=== PATIENT | female | born 1995 | race Caucasian/White ===

== ENCOUNTER 2022-05-06 16:23 | Outpatient (CLI) | payer OTHER, SELFPAY ==
[2022-05-06 17:39] LABS: Chloride* 105 mmol/L (96-114)
[2022-05-06 17:40] LABS: Sodium* 139 mmol/L (135-149)
[2022-05-06 17:41] LABS: Potassium* 4.7 mmol/L (3.6-5.1)
[2022-05-06 17:43] LABS: Alanine Aminotransferase* 36 U/L (4-35); Alkaline Phosphatase* 85 U/L (40-150); Aspartate Amino Transferase* 35 U/L (12-35); Bilirubin Total* 0.2 mg/dL (0.1-1.5); Blood Urea Nitrogen* 15 mg/dL (5-24); Carbon Dioxide* 26 mmol/L (20-32); Creatine Kinase* 270 U/L (41-117); Creatinine* 0.6 mg/dL (0.5-1.5); Estimated Glomerular Filt Rate 126.09; Glucose* 98 mg/dL (60-115); Total Protein* 6.5 g/dL (6.0-8.3)
[2022-05-06 18:14] LABS: TSH With Reflex to FT4* 0.665 uIU/mL (0.270-4.200)
[2022-05-06 18:33] LABS: Vitamin B12* 376 pg/mL (243-894)
== END 2022-05-06 16:24 | disposition home or self-care (01) ==
PROVIDERS: PCP Advanced Practice Midwife; Visit Provider Internal Medicine
DX: R53.83 Other fatigue (principal); R53.81 Other malaise; R11.0 Nausea; Z86.2 Personal history of diseases of the blood and blood-forming organs and certain disorders involving the immune mechanism
CPT/HCPCS: 80053; 82550; 82607; 83735; 84443

== ENCOUNTER 2024-07-16 09:29 | Outpatient (CLI) | payer OTHER, SELFPAY ==
--- OUTSIDE RECORDS SUMMARY | 2024-07-16 09:34 | XMS_ITS | Encounter Summary ---
Author Organization [place] Address [address] [place] [address]. [place] [address] Care Team Providers Care Tire Worker Name Role Phone No Ref-Primary, Physician Primary Care Provider Encounter Details Date Type Department Care Team (Late st Contact Info) Description 12/05/2021 Documentation Only INTERFACED REPORT Unknown, Provider Social History Tobacco Use Types Packs/Day Years Used Date Smoking Tobacco: Never Smokeless Tobacco: Never Alcohol Use Standard Drinks/Week Comments Never 0 (1 standard drink = 0.6 oz pur e alcohol) Sex and Gender Information Value Date Recorded Sex Assigned at Not on file Gender Identity Not on file Sexual Orientation Not on file COVID-19 Exposure Response Date Recorded In the last month, have you been in contact with someone who was confirmed or suspected to have Coronavirus / COVID-19? No / Unsure 12/08/2021 5:46 PM AUTO BODY REPAIR TECHNICIAN documented as of this encounter Plan of Treatment Not on file documented as of this encounter Visit Diagnoses Not on filedocumented in this encounter Care Teams Tire Worker Relationship Specialty Start Date End Date No Ref-Primary, Physician PCP - General 12/04/21 documented as of this encounter
--- OUTSIDE RECORDS SUMMARY | 2024-07-16 09:34 | XMS_ITS | Referral Summary ---
Author Organization [place] Address [address] [facility] [place] [address] Care Team Providers Care Laborer Cement Gun Placing Name Role Phone No Ref-Primary, Physician Primary Care Provider Allergies No known active allergies Medications Medication Sig Dispensed Refills Start Date End Date Status ibuprofen (ADVIL/MOTRIN) 200 MG tabletIndications:A cute appendicitis with localized peritonitis, unspecified whether abscess present, unspecified whether gangrene present, unspecified whether perforation present Take 3 tablets (600 mg) by mouth every 6 hours as needed for moderate pain 100 tablet 12/04/2021 Active Additional Information Patient not taking.Reported on 12/24/2023 acetaminophen (TYLENOL) 500 MG tabletIndications:A cute appendicitis with localized peritonitis, unspecified whether abscess present, unspecified whether gangrene present, unspecified whether perforation present Take 2 tablets (1,000 mg) by mouth every 6 hours as needed for pain 12/04/2021 Active oxyCODONE (ROXICODONE) 5 MG tabletIndications:A cute appendicitis with localized peritonitis, unspecified whether abscess present, unspecified whether gangrene present, unspecified whether perforation present Take 1-2 tablets (5-10 mg) by mouth every 4 hours as needed for moderate to severe pain 12 tablet 12/04/2021 Active Additional Information Patient not taking.Reported on 12/24/2023 sertraline (ZOLOFT) 25 MG tablet Take 12.5 mg by mouth daily Active amoxicillin (AMOXIL) 875 MG tabletIndications:S trep throat Take 1 tablet (875 mg) by mouth 2 times daily 20 tablet 12/25/2022 Active Additional Information Patient not taking.Reported on 12/24/2023 Active Problems No known active problems Social History Tobacco Use Types Packs/Day Years Used Date Smoking Tobacco: Never Smokeless Tobacco: Never Alcohol Use Standard Drinks/Week Comments Never 0 (1 standard drink = 0.6 oz pur e alcohol) Adolescent Education Answer Date Record ed Getting School Help Needed Not on file 07/23 Sex and Gender Information Value Date Recorded Sex Assigned at Not on file Gender Identity Not on file Sexual Orientation Not on file Last Filed Vital Signs Vital Sign Reading Time Taken Comments Blood Pressure 127/77 12/08/2021 5:48 PM CAP BLOCKER Pulse 88 12/24/2023 3:35 PM CAP BLOCKER Temperature 37.1 ??C (98.7 ??F) 12/24/2023 3:35 PM CS T Respiratory Rate 16 12/24/2023 3:35 PM CAP BLOCKER Oxygen Saturation 98% 12/24/2023 3:35 PM CAP BLOCKER Inhaled Oxygen Concentration - - Weight 69.3 kg (152 lb 11.2 oz) 12/24/2023 3:35 PM CAP BLOCKER Height 165.1 cm (5' 5) 12/04/2021 10:1 0 PM CAP BLOCKER Body Mass Index 25.41 12/04/2021 10:10 PM CAP BLOCKER Plan of Treatment Not on file Care Teams Laborer Cement Gun Placing Relationship Specialty Start Date End Date No Ref-Primary, Physician PCP - General 12/04/21
--- OUTSIDE RECORDS SUMMARY | 2024-07-16 09:34 | XMS_ITS | Clinical Summary ---
[facility] Address [address] [address] Care Team Providers Care Addiction Treatment Counselor Name Role Phone Arslan Mckoy MD Primary Care Provider Ladonna calderon Source Comments You are receiving this document as you are listed as the primary care provider,follow-up provider, or the patient has been referred to you for consultation.This is in compliance with the Medicare and[facility] EHR Incentive Program,which states Providers who transition their patient to another setting of careor provider of care or refers their patient to another provider of care shouldprovide summary care record for each transition of care or referral. [facility] Allergies No known active allergies Medications Medication Sig Dispensed Refills Start Date End Date Status Sejjrspx-CpZpa-MO-DHA w/o A ( + DHA OR) Active ALBUterol sulfate HFA 108 (90 Base) MCG/ACT inhaler Inhale 2 Puffs. Active polyethylene glycol (MIRALAX) packet Take 17 g by mouth. 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 age Cancer, Breast Paternal Grandmother ? age Relation Name Status Comments Father Alive Mother Alive Brother 1 Alive Brother 2 Alive Maternal Aunt Maternal Grandfather Alive Maternal Grandmother Alive Paternal Grandfather Alive Paternal Grandmother Alive Social History Tobacco Use Types Packs/Day Years Used Date Smoking Tobacco: Never Smokeless Tobacco: Never Alcohol Use Standard Drinks/Week Comments Not Currently 0 (1 standard drink = 0.6 oz pur e alcohol) Sex and Gender Information Value Date Recorded Sex Assigned at Not on file Gender Identity Not on file Sexual Orientation Not on file Last Filed Vital Signs Vital Sign Reading Time Taken Comments Blood Pressure 117/62 10/05/2018 10:40 AM FULLING MACHINE OPERATOR Pulse 76 10/05/2018 10:40 AM FULLING MACHINE OPERATOR Temperature - - Respiratory Rate - - Oxygen Saturation - - Inhaled Oxygen Concentration - - Weight 73.5 kg (162 lb) 10/05/2018 10:40 AM FULLING MACHINE OPERATOR Height 166.4 cm (5' 5.5) 10/05/2018 10:40 AM CS T Body Mass Index 26.55 10/05/2018 10:40 AM FULLING MACHINE OPERATOR Plan of Treatment Health Maintenance Due Date Last Done Comments Cervical Cancer Screening Due 1994 Hep C Screening (Preventive Services) 1994 Adult Preventive Visit 2012 DTaP/Tdap/Td (1 - Tdap) 2013 HepB (1) 2013 COVID-19 Vaccine ( - 2023-2 5 season) 2024 Influenza (#1) 2024 Zoster/Shingles (1 of 2) 2044 Chlamydia Discontinued 09/07/2018 HIV Screening (Preventive Services) Completed 09/07/2018 HPV Vaccine Aged Out No longer eligi ble based on patient's age to complete this topic HepA Aged Out No longer eligi ble based on patient's age to complete this topic Hib Aged Out No longer eligi ble based on patient's age to complete this topic IPV (Polio) Aged Out No longer eligi ble based on patient's age to complete this topic MCV4 Aged Out No longer eligi ble based on patient's age to complete this topic Pneumococcal Aged Out No longer eligi ble based on patient's age to complete this topic Procedures Procedure Name Priority Date/Time Associated Diagnosis Comments HIV-1 P24 AND HIV-1/HIV-2 ANTIBODIES Routine 09/07/2018 12:05 PM FULLING MACHINE OPERATOR Screening examination for venereal disease CHLAMYDIA & GC, URINE (14 YEARS AND OLDER) Routine 09/07/2018 11:59 AM FULLING MACHINE OPERATOR Screening examination for venereal disease from Last 3 Months or Most Recently Relevant to Health Maintenance Results * LAB HIV-1 p24 AND HIV-1/HIV-2 ANTIBODIES (09/07/2018 12:05 PM FULLING MACHINE OPERATOR) HIV-1 p24 Ag and HIV-1/HIV-2 Ab Nonreactive Nonreactive PN SOFT 09/07/2018 12:0 5 PM FULLING MACHINE OPERATOR 09/07/2018 12:16 PM FULLING MACHINE OPERATOR Narrative PN SOFT - 09/07/2018 1:26 PM FULLING MACHINE OPERATOR Performed at [address] [address] CLIA number [id number] Angela Lyons APRN, CNM LAB_1 Performing Organization Address City/[facility] Co de Phone Number PN [address] [place] [address] * CHLAMYDIA & GC, URINE (09/07/2018 11:59 AM FULLING MACHINE OPERATOR) Pathologist [facility] Urine Chlamydia STD Negative Negative PN SOFT Comment: Test Performed by Die Inspector Mediated Amplification Results obtained from this source are not FDA approved. CLIA Number [id number] Urine N. gonnorrhoeae STD Negative Negative PN SOFT Comment: Test Performed by Die Inspector Mediated Amplification Results obtained from this source are not FDA approved. Performed at [facility], [address] [place] [id number] CLIA Number [id number] 09/07/2018 11:5 9 AM FULLING MACHINE OPERATOR 09/07/2018 12:17 PM FULLING MACHINE OPERATOR Angela Lyons APRN, CNM LAB_1 Performing Organization Address City/[facility]/ZIP Co de Phone Number [address] [place] [address] from Last 3 Months or Most Recently Relevant to Health Maintenance Care Teams Addiction Treatment Counselor Relationship Specialty Start Date End Date Arslan Mckoy MD PCP - General Family Practice 09/09/17
--- OUTSIDE RECORDS SUMMARY | 2024-07-16 09:34 | XMS_ITS | Clinical Summary ---
Author Organization [place] Address [address] [facility] [place] [address] Care Team Providers Care Engraver Lettering Name Role Phone No Ref-Primary, Physician Primary [...] Comments Blood Pressure 127/77 12/08/2021 5:48 PM FINDING FASTENER Pulse 88 12/24/2023 3:35 PM FINDING FASTENER Temperature 37.1 ??C (98.7 ??F) 12/24/2023 3:35 PM CS T Respiratory Rate 16 12/24/2023 3:35 PM FINDING FASTENER Oxygen Saturation 98% 12/24/2023 3:35 PM FINDING FASTENER Inhaled Oxygen Concentration - - Weight 69.3 kg (152 lb 11.2 oz) 12/24/2023 3:35 PM FINDING FASTENER Height 165.1 cm (5' 5) 12/04/2021 10:1 0 PM FINDING FASTENER Body Mass Index 25.41 12/04/2021 10:10 PM FINDING FASTENER Plan of Treatment Health Maintenance Due Date Last Done Comments ADVANCE CARE PLANNING 1994 ANNUAL REVIEW OF HM ORDERS 1994 YEARLY PREVENTIVE VISIT 1994 HIV SCREENING 2009 HEPATITIS C SCREENING 2012 PAP 2015 DTAP/TDAP/TD IMMUNIZATION (7 - Td or Tdap) 09/25/2018 09/25/2008, 07/13/1999, 01/02/1996, Additional history exists PHQ-2 (once per calendar year) 2023 COVID-19 Vaccine ( season) 2024 INFLUENZA VACCINE (#1) 2024 HEPATITIS B IMMUNIZATION Completed 995, 02/07/1995, 1994, Additional history exists MENINGITIS IMMUNIZATION Completed 10/07/2011 HPV IMMUNIZATION Aged Out No longer e ligible based on patient's age to complete this topic Pneumococcal Vaccine: Pediatrics (0 to 5 Years) and At-Risk Patients (6 to 64 Years) Aged Out No longer eligible based on patient's age to complete this topic RSV MONOCLONAL ANTIBODY Aged Out No l onger eligible based on patient's age to complete this topic Care Teams Engraver Lettering Relationship Specialty Start Date End Date No Ref-Primary, Physician PCP - General 12/04/21
[2024-07-20 07:49] LABS: HPV Source Cervical; HPV, High Risk by TMA Not Detected
== END 2024-07-16 09:30 | disposition home or self-care (01) ==
PROVIDERS: Visit Provider Obstetrics & Gynecology
DX: R79.0 Abnormal level of blood mineral (principal); Z12.4 Encounter for screening for malignant neoplasm of cervix
CPT/HCPCS: 87624; 87625; 88141; 88142

== ENCOUNTER 2024-08-27 08:00 | Outpatient (CLI) | payer OTHER, SELFPAY ==
--- OUTSIDE RECORDS SUMMARY | 2024-08-27 08:03 | XMS_ITS | Referral Summary ---
Author Organization [place] Address [address] [facility] [place] [address] Care Team Providers Care Container Crane Operator Name Role Phone No Ref-Primary, Physician Primary Care Provider Allergies No known active allergies Medications ibuprofen (ADVIL/MOTRIN) 200 MG tabletIndication s:Acute appendicitis with localized peritonitis, unspecified whether abscess present, unspecified whether gangrene present, unspecified whether perforation present Take 3 tablets (600 mg) by mouth every 6 hours as needed for moderate pain 100 tablet 2 Active Additional Information Patient not taking.Reported on 12/24/2023 acetaminophen (TYLENOL) 500 MG tabletIndication s:Acute appendicitis with localized peritonitis, unspecified whether abscess present, unspecified whether gangrene present, unspecified whether perforation present Take 2 tablets (1,000 mg) by mouth every 6 hours as needed for pain 2 Active oxyCODONE (ROXICODONE) 5 MG tabletIndication s:Acute appendicitis with localized peritonitis, unspecified whether abscess present, unspecified whether gangrene present, unspecified whether perforation present Take 1-2 tablets (5-10 mg) by mouth every 4 hours as needed for moderate to severe pain 12 tablet 2 Active Additional Information Patient not taking.Reported on 12/24/2023 sertraline (ZOLOFT) 25 MG tablet Take 12.5 mg by mouth daily Active amoxicillin (AMOXIL) 875 MG tabletIndication s:Strep throat Take 1 tablet (875 mg) by mouth 2 times daily 20 tablet 3 Active Additional Information Patient not taking.Reported on 12/24/2023 Active Problems No known active problems Social History Tobacco Use Types Packs/Day Years Used Date Smoking Tobacco: Never Smokeless Tobacco: Never Alcohol Use Standard Drinks/Week Comments Never 0 (1 standard drink = 0.6 oz pur e alcohol) Adolescent Education Answer Date Record ed Getting School Help Needed Not on file 07/23 Comments Unknown Sex and Gender Information Value Date Recorded Sex Assigned at Not on file Legal Sex Female 11:44 PM FELLMONGERING MACHINE OPERATOR Gender Identity Not on file Sexual Orientation Not on file Last Filed Vital Signs Vital Sign Reading Time Taken Comments Blood Pressure 127/77 12/08/2021 5:48 PM FELLMONGERING MACHINE OPERATOR Pulse 88 12/24/2023 3:35 PM FELLMONGERING MACHINE OPERATOR Temperature 37.1 ??C (98.7 ??F) 12/24/2023 3:35 PM CS T Respiratory Rate 16 12/24/2023 3:35 PM FELLMONGERING MACHINE OPERATOR Oxygen Saturation 98% 12/24/2023 3:35 PM FELLMONGERING MACHINE OPERATOR Inhaled Oxygen Concentration - - Weight 69.3 kg (152 lb 11.2 oz) 12/24/2023 3:35 PM FELLMONGERING MACHINE OPERATOR Height 165.1 cm (5' 5) 12/04/2021 10:1 0 PM FELLMONGERING MACHINE OPERATOR Body Mass Index 25.41 12/04/2021 10:10 PM FELLMONGERING MACHINE OPERATOR Plan of Treatment Not on file Insurance [facility] Care Teams Container Crane Operator Relationship Specialty Start Date End Date No Ref-Primary, Physician PCP - General 12/04/21
--- OUTSIDE RECORDS SUMMARY | 2024-08-27 08:03 | XMS_ITS | Clinical Summary ---
Author Organization [place] Address [address] [facility] [place] [address] Care Team Providers Care Bookkeeping Manager Name Role Phone No Ref-Primary, Physician Primary [...] on file Legal Sex Female 11:44 PM AUTHORS MOTIVATIONAL Gender Identity Not on file Sexual Orientation Not on file Last Filed Vital Signs Vital Sign Reading Time Taken Comments Blood Pressure 127/77 12/08/2021 5:48 PM AUTHORS MOTIVATIONAL Pulse 88 12/24/2023 3:35 PM AUTHORS MOTIVATIONAL Temperature 37.1 ??C (98.7 ??F) 12/24/2023 3:35 PM CS T Respiratory Rate 16 12/24/2023 3:35 PM AUTHORS MOTIVATIONAL Oxygen Saturation 98% 12/24/2023 3:35 PM AUTHORS MOTIVATIONAL Inhaled Oxygen Concentration - - Weight 69.3 kg (152 lb 11.2 oz) 12/24/2023 3:35 PM AUTHORS MOTIVATIONAL Height 165.1 cm (5' 5) 12/04/2021 10:1 0 PM AUTHORS MOTIVATIONAL Body Mass Index 25.41 12/04/2021 10:10 PM AUTHORS MOTIVATIONAL Plan of Treatment Health Maintenance Due Date Last Done Comments ADVANCE CARE PLANNING 1994 ANNUAL REVIEW OF HM ORDERS 1994 YEARLY PREVENTIVE VISIT 1994 HIV SCREENING 2009 HEPATITIS C SCREENING 2012 PAP 2015 DTAP/TDAP/TD IMMUNIZATION (7 - Td or Tdap) 09/25/2018 09/25/2008, 07/13/1999, 01/02/1996, Additional history exists PHQ-2 (once per calendar year) 2023 COVID-19 Vaccine ( season) 2024 INFLUENZA VACCINE (#1) 2024 RSV VACCINE (1 - 1-dose 75+ series) 2069 HEPATITIS B IMMUNIZATION Completed 995, 02/07/1995, 1994, [...] on patient's age to complete this topic Insurance [facility] Care Teams Bookkeeping Manager Relationship Specialty Start Date End Date No Ref-Primary, Physician PCP - General 12/04/21
--- OUTSIDE RECORDS SUMMARY | 2024-08-27 08:03 | XMS_ITS | Clinical Summary ---
[facility] Address [address] [place] [address] Care Team Providers Care Hop Strainer Name Role Phone Arslan Mckoy MD Primary Care Provider Ladonna calderon Source Comments You are receiving this document as you are listed as the primary care provider,follow-up provider, or the patient has been referred to you for consultation.This is in compliance with the Medicare and[facility] EHR Incentive Program,which states Providers who transition their patient to another setting of careor provider of care or refers their patient to another provider of care shouldprovide summary care record for each transition of care or referral. [facility] Allergies No known active allergies Medications Medication Sig Dispensed Refills Start Date End Date Status Gwasdmwx-PxTgn-CT-DHA w/o A ( + DHA OR) Active [...] Comments Blood Pressure 117/62 10/05/2018 10:40 AM NEWS PRODUCER Pulse 76 10/05/2018 10:40 AM NEWS PRODUCER Temperature - - Respiratory Rate - - Oxygen Saturation - - Inhaled Oxygen Concentration - - Weight 73.5 kg (162 lb) 10/05/2018 10:40 AM NEWS PRODUCER Height 166.4 cm (5' 5.5) 10/05/2018 10:40 AM CS T Body Mass Index 26.55 10/05/2018 10:40 AM NEWS PRODUCER Plan of Treatment Health Maintenance Due Date [...] patient's age to complete this topic RSV Aged Out No longer eligi ble based on patient's age to complete this topic MCV4 Aged Out No longer eligi ble based on patient's age to complete this topic Pneumococcal Aged Out No longer eligi ble based on patient's age to complete this topic Procedures Procedure Name Priority Date/Time Associated Diagnosis Comments HIV-1 P24 AND HIV-1/HIV-2 ANTIBODIES Routine 09/07/2018 12:05 PM NEWS PRODUCER Screening examination for venereal disease CHLAMYDIA & GC, URINE (14 YEARS AND OLDER) Routine 09/07/2018 11:59 AM NEWS PRODUCER Screening examination for venereal disease from Last 3 Months or Most Recently Relevant to Health Maintenance Results * LAB HIV-1 p24 AND HIV-1/HIV-2 ANTIBODIES (09/07/2018 12:05 PM NEWS PRODUCER) HIV-1 p24 Ag and HIV-1/HIV-2 Ab Nonreactive Nonreactive PN SOFT 09/07/2018 12:0 5 PM NEWS PRODUCER 09/07/2018 12:16 PM NEWS PRODUCER Narrative PN SOFT - 09/07/2018 1:26 PM NEWS PRODUCER Performed at [address] [address] CLIA number [id number] Angela Lyons APRN, CNM LAB_1 Performing Organization Address [facility] de Phone Number PN [employer] [address] [place] [address] * CHLAMYDIA & GC, URINE (09/07/2018 11:59 AM NEWS PRODUCER) Urine Chlamydia STD Negative Negative PN SOFT Comment: Test Performed by Wire Setter Mediated Amplification Results obtained from this source are not FDA approved. CLIA Number [id number] Urine N. gonnorrhoeae STD Negative Negative PN SOFT Comment: Test Performed by Wire Setter Mediated Amplification Results obtained from this source are not FDA approved. Performed at [facility], [address] [place] [id number] CLIA Number [id number] 09/07/2018 11:5 9 AM NEWS PRODUCER 09/07/2018 12:17 PM NEWS PRODUCER Angela Lyons APRN, CNM LAB_1 Performing Organization Address [facility] Co de Phone Number [employer] [address] [place] [address] from Last 3 Months or Most Recently Relevant to Health Maintenance Care Teams Hop Strainer Relationship Specialty Start Date End Date Arslan Mckoy MD PCP - General Family Practice 09/09/17
--- OUTSIDE RECORDS SUMMARY | 2024-08-27 08:03 | XMS_ITS | Encounter Summary ---
Author Organization [place] Address [address] [place] [address]. [place] [address] Care Team Providers Care Nuclear Medicine Physician Name Role Phone No Ref-Primary, Physician Primary Care Provider Encounter Details Date Type Department Care Team (Late st Contact Info) Description 12/05/2021 Documentation Only INTERFACED REPORT Unknown, Provider Social History Tobacco Use Types Packs/Day Years Used Date Smoking Tobacco: Never Smokeless Tobacco: Never Alcohol Use Standard Drinks/Week Comments Never 0 (1 standard drink = 0.6 oz pur e alcohol) Comments No Sex and Gender Information Value Date Recorded Sex Assigned at Not on file Legal Sex Female 11:44 PM ELASTIC TAPE INSERTER Gender Identity Not on file Sexual Orientation Not on file COVID-19 Exposure Response Date Recorded In the last month, have you been in contact with someone who was confirmed or suspected to have Coronavirus / COVID-19? No / Unsure 12/08/2021 5:46 PM ELASTIC TAPE INSERTER documented as of this encounter Plan of Treatment Not on file documented as of this encounter Visit Diagnoses Not on filedocumented in this encounter Care Teams Nuclear Medicine Physician Relationship Specialty Start Date End Date No Ref-Primary, Physician PCP - General 12/04/21 documented as of this encounter
--- NOTE | 2024-08-27 08:15 | CRLHL7_ITS ---
For Patients: As a result of the Century Cures Act, medical imaging exams and procedure reports are released immediately into your electronic medical record. You may view this report before your referring provider. If you have questions, please contact your health care provider. INDICATION: First trimester scan, establish dates. COMPARISON: None. TECHNIQUE: Real-time mathias-scale imaging of the pelvis was performed. FINDINGS: Sonographic imaging demonstrates a twin living monochorionic/diamniotic living intrauterine gestation. Twin A: The embryo demonstrates a regular cardiac rate measuring 161 beats per minute. The embryo`s crown-rump length measurement of 1.5 cm corresponds to a gestational age of 7 weeks 6 days with a sonographic due date of 04/09/2025. There is a normal-appearing yolk sac. There are no gross abnormalities noted within the embryo at this early state of development. The gestational sac has a normal appearance. Twin B: The embryo demonstrates a regular cardiac rate measuring 154 beats per minute. The embryo`s crown-rump length measurement of 1.6 cm corresponds to a gestational age of 8 weeks 0 days with a sonographic due date of 04/08/2025. There is a normal-appearing yolk sac. There are no gross abnormalities noted within the embryo at this early state of development. The gestational sac has a normal appearance. Subchorionic hemorrhage is present measuring 1.8 x 0.8 x 0.5 cm. The cervix is closed. The myometrium appears normal. Simple right paraovarian cyst measuring 1.3 x 1.0 x 1.3 cm. Corpus luteal cyst right ovary measuring 2.7 x 1.9 x 2.2 cm. There are no suspicious fluid collections noted in the cul-de-sac. IMPRESSION: Monochorionic/diamniotic gestation. Twin A: Gestational age calculated at 7 weeks 6 days with a sonographic due date of 04/09/2025. Twin B: Gestational age calculated at 8 weeks 0 days with a sonographic due date of 04/08/2025. Subchorionic hemorrhage measures 1.8 x 0.8 x 0.5 cm. Dictated by Ned Tate MD @ 08/27/2024 10:18:52 AM (Electronically Signed)
== END 2024-08-27 08:01 | disposition home or self-care (01) ==
LOC: US 08:01
PROVIDERS: Visit Provider Midwife
DX: Z34.91 Encounter for supervision of normal pregnancy, unspecified, first trimester (principal); O30.031 Twin pregnancy, monochorionic/diamniotic, first trimester; Z3A.01 Less than 8 weeks gestation of pregnancy
CPT/HCPCS: 76817; 84439; 84443; 86592; 86703; 86704; 86706; 86762; 86787; 86803; 86850; 86900; 86901; 87086; 87340

== ENCOUNTER 2024-10-30 10:56 | Outpatient (CLI) | payer MEDICAID, SELFPAY | END 2024-10-30 10:57 | disposition home or self-care (01) | LOC: NFLDREF 10:57 | PROVIDERS: PCP Obstetrics & Gynecology; Visit Provider Obstetrics & Gynecology | DX: O99.012 Anemia complicating pregnancy, second trimester (principal) | CPT/HCPCS: 82728 ==

== ENCOUNTER 2024-12-01 10:31 | Emergency (ER) | payer MEDICAID, SELFPAY ==
--- OUTSIDE RECORDS SUMMARY | 2024-12-01 10:33 | XMS_ITS | Encounter Summary ---
Author Organization [facility] Address [address] [facility] [place] [address] Care Team Providers Care Production Control Expert Name Role Phone No Ref-Primary, Physician Primary Care Provider Reason for Referral * Diagnostic Imaging Ultrasound (Routine) - Pending Review Specialty Diagnoses / Procedures Referred By Contac t Referred To Contact Radiology. 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 [place] [address] [facility] [address] [facility] [address] [place] [address] Flower Amato MD [address] [place] [address] 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 (Primary Dx); Discordant growth in twin gestation, fetus 2 of multiple gestation; Intrauterine growth restriction affecting antepartum care of mother in first trimester, fetus 2 Social History Tobacco Use Types Packs/Day Years Used Date Smoking Tobacco: Never Smokeless Tobacco: Never Alcohol Use Standard Drinks/Week Comments Never 0 (1 standard drink = 0.6 oz pur e alcohol) Adolescent Education Answer Date Record ed Getting School Help Needed Not on file 07/23 Estimated Date of Delivery Comme nts Yes 04/07/2025 Based on last me nstrual period of 07/01/2024 Sex and Gender Information Value Date Recorded Sex Assigned at Not on file Legal Sex Female 11:44 PM CLIENT OPERATIONS MANAGER Gender Identity Not on file Sexual Orientation Not on file documented as of this encounter Progress Notes * Flower Amato MD - 11/14/2024 11:30 AM CST The patient was seen for an ultrasound in the [facility] Center at the [facility] today. For a detailed report of the ultrasound examination, please see the ultrasound report which can be found under the imaging tab. If you have questions regarding today's evaluation or if we can be of further service, please contact the Maternal- Medicine Center. Flower Amato MD Radiological Engineer, STRIP MILL OPERATOR Maternal- Medicine [phone] (Pager) NT OPERATIONS MANAGER documented in this encounter Nursing Notes * April Baker RN - 11/14/2024 11:30 AM CST Patient reports positive movement, denies contractions, leaking of fluid, or bleeding. SBAR given to [facility], see their note in Epic. NT OPERATIONS MANAGER documented in this encounter Plan of Treatment Upcoming Encounters Date Type Department Care Team (Late st Contact Info) Description 12/03/2024 2:15 PM CLIENT OPERATIONS MANAGER Appointment [facility] [place] [address] [place] [address] Nicole Núñez MD [address] [place] [address] 12/03/2024 2:45 PM CLIENT OPERATIONS MANAGER Office Visit [facility] [address] [place] [phone] Nicole Núñez MD [address] [place] [address] 12/06/2024 9:30 AM CLIENT OPERATIONS MANAGER Appointment [facility] [place] [address] [place] [phone] Nicole Núñez MD [address] [place] [address] 12/06/2024 10:00 AM CLIENT OPERATIONS MANAGER Office Visit [facility] [place] [address] [place] [phone] Nicole Núñez MD [address] [place] [address] 12/13/2024 9:30 AM CLIENT OPERATIONS MANAGER Appointment [facility] Maternal Medicine [place] [address] [place] [phone] Nicole Núñez MD [address] [place] [address] 12/13/2024 10:00 AM CLIENT OPERATIONS MANAGER Office Visit [facility] [place] [address] [place] [phone] Nicole Núñez MD [address] [place] [phone] 12/19/2024 9:30 AM CLIENT OPERATIONS MANAGER Appointment [facility] M[facility] Medicine [place] [address] [place] [phone] Nicole Núñez MD [address] [place] [address] 12/19/2024 10:00 AM CLIENT OPERATIONS MANAGER Office Visit [facility] [address] [place] [phone] Nicole Núñez MD [address] [place] [address] 12/28/2024 10:15 AM CLIENT OPERATIONS MANAGER Appointment [facility] [place] [address] [place] [phone] Diane Lopez MD [address] [place] [address] 12/28/2024 10:45 AM CLIENT OPERATIONS MANAGER Office Visit [facility] [place] [address] [place] [phone] Diane Lopez MD [address] [place] [address] 01/11/2025 10:[address] [facility] [place] [address] [place] [phone] Diane Lopez MD [address] [place] [address] 01/11/2025 10:45 AM CDT Office Visit [facility] [place] [address] [place] [phone] Diane Lopez MD [address] [place], [place] [phone] documented as of this encounter Results * MFM Twins US Comprehensive F/U (11/22/2024 11:09 AM CLIENT OPERATIONS MANAGER) Anatomical Region Laterality Modality Ultrasound 11/22/2024 9:46 AM CLIENT OPERATIONS MANAGER Impressions 11/23/2024 6:03 PM CLIENT OPERATIONS MANAGER IMPRESSION ----- Monochorionic diamniotic twin gestation at 20w 4d gestational age. Fetus 1 1. A normal bladder was visualized. 2. The amniotic fluid volume appeared normal. 3. The umbilical artery Doppler studies were normal. 4. The middle cerebral artery Doppler studies were within normal limits. 5. The ductus venosus studies were within normal limits. Fetus 2 1. A normal bladder was visualized. 2. The amniotic fluid volume appeared normal. 3. The umbilical artery Doppler studies were abnormal: Intermittent Absent End Diastolic Flow. 4. The middle cerebral artery Doppler studies were within normal limits. 5. The ductus venosus studies were within normal limits. Today's ultrasound does not support a diagnosis of twin twin transfusion syndrome or twin anemia polycythemia syndrome. Narrative 11/23/2024 6:03 PM CLIENT OPERATIONS MANAGER Surveillance US ----- Pat. Name: DEANDRE CHÁVEZ Study Date: 11/22/2024 9:46am Pat. NO: [id number] Referring MD: PAMELA CUELLAR Site: Local Hazmat Driver: José Miguel CastellonSUSAN garcía : 1995 Age: 29 ----- INDICATION ----- Monochorionic-Diamniotic Twin Gestation Selective Growth Restriction (FGR) fetus 2 Circumvallate placenta METHOD ----- Transabdominal ultrasound examination. View: Sufficient. ----- Twin . Number of fetuses: 2. Monochorionic-diamniotic DATING ----- Date Details Gest. age TOMMIE LMP 07/01/2024 20 w + 4 d 04/07/2025 Previous U/S 08/27/2024 GA, GA 7 w + 6 d 20 w + 2 d 04/09/2025 Assigned dating based on the LMP, selected on 11/22/2024 20 w + 4 d 04/07/2025 Fetus 1: GENERAL EVALUATION ----- Cardiac activity present. FHR 145 bpm. movements: visualized. Presentation: cephalic, maternal left, presenting Placenta: Anterior, no previa, > 2 cm from internal os, thin dividing membrane, circumvallate placenta Umbilical cord: previously studied Amniotic fluid: Amount of AF: normal. MVP 5.0 cm Fetus 2: GENERAL EVALUATION ----- Cardiac activity present. FHR 158 bpm. movements: visualized. Presentation: breech, maternal right Placenta: Anterior, no previa, > 2 cm from internal os, thin dividing membrane, circumvallate placenta Umbilical cord: previously studied Amniotic fluid: Amount of AF: normal. MVP 5.5 cm Fetus 1: DOPPLER ----- Umbilical Artery: normal PI 1.19 38% Ramírez HR 145 bpm Mid Cerebral Artery: normal PS 31.30 cm/s PS 1.20 MoM Fetus 2: DOPPLER ----- Umbilical Artery: abnormal, Intermittent Absent End Diastolic Flow PI 1.43 81% Ramírez HR 160 bpm Mid Cerebral Artery: normal PS 32.15 cm/s PS 1.23 MoM Fetus 1: TTTS ASSESSMENT ----- Cardiac activity: present Placental location: ... Placental cord insertion: ... bladder: normal hydrops: No MVP: 5 cm MCA PSV: 31.3 cm/s MCA MoM: 1.2 UA PI: 1.19, 38% Ductus Venosus: normal Fetus 2: TTTS ASSESSMENT ----- Cardiac activity: present Placental location: ... Placental cord insertion: ... bladder: normal hydrops: No MVP: 5.5 cm MCA PSV: 32.15 cm/s MCA MoM: 1.23 UA PI: 1.43, 81% Ductus Venosus: normal RECOMMENDATION ----- Thank-you for referring your patient to assess for surveillance due to monochorionic twin with selective growth restriction of fetus 2. We discussed the findings on today's ultrasound with the patient. Findings are stable today with intermittent AEDF on umbilical artery Doppler studies for fetus 2. Pediatric cardiology echocardiograms are scheduled on 11/30/24. Will plan for continued weekly surveillance at this time given stable findings and growth ultrasound in 2 weeks. We discussed the plan as outlined by Dr. Amato on 11/14/24, and Deandre and her desire to proceed as previously outlined. Return to primary provider for continued care. If you have questions regarding today's evaluation or if we can be of further service, please contact the Maternal- Medicine Center. anomalies may be present but not detected I spent a total of 15 minutes (excluding the ultrasound interpretation) on the date of this encounter including preparing to see the patient (reviewing medical records/tests), in direct [id number] contact with the patient counseling and discussing the plan of care, documenting the visit in the electronic medical record, and communicating with other health care partner and/or care coordination. Procedure Note Nicole Núñez MD - 11/23/2024 Surveillance ----- Pat. Name: DEANDRE CHÁVEZ Study Date: 11/22/2024 9:46am Pat. NO: [id number] Referring MD: PAMELA CUELLAR Site: Local Hazmat Driver: José Miguel Hussein RDMS : 1995 Age: 29 ----- INDICATION ----- Monochorionic-Diamniotic Twin Gestation Selective Growth Restriction (FGR) fetus 2 Circumvallate placenta METHOD ----- Transabdominal ultrasound examination. View: Sufficient. ----- Twin . Number of fetuses: 2. Monochorionic-diamniotic DATING ----- DateDetailsGest. age TOMMIE LMP w + 4 d 04/07/2025 Previous U/S 08/27/2024 GA, GA7 w + 6 d20 w + 2 d 04/09/2025 Assigned dating based on the LMP, selected on w + 4 d 04/07/2025 Fetus 1: GENERAL EVALUATION ----- Cardiac activity present. FHR 145 bpm. movements: visualized.Presentation: cephalic, maternal left, presenting Placenta: Anterior, no previa, > 2 cm from internal os, thin dividingmembrane, circumvallate placenta Umbilical cord: previously studied Amniotic fluid: Amount of AF: normal. MVP 5.0 cm Fetus 2: GENERAL EVALUATION ----- Cardiac activity present. FHR 158 bpm. movements: visualized.Presentation: breech, maternal right Placenta: Anterior, no previa, > 2 cm from internal os, thin dividingmembrane, circumvallate placenta Umbilical cord: previously studied Amniotic fluid: Amount of AF: normal. MVP 5.5 cm Fetus 1: DOPPLER ----- Umbilical Artery: normal PI 1.1938%Ramírez HR 145bpm Mid Cerebral Artery: normal PS 31.30cm/s PS 1.20MoM Fetus 2: DOPPLER ----- Umbilical Artery: abnormal, Intermittent Absent End Diastolic Flow PI 1.4381%Ramírez HR 160bpm Mid Cerebral Artery: normal PS 32.15cm/s PS 1.23MoM Fetus 1: TTTS ASSESSMENT ----- Cardiac activity: present Placental location: ... Placental cord insertion: ... bladder: normal hydrops: No MVP: 5 cm MCA PSV: 31.3 cm/s MCA MoM: 1.2 UA PI: 1.19, 38% Ductus Venosus: normal Fetus 2: TTTS ASSESSMENT ----- Cardiac activity: present Placental location: ... Placental cord insertion: ... bladder: normal hydrops: No MVP: 5.5 cm MCA PSV: 32.15 cm/s MCA MoM: 1.23 UA PI: 1.43, 81% Ductus Venosus: normal RECOMMENDATION ----- Thank-you for referring your patient to assess for surveillance due tomonochorionic twin with selective growth restriction offetus 2. We discussed the findings on today's ultrasound with the patient. Findingsare stable today with intermittent AEDF on umbilical artery Dopplerstudies for fetus 2. Pediatric cardiology echocardiograms are scheduled on 11/30/24. Will planfor continued weekly surveillance at this time given stable findings andgrowth ultrasound in 2 weeks. We discussed the plan as outlined by Dr. Amato on 11/14/24, and Irenend her desire to proceed as previously outlined. Return to primary provider for continued care. If you have questions regarding today's evaluation or if we can be offurther service, please contact the Maternal[facility] Medicine Center. anomalies may be present but not detected I spent a total of 15 minutes (excluding the ultrasound interpretation) onthe date of this encounter including preparing to see the patient(reviewing medical records/tests), in direct [id number] contact with the patient counseling and discussingthe plan of care, documenting the visit in the electronic medical record,and communicating with other health care partner and/or care coordination. IMPRESSION ----- Monochorionic diamniotic twin gestation at 20w 4d gestational age. Fetus 1 1. A normal bladder was visualized. 2. The amniotic fluid volume appeared normal. 3. The umbilical artery Doppler studies were normal. 4. The middle cerebral artery Doppler studies were within normal limits. 5. The ductus venosus studies were within normal limits. Fetus 2 1. A normal bladder was visualized. 2. The amniotic fluid volume appeared normal. 3. The umbilical artery Doppler studies were abnormal: Intermittent AbsentEnd Diastolic Flow. 4. The middle cerebral artery Doppler studies were within normal limits. 5. The ductus venosus studies were within normal limits. Today's ultrasound does not support a diagnosis of twin twin transfusionsyndrome or twin anemia polycythemia syndrome. us Flower Amato MD [facility] ORDERABLES Edited Re sult - Final documented in this encounter Visit Diagnoses Diagnosis 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- Primary Discordant growth in twin gestation, fetus 2 of multiple gestation Intrauterine growth restriction affecting antepartum care of mother in first trimester, fetus 2 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 documented in this encounter Care Teams Production Control Expert Relationship Specialty Start Date End Date No Ref-Primary, Physician PCP - General 12/04/21 documented as of this encounter
--- OUTSIDE RECORDS SUMMARY | 2024-12-01 10:33 | XMS_ITS | Encounter Summary ---
Author Organization [facility] Address [address] [place] [address] Care Team Providers Care Bartender Manager Name Role Phone No Ref-Primary, Physician Primary Care Provider Reason for Referral * Diagnostic Imaging Ultrasound (Routine) - Pending Review Specialty Diagnoses / Procedures Referred By Johnsonac maxx Referred To Contact Radiology. Diagnoses Monochorionic diamniotic twin gestation Procedures MFM Twins Diane Montez MD [address] [place] [address] Phone: tel: fax: Referral ID Status Reason Start Date Expiration Date V isits Requested Visits Authorized [id number] Pending Review 10/19/2024 10/19/2025 1 1 RVISOR INSPECTION AND TESTING Reason for Visit * Diagnostic Imaging Ultrasound (Routine) - Pending Review Specialty Diagnoses / Procedures Referred By Noa lilly Referred To Contact Radiology. Diagnoses Monochorionic diamniotic twin gestation Procedures MFM Twins Diane Montez MD [address] [place] [address] Phone: tel: fax: Referral ID Status Reason Start Date Expiration Date V isits Requested Visits Authorized [id number] Pending Review 10/19/2024 10/19/2025 1 1 Encounter Details Date Type Department Care Team (Latest Contact Info) Description 11/14/2024 10:09 AM SUPERVISOR INSPECTION AND TESTING - 11/14/2024 11:59 PM SUPERVISOR INSPECTION AND TESTING Hospital Encounter [facility] [place] [address] [place] [address] Flower Amato MD [address] [facility] [address] [place] [address] 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 Discharge Disposition: Home or Self Care Social History Tobacco Use Types Packs/Day Years [...] on file Legal Sex Female 11:44 PM SUPERVISOR INSPECTION AND TESTING Gender Identity Not on file Sexual Orientation Not on file documented as of this encounter Medications at Time of Discharge acetaminophen (TYLENOL) 500 MG tabletIndications: Acute appendicitis with localized peritonitis, unspecified whether abscess present, unspecified whether gangrene present, unspecified whether perforation present Take 2 tablets (1,000 mg) by mouth every 6 hours as needed for pain 12/04/2021 amoxicillin (AMOXIL) 875 MG tabletIndications: Strep throat Take 1 tablet (875 mg) by mouth 2 times daily 20 tablet 12/25/2022 ibuprofen (ADVIL/MOTRIN) 200 MG tabletIndications: Acute appendicitis with localized peritonitis, unspecified whether abscess present, unspecified whether gangrene present, unspecified whether perforation present Take 3 tablets (600 mg) by mouth every 6 hours as needed for moderate pain 100 tablet 12/04/2021 oxyCODONE (ROXICODONE) 5 MG tabletIndications: Acute appendicitis with localized peritonitis, unspecified whether abscess present, unspecified whether gangrene present, unspecified whether perforation present Take 1-2 tablets (5-10 mg) by mouth every 4 hours as needed for moderate to severe pain 12 tablet 12/04/2021 sertraline (ZOLOFT) 25 MG tablet Take 12.5 mg by mouth daily documented as of this encounter Plan of Treatment Upcoming Encounters Date Type Department Care Team (Late st Contact Info) Description 12/03/2024 2:15 PM SUPERVISOR INSPECTION AND TESTING Appointment [facility] [place] [address] [place] [phone] Nicole Núñez MD [address] [place] [phone] 12/03/2024 2:45 PM SUPERVISOR INSPECTION AND TESTING Office Visit [facility] [address] [place] [phone] Nicole Núñez MD [address] [place] [phone] 12/06/2024 9:30 AM SUPERVISOR INSPECTION AND TESTING Appointment [facility] [address] [place] [phone] Nicole Núñez MD [address] [place] [address] 12/06/2024 10:00 AM SUPERVISOR INSPECTION AND TESTING Office Visit [facility] [address] [place] [phone] Nicole Núñez MD [address] [place] [address] 12/13/2024 9:30 AM SUPERVISOR INSPECTION AND TESTING Appointment [facility] [address] [place] [phone] Nicole Núñez MD [address] [place] [address] 12/13/2024 10:00 AM SUPERVISOR INSPECTION AND TESTING Office Visit [facility] [place] [address] [place] [phone] Nicole Núñez MD [address] [place] [address] 12/19/2024 9:30 AM SUPERVISOR INSPECTION AND TESTING Appointment [facility] [place] [address] [place] [phone] Nicole Núñez MD [address] [place] [address] 12/19/2024 10:00 AM SUPERVISOR INSPECTION AND TESTING Office Visit [facility] [place] [address] [place] [phone] Nicole Núñez MD [address] [place] [address] 12/28/2024 10:15 AM SUPERVISOR INSPECTION AND TESTING Appointment [facility] [place] [address] [place] [phone] iDane Lopez MD [address] [address] 12/28/2024 10:45 AM SUPERVISOR INSPECTION AND TESTING Office Visit [facility] [place] [address] [place] [phone] Diane Lopez MD [address] [place] [address] 01/11/2025 10:15 AM CDT Appointment [facility] [place] [address] [place] [phone] Diane Lopez MD [address] [place] [address] 01/11/2025 10:45 AM CDT Office Visit [facility] [place] [address] [place] [address] Diane Lopez MD [address] [place], [place] [phone] documented as of this encounter Procedures Procedure Name Priority Date/Time Associated Diagnosis Comments MFM TWINS US COMPREHENSIVE Routine 11/14/2024 11:59 AM SUPERVISOR INSPECTION AND TESTING 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 documented in this encounter Results * MFM Twins US Comprehensive (11/14/2024 11:59 AM SUPERVISOR INSPECTION AND TESTING) Anatomical Region Laterality Modality Ultrasound 11/14/2024 10:2 4 AM SUPERVISOR INSPECTION AND TESTING Impressions 11/14/2024 4:40 PM SUPERVISOR INSPECTION AND TESTING IMPRESSION ----- Monochorionic diamniotic twin gestation at 19w 3d gestational age with 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 Fetus 1 1. No anomalies commonly detected by ultrasound were identified in the detailed anatomic survey within the limits of ultrasound. 2. Growth parameters and estimated weight were consistent with gestational age predicted by assigned TOMMIE. 3. The amniotic fluid volume appeared normal. A normal bladder was visualized. 4. The umbilical artery Doppler studies were within normal limits. 5. The middle cerebral artery Doppler studies were within normal limits. 6. The ductus venosus studies were within normal limits. Fetus 2 1. No anomalies commonly detected by ultrasound were identified in the detailed anatomic survey within the limits of ultrasound, however some views were suboptimal, as described above. 2. Growth parameters and estimated weight were consistent with selective growth restriction with an EFW at the 2nd%. The inter-twin discordance was 30.6 %. 3. The amniotic fluid volume appeared normal. A normal bladder was visualized. 4. The umbilical artery Doppler studies were abnormal: Absent End Diastolic Flow. 5. The middle cerebral artery Doppler studies were within normal limits. 6. The ductus venosus studies were within normal limits. 7. Previously noted marginal cord insertion is now normal. The placenta is posterior and circumvallate. On transabdominal imaging the cervix appears long and closed. Today's ultrasound does not support a diagnosis of twin twin transfusion syndrome or twin anemia polycythemia syndrome. Narrative 11/14/2024 4:40 PM SUPERVISOR INSPECTION AND TESTING Comprehensive ----- Pat. Name: HEATHER CHÁVEZ Study Date: 11/14/2024 10:24am Pat. NO: [id number] Referring MD: PAMELA CUELLAR Site: [employer] Mushroom: Emerita Corona RDMS : 1995 Age: 29 ----- INDICATION ----- Monochorionic, Diamniotic Fetus 2 with selective growth restriction METHOD ----- Transabdominal ultrasound examination. View: Sufficient. ----- Twin . Number of fetuses: 2. Monochorionic-diamniotic DATING ----- Date Details Gest. age TOMMIE LMP 07/01/2024 19 w + 3 d 04/07/2025 Previous U/S 08/27/2024 GA, GA 7 w + 6 d 19 w + 1 d 04/09/2025 U/S Fetus 1 11/14/2024 based upon AC, BPD, Femur, HC 19 w + 6 d 04/04/2025 U/S Fetus 2 based upon AC, BPD, Femur, HC 18 w + 3 d 04/14/2025 Assigned dating based on the LMP, selected on 10/19/2024 19 w + 3 d 04/07/2025 Fetus 1: GENERAL EVALUATION ----- Cardiac activity present. FHR 146 bpm. movements: present. Presentation: transverse with head to maternal right, maternal left, superior Placenta: posterior, thin dividing membrane, no previa > 2 cm from internal os. Circumvallate placenta Umbilical cord: Cord vessels: 3 vessel cord. Insertion site: normal insertion Amniotic fluid: Amount of AF: normal. MVP 5.6 cm Fetus 2: GENERAL EVALUATION ----- Cardiac activity present. FHR 148 bpm. movements: present. Presentation: cephalic, PRESENTING, maternal right Placenta: posterior, thin dividing membrane. Circumvallate placenta Umbilical cord: Cord vessels: 3 vessel cord. Insertion site: normal insertion Amniotic fluid: Amount of AF: normal. MVP 3.2 cm Fetus 1: BIOMETRY ----- BPD 47.3 mm 20w 2d Hadlock OFD 58.8 mm 19w 1d Nicolaides HC 168.5 mm 19w 3d Hadlock Cerebellum tr 20.1 mm 19w 1d Nicolaides Nuchal fold 5.2 mm AC 154.8 mm 20w 5d 83% Hadlock Femur 29.0 mm 18w 6d Hadlock Humerus 28.7 mm 19w 2d Manav Weight Calculation: EFW 316 g 68% Hadlock EFW (lb,oz) 0 lb 11 oz EFW by Hadlock ([id number]) EFW discordance 30.6 % Head / Face / Neck Biometry: Property Maintenance Supervisor 6.9 mm CM 2.6 mm Nasal bone 7.8 mm Fetus 2: BIOMETRY ----- BPD 42.9 mm 19w 0d Hadlock OFD 55.1 mm 18w 2d Nicolaides HC 156.8 mm 18w 4d Hadlock Cerebellum tr 18.1 mm 18w 0d Nicolaides Nuchal fold 3.0 mm AC 128.0 mm 18w 3d 15% Hadlock Femur 24.5 mm 17w 3d Hadlock Humerus 23.5 mm 17w 2d Manav Weight Calculation: EFW 219 g 2% Hadlock EFW (lb,oz) 0 lb 8 oz EFW by Hadlock ([id number]) EFW discordance 30.6 % Head / Face / Neck Biometry: Property Maintenance Supervisor 6.8 mm CM 4.4 mm Extremities / Bony Struc Biometry: Rt Humerus 23.7 mm 17w 2d Manav Rt Radius 21.1 mm 6% Valadez Rt Ulna 23.0 mm 8% Valadez Lt Humerus 23.5 mm 17w 2d Manav Lt Radius 19.9 mm 2% Valadez Lt Ulna 22.4 mm 5% Valadez Rt Femur 24.5 mm 17w 3d Hadlock Rt Tibia 22.8 mm 16% Valadez Rt Fibula 22.4 mm 15% Valadez Rt Foot 26.5 mm Lt Femur 24.6 mm 17w 3d Hadlock Lt Tibia 23.1 mm 18% Valadez Lt Fibula 23.7 mm 23% Valadez Lt Foot 27.0 mm Fetus 1: ANATOMY ----- The following structures appear normal: Head / Neck Cranium. Head size. Head shape. Lateral ventricles. Choroid plexus. Midline falx. Cavum septi pellucidi. Cerebellum. Cisterna magna. Parenchyma. Thalami. Vermis. Neck. Nuchal fold. Face Lips. Profile. Nose. Maxilla. Mandible. Orbits. Lens. Heart / Thorax 4-chamber view. RVOT view. LVOT view. 3-vessel view. 4-ckdbbj-okulryy view. Situs. Aortic arch view. Bicaval view. Ductal arch view. Superior vena cava. Inferior vena cava. Cardiac position. Cardiac size. Cardiac rhythm. Right lung. Left lung. Diaphragm. Abdomen Abdom. wall. Cord insertion. Stomach. Kidneys. Bladder. Liver. Bowel. Genitals. Spine Cervical spine. Thoracic spine. Lumbar spine. Sacral spine. Extremities / Skeleton Arms. Right arm. Right hand. Left arm. Left hand. Legs. Right leg. Right foot. Left leg. Left foot. sex: female. Fetus 2: ANATOMY ----- The following structures appear normal: Head / Neck Cranium. Head size. Head shape. Lateral ventricles. Choroid plexus. Midline falx. Cerebellum. Cisterna magna. Parenchyma. Thalami. Vermis. Neck. Nuchal fold. Face Lips. Heart / Thorax 3-vessel view. Situs. Bicaval view. Ductal arch view. Superior vena cava. Inferior vena cava. Cardiac position. Cardiac size. Right lung. Left lung. Diaphragm. Abdomen Abdom. wall. Cord insertion. Stomach. Kidneys. Bladder. Liver. Bowel. Genitals. Spine Cervical spine. Thoracic spine. Lumbar spine. Sacral spine. Extremities / Skeleton Arms. Right hand. Left hand. Legs. Right foot. Left foot. The following structures could not be adequately visualized: Head / Neck Cavum septi pellucidi. Face Profile. Nose. Maxilla. Mandible. Orbits. Lens. Heart / Thorax 4-chamber view. RVOT view. LVOT view. 3-olrxvx-wubchue view. Aortic arch view. sex: female. Fetus 1: DOPPLER ----- Umbilical Artery: normal PI 1.42 72% Ramírez HR 146 bpm Mid Cerebral Artery: normal PI 0.55 RI 0.45 PS 66.54 cm/s PS 2.68 MoM ED 36.31 cm/s CPR PI 0.39 Right Mid Cerebral Artery: TAmax 54.84 cm/s MD 34.75 cm/s S / D 1.83 HR 168 bpm Ductus Venosus: Forward flow Fetus 2: DOPPLER ----- Umbilical Artery: abnormal, Absent End Diastolic Flow Mid Cerebral Artery: normal PS 33.44 cm/s PS 1.35 MoM Ductus Venosus: Forward flow MATERNAL STRUCTURES ----- Cervix Visualized Appearance: Appears Closed Approach - Transabdominal: Cervical length 41.8 mm Right Ovary Visualized Left Ovary Visualized RECOMMENDATION ----- Thank-you for referring your patient for a comprehensive ultrasound. I discussed the findings on today's ultrasound with the patient. I discussed the findings on today's ultrasound with the patient. First we reviewed that there continues to be selective growth restriction of Fetus 2. Selective growth restriction can complicate up to 10-15% of MCDA twin pregnancies due to the changing volume and direction of flow through the placental vascular anastomoses and is stratified into different subtypes with different prognoses dependent on the subtype. 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 We discussed that in the context of normal fluid volumes and no evidence of reversed flow or an abnormal ductus venosus we would recommend close ongoing surveillance at least weekly with our office. Prior to 24 weeks if there were to be progressive deterioration (reversed flow/abnormal ductus) then there could be consideration of selection reduction versus ongoing expectant management. They are understanding of the risks in this circumstance of single or double intrauterine demise as well as a the potential for associated neurodevelopmental impacts if Fetus 1 were to survive the loss of Fetus 2. We also reviewed that after viability if there were to be deterioration in the umbilical artery flow hospitalization and/or delivery may be recommended. We reviewed that if there is stable absent end diastolic flow then very close ongoing expectant management is the recommendation. She was again offered referral to [facility] for a second opinion/discussion about options in the event of further deterioration which they are not interested in at this time but know it remains available to them. Weekly follow-up is currently scheduled. She is scheduled for echocardiograms with pediatric cardiology on 11/30. Return to primary provider for continued care. If you have questions regarding today's evaluation or if we can be of further service, please contact the [facility]. anomalies may be present but not detected I spent a total of 30 minutes (excluding the ultrasound interpretation) on the date of this encounter including preparing to see the patient (reviewing medical records/tests), in direct [id number] contact with the patient counseling and discussing the plan of care, documenting the visit in the electronic medical record, and communicating with other health childcare center administrator and/or care coordination. Please see note for details. Procedure Note Flower Amato MD - 11/14/2024 Comprehensive ----- Pat. Name: HEATHER CHÁVEZ Study Date: 11/14/2024 10:24am Pat. NO: [id number] Referring MD: PAMELA CUELLAR Site: [employer] Mushroom: Emerita Corona RDMS : 1995 Age: 29 ----- INDICATION ----- Monochorionic, Diamniotic Fetus 2 with selective growth restriction METHOD ----- Transabdominal ultrasound examination. View: Sufficient. ----- Twin . Number of fetuses: 2. Monochorionic-diamniotic DATING ----- DateDetailsGest. age TOMMIE LMP w + 3 d 04/07/2025 Previous U/S 08/27/2024 GA, GA7 w + 6 d19 w + 1 d 04/09/2025 U/S Fetus 1 11/14/2024 basedupon AC, BPD, Femur, HC 19w + 6 d 04/04/2025 U/S Fetus 2based upon AC, BPD, Femur, HC18 w + 3 d 04/14/2025 Assigned dating based on the LMP, selected on w + 3 d 04/07/2025 Fetus 1: GENERAL EVALUATION ----- Cardiac activity present. FHR 146 bpm. movements: present.Presentation: transverse with head to maternal right, maternal left,superior Placenta: posterior, thin dividing membrane, no previa > 2 cm frominternal os. Circumvallate placenta Umbilical cord: Cord vessels: 3 vessel cord. Insertion site: normalinsertion Amniotic fluid: Amount of AF: normal. MVP 5.6 cm Fetus 2: GENERAL EVALUATION ----- Cardiac activity present. FHR 148 bpm. movements: present.Presentation: cephalic, PRESENTING, maternal right Placenta: posterior, thin dividing membrane. Circumvallate placenta Umbilical cord: Cord vessels: 3 vessel cord. Insertion site: normalinsertion Amniotic fluid: Amount of AF: normal. MVP 3.2 cm Fetus 1: BIOMETRY ----- BPD 47.3mm 20w 2dHadlock OFD 58.8mm 19w 1dNicolaides HC 168.5mm 19w 3dHadlock Cerebellum tr 20.1mm 19w 1dNicolaides Nuchal fold 5.2mm AC 154.8mm 20w 5d 83%Hadlock Femur 29.0mm 18w 6dHadlock Humerus 28.7mm 19w 2dJeanty Weight Calculation: EFW 316g 68%Hadlock EFW (lb,oz) 0 lb 11oz EFW by Hadlock([id number]) EFW discordance 30.6% Head / Face / Neck Biometry: Property Maintenance Supervisor 6.9mm CM 2.6mm Nasal bone 7.8mm Fetus 2: BIOMETRY ----- BPD 42.9mm 19w 0dHadlock OFD 55.1mm 18w 2dNicolaides HC 156.8mm 18w 4dHadlock Cerebellum tr 18.1mm 18w 0dNicolaides Nuchal fold 3.0mm AC 128.0mm 18w 3d 15%Hadlock Femur 24.5mm 17w 3dHadlock Humerus 23.5mm 17w 2dJeanty Weight Calculation: EFW 219g 2%Hadlock EFW (lb,oz) 0 lb 8oz EFW by Hadlock([id number]) EFW discordance 30.6% Head / Face / Neck Biometry: Property Maintenance Supervisor 6.8mm CM 4.4mm Extremities / Bony Struc Biometry: Rt Humerus 23.7mm 17w 2dJeanty Rt Radius 21.1mm 6%Valadez Rt Ulna 23.0mm 8%Valadez Lt Humerus 23.5mm 17w 2dJeanty Lt Radius 19.9mm 2%Valadez Lt Ulna 22.4mm 5%Valadez Rt Femur 24.5mm 17w 3dHadlock Rt Tibia 22.8mm 16%Valadez Rt Fibula 22.4mm 15%Valadez Rt Foot 26.5mm Lt Femur 24.6mm 17w 3dHadlock Lt Tibia 23.1mm 18%Valadez Lt Fibula 23.7mm 23%Valadez Lt Foot 27.0mm Fetus 1: ANATOMY ----- The following structures appear normal: Head / Neck Cranium. Head size. Head shape.Lateral ventricles. Choroid plexus. Midline falx. Cavum septi pellucidi.Cerebellum. Cisterna magna. Parenchyma. Thalami. Vermis. Neck. Nuchal fold. Face Lips. Profile. Nose. Maxilla.Mandible. Orbits. Lens. Heart / Thorax 4-chamber view. RVOT view. LVOT view.3-vessel view. 1-dhqvvj-ljzfkgb view. Situs. Aortic arch view. Bicavalview. Ductal arch view. Superior vena cava. Inferior vena cava.Cardiac position. Cardiac size. Cardiac rhythm. Right lung. Left lung.Diaphragm. Abdomen Abdom. wall. Cord insertion. Stomach.Kidneys. Bladder. Liver. Bowel. Genitals. Spine Cervical spine. Thoracic spine.Lumbar spine. Sacral spine. Extremities / Skeleton Arms. Right arm. Right hand. Left arm.Left hand. Legs. Right leg. Right foot. Left leg. Left foot. sex: female. Fetus 2: ANATOMY ----- The following structures appear normal: Head / Neck Cranium. Head size. Head shape.Lateral ventricles. Choroid plexus. Midline falx. Cerebellum. Cisternamagna. Parenchyma. Thalami. Vermis. Neck. Nuchal fold. Face Lips. Heart / Thorax 3-vessel view. Situs. Bicaval view.Ductal arch view. Superior vena cava. Inferior vena cava. Cardiacposition. Cardiac size. Right lung. Left lung.Diaphragm. Abdomen Abdom. wall. Cord insertion. Stomach.Kidneys. Bladder. Liver. Bowel. Genitals. Spine Cervical spine. Thoracic spine.Lumbar spine. Sacral spine. Extremities / Skeleton Arms. Right hand. Left hand. Legs. Rightfoot. Left foot. The following structures could not be adequately visualized: Head / Neck Cavum septi pellucidi. Face Profile. Nose. Maxilla. Mandible.Orbits. Lens. Heart / Thorax 4-chamber view. RVOT view. LVOT view.0-mwaisy-gpulmmy view. Aortic arch view. sex: female. Fetus 1: DOPPLER ----- Umbilical Artery: normal PI 1.4272% Ramírez HR 146bpm Mid Cerebral Artery: normal PI 0.55 RI 0.45 PS 66.54cm/s PS 2.68MoM ED 36.31cm/s CPR PI 0.39 Right Mid Cerebral Artery: TAmax 54.84cm/s MD 34.75cm/s S / D 1.83 HR 168bpm Ductus Venosus: Forward flow Fetus 2: DOPPLER ----- Umbilical Artery: abnormal, Absent End Diastolic Flow Mid Cerebral Artery: normal PS 33.44cm/s PS 1.35MoM Ductus Venosus: Forward flow MATERNAL STRUCTURES ----- Cervix Visualized Appearance: Appears Closed Approach - Transabdominal:Cervical length 41.8 mm Right Ovary Visualized Left Ovary Visualized RECOMMENDATION ----- Thank-you for referring your patient for a comprehensive ultrasound. I discussed the findings on today's ultrasound with the patient. I discussed the findings on today's ultrasound with the patient. First wereviewed that there continues to be selective growth restriction ofFetus 2. Selective growth restriction can complicate up to 10-15% of MCDA twin pregnanciesdue to the changing volume and direction of flow through the placentalvascular anastomoses and is stratified into different subtypes with different prognosesdependent on the subtype. 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 We discussed that in the contextof normal fluid volumes and no evidence of reversed flow or an abnormalductus venosus we would recommend close ongoing surveillance at least weekly with our office.Prior to 24 weeks if there were to be progressive deterioration (reversedflow/abnormal ductus) then there could be consideration of selection reduction versus ongoingexpectant management. They are understanding of the risks in thiscircumstance of single or double intrauterine demise as well as a the potential for associatedneurodevelopmental impacts if Fetus 1 were to survive the loss of Fetus2. We also reviewed that after viability if there were to be deterioration inthe umbilical artery flow hospitalization and/or delivery may berecommended. We reviewed that if there is stable absent end diastolic flow then very close ongoingexpectant management is the recommendation. She was again offered referralto [place] for a second opinion/discussion about options in the event of furtherdeterioration which they are not interested in at this time but know itremains available to them. Weekly follow-up is currently scheduled. She is scheduled for fetalechocardiograms with pediatric cardiology on 11/30. Return to primary provider for continued care. If you have questions regarding today's evaluation or if we can be offurther service, please contact the [facility]. anomalies may be present but not detected I spent a total of 30 minutes (excluding the ultrasound interpretation) onthe date of this encounter including preparing to see the patient(reviewing medical records/tests), in direct [id number] contact with the patient counseling and discussingthe plan of care, documenting the visit in the electronic medical record,and communicating with other health childcare center administrator and/or care coordination. Please see note for details. IMPRESSION ----- Monochorionic diamniotic twin gestation at 19w 3d gestational age with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 Fetus 1 1. No anomalies commonly detected by ultrasound were identified inthe detailed anatomic survey within the limits of prenatalultrasound. 2. Growth parameters and estimated weight were consistent withgestational age predicted by assigned TOMMIE. 3. The amniotic fluid volume appeared normal. A normal bladder wasvisualized. 4. The umbilical artery Doppler studies were within normal limits. 5. The middle cerebral artery Doppler studies were within normal limits. 6. The ductus venosus studies were within normal limits. Fetus 2 1. No anomalies commonly detected by ultrasound were identified inthe detailed anatomic survey within the limits of prenatalultrasound, however some views were suboptimal, as described above. 2. Growth parameters and estimated weight were consistent withselective growth restriction with an EFW at the 2nd%. The inter-twindiscordance was 30.6 %. 3. The amniotic fluid volume appeared normal. A normal bladder wasvisualized. 4. The umbilical artery Doppler studies were abnormal: Absent EndDiastolic Flow. 5. The middle cerebral artery Doppler studies were within normal limits. 6. The ductus venosus studies were within normal limits. 7. Previously noted marginal cord insertion is now normal. The placenta is posterior and circumvallate. On transabdominal imaging thecervix appears long and closed. Today's ultrasound does not support a diagnosis of twin twin transfusionsyndrome or twin anemia polycythemia syndrome. 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
--- OUTSIDE RECORDS SUMMARY | 2024-12-01 10:33 | XMS_ITS | Data Portability ---
Author Organization [place] - [facility], [employer] - [employer]MENT SET UP OPERATOR [employer]RA [employer] AN Address [address] [place] [address] Assessment Encounter Date Assessment Date Assessment LastModified by Organization Details LastModified Time 10/30/2024 10/30/2024 ASSESSMENT: Patient is a good candidate for conservative care and the prognosis is for a favorable outcome that achieves the patients' goals. We discussed etiology, activity modifications, home care, and other treatment options. Initially, it is recommended that the patient receive in-office treatment 1 times per week for 8 weeks at which time a re-evaluation will be performed to determine an appropriate change in plan. Initially, treatment will focus on joint manipulation to restore range of motion and reduce pain. We will slowly progress to therapeutic exercises and activities to improve function, strength, and stability may also be used as warranted. If the patient is not responding as expected, more invasive procedures will be discussed along with a referral. All considerations above were discussed with the patient and questions answered to satisfaction. If the patient should have any additional questions, or should the condition evolve or worsen, the patient should not hesitate to contact our office. ASSESSMENT: Patient is a good candidate for conservative care and the prognosis is for a favorable outcome that achieves the patients' goals. We discussed etiology, activity modifications, home care, and other treatment options. Initially, it is recommended that the patient receive in-office treatment 1 times per week for 8 weeks at which time a re-evaluation will be performed to determine an appropriate change in plan. Initially, treatment will focus on joint manipulation to restore range of motion and reduce pain. We will slowly progress to therapeutic exercises and activities to improve function, strength, and stability may also be used as warranted. If the patient is not responding as expected, more invasive procedures will be discussed along with a referral. All considerations above were discussed with the patient and questions answered to satisfaction. If the patient should have any additional questions, or should the condition evolve or worsen, the patient should not hesitate to contact our office. [email or web address] Not available 10/30/2024 18:46:54 11/07/2024 11/07/2024 ASSESSMENT: Patient is a good candidate for conservative care and the prognosis is for a favorable outcome that achieves the patients' goals. We discussed etiology, activity modifications, home care, and other treatment options. Initially, it is recommended that the patient receive in-office treatment 1 times per week for 8 weeks at which time a re-evaluation will be performed to determine an appropriate change in plan. Initially, treatment will focus on joint manipulation to restore range of motion and reduce pain. We will slowly progress to therapeutic exercises and activities to improve function, strength, and stability may also be used as warranted. If the patient is not responding as expected, more invasive procedures will be discussed along with a referral. All considerations above were discussed with the patient and questions answered to satisfaction. If the patient should have any additional questions, or should the condition evolve or worsen, the patient should not hesitate to contact our office. marques Not available 11/07/2024 12:03:10 Plan of Treatment Reminders Order Date Submit Date Provider Last Modified By Organization Details Last Modified Time Details Appointments None record ed. Lab None record ed. Referral None record ed. Procedures None record ed. Surgeries None record ed. Imaging None record ed. Medication Orders None record ed. Patient TargetsNo targets recorded. Patient InstructionsNo instructions recorded. Reason for Referral None Reported. Problems Name Problem SNOMED Code Status Onset Date Resolution Date Notes Provider Name and Address Organization Details Recorded Time Low back pain 220205511 Active 2023 Moise Mensah DC [address], [place], [address], [facility] - [facility] 4 18:46:52 Thoracic segmental dysfunction 913229383 Active 2023 Moise Mensah DC [address], [place], [address], [facility] 4 18:46:52 Lumbar segmental dysfunction 997917869 Active 2023 Moise Mensah DC [address], [place], [address], [facility] 4 18:46:52 Somatic dysfunction of sacral spine 250167335 Active 2023 Moise Mensah DC [address], [facility] [place], [address], [facility] 4 18:46:52 Neck pain 62457947 Active 2023 Moise Mensah DC [address], [facility], [address], [facility] 4 18:46:54 Cervical segmental dysfunction 908020938 Active 2023 Moise Mensah DC [address], [place], [address], [facility] 4 18:46:54 Problem Notes None recorded. Procedures Surgical History Date Name Laterality Status Provider Name and Address Organization Details Recorded Time 5 50425: Spinal manipulation , 3 to 4 regions completed Gerry Le, [place] [address], [place], [address], [facility] 11/07/2024 12:03:29 4 [address]208: Spinal manipulation , 3 to 4 regions completed Moise Mensah [place] [address], [place], [address], [facility] 10/30/2024 18:49:30 Imaging Results None recorded. Procedure Notes None recorded. Medical Equipment None Reported. Medications Name Sig Start Date Stop Date Status Note LastModified by Organization Details LastModified Time azithromycin 250 mg tablet active Not Available Not Availabl e Not Available omeprazole 20 mg capsule,delaye d release active Not Available Not Available No t Available amoxicillin 875 mg-potassium clavulanate 125 mg tablet active Not Available Not Availabl e Not Available Ventolin HFA 90 mcg/actuation aerosol inhaler active Not Available Not Available Not Available Vitals None Recorded Social History None recorded. Functional Status None recorded. Mental Status None recorded. Family History Nothing Reported. Medical History No medical history recorded. Gynecological HistoryNo gynecological history recorded. Obstetrics History GPAL:G 0 P 0 0 0 0 Past Encounters Encounter ID Performer Location Encounter Start Date Encounter Closed Date Diagnosis/Indication Diagnosis SNOMED-CT Code Diagnosis ICD10 Code Diagnosis Note [id number] Moise Thomas Mensah DC [facility] & [address] [place] [address] 10/30/2024 16:03:14 10/30/2024 19:26:07 Lumbar segmental dysfunction 401445969 M99.03 Low back pain 200395971 M54.50 Somatic dy sfunction of sacral spine 864844029 M99.04 Thoracic s egmental dysfunction 143436640 M99.02 Cervical s egmental dysfunction 363888078 M99.01 Neck pain 31505561 M54.2 [id number] Gerry Le DC [address] [place] [address] 11/07/2024 10:39:00 11/07/2024 12:17:20 Lumbar segmental dysfunction 129245567 M99.03 Low back pain 091695478 M54.50 Somatic dy sfunction of sacral spine 090985938 M99.04 Thoracic s egmental dysfunction 752480216 M99.02 Health Concerns Section Related Observation LastModified by Organization Detai ls LastModified Time None Recorded Concern Status LastModified by Organization Details LastModified Time None Recorded Advance Directives Directive None Recorded Payers Encounter Date Sequence Insurance Name Policy Number Policy Samuel Covered Member ID Samuel Member ID Guarantor Name 10/30/2024 1 *SELF PAY* Idalia Mariev 11/07/2024 [employer] Heather Chávez [id number] Heather Mariev Notes Date Note Type Note Provider Name and Address Organization Details Recorded Time 10/30/2024 text/html HPI - Cervical SpineReported bypatient.Location: bilateral Quality:aching Severity:moderate Duration:2 weeks Timing:gradual Context:atraumatic Alleviating Factors:chiropracti c care; rest; ice Aggravating Factors:bending; twisting/turning Associated Symptoms:no numbness/tinglingHP I - Lumbar SpineReported bypatient.Location: bilateral; With radiation to knee Quality:aching Severity:moderate Duration:intermitte nt episodes lasting:; 4 days Context:bending; lifting; twisting Aggravating Factors:lifting; carrying; twisting; bending/squatting Alleviating Factors:lying down; rest; critical care physician assistant 17 weeks with twins and one is not getting as much blood supply so plan to do 22 to 28 weeks going for later. Neck and upper back pain and tightness with stress and some lower back pelvis pain. Moise Mensah DC [address], [place], [address], [facility] 10/30/2024 18:50:02 11/07/2024 text/html HPI - Lumbar SpineReported bypatient.Location: left; With radiation to knee Quality:aching Severity:not changing Timing:morning Aggravating Factors:standing Alleviating Factors:esau Le DC [address], [place], [address], [facility] 11/07/2024 12:03:52 OBGyn Episode No OBEpisode recorded.
--- OUTSIDE RECORDS SUMMARY | 2024-12-01 10:33 | XMS_ITS | Clinical Summary ---
Author Organization [facility] Address [place], [place] [address] Care Team Providers Care Motor Driver Name Role Phone Merline Duffy MD Unavailable [phone] Amina Gardner MD Primary Care Provider Allergies Active Allergy Reactions Criticality Noted Date Comments Cats (Fur, Dander, Saliva) Cough 9 Dog Dander Cough 11/01/2018 Medications ibuprofen (MOTRIN IB) 200 mg tabletIndication s: (normal spontaneous vaginal delivery) Take 1-3 tablets by mouth every 6 hours if needed for Other (Specify) (for uterine cramping). Take with food. 100 tablet 9 Active Breast Pump - PurchaseIndicati ons: disorder, delivered Electric breast pump for home use. Gestation age at delivery: 40 weeks. Reason for need: separation from . Length of need: 12 months 1 Device 9 Active vitamin-folic acid 1 mg ( RX) tablet/capsuleIn dications:Postpa rtum care and examination Take 1 tablet by mouth once daily. 0 9 Active Active Problems Problem Noted Date Diagnosed Date Threatened labor at term 04/15/2019 (normal spontaneous vaginal delivery) 04/15 Hx of herpes genitalis 11/01/2018 Overview (11/01/2018): Plan antiviral at 36 weeks Encounter for scre ening for malformation using ultrasound Immunizations Name Administration Dates Next Due DTP 07/13/1999 DTP-HIB 01/02/1996,02/07/1995,1994 ,1994 Hepatitis A (Adult) 04/16/2015 Hepatitis A (Peds) 05/31/2014,10/07/2011 Hepatitis B (Peds) 08/30/1995,02/07/1995, 994,1994 Inactivated Polio Vaccine 07/13/1999 MMR 07/13/1999,08/01/1995 Meningococcal Vaccine (Menactra) 10/07/2011 Oral Polio Vaccine 01/02/1996,02/07/1995, 995,1994 Tdap 09/25/2008 Typhoid (injectable) 05/31/2014 Typhoid (oral) 05/29/2015 Yellow Fever 05/29/2015 Family History Medical History Relation Name Comments Diabetes Father Cancer-breast Maternal Aunt Cancer-breast Paternal Grandmother Relation Name Status Comments Father Alive Maternal Aunt Mother Alive Paternal Grandmother Social History Tobacco Use Types Packs/Day Years Used Date Smoking Tobacco: Never Smokeless Tobacco: Never Tobacco Cessation:Counseling Given: Yes Alcohol Use Standard Drinks/Week Comments No 0 (1 standard drink = 0.6 oz pur e alcohol) PHQ-2 Answer Date Recorded PHQ-2 Score 0 12/30/2018 Comments No Sex and Gender Information Value Date Recorded Sex Assigned at Not on file Legal Sex Female 4:29 PM CDT Gender Identity Not on file Sexual Orientation Not on file Obstetrics History Para Term AB IAB SAB Ectopic Multiple Livin g Live Births 1 1 1 0 0 0 0 0 0 0 0 Date Outcome GA Total Labor Labor/2nd/3rd Weight Sex Type Anes PTL Aaliyah A1 A5 Name Clin 9 Term 40w 2d 3.61 kg (7 lb 15.3 oz) M Vag 7 9 KOPYL OV,BB HEATHER Delivery [facility]) Last Filed Vital Signs Vital Sign Reading Time Taken Comments Blood Pressure 100/72 05/25/2019 2:51 PM CDT Pulse 74 05/25/2019 2:51 PM CDT Temperature 37.3 C (99.1 F) 04/20/2019 11:34 AM CDT Respiratory Rate 16 04/20/2019 11:34 AM CDT Oxygen Saturation 97% 04/17/2019 9:14 AM CDT Inhaled Oxygen Concentration - - Weight 75.5 kg (166 lb 7 oz) 05/25/2019 2:51 PM CDT Height 165.1 cm (5' 5) 04/12/2019 10:31 AM CDT Body Mass Index 27.7 04/12/2019 10:31 AM CDT Plan of Treatment Health Maintenance Due Date Last Done Comments Pap test for age 21-65 2015 Tetanus booster 09/25/2018 09/25/2008 Depression screening for age 12+ 12/28/2019 12/28/2018, 12/30/2017 BMI (ht and wt on same day) for age 18+ 04/12/2020 04/12/2019, 03/22/2019, 03/15/2019, Additional history exists COVID-19 vaccine series (2023- season) 2024 Influenza for age 9-49 07/01/2024 Tdap Completed 09/25/2008 HIV for age 15-65 Completed 04/15/2019 Hepatitis C screening for age 18-79 Completed 04/15/2019 Pneumococcal series for age 6-49 Aged Out No longer eligible based on patient's age to complete this topic Procedures Procedure Name Priority Date/Time Associated Diagnosis Comments EXPOSURE (BBF) RAPID HIV Today 04/15/2019 10:29 AM CDT EXPOSURE (BBF) ANTI HCV Today 04/15/2019 10:29 AM CDT from Last 3 Months or Most Recently Relevant to Health Maintenance Results * Patient Source Rapid HIV - Unknown HIV (04/15/2019 10:29 AM CDT) SOURCE RAPID HIV SCREEN Non-Reacti ve Non-Reacti ve 04/15/2019 10:47 PM CDT [facility] Blood BLOOD SPECIMEN / Unknown Add On / Unknown 04/15/2019 10:29 AM CDT 04/15/2019 10:22 PM CDT Amina Gardner MD SEND OUTS Final Result [address] [address] [place] [address] * Patient Source ANTI HCV (04/15/2019 10:29 AM CDT) HEPATITIS C ANTIBODY Non-React pamella Non-React pamella 04/16/2019 5:11 PM CDT [facility] Comment:Antibodies to HCV no t detected; does not exclude the possibility of exposure to HCV. Blood BLOOD SPECIMEN / Unknown Venipuncture / Unknown 04/15/2019 10:29 AM CDT 04/15/2019 10:35 AM CDT us Amina Gardner MD SEND OUTS Final Result [facility] [address] [place] [address], [place] from Last 3 Months or Most Recently Relevant to Health Maintenance Insurance [facility] [employer] Advance Directives * Full Code (Latest Code Status on File) Date Activated Date Inactivated Comments 04/15/2019 9:55 PM 04/17/2019 11:28 PM Question Answer Comments Code Status Discussion: Not Discussed Care Teams Motor Driver Relationship Specialty Start Date End Date Amina Gardner MD [address] [facility] [address] [place] [address] PCP - General Family Practice 12/08/18 Merline Duffy MD [address] [facility] [address] [place] [address] Family Practice 03/22/18
--- OUTSIDE RECORDS SUMMARY | 2024-12-01 10:34 | XMS_ITS | Encounter Summary ---
Author Organization [facility] Address [address] [place] [address] Care Team Providers Care Hand Weaver Name Role Phone No Ref-Primary, Physician Primary Care Provider Flower Amato MD Unavailable [phone] Reason for Referral * Diagnostic Imaging Ultrasound (Routine) - Pending Review Specialty Diagnoses / Procedures Referred By Noa lilly Referred To Contact Radiology. 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 Procedures MFM Twins Comprehensive F/U Nicole Núñez MD [address] [place] [address] Phone: tel: fax: Referral ID Status Reason Start Date Expiration Date V isits Requested Visits Authorized [id number] Pending Review 11/30/2024 11/30/2025 1 1 FABRICATING MACHINE TENDER Reason for Visit * Reason Comments Ultrasound RL2/UAR/MCA-mono/di twins, fetus 2 with FGR Encounter Details Date Type Department Care Team (Latest Contact Info) Description 11/30/2024 2:45 PM LENS FABRICATING MACHINE TENDER Office Visit [facility] [place] [address] [place] [address] Nicole Núñez MD [address] [place] [address] 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 For a detailed report of the ultrasound examination, please see the ultrasound report which can be found under the imaging tab. If you have questions regarding today's evaluation or if we can be of further service, please contact the Maternal- Medicine Center. Nicole Núñez MD Log Manager, WOUND CARE TECHNICIAN Maternal- Medicine FABRICATING MACHINE TENDER documented in this encounter Nursing Notes * Rivka Jones RN - 11/30/2024 2:45 PM CST Patient reports positive movement x 2, denies pain, leaking of fluid, or bleeding. Education provided to patient on today's ultrasound. SBAR given to [facility], see their note in Epic. FABRICATING MACHINE TENDER documented in this encounter Plan of Treatment Upcoming Encounters Date Type Department Care Team (Late st Contact Info) Description 12/03/2024 2:15 PM LENS FABRICATING MACHINE TENDER Appointment [facility] [place] [address] [place] [phone] Nicole Núñez MD [address] [place] [address] 12/03/2024 2:45 PM LENS FABRICATING MACHINE TENDER Office Visit [facility] Maternal Medicine [facility] [address] [place] [address] Nicole Núñez MD [address] [place] [address] 12/06/2024 9:30 AM LENS FABRICATING MACHINE TENDER Appointment [facility] Maternal Medicine [place] [address] [place] [phone] Nicole Núñez MD [address] [place] [address] 12/06/2024 10:00 AM LENS FABRICATING MACHINE TENDER Office Visit [facility] Maternal Medicine [place] [address] [place] [phone] Nicole Núñez MD [address] [place] [address] 12/13/2024 9:30 AM LENS FABRICATING MACHINE TENDER Appointment [facility] Maternal Medicine [place] [address] [place] [phone] Nicole Núñez MD [address] [place] [address] 12/13/2024 10:00 AM LENS FABRICATING MACHINE TENDER Office Visit [facility] Maternal Medicine [facility] [address] [place] [phone] Nicole Núñez MD [address] [place] [address] 12/19/2024 9:30 AM LENS FABRICATING MACHINE TENDER Appointment [facility] [place] [address] [place] [address] Nicole Núñez MD [address] [place] [address] 12/19/2024 10:00 AM LENS FABRICATING MACHINE TENDER Office Visit [facility] Maternal Medicine [place] [address] [facility] [address] [place] [phone] Nicole Núñez MD [address] [place] [address] 12/28/2024 10:15 AM LENS FABRICATING MACHINE TENDER Appointment [facility] Maternal Medicine [place] [address] [place] [phone] Diane Lopez MD [address] [place] [address] 12/28/2024 10:45 AM LENS FABRICATING MACHINE TENDER Office Visit [facility] Maternal Medicine [place] [address] [place] [phone] Diane Lopez MD [address] [place] [address] 01/11/2025 10:15 AM CDT Appointment [facility] Maternal Medicine [place] [address] [place] [phone] Diane Lopez MD [address] [place] [address] 01/11/2025 10:45 AM CDT Office Visit [facility] Maternal Medicine [place] [address] [place] [phone] Diane Lopez MD [address] [place], [place] [address] Scheduled Orders Name Type Priority Associated Diagnoses Orde r Schedule MFM Twins US Comprehensive F/U Imaging Routine 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 Expected: 12/03/2024 (Approximate), Expires: 09/29/2025 documented as of this encounter Visit Diagnoses Diagnosis 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
--- OUTSIDE RECORDS SUMMARY | 2024-12-01 10:34 | XMS_ITS | Referral Summary ---
Author Organization [facility] Address [address] [place] [address]. [place] [address] Care Team Providers Care Oleo Hasher And Renderer Name Role Phone No Ref-Primary, Physician Primary Care Provider Flower Amato MD Unavailable [phone] Encounters Date Type Department Care Team Description 11/30/2024 Office Visit [facility] [address] [place] [address] [address] [place] [phone] Luc Dominguez MD cardiac anomaly complicating , antepartum, fetus 1 (Primary Dx); cardiac anomaly complicating , antepartum, fetus 2 11/30/2024 Travel 11/30/2024 12:25 PM AUTO WHEEL ALIGNMENT SPECIALIST - 11/30/2024 1:30 PM AUTO WHEEL ALIGNMENT SPECIALIST Hospital Encounter [facility] [address] [place] [phone] Yobani Crespo MD 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 Discharge Disposition: Home or Self Care 11/30/2024 2:45 PM AUTO WHEEL ALIGNMENT SPECIALIST Office Visit [facility] [place] [address] [place] [phone] Nicole Núñez MD 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 (Primary Dx); Intrauterine growth restriction affecting antepartum care of mother in first trimester, fetus 2; Ductus venosus abnormality 11/30/2024 1:31 PM AUTO WHEEL ALIGNMENT SPECIALIST - 11/30/2024 11:59 PM AUTO WHEEL ALIGNMENT SPECIALIST Hospital Encounter [facility] [place] [address] [place] [address] Nicole Núñez MD 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 Discharge Disposition: Home or Self Care 11/30/2024 12:00 PM AUTO WHEEL ALIGNMENT SPECIALIST - 11/30/2024 12:24 PM AUTO WHEEL ALIGNMENT SPECIALIST Hospital Encounter [facility] [address] [facility] [place] [address] Yobani Crespo MD 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 Discharge Disposition: Home or Self Care 11/22/2024 Travel 11/22/2024 10:00 AM AUTO WHEEL ALIGNMENT SPECIALIST Office Visit [facility] [place] [address] [place] [address] Nicole Núñez MD 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 (Primary Dx); Intrauterine growth restriction affecting antepartum care of mother in first trimester, fetus 2 11/22/2024 9:28 AM AUTO WHEEL ALIGNMENT SPECIALIST - 11/22/2024 11:59 PM AUTO WHEEL ALIGNMENT SPECIALIST Hospital Encounter [facility] [place] [address] [place] [address] Nicole Núñez MD 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 Discharge Disposition: Home or Self Care 11/14/2024 Travel 11/14/2024 11:30 AM AUTO WHEEL ALIGNMENT SPECIALIST Office Visit [facility] [place] [address] [place] [address] Flower Amato MD 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 (Primary Dx); Discordant growth in twin gestation, fetus 2 of multiple gestation; Intrauterine growth restriction affecting antepartum care of mother in first trimester, fetus 2 11/14/2024 10:09 AM AUTO WHEEL ALIGNMENT SPECIALIST - 11/14/2024 11:59 PM AUTO WHEEL ALIGNMENT SPECIALIST Hospital Encounter [facility] [address] [place] [address] Flower Amato MD 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 Discharge Disposition: Home or Self Care 11/08/2024 Travel 11/08/2024 10:00 AM AUTO WHEEL ALIGNMENT SPECIALIST Office Visit [facility] [address] [place] [address] Flor Dickson MD 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 (Primary Dx); Discordant growth in twin gestation, fetus 2 of multiple gestation 11/08/2024 9:24 AM AUTO WHEEL ALIGNMENT SPECIALIST - 11/08/2024 11:59 PM AUTO WHEEL ALIGNMENT SPECIALIST Hospital Encounter [facility] [place] [address] [place] [address] Flor Dickson MD 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 Discharge Disposition: Home or Self Care 11/02/2024 Travel 11/02/2024 2:00 PM AUTO WHEEL ALIGNMENT SPECIALIST Office Visit [facility] [address] [place] [address] Yobani Crespo MD Nashif, Sereen, MD 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 (Primary Dx); Intrauterine growth restriction affecting antepartum care of mother in first trimester, fetus 2 11/02/2024 1:22 PM AUTO WHEEL ALIGNMENT SPECIALIST - 11/02/2024 11:59 PM AUTO WHEEL ALIGNMENT SPECIALIST Hospital Encounter [facility] [address] [place] [address] Yobani Crespo MD Nashif, Sereen, MD 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 Discharge Disposition: Home or Self Care 10/26/2024 Travel 10/26/2024 11:30 AM AUTO WHEEL ALIGNMENT SPECIALIST Office Visit [facility] [address] [phone] Estrella Esteban MD 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 (Primary Dx); growth restriction antepartum 10/26/2024 11:00 AM AUTO WHEEL ALIGNMENT SPECIALIST Ancillary Procedure [facility] [address] [place] [address] Estrella Esteban MD 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 10/19/2024 Travel 10/19/2024 11:30 AM AUTO WHEEL ALIGNMENT SPECIALIST Office Visit [facility] [address] [place] [address] Yobani Crespo MD 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 (Primary Dx); growth restriction antepartum 10/19/2024 11:00 AM AUTO WHEEL ALIGNMENT SPECIALIST - 10/19/2024 11:59 PM AUTO WHEEL ALIGNMENT SPECIALIST Hospital Encounter [facility] [place] [address] [facility] [address] [place] [phone] Yobani Crespo MD related condition, antepartum Discharge Disposition: Home or Self Care 10/15/2024 PRE VISIT [facility] [place] [address] [facility] [address] [place] [phone] Debra Tran RN Ultrasound (2/3 complete-Twin , mono-di) 10/10/2024 Transcribe Orders [facility] [place] [address] [address] [facility] [address] [place] [address] Zakia Cuellar MD related condition, antepartum (Primary Dx) 10/09/2024 Medical Correspondence [facility] [address] [facility] [address] [place] [address] Scan, Non-Provider from Last 3 Months Allergies No known active allergies Medications ibuprofen [...] Patient not taking.Reported on 12/24/2023 Active Problems Estimated Date of Delivery Comme nts Yes 04/07/2025 Based on last me nstrual period of 07/01/2024 No known active problems Social History Tobacco [...] on file Legal Sex Female 11:44 PM AUTO WHEEL ALIGNMENT SPECIALIST Gender Identity Not on file Sexual Orientation Not on file Last Filed Vital Signs Vital Sign Reading Time Taken Comments Blood Pressure 127/77 12/08/2021 5:48 PM AUTO WHEEL ALIGNMENT SPECIALIST Pulse 88 12/24/2023 3:35 PM AUTO WHEEL ALIGNMENT SPECIALIST Temperature 37.1 C (98.7 F) 12/24/2023 3:35 PM AUTO WHEEL ALIGNMENT SPECIALIST Respiratory Rate 16 12/24/2023 3:35 PM AUTO WHEEL ALIGNMENT SPECIALIST Oxygen Saturation 98% 12/24/2023 3:35 PM AUTO WHEEL ALIGNMENT SPECIALIST Inhaled Oxygen Concentration - - Weight 69.3 kg (152 lb 11.2 oz) 12/24/2023 3:35 PM AUTO WHEEL ALIGNMENT SPECIALIST Height 165.1 cm (5' 5) 12/04/2021 10:1 0 PM AUTO WHEEL ALIGNMENT SPECIALIST Body Mass Index 25.41 12/04/2021 10:10 PM AUTO WHEEL ALIGNMENT SPECIALIST Plan of Treatment Upcoming Encounters Date Type Department Care Team (Late st Contact Info) Description 12/03/2024 2:15 PM AUTO WHEEL ALIGNMENT SPECIALIST Appointment [facility] [place] [address] [place] [phone] Nicole Núñez MD [address] [place] [place] [address] 12/03/2024 2:45 PM AUTO WHEEL ALIGNMENT SPECIALIST Office Visit [facility] [address] [place] [address] Nicole Núñez MD [address] [place] [phone] 12/06/2024 9:30 AM AUTO WHEEL ALIGNMENT SPECIALIST Appointment [facility] [place] [address] [place] [phone] Nicole Núñez MD [address] [place] [address] 12/06/2024 10:00 AM AUTO WHEEL ALIGNMENT SPECIALIST Office Visit [facility] [address] [place] [phone] Nicole Núñez MD [address] [place] [phone] 12/13/2024 9:30 AM AUTO WHEEL ALIGNMENT SPECIALIST Appointment [facility] [address] [place] [phone] Nicole Núñez MD [address] [place] [place] [address] 12/13/2024 10:00 AM AUTO WHEEL ALIGNMENT SPECIALIST Office Visit [facility] [place] [address] [place] [phone] Nicole Núñez MD [address] [place] [address] 12/19/2024 9:30 AM AUTO WHEEL ALIGNMENT SPECIALIST Appointment [facility] [place] [address] [place] [phone] Nicole Núñez MD [address] [facility] [address] 12/19/2024 10:00 AM AUTO WHEEL ALIGNMENT SPECIALIST Office Visit [facility] [place] [address] [place] [phone] Nicole Núñez MD [address] [place] [address] 12/28/2024 10:15 AM AUTO WHEEL ALIGNMENT SPECIALIST Appointment [facility] [place] [address] [place] [phone] Yobani Crespo MD [address] [address] 12/28/2024 10:45 AM AUTO WHEEL ALIGNMENT SPECIALIST Office Visit [facility] [place] [address] [place] [phone] Yobani Crespo MD [address] [address] 01/11/2025 10:15 AM CDT Appointment [facility] [place] [address] [place] [phone] Yobani Crespo MD [address] [place] [address] 01/11/2025 10:45 AM CDT Office Visit [facility] [address] [place] [phone] Yobani Crespo MD [address] [place], [place] [address] Procedures Procedure Name Priority Date/Time Associated Diagnosis Comments MFM TWINS US COMPREHENSIVE F/U Routine 11/30/2024 3:11 PM AUTO WHEEL ALIGNMENT SPECIALIST 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 ECHO COMPLETE Routine 11/30/2024 1 :46 PM AUTO WHEEL ALIGNMENT SPECIALIST 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 ECHO COMPLETE Routine 11/30/2024 1 :46 PM AUTO WHEEL ALIGNMENT SPECIALIST 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 MFM TWINS US COMPREHENSIVE F/U Routine 11/22/2024 11:09 AM AUTO WHEEL ALIGNMENT SPECIALIST 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 MFM TWINS US COMPREHENSIVE Routine 11/14/2024 11:59 AM AUTO WHEEL ALIGNMENT SPECIALIST 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 MFM TWINS US COMPREHENSIVE F/U Routine 11/08/2024 10:15 AM AUTO WHEEL ALIGNMENT SPECIALIST 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 MFM TWINS US COMPREHENSIVE F/U Routine 11/02/2024 2:26 PM AUTO WHEEL ALIGNMENT SPECIALIST 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 MFM TWINS US COMPREHENSIVE F/U Routine 10/26/2024 11:48 AM AUTO WHEEL ALIGNMENT SPECIALIST 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 MFM TWINS US OB COMPLETE 2/3 TRI Routine 10/19/2024 1:39 PM AUTO WHEEL ALIGNMENT SPECIALIST related condition, antepartum from Last 3 Months Results * MFM Twins US Comprehensive F/U (11/30/2024 3:11 PM AUTO WHEEL ALIGNMENT SPECIALIST) Only the most recent of5 resultswithin the time period is included. Anatomical Region Laterality Modality Ultrasound 11/30/2024 2:04 PM AUTO WHEEL ALIGNMENT SPECIALIST Impressions 11/30/2024 8:09 PM AUTO WHEEL ALIGNMENT SPECIALIST IMPRESSION ----- Monochorionic diamniotic twin gestation at 21w 5d gestational age. Fetus 1 1. A normal bladder was visualized. 2. The amniotic fluid volume is elevated consistent with mild polyhydramnios. 3. The umbilical artery Doppler studies were normal. 4. The middle cerebral artery Doppler studies were within normal limits. 5. The ductus venosus studies were within normal limits. Fetus 2 1. A normal bladder was visualized. 2. The amniotic fluid volume appeared normal. 3. The umbilical artery Doppler studies were abnormal: Absent End Diastolic Flow. 4. The middle cerebral artery Doppler studies were within normal limits. 5. The ductus venosus studies were abnormal; intermittent depressed A wave and reversal. Narrative 11/30/2024 8:09 PM AUTO WHEEL ALIGNMENT SPECIALIST Surveillance US ----- Pat. Name: DEANDRE LEYVA Study Date: 11/30/2024 2:04pm Pat. NO: [id number] Referring MD: ZAKIA CUELLAR Site: Architecture Analyst: Kenyetta Lyons RDMS : 1995 Age: 29 ----- INDICATION ----- Monochorionic-Diamniotic Twin Gestation Selective Growth Restriction (FGR) fetus 2 Circumvallate placenta METHOD ----- View: Sufficient. ----- Twin . Number of fetuses: 2. Monochorionic-diamniotic DATING ----- Date Details Gest. age TOMMIE LMP 07/01/2024 21 w + 5 d 04/07/2025 Previous U/S 08/27/2024 GA, GA 7 w + 6 d 21 w + 3 d 04/09/2025 Assigned dating based on the LMP, selected on 11/22/2024 21 w + 5 d 04/07/2025 Fetus 1: GENERAL EVALUATION ----- Cardiac activity present. FHR 155 bpm. movements: visualized. Presentation: breech, maternal left Placenta: Placental site: anterior, thin dividing membrane Umbilical cord: 3 vessel cord Amniotic fluid: Amount of AF: Polyhydramnios, Mild. MVP 8.3 cm Fetus 2: GENERAL EVALUATION ----- Cardiac activity present. FHR 140 bpm. movements: visualized. Presentation: breech, maternal right Placenta: Placental site: anterior, thin dividing membrane Umbilical cord: 3 vessel cord Amniotic fluid: Amount of AF: normal. MVP 4.6 cm Fetus 1: DOPPLER ----- Umbilical Artery: normal PI 1.20 50% Ramírez HR 155 bpm Mid Cerebral Artery: normal PS 32.58 cm/s PS 1.18 MoM Ductus Venosus: A-wave -33.93 cm/s a/S 0.59 45% JSUM Fetus 2: DOPPLER ----- Umbilical Artery: abnormal, Absent End Diastolic Flow Mid Cerebral Artery: normal PS 37.08 cm/s PS 1.35 MoM Ductus Venosus: A-wave -8.07 cm/s depressed A wave a/S 0.20 <1% JSUM Fetus 1: TTTS ASSESSMENT ----- Cardiac activity: present Placental location: anterior, thin dividing membrane Placental cord insertion: ... bladder: normal hydrops: No MVP: 8.3 cm MCA PSV: 32.58 cm/s MCA MoM: 1.18 UA PI: 1.2, 50% Ductus Venosus: normal Fetus 2: TTTS ASSESSMENT ----- Cardiac activity: present Placental location: anterior, thin dividing membrane Placental cord insertion: ... bladder: normal hydrops: No MVP: 4.6 cm MCA PSV: 37.08 cm/s MCA MoM: 1.35 Ductus Venosus: abnormal RECOMMENDATION ----- Thank-you for referring your patient to assess for surveillance due to monochorionic twin with selective growth restriction of fetus 2. We discussed the findings on today's ultrasound with the patient including increasing fluid discrepancy between twins with mild polyhydramnios of twin 1, absent EDF of twin 2, and abnormal ductus venosus of twin 2. She had echocardiograms with pediatric cardiology today that were notable for flow reversal in the ductus venosus during atrial systole and absent end-diastolic flow in the umbilical artery. Otherwise the echocardiograms were with normal cardiac anatomy. The findings in the ductus venosus (DV) for twin 2 were again noted during our US today with some measurements with reversal and others with depression in the a wave. There was significant movement and breathing over multiple periods of evaluation today, and we discussed how this may be resulting in limited evaluation. However, the abnormal finding in the DV has not been previously noted, and we discussed that this is concerning for worsening process of the selective FGR and may be an indication of compromise of fetus 2 with possibility of impending loss of fetus 2. We reviewed that an adverse outcome of fetus 2 could negatively impact the outcome for fetus 1 (loss of fetus 1 vs. neurologic injury), and she states understanding of this as she has previously been counseled extensively on this. Given pre-viable status, we reviewed management options at this time including referral to [facility] for consideration of laser procedure to protect/optimize fetus 1 vs. ongoing expectant management. She is going to discuss this further with her but at this time feels she would not proceed with an in utero procedure at this time. She currently declines referral. Given she will reach periviable status by GA over the weekend, recommend repeat evaluation for TTTS/DV surveillance and growth evaluation on 12/03/24. We will continue the above conversations after reaching periviable GA and with updated EFW for both twins. We briefly discussed once we establish we are at a point to consider resuscitation increasing surveillance vs. hospital admission in shared decision makoing. We also discussed likely plan for delivery at the [place]. Return to primary provider for continued care. If you have questions regarding today's evaluation or if we can be of further service, please contact the [facility]. anomalies may be present but not detected I spent a total of 15 minutes (excluding the ultrasound interpretation) on the date of this encounter including preparing to see the patient (reviewing medical records/tests), in direct [id number] contact with the patient counseling and discussing the plan of care, documenting the visit in the electronic medical record, and communicating with other health rn patient care and/or care coordination. Procedure Note Nicole Núñez MD - 11/30/2024 Surveillance US ----- Pat. Name: DEANDRE LEYVA Study Date: 11/30/2024 2:04pm Pat. NO: [id number] Referring MD: ZAKIA CUELLAR Site: Architecture Analyst: Kenyetta Lyons RDMS : 1995 Age: 29 ----- INDICATION ----- Monochorionic-Diamniotic Twin Gestation Selective Growth Restriction (FGR) fetus 2 Circumvallate placenta METHOD ----- View: Sufficient. ----- Twin . Number of fetuses: 2. Monochorionic-diamniotic DATING ----- DateDetailsGest. age TOMMIE LMP w + 5 d 04/07/2025 Previous U/S 08/27/2024 GA, GA7 w + 6 d21 w + 3 d 04/09/2025 Assigned dating based on the LMP, selected on w + 5 d 04/07/2025 Fetus 1: GENERAL EVALUATION ----- Cardiac activity present. FHR 155 bpm. movements: visualized.Presentation: breech, maternal left Placenta: Placental site: anterior, thin dividing membrane Umbilical cord: 3 vessel cord Amniotic fluid: Amount of AF: Polyhydramnios, Mild. MVP 8.3 cm Fetus 2: GENERAL EVALUATION ----- Cardiac activity present. FHR 140 bpm. movements: visualized.Presentation: breech, maternal right Placenta: Placental site: anterior, thin dividing membrane Umbilical cord: 3 vessel cord Amniotic fluid: Amount of AF: normal. MVP 4.6 cm Fetus 1: DOPPLER ----- Umbilical Artery: normal PI 1.2050%Ramírez HR 155bpm Mid Cerebral Artery: normal PS 32.58cm/s PS 1.18MoM Ductus Venosus: A-wave -33.93cm/s a/S 0.5945%JSUM Fetus 2: DOPPLER ----- Umbilical Artery: abnormal, Absent End Diastolic Flow Mid Cerebral Artery: normal PS 37.08cm/s PS 1.35MoM Ductus Venosus: A-wave -8.07cm/s depressed A wave a/S 0.20<1%JSUM Fetus 1: TTTS ASSESSMENT ----- Cardiac activity: present Placental location: anterior, thin dividing membrane Placental cord insertion: ... bladder: normal hydrops: No MVP: 8.3 cm MCA PSV: 32.58 cm/s MCA MoM: 1.18 UA PI: 1.2, 50% Ductus Venosus: normal Fetus 2: TTTS ASSESSMENT ----- Cardiac activity: present Placental location: anterior, thin dividing membrane Placental cord insertion: ... bladder: normal hydrops: No MVP: 4.6 cm MCA PSV: 37.08 cm/s MCA MoM: 1.35 Ductus Venosus: abnormal RECOMMENDATION ----- Thank-you for referring your patient to assess for surveillance due tomonochorionic twin with selective growth restriction offetus 2. We discussed the findings on today's ultrasound with the patient includingincreasing fluid discrepancy between twins with mild polyhydramnios oftwin 1, absent EDF of twin 2, and abnormal ductus venosus of twin 2. She had fetalechocardiograms with pediatric cardiology today that were notable for flowreversal in the ductus venosus during atrial systole and absent end-diastolic flow in the umbilicalartery. Otherwise the echocardiograms were with normal cardiacanatomy. The findings in the ductus venosus (DV) for twin 2 were again noted during our US today with somemeasurements with reversal and others with depression in the a wave. Therewas significant movement and breathing over multiple periods of evaluation today, and wediscussed how this may be resulting in limited evaluation. However, theabnormal finding in the DV has not been previously noted, and we discussed that this is concerningfor worsening process of the selective FGR and may be an indication ofcompromise of fetus 2 with possibility of impending loss of fetus 2. We reviewed that an adverseoutcome of fetus 2 could negatively impact the outcome for fetus 1 (lossof fetus 1 vs. neurologic injury), and she states understanding of this as she has previously beencounseled extensively on this. Given pre-viable status, we reviewedmanagement options at this time including referral to [facility] for consideration oflaser procedure to protect/optimize fetus 1 vs. ongoing expectantmanagement. She is going to discuss this further with her but at this time feels she would notproceed with an in utero procedure at this time. She currently declinesreferral. Given she will reach periviable status by GA over the weekend,recommend repeat evaluation for TTTS/DV surveillance and growth evaluationon 12/03/24. We will continue the above conversations after reaching periviable GA and withupdated EFW for both twins. We briefly discussed once we establish we areat a point to consider resuscitation increasing surveillance vs. hospital admissionin shared decision makoing. We also discussed likely plan for delivery [facility]. Return to primary provider for continued care. If you have questions regarding today's evaluation or if we can be offurther service, please contact the [facility] Center. anomalies may be present but not detected I spent a total of 15 minutes (excluding the ultrasound interpretation) onthe date of this encounter including preparing to see the patient(reviewing medical records/tests), in direct [id number] contact with the patient counseling and discussingthe plan of care, documenting the visit in the electronic medical record,and communicating with other health rn patient care and/or care coordination. IMPRESSION ----- Monochorionic diamniotic twin gestation at 21w 5d gestational age. Fetus 1 1. A normal bladder was visualized. 2. The amniotic fluid volume is elevated consistent with mildpolyhydramnios. 3. The umbilical artery Doppler studies were normal. 4. The middle cerebral artery Doppler studies were within normal limits. 5. The ductus venosus studies were within normal limits. Fetus 2 1. A normal bladder was visualized. 2. The amniotic fluid volume appeared normal. 3. The umbilical artery Doppler studies were abnormal: Absent EndDiastolic Flow. 4. The middle cerebral artery Doppler studies were within normal limits. 5. The ductus venosus studies were abnormal; intermittent depressed A waveand reversal. us Yobani Crespo MD [facility] US ORDERABLES Edited Result - Final * ECHO COMPLETE (11/30/2024 1:46 PM AUTO WHEEL ALIGNMENT SPECIALIST) Anatomical Region Laterality Modality Echocardiography 11/30/2024 1:42 PM AUTO WHEEL ALIGNMENT SPECIALIST Narrative 11/30/2024 2:07 PM AUTO WHEEL ALIGNMENT SPECIALIST [id number]^ZAK^YOBANI Study ID: [id number] [facility] [address] [address] Echocardiogram Name: DEANDRE LEYVA Study Date: 11/30/2024 01:42 PM Patient Location: [facility] Gender: Female Patient Class: Outpatient : 1995 Age: 29 yrs Ordering Provider: YOBANI CRESPO Referring Provider: YOBANI CRESPO Performed By: Daphney Dao RDCS Reading Physician: Luc Dominguez MD Reason For Study: 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 Data: Number of fetuses: This is a twin gestation. Due date: 04/07/2025. Gestational age: 21w5d. Delivery at: [facility] [place]. Specific Indication: echocardiogram performed for monochorionic diamniotic twins. CONCLUSIONS Fetus 2. Normal cardiac anatomy. Normal intracardiac connections. Normal right and left ventricular size and function. Normal left ventricular Tei index at 0.24. Normal right ventricular Tei index at 0.36. No hydrops. There is an abnormal flow profile in the ductus venosus with cessation of flow in atrial systole. There is absent end-diastolic flow in the umbilical artery. Results discussed with patient. No additional echocardiograms are recommended. No cardiac follow-up is required. Technical Information: The study quality is good. A complete two dimensional, spectral and color Doppler echocardiogram is performed. position and segmental anatomy: The fetus in breech position. The fetus is located on maternal's right-side. The heart is in left chest. The cardiac apex points towards the left. There is normal atrial arrangement, with concordant atrioventricular and ventriculoarterial connections. The abdominal aorta is to the left of the spine. There is a left sided stomach. Systemic and pulmonary veins: The systemic venous return is normal. At least one right and one left pulmonary veins are seen returning to the left atrium. Atria and atrial septum: Normal right atrial size. The left atrium is normal in size. The flap of the foramen ovale opens in to the left atrium. There is laminar clroa-zo-fvxt shunting across the foramen ovale. Atrioventricular valves: The tricuspid valve is normal in appearance and motion. There is no tricuspid insufficiency. The mitral valve is normal in appearance and motion. There is no mitral valve insufficiency. Ventricles and ventricular septum: Normal right ventricular size. Normal right ventricular systolic function. Normal right ventricular Tei index at 0.36. Normal left ventricular size. Normal left ventricular systolic function. Normal left ventricular Tei index at 0.24. No obvious ventricular level shunting. Outflows tracts: Normal great artery relationship. The right ventricular outflow tract is normal in caliber. The pulmonary valve has normal appearance and motion. There is normal flow across the pulmonary valve. There is unobstructed flow through the left ventricular outflow tract. The aortic valve has normal appearance and motion. There is normal flow across the aortic valve. Great arteries: The main pulmonary artery has normal appearance. There is unobstructed flow in the main pulmonary artery. The pulmonary artery bifurcation is normal. There is unobstructed flow in both branch pulmonary arteries. The ductus arteriosus has normal appearance with normal antegrade flow. There is unobstructed antegrade flow in the ascending aorta. The aortic arch appears normal. There is unobstructed antegrade flow in the aortic arch. Effusions and extracardiac findings: No pericardial effusion. No hydrops. cardiac rhythm: heart rate is regular at 148 bpm. Doppler: There is flow reversal in the ductus venosus during atrial systole. There is absent end-diastolic flow in the umbilical artery. echocardiography cannot rule out small atrial or ventricular septal defects, persistent ductus arteriosus, mild coarctation of the aorta, partial anomalous pulmonary venous return, minor anatomic valve anomalies or coronary artery anomalies. Time Measurements LVET: 0.17 sec RVET: 0.17 sec Doppler Measurements & Calculations LV Tei Index: 0.24 RV Tei Index: 0.36 MV Close to Open: 0.22 sec TV Close to Open: 0.23 sec Reading Physician: Luc Dominguez MD 11/30/2024 02:07 PM Procedure Note Luc Dominguez MD - 11/30/2024 [id number] [facility] [id number]^ZAK^YOBANI Study ID:[id number] [facility] [address] [address] Echocardiogram Name: DEANDRE LEYVA Study Date: 11/30/2024 01:42 PM Patient Location: [facility] Gender: Female Patient Class:Outpatient : 1995 Age: 29 yrs Ordering Provider: YOBANI CRESPO Referring Provider: YOBANI CRESPO Performed By: Daphney Dao [facility] Reading Physician: Luc Dominguez MD Reason For Study: Monochorionic diamniotic twin gestation in secondtrimester Data: Number of fetuses: This is a twin gestation. Due date: 04/07/2025. Gestational age: 21w5d. Delivery at: [facility] [place]. Specific Indication: echocardiogram performed formonochorionic diamniotic twins. CONCLUSIONS Fetus 2. Normal cardiac anatomy. Normal intracardiacconnections. Normal right and left ventricular size and function. Normal leftventricular Tei index at 0.24. Normal right ventricular Tei index at 0.36. Nohydrops. There is an abnormal flow profile in the ductus venosus with cessation offlow in atrial systole. There is absent end-diastolic flow in the umbilicalartery. Results discussed with patient. No additional echocardiograms are recommended. No cardiac follow-up is required. Technical Information: The study quality is good. A complete two dimensional, spectral andcolor Doppler echocardiogram is performed. position and segmental anatomy: The fetus in breech position. The fetus is located on [facility]-side. The heart is in left chest. The cardiac apex points towards the left.There is normal atrial arrangement, with concordant atrioventricular and ventriculoarterial connections. The abdominal aorta is to the left ofthe spine. There is a left sided stomach. Systemic and pulmonary veins: The systemic venous return is normal. At least one right and one left pulmonary veins are seen returning to the left atrium. Atria and atrial septum: Normal right atrial size. The left atrium is normal in size. The flap ofthe foramen ovale opens in to the left atrium. There is mdnsxyqbcled-ox-lgzx shunting across the foramen ovale. Atrioventricular valves: The tricuspid valve is normal in appearance and motion. There is notricuspid insufficiency. The mitral valve is normal in appearance and motion. Thereis no mitral valve insufficiency. Ventricles and ventricular septum: Normal right ventricular size. Normal right ventricular systolicfunction. Normal right ventricular Tei index at 0.36. Normal left ventricularsize. Normal left ventricular systolic function. Normal left ventricular Teiindex at 0.24. No obvious ventricular level shunting. Outflows tracts: Normal great artery relationship. The right ventricular outflow tract is normal in caliber. The pulmonary valve has normal appearance and motion.There is normal flow across the pulmonary valve. There is unobstructed flowthrough the left ventricular outflow tract. The aortic valve has normal appearanceand motion. There is normal flow across the aortic valve. Great arteries: The main pulmonary artery has normal appearance. There is unobstructedflow in the main pulmonary artery. The pulmonary artery bifurcation is normal.There is unobstructed flow in both branch pulmonary arteries. The ductusarteriosus has normal appearance with normal antegrade flow. There is unobstructed antegrade flow in the ascending aorta. The aortic arch appears normal.There is unobstructed antegrade flow in the aortic arch. Effusions and extracardiac findings: No pericardial effusion. No hydrops. cardiac rhythm: heart rate is regular at 148 bpm. Doppler: There is flow reversal in the ductus venosus during atrial systole. Thereis absent end-diastolic flow in the umbilical artery. echocardiography cannot rule out small atrial or ventricularseptal defects, persistent ductus arteriosus, mild coarctation of the aorta,partial anomalous pulmonary venous return, minor anatomic valve anomalies orcoronary artery anomalies. Time Measurements LVET: 0.17 sec RVET: 0.17 sec Doppler Measurements & Calculations LV Tei Index: 0.24 RV Tei Index: 0.36 MV Close to Open: 0.22 sec TV Close to Open: 0.23 sec Reading Physician: Luc Dominguez MD 11/30/2024 02:07 PM Yobani Crespo MD [facility] ECHO ORDERABLES Edite d Result - Final * ECHO COMPLETE (11/30/2024 1:46 PM AUTO WHEEL ALIGNMENT SPECIALIST) Anatomical Region Laterality Modality Echocardiography 11/30/2024 1:31 PM AUTO WHEEL ALIGNMENT SPECIALIST Narrative 11/30/2024 2:02 PM [facility] [id number]^ZAK^YOBANI Study ID: [id number] [facility] [address] [address] Echocardiogram Name: DEANDRE LEYVA Study Date: 11/30/2024 01:31 PM Patient Location: [facility] Gender: Female Patient Class: Outpatient : 1995 Age: 29 yrs Ordering Provider: YOBANI CRESPO Referring Provider: YOBANI CRESPO Performed By: Daphney Dao RDCS Reading Physician: Luc Dominguez MD Reason For Study: 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 Data: Number of fetuses: This is a twin gestation. Due date: 04/07/2025. Gestational age: 21w5d. Delivery at: [place]. Specific Indication: echocardiogram performed for monochorionic diamniotic twins. CONCLUSIONS Fetus 1. Normal cardiac anatomy. Normal intracardiac connections. Normal right and left ventricular size and function. Normal left ventricular Tei index at 0.49. Normal right ventricular Tei index at 0.49. No hydrops. The results of the echocardiogram were explained to the patient. She is aware that the study was within normal limits with no major cardiac abnormalities. She is aware of the general limitations of echocardiography. No additional echocardiograms are recommended. No cardiac follow-up is required. Technical Information: The study quality is good. A complete two dimensional, spectral and color Doppler echocardiogram is performed. position and segmental anatomy: The fetus in breech position. The fetus is located on maternal's left-side. The heart is in left chest. The cardiac apex points towards the left. There is normal atrial arrangement, with concordant atrioventricular and ventriculoarterial connections. The abdominal aorta is to the left of the spine. There is a left sided stomach. Systemic and pulmonary veins: The systemic venous return is normal. At least one right and one left pulmonary veins are seen returning to the left atrium. Atria and atrial septum: Normal right atrial size. The left atrium is normal in size. The flap of the foramen ovale opens in to the left atrium. There is laminar ealki-li-kfag shunting across the foramen ovale. Atrioventricular valves: The tricuspid valve is normal in appearance and motion. There is no tricuspid insufficiency. The mitral valve is normal in appearance and motion. There is no mitral valve insufficiency. Ventricles and ventricular septum: Normal right ventricular size. Normal right ventricular systolic function. Normal right ventricular Tei index at 0.49. Normal left ventricular size. Normal left ventricular systolic function. Normal left ventricular Tei index at 0.49. No obvious ventricular level shunting. Outflows tracts: Normal great artery relationship. The right ventricular outflow tract is normal in caliber. The pulmonary valve has normal appearance and motion. There is normal flow across the pulmonary valve. There is unobstructed flow through the left ventricular outflow tract. The aortic valve has normal appearance and motion. There is normal flow across the aortic valve. Great arteries: The main pulmonary artery has normal appearance. There is unobstructed flow in the main pulmonary artery. The pulmonary artery bifurcation is normal. There is unobstructed flow in both branch pulmonary arteries. The ductus arteriosus has normal appearance with normal antegrade flow. There is unobstructed antegrade flow in the ascending aorta. The aortic arch appears normal. There is unobstructed antegrade flow in the aortic arch. Effusions and extracardiac findings: No pericardial effusion. No hydrops. cardiac rhythm: heart rate is regular at 142 bpm. Doppler: There is normal flow in the ductus venosus, umbilical artery and umbilical vein. echocardiography cannot rule out small atrial or ventricular septal defects, persistent ductus arteriosus, mild coarctation of the aorta, partial anomalous pulmonary venous return, minor anatomic valve anomalies or coronary artery anomalies. Time Measurements LVET: 0.18 sec RVET: 0.17 sec Doppler Measurements & Calculations LV Tei Index: 0.49 RV Tei Index: 0.49 MV Close to Open: 0.26 sec TV Close to Open: 0.26 sec Reading Physician: Luc Dominguez MD 11/30/2024 02:02 PM Procedure Note Luc Dominguez MD - 11/30/2024 [id number]^ZAK^YOBANI Study ID:[id number] [facility] [place] [address] Echocardiogram Name: DEANDRE LEYVA Study Date: 11/30/2024 01:31 PM Patient Location: [facility] Gender: Female Patient Class:Outpatient : 1995 Age: 29 yrs Ordering Provider: YOBANI CRESPO Referring Provider: YOBANI CRESPO Performed By: Daphney Dao RDCS Reading Physician: Luc Dominguez MD Reason For Study: Monochorionic diamniotic twin gestation in secondtrimester Data: Number of fetuses: This is a twin gestation. Due date: 04/07/2025. Gestational age: 21w5d. Delivery at: [place]. Specific Indication: echocardiogram performed formonochorionic diamniotic twins. CONCLUSIONS Fetus 1. Normal cardiac anatomy. Normal intracardiacconnections. Normal right and left ventricular size and function. Normal leftventricular Tei index at 0.49. Normal right ventricular Tei index at 0.49. Nohydrops. The results of the echocardiogram were explained to the patient. Sheis aware that the study was within normal limits with no major cardiac abnormalities. She is aware of the general limitations of echocardiography. No additional echocardiograms are recommended.No cardiac follow-up is required. Technical Information: The study quality is good. A complete two dimensional, spectral andcolor Doppler echocardiogram is performed. position and segmental anatomy: The fetus in breech position. The fetus is located on maternal'sleft-side. The heart is in left chest. The cardiac apex points towards the left.There is normal atrial arrangement, with concordant atrioventricular and ventriculoarterial connections. The abdominal aorta is to the left ofthe spine. There is a left sided stomach. Systemic and pulmonary veins: The systemic venous return is normal. At least one right and one left pulmonary veins are seen returning to the left atrium. Atria and atrial septum: Normal right atrial size. The left atrium is normal in size. The flap ofthe foramen ovale opens in to the left atrium. There is msgndcnuhmmw-an-umgw shunting across the foramen ovale. Atrioventricular valves: The tricuspid valve is normal in appearance and motion. There is notricuspid insufficiency. The mitral valve is normal in appearance and motion. Thereis no mitral valve insufficiency. Ventricles and ventricular septum: Normal right ventricular size. Normal right ventricular systolicfunction. Normal right ventricular Tei index at 0.49. Normal left ventricularsize. Normal left ventricular systolic function. Normal left ventricular Teiindex at 0.49. No obvious ventricular level shunting. Outflows tracts: Normal great artery relationship. The right ventricular outflow tract is normal in caliber. The pulmonary valve has normal appearance and motion.There is normal flow across the pulmonary valve. There is unobstructed flowthrough the left ventricular outflow tract. The aortic valve has normal appearanceand motion. There is normal flow across the aortic valve. Great arteries: The main pulmonary artery has normal appearance. There is unobstructedflow in the main pulmonary artery. The pulmonary artery bifurcation is normal.There is unobstructed flow in both branch pulmonary arteries. The ductusarteriosus has normal appearance with normal antegrade flow. There is unobstructed antegrade flow in the ascending aorta. The aortic arch appears normal.There is unobstructed antegrade flow in the aortic arch. Effusions and extracardiac findings: No pericardial effusion. No hydrops. cardiac rhythm: heart rate is regular at 142 bpm. Doppler: There is normal flow in the ductus venosus, umbilical artery andumbilical vein. echocardiography cannot rule out small atrial or ventricularseptal defects, persistent ductus arteriosus, mild coarctation of the aorta,partial anomalous pulmonary venous return, minor anatomic valve anomalies orcoronary artery anomalies. Time Measurements LVET: 0.18 sec RVET: 0.17 sec Doppler Measurements & Calculations LV Tei Index: 0.49 RV Tei Index: 0.49 MV Close to Open: 0.26 sec TV Close to Open: 0.26 sec Reading Physician: Luc Dominguez MD 11/30/2024 02:02 PM Yobani Crespo MD CV PEDS ECHO ORDERABLES Edite d Result - Final * MFM [facility] Comprehensive (11/14/2024 11:59 AM AUTO WHEEL ALIGNMENT SPECIALIST) Anatomical Region Laterality Modality Ultrasound 11/14/2024 10:2 4 AM AUTO WHEEL ALIGNMENT SPECIALIST Impressions 11/14/2024 4:40 PM AUTO WHEEL ALIGNMENT SPECIALIST IMPRESSION ----- Monochorionic diamniotic twin gestation at [...] anemia polycythemia syndrome. Narrative 11/14/2024 4:40 PM AUTO WHEEL ALIGNMENT SPECIALIST Comprehensive ----- Pat. Name: DEANDRE LEYVA Study Date: 11/14/2024 10:24am Pat. NO: [id number] Referring MD: ZAKIA CUELLAR Site: Architecture Analyst: Emerita Corona RDMS : 1995 Age: 29 [...] 0 lb 11 oz EFW by Hadlock ([id number]) EFW discordance 30.6 % Head / Face / Neck Biometry: Airplane Rigger 6.9 mm CM 2.6 mm Nasal bone [...] 0 lb 8 oz EFW by Hadlock ([id number]) EFW discordance 30.6 % Head / Face / Neck Biometry: Airplane Rigger 6.8 mm CM 4.4 mm Extremities / [...] view. RVOT view. LVOT view. 3-vessel view. 4-oubohi-goecxqc view. Situs. Aortic arch view. Bicaval view. [...] Thorax 4-chamber view. RVOT view. LVOT view. 3-segcel-rzyxhfs view. Aortic arch view. sex: female. Fetus [...] recommendation. She was again offered referral to [facility] for a second opinion/discussion about options in [...] the patient (reviewing medical records/tests), in direct adjo-zo-bxvf contact with the patient counseling and discussing the plan of care, documenting the visit in the electronic medical record, and communicating with other health rn patient care and/or care coordination. Please see note for details. Procedure Note Flower Amato MD - 11/14/2024 Comprehensive ----- Pat. Name: DEANDRE LEYVA Study Date: 11/14/2024 10:24am Pat. NO: [id number] Referring MD: ZAKIA CUELLAR Site: Architecture Analyst: Emerita Corona RDMS : 1995 Age: 29 [...] EFW (lb,oz) 0 lb 11oz EFW by Hadlock([id number]) EFW discordance 30.6% Head / Face / Neck Biometry: Airplane Rigger 6.9mm CM 2.6mm Nasal bone 7.8mm Fetus 2: BIOMETRY ----- BPD 42.9mm 19w 0dHadlock OFD 55.1mm 18w 2dNicolaides HC 156.8mm 18w 4dHadlock Cerebellum tr 18.1mm 18w 0dNicolaides Nuchal fold 3.0mm AC 128.0mm 18w 3d 15%Hadlock Femur 24.5mm 17w 3dHadlock Humerus 23.5mm 17w 2dJeanty Weight Calculation: EFW 219g 2%Hadlock EFW (lb,oz) 0 lb 8oz EFW by Hadlock([id number]) EFW discordance 30.6% Head / Face / Neck Biometry: Airplane Rigger 6.8mm CM 4.4mm Extremities / Bony Struc [...] 4-chamber view. RVOT view. LVOT view.3-vessel view. 1-vutcem-ssufshn view. Situs. Aortic arch view. Bicavalview. Ductal [...] / Thorax 4-chamber view. RVOT view. LVOT view.9-tlruxu-mrfegry view. Aortic arch view. sex: female. Fetus [...] the recommendation. [facility]/discussion about options in [...] see the patient(reviewing medical records/tests), in direct lmkv-wc-ufdn contact with the patient counseling and discussingthe plan of care, documenting the visit in the electronic medical record,and communicating with other health rn patient care and/or care coordination. Please see note for [...] transfusionsyndrome or twin anemia polycythemia syndrome. us Yobani Crespo MD [facility] US ORDERABLES Edited Result - Final * [facility] Twins US OB Complete 2/3 Tri (10/19/2024 1:39 PM AUTO WHEEL ALIGNMENT SPECIALIST) Anatomical Region Laterality Modality Ultrasound 10/19/2024 11:0 2 AM AUTO WHEEL ALIGNMENT SPECIALIST Impressions 10/21/2024 3:34 PM AUTO WHEEL ALIGNMENT SPECIALIST IMPRESSION ----- Monochorionic diamniotic twin gestation at 15w 5d gestational age. Fetus 1 1. No anomalies commonly detected by ultrasound were identified in the limited anatomic survey within the limits of ultrasound. 2. Growth parameters and estimated weight were consistent with gestational age predicted by assigned TOMMIE. 3. The amniotic fluid volume appeared normal. A normal bladder was visualized. 4. The umbilical artery Doppler studies were within normal limits. 5. The middle cerebral artery Doppler studies demonstrate increased MCA PSV. Fetus 2 1. No anomalies commonly detected by ultrasound were identified in the limited anatomic survey within the limits of ultrasound. 2. Growth parameters and estimated weight were consistent with growth restriction. The inter-twin discordance was 26.5 %. 3. The amniotic fluid volume appeared normal. A normal bladder was visualized. 4. The umbilical artery Doppler studies demonstrate absent end diastolic flow. 5. The middle cerebral artery Doppler studies demonstrate increased MCA PSV. 6. A marginal cord insertion is noted. On transabdominal imaging the cervix appears long and closed. Narrative 10/21/2024 3:34 PM AUTO WHEEL ALIGNMENT SPECIALIST Trim ----- Pat. Name: DEANDRE LEYVA Study Date: 10/19/2024 11:02am Pat. NO: [id number] Referring MD: ZAKIA CUELLAR Site: Architecture Analyst: Chantell Jarquin RDMS : 1995 Age: 29 ----- INDICATION ----- Monochorionic, Diamniotic Twin gestation METHOD ----- Transabdominal ultrasound examination. View: Suboptimal view: limited by early gestational age ----- Twin . Number of fetuses: 2 DATING ----- Date Details Gest. age TOMMIE LMP 07/01/2024 15 w + 5 d 04/07/2025 Previous U/S 08/27/2024 GA, GA 7 w + 6 d 15 w + 3 d 04/09/2025 U/S Fetus 1 10/19/2024 based upon AC, BPD, Femur, HC 16 w + 3 d 04/02/2025 U/S Fetus 2 based upon AC, BPD, Femur, HC 15 w + 2 d 04/10/2025 Assigned dating based on the LMP, selected on 10/19/2024 15 w + 5 d 04/07/2025 Fetus 1: GENERAL EVALUATION ----- Cardiac activity present. FHR 148 bpm. movements: visualized. Presentation: breech, maternal left, presenting Placenta: Anterior, No Previa, > 2 cm from internal os, thin dividing membrane Umbilical cord: 3 vessel cord Amniotic fluid: Amount of AF: normal. MVP 3.7 cm Fetus 2: GENERAL EVALUATION ----- Cardiac activity present. FHR 164 bpm. movements: visualized. Presentation: cephalic, maternal right, superior Placenta: Anterior, No Previa, > 2 cm from internal os, thin dividing membrane Umbilical cord: 3 vessel cord, marginal insertion Amniotic fluid: Amount of AF: normal. MVP 3.6 cm Fetus 1: BIOMETRY ----- BPD 34.4 mm 16w 4d Hadlock OFD 43.3 mm 15w 2d Nicolaides HC 124.1 mm 16w 2d Hadlock Cerebellum tr 15.6 mm 15w 4d Nicolaides Nuchal fold 3.1 mm AC 106.7 mm 16w 4d 80% Hadlock Femur 20.5 mm 16w 1d Hadlock Humerus 18.9 mm 15w 4d Manav Weight Calculation: EFW 153 g 80% Hadlock EFW (lb,oz) 0 lb 5 oz EFW by Hadlock ([id number]) EFW discordance 26.5 % Head / Face / Neck Biometry: Airplane Rigger 6.3 mm CM 2.2 mm Nasal bone 4.1 mm Fetus 2: BIOMETRY ----- BPD 31.4 mm 15w 6d Hadlock OFD 38.8 mm -/- Nicolaides HC 112.9 mm 15w 3d Hadlock Cerebellum tr 15.8 mm 15w 6d Nicolaides Nuchal fold 2.1 mm AC 89.7 mm 15w 1d 34% Hadlock Femur 16.0 mm 14w 5d Hadlock Humerus 16.1 mm 14w 4d Manav Weight Calculation: EFW 113 g 9% Hadlock EFW (lb,oz) 0 lb 4 oz EFW by Hadlock ([id number]-FL) EFW discordance 26.5 % Head / Face / Neck Biometry: Airplane Rigger 6.7 mm CM 2.5 mm Fetus 1: ANATOMY ----- Head / Neck Right choroid plexus: Mottled Left choroid plexus: Mottled The following structures appear normal: Head / Neck Cranium. Head size. Head shape. Lateral ventricles. Midline falx. Cerebellum. Cisterna magna. Parenchyma. Thalami. Vermis. Neck. Nuchal fold. Face Lips. Profile. Nose. Maxilla. Mandible. Orbits. Lens. Heart / Thorax RVOT view. LVOT view. Situs. Aortic arch view. Bicaval view. [...] leg. Right foot. Left leg. Left foot. The following structures could not be adequately visualized: Head / Neck Cavum septi pellucidi. Heart / Thorax 4-chamber view. 3-vessel view. 9-jqmlkq-jhrowbx view. sex: female. Fetus 2: ANATOMY ----- The following structures appear normal: Head / Neck Cranium. Head size. Head shape. Lateral ventricles. Choroid plexus. Midline falx. Cerebellum. Cisterna magna. Parenchyma. Thalami. Vermis. Neck. Nuchal fold. Heart / Thorax Situs. Cardiac position. Cardiac size. Cardiac rhythm. Right lung. Left lung. Abdomen Abdom. wall. Cord insertion. Stomach. Kidneys. Bladder. Liver. Bowel. Spine Cervical spine. Thoracic spine. Lumbar spine. Extremities / Skeleton Arms. Right arm. Left arm. Legs. Right leg. Right foot. Left leg. Left foot. The following structures could not be adequately visualized: Head / Neck Cavum septi pellucidi. Face Orbits. Lens. Heart / Thorax 4-chamber view. RVOT view. LVOT view. 3-vessel view. Spine Sacral spine. Extremities / Skeleton Right hand. Left hand. The following structures could not be visualized: Face Lips. Profile. Nose. Maxilla. Mandible. Heart / Thorax 3-zjgqrs-jupxmop view. Aortic arch view. Bicaval view. Ductal arch view. Superior vena cava. Inferior vena cava. Diaphragm. Abdomen Genitals. sex: female. Fetus 1: DOPPLER ----- Umbilical Artery: normal PI 1.62 HR 148 bpm Mid Cerebral Artery: abnormal PS 32.40 cm/s PS 1.55 MoM Ductus Venosus: normal Fetus 2: DOPPLER ----- Umbilical Artery: abnormal, Absent End Diastolic Flow Mid Cerebral Artery: abnormal PS 37.56 cm/s PS 1.80 MoM Ductus Venosus: normal MATERNAL STRUCTURES ----- Cervix Visualized Appearance: normal, normal Cervical length 37.6 mm Right Ovary Visualized Left Ovary Visualized RECOMMENDATION ----- I discussed the findings on today's ultrasound with the patient. First we reviewed that selective growth restriction of Twin 2 is noted on today's US. We discussed that selective growth restriction is noted on today's US. 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 We discussed the definition of this diagnosis and the underlying etiology likely related to relative placental share of the single placenta and the inter-twin vascular anastomoses. We reviewed that sFGR in monochorionic twins confers a risk for both twins given their known placental anastomoses, but that in sFGR, the smaller co-twin is likely dependent on the existence of these placental anastomoses. We reviewed that there can be progression of Doppler findings, but that there can also be stabilization and in some cases even some intermittent improvements. We reviewed that the optimal management for type 2 selective FGR is not known as the course varies for each set of twins and management must be individualized; we did review that was likely and would be dependent on growth and Dopplers as the progresses. We discussed options including selective fetoscopic laser photocoagulation, which has a significant risk of loss of the smaller co-twin, but may also reduce the chance of loss of twin 1 or neurodevelopemental consequences in twin 1 if twin 2 were to pass away in utero. We also discussed expectant management, which given gestational age and lack of amnion chorion fusion, would be the best option at this gestational age. We also discussed the option a referral to the [facility] to discuss the option of SLFP further, which the couple decline today and will await the results of the next US. We reviewed the close surveillance is indicated given AEDF in twin 2 and therefore we will plan to see Deandre weekly at that time to continue to monitor status, amniotic fluid and Dopplers closely. We also discussed that there is a risk of loss during this , prior to her scheduled follow-up; Deandre did as how she would know if this is happening and we reviewed that this would likely be an US diagnosis, as she is not yet feeling movement. Certainly today's information was very unexpected for this family and we will continue to review US findings with them at each follow up visit and will monitor the very closely. We focused our follow up plans on what we will be looking for at these follow up visits, and also did review what we hope to see. We will plan serial growth US every 3 weeks, comprehensive US in 3 weeks as well and will also coordinate a echocardiogram with Pediatric Cardiology at 22 weeks gestation. Return to primary provider for continued care. Thank-you for the opportunity to participate in the care of this patient. If you have questions regarding today's evaluation or if we can be of further service, please contact the [facility]. anomalies may be present but not detected I spent a total of 60 minutes (excluding the ultrasound interpretation) on the date of this encounter including preparing to see the patient (reviewing medical records/tests), in direct eqyl-fr-shby contact with the patient during the visit counseling and discussing the plan of care and documenting the visit in the electronic medical record. Procedure Note Yobani Crespo MD - 10/22/2024 / Trim ----- Pat. Name: DEANDRE LEYVA Study Date: 10/19/2024 11:02am Pat. NO: [id number] Referring MD: ZAKIA CUELLAR Site: Architecture Analyst: Chantell Jarquin RDMS : 1995 Age: 29 ----- INDICATION ----- Monochorionic, Diamniotic Twin gestation METHOD ----- Transabdominal ultrasound examination. View: Suboptimal view: limited byearly gestational age ----- Twin . Number of fetuses: 2 DATING ----- DateDetailsGest. age TOMMIE LMP w + 5 d 04/07/2025 Previous U/S 08/27/2024 GA, GA7 w + 6 d15 w + 3 d 04/09/2025 U/S Fetus 1 10/19/2024 basedupon AC, BPD, Femur, HC 16w + 3 d 04/02/2025 U/S Fetus 2based upon AC, BPD, Femur, HC15 w + 2 d 04/10/2025 Assigned dating based on the LMP, selected on w + 5 d 04/07/2025 Fetus 1: GENERAL EVALUATION ----- Cardiac activity present. FHR 148 bpm. movements: visualized.Presentation: breech, maternal left, presenting Placenta: Anterior, No Previa, > 2 cm from internal os, thin dividingmembrane Umbilical cord: 3 vessel cord Amniotic fluid: Amount of AF: normal. MVP 3.7 cm Fetus 2: GENERAL EVALUATION ----- Cardiac activity present. FHR 164 bpm. movements: visualized.Presentation: cephalic, maternal right, superior Placenta: Anterior, No Previa, > 2 cm from internal os, thin dividingmembrane Umbilical cord: 3 vessel cord, marginal insertion Amniotic fluid: Amount of AF: normal. MVP 3.6 cm Fetus 1: BIOMETRY ----- BPD 34.4mm 16w 4dHadlock OFD 43.3mm 15w 2dNicolaides HC 124.1mm 16w 2dHadlock Cerebellum tr 15.6mm 15w 4dNicolaides Nuchal fold 3.1mm AC 106.7mm 16w 4d 80%Hadlock Femur 20.5mm 16w 1dHadlock Humerus 18.9mm 15w 4dJeanty Weight Calculation: EFW 153g 80%Hadlock EFW (lb,oz) 0 lb 5oz EFW by Hadlock(PSF-OP-RO-FL) EFW discordance 26.5% Head / Face / Neck Biometry: Airplane Rigger 6.3mm CM 2.2mm Nasal bone 4.1mm Fetus 2: BIOMETRY ----- BPD 31.4mm 15w 6dHadlock OFD 38.8mm -/-Nicolaides HC 112.9mm 15w 3dHadlock Cerebellum tr 15.8mm 15w 6dNicolaides Nuchal fold 2.1mm AC 89.7mm 15w 1d 34%Hadlock Femur 16.0mm 14w 5dHadlock Humerus 16.1mm 14w 4dJeanty Weight Calculation: EFW 113g 9%Hadlock EFW (lb,oz) 0 lb 4oz EFW by Hadlock(IDE-SH-WU-FL) EFW discordance 26.5% Head / Face / Neck Biometry: Airplane Rigger 6.7mm CM 2.5mm Fetus 1: ANATOMY ----- Head / Neck Right choroid plexus: Mottled Left choroid plexus: Mottled The following structures appear normal: Head / Neck Cranium. Head size. Head shape.Lateral ventricles. Midline falx. Cerebellum. Cisterna magna. Parenchyma.Thalami. Vermis. Neck. Nuchal fold. Face Lips. Profile. Nose. Maxilla.Mandible. Orbits. Lens. Heart / Thorax RVOT view. LVOT view. Situs. Aorticarch view. Bicaval view. Ductal arch view. Superior vena cava. Inferiorvena cava. Cardiac position. Cardiac size. Cardiac rhythm. Right lung. Left lung.Diaphragm. Abdomen Abdom. wall. Cord insertion. Stomach.Kidneys. Bladder. Liver. Bowel. Genitals. Spine Cervical spine. Thoracic spine.Lumbar spine. Sacral spine. Extremities / Skeleton Arms. Right arm. Right hand. Left arm.Left hand. Legs. Right leg. Right foot. Left leg. Left foot. The following structures could not be adequately visualized: Head / Neck Cavum septi pellucidi. Heart / Thorax 4-chamber view. 3-vessel view.7-tpqwoa-hlqooap view. sex: female. Fetus 2: ANATOMY ----- The following structures appear normal: Head / Neck Cranium. Head size. Head shape.Lateral ventricles. Choroid plexus. Midline falx. Cerebellum. Cisternamagna. Parenchyma. Thalami. Vermis. Neck. Nuchal fold. Heart / Thorax Situs. Cardiac position. Cardiac size.Cardiac rhythm. Right lung. Left lung. Abdomen Abdom. wall. Cord insertion. Stomach.Kidneys. Bladder. Liver. Bowel. Spine Cervical spine. Thoracic spine.Lumbar spine. Extremities / Skeleton Arms. Right arm. Left arm. Legs. Rightleg. Right foot. Left leg. Left foot. The following structures could not be adequately visualized: Head / Neck Cavum septi pellucidi. Face Orbits. Lens. Heart / Thorax 4-chamber view. RVOT view. LVOT view.3-vessel view. Spine Sacral spine. Extremities / Skeleton Right hand. Left hand. The following structures could not be visualized: Face Lips. Profile. Nose. Maxilla.Mandible. Heart / Thorax 2-tqhceu-bffcdnc view. Aortic archview. Bicaval view. Ductal arch view. Superior vena cava. Inferior venacava. Diaphragm. Abdomen Genitals. sex: female. Fetus 1: DOPPLER ----- Umbilical Artery: normal PI 1.62 HR 148bpm Mid Cerebral Artery: abnormal PS 32.40cm/s PS 1.55MoM Ductus Venosus: normal Fetus 2: DOPPLER ----- Umbilical Artery: abnormal, Absent End Diastolic Flow Mid Cerebral Artery: abnormal PS 37.56cm/s PS 1.80MoM Ductus Venosus: normal MATERNAL STRUCTURES ----- Cervix Visualized Appearance: normal, normal Cervical length 37.6 mm Right Ovary Visualized Left Ovary Visualized RECOMMENDATION ----- I discussed the findings on today's ultrasound with the patient. First wereviewed that selective growth restriction of Twin 2 is noted ontoday's US. We discussed that selective growth restriction is noted on today'Facundo. 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 We discussed thedefinition of this diagnosis and the underlying etiology likely related torelative placental share of the single placenta and the inter-twin vascular anastomoses. We reviewed thatsFGR in monochorionic twins confers a risk for both twins given theirknown placental anastomoses, but that in sFGR, the smaller co-twin is likely dependent onthe existence of these placental anastomoses. We reviewed that there canbe progression of Doppler findings, but that there can also be stabilization and in somecases even some intermittent improvements. We reviewed that the optimalmanagement for type 2 selective FGR is not known as the course varies for each set of twins andmanagement must be individualized; we did review that waslikely and would be dependent on growth and Dopplers as the progresses. Wediscussed options including selective fetoscopic laser photocoagulation,which has a significant risk of loss of the smaller co-twin, but may also reduce the chance ofloss of twin 1 or neurodevelopemental consequences in twin 1 if twin 2were to pass away in utero. We also discussed expectant management, which given gestational age andlack of amnion chorion fusion, would be the best option at thisgestational age. We also discussed the option a referral to [facility] todiscuss the option of SLFP further, which the couple decline today andwill await the results of the next US. We reviewed the close surveillance is indicated given AEDF in twin 2and therefore we will plan to see Deandre weekly at that time to continue tomonitor status, amniotic fluid and Dopplers closely. We also discussed that there is arisk of loss during this , prior to her scheduledfollow-up; Deandre did as how she would know if this is happening and we reviewed that this would likely be an USdiagnosis, as she is not yet feeling movement. Certainly today'sinformation was very unexpected for this family and we will continue to review US findings withthem at each follow up visit and will monitor the very closely.We focused our follow up plans on what we will be looking for at these follow up visits, and alsodid review what we hope to see. We will plan serial growth US every 3weeks, comprehensive US in 3 weeks as well and will also coordinate a echocardiogram withPediatric Cardiology at 22 weeks gestation. Return to primary provider for continued care. Thank-you for the opportunity to participate in the care of this patient.If you have questions regarding today's evaluation or if we can be offurther service, please contact the [facility]. anomalies may be present but not detected I spent a total of 60 minutes (excluding the ultrasound interpretation) onthe date of this encounter including preparing to see the patient(reviewing medical records/tests), in direct shgo-wc-unjy contact with the patient during the visitcounseling and discussing the plan of care and documenting the visit inthe electronic medical record. IMPRESSION ----- Monochorionic diamniotic twin gestation at 15w 5d gestational age. Fetus 1 1. No anomalies commonly detected by ultrasound were identified inthe limited anatomic survey within the limits of prenatalultrasound. 2. Growth parameters and estimated weight were consistent withgestational age predicted by assigned TOMMIE. 3. The amniotic fluid volume appeared normal. A normal bladder wasvisualized. 4. The umbilical artery Doppler studies were within normal limits. 5. The middle cerebral artery Doppler studies demonstrate increased MCAPSV. Fetus 2 1. No anomalies commonly detected by ultrasound were identified inthe limited anatomic survey within the limits of prenatalultrasound. 2. Growth parameters and estimated weight were consistent with fetalgrowth restriction. The inter-twin discordance was 26.5 %. 3. The amniotic fluid volume appeared normal. A normal bladder wasvisualized. 4. The umbilical artery Doppler studies demonstrate absent end diastolicflow. 5. The middle cerebral artery Doppler studies demonstrate increased MCAPSV. 6. A marginal cord insertion is noted. On transabdominal imaging the cervix appears long and closed. Zakia Cuellar MD [facility] ORDERABLES Edited Re sult - Final from Last 3 Months Insurance [facility] Care Teams Oleo Hasher And Renderer Relationship Specialty Start Date End Date No Ref-Primary, Physician PCP - General 12/04/21 Flower Amato MD [address] [place] [address] Assigned OBGYN Provider 11/22/24
--- OUTSIDE RECORDS SUMMARY | 2024-12-01 10:34 | XMS_ITS | Encounter Summary ---
Author Organization [facility] Address [address] [place] [id number] Care Team Providers Care Community Health Advocate Name Role Phone No Ref-Primary, Physician Primary Care Provider Flower Amato MD Unavailable [phone] Encounter Details Date Type Department Care Team (Latest Contact Info) Description 11/30/2024 Travel Social History Tobacco Use Types Packs/Day Years [...] on file Legal Sex Female 11:44 PM CPC Gender Identity Not on file Sexual Orientation Not on file documented as of this encounter Plan of Treatment Upcoming Encounters Date Type Department Care Team (Late st Contact Info) Description 12/03/2024 2:15 PM CPC Appointment [facility] [place] [address] [place] [phone] Nicole Núñez MD [address] [place] [address] 12/03/2024 2:45 PM CPC Office Visit [facility] [place] [address] [place] [phone] Nicole Núñez MD [address] [place] [address] 12/06/2024 9:30 AM CPC Appointment [facility] [place] [address] [place] [phone] Nicole Núñez MD [address] [place] [address] 12/06/2024 10:00 AM CPC Office Visit [facility] [place] [address] [place] [phone] Nicole Núñez MD [address] [place] [address] 12/13/2024 9:30 AM CPC Appointment [facility] [place] [address] [place] [phone] Nicole Núñez MD [address] [place] [address] 12/13/2024 10:00 AM CPC Office Visit [facility] [place] [address] [place] [phone] Nicole Núñez MD [address] [place] [address] 12/19/2024 9:30 AM CPC Appointment [facility] [place] [address] [place] [phone] Nicole Núñez MD [address] [place] [phone] 12/19/2024 10:00 AM CPC Office Visit [facility] [place] [address] [place] [phone] Nicole Núñez MD [address] [place] [address] 12/28/2024 10:15 AM CPC Appointment [facility] [place] [address] [place] [phone] Diane Lopez MD [address] [place], [place] [address] 12/28/2024 10:45 AM CPC Office Visit [facility] [place] [address] [place] [phone] Diane Lopez MD [address] [place], [place] [address] 01/11/2025 10:15 AM CDT Appointment [facility] [place] [address] [place] [phone] Diane Lopez MD [address] [place], [place] [phone] 01/11/2025 10:45 AM CDT Office Visit [facility] [place] [address] [place] [phone] Diane Lopez MD [address] [place] [address] documented as of this encounter Visit Diagnoses Not on filedocumented in this encounter Care Teams Community Health Advocate Relationship Specialty Start Date End Date No Ref-Primary, Physician PCP - General 12/04/21 Flower Amato MD [address] [place] [address] Assigned OBGYN Provider 11/22/24 documented as of this encounter
--- OUTSIDE RECORDS SUMMARY | 2024-12-01 10:34 | XMS_ITS | Encounter Summary ---
Author Organization [facility] Address [address] [place] [address] Care Team Providers Care Children'S Literature Professor Name Role Phone No Ref-Primary, Physician Primary Care Provider Encounter Details Date Type Department Care Team (Latest Contact Info) Description 11/08/2024 Travel Social History Tobacco Use Types Packs/Day [...] on file Legal Sex Female 11:44 PM OCEANOLOGY TEACHER Gender Identity Not on file Sexual Orientation Not on file documented as of this encounter Plan of Treatment Upcoming Encounters Date Type Department Care Team (Late st Contact Info) Description 12/03/2024 2:15 PM OCEANOLOGY TEACHER Appointment [facility] [place] [address] [place], [place] [address] [place] [phone] Nicole Núñez MD [address] [place] [phone] 12/03/2024 2:45 PM OCEANOLOGY TEACHER Office Visit [facility] [place] [address] [place] [phone] Nicole Núñez MD [address] [place] [address] 12/06/2024 9:30 AM OCEANOLOGY TEACHER Appointment [facility] [place] [address] [place] [phone] Nicole Núñez MD [address] [place] [address] 12/06/2024 10:00 AM OCEANOLOGY TEACHER Office Visit [facility] M[facility] [place] [address] [facility] [address] [place] [phone] Nicole Núñez MD [address] [place] [phone] 12/13/2024 9:30 AM OCEANOLOGY TEACHER Appointment [facility] [place] [address] [place] [phone] Nicole Núñez MD [address] [place] [address] 12/13/2024 10:00 AM OCEANOLOGY TEACHER Office Visit [facility] [place] [address] [place] [phone] Nicole Núñez MD [address] [place] [phone] 12/19/2024 9:30 AM OCEANOLOGY TEACHER Appointment [facility] [place] [address] [place] [phone] Nicole Núñez MD [address] [place] [address] 12/19/2024 10:00 AM OCEANOLOGY TEACHER Office Visit [facility] [place] [address] [place] [phone] Nicole Núñez MD [address] [place] [address] 12/28/2024 10:15 AM OCEANOLOGY TEACHER Appointment [facility] [place] [address] [place] [phone] Diane Lopez MD [address] [place], [place] [address] 12/28/2024 10:45 AM OCEANOLOGY TEACHER Office Visit [facility] [place] [address] [place] [phone] Diane Lopez MD [address] [place], [place] [address] 01/11/2025 10:15 AM CDT Appointment [facility] [place] [address] [facility] [address] [place] [phone] Diane Lopez MD [address] [place], [place] [address] 01/11/2025 10:45 AM CDT Office Visit [facility] [place] [address] [facility] [address] [place] [phone] Diane Lopez MD [address] [place], [place] [address] documented as of this encounter Visit Diagnoses Not on filedocumented in this encounter Care Teams Children'S Literature Professor Relationship Specialty Start Date End Date No Ref-Primary, Physician PCP - General 2/4/22 documented as of this encounter
--- OUTSIDE RECORDS SUMMARY | 2024-12-01 10:34 | XMS_ITS | Continuity of Care Document ---
Author Organization [place] [facility] Address [address] [facility] [address] [place] [address] Assessment Encounter Date Assessment Date Assessment LastModified by Organization Details LastModified Time 11/07/2024 11/07/2024 ASSESSMENT: Patient is a good [...] Organization Details Recorded Time Low back pain 567613040 Active 2023 Moise Mensah DC [address] [facility], [place], [address], [place] [facility] 4 18:46:52 Thoracic segmental dysfunction 390896800 Active 2023 Moise Thomas Tiradoloreto[place]IANA [address] [facility], [place], [address], [place] [facility] 4 18:46:52 Lumbar segmental dysfunction 534206649 Active 2023 Moise Thomas Tiradoloreto[place]IANA [address] [facility], [place], [address], [facility] - [facility] 4 18:46:52 Somatic dysfunction of sacral spine 915722900 Active 2023 Moise Thomas Mensah DC [address] [facility], [facility] [place], [address], [facility] 4 18:46:52 Neck pain 96668228 Active 2023 Moise Mensah DC [address] [facility], [facility] [place], [address], [facility] - [facility] 4 18:46:54 Cervical segmental dysfunction 829054591 Active 2023 Moise Mensah DC [address] [facility], [facility] [place], [address], [facility] - [facility] 4 18:46:54 Problem Notes None recorded. Procedures Surgical History Date Name Laterality Status Provider Name and Address Organization Details Recorded Time 5 86933: Spinal manipulation , 3 to 4 regions completed Gerry Le DC [address] [facility], [place], [address], [facility] - [facility] 11/07/2024 12:03:29 4 20130: Spinal manipulation , 3 to 4 regions completed Moise Mensah DC [address] [facility], [place], [address], [facility] - [facility] 10/30/2024 18:49:30 Imaging Results None recorded. [...] SNOMED-CT Code Diagnosis ICD10 Code Diagnosis Note [id number] Moise Mensah DC [facility] & [address] [place] [address] 10/30/2024 16:03:14 10/30/2024 19:26:07 Lumbar segmental dysfunction 595655909 M99.03 Low back pain 869491761 M54.50 Somatic dy sfunction of sacral spine 485141295 M99.04 Thoracic s egmental dysfunction 912363157 M99.02 Cervical s egmental dysfunction 606567279 M99.01 Neck pain 10266583 M54.2 [id number] Gerry Le DC [facility] & [address] [place] [address] 11/07/2024 10:39:00 11/07/2024 12:17:20 Lumbar segmental dysfunction 151388301 M99.03 Low back pain 218875179 M54.50 Somatic dy sfunction of sacral spine 787491978 M99.04 Thoracic s egmental dysfunction 667882992 M99.02 Health Concerns Section Related Observation LastModified by Organization Detai ls LastModified Time None Recorded Concern Status LastModified by Organization Details LastModified Time None Recorded Payers Encounter Date Sequence Insurance Name Policy Number Policy Samuel Covered Member ID Samuel Member ID Guarantor Name 11/07/2024 [facility] Heather Chávez [id number] Heather Chávez Notes Date Note Type Note Provider Name and Address Organization Details Recorded Time 11/07/2024 text/html HPI - Lumbar SpineReported bypatient.Location: left; With radiation to knee Quality:aching Severity:not changing Timing:morning Aggravating Factors:standing Alleviating Factors:esau Le DC [address] [facility], [place], [address], [facility] 11/07/2024 12:03:52 OBGyn Episode No OBEpisode recorded.
--- OUTSIDE RECORDS SUMMARY | 2024-12-01 10:34 | XMS_ITS | Encounter Summary ---
Author Organization [facility] Address [address] [place] [address] Care Team Providers Care Assistant Boiler Operator Name Role Phone No Ref-Primary, Physician Primary Care Provider Encounter Details Date Type Department Care Team (Latest Contact Info) Description 11/02/2024 Travel Social History Tobacco Use Types Packs/Day [...] on file Legal Sex Female 11:44 PM GRAIN UNLOADER MACHINE Gender Identity Not on file Sexual Orientation Not on file documented as of this encounter Plan of Treatment Upcoming Encounters Date Type Department Care Team (Late st Contact Info) Description 12/03/2024 2:15 PM GRAIN UNLOADER MACHINE Appointment [facility] [place] [address] [place], [place] [address] [phone] Nicole Núñez MD [address] [place] [phone] 12/03/2024 2:45 PM GRAIN UNLOADER MACHINE Office Visit [facility] [place] [address] [place] [phone] Nicole Núñez MD [address] [place] [address] 12/06/2024 9:30 AM GRAIN UNLOADER MACHINE Appointment [facility] [place] [address] [place] [phone] Nicole Núñez MD [address] [place] [address] 12/06/2024 10:00 AM GRAIN UNLOADER MACHINE Office Visit [facility] [place] [address] [facility] [address] [place] [phone] Nicole Núñez MD [address] [place] [address] 12/13/2024 9:30 AM GRAIN UNLOADER MACHINE Appointment [facility] Medicine [place] [address] [place] [phone] Nicole Núñez MD [address] [place] [address] 12/13/2024 10:00 AM GRAIN UNLOADER MACHINE Office Visit [facility] Maternal [facility] [place] [address] [place] [phone] Nicole Núñez MD [address] [place] [address] 12/19/2024 9:30 AM GRAIN UNLOADER MACHINE Appointment [facility] Maternal Medicine [place] [address] [place] [phone] Nicole Núñez MD [address] [place] [address] 12/19/2024 10:00 AM GRAIN UNLOADER MACHINE Office Visit [facility] Maternal Medicine [place] [address] [place] [phone] Nicole Núñez MD [address] [place] [address] 12/28/2024 10:15 AM GRAIN UNLOADER MACHINE Appointment [facility] Medicine [place] [address] [place] [phone] Diane Lopez MD [address] [place], [place] [address] 12/28/2024 10:45 AM GRAIN UNLOADER MACHINE Office Visit [facility] Maternal Medicine [place] [address] [place] [phone] Diane Lopez MD [address] [place], [place] [address] 01/11/2025 10:15 AM CDT Appointment [facility] Medicine [place] [address] [facility] [address] [place] [phone] Diane Lopez MD [address] [place], [place] [address] 01/11/2025 10:45 AM CDT Office Visit [facility] [place] [address] [facility] [address] [place] [phone] Diane Lopez MD [address] [place], [place] [address] documented as of this encounter Visit Diagnoses Not on filedocumented in this encounter Care Teams Assistant Boiler Operator Relationship Specialty Start Date End Date No Ref-Primary, Physician PCP - General 2/4/22 documented as of this encounter
--- OUTSIDE RECORDS SUMMARY | 2024-12-01 10:34 | XMS_ITS | Encounter Summary ---
Author Organization [facility] Address [address] [place] [address] Care Team Providers Care Log Sorter Name Role Phone No Ref-Primary, Physician Primary Care Provider Flower Amato MD Unavailable [phone] Reason for Referral * CV Testing (Routine) - Closed Specialty Diagnoses / Procedures Referred By Contac t Referred To Contact Cardiology Diagnoses Monochorionic diamniotic twin gestation Procedures Echo (TTE) Complete Yobani Lopez MD [address] [place] [address] Phone: tel: fax: [facility] [address] [address] Phone: tel: Referral ID Status Reason Start Date Expiration Date Visits Re quested Visits Authorized [id number] Closed 10/19/2024 10/19/2025 1 1 ITY ANALYST Reason for Visit * CV Testing (Routine) - Closed Specialty Diagnoses / Procedures Referred By Contac t Referred To Contact Cardiology Diagnoses Monochorionic diamniotic twin gestation Procedures Echo (TTE) Yobani Olivares MD [address] [place] [address] Phone: tel: fax: [facility] [address] [place] [address] Phone: tel: Referral ID Status Reason Start Date Expiration Date Visits Re quested Visits Authorized [id number] Closed 10/19/2024 10/19/2025 1 1 Encounter Details Date Type Department Care Team (Latest Contact Info) Description 11/30/2024 12:25 PM QUALITY ANALYST - 11/30/2024 1:30 PM QUALITY ANALYST Hospital Encounter [facility] [address] [place] [phone] Yobani Lopez MD [address] [place] [address] [address] [place] [address] Monochorionic diamniotic twin gestation in [...] on file Legal Sex Female 11:44 PM QUALITY ANALYST Gender Identity Not on file Sexual Orientation [...] st Contact Info) Description 12/03/2024 2:15 PM QUALITY ANALYST Appointment [facility] Maternal Medicine [facility] [address] [place] [phone] Nicole Núñez MD [address] [place] [address] 12/03/2024 2:45 PM QUALITY ANALYST Office Visit [facility] Maternal Medicine [facility] [address] [place] [address] Nicole Núñez MD [address] [place] [address] 12/06/2024 9:30 AM QUALITY ANALYST Appointment [facility] Maternal Medicine [facility] [address] [facility] [address] [place] [phone] Nicole Núñez MD [address] [place] [address] 12/06/2024 10:00 AM QUALITY ANALYST Office Visit [facility] Maternal Medicine [facility] [address] [facility] [address] [place] [phone] Nicole Núñez MD [address] [place] [address] 12/13/2024 9:30 AM QUALITY ANALYST Appointment [facility] [place] [address] [place] [phone] Nicole Núñez MD [address] [facility] [place] [address] 12/13/2024 10:00 AM QUALITY ANALYST Office Visit [facility] Maternal Medicine [place] [address] [place] [phone] Nicole Núñez MD [address] [facility] [facility] [place] [address] 12/19/2024 9:30 AM QUALITY ANALYST Appointment [facility] Maternal Medicine [place] [address] [place] [phone] Nicole Núñez MD [address] [facility] [facility] [place] [address] 12/19/2024 10:00 AM QUALITY ANALYST Office Visit [facility] Maternal Medicine [place] [address] [place] [phone] Nicole Núñez MD [address] [facility] [facility] [place] [address] 12/28/2024 10:15 AM QUALITY ANALYST Appointment [facility] [place] [address] [place] [phone] Yobani Lopez MD [address] [address] 12/28/2024 10:45 AM QUALITY ANALYST Office Visit [facility] [place] [address] [place] [phone] Yobani Lopez MD [address] [place] [address] 01/11/2025 10:15 AM CDT Appointment [facility] Maternal Medicine [facility] [address] [place] [phone] Yobani Lopez MD [address] [place], [place] [address] 01/11/2025 10:45 AM CDT Office Visit [facility] Maternal Medicine [facility] [address] [place] [address] Yobani Lopez MD [address] [place], [place] [address] documented as of this encounter Procedures Procedure Name Priority Date/Time Associated Diagnosis Comments ECHO COMPLETE Routine 11/30/2024 1 :46 PM QUALITY ANALYST 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 Due date: 04/07/2025. Gestational age: 21w5d. Delivery at: [place]. Specific Indication: echocardiogram performed for monochorionic diamniotic [...] to the left atrium. There is laminar psxsg-hr-ozdk shunting across the foramen ovale. Atrioventricular valves: [...] Procedure Note Luc Dominguez MD - 11/30/2024 [id number] [facility] [id number]^[id number]^YOBANI Study ID:[id number] [facility] [address] Echocardiogram Name: HEATHER CHÁVEZ Study Date: 11/30/2024 01:42 PM Patient Location: [facility] Gender: Female Patient Class:Outpatient : [id number] Age: 29 yrs Ordering Provider: YOBANI LOPEZ Referring Provider: YOBANI LOPEZ Performed By: Daphney Dao RDCS Reading Physician: Luc Dominguez MD Reason For Study: [facility]ionic [facility]otic [facility] Data: Number of fetuses: This is a twin gestation. Due date: 04/07/2025. Gestational age: 21w5d. Delivery at: [place]. Specific Indication: echocardiogram performed formonochorionic diamniotic twins. [...] breech position. The fetus [facility]. The heart is in left chest. [...] in to the left atrium. There is abhcoijqkpmu-uy-isek shunting across the foramen ovale. 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
--- OUTSIDE RECORDS SUMMARY | 2024-12-01 10:34 | XMS_ITS | Encounter Summary ---
Author Organization [facility] Address [address] [place] [address] Care Team Providers Care Anthropology Professor Name Role Phone No Ref-Primary, Physician Primary Care Provider Flower Amato MD Unavailable [phone] Encounter Details Date Type Department Care Team (Latest Contact Info) Description 11/22/2024 Travel Social History Tobacco Use Types Packs/Day [...] on file Legal Sex Female 11:44 PM CUSTOMER DATA TECHNICIAN Gender Identity Not on file Sexual Orientation Not on file documented as of this encounter Plan of Treatment Upcoming Encounters Date Type Department Care Team (Late st Contact Info) Description 12/03/2024 2:15 PM CUSTOMER DATA TECHNICIAN Appointment [facility] [place] [address] [place] [phone] Nicole Núñez MD [address] [place] [address] 12/03/2024 2:45 PM CUSTOMER DATA TECHNICIAN Office Visit [facility] [place] [address] [place] [address] Nicole Núñez MD [address] [place] [address] 12/06/2024 9:30 AM CUSTOMER DATA TECHNICIAN Appointment [facility] Medicine [facility] [place] [address] [place] [phone] Nicole Núñez MD [address] [place] [address] 12/06/2024 10:00 AM CUSTOMER DATA TECHNICIAN Office Visit [facility] Maternal Medicine [place] [address] [place] [phone] Nicole Núñez MD [address] [place] [address] 12/13/2024 9:30 AM CUSTOMER DATA TECHNICIAN Appointment [facility] Maternal Medicine [place] [address] [place] [phone] Nicole Núñez MD [address] [place] [address] 12/13/2024 10:00 AM CUSTOMER DATA TECHNICIAN Office Visit [facility] Maternal Medicine [place] [address] [place] [phone] Nicole Núñez MD [address] [place] [address] 12/19/2024 9:30 AM CUSTOMER DATA TECHNICIAN Appointment [facility] Maternal Medicine [place] [address] [place] [phone] Nicole Núñez MD [address] [place] [address] 12/19/2024 10:00 AM CUSTOMER DATA TECHNICIAN Office Visit [facility] Maternal Medicine [place] [address] [place] [phone] Nicole Núñez MD [address] [place] [address] 12/28/2024 10:15 AM CUSTOMER DATA TECHNICIAN Appointment [facility] Maternal Medicine [place] [address] [place] [phone] Diane Lopez MD [address] [place], [place] [address] 12/28/2024 10:45 AM CUSTOMER DATA TECHNICIAN Office Visit [facility] Maternal Medicine [place] [address] [place] [phone] Diane Lopez MD [address] [place], [place] [address] 01/11/2025 10:15 AM CDT Appointment [facility] Maternal Medicine [place] [address] [place] [phone] Diane Lopez MD [address] [place], [place] [address] 01/11/2025 10:45 AM CDT Office Visit [facility] Maternal Medicine [place] [address] [place] [phone] Diane Lopez MD [address] [place] [address] documented as of this encounter Visit Diagnoses Not on filedocumented in this encounter Care Teams Anthropology Professor Relationship Specialty Start Date End Date No Ref-Primary, Physician PCP - General 12/04/21 Flower Amato MD [address] [place] [address] Assigned OBGYN Provider 11/22/24 documented as of this encounter
--- OUTSIDE RECORDS SUMMARY | 2024-12-01 10:34 | XMS_ITS | Encounter Summary ---
Author Organization [facility] Address [address] [place] [address] Care Team Providers Care Welder Helper Name Role Phone No Ref-Primary, Physician Primary Care Provider Flower Amato MD Unavailable [phone] Reason for Referral * Diagnostic Imaging Ultrasound (Routine) - Pending Review Specialty Diagnoses / Procedures Referred By Noa lilly Referred To Contact Radiology. 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 Intrauterine growth restriction affecting antepartum care of mother in first trimester, fetus 2 Procedures MFM Twins US Comprehensive F/U Nicole Núñez MD [address] [place] [address] Phone: tel: fax: Referral ID Status Reason Start Date Expiration Date V isits Requested Visits Authorized [id number] Pending Review 11/22/2024 11/22/2025 1 1 ROLLER OPERATOR Reason for Visit * Reason Comments Ultrasound RL2/UAR/MCA: mono/di twins, TTTS check/ sFGR fetus 2 Encounter Details Date Type Department Care Team (Latest Contact Info) Description 11/22/2024 10:[address] ROLLER OPERATOR Office Visit [facility] M[facility] Medicine [facility] [place] [address] [facility] [address] [place] [address] Nicole Núñez MD [address] [place] [address] Monochorionic diamniotic twin gestation in second [...] on file Legal Sex Female 11:[address] ROLLER OPERATOR Gender Identity Not on file Sexual Orientation Not on file documented as of this encounter Progress Notes * Nicole Núñez MD - 11/22/2024 10:00 AM CST The patient was seen for an ultrasound in the Maternal- Medicine Center today. For a detailed report of the ultrasound examination, please see the ultrasound report which can be found under the imaging tab. If you have questions regarding today's evaluation or if we can be of further service, please contact the Maternal- Medicine Center. Nicole Núñez MD Supervisor Quality Control, FACTORY ASSEMBLER Maternal- Medicine ROLLER OPERATOR documented in this encounter Nursing Notes * Joceline Bejarano RN - 11/22/2024 10:00 AM CST Heather seen in clinic today for RL2/UAR/MCA (TTTS check) at 20w4d gestation for mono/di twins with sFGR (see report/notes). VSS. Pt reports + FM. Pt denies bldg/lof/change in discharge/contractions/headache/vision changes. Dr. Núñez reviewed ultrasound met with pt and discussed POC. Plan to follow up on 11/30 with echoes and MFM ultrasound, weekly TTTS check, growth q 3 weeks. Pt discharged stable and ambulatory. Joceline Bejarano RN ROLLER OPERATOR ROLLER OPERATOR documented in this encounter Plan of Treatment Upcoming Encounters Date Type Department Care Team (Late st Contact Info) Description 12/03/2024 2:[address] ROLLER OPERATOR Appointment [facility] M[facility] Medicine [facility] [place] [address] [facility] [place] [address] Nicole Núñez MD [address] [place] [address] 12/03/2024 2:[address] ROLLER OPERATOR Office Visit [facility] [place] [address] [place] [address] Nicole Núñez MD [address] [place] [address] 12/06/2024 9:[address] ROLLER OPERATOR Appointment [facility] [place] [address] [facility] [address] [place] [phone] Nicole Núñez MD [address] [place] [address] 12/06/2024 10:[address] ROLLER OPERATOR Office Visit [facility] Maternal Medicine [facility] [place] [address] [place] [phone] Nicole Núñez MD [address] [place] [address] 12/13/2024 9:[address] ROLLER OPERATOR Appointment [facility] Maternal Medicine [place] [address] [place] [phone] Nicole Núñez MD [address] [place] [address] 12/13/2024 10:[address] ROLLER OPERATOR Office Visit [facility] Maternal Medicine [place] [address] [place] [phone] Nicole Núñez MD [address] [place] [address] 12/19/2024 9:[address] ROLLER OPERATOR Appointment [facility] Maternal Medicine [place] [address] [place] [phone] Nicole Núñez MD [address] [place] [address] 12/19/2024 10:[address] ROLLER OPERATOR Office Visit [facility] Maternal Medicine Center [place] [address] [place] [phone] Nicole Núñez MD [address] [place] [address] 12/28/2024 10:[address] ROLLER OPERATOR Appointment [facility] Maternal Medicine [place] [address] [facility] [address] [place] [phone] Diane Lopez MD [address] [place] [address] 12/28/2024 10:[address] ROLLER OPERATOR Office Visit [facility] Medicine [facility] [place] [address] [place] [address] Diane Lopez MD [address] [place] [address] 01/11/2025 10:15 AM CDT Appointment [facility] Maternal Medicine [facility] [address] [place] [address] Diane Lopze MD [address] [place] [address] 01/11/2025 10:45 AM CDT Office Visit [facility] Maternal Medicine [facility] [address] [place] [address] Diane Lopez MD [address] [place] [address] Scheduled Orders Name Type Priority Associated Diagnoses Orde r Schedule MFM Twins US Comprehensive F/U Imaging Routine 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 Intrauterine growth restriction affecting antepartum care of mother in first trimester, fetus 2 Expected: 12/05/2024 (Approximate), Expires: 09/22/2025 MFM Twins US Comprehensive F/U Imaging Routine 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 Intrauterine growth restriction affecting antepartum care of mother in first trimester, fetus 2 Expected: 12/19/2024 (Approximate), Expires: 09/22/2025 documented as of this encounter Visit Diagnoses Diagnosis 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
--- OUTSIDE RECORDS SUMMARY | 2024-12-01 10:34 | XMS_ITS | Encounter Summary ---
Author Organization [facility] Address [address] [place] [address] Care Team Providers Care Class A Lineman Name Role Phone No Ref-Primary, Physician Primary Care Provider Reason for Visit * Reason Comments Ultrasound RL2/UAR/MCA: TTTS ch luigi; mono/di twins Encounter Details Date Type Department Care Team (Latest Contact Info) Description 11/08/2024 10:00 AM GROUNDS FOREMAN Office Visit 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 For a detailed report of the ultrasound examination, please see the ultrasound report which can be found under the imaging tab. If you have questions regarding today's evaluation or if we can be of further service, please contact the Maternal- Medicine Center. Flor Dickson M.D. Maternal -Medicine Specialist NDS FOREMAN documented in this encounter Nursing Notes * Joceline Bejarano, RN - 11/08/2024 10:00 AM CST Heather seen in clinic today for TTTS check at 18w4d gestation due to mono/di twin gestation (see report/notes). Pt denies bldg/lof/change in discharge/contractions. Dr. Dickson reviewed US. Plan to return on 11/14 for L2. Pt discharged stable and ambulatory. Joceline Bejarano RN NDS FOREMAN documented in this encounter Plan of Treatment Upcoming Encounters Date Type Department Care Team (Late st Contact Info) Description 12/03/2024 2:15 PM GROUNDS FOREMAN Appointment [facility] Maternal Medicine [address] [phone] Nicole Núñez MD [address] [place] [address] 12/03/2024 2:45 PM GROUNDS FOREMAN Office Visit [facility] Maternal Medicine [address] [address] Nicole Núñez MD [address] [place] [address] 12/06/2024 9:30 AM GROUNDS FOREMAN [facility]ointment [facility] Maternal Medicine [facility] [address] [facility] [address] [place] [address] Nicole Núñez MD [address] [place] [address] 12/06/2024 10:00 AM GROUNDS FOREMAN Office Visit [facility] Maternal Medicine Center [place] [address] [place] [phone] Nicole Núñez MD [address] [place] [address] 12/13/2024 9:30 AM GROUNDS FOREMAN Appointment [facility] Maternal Medicine [place] [address] [place] [phone] Nicole Núñez MD [address] [place] [address] 12/13/2024 10:00 AM GROUNDS FOREMAN Office Visit [facility] Maternal Medicine Center [place] [address] [place] [phone] Nicole Núñez MD [address] [place] [address] 12/19/2024 9:30 AM GROUNDS FOREMAN Appointment [facility] Maternal Medicine [place] [address] [place] [phone] Nicole Núñez MD [address] [place] [address] 12/19/2024 10:00 AM GROUNDS FOREMAN Office Visit [facility] Maternal Medicine Center [place] [address] [place] [phone] Nicole Núñez MD [address] [place] [address] 12/28/2024 10:15 AM GROUNDS FOREMAN Appointment [facility] Maternal Medicine [place] [address] [place] [phone] Diane Lopez MD [address] [place] [address] 12/28/2024 10:45 AM GROUNDS FOREMAN Office Visit [facility] Maternal Medicine [place] [address] [place] [phone] Diane Lopez MD [address] [place] [address] 01/11/2025 10:[address] [facility] Maternal Medicine [place] [address] [place] [phone] Diane Lopez MD [address] [place] [address] 01/11/2025 10:45 AM CDT Office Visit 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
--- OUTSIDE RECORDS SUMMARY | 2024-12-01 10:34 | XMS_ITS | Encounter Summary ---
Author Organization [facility] Address [address] [place] [address] Care Team Providers Care Photoresist Contact Printer Name Role Phone No Ref-Primary, Physician Primary Care Provider Flower Amato MD Unavailable [phone] Reason for Referral * Diagnostic Imaging Ultrasound (Routine) - Pending Review Specialty Diagnoses / Procedures Referred By Contac t Referred To Contact Radiology. Diagnoses Monochorionic diamniotic twin gestation Procedures MFM Twins US Comprehensive F/U Diane Lopez MD [address] [facility] [address] [address] Phone: tel: fax: Referral ID Status Reason Start Date Expiration Date V isits Requested Visits Authorized [id number] Pending Review 10/19/2024 10/19/2025 1 1 OR GRINDER MILL OPERATOR Reason for Visit * Diagnostic Imaging Ultrasound (Routine) - Pending Review Specialty Diagnoses / Procedures Referred By Noa lilly Referred To Contact Radiology. Diagnoses Monochorionic diamniotic twin gestation Procedures MFM Twins US Comprehensive F/U Diane Lopez MD [address] [place] [address] Phone: tel: fax: Referral ID Status Reason Start Date Expiration Date V isits Requested Visits Authorized [id number] Pending Review 10/19/2024 10/19/2025 1 1 Encounter Details Date Type Department Care Team (Latest Contact Info) Description 11/30/2024 1:31 PM LIQUOR GRINDER MILL OPERATOR - 11/30/2024 11:59 PM LIQUOR GRINDER MILL OPERATOR Hospital Encounter [facility] Maternal Medicine Center [place] [address] [place] [phone] Nicole Núñez MD [address] [place], [place] [phone] 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 [...] on file Legal Sex Female 11:44 PM LIQUOR GRINDER MILL OPERATOR Gender Identity Not on file Sexual [...] st Contact Info) Description 12/03/2024 2:15 PM LIQUOR GRINDER MILL OPERATOR Appointment [facility] M[facility] Medicine [facility] [place] [address] [place] [phone] Nicole Núñez MD [address] [place] [address] 12/03/2024 2:45 PM LIQUOR GRINDER MILL OPERATOR Office Visit [facility] Maternal Medicine [facility] [address] [place] [address] Nicole Núñez MD [address] [place] [address] 12/06/2024 9:30 AM LIQUOR GRINDER MILL OPERATOR Appointment [facility] Maternal Medicine [facility] [address] [place] [phone] Nicole Núñez MD [address] [place] [address] 12/06/2024 10:00 AM LIQUOR GRINDER MILL OPERATOR Office Visit [facility] Maternal Medicine [facility] [address] [place] [phone] Nicole Núñez MD [address] [place] [address] 12/13/2024 9:30 AM LIQUOR GRINDER MILL OPERATOR Appointment [facility] Maternal Medicine [facility] [address] [place] [phone] Nicole Núñez MD [address] [place] [address] 12/13/2024 10:00 AM LIQUOR GRINDER MILL OPERATOR Office Visit [facility] Maternal Medicine Center [place] [address] [place] [phone] Nicole Núñez MD [address] [place] [address] 12/19/2024 9:30 AM LIQUOR GRINDER MILL OPERATOR Appointment [facility] Maternal Medicine [place] [address] [place] [phone] Nicoel Núñez MD [address] [facility] [place] [address] 12/19/2024 10:00 AM LIQUOR GRINDER MILL OPERATOR Office Visit [facility] Maternal Medicine [place] [address] [place] [phone] Nicole Núñez MD [address] [facility] [place] [address] 12/28/2024 10:15 AM LIQUOR GRINDER MILL OPERATOR Appointment [facility] Maternal Medicine [place] [address] [place] [phone] Diane Lopez MD [address] [address] 12/28/2024 10:45 AM LIQUOR GRINDER MILL OPERATOR Office Visit [facility] Maternal Medicine Center [place] [address] [place] [phone] Diane Lopez MD [address] [address] 01/11/2025 10:15 AM CDT Appointment [facility] Maternal Medicine [place] [address] [facility] [address] [place] [phone] Diane Lopez MD [address] [place], [place] [phone] 01/11/2025 10:45 AM CDT Office Visit [facility] Maternal Medicine [facility] [address] [facility] [address] [place] [phone] Diane Lopez MD [address] [place], [place] [phone] documented as of this encounter Procedures Procedure Name Priority Date/Time Associated Diagnosis Comments MFM TWINS US COMPREHENSIVE F/U Routine 11/30/2024 3:11 PM LIQUOR GRINDER MILL OPERATOR 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 Narrative 11/30/2024 8:09 PM [facility] Surveillance US ----- Pat. Name: HEATHER CHÁVEZ Study Date: 11/30/2024 2:04pm Pat. NO: [id number] Referring MD: PAMELA CUELLAR Site: [employer] Recruiter: Kenyetta Lyons RDMS : 1995 Age: 29 [...] options at this time including referral to [facility] for consideration of laser procedure to protect/optimize [...] discussed likely plan for delivery at the [facility]. Return to primary provider for continued care. If you have questions regarding today's evaluation or if we can be of further service, please contact the Maternal- Medicine Center. anomalies may be present but not detected I spent a total of 15 minutes (excluding the ultrasound interpretation) on the date of this encounter including preparing to see the patient (reviewing medical records/tests), in direct dwhp-uh-dzzh contact with the patient counseling and discussing the plan of care, documenting the visit in the electronic medical record, and communicating with other health healthcare specialist and/or care coordination. Procedure Note Nicole Núñez MD - 11/30/2024 Surveillance ----- Pat. Name: HEATHER CHÁVEZ Study Date: 11/30/2024 2:04pm Pat. NO: [id number] Referring MD: PAMELA CUELLAR Site: [employer] Recruiter: Kenyetta Lyons RDMS : 1995 Age: 29 [...] options at this time including referral to [facility] for consideration oflaser procedure to [...] We also discussed likely plan for delivery [facility]. Return to primary provider for continued care. If you have questions regarding today's evaluation or if we can be offurther service, please contact the Maternal- Medicine Center. anomalies may be present but not detected I spent a total of 15 minutes (excluding the ultrasound interpretation) onthe date of this encounter including preparing to see the patient(reviewing medical records/tests), in direct rhlu-gm-ozxq contact with the patient counseling and discussingthe plan of care, documenting the visit in the electronic medical record,and communicating with other health healthcare specialist and/or care coordination. IMPRESSION ----- Monochorionic diamniotic [...] were abnormal; intermittent depressed A waveand reversal. 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
--- OUTSIDE RECORDS SUMMARY | 2024-12-01 10:34 | XMS_ITS | Encounter Summary ---
Author Organization [place] Address [address] [place] [address] Care Team Providers Care Machine Brusher Name Role Phone No Ref-Primary, Physician Primary Care Provider Reason for Referral * Diagnostic Imaging Ultrasound (Routine) - Pending Review Specialty Diagnoses / Procedures Referred By Noa lilly Referred To Contact Radiology. Diagnoses Monochorionic diamniotic twin gestation Procedures MFM Twins US Comprehensive F/U Diane Lopez MD [address] [address] Phone: tel: fax: Referral ID Status Reason Start Date Expiration Date V isits Requested Visits Authorized [id number] Pending Review 10/19/2024 10/19/2025 1 1 REMENT ACTUARY Reason for Visit * Diagnostic Imaging Ultrasound (Routine) - Pending Review Specialty Diagnoses / Procedures Referred By Noa lilly Referred To Contact Radiology. Diagnoses Monochorionic diamniotic twin gestation Procedures MFM Twins US Alivia F/U Diane Lopez MD [address] [place] [address] Phone: tel: fax: Referral ID Status Reason Start Date Expiration Date V isits Requested Visits Authorized [id number] Pending Review 10/19/2024 10/19/2025 1 1 Encounter Details Date Type Department Care Team (Latest Contact Info) Description 11/08/2024 9:24 AM RETIREMENT ACTUARY - 11/08/2024 11:59 PM RETIREMENT ACTUARY Hospital Encounter [facility] [place] [address] [facility] [address] [place] [address] Flor Dickson MD [address] [place], [place] [address] 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 [...] on file Legal Sex Female 11:44 PM RETIREMENT ACTUARY Gender Identity Not on file Sexual Orientation [...] st Contact Info) Description 12/03/2024 2:15 PM RETIREMENT ACTUARY Appointment [facility] [place] [address] [place] [phone] Nicole Núñez MD [address] [place] [address] 12/03/2024 2:45 PM RETIREMENT ACTUARY Office Visit [facility] [address] [place] [address] Nicole Núñez MD [address] [place] [address] 12/06/2024 9:30 AM RETIREMENT ACTUARY Appointment [facility] [address] [place] [phone] Nicole Núñez MD [address] [place] [address] 12/06/2024 10:00 AM RETIREMENT ACTUARY Office Visit [facility] [address] [place] [phone] Nicole Núñez MD [address] [place] [address] 12/13/2024 9:30 AM RETIREMENT ACTUARY Appointment [facility] [address] [place] [phone] Nicole Núñez MD [address] [place] [address] 12/13/2024 10:00 AM RETIREMENT ACTUARY Office Visit [facility] [place] [address] [place] [phone] Nicole Núñez MD [address] [facility] [place] [address] 12/19/2024 9:30 AM RETIREMENT ACTUARY Appointment [facility] [place] [address] [place] [phone] Nicole Núñez MD [address] [facility] [place] [address] 12/19/2024 10:00 AM RETIREMENT ACTUARY Office Visit [facility] [place] [address] [place] [phone] Nicole Núñez MD [address] [facility] [place] [address] 12/28/2024 10:15 AM RETIREMENT ACTUARY Appointment [facility] [place] [address] [place] [phone] Diane Lopez MD [address] [address] 12/28/2024 10:45 AM RETIREMENT ACTUARY Office Visit [facility] [place] [address] [place] [phone] Diane Lopez MD [address] [address] 01/11/2025 10:15 AM CDT Appointment [facility] [place] [address] [place] [phone] Diane Lopez MD [address] [place], [place] [address] 01/11/2025 10:45 AM CDT Office Visit [facility] [place] [address] [place] [address] Diane oLpez MD [address] [place], [place] [address] documented as of this encounter Procedures Procedure Name Priority Date/Time Associated Diagnosis Comments MFM TWINS US COMPREHENSIVE F/U Routine 11/08/2024 10:15 AM RETIREMENT ACTUARY 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 Fetus 1 1. A [...] syndrome or twin anemia polycythemia syndrome. Narrative 11/08/2024 11:28 AM [facility] Surveillance US ----- Pat. Name: HEATHER CHÁVEZ Study Date: 11/08/2024 9:37am Pat. NO: [id number] Referring MD: PAMELA CUELALR Site: [employer] Supervisor: Chantell Jarquin RDMS : 1995 Age: 29 ----- INDICATION ----- Monochorionic, Diamniotic Twin gestation with selective growth restriction. TTTS Check. Monochorionic, Diamniotic Twin gestation with selective growth restriction. TTTS Check METHOD ----- Transabdominal ultrasound examination ----- Twin . Number of fetuses: 2. Monochorionic-diamniotic DATING ----- Date Details Gest. age TOMMIE LMP 07/01/2024 18 w + 4 d 04/07/2025 Previous U/S 08/27/2024 GA, GA 7 w + 6 d 18 w + 2 d 04/09/2025 Assigned dating based on the LMP, selected on 10/19/2024 18 w + 4 d 04/07/2025 Fetus 1: GENERAL EVALUATION ----- Cardiac activity present. FHR 154 bpm. movements: visualized. Presentation: cephalic, maternal left, presenting Placenta: Placental site: anterior, thin dividing membrane Umbilical cord: previously studied Amniotic fluid: Amount of AF: normal. MVP 5.9 cm Fetus 2: GENERAL EVALUATION ----- Cardiac activity present. FHR 153 bpm. movements: visualized. Presentation: breech, maternal right, superior Placenta: Placental site: anterior, thin dividing membrane Umbilical cord: previously studied Amniotic fluid: Amount of AF: normal. MVP 3.9 cm Fetus 1: DOPPLER ----- Umbilical Artery: normal PI 1.36 HR 142 bpm Mid Cerebral Artery: normal PS 26.79 cm/s PS 1.12 MoM Ductus Venosus: normal A-wave 30.88 cm/s a/S 0.59 59% JSUM Fetus 2: DOPPLER ----- Umbilical Artery: abnormal, Intermittent Absent End Diastolic Flow PI 1.60 HR 153 bpm Mid Cerebral Artery: normal PS 32.15 cm/s PS 1.35 MoM Ductus Venosus: normal A-wave -11.01 cm/s a/S 0.32 <1% JSUM Fetus 1: TTTS ASSESSMENT ----- Cardiac activity: present Placental location: anterior, thin dividing membrane bladder: normal hydrops: No MVP: 5.9 cm MCA PSV: 26.79 cm/s MCA MoM: 1.12 UA PI: 1.36, ... Ductus Venosus: normal Fetus 2: TTTS ASSESSMENT ----- Cardiac activity: present Placental location: anterior, thin dividing membrane bladder: normal hydrops: No MVP: 3.9 cm MCA PSV: 32.15 cm/s MCA MoM: 1.35 UA PI: 1.6 Ductus Venosus: normal RECOMMENDATION ----- Thank-you for referring your patient to assess for signs of TTTS/TAPS due to monochorionic twin . We discussed the findings on today's ultrasound with the patient. Findings stable compared to the first two ultrasounds. She is looking forward to the next growth assessment. She is scheduled for comprehensive anatomy US next week. Pediatric cardiology echo scheduled on 11/30. Return to primary provider for continued care. If you have questions regarding today's evaluation or if we can be of further service, please contact the Maternal[facility] Medicine Center. anomalies may be present but not detected Procedure Note Flor Dickson MD - 11/08/2024 Surveillance US ----- Pat. Name: HEATHER CHÁVEZ Study Date: 11/08/2024 9:37am Pat. NO: [id number] Referring MD: PAMELA CUELLAR Site: [employer] Supervisor: Chantell Jarquin RDMS : 1995 Age: 29 ----- INDICATION ----- Monochorionic, Diamniotic Twin gestation with selective growthrestriction. TTTS Check. Monochorionic, Diamniotic Twin gestation withselective growth restriction. TTTS Check METHOD ----- Transabdominal ultrasound examination ----- Twin . Number of fetuses: 2. Monochorionic-diamniotic DATING ----- DateDetailsGest. age TOMMIE LMP w + 4 d 04/07/2025 Previous U/S 08/27/2024 GA, GA7 w + 6 d18 w + 2 d 04/09/2025 Assigned dating based on the LMP, selected on w + 4 d 04/07/2025 Fetus 1: GENERAL EVALUATION ----- Cardiac activity present. FHR 154 bpm. movements: visualized.Presentation: cephalic, maternal left, presenting Placenta: Placental site: anterior, thin dividing membrane Umbilical cord: previously studied Amniotic fluid: Amount of AF: normal. MVP 5.9 cm Fetus 2: GENERAL EVALUATION ----- Cardiac activity present. FHR 153 bpm. movements: visualized.Presentation: breech, maternal right, superior Placenta: Placental site: anterior, thin dividing membrane Umbilical cord: previously studied Amniotic fluid: Amount of AF: normal. MVP 3.9 cm Fetus 1: DOPPLER ----- Umbilical Artery: normal PI 1.36 HR 142bpm Mid Cerebral Artery: normal PS 26.79cm/s PS 1.12MoM Ductus Venosus: normal A-wave 30.88cm/s a/S 0.5959%JSUM Fetus 2: DOPPLER ----- Umbilical Artery: abnormal, Intermittent Absent End Diastolic Flow PI 1.60 HR 153bpm Mid Cerebral Artery: normal PS 32.15cm/s PS 1.35MoM Ductus Venosus: normal A-wave -11.01cm/s a/S 0.32<1%JSUM Fetus 1: TTTS ASSESSMENT ----- Cardiac activity: present Placental location: anterior, thin dividing membrane bladder: normal hydrops: No MVP: 5.9 cm MCA PSV: 26.79 cm/s MCA MoM: 1.12 UA PI: 1.36, ... Ductus Venosus: normal Fetus 2: TTTS ASSESSMENT ----- Cardiac activity: present Placental location: anterior, thin dividing membrane bladder: normal hydrops: No MVP: 3.9 cm MCA PSV: 32.15 cm/s MCA MoM: 1.35 UA PI: 1.6 Ductus Venosus: normal RECOMMENDATION ----- Thank-you for referring your patient to assess for signs of TTTS/TAPS dueto monochorionic twin . We discussed the findings on today's ultrasound with the patient. Findingsstable compared to the first two ultrasounds. She is looking forward tothe next growth assessment. She is scheduled for comprehensive anatomy US next week. Pediatriccardiology echo scheduled on 11/30. Return to primary provider for continued care. If you have questions regarding today's evaluation or if we can be offurther service, please contact the Maternal- Medicine Center. anomalies may be present but not detected IMPRESSION ----- Monochorionic diamniotic twin gestation at 18w 4d gestational age. Fetus 1 1. A [...] anemia polycythemia syndrome. 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
--- OUTSIDE RECORDS SUMMARY | 2024-12-01 10:34 | XMS_ITS | Encounter Summary ---
Author Organization [place] Address [address] [place] [address] Care Team Providers Care Retail Store Assistant Name Role Phone No Ref-Primary, Physician Primary Care Provider Flower Amato MD Unavailable [phone] Encounter Details Date Type Department Care [...] on file Legal Sex Female 11:44 PM VOCATIONAL TRAINING DIRECTOR Gender Identity Not on file Sexual Orientation Not on file COVID-19 Exposure Response Date Recorded In the last month, have you been in contact with someone who was confirmed or suspected to have Coronavirus / COVID-19? No / Unsure 12/08/2021 5:46 PM VOCATIONAL TRAINING DIRECTOR documented as of this encounter Plan of Treatment Upcoming Encounters Date Type Department Care Team (Late st Contact Info) Description 12/03/2024 2:15 PM VOCATIONAL TRAINING DIRECTOR Appointment [facility] [place] [address] [facility] [place] [address] Nicole Núñez MD [address] [place], [place] [phone] 12/03/2024 2:45 PM VOCATIONAL TRAINING DIRECTOR Office Visit [facility] [place] [address] [place] [address] Nicole Núñez MD [address] [place] [address] 12/06/2024 9:30 AM VOCATIONAL TRAINING DIRECTOR Appointment [facility] [place] [address] [place] [phone] Nicole Núñez MD [address] [place] [address] 12/06/2024 10:00 AM VOCATIONAL TRAINING DIRECTOR Office Visit [facility] [place] [address] [place] [phone] Nicole Núñez MD [address] [place] [address] 12/13/2024 9:30 AM VOCATIONAL TRAINING DIRECTOR Appointment [facility] [place] [address] [place] [phone] Nicole Núñez MD [address] [place] [address] 12/13/2024 10:00 AM VOCATIONAL TRAINING DIRECTOR Office Visit [facility] [place] [address] [place] [phone] Nicole Núñez MD [address] [place] [address] 12/19/2024 9:30 AM VOCATIONAL TRAINING DIRECTOR Appointment [facility] [place] [address] [place] [phone] Nicole Núñez MD [address] [place] [address] 12/19/2024 10:00 AM VOCATIONAL TRAINING DIRECTOR Office Visit [facility] M[facility] Medicine [place] [address] [place] [phone] Nicole Núñez MD [address] [place] [address] 12/28/2024 10:15 AM VOCATIONAL TRAINING DIRECTOR Appointment [facility] M[facility] Medicine [place] [address] [place] [phone] Diane Lopez MD [address] [place] [address] 12/28/2024 10:45 AM VOCATIONAL TRAINING DIRECTOR Office Visit [facility] Maternal Medicine [place] [address] [place] [phone] Diane Lopez MD [address] [place] [address] 01/11/2025 10:15 AM CDT Appointment [facility] [place] [address] [place] [phone] Diane Lopez MD [address] [place] [address] 01/11/2025 10:45 AM CDT Office Visit [facility] [place] [address] [place] [phone] Diane Lopez MD [address] [place] [address] documented as of this encounter Visit Diagnoses Not on filedocumented in this encounter Care Teams Retail Store Assistant Relationship Specialty Start Date End Date No Ref-Primary, Physician PCP - General 12/04/21 Flower Amato MD [address] [address] Assigned OBGYN Provider 11/22/24 documented as of this encounter
--- OUTSIDE RECORDS SUMMARY | 2024-12-01 10:34 | XMS_ITS | Continuity of Care Document ---
Author Organization [place] [facility] Address [address] [place] [address] Assessment Encounter Date Assessment Date Assessment LastModified [...] should not hesitate to contact our office. ecram Not available 10/30/2024 18:46:54 Plan of Treatment Reminders Order Date Submit [...] Organization Details Recorded Time Low back pain 038820920 Active 2023 Moise Mensah DC [address] [facility], [place], [address], [facility] 4 18:46:52 Thoracic segmental dysfunction 827361539 Active 2023 Moise Mensah DC [address] [facility], [place], [address], [facility] 4 18:46:52 Lumbar segmental dysfunction 707857450 Active 2023 Moise Mensah DC [address] [facility], [place], [address], [facility] 4 18:46:52 Somatic dysfunction of sacral spine 493384652 Active 2023 Moise Mensah DC [address] [facility], [place], [address], [facility] 4 18:46:52 Neck pain 96608916 Active 2023 Moise Mensah DC [address] [facility], [facility] [place], [address], [facility] 4 18:46:54 Cervical segmental dysfunction 572641054 Active 2023 Moise Mensah DC [address] [facility], [facility], [address], [facility] 4 18:46:54 Problem Notes None recorded. Procedures Surgical History Date Name Laterality Status Provider Name and Address Organization Details Recorded Time 5 82993: Spinal manipulation , 3 to 4 regions completed Gerry Le DC [address] [facility], [place], [address], [facility] 11/07/2024 12:03:29 4 [address]: Spinal manipulation , 3 to 4 regions completed Moise Mensah DC [address] [facility], [place], [address], [facility] 10/30/2024 18:49:30 Imaging Results None recorded. [...] SNOMED-CT Code Diagnosis ICD10 Code Diagnosis Note [id number] Moise Mensah DC [facility] [address] [facility] [place] [address] 10/30/2024 16:03:14 10/30/2024 19:26:07 Lumbar segmental dysfunction 931803333 M99.03 Low back pain 005229846 M54.50 Somatic dy sfunction of sacral spine 336454021 M99.04 Thoracic s egmental dysfunction 115201475 M99.02 Cervical s egmental dysfunction 909853777 M99.01 Neck pain 54472201 M54.2 Health Concerns Section Related Observation LastModified by Organization Detai ls LastModified Time None Recorded Concern Status LastModified by Organization Details LastModified Time None Recorded Payers Encounter Date Sequence Insurance Name Policy Number Policy Samuel Covered Member ID Samuel Member ID Guarantor Name 10/30/2024 1 *SELF PAY* Em matthew Chávez Notes Date Note Type Note Provider [...] carrying; twisting; bending/squatting Alleviating Factors:lying down; rest; director of primary care 17 weeks with twins and one is not getting as much blood supply so plan to do 22 to 28 weeks going for later. Neck and upper back pain and tightness with stress and some lower back pelvis pain. Moise Mensah DC [address] [facility], [place], [address], [facility] 10/30/2024 18:50:02 OBGyn Episode No OBEpisode recorded.
--- OUTSIDE RECORDS SUMMARY | 2024-12-01 10:34 | XMS_ITS | Encounter Summary ---
Author Organization [place] Address [address] [place] [address] Care Team Providers Care Research And Development Chemist Name Role Phone No Ref-Primary, Physician Primary Care Provider Flower Amato MD Unavailable [phone] Encounter Details Date Type Department Care Team (Late st Contact Info) Description 11/30/2024 Office Visit [facility] [address] [facility] [address] [place] [phone] Luc Dominguez MD [address] [place] [address] cardiac anomaly complicating , antepartum, fetus 1 (Primary Dx); cardiac anomaly complicating , antepartum, fetus 2 Social History Tobacco Use Types [...] on file Legal Sex Female 11:44 PM RELOCATION COMMISSIONER Gender Identity Not on file Sexual Orientation Not on file documented as of this encounter Progress Notes * Luc Dominguez MD - 11/30/2024 1:03 PM CST [facility] Consult Note Patient: Heather Chávez Date of : 1995 Age: [age] year old Date of Visit: 11/30/2024 PCP: No Ref-Primary, Physician Dear No ref. provider found: I had the pleasure of seeing Heather Chávez at the [facility] on 11/30/2024 in cardiology consultation for echocardiogram results. She presented today accompanied by her sister in law. As you know, she is a 29 year old at 21w5d who presented for echocardiogram today because of [place] twins. I performed and interpreted the echocardiogram today, which demonstrated: Fetus 1 Normal cardiac anatomy. Normal intracardiac connections. Normal right and left ventricular size and function. Normal left ventricular Tei index at 0.49. Normal right ventricular Tei indexat 0.49. No hydrops. Fetus 2 Normal cardiac anatomy. Normal intracardiac connections. Normal right and left ventricular size and function. Normal left ventricular Tei index at 0.24. Normal right ventricular Tei indexat 0.36. No hydrops. There is flow reversal in the ductus venosus during atrial systole. There is absent end- diastolic flow in the umbilical artery. I reviewed today's findings with Heather Chávez. There is normal cardiac anatomy in both twins withnormal Tei indices. There is abnormal peripheral flow signals in Fetus 2, with near cessation of flow in the ductus venosus with atrial systole and absence of diastolic flow in the umbilical artery. She is aware that the study was within normal limits with no major cardiac abnormalities. She is aware of the general limitations of echocardiography. No additional echocardiograms are recommended. No cardiac follow-up is required. Thank you for allowing me to participate in Heather's care. Please do not hesitate to contact me with questions or concerns. This visit was separate from the performance and interpretation of the ultrasound. The majority of the time (>50%) was spent in counseling and coordination of care. I spent approximately 45 minutes in cziv-kq-lfkp time reviewing the above considerations. Kade Dominguez M.D. Pediatric Cardiology [address] Academic Office Building 4th floor, [facility] [address] CATION COMMISSIONER documented in this encounter Plan of Treatment Upcoming Encounters Date Type Department Care Team (Late st Contact Info) Description 12/03/2024 2:15 PM RELOCATION COMMISSIONER Appointment [facility] Maternal Medicine [facility] [address] [place] [phone] Nicole Núñez MD [address] [place] [address] 12/03/2024 2:45 PM RELOCATION COMMISSIONER Office Visit [facility] Maternal [facility] [address] [place] [address] Nicole Núñez MD [address] [place] [address] 12/06/2024 9:30 AM RELOCATION COMMISSIONER Appointment [facility] Maternal Medicine [facility] [address] [facility] [address] [place] [phone] Nicole Núñez MD [address] [place] [address] 12/06/2024 10:00 AM RELOCATION COMMISSIONER Office Visit [facility] Maternal Medicine [facility] [address] [place] [phone] Nicole Núñez MD [address] [place] [address] 12/13/2024 9:30 AM RELOCATION COMMISSIONER Appointment [facility] Maternal Medicine [facility] [address] [place] [phone] Nicole Núñez MD [address] [place] [address] 12/13/2024 10:00 AM RELOCATION COMMISSIONER Office Visit [facility] Maternal Medicine [place] [address] [facility] [address] [place] [phone] Nicole Núñez MD [address] [place] [address] 12/19/2024 9:30 AM RELOCATION COMMISSIONER Appointment [facility] [place] [address] [facility] [address] [place] [phone] Nicole Núñez MD [address] [facility] [place] [address] 12/19/2024 10:00 AM RELOCATION COMMISSIONER Office Visit [facility] Maternal Medicine [place] [address] [facility] [address] [place] [phone] Nicole Núñez MD [address] [place] [address] 12/28/2024 10:15 AM RELOCATION COMMISSIONER Appointment [facility] Maternal Medicine [place] [address] [place] [phone] Diane Lopez MD [address] [address] 12/28/2024 10:45 AM RELOCATION COMMISSIONER Office Visit [facility] Maternal Medicine [place] [address] [place] [phone] Diane Lopez MD [address] [address] 01/11/2025 10:15 AM CDT Appointment [facility] [place] [address] [place] [phone] Diane Lopez MD [address] [place], [place] [phone] 01/11/2025 10:45 AM CDT Office Visit [facility] Maternal Medicine [facility] [address] [place] [phone] Diane Lopez MD [address] [place], [place] [phone] documented as of this encounter Visit Diagnoses Diagnosis cardiac anomaly complicating , antepartum, fetus 1- Primary cardiac anomaly complicating , antepartum, fetus 2 documented in this encounter Care Teams Research And Development Chemist Relationship Specialty Start Date End Date No Ref-Primary, Physician PCP - General 12/04/21 Flower Amato MD [address] [place] [address] Assigned OBGYN Provider 11/22/24 documented as of this encounter
--- OUTSIDE RECORDS SUMMARY | 2024-12-01 10:34 | XMS_ITS | Encounter Summary ---
Author Organization [place] Address [address] [place] [address] Care Team Providers Care Captain/Airline Pilot Name Role Phone No Ref-Primary, Physician Primary Care Provider Flower Amato MD Unavailable [phone] Reason for Referral * Diagnostic Imaging Ultrasound (Routine) - Pending Review Specialty Diagnoses / Procedures Referred By Noa lilly Referred To Contact Radiology. 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 Procedures MFM Twins US Comprehensive F/U Flower Amato MD [address] [place] [address] Phone: tel: fax: Referral ID Status Reason Start Date Expiration Date V isits Requested Visits Authorized [id number] Pending Review 11/14/2024 11/14/2025 1 1 Encounter Details Date Type Department Care Team (Latest Contact Info) Description 11/22/2024 9:28 AM PARADICHLOROBENZENE TENDER - 11/22/2024 11:59 PM PARADICHLOROBENZENE TENDER Hospital Encounter [facility] Maternal Medicine [facility] [place] [address] [facility] [address] [place] [phone] Nicole Núñez MD [address] [place], [place] [phone] 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 [...] on file Legal Sex Female 11:44 PM PARADICHLOROBENZENE TENDER Gender Identity Not on file Sexual [...] st Contact Info) Description 12/03/2024 2:15 PM PARADICHLOROBENZENE TENDER Appointment [facility] Maternal Medicine [facility] [address] [place] [phone] Nicole Núñez MD [address] [place] [address] 12/03/2024 2:45 PM PARADICHLOROBENZENE TENDER Office Visit [facility] Maternal Medicine [facility] [address] [place] [address] Nicole Núñez MD [address] [place] [address] 12/06/2024 9:30 AM PARADICHLOROBENZENE TENDER Appointment [facility] Maternal Medicine [facility] [address] [place] [phone] Nicole Núñez MD [address] [place] [address] 12/06/2024 10:00 AM PARADICHLOROBENZENE TENDER Office Visit [facility] Maternal Medicine [facility] [address] [place] [phone] Nicole Núñez MD [address] [place] [phone] 12/13/2024 9:30 AM PARADICHLOROBENZENE TENDER Appointment [facility] Maternal Medicine [facility] [address] [place] [phone] Nicole Núñez MD [address] [place] [address] 12/13/2024 10:00 AM PARADICHLOROBENZENE TENDER Office Visit [facility] M[facility] Medicine [facility] [place] [address] [place] [phone] Nicole Núñez MD [address] [place] [address] 12/19/2024 9:30 AM PARADICHLOROBENZENE TENDER Appointment [facility] Maternal Medicine [place] [address] [place] [phone] Nicole Núñez MD [address] [facility] [place] [address] 12/19/2024 10:00 AM PARADICHLOROBENZENE TENDER Office Visit [facility] Maternal Medicine [place] [address] [place] [phone] Nicole Núñez MD [address] [facility] [place] [address] 12/28/2024 10:15 AM PARADICHLOROBENZENE TENDER Appointment [facility] Maternal Medicine [place] [address] [place] [phone] Daine Lopez MD [address] [address] 12/28/2024 10:45 AM PARADICHLOROBENZENE TENDER Office Visit [facility] Maternal Medicine [place] [address] [place] [phone] Diane Lopez MD [address] [address] 01/11/2025 10:15 AM CDT Appointment [facility] [place] [address] [place] [phone] Diane Lopez MD [address] [place], [place] [address] 01/11/2025 10:45 AM CDT Office Visit [facility] Maternal Medicine [facility] [address] [place] [phone] Diane Lopez MD [address] [place], [place] [address] documented as of this encounter Procedures Procedure Name Priority Date/Time Associated Diagnosis Comments MFM TWINS US COMPREHENSIVE F/U Routine 11/22/2024 11:09 AM PARADICHLOROBENZENE TENDER 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 Narrative 11/23/2024 6:03 PM [facility] Surveillance US ----- Pat. Name: HEATHER CHÁVEZ Study Date: 11/22/2024 9:46am Pat. NO: [id number] Referring MD: PAMELA CUELLAR Site: Client Support Consultant: José Miguel Hussein RDMS : 1995 Age: [...] outlined by Dr. Amato on 11/14/24, and Heather and her desire to proceed as previously [...] the patient (reviewing medical records/tests), in direct dxul-tp-njhw contact with the patient counseling and discussing the plan of care, documenting the visit in the electronic medical record, and communicating with other health care taker and/or care coordination. Procedure Note Nicole Núñez MD - 11/23/2024 Surveillance US ----- Pat. Name: HEATHER CHÁVEZ Study Date: 11/22/2024 9:46am Pat. NO: [id number] Referring MD: PAMELA CUELLAR Site: Client Support Consultant: José Miguel Hussein RDMS : 1995 Age: [...] today's evaluation or if we can [facility], please contact the [facility] Center. anomalies may be present but not detected I spent a total of 15 minutes (excluding the ultrasound interpretation) onthe date of this encounter including preparing to see the patient(reviewing medical records/tests), in direct acam-qw-htby contact with the patient counseling and discussingthe plan of care, documenting the visit in the electronic medical record,and communicating with other health care taker and/or care coordination. IMPRESSION ----- Monochorionic diamniotic [...] anemia polycythemia syndrome. us Flower Amato MD [facility] ORDERABLES Edited Re sult - Final documented in this encounter Visit Diagnoses Diagnosis 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 documented in this encounter Care Teams Captain/Airline Pilot Relationship Specialty Start Date End Date No Ref-Primary, Physician PCP - General 12/04/21 Flower Amato MD [address] [place] [address] Assigned OBGYN Provider 11/22/24 documented as of this encounter
--- OUTSIDE RECORDS SUMMARY | 2024-12-01 10:34 | XMS_ITS | Encounter Summary ---
Author Organization [place] Address [address] [place] [address] Care Team Providers Care Senior Marketing Specialist Name Role Phone No Ref-Primary, Physician Primary Care Provider Encounter Details Date Type Department Care Team (Latest Contact Info) Description 11/14/2024 Travel Social History Tobacco Use Types Packs/Day [...] on file Legal Sex Female 11:44 PM EARTHMOVING LABOURER Gender Identity Not on file Sexual Orientation Not on file documented as of this encounter Plan of Treatment Upcoming Encounters Date Type Department Care Team (Late st Contact Info) Description 12/03/2024 2:15 PM EARTHMOVING LABOURER Appointment [facility] M[facility] Medicine [facility] [place] [address] [place], [place] [address] [place] [phone] Nicole Núñez MD [address] [place] [phone] 12/03/2024 2:45 PM EARTHMOVING LABOURER Office Visit [facility] [place] [address] [place] [address] [phone] Nicole Núñez MD [address] [place] [address] 12/06/2024 9:30 AM EARTHMOVING LABOURER Appointment [facility] Maternal Medicine [place] [address] [place] [phone] Nicole Núñez MD [address] [place] [address] 12/06/2024 10:00 AM EARTHMOVING LABOURER Office Visit [facility] Maternal Medicine [place] [address] [facility] [address] [place] [phone] Nicole Núñez MD [address] [place] [address] 12/13/2024 9:30 AM EARTHMOVING LABOURER Appointment [facility] Maternal Medicine [place] [address] [place] [phone] Nicole Núñez MD [address] [place] [address] 12/13/2024 10:00 AM EARTHMOVING LABOURER Office Visit [facility] Maternal Medicine [place] [address] [place] [phone] Nicole Núñez MD [address] [place] [address] 12/19/2024 9:30 AM EARTHMOVING LABOURER Appointment [facility] Maternal Medicine [place] [address] [place] [phone] Nicole Núñez MD [address] [place] [address] 12/19/2024 10:00 AM EARTHMOVING LABOURER Office Visit [facility] Maternal Medicine [place] [address] [place] [phone] Nicole Núñez MD [address] [place] [address] 12/28/2024 10:15 AM EARTHMOVING LABOURER Appointment [facility] Medicine [place] [address] [place] [phone] Diane Lopez MD [address] [place], [place] [address] 12/28/2024 10:45 AM EARTHMOVING LABOURER Office Visit [facility] Maternal Medicine [place] [address] [place] [phone] Diane Lopez MD [address] [place], [place] [address] 01/11/2025 10:15 AM CDT Appointment [facility] [place] [address] [facility] [address] [place] [phone] Diane Lopez MD [address] [place], [place] [address] 01/11/2025 10:45 AM CDT Office [facility] Maternal Medicine [place] [address] [facility] [address] [place] [phone] Diane Lopez MD [address] [place], [place] [phone] documented as of this encounter Visit Diagnoses Not on filedocumented in this encounter Care Teams Senior Marketing Specialist Relationship Specialty Start Date End Date No Ref-Primary, Physician PCP - General 2/4/22 documented as of this encounter
--- OUTSIDE RECORDS SUMMARY | 2024-12-01 10:34 | XMS_ITS | Encounter Summary ---
Author Organization [place] Address [address] [place] [id number] Care Team Providers Care Licensed Plumber Name Role Phone No Ref-Primary, Physician Primary Care Provider Flower Amato MD Unavailable [phone] Reason for Referral * CV Testing (Routine) - Closed Specialty Diagnoses / Procedures Referred By Contac t Referred To Contact Cardiology Diagnoses Monochorionic diamniotic twin gestation Procedures Echo (TTE) Complete Yobani Lopez MD [address] [place] [address] Phone: tel: fax: [facility] [address] [address] Phone: tel: Referral ID Status Reason Start Date Expiration Date Visits Re quested Visits Authorized [id number] Closed 10/19/2024 10/19/2025 1 1 LOADER Reason for Visit * CV Testing (Routine) - Closed Specialty Diagnoses / Procedures Referred By Contac t Referred To Contact Cardiology Diagnoses Monochorionic diamniotic twin gestation Procedures Echo (TTE) Yobani Olivares MD [address] [place] [address] Phone: tel: fax: [facility] [address] [place] [address] Phone: tel: Referral ID Status Reason Start Date Expiration Date Visits Re quested Visits Authorized [id number] Closed 10/19/2024 10/19/2025 1 1 Encounter Details Date Type Department Care Team (Latest Contact Info) Description 11/30/2024 12:00 PM VAN LOADER - 11/30/2024 12:24 PM VAN LOADER Hospital Encounter [facility] [address] [place] [phone] Yobani Lopez MD [address] [address] [place] [address] Monochorionic diamniotic twin gestation in [...] on file Legal Sex Female 11:44 PM VAN LOADER Gender Identity Not on file Sexual Orientation [...] st Contact Info) Description 12/03/2024 2:15 PM VAN LOADER Appointment [facility] Maternal Medicine [facility] [address] [place] [phone] Nicole Núñez MD [address] [place] [address] 12/03/2024 2:45 PM VAN LOADER Office Visit [facility] Maternal Medicine [facility] [address] [place] [phone] Nicole Núñez MD [address] [place] [address] 12/06/2024 9:30 AM VAN LOADER Appointment [facility] Maternal Medicine [facility] [address] [facility] [address] [place] [phone] Nicole Núñez MD [address] [place] [address] 12/06/2024 10:00 AM VAN LOADER Office Visit [facility] Maternal Medicine [facility] [address] [facility] [address] [place] [phone] Nicole Núñez MD [address] [place] [address] 12/13/2024 9:30 AM VAN LOADER Appointment [facility] M[facility] Medicine [facility] [place] [address] [place] [phone] Nicole Núñez MD [address] [facility] [place] [address] 12/13/2024 10:00 AM VAN LOADER Office Visit [facility] Maternal Medicine [place] [address] [place] [phone] Nicole Núñez MD [address] [facility] [place] [address] 12/19/2024 9:30 AM VAN LOADER Appointment [facility] Maternal Medicine [place] [address] [place] [phone] Nicole Núñez MD [address] [facility] [place] [address] 12/19/2024 10:00 AM VAN LOADER Office Visit [facility] Maternal Medicine [place] [address] [place] [phone] Nicole Núñez MD [address] [facility] [place] [address] 12/28/2024 10:15 AM VAN LOADER Appointment [facility] M[facility] Medicine [facility] [place] [address] [place] [phone] Yobani Lopez MD [address] [address] 12/28/2024 10:45 AM VAN LOADER Office Visit [facility] M[facility] Medicine [facility] [place] [address] [place] [phone] Yobani Lopez MD [address] [place] [address] 01/11/2025 10:15 AM CDT Appointment [facility] Maternal Medicine [facility] [address] [place] [phone] Yobani Lopez MD [address] [place], [place] [address] 01/11/2025 10:45 AM CDT Office Visit [facility] Maternal Medicine [facility] [address] [place] [phone] Yobani Lopez MD [address] [place], [place] [id number] documented as of this encounter Procedures Procedure Name Priority Date/Time Associated Diagnosis Comments ECHO COMPLETE Routine 11/30/2024 1 :46 PM VAN LOADER 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 documented in this encounter Results * ECHO COMPLETE (11/30/2024 1:46 PM VAN LOADER) Anatomical Region Laterality Modality Echocardiography 11/30/2024 1:31 PM VAN LOADER Narrative 11/30/2024 2:02 PM VAN LOADER [id number] [facility] [id number]^[id number]^[id number] Study ID: [id number] [facility] [address] [place] [address] Echocardiogram Name: HEATHER CHÁVEZ Study Date: 11/30/2024 01:31 PM Patient Location: [facility] Gender: Female Patient Class: Outpatient : [id number] Age: 29 yrs Ordering Provider: YOBANI LOPEZ Referring Provider: YOBANI LOPEZ Performed By: Daphney Dao RDCS Reading Physician: Luc Dominguez MD Reason For Study: 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 Data: Number of fetuses: This is a twin gestation. Due date: 04/07/2025. Gestational age: 21w5d. Delivery at: [place]. Specific Indication: echocardiogram performed for monochorionic diamniotic [...] to the left atrium. There is laminar [id number] shunting across the foramen ovale. Atrioventricular valves: [...] Procedure Note Luc Dominguez MD - 11/30/2024 [id number]^[id number]^YOBANI Study ID:[id number] [facility] [place] [address] Echocardiogram Name: HEATHER CHÁVEZ Study Date: 11/30/2024 01:31 PM Patient Location: [facility] Gender: Female Patient Class:Outpatient : [id number] Age: 29 yrs Ordering Provider: YOBANI LOPEZ Referring Provider: YOBANI LOPEZ Performed By: Daphney Dao RDCS Reading Physician: Luc Dominguez MD Reason For Study: Monochorionic diamniotic twin gestation in secondtrimester Data: Number of fetuses: This is a twin gestation. Due date: 04/07/2025. Gestational age: 21w5d. Delivery at: [place]. Specific Indication: echocardiogram performed formonochorionic diamniotic twins. [...] in to the left atrium. There is nlffawwxmwrs-ns-awaf shunting across the foramen ovale. Atrioventricular valves: [...] Physician: Luc Dominguez MD 11/30/2024 02:02 PM us Yobani Lopez MD CV PEDS ECHO ORDERABLES Edite d Result - Final documented in this encounter Visit Diagnoses Diagnosis 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 documented in this encounter Care Teams Licensed Plumber Relationship Specialty Start Date End Date No Ref-Primary, Physician PCP - General 12/04/21 Flower Amato MD [facility] [address] [address] Assigned OBGYN Provider 11/22/24 documented as of this encounter
--- OUTSIDE RECORDS SUMMARY | 2024-12-01 10:35 | XMS_ITS | Encounter Summary ---
Author Organization [facility] Address [address] [place] [address] Care Team Providers Care Environmental Protection Inspector Name Role Phone No Ref-Primary, Physician Primary Care Provider Reason for Referral * Diagnostic Imaging Ultrasound (Routine) - Pending Review Specialty Diagnoses / Procedures Referred By Contac t Referred To Contact Radiology. Diagnoses Monochorionic diamniotic twin gestation Procedures MFM Twins US Comprehensive F/U Yobani Crespo MD [address] [place] [address] Phone: tel: fax: Referral ID Status Reason Start Date Expiration Date V isits Requested Visits Authorized [id number] Pending Review 10/19/2024 10/19/2025 1 1 SITTER * Diagnostic Imaging Ultrasound (Routine) - Pending Review Specialty Diagnoses / Procedures Referred By Contac t Referred To Contact Radiology. Diagnoses Monochorionic diamniotic twin gestation Procedures MFM Twins US Comprehensive F/U Yobani Crespo MD [address] [place] [address] Phone: tel: fax: Referral ID Status Reason Start Date Expiration Date V isits Requested Visits Authorized [id number] Pending Review 10/19/2024 10/19/2025 1 1 SITTER * Diagnostic Imaging Ultrasound (Routine) - Pending Review Specialty Diagnoses / Procedures Referred By Contac t Referred To Contact Radiology. Diagnoses Monochorionic diamniotic twin gestation Procedures MFM Twins US Comprehensive F/U Yobani Crespo MD [address] [place] [address] Phone: tel: fax: Referral ID Status Reason Start Date Expiration Date V isits Requested Visits Authorized [id number] Pending Review 10/19/2024 10/19/2025 1 1 SITTER * Diagnostic Imaging Ultrasound (Routine) - Pending Review Specialty Diagnoses / Procedures Referred By Contac t Referred To Contact Radiology. Diagnoses Monochorionic diamniotic twin gestation Procedures MFM Twins US Alivia F/U Yobani Crespo MD [address] [place] [address] Phone: tel: fax: Referral ID Status Reason Start Date Expiration Date V isits Requested Visits Authorized [id number] Pending Review 10/19/2024 10/19/2025 1 1 SITTER * Diagnostic Imaging Ultrasound (Routine) - Pending Review Specialty Diagnoses / Procedures Referred By Contac t Referred To Contact Radiology. Diagnoses Monochorionic diamniotic twin gestation Procedures MFM Twins US Comprehensive F/U Yobani Crespo MD [address] [place] [address] Phone: tel: fax: Referral ID Status Reason Start Date Expiration Date V isits Requested Visits Authorized [id number] Pending Review 10/19/2024 10/19/2025 1 1 SITTER * CV Testing (Routine) - Closed Specialty Diagnoses / Procedures Referred By Contac t Referred To Contact Cardiology Diagnoses Monochorionic diamniotic twin gestation Procedures Echo (TTE) Complete Yobani Crespo MD [address] [place] [phone] Phone: tel: fax: [facility] [address] [place] [phone] Phone: tel: Referral ID Status Reason Start Date Expiration Date Visits Re quested Visits Authorized [id number] Closed 10/19/2024 10/19/2025 1 1 SITTER * CV Testing (Routine) - Closed Specialty Diagnoses / Procedures Referred By Noa lilly Referred To Contact Cardiology Diagnoses Monochorionic diamniotic twin gestation Procedures Echo (TTE) Complete Yobani Crespo MD [address] [place] [address] Phone: tel: fax: [facility] [address] [phone] Phone: tel: Referral ID Status Reason Start Date Expiration Date Visits Re quested Visits Authorized [id number] Closed 10/19/2024 10/19/2025 1 1 SITTER * Diagnostic Imaging Ultrasound (Routine) - Pending Review Specialty Diagnoses / Procedures Referred By Noa lilly Referred To Contact Radiology. Diagnoses Monochorionic diamniotic twin gestation Procedures MFM Twins US Comprehensive F/U Yobani Crespo MD [address] [place] [address] Phone: tel: fax: Referral ID Status Reason Start Date Expiration Date V isits Requested Visits Authorized [id number] Pending Review 10/19/2024 10/19/2025 1 1 SITTER * Diagnostic Imaging Ultrasound (Routine) - Pending Review Specialty Diagnoses / Procedures Referred By Noa lilly Referred To Contact Radiology. Diagnoses Monochorionic diamniotic twin gestation Procedures MFM Twins Comprehensive Yobani Crespo MD [address] [place] [address] Phone: tel: fax: Referral ID Status Reason Start Date Expiration Date V isits Requested Visits Authorized [id number] Pending Review 10/19/2024 10/19/2025 1 1 SITTER * Diagnostic Imaging Ultrasound (Routine) - Pending Review Specialty Diagnoses / Procedures Referred By Noa lilly Referred To Contact Radiology. Diagnoses Monochorionic diamniotic twin gestation Procedures MFM Twins Comprehensive F/U Yobani Crespo MD [address] [place] [address] Phone: tel: fax: Referral ID Status Reason Start Date Expiration Date V isits Requested Visits Authorized [id number] Pending Review 10/19/2024 10/19/2025 1 1 SITTER Reason for Visit * Reason Comments Ultrasound 2/3 complete-M/D twi ns Encounter Details Date Type Department Care Team (Latest Contact Info) Description 10/19/2024 11:30 AM BABYSITTER Office Visit [facility] [place] [address] [place] [address] Yobani Crespo MD [address] [place] [address] 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 (Primary Dx); growth restriction antepartum Social History Tobacco Use Types Packs/Day Years [...] on file Legal Sex Female 11:44 PM BABYSITTER Gender Identity Not on file Sexual Orientation Not on file documented as of this encounter Progress Notes * Yobani Crespo MD - 10/19/2024 11:30 AM CST Please see Imaging tab under Chart Review for details of today's visit. Yboani Crespo SITTER documented in this encounter Nursing Notes * Debra Tran, RN - 10/19/2024 11:30 AM CST Patient presents to [facility] for 2/3 complete at 15w5d due to M/D twins. Positive movement. DeniesLOF, vaginal bleeding or cramping/contractions. SBAR given to [facility] MD, see their note in Epic. SITTER documented in this encounter Plan of Treatment Upcoming Encounters Date Type Department Care Team (Late st Contact Info) Description 12/03/2024 2:[address] [facility] [place] [address] [place] [address] Nicole Núñez MD [address] [place], [place] [phone] 12/03/2024 2:45 PM BABYSITTER Office Visit [facility] [place] [address] [place] [address] Nicole Núñez MD [address] [place] [address] 12/06/2024 9:[address] [facility] [address] [place] [address] Nicole Núñez MD [address] [place] [address] 12/06/2024 10:00 AM BABYSITTER Office Visit [facility] [place] [address] [place] [phone] Nicole Núñez MD [address] [place] [address] 12/13/2024 9:30 AM BABYSITTER Appointment [facility] [place] [address] [place] [phone] Nicole Núñez MD [address] [place] [address] 12/13/2024 10:00 AM BABYSITTER Office Visit [facility] [place] [address] [place] [phone] Nicole Núñez MD [address] [place] [address] 12/19/2024 9:30 AM BABYSITTER Appointment [facility] [place] [address] [place] [phone] Nicole Núñez MD [address] [place] [address] 12/19/2024 10:00 AM BABYSITTER Office Visit [facility] [place] [address] [place] [phone] Nicole Núñez MD [address] [place] [address] 12/28/2024 10:[address] [facility] [place] [address] [place] [address] Yobani Crespo MD [address] [place] [address] 12/28/2024 10:45 AM BABYSITTER Office Visit [facility] [place] [address] [place] [address] Yobani Crespo MD [address] [place] [address] 01/11/2025 10:[address] [facility] [place] [address] [place] [phone] Yobani Crespo MD [address] [place] [address] 01/11/2025 10:45 AM CDT Office Visit [facility] [place] [address] [place] [phone] Yobani Crespo MD [address] [place] [address] Scheduled Orders Name Type Priority Associated Diagnoses Orde r Schedule MFM Twins US Comprehensive F/U Imaging Routine 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 Expected: 12/14/2024 (Approximate), Expires: 08/19/2025 MFM Twins US Comprehensive F/U Imaging Routine 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 Expected: 12/28/2024 (Approximate), Expires: 08/19/2025 MFM Twins US Comprehensive F/U Imaging Routine 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 Expected: 01/11/2025, Expires: 08/19/2025 documented as of this encounter Results * MFM Twins US Comprehensive F/U (11/30/2024 3:11 PM BABYSITTER) Anatomical Region Laterality Modality Ultrasound 11/30/2024 2:04 PM BABYSITTER Impressions 11/30/2024 8:09 PM BABYSITTER IMPRESSION ----- Monochorionic diamniotic twin gestation at [...] wave and reversal. Narrative 11/30/2024 8:09 PM BABYSITTER Surveillance US ----- Pat. Name: DEANDRE LEYVA Study Date: 11/30/2024 2:04pm Pat. NO: [id number] Referring MD: PAMELA CUELLAR Site: [employer] Worker: Kenyetta SUSAN Lyons : 1995 Age: 29 ----- INDICATION ----- [...] options at this time including referral to [facility] for consideration of laser procedure to protect/optimize [...] discussed likely plan for delivery at the [facility]. Return to primary provider for continued care. If you have questions regarding today's evaluation or if we can be of further service, please contact the [facility] Center. anomalies may be present but not detected I spent a total of 15 minutes (excluding the ultrasound interpretation) on the date of this encounter including preparing to see the patient (reviewing medical records/tests), in direct wamv-uo-qncg contact with the patient counseling and discussing the plan of care, documenting the visit in the electronic medical record, and communicating with other health child care director and/or care coordination. Procedure Note Nicole Núñez MD - 11/30/2024 Surveillance ----- Pat. Name: DEANDRE LEYVA Study Date: 11/30/2024 2:04pm Pat. NO: [id number] Referring MD: PAMELA CUELLAR Site: [employer] Worker: Kenyetta Lyons RDMS : 1995 Age: 29 [...] options at this time including referral to [facility] for consideration oflaser procedure to [...] We also discussed likely plan for delivery [facility]. Return to primary provider for continued care. If you have questions regarding today's evaluation or if we can be offurther service, please contact the [facility]aternal[facility] Center. anomalies may be present but not detected I spent a total of 15 minutes (excluding the ultrasound interpretation) onthe date of this encounter including preparing to see the patient(reviewing medical records/tests), in direct ixfs-dq-scvu contact with the patient counseling and discussingthe plan of care, documenting the visit in the electronic medical record,and communicating with other health child care director and/or care coordination. IMPRESSION ----- Monochorionic diamniotic [...] intermittent depressed A waveand reversal. us Yobani RAE [facility] US ORDERABLES Edited Result - Final * ECHO COMPLETE (11/30/2024 1:46 PM BABYSITTER) Anatomical Region Laterality Modality Echocardiography 11/30/2024 1:42 PM BABYSITTER Narrative 11/30/2024 2:07 PM BABYSITTER [id number] [facility] [id number]^ZAK^YOBANI Study ID: [id number] [facility] [place] [address] Echocardiogram Name: DEANDRE LEYVA Study Date: 11/30/2024 01:42 PM Patient Location: [facility] Gender: Female Patient Class: Outpatient : 1995 Age: 29 yrs Ordering Provider: YOBANI CRESPO Referring Provider: YOBANI CRESPO Performed By: Daphney Dao RDCS Reading Physician: Luc Dominguez MD Reason For Study: 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 Data: Number of fetuses: This is a twin gestation. Due date: 04/07/2025. Gestational age: 21w5d. Delivery at: [facility]. Specific Indication: echocardiogram performed for monochorionic diamniotic [...] to the left atrium. There is laminar vrrvq-yq-vtif shunting across the foramen ovale. Atrioventricular valves: [...] Procedure Note Luc Dominguez MD - 11/30/2024 [id number] [facility] [id number]^ZAK^YOBANI Study ID:[id number] [facility] [address] [place] [address] Echocardiogram Name: DEANDRE LEYVA Study Date: 11/30/2024 01:42 PM Patient Location: [facility] Gender: Female Patient Class:Outpatient : 1995 Age: 29 yrs Ordering Provider: YOBANI CRESPO Referring Provider: YOBANI CRESPO Performed By: Daphney Dao RDCS Reading Physician: Luc Dominguez MD Reason For Study: Monochorionic diamniotic twin gestation in secondtrimester Data: Number of fetuses: This is a twin gestation. Due date: 04/07/2025. Gestational age: 21w5d. Delivery at: [facility]. Specific Indication: echocardiogram performed formonochorionic diamniotic twins. [...] breech position. The fetus is located on maternal'sright-side. The heart is in left chest. The [...] in to the left atrium. There is nojpmvlggkva-er-eaka shunting across the foramen ovale. Atrioventricular valves: [...] Final * ECHO COMPLETE (11/30/2024 1:46 PM BABYSITTER) Anatomical Region Laterality Modality Echocardiography 11/30/2024 1:31 PM BABYSITTER Narrative 11/30/2024 2:02 PM BABYSITTER [id number]^ZAK^YOBANI Study ID: [id number] [facility] [address] [address] Echocardiogram Name: DEANDRE LEYVA Study Date: 11/30/2024 01:31 PM Patient Location: [facility] Gender: Female Patient Class: Outpatient : 1995 Age: 29 yrs Ordering Provider: YOBANI CRESPO Referring Provider: YOBANI CRESPO Performed By: Daphney Dao RDCS Reading Physician: Luc Dominguez MD Reason For Study: 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 Data: Number of fetuses: This is a twin gestation. Due date: 04/07/2025. Gestational age: 21w5d. Delivery at: [facility]. Specific Indication: echocardiogram performed for monochorionic diamniotic [...] to the left atrium. There is laminar cetil-ht-rwsj shunting across the foramen ovale. Atrioventricular valves: [...] Procedure Note Luc Dominguez MD - 11/30/2024 [id number] [facility] [id number]^YOBANI Study ID:[id number] [facility] [address] Echocardiogram Name: DEANDRE LEYVA Study Date: 11/30/2024 01:31 PM Patient Location: [facility] Gender: Female Patient Class:Outpatient : 1995 Age: 29 yrs Ordering Provider: YOBANI CRESPO Referring Provider: YOBANI CRESPO Performed By: Daphney Dao RDCS Reading Physician: Luc Dmoinguez MD Reason For Study: Monochorionic diamniotic twin gestation in secondtrimester Data: Number of fetuses: This is a twin gestation. Due date: 04/07/2025. Gestational age: 21w5d. Delivery at: [facility]. Specific Indication: echocardiogram performed formonochorionic diamniotic twins. [...] in to the left atrium. There is nyimxocydewl-zn-llel shunting across the foramen ovale. Atrioventricular valves: [...] Dominguez MD 11/30/2024 02:02 PM us Yobani Crespo MD CV PEDS ECHO ORDERABLES Edite d Result - Final * MFM Twins Comprehensive (11/14/2024 11:59 AM BABYSITTER) Anatomical Region Laterality Modality Ultrasound 11/14/2024 10:2 4 AM BABYSITTER Impressions 11/14/2024 4:40 PM BABYSITTER IMPRESSION ----- Monochorionic diamniotic twin gestation at [...] anemia polycythemia syndrome. Narrative 11/14/2024 4:40 PM BABYSITTER Comprehensive ----- Pat. Name: DEANDRE LEYVA Study Date: 11/14/2024 10:24am Pat. NO: [id number] Referring MD: PAMELA CUELLAR Site: [employer] Worker: Emerita Corona RDMS : 1995 Age: 29 [...] 0 lb 11 oz EFW by Hadlock ([id number]) EFW discordance 30.6 % Head / Face / Neck Biometry: Furnace Liner 6.9 mm CM 2.6 mm Nasal bone [...] 0 lb 8 oz EFW by Hadlock ([id number]) EFW discordance 30.6 % Head / Face / Neck Biometry: Furnace Liner 6.8 mm CM 4.4 mm Extremities / [...] view. RVOT view. LVOT view. 3-vessel view. 5-zlltgc-izuvpha view. Situs. Aortic arch view. Bicaval view. [...] Thorax 4-chamber view. RVOT view. LVOT view. 3-klfpma-hxcxbcw view. Aortic arch view. sex: female. Fetus [...] recommendation. She was again offered referral to [facility] for a second opinion/discussion about options in [...] the patient (reviewing medical records/tests), in direct gztn-xb-upxr contact with the patient counseling and discussing the plan of care, documenting the visit in the electronic medical record, and communicating with other health child care director and/or care coordination. Please see note for details. Procedure Note Flower Amato MD - 11/14/2024 Comprehensive ----- Irma. Name: DEANDRE LEYVA Study Date: 11/14/2024 10:24am Pat. NO: [id number] Referring MD: PAMELA CUELLAR Site: [employer] Worker: Emerita Corona RDMS : 1995 Age: 29 [...] EFW (lb,oz) 0 lb 11oz EFW by Hadlock(KOP-SG-[id number]-FL) EFW discordance 30.6% Head / Face / Neck Biometry: Furnace Liner 6.9mm CM 2.6mm Nasal bone 7.8mm Fetus 2: BIOMETRY ----- BPD 42.9mm 19w 0dHadlock OFD 55.1mm 18w 2dNicolaides HC 156.8mm 18w 4dHadlock Cerebellum tr 18.1mm 18w 0dNicolaides Nuchal fold 3.0mm AC 128.0mm 18w 3d 15%Hadlock Femur 24.5mm 17w 3dHadlock Humerus 23.5mm 17w 2dJeanty Weight Calculation: EFW 219g 2%Hadlock EFW (lb,oz) 0 lb 8oz EFW by Hadlock(XTX-[id number]-FL) EFW discordance 30.6% Head / Face / Neck Biometry: Furnace Liner 6.8mm CM 4.4mm Extremities / Bony Struc [...] 4-chamber view. RVOT view. LVOT view.3-vessel view. 8-kerlha-idjyqlt view. Situs. Aortic arch view. Bicavalview. Ductal [...] / Thorax 4-chamber view. RVOT view. LVOT view.0-uqvuji-qtldbrw view. Aortic arch view. sex: female. Fetus [...] the recommendation. She was again offered [facility] for a [facility] opinion/discussion about options in [...] see the patient(reviewing medical records/tests), in direct moml-zy-dfew contact with the patient counseling and discussingthe plan of care, documenting the visit in the electronic medical record,and communicating with other health child care director and/or care coordination. Please see note for [...] anemia polycythemia syndrome. us Yobani Crespo MD [facility] US ORDERABLES Edited Result - Final * [facility] Twins US Comprehensive F/U (11/08/2024 10:15 AM BABYSITTER) Anatomical Region Laterality Modality Ultrasound 11/08/2024 9:37 AM BABYSITTER Impressions 11/08/2024 11:28 AM BABYSITTER IMPRESSION ----- Monochorionic diamniotic twin gestation at [...] anemia polycythemia syndrome. Narrative 11/08/2024 11:28 AM [facility] Surveillance US ----- Pat. Name: DEANDRE LEYVA Study Date: 11/08/2024 9:37am Pat. NO: [id number] Referring MD: PAMELA CUELLAR Site: [employer] Shop Worker: Chantell Jarquin RDMS : 1995 Age: 29 [...] - 11/08/2024 Surveillance US ----- Pat. Name: DEANDRE LEYVA Study Date: 11/08/2024 9:37am Pat. NO: [id number] Referring MD: PAMELA CUELLAR Site: [employer] Shop Worker: Chantell Jarquin RDMS : 1995 Age: 29 [...] anemia polycythemia syndrome. us Yobani Crespo MD [facility] US ORDERABLES Edited Result - Final * [facility] Twins US Comprehensive F/U (11/02/2024 2:26 PM BABYSITTER) Anatomical Region Laterality Modality Ultrasound 11/02/2024 1:30 PM BABYSITTER Impressions 11/03/2024 10:38 AM BABYSITTER IMPRESSION ----- Monochorionic diamniotic twin gestation at 17w 5d gestational age. Fetus 1 1. A normal bladder was visualized. 2. The amniotic fluid volume appeared normal. 3. The umbilical artery Doppler studies were within normal limits. 4. The middle cerebral artery Doppler studies were within normal limits. 5. The ductus venosus studies were within normal limits. Fetus 2 1. A normal bladder was visualized. 2. The amniotic fluid volume appeared normal. 3. The umbilical artery Doppler studies were consistent with elevated PI but forward flow during end diastole. 4. The middle cerebral artery Doppler studies were within normal limits. 5. The ductus venosus studies were within normal limits. Today's ultrasound does not support a diagnosis of twin twin transfusion syndrome or twin anemia polycythemia syndrome. Narrative 11/03/2024 10:38 AM [facility] Surveillance US ----- Pat. Name: DEANDRE LEYVA Study Date: 11/02/2024 1:30pm Pat. NO: [id number] Referring MD: PAMELA CUELLAR Site: [employer] Shop Worker: Pennie Bradley RDMS : 1995 Age: 29 ----- INDICATION ----- Monochorionic, Diamniotic Twin gestation with selective growth restriction. TTTS Check METHOD ----- Transabdominal ultrasound examination. View: Sufficient. ----- Twin . Number of fetuses: 2. Monochorionic-diamniotic DATING ----- Date Details Gest. age TOMMIE LMP 07/01/2024 17 w + 5 d 04/07/2025 Previous U/S 08/27/2024 GA, GA 7 w + 6 d 17 w + 3 d 04/09/2025 Assigned dating based on the LMP, selected on 10/19/2024 17 w + 5 d 04/07/2025 Fetus 1: GENERAL EVALUATION ----- Cardiac activity present. FHR 143 bpm. movements: visualized. Presentation: breech, maternal left Placenta: Anterior, thin dividing membrane Umbilical cord: previously studied Amniotic fluid: Amount of AF: normal. MVP 6.1 cm Fetus 2: GENERAL EVALUATION ----- Cardiac activity present. FHR 160 bpm. movements: visualized. Presentation: cephalic, maternal right Placenta: Anterior, thin dividing membrane Umbilical cord: previously studied Amniotic fluid: Amount of AF: normal. MVP 3.7 cm Fetus 1: DOPPLER ----- Umbilical Artery: normal PI 1.56 HR 143 bpm Mid Cerebral Artery: normal PS 25.72 cm/s PS 1.12 MoM Ductus Venosus: A-wave 14.50 cm/s normal A wave a/S 0.51 Fetus 2: DOPPLER ----- Umbilical Artery: abnormal, Elevated PI but there was no evidence of absent or reversed end diastolic flow PI 1.83 HR 160 bpm Mid Cerebral Artery: normal PS 32.15 cm/s PS 1.40 MoM Ductus Venosus: A-wave 20.27 cm/s normal A wave a/S 0.45 Fetus 1: TTTS ASSESSMENT ----- Cardiac activity: present Placental location: ... Placental cord insertion: ... bladder: normal hydrops: No MVP: 6.1 cm MCA PSV: 25.72 cm/s MCA MoM: 1.12 UA PI: 1.56, ... Fetus 2: TTTS ASSESSMENT ----- Cardiac activity: present Placental location: ... Placental cord insertion: ... bladder: normal hydrops: No MVP: 3.7 cm MCA PSV: 32.15 cm/s MCA MoM: 1.4 UA PI: 1.83, ... RECOMMENDATION ----- Thank-you for referring your patient to assess for signs of TTTS/TAPS due to monochorionic twin . We discussed the findings on today's ultrasound with the patient. sFGR Type II (previously AEDF) We discussed that there was some improvement in the UA Doppler of twin 2 today as there was persistent forward flow during end diastole (had previously been absent end diastolic flow). Additionally, the MCA Doppler of twin 2 also normalized. Although these findings do not negate the associated risks of sFGR, it is certainly reassuring that there was no further progression to reversed end diastolic flow today. Deandre and Los had questions regarding expected outcomes in the setting of Type II sFGR, which had previously been discussed. We had also reviewed the concept of periviability and that at our institution, this begins at 22 weeks. We discussed that if delivery is recommended in the 22nd week due to concerns for well-being, there are francois differences in outcomes for fetuses with FGR and normally grown fetuses. We will continue to have more information at the time of the comprehensive anatomy US and as the progresses to assess growth trajectory and Doppler trends. If there is ongoing sFGR, we discussed the possibility of an outpatient NICU consultation to further discuss nuances of periviability and to help inform gestational age at which they would desire monitoring. Given previable , we recommend continued weekly TTTS/TAPS assessments. growth will continue to be assessed every 3 weeks. echocardiograms with Pediatric Cardiology as well as comprehensive anatomy US are also scheduled at this time. Return to primary provider for continued care. If you have questions regarding today's evaluation or if we can be of further service, please contact the [facility]. anomalies may be present but not detected I spent a total of 15 minutes (excluding the ultrasound interpretation) on the date of this encounter including preparing to see the patient (reviewing medical records/tests), in direct mwci-sj-gzka contact with the patient during the visit counseling and discussing the plan of care and documenting the visit in the electronic medical record. Procedure Note Flor Dickson MD - 11/03/2024 Surveillance US ----- Pat. Name: DEANDRE LEYVA Study Date: 11/02/2024 1:30pm Pat. NO: [id number] Referring MD: PAMELA CUELLAR Site: [employer] Worker: Pennie Bradley RDMS : 1995 Age: 29 ----- INDICATION ----- Monochorionic, Diamniotic Twin gestation with selective growthrestriction. TTTS Check METHOD ----- Transabdominal ultrasound examination. View: Sufficient. ----- Twin . Number of fetuses: 2. Monochorionic-diamniotic DATING ----- DateDetailsGest. age TOMMIE LMP 9/1/584356 w + 5 d 04/07/2025 Previous U/S 08/27/2024 GA, GA7 w + 6 d17 w + 3 d 04/09/2025 Assigned dating based on the LMP, selected on w + 5 d 04/07/2025 Fetus 1: GENERAL EVALUATION ----- Cardiac activity present. FHR 143 bpm. movements: visualized.Presentation: breech, maternal left Placenta: Anterior, thin dividing membrane Umbilical cord: previously studied Amniotic fluid: Amount of AF: normal. MVP 6.1 cm Fetus 2: GENERAL EVALUATION ----- Cardiac activity present. FHR 160 bpm. movements: visualized.Presentation: cephalic, maternal right Placenta: Anterior, thin dividing membrane Umbilical cord: previously studied Amniotic fluid: Amount of AF: normal. MVP 3.7 cm Fetus 1: DOPPLER ----- Umbilical Artery: normal PI 1.56 HR 143bpm Mid Cerebral Artery: normal PS 25.72cm/s PS 1.12MoM Ductus Venosus: A-wave 14.50cm/s normal A wave a/S 0.51 Fetus 2: DOPPLER ----- Umbilical Artery: abnormal, Elevated PI but there was no evidence ofabsent or reversed end diastolic flow PI 1.83 HR 160bpm Mid Cerebral Artery: normal PS 32.15cm/s PS 1.40MoM Ductus Venosus: A-wave 20.27cm/s normal A wave a/S 0.45 Fetus 1: TTTS ASSESSMENT ----- Cardiac activity: present Placental location: ... Placental cord insertion: ... bladder: normal hydrops: No MVP: 6.1 cm MCA PSV: 25.72 cm/s MCA MoM: 1.12 UA PI: 1.56, ... Fetus 2: TTTS ASSESSMENT ----- Cardiac activity: present Placental location: ... Placental cord insertion: ... bladder: normal hydrops: No MVP: 3.7 cm MCA PSV: 32.15 cm/s MCA MoM: 1.4 UA PI: 1.83, ... RECOMMENDATION ----- Thank-you for referring your patient to assess for signs of TTTS/TAPS dueto monochorionic twin . We discussed the findings on today'sultrasound with the patient. sFGR Type II (previously AEDF) We discussed that there was some improvement in the UA Doppler of twin 2today as there was persistent forward flow during end diastole (hadpreviously been absent end diastolic flow). Additionally, the MCA Doppler of twin 2 also normalized.Although these findings do not negate the associated risks of sFGR, it iscertainly reassuring that there was no further progression to reversed end diastolic flow today.Deandre and Los had questions regarding expected outcomes in the setting ofType II sFGR, which had previously been discussed. We had also reviewed the concept ofperiviability and that at our institution, this begins at 22 weeks. Wediscussed that if delivery is recommended in the 22nd week due to concerns for well-being, thereare francois differences in outcomes for fetuses with FGR and normally grownfetuses. We will continue to have more information at the time of the comprehensive anatomyUS and as the progresses to assess growth trajectory and Dopplertrends. If there is ongoing sFGR, we discussed the possibility of an outpatient NICUconsultation to further discuss nuances of periviability and to helpinform gestational age at which they would desire monitoring. Given previable , we recommend continued weekly TTTS/TAPSassessments. growth will continue to be assessed every 3 weeks. echocardiograms with Pediatric Cardiology as well as comprehensive anatomy US are alsoscheduled at this time. Return to primary provider for continued care. If you have questions regarding today's evaluation or if we can be offurther service, please contact the [facility]. anomalies may be present but not detected I spent a total of 15 minutes (excluding the ultrasound interpretation) onthe date of this encounter including preparing to see the patient(reviewing medical records/tests), in direct tpcu-kg-bipc contact with the patient during the visitcounseling and discussing the plan of care and documenting the visit inthe electronic medical record. IMPRESSION ----- Monochorionic diamniotic twin gestation at 17w 5d gestational age. Fetus 1 1. A normal bladder was visualized. 2. The amniotic fluid volume appeared normal. 3. The umbilical artery Doppler studies were within normal limits. 4. The middle cerebral artery Doppler studies were within normal limits. 5. The ductus venosus studies were within normal limits. Fetus 2 1. A normal bladder was visualized. 2. The amniotic fluid volume appeared normal. 3. The umbilical artery Doppler studies were consistent with elevated PIbut forward flow during end diastole. 4. The middle cerebral artery Doppler studies were within normal limits. 5. The ductus venosus studies were within normal limits. Today's ultrasound does not support a diagnosis of twin twin transfusionsyndrome or twin anemia polycythemia syndrome. us Yobani Crespo MD [facility] US ORDERABLES Edited Result - Final * [facility] US Comprehensive F/U (10/26/2024 11:48 AM BABYSITTER) Anatomical Region Laterality Modality Ultrasound 10/26/2024 11:0 5 AM BABYSITTER Impressions 10/26/2024 1:47 PM BABYSITTER IMPRESSION ----- Monochorionic diamniotic twin gestation at 16w 5d gestational age. Fetus 1 1. A normal bladder was visualized. 2. The amniotic fluid volume appeared normal. 3. The umbilical artery Doppler studies were within normal limits. 4. The middle cerebral artery Doppler studies were within normal limits. Fetus 2 1. A normal bladder was visualized. 2. The amniotic fluid volume appeared normal. 3. The umbilical artery Doppler studies demonstrate intermittent absent end diastolic flow. 4. The middle cerebral artery Doppler studies demonstrate increased MCA PSV. Narrative 10/26/2024 1:47 PM BABYSITTER Surveillance US ----- Pat. Name: DEANDRE LEYVA Study Date: 10/26/2024 11:05am Pat. NO: [id number] Referring MD: PAMELA CUELLAR Site: [employer] Worker: Drea Varela RDMS : 1995 Age: 29 ----- INDICATION ----- Monochorionic, Diamniotic Twin gestation. TTTS Check METHOD ----- Transabdominal ultrasound examination. View: Sufficient ----- Twin . Number of fetuses: 2 DATING ----- Date Details Gest. age TOMMIE LMP 07/01/2024 16 w + 5 d 04/07/2025 Previous U/S 08/27/2024 GA, GA 7 w + 6 d 16 w + 3 d 04/09/2025 Assigned dating based on the LMP, selected on 10/19/2024 16 w + 5 d 04/07/2025 Fetus 1: GENERAL EVALUATION ----- Cardiac activity present. FHR 150 bpm. movements: visualized. Presentation: cephalic, maternal left Placenta: Anterior, No Previa, > 2 cm from internal os, thin dividing membrane Umbilical cord: previously studied Amniotic fluid: Amount of AF: normal. MVP 4.7 cm Fetus 2: GENERAL EVALUATION ----- Cardiac activity present. FHR 164 bpm. movements: visualized. Presentation: breech, maternal right Placenta: Anterior, No Previa, > 2 cm from internal os, thin dividing membrane Umbilical cord: previously studied Amniotic fluid: Amount of AF: normal. MVP 3.0 cm Fetus 1: DOPPLER ----- Umbilical Artery: normal PI 1.47 HR 152 bpm Mid Cerebral Artery: normal PS 29.50 cm/s PS 1.35 MoM Fetus 2: DOPPLER ----- Umbilical Artery: abnormal, Intermittent Absent End Diastolic Flow PI 1.59 HR 160 bpm Mid Cerebral Artery: abnormal PS 34.06 cm/s PS 1.56 MoM Fetus 1: TTTS ASSESSMENT ----- Cardiac activity: present Placental location: Anterior bladder: normal hydrops: No MVP: 4.7 cm MCA PSV: 29.5 cm/s MCA MoM: 1.35 UA PI: 1.47, ... Ductus Venosus: normal Fetus 2: TTTS ASSESSMENT ----- Cardiac activity: present Placental location: Anterior bladder: normal hydrops: No MVP: 3 cm MCA PSV: 34.06 cm/s MCA MoM: 1.56 UA PI: 1.59, ... Ductus Venosus: normal RECOMMENDATION ----- I discussed the findings on today's ultrasound with the patient. 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 The UA Doppler assessment for Fetus 2 is again abnormal due to findings of intermittent absent end diastolic flow (AEDF). The MCA Doppler evaluation has normalized for Fetus 1 and improved for Fetus 2. We reviewed that with Type II sFGR there is an increased risk of single or double intrauterine demise (16-40%) as well as a risk of further progression of the UA Doppler abnormality (50%). She is aware of potential miscarriage for one or both twins and potential for associated neurodevelopmental impacts if Fetus 1 were to survive the loss of Fetus 2. We discussed that there is no definitive guidance for management of Type II sFGR and that is impossible to predict the outcome. We again reviewed the option to consult with the [facility] to discuss the option of SLFP further. At this time, they wish to continue expectant management as they would not consider termination. We also reviewed the possibility of prolonged antepartum admission at the time they are accepting of intervention if the continues to advance. They understand that admission would be recommended at [facility]. We reviewed the difficult decisions that may need to be considered, which may include delivery as a life saving major for Fetus 2, but that this comes with incurred prematurity and potential mortality for both Fetus 1 and 2 depending on clinical scenario and gestational age. Given previable , recommend continued weekly assessment to monitor status, amniotic fluid level, the presence of bladder, and UA and MCA Doppler assessment. growth will continue to be assessed every 3 weeks. echocardiograms with Pediatric Cardiology are also scheduled at this time. Return to primary provider for continued care. [...] the patient (reviewing medical records/tests), in direct besd-jg-lhmb contact with the patient during the visit counseling and discussing the plan of care and documenting the visit in the electronic medical record. Procedure Note Estrella Esteban MD - 10/26/2024 [facility] US ----- Pat. Name: DEANDRE LEYVA Study Date: 10/26/2024 11:05am Pat. NO: [id number] Referring MD: PAMELA CUELLAR Site: [employer] Worker: Drea Varela RDMS : 1995 Age: 29 ----- INDICATION ----- Monochorionic, Diamniotic Twin gestation. TTTS Check METHOD ----- Transabdominal ultrasound examination. View: Sufficient ----- Twin . Number of fetuses: 2 DATING ----- DateDetailsGest. age TOMMIE LMP w + 5 d 04/07/2025 Previous U/S 08/27/2024 GA, GA7 w + 6 d16 w + 3 d 04/09/2025 Assigned dating based on the LMP, selected on w + 5 d 04/07/2025 Fetus 1: GENERAL EVALUATION ----- Cardiac activity present. FHR 150 bpm. movements: visualized.Presentation: cephalic, maternal left Placenta: Anterior, No Previa, > 2 cm from internal os, thin dividingmembrane Umbilical cord: previously studied Amniotic fluid: Amount of AF: normal. MVP 4.7 cm Fetus 2: GENERAL EVALUATION ----- Cardiac activity present. FHR 164 bpm. movements: visualized.Presentation: breech, maternal right Placenta: Anterior, No Previa, > 2 cm from internal os, thin dividingmembrane Umbilical cord: previously studied Amniotic fluid: Amount of AF: normal. MVP 3.0 cm Fetus 1: DOPPLER ----- Umbilical Artery: normal PI 1.47 HR 152bpm Mid Cerebral Artery: normal PS 29.50cm/s PS 1.35MoM Fetus 2: DOPPLER ----- Umbilical Artery: abnormal, Intermittent Absent End Diastolic Flow PI 1.59 HR 160bpm Mid Cerebral Artery: abnormal PS 34.06cm/s PS 1.56MoM Fetus 1: TTTS ASSESSMENT ----- Cardiac activity: present Placental location: Anterior bladder: normal hydrops: No MVP: 4.7 cm MCA PSV: 29.5 cm/s MCA MoM: 1.35 UA PI: 1.47, ... Ductus Venosus: normal Fetus 2: TTTS ASSESSMENT ----- Cardiac activity: present Placental location: Anterior bladder: normal hydrops: No MVP: 3 cm MCA PSV: 34.06 cm/s MCA MoM: 1.56 UA PI: 1.59, ... Ductus Venosus: normal RECOMMENDATION ----- I discussed the findings on today's ultrasound with the patient. Today, we again reviewed the prior diagnosis of Type II selective fetalgrowth restriction for Fetus 2. The UA Doppler assessment for Fetus 2 isagain abnormal due to findings of intermittent absent end diastolic flow (AEDF). The MCA Dopplerevaluation has normalized for Fetus 1 and improved for Fetus 2. We reviewed that with Type II sFGR there is an increased risk of single ordouble intrauterine demise (16-40%) as well as a risk of furtherprogression of the UA Doppler abnormality (50%). She is aware of potential miscarriage for oneor both twins and potential for associated neurodevelopmental impacts ifFetus 1 were to survive the loss of Fetus 2. We discussed that there is no definitive guidance formanagement of Type II sFGR and that is impossible to predict the outcome.We again reviewed the option to consult with the [facility] to discuss theoption of SLFP further. At this time, they wish to continue expectantmanagement as they would not consider termination. We also reviewed the possibility of prolongedantepartum admission at the time they are accepting of intervention if thepregnancy continues to advance. They understand that admission would [facility] at [facility]. We reviewed the difficult decisions that may need to beconsidered, which may include delivery as a life saving major for Fetus 2, but that this comeswith incurred prematurity and potential mortality for both Fetus 1and 2 depending on clinical scenario and gestational age. Given previable , recommend continued weekly assessment tomonitor status, amniotic fluid level, the presence of bladder, andUA and MCA Doppler assessment. growth will continue to be assessed every 3 weeks. Fetalechocardiograms with Pediatric Cardiology are also scheduled at thistime. Return to primary provider for continued care. [...] see the patient(reviewing medical records/tests), in direct eahq-to-fvec contact with the patient during the visitcounseling and discussing the plan of care and documenting the visit inthe electronic medical record. IMPRESSION ----- Monochorionic diamniotic twin gestation at 16w 5d gestational age. Fetus 1 1. A normal bladder was visualized. 2. The amniotic fluid volume appeared normal. 3. The umbilical artery Doppler studies were within normal limits. 4. The middle cerebral artery Doppler studies were within normal limits. Fetus 2 1. A normal bladder was visualized. 2. The amniotic fluid volume appeared normal. 3. The umbilical artery Doppler studies demonstrate intermittent absentend diastolic flow. 4. The middle cerebral artery Doppler studies demonstrate increased MCAPSV. us Yobani Crespo MD [facility] US ORDERABLES Edited Result - Final documented in this encounter Visit Diagnoses Diagnosis 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- Primary growth restriction antepartum 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 documented in this encounter Care Teams Environmental Protection Inspector Relationship Specialty Start Date End Date No Ref-Primary, Physician PCP - General 12/04/21 documented as of this encounter
--- OUTSIDE RECORDS SUMMARY | 2024-12-01 10:35 | XMS_ITS | Encounter Summary ---
Author Organization [facility] Address [address] [place] [address] Care Team Providers Care Stitching Department Supervisor Name Role Phone No Ref-Primary, Physician Primary Care Provider Encounter Details Date Type Department Care Team (Latest Contact Info) Description 10/19/2024 Travel Social History Tobacco Use Types Packs/Day [...] on file Legal Sex Female 11:44 PM OIL PROCESSING TECHNICIAN Gender Identity Not on file Sexual Orientation Not on file documented as of this encounter Plan of Treatment Upcoming Encounters Date Type Department Care Team (Late st Contact Info) Description 12/03/2024 2:15 PM OIL PROCESSING TECHNICIAN Appointment [facility] [address] [place], [place] [address] [place] [phone] Nicole Núñez MD [address] [place] [address] [phone] 12/03/2024 2:45 PM OIL PROCESSING TECHNICIAN Office Visit [facility] [address] [place] [address] [phone] Nicole Núñez MD [address] [place] [id number] 12/06/2024 9:30 AM OIL PROCESSING TECHNICIAN Appointment [facility] Maternal Medicine [place] [address] [place] [phone] Nicole Núñez MD [address] [place] [phone] 12/06/2024 10:00 AM OIL PROCESSING TECHNICIAN Office Visit [facility] [place] [address] [facility] [address] [place] [phone] Nicole Núñez MD [address] [place] [phone] 12/13/2024 9:30 AM OIL PROCESSING TECHNICIAN Appointment [facility] Maternal Medicine [place] [address] [place] [phone] Nicole Núñez MD [address] [place] [id number] 12/13/2024 10:00 AM OIL PROCESSING TECHNICIAN Office Visit [facility] [place] [address] [place] [phone] Nicole Núñez MD [address] [place] [id number] 12/19/2024 9:30 AM OIL PROCESSING TECHNICIAN Appointment [facility] Maternal Medicine [place] [address] [place] [phone] Nicole Núñez MD [address] [place] [phone] 12/19/2024 10:00 AM OIL PROCESSING TECHNICIAN Office Visit [facility] [place] [address] [place] [phone] Nicole Núñez MD [address] [place] [address] 12/28/2024 10:15 AM OIL PROCESSING TECHNICIAN Appointment [facility] Medicine [place] [address] [place] [phone] Diane Lopez MD [address] [place], [place] [phone] 12/28/2024 10:45 AM OIL PROCESSING TECHNICIAN Office Visit [facility] Maternal Medicine [place] [address] [place] [phone] Diane Lopez MD [address] [place], [place] [phone] 01/11/2025 10:15 AM CDT Appointment [facility] [place] [address] [address] [facility] [address] [place] [phone] Diane Lopez MD [address] [place], [place] [phone] 01/11/2025 10:45 AM CDT Office Visit [facility] [place] [address] [address] [facility] [address] [place] [phone] Diane Lopez MD [address] [place], [place] [phone] documented as of this encounter Visit Diagnoses Not on filedocumented in this encounter Care Teams Stitching Department Supervisor Relationship Specialty Start Date End Date No Ref-Primary, Physician PCP - General 2/4/22 documented as of this encounter
--- OUTSIDE RECORDS SUMMARY | 2024-12-01 10:35 | XMS_ITS | Encounter Summary ---
Author Organization [facility] Address [address] [place] [address] Care Team Providers Care Urinalysis Technician Name Role Phone No Ref-Primary, Physician Primary Care Provider Reason for Referral * Diagnostic Imaging Ultrasound (Routine) - Pending Review Specialty Diagnoses / Procedures Referred By Noa lilly Referred To Contact Radiology. Diagnoses related condition, antepartum Procedures MFM Twins US OB Complete 2/3 Tri Pamela Cuellar MD [facility] [address] [place] [address] Phone: tel: fax: Referral ID Status Reason Start Date Expiration Date V isits Requested Visits Authorized [id number] Pending Review 10/10/2024 10/10/2025 1 1 OARD ACTION ASSEMBLER Reason for Visit * Diagnostic Imaging Ultrasound (Routine) - Pending Review Specialty Diagnoses / Procedures Referred By Noa lilly Referred To Contact Radiology. Diagnoses related condition, antepartum Procedures MFM Twins US OB Complete 2/3 Tri Pamela Cuellar MD [facility] [address] [place] [address] Phone: tel: fax: Referral ID Status Reason Start Date Expiration Date V isits Requested Visits Authorized [id number] Pending Review 10/10/2024 10/10/2025 1 1 Encounter Details Date Type Department Care Team (Latest Contact Info) Description 10/19/2024 11:00 AM KEYBOARD ACTION ASSEMBLER - 10/19/2024 11:59 PM KEYBOARD ACTION ASSEMBLER Hospital Encounter [facility] [place] [address] [facility] [address] [place] [address] Diane Lopez MD [address] [place], [place] [id number] related condition, antepartum Discharge Disposition: Home or Self Care Social [...] on file Legal Sex Female 11:44 PM KEYBOARD ACTION ASSEMBLER Gender Identity Not on file Sexual Orientation [...] st Contact Info) Description 12/03/2024 2:15 PM KEYBOARD ACTION ASSEMBLER Appointment [facility] [place] [address] [place] [phone] Nicole Núñez MD [address] [place] [phone] 12/03/2024 2:45 PM KEYBOARD ACTION ASSEMBLER Office Visit [facility] [address] [place] [phone] Nicole Núñez MD [address] [place] [address] 12/06/2024 9:30 AM KEYBOARD ACTION ASSEMBLER Appointment [facility] [address] [place] [phone] Nicole Núñez MD [address] [place] [phone] 12/06/2024 10:00 AM KEYBOARD ACTION ASSEMBLER Office Visit [facility] [address] [place] [phone] Nicole Núñez MD [address] [place] [phone] 12/13/2024 9:30 AM KEYBOARD ACTION ASSEMBLER Appointment [facility] [address] [place] [phone] Nicole Núñez MD [address] [place] [phone] 12/13/2024 10:00 AM KEYBOARD ACTION ASSEMBLER Office Visit [facility] [place] [address] [place] [phone] Nicole Núñez MD [address] [place] [address] 12/19/2024 9:30 AM KEYBOARD ACTION ASSEMBLER Appointment [facility] [place] [address] [place] [phone] Nicole Núñez MD [address] [place] [address] 12/19/2024 10:00 AM KEYBOARD ACTION ASSEMBLER Office Visit [facility] [place] [address] [place] [phone] Nicole Núñez MD [address] [place] [address] 12/28/2024 10:15 AM KEYBOARD ACTION ASSEMBLER Appointment [facility] [place] [address] [place] [phone] Diane Lopez MD [address] [address] 12/28/2024 10:45 AM KEYBOARD ACTION ASSEMBLER Office Visit [facility] [place] [address] [place] [phone] Diane Lopez MD [address] [place] [address] 01/11/2025 10:15 AM CDT Appointment [facility] [place] [address] [place] [phone] Diane Lopez MD [address] [place] [address] 01/11/2025 10:45 AM CDT Office Visit [facility] [place] [address] [place] [address] Diane Lopez MD [address] [place], [place] [address] documented as of this encounter Procedures Procedure Name Priority Date/Time Associated Diagnosis Comments MFM TWINS US OB COMPLETE 2/3 TRI Routine 10/19/2024 1:39 PM KEYBOARD ACTION ASSEMBLER related condition, antepartum documented in this encounter Results * MFM Twins US OB Complete 2/3 Tri (10/19/2024 1:39 PM KEYBOARD ACTION ASSEMBLER) Anatomical Region Laterality Modality Ultrasound 10/19/2024 11:0 2 AM KEYBOARD ACTION ASSEMBLER Impressions 10/21/2024 3:34 PM KEYBOARD ACTION ASSEMBLER IMPRESSION ----- Monochorionic diamniotic twin gestation at [...] long and closed. Narrative 10/21/2024 3:34 PM KEYBOARD ACTION ASSEMBLER Trim ----- Pat. Name: HEATHER CHÁVEZ Study Date: 10/19/2024 11:02am Pat. NO: [id number] Referring MD: PAMELA CUELLAR Site: Game Technician: Chantell Jarquin RDMS : 1995 Age: 29 [...] 0 lb 5 oz EFW by Hadlock ([id number]) EFW discordance 26.5 % Head / Face / Neck Biometry: Jigman 6.3 mm CM 2.2 mm Nasal bone 4.1 mm Fetus 2: BIOMETRY ----- BPD 31.4 mm 15w 6d Hadlock OFD 38.8 mm -/- Nicolaides HC 112.9 mm 15w 3d Hadlock Cerebellum tr 15.8 mm 15w 6d Nicolaides Nuchal fold 2.1 mm AC 89.7 mm 15w 1d 34% Hadlock Femur 16.0 mm 14w 5d Hadlock Humerus 16.1 mm 14w 4d [facility] Weight Calculation: EFW 113 g 9% Hadlock EFW (lb,oz) 0 lb 4 oz EFW by Hadlock ([id number]-FL) EFW discordance 26.5 % Head / Face / Neck Biometry: Jigman 6.7 mm CM 2.5 mm Fetus 1: [...] Heart / Thorax 4-chamber view. 3-vessel view. 5-brndni-dpigjna view. sex: female. Fetus 2: ANATOMY ----- [...] Profile. Nose. Maxilla. Mandible. Heart / Thorax 4-ghwscz-vpoxuuz view. Aortic arch view. Bicaval view. Ductal [...] discussed the option a referral to the [place] [facility] to discuss the option of SLFP further, which the couple decline today and will await the results of the next US. We reviewed the close surveillance is indicated given AEDF in twin 2 and therefore we will plan to see Heather weekly at that time to continue to monitor status, amniotic fluid and Dopplers closely. We also discussed that there is a risk of loss during this , prior to her scheduled follow-up; Heather did as how she would know if [...] the patient (reviewing medical records/tests), in direct bcda-al-hbmv contact with the patient during the visit counseling and discussing the plan of care and documenting the visit in the electronic medical record. Procedure Note Diane Lopez MD - 10/22/2024 / Trim ----- Pat. Name: HEATHER CHÁVEZ Study Date: 10/19/2024 11:02am Pat. NO: [id number] Referring MD: PAMELA CUELLAR Site: Game Technician: Chantell Jarquin RDMS : 1995 Age: 29 [...] EFW (lb,oz) 0 lb 5oz EFW by Hadlock(DOU-SW-GI-FL) EFW discordance 26.5% Head / Face / Neck Biometry: Jigman 6.3mm CM 2.2mm Nasal bone 4.1mm Fetus 2: BIOMETRY ----- BPD 31.4mm 15w 6dHadlock OFD 38.8mm -/-Nicolaides HC 112.9mm 15w 3dHadlock Cerebellum tr 15.8mm 15w 6dNicolaides Nuchal fold 2.1mm AC 89.7mm 15w 1d 34%Hadlock Femur 16.0mm 14w 5dHadlock Humerus 16.1mm 14w 4dJeanty Weight Calculation: EFW 113g 9%Hadlock EFW (lb,oz) 0 lb 4oz EFW by Hadlock([id number]-UB-IF-FL) EFW discordance 26.5% Head / Face / Neck Biometry: Jigman 6.7mm CM 2.5mm Fetus 1: ANATOMY ----- [...] pellucidi. Heart / Thorax 4-chamber view. 3-vessel view.5-hlzkaz-zrysubc view. sex: female. Fetus 2: ANATOMY ----- [...] Lips. Profile. Nose. Maxilla.Mandible. Heart / Thorax 0-pwguvy-cvdcbqi view. Aortic archview. Bicaval view. Ductal arch [...] discussed the option a referral to the [place] [facility] center todiscuss the option of SLFP further, which the couple decline today andwill await the results of the next US. We reviewed the close surveillance is indicated given AEDF in twin 2and therefore we will plan to see Heather weekly at that time to continue tomonitor status, amniotic fluid and Dopplers closely. We also discussed that there is arisk of loss during this , prior to her scheduledfollow-up; Heather did as how she would know if [...] see the patient(reviewing medical records/tests), in direct xzms-jf-dbiu contact with the patient during the visitcounseling [...] imaging the cervix appears long and closed. [facility] Tim Cuellar MD [facility] ORDERABLES Edited Re sult - Final documented in this encounter Visit Diagnoses Diagnosis related condition, antepartum documented in this encounter Care Teams Urinalysis Technician Relationship Specialty Start Date End Date No Ref-Primary, Physician PCP - General 12/04/21 documented as of this encounter
--- OUTSIDE RECORDS SUMMARY | 2024-12-01 10:35 | XMS_ITS | Clinical Summary ---
Author Organization [place] Address [address] [facility] 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 (Primary Dx); Intrauterine growth restriction affecting antepartum care of mother in first trimester, fetus 2; Ductus venosus abnormality 11/30/2024 1:31 PM GANG PUNCH OPERATOR - 11/30/2024 11:59 PM GANG PUNCH OPERATOR Hospital Encounter [facility] [place] [address] [place] [address] Nicole Núñez MD 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 Discharge Disposition: Home or Self Care 11/30/2024 12:25 PM GANG PUNCH OPERATOR - 11/30/2024 1:30 PM GANG PUNCH OPERATOR Hospital Encounter [facility] [address] [place] [phone] Yobani Crespo MD 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 Discharge Disposition: Home or Self Care 11/30/2024 12:00 PM GANG PUNCH OPERATOR - 11/30/2024 12:24 PM GANG PUNCH OPERATOR Hospital Encounter [facility] [address] [place] [phone] Yobani Crespo MD 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 Discharge Disposition: Home or Self Care 11/30/2024 Office Visit [facility] [address] [place] [address] [facility] [address] [place] [address] Luc Dominguez MD cardiac anomaly complicating , antepartum, fetus 1 (Primary Dx); cardiac anomaly complicating , antepartum, fetus 2 11/30/2024 Travel 11/22/2024 10:00 AM GANG PUNCH OPERATOR Office Visit [facility] [place] [address] [place] [address] Nicole Núñez MD 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 (Primary Dx); Intrauterine growth restriction affecting antepartum care of mother in first trimester, fetus 2 11/22/2024 9:28 AM GANG PUNCH OPERATOR - 11/22/2024 11:59 PM GANG PUNCH OPERATOR Hospital Encounter [facility] [place] [address] [place] [address] Nicole Núñez MD 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 Discharge Disposition: Home or Self Care 11/22/2024 Travel 11/14/2024 11:30 AM GANG PUNCH OPERATOR Office Visit [facility] Medicine [place] [address] [place] [address] Flower Amato MD 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 (Primary Dx); Discordant growth in twin gestation, fetus 2 of multiple gestation; Intrauterine growth restriction affecting antepartum care of mother in first trimester, fetus 2 11/14/2024 10:09 AM GANG PUNCH OPERATOR - 11/14/2024 11:59 PM GANG PUNCH OPERATOR Hospital Encounter [facility] [place] [address] [place] [address] Flower Amato MD 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 Discharge Disposition: Home or Self Care 11/14/2024 Travel 11/08/2024 10:00 AM GANG PUNCH OPERATOR Office Visit [facility] [place] [address] [place] [address] Flor Dickson MD 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 (Primary Dx); Discordant growth in twin gestation, fetus 2 of multiple gestation 11/08/2024 9:24 AM GANG PUNCH OPERATOR - 11/08/2024 11:59 PM GANG PUNCH OPERATOR Hospital Encounter [facility] Maternal Medicine [facility] [address] [place] [address] Flor Dickson MD 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 Discharge Disposition: Home or Self Care 11/08/2024 Travel 11/02/2024 2:00 PM GANG PUNCH OPERATOR Office Visit [facility] [place] [address] [place] [address] Yobani Crespo MD Nashif, Sereen, MD 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 (Primary Dx); Intrauterine growth restriction affecting antepartum care of mother in first trimester, fetus 2 11/02/2024 1:22 PM GANG PUNCH OPERATOR - 11/02/2024 11:59 PM GANG PUNCH OPERATOR Hospital Encounter [facility] [place] [address] [place] [address] Yobani Crespo MD Nashif, Sereen, MD 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 Discharge Disposition: Home or Self Care 11/02/2024 Travel 10/26/2024 11:30 AM GANG PUNCH OPERATOR Office Visit [facility] [address] [phone] Estrella Esteban MD 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 (Primary Dx); growth restriction antepartum 10/26/2024 11:00 AM GANG PUNCH OPERATOR Ancillary Procedure [facility] [address] [phone] Estrella Esteban MD 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 10/26/2024 Travel 10/19/2024 11:30 AM GANG PUNCH OPERATOR Office Visit [facility] [place] [address] [place] [address] Yobani Crespo MD 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 (Primary Dx); growth restriction antepartum 10/19/2024 11:00 AM GANG PUNCH OPERATOR - 10/19/2024 11:59 PM GANG PUNCH OPERATOR Hospital Encounter [place] [address] [facility] [address] [place] [address] Yobani Crespo MD related condition, antepartum Discharge Disposition: Home or Self Care 10/19/2024 Travel 10/15/2024 PRE VISIT [place] [address] [facility] [address] [place] [phone] Debra Tran RN Ultrasound (2/3 complete-Twin , mono-di) 10/10/2024 Transcribe Orders [place] [address] [facility] [address] [place] [phone] Zakia Cuellar MD related condition, antepartum (Primary Dx) 10/09/2024 Medical Correspondence [facility] Information Management [address] [facility] [address] [place] [address] Scan, Non-Provider from Last 3 Months Social History Tobacco Use Types Packs/Day Years [...] on file Legal Sex Female 11:44 PM GANG PUNCH OPERATOR Gender Identity Not on file Sexual Orientation Not on file Last Filed Vital Signs Vital Sign Reading Time Taken Comments Blood Pressure 127/77 12/08/2021 5:48 PM GANG PUNCH OPERATOR Pulse 88 12/24/2023 3:35 PM GANG PUNCH OPERATOR Temperature 37.1 C (98.7 F) 12/24/2023 3:35 PM GANG PUNCH OPERATOR Respiratory Rate 16 12/24/2023 3:35 PM GANG PUNCH OPERATOR Oxygen Saturation 98% 12/24/2023 3:35 PM GANG PUNCH OPERATOR Inhaled Oxygen Concentration - - Weight 69.3 kg (152 lb 11.2 oz) 12/24/2023 3:35 PM GANG PUNCH OPERATOR Height 165.1 cm (5' 5) 12/04/2021 10:1 0 PM GANG PUNCH OPERATOR Body Mass Index 25.41 12/04/2021 10:10 PM GANG PUNCH OPERATOR Plan of Treatment Upcoming Encounters Date Type Department Care Team (Late st Contact Info) Description 12/03/2024 2:15 PM GANG PUNCH OPERATOR Appointment [facility] [place] [address] [place] [phone] Nicole Núñez MD [address] [place] [phone] 12/03/2024 2:45 PM GANG PUNCH OPERATOR Office Visit [facility] M[facility] [address] [place] [phone] Nicole Núñez MD [address] [place] [phone] 12/06/2024 9:30 AM GANG PUNCH OPERATOR Appointment [facility] [place] [address] [place] [phone] Nicole Núñez MD [address] [place] [address] 12/06/2024 10:00 AM GANG PUNCH OPERATOR Office Visit [facility] Maternal Medicine [facility] [address] [place] [phone] Nicole Núñez MD [address] [place] [phone] 12/13/2024 9:30 AM GANG PUNCH OPERATOR Appointment [facility] Maternal Medicine [facility] [address] [place] [phone] Nicole Núñez MD [address] [place] [address] 12/13/2024 10:00 AM GANG PUNCH OPERATOR Office Visit [facility] [place] [address] [place] [phone] Nicole Núñez MD [address] [place] [address] 12/19/2024 9:30 AM GANG PUNCH OPERATOR Appointment [facility] Maternal Medicine [place] [address] [place] [phone] Nicole Núñez MD [address] [facility] [place] [address] 12/19/2024 10:00 AM GANG PUNCH OPERATOR Office Visit [facility] [place] [address] [place] [phone] Nicole Núñez MD [address] [facility] [place] [address] 12/28/2024 10:15 AM GANG PUNCH OPERATOR Appointment [facility] [place] [address] [place] [phone] Yobani Crespo MD [address] [address] 12/28/2024 10:45 AM GANG PUNCH OPERATOR Office Visit [facility] [place] [address] [place] [phone] Yobani Crespo MD [address] [address] 01/11/2025 10:15 AM CDT Appointment [facility] [place] [address] [place] [phone] Yobani Crespo MD [address] [place], [place] [phone] 01/11/2025 10:45 AM CDT Office Visit [facility] Maternal Medicine [facility] [address] [place] [phone] Yobani Crespo MD [address] [place] [address] Health Maintenance Due Date Last Done Comments ADVANCE CARE PLANNING 1994 ANNUAL REVIEW OF HM ORDERS 1994 YEARLY PREVENTIVE VISIT 1997 Pneumococcal Vaccine: Pediatrics (0 to 5 Years) and At-Risk Patients (6 to 49 Years) (1 of 2 - PCV) 2013 PAP 2015 DTAP/TDAP/TD IMMUNIZATION (7 - Td or Tdap) 09/25/2018 09/25/2008, 07/13/1999, 01/02/1996, Additional history exists COVID-19 Vaccine ( season) 2024 INFLUENZA VACCINE (#1) 2024 MATERNAL SCREENING DISCUSSION 09/09/2024 PHQ-2 (once per calendar year) 2024 OBGCT (OB) 12/16/2024 ZOSTER IMMUNIZATION (1 of 2) 2044 HEPATITIS B IMMUNIZATION Completed 995, 02/07/1995, 1994, Additional history exists MENINGITIS IMMUNIZATION Completed 10/07/2011 HIV SCREENING Completed 09/07/2018 HEPATITIS C SCREENING Completed 04/15/2019 HPV IMMUNIZATION Aged Out No longer e ligible based on patient's age to complete this topic RSV MONOCLONAL ANTIBODY Aged Out No l onger eligible based on patient's age to complete this topic RSV VACCINE (No Doses Required) Completed Procedures Procedure Name Priority Date/Time Associated Diagnosis Comments MFM TWINS US COMPREHENSIVE F/U Routine 11/30/2024 3:11 PM GANG PUNCH OPERATOR 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 ECHO COMPLETE Routine 11/30/2024 1 :46 PM GANG PUNCH OPERATOR 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 ECHO COMPLETE Routine 11/30/2024 1 :46 PM GANG PUNCH OPERATOR 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 MFM TWINS US COMPREHENSIVE F/U Routine 11/22/2024 11:09 AM GANG PUNCH OPERATOR 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 MFM TWINS US COMPREHENSIVE Routine 11/14/2024 11:59 AM GANG PUNCH OPERATOR 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 MFM TWINS US COMPREHENSIVE F/U Routine 11/08/2024 10:15 AM GANG PUNCH OPERATOR 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 MFM TWINS US COMPREHENSIVE F/U Routine 11/02/2024 2:26 PM GANG PUNCH OPERATOR 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 MFM TWINS US COMPREHENSIVE F/U Routine 10/26/2024 11:48 AM GANG PUNCH OPERATOR 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 MFM TWINS US OB COMPLETE 2/3 TRI Routine 10/19/2024 1:39 PM GANG PUNCH OPERATOR related condition, antepartum from Last 3 Months Results * MFM Twins US Comprehensive F/U (11/30/2024 3:11 PM GANG PUNCH OPERATOR) Only the most recent of5 resultswithin the time period is included. Anatomical Region Laterality Modality Ultrasound 11/30/2024 2:04 PM GANG PUNCH OPERATOR Impressions 11/30/2024 8:09 PM GANG PUNCH OPERATOR IMPRESSION ----- Monochorionic diamniotic twin gestation [...] wave and reversal. Narrative 11/30/2024 8:09 PM [facility] Surveillance US ----- Pat. Name: DEANDRE LEYVA Study Date: 11/30/2024 2:04pm Pat. NO: [id number] Referring : ZAKIA CUELLAR Site: Produce Service Team Member: Kenyetta Lyons RDMS : 1995 Age: 29 [...] options at this time including referral to [facility] for consideration of laser procedure [...] discussed likely plan for delivery at the [facility]. Return to primary provider for continued care. If you have questions regarding today's evaluation or if we can be of further service, please contact the Maternal[facility] Medicine Center. anomalies may be present but not detected I spent a total of 15 minutes (excluding the ultrasound interpretation) on the date of this encounter including preparing to see the patient (reviewing medical records/tests), in direct vjtn-bg-fugl contact with the patient counseling and discussing the plan of care, documenting the visit in the electronic medical record, and communicating with other health rn complex care and/or care coordination. Procedure Note Nicole Núñez MD - 11/30/2024 Surveillance US ----- Pat. Name: DEANDRE LEYVA Study Date: 11/30/2024 2:04pm Pat. NO: [id number] Referring MD: ZAKIA CUELLAR Site: Produce Service Team Member: Kenyetta Lyons RDMS : 1995 Age: 29 [...] options at this time including referral to [facility] for consideration oflaser procedure to [...] increasing surveillance vs. hospital admissionin [facility] [place]. We also discussed likely plan for delivery [facility]. Return to primary provider for continued care. If you have questions regarding today's evaluation or if we can be offurther service, please contact the Maternal- Medicine Center. anomalies may be present but not detected I spent a total of 15 minutes (excluding the ultrasound interpretation) onthe date of this encounter including preparing to see the patient(reviewing medical records/tests), in direct vjzk-pn-ujij contact with the patient counseling and discussingthe plan of care, documenting the visit in the electronic medical record,and communicating with other health rn complex care and/or care coordination. IMPRESSION ----- Monochorionic [...] A waveand reversal. us Yobani Crespo MD [facility] US ORDERABLES Edited Result - Final * ECHO COMPLETE (11/30/2024 1:46 PM GANG PUNCH OPERATOR) Anatomical Region Laterality Modality Echocardiography 11/30/2024 1:42 PM GANG PUNCH OPERATOR Narrative 11/30/2024 2:07 PM [facility] [id number] [facility] [id number]^ZAK^YOBANI Study ID: [id number] [facility] [address] [address] Echocardiogram Name: DEANDRE LEYVA Study Date: 11/30/2024 01:42 PM Patient Location: [facility] Gender: Female Patient Class: Outpatient : 1995 Age: 29 yrs Ordering Provider: YOBANI CRESPO Referring Provider: YOBANI CRESPO Performed By: Daphney Dao RDCS Reading Physician: Luc Dominguez MD Reason For Study: 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 Data: Number of fetuses: This is a twin gestation. Due date: 04/07/2025. Gestational age: 21w5d. Delivery at: [facility]. Specific Indication: echocardiogram performed for monochorionic diamniotic [...] to the left atrium. There is laminar mhmqu-wa-lacc shunting across the foramen ovale. Atrioventricular valves: [...] Procedure Note Luc Dominguez MD - 11/30/2024 [id number]^ZAK^YOBANI Study ID:[id number] [facility] [address] [address] Echocardiogram Name: DEANDRE LEYVA Study Date: 11/30/2024 01:42 PM Patient Location: [facility] Gender: Female Patient Class:Outpatient : 1995 Age: 29 yrs Ordering Provider: YOBANI CRESPO Referring Provider: YOBANI CRESPO Performed By: Daphney Dao RDCS Reading Physician: Luc Dominguez MD Reason For Study: Monochorionic diamniotic twin gestation in [facility] Data: Number of fetuses: This is a twin gestation. Due date: 04/07/2025. Gestational age: 21w5d. Delivery at: [facility]. Specific Indication: echocardiogram performed formonochorionic diamniotic twins. [...] breech position. [facility] The heart is in left chest. The [...] in to the left atrium. There is wzdytelwmddu-gv-narb shunting across the foramen ovale. Atrioventricular valves: [...] Dominguez MD 11/30/2024 02:07 PM us Yobani Crespo MD [facility] ECHO ORDERABLES Edite d Result - Final * ECHO COMPLETE (11/30/2024 1:46 PM GANG PUNCH OPERATOR) Anatomical Region Laterality Modality Echocardiography 11/30/2024 1:31 PM GANG PUNCH OPERATOR Narrative 11/30/2024 2:02 PM GANG PUNCH OPERATOR [id number] [facility] [id number]^ZAK^YOBANI Study ID: [id number] [facility] [place] [address] Echocardiogram Name: DEANDRE LEYVA Study Date: 11/30/2024 01:31 PM Patient Location: [facility] Gender: Female Patient Class: Outpatient : 1995 Age: 29 yrs Ordering Provider: YOBANI CRESPO Referring Provider: YOBANI CRESPO Performed By: Daphney Dao RDCS Reading Physician: Luc Dominguez MD Reason For Study: 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 Data: Number of fetuses: This is a twin gestation. Due date: 04/07/2025. Gestational age: 21w5d. Delivery at: [facility]. Specific Indication: echocardiogram performed for monochorionic diamniotic [...] to the left atrium. There is laminar pspxi-zq-oskw shunting across the foramen ovale. Atrioventricular valves: [...] Procedure Note Luc Dominguez MD - 11/30/2024 [id number]^ZAK^YOBANI Study ID:[id number] [facility] [address] [place] [address] Echocardiogram Name: DEANDRE LEYVA Study Date: 11/30/2024 01:31 PM Patient Location: [facility] Gender: Female Patient Class:Outpatient : 1995 Age: 29 yrs Ordering Provider: YOBANI CRESPO Referring Provider: YOBANI CRESPO Performed By: Daphney Dao RDCS Reading Physician: Luc Dominguez MD Reason For Study: [facility] Data: Number of fetuses: This is a twin gestation. Due date: 04/07/2025. Gestational age: 21w5d. Delivery at: [facility]. Specific Indication: echocardiogram performed formonochorionic diamniotic twins. [...] in to the left atrium. There is xypxtvuvhbag-jx-nbbn shunting across the foramen ovale. Atrioventricular valves: [...] d Result - Final * MFM Twins US Comprehensive (11/14/2024 11:59 AM GANG PUNCH OPERATOR) Anatomical Region Laterality Modality Ultrasound 11/14/2024 10:2 4 AM GANG PUNCH OPERATOR Impressions 11/14/2024 4:40 PM GANG PUNCH OPERATOR IMPRESSION ----- Monochorionic diamniotic twin gestation [...] anemia polycythemia syndrome. Narrative 11/14/2024 4:40 PM GANG PUNCH OPERATOR Comprehensive ----- Pat. Name: DEANDRE LEYVA Study Date: 11/14/2024 10:24am Pat. NO: [id number] Referring : ZAKIA CUELLAR Site: Produce Service Team Member: Emerita Corona RDMS : 1995 Age: 29 [...] 0 lb 11 oz EFW by Hadlock ([id number]) EFW discordance 30.6 % Head / Face / Neck Biometry: Item Repair Manager 6.9 mm CM 2.6 mm Nasal bone [...] 0 lb 8 oz EFW by Hadlock ([id number]) EFW discordance 30.6 % Head / Face / Neck Biometry: Item Repair Manager 6.8 mm CM 4.4 mm Extremities / [...] view. RVOT view. LVOT view. 3-vessel view. 7-mopjxd-vhgberg view. Situs. Aortic arch view. Bicaval view. [...] Thorax 4-chamber view. RVOT view. LVOT view. 2-vltlkz-kosdxtw view. Aortic arch view. sex: female. Fetus [...] recommendation. She was again offered referral to [facility] for a second opinion/discussion about options in [...] the patient (reviewing medical records/tests), in direct omuu-wa-nyoh contact with the patient counseling and discussing the plan of care, documenting the visit in the electronic medical record, and communicating with other health rn complex care and/or care coordination. Please see note for details. Procedure Note Flower Amato MD - 11/14/2024 Comprehensive ----- Pat. Name: DEANDRE LEYVA Study Date: 11/14/2024 10:24am Pat. NO: [id number] Referring MD: ZAKIA CUELLAR Site: Produce Service Team Member: Emerita Corona RDMS : 1995 Age: 29 [...] EFW (lb,oz) 0 lb 11oz EFW by Hadlock([id number]-[id number]) EFW discordance 30.6% Head / Face / Neck Biometry: Item Repair Manager 6.9mm CM 2.6mm Nasal bone 7.8mm Fetus 2: BIOMETRY ----- BPD 42.9mm 19w 0dHadlock OFD 55.1mm 18w 2dNicolaides HC 156.8mm 18w 4dHadlock Cerebellum tr 18.1mm 18w 0dNicolaides Nuchal fold 3.0mm AC 128.0mm 18w 3d 15%Hadlock Femur 24.5mm 17w 3dHadlock Humerus 23.5mm 17w 2dJeanty Weight Calculation: EFW 219g 2%Hadlock EFW (lb,oz) 0 lb 8oz EFW by Hadlock([id number]) EFW discordance 30.6% Head / Face / Neck Biometry: Item Repair Manager 6.8mm CM 4.4mm Extremities / Bony Struc [...] 4-chamber view. RVOT view. LVOT view.3-vessel view. 5-vvrsuy-ujxwbif view. Situs. Aortic arch view. Bicavalview. Ductal [...] / Thorax 4-chamber view. RVOT view. LVOT view.5-nzrpth-vrtyzfc view. Aortic arch view. sex: female. Fetus [...] the recommendation. She was again offered referralto [facility] for a second opinion/discussion about options in [...] see the patient(reviewing medical records/tests), in direct fzwz-ci-beig contact with the patient counseling and discussingthe plan of care, documenting the visit in the electronic medical record,and communicating with other health rn complex care and/or care coordination. Please see note [...] anemia polycythemia syndrome. us Yobani Crespo MD [facility] US ORDERABLES Edited Result - Final * MFM Twins US OB Complete 2/3 Tri (10/19/2024 1:39 PM GANG PUNCH OPERATOR) Anatomical Region Laterality Modality Ultrasound 10/19/2024 11:0 2 AM GANG PUNCH OPERATOR Impressions 10/21/2024 3:34 PM GANG PUNCH OPERATOR IMPRESSION ----- Monochorionic diamniotic twin gestation [...] long and closed. Narrative 10/21/2024 3:34 PM GANG PUNCH OPERATOR 2nd / 3rd Trim ----- Pat. Name: DEANDRE LEYVA Study Date: 10/19/2024 11:02am Pat. NO: [id number] Referring MD: ZAKIA CUELLAR Site: Produce Service Team Member: Chantell Jarquin RDMS : 1995 Age: 29 [...] 0 lb 5 oz EFW by Hadlock ([id number]) EFW discordance 26.5 % Head / Face / Neck Biometry: Item Repair Manager 6.3 mm CM 2.2 mm Nasal bone [...] 0 lb 4 oz EFW by Hadlock ([id number]) EFW discordance 26.5 % Head / Face / Neck Biometry: Item Repair Manager 6.7 mm CM 2.5 mm Fetus 1: [...] Heart / Thorax 4-chamber view. 3-vessel view. 9-brugpn-vyauiys view. sex: female. Fetus 2: ANATOMY ----- [...] Profile. Nose. Maxilla. Mandible. Heart / Thorax 3-ksexjk-kltnpzh view. Aortic arch view. Bicaval view. Ductal [...] discussed the option a referral to the [facility] to discuss the option of [...] the patient (reviewing medical records/tests), in direct lkrw-yv-xzjv contact with the patient during the visit counseling and discussing the plan of care and documenting the visit in the electronic medical record. Procedure Note Yobani Crespo MD - 10/22/2024 Trim ----- Pat. Name: DEANDRE LEYVA Study Date: 10/19/2024 11:02am Pat. NO: [id number] Referring MD: ZAKIA CUELLAR Site: [employer] Service Team Member: Chantell Jarquin RDMS : 1995 Age: 29 [...] EFW (lb,oz) 0 lb 5oz EFW by Hadlock([id number]) EFW discordance 26.5% Head / Face / Neck Biometry: Item Repair Manager 6.3mm CM 2.2mm Nasal bone 4.1mm Fetus 2: BIOMETRY ----- BPD 31.4mm 15w 6dHadlock OFD 38.8mm -/-Nicolaides HC 112.9mm 15w 3dHadlock Cerebellum tr 15.8mm 15w 6dNicolaides Nuchal fold 2.1mm AC 89.7mm 15w 1d 34%Hadlock Femur 16.0mm 14w 5dHadlock Humerus 16.1mm 14w 4dJeanty Weight Calculation: EFW 113g 9%Hadlock EFW (lb,oz) 0 lb 4oz EFW by Hadlock([id number]-AX-FL) EFW discordance 26.5% Head / Face / Neck Biometry: Item Repair Manager 6.7mm CM 2.5mm Fetus 1: ANATOMY ----- [...] pellucidi. Heart / Thorax 4-chamber view. 3-vessel view.1-htjbto-fvwrmms view. sex: female. Fetus 2: ANATOMY ----- [...] Lips. Profile. Nose. Maxilla.Mandible. Heart / Thorax 5-vcolin-xdemloq view. Aortic archview. Bicaval view. Ductal arch [...] discussed the option a referral to the [facility] todiscuss the option of SLFP [...] see the patient(reviewing medical records/tests), in direct txjf-gg-ntwy contact with the patient during the visitcounseling [...] imaging the cervix appears long and closed. us Zakia Cuellar MD [facility] ORDERABLES Edited Re sult - Final from Last 3 Months Insurance [facility] Care Teams Commercial Decorator Relationship Specialty Start Date End Date No Ref-Primary, Physician PCP - General 12/04/21 Flower Amato MD [address] [place] [address] Assigned OBGYN Provider 11/22/24
--- OUTSIDE RECORDS SUMMARY | 2024-12-01 10:35 | XMS_ITS | Clinical Summary ---
Author Organization [facility] Address [address] [place] [address] Care Team Providers Care Heel Attacher Wood Name Role Phone Arslan Mckoy MD Primary Care Provider Ladonna calderon Source Comments You are receiving this document as you are listed as the primary care provider,follow-up provider, or the patient has been referred to you for consultation.This is in compliance with the Medicare and[facility] EHR Incentive Program,which states Providers who transition their patient to another setting of careor provider of care or refers their patient to another provider of care shouldprovide summary care record for each transition of care or referral. [facility] All[facility] No known active allergies Medications Medication Sig Dispensed Refills Start Date End Date Status Gqxmnfmg-UrHww-ZA-DHA w/o A ( + DHA OR) Active [...] Comments Blood Pressure 117/62 10/05/2018 10:40 AM [facility] Pulse 76 10/05/2018 10:40 AM [facility] Temperature - - Respiratory Rate - - Oxygen Saturation - - Inhaled Oxygen Concentration - - Weight 73.5 kg (162 lb) 10/05/2018 10:40 AM [facility] Height 166.4 cm (5' 5.5) 10/05/2018 10:40 AM CS T Body Mass Index 26.55 10/05/2018 10:40 AM [facility] Plan of Treatment Health Maintenance Due Date [...] AND HIV-1/HIV-2 ANTIBODIES Routine 09/07/2018 12:05 PM [facility] Screening examination for venereal disease CHLAMYDIA & GC, URINE (14 YEARS AND OLDER) Routine 09/07/2018 11:59 AM [facility] Screening examination for venereal disease from Last 3 Months or Most Recently Relevant to Health Maintenance Results * LAB HIV-1 p24 AND HIV-1/HIV-2 ANTIBODIES (09/07/2018 12:05 PM [facility]) HIV-1 p24 Ag and HIV-1/HIV-2 Ab Nonreactive Nonreactive PN SOFT 09/07/2018 12:0 5 PM [facility] 09/07/2018 12:16 PM [facility] Narrative PN SOFT - 09/07/2018 1:26 PM [facility] Performed at [address] [address] CLIA number [id number] Angela Lyons APRN, CNM LAB_1 Performing Organization Address [facility] Co de Phone Number PN [employer] [address] [place] [phone] * CHLAMYDIA & GC, URINE (09/07/2018 11:59 AM [facility]) Pathologist [facility] Urine Chlamydia STD Negative Negative PN SOFT Comment: Test Performed by Flight Physician Mediated Amplification Results obtained from this source are not FDA approved. CLIA Number [id number] Urine N. gonnorrhoeae STD Negative Negative PN SOFT Comment: Test Performed by Flight Physician Mediated Amplification Results obtained from this source are not FDA approved. Performed at [facility], [address] [place] [address] CLIA Number [id number] 09/07/2018 11:5 9 AM [facility] 09/07/2018 12:17 PM [facility] Angela Lyons APRN, CNM LAB_1 Performing Organization Address City/[facility]/ZIP Co de Phone Number [employer] [address] [place] [address] from Last 3 Months or Most Recently Relevant to Health Maintenance Care Teams Heel Attacher Wood Relationship Specialty Start Date End Date Arslan Mckoy MD PCP - General Family Practice 09/09/17
--- OUTSIDE RECORDS SUMMARY | 2024-12-01 10:35 | XMS_ITS | Encounter Summary ---
Author Organization [facility] Address [address] [place] [address] Care Team Providers Care Kiln Door Builder Name Role Phone No Ref-Primary, Physician Primary Care Provider Encounter Details Date Type Department Care Team (Late st Contact Info) Description 10/09/2024 Medical Correspondence [facility] [address] [facility] [address] [place] [address] Scan, Non-Provider Social History Tobacco Use Types Packs/Day Years [...] on file Legal Sex Female 11:44 PM ART OBJECTS SUPERVISOR Gender Identity Not on file Sexual Orientation Not on file documented as of this encounter Plan of Treatment Upcoming Encounters Date Type Department Care Team (Late st Contact Info) Description 12/03/2024 2:15 PM ART OBJECTS SUPERVISOR Appointment [facility] [address] [phone] Nicole Núñez MD [address] [place] [address] [phone] 12/03/2024 2:45 PM ART OBJECTS SUPERVISOR Office Visit [facility] [address] [phone] Nicole Núñez MD [address] [place] [address] 12/06/2024 9:30 AM ART OBJECTS SUPERVISOR Appointment [facility] M[facility] Medicine Center [place] [address] [place] [phone] Nicole Núñez MD [address] [place] [address] 12/06/2024 10:00 AM ART OBJECTS SUPERVISOR Office Visit [facility] [place] [address] [facility] [address] [place] [phone] Nicole Núñez MD [address] [place] [address] 12/13/2024 9:30 AM ART OBJECTS SUPERVISOR Appointment [facility] Maternal Medicine [place] [address] [place] [phone] Nicole Núñez MD [address] [place] [address] 12/13/2024 10:00 AM ART OBJECTS SUPERVISOR Office Visit [facility] [place] [address] [place] [phone] Nicole Núñez MD [address] [place] [address] 12/19/2024 9:30 AM ART OBJECTS SUPERVISOR Appointment [facility] [place] [address] [place] [phone] Nicole Núñez MD [address] [place] [address] 12/19/2024 10:00 AM ART OBJECTS SUPERVISOR Office Visit [facility] Medicine [facility] [address] [place] [phone] Nicole Núñez MD [address] [place] [address] 12/28/2024 10:15 AM ART OBJECTS SUPERVISOR Appointment [facility] Medicine [place] [address] [facility] [address] [place] [phone] Diane Lopez MD [address] [place] [address] 12/28/2024 10:45 AM ART OBJECTS SUPERVISOR Office Visit [facility] [place] [address] [facility] [address] [place] [phone] Diane Lopez MD [address] [place], [place] [phone] 01/11/2025 10:15 AM CDT Appointment [facility] Medicine [place] [address] [facility] [address] [place] [phone] Diane Lopez MD [address] [place] [address] 01/11/2025 10:45 AM CDT Office Visit [facility] [place] [address] [facility] [address] [place] [phone] Diane Lopez MD [address] [place] [address] documented as of this encounter Visit Diagnoses Not on filedocumented in this encounter Care Teams Kiln Door Builder Relationship Specialty Start Date End Date No Ref-Primary, Physician PCP - General 12/04/21 documented as of this encounter
--- OUTSIDE RECORDS SUMMARY | 2024-12-01 10:36 | XMS_ITS | Encounter Summary ---
Author Organization [facility] Address [address] [place] [address] Care Team Providers Care Rn Research Name Role Phone No Ref-Primary, Physician Primary Care Provider Reason for Referral * Diagnostic Imaging Ultrasound (Routine) - Pending Review Specialty Diagnoses / Procedures Referred By Noa lilly Referred To Contact Radiology. Diagnoses Monochorionic diamniotic twin gestation Procedures MFM Twins US Comprehensive F/U Diane Lopez MD [address] [facility] [address] [place] [address] Phone: tel: fax: Referral ID Status Reason Start Date Expiration Date V isits Requested Visits Authorized [id number] Pending Review 10/19/2024 10/19/2025 1 1 ING MACHINE OPERATOR Reason for Visit * Diagnostic Imaging Ultrasound (Routine) - Pending Review Specialty Diagnoses / Procedures Referred By Noa lilly Referred To Contact Radiology. Diagnoses Monochorionic diamniotic twin gestation Procedures MFM Twins US Alivia F/U Diane Lopez MD [address] [place] [address] Phone: tel: fax: Referral ID Status Reason Start Date Expiration Date V isits Requested Visits Authorized [id number] Pending Review 10/19/2024 10/19/2025 1 1 Encounter Details Date Type Department Care Team (Latest Contact Info) Description 11/02/2024 1:22 PM SCORING MACHINE OPERATOR - 11/02/2024 11:59 PM SCORING MACHINE OPERATOR Hospital Encounter [facility] [place] [address] [place] [address] Diane Lopez MD [address] [place], [place] [phone] Flor Dickson MD [address] [place] [address] Monochorionic diamniotic twin gestation in [...] on file Legal Sex Female 11:44 PM SCORING MACHINE OPERATOR Gender Identity Not on file [...] st Contact Info) Description 12/03/2024 2:15 PM SCORING MACHINE OPERATOR Appointment [facility] Maternal Medicine [facility] [address] [place] [phone] Nicole Núñez MD [address] [place] [address] 12/03/2024 2:45 PM SCORING MACHINE OPERATOR Office Visit [facility] Maternal Medicine [facility] [address] [place] [phone] Nicole Núñez MD [address] [place] [address] 12/06/2024 9:30 AM SCORING MACHINE OPERATOR Appointment [facility] Maternal Medicine [facility] [address] [facility] [address] [place] [phone] Nicole Núñez MD [address] [place] [address] 12/06/2024 10:00 AM SCORING MACHINE OPERATOR Office Visit [facility] Maternal Medicine [facility] [address] [place] [phone] Nicole Núñez MD [address] [place] [address] 12/13/2024 9:30 AM SCORING MACHINE OPERATOR Appointment [facility] Maternal Medicine [facility] [address] [facility] [address] [place] [phone] Nicole Núñez MD [address] [place] [address] [place] [address] 12/13/2024 10:00 AM SCORING MACHINE OPERATOR Office Visit [facility] M[facility] Medicine [facility] [place] [address] [place] [phone] Nicole Núñez MD [address] [place] [address] 12/19/2024 9:30 AM SCORING MACHINE OPERATOR Appointment [facility] Maternal Medicine [place] [address] [facility] [address] [place] [phone] Nicole Núñez MD [address] [facility] [place] [address] 12/19/2024 10:00 AM SCORING MACHINE OPERATOR Office Visit [facility] M[facility] Medicine [place] [address] [place] [phone] Nicole Núñez MD [address] [facility] [place] [address] 12/28/2024 10:15 AM SCORING MACHINE OPERATOR Appointment [facility] Maternal Medicine [place] [address] [place] [phone] Diane Lopez MD [address] [address] 12/28/2024 10:45 AM SCORING MACHINE OPERATOR Office Visit [facility] Maternal Medicine [place] [address] [place] [phone] Diane Lopez MD [address] [address] 01/11/2025 10:15 AM CDT Appointment [facility] Maternal Medicine [facility] [address] [place] [address] Diane Lopez MD [address] [place], [place] [address] 01/11/2025 10:45 AM CDT Office Visit [facility] Maternal Medicine [facility] [address] [place] [phone] Diane Lopez MD [address] [place] [address] documented as of this encounter Procedures Procedure Name Priority Date/Time Associated Diagnosis Comments MFM TWINS US COMPREHENSIVE F/U Routine 11/02/2024 2:26 PM SCORING MACHINE OPERATOR 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 documented in this encounter Results * MFM Twins US Comprehensive F/U (11/02/2024 2:26 PM SCORING MACHINE OPERATOR) Anatomical Region Laterality Modality Ultrasound 11/02/2024 1:30 PM SCORING MACHINE OPERATOR Impressions 11/03/2024 10:38 AM SCORING MACHINE OPERATOR IMPRESSION ----- Monochorionic diamniotic twin gestation [...] anemia polycythemia syndrome. Narrative 11/03/2024 10:38 AM [facility] Surveillance US ----- Pat. Name: HEATHER CHÁVEZ Study Date: 11/02/2024 1:30pm Pat. NO: [id number] Referring MD: PAMELA CUELLAR Site: [employer] Practitioner: Pennie Bradley RDMS : 1995 Age: 29 [...] progression to reversed end diastolic flow today. Heather and Los had questions regarding expected outcomes [...] the patient (reviewing medical records/tests), in direct ywvy-he-kdqn contact with the patient during the visit counseling and discussing the plan of care and documenting the visit in the electronic medical record. Procedure Note Flor Dickson MD - 11/03/2024 Surveillance US ----- Pat. Name: HEATHER CHÁVEZ Study Date: 11/02/2024 1:30pm Pat. NO: [id number] Referring MD: PAMELA CUELLAR Site: [employer] Practitioner: Pennie Bradley RDMS : 1995 Age: 29 [...] further progression to reversed end diastolic flow today.Heather and Los had questions regarding expected outcomes [...] see the patient(reviewing medical records/tests), in direct ydjg-gk-mhvn contact with the patient during the visitcounseling [...] anemia polycythemia syndrome. 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
--- OUTSIDE RECORDS SUMMARY | 2024-12-01 10:36 | XMS_ITS | Encounter Summary ---
Author Organization [facility] Address [address] [facility] [place] [address] Care Team Providers Care Gum Worker Name Role Phone No Ref-Primary, Physician Primary Care Provider Reason for Visit * Reason Comments Ultrasound RL2/MCA/UAR/TTTS elizabeth ck-M/D twins, Elevated MCA and AEDF on F2 Encounter Details Date Type Department Care Team (Latest Contact Info) Description 11/02/2024 2:00 PM THREAD GRINDER Office Visit [facility] M[facility] Medicine [facility] [place] [address] [facility] [address] [place] [address] Diane Lopez MD [address] [place] [address] Flor Dickson MD [address] [place] [address] Monochorionic diamniotic twin gestation in [...] on file Legal Sex Female 11:44 PM THREAD GRINDER Gender Identity Not on file Sexual Orientation Not on file documented as of this encounter Progress Notes * Flor Dickson MD - 11/02/2024 2:00 PM CST The patient was seen for [...] Center. Flor Dickson M.D. Maternal -Medicine Specialist AD GRINDER documented in this encounter Nursing Notes * Debra Tran, RN - 11/02/2024 2:00 PM CST Patient presents to [facility] for RL2/MCA/UAR/TTTS check at 17w5d due to M/D twins, Elevated MCA and AEDFon F2. Denies LOF, vaginal bleeding or cramping/contractions. SBAR given to M MD, see their note in Epic. AD GRINDER documented in this encounter Plan of Treatment Upcoming Encounters Date Type Department Care Team (Late st Contact Info) Description 12/03/2024 2:15 PM THREAD GRINDER Appointment [facility] Maternal Medicine [address] [phone] Nicole Núñez MD [address] [place], [place] [address] [place], [place] [phone] 12/03/2024 2:45 PM THREAD GRINDER Office Visit [facility] Medicine [address] [place], [place] [address] Nicole Núñez MD [address] [place] [address] 12/06/2024 9:30 AM THREAD GRINDER Appointment [facility] Maternal Medicine [place] [address] [place] [phone] Nicole Núñez MD [address] [place] [address] 12/06/2024 10:00 AM THREAD GRINDER Office Visit [facility] [place] [address] [place] [phone] Nicole Núñez MD [address] [place] [address] 12/13/2024 9:30 AM THREAD GRINDER Appointment [facility] [place] [address] [place] [phone] Nicole Núñez MD [address] [place] [address] 12/13/2024 10:00 AM THREAD GRINDER Office Visit [facility] [place] [address] [place] [phone] Nicole Núñez MD [address] [place] [address] 12/19/2024 9:30 AM THREAD GRINDER Appointment [facility] [place] [address] [place] [phone] Nicole Núñez MD [address] [place] [address] 12/19/2024 10:00 AM THREAD GRINDER Office Visit [facility]aternal Medicine [place] [address] [place] [phone] Nicole Núñez MD [address] [place] [address] 12/28/2024 10:15 AM THREAD GRINDER Appointment [facility] Maternal Medicine [place] [address] [place] [address] Diane Lopez MD [address] [place] [address] 12/28/2024 10:45 AM THREAD GRINDER Office Visit [facility] Maternal Medicine [place] [address] [place] [phone] Diane Lopez MD [address] [place] [address] 01/11/2025 10:15 AM CDT Appointment [facility] Maternal Medicine [place] [address] [place] [phone] Diane Lopez MD [address] [place] [address] 01/11/2025 10:45 AM CDT Office Visit [facility] Maternal Medicine [place] [address] [place] [phone] Diane Lopez MD [address] [place] [address] documented as of this encounter Visit Diagnoses Diagnosis 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
--- OUTSIDE RECORDS SUMMARY | 2024-12-01 10:36 | XMS_ITS | Encounter Summary ---
Author Organization [place] Address [address] [place] [address] Care Team Providers Care Tire Builder Heavy Service Name Role Phone No Ref-Primary, Physician Primary Care Provider Reason for Visit * Diagnostic Imaging Ultrasound (Routine) - Pending Review Specialty Diagnoses / Procedures Referred By Contac t Referred To Contact Radiology. Diagnoses Monochorionic diamniotic twin gestation Procedures MFM Twins US Comprehensive F/U Diane Lopez MD [address] [place] [address] [address] [place] [address] Phone: tel: fax: Referral ID Status Reason Start Date Expiration Date V isits Requested Visits Authorized [id number] Pending Review 10/19/2024 10/19/2025 1 1 Encounter Details Date Type Department Care Team (Latest Contact Info) Description 10/26/2024 11:00 AM TECHNICAL INTERN Ancillary Procedure [facility] [address] [place] [phone] Estrella Esteban MD [address] [place] [address] [address] [place], [place] [address] 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 Social History Tobacco Use Types Packs/Day Years [...] on file Legal Sex Female 11:44 PM TECHNICAL INTERN Gender Identity Not on file Sexual Orientation Not on file documented as of this encounter Plan of Treatment Upcoming Encounters Date Type Department Care Team (Late st Contact Info) Description 12/03/2024 2:15 PM TECHNICAL INTERN Appointment [facility] [address] [place] [phone] Nicole Núñez MD [address] [place] [address] 12/03/2024 2:45 PM TECHNICAL INTERN Office Visit [facility] [address] [place] [address] Nicole Núñez MD [address] [place] [address] 12/06/2024 9:30 AM TECHNICAL INTERN Appointment [facility] [address] [place] [phone] Nicole Núñez MD [address] [place] [address] 12/06/2024 10:00 AM TECHNICAL INTERN Office Visit [facility] [address] [place] [phone] Nicole Núñez MD [address] [place] [address] 12/13/2024 9:30 AM TECHNICAL INTERN Appointment [facility] [address] [place] [phone] Nicole Núñez MD [address] [place] [address] 12/13/2024 10:00 AM TECHNICAL INTERN Office Visit [facility] [place] [address] [place] [phone] Nicole Núñez MD [address] [place] [address] 12/19/2024 9:30 AM TECHNICAL INTERN Appointment [facility] [place] [address] [place] [phone] Nicole Núñez MD [address] [place] [address] 12/19/2024 10:00 AM TECHNICAL INTERN Office Visit [facility] [place] [address] [place] [phone] Nicole Núñez MD [address] [place] [address] 12/28/2024 10:15 AM TECHNICAL INTERN Appointment [facility] [place] [address] [place] [phone] Diane Lopez MD [address] [address] 12/28/2024 10:45 AM TECHNICAL INTERN Office Visit [facility] [place] [address] [place] [phone] Diane Lopez MD [address] [address] 01/11/2025 10:15 AM CDT Appointment [facility] [address] [place] [address] Diane Lopez MD [address] [place], [place] [address] 01/11/2025 10:45 AM CDT Office Visit [facility] [address] [place] [phone] Diane Lopez MD [address] [place], [place] [phone] documented as of this encounter Procedures Procedure Name Priority Date/Time Associated Diagnosis Comments MFM TWINS US COMPREHENSIVE F/U Routine 10/26/2024 11:48 AM TECHNICAL INTERN 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 Narrative 10/26/2024 1:47 PM TECHNICAL INTERN [facility] US ----- Pat. Name: HEATHER CHÁVEZ Study Date: 10/26/2024 11:05am Pat. NO: [id number] Referring MD: PAMELA CUELLAR Site: Excellence Leader: Drea Varela RDMS : 1995 Age: 29 [...] reviewed the option to consult with the [facility] to discuss the option of SLFP further. At this time, they wish to continue expectant management as they would not consider termination. We also reviewed the possibility of prolonged antepartum admission at the time they are accepting of intervention if the continues to advance. They understand that admission would be recommended at [facility]. We reviewed the difficult decisions that [...] the patient (reviewing medical records/tests), in direct gwif-hv-lgsf contact with the patient during the visit counseling and discussing the plan of care and documenting the visit in the electronic medical record. Procedure Note Estrella Esteban MD - 10/26/2024 [facility] US ----- Pat. Name: HEATHER CHÁVEZ Study Date: 10/26/2024 11:05am Pat. NO: [id number] Referring MD: PAMELA CUELLAR Site: Excellence Leader: Drea Varela RDMS : 1995 Age: 29 [...] reviewed the option to consult with the [facility] to discuss theoption of SLFP further. At this time, they wish to continue expectantmanagement as they would not consider termination. We also reviewed the possibility of prolongedantepartum admission at the time they are accepting of intervention if thepregnancy continues to advance. They understand that admission would be recommended at [facility]. We reviewed the difficult decisions that may [...] see the patient(reviewing medical records/tests), in direct laac-hb-ahbo contact with the patient during the visitcounseling [...] artery Doppler studies demonstrate increased MCAPSV. 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
--- OUTSIDE RECORDS SUMMARY | 2024-12-01 10:36 | XMS_ITS | Encounter Summary ---
Author Organization [place] Address [address] [place] [address]. [place] [address] Care Team Providers Care Receiver Setter Name Role Phone No Ref-Primary, Physician Primary Care Provider Reason for Visit * Reason Comments Ultrasound TTTS, MCA/UAR for mo no/di twins Encounter Details Date Type Department Care Team (Late st Contact Info) Description 10/26/2024 11:30 AM SQL DATA ARCHITECT Office Visit [facility] [address] [phone] Estrella Esteban MD [address] [facility] [address] [place], [place] [phone] 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 [...] on file Legal Sex Female 11:44 PM SQL DATA ARCHITECT Gender Identity Not on file Sexual Orientation Not on file documented as of this encounter Progress Notes * Estrella Esteban MD - 10/26/2024 11:30 AM CST The patient was seen for an ultrasound in the [facility] today. For a detailed report of the ultrasound examination, please see the ultrasound report which can be found under the imaging tab. If you have questions regarding today's evaluation or if we can be of further service, please contact the Maternal- Medicine Center. Estrella Esteban MD Maternal Medicine DATA ARCHITECT documented in this encounter Nursing Notes * Leonor Allen RN - 10/26/2024 11:30 AM CST Heather Chávez is a at 15w5d who presents to [facility] for a TTTS check for mono/di twins. Pt reports positive movement. Pt denies bldg/lof/change in discharge, contractions, headache, visionchanges, chest pain/SOB or edema. SBAR given to Dr. June Esteban, see note in Epic. Leonor Allen RN DATA ARCHITECT documented in this encounter Plan of Treatment Upcoming Encounters Date Type Department Care Team (Late st Contact Info) Description 12/03/2024 2:15 PM SQL DATA ARCHITECT Appointment [facility] Medicine [address] [phone] Nicole Núñez MD [address] [place] [address] 12/03/2024 2:45 PM SQL DATA ARCHITECT Office Visit [facility] [address] [address] Nicole Núñez MD [address] [place] [address] 12/06/2024 9:30 AM SQL DATA ARCHITECT Appointment [facility] [address] [facility] [address] [place] [address] Nicole Núñez MD [address] [place] [address] 12/06/2024 10:00 AM SQL DATA ARCHITECT Office Visit [facility] [place] [address] [place] [phone] Nicole Núñez MD [address] [place] [address] 12/13/2024 9:30 AM SQL DATA ARCHITECT Appointment [facility] [place] [address] [place] [phone] Nicole Núñez MD [address] [place] [address] 12/13/2024 10:00 AM SQL DATA ARCHITECT Office Visit [facility] [place] [address] [place] [phone] Nicole Núñez MD [address] [place] [address] 12/19/2024 9:30 AM SQL DATA ARCHITECT Appointment [facility] [place] [address] [place] [phone] Nicole Núñez MD [address] [place] [address] 12/19/2024 10:00 AM SQL DATA ARCHITECT Office Visit [facility] [place] [address] [place] [phone] Nicole Núñez MD [address] [place] [address] 12/28/2024 10:15 AM SQL DATA ARCHITECT Appointment [facility] [place] [address] [place] [phone] Diane Lopez MD [address] [place] [address] 12/28/2024 10:45 AM SQL DATA ARCHITECT Office Visit [facility] [place] [address] [place] [phone] Diane Lopez MD [address] [place] [address] 01/11/2025 10:15 AM CDT Appointment [facility] [place] [address] [place] [phone] Diane Lopez MD [address] [place] [address] 01/11/2025 10:45 AM CDT Office Visit [facility] [place] [address] [place] [phone] Diane Lopez MD [address] [place] [address] documented as of this encounter Visit Diagnoses Diagnosis 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- Primary growth restriction antepartum documented in this encounter Care Teams Receiver Setter Relationship Specialty Start Date End Date No Ref-Primary, Physician PCP - General 12/04/21 documented as of this encounter
--- OUTSIDE RECORDS SUMMARY | 2024-12-01 10:36 | XMS_ITS | Encounter Summary ---
Author Organization [place] Address [address] [place] [address] Care Team Providers Care Mechanism Assembler Name Role Phone No Ref-Primary, Physician Primary Care Provider Encounter Details Date Type Department Care Team (Latest Contact Info) Description 10/26/2024 Travel Social History Tobacco Use Types Packs/Day [...] on file Legal Sex Female 11:44 PM EXERCISE PHYSIOLOGIST CERTIFIED Gender Identity Not on file Sexual Orientation Not on file documented as of this encounter Plan of Treatment Upcoming Encounters Date Type Department Care Team (Late st Contact Info) Description 12/03/2024 2:15 PM EXERCISE PHYSIOLOGIST CERTIFIED Appointment [facility] [place] [address] [place], [place] [address] [place] [phone] Nicole Núñez MD [address] [place] [address] 12/03/2024 2:45 PM EXERCISE PHYSIOLOGIST CERTIFIED Office Visit [facility] [place] [address] [place] [address] Nicole Núñez MD [address] [place] [address] 12/06/2024 9:30 AM EXERCISE PHYSIOLOGIST CERTIFIED Appointment [facility] [place] [address] [place] [phone] Nicole Núñez MD [address] [place] [address] 12/06/2024 10:00 AM EXERCISE PHYSIOLOGIST CERTIFIED Office Visit [facility] [place] [address] [facility] [address] [place] [phone] Nicole Núñez MD [address] [place] [address] 12/13/2024 9:30 AM EXERCISE PHYSIOLOGIST CERTIFIED Appointment [facility] [place] [address] [place] [phone] Nicole Núñez MD [address] [place] [address] 12/13/2024 10:00 AM EXERCISE PHYSIOLOGIST CERTIFIED Office Visit [facility] [place] [address] [place] [phone] Nicole Núñez MD [address] [place] [address] 12/19/2024 9:30 AM EXERCISE PHYSIOLOGIST CERTIFIED Appointment [facility] [place] [address] [place] [phone] Nicole Núñez MD [address] [place] [address] 12/19/2024 10:00 AM EXERCISE PHYSIOLOGIST CERTIFIED Office Visit [facility] [place] [address] [place] [phone] Nicole Núñez MD [address] [place] [address] 12/28/2024 10:15 AM EXERCISE PHYSIOLOGIST CERTIFIED Appointment [facility] [place] [address] [place] [phone] Diane Lopez MD [address] [place], [place] [address] 12/28/2024 10:45 AM EXERCISE PHYSIOLOGIST CERTIFIED Office Visit [facility] [place] [address] [place] [phone] Diane Lopez MD [address] [place], [place] [address] 01/11/2025 10:15 AM CDT Appointment [facility] [place] [address] [facility] [address] [place] [phone] Diane Lopez MD [address] [place], [place] [address] 01/11/2025 10:45 AM CDT Office Visit [facility] [place] [address] [facility] [address] [place] [phone] Diane Lopez MD [address] [place], [place] [address] documented as of this encounter Visit Diagnoses Not on filedocumented in this encounter Care Teams Mechanism Assembler Relationship Specialty Start Date End Date No Ref-Primary, Physician PCP - General 2/4/22 documented as of this encounter
[2024-12-01 10:43] VITALS: BP 106/74; PULSE 93; RESP 18; TEMP 36.7; O2SAT 100; BMI 26.3
--- NOTE | 2024-12-01 11:02 | ED.PREGNANCY ---
HPI - General Time Seen by Provider: 11:02 Date Seen: 12/01/24 Chief complaint: Shortness of Breath/Dyspnea Stated complaint: 22 weeks shortness of breath Time Seen by Provider: 12/01/24 10:59 Source: patient, RN notes reviewed and old records reviewed Mode of arrival: ambulatory Limitations: no limitations History of Present Illness HPI Narrative: This 29-year-old female is currently 21 and 6 7th weeks with a mono chorionic diamniotic twin gestation with disconcordant growth that has been referred to [facility]. She had an upper respiratory illness go through the house about 2 weeks ago. Everybody had a bad cough, the kids had high fevers, patient herself did not have a fever. They seem to recover from this. Patient did not get influenza vaccine this year. Last week she started having severe episodes where she thought it was esophageal spasm may be associated with reflux. She had spells where she was having back pain, epigastric pain, burning in her chest, pain up in her upper throat. She had couple spells over 2 days. Since that time, she has noted epigastric pain, burning and possible burping with some liquid regurgitant sensation every time she eats. She does have a twin gestation and is trying to eat but is getting this each and every time she eats. She still has her gallbladder. She was seen in the office on November 28 here, thought to have possible GERD developing and was given a prescription for omeprazole. She did not started yet, ended up at appointments all day yesterday with maternal medicine. She also notes that she is becoming progressively more short of breath, definitely noting dyspnea on exertion. She is feeling short of breath with any activity, starting to feel short of breath with just talking. She is still coughing some but no fever. Related Data Home Medications ?Medication ?Instructions ?Recorded ?Confirmed ferrous gluconate 225 mg (27 mg 225 mg PO QDAY 07/16/24 12/01/24 iron) tablet docosahexaenoic acid 200 mg mg PO 08/27/24 11/28/24 capsule ( DHA) Previous Rx's ?Medication ?Instructions ?Recorded omeprazole 20 mg capsule,delayed 20 mg PO QDAY 12 weeks #84 caps 11/28/24 release Allergies Allergy/AdvReac Type Severity Reaction Status Date / Time cat dander Allergy Mild Verified 12/01/24 10:50 seasonal Allergy Uncoded 11/28/24 10:41 Review of Systems Status of ROS: Reports: 10 or more systems reviewed and unremarkable except as noted in History and below [facility] Medical History Heart murmur ?R01.1 - Cardiac murmur, unspecified (ICD-10) Hypothyroidism complicating ?O99.280 - Endocrine, nutritional and metabolic diseases complicating , unspecified trimester (ICD-10) ?E03.9 - Hypothyroidism, unspecified (ICD-10) Asthma ?J45.909 - Unspecified asthma, uncomplicated (ICD-10) Stress incontinence of urine ?N39.3 - Stress incontinence (female) (male) (ICD-10) Low ferritin level ?R79.0 - Abnormal level of blood mineral (ICD-10) Generalized anxiety disorder ?F41.1 - Generalized anxiety disorder (ICD-10) Palpitations ?R00.2 - Palpitations (ICD-10) Precipitate labor, with delivery ?O62.3 - Precipitate labor (ICD-10) Pre-syncope ?R55 - Syncope and collapse (ICD-10) fever ?O86.4 - Pyrexia of unknown origin following delivery (ICD-10) Encounter for genetic screening ?Z13.79 - Encounter for other screening for genetic and chromosomal anomalies (ICD-10) Pharyngitis ?J02.9 - Acute pharyngitis, unspecified (ICD-10) Surgical History History of appendectomy (~12/2021) ?Z90.49 - Acquired absence of other specified parts of digestive tract (ICD-10) Family History Father Diabetes Heart disease Social History What is your current living situation?: I presently have a place to live In the past 12 months, utilities in danger of being shut off: no In past 12 months, lack of transportation kept you from medical appts, meetings, work, or getting things needed for daily living: no In the past 12 mos, have been you worried that your food would run out before you had money to buy more?: never true In the past 12 mos, the food you bought just didn't last and you didn't have money to buy more?: never true Smoking Status: Never smoker Second hand tobacco smoke exposure: No How often do you have a drink containing alcohol: never AUDIT-C Alcohol total score: 0 Non-prescribed substance use: denies use How often does anyone, including family, friends and others, physically hurt you: never How often does anyone, including family, friends and others, insult or talk down to you: never How often does anyone, including family, friends and others, threaten you with harm: never How often does anyone, including family, friends and others, scream or curse at you: never Exam Const: Vital Signs, click to edit/add: Vital Signs - 24 hr 12/01/24 10:43 12/01/24 11:21 12/01/24 12:40 Temperature 98.0 F Pulse Rate 76 Pulse Rate [Pulse Oximeter] 93 Respiratory Rate 18 14 Blood Pressure 104/83 Blood Pressure [Le ft Upper Arm] 106/74 Pulse Oximetry 100 99 95 Oxygen Delivery Me thod Room Air 12/01/24 12:42 Temperature Pulse Rate 65 Pulse Rate [Pulse Oximeter] Respiratory Rate 16 Blood Pressure 104/83 Blood Pressure [Le ft Upper Arm] Pulse Oximetry 100 Oxygen Delivery Me thod Room Air This 29-year-old female is alert, interactive, no apparent stress. Looks mildly pale but sclera clear, conjunctiva normal. When she does speak, she is breathing between phrases, does strike me as dyspneic but not hypoxic. Neck is supple, no adenopathy, no masses, no thyromegaly masses or nodularity. Lungs are clear, no wheezing or crackles, no accessory muscle use. CV regular rate and rhythm, no significant murmur, normal S1-S2. Abdomen is gravid, nontender, no epigastric, no right upper quadrant pain. No lower extremity edema. Documenting provider has reviewed patient's vital signs: yes Course Course ED Course: If did discuss with patient she did sound to have an influenza like illness, there can be complications such as myocarditis, infectious etiology. She is also high risk for thromboembolic disease, need to consider pulmonary emboli. Will do full complement of labs. Did discuss with her outside and GERD, would consider gallbladder issues as well. Will contact Ob and review case but do think we may need to proceed with CT imaging of her chest. Reevaluation(s) Time of Reevaluation #1: 13:27 Reevaluation #1: Have reviewed with patient her workup is reassuring here, give her copies of her chest CT, ultrasound reports. There is no evidence of biliary/gallbladder disease. Will give her 40 mg IV Protonix. We did review on her chest CT that there is some peribronchial thickening which would go with her recent viral illness. Given that she is not having worsening coughing or fevers, would favor just observation, likely represents recent viral illness. She is in agreement. She did order lunch, will give the IV Protonix, allow her to eat and then discharged home. She can start her omeprazole tomorrow. Consultations Consultation #1: Have spoken with breastfeeding program coordinator Dr. Ordoñez. Patient will proceed with chest CT imaging. Will do heart tones via ultrasound on limited OB ultrasound upon discussion. Will also look at patient's gallbladder with limited abdominal ultrasound. Will get full complement of labs including liver panel. If all of these tests are reassuring, no diagnostic testing showing anything outside of suspected GERD, will proceed with having patient start the omeprazole and treat for GERD/peptic ulcer disease per Dr. Ordoñez. Time: 11:16 Vital Signs Vital signs: Initial Vital Signs Temperature 98.0 F 12/01/24 10:43 Temperature Source Temporal Artery Scan 12/01/24 10:43 Pulse Rate 93 12/01/24 10:43 Pulse Rhythm Regular 12/01/24 10:43 Respiratory Rate 18 12/01/24 10:43 Blood Pressure 106/74 12/01/24 10:43 Blood Pressure Mean 84 12/01/24 10:43 Blood Pressure Position Sitting 12/01/24 10:43 Pulse Oximetry 100 12/01/24 10:43 Oxygen Delivery Method Room Air 12/01/24 10:43 Vital Signs Temperature 98.0 F 12/01/24 10:43 Pulse Rate 93 12/01/24 10:43 Respiratory Rate 18 12/01/24 10:43 Blood Pressure 106/74 12/01/24 10:43 Pulse Oximetry 100 12/01/24 10:43 Oxygen Delivery Method Room Air 12/01/24 10:43 Temperature 98.0 F 12/01/24 10:43 Pulse Rate 65 12/01/24 12:42 Respiratory Rate 16 12/01/24 12:42 Blood Pressure 104/83 12/01/24 12:42 Pulse Oximetry 100 12/01/24 12:42 Oxygen Delivery Method Room Air 12/01/24 12:42 MDM - OB/Uterine Contractions Lab Data Attestation: I reviewed the patient's lab results. Labs: Lab Results 12/01/24 12/01/24 12/01/24 Range/Units 10:54 11:40 11:40 WBC 4.77 (4.50-11.00) K/uL RBC 4.48 (4.00-5.20) m/uL Hgb 10.9 L (12.0-16.0) gm/dL Hct 34.8 (33.0-51.0) % MCV 78 L (80-100) fL MCH 24 L (26-34) pg MCHC 31 L (32-36) gm/dL RDW Coeff of Abilio 14.6 (11.5-15.5) % Plt Count 227 (140-440) K/uL Neut % (Auto) 65.2 (42.0-72.0) % Lymph % (Auto) 27.5 (20-44) % [place] % (Auto) 6.5 (0.0-11.0) % Eos % (Auto) 0.2 (0.0-7.0) % Baso % (Auto) 0.4 (0.0-3.0) % Neut # (Auto) 3.11 (1.7-7.0) K/uL Lymph # (Auto) 1.31 (0.90-2.90) K/uL [place] # (Auto) 0.30 (0.00-0.90) K/UL Eos # (Auto) 0.01 (0.00-0.50) K/uL Baso # (Auto) 0.02 (0.00-0.30) K/uL Abs Immat Gran (auto) 0.01 (0.00-0.30) K/uL Imm/Tot Granulo (auto) 0.2 % D-Dimer Quant (PE/DVT) 2.58 H (0.00-0.50) ug/ml VBG pH Cancelled 7.390 VBG pCO2 Cancelled VBG pO2 VBG HCO3 Sodium (135-149) mmol/L Potassium (3.6-5.1) mmol/L Chloride (96-114) mmol/L Carbon Dioxide (20-32) mmol/L Anion Gap (7-15) mEq/L BUN (5-24) mg/dL Creatinine (0.5-1.5) mg/dL Estimated Creat Clear Estimated GFR ml/min Glucose (60-115) mg/dL Lactate (0.5-1.9) mmol/L Calcium (8.4-10.6) mg/dL Magnesium (1.5-2.6) mg/dL Total Bilirubin (0.1-1.5) mg/dL Direct Bilirubin (0.0-0.5) mg/dL AST (12-35) U/L ALT (4-35) U/L Alkaline Phosphatase (40-150) U/L Troponin I (0.01-0.04) ng/mL C-Reactive Protein (0.5-1.0) mg/dL NT-Pro-B Natriuret Pep pg/mL Total Protein (6.0-8.3) g/dL Albumin (3.3-5.0) g/dL Lipase (23-300) U/L SARS-CoV-2 (PCR) Negative SARS-CoV-2 (Negative) Influenza Type A (PCR) Negative PCR FLU A (Negative) Influenza Type B (PCR) Negative PCR FLU B (Negative) RSV (PCR) Negative PCR RSV (Negative) 12/01/24 12/01/24 12/01/24 Range/Units 11:40 11:40 11:40 WBC (4.50-11.00) K/uL RBC (4.00-5.20) m/uL Hgb (12.0-16.0) gm/dL Hct (33.0-51.0) % MCV (80-100) fL MCH (26-34) pg MCHC (32-36) gm/dL RDW Coeff of Abilio (11.5-15.5) % Plt Count (140-440) K/uL Neut % (Auto) (42.0-72.0) % Lymph % (Auto) (20-44) % [place] % (Auto) (0.0-11.0) % Eos % (Auto) (0.0-7.0) % Baso % (Auto) (0.0-3.0) % Neut # (Auto) (1.7-7.0) K/uL Lymph # (Auto) (0.90-2.90) K/uL [place] # (Auto) (0.00-0.90) K/UL Eos # (Auto) (0.00-0.50) K/uL Baso # (Auto) (0.00-0.30) K/uL Abs Immat Gran (auto) (0.00-0.30) K/uL Imm/Tot Granulo (auto) % D-Dimer Quant (PE/DVT) (0.00-0.50) ug/ml VBG pH VBG pCO2 41 VBG pO2 Cancelled 43.6 VBG HCO3 Cancelled 25 Sodium 135 (135-149) mmol/L Potassium (3.6-5.1) mmol/L Chloride (96-114) mmol/L Carbon Dioxide (20-32) mmol/L Anion Gap (7-15) mEq/L BUN (5-24) mg/dL Creatinine (0.5-1.5) mg/dL Estimated Creat Clear Estimated GFR ml/min Glucose (60-115) mg/dL Lactate (0.5-1.9) mmol/L Calcium (8.4-10.6) mg/dL Magnesium (1.5-2.6) mg/dL Total Bilirubin (0.1-1.5) mg/dL Direct Bilirubin (0.0-0.5) mg/dL AST (12-35) U/L ALT (4-35) U/L Alkaline Phosphatase (40-150) U/L Troponin I (0.01-0.04) ng/mL C-Reactive Protein (0.5-1.0) mg/dL NT-Pro-B Natriuret Pep pg/mL Total Protein (6.0-8.3) g/dL Albumin (3.3-5.0) g/dL Lipase (23-300) U/L SARS-CoV-2 (PCR) (Negative) Influenza Type A (PCR) (Negative) Influenza Type B (PCR) (Negative) RSV (PCR) (Negative) 02/11/2412/01/24 12/01/24 Range/Units 11:40 11:40 11:40 WBC (4.50-11.00) K/uL RBC (4.00-5.20) m/uL Hgb (12.0-16.0) gm/dL Hct (33.0-51.0) % MCV (80-100) fL MCH (26-34) pg MCHC (32-36) gm/dL RDW Coeff of Abilio (11.5-15.5) % Plt Count (140-440) K/uL Neut % (Auto) (42.0-72.0) % Lymph % (Auto) (20-44) % [place] % (Auto) (0.0-11.0) % Eos % (Auto) (0.0-7.0) % Baso % (Auto) (0.0-3.0) % Neut # (Auto) (1.7-7.0) K/uL Lymph # (Auto) (0.90-2.90) K/uL [place] # (Auto) (0.00-0.90) K/UL Eos # (Auto) (0.00-0.50) K/uL Baso # (Auto) (0.00-0.30) K/uL Abs Immat Gran (auto) (0.00-0.30) K/uL Imm/Tot Granulo (auto) % D-Dimer Quant (PE/DVT) (0.00-0.50) ug/ml VBG pH VBG pCO2 VBG pO2 VBG HCO3 Sodium Cancelled (135-149) mmol/L Potassium 3.8 Cancelled (3.6-5.1) mmol/L Chloride 103 Cancelled (96-114) mmol/L Carbon Dioxide 24 (20-32) mmol/L Anion Gap (7-15) mEq/L BUN (5-24) mg/dL Creatinine (0.5-1.5) mg/dL Estimated Creat Clear Estimated GFR ml/min Glucose (60-115) mg/dL Lactate (0.5-1.9) mmol/L Calcium (8.4-10.6) mg/dL Magnesium (1.5-2.6) mg/dL Total Bilirubin (0.1-1.5) mg/dL Direct Bilirubin (0.0-0.5) mg/dL AST (12-35) U/L ALT (4-35) U/L Alkaline Phosphatase (40-150) U/L Troponin I (0.01-0.04) ng/mL C-Reactive Protein (0.5-1.0) mg/dL NT-Pro-B Natriuret Pep pg/mL Total Protein (6.0-8.3) g/dL Albumin (3.3-5.0) g/dL Lipase (23-300) U/L SARS-CoV-2 (PCR) (Negative) Influenza Type A (PCR) (Negative) Influenza Type B (PCR) (Negative) RSV (PCR) (Negative) 12/01/24 12/01/24 12/01/24 Range/Units 11:40 11:40 11:40 WBC (4.50-11.00) K/uL RBC (4.00-5.20) m/uL Hgb (12.0-16.0) gm/dL Hct (33.0-51.0) % MCV (80-100) fL MCH (26-34) pg MCHC (32-36) gm/dL RDW Coeff of Abilio (11.5-15.5) % Plt Count (140-440) K/uL Neut % (Auto) (42.0-72.0) % Lymph % (Auto) (20-44) % [place] % (Auto) (0.0-11.0) % Eos % (Auto) (0.0-7.0) % Baso % (Auto) (0.0-3.0) % Neut # (Auto) (1.7-7.0) K/uL Lymph # (Auto) (0.90-2.90) K/uL [place] # (Auto) (0.00-0.90) K/UL Eos # (Auto) (0.00-0.50) K/uL Baso # (Auto) (0.00-0.30) K/uL Abs Immat Gran (auto) (0.00-0.30) K/uL Imm/Tot Granulo (auto) % D-Dimer Quant (PE/DVT) (0.00-0.50) ug/ml VBG pH VBG pCO2 VBG pO2 VBG HCO3 Sodium (135-149) mmol/L Potassium (3.6-5.1) mmol/L Chloride (96-114) mmol/L Carbon Dioxide Cancelled (20-32) mmol/L Anion Gap 8 Cancelled (7-15) mEq/L BUN 10 Cancelled (5-24) mg/dL Creatinine 0.4 L (0.5-1.5) mg/dL Estimated Creat Clear Estimated GFR ml/min Glucose (60-115) mg/dL Lactate (0.5-1.9) mmol/L Calcium (8.4-10.6) mg/dL Magnesium (1.5-2.6) mg/dL Total Bilirubin (0.1-1.5) mg/dL Direct Bilirubin (0.0-0.5) mg/dL AST (12-35) U/L ALT (4-35) U/L Alkaline Phosphatase (40-150) U/L Troponin I (0.01-0.04) ng/mL C-Reactive Protein (0.5-1.0) mg/dL NT-Pro-B Natriuret Pep pg/mL Total Protein (6.0-8.3) g/dL Albumin (3.3-5.0) g/dL Lipase (23-300) U/L SARS-CoV-2 (PCR) (Negative) Influenza Type A (PCR) (Negative) Influenza Type B (PCR) (Negative) RSV (PCR) (Negative) 12/01/24 12/01/24 12/01/24 Range/Units 11:40 11:40 11:40 WBC (4.50-11.00) K/uL RBC (4.00-5.20) m/uL Hgb (12.0-16.0) gm/dL Hct (33.0-51.0) % MCV (80-100) fL MCH (26-34) pg MCHC (32-36) gm/dL RDW Coeff of Abilio (11.5-15.5) % Plt Count (140-440) K/uL Neut % (Auto) (42.0-72.0) % Lymph % (Auto) (20-44) % [place] % (Auto) (0.0-11.0) % Eos % (Auto) (0.0-7.0) % Baso % (Auto) (0.0-3.0) % Neut # (Auto) (1.7-7.0) K/uL Lymph # (Auto) (0.90-2.90) K/uL [place] # (Auto) (0.00-0.90) K/UL Eos # (Auto) (0.00-0.50) K/uL Baso # (Auto) (0.00-0.30) K/uL Abs Immat Gran (auto) (0.00-0.30) K/uL Imm/Tot Granulo (auto) % D-Dimer Quant (PE/DVT) (0.00-0.50) ug/ml VBG pH VBG pCO2 VBG pO2 VBG HCO3 Sodium (135-149) mmol/L Potassium (3.6-5.1) mmol/L Chloride (96-114) mmol/L Carbon Dioxide (20-32) mmol/L Anion Gap (7-15) mEq/L BUN (5-24) mg/dL Creatinine Cancelled (0.5-1.5) mg/dL Estimated Creat Clear 185.05 Cancelled Estimated GFR 136 Cancelled ml/min Glucose 88 (60-115) mg/dL Lactate (0.5-1.9) mmol/L Calcium (8.4-10.6) mg/dL Magnesium (1.5-2.6) mg/dL Total Bilirubin (0.1-1.5) mg/dL Direct Bilirubin (0.0-0.5) mg/dL AST (12-35) U/L ALT (4-35) U/L Alkaline Phosphatase (40-150) U/L Troponin I (0.01-0.04) ng/mL C-Reactive Protein (0.5-1.0) mg/dL NT-Pro-B Natriuret Pep pg/mL Total Protein (6.0-8.3) g/dL Albumin (3.3-5.0) g/dL Lipase (23-300) U/L SARS-CoV-2 (PCR) (Negative) Influenza Type A (PCR) (Negative) Influenza Type B (PCR) (Negative) RSV (PCR) (Negative) 12/01/24 12/01/24 12/01/24 Range/Units 11:40 11:40 11:40 WBC (4.50-11.00) K/uL RBC (4.00-5.20) m/uL Hgb (12.0-16.0) gm/dL Hct (33.0-51.0) % MCV (80-100) fL MCH (26-34) pg MCHC (32-36) gm/dL RDW Coeff of Abilio (11.5-15.5) % Plt Count (140-440) K/uL Neut % (Auto) (42.0-72.0) % Lymph % (Auto) (20-44) % [place] % (Auto) (0.0-11.0) % Eos % (Auto) (0.0-7.0) % Baso % (Auto) (0.0-3.0) % Neut # (Auto) (1.7-7.0) K/uL Lymph # (Auto) (0.90-2.90) K/uL [place] # (Auto) (0.00-0.90) K/UL Eos # (Auto) (0.00-0.50) K/uL Baso # (Auto) (0.00-0.30) K/uL Abs Immat Gran (auto) (0.00-0.30) K/uL Imm/Tot Granulo (auto) % D-Dimer Quant (PE/DVT) (0.00-0.50) ug/ml VBG pH VBG pCO2 VBG pO2 VBG HCO3 Sodium (135-149) mmol/L Potassium (3.6-5.1) mmol/L Chloride (96-114) mmol/L Carbon Dioxide (20-32) mmol/L Anion Gap (7-15) mEq/L BUN (5-24) mg/dL Creatinine (0.5-1.5) mg/dL Estimated Creat Clear Estimated GFR ml/min Glucose Cancelled (60-115) mg/dL Lactate 0.9 (0.5-1.9) mmol/L Calcium 8.9 Cancelled (8.4-10.6) mg/dL Magnesium 1.9 Cancelled (1.5-2.6) mg/dL Total Bilirubin 0.3 (0.1-1.5) mg/dL Direct Bilirubin (0.0-0.5) mg/dL AST (12-35) U/L ALT (4-35) U/L Alkaline Phosphatase (40-150) U/L Troponin I (0.01-0.04) ng/mL C-Reactive Protein (0.5-1.0) mg/dL NT-Pro-B Natriuret Pep pg/mL Total Protein (6.0-8.3) g/dL Albumin (3.3-5.0) g/dL Lipase (23-300) U/L SARS-CoV-2 (PCR) (Negative) Influenza Type A (PCR) (Negative) Influenza Type B (PCR) (Negative) RSV (PCR) (Negative) 12/01/24 12/01/24 12/01/24 Range/Units 11:40 11:40 11:40 WBC (4.50-11.00) K/uL RBC (4.00-5.20) m/uL Hgb (12.0-16.0) gm/dL Hct (33.0-51.0) % MCV (80-100) fL MCH (26-34) pg MCHC (32-36) gm/dL RDW Coeff of Abilio (11.5-15.5) % Plt Count (140-440) K/uL Neut % (Auto) (42.0-72.0) % Lymph % (Auto) (20-44) % [place] % (Auto) (0.0-11.0) % Eos % (Auto) (0.0-7.0) % Baso % (Auto) (0.0-3.0) % Neut # (Auto) (1.7-7.0) K/uL Lymph # (Auto) (0.90-2.90) K/uL [place] # (Auto) (0.00-0.90) K/UL Eos # (Auto) (0.00-0.50) K/uL Baso # (Auto) (0.00-0.30) K/uL Abs Immat Gran (auto) (0.00-0.30) K/uL Imm/Tot Granulo (auto) % D-Dimer Quant (PE/DVT) (0.00-0.50) ug/ml VBG pH VBG pCO2 VBG pO2 VBG HCO3 Sodium (135-149) mmol/L Potassium (3.6-5.1) mmol/L Chloride (96-114) mmol/L Carbon Dioxide (20-32) mmol/L Anion Gap (7-15) mEq/L BUN (5-24) mg/dL Creatinine (0.5-1.5) mg/dL Estimated Creat Clear Estimated GFR ml/min Glucose (60-115) mg/dL Lactate (0.5-1.9) mmol/L Calcium (8.4-10.6) mg/dL Magnesium (1.5-2.6) mg/dL Total Bilirubin Cancelled (0.1-1.5) mg/dL Direct Bilirubin 0.1 (0.0-0.5) mg/dL AST 27 Cancelled (12-35) U/L ALT 26 Cancelled (4-35) U/L Alkaline Phosphatase 79 (40-150) U/L Troponin I (0.01-0.04) ng/mL C-Reactive Protein (0.5-1.0) mg/dL NT-Pro-B Natriuret Pep pg/mL Total Protein (6.0-8.3) g/dL Albumin (3.3-5.0) g/dL Lipase (23-300) U/L SARS-CoV-2 (PCR) (Negative) Influenza Type A (PCR) (Negative) Influenza Type B (PCR) (Negative) RSV (PCR) (Negative) 12/01/24 12/01/24 12/01/24 Range/Units 11:40 11:40 11:40 WBC (4.50-11.00) K/uL RBC (4.00-5.20) m/uL Hgb (12.0-16.0) gm/dL Hct (33.0-51.0) % MCV (80-100) fL MCH (26-34) pg MCHC (32-36) gm/dL RDW Coeff of Abilio (11.5-15.5) % Plt Count (140-440) K/uL Neut % (Auto) (42.0-72.0) % Lymph % (Auto) (20-44) % [place] % (Auto) (0.0-11.0) % Eos % (Auto) (0.0-7.0) % Baso % (Auto) (0.0-3.0) % Neut # (Auto) (1.7-7.0) K/uL Lymph # (Auto) (0.90-2.90) K/uL [place] # (Auto) (0.00-0.90) K/UL Eos # (Auto) (0.00-0.50) K/uL Baso # (Auto) (0.00-0.30) K/uL Abs Immat Gran (auto) (0.00-0.30) K/uL Imm/Tot Granulo (auto) % D-Dimer Quant (PE/DVT) (0.00-0.50) ug/ml VBG pH VBG pCO2 VBG pO2 VBG HCO3 Sodium (135-149) mmol/L Potassium (3.6-5.1) mmol/L Chloride (96-114) mmol/L Carbon Dioxide (20-32) mmol/L Anion Gap (7-15) mEq/L BUN (5-24) mg/dL Creatinine (0.5-1.5) mg/dL Estimated Creat Clear Estimated GFR ml/min Glucose (60-115) mg/dL Lactate (0.5-1.9) mmol/L Calcium (8.4-10.6) mg/dL Magnesium (1.5-2.6) mg/dL Total Bilirubin (0.1-1.5) mg/dL Direct Bilirubin (0.0-0.5) mg/dL AST (12-35) U/L ALT (4-35) U/L Alkaline Phosphatase Cancelled (40-150) U/L Troponin I < 0.01 L Cancelled (0.01-0.04) ng/mL C-Reactive Protein < 0.5 L (0.5-1.0) mg/dL NT-Pro-B Natriuret Pep < 20 Cancelled pg/mL Total Protein 7.0 (6.0-8.3) g/dL Albumin (3.3-5.0) g/dL Lipase (23-300) U/L SARS-CoV-2 (PCR) (Negative) Influenza Type A (PCR) (Negative) Influenza Type B (PCR) (Negative) RSV (PCR) (Negative) 12/01/24 12/01/24 12/01/24 Range/Units 11:40 11:40 11:40 WBC (4.50-11.00) K/uL RBC (4.00-5.20) m/uL Hgb (12.0-16.0) gm/dL Hct (33.0-51.0) % MCV (80-100) fL MCH (26-34) pg MCHC (32-36) gm/dL RDW Coeff of Abilio (11.5-15.5) % Plt Count (140-440) K/uL Neut % (Auto) (42.0-72.0) % Lymph % (Auto) (20-44) % [place] % (Auto) (0.0-11.0) % Eos % (Auto) (0.0-7.0) % Baso % (Auto) (0.0-3.0) % Neut # (Auto) (1.7-7.0) K/uL Lymph # (Auto) (0.90-2.90) K/uL [place] # (Auto) (0.00-0.90) K/UL Eos # (Auto) (0.00-0.50) K/uL Baso # (Auto) (0.00-0.30) K/uL Abs Immat Gran (auto) (0.00-0.30) K/uL Imm/Tot Granulo (auto) % D-Dimer Quant (PE/DVT) (0.00-0.50) ug/ml VBG pH VBG pCO2 VBG pO2 VBG HCO3 Sodium (135-149) mmol/L Potassium (3.6-5.1) mmol/L Chloride (96-114) mmol/L Carbon Dioxide (20-32) mmol/L Anion Gap (7-15) mEq/L BUN (5-24) mg/dL Creatinine (0.5-1.5) mg/dL Estimated Creat Clear Estimated GFR ml/min Glucose (60-115) mg/dL Lactate (0.5-1.9) mmol/L Calcium (8.4-10.6) mg/dL Magnesium (1.5-2.6) mg/dL Total Bilirubin (0.1-1.5) mg/dL Direct Bilirubin (0.0-0.5) mg/dL AST (12-35) U/L ALT (4-35) U/L Alkaline Phosphatase (40-150) U/L Troponin I (0.01-0.04) ng/mL C-Reactive Protein (0.5-1.0) mg/dL NT-Pro-B Natriuret Pep pg/mL Total Protein Cancelled (6.0-8.3) g/dL Albumin 3.8 Cancelled (3.3-5.0) g/dL Lipase 97 Cancelled (23-300) U/L SARS-CoV-2 (PCR) (Negative) Influenza Type A (PCR) (Negative) Influenza Type B (PCR) (Negative) RSV (PCR) (Negative) Imaging Data CT scan - chest: Attestation: I have reviewed the pertinent imaging results. Radiologist's impression: Patient: DEANDRE LEYVA Facility:?[facility] Patient ID:?[id number] Site Patient ID:?[id number]. Site :?1995 Study:?CT-Chest Angio W/ 95CC ISOVUE-370 PE PROTOCOL-12/01/2024 12:24:18 PM Ordering Physician:?Sindi Tinsley Final Report: INDICATION: Dyspnea. Chest pain. TECHNIQUE: Multiplanar CT pulmonary angiogram was performed after the administration of 95 mL of Isovue 370 intravenous contrast. COMPARISON: CT chest 02/17/2021. FINDINGS: Lower neck: The visualized thyroid is unremarkable. Cardiovascular: Contrast opacification of the pulmonary arterial tree is adequate. Heart size is normal. Thoracic aorta and pulmonary artery are normal in caliber. No significant atherosclerotic calcifications of the aortic arch. No significant coronary arterial calcifications. No pulmonary embolus. Mediastinum and lymph nodes: Unremarkable. No pathologic mediastinal or hilar lymphadenopathy by size criteria. Lungs: No focal consolidation. Dependent atelectasis. Linear bandlike opacification of the lung bases bilaterally, likely subsegmental atelectasis and/or scarring. Airways: Trachea remains patent and midline. Mild diffuse peribronchial wall thickening. Pleura: No pleural effusions or pneumothorax Chest wall: Unremarkable. Bones: No acute osseous abnormalities. Upper abdomen: No acute findings upper abdomen. No reflux of contrast material into the IVC. IMPRESSION: 1. No pulmonary embolus. No CT evidence of right heart strain. 2. No acute intrathoracic pathology. Please note that all CT scans at this facility use dose modulation, iterative reconstruction, and/or weight-based dosing when appropriate to reduce radiation dose to as low as reasonably achievable. Dictated by Omer Kunz MD @ 12/01/2024 12:51:20 PM (Electronic Signature) US - abdomen: Attestation: I have reviewed the pertinent imaging results. Radiologist's impression: Patient: DEANDRE LEYVA Facility:?[facility] Patient ID:?[id number] Site Patient ID:?[id number]. Site :?1995 Study:?US-Abdomen Gallbladder limited-12/01/2024 12:13:55 PM Ordering Physician:?Sindi Tinsley Final Report: CLINICAL HISTORY: Pain Findings: The gallbladder is of normal size and there is no evidence of intraluminal stones or sludge. The gallbladder wall measures 2 mm in thickness. The common bile duct is of normal size and measures 3 mm in diameter at the level of the carito hepatis. IMPRESSION: Unremarkable exam. Dictated by Harmony Fontenot MD @ 12/01/2024 12:34:18 PM (Electronic Signature) OB limited US: Attestation: I have reviewed the pertinent imaging results. Radiologist's impression: Patient: DEANDRE LEYVA Facility:?[facility] Patient ID:?[id number] Site Patient ID:?[id number]. Site :?1995 Study:?US-OB Pelvis TWIN LIMITED-12/01/2024 12:22:18 PM Ordering Physician:?Sindi Tinsley Final Report: INDICATION: Monochorionic diamniotic twins. heart tones. TECHNIQUE: Limited transabdominal OB pelvic ultrasound. COMPARISON: 08/27/2024. FINDINGS: Twin A: Breech. Single deepest pocket of amniotic fluid is 5.4 cm. heart rate of 142 beats per minute. Twin B: Breech. Single deepest pocket of amniotic fluid is 6.4 cm. heart rate is 147 beats per minute. Anterior placenta is otherwise unremarkable in appearance. Closed cervical length is 3.7 cm. IMPRESSION: Living twin . Dictated by Zhang Victoria MD @ 12/01/2024 12:56:28 PM Dictated by: Zhang Victoria MD @ 12/01/2024 12:56:35 (Electronic Signature) ECG Data Attestation: I personally reviewed and interpreted this ECG as follows: (Normal sinus rhythm with sinus arrhythmia, 66 beats per minute. No concerning change for ischemia or infarct.) ECG interpretation date: 12/01/24 ECG interpretation time: 13:07 Discharge Plan Discharge Clinical Impression: Increasing shortness of breath, GERD (gastroesophageal reflux disease) Patient Disposition: Home, Self-Care Condition: Stable Instructions: GERD (Gastroesophageal Reflux Disease) (ED) Additional Instructions: The shortness of breath could be multifactorial with the progression of , can also have symptoms from GERD. You were given Protonix here in the ER today, do recommend starting your omeprazole tomorrow and take daily. Recommend following up with Ob or maternal medicine as planned. If you are having increasing symptoms, the omeprazole is not helping within a couple weeks of taking, do recommend recheck. If your cough is worsening, develops fever with cough or increasing productive cough, would potentially consider antibiotics. CT did show some changes that were consistent with your recent viral upper respiratory infection. Do not think antibiotics are indicated at this time but if you had worsening of symptoms, certainly would reconsider this. Activity Level: Activity as Tolerated Prescriptions: No Action DHA 200 mg capsule PO omeprazole 20 mg capsule,delayed release(DR/EC) 20 mg PO QDAY 84 Days Qty: 84 0RF ferrous gluconate 225 mg (27 mg iron) tablet 225 mg PO QDAY Follow Up/Referrals: Provider,Not a Local [Non-Staff] - Stand Alone Forms: [employer] Info Instructions
[2024-12-01 11:21] VITALS: BP 104/83; PULSE 76; RESP 14; O2SAT 99
--- NOTE | 2024-12-01 11:21 | CRLHL7_ITS ---
For Patients: As a result of the Century Cures Act, medical imaging exams and procedure reports are released immediately into your electronic medical record. You may view this report before your referring provider. If you have questions, please contact your health care provider. CLINICAL HISTORY: Pain Findings: The gallbladder is of normal size and there is no evidence of intraluminal stones or sludge. The gallbladder wall measures 2 mm in thickness. The common bile duct is of normal size and measures 3 mm in diameter at the level of the carito hepatis. IMPRESSION: Unremarkable exam. Dictated by Harmony Fontenot MD @ 12/01/2024 12:34:18 PM (Electronically Signed)
--- NOTE | 2024-12-01 11:21 | CRLHL7_ITS ---
For Patients: As a result of the Century Cures Act, medical imaging exams and procedure reports are released immediately into your electronic medical record. You may view this report before your referring provider. If you have questions, please contact your health care provider. INDICATION: Dyspnea. Chest pain. TECHNIQUE: Multiplanar CT pulmonary angiogram was performed after the administration of 95 mL of Isovue 370 intravenous contrast. COMPARISON: CT chest 02/17/2021. FINDINGS: Lower neck: The visualized thyroid is unremarkable. Cardiovascular: Contrast opacification of the pulmonary arterial tree is adequate. Heart size is normal. Thoracic aorta and pulmonary artery are normal in caliber. No significant atherosclerotic calcifications of the aortic arch. No significant coronary arterial calcifications. No pulmonary embolus. Mediastinum and lymph nodes: Unremarkable. No pathologic mediastinal or hilar lymphadenopathy by size criteria. Lungs: No focal consolidation. Dependent atelectasis. Linear bandlike opacification of the lung bases bilaterally, likely subsegmental atelectasis and/or scarring. Airways: Trachea remains patent and midline. Mild diffuse peribronchial wall thickening. Pleura: No pleural effusions or pneumothorax Chest wall: Unremarkable. Bones: No acute osseous abnormalities. Upper abdomen: No acute findings upper abdomen. No reflux of contrast material into the IVC. IMPRESSION: 1. No pulmonary embolus. No CT evidence of right heart strain. 2. No acute intrathoracic pathology. Please note that all CT scans at this facility use dose modulation, iterative reconstruction, and/or weight-based dosing when appropriate to reduce radiation dose to as low as reasonably achievable. Dictated by Omer Kunz MD @ 12/01/2024 12:51:20 PM (Electronically Signed)
--- NOTE | 2024-12-01 11:21 | CRLHL7_ITS ---
For Patients: As a result of the Century Cures Act, medical imaging exams and procedure reports are released immediately into your electronic medical record. You may view this report before your referring provider. If you have questions, please contact your health care provider. INDICATION: Monochorionic diamniotic twins. heart tones. TECHNIQUE: Limited transabdominal OB pelvic ultrasound. COMPARISON: 08/27/2024. FINDINGS: Twin A: Breech. Single deepest pocket of amniotic fluid is 5.4 cm. heart rate of 142 beats per minute. Twin B: Breech. Single deepest pocket of amniotic fluid is 6.4 cm. heart rate is 147 beats per minute. Anterior placenta is otherwise unremarkable in appearance. Closed cervical length is 3.7 cm. IMPRESSION: Living twin . Dictated by Zhang Victoria MD @ 12/01/2024 12:56:28 PM Dictated by: Zhang Victoria MD @ 12/01/2024 12:56:35 (Electronically Signed)
--- OUTSIDE RECORDS SUMMARY | 2024-12-01 11:23 | XMS_ITS | Encounter Summary ---
Author Organization [facility] Address [address] [place] [address] Care Team Providers Care Major Assembly Inspector Name Role Phone No Ref-Primary, Physician Primary Care Provider Reason for Referral * Diagnostic Imaging Ultrasound (Routine) - Pending Review Specialty Diagnoses / Procedures Referred By Johnsonac maxx Referred To Contact Radiology. Diagnoses Monochorionic diamniotic twin gestation Procedures MFM Twins Diane Montez MD [address] [place] [address] Phone: tel: fax: Referral ID Status Reason Start Date Expiration Date V isits Requested Visits Authorized [id number] Pending Review 10/19/2024 10/19/2025 1 1 ON SAWYER Reason for Visit * Diagnostic Imaging Ultrasound (Routine) - Pending Review Specialty Diagnoses / Procedures Referred By Noa lilly Referred To Contact Radiology. Diagnoses Monochorionic diamniotic twin gestation Procedures MFM Twins Dinae Montez MD [address] [place] [address] Phone: tel: fax: Referral ID Status Reason Start Date Expiration Date V isits Requested Visits Authorized [id number] Pending Review 10/19/2024 10/19/2025 1 1 Encounter Details Date Type Department Care Team (Latest Contact Info) Description 11/14/2024 10:09 AM BUTTON SAWYER - 11/14/2024 11:59 PM BUTTON SAWYER Hospital Encounter [facility] [place] [address] [place] [address] Flower Amato MD [address] [facility] [address] [place] [address] 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 [...] on file Legal Sex Female 11:44 PM BUTTON SAWYER Gender Identity Not on file Sexual Orientation [...] st Contact Info) Description 12/03/2024 2:15 PM BUTTON SAWYER Appointment [facility] [place] [address] [place] [phone] Nicole Núñez MD [address] [place] [address] 12/03/2024 2:45 PM BUTTON SAWYER Office Visit [facility] [address] [place] [address] Nicole Núñez MD [address] [place] [address] 12/06/2024 9:30 AM BUTTON SAWYER Appointment [facility] [address] [place] [phone] Nicole Núñez MD [address] [place] [address] 12/06/2024 10:00 AM BUTTON SAWYER Office Visit [facility] [address] [place] [phone] Nicole Núñez MD [address] [place] [address] 12/13/2024 9:30 AM BUTTON SAWYER Appointment [facility] [address] [place] [phone] Nicole Núñez MD [address] [place] [address] 12/13/2024 10:00 AM BUTTON SAWYER Office Visit [facility] [place] [address] [place] [phone] Nicole Núñez MD [address] [place] [address] 12/19/2024 9:30 AM BUTTON SAWYER Appointment [facility] [place] [address] [place] [phone] Nicole Núñez MD [address] [place] [address] 12/19/2024 10:00 AM BUTTON SAWYER Office Visit [facility] [place] [address] [place] [phone] Nicole Núñez MD [address] [place] [address] 12/28/2024 10:15 AM BUTTON SAWYER Appointment [facility] [place] [address] [place] [phone] Diane Lopez MD [address] [address] 12/28/2024 10:45 AM BUTTON SAWYER Office Visit [facility] [place] [address] [place] [phone] Diane Lopez MD [address] [place] [address] 01/11/2025 10:15 AM CDT Appointment [facility] [place] [address] [place] [phone] Diane Lopez MD [address] [place] [address] 01/11/2025 10:45 AM CDT Office Visit [facility] [place] [address] [facility] [address] [place] [address] Diane Lopez MD [address] [place], [place] [phone] documented as of this encounter Procedures Procedure Name Priority Date/Time Associated Diagnosis Comments MFM TWINS US COMPREHENSIVE Routine 11/14/2024 11:59 AM BUTTON SAWYER 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 documented in this encounter Results * MFM Twins US Comprehensive (11/14/2024 11:59 AM BUTTON SAWYER) Anatomical Region Laterality Modality Ultrasound 11/14/2024 10:2 4 AM BUTTON SAWYER Impressions 11/14/2024 4:40 PM BUTTON SAWYER IMPRESSION ----- Monochorionic diamniotic twin gestation at [...] anemia polycythemia syndrome. Narrative 11/14/2024 4:40 PM BUTTON SAWYER Comprehensive ----- Pat. Name: HEATHER CHÁVEZ Study Date: 11/14/2024 10:24am Pat. NO: [id number] Referring MD: PAMELA CUELLAR Site: [employer]idential [employer] Heat Technician: Emerita Corona RDMS : 1995 Age: 29 [...] 0 lb 11 oz EFW by Hadlock ([id number]) EFW discordance 30.6 % Head / Face / Neck Biometry: Assistant Loan Processor 6.9 mm CM 2.6 mm Nasal bone [...] 0 lb 8 oz EFW by Hadlock ([id number]) EFW discordance 30.6 % Head / Face / Neck Biometry: Assistant Loan Processor 6.8 mm CM 4.4 mm Extremities / [...] view. RVOT view. LVOT view. 3-vessel view. 1-nqtcbb-jhxxvhy view. Situs. Aortic arch view. Bicaval view. [...] Thorax 4-chamber view. RVOT view. LVOT view. 4-ollsgs-vxhmiix view. Aortic arch view. sex: female. Fetus [...] recommendation. She was again offered referral to [facility] for a second opinion/discussion about [...] the patient (reviewing medical records/tests), in direct rwzd-xi-aeww contact with the patient counseling and discussing the plan of care, documenting the visit in the electronic medical record, and communicating with other health field care manager and/or care coordination. Please see note for details. Procedure Note Flower Amato MD - 11/14/2024 Comprehensive ----- Pat. Name: HEATHER CHÁVEZ Study Date: 11/14/2024 10:24am Pat. NO: [id number] Referring MD: PAMELA CUELLAR Site: Residential [employer] Heat Technician: Emerita Corona RDMS : 1995 Age: 29 [...] EFW (lb,oz) 0 lb 11oz EFW by Hadlock([id number]) EFW discordance 30.6% Head / Face / Neck Biometry: Assistant Loan Processor 6.9mm CM 2.6mm Nasal bone 7.8mm Fetus 2: BIOMETRY ----- BPD 42.9mm 19w 0dHadlock OFD 55.1mm 18w 2dNicolaides HC 156.8mm 18w 4dHadlock Cerebellum tr 18.1mm 18w 0dNicolaides Nuchal fold 3.0mm AC 128.0mm 18w 3d 15%Hadlock Femur 24.5mm 17w 3dHadlock Humerus 23.5mm 17w 2dJeanty Weight Calculation: EFW 219g 2%Hadlock EFW (lb,oz) 0 lb 8oz EFW by Hadlock([id number]) EFW discordance 30.6% Head / Face / Neck Biometry: Assistant Loan Processor 6.8mm CM 4.4mm Extremities / Bony Struc [...] 4-chamber view. RVOT view. LVOT view.3-vessel view. 1-lqbuxg-ydzbkgq view. Situs. Aortic arch view. Bicavalview. Ductal [...] / Thorax 4-chamber view. RVOT view. LVOT view.1-opurrc-nbewlfz view. Aortic arch view. sex: female. Fetus [...] the recommendation. She was again offered referralto [facility] for a second opinion/discussion about options in [...] see the patient(reviewing medical records/tests), in direct pxwf-rz-vgjr contact with the patient counseling and discussingthe plan of care, documenting the visit in the electronic medical record,and communicating with other health field care manager and/or care coordination. Please see note for [...] anemia polycythemia syndrome. us Diane Lopez MD [facility] ORDERABLES Edited Result - Final documented in this encounter Visit Diagnoses Diagnosis 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 documented in this encounter Care Teams Major Assembly Inspector Relationship Specialty Start Date End Date No Ref-Primary, Physician PCP - General 12/04/21 documented as of this encounter
--- OUTSIDE RECORDS SUMMARY | 2024-12-01 11:23 | XMS_ITS | Encounter Summary ---
Author Organization [facility] Address [address] [facility] [place] [address] Care Team Providers Care Customer Service Security Officer Name Role Phone No Ref-Primary, Physician Primary Care Provider Reason for Referral * Diagnostic Imaging Ultrasound (Routine) - Pending Review Specialty Diagnoses / Procedures Referred By Contac t Referred To Contact Radiology. 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 Procedures MFM Twins US Comprehensive F/U Flower Amato MD [address] [place] [address] Phone: tel: fax: Referral ID Status Reason Start Date Expiration Date V isits Requested Visits Authorized [id number] Pending Review 11/14/2024 11/14/2025 1 1 RNATIONAL GUEST COORDINATOR Reason for Visit * Reason Comments Ultrasound L2-mono/di twins Encounter Details Date Type Department Care Team (Latest Contact Info) Description 11/14/2024 11:30 AM INTERNATIONAL GUEST COORDINATOR Office Visit [facility] [place] [address] [place] [address] Flower Amato MD [address] [place] [address] Monochorionic diamniotic twin gestation in [...] on file Legal Sex Female 11:44 PM INTERNATIONAL GUEST COORDINATOR Gender Identity Not on file Sexual Orientation Not on file documented as of this encounter Progress Notes * Flower Amato MD - 11/14/2024 11:30 AM CST The patient was seen for an ultrasound in the Maternal- Medicine Center at the [facility] today. For a detailed report of the ultrasound examination, please see the ultrasound report which can be found under the imaging tab. If you have questions regarding today's evaluation or if we can be of further service, please contact the Maternal- Medicine Center. Flower Amato MD [employer], SORT MANAGER Maternal- Medicine [phone] (Pager) RNATIONAL GUEST COORDINATOR documented in this encounter Nursing Notes * April Baker RN - 11/14/2024 11:30 AM CST Patient reports positive movement, denies contractions, leaking of fluid, or bleeding. SBAR given to [facility], see their note in Epic. RNATIONAL GUEST COORDINATOR documented in this encounter Plan of Treatment Upcoming Encounters Date Type Department Care Team (Late st Contact Info) Description 12/03/2024 2:15 PM INTERNATIONAL GUEST COORDINATOR Appointment [facility] [place] [address] [place] [phone] Nicole Núñez MD [address] [place] [address] 12/03/2024 2:45 PM INTERNATIONAL GUEST COORDINATOR Office Visit [facility] [address] [place] [address] Nicole Núñez MD [address] [place] [address] 12/06/2024 9:30 AM INTERNATIONAL GUEST COORDINATOR Appointment [facility] Maternal Medicine [place] [address] [place] [phone] Nicole Núñez MD [address] [place] [address] 12/06/2024 10:00 AM INTERNATIONAL GUEST COORDINATOR Office Visit [facility] Medicine [place] [address] [place] [phone] Nicole Núñez MD [address] [place] [address] 12/13/2024 9:30 AM INTERNATIONAL GUEST COORDINATOR Appointment [facility] Maternal Medicine [place] [address] [place] [phone] Nicole Núñez MD [address] [place] [address] 12/13/2024 10:00 AM INTERNATIONAL GUEST COORDINATOR Office Visit [facility] Maternal Medicine [place] [address] [place] [phone] Nicole Núñez MD [address] [place] [address] 12/19/2024 9:30 AM INTERNATIONAL GUEST COORDINATOR Appointment [facility] Maternal Medicine [place] [address] [place] [phone] Nicole Núñez MD [address] [place] [address] 12/19/2024 10:00 AM INTERNATIONAL GUEST COORDINATOR Office Visit [facility] Maternal Medicine [facility] [address] [place] [address] Nicole Núñez MD [address] [place] [address] 12/28/2024 10:15 AM INTERNATIONAL GUEST COORDINATOR Appointment [facility] Maternal Medicine [place] [address] [place] [phone] Diane Lopez MD [address] [place] [address] 12/28/2024 10:45 AM INTERNATIONAL GUEST COORDINATOR Office Visit [facility] Maternal Medicine [place] [address] [place] [address] Diane Lopez MD [address] [place] [address] 01/11/2025 10:15 AM CDT Appointment [facility] [place] [address] [place] [phone] Diane Lopez MD [address] [place] [address] 01/11/2025 10:45 AM CDT Office Visit [facility] [place] [address] [place] [address] Diane Lopez MD [address] [place], [place] [address] documented as of this encounter Results * MFM Twins US Comprehensive F/U (11/22/2024 11:09 AM INTERNATIONAL GUEST COORDINATOR) Anatomical Region Laterality Modality Ultrasound 11/22/2024 9:46 AM INTERNATIONAL GUEST COORDINATOR Impressions 11/23/2024 6:03 PM INTERNATIONAL GUEST COORDINATOR IMPRESSION ----- Monochorionic diamniotic twin gestation at [...] anemia polycythemia syndrome. Narrative 11/23/2024 6:03 PM INTERNATIONAL GUEST COORDINATOR Surveillance US ----- Pat. Name: DEANDRE CHÁVEZ Study Date: 11/22/2024 9:46am Pat. NO: [id number] Referring MD: PAMELA CUELLAR Site: Curve Saw Operator: José Miguel CastellonSUSAN garcía : 1995 Age: [...] the patient (reviewing medical records/tests), in direct qvpa-yo-ojuj contact with the patient counseling and discussing the plan of care, documenting the visit in the electronic medical record, and communicating with other health care services manager and/or care coordination. Procedure Note Nicole Núñez MD - 11/23/2024 Surveillance ----- Pat. Name: DEANDRE CHÁVEZ Study Date: 11/22/2024 9:46am Pat. NO: [id number] Referring MD: PAMELA CUELLAR Site: Curve Saw Operator: José Miguel Hussein RDMS : 1995 Age: [...] see the patient(reviewing medical records/tests), in direct uyem-bp-xrmc contact with the patient counseling and discussingthe plan of care, documenting the visit in the electronic medical record,and communicating with other health care services manager and/or care coordination. IMPRESSION ----- Monochorionic diamniotic [...] anemia polycythemia syndrome. us Flower Amato MD [facility] ORDERABLES Edited Re sult - Final documented in this encounter Visit Diagnoses Diagnosis 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- Primary Discordant growth in twin gestation, fetus 2 of multiple gestation Intrauterine growth restriction affecting antepartum care of mother in first trimester, fetus 2 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 documented in this encounter Care Teams Customer Service Security Officer Relationship Specialty Start Date End Date No Ref-Primary, Physician PCP - General 12/04/21 documented as of this encounter
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
--- OUTSIDE RECORDS SUMMARY | 2024-12-01 11:24 | XMS_ITS | Encounter Summary ---
Author Organization [facility] Address [address] [place] [address] Care Team Providers Care Door To Door Selling Agent Name Role Phone No Ref-Primary, Physician Primary [...] on file Legal Sex Female 11:44 PM HAND TOOL LAPPER Gender Identity Not on file Sexual Orientation Not on file documented as of this encounter Plan of Treatment Upcoming Encounters Date Type Department Care Team (Late st Contact Info) Description 12/03/2024 2:15 PM HAND TOOL LAPPER Appointment [facility] [place] [address] [place], [place] [address] [place] [phone] Nicole Núñez MD [address] [place] [address] 244784 12/03/2024 2:45 PM HAND TOOL LAPPER Office Visit [facility] [place] [address] [place] [address] [phone] Nicole Núñez MD [address] [place] [address] 12/06/2024 9:30 AM HAND TOOL LAPPER Appointment [facility] Maternal Medicine [place] [address] [place] [phone] Nicole Núñez MD [address] [place] [address] 12/06/2024 10:00 AM HAND TOOL LAPPER Office Visit [facility] Maternal Medicine [place] [address] [facility] [address] [place] [phone] Nicole Núñez MD [address] [place] [address] 12/13/2024 9:30 AM HAND TOOL LAPPER Appointment [facility] Medicine [place] [address] [place] [phone] Nicole Núñez MD [address] [place] [address] 12/13/2024 10:00 AM HAND TOOL LAPPER Office Visit [facility] Maternal Medicine [place] [address] [place] [phone] Nicole Núñez MD [address] [place] [address] 12/19/2024 9:30 AM HAND TOOL LAPPER Appointment [facility] M[facility] Medicine [place] [address] [place] [phone] Nicole Núñez MD [address] [place] [address] 12/19/2024 10:00 AM HAND TOOL LAPPER Office Visit [facility] Maternal Medicine [place] [address] [place] [phone] Nicole Núñez MD [address] [place] [address] 12/28/2024 10:15 AM HAND TOOL LAPPER Appointment [facility] [place] [address] [place] [address] Diane Lopez MD [address] [place], [place] [address] 12/28/2024 10:45 AM HAND TOOL LAPPER Office Visit [facility] Maternal Medicine [place] [address] [place] [phone] Diane Lopez MD [address] [place], [place] 235[address] 01/11/2025 10:15 AM CDT Appointment [facility] [place] [address] [facility] [address] [place] [phone] Diane Lopez MD [address] [place], [place] 74[address]34 01/11/2025 10:45 AM CDT Office Visit [facility] Maternal Medicine [place] [address] [facility] [address] [place] [phone] Diane Lopez MD [address] [place], [place] 59[address]64 documented as of this encounter Visit Diagnoses Not on filedocumented in this encounter Care Teams Door To Door Selling Agent Relationship Specialty Start Date End Date No Ref-Primary, Physician PCP - General 2/4/22 documented as of this encounter
--- OUTSIDE RECORDS SUMMARY | 2024-12-01 11:24 | XMS_ITS | Encounter Summary ---
Author Organization [facility] Address [address] [place] [address] Care Team Providers Care Artist Woodblock Name Role Phone No Ref-Primary, Physician Primary Care Provider Flower Amato MD Unavailable [phone] Encounter Details Date Type Department Care Team [...] on file Legal Sex Female 11:44 PM COMPACTOR DRIVER Gender Identity Not on file Sexual Orientation Not on file documented as of this encounter Plan of Treatment Upcoming Encounters Date Type Department Care Team (Late st Contact Info) Description 12/03/2024 2:15 PM COMPACTOR DRIVER Appointment [facility] M[facility] Medicine [facility] [place] [address] [place] [phone] Nicole Núñez MD [address] [place] [address] 12/03/2024 2:45 PM COMPACTOR DRIVER Office Visit [facility] [place] [address] [place] [address] Nicole Núñez MD [address] [place] [address] 12/06/2024 9:30 AM COMPACTOR DRIVER Appointment [facility] Medicine [facility] [place] [address] [place] [phone] Nicole Núñez MD [address] [place] [address] 12/06/2024 10:00 AM COMPACTOR DRIVER Office Visit [facility] Maternal Medicine [place] [address] [place] [phone] Nicole Núñez MD [address] [place] [address] 12/13/2024 9:30 AM COMPACTOR DRIVER Appointment [facility] M[facility] Medicine [place] [address] [place] [phone] Nicole Núñez MD [address] [place] [address] 12/13/2024 10:00 AM COMPACTOR DRIVER Office Visit [facility] Maternal Medicine [place] [address] [place] [phone] Nicole Núñez MD [address] [place] [address] 12/19/2024 9:30 AM COMPACTOR DRIVER Appointment [facility] Medicine [place] [address] [place] [address] Nicole Núñez MD [address] [place] [address] 12/19/2024 10:00 AM COMPACTOR DRIVER Office Visit [facility] Maternal Medicine [place] [address] [place] [address] Nicole Núñez MD [address] [place] [address] 12/28/2024 10:15 AM COMPACTOR DRIVER Appointment [facility] Maternal Medicine [place] [address] [place] [address] Diane Lopez MD [address] [place], [place] 7[address]64 12/28/2024 10:45 AM COMPACTOR DRIVER Office Visit [facility] Maternal Medicine [place] [address] [place] [phone] Diane Lopez MD [address] [place], [place] 54[address]24 01/11/2025 10:15 AM CDT Appointment [facility] M[facility] Medicine [place] [address] [place] [phone] Diane Lopez MD [address] [place], [place] 289214 01/11/2025 10:45 AM CDT Office Visit [facility] Maternal Medicine [place] [address] [place] [phone] Diane Lopez MD [address] [place] [address] documented as of this encounter Visit Diagnoses Not on filedocumented in this encounter Care Teams Artist Woodblock Relationship Specialty Start Date End Date No Ref-Primary, Physician PCP - General 12/04/21 Flower Amato MD [address] [place] [address] Assigned OBGYN Provider 11/22/24 documented as of this encounter
--- OUTSIDE RECORDS SUMMARY | 2024-12-01 11:24 | XMS_ITS | Encounter Summary ---
Author Organization [facility] Address [address] [place] [address] Care Team Providers Care Photo Print Specialist Name Role Phone No Ref-Primary, Physician Primary Care Provider Flower Amato MD Unavailable [phone] Encounter Details Date Type Department Care [...] on file Legal Sex Female 11:44 PM TELESCOPE REPAIRER Gender Identity Not on file Sexual Orientation Not on file documented as of this encounter Plan of Treatment Upcoming Encounters Date Type Department Care Team (Late st Contact Info) Description 12/03/2024 2:15 PM TELESCOPE REPAIRER Appointment [facility] [place] [address] [place] [phone] Nicole Núñez MD [address] [place] [address] 12/03/2024 2:45 PM TELESCOPE REPAIRER Office Visit [facility] [place] [address] [place] [address] Nicole Núñez MD [address] [place] [address] 12/06/2024 9:30 AM TELESCOPE REPAIRER Appointment [facility] Medicine [facility] [place] [address] [place] [phone] Nicole Núñez MD [address] [place] [address] 12/06/2024 10:00 AM TELESCOPE REPAIRER Office Visit [facility] Maternal Medicine [place] [address] [place] [phone] Nicole Núñez MD [address] [place] [address] 12/13/2024 9:30 AM TELESCOPE REPAIRER Appointment [facility] Maternal Medicine [place] [address] [place] [phone] Nicole Núñez MD [address] [place] [address] 12/13/2024 10:00 AM TELESCOPE REPAIRER Office Visit [facility] Maternal Medicine [place] [address] [place] [phone] Nicole Núñez MD [address] [place] [address] 12/19/2024 9:30 AM TELESCOPE REPAIRER Appointment [facility] Maternal Medicine [place] [address] [place] [phone] Nicole Núñez MD [address] [place] [address] 12/19/2024 10:00 AM TELESCOPE REPAIRER Office Visit [facility] Maternal Medicine [place] [address] [place] [phone] Nicole Núñez MD [address] [place] [address] 12/28/2024 10:15 AM TELESCOPE REPAIRER Appointment [facility] Maternal Medicine [place] [address] [place] [phone] Diane Lopez MD [address] [place], [place] 99[address] 12/28/2024 10:45 AM TELESCOPE REPAIRER Office Visit [facility] Maternal Medicine [place] [address] [place] [phone] Diane Lopez MD [address] [place], [place] [address]414 01/11/2025 10:15 AM CDT Appointment [facility] Maternal Medicine [place] [address] [place] [phone] Diane Lopez MD [address] [place], [place] 437354 01/11/2025 10:45 AM CDT Office Visit [facility] Maternal Medicine [place] [address] [place] [phone] Diane Lopez MD [address] [place] [address] documented as of this encounter Visit Diagnoses Not on filedocumented in this encounter Care Teams Photo Print Specialist Relationship Specialty Start Date End Date No Ref-Primary, Physician PCP - General 12/04/21 Flower Amato MD [address] [place] [address] Assigned OBGYN Provider 11/22/24 documented as of this encounter
--- OUTSIDE RECORDS SUMMARY | 2024-12-01 11:24 | XMS_ITS | Encounter Summary ---
Author Organization [facility] Address [address] [place] [address] Care Team Providers Care Orthodontist Vice President Name Role Phone No Ref-Primary, Physician Primary Care Provider Reason for Referral * Diagnostic Imaging Ultrasound (Routine) - Pending Review Specialty Diagnoses / Procedures Referred By Noa lilly Referred To Contact Radiology. Diagnoses Monochorionic diamniotic twin gestation Procedures MFM Twins US Comprehensive F/U Diane Lopez MD 606 [facility] [address] [address] Phone: tel: fax: Referral ID Status Reason Start Date Expiration Date V isits Requested Visits Authorized [id number] Pending Review 10/19/2024 10/19/2025 1 1 NOLOGY SUPPORT ANALYST Reason for Visit * Diagnostic Imaging Ultrasound (Routine) - Pending Review Specialty Diagnoses / Procedures Referred By Noa lilly Referred To Contact Radiology. Diagnoses Monochorionic diamniotic twin gestation Procedures MFM Twins US Alivia F/U Diane Lopez MD [address] [place] [address] Phone: tel: fax: Referral ID Status Reason Start Date Expiration Date V isits Requested Visits Authorized [id number] Pending Review 10/19/2024 10/19/2025 1 1 Encounter Details Date Type Department Care Team (Latest Contact Info) Description 11/08/2024 9:24 AM TECHNOLOGY SUPPORT ANALYST - 11/08/2024 11:59 PM TECHNOLOGY SUPPORT ANALYST Hospital Encounter [facility] Maternal Medicine [facility] [place] [address] [facility] [address] [place] [address] Flor Dickson MD [address] [place], [place] 642234 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 [...] on file Legal Sex Female 11:44 PM TECHNOLOGY SUPPORT ANALYST Gender Identity Not on file Sexual [...] st Contact Info) Description 12/03/2024 2:15 PM TECHNOLOGY SUPPORT ANALYST Appointment [facility] M[facility] Medicine [facility] [place] [address] [place] [phone] Nicole Núñez MD [address] [place] [address] 12/03/2024 2:45 PM TECHNOLOGY SUPPORT ANALYST Office Visit [facility] Maternal Medicine [facility] [address] [place] [address] Nicole Núñez MD [address] [place] [address] 12/06/2024 9:30 AM TECHNOLOGY SUPPORT ANALYST Appointment [facility] M[facility] [address] [place] [phone] Nicole Núñez MD [address] [place] [address] 12/06/2024 10:00 AM TECHNOLOGY SUPPORT ANALYST Office Visit [facility] M[facility] [address] [place] [phone] Nicole Núñez MD [address] [place] [address] 12/13/2024 9:30 AM TECHNOLOGY SUPPORT ANALYST Appointment [facility] M[facility] [address] [place] [phone] Nicole Núñez MD [address] [place] [address] 12/13/2024 10:00 AM TECHNOLOGY SUPPORT ANALYST Office Visit [facility] Maternal Medicine Center [place] [address] [place] [phone] Nicole Núñez MD 606 [facility] [place] [address] 12/19/2024 9:30 AM TECHNOLOGY SUPPORT ANALYST Appointment [facility] Maternal Medicine [place] [address] [place] [phone] Nicole Núñez MD 606 [facility] [place] [address] 12/19/2024 10:00 AM TECHNOLOGY SUPPORT ANALYST Office Visit [facility] Maternal Medicine [place] [address] [place] [phone] Nicole Núñez MD 606 [facility] [place] [address] 12/28/2024 10:15 AM TECHNOLOGY SUPPORT ANALYST Appointment [facility] Maternal Medicine [place] [address] [place] [phone] Diane Lopez MD [address] [address] 12/28/2024 10:45 AM TECHNOLOGY SUPPORT ANALYST Office Visit [facility] Maternal Medicine [place] [address] [place] [phone] Diane Lopez MD [address] [address] 01/11/2025 10:15 AM CDT Appointment [facility] Maternal Medicine [place] [address] [place] [phone] Diane Lopez MD [address] [place], [place] [address]404 01/11/2025 10:45 AM CDT Office Visit [facility] Maternal Medicine [facility] [place] [address] [place] [address] Diane Lopez MD [address] [place], [place] 8[address] documented as of this encounter Procedures Procedure Name Priority Date/Time Associated Diagnosis Comments MFM TWINS US COMPREHENSIVE F/U Routine 11/08/2024 10:15 AM TECHNOLOGY SUPPORT ANALYST 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 Narrative 11/08/2024 11:28 AM [facility] Surveillance US ----- Pat. Name: HEATHER CHÁVEZ Study Date: 11/08/2024 9:37am Pat. NO: [id number] Referring MD: PAMELA CUELLAR Site: News Copy Editor: Chantell Jarquin RDMS : 1995 Age: 29 [...] CHÁVEZ Study Date: 11/08/2024 9:37am Pat. NO: [id number] Referring MD: PAMELA CUELLAR Site: News Copy Editor: Chantell Jarquin RDMS : 1995 Age: 29 [...] anemia polycythemia syndrome. 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
--- OUTSIDE RECORDS SUMMARY | 2024-12-01 11:24 | XMS_ITS | Encounter Summary ---
Author Organization [facility] Address [address] [place] [address] Care Team Providers Care Chemical Worker Name Role Phone No Ref-Primary, Physician Primary Care Provider Flower Amato MD Unavailable [phone] Reason for Referral * Diagnostic Imaging Ultrasound (Routine) - Pending Review Specialty Diagnoses / Procedures Referred By Noa lilly Referred To Contact Radiology. 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 Intrauterine growth restriction affecting antepartum care of mother in first trimester, fetus 2 Procedures MFM Twins US Comprehensive F/U Nicole Núñez MD [address] [place] [address] Phone: tel: fax: Referral ID Status Reason Start Date Expiration Date V isits Requested Visits Authorized [id number] Pending Review 11/22/2024 11/22/2025 1 1 ESSIVE ART THERAPIST Reason for Visit * Reason Comments Ultrasound RL2/UAR/MCA: mono/di twins, TTTS check/ sFGR fetus 2 Encounter Details Date Type Department Care Team (Latest Contact Info) Description 11/22/2024 10:00 AM EXPRESSIVE ART THERAPIST Office Visit [facility] Maternal Medicine Center [place] [address] [facility] [address] [place] [address] Nicole Núñez MD [address] [place] [address] Monochorionic diamniotic twin gestation in second [...] on file Legal Sex Female 11:44 PM EXPRESSIVE ART THERAPIST Gender Identity Not on file Sexual Orientation [...] the Maternal- Medicine Center. Nicole Núñez MD Intern Architect, EXTENDER Maternal- Medicine ESSIVE ART THERAPIST documented in this encounter Nursing Notes * [...] discharged stable and ambulatory. Joceline Bejarano RN ESSIVE ART THERAPIST ESSIVE ART THERAPIST documented in this encounter Plan of Treatment Upcoming Encounters Date Type Department Care Team (Late st Contact Info) Description 12/03/2024 2:15 PM EXPRESSIVE ART THERAPIST Appointment [facility] Medicine [facility] [place] [address] [place] [address] Nicole Núñez MD [address] [place] [address] 12/03/2024 2:45 PM EXPRESSIVE ART THERAPIST Office Visit [facility] [place] [address] [address] Nicole Núñez MD [address] [place] [address] 12/06/2024 9:30 AM EXPRESSIVE ART THERAPIST Appointment [facility] [place] [address] [facility] [address] [place] [phone] Nicole Núñez MD [address] [address] 12/06/2024 10:00 AM EXPRESSIVE ART THERAPIST Office Visit [facility] Maternal Medicine [facility] [place] [address] [place] [phone] Nicole Núñez MD [address] [place] [address] 12/13/2024 9:30 AM EXPRESSIVE ART THERAPIST Appointment [facility] Maternal Medicine [place] [address] [place] [phone] Nicole Núñez MD [address] [place] [address] 12/13/2024 10:00 AM EXPRESSIVE ART THERAPIST Office Visit [facility] Maternal Medicine [place] [address] [place] [phone] Nicole Núñez MD [address] [place] [address] 12/19/2024 9:30 AM EXPRESSIVE ART THERAPIST Appointment [facility] Maternal Medicine [place] [address] [place] [phone] Nicole Núñez MD [address] [place] [address] 12/19/2024 10:00 AM EXPRESSIVE ART THERAPIST Office Visit [facility] Medicine [facility] [place] [address] [place] [phone] Nicole Núñez MD [address] [place] [address] 12/28/2024 10:15 AM EXPRESSIVE ART THERAPIST Appointment [facility] Maternal Medicine [place] [address] [facility] [address] [place] [phone] Diane Lopez MD [address] [place] [address] 12/28/2024 10:45 AM EXPRESSIVE ART THERAPIST Office Visit [facility] [place] [address] [place] [address] Diane Lopez MD [address] [place] [address] 01/11/2025 10:15 AM CDT Appointment [facility] Maternal Medicine [facility] [address] [place] [address] Diane Lopez MD [address] [place] [address] 01/11/2025 10:45 AM CDT Office Visit [facility] Maternal Medicine [facility] [address] [place] [address] Diane Lopez MD [address] [place] [address] Scheduled Orders Name Type Priority Associated Diagnoses [...] 2 documented in this encounter Care Teams Chemical Worker Relationship Specialty Start Date End Date No Ref-Primary, Physician PCP - General 12/04/21 Flower Amato MD [address] [address] Assigned OBGYN Provider 11/22/24 documented as of this encounter
--- OUTSIDE RECORDS SUMMARY | 2024-12-01 11:24 | XMS_ITS | Encounter Summary ---
Author Organization [facility] Address [address] [place] [address] Care Team Providers Care Pastry Cook Name Role Phone No Ref-Primary, Physician Primary Care Provider Reason for Visit * Reason Comments Ultrasound RL2/UAR/MCA: TTTS ch luigi; mono/di twins Encounter Details Date Type Department Care Team (Latest Contact Info) Description 11/08/2024 10:00 AM LIQUID LOADER Office Visit [facility] [place] [address] [facility] [address] [place] [address] Flor Dickson MD [address] [facility] [address] [place] [address] Monochorionic diamniotic twin gestation in [...] on file Legal Sex Female 11:44 PM LIQUID LOADER Gender Identity Not on file Sexual [...] Center. Flor Dickson M.D. Maternal -Medicine Specialist ID LOADER documented in this encounter Nursing Notes * Joceline Bejarano, RN - 11/08/2024 10:00 AM CST Heather seen in clinic today for TTTS check at 18w4d gestation due to mono/di twin gestation (see report/notes). Pt denies bldg/lof/change in discharge/contractions. Dr. Dickson reviewed US. Plan to return on 11/14 for L2. Pt discharged stable and ambulatory. Joceline Bejarano RN ID LOADER documented in this encounter Plan of Treatment Upcoming Encounters Date Type Department Care Team (Late st Contact Info) Description 12/03/2024 2:15 PM LIQUID LOADER Appointment [facility] [address] [phone] Nicole Núñez MD [address] [place] [address] 12/03/2024 2:45 PM LIQUID LOADER Office Visit [facility] [address] [address] Nicole Núñez MD [address] [place] [address] 12/06/2024 9:30 AM LIQUID LOADER Appointment [facility] [place] [address] [facility] [address] [place] [address] Nicole Núñez MD [address] [place] [address] 12/06/2024 10:00 AM LIQUID LOADER Office Visit [facility] Maternal Medicine Center [place] [address] [place] [phone] Nicole Núñez MD [address] [place] [address] 12/13/2024 9:30 AM LIQUID LOADER Appointment M [facility] Maternal Medicine [place] [address] [place] [phone] Nicole Núñez MD [address] [place] [address] 12/13/2024 10:00 AM LIQUID LOADER Office Visit [facility] [place] [address] [place] [phone] Nicole Núñez MD [address] [place] [address] 12/19/2024 9:30 AM LIQUID LOADER Appointment M [facility] Maternal Medicine [place] [address] [place] [phone] Nicole Núñez MD [address] [place] [address] 12/19/2024 10:00 AM LIQUID LOADER Office Visit M [facility] Maternal Medicine Center [place] [address] [place] [phone] Nicole Núñez MD [address] [place] [address] 12/28/2024 10:15 AM LIQUID LOADER Appointment [facility] Medicine [place] [address] [place] [phone] Diane Lopez MD [address] [place] [address] 12/28/2024 10:45 AM LIQUID LOADER Office Visit [facility] [place] [address] [place] [phone] Diane Lopez MD [address] [place] [address] 01/11/2025 10:15 AM CDT Appointment [facility] [place] [address] [place] [phone] Diane Lopez MD [address] [place] [address] 01/11/2025 10:45 AM CDT Office Visit [facility] Medicine [place] [address] [place] [phone] Diane Lopez MD [address] [place] [address] documented as of this encounter Visit Diagnoses Diagnosis 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
--- OUTSIDE RECORDS SUMMARY | 2024-12-01 11:24 | XMS_ITS | Encounter Summary ---
Author Organization [facility] Address [address] [place] [address] Care Team Providers Care Weather Observer Name Role Phone No Ref-Primary, Physician Primary Care Provider Flower Amato MD Unavailable [phone] Reason for Referral * CV Testing (Routine) - Closed Specialty Diagnoses / Procedures Referred By Contac t Referred To Contact Cardiology Diagnoses Monochorionic diamniotic twin gestation Procedures Echo (TTE) Complete Yobani Lpoez MD [address] [place] [address] Phone: tel: fax: [facility] [address] [address] Phone: tel: Referral ID Status Reason Start Date Expiration Date Visits Re quested Visits Authorized [id number] Closed 10/19/2024 10/19/2025 1 1 SPORT ASSISTANT Reason for Visit * CV Testing (Routine) - Closed Specialty Diagnoses / Procedures Referred By Contac t Referred To Contact Cardiology Diagnoses Monochorionic diamniotic twin gestation Procedures Echo (TTE) Yobani Olivares MD [address] [place] [address] Phone: tel: fax: [facility] [address] [place] [address] Phone: tel: Referral ID Status Reason Start Date Expiration Date Visits Re quested Visits Authorized [id number] Closed 10/19/2024 10/19/2025 1 1 Encounter Details Date Type Department Care Team (Latest Contact Info) Description 11/30/2024 12:25 PM TRANSPORT ASSISTANT - 11/30/2024 1:30 PM TRANSPORT ASSISTANT Hospital Encounter [facility] [address] [place] [phone] Yobani Lopez MD [address] [place] [address] [address] [place] [address] Monochorionic diamniotic twin gestation in [...] on file Legal Sex Female 11:44 PM TRANSPORT ASSISTANT Gender Identity Not on file Sexual Orientation [...] st Contact Info) Description 12/03/2024 2:15 PM TRANSPORT ASSISTANT Appointment [facility] Maternal Medicine [facility] [address] [place] [phone] Nicole Núñez MD [address] [place] [address] 12/03/2024 2:45 PM TRANSPORT ASSISTANT Office Visit [facility] Maternal Medicine [facility] [address] [place] [address] Nicole Núñez MD [address] [place] [address] 12/06/2024 9:30 AM TRANSPORT ASSISTANT Appointment [facility] Maternal Medicine [facility] [address] [facility] [address] [place] [phone] Nicole Núñez MD [address] [place] [address] 12/06/2024 10:00 AM TRANSPORT ASSISTANT Office Visit [facility] Maternal Medicine [facility] [address] [facility] [address] [place] [phone] Nicole Núñez MD [address] [place] [address] 12/13/2024 9:30 AM TRANSPORT ASSISTANT Appointment [facility] Maternal Medicine Center [place] [address] [place] [phone] Nicole Núñez MD [address] [place] [address] 12/13/2024 10:00 AM TRANSPORT ASSISTANT Office Visit [facility] Maternal Medicine [place] [address] [place] [phone] Nicole Núñez MD [address] [place] [address] 12/19/2024 9:30 AM TRANSPORT ASSISTANT Appointment [facility] Maternal Medicine [place] [address] [place] [phone] Nicole Núñez MD [address] [place] [address] 12/19/2024 10:00 AM TRANSPORT ASSISTANT Office Visit [facility] Maternal Medicine [place] [address] [place] [phone] Nicoel Núñez MD [address] [place] [address] 12/28/2024 10:15 AM TRANSPORT ASSISTANT Appointment [facility] Maternal Medicine Center [place] [address] [place] [phone] Yobani Lopez MD [address] [address] 12/28/2024 10:45 AM TRANSPORT ASSISTANT Office Visit [facility] Maternal Medicine Center [place] [address] [place] [phone] Yobani Lopez MD [address] [place] [address] 01/11/2025 10:15 AM CDT Appointment [facility] Maternal Medicine [facility] [address] [place] [phone] Yobani Lopez MD [address] [place], [place] [address] 01/11/2025 10:45 AM CDT Office Visit [facility] Maternal Medicine [facility] [address] [place] [address] Yobani Lopez MD [address] [place], [place] [address] documented as of this encounter Procedures Procedure Name Priority Date/Time Associated Diagnosis Comments ECHO COMPLETE Routine 11/30/2024 1 :46 PM TRANSPORT ASSISTANT 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 Due date: 04/07/2025. Gestational age: 21w5d. Delivery at: [facility]. Specific Indication: echocardiogram performed for monochorionic diamniotic [...] to the left atrium. There is laminar ointd-sd-mkdm shunting across the foramen ovale. Atrioventricular valves: [...] Procedure Note Luc Dominguez MD - 11/30/2024 [id number] [facility] [id number]^ZAK^YOBANI Study ID:[id number] [facility] [address] Echocardiogram Name: HEATHER CHÁVEZ Study Date: 11/30/2024 01:42 PM Patient Location: [facility] Gender: Female Patient Class:Outpatient : [id number] Age: 29 yrs Ordering Provider: YOBANI LOPEZ Referring Provider: YOBANI LOPEZ Performed By: Daphney Dao RDCS Reading Physician: Luc Dominguez MD Reason For Study: [facility] Data: Number of fetuses: This is a twin gestation. Due date: 04/07/2025. Gestational age: 21w5d. Delivery at: [facility]. Specific Indication: echocardiogram performed formonochorionic diamniotic twins. [...] breech position. The fetus [facility]. The heart is in left chest. [...] in to the left atrium. There is kcozewbvxenf-wy-drqz shunting across the foramen ovale. Atrioventricular valves: [...] trimester documented in this encounter Care Teams Weather Observer Relationship Specialty Start Date End Date No Ref-Primary, Physician PCP - General 12/04/21 Flower Amato MD [address] [place] [address] Assigned OBGYN Provider 11/22/24 documented as of this encounter
--- OUTSIDE RECORDS SUMMARY | 2024-12-01 11:24 | XMS_ITS | Encounter Summary ---
Author Organization [place] Address [address] [place] [address] Care Team Providers Care Belt Molder Name Role Phone No Ref-Primary, Physician Primary Care Provider Flower Amato MD Unavailable [phone] Reason for Referral * Diagnostic Imaging Ultrasound (Routine) - Pending Review Specialty Diagnoses / Procedures Referred By Noa lilly Referred To Contact Radiology. 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 Procedures MFM Twins US Comprehensive F/U Flower Amato MD [address] [place] [address] Phone: tel: fax: Referral ID Status Reason Start Date Expiration Date V isits Requested Visits Authorized [id number] Pending Review 11/14/2024 11/14/2025 1 1 Encounter Details Date Type Department Care Team (Latest Contact Info) Description 11/22/2024 9:28 AM DOUBLE CUT SAWYER - 11/22/2024 11:59 PM DOUBLE CUT SAWYER Hospital Encounter [facility] M[facility] [place] [address] [facility] [address] [place] [phone] Nicole Núñez MD [address] [place], [place] [address] 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 [address] [place] [phone] Nicole Núñez MD [address] [place] [address] 12/03/2024 2:45 PM DOUBLE CUT SAWYER Office Visit [facility] Maternal Medicine [facility] [address] [place] [address] Nicole Núñez MD [address] [place] [address] 12/06/2024 9:30 AM DOUBLE CUT SAWYER Appointment [facility] Maternal Medicine [facility] [address] [place] [phone] Nicole Núñez MD [address] [place] [address] 12/06/2024 10:00 AM DOUBLE CUT SAWYER Office Visit [facility] Maternal Medicine [facility] [address] [place] [phone] Nicole Núñez MD [address] [place] [address] 12/13/2024 9:30 AM DOUBLE CUT SAWYER Appointment [facility] Maternal Medicine [facility] [address] [place] [phone] Nicole Núñez MD [address] [place] [address] 12/13/2024 10:00 AM DOUBLE CUT SAWYER Office Visit [facility] Maternal Medicine Center [place] [address] [place] [phone] Nicole Núñez MD [address] [place] [address] 12/19/2024 9:30 AM DOUBLE CUT SAWYER Appointment [facility] Maternal Medicine [place] [address] [place] [phone] Nicole Núñez MD [address] [facility] [place] [address] 12/19/2024 10:00 AM DOUBLE CUT SAWYER Office Visit [facility] Maternal Medicine [place] [address] [place] [phone] Nicole Núñez MD [address] [facility] [place] [place] [address] 12/28/2024 10:15 AM DOUBLE CUT SAWYER Appointment [facility] Maternal Medicine [place] [address] [place] [phone] Diane Lopez MD [address] [address] 12/28/2024 10:45 AM DOUBLE CUT SAWYER Office Visit [facility] Maternal Medicine [place] [address] [place] [phone] Diane Lopez MD [address] [address] 01/11/2025 10:15 AM CDT Appointment [facility] Maternal Medicine Center [place] [address] [place] [phone] Diane Lopez MD [address] [place], [place] [address] 01/11/2025 10:45 AM CDT Office Visit [facility] Maternal Medicine [facility] [address] [place] [phone] Diane Lopez MD [address] [place], [place] [address] documented as of this encounter Procedures Procedure Name Priority Date/Time Associated Diagnosis Comments MFM TWINS US COMPREHENSIVE F/U Routine 11/22/2024 11:09 AM DOUBLE CUT SAWYER 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 Narrative 11/23/2024 6:03 PM [facility] Surveillance US ----- Pat. Name: HEATHER CHÁVEZ Study Date: 11/22/2024 9:46am Pat. NO: [id number] Referring MD: PAMELA CUELLAR Site: Public Policy Analyst: José Miguel Hussein RDMS : 1995 Age: [...] the patient (reviewing medical records/tests), in direct kaqd-vl-chim contact with the patient counseling and discussing the plan of care, documenting the visit in the electronic medical record, and communicating with other health wild animal caretaker and/or care coordination. Procedure Note Nicole Núñez MD - 11/23/2024 Surveillance US ----- Pat. Name: HEATHER CHÁVEZ Study Date: 11/22/2024 9:46am Pat. NO: [id number] Referring MD: PAMELA CUELLAR Site: Public Policy Analyst: José Miguel Hussein RDMS : 1995 Age: [...] today's evaluation or if we can [facility], please contact the Maternal- Medicine Center. anomalies may be present but not detected I spent a total of 15 minutes (excluding the ultrasound interpretation) onthe date of this encounter including preparing to see the patient(reviewing medical records/tests), in direct gfdh-ru-gvdv contact with the patient counseling and discussingthe plan of care, documenting the visit in the electronic medical record,and communicating with other health wild animal caretaker and/or care coordination. IMPRESSION ----- Monochorionic diamniotic [...] anemia polycythemia syndrome. 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
--- OUTSIDE RECORDS SUMMARY | 2024-12-01 11:24 | XMS_ITS | Encounter Summary ---
Author Organization [place] Address [address] [place] [address] Care Team Providers Care Communication Equipment Mechanic Name Role Phone No Ref-Primary, Physician Primary [...] on file Legal Sex Female 11:44 PM SMOKEHOUSE WORKER Gender Identity Not on file Sexual Orientation Not on file documented as of this encounter Plan of Treatment Upcoming Encounters Date Type Department Care Team (Late st Contact Info) Description 12/03/2024 2:15 PM SMOKEHOUSE WORKER Appointment [facility] M[facility] Medicine [facility] [address] [place], [place] [address] [place] [phone] Nicole Núñez MD [address] [place] [phone] 12/03/2024 2:45 PM SMOKEHOUSE WORKER Office Visit [facility] [address] [place] [phone] Nicole Núñez MD [address] [place] [address] 12/06/2024 9:30 AM SMOKEHOUSE WORKER Appointment [facility] Maternal Medicine [place] [address] [place] [phone] Nicole Núñez MD [address] [place] [address] 12/06/2024 10:00 AM SMOKEHOUSE WORKER Office Visit [facility] Maternal Medicine [place] [address] [facility] [address] [place] [phone] Nicole Núñez MD [address] [place] [address] 12/13/2024 9:30 AM SMOKEHOUSE WORKER Appointment [facility] Maternal Medicine [place] [address] [place] [phone] Nicole Núñez MD [address] [place] [address] 12/13/2024 10:00 AM SMOKEHOUSE WORKER Office Visit [facility] Maternal Medicine [place] [address] [place] [phone] Nicole Núñez MD [address] [place] [address] 12/19/2024 9:30 AM SMOKEHOUSE WORKER Appointment [facility] Maternal Medicine [place] [address] [place] [phone] Nicole Núñez MD [address] [place] [address] 12/19/2024 10:00 AM SMOKEHOUSE WORKER Office Visit [facility] Maternal Medicine [place] [address] [place] [phone] Nicole Núñez MD [address] [place] [address] 12/28/2024 10:15 AM SMOKEHOUSE WORKER Appointment [facility] Medicine [place] [address] [place] [phone] Diane Lopez MD [address] [place], [place] [address] 12/28/2024 10:45 AM SMOKEHOUSE WORKER Office Visit [facility] Maternal Medicine [place] [address] [place] [phone] Diane Lopez MD [address] [place], [place] [address] 01/11/2025 10:15 AM CDT Appointment [facility] [place] [address] [facility] [address] [place] [phone] Diane Lopez MD [address] [place], [place] [address] 01/11/2025 10:45 AM CDT Office Visit [facility] Maternal Medicine [place] [address] [facility] [address] [place] [phone] Diane Lopez MD [address] [place], [place] [address] documented as of this encounter Visit Diagnoses Not on filedocumented in this encounter Care Teams Communication Equipment Mechanic Relationship Specialty Start Date End Date No Ref-Primary, Physician PCP - General 2/4/22 documented as of this encounter
--- OUTSIDE RECORDS SUMMARY | 2024-12-01 11:24 | XMS_ITS | Encounter Summary ---
Author Organization [facility] Address [address] [place] [address] Care Team Providers Care Intensivist Name Role Phone No Ref-Primary, Physician Primary Care Provider Flower Amato MD Unavailable [phone] Reason for Referral * Diagnostic Imaging Ultrasound (Routine) - Pending Review Specialty Diagnoses / Procedures Referred By Contac t Referred To Contact Radiology. Diagnoses Monochorionic diamniotic twin gestation Procedures MFM Twins US Comprehensive F/U Diane Lopez MD [address] [address] [address] Phone: tel: fax: Referral ID Status Reason Start Date Expiration Date V isits Requested Visits Authorized [id number] Pending Review 10/19/2024 10/19/2025 1 1 PRACTIC PHYSICIAN Reason for Visit * Diagnostic Imaging Ultrasound (Routine) - Pending Review Specialty Diagnoses / Procedures Referred By Noa lilly Referred To Contact Radiology. Diagnoses Monochorionic diamniotic twin gestation Procedures MFM Twins US Comprehensive F/U Diane Lopez MD [address] [place] [address] Phone: tel: fax: Referral ID Status Reason Start Date Expiration Date V isits Requested Visits Authorized [id number] Pending Review 10/19/2024 10/19/2025 1 1 Encounter Details Date Type Department Care Team (Latest Contact Info) Description 11/30/2024 1:31 PM SANIPRACTIC PHYSICIAN - 11/30/2024 11:59 PM SANIPRACTIC PHYSICIAN Hospital Encounter 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 [place] [address] [place] [phone] Nicole Núñez MD [address] [place] [address] 12/03/2024 2:45 PM SANIPRACTIC PHYSICIAN Office Visit [facility] Maternal Medicine [facility] [address] [place] [phone] Nicole Núñez MD [address] [place] [address] 12/06/2024 9:30 AM SANIPRACTIC PHYSICIAN Appointment [facility] M[facility] [address] [place] [phone] Nicole Núñez MD [address] [place] [address] 12/06/2024 10:00 AM SANIPRACTIC PHYSICIAN Office Visit [facility] [address] [place] [phone] Nicole Núñez MD [address] [place] [address] 12/13/2024 9:30 AM SANIPRACTIC PHYSICIAN Appointment [facility] [address] [place] [phone] Nicole Núñez MD [address] [place] [address] 12/13/2024 10:00 AM SANIPRACTIC PHYSICIAN Office Visit [facility] [place] [address] [place] [phone] Nicole Núñez MD [address] [place] [address] 12/19/2024 9:30 AM SANIPRACTIC PHYSICIAN Appointment [facility] Maternal Medicine [place] [address] [place] [phone] Nicole Núñez MD [address] [facility] [place] [address] 12/19/2024 10:00 AM SANIPRACTIC PHYSICIAN Office Visit [facility] M[facility] Medicine [place] [address] [place] [phone] Nicole Núñez MD [address] [facility] [place] [address] 12/28/2024 10:15 AM SANIPRACTIC PHYSICIAN Appointment [facility] Maternal Medicine [place] [address] [place] [phone] Diane Lopez MD [address] [address] [address] 12/28/2024 10:45 AM SANIPRACTIC PHYSICIAN Office Visit [facility] [place] [address] [place] [phone] Diane Lopez MD [address] [address] 01/11/2025 10:15 AM CDT Appointment [facility] M[facility] Medicine [place] [address] [facility] [address] [place] [phone] Diane Lopez MD [address] [place], [place] [phone] 01/11/2025 10:45 AM CDT Office Visit 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 Narrative 11/30/2024 8:09 PM [facility] Surveillance US ----- Pat. Name: HEATHER CHÁVEZ Study Date: 11/30/2024 2:04pm Pat. NO: [id number] Referring MD: PAMELA CUELLAR Site: Pad Extraction Tender: Kenyetta Lyons RDMS : 1995 Age: 29 [...] options at this time including referral to [facility] for consideration of laser procedure [...] discussed likely plan for delivery at the [place]. Return to primary provider for continued care. If you have questions regarding today's evaluation or if we can be of further service, please contact the [facility] Center. anomalies may be present but not detected I spent a total of 15 minutes (excluding the ultrasound interpretation) on the date of this encounter including preparing to see the patient (reviewing medical records/tests), in direct hash-qr-cvbj contact with the patient counseling and discussing the plan of care, documenting the visit in the electronic medical record, and communicating with other health technical healthcare consultant and/or care coordination. Procedure Note Nicole Núñez MD - 11/30/2024 Surveillance ----- Pat. Name: HEATHER CHÁVEZ Study Date: 11/30/2024 2:04pm Pat. NO: [id number] Referring MD: PAMELA CUELLAR Site: Pad Extraction Tender: Kenyetta Lyons RDMS : 1995 Age: 29 [...] options at this time including referral to [facility] for consideration oflaser procedure to [...] We also discussed likely plan for delivery [facility]. Return to primary provider for continued care. If you have questions regarding today's evaluation or if we can be offurther service, please contact the [facility]. anomalies may be present but not detected I spent a total of 15 minutes (excluding the ultrasound interpretation) onthe date of this encounter including preparing to see the patient(reviewing medical records/tests), in direct rqln-[id number] contact with the patient counseling and discussingthe plan of care, documenting the visit in the electronic medical record,and communicating with other health technical healthcare consultant and/or care coordination. IMPRESSION ----- Monochorionic diamniotic [...] depressed A waveand reversal. 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
--- OUTSIDE RECORDS SUMMARY | 2024-12-01 11:24 | XMS_ITS | Referral Summary ---
Author Organization [facility] Address [address] [place] [address]. [place] [address] Care Team Providers Care Acquisitions Librarian Name Role Phone No Ref-Primary, Physician Primary Care Provider Flower Amato MD Unavailable [phone] Encounters Date Type Department Care Team Description 11/30/2024 Office Visit [facility] [address] [place] [address] [address] [place] [phone] Luc Dominguez MD cardiac anomaly complicating , antepartum, fetus 1 (Primary Dx); cardiac anomaly complicating , antepartum, fetus 2 11/30/2024 Travel 11/30/2024 12:25 PM MECHANICAL PRODUCT ENGINEER - 11/30/2024 1:30 PM MECHANICAL PRODUCT ENGINEER Hospital Encounter [facility] [address] [place] [address] [phone] Yobani Crespo MD 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 Discharge Disposition: Home or Self Care 11/30/2024 2:45 PM MECHANICAL PRODUCT ENGINEER Office Visit [facility] [place] [address] [place] [phone] Nicole Núñez MD 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 (Primary Dx); Intrauterine growth restriction affecting antepartum care of mother in first trimester, fetus 2; Ductus venosus abnormality 11/30/2024 1:31 PM MECHANICAL PRODUCT ENGINEER - 11/30/2024 11:59 PM MECHANICAL PRODUCT ENGINEER Hospital Encounter [facility] [place] [address] [place] [phone] Nicole Núñez MD 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 Discharge Disposition: Home or Self Care 11/30/2024 12:00 PM MECHANICAL PRODUCT ENGINEER - 11/30/2024 12:24 PM MECHANICAL PRODUCT ENGINEER Hospital Encounter [facility] [address] [address] Yobani Crespo MD 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 Discharge Disposition: Home or Self Care 11/22/2024 Travel 11/22/2024 10:00 AM MECHANICAL PRODUCT ENGINEER Office Visit [facility] [place] [address] [place] [address] Nicole Núñez MD 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 (Primary Dx); Intrauterine growth restriction affecting antepartum care of mother in first trimester, fetus 2 11/22/2024 9:28 AM MECHANICAL PRODUCT ENGINEER - 11/22/2024 11:59 PM MECHANICAL PRODUCT ENGINEER Hospital Encounter [facility] [place] [address] [place] [address] Nicole Núñez MD 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 Discharge Disposition: Home or Self Care 11/14/2024 Travel 11/14/2024 11:30 AM MECHANICAL PRODUCT ENGINEER Office Visit [facility] [place] [address] [place] [address] Flower Amato MD 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 (Primary Dx); Discordant growth in twin gestation, fetus 2 of multiple gestation; Intrauterine growth restriction affecting antepartum care of mother in first trimester, fetus 2 11/14/2024 10:09 AM MECHANICAL PRODUCT ENGINEER - 11/14/2024 11:59 PM MECHANICAL PRODUCT ENGINEER Hospital Encounter [facility] [address] [place] [address] Flower Amato MD 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 Discharge Disposition: Home or Self Care 11/08/2024 Travel 11/08/2024 10:00 AM MECHANICAL PRODUCT ENGINEER Office Visit [facility] [address] [place] [address] Flor Dickson MD 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 (Primary Dx); Discordant growth in twin gestation, fetus 2 of multiple gestation 11/08/2024 9:24 AM MECHANICAL PRODUCT ENGINEER - 11/08/2024 11:59 PM MECHANICAL PRODUCT ENGINEER Hospital Encounter [facility] [place] [address] [place] [address] Flor Dickson MD 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 Discharge Disposition: Home or Self Care 11/02/2024 Travel 11/02/2024 2:00 PM MECHANICAL PRODUCT ENGINEER Office Visit [facility] [address] [place] [address] Yobani Crespo MD Nashif, Sereen, MD 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 (Primary Dx); Intrauterine growth restriction affecting antepartum care of mother in first trimester, fetus 2 11/02/2024 1:22 PM MECHANICAL PRODUCT ENGINEER - 11/02/2024 11:59 PM MECHANICAL PRODUCT ENGINEER Hospital Encounter [facility] [address] [place] [address] Yobani Crespo MD Nashif, Sereen, MD 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 Discharge Disposition: Home or Self Care 10/26/2024 Travel 10/26/2024 11:30 AM MECHANICAL PRODUCT ENGINEER Office Visit [facility] [address] [phone] Estrella Esteban MD 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 (Primary Dx); growth restriction antepartum 10/26/2024 11:00 AM MECHANICAL PRODUCT ENGINEER Ancillary Procedure [facility] [address] [place] [address] Estrella Esteban MD 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 10/19/2024 Travel 10/19/2024 11:30 AM MECHANICAL PRODUCT ENGINEER Office Visit [facility] [address] [place] [address] Yobani Crespo MD 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 (Primary Dx); growth restriction antepartum 10/19/2024 11:00 AM MECHANICAL PRODUCT ENGINEER - 10/19/2024 11:59 PM MECHANICAL PRODUCT ENGINEER Hospital Encounter [facility] [place] [address] [facility] [address] [place] [phone] Yobani Crespo MD related condition, antepartum Discharge Disposition: Home or Self Care 10/15/2024 PRE VISIT [facility] [place] [address] [facility] [address] [place] [phone] Debra Tran RN Ultrasound (2/3 complete-Twin , mono-di) 10/10/2024 Transcribe Orders [facility] [place] [address] [facility] [address] [place] [phone] Zakia Cuellar MD related condition, antepartum (Primary Dx) 10/09/[address] [facility] Information Management [address] [facility] [address] [place] [address] Scan, Non-Provider from Last 3 Months Allergies [...] on file Legal Sex Female 11:44 PM MECHANICAL PRODUCT ENGINEER Gender Identity Not on file Sexual Orientation Not on file Last Filed Vital Signs Vital Sign Reading Time Taken Comments Blood Pressure 127/77 12/08/2021 5:48 PM MECHANICAL PRODUCT ENGINEER Pulse 88 12/24/2023 3:35 PM MECHANICAL PRODUCT ENGINEER Temperature 37.1 C (98.7 F) 12/24/2023 3:35 PM MECHANICAL PRODUCT ENGINEER Respiratory Rate 16 12/24/2023 3:35 PM MECHANICAL PRODUCT ENGINEER Oxygen Saturation 98% 12/24/2023 3:35 PM MECHANICAL PRODUCT ENGINEER Inhaled Oxygen Concentration - - Weight 69.3 kg (152 lb 11.2 oz) 12/24/2023 3:35 PM MECHANICAL PRODUCT ENGINEER Height 165.1 cm (5' 5) 12/04/2021 10:1 0 PM MECHANICAL PRODUCT ENGINEER Body Mass Index 25.41 12/04/2021 10:10 PM MECHANICAL PRODUCT ENGINEER Plan of Treatment Upcoming Encounters Date Type Department Care Team (Late st Contact Info) Description 12/03/2024 2:15 PM MECHANICAL PRODUCT ENGINEER Appointment [facility] [place] [address] [place] [phone] Nicole Núñez MD [address] [place] [address] 12/03/2024 2:45 PM MECHANICAL PRODUCT ENGINEER Office Visit [facility] [address] [place] [address] Nicole Núñez MD [address] [place] [address] [phone] 12/06/2024 9:30 AM MECHANICAL PRODUCT ENGINEER Appointment [facility] [place] [address] [place] [phone] Nicole Núñez MD [address] [place] [address] 12/06/2024 10:00 AM MECHANICAL PRODUCT ENGINEER Office Visit [facility] [address] [place] [phone] Nicole Núñez MD [address] [place] [phone] 12/13/2024 9:30 AM MECHANICAL PRODUCT ENGINEER Appointment [facility] [address] [place] [phone] Nicole Núñez MD [address] [place] [address] 12/13/2024 10:00 AM MECHANICAL PRODUCT ENGINEER Office Visit [facility] [place] [address] [place] [phone] Nicole Núñez MD [address] [place] [address] 12/19/2024 9:30 AM MECHANICAL PRODUCT ENGINEER Appointment [facility] [place] [address] [place] [phone] Nicole Núñez MD [address] [facility] [place] [address] 12/19/2024 10:00 AM MECHANICAL PRODUCT ENGINEER Office Visit [facility] [place] [address] [place] [phone] Nicole Núñez MD [address] [facility] [place] [address] 12/28/2024 10:15 AM MECHANICAL PRODUCT ENGINEER Appointment [facility] [place] [address] [place] [phone] Yobani Crespo MD [address] [address] 12/28/2024 10:45 AM MECHANICAL PRODUCT ENGINEER Office Visit [facility] [place] [address] [place] [phone] Yobani Crespo MD [address] [address] 01/11/2025 10:15 AM CDT Appointment [facility] [place] [address] [place] [phone] Yobani Crespo MD [address] [place] [address] 01/11/2025 10:45 AM CDT Office Visit [facility] [address] [place] [phone] Yobani Crespo MD [address] [place], [place] [phone] Procedures Procedure Name Priority Date/Time Associated Diagnosis Comments MFM TWINS US COMPREHENSIVE F/U Routine 11/30/2024 3:11 PM MECHANICAL PRODUCT ENGINEER 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 ECHO COMPLETE Routine 11/30/2024 1 :46 PM MECHANICAL PRODUCT ENGINEER 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 ECHO COMPLETE Routine 11/30/2024 1 :46 PM MECHANICAL PRODUCT ENGINEER 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 MFM TWINS US COMPREHENSIVE F/U Routine 11/22/2024 11:09 AM MECHANICAL PRODUCT ENGINEER 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 MFM TWINS US COMPREHENSIVE Routine 11/14/2024 11:59 AM MECHANICAL PRODUCT ENGINEER 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 MFM TWINS US COMPREHENSIVE F/U Routine 11/08/2024 10:15 AM MECHANICAL PRODUCT ENGINEER 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 MFM TWINS US COMPREHENSIVE F/U Routine 11/02/2024 2:26 PM MECHANICAL PRODUCT ENGINEER 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 MFM TWINS US COMPREHENSIVE F/U Routine 10/26/2024 11:48 AM MECHANICAL PRODUCT ENGINEER 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 MFM TWINS US OB COMPLETE 2/3 TRI Routine 10/19/2024 1:39 PM MECHANICAL PRODUCT ENGINEER related condition, antepartum from Last 3 Months Results * MFM Twins US Comprehensive F/U (11/30/2024 3:11 PM MECHANICAL PRODUCT ENGINEER) Only the most recent of5 resultswithin the time period is included. Anatomical Region Laterality Modality Ultrasound 11/30/2024 2:04 PM MECHANICAL PRODUCT ENGINEER Impressions 11/30/2024 8:09 PM MECHANICAL PRODUCT ENGINEER IMPRESSION ----- Monochorionic diamniotic twin gestation at [...] wave and reversal. Narrative 11/30/2024 8:09 PM MECHANICAL PRODUCT ENGINEER Surveillance US ----- Pat. Name: DEANDRE LEYVA Study Date: 11/30/2024 2:04pm Pat. NO: [id number] Referring MD: ZAKIA CUELLAR Site: Pad Hand: Kenyetta Lyons RDMS : 1995 Age: 29 [...] options at this time including referral to [facility] for consideration of laser procedure to protect/optimize [...] discussed likely plan for delivery at the [facility]. Return to primary provider for continued care. If you have questions regarding today's evaluation or if we can be of further service, please contact the [facility]. anomalies may be present but not detected I spent a total of 15 minutes (excluding the ultrasound interpretation) on the date of this encounter including preparing to see the patient (reviewing medical records/tests), in direct kxyi-hi-jmhz contact with the patient counseling and discussing the plan of care, documenting the visit in the electronic medical record, and communicating with other health health care specialist and/or care coordination. Procedure Note Nicole Núñez MD - 11/30/2024 Surveillance US ----- Pat. Name: DEANDRE LEYVA Study Date: 11/30/2024 2:04pm Pat. NO: [id number] Referring MD: ZAKIA CUELLAR Site: Pad Hand: Kenyetta Lyons RDMS : 1995 Age: 29 [...] options at this time including referral to [facility] for consideration oflaser procedure to [...] We also discussed likely plan for delivery [facility]. Return to primary provider for continued care. If you have questions regarding today's evaluation or if we can be offurther service, please contact the [facility]. anomalies may be present but not detected I spent a total of 15 minutes (excluding the ultrasound interpretation) onthe date of this encounter including preparing to see the patient(reviewing medical records/tests), in direct cqtk-cw-mgek contact with the patient counseling and discussingthe plan of care, documenting the visit in the electronic medical record,and communicating with other health health care specialist and/or care coordination. IMPRESSION ----- Monochorionic [...] A waveand reversal. us Yobani Crespo MD [facility] US ORDERABLES Edited Result - Final * ECHO COMPLETE (11/30/2024 1:46 PM MECHANICAL PRODUCT ENGINEER) Anatomical Region Laterality Modality Echocardiography 11/30/2024 1:42 PM MECHANICAL PRODUCT ENGINEER Narrative 11/30/2024 2:07 PM MECHANICAL PRODUCT ENGINEER [id number]^ZAK^YOBANI Study ID: [id number] [facility] [address] [address] Echocardiogram Name: DEANDRE LEYVA Study Date: 11/30/2024 01:42 PM Patient Location: [facility] Gender: Female Patient Class: Outpatient : 1995 Age: 29 yrs Ordering Provider: YOBANI CRESPO Referring Provider: YOBANI CRESPO Performed By: Daphney Dao RDCS Reading Physician: Luc Dominguez MD Reason For Study: 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 Data: Number of fetuses: This is a twin gestation. Due date: 04/07/2025. Gestational age: 21w5d. Delivery at: [facility]. Specific Indication: echocardiogram performed for monochorionic diamniotic [...] to the left atrium. There is laminar yvaql-xm-fdaw shunting across the foramen ovale. Atrioventricular valves: [...] Procedure Note Luc Dominguez MD - 11/30/2024 [id number] [facility] [id number]^ZAK^YOBANI Study ID:[id number] [facility] [address] [address] Echocardiogram Name: DEANDRE LEYVA Study Date: 11/30/2024 01:42 PM Patient Location: [facility] Gender: Female Patient Class:Outpatient : 1995 Age: 29 yrs Ordering Provider: YOBANI CRESPO Referring Provider: YOBANI CRESPO Performed By: Daphney Dao [facility] Reading Physician: Luc Dominguez MD Reason For Study: Monochorionic diamniotic twin gestation in secondtrimester Data: Number of fetuses: This is a twin gestation. Due date: 04/07/2025. Gestational age: 21w5d. Delivery at: [facility]. Specific Indication: echocardiogram performed formonochorionic diamniotic twins. [...] breech position. The fetus [facility]. The heart is in left chest. [...] in to the left atrium. There is yjomqfeadmin-fp-etzm shunting across the foramen ovale. Atrioventricular valves: [...] Final * ECHO COMPLETE (11/30/2024 1:46 PM MECHANICAL PRODUCT ENGINEER) Anatomical Region Laterality Modality Echocardiography 11/30/2024 1:31 PM MECHANICAL PRODUCT ENGINEER Narrative 11/30/2024 2:02 PM [facility] [id number]^ZAK^YOBANI Study ID: [id number] [facility] [address] [address] Echocardiogram Name: DEANDRE LEYVA Study Date: 11/30/2024 01:31 PM Patient Location: [facility] Gender: Female Patient Class: Outpatient : 1995 Age: 29 yrs Ordering Provider: YOBANI CRESPO Referring Provider: YOBANI CRESPO Performed By: Daphney Dao RDCS Reading Physician: Luc Dominguez MD Reason For Study: 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 Data: Number of fetuses: This is a twin gestation. Due date: 04/07/2025. Gestational age: 21w5d. Delivery at: [facility]. Specific Indication: echocardiogram performed for monochorionic diamniotic [...] to the left atrium. There is laminar kapyc-bv-rbzn shunting across the foramen ovale. Atrioventricular valves: [...] Procedure Note Luc Dominguez MD - 11/30/2024 [id number]^ZAK^YOBANI Study ID:[id number] [facility] [place] [address] Echocardiogram Name: DEANDRE LEYVA Study Date: 11/30/2024 01:31 PM Patient Location: [facility] Gender: Female Patient Class:Outpatient : 1995 Age: 29 yrs Ordering Provider: YOBANI CRESPO Referring Provider: YOBANI CRESPO Performed By: Daphney Dao RDCS Reading Physician: Luc Dominguez MD Reason For Study: Monochorionic diamniotic twin gestation in secondtrimester Data: Number of fetuses: This is a twin gestation. Due date: 04/07/2025. Gestational age: 21w5d. Delivery at: [facility]. Specific Indication: echocardiogram performed formonochorionic diamniotic twins. [...] in to the left atrium. There is aelkdenrgxln-oz-lpvz shunting across the foramen ovale. Atrioventricular valves: [...] Edite d Result - Final * MFM [facility] Comprehensive (11/14/2024 11:59 AM MECHANICAL PRODUCT ENGINEER) Anatomical Region Laterality Modality Ultrasound 11/14/2024 10:2 4 AM MECHANICAL PRODUCT ENGINEER Impressions 11/14/2024 4:40 PM MECHANICAL PRODUCT ENGINEER IMPRESSION ----- Monochorionic diamniotic twin gestation at [...] anemia polycythemia syndrome. Narrative 11/14/2024 4:40 PM MECHANICAL PRODUCT ENGINEER Comprehensive ----- Pat. Name: DEANDRE LEYVA Study Date: 11/14/2024 10:24am Pat. NO: [id number] Referring MD: ZAKIA CUELLAR Site: Pad Hand: Emerita Corona RDMS : 1995 Age: 29 [...] 0 lb 11 oz EFW by Hadlock ([id number]) EFW discordance 30.6 % Head / Face / Neck Biometry: Academic Vice President 6.9 mm CM 2.6 mm Nasal bone [...] 0 lb 8 oz EFW by Hadlock ([id number]) EFW discordance 30.6 % Head / Face / Neck Biometry: Academic Vice President 6.8 mm CM 4.4 mm Extremities / [...] view. RVOT view. LVOT view. 3-vessel view. 7-fbjbqq-xbmunjo view. Situs. Aortic arch view. Bicaval view. [...] Thorax 4-chamber view. RVOT view. LVOT view. 8-xvwybr-aqvqlpx view. Aortic arch view. sex: female. Fetus [...] recommendation. She was again offered referral to [facility] for a second opinion/discussion about options in [...] the patient (reviewing medical records/tests), in direct tkik-xg-sqgo contact with the patient counseling and discussing the plan of care, documenting the visit in the electronic medical record, and communicating with other health health care specialist and/or care coordination. Please see note for details. Procedure Note Flower Amato MD - 11/14/2024 Comprehensive ----- Pat. Name: DEANDRE LEYVA Study Date: 11/14/2024 10:24am Pat. NO: [id number] Referring MD: ZAKIA CUELLAR Site: Pad Hand: Emerita Corona RDMS : 1995 Age: 29 [...] EFW (lb,oz) 0 lb 11oz EFW by Hadlock([id number]) EFW discordance 30.6% Head / Face / Neck Biometry: Academic Vice President 6.9mm CM 2.6mm Nasal bone 7.8mm Fetus 2: BIOMETRY ----- BPD 42.9mm 19w 0dHadlock OFD 55.1mm 18w 2dNicolaides HC 156.8mm 18w 4dHadlock Cerebellum tr 18.1mm 18w 0dNicolaides Nuchal fold 3.0mm AC 128.0mm 18w 3d 15%Hadlock Femur 24.5mm 17w 3dHadlock Humerus 23.5mm 17w 2dJeanty Weight Calculation: EFW 219g 2%Hadlock EFW (lb,oz) 0 lb 8oz EFW by Hadlock([id number]) EFW discordance 30.6% Head / Face / Neck Biometry: Academic Vice President 6.8mm CM 4.4mm Extremities / Bony Struc [...] 4-chamber view. RVOT view. LVOT view.3-vessel view. 2-koldty-tyuutmz view. Situs. Aortic arch view. Bicavalview. Ductal [...] / Thorax 4-chamber view. RVOT view. LVOT view.0-lbbbnz-tiiuhhg view. Aortic arch view. sex: female. Fetus [...] the recommendation. [facility] [...] see the patient(reviewing medical records/tests), in direct mute-ej-xhjq contact with the patient counseling and discussingthe plan of care, documenting the visit in the electronic medical record,and communicating with other health health care specialist and/or care coordination. Please see note for [...] anemia polycythemia syndrome. us Yobani Crespo MD [facility] US ORDERABLES Edited Result - Final * [facility] Twins US OB Complete 2/3 Tri (10/19/2024 1:39 PM MECHANICAL PRODUCT ENGINEER) Anatomical Region Laterality Modality Ultrasound 10/19/2024 11:0 2 AM MECHANICAL PRODUCT ENGINEER Impressions 10/21/2024 3:34 PM MECHANICAL PRODUCT ENGINEER IMPRESSION ----- Monochorionic diamniotic twin gestation at [...] long and closed. Narrative 10/21/2024 3:34 PM MECHANICAL PRODUCT ENGINEER Trim ----- Pat. Name: DEANDRE LEYVA Study Date: 10/19/2024 11:02am Pat. NO: [id number] Referring MD: ZAKIA CUELLAR Site: Pad Hand: Chantell Jarquin RDMS : 1995 Age: 29 [...] 0 lb 5 oz EFW by Hadlock ([id number]) EFW discordance 26.5 % Head / Face / Neck Biometry: Academic Vice President 6.3 mm CM 2.2 mm Nasal bone [...] 0 lb 4 oz EFW by Hadlock ([id number]) EFW discordance 26.5 % Head / Face / Neck Biometry: Academic Vice President 6.7 mm CM 2.5 mm Fetus 1: [...] Heart / Thorax 4-chamber view. 3-vessel view. 8-tpsqyy-kaixyat view. sex: female. Fetus 2: ANATOMY ----- [...] Profile. Nose. Maxilla. Mandible. Heart / Thorax 4-awqldn-tptafbh view. Aortic arch view. Bicaval view. Ductal [...] discussed the option a referral to the [facility] to discuss the option of [...] the patient (reviewing medical records/tests), in direct fjpg-bw-aevl contact with the patient during the visit counseling and discussing the plan of care and documenting the visit in the electronic medical record. Procedure Note Yobani Crespo MD - 10/22/2024 / Trim ----- Pat. Name: DEANDRE LEYVA Study Date: 10/19/2024 11:02am Pat. NO: [id number] Referring MD: ZAKIA CUELLAR Site: Pad Hand: Chantell Jarquin RDMS : 1995 Age: 29 [...] EFW (lb,oz) 0 lb 5oz EFW by Hadlock([id number]) EFW discordance 26.5% Head / Face / Neck Biometry: Academic Vice President 6.3mm CM 2.2mm Nasal bone 4.1mm Fetus 2: BIOMETRY ----- BPD 31.4mm 15w 6dHadlock OFD 38.8mm -/-Nicolaides HC 112.9mm 15w 3dHadlock Cerebellum tr 15.8mm 15w 6dNicolaides Nuchal fold 2.1mm AC 89.7mm 15w 1d 34%Hadlock Femur 16.0mm 14w 5dHadlock Humerus 16.1mm 14w 4dJeanty Weight Calculation: EFW 113g 9%Hadlock EFW (lb,oz) 0 lb 4oz EFW by Hadlock([id number]) EFW discordance 26.5% Head / Face / Neck Biometry: Academic Vice President 6.7mm CM 2.5mm Fetus 1: ANATOMY ----- [...] pellucidi. Heart / Thorax 4-chamber view. 3-vessel view.6-ibdjeq-uemepul view. sex: female. Fetus 2: ANATOMY ----- [...] Lips. Profile. Nose. Maxilla.Mandible. Heart / Thorax 8-kmpkkw-xpltijc view. Aortic archview. Bicaval view. Ductal arch [...] discussed the option a referral to the [facility] todiscuss the option of [facility] [...] see the patient(reviewing medical records/tests), in direct xijb-jn-xpxo contact with the patient during the visitcounseling [...] appears long and closed. Zakia Cuellar MD [facility] ORDERABLES Edited Re sult - Final from Last 3 Months Insurance [facility] Care Teams Acquisitions Librarian Relationship Specialty Start Date End Date No Ref-Primary, Physician PCP - General 12/04/21 Flower Amato MD [address] [place] [address] Assigned OBGYN Provider 11/22/24
--- OUTSIDE RECORDS SUMMARY | 2024-12-01 11:24 | XMS_ITS | Encounter Summary ---
Author Organization [facility] Address [address] [place] [address] Care Team Providers Care Racking Technician Name Role Phone No Ref-Primary, Physician Primary Care Provider Flower Amato MD Unavailable [phone] Encounter Details Date Type Department Care [...] on file Legal Sex Female 11:44 PM SPECIAL SKILLS OFFICER Gender Identity Not on file Sexual Orientation Not on file COVID-19 Exposure Response Date Recorded In the last month, have you been in contact with someone who was confirmed or suspected to have Coronavirus / COVID-19? No / Unsure 12/08/2021 5:46 PM SPECIAL SKILLS OFFICER documented as of this encounter Plan of Treatment Upcoming Encounters Date Type Department Care Team (Late st Contact Info) Description 12/03/2024 2:15 PM SPECIAL SKILLS OFFICER Appointment [facility] [place] [address] [place] [address] Nicole Núñez MD [address] [place], [place] [id number] 12/03/2024 2:45 PM SPECIAL SKILLS OFFICER Office Visit [facility] [place] [address] [place] [address] Nicole Núñez MD [address] [place] [address] 12/06/2024 9:30 AM SPECIAL SKILLS OFFICER Appointment [facility] Medicine [facility] [place] [address] [place] [phone] Nicole Núñez MD [address] [place] [address] 12/06/2024 10:00 AM SPECIAL SKILLS OFFICER Office Visit [facility] [place] [address] [place] [phone] Nicole Núñez MD [address] [place] [address] 12/13/2024 9:30 AM SPECIAL SKILLS OFFICER Appointment [facility] [place] [address] [place] [phone] Nicole Núñez MD [address] [place] [address] 12/13/2024 10:00 AM SPECIAL SKILLS OFFICER Office Visit [facility] [place] [address] [place] [phone] Nicole Núñez MD [address] [place] [address] 12/19/2024 9:30 AM SPECIAL SKILLS OFFICER Appointment [facility] [place] [address] [place] [phone] Nicole Núñez MD [address] [place] [address] 12/19/2024 10:00 AM SPECIAL SKILLS OFFICER Office Visit [facility] Maternal Medicine [place] [address] [place] [phone] Nicole Núñez MD [address] [place] [address] 12/28/2024 10:15 AM SPECIAL SKILLS OFFICER Appointment [facility] Maternal Medicine [place] [address] [place] [phone] Diane Lopez MD [address] [place] [address] 12/28/2024 10:45 AM SPECIAL SKILLS OFFICER Office Visit [facility] Maternal Medicine [place] [address] [place] [phone] Diane Lopez MD [address] [place] [address] 01/11/2025 10:15 AM CDT Appointment [facility] Maternal Medicine [place] [address] [place] [phone] Diane Lopez MD [address] [place] [address] 01/11/2025 10:45 AM CDT Office Visit [facility] Maternal Medicine [place] [address] [place] [phone] Diane Lopez MD [address] [place] [address] documented as of this encounter Visit Diagnoses Not on filedocumented in this encounter Care Teams Racking Technician Relationship Specialty Start Date End Date No Ref-Primary, Physician PCP - General 12/04/21 Flower Amato MD [address] [address] Assigned OBGYN Provider 11/22/24 documented as of this encounter
--- OUTSIDE RECORDS SUMMARY | 2024-12-01 11:24 | XMS_ITS | Encounter Summary ---
Author Organization [facility] Address [address] [place] [address] Care Team Providers Care Onion Tier Name Role Phone No Ref-Primary, Physician Primary [...] on file Legal Sex Female 11:44 PM FELT HOOKER Gender Identity Not on file Sexual Orientation Not on file documented as of this encounter Plan of Treatment Upcoming Encounters Date Type Department Care Team (Late st Contact Info) Description 12/03/2024 2:15 PM FELT HOOKER Appointment [facility] Maternal Medicine [facility] [place] [address] [place], [place] [address] [place] [phone] Nicole Núñez MD [address] [place] [phone] 12/03/2024 2:45 PM FELT HOOKER Office Visit [facility] [place] [address] [place] [address] [phone] Nicole Núñez MD [address] [place] [address] 12/06/2024 9:30 AM FELT HOOKER Appointment [facility] Maternal Medicine [place] [address] [place] [phone] Nicole Núñez MD [address] [place] [address] 12/06/2024 10:00 AM FELT HOOKER Office Visit [facility] Maternal Medicine [place] [address] [facility] [address] [place] [phone] Nicole Núñez MD [address] [place] [address] 12/13/2024 9:30 AM FELT HOOKER Appointment [facility] Maternal Medicine [place] [address] [place] [phone] Nicole úNñez MD [address] [place] [address] 12/13/2024 10:00 AM FELT HOOKER Office Visit [facility] Maternal Medicine [place] [address] [place] [phone] Nicole Núñez MD [address] [place] [address] 12/19/2024 9:30 AM FELT HOOKER Appointment [facility] Maternal Medicine [place] [address] [place] [phone] Nicole Núñez MD [address] [place] [address] 12/19/2024 10:00 AM FELT HOOKER Office Visit [facility] Maternal Medicine [place] [address] [place] [phone] Nicole Núñez MD [address] [place] [address] 12/28/2024 10:15 AM FELT HOOKER Appointment [facility] Medicine [place] [address] [place] [phone] Diane Lopez MD [address] [place], [place] [address] 12/28/2024 10:45 AM FELT HOOKER Office Visit [facility] Maternal Medicine [place] [address] [place] [phone] Diane Lopez MD [address] [place], [place] [address] 01/11/2025 10:15 AM CDT Appointment [facility] Medicine [place] [address] [facility] [address] [place] [phone] Diane Lopez MD [address] [place], [place] [address] 01/11/2025 10:45 AM CDT Office Visit [facility] Maternal Medicine [place] [address] [facility] [address] [place] [phone] Diane Lopez MD [address] [place], [place] [address] documented as of this encounter Visit Diagnoses Not on filedocumented in this encounter Care Teams Onion Tier Relationship Specialty Start Date End Date No Ref-Primary, Physician PCP - General 2/4/22 documented as of this encounter
--- OUTSIDE RECORDS SUMMARY | 2024-12-01 11:24 | XMS_ITS | Encounter Summary ---
Author Organization [facility] Address [address] [place] [address] Care Team Providers Care Mortising Machine Operator Name Role Phone No Ref-Primary, Physician Primary Care Provider Flower Amato MD Unavailable [phone] Reason for Referral * Diagnostic Imaging Ultrasound (Routine) - Pending Review Specialty Diagnoses / Procedures Referred By Noa lilly Referred To Contact Radiology. 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 Procedures MFM Twins Comprehensive F/U Nicole Núñez MD [address] [place] [address] Phone: tel: fax: Referral ID Status Reason Start Date Expiration Date V isits Requested Visits Authorized [id number] Pending Review 11/30/2024 11/30/2025 1 1 LING HOOD OPERATOR Reason for Visit * Reason Comments Ultrasound RL2/UAR/MCA-mono/di twins, fetus 2 with FGR Encounter Details Date Type Department Care Team (Latest Contact Info) Description 11/30/2024 2:45 PM CHILLING HOOD OPERATOR Office Visit [facility] Medicine [facility] [place] [address] [place] [address] Nicole Núñez MD [address] [place] [address] Monochorionic diamniotic twin gestation in [...] on file Legal Sex Female 11:44 PM CHILLING HOOD OPERATOR Gender Identity Not on file Sexual [...] the Maternal- Medicine Center. Nicole Núñez MD Diplomatic Interpreter, EVS MANAGER Maternal- Medicine LING HOOD OPERATOR documented in this encounter Nursing Notes * Rivka Jones RN - 11/30/2024 2:45 PM CST Patient reports positive movement x 2, denies pain, leaking of fluid, or bleeding. Education provided to patient on today's ultrasound. SBAR given to BLANCA MEDINA, see their note in Epic. LING HOOD OPERATOR documented in this encounter Plan of Treatment Upcoming Encounters Date Type Department Care Team (Late st Contact Info) Description 12/03/2024 2:15 PM CHILLING HOOD OPERATOR Appointment [facility] Medicine [facility] [place] [address] [place] [phone] Nicole Núñez MD [address] [place] [address] 12/03/2024 2:45 PM CHILLING HOOD OPERATOR Office Visit [facility] Maternal Medicine [facility] [address] [place] [address] Nicole Núñez MD [address] [place] [address] 12/06/2024 9:30 AM CHILLING HOOD OPERATOR Appointment [facility] Maternal Medicine [place] [address] [place] [phone] Nicole Núñez MD [address] [place] [address] 12/06/2024 10:00 AM CHILLING HOOD OPERATOR Office Visit [facility] Maternal Medicine [place] [address] [place] [phone] Nicole Núñez MD [address] [place] [address] 12/13/2024 9:30 AM CHILLING HOOD OPERATOR Appointment [facility] Maternal Medicine [place] [address] [place] [phone] Nicole Núñez MD [address] [place] [address] 12/13/2024 10:00 AM CHILLING HOOD OPERATOR Office Visit [facility] Maternal Medicine [facility] [address] [place] [phone] Nicole Núñez MD [address] [place] [address] 12/19/2024 9:30 AM CHILLING HOOD OPERATOR Appointment [facility] Maternal Medicine Center [place] [address] [place] [phone] Nicole Núñez MD [address] [place] [address] 12/19/2024 10:00 AM CHILLING HOOD OPERATOR Office Visit [facility] Maternal Medicine [place] [address] [facility] [address] [place] [phone] Nicole Núñez MD [address] [place] [address] 12/28/2024 10:15 AM CHILLING HOOD OPERATOR Appointment [facility] Maternal Medicine [place] [address] [place] [phone] Diane Lopez MD [address] [place] [address] 12/28/2024 10:45 AM CHILLING HOOD OPERATOR Office Visit [facility] Maternal Medicine [place] [address] [place] [phone] Diane Lopez MD [address] [place] [address] 01/11/2025 10:15 AM CDT Appointment [facility] Maternal Medicine [place] [address] [place] [phone] Diane Lopez MD [address] [place] [address] 01/11/2025 10:45 AM CDT Office Visit [facility] Maternal Medicine [place] [address] [place] [phone] Diane Lopez MD [address] [place], [place] [address] Scheduled Orders Name Type Priority Associated Diagnoses [...] abnormality documented in this encounter Care Teams Mortising Machine Operator Relationship Specialty Start Date End Date No Ref-Primary, Physician PCP - General 12/04/21 Flower Amato MD [address] [place], [place] [address] Assigned OBGYN Provider 11/22/24 documented as of this encounter
--- OUTSIDE RECORDS SUMMARY | 2024-12-01 11:24 | XMS_ITS | Encounter Summary ---
Author Organization [facility] Address [address] [place] [address] Care Team Providers Care Airline Operations Agent Name Role Phone No Ref-Primary, Physician Primary Care Provider Flower Amato MD Unavailable [phone] Encounter Details Date Type Department Care Team (Late st Contact Info) Description 11/30/2024 Office Visit [facility] [address] [facility] [address] [place] [phone] Luc Dominguez MD [address] [place] [address] cardiac anomaly complicating , antepartum, fetus [...] on file Legal Sex Female 11:44 PM FLIGHT MANAGER Gender Identity Not on file Sexual Orientation Not on file documented as of this encounter Progress Notes * Luc Dominguez MD - 11/30/2024 1:03 PM CST [facility] Consult Note Patient: Heather Chávez Date of : 1995 Age: [age] year old Date of Visit: 11/30/2024 PCP: No Ref-Primary, Physician Dear No ref. provider found: I had the pleasure of seeing Heather Chávez at the [facility] on 11/30/2024 in cardiology consultation for echocardiogram results. She presented today accompanied by her sister in law. As you know, she is a 29 year old at 21w5d who presented for echocardiogram today because of Ellis-Di twins. I performed and interpreted the echocardiogram [...] care. I spent approximately 45 minutes in yaho-su-drhh time reviewing the above considerations. Kade Dominguez M.D. Pediatric Cardiology [address] Academic Office Building 4th floor, [facility] [address] HT MANAGER documented in this encounter Plan of Treatment Upcoming Encounters Date Type Department Care Team (Late st Contact Info) Description 12/03/2024 2:15 PM FLIGHT MANAGER Appointment [facility] Maternal Medicine [facility] [address] [place] [phone] Nicole Núñez MD [address] [place] [address] 12/03/2024 2:45 PM FLIGHT MANAGER Office Visit [facility] Maternal Medicine [facility] [address] [place] [address] Nicole Núñez MD [address] [place] [address] 12/06/2024 9:30 AM FLIGHT MANAGER Appointment [facility] Maternal Medicine [facility] [address] [facility] [address] [place] [phone] Nicole Núñez MD [address] [place] [address] 12/06/2024 10:00 AM FLIGHT MANAGER Office Visit [facility] Maternal Medicine [facility] [address] [place] [phone] Nicole Núñez MD [address] [place] [address] 12/13/2024 9:30 AM FLIGHT MANAGER Appointment [facility] Maternal Medicine [facility] [address] [place] [phone] Nicole Núñez MD [address] [place] [address] 12/13/2024 10:00 AM FLIGHT MANAGER Office Visit [facility] Maternal Medicine [place] [address] [facility] [address] [place] [phone] Nicole Núñez MD [address] [place] [address] 12/19/2024 9:30 AM FLIGHT MANAGER Appointment [facility] Maternal Medicine [place] [address] [facility] [address] [place] [phone] Nicole Núñez MD [address] [facility] [place] [address] 12/19/2024 10:00 AM FLIGHT MANAGER Office Visit [facility] Maternal Medicine [place] [address] [facility] [address] [place] [phone] Nicole Núñez MD [address] [address] 12/28/2024 10:15 AM FLIGHT MANAGER Appointment [facility] Maternal Medicine [place] [address] [place] [phone] Diane Lopez MD [address] [address] 12/28/2024 10:45 AM FLIGHT MANAGER Office Visit [facility] Maternal Medicine [place] [address] [place] [phone] Diane Lopez MD [address] [address] 01/11/2025 10:15 AM CDT Appointment [facility] Maternal [facility] [place] [address] [place] [phone] Diane Lopez MD [address] [place], [place] [phone] 01/11/2025 10:45 AM CDT Office Visit [facility] Maternal Medicine [facility] [address] [place] [phone] Diane Lopez MD [address] [place], [place] [id number] documented as of this encounter Visit Diagnoses Diagnosis cardiac anomaly complicating , antepartum, fetus 1- Primary cardiac anomaly complicating , antepartum, fetus 2 documented in this encounter Care Teams Airline Operations Agent Relationship Specialty Start Date End Date No Ref-Primary, Physician PCP - General 12/04/21 Flower Amato MD [address] [place] [address] Assigned OBGYN Provider 11/22/24 documented as of this encounter
--- OUTSIDE RECORDS SUMMARY | 2024-12-01 11:25 | XMS_ITS | Encounter Summary ---
Author Organization [facility] Address [address] [place] [address] Care Team Providers Care Forensic Scientist Name Role Phone No Ref-Primary, Physician Primary Care Provider Flower Amato MD Unavailable [phone] Reason for Referral * CV Testing (Routine) - Closed Specialty Diagnoses / Procedures Referred By Contac t Referred To Contact Cardiology Diagnoses Monochorionic diamniotic twin gestation Procedures Echo (TTE) Complete Yobani Lopez MD [address] [place] [address] Phone: tel: fax: [facility] [address] [address] Phone: tel: Referral ID Status Reason Start Date Expiration Date Visits Re quested Visits Authorized [id number] Closed 10/19/2024 10/19/2025 1 1 BACK COORDINATOR Reason for Visit * CV Testing (Routine) - Closed Specialty Diagnoses / Procedures Referred By Contac t Referred To Contact Cardiology Diagnoses Monochorionic diamniotic twin gestation Procedures Echo (TTE) Yobani Olivares MD [address] [place] [address] Phone: tel: fax: [facility] [address] [place] [address] Phone: tel: Referral ID Status Reason Start Date Expiration Date Visits Re quested Visits Authorized [id number] Closed 10/19/2024 10/19/2025 1 1 Encounter Details Date Type Department Care Team (Latest Contact Info) Description 11/30/2024 12:00 PM LOOKBACK COORDINATOR - 11/30/2024 12:24 PM LOOKBACK COORDINATOR Hospital Encounter [facility] [address] [place] [phone] Yobani Lopez MD 606 [address] [address] [place] [address] Monochorionic diamniotic twin gestation in [...] on file Legal Sex Female 11:44 PM LOOKBACK COORDINATOR Gender Identity Not on file Sexual [...] st Contact Info) Description 12/03/2024 2:15 PM LOOKBACK COORDINATOR Appointment [facility] Maternal Medicine [facility] [address] [place] [phone] Nicole Núñez MD [address] [place] [address] 12/03/2024 2:45 PM LOOKBACK COORDINATOR Office Visit [facility] Maternal Medicine [facility] [address] [place] [address] Nicole Núñez MD [address] [place] [address] 12/06/2024 9:30 AM LOOKBACK COORDINATOR Appointment [facility] Maternal Medicine [facility] [address] [facility] [address] [place] [phone] Nicole Núñez MD [address] [place] [address] 12/06/2024 10:00 AM LOOKBACK COORDINATOR Office Visit [facility] Maternal Medicine [facility] [address] [facility] [address] [place] [phone] Nicole Núñez MD [address] [place] [address] 12/13/2024 9:30 AM LOOKBACK COORDINATOR Appointment [facility] Maternal Medicine [place] [address] [place] [phone] Nicole Núñez MD [address] [facility] [place] [address] 12/13/2024 10:00 AM LOOKBACK COORDINATOR Office Visit [facility] Maternal Medicine [place] [address] [place] [phone] Nicole Núñez MD [address] [facility] [place] [address] 12/19/2024 9:30 AM LOOKBACK COORDINATOR Appointment [facility] Maternal Medicine [place] [address] [place] [phone] Nicole Núñez MD [address] [facility] [place] [address] 12/19/2024 10:00 AM LOOKBACK COORDINATOR Office Visit [facility] Maternal Medicine [place] [address] [place] [phone] Nicole Núñez MD [address] [facility] [place] [address] 12/28/2024 10:15 AM LOOKBACK COORDINATOR Appointment [facility] Medicine [facility] [place] [address] [place] [phone] Yobani Lopez MD [address] [address] 12/28/2024 10:45 AM LOOKBACK COORDINATOR Office Visit [facility] Medicine [facility] [place] [address] [place] [phone] Yobani Lopez MD [address] [place] [address] 01/11/2025 10:15 AM CDT Appointment [facility] Maternal Medicine [facility] [address] [place] [phone] Yobani Lopez MD [address] [place], [place] [address] 01/11/2025 10:45 AM CDT Office Visit [facility] Maternal Medicine [facility] [address] [place] [address] Yobani Lopez MD [address] [place], [place] [address] documented as of this encounter Procedures Procedure Name Priority Date/Time Associated Diagnosis Comments ECHO COMPLETE Routine 11/30/2024 1 :46 PM LOOKBACK COORDINATOR 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 Due date: 04/07/2025. Gestational age: 21w5d. Delivery at: [place]. Specific Indication: echocardiogram performed for monochorionic diamniotic [...] to the left atrium. There is laminar fljpx-kc-mfwz shunting across the foramen ovale. Atrioventricular valves: [...] Procedure Note Luc Dominguez MD - 11/30/2024 [id number]^[id number] Study ID:[id number] [facility] [place] [address] Echocardiogram Name: HEATHER CHÁVEZ Study Date: 11/30/2024 01:31 PM Patient Location: [facility] Gender: Female Patient Class:Outpatient : [id number] Age: 29 yrs Ordering Provider: YOBANI LOPEZ Referring Provider: YOBANI LOPEZ Performed By: Daphney Dao RDCS Reading Physician: Luc Dominguez MD Reason For Study: Monochorionic diamniotic twin gestation in secondtrimester Data: Number of fetuses: This is a twin gestation. Due date: 04/07/2025. Gestational age: 21w5d. Delivery at: [place]. Specific Indication: echocardiogram performed formonochorionic diamniotic twins. [...] in to the left atrium. There is ctpiiukbjbgy-fd-oxdr shunting across the foramen ovale. Atrioventricular valves: [...] trimester documented in this encounter Care Teams Forensic Scientist Relationship Specialty Start Date End Date No Ref-Primary, Physician PCP - General 12/04/21 Flower Amato MD [facility] [address] [address] Assigned OBGYN Provider 11/22/24 documented as of this encounter
--- OUTSIDE RECORDS SUMMARY | 2024-12-01 11:25 | XMS_ITS | Encounter Summary ---
Author Organization [facility] Address [address] [place] [address] Care Team Providers Care Radiologic Electronic Specialist Name Role Phone No Ref-Primary, Physician [...] on file Legal Sex Female 11:44 PM BIOMETRIC FINGERPRINTING TECHNICIAN Gender Identity Not on file Sexual Orientation Not on file documented as of this encounter Plan of Treatment Upcoming Encounters Date Type Department Care Team (Late st Contact Info) Description 12/03/2024 2:15 PM BIOMETRIC FINGERPRINTING TECHNICIAN Appointment [facility] Maternal Medicine [facility] [place] [address] [place], [place] [address] [place] [phone] Nicole Núñez MD [address] [place] [phone] 12/03/2024 2:45 PM BIOMETRIC FINGERPRINTING TECHNICIAN Office Visit [facility] [place] [address] [place] [phone] Nicole Núñez MD [address] [place] [address] 12/06/2024 9:30 AM BIOMETRIC FINGERPRINTING TECHNICIAN Appointment [facility] Maternal Medicine [place] [address] [place] [phone] Nicole Núñez MD [address] [place] [address] 12/06/2024 10:00 AM BIOMETRIC FINGERPRINTING TECHNICIAN Office Visit [facility] Maternal Medicine [place] [address] [facility] [address] [place] [phone] Nicole Núñez MD [address] [place] [address] 12/13/2024 9:30 AM BIOMETRIC FINGERPRINTING TECHNICIAN Appointment [facility] Maternal Medicine [place] [address] [place] [phone] Nicole Núñez MD [address] [place] [address] 12/13/2024 10:00 AM BIOMETRIC FINGERPRINTING TECHNICIAN Office Visit [facility] Maternal Medicine [place] [address] [place] [phone] Nicole Núñez MD [address] [place] [address] 12/19/2024 9:30 AM BIOMETRIC FINGERPRINTING TECHNICIAN Appointment [facility] Maternal Medicine [place] [address] [place] [phone] Nicole Núñez MD [address] [place] [address] 12/19/2024 10:00 AM BIOMETRIC FINGERPRINTING TECHNICIAN Office Visit [facility] Maternal Medicine [place] [address] [place] [phone] Nicole Núñez MD [address] [place] [address] 12/28/2024 10:15 AM BIOMETRIC FINGERPRINTING TECHNICIAN Appointment [facility] Medicine [place] [address] [place] [phone] Diane Lopez MD [address] [place], [place] [address] 12/28/2024 10:45 AM BIOMETRIC FINGERPRINTING TECHNICIAN Office Visit [facility] Maternal Medicine [place] [address] [place] [phone] Diane Lopez MD [address] [place], [place] [address] 01/11/2025 10:15 AM CDT Appointment [facility] Medicine [place] [address] [facility] [address] [place] [phone] Diane Lopez MD [address] [place], [place] [address] 01/11/2025 10:45 AM CDT Office Visit [facility] Maternal Medicine [place] [address] [facility] [address] [place] [phone] Diane Lopez MD [address] [place], [place] [address] documented as of this encounter Visit Diagnoses Not on filedocumented in this encounter Care Teams Radiologic Electronic Specialist Relationship Specialty Start Date End Date No Ref-Primary, Physician PCP - General 2/4/22 documented as of this encounter
--- OUTSIDE RECORDS SUMMARY | 2024-12-01 11:25 | XMS_ITS | Encounter Summary ---
Author Organization [facility] Address [address] [place] [address] Care Team Providers Care Data Management Analyst Name Role Phone No Ref-Primary, Physician Primary Care Provider Reason for Referral * Diagnostic Imaging Ultrasound (Routine) - Pending Review Specialty Diagnoses / Procedures Referred By Noa lilly Referred To Contact Radiology. Diagnoses related condition, antepartum Procedures MFM Twins US OB Complete 2/3 Tri Pamela Cuellar MD [facility] [address] [place] [address] Phone: tel: fax: Referral ID Status Reason Start Date Expiration Date V isits Requested Visits Authorized [id number] Pending Review 10/10/2024 10/10/2025 1 1 R ASSEMBLER Reason for Visit * Diagnostic Imaging Ultrasound (Routine) - Pending Review Specialty Diagnoses / Procedures Referred By Noa lilly Referred To Contact Radiology. Diagnoses related condition, antepartum Procedures MFM Twins US OB Complete 2/3 Tri Pamela Cuellar MD [facility] [address] [place] [address] Phone: tel: fax: Referral ID Status Reason Start Date Expiration Date V isits Requested Visits Authorized [id number] Pending Review 10/10/2024 10/10/2025 1 1 Encounter Details Date Type Department Care Team (Latest Contact Info) Description 10/19/2024 11:00 AM DATER ASSEMBLER - 10/19/2024 11:59 PM DATER ASSEMBLER Hospital Encounter [facility] Maternal Medicine Center [place] [address] [facility] [address] [place] [address] Diane Lopez MD [address] [place], [place] [address] related condition, antepartum Discharge Disposition: Home or [...] on file Legal Sex Female 11:44 PM DATER ASSEMBLER Gender Identity Not on file Sexual [...] st Contact Info) Description 12/03/2024 2:15 PM DATER ASSEMBLER Appointment [facility] [place] [address] [place] [phone] Nicole Núñez MD [address] [place] [address] 12/03/2024 2:45 PM DATER ASSEMBLER Office Visit [facility] Maternal Medicine [facility] [address] [place] [address] Nicole Núñez MD [address] [place] [address] 12/06/2024 9:30 AM DATER ASSEMBLER Appointment [facility] Maternal Medicine [facility] [address] [place] [phone] Nicole Núñez MD [address] [place] [address] 12/06/2024 10:00 AM DATER ASSEMBLER Office Visit [facility] Maternal Medicine [facility] [address] [place] [phone] Nicole Núñez MD [address] [place] [address] 12/13/2024 9:30 AM DATER ASSEMBLER Appointment [facility] Maternal Medicine [facility] [address] [place] [phone] Nicole Núñez MD [address] [place] [address] 12/13/2024 10:00 AM DATER ASSEMBLER Office Visit [facility] Maternal Medicine [facility] [place] [address] [place] [phone] Nicole Núñez MD [address] [place] [address] 12/19/2024 9:30 AM DATER ASSEMBLER Appointment [facility] Maternal Medicine [place] [address] [place] [phone] Nicole Núñez MD [address] [place] [address] 12/19/2024 10:00 AM DATER ASSEMBLER Office Visit [facility] Maternal Medicine [place] [address] [place] [phone] Nicole Núñez MD [address] [place] [address] 12/28/2024 10:15 AM DATER ASSEMBLER Appointment [facility] Maternal Medicine [place] [address] [place] [phone] Diane Lopez MD [address] [address] 12/28/2024 10:45 AM DATER ASSEMBLER Office Visit [facility] Maternal Medicine [place] [address] [place] [phone] Diane Lopez MD [address] [place] [address] 01/11/2025 10:15 AM CDT Appointment [facility] Maternal Medicine [place] [address] [place] [phone] Diane Lopez MD [address] [place] [address] 01/11/2025 10:45 AM CDT Office Visit [facility] Medicine [facility] [place] [address] [place] [address] Diane Lopez MD [address] [place], [place] [address] documented as of this encounter Procedures Procedure Name Priority Date/Time Associated Diagnosis Comments MFM TWINS US OB COMPLETE 2/3 TRI Routine 10/19/2024 1:39 PM DATER ASSEMBLER related condition, antepartum documented in this encounter Results * MFM Twins US OB Complete 2/3 Tri (10/19/2024 1:39 PM DATER ASSEMBLER) Anatomical Region Laterality Modality Ultrasound 10/19/2024 11:0 2 AM DATER ASSEMBLER Impressions 10/21/2024 3:34 PM DATER ASSEMBLER IMPRESSION ----- Monochorionic diamniotic twin gestation [...] long and closed. Narrative 10/21/2024 3:34 PM DATER ASSEMBLER Trim ----- Pat. Name: HEATHER CHÁVEZ Study Date: 10/19/2024 11:02am Pat. NO: [id number] Referring MD: PAMELA CUELLAR Site: Cinder Worker: Chantell Jarquin RDMS : 1995 Age: [...] 0 lb 5 oz EFW by Hadlock ([id number]) EFW discordance 26.5 % Head / Face / Neck Biometry: Information Technology Coordinator 6.3 mm CM 2.2 mm Nasal bone 4.1 mm Fetus 2: BIOMETRY ----- BPD 31.4 mm 15w 6d Hadlock OFD 38.8 mm -/- Nicolaides HC 112.9 mm 15w 3d Hadlock Cerebellum tr 15.8 mm 15w 6d Nicolaides Nuchal fold 2.1 mm AC 89.7 mm 15w 1d 34% Hadlock Femur 16.0 mm 14w 5d [facility]lock Humerus 16.1 mm 14w 4d [facility] Weight Calculation: EFW 113 g 9% Hadlock EFW (lb,oz) 0 lb 4 oz EFW by Hadlock ([id number]) EFW discordance 26.5 % Head / Face / Neck Biometry: Information Technology Coordinator 6.7 mm CM 2.5 mm Fetus 1: [...] Heart / Thorax 4-chamber view. 3-vessel view. 1-ytjdbu-fkzbpju view. sex: female. Fetus 2: ANATOMY ----- [...] Profile. Nose. Maxilla. Mandible. Heart / Thorax 2-anzkgk-jlidmda view. Aortic arch view. Bicaval view. Ductal [...] discussed the option a referral to the [place] [facility] to discuss the option of [...] the patient (reviewing medical records/tests), in direct aryj-bf-gppp contact with the patient during the visit counseling and discussing the plan of care and documenting the visit in the electronic medical record. Procedure Note Diane Lopez MD - 10/22/2024 / Trim ----- Pat. Name: HEATHER CHÁVEZ Study Date: 10/19/2024 11:02am Pat. NO: [id number] Referring MD: PAMELA CUELLAR Site: Cinder Worker: Chantell Jarquin RDMS : 1995 Age: [...] EFW (lb,oz) 0 lb 5oz EFW by Hadlock([id number]) EFW discordance 26.5% Head / Face / Neck Biometry: Information Technology Coordinator 6.3mm CM 2.2mm Nasal bone 4.1mm Fetus 2: BIOMETRY ----- BPD 31.4mm 15w 6dHadlock OFD 38.8mm -/-Nicolaides HC 112.9mm 15w 3dHadlock Cerebellum tr 15.8mm 15w 6dNicolaides Nuchal fold 2.1mm AC 89.7mm 15w 1d 34%Hadlock Femur 16.0mm 14w 5dHadlock Humerus 16.1mm 14w 4dJeanty Weight Calculation: EFW 113g 9%Hadlock EFW (lb,oz) 0 lb 4oz EFW by Hadlock([id number]-FL) EFW discordance 26.5% Head / Face / Neck Biometry: Information Technology Coordinator 6.7mm CM 2.5mm Fetus 1: ANATOMY ----- [...] pellucidi. Heart / Thorax 4-chamber view. 3-vessel view.6-nxtfew-lafaaqv view. sex: female. Fetus 2: ANATOMY ----- [...] Lips. Profile. Nose. Maxilla.Mandible. Heart / Thorax 2-jqeijy-axgdtrk view. Aortic archview. Bicaval view. Ductal arch [...] discussed the option a referral to the [place] [facility] center todiscuss the option of SLFP [...] see the patient(reviewing medical records/tests), in direct ohxq-qt-erkl contact with the patient during the visitcounseling [...] imaging the cervix appears long and closed. [facility] Tim Cuellar MD [facility] ORDERABLES Edited Re sult - Final documented in this encounter Visit Diagnoses Diagnosis related condition, antepartum documented in this encounter Care Teams Data Management Analyst Relationship Specialty Start Date End Date No Ref-Primary, Physician PCP - General 12/04/21 documented as of this encounter
--- OUTSIDE RECORDS SUMMARY | 2024-12-01 11:25 | XMS_ITS | Encounter Summary ---
Author Organization [facility] Address [address] [place] [address] Care Team Providers Care Motor Vehicle Field Representative Name Role Phone No Ref-Primary, Physician Primary Care Provider Reason for Referral * Diagnostic Imaging Ultrasound (Routine) - Pending Review Specialty Diagnoses / Procedures Referred By Contac t Referred To Contact Radiology. Diagnoses Monochorionic diamniotic twin gestation Procedures MFM Twins US Comprehensive F/U Yobani Crespo MD [address] [place] [address] Phone: tel: fax: Referral ID Status Reason Start Date Expiration Date V isits Requested Visits Authorized [id number] Pending Review 10/19/2024 10/19/2025 1 1 VINER MECHANIC * Diagnostic Imaging Ultrasound (Routine) - Pending Review Specialty Diagnoses / Procedures Referred By Contac t Referred To Contact Radiology. Diagnoses Monochorionic diamniotic twin gestation Procedures MFM Twins US Comprehensive F/U Yobani Crespo MD [address] [place] [address] Phone: tel: fax: Referral ID Status Reason Start Date Expiration Date V isits Requested Visits Authorized [id number] Pending Review 10/19/2024 10/19/2025 1 1 VINER MECHANIC * Diagnostic Imaging Ultrasound (Routine) - Pending Review Specialty Diagnoses / Procedures Referred By Contac t Referred To Contact Radiology. Diagnoses Monochorionic diamniotic twin gestation Procedures MFM Twins US Comprehensive F/U Yobani Crespo MD [address] [place] [address] Phone: tel: fax: Referral ID Status Reason Start Date Expiration Date V isits Requested Visits Authorized [id number] Pending Review 10/19/2024 10/19/2025 1 1 VINER MECHANIC * Diagnostic Imaging Ultrasound (Routine) - Pending Review Specialty Diagnoses / Procedures Referred By Contac t Referred To Contact Radiology. Diagnoses Monochorionic diamniotic twin gestation Procedures MFM Twins US Alivia F/U Yobani Crespo MD [address] [place] [address] Phone: tel: fax: Referral ID Status Reason Start Date Expiration Date V isits Requested Visits Authorized [id number] Pending Review 10/19/2024 10/19/2025 1 1 VINER MECHANIC * Diagnostic Imaging Ultrasound (Routine) - Pending Review Specialty Diagnoses / Procedures Referred By Contac t Referred To Contact Radiology. Diagnoses Monochorionic diamniotic twin gestation Procedures MFM Twins US Comprehensive F/U Yobani Crespo MD [address] [place] [address] Phone: tel: fax: Referral ID Status Reason Start Date Expiration Date V isits Requested Visits Authorized [id number] Pending Review 10/19/2024 10/19/2025 1 1 VINER MECHANIC * CV Testing (Routine) - Closed Specialty Diagnoses / Procedures Referred By Contac t Referred To Contact Cardiology Diagnoses Monochorionic diamniotic twin gestation Procedures Echo (TTE) Complete Yobani Crespo MD [address] [place] [address] Phone: tel: fax: [facility] [address] [place] [phone] Phone: tel: Referral ID Status Reason Start Date Expiration Date Visits Re quested Visits Authorized [id number] Closed 10/19/2024 10/19/2025 1 1 VINER MECHANIC * CV Testing (Routine) - Closed Specialty Diagnoses / Procedures Referred By Noa lilly Referred To Contact Cardiology Diagnoses Monochorionic diamniotic twin gestation Procedures Echo (TTE) Complete Yobani Crespo MD [address] [place] [address] Phone: tel: fax: [facility] [address] [phone] Phone: tel: Referral ID Status Reason Start Date Expiration Date Visits Re quested Visits Authorized [id number] Closed 10/19/2024 10/19/2025 1 1 VINER MECHANIC * Diagnostic Imaging Ultrasound (Routine) - Pending Review Specialty Diagnoses / Procedures Referred By Noa lilly Referred To Contact Radiology. Diagnoses Monochorionic diamniotic twin gestation Procedures MFM Twins US Comprehensive F/U Yobani Crespo MD [address] [place] [address] Phone: tel: fax: Referral ID Status Reason Start Date Expiration Date V isits Requested Visits Authorized [id number] Pending Review 10/19/2024 10/19/2025 1 1 VINER MECHANIC * Diagnostic Imaging Ultrasound (Routine) - Pending Review Specialty Diagnoses / Procedures Referred By Noa lilly Referred To Contact Radiology. Diagnoses Monochorionic diamniotic twin gestation Procedures MFM Twins Comprehensive Yobani Crespo MD [address] [place] [address] Phone: tel: fax: Referral ID Status Reason Start Date Expiration Date V isits Requested Visits Authorized [id number] Pending Review 10/19/2024 10/19/2025 1 1 VINER MECHANIC * Diagnostic Imaging Ultrasound (Routine) - Pending Review Specialty Diagnoses / Procedures Referred By Noa lilly Referred To Contact Radiology. Diagnoses Monochorionic diamniotic twin gestation Procedures MFM Twins Comprehensive F/U Yobani Crespo MD [address] [place] [address] Phone: tel: fax: Referral ID Status Reason Start Date Expiration Date V isits Requested Visits Authorized [id number] Pending Review 10/19/2024 10/19/2025 1 1 VINER MECHANIC Reason for Visit * Reason Comments Ultrasound 2/3 complete-M/D twi ns Encounter Details Date Type Department Care Team (Latest Contact Info) Description 10/19/2024 11:30 AM PEA VINER MECHANIC Office Visit [facility] [place] [address] [place] [address] Yobani Crespo MD [address] [place] [address] Monochorionic diamniotic twin gestation in [...] on file Legal Sex Female 11:44 PM PEA VINER MECHANIC Gender Identity Not on file Sexual Orientation Not on file documented as of this encounter Progress Notes * Yobani Crespo MD - 10/19/2024 11:30 AM CST Please see Imaging tab under Chart Review for details of today's visit. Yobani Crespo VINER MECHANIC documented in this encounter Nursing Notes * Debra Tran, RN - 10/19/2024 11:30 AM CST Patient presents to [facility] for 2/3 complete at 15w5d due to M/D twins. Positive movement. DeniesLOF, vaginal bleeding or cramping/contractions. SBAR given to [facility] MD, see their note in Epic. VINER MECHANIC documented in this encounter Plan of Treatment Upcoming Encounters Date Type Department Care Team (Late st Contact Info) Description 12/03/2024 2:15 PM PEA VINER MECHANIC Appointment [facility] [place] [address] [place] [address] Nicole Núñez MD [address] [place], [place] [phone] 12/03/2024 2:45 PM PEA VINER MECHANIC Office Visit [facility] [place] [address] [place] [address] Nicole Núñez MD [address] [place] [address] 12/06/2024 9:30 AM PEA VINER MECHANIC Appointment [facility] [address] [place] [address] Nicole Núñez MD [address] [place] [address] 12/06/2024 10:00 AM PEA VINER MECHANIC Office Visit [facility] [place] [address] [place] [phone] Nicole Núñez MD [address] [place] [address] 12/13/2024 9:30 AM PEA VINER MECHANIC Appointment [facility] [place] [address] [place] [phone] Nicole Núñez MD [address] [place] [address] 12/13/2024 10:00 AM PEA VINER MECHANIC Office Visit [facility] [place] [address] [place] [phone] Nicole Núñez MD [address] [place] [address] 12/19/2024 9:30 AM PEA VINER MECHANIC Appointment [facility] [place] [address] [place] [phone] Nicole Núñez MD [address] [place] [address] 12/19/2024 10:00 AM PEA VINER MECHANIC Office Visit [facility] [place] [address] [place] [phone] Nicole Núñez MD [address] [place] [address] 12/28/2024 10:15 AM PEA VINER MECHANIC Appointment [facility] [place] [address] [place] [address] Yobani Crespo MD [address] [place] [address] 12/28/2024 10:45 AM PEA VINER MECHANIC Office Visit [facility] [place] [address] [place] [address] Yobani Crespo MD [address] [place] [address] 01/11/2025 10:15 AM CDT Appointment [facility] [place] [address] [place] [phone] Yobani Crespo MD [address] [place] [address] 01/11/2025 10:45 AM CDT Office Visit [facility] [place] [address] [place] [phone] Yobani Crespo MD [address] [place] [address] Scheduled Orders Name Type Priority Associated Diagnoses [...] Twins US Comprehensive F/U (11/30/2024 3:11 PM PEA VINER MECHANIC) Anatomical Region Laterality Modality Ultrasound 11/30/2024 2:04 PM PEA VINER MECHANIC Impressions 11/30/2024 8:09 PM PEA VINER MECHANIC IMPRESSION ----- Monochorionic diamniotic twin gestation at [...] wave and reversal. Narrative 11/30/2024 8:09 PM PEA VINER MECHANIC Surveillance US ----- Pat. Name: DEANDRE LEYVA Study Date: 11/30/2024 2:04pm Pat. NO: [id number] Referring MD: PAMELA CUELLAR Site: Manager Human Capital: Kenyetta SUSAN Lyons : 1995 Age: 29 [...] options at this time including referral to [facility] for consideration of laser procedure to protect/optimize [...] discussed likely plan for delivery at the [facility]. Return to primary provider for continued care. If you have questions regarding today's evaluation or if we can be of further service, please contact the [facility]. anomalies may be present but not detected I spent a total of 15 minutes (excluding the ultrasound interpretation) on the date of this encounter including preparing to see the patient (reviewing medical records/tests), in direct pxej-qo-nwph contact with the patient counseling and discussing the plan of care, documenting the visit in the electronic medical record, and communicating with other health patient care and/or care coordination. Procedure Note Nicole Núñez MD - 11/30/2024 Surveillance ----- Pat. Name: DEANDRE LEYVA Study Date: 11/30/2024 2:04pm Pat. NO: [id number] Referring MD: PAMELA CUELLAR Site: Manager Human Capital: Kenyetta Lyons RDMS : 1995 Age: 29 [...] options at this time including referral to [facility] for consideration oflaser procedure to [...] We also discussed likely plan for delivery [facility]. Return to primary provider for continued care. If you have questions regarding today's evaluation or if we can be offurther service, please contact the [facility] Center. anomalies may be present but not detected I spent a total of 15 minutes (excluding the ultrasound interpretation) onthe date of this encounter including preparing to see the patient(reviewing medical records/tests), in direct nkxi-ez-ovbi contact with the patient counseling and discussingthe plan of care, documenting the visit in the electronic medical record,and communicating with other health patient care and/or care coordination. IMPRESSION ----- [...] depressed A waveand reversal. us Yobani RAE [facility] US ORDERABLES Edited Result - Final * ECHO COMPLETE (11/30/2024 1:46 PM PEA VINER MECHANIC) Anatomical Region Laterality Modality Echocardiography 11/30/2024 1:42 PM PEA VINER MECHANIC Narrative 11/30/2024 2:07 PM PEA VINER MECHANIC [id number] [facility] [id number]^ZAK^YOBANI Study ID: [id number] [facility] [place] [address] Echocardiogram Name: DEANDRE LEYVA Study Date: 11/30/2024 01:42 PM Patient Location: [facility] Gender: Female Patient Class: Outpatient : [id number] Age: 29 yrs Ordering Provider: YOBANI CRESPO Referring Provider: YOBANI CRESPO Performed By: Daphney Dao RDCS Reading Physician: Luc Dominguez MD Reason For Study: 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 Data: Number of fetuses: This is a twin gestation. Due date: 04/07/2025. Gestational age: 21w5d. Delivery at: [facility]. Specific Indication: echocardiogram performed for monochorionic diamniotic [...] to the left atrium. There is laminar cnuah-bq-doie shunting across the foramen ovale. Atrioventricular valves: [...] Procedure Note Luc Dominguez MD - 11/30/2024 [id number] [facility] [id number]^ZAK^YOBANI Study ID:[id number] [facility] [address] [facility] [place] [address] Echocardiogram Name: DEANDRE LEYVA Study Date: 11/30/2024 01:42 PM Patient Location: [facility] Gender: Female Patient Class:Outpatient : [id number] Age: 29 yrs Ordering Provider: YOBANI CRESPO Referring Provider: YOBANI CRESPO Performed By: Daphney Dao RDCS Reading Physician: Luc Dominguez MD Reason For Study: Monochorionic diamniotic twin gestation in secondtrimester Data: Number of fetuses: This is a twin gestation. Due date: 04/07/2025. Gestational age: 21w5d. Delivery at: [facility]. Specific Indication: echocardiogram performed formonochorionic diamniotic twins. [...] in to the left atrium. There is psqoxxsrygjm-gj-qgee shunting across the foramen ovale. Atrioventricular valves: [...] Final * ECHO COMPLETE (11/30/2024 1:46 PM PEA VINER MECHANIC) Anatomical Region Laterality Modality Echocardiography 11/30/2024 1:31 PM PEA VINER MECHANIC Narrative 11/30/2024 2:02 PM PEA VINER MECHANIC [id number]^ZAK^YOBANI Study ID: [id number] [facility] [address] [address] Echocardiogram Name: DEANDRE LEYVA Study Date: 11/30/2024 [...] date: 04/07/2025. Gestational age: 21w5d. Delivery at: [facility]. Specific Indication: echocardiogram performed for monochorionic diamniotic [...] to the left atrium. There is laminar qyvac-zu-zwpp shunting across the foramen ovale. Atrioventricular valves: [...] Procedure Note Luc Dominguez MD - 11/30/2024 [id number] [facility] [id number]^ZAK^YOBANI Study ID:[id number] [facility] [address] Echocardiogram Name: DEANDRE LEYVA Study Date: 11/30/2024 01:31 PM Patient Location: [facility] Gender: Female Patient Class:Outpatient : [id number] Age: 29 yrs Ordering Provider: YOBANI CRESPO Referring Provider: YOBANI CRESPO Performed By: Daphney Dao RDCS Reading Physician: Luc Dominguez MD Reason For Study: Monochorionic diamniotic twin gestation in secondtrimester Data: Number of fetuses: This is a twin gestation. Due date: 04/07/2025. Gestational age: 21w5d. Delivery at: [facility]. Specific Indication: echocardiogram performed formonochorionic diamniotic twins. [...] in to the left atrium. There is pbdnieoyjbor-oi-nkju shunting across the foramen ovale. Atrioventricular valves: [...] * MFM Twins Comprehensive (11/14/2024 11:59 AM PEA VINER MECHANIC) Anatomical Region Laterality Modality Ultrasound 11/14/2024 10:2 4 AM PEA VINER MECHANIC Impressions 11/14/2024 4:40 PM PEA VINER MECHANIC IMPRESSION ----- Monochorionic diamniotic twin gestation at [...] anemia polycythemia syndrome. Narrative 11/14/2024 4:40 PM PEA VINER MECHANIC Comprehensive ----- Pat. Name: DEANDRE LEYVA Study Date: 11/14/2024 10:24am Pat. NO: [id number] Referring MD: PAMELA CUELLAR Site: Manager Human Capital: Emerita Corona RDMS : 1995 Age: 29 [...] 0 lb 11 oz EFW by Hadlock ([id number]) EFW discordance 30.6 % Head / Face / Neck Biometry: Rubber Liner 6.9 mm CM 2.6 mm Nasal [...] 0 lb 8 oz EFW by Hadlock ([id number]) EFW discordance 30.6 % Head / Face / Neck Biometry: Rubber Liner 6.8 mm CM 4.4 mm Extremities [...] view. RVOT view. LVOT view. 3-vessel view. 9-oorfwe-dmkuwjn view. Situs. Aortic arch view. Bicaval view. [...] Thorax 4-chamber view. RVOT view. LVOT view. 6-dsftbl-xaknrys view. Aortic arch view. sex: female. Fetus [...] recommendation. She was again offered referral to [facility] for a second opinion/discussion about options in [...] the patient (reviewing medical records/tests), in direct vnuy-xa-aaev contact with the patient counseling and discussing the plan of care, documenting the visit in the electronic medical record, and communicating with other health patient care and/or care coordination. Please see note for details. Procedure Note Flower Amato MD - 11/14/2024 Comprehensive ----- Irma. Name: DEANDRE LEYVA Study Date: 11/14/2024 10:24am Pat. NO: [id number] Referring MD: PAMELA CUELLAR Site: Manager Human Capital: Emerita Corona RDMS : 1995 Age: 29 [...] EFW (lb,oz) 0 lb 11oz EFW by Hadlock([id number]-JO-QJ-FL) EFW discordance 30.6% Head / Face / Neck Biometry: Rubber Liner 6.9mm CM 2.6mm Nasal bone 7.8mm Fetus 2: BIOMETRY ----- BPD 42.9mm 19w 0dHadlock OFD 55.1mm 18w 2dNicolaides HC 156.8mm 18w 4dHadlock Cerebellum tr 18.1mm 18w 0dNicolaides Nuchal fold 3.0mm AC 128.0mm 18w 3d 15%Hadlock Femur 24.5mm 17w 3dHadlock Humerus 23.5mm 17w 2dJeanty Weight Calculation: EFW 219g 2%Hadlock EFW (lb,oz) 0 lb 8oz EFW by Hadlock([id number]-UB-TS-FL) EFW discordance 30.6% Head / Face / Neck Biometry: Rubber Liner 6.8mm CM 4.4mm Extremities / Bony [...] 4-chamber view. RVOT view. LVOT view.3-vessel view. 0-slzrbt-jypfvmv view. Situs. Aortic arch view. Bicavalview. Ductal [...] / Thorax 4-chamber view. RVOT view. LVOT view.2-hljhgi-zebyady view. Aortic arch view. sex: female. Fetus [...] the recommendation. She was again offered referralto [facility] for a second opinion/discussion about options in [...] see the patient(reviewing medical records/tests), in direct pcrl-pv-kagz contact with the patient counseling and discussingthe plan of care, documenting the visit in the electronic medical record,and communicating with other health patient care and/or care coordination. Please see [...] anemia polycythemia syndrome. us Yobani Crespo MD [facility] US ORDERABLES Edited Result - Final * [facility] Twins US Comprehensive F/U (11/08/2024 10:15 AM PEA VINER MECHANIC) Anatomical Region Laterality Modality Ultrasound 11/08/2024 9:37 AM PEA VINER MECHANIC Impressions 11/08/2024 11:28 AM PEA VINER MECHANIC IMPRESSION ----- Monochorionic diamniotic twin gestation at [...] anemia polycythemia syndrome. Narrative 11/08/2024 11:28 AM [facility] Surveillance US ----- Pat. Name: DEANDRE LEYVA Study Date: 11/08/2024 9:37am Pat. NO: [id number] Referring MD: PAMELA CUELLAR Site: Manager Human Capital: Chantell Jarquin RDMS : 1995 Age: 29 [...] LEYVA Study Date: 11/08/2024 9:37am Pat. NO: [id number] Referring MD: PAMELA CUELLAR Site: Manager Human Capital: Chantell Jarquin RDMS : 1995 Age: 29 [...] anemia polycythemia syndrome. us Yobani Crespo MD [facility] US ORDERABLES Edited Result - Final * [facility] Twins US Comprehensive F/U (11/02/2024 2:26 PM PEA VINER MECHANIC) Anatomical Region Laterality Modality Ultrasound 11/02/2024 1:30 PM PEA VINER MECHANIC Impressions 11/03/2024 10:38 AM PEA VINER MECHANIC IMPRESSION ----- Monochorionic diamniotic twin gestation at [...] anemia polycythemia syndrome. Narrative 11/03/2024 10:38 AM [facility] Surveillance US ----- Pat. Name: DEANDRE LEYVA Study Date: 11/02/2024 1:30pm Pat. NO: [id number] Referring MD: PAMELA CUELLAR Site: Manager Human Capital: Pennie Bradley RDMS : 1995 Age: 29 [...] the patient (reviewing medical records/tests), in direct xknf-gd-rhuu contact with the patient during the visit counseling and discussing the plan of care and documenting the visit in the electronic medical record. Procedure Note Flor Dickson MD - 11/03/2024 Surveillance US ----- Pat. Name: DEANDRE LEYVA Study Date: 11/02/2024 1:30pm Pat. NO: [id number] Referring MD: PAMELA CUELLAR Site: Manager Human Capital: Pennie Bradley RDMS : 1995 Age: 29 ----- INDICATION ----- Monochorionic, Diamniotic Twin gestation with selective growthrestriction. TTTS Check METHOD ----- Transabdominal ultrasound examination. View: Sufficient. ----- Twin . Number of fetuses: 2. Monochorionic-diamniotic DATING ----- DateDetailsGest. age TOMMIE LMP 9/1/223516 w + 5 d 04/07/2025 Previous U/S [...] see the patient(reviewing medical records/tests), in direct jatn-fr-glwy contact with the patient during the visitcounseling [...] polycythemia syndrome. us Yobani Crespo MD [facility] US ORDERABLES Edited Result - Final * [facility] US Comprehensive F/U (10/26/2024 11:48 AM PEA VINER MECHANIC) Anatomical Region Laterality Modality Ultrasound 10/26/2024 11:0 5 AM PEA VINER MECHANIC Impressions 10/26/2024 1:47 PM PEA VINER MECHANIC IMPRESSION ----- Monochorionic diamniotic twin gestation at [...] increased MCA PSV. Narrative 10/26/2024 1:47 PM PEA VINER MECHANIC Surveillance US ----- Pat. Name: DEANDRE LEYVA Study Date: 10/26/2024 11:05am Pat. NO: [id number] Referring MD: PAMELA CUELLAR Site: Manager Human Capital: Drea Varela RDMS : 1995 Age: 29 [...] reviewed the option to consult with the [facility] to discuss the option of SLFP further. At this time, they wish to continue expectant management as they would not consider termination. We also reviewed the possibility of prolonged antepartum admission at the time they are accepting of intervention if the continues to advance. They understand that admission would be recommended at [facility]. We reviewed the difficult decisions that [...] the patient (reviewing medical records/tests), in direct drwq-vf-uvzl contact with the patient during the visit counseling and discussing the plan of care and documenting the visit in the electronic medical record. Procedure Note Estrella Esteban MD - 10/26/2024 [facility] US ----- Pat. Name: DEANDRE LEYVA Study Date: 10/26/2024 11:05am Pat. NO: [id number] Referring MD: PAMELA CUELLAR Site: Manager Human Capital: Drea Varela RDMS : 1995 Age: 29 [...] reviewed the option to consult with the [facility] to discuss theoption of SLFP further. At this time, they wish to continue expectantmanagement as they would not consider termination. We also reviewed the possibility of prolongedantepartum admission at the time they are accepting of intervention if thepregnancy continues to advance. They understand that admission would be recommended at [facility]. We reviewed the difficult decisions that may [...] see the patient(reviewing medical records/tests), in direct acai-km-rzxb contact with the patient during the visitcounseling [...] demonstrate increased MCAPSV. us Yobani Crespo MD [facility] US ORDERABLES Edited Result - Final documented [...] trimester documented in this encounter Care Teams Motor Vehicle Field Representative Relationship Specialty Start Date End Date No Ref-Primary, Physician PCP - General 12/04/21 documented as of this encounter
--- OUTSIDE RECORDS SUMMARY | 2024-12-01 11:25 | XMS_ITS | Encounter Summary ---
Author Organization [facility] Address [address] [place] [address] Care Team Providers Care Laundry Sorter Name Role Phone No Ref-Primary, Physician Primary Care Provider Reason for Referral * Diagnostic Imaging Ultrasound (Routine) - Pending Review Specialty Diagnoses / Procedures Referred By Noa lilly Referred To Contact Radiology. Diagnoses Monochorionic diamniotic twin gestation Procedures MFM Twins US Comprehensive F/U Diane Lopez MD [address] [place] [address] Phone: tel: fax: Referral ID Status Reason Start Date Expiration Date V isits Requested Visits Authorized [id number] Pending Review 10/19/2024 10/19/2025 1 1 MOFORMING MACHINE OPERATOR Reason for Visit * Diagnostic Imaging Ultrasound (Routine) - Pending Review Specialty Diagnoses / Procedures Referred By Noa lilly Referred To Contact Radiology. Diagnoses Monochorionic diamniotic twin gestation Procedures MFM Twins US Alivia F/U Diane Lopez MD [address] [place] [address] Phone: tel: fax: Referral ID Status Reason Start Date Expiration Date V isits Requested Visits Authorized [id number] Pending Review 10/19/2024 10/19/2025 1 1 Encounter Details Date Type Department Care Team (Latest Contact Info) Description 11/02/2024 1:22 PM THERMOFORMING MACHINE OPERATOR - 11/02/2024 11:59 PM THERMOFORMING MACHINE OPERATOR Hospital Encounter [facility] [place] [address] [place] [address] Diane Lopez MD [address] [place], [place] [phone] Flor Dickson MD [address] [place] [address] Monochorionic diamniotic twin gestation in [...] on file Legal Sex Female 11:44 PM THERMOFORMING MACHINE OPERATOR Gender Identity Not on file [...] st Contact Info) Description 12/03/2024 2:15 PM THERMOFORMING MACHINE OPERATOR Appointment [facility] M[facility] [address] [place] [phone] Nicole Núñez MD [address] [place] [address] 12/03/2024 2:45 PM THERMOFORMING MACHINE OPERATOR Office Visit [facility] [address] [place] [phone] Nicole Núñez MD [address] [place] [address] 12/06/2024 9:30 AM THERMOFORMING MACHINE OPERATOR Appointment [facility] M[facility] [address] [facility] [address] [place] [phone] Nicole Núñez MD [address] [place] [address] 12/06/2024 10:00 AM THERMOFORMING MACHINE OPERATOR Office Visit [facility] [address] [place] [phone] Nicole Núñez MD [address] [place] [address] 12/13/2024 9:30 AM THERMOFORMING MACHINE OPERATOR Appointment [facility] [address] [facility] [address] [place] [phone] Nicole Núñez MD [address] [place] [address] [place] [address] 12/13/2024 10:00 AM THERMOFORMING MACHINE OPERATOR Office Visit [facility] [place] [address] [place] [phone] Nicole Núñez MD [address] [place] [address] 12/19/2024 9:30 AM THERMOFORMING MACHINE OPERATOR Appointment [facility] [place] [address] [facility] [address] [place] [phone] Nicole Núñez MD [address] [facility] [place] [address] 12/19/2024 10:00 AM THERMOFORMING MACHINE OPERATOR Office Visit [facility] [place] [address] [place] [phone] Nicole Núñez MD [address] [facility] [place] [address] 12/28/2024 10:15 AM THERMOFORMING MACHINE OPERATOR Appointment [facility] [place] [address] [place] [phone] Diane Lopez MD [address] [address] 12/28/2024 10:45 AM THERMOFORMING MACHINE OPERATOR Office Visit [facility] [place] [address] [place] [phone] Diane Lopez MD [address] [address] 01/11/2025 10:15 AM CDT Appointment [facility] [address] [place] [address] Diane Lopez MD [address] [place], [place] [phone] 01/11/2025 10:45 AM CDT Office Visit [facility] [address] [place] [phone] Diane Lopez MD [address] [place] [address] documented as of this encounter Procedures Procedure Name Priority Date/Time Associated Diagnosis Comments MFM TWINS US COMPREHENSIVE F/U Routine 11/02/2024 2:26 PM THERMOFORMING MACHINE OPERATOR 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 documented in this encounter Results * MFM Twins US Comprehensive F/U (11/02/2024 2:26 PM THERMOFORMING MACHINE OPERATOR) Anatomical Region Laterality Modality Ultrasound 11/02/2024 1:30 PM THERMOFORMING MACHINE OPERATOR Impressions 11/03/2024 10:38 AM THERMOFORMING MACHINE OPERATOR IMPRESSION ----- Monochorionic diamniotic twin [...] anemia polycythemia syndrome. Narrative 11/03/2024 10:38 AM [facility] Surveillance US ----- Pat. Name: HEATHER CHÁVEZ Study Date: 11/02/2024 1:30pm Pat. NO: [id number] Referring MD: PAMELA CUELLAR Site: Biometric Technician: Pennie Bradley RDMS : 1995 Age: 29 [...] the patient (reviewing medical records/tests), in direct pdmx-il-zdwz contact with the patient during the visit counseling and discussing the plan of care and documenting the visit in the electronic medical record. Procedure Note Flor Dickson MD - 11/03/2024 Surveillance US ----- Pat. Name: HEATHER CHÁVEZ Study Date: 11/02/2024 1:30pm Pat. NO: [id number] Referring MD: PMAELA CUELLAR Site: Biometric Technician: ePnnie Bradley RDMS : 1995 Age: 29 ----- [...] see the patient(reviewing medical records/tests), in direct dams-lg-nqur contact with the patient during the visitcounseling [...] anemia polycythemia syndrome. 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
--- OUTSIDE RECORDS SUMMARY | 2024-12-01 11:25 | XMS_ITS | Clinical Summary ---
Author Organization [facility] Address [address] [place] [address] Care Team Providers Care Jukebox Route Driver Name Role Phone Arslan Mckoy MD Primary Care Provider Ladonna calderon Source Comments You are receiving this document as you are listed as the primary care provider,follow-up provider, or the patient has been referred to you for consultation.This is in compliance with the Medicare and[facility] EHR Incentive Program,which states Providers who transition their patient to another setting of careor provider of care or refers their patient to another provider of care shouldprovide summary care record for each transition of care or referral. [facility] Allergies No known active allergies Medications Medication Sig Dispensed Refills Start Date End Date Status Iyxpkadf-MdRci-XJ-DHA w/o A ( + DHA OR) Active [...] Comments Blood Pressure 117/62 10/05/2018 10:40 AM FEATHERER Pulse 76 10/05/2018 10:40 AM FEATHERER Temperature - - Respiratory Rate - - Oxygen Saturation - - Inhaled Oxygen Concentration - - Weight 73.5 kg (162 lb) 10/05/2018 10:40 AM FEATHERER Height 166.4 cm (5' 5.5) 10/05/2018 10:40 AM CS T Body Mass Index 26.55 10/05/2018 10:40 AM FEATHERER Plan of Treatment Health Maintenance Due Date [...] AND HIV-1/HIV-2 ANTIBODIES Routine 09/07/2018 12:05 PM FEATHERER Screening examination for venereal disease CHLAMYDIA & GC, URINE (14 YEARS AND OLDER) Routine 09/07/2018 11:59 AM FEATHERER Screening examination for venereal disease from Last 3 Months or Most Recently Relevant to Health Maintenance Results * LAB HIV-1 p24 AND HIV-1/HIV-2 ANTIBODIES (09/07/2018 12:05 PM FEATHERER) HIV-1 p24 Ag and HIV-1/HIV-2 Ab Nonreactive Nonreactive PN SOFT 09/07/2018 12:0 5 PM FEATHERER 09/07/2018 12:16 PM FEATHERER Narrative PN SOFT - 09/07/2018 1:26 PM FEATHERER Performed at [address] [address] CLIA number [id number] Angela Lyons APRN, CNM LAB_1 Performing Organization Address [facility] Co de Phone Number PN [employer] [address] [place] [address] * CHLAMYDIA & GC, URINE (09/07/2018 11:59 AM FEATHERER) Pathologist [facility] Urine Chlamydia STD Negative Negative PN SOFT Comment: Test Performed by [employer] Mediated Amplification Results obtained from this source are not FDA approved. CLIA Number [id number] Urine N. gonnorrhoeae STD Negative Negative PN SOFT Comment: Test Performed by [employer] Hand Mediated Amplification Results obtained from this source are not FDA approved. Performed at [facility], [address] [place] [address] CLIA Number [id number] 09/07/2018 11:5 9 AM FEATHERER 09/07/2018 12:17 PM FEATHERER Angela Lyons APRN, CNM LAB_1 Performing Organization Address City/[facility]/ZIP Co de Phone Number [employer] [address] [place] [address] from Last 3 Months or Most Recently Relevant to Health Maintenance Care Teams Jukebox Route Driver Relationship Specialty Start Date End Date Arslan Mckoy MD PCP - General Family Practice 09/09/17
--- OUTSIDE RECORDS SUMMARY | 2024-12-01 11:25 | XMS_ITS | Encounter Summary ---
Author Organization [facility] Address [address] [facility] [place] [address] Care Team Providers Care District Administrative Assistant Name Role Phone No Ref-Primary, Physician Primary Care Provider Reason for Visit * Reason Comments Ultrasound RL2/MCA/UAR/TTTS elizabeth ck-M/D twins, Elevated MCA and AEDF on F2 Encounter Details Date Type Department Care Team (Latest Contact Info) Description 11/02/2024 2:00 PM PHOTO JOURNALIST Office Visit [facility] [place] [address] [facility] [address] [place] [address] Diane Lopez MD [address] [place] [address] Flor Dickson MD [address] [place] [address] Monochorionic diamniotic twin gestation in [...] on file Legal Sex Female 11:44 PM PHOTO JOURNALIST Gender Identity Not on file Sexual Orientation [...] Center. Flor Dickson M.D. Maternal -Medicine Specialist O JOURNALIST documented in this encounter Nursing Notes * Debra Tran, RN - 11/02/2024 2:00 PM CST Patient presents to [facility] for RL2/MCA/UAR/TTTS check at 17w5d due to M/D twins, Elevated MCA and AEDFon F2. Denies LOF, vaginal bleeding or cramping/contractions. SBAR given to M MD, see their note in Epic. O JOURNALIST documented in this encounter Plan of Treatment Upcoming Encounters Date Type Department Care Team (Late st Contact Info) Description 12/03/2024 2:15 PM PHOTO JOURNALIST Appointment [facility] Maternal Medicine [address] [phone] Nicole Núñez MD [address] [place], [place] [address] [place], [place] [address] 12/03/2024 2:45 PM PHOTO JOURNALIST Office Visit [facility] Medicine [address] [place], [place] [phone] Nicole Núñez MD [address] [place] [phone] 12/06/2024 9:30 AM PHOTO JOURNALIST Appointment [facility] Maternal Medicine [place] [address] [place] [phone] Nicole Núñez MD [address] [place] [address] 12/06/2024 10:00 AM PHOTO JOURNALIST Office Visit [facility] [place] [address] [place] [phone] Nicole Núñez MD [address] [place] [address] 12/13/2024 9:30 AM PHOTO JOURNALIST Appointment [facility] Medicine [place] [address] [place] [phone] Nicole Núñez MD [address] [place] [address] 12/13/2024 10:00 AM PHOTO JOURNALIST Office Visit [facility] [place] [address] [place] [phone] Nicole Núñez MD [address] [place] [address] 12/19/2024 9:30 AM PHOTO JOURNALIST Appointment [facility] [place] [address] [place] [phone] Nicole Núñez MD [address] [place] [address] 12/19/2024 10:00 AM PHOTO JOURNALIST Office Visit [facility] Medicine [place] [address] [place] [phone] Nicole Núñez MD [address] [place] [address] 12/28/2024 10:15 AM PHOTO JOURNALIST Appointment [facility] Maternal Medicine [place] [address] [place] [phone] Diane Lopez MD [address] [place] [address] 12/28/2024 10:45 AM PHOTO JOURNALIST Office Visit [facility] Maternal Medicine [place] [address] [place] [phone] Diane Lopez MD [address] [place] [address] 01/11/2025 10:15 AM CDT Appointment [facility] Maternal Medicine [place] [address] [place] [phone] Diane Lopez MD [address] [place] [address] 01/11/2025 10:45 AM CDT Office Visit [facility] Maternal Medicine [place] [address] [place] [phone] Diane Lopez MD [address] [place] [address] documented as of this encounter Visit Diagnoses Diagnosis 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
--- OUTSIDE RECORDS SUMMARY | 2024-12-01 11:25 | XMS_ITS | Clinical Summary ---
Author Organization [place] Address [address] [facility] 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 [address] [place] [phone] Yobani Crespo MD 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 Discharge Disposition: Home or Self Care 11/30/2024 12:00 PM PIANO PROFESSOR - 11/30/2024 12:24 PM PIANO PROFESSOR Hospital Encounter [facility] [address] [place] [phone] Yobani Crespo MD 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 Discharge Disposition: Home or Self Care 11/30/2024 Office Visit [facility] [address] [place] [address] [facility] [address] [place] [address] uLc Dominguez MD cardiac anomaly complicating , antepartum, fetus 1 (Primary Dx); cardiac anomaly complicating , antepartum, fetus 2 11/30/2024 Travel 11/22/2024 10:00 AM PIANO PROFESSOR Office Visit [facility] [place] [address] [place] [address] Nicole Núñez MD 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 (Primary Dx); Intrauterine growth restriction affecting antepartum care of mother in first trimester, fetus 2 11/22/2024 9:28 AM PIANO PROFESSOR - 11/22/2024 11:59 PM PIANO PROFESSOR Hospital Encounter [facility] [place] [address] [place] [address] Nicole Núñez MD 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 Discharge Disposition: Home or Self Care 11/22/2024 Travel 11/14/2024 11:30 AM PIANO PROFESSOR Office Visit [facility] Medicine [place] [address] [place] [address] Flower Amato MD 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 (Primary Dx); Discordant growth in twin gestation, fetus 2 of multiple gestation; Intrauterine growth restriction affecting antepartum care of mother in first trimester, fetus 2 11/14/2024 10:09 AM PIANO PROFESSOR - 11/14/2024 11:59 PM PIANO PROFESSOR Hospital Encounter [facility] Medicine [place] [address] [place] [address] Flower Amato MD 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 Discharge Disposition: Home or Self Care 11/14/2024 Travel 11/08/2024 10:00 AM PIANO PROFESSOR Office Visit [facility] [place] [address] [place] [address] Flor Dickson MD 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 (Primary Dx); Discordant growth in twin gestation, fetus 2 of multiple gestation 11/08/2024 9:24 AM PIANO PROFESSOR - 11/08/2024 11:59 PM PIANO PROFESSOR Hospital Encounter [facility] Maternal Medicine [facility] [address] [place] [address] Flor Dickson MD 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 Discharge Disposition: Home or Self Care 11/08/2024 Travel 11/02/2024 2:00 PM PIANO PROFESSOR Office Visit [facility] [place] [address] [place] [address] Yobani Crespo MD Nashif, Sereen, MD 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 (Primary Dx); Intrauterine growth restriction affecting antepartum care of mother in first trimester, fetus 2 11/02/2024 1:22 PM PIANO PROFESSOR - 11/02/2024 11:59 PM PIANO PROFESSOR Hospital Encounter [facility] [place] [address] [place] [address] Yobani Crespo MD Nashif, Sereen, MD 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 Discharge Disposition: Home or Self Care 11/02/2024 Travel 10/26/2024 11:30 AM PIANO PROFESSOR Office Visit [facility] [address] [phone] Estrella Esteban MD 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 (Primary Dx); growth restriction antepartum 10/26/2024 11:00 AM PIANO PROFESSOR Ancillary Procedure [facility] [address] [phone] Estrella Esteban MD 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 10/26/2024 Travel 10/19/2024 11:30 AM PIANO PROFESSOR Office Visit [facility] M[facility] [place] [address] [place] [address] Yobani Crespo MD 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 (Primary Dx); growth restriction antepartum 10/19/2024 11:00 AM PIANO PROFESSOR - 10/19/2024 11:59 PM PIANO PROFESSOR Hospital Encounter [place] [address] [facility] [address] [place] [address] Yobani Crespo MD related condition, antepartum Discharge Disposition: Home or Self Care 10/19/2024 Travel 10/15/2024 PRE VISIT [place] [address] [facility] [address] [place] [phone] Debra Tran RN Ultrasound (2/3 complete-Twin , mono-di) 10/10/2024 Transcribe Orders [place] [address] [facility] [address] [place] [phone] Zakia Cuellar MD related condition, antepartum (Primary Dx) 10/09/2024 Medical Correspondence [facility] Information Management [address] [facility] [address] [place] [address] Scan, Non-Provider from Last 3 Months Social [...] on file Legal Sex Female 11:44 PM PIANO PROFESSOR Gender Identity Not on file Sexual Orientation Not on file Last Filed Vital Signs Vital Sign Reading Time Taken Comments Blood Pressure 127/77 12/08/2021 5:48 PM PIANO PROFESSOR Pulse 88 12/24/2023 3:35 PM PIANO PROFESSOR Temperature 37.1 C (98.7 F) 12/24/2023 3:35 PM PIANO PROFESSOR Respiratory Rate 16 12/24/2023 3:35 PM PIANO PROFESSOR Oxygen Saturation 98% 12/24/2023 3:35 PM PIANO PROFESSOR Inhaled Oxygen Concentration - - Weight 69.3 kg (152 lb 11.2 oz) 12/24/2023 3:35 PM PIANO PROFESSOR Height 165.1 cm (5' 5) 12/04/2021 10:1 0 PM PIANO PROFESSOR Body Mass Index 25.41 12/04/2021 10:10 PM PIANO PROFESSOR Plan of Treatment Upcoming Encounters Date Type Department Care Team (Late st Contact Info) Description 12/03/2024 2:15 PM PIANO PROFESSOR Appointment [facility] [place] [address] [place] [phone] Nicole Núñez MD [address] [place] [address] 12/03/2024 2:45 PM PIANO PROFESSOR Office Visit [facility] Maternal Medicine [facility] [address] [place] [address] Nicole Núñez MD [address] [place] [phone] 12/06/2024 9:30 AM PIANO PROFESSOR Appointment [facility] [place] [address] [place] [phone] Nicole Núñez MD [address] [place] [address] 12/06/2024 10:00 AM PIANO PROFESSOR Office Visit [facility] Maternal Medicine [facility] [address] [place] [phone] Nicole Núñez MD [address] [place] [address] 12/13/2024 9:30 AM PIANO PROFESSOR Appointment [facility] Maternal Medicine [facility] [address] [place] [phone] Nicole Núñez MD [address] [place] [address] 12/13/2024 10:00 AM PIANO PROFESSOR Office Visit [facility] [place] [address] [place] [phone] Nicole Núñez MD [address] [place] [address] 12/19/2024 9:30 AM PIANO PROFESSOR Appointment [facility] Maternal Medicine [place] [address] [place] [phone] Nicole Núñez MD [address] [facility] [place] [address] 12/19/2024 10:00 AM PIANO PROFESSOR Office Visit [facility] [place] [address] [place] [phone] Nicole Núñez MD [address] [facility] [place] [address] 12/28/2024 10:15 AM PIANO PROFESSOR Appointment [facility] Maternal Medicine [place] [address] [place] [phone] Yobani Crespo MD [address] [address] 12/28/2024 10:45 AM PIANO PROFESSOR Office Visit [facility] [place] [address] [place] [phone] Yobani Crespo MD [address] [address] 01/11/2025 10:15 AM CDT Appointment [facility] [place] [address] [place] [phone] Yobani Crespo MD [address] [place], [place] [phone] 01/11/2025 10:45 AM CDT Office Visit [facility] Maternal Medicine [facility] [address] [place] [phone] Yobani Crespo MD [address] [place] [address] Health Maintenance Due Date Last [...] US COMPREHENSIVE F/U Routine 11/30/2024 3:11 PM PIANO PROFESSOR 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 ECHO COMPLETE Routine 11/30/2024 1 :46 PM PIANO PROFESSOR 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 ECHO COMPLETE Routine 11/30/2024 1 :46 PM PIANO PROFESSOR 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 MFM TWINS US COMPREHENSIVE F/U Routine 11/22/2024 11:09 AM PIANO PROFESSOR 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 MFM TWINS US COMPREHENSIVE Routine 11/14/2024 11:59 AM PIANO PROFESSOR 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 MFM TWINS US COMPREHENSIVE F/U Routine 11/08/2024 10:15 AM PIANO PROFESSOR 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 MFM TWINS US COMPREHENSIVE F/U Routine 11/02/2024 2:26 PM PIANO PROFESSOR 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 MFM TWINS US COMPREHENSIVE F/U Routine 10/26/2024 11:48 AM PIANO PROFESSOR 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 MFM TWINS US OB COMPLETE 2/3 TRI Routine 10/19/2024 1:39 PM PIANO PROFESSOR related condition, antepartum from Last 3 Months Results * MFM Twins US Comprehensive F/U (11/30/2024 3:11 PM PIANO PROFESSOR) Only the most recent of5 resultswithin the time period is included. Anatomical Region Laterality Modality Ultrasound 11/30/2024 2:04 PM PIANO PROFESSOR Impressions 11/30/2024 8:09 PM PIANO PROFESSOR IMPRESSION ----- Monochorionic diamniotic twin gestation at [...] wave and reversal. Narrative 11/30/2024 8:09 PM [facility] Surveillance US ----- Pat. Name: DEANDRE LEYVA Study Date: 11/30/2024 2:04pm Pat. NO: [id number] Referring : ZAKIA CUELLAR Site: Field Placement Director: Kenyetta Lyons RDMS : 1995 Age: 29 [...] options at this time including referral to [facility] for consideration of laser procedure [...] discussed likely plan for delivery at the [place]. Return to primary provider for continued care. If you have questions regarding today's evaluation or if we can be of further service, please contact the Maternal[facility] Medicine Center. anomalies may be present but not detected I spent a total of 15 minutes (excluding the ultrasound interpretation) on the date of this encounter including preparing to see the patient (reviewing medical records/tests), in direct vwly-mw-nvyv contact with the patient counseling and discussing the plan of care, documenting the visit in the electronic medical record, and communicating with other health nurse care manager and/or care coordination. Procedure Note Nicole Núñez MD - 11/30/2024 Surveillance US ----- Pat. Name: DEANDRE LEYVA Study Date: 11/30/2024 2:04pm Pat. NO: [id number] Referring MD: ZAKIA CUELLAR Site: Field Placement Director: Kenyetta Lyons RDMS : 1995 Age: 29 [...] options at this time including referral to [facility] for consideration oflaser procedure to [...] We also discussed likely plan for delivery [facility]. Return to primary provider for continued care. If you have questions regarding today's evaluation or if we can be offurther service, please contact the Maternal- Medicine Center. anomalies may be present but not detected I spent a total of 15 minutes (excluding the ultrasound interpretation) onthe date of this encounter including preparing to see the patient(reviewing medical records/tests), in direct yfmh-ep-vxju contact with the patient counseling and discussingthe plan of care, documenting the visit in the electronic medical record,and communicating with other health nurse care manager and/or care coordination. IMPRESSION ----- Monochorionic [...] A waveand reversal. us Yobani Crespo MD [facility] US ORDERABLES Edited Result - Final * ECHO COMPLETE (11/30/2024 1:46 PM PIANO PROFESSOR) Anatomical Region Laterality Modality Echocardiography 11/30/2024 1:42 PM PIANO PROFESSOR Narrative 11/30/2024 2:07 PM [facility] [id number] REPLACED BY [facility] [id number]^ZAK^YOBANI Study ID: [id number] [facility] [address] [address] Echocardiogram Name: DEANDRE LEYVA Study Date: 11/30/2024 [...] date: 04/07/2025. Gestational age: 21w5d. Delivery at: [place]. Specific Indication: echocardiogram performed for monochorionic diamniotic [...] to the left atrium. There is laminar nkqhl-pn-bjer shunting across the foramen ovale. Atrioventricular valves: [...] Procedure Note Luc Dominguez MD - 11/30/2024 [id number]^ZAK^YOBANI Study ID:[id number] [facility] [address] [address] Echocardiogram Name: DEANDRE LEYVA Study Date: 11/30/2024 01:42 PM Patient Location: [facility] Gender: Female Patient Class:Outpatient : 1995 Age: 29 yrs Ordering Provider: YOBANI CRESPO Referring Provider: YOBANI CRESPO Performed By: Daphney Dao RDCS Reading Physician: Luc Dominguez MD Reason For Study: Monochorionic diamniotic twin gestation in [facility] Data: Number of fetuses: This is a twin gestation. Due date: 04/07/2025. Gestational age: 21w5d. Delivery at: [place]. Specific Indication: echocardiogram performed formonochorionic diamniotic twins. [...] breech position. The fetus [facility]. The heart is in left chest. [...] in to the left atrium. There is botridnlhzrf-wh-mfee shunting across the foramen ovale. Atrioventricular valves: [...] Final * ECHO COMPLETE (11/30/2024 1:46 PM PIANO PROFESSOR) Anatomical Region Laterality Modality Echocardiography 11/30/2024 1:31 PM PIANO PROFESSOR Narrative 11/30/2024 2:02 PM PIANO PROFESSOR [id number] REPLACED BY [facility] [id number]^ZAK^YOBANI Study ID: [id number] [facility] [address] Echocardiogram Name: DEANDRE LEYVA Study Date: 11/30/2024 [...] date: 04/07/2025. Gestational age: 21w5d. Delivery at: [place]. Specific Indication: echocardiogram performed for monochorionic diamniotic [...] to the left atrium. There is laminar ytzuo-jn-kohd shunting across the foramen ovale. Atrioventricular valves: [...] Procedure Note Luc Dominguez MD - 11/30/2024 [id number]^ZAK^YOBANI Study ID:[id number] [facility] [address] [place] [address] Echocardiogram Name: DEANDRE LEYVA Study Date: 11/30/2024 01:31 PM Patient Location: [facility] Gender: Female Patient Class:Outpatient : 1995 Age: 29 yrs Ordering Provider: YOBANI CRESPO Referring Provider: YOBANI CRESPO Performed By: Daphney Dao RDCS Reading Physician: Luc Dominguez MD Reason For Study: [facility] Data: Number of fetuses: This is a twin gestation. Due date: 04/07/2025. Gestational age: 21w5d. Delivery at: [place]. Specific Indication: echocardiogram performed formonochorionic diamniotic twins. [...] in to the left atrium. There is uvniahphyaco-lz-gyht shunting across the foramen ovale. Atrioventricular valves: [...] MFM Twins US Comprehensive (11/14/2024 11:59 AM PIANO PROFESSOR) Anatomical Region Laterality Modality Ultrasound 11/14/2024 10:2 4 AM PIANO PROFESSOR Impressions 11/14/2024 4:40 PM PIANO PROFESSOR IMPRESSION ----- Monochorionic diamniotic twin gestation at [...] anemia polycythemia syndrome. Narrative 11/14/2024 4:40 PM PIANO PROFESSOR Comprehensive ----- Pat. Name: DEANDRE LEYVA Study Date: 11/14/2024 10:24am Pat. NO: [id number] Referring : ZAKIA CUELLAR Site: Field Placement Director: Emerita Corona RDMS : 1995 Age: 29 [...] 0 lb 11 oz EFW by Hadlock (DIO-XY-UJ-FL) EFW discordance 30.6 % Head / Face / Neck Biometry: Microwave Technician 6.9 mm CM 2.6 mm Nasal bone [...] 0 lb 8 oz EFW by Hadlock (AFE-PU-NT-FL) EFW discordance 30.6 % Head / Face / Neck Biometry: Microwave Technician 6.8 mm CM 4.4 mm Extremities / [...] view. RVOT view. LVOT view. 3-vessel view. 3-otdqqf-xicwomr view. Situs. Aortic arch view. Bicaval view. [...] Thorax 4-chamber view. RVOT view. LVOT view. 7-dwartf-gvbhgar view. Aortic arch view. sex: female. Fetus [...] recommendation. She was again offered referral to [facility] for a second opinion/discussion about options in [...] the patient (reviewing medical records/tests), in direct ezef-fr-vbim contact with the patient counseling and discussing the plan of care, documenting the visit in the electronic medical record, and communicating with other health nurse care manager and/or care coordination. Please see note for details. Procedure Note Flower Amato MD - 11/14/2024 Comprehensive ----- Pat. Name: DEANDRE LEYVA Study Date: 11/14/2024 10:24am Pat. NO: [id number] Referring MD: ZAKIA CUELLAR Site: Field Placement Director: Emerita Corona RDMS : 1995 Age: 29 [...] EFW (lb,oz) 0 lb 11oz EFW by Hadlock(NPJ-[id number]-FL) EFW discordance 30.6% Head / Face / Neck Biometry: Microwave Technician 6.9mm CM 2.6mm Nasal bone 7.8mm Fetus 2: BIOMETRY ----- BPD 42.9mm 19w 0dHadlock OFD 55.1mm 18w 2dNicolaides HC 156.8mm 18w 4dHadlock Cerebellum tr 18.1mm 18w 0dNicolaides Nuchal fold 3.0mm AC 128.0mm 18w 3d 15%Hadlock Femur 24.5mm 17w 3dHadlock Humerus 23.5mm 17w 2dJeanty Weight Calculation: EFW 219g 2%Hadlock EFW (lb,oz) 0 lb 8oz EFW by Hadlock(UKZ-QB-XN-FL) EFW discordance 30.6% Head / Face / Neck Biometry: Microwave Technician 6.8mm CM 4.4mm Extremities / Bony Struc [...] 4-chamber view. RVOT view. LVOT view.3-vessel view. 2-djbzqt-rmwdhfx view. Situs. Aortic arch view. Bicavalview. Ductal [...] / Thorax 4-chamber view. RVOT view. LVOT view.3-phkfig-hnkqovu view. Aortic arch view. sex: female. Fetus [...] the recommendation. She was again offered referralto [facility] for a second opinion/discussion about options in [...] see the patient(reviewing medical records/tests), in direct iutj-dm-hufk contact with the patient counseling and discussingthe plan of care, documenting the visit in the electronic medical record,and communicating with other health nurse care manager and/or care coordination. Please see [...] anemia polycythemia syndrome. us Yobani Crespo MD [facility] US ORDERABLES Edited Result - Final * MFM Twins US OB Complete 2/3 Tri (10/19/2024 1:39 PM PIANO PROFESSOR) Anatomical Region Laterality Modality Ultrasound 10/19/2024 11:0 2 AM PIANO PROFESSOR Impressions 10/21/2024 3:34 PM PIANO PROFESSOR IMPRESSION ----- Monochorionic diamniotic twin gestation at [...] long and closed. Narrative 10/21/2024 3:34 PM PIANO PROFESSOR 2nd / 3rd Trim ----- Pat. Name: DEANDRE LEYVA Study Date: 10/19/2024 11:02am Pat. NO: [id number] Referring MD: ZAKIA CUELLAR Site: Field Placement Director: Chantell Jarquin RDMS : 1995 Age: 29 [...] 0 lb 5 oz EFW by Hadlock (IPD-MB-BI-FL) EFW discordance 26.5 % Head / Face / Neck Biometry: Microwave Technician 6.3 mm CM 2.2 mm Nasal bone [...] 0 lb 4 oz EFW by Hadlock (DTZ-KT-EC-FL) EFW discordance 26.5 % Head / Face / Neck Biometry: Microwave Technician 6.7 mm CM 2.5 mm Fetus 1: [...] Heart / Thorax 4-chamber view. 3-vessel view. 5-avcsei-zpsafel view. sex: female. Fetus 2: ANATOMY ----- [...] Profile. Nose. Maxilla. Mandible. Heart / Thorax 4-nsyntn-uadnlky view. Aortic arch view. Bicaval view. Ductal [...] discussed the option a referral to the [facility] to discuss the option of [...] the patient (reviewing medical records/tests), in direct vweu-oy-xvhr contact with the patient during the visit counseling and discussing the plan of care and documenting the visit in the electronic medical record. Procedure Note Yobani Crespo MD - 10/22/2024 Trim ----- Pat. Name: DEANDRE LEYVA Study Date: 10/19/2024 11:02am Pat. NO: [id number] Referring MD: ZAKIA CUELLAR Site: Field Placement Director: Chantell Jarquin RDMS : 1995 Age: 29 [...] EFW (lb,oz) 0 lb 5oz EFW by Hadlock(UKV-GQ-LB-FL) EFW discordance 26.5% Head / Face / Neck Biometry: Microwave Technician 6.3mm CM 2.2mm Nasal bone 4.1mm Fetus 2: BIOMETRY ----- BPD 31.4mm 15w 6dHadlock OFD 38.8mm -/-Nicolaides HC 112.9mm 15w 3dHadlock Cerebellum tr 15.8mm 15w 6dNicolaides Nuchal fold 2.1mm AC 89.7mm 15w 1d 34%Hadlock Femur 16.0mm 14w 5dHadlock Humerus 16.1mm 14w 4dJeanty Weight Calculation: EFW 113g 9%Hadlock EFW (lb,oz) 0 lb 4oz EFW by Hadlock(YXJ-OC-SI-FL) EFW discordance 26.5% Head / Face / Neck Biometry: Microwave Technician 6.7mm CM 2.5mm Fetus 1: ANATOMY ----- [...] pellucidi. Heart / Thorax 4-chamber view. 3-vessel view.3-wecfoq-lalbgmk view. sex: female. Fetus 2: ANATOMY ----- [...] Lips. Profile. Nose. Maxilla.Mandible. Heart / Thorax 6-dppebr-trizcyf view. Aortic archview. Bicaval view. Ductal arch [...] discussed the option a referral to the [facility] todiscuss the option of [facility] [...] see the patient(reviewing medical records/tests), in direct vdmm-be-nssz contact with the patient during the visitcounseling [...] long and closed. us Zakia Cuellar MD [facility] ORDERABLES Edited Re sult - Final from Last 3 Months Insurance [facility] Care Teams Infrastructure Manager Relationship Specialty Start Date End Date No Ref-Primary, Physician PCP - General 12/04/21 Flower Amato MD [address] [place] [id number] Assigned OBGYN Provider 11/22/24
--- OUTSIDE RECORDS SUMMARY | 2024-12-01 11:25 | XMS_ITS | Encounter Summary ---
Author Organization [facility] Address [address] [place] [address] Care Team Providers Care Purchasing Supervisor Name Role Phone No Ref-Primary, Physician [...] on file Legal Sex Female 11:44 PM SET UP MECHANIC STAMPING MACHINES Gender Identity Not on file Sexual Orientation Not on file documented as of this encounter Plan of Treatment Upcoming Encounters Date Type Department Care Team (Late st Contact Info) Description 12/03/2024 2:15 PM SET UP MECHANIC STAMPING MACHINES Appointment [facility] [place] [address] [place], [place] [address] [place] [phone] Nicole Núñez MD [address] [place] [address] [phone] 12/03/2024 2:45 PM SET UP MECHANIC STAMPING MACHINES Office Visit [facility] [place] [address] [place] [address] [phone] Nicole Núñez MD [address] [place] [address] 12/06/2024 9:30 AM SET UP MECHANIC STAMPING MACHINES Appointment [facility] Maternal Medicine [place] [address] [place] [phone] Nicole Núñez MD [address] [place] [address] 12/06/2024 10:00 AM SET UP MECHANIC STAMPING MACHINES Office Visit [facility] Maternal Medicine [place] [address] [facility] [address] [place] [phone] Nicole Núñez MD [address] [place] [address] 12/13/2024 9:30 AM SET UP MECHANIC STAMPING MACHINES Appointment [facility] Maternal Medicine [place] [address] [place] [phone] Nicole Núñez MD [address] [place] [address] 12/13/2024 10:00 AM SET UP MECHANIC STAMPING MACHINES Office Visit [facility] Maternal Medicine [place] [address] [place] [phone] Nicole Núñez MD [address] [place] [address] 12/19/2024 9:30 AM SET UP MECHANIC STAMPING MACHINES Appointment [facility] Maternal Medicine [place] [address] [place] [phone] Nicole Núñez MD [address] [place] [address] 12/19/2024 10:00 AM SET UP MECHANIC STAMPING MACHINES Office Visit [facility] Maternal Medicine [place] [address] [place] [phone] Nicole Núñez MD [address] [place] [address] 12/28/2024 10:15 AM SET UP MECHANIC STAMPING MACHINES Appointment [facility] Medicine [place] [address] [place] [phone] Diane Lopez MD [address] [place], [place] [address] 12/28/2024 10:45 AM SET UP MECHANIC STAMPING MACHINES Office Visit [facility] Maternal Medicine [place] [address] [place] [phone] Diane Lopez MD [address] [place], [place] 353064 01/11/2025 10:15 AM CDT Appointment [facility] Medicine [place] [address] [facility] [address] [place] [phone] Diane Lopez MD [address] [place], [place] 5[address]44 01/11/2025 10:45 AM CDT Office Visit [facility] [place] [address] [facility] [address] [place] [phone] Dinae Lopez MD [address] [place], [place] 620364 documented as of this encounter Visit Diagnoses Not on filedocumented in this encounter Care Teams Purchasing Supervisor Relationship Specialty Start Date End Date No Ref-Primary, Physician PCP - General 2/4/22 documented as of this encounter
--- OUTSIDE RECORDS SUMMARY | 2024-12-01 11:25 | XMS_ITS | Encounter Summary ---
Author Organization [facility] Address [address] [place] [address] Care Team Providers Care Clinical Fellow Name Role Phone No Ref-Primary, Physician Primary Care Provider Encounter Details Date Type Department Care Team (Late st Contact Info) Description 10/09/2024 Medical Correspondence [facility] Health Information Management [address] [facility] [address] [place] [address] Scan, Non-Provider Social History Tobacco Use Types [...] on file Legal Sex Female 11:44 PM AIR CARGO AGENT Gender Identity Not on file Sexual Orientation Not on file documented as of this encounter Plan of Treatment Upcoming Encounters Date Type Department Care Team (Late st Contact Info) Description 12/03/2024 2:15 PM AIR CARGO AGENT Appointment [facility] Maternal Medicine Center [address] [phone] Nicole Núñez MD [address] [place] [address] 307754 12/03/2024 2:45 PM AIR CARGO AGENT Office Visit [facility] M[facility] Center [address] [phone] Nicole Núñez MD [address] [place] [address] 12/06/2024 9:30 AM AIR CARGO AGENT Appointment [facility] M[facility] Medicine Center [place] [address] [place] [phone] Nicole Núñez MD [address] [place] [address] 12/06/2024 10:00 AM AIR CARGO AGENT Office Visit [facility] Maternal Medicine [place] [address] [facility] [address] [place] [phone] Nicole Núñez MD [address] [place] [address] 12/13/2024 9:30 AM AIR CARGO AGENT Appointment [facility] Maternal Medicine [place] [address] [place] [phone] Nicole Núñez MD [address] [place] [address] 12/13/2024 10:00 AM AIR CARGO AGENT Office Visit [facility] Maternal Medicine [place] [address] [place] [phone] Nicole Núñez MD [address] [place] [address] 12/19/2024 9:30 AM AIR CARGO AGENT Appointment [facility] M[facility] Medicine Center [place] [address] [place] [phone] Nicole Núñez MD [address] [place] [address] 12/19/2024 10:00 AM AIR CARGO AGENT Office Visit [facility] Medicine [facility] [address] [place] [address] Nicole Núñez MD [address] [place] [address] 12/28/2024 10:15 AM AIR CARGO AGENT Appointment [facility] Medicine [place] [address] [facility] [address] [place] [phone] Diane Lopez MD [address] [place] [address] 12/28/2024 10:45 AM AIR CARGO AGENT Office Visit [facility]aternal Medicine [place] [address] [facility] [address] [place] [phone] Diane Lopez MD [address] [place], [place] [address] 01/11/2025 10:15 AM CDT Appointment [facility] Medicine [place] [address] [address] [facility] [address] [place] [phone] Diane Lopez MD [address] [place] [address] 01/11/2025 10:45 AM CDT Office Visit [facility] Maternal Medicine [place] [address] [facility] [address] [place] [phone] Diane Lopez MD [address] [place] [address] documented as of this encounter Visit Diagnoses Not on filedocumented in this encounter Care Teams Clinical Fellow Relationship Specialty Start Date End Date No Ref-Primary, Physician PCP - General 12/04/21 documented as of this encounter
--- OUTSIDE RECORDS SUMMARY | 2024-12-01 11:26 | XMS_ITS | Encounter Summary ---
Author Organization [facility] Address [address] [place] [address] Care Team Providers Care Ecommerce Manager Name Role Phone No Ref-Primary, Physician Primary Care Provider Reason for Visit * Diagnostic Imaging Ultrasound (Routine) - Pending Review Specialty Diagnoses / Procedures Referred By Contac t Referred To Contact Radiology. Diagnoses Monochorionic diamniotic twin gestation Procedures MFM Twins US Comprehensive F/U Diane Lopez MD [address] [place] [address] [address] [place] [address] Phone: tel: fax: Referral ID Status Reason Start Date Expiration Date V isits Requested Visits Authorized [id number] Pending Review 10/19/2024 10/19/2025 1 1 Encounter Details Date Type Department Care Team (Latest Contact Info) Description 10/26/2024 11:00 AM HOISTING ENGINEER Ancillary Procedure [facility] Maternal Medicine Center [address] [place] [phone] Estrella Esteban MD [address] [place] [address] [address] [place], [place] [phone] 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 [...] on file Legal Sex Female 11:44 PM HOISTING ENGINEER Gender Identity Not on file Sexual Orientation Not on file documented as of this encounter Plan of Treatment Upcoming Encounters Date Type Department Care Team (Late st Contact Info) Description 12/03/2024 2:15 PM HOISTING ENGINEER Appointment [facility] Maternal Medicine [facility] [address] [place] [phone] Nicole Núñez MD [address] [place] [address] 12/03/2024 2:45 PM HOISTING ENGINEER Office Visit [facility] Maternal Medicine [facility] [address] [place] [address] Nicole Núñez MD [address] [place] [address] 12/06/2024 9:30 AM HOISTING ENGINEER Appointment [facility] Maternal Medicine [facility] [address] [place] [phone] Nicole Núñez MD [address] [place] [address] 12/06/2024 10:00 AM HOISTING ENGINEER Office Visit [facility] Maternal Medicine [facility] [address] [place] [phone] Nicole Núñez MD [address] [place] [address] 12/13/2024 9:30 AM HOISTING ENGINEER Appointment [facility] Maternal Medicine [facility] [address] [place] [phone] Nicole Núñez MD [address] [place] [address] 12/13/2024 10:00 AM HOISTING ENGINEER Office Visit [facility] Medicine [facility] [place] [address] [place] [phone] Nicole Núñez MD [address] [place] [address] 12/19/2024 9:30 AM HOISTING ENGINEER Appointment [facility] Maternal Medicine [place] [address] [place] [phone] Nicole Núñez MD [address] [facility] [place] [address] 12/19/2024 10:00 AM HOISTING ENGINEER Office Visit [facility] M[facility] Medicine Center [place] [address] [place] [phone] Nicole Núñez MD [address] [facility] [place] [address] 12/28/2024 10:15 AM HOISTING ENGINEER Appointment [facility] Maternal Medicine [place] [address] [place] [phone] Diane Lopez MD [address] [address] 12/28/2024 10:45 AM HOISTING ENGINEER Office Visit [facility] M[facility] Medicine Center [place] [address] [place] [phone] Diane Lopez MD [address] [address] 01/11/2025 10:[address] [facility] Maternal Medicine [facility] [address] [place] [address] Diane Lopez MD [address] [place], [place] [address] 01/11/2025 10:45 AM CDT Office Visit [facility] Maternal Medicine [facility] [address] [place] [phone] Diane Lopez MD [address] [place], [place] [phone] documented as of this encounter Procedures Procedure Name Priority Date/Time Associated Diagnosis Comments MFM TWINS US COMPREHENSIVE F/U Routine 10/26/2024 11:48 AM HOISTING ENGINEER 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 documented in this encounter Results * MFM Twins US Comprehensive F/U (10/26/2024 11:48 AM HOISTING ENGINEER) Anatomical Region Laterality Modality Ultrasound 10/26/2024 11:0 5 AM HOISTING ENGINEER Impressions 10/26/2024 1:47 PM HOISTING ENGINEER IMPRESSION ----- Monochorionic diamniotic twin gestation [...] increased MCA PSV. Narrative 10/26/2024 1:47 PM HOISTING ENGINEER [facility] US ----- Pat. Name: HEATHER CHÁVEZ Study Date: 10/26/2024 11:05am Pat. NO: [id number] Referring MD: PAMELA CUELLAR Site: Auto Winder: Drea Varela RDMS : 1995 Age: 29 [...] reviewed the option to consult with the [place] [facility] to discuss the option of SLFP further. At this time, they wish to continue expectant management as they would not consider termination. We also reviewed the possibility of prolonged antepartum admission at the time they are accepting of intervention if the continues to advance. They understand that admission would be recommended at [facility]. We reviewed the difficult decisions that [...] the patient (reviewing medical records/tests), in direct bcaw-ca-ccih contact with the patient during the visit counseling and discussing the plan of care and documenting the visit in the electronic medical record. Procedure Note Estrella Esteban MD - 10/26/2024 Surveillance US ----- Pat. Name: HEATHER CHÁVEZ Study Date: 10/26/2024 11:05am Pat. NO: [id number] Referring MD: PAMELA CUELLAR Site: Auto Winder: Drea Varela RDMS : 1995 Age: 29 [...] reviewed the option to consult with the [place] [facility] to discuss theoption of SLFP further. At this time, they wish to continue expectantmanagement as they would not consider termination. We also reviewed the possibility of prolongedantepartum admission at the time they are accepting of intervention if thepregnancy continues to advance. They understand that admission would be recommended at [facility]. We reviewed the difficult decisions that [...] see the patient(reviewing medical records/tests), in direct kgre-ha-cltx contact with the patient during the visitcounseling [...] demonstrate increased MCAPSV. us Diane Lopez MD [facility] US ORDERABLES Edited Result - Final documented in this encounter Visit Diagnoses Diagnosis 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 documented in this encounter Care Teams Ecommerce Manager Relationship Specialty Start Date End Date No Ref-Primary, Physician PCP - General 12/04/21 documented as of this encounter
--- OUTSIDE RECORDS SUMMARY | 2024-12-01 11:26 | XMS_ITS | Encounter Summary ---
Author Organization [facility] Address [address] [place] [address]. [place] [address] Care Team Providers Care Volunteer Recruiter Name Role Phone No Ref-Primary, Physician Primary Care Provider Reason for Visit * Reason Comments Ultrasound TTTS, MCA/UAR for mo no/di twins Encounter Details Date Type Department Care Team (Late st Contact Info) Description 10/26/2024 11:30 AM DIGITAL CAMPAIGN SPECIALIST Office Visit [facility] M[facility] Medicine Center [address] [phone] Estrella Esteban MD [address] [facility] [address] [place], [place] [address] 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 [...] on file Legal Sex Female 11:44 PM DIGITAL CAMPAIGN SPECIALIST Gender Identity Not on file Sexual Orientation Not on file documented as of this encounter Progress Notes * Estrella Esteban MD - 10/26/2024 11:30 AM CST The patient was seen for an ultrasound in the [facility] Maternal- Medicine Center today. For a detailed report of the ultrasound examination, please see the ultrasound report which can be found under the imaging tab. If you have questions regarding today's evaluation or if we can be of further service, please contact the Maternal- Medicine Center. Estrella Esteban MD Maternal Medicine TAL CAMPAIGN SPECIALIST documented in this encounter Nursing Notes * Leonor Allen RN - 10/26/2024 11:30 AM CST Heather Chávez is a at 15w5d who presents to [facility] for a TTTS check for mono/di twins. Pt reports positive movement. Pt denies bldg/lof/change in discharge, contractions, headache, visionchanges, chest pain/SOB or edema. SBAR given to Dr. June Esteban, see note in Epic. Leonor Allen RN TAL CAMPAIGN SPECIALIST documented in this encounter Plan of Treatment Upcoming Encounters Date Type Department Care Team (Late st Contact Info) Description 12/03/2024 2:15 PM DIGITAL CAMPAIGN SPECIALIST Appointment [facility] Medicine [address] [phone] Nicole Núñez MD [address] [place] [address] 12/03/2024 2:45 PM DIGITAL CAMPAIGN SPECIALIST Office Visit [facility] Maternal Medicine [address] [address] Nicole Núñez MD [address] [place] [address] 12/06/2024 9:30 AM DIGITAL CAMPAIGN SPECIALIST Appointment [facility] Maternal Medicine [facility] [address] [place] [address] Nicole Núñez MD [address] [place] [address] 12/06/2024 10:00 AM DIGITAL CAMPAIGN SPECIALIST Office Visit [facility] M[facility] Medicine Center [place] [address] [place] [phone] Nicole Núñez MD [address] [place] [address] 12/13/2024 9:30 AM DIGITAL CAMPAIGN SPECIALIST Appointment [facility] Maternal Medicine [place] [address] [place] [phone] Nicole Núñez MD [address] [place] [address] 12/13/2024 10:00 AM DIGITAL CAMPAIGN SPECIALIST Office Visit [facility] Maternal Medicine Center [place] [address] [place] [phone] Nicole Núñez MD [address] [place] [address] 12/19/2024 9:30 AM DIGITAL CAMPAIGN SPECIALIST Appointment [facility] Maternal Medicine [place] [address] [place] [phone] Nicole Núñez MD [address] [place] [address] 12/19/2024 10:00 AM DIGITAL CAMPAIGN SPECIALIST Office Visit [facility] Maternal Medicine Center [place] [address] [place] [phone] Nicole Núñez MD [address] [place] [address] 12/28/2024 10:15 AM DIGITAL CAMPAIGN SPECIALIST Appointment [facility] Maternal Medicine [place] [address] [place] [phone] Diane Lopez MD [address] [place] [address] 12/28/2024 10:45 AM DIGITAL CAMPAIGN SPECIALIST Office Visit [facility] Maternal Medicine [place] [address] [place] [phone] Diane Lopez MD [address] [place] [address] 01/11/2025 10:15 AM CDT Appointment [facility] Maternal Medicine [place] [address] [place] [phone] Diane Lopez MD [address] [place] [address] 01/11/2025 10:45 AM CDT Office Visit [facility] Maternal Medicine [place] [address] [place] [phone] Diane Lopez MD [address] [place] [address] documented as of this encounter Visit Diagnoses Diagnosis 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- Primary growth restriction antepartum documented in this encounter Care Teams Volunteer Recruiter Relationship Specialty Start Date End Date No Ref-Primary, Physician PCP - General 12/04/21 documented as of this encounter
[2024-12-01 11:38] LABS: PCR FLU A Negative PCR FLU A (Negative); PCR FLU B Negative PCR FLU B (Negative); PCR RSV Negative PCR RSV (Negative); SARS PCR* Negative SARS-CoV-2 (Negative)
[2024-12-01 11:47] LABS: HCO3 VBG 25 mmol/L (21-28); PCO2 VBG 41 mmHG (40-50); PO2 VBG 43.6 mmHG (25-47)
[2024-12-01 11:48] LABS: Basophils Absolute Auto 0.02 K/uL (0.00-0.30); Basophils Percent Auto 0.4 % (0.0-3.0); Eosinophils Absolute Auto 0.01 K/uL (0.00-0.50); Eosinophils Percent Auto 0.2 % (0.0-7.0); Hematocrit 34.8 % (33.0-51.0); Hemoglobin* 10.9 gm/dL (12.0-16.0); Immature Granulocytes Abs Auto 0.01 K/uL (0.00-0.30); Immature Granulocytes Pct Auto 0.2 %; Lymphocytes Absolute Auto 1.31 K/uL (0.90-2.90); Lymphocytes Percent Auto 27.5 % (20-44); Mean Corpuscular HGB Conc 31 gm/dL (32-36); Mean Corpuscular Hemoglobin 24 pg (26-34); Mean Corpuscular Volume 78 fL (80-100); Monocytes Percent Auto 6.5 % (0.0-11.0); Neutrophils Absolute Auto 3.11 K/uL (1.7-7.0); Neutrophils Percent Auto 65.2 % (42.0-72.0); Platelet Count* 227 K/uL (140-440); RDW Coefficient of Variation % 14.6 % (11.5-15.5); Red Blood Count 4.48 m/uL (4.00-5.20); White Blood Count* 4.77 K/uL (4.50-11.00)
[2024-12-01 11:51] LABS: Lactate* 0.9 mmol/L (0.5-1.9)
[2024-12-01 12:07] LABS: Albumin* 3.8 g/dL (3.3-5.0); Chloride* 103 mmol/L (96-114)
[2024-12-01 12:08] LABS: D Dimer Quantitative* 2.58 ug/ml (0.00-0.50); Potassium* 3.8 mmol/L (3.6-5.1); Sodium* 135 mmol/L (135-149)
[2024-12-01 12:10] LABS: Anion Gap 8 mEq/L (7-15); Aspartate Amino Transferase* 27 U/L (12-35); Bilirubin Direct* 0.1 mg/dL (0.0-0.5); Bilirubin Total* 0.3 mg/dL (0.1-1.5); Carbon Dioxide* 24 mmol/L (20-32); Creatinine* 0.4 mg/dL (0.5-1.5); Est. Creatinine Clearance* 185.05; Estimated Glomerular Filt Rate 136 ml/min
[2024-12-01 12:11] LABS: Alanine Aminotransferase* 26 U/L (4-35); Alkaline Phosphatase* 79 U/L (40-150); Blood Urea Nitrogen* 10 mg/dL (5-24); Calcium* 8.9 mg/dL (8.4-10.6); Glucose* 88 mg/dL (60-115); Lipase* 97 U/L (23-300); Magnesium* 1.9 mg/dL (1.5-2.6)
[2024-12-01 12:12] LABS: Slide Review Reflex No
[2024-12-01 12:18] LABS: C Reactive Protein* < 0.5 mg/dL (0.5-1.0)
[2024-12-01 12:22] LABS: NT Pro B Type NatriureticPept* < 20 pg/mL; Troponin I* < 0.01 ng/mL (0.01-0.04)
[2024-12-01 12:40] VITALS: O2SAT 95
[2024-12-01 12:42] VITALS: BP 104/83; PULSE 65; RESP 16; O2SAT 100
[2024-12-01] MEDS: PANTOPRAZOLE SODIUM 40 MG INJ IVP (13:39)
== END 2024-12-01 13:50 | disposition home or self-care (01) ==
PROVIDERS: Emergency Provider Family Medicine; PCP Obstetrics & Gynecology
DX: K21.9 Gastro-esophageal reflux disease without esophagitis (principal); Z3A.22 22 weeks gestation of pregnancy; R06.00 Dyspnea, unspecified; O99.019 Anemia complicating pregnancy, unspecified trimester
CPT/HCPCS: 36415; 71275; 76705; 76815; 80053; 82248; 82803; 83605; 83690; 83735; 83880; 84484; 85025; 85379; 86140; 87631; 93005; 94761; 96374; 99285; J2470; Q9967

== ENCOUNTER 2024-12-07 20:19 | Emergency (ER) | payer MEDICAID, SELFPAY ==
--- OUTSIDE RECORDS SUMMARY | 2024-12-07 20:21 | XMS_ITS | Clinical Summary ---
Author Organization [facility] Address [place], [place] [address] Care Team Providers Care Store Cashier Name Role Phone Merline Duffy MD Unavailable [phone]- [phone] Amina Gardner MD Primary Care Provider Allergies [...] Vag 7 9 KOPYL OV,BB HEATHER Delivery Location:[facility]) Last Filed Vital Signs Vital [...] ve Non-Reacti ve 04/15/2019 10:[address] [facility] Blood BLOOD SPECIMEN / Unknown Add On / Unknown 04/15/2019 10:29 AM CDT 04/15/2019 10:22 PM CDT Amina Gardner MD SEND OUTS Final Result [place] [id number] [place] [address] * Patient Source ANTI HCV (04/15/2019 10:29 AM CDT) HEPATITIS C ANTIBODY Non-React pamella Non-React pamella 04/16/2019 5:11 PM CDT [facility] Comment:Antibodies to HCV no t detected; does not exclude the possibility of exposure to HCV. Blood BLOOD SPECIMEN / Unknown Venipuncture / Unknown 04/15/2019 10:29 AM CDT 04/15/2019 10:35 AM CDT us Amina Gardner MD SEND OUTS Final Result [facility] [address] [place] [address], [place] from Last 3 Months or Most Recently Relevant to Health Maintenance Insurance [employer] Advance Directives * Full Code (Latest Code Status on File) Date Activated Date Inactivated Comments 04/15/2019 9:55 PM 04/17/2019 11:28 PM Question Answer Comments Code Status Discussion: Not Discussed Care Teams Store Cashier Relationship Specialty Start Date End Date Amina Gardner MD [address] [facility] [address] [place] [address] PCP - General Family Practice 12/08/18 Merline Duffy MD [address] [facility] [address] [place] [address] Family Practice 03/22/18
--- OUTSIDE RECORDS SUMMARY | 2024-12-07 20:21 | XMS_ITS | Data Portability ---
Author Organization [place] - [employer], [employer] - [employer] DES[employer] ENGINEER [employer] AN Address [address] [place] [address] Assessment Encounter Date Assessment Date Assessment LastModified [...] Organization Details Recorded Time Low back pain 556016578 Active 2023 Moise Mensah DC [address] [facility] [address], [place], [address], [facility] 4 18:46:52 Thoracic segmental dysfunction 333105221 Active 2023 Moise Mensah DC [address], [place], [address], [facility] 4 18:46:52 Lumbar segmental dysfunction 334387005 Active 2023 Moise Mensah DC [address] [facility] [address], [place], [address], [facility] 4 18:46:52 Somatic dysfunction of sacral spine 494331304 Active 2023 Moise Mensah DC [address], [place], [address], [facility] 4 18:46:52 Neck pain 73155150 Active 2023 Moise Mensah DC [address] [facility] [address], [facility] [place], [address], [facility] 4 18:46:54 Cervical segmental dysfunction 830413178 Active 2023 Moise Guzman [place] [address], [facility] [place], [address], [facility] 4 18:46:54 Problem Notes None recorded. Procedures Surgical History Date Name Laterality Status Provider Name and Address Organization Details Recorded Time 5 14495: Spinal manipulation , 3 to 4 regions completed Gerry Le, [place] [address], [place], [address], [facility] 12/04/2024 11:22:55 5 [address]: Spinal manipulation , 3 to 4 regions completed Gerry Le DC [address] [facility] [address], [place], [address], [facility] 11/07/2024 12:03:29 4 [address]: Spinal manipulation , 3 to 4 regions completed Moise Mensah DC [address] [facility] [address], [place], [address], [facility] 10/30/2024 18:49:30 Imaging Results None recorded. [...] SNOMED-CT Code Diagnosis ICD10 Code Diagnosis Note [id number] Moise Mensah DC [facility] & [address] [facility] [place] [address] 10/30/2024 16:03:14 10/30/2024 19:26:07 Lumbar segmental dysfunction 075669400 M99.03 Low back pain 599984191 M54.50 Somatic dy sfunction of sacral spine 203711331 M99.04 Thoracic s egmental dysfunction 386860377 M99.02 Cervical s egmental dysfunction 461287639 M99.01 Neck pain 67265584 M54.2 [id number] [place] [facility] & [address] [facility] [place] [address] 11/07/2024 10:39:00 11/07/2024 12:17:20 Lumbar segmental dysfunction 244074006 M99.03 Low back pain 038856496 M54.50 Somatic dy sfunction of sacral spine 923302617 M99.04 Thoracic s egmental dysfunction 402590159 M99.02 [id number] Gerry Le DC [facility] & [address] [facility] [place] [address] 11/29/2024 17:27:32 12/04/2024 11:23:40 Cervical segmental dysfunction 371793218 M99.01 Thoracic s egmental dysfunction 883783924 M99.02 Neck pain 02184376 M54.2 Somatic dy sfunction of sacral spine 905406031 M99.04 Health Concerns Section Related Observation LastModified by Organization Detai ls LastModified Time None Recorded Concern Status LastModified by Organization Details LastModified Time None Recorded Advance Directives Directive None Recorded Payers Encounter Date Sequence Insurance Name Policy Number Policy Samuel Covered Member ID Samuel Member ID Guarantor Name 10/30/2024 1 *SELF PAY* Em matthew Kopylov 11/07/2024 [facility] Heather Mariev [id number] Heather Wongpylov 11/29/2024 1 [employer] - INDIVIDUAL AND FAMILY (HMO) [id number] Heather Wongpylov [id number] Heather Wongpylov Notes Date Note Type Note Provider Name [...] carrying; twisting; bending/squatting 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 Neck and upper back pain and tightness with stress and some lower back pelvis pain. Moise Mensah DC [address], [place], [address], [facility] 10/30/2024 18:50:02 11/07/2024 text/html HPI - Lumbar SpineReported bypatient.Location: left; With radiation to knee Quality:aching Severity:not changing Timing:morning Aggravating Factors:standing Alleviating Factors:ice Gerry Le DC [address], [place], [address], [facility] 11/07/2024 12:03:52 11/29/2024 text/html HPI - Cervical SpineReported bypatient.Location: left Quality:aching Severity:moderate Duration:2 weeks Timing:gradual Alleviating Factors:ice Aggravating Factors:sitting Associated Symptoms:no numbness/tingling Gerry Jeanmarie Rey, DC [address], [place], [address], [place] - [facility] 12/04/2024 11:23:37 OBGyn Episode No OBEpisode recorded.
--- OUTSIDE RECORDS SUMMARY | 2024-12-07 20:22 | XMS_ITS | Encounter Summary ---
Author Organization [place] Address [address] [place] [address] Care Team Providers Care Bull Rider Name Role Phone No Ref-Primary, Physician Primary Care Provider Flower Amato MD Unavailable [phone] Encounter Details Date Type Department Care Team ([facility] Contact Info) Description 12/05/2021 Documentation Only INTERFACED REPORT Unknown, Provider Social History Tobacco Use Types Packs/Day Years Used Date Smoking Tobacco: Never Smokeless Tobacco: Never Alcohol Use Standard Drinks/Week Comments Never 0 (1 standard drink = 0.6 oz pur e alcohol) Comments No Sex and Gender Information Value Date Recorded Sex Assigned at Not on file Legal Sex Female 11:44 PM TAXICAB COORDINATOR Gender Identity Not on file Sexual Orientation Not on file COVID-19 Exposure Response Date Recorded In the last month, have you been in contact with someone who was confirmed or suspected to have Coronavirus / COVID-19? No / Unsure 12/08/2021 5:46 PM TAXICAB COORDINATOR documented as of this encounter Plan of Treatment Upcoming Encounters Date Type Department Care Team ([facility] Contact Info) Description 12/10/2024 1:30 PM TAXICAB COORDINATOR Appointment [facility] [place] [address] [place] [address] Jesus Harmon MD [address] [place] [id number] 12/10/2024 2:00 PM TAXICAB COORDINATOR Office Visit [facility] [place] [address] [place] [address] Jesus Harmon MD [address] [place] [address] 12/10/2024 2:15 PM TAXICAB COORDINATOR Office Visit [facility] [place] [address] [place] [address] Jesus Harmon MD [address] [place] [address] 12/12/2024 8:45 AM TAXICAB COORDINATOR Appointment [facility] Maternal Medicine [facility] [address] [place] [address] Diane Lopez MD [address] [address] 12/12/2024 9:15 AM TAXICAB COORDINATOR Office Visit [facility] Maternal Medicine [facility] [address] [place] [phone] Diane Lopez MD [address] [facility] [address] [address] 12/14/2024 1:30 PM TAXICAB COORDINATOR Ancillary Procedure [facility] Medicine [address] [address] Jesus Harmon MD [address] [place] [address] 12/14/2024 2:00 PM TAXICAB COORDINATOR Office Visit [facility]aternal Medicine [address] [address] Jessu Harmon MD [address] [place] [address] 12/17/2024 12:45 PM TAXICAB COORDINATOR Appointment [facility] [place] [address] [place] [address] Jesus Harmon MD [address] [place] [address] 12/17/2024 1:15 PM TAXICAB COORDINATOR Office Visit [facility] [place] [address] [place] [address] Jesus Harmon MD [address] [place] [address] 12/17/2024 1:30 PM TAXICAB COORDINATOR Office Visit [facility] [place] [address] [facility] [place] [address] Jesus Harmon MD [address] [place] [address] 12/19/2024 9:30 AM TAXICAB COORDINATOR Appointment [facility] Maternal Medicine [facility] [address] [facility] [address] [place] [phone] Nicole Núñez MD [address] [place] [address] Flower Amato MD [address] [facility] [address] [place] [address] 12/19/2024 10:00 AM TAXICAB COORDINATOR Office Visit [facility] Maternal Medicine [facility] [address] [facility] [address] [place] [address] Nicole Núñez MD [address] [place] [address] Flower Amato MD [address] [place] [address] 12/21/2024 11:45 AM TAXICAB COORDINATOR Appointment [facility] Maternal Medicine [facility] [address] [facility] [address] [place] [address] Jesus Harmon MD [address] [place] [address] Karin Esteban MD [address] [facility] [address] [address] 12/21/2024 12:15 PM TAXICAB COORDINATOR Office Visit [facility] M[facility] Medicine [place] [address] [address] [facility] [address] [place] [address] Jesus Harmon MD [address] [place] [address] Karin Esteban MD [address] [facility] [address] [address] 12/24/2024 11:00 AM TAXICAB COORDINATOR Appointment [facility] [place] [address] [facility] [place] [address] Jesus Harmon MD [address] [place] [address] 12/24/2024 11:30 AM TAXICAB COORDINATOR Office Visit [facility] [place] [address] [facility] [place] [address] Jesus Harmon MD [address] [place] [address] 12/24/2024 11:45 AM TAXICAB COORDINATOR Office Visit [facility] [place] [address] [place] [address] Jesus Harmon MD [address] [place] [address] 12/26/2024 10:15 AM TAXICAB COORDINATOR Appointment [facility] [place] [address] [place] [phone] Jesus Harmon MD [address] [place] [address] 12/26/2024 10:45 AM TAXICAB COORDINATOR Office Visit [facility] Maternal Medicine [place] [address] [address] [facility] [address] [place] [phone] Jesus Harmon MD [address] [place] [address] 12/28/2024 10:15 AM TAXICAB COORDINATOR Appointment [facility] Maternal Medicine [place] [address] [place] [phone] Diane Lopez MD [address] [place] [address] 12/28/2024 10:45 AM TAXICAB COORDINATOR Office Visit [facility] Maternal Medicine [place] [address] [place] [phone] Diane Lopez MD [address] [place] [address] 01/11/2025 10:15 AM CDT Appointment [facility] Maternal Medicine [place] [address] [place] [address] Diane Lopez MD [address] [place] [address] 01/11/2025 10:45 AM CDT Office Visit [facility] Maternal Medicine [facility] [address] [facility] [address] [place] [address] Diane Lopez MD [address] [place] [address] documented as of this encounter Visit Diagnoses Not on filedocumented in this encounter Care Teams Bull Rider Relationship Specialty Start Date End Date No Ref-Primary, Physician PCP - General 12/04/21 Flower Amato MD [address] [place] [address] Assigned OBGYN Provider 11/22/24 documented as of this encounter
--- OUTSIDE RECORDS SUMMARY | 2024-12-07 20:22 | XMS_ITS | Encounter Summary ---
Author Organization [employer] Address [address] [place] [address] Care Team Providers Care Clin Tech Name Role Phone No Ref-Primary, Physician Primary Care Provider Reason for Referral * Diagnostic Imaging Ultrasound (Routine) - Pending Review Specialty Diagnoses / Procedures Referred By Johnsonac maxx Referred To Contact Radiology. Diagnoses Monochorionic diamniotic twin gestation Procedures MFM Twins Diane Montez MD [address] [place] [address] Phone: tel: fax: Referral ID Status Reason Start Date Expiration Date V isits Requested Visits Authorized [id number] Pending Review 10/19/2024 10/19/2025 1 1 HANDLER Reason for Visit * Diagnostic Imaging Ultrasound (Routine) - Pending Review Specialty Diagnoses / Procedures Referred By Noa lilly Referred To Contact Radiology. Diagnoses Monochorionic diamniotic twin gestation Procedures MFM Twins Diane Montez MD [address] [place] [address] Phone: tel: fax: Referral ID Status Reason Start Date Expiration Date V isits Requested Visits Authorized [id number] Pending Review 10/19/2024 10/19/2025 1 1 Encounter Details Date Type Department Care Team (Latest Contact Info) Description 11/14/2024 10:09 AM HOG HANDLER - 11/14/2024 11:59 PM HOG HANDLER Hospital Encounter [facility] [place] [address] [facility] [address] [place] [address] Flower Amato MD [address] [place] [address] 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 [...] on file Legal Sex Female 11:44 PM HOG HANDLER Gender Identity Not on file Sexual Orientation [...] mouth 2 times daily 20 tablet 12/25/2022 5 ibuprofen (ADVIL/MOTRIN) 200 MG tabletIndications: Acute appendicitis with localized peritonitis, unspecified whether abscess present, unspecified whether gangrene present, unspecified whether perforation present Take 3 tablets (600 mg) by mouth every 6 hours as needed for moderate pain 100 tablet 12/04/2021 5 oxyCODONE (ROXICODONE) 5 MG tabletIndications: Acute appendicitis with localized peritonitis, unspecified whether abscess present, unspecified whether gangrene present, unspecified whether perforation present Take 1-2 tablets (5-10 mg) by mouth every 4 hours as needed for moderate to severe pain 12 tablet 12/04/2021 5 sertraline (ZOLOFT) 25 MG tablet Take 12.5 mg by mouth daily 5 documented as of this encounter Plan of Treatment Upcoming Encounters Date Type Department Care Team (Late st Contact Info) Description 12/10/2024 1:30 PM HOG HANDLER Appointment [facility] [address] [place] [address] Jesus Harmon MD [address] [place] [address] 12/10/2024 2:00 PM HOG HANDLER Office Visit [facility] [address] [place] [address] Jesus Harmon MD [address] [place] [address] 12/10/2024 2:15 PM HOG HANDLER Office Visit [facility] [address] [place] [address] Jesus Harmon MD [address] [place] [address] 12/12/2024 8:45 AM HOG HANDLER Appointment [facility] [address] [place] [phone] Diane Lopez MD [address] [address] 12/12/2024 9:15 AM HOG HANDLER Office Visit [facility] [address] [place] [phone] Diane Lopez MD [address] [facility] [address] [place] [address] 12/14/2024 1:30 PM HOG HANDLER Ancillary Procedure [facility] [address] [place] [address] Jesus Harmon MD [address] [place] [address] 12/14/2024 2:00 PM HOG HANDLER Office Visit [facility] [address] [place] [address] Jesus Harmon MD [address] [place] [address] 12/17/2024 12:45 PM HOG HANDLER Appointment [facility] [place] [address] [place] [phone] Jesus aHrmon MD [address] [place] [address] 12/17/2024 1:15 PM HOG HANDLER Office Visit [facility] [place] [address] [place] [address] Jesus Harmon MD [address] [place] [address] 12/17/2024 1:30 PM HOG HANDLER Office Visit [facility] [place] [address] [place] [address] Jesus Harmon MD [address] [place] [address] 12/19/2024 9:30 AM HOG HANDLER Appointment [facility] Maternal Medicine [facility] [address] [facility] [address] [place] [address] Nicole Núñez MD [address] [place] [address] Flower Amato MD [address] [address] 12/19/2024 10:00 AM HOG HANDLER Office Visit [facility] [place] [address] [place] [phone] Nicole Núñez MD [address] [place] [address] Flower Amato MD [address] [address] 12/21/2024 11:45 AM HOG HANDLER Appointment [facility] Maternal Medicine [place] [address] [place] [phone] Jesus Harmon MD [address] [place] [address] Karin Esteban MD [address] [address] 12/21/2024 12:15 PM HOG HANDLER Office Visit [facility] [place] [address] [place] [phone] Jesus Harmon MD [address] [place] [address] Karin Esteban MD [address] [address] [address] 12/24/2024 11:00 AM HOG HANDLER Appointment [facility] Maternal Medicine [address] [phone] Jesus Harmon MD [address] [place] [address] 12/24/2024 11:30 AM HOG HANDLER Office Visit [facility] [place] [address] [place] [address] Jesus Harmon MD [address] [place] [address] 12/24/2024 11:45 AM HOG HANDLER Office Visit [facility] [address] [place] [address] Jesus Harmon MD [address] [place] [address] 12/26/2024 10:15 AM HOG HANDLER Appointment [facility] Maternal Medicine [place] [address] [place] [phone] Jesus Harmon MD [address] [place] [address] 12/26/2024 10:45 AM HOG HANDLER Office Visit [facility] [place] [address] [place] [phone] Jesus Harmon MD [address] [place] [address] 12/28/2024 10:15 AM HOG HANDLER Appointment [facility] [place] [address] [place] [phone] Diane Lopez MD [address] [address] 12/28/2024 10:45 AM HOG HANDLER Office Visit [facility] [place] [address] [place] [phone] Diane Lopez MD [address] [place], [place] [address] 01/11/2025 10:15 AM CDT Appointment [facility] [place] [address] [place] [phone] Diane Lopez MD [address] [place], [place] [address] 01/11/2025 10:45 AM CDT Office Visit [facility] [place] [address] [place] [phone] Diane Lopez MD [address] [place], [place] [phone] documented as of this encounter Procedures Procedure Name Priority Date/Time Associated Diagnosis Comments MFM TWINS US COMPREHENSIVE Routine 11/14/2024 11:59 AM HOG HANDLER 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 documented in this encounter Results * MFM Twins US Comprehensive (11/14/2024 11:59 AM HOG HANDLER) Anatomical Region Laterality Modality Ultrasound 11/14/2024 10:2 4 AM HOG HANDLER Impressions 11/14/2024 4:40 PM HOG HANDLER IMPRESSION ----- Monochorionic diamniotic twin gestation at [...] anemia polycythemia syndrome. Narrative 11/14/2024 4:40 PM HOG HANDLER Comprehensive ----- Pat. Name: DEANDRE CHÁVEZ Study Date: 11/14/2024 10:24am Pat. NO: [id number] Referring MD: PAMELA CUELLAR Site: Air Director: Emerita Corona RDMS : 1995 Age: [...] 0 lb 11 oz EFW by Hadlock (BIN-KT-OO-FL) EFW discordance 30.6 % Head / Face / Neck Biometry: Kennel Supervisor 6.9 mm CM 2.6 mm Nasal [...] 0 lb 8 oz EFW by Hadlock (SJC-WO-KC-FL) EFW discordance 30.6 % Head / Face / Neck Biometry: Kennel Supervisor 6.8 mm CM 4.4 mm Extremities [...] view. RVOT view. LVOT view. 3-vessel view. 0-mfibdc-fpnmwkk view. Situs. Aortic arch view. Bicaval view. [...] Thorax 4-chamber view. RVOT view. LVOT view. 6-ufdicp-qwhmqao view. Aortic arch view. sex: female. Fetus [...] recommendation. She was again offered referral to [facility] for a second opinion/discussion about options in [...] the patient (reviewing medical records/tests), in direct yqdb-am-elze contact with the patient counseling and discussing the plan of care, documenting the visit in the electronic medical record, and communicating with other health housekeeper child care and/or care coordination. Please see note for details. Procedure Note Flower Amato MD - 11/14/2024 Comprehensive ----- Pat. Name: DEANDRE CHÁVEZ Study Date: 11/14/2024 10:24am Pat. NO: [id number] Referring MD: PAMELA CUELLAR Site: Air Director: Emerita Corona RDMS : 1995 Age: [...] EFW (lb,oz) 0 lb 11oz EFW by Hadlock(GYG-HY-NU-FL) EFW discordance 30.6% Head / Face / Neck Biometry: Kennel Supervisor 6.9mm CM 2.6mm Nasal bone 7.8mm Fetus 2: BIOMETRY ----- BPD 42.9mm 19w 0dHadlock OFD 55.1mm 18w 2dNicolaides HC 156.8mm 18w 4dHadlock Cerebellum tr 18.1mm 18w 0dNicolaides Nuchal fold 3.0mm AC 128.0mm 18w 3d 15%Hadlock Femur 24.5mm 17w 3dHadlock Humerus 23.5mm 17w 2dJeanty Weight Calculation: EFW 219g 2%Hadlock EFW (lb,oz) 0 lb 8oz EFW by Hadlock(OLO-DN-VW-FL) EFW discordance 30.6% Head / Face / Neck Biometry: Kennel Supervisor 6.8mm CM 4.4mm Extremities / Bony [...] 4-chamber view. RVOT view. LVOT view.3-vessel view. 7-oxaigk-bkezzpv view. Situs. Aortic arch view. Bicavalview. Ductal [...] / Thorax 4-chamber view. RVOT view. LVOT view.3-kpgssg-evgihmy view. Aortic arch view. sex: female. Fetus [...] the recommendation. She was again offered referralto [facility] for a second opinion/discussion about options in [...] see the patient(reviewing medical records/tests), in direct yhts-an-dxlo contact with the patient counseling and discussingthe plan of care, documenting the visit in the electronic medical record,and communicating with other health housekeeper child care and/or care coordination. Please see note [...] anemia polycythemia syndrome. 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 Monochorionic diamniotic twin , antepartum Twin , antepartum Monochorionic diamniotic twin , antepartum Twin , antepartum Monochorionic diamniotic twin , antepartum Twin , antepartum Monochorionic diamniotic twin , antepartum Twin , antepartum Monochorionic diamniotic twin , antepartum Twin , antepartum Monochorionic diamniotic twin , antepartum Twin , antepartum Monochorionic diamniotic twin , antepartum Twin , antepartum Monochorionic diamniotic twin , antepartum Twin , antepartum Monochorionic diamniotic twin , antepartum Twin , antepartum Monochorionic diamniotic twin , antepartum Twin , antepartum documented in this encounter Care Teams Clin Tech Relationship Specialty Start Date End Date No Ref-Primary, Physician PCP - General 12/04/21 documented as of this encounter
--- OUTSIDE RECORDS SUMMARY | 2024-12-07 20:22 | XMS_ITS | Continuity of Care Document ---
Author Organization [place] [facility] Address [address] [address] [place] [address] Assessment Encounter Date Assessment Date Assessment LastModified [...] Organization Details Recorded Time Low back pain 481385228 Active 2023 Moise Mensah DC [address] [facility], [place], [address], [facility] 4 18:46:52 Thoracic segmental dysfunction 854263092 Active 2023 Moise Mensah DC [address] [facility], [place], [address], [facility] 4 18:46:52 Lumbar segmental dysfunction 994461286 Active 2023 Moise Mensah DC [address] [facility], [place], [address], [facility] 4 18:46:52 Somatic dysfunction of sacral spine 593473482 Active 2023 Moise Mensah DC [address] [facility], [place], [address], [facility] 4 18:46:52 Neck pain 50677971 Active 2023 Moise Mensah DC [address] [facility], [facility] [place], [address], [facility] 4 18:46:54 Cervical segmental dysfunction 655171854 Active 2023 Moise Mensah DC [address] [facility], [facility] [place], [address], [facility] 4 18:46:54 Problem Notes None recorded. Procedures Surgical History Date Name Laterality Status Provider Name and Address Organization Details Recorded Time 5 37494: Spinal manipulation , 3 to 4 regions completed Gerry Le DC [address] [facility], [place], [address], [facility] 12/04/2024 11:22:55 5 [address]: Spinal manipulation , 3 to 4 regions completed Gerry Le DC [address] [facility], [place], [address], [facility] 11/07/2024 12:03:29 4 [address]71: Spinal manipulation , 3 to 4 regions completed Moise Mensah DC [address] [place] [address], [place], [address], [facility] 10/30/2024 18:49:30 Imaging Results None recorded. Procedure [...] SNOMED-CT Code Diagnosis ICD10 Code Diagnosis Note [id number] Moise Mensah DC [facility] [address] [place] [address] [facility] [place] [address] 10/30/2024 16:03:14 10/30/2024 19:26:07 Lumbar segmental dysfunction 500113994 M99.03 Low back pain 335551072 M54.50 Somatic dy sfunction of sacral spine 608117743 M99.04 Thoracic s egmental dysfunction 745164976 M99.02 Cervical s egmental dysfunction 060595260 M99.01 Neck pain 12387008 M54.2 Health Concerns Section Related Observation LastModified [...] carrying; twisting; bending/squatting Alleviating Factors:lying down; 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 Neck and upper back pain and tightness with stress and some lower back pelvis pain. Moise Mensah DC [address] [place] [address], [place], [address], [place] [facility] 10/30/2024 18:50:02 OBGyn Episode No OBEpisode recorded.
--- OUTSIDE RECORDS SUMMARY | 2024-12-07 20:22 | XMS_ITS | Encounter Summary ---
Author Organization [employer] Address [address] [place] [address] Care Team Providers Care Hvac Engineering Technician Name Role Phone No Ref-Primary, Physician Primary Care Provider Reason for Visit * Reason Comments Ultrasound RL2/UAR/MCA: TTTS ch luigi; mono/di twins Encounter Details Date Type Department Care Team (Latest Contact Info) Description 11/08/2024 10:00 AM TOBACCO WAREHOUSE MANAGER Office Visit [facility] [place] [address] [facility] [address] [place] [address] Flor Dickson MD [address] [facility] [address] [place] [address] Monochorionic diamniotic twin gestation in [...] on file Legal Sex Female 11:44 PM TOBACCO WAREHOUSE MANAGER Gender Identity Not on file Sexual [...] Center. Flor Dickson M.D. Maternal -Medicine Specialist CCO WAREHOUSE MANAGER documented in this encounter Nursing Notes * Joceline Bejarano RN - 11/08/2024 10:00 AM CST Heather seen in clinic today for TTTS check at 18w4d gestation due to mono/di twin gestation (see report/notes). Pt denies bldg/lof/change in discharge/contractions. Dr. Dickson reviewed US. Plan to return on 11/14 for L2. Pt discharged stable and ambulatory. Joceline Bejarano RN CCO WAREHOUSE MANAGER documented in this encounter Plan of Treatment Upcoming Encounters Date Type Department Care Team (Late st Contact Info) Description 12/10/2024 1:30 PM TOBACCO WAREHOUSE MANAGER Appointment [facility] Maternal Medicine [address] [phone] Jesus Harmon MD [address] [place], [place] [address] 12/10/2024 2:00 PM TOBACCO WAREHOUSE MANAGER Office Visit [facility] [address] [place] [address] Jesus Harmon MD [address] [place], [place] [address] 12/10/2024 2:15 PM TOBACCO WAREHOUSE MANAGER Office Visit [facility] Maternal Medicine [address] [place] [address] Jesus Harmon MD [address] [place] [address] 12/12/2024 8:45 AM TOBACCO WAREHOUSE MANAGER Appointment [facility] Maternal Medicine [facility] [address] [place] [address] Diane Lopez MD [address] [place] [address] 12/12/2024 9:15 AM TOBACCO WAREHOUSE MANAGER Office Visit [facility] Medicine [facility] [address] [facility] [address] [place] [phone] Diane Lopez MD [address] [facility] [address] [address] 12/14/2024 1:30 PM TOBACCO WAREHOUSE MANAGER Ancillary Procedure [facility] M[facility] Medicine [address] [phone] Jesus Harmon MD [address] [place] [address] 12/14/2024 2:00 PM TOBACCO WAREHOUSE MANAGER Office Visit [facility] Maternal Medicine [address] [address] Jesus Harmon MD [address] [place] [address] 12/17/2024 12:45 PM TOBACCO WAREHOUSE MANAGER Appointment [facility] Maternal Medicine [facility] [address] [place] [address] Jesus Harmon MD [address] [place] [address] 12/17/2024 1:15 PM TOBACCO WAREHOUSE MANAGER Office Visit [facility] [place] [address] [place] [address] Jesus Harmon MD [address] [place] [address] 12/17/2024 1:30 PM TOBACCO WAREHOUSE MANAGER Office Visit [facility] [place] [address] [place] [address] Jesus Harmon MD [address] [place] [address] 12/19/2024 9:30 AM TOBACCO WAREHOUSE MANAGER Appointment [facility] [address] [facility] [facility] [address] [place] [phone] Nicole Núñez MD [address] [facility] [facility] [place] [address] Flower Amato MD [address] [address] 12/19/2024 10:00 AM TOBACCO WAREHOUSE MANAGER Office Visit [facility] Maternal Medicine [facility] [address] [place] [phone] Nicole Núñez MD [address] [facility] [place] [address] Flower Amato MD [address] [address] 12/21/2024 11:45 AM TOBACCO WAREHOUSE MANAGER Appointment [facility] Maternal Medicine [facility] [address] [place] [phone] Jesus Harmon MD [address] [place] [address] Karin Esteban MD [address] [facility] [address] [address] 12/21/2024 12:15 PM TOBACCO WAREHOUSE MANAGER Office Visit [facility] Maternal Medicine [facility] [address] [facility] [address] [place] [phone] Jesus Harmon MD [address] [place] [address] Karin Esteban MD [address] [address] 12/24/2024 11:00 AM TOBACCO WAREHOUSE MANAGER Appointment [facility] Maternal Medicine [facility] [address] [place] [phone] Jesus Harmon MD [address] [place] [address] 12/24/2024 11:30 AM TOBACCO WAREHOUSE MANAGER Office Visit [facility] [place] [address] [place] [address] Jesus Harmon MD [address] [place] [address] 12/24/2024 11:45 AM TOBACCO WAREHOUSE MANAGER Office Visit [facility] [place] [address] [facility] [place] [address] Jesus Harmon MD [address] [place] [address] 12/26/2024 10:15 AM TOBACCO WAREHOUSE MANAGER Appointment [facility] M[facility] Medicine [facility] [address] [facility] [address] [place] [phone] Jesus Harmon MD [address] [place] [address] 12/26/2024 10:45 AM TOBACCO WAREHOUSE MANAGER Office Visit [facility] Maternal Medicine [place] [address] [facility] [address] [place] [phone] Jesus Harmon MD [address] [place] [address] 12/28/2024 10:15 AM TOBACCO WAREHOUSE MANAGER Appointment [facility] Maternal Medicine [place] [address] [facility] [address] [place] [phone] Diane Lopez MD [address] [place] [address] 12/28/2024 10:45 AM TOBACCO WAREHOUSE MANAGER Office Visit [facility] Maternal Medicine [place] [address] [facility] [address] [place] [phone] Diane Lopez MD [address] [place] [address] 01/11/2025 10:15 AM CDT Appointment [facility] Maternal Medicine [place] [address] [facility] [address] [place] [phone] Diane Lopez MD [address] [place] [address] 01/11/2025 10:45 AM CDT Office Visit [facility] Maternal Medicine [place] [address] [facility] [address] [place] [phone] Diane Lopez MD [address] [place] [address] documented as of this encounter Visit Diagnoses Diagnosis 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
--- OUTSIDE RECORDS SUMMARY | 2024-12-07 20:22 | XMS_ITS | Encounter Summary ---
Author Organization [facility] Address [address] [place] [address] Care Team Providers Care E Commerce Merchant Name Role Phone No Ref-Primary, Physician Primary Care Provider Flower Amato MD Unavailable [phone] Reason for Referral * Diagnostic Imaging Ultrasound (Routine) - Pending Review Specialty Diagnoses / Procedures Referred By Noa lilly Referred To Contact Radiology. 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 Intrauterine growth restriction affecting antepartum care of mother in first trimester, fetus 2 Procedures MFM Twins US Comprehensive F/U Nicole Núñez MD [address] [place] [id number] Phone: tel: fax: Referral ID Status Reason Start Date Expiration Date V isits Requested Visits Authorized [id number] Pending Review 11/22/2024 11/22/2025 1 1 K BREAKER * Diagnostic Imaging Ultrasound (Routine) - Pending Review Specialty Diagnoses / Procedures Referred By Contac t Referred To Contact Radiology. 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 Intrauterine growth restriction affecting antepartum care of mother in first trimester, fetus 2 Procedures MFM Twins US Comprehensive F/U Nicole Núñez MD [address] [place] [address] Phone: tel: fax: Referral ID Status Reason Start Date Expiration Date V isits Requested Visits Authorized [id number] Pending Review 11/22/2024 11/22/2025 1 1 K BREAKER Reason for Visit * Reason Comments Ultrasound RL2/UAR/MCA: mono/di twins, TTTS check/ sFGR fetus 2 Encounter Details Date Type Department Care Team (Latest Contact Info) Description 11/22/2024 10:00 AM BLOCK BREAKER Office Visit [facility] [place] [address] [place] [address] Nicole Núñez MD [address] [place] [address] Monochorionic diamniotic twin gestation in second [...] on file Legal Sex Female 11:44 PM BLOCK BREAKER Gender Identity Not on file Sexual Orientation [...] the M[facility] Center. Nicole Núñez MD Extension Work Instructor, COMPUTER METHODS ANALYST Maternal- Medicine K BREAKER documented in this encounter Nursing Notes * Joceline Bejarano RN - 11/22/2024 10:00 AM CST Deandre seen in clinic today for RL2/UAR/MCA (TTTS check) at 20w4d gestation for mono/di twins with sFGR (see report/notes). VSS. Pt reports + FM. Pt denies bldg/lof/change in discharge/contractions/headache/vision changes. Dr. Núñez reviewed ultrasound met with pt and discussed POC. Plan to follow up on 11/30 with echoes and MFM ultrasound, weekly TTTS check, growth q 3 weeks. Pt discharged stable and ambulatory. Joceilne Bejarano RN K BREAKER K BREAKER documented in this encounter Plan of Treatment Upcoming Encounters Date Type Department Care Team (Late st Contact Info) Description 12/10/2024 1:30 PM BLOCK BREAKER Appointment [facility] [address] [phone] Jesus Harmon MD [address] [place] [address] 12/10/2024 2:00 PM BLOCK BREAKER Office Visit [facility] [address] [address] Jesus Harmon MD [address] [place] [address] 12/10/2024 2:15 PM BLOCK BREAKER Office Visit [facility] [address] [address] Jesus Harmon MD [address] [place] [address] 12/12/2024 8:45 AM BLOCK BREAKER Appointment [facility] [address] [place] [phone] Diane Lopez MD [address] [place] [address] 12/12/2024 9:15 AM BLOCK BREAKER Office Visit [facility] [address] [place] [phone] Diane Lopez MD [address] [place] [address] 12/14/2024 1:30 PM BLOCK BREAKER Ancillary Procedure [facility] [address] [phone] Jesus Harmon MD [address] [place] [address] 12/14/2024 2:00 PM BLOCK BREAKER Office Visit [facility] [address] [phone] Jesus Harmon MD [address] [place] [address] 12/17/2024 12:45 PM BLOCK BREAKER Appointment [facility] [address] [place] [address] Jesus Harmon MD [address] [place] [address] 12/17/2024 1:15 PM BLOCK BREAKER Office Visit [facility] [place] [address] [place] [address] Jesus Harmon MD [address] [place] [address] 12/17/2024 1:30 PM BLOCK BREAKER Office Visit [facility] [address] [place] [address] Jesus Harmon MD [address] [place] [address] 12/19/2024 9:30 AM BLOCK BREAKER Appointment [facility] [place] [address] [place] [address] Nicole Núñez MD [address] [place] [address] [place], [place] [phone] Flower Amato MD [address] [address] 12/19/2024 10:00 AM BLOCK BREAKER Office Visit [facility] [place] [address] [place] [phone] Nicole Núñez MD [address] [facility] [place] [address] Flower Amato MD [address] [address] 12/21/2024 11:45 AM BLOCK BREAKER Appointment [facility] [address] [place] [address] Jesus Harmon MD [address] [place] [address] Karin Esteban MD [address] [address] 12/21/2024 12:15 PM BLOCK BREAKER Office Visit [facility] [place] [address] [place] [address] Jesus Harmon MD [address] [place] [address] Karin Esteban MD [address] [address] 12/24/2024 11:00 AM BLOCK BREAKER Appointment [facility] [address] [facility] [place] [phone] Jesus Harmon MD [address] [place] [address] 12/24/2024 11:30 AM BLOCK BREAKER Office Visit [facility] [place] [address] [place] [address] Jesus Harmon MD [address] [place] [address] 12/24/2024 11:45 AM BLOCK BREAKER Office Visit [facility] [place] [address] [place] [address] Jesus Harmon MD [address] [place] [address] 12/26/2024 10:15 AM BLOCK BREAKER Appointment [facility] [address] [place] [address] Jesus Harmon MD [address] [place] [address] 12/26/2024 10:45 AM BLOCK BREAKER Office Visit [facility] [address] [place] [address] Jesus Harmon MD [address] [place] [address] 12/28/2024 10:15 AM BLOCK BREAKER Appointment [facility] [place] [address] [place] [phone] Diane Lopez MD [address] [place] [address] 12/28/2024 10:45 AM BLOCK BREAKER Office Visit [facility] [place] [address] [place] [phone] Diane Lopez MD [address] [place], [place] [address] 01/11/2025 10:15 AM CDT Appointment [facility] [place] [address] [place] [phone] Diane Lopez MD [address] [place] [address] 01/11/2025 10:45 AM CDT Office Visit [facility] [place] [address] [place] [phone] Diane Lopez MD [address] [place], [place] [phone] Scheduled Orders Name Type Priority Associated Diagnoses Orde r Schedule MFM Twins US Comprehensive F/U Imaging Routine 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 Intrauterine growth restriction affecting antepartum care of mother in first trimester, fetus 2 Expected: 12/19/2024 (Approximate), Expires: 09/22/2025 documented as of this encounter Results * MFM Twins US Comprehensive F/U (12/05/2024 12:28 PM BLOCK BREAKER) Anatomical Region Laterality Modality Ultrasound 12/05/2024 11:3 2 AM BLOCK BREAKER Impressions 12/05/2024 1:37 PM BLOCK BREAKER IMPRESSION ----- Monochorionic diamniotic twin gestation at 22w 3d gestational age. Fetus 1 1. A normal bladder was visualized. 2. The amniotic fluid volume appeared normal. 3. The umbilical artery Doppler studies were normal: 4. The middle cerebral artery Doppler studies were within normal limits. 5. The ductus venosus studies were within normal limits. Fetus 2 1. A normal bladder was visualized. 2. The amniotic fluid volume appeared normal. 3. The umbilical artery Doppler studies were abnormal: Reversed End Diastolic Flow. 4. The middle cerebral artery Doppler studies were within normal limits. 5. The ductus venosus studies were within normal limits. The previously visualized reversal of the a-wave is not present today. There is forward flow in the a-wave today. Narrative 12/05/2024 1:37 PM BLOCK BREAKER [facility] Surveillance US ----- Pat. Name: DEANDRE CHÁVEZ Study Date: 12/05/2024 11:32am Pat. NO: [id number] Referring MD: PAMELA CUELLAR Site: Inspector And Tester: Piper LarkinmikeSUSAN hung : 1995 Age: 29 ----- INDICATION ----- Monochorionic-Diamniotic Twin Gestation Selective Growth Restriction (FGR) fetus 2 Circumvallate placenta METHOD ----- Transabdominal ultrasound examination. View: Sufficient ----- Twin . Number of fetuses: 2. Monochorionic-diamniotic Membrane Description: thin dividing membrane visualized between fetuses 1 and 2 DATING ----- Date Details Gest. age TOMMIE LMP 07/01/2024 22 w + 3 d 04/07/2025 Previous U/S 08/27/2024 GA, GA 7 w + 6 d 22 w + 1 d 04/09/2025 Assigned dating based on the LMP, selected on 11/22/2024 22 w + 3 d 04/07/2025 Fetus 1: GENERAL EVALUATION ----- Cardiac activity present. FHR 146 bpm. movements: visualized. Presentation: cephalic, maternal left. Presenting. Placenta: Placental site: anterior, no previa, thin dividing membrane Umbilical cord: Cord vessels: 3 vessel cord. Insertion site: normal insertion Amniotic fluid: Amount of AF: Mild Polyhydramnios . MVP 8.9 cm Fetus 2: GENERAL EVALUATION ----- Cardiac activity present. FHR 157 bpm. movements: visualized. Presentation: breech, maternal right. Placenta: Placental site: anterior, no previa, thin dividing membrane Umbilical cord: Cord vessels: 3 vessel cord. Insertion site: normal insertion Amniotic fluid: Amount of AF: normal. MVP 5.0 cm Fetus 1: ANATOMY ----- The following structures appear normal: Abdomen Bladder. sex: female. Fetus 2: ANATOMY ----- The following structures appear normal: Abdomen Bladder. sex: female. Fetus 1: DOPPLER ----- Umbilical Artery: normal. Sampling site: midcord PI 1.19 53% Ramírez HR 146 bpm Mid Cerebral Artery: normal PS 35.01 cm/s PS 1.23 MoM Ductus Venosus: normal A-wave normal A wave Fetus 2: DOPPLER ----- Umbilical Artery: abnormal, Reversed End Diastolic Flow. Sampling site: midcord Mid Cerebral Artery: normal PS 38.70 cm/s PS 1.36 MoM Ductus Venosus: normal A-wave normal A wave Fetus 1: TTTS ASSESSMENT ----- Cardiac activity: present Placental location: anterior, no previa, thin dividing membrane Placental cord insertion: normal insertion bladder: normal hydrops: No MVP: 8.9 cm MCA PSV: 35.01 cm/s MCA MoM: 1.23 UA PI: 1.19, 53% Ductus Venosus: normal Fetus 2: TTTS ASSESSMENT ----- Cardiac activity: present Placental location: anterior, no previa, thin dividing membrane Placental cord insertion: normal insertion bladder: normal hydrops: Yes MVP: 5 cm MCA PSV: 38.7 cm/s MCA MoM: 1.36 UA PI: reversed Ductus Venosus: normal RECOMMENDATION ----- I had a further discussion with the patient and her in conjunction with Dr. Miramontes from the NICU to discuss outcomes at joanne-viable gestational ages. We again discussed the increased risk of demise with reverse end diastolic flow in twin B. We discussed the risk of significant morbidity and mortality for delivery at this time. We discussed options for outpatient management. The patient desires outpatient management with close observation for deterioration in the surveillance of twin B. Management Plan 1. For the next two weeks the patient will have 3 x weekly outpatient assessment of the fetuses with UA, MCA and DV dopplers as well as assessment for TTTS. 2. If the assessments remain stable, no interventions at this time. If there is deterioration of the assessment, the patient may consider inpatient management with possible delivery. 3. Repeat growth US at 24 weeks and reassess plan of care at that time. Today's ultrasound does not support a diagnosis of twin twin transfusion syndrome or twin anemia polycythemia syndrome. I spent a total of 45 minutes (excluding the ultrasound interpretation) on the date of this encounter including preparing to see the patient (reviewing medical records/tests), in direct ofkn-ow-bzqg contact with the patient during the visit counseling and discussing the plan of care and documenting the visit in the electronic medical record. Procedure Note Jesus Harmon MD - 12/05/2024 Surveillance US ----- Pat. Name: DEANDRE CHÁVEZ Study Date: 12/05/2024 11:32am Pat. NO: [id number] Referring MD: PAMELA CUELLAR Site: Inspector And Tester: Piper TraemikeSUSAN hung : 1995 Age: 29 ----- INDICATION ----- Monochorionic-Diamniotic Twin Gestation Selective Growth Restriction (FGR) fetus 2 Circumvallate placenta METHOD ----- Transabdominal ultrasound examination. View: Sufficient ----- Twin . Number of fetuses: 2. Monochorionic-diamniotic Membrane Description: thin dividing membrane visualized between fetuses 1and 2 DATING ----- DateDetailsGest. age TOMMIE LMP w + 3 d 04/07/2025 Previous U/S 08/27/2024 GA, GA7 w + 6 d22 w + 1 d 04/09/2025 Assigned dating based on the LMP, selected on w + 3 d 04/07/2025 Fetus 1: GENERAL EVALUATION ----- Cardiac activity present. FHR 146 bpm. movements: visualized.Presentation: cephalic, maternal left. Presenting. Placenta: Placental site: anterior, no previa, thin dividing membrane Umbilical cord: Cord vessels: 3 vessel cord. Insertion site: normalinsertion Amniotic fluid: Amount of AF: Mild Polyhydramnios . MVP 8.9 cm Fetus 2: GENERAL EVALUATION ----- Cardiac activity present. FHR 157 bpm. movements: visualized.Presentation: breech, maternal right. Placenta: Placental site: anterior, no previa, thin dividing membrane Umbilical cord: Cord vessels: 3 vessel cord. Insertion site: normalinsertion Amniotic fluid: Amount of AF: normal. MVP 5.0 cm Fetus 1: ANATOMY ----- The following structures appear normal: Abdomen Bladder. sex: female. Fetus 2: ANATOMY ----- The following structures appear normal: Abdomen Bladder. sex: female. Fetus 1: DOPPLER ----- Umbilical Artery: normal. Sampling site: midcord PI 1.1953%Ramírez HR 146bpm Mid Cerebral Artery: normal PS 35.01cm/s PS 1.23MoM Ductus Venosus: normal A-wave normalA wave Fetus 2: DOPPLER ----- Umbilical Artery: abnormal, Reversed End Diastolic Flow. Sampling site:midcord Mid Cerebral Artery: normal PS 38.70cm/s PS 1.36MoM Ductus Venosus: normal A-wavenormal A wave Fetus 1: TTTS ASSESSMENT ----- Cardiac activity: present Placental location: anterior, no previa, thin dividing membrane Placental cord insertion: normal insertion bladder: normal hydrops: No MVP: 8.9 cm MCA PSV: 35.01 cm/s MCA MoM: 1.23 UA PI: 1.19, 53% Ductus Venosus: normal Fetus 2: TTTS ASSESSMENT ----- Cardiac activity: present Placental location: anterior, no previa, thin dividing membrane Placental cord insertion: normal insertion bladder: normal hydrops: Yes MVP: 5 cm MCA PSV: 38.7 cm/s MCA MoM: 1.36 UA PI: reversed Ductus Venosus: normal RECOMMENDATION ----- I had a further discussion with the patient and her in conjunctionwith Dr. Miramontes from the NICU to discuss outcomes atperi-viable gestational ages. We again discussed the increased risk of demise with reverse enddiastolic flow in twin B. We discussed the risk of significant morbidityand mortality for delivery at this time. We discussed options for outpatient management. The patientdesires outpatient management with close observation for deterioration inthe surveillance of twin B. Management Plan 1. For the next two weeks the patient will have 3 x weekly outpatientassessment of the fetuses with UA, MCA and DV dopplers as well asassessment for TTTS. 2. If the assessments remain stable, no interventions at this time. Ifthere is deterioration of the assessment, the patient may considerinpatient management with possible delivery. 3. Repeat growth US at 24 weeks and reassess plan of care at that time. Today's ultrasound does not support a diagnosis of twin twin transfusionsyndrome or twin anemia polycythemia syndrome. I spent a total of 45 minutes (excluding the ultrasound interpretation) onthe date of this encounter including preparing to see the patient(reviewing medical records/tests), in direct ghjw-ew-iskq contact with the patient during the visitcounseling and discussing the plan of care and documenting the visit inthe electronic medical record. IMPRESSION ----- Monochorionic diamniotic twin gestation at 22w 3d gestational age. Fetus 1 1. A normal bladder was visualized. 2. The amniotic fluid volume appeared normal. 3. The umbilical artery Doppler studies were normal: 4. The middle cerebral artery Doppler studies were within normal limits. 5. The ductus venosus studies were within normal limits. Fetus 2 1. A normal bladder was visualized. 2. The amniotic fluid volume appeared normal. 3. The umbilical artery Doppler studies were abnormal: Reversed EndDiastolic Flow. 4. The middle cerebral artery Doppler studies were within normal limits. 5. The ductus venosus studies were within normal limits. The previouslyvisualized reversal of the a-wave is not present today. There is forwardflow in the a-wave today. Nicole Núñez MD [facility] ORDERABLES Edited Result - Final documented in this encounter Visit Diagnoses Diagnosis 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- Primary Intrauterine growth restriction affecting antepartum care of mother in first trimester, fetus 2 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 Intrauterine growth restriction affecting antepartum care of mother in first trimester, fetus 2 Monochorionic diamniotic twin , antepartum Twin , [...] antepartum documented in this encounter Care Teams E Commerce Merchant Relationship Specialty Start Date End Date No Ref-Primary, Physician PCP - General 12/04/21 Flower Amato MD [address] [place] [id number] Assigned OBGYN Provider 1/23/25 documented as of this encounter
--- OUTSIDE RECORDS SUMMARY | 2024-12-07 20:22 | XMS_ITS | Encounter Summary ---
Author Organization [place] Address [address] [place] [address] Care Team Providers Care Liner Checker Name Role Phone No Ref-Primary, Physician Primary Care Provider Reason for Referral * Diagnostic Imaging Ultrasound (Routine) - Pending Review Specialty Diagnoses / Procedures Referred By Noa lilly Referred To Contact Radiology. Diagnoses Monochorionic diamniotic twin gestation Procedures MFM Twins US Comprehensive F/U Diane Lopez MD [address] [facility] [address] [address] Phone: tel: fax: Referral ID Status Reason Start Date Expiration Date V isits Requested Visits Authorized [id number] Pending Review 10/19/2024 10/19/2025 1 1 REPAIRER Reason for Visit * Diagnostic Imaging Ultrasound (Routine) - Pending Review Specialty Diagnoses / Procedures Referred By Noa lilly Referred To Contact Radiology. Diagnoses Monochorionic diamniotic twin gestation Procedures MFM Twins US Alivia F/U Diane Lopez MD [address] [place] [address] Phone: tel: fax: Referral ID Status Reason Start Date Expiration Date V isits Requested Visits Authorized [id number] Pending Review 10/19/2024 10/19/2025 1 1 Encounter Details Date Type Department Care Team (Latest Contact Info) Description 11/08/2024 9:24 AM CELL REPAIRER - 11/08/2024 11:59 PM CELL REPAIRER Hospital Encounter [facility] [place] [address] [facility] [address] [place] [address] Flor Dickson MD [address] [place], [place] [id number] 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 [...] on file Legal Sex Female 11:44 PM CELL REPAIRER Gender Identity Not on file Sexual [...] st Contact Info) Description 12/10/2024 1:30 PM CELL REPAIRER Appointment [facility] [address] [place] [address] Jesus Harmon MD [address] [place] [address] 12/10/2024 2:00 PM CELL REPAIRER Office Visit [facility] [address] [place] [address] Jesus Harmon MD [address] [place] [address] 12/10/2024 2:15 PM CELL REPAIRER Office Visit [facility] [address] [place] [address] Jesus Harmon MD [address] [place] [address] 12/12/2024 8:45 AM CELL REPAIRER Appointment [facility] [address] [place] [phone] Diane Lopez MD [address] [address] 12/12/2024 9:15 AM CELL REPAIRER Office Visit [facility] [address] [place] [phone] Diane Lopez MD [address] [address] 12/14/2024 1:30 PM CELL REPAIRER Ancillary Procedure [facility] [address] [place] [phone] Jesus Harmon MD [address] [place] [address] 12/14/2024 2:00 PM CELL REPAIRER Office Visit [facility] [address] [place] [address] Jesus Harmon MD [address] [place] [address] 12/17/2024 12:45 PM CELL REPAIRER Appointment [facility] [address] [place] [phone] Jesus Harmon MD [address] [place] [address] 12/17/2024 1:15 PM CELL REPAIRER Office Visit [facility] [place] [address] [place] [address] Jesus Harmon MD [address] [place] [address] 12/17/2024 1:30 PM CELL REPAIRER Office Visit [facility] [place] [address] [place] [address] Jesus Harmon MD [address] [place] [address] 12/19/2024 9:30 AM CELL REPAIRER Appointment [facility] [address] [facility] [address] [place] [phone] Nicole Núñez MD [address] [place] [address] Flower Amato MD [address] [facility] [address] [address] 12/19/2024 10:00 AM CELL REPAIRER Office Visit [facility] [place] [address] [place] [phone] Nicole Núñez MD [address] [place] [address] Flower Amato MD [address] [address] 12/21/2024 11:45 AM CELL REPAIRER Appointment [facility] [place] [address] [place] [phone] Jesus Harmon MD [address] [place] [address] Karin Esteban MD [address] [address] [address] 12/21/2024 12:15 PM CELL REPAIRER Office Visit [facility] [place] [address] [place] [phone] Jesus Harmon MD [address] [place] [address] Karin Esteban MD [address] [address] [address] 12/24/2024 11:00 AM CELL REPAIRER Appointment [facility] [address] [phone] Jesus Harmon MD [address] [place] [address] 12/24/2024 11:30 AM CELL REPAIRER Office Visit [facility] [place] [address] [place] [address] Jesus Harmon MD [address] [place] [address] 12/24/2024 11:45 AM CELL REPAIRER Office Visit [facility] [address] [place] [address] Jesus Harmon MD [address] [place] [address] 12/26/2024 10:15 AM CELL REPAIRER Appointment [facility] [place] [address] [place] [phone] Jesus Harmon MD [address] [place] [address] 12/26/2024 10:45 AM CELL REPAIRER Office Visit [facility] [place] [address] [place] [phone] Jesus Harmon MD [address] [place] [address] 12/28/2024 10:15 AM CELL REPAIRER Appointment [facility] [place] [address] [place] [phone] Diane Lopez MD [address] [address] 12/28/2024 10:45 AM CELL REPAIRER Office Visit [facility] [place] [address] [place] [phone] Diane Lopez MD [address] [place], [place] [address] 01/11/2025 10:15 AM CDT Appointment [facility] [place] [address] [place] [phone] Diane Lopez MD [address] [place], [place] [address] 01/11/2025 10:45 AM CDT Office Visit [facility] [place] [address] [place] [phone] Diane Lopez MD [address] [place], [place] [address] documented as of this encounter Procedures Procedure Name Priority Date/Time Associated Diagnosis Comments MFM TWINS US COMPREHENSIVE F/U Routine 11/08/2024 10:15 AM CELL REPAIRER 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 documented in this encounter Results * MFM Twins US Comprehensive F/U (11/08/2024 10:15 AM CELL REPAIRER) Anatomical Region Laterality Modality Ultrasound 11/08/2024 9:37 AM CELL REPAIRER Impressions 11/08/2024 11:28 AM CELL REPAIRER IMPRESSION ----- Monochorionic diamniotic twin gestation at [...] anemia polycythemia syndrome. Narrative 11/08/2024 11:28 AM [facility] Surveillance US ----- Pat. Name: HEATHER CHÁVEZ Study Date: 11/08/2024 9:37am Pat. NO: [id number] Referring MD: PAMELA CUELLAR Site: Adapted Physical Education Aide: Chantell Jarquin RDMS : 1995 Age: 29 [...] CHÁVEZ Study Date: 11/08/2024 9:37am Pat. NO: [id number] Referring MD: PAMELA CUELLAR Site: [employer] [employer] Aide: Chantell Jarquin RDMS : 1995 Age: 29 [...] antepartum documented in this encounter Care Teams Liner Checker Relationship Specialty Start Date End Date No Ref-Primary, Physician PCP - General 12/04/21 documented as of this encounter
--- OUTSIDE RECORDS SUMMARY | 2024-12-07 20:22 | XMS_ITS | Encounter Summary ---
Author Organization [place] Address [address] [facility] [place] [address] Care Team Providers Care Senior Java Engineer Name Role Phone No Ref-Primary, Physician Primary Care Provider Reason for Referral * Diagnostic Imaging Ultrasound (Routine) - Pending Review Specialty Diagnoses / Procedures Referred By Contac t Referred To Contact Radiology. 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 Procedures MFM Twins US Comprehensive F/U Flower Amato MD [address] [place] [address] Phone: tel: fax: Referral ID Status Reason Start Date Expiration Date V isits Requested Visits Authorized [id number] Pending Review 11/14/2024 11/14/2025 1 1 LIBRARY DIRECTOR Reason for Visit * Reason Comments Ultrasound L2-mono/di twins Encounter Details Date Type Department Care Team (Latest Contact Info) Description 11/14/2024 11:30 AM CITY LIBRARY DIRECTOR Office Visit [facility] [place] [address] [facility] [address] [place] [address] Flower Amato MD [address] [place] [address] Monochorionic diamniotic twin gestation in [...] on file Legal Sex Female 11:44 PM CITY LIBRARY DIRECTOR Gender Identity Not on file Sexual Orientation Not on file documented as of this encounter Progress Notes * Flower Amato MD - 11/14/2024 11:30 AM CST The patient was seen for an ultrasound in the M[facility] Center at the [facility] today. For a detailed report of the ultrasound examination, please see the ultrasound report which can be found under the imaging tab. If you have questions regarding today's evaluation or if we can be of further service, please contact the Maternal- Medicine Center. Flower Amato MD Transitional Care Liaison, [facility] Maternal- Medicine [phone] (Pager) LIBRARY DIRECTOR documented in this encounter Nursing Notes * April Baker RN - 11/14/2024 11:30 AM CST Patient reports positive movement, denies contractions, leaking of fluid, or bleeding. SBAR given to [facility]AN[facility] MEDINA, see their note in Epic. LIBRARY DIRECTOR documented in this encounter Plan of Treatment Upcoming Encounters Date Type Department Care Team (Late st Contact Info) Description 12/10/2024 1:30 PM CITY LIBRARY DIRECTOR Appointment [facility] [address] [place] [address] Jesus Harmon MD [address] [place] [address] 12/10/2024 2:00 PM CITY LIBRARY DIRECTOR Office Visit [facility] [place] [address] [place] [address] Jesus Harmon MD [address] [place] [address] 12/10/2024 2:15 PM CITY LIBRARY DIRECTOR Office Visit [facility] [place] [address] [place] [address] Jesus Harmon MD [address] [place] [address] 12/12/2024 8:45 AM CITY LIBRARY DIRECTOR Appointment [facility] [address] [place] [phone] Diane Lopez MD [address] [address] 12/12/2024 9:15 AM CITY LIBRARY DIRECTOR Office Visit [facility] [address] [place] [address] Diane Lopez MD [address] [address] 12/14/2024 1:30 PM CITY LIBRARY DIRECTOR Ancillary Procedure [facility] [address] [place] [phone] Jesus Harmon MD [address] [place] [address] 12/14/2024 2:00 PM CITY LIBRARY DIRECTOR Office Visit [facility] [address] [place] [phone] Jesus Harmon MD [address] [place] [address] 12/17/2024 12:45 PM CITY LIBRARY DIRECTOR Appointment [facility] [place] [address] [place] [address] Jesus Harmon MD [address] [place] [address] 12/17/2024 1:15 PM CITY LIBRARY DIRECTOR Office Visit [facility] Medicine [facility] [address] [place] [address] Jesus Harmon MD [address] [place] [address] 12/17/2024 1:30 PM CITY LIBRARY DIRECTOR Office Visit [facility] [address] [place] [address] Jesus Harmon MD [address] [place] [address] 12/19/2024 9:30 AM CITY LIBRARY DIRECTOR Appointment [facility] Medicine [facility] [address] [facility] [address] [place] [phone] Nicole Núñez MD [address] [facility] [address] Flower Amato MD [address] [facility] [address] [place], [place] [address] 12/19/2024 10:00 AM CITY LIBRARY DIRECTOR Office Visit [facility] Medicine [facility] [address] [facility] [address] [place] [address] Nicole Núñez MD [address] [facility] [address] [place], [place] [address] Flower Amato MD [address] [facility] [address] [address] 12/21/2024 11:45 AM CITY LIBRARY DIRECTOR Appointment [facility]aternal Medicine [facility] [address] [facility] [address] [place] [phone] Jesus Harmon MD [address] [place] [address] Karin Esteban MD [address] [facility] [address] [address] 12/21/2024 12:15 PM CITY LIBRARY DIRECTOR Office Visit [facility] Medicine [facility] [address] [facility] [address] [place] [address] Jesus Harmon MD [address] [place] [address] Karin Esteban MD [address] [facility] [address] [address] 12/24/2024 11:00 AM CITY LIBRARY DIRECTOR Appointment [facility] [address] [address] [place] [address] Jesus Harmon MD [address] [place] [address] 12/24/2024 11:30 AM CITY LIBRARY DIRECTOR Office Visit [facility] Medicine [facility] [address] [place] [address] Jesus Harmon MD [address] [place] [address] 12/24/2024 11:45 AM CITY LIBRARY DIRECTOR Office Visit [facility] [place] [address] [place] [address] Jesus Harmon MD [address] [place] [address] 12/26/2024 10:15 AM CITY LIBRARY DIRECTOR Appointment [facility] [place] [address] [place] [phone] Jesus Harmon MD [address] [place] [address] 12/26/2024 10:45 AM CITY LIBRARY DIRECTOR Office Visit [facility] [place] [address] [place] [phone] Jesus Harmon MD [address] [place] [address] 12/28/2024 10:15 AM CITY LIBRARY DIRECTOR Appointment [facility] [place] [address] [place] [phone] Diane Lopez MD [address] [place] [address] 12/28/2024 10:45 AM CITY LIBRARY DIRECTOR Office Visit [facility] [place] [address] [place] [phone] Diane Lopez MD [address] [place] [address] 01/11/2025 10:15 AM CDT Appointment [facility] [place] [address] [place] [phone] Diane Lopez MD [address] [place], [place] [address] 01/11/2025 10:45 AM CDT Office Visit [facility] Medicine [facility] [address] [facility] [address] [place] [address] Diane Lopez MD [address] [place], [place] [phone] documented as of this encounter Results * MFM Twins US Comprehensive F/U (11/22/2024 11:09 AM CITY LIBRARY DIRECTOR) Anatomical Region Laterality Modality Ultrasound 11/22/2024 9:46 AM CITY LIBRARY DIRECTOR Impressions 11/23/2024 6:03 PM CITY LIBRARY DIRECTOR IMPRESSION ----- Monochorionic diamniotic twin gestation at [...] anemia polycythemia syndrome. Narrative 11/23/2024 6:03 PM CITY LIBRARY DIRECTOR Surveillance US ----- Pat. Name: DEANDRE CHÁVEZ Study Date: 11/22/2024 9:46am Pat. NO: [id number] Referring MD: PAMELA CUELLAR Site: Mess Attendant: José Miguel Hussein RDMS : 1995 Age: [...] outlined by Dr. Amato on 11/14/24, and Deadnre and her desire to proceed as previously [...] the patient (reviewing medical records/tests), in direct reim-ld-ptgg contact with the patient counseling and discussing the plan of care, documenting the visit in the electronic medical record, and communicating with other health pet care associate and/or care coordination. Procedure Note Nicole Núñez MD - 11/23/2024 [facility] ----- Pat. Name: DEANDRE CHÁVEZ Study Date: 11/22/2024 9:46am Pat. NO: [id number] Referring MD: PAMELA CUELLAR Site: Mess Attendant: José Miguel Hussein RDMS : 1995 Age: [...] outlined by Dr. Amato on 11/14/24, and Veronikaaand her desire to proceed as previously outlined. [...] see the patient(reviewing medical records/tests), in direct gorh-kb-gmle contact with the patient counseling and discussingthe plan of care, documenting the visit in the electronic medical record,and communicating with other health pet care associate and/or care coordination. IMPRESSION ----- Monochorionic diamniotic [...] syndrome. us Flower Amato MD [facility] ORDERABLES Edited Re sult - Final [...] antepartum documented in this encounter Care Teams Senior Java Engineer Relationship Specialty Start Date End Date No Ref-Primary, Physician PCP - General 12/04/21 documented as of this encounter
--- OUTSIDE RECORDS SUMMARY | 2024-12-07 20:22 | XMS_ITS | Encounter Summary ---
Author Organization [facility] Address [address] [place] [address] Care Team Providers Care Motion Designer Name Role Phone No Ref-Primary, Physician Primary [...] on file Legal Sex Female 11:44 PM LIFE SCIENCES DIRECTOR Gender Identity Not on file Sexual Orientation Not on file documented as of this encounter Plan of Treatment Upcoming Encounters Date Type Department Care Team (Late st Contact Info) Description 12/10/2024 1:30 PM LIFE SCIENCES DIRECTOR Appointment [facility] [place] [address] [place] [phone] Jesus Harmon MD [address] [place] [address] [phone] 12/10/2024 2:00 PM LIFE SCIENCES DIRECTOR Office Visit [facility] [place] [address] [place], [place] [address] Jesus Harmon MD [address] [place] [address] 12/10/2024 2:15 PM LIFE SCIENCES DIRECTOR Office Visit [facility] [address] [place] [address] Jesus Harmon MD [address] [place] [address] 12/12/2024 8:45 AM LIFE SCIENCES DIRECTOR Appointment [facility] [address] [place] [phone] Diane Lopez MD [address] [place] [address] 12/12/2024 9:15 AM LIFE SCIENCES DIRECTOR Office Visit [facility] [address] [place] [address] Diane Lopez MD [address] [place] [address] 12/14/2024 1:30 PM LIFE SCIENCES DIRECTOR Ancillary Procedure [facility] [address] [phone] Jesus Harmon MD [address] [place] [address] 12/14/2024 2:00 PM LIFE SCIENCES DIRECTOR Office Visit [facility] [address] [phone] Jesus aHrmon MD [address] [place] [address] 12/17/2024 12:45 PM LIFE SCIENCES DIRECTOR Appointment [facility] [place] [address] [place] [address] Jesus Harmon MD [address] [place] [address] 12/17/2024 1:15 PM LIFE SCIENCES DIRECTOR Office Visit [facility] [place] [address] [place] [address] Jesus Harmon MD [address] [place] [address] 12/17/2024 1:30 PM LIFE SCIENCES DIRECTOR Office Visit [facility] [address] [place] [address] Jesus Harmon MD [address] [place] [address] 12/19/2024 9:30 AM LIFE SCIENCES DIRECTOR Appointment [facility] [address] [place] [phone] Nicole Núñez MD [address] [place], [place] [address] Flower Amato MD [address] [facility] [address] [place], [place] [address] 12/19/2024 10:00 AM LIFE SCIENCES DIRECTOR Office Visit [facility] [address] [place] [phone] Nicole Núñez MD [address] [place], [place] [phone] Flower Amato MD [address] [place] [address] 12/21/2024 11:45 AM LIFE SCIENCES DIRECTOR Appointment [facility] [address] [facility] [address] [place] [address] Jesus Harmon MD [address] [place] [address] Karin Esteban MD [address] [place] [address] 12/21/2024 12:15 PM LIFE SCIENCES DIRECTOR Office Visit [facility] [address] [facility] [address] [place] [address] Jesus Harmon MD [address] [place] [address] Karin Esteban MD [address] [place] [address] 12/24/2024 11:00 AM LIFE SCIENCES DIRECTOR Appointment [facility] [place] [address] [place] [phone] Jesus Harmon MD [address] [place] [address] 12/24/2024 11:30 AM LIFE SCIENCES DIRECTOR Office Visit [facility] [place] [address] [place] [address] Jesus Harmon MD [address] [place] [address] 12/24/2024 11:45 AM LIFE SCIENCES DIRECTOR Office Visit [facility] [place] [address] [place] [address] Jesus Harmon MD [address] [place] [address] 12/26/2024 10:15 AM LIFE SCIENCES DIRECTOR Appointment [facility] [place] [address] [place] [phone] Jesus Harmon MD [address] [place] [address] 12/26/2024 10:45 AM LIFE SCIENCES DIRECTOR Office Visit [facility] [place] [address] [facility] [address] [place] [phone] Jesus Harmon MD [address] [place] [address] 12/28/2024 10:15 AM LIFE SCIENCES DIRECTOR Appointment [facility] [place] [address] [facility] [address] [place] [phone] Diane Lopez MD [address] [place] [address] 12/28/2024 10:45 AM LIFE SCIENCES DIRECTOR Office Visit [facility] [place] [address] [facility] [address] [place] [phone] Diane Lopez MD [address] [place] [address] 01/11/2025 10:15 AM CDT Appointment [facility] [place] [address] [place] [phone] Diane Lopez MD [address] [place] [address] 01/11/2025 10:45 AM CDT Office Visit [facility] [place] [address] [facility] [address] [place] [phone] Diane Lopez MD [address] [place] [address] documented as of this encounter Visit Diagnoses Not on filedocumented in this encounter Care Teams Motion Designer Relationship Specialty Start Date End Date No Ref-Primary, Physician PCP - General 12/04/21 documented as of this encounter
--- OUTSIDE RECORDS SUMMARY | 2024-12-07 20:22 | XMS_ITS | Continuity of Care Document ---
Author Organization [place] [facility] Address [address] [facility] [address] [place] [address] Assessment Encounter Date Assessment Date Assessment LastModified [...] Organization Details Recorded Time Low back pain 656281888 Active 2023 Moise Mensah DC [address] [facility], [place] [facility] [place], [address], [place] [facility] 4 18:46:52 Thoracic segmental dysfunction 079422914 Active 2023 Moise Mensah DC [address] [facility], [place], [address], [place] [facility] 4 18:46:52 Lumbar segmental dysfunction 112391741 Active 2023 Moise Mensah DC [address] [facility], [place], [address], [place] [facility] 4 18:46:52 Somatic dysfunction of sacral spine 723186211 Active 2023 Moise Mensah DC [address] [facility], [place], [address], [place] [facility] 4 18:46:52 Neck pain 04015400 Active 2023 Moise Mensah DC [address] [facility], [facility] [place], [address], [place] [facility] 4 18:46:54 Cervical segmental dysfunction 091055608 Active 2023 Moise Mensah DC [address] [facility], [place], [address], [facility] 4 18:46:54 Problem Notes None recorded. Procedures Surgical History Date Name Laterality Status Provider Name and Address Organization Details Recorded Time 5 42257: Spinal manipulation , 3 to 4 regions completed Gerry Le DC [address] [facility], [place], [address], [place] [facility] 12/04/2024 11:22:55 5 [address]63: Spinal manipulation , 3 to 4 regions completed Gerry Le DC [address] [facility], [place], [address], [facility] 11/07/2024 12:03:29 4 [address]: Spinal manipulation , 3 to 4 regions completed Moise Mensah DC [address] [place] [address], [place], [address], [facility] 10/30/2024 18:49:30 Imaging Results None recorded. [...] SNOMED-CT Code Diagnosis ICD10 Code Diagnosis Note [id number] [place] [facility] [address] [place] [address] 10/30/2024 16:03:14 10/30/2024 19:26:07 Lumbar segmental dysfunction [id number] M99.03 Low back pain 122474549 M54.50 Somatic dy sfunction of sacral spine 053401111 M99.04 Thoracic s egmental dysfunction 931607716 M99.02 Cervical s egmental dysfunction 000195543 M99.01 Neck pain 65193871 M54.2 [id number] [place] [facility] [address] [place] [address] 11/07/2024 10:39:00 11/07/2024 12:17:20 Lumbar segmental dysfunction 145271019 M99.03 Low back pain 345503311 M54.50 Somatic dy sfunction of sacral spine 885939398 M99.04 Thoracic s egmental dysfunction 570701746 M99.02 Health Concerns Section Related Observation LastModified by Organization Detai ls LastModified Time None Recorded Concern Status LastModified by Organization Details LastModified Time None Recorded Payers Encounter Date Sequence Insurance Name Policy Number Policy Samuel Covered Member ID Samuel Member ID Guarantor Name 11/07/2024 [facility] Heather Chávez [id number] Heather Chávez Notes Date Note Type Note Provider Name and Address Organization Details Recorded Time 11/07/2024 text/html HPI - Lumbar SpineReported bypatient.Location: left; With radiation to knee Quality:aching Severity:not changing Timing:morning Aggravating Factors:standing Alleviating Factors:esau Le DC [address] [facility], [place], [address], [facility] 11/07/2024 12:03:52 OBGyn Episode No OBEpisode recorded.
--- OUTSIDE RECORDS SUMMARY | 2024-12-07 20:22 | XMS_ITS | Encounter Summary ---
Author Organization [facility] Address [address] [place] [address] Care Team Providers Care Learning Disabilities Teacher Name Role Phone No Ref-Primary, Physician Primary Care Provider Flower Amato MD Unavailable [phone] Encounter Details Date Type Department Care Team [...] on file Legal Sex Female 11:44 PM ELECTRICAL FOREMAN Gender Identity Not on file Sexual Orientation Not on file documented as of this encounter Plan of Treatment Upcoming Encounters Date Type Department Care Team (Late st Contact Info) Description 12/10/2024 1:30 PM ELECTRICAL FOREMAN Appointment [facility] [place] [address] [place] [phone] Jesus Harmon MD [address] [place] [address] 12/10/2024 2:00 PM ELECTRICAL FOREMAN Office Visit [facility] [address] [place] [address] Jesus Harmon MD [address] [place] [address] 12/10/2024 2:15 PM ELECTRICAL FOREMAN Office Visit [facility] [address] [place] [address] Jesus Harmon MD [address] [place] [address] 12/12/2024 8:45 AM ELECTRICAL FOREMAN Appointment [facility] [address] [place] [phone] Diane Lopez MD [address] [address] 12/12/2024 9:15 AM ELECTRICAL FOREMAN Office Visit [facility] [address] [place] [address] Diane Lopez MD [address] [address] 12/14/2024 1:30 PM ELECTRICAL FOREMAN Ancillary Procedure [facility] [address] [place] [phone] Jesus Harmon MD [address] [place] [address] 12/14/2024 2:00 PM ELECTRICAL FOREMAN Office Visit [facility] [address] [address] Jesus Harmon MD [address] [place] [address] 12/17/2024 12:45 PM ELECTRICAL FOREMAN Appointment [facility] [place] [address] [place] [phone] Jesus Harmon MD [address] [place] [address] 12/17/2024 1:15 PM ELECTRICAL FOREMAN Office Visit [facility] [place] [address] [place] [address] Jesus Harmon MD [address] [place] [address] 12/17/2024 1:30 PM ELECTRICAL FOREMAN Office Visit [facility] [place] [address] [place] [address] Jesus Harmon MD [address] [place] [address] 12/19/2024 9:30 AM ELECTRICAL FOREMAN Appointment [facility] [address] [facility] [address] [place] [phone] Nicole Núñez MD [address] [place] [address] Flower Amato MD [address] [facility] [address] [address] 12/19/2024 10:00 AM ELECTRICAL FOREMAN Office Visit [facility] [address] [facility] [address] [place] [phone] Nicole Núñez MD [address] [place] [address] Flower Amato MD [address] [address] 12/21/2024 11:45 AM ELECTRICAL FOREMAN Appointment [facility] [place] [address] [address] [facility] [address] [place] [phone] Jesus Harmon MD [address] [place] [address] Karin Esteban MD [address] [place], [place] [address] [address] [address] 12/21/2024 12:15 PM ELECTRICAL FOREMAN Office Visit [facility] [place] [address] [address] [facility] [address] [place] [phone] Jesus Harmon MD [address] [place] [address] Karin Esteban MD [address] [facility] [address] [address] 12/24/2024 11:00 AM ELECTRICAL FOREMAN Appointment [facility] [place] [address] [place] [address] Jesus Harmon MD [address] [place] [address] 12/24/2024 11:30 AM ELECTRICAL FOREMAN Office Visit [facility] [place] [address] [place] [address] Jesus Harmon MD [address] [place], [place] [address] 12/24/2024 11:45 AM ELECTRICAL FOREMAN Office Visit [facility] [place] [address] [place] [address] Jesus Harmon MD [address] [place] [address] 12/26/2024 10:15 AM ELECTRICAL FOREMAN Appointment [facility] [place] [address] [facility] [address] [place] [phone] Jesus Harmon MD [address] [place] [address] 12/26/2024 10:45 AM ELECTRICAL FOREMAN Office Visit [facility] [place] [address] [facility] [address] [place] [phone] Jesus Harmon MD [address] [place] [address] 12/28/2024 10:15 AM ELECTRICAL FOREMAN Appointment [facility] [place] [address] [facility] [address] [place] [phone] Diane Lopez MD [address] [place] [address] 12/28/2024 10:45 AM ELECTRICAL FOREMAN Office Visit [facility] [place] [address] [facility] [address] [place] [phone] Diane Lopez MD [address] [place] [address] 01/11/2025 10:15 AM CDT Appointment [facility] [place] [address] [facility] [address] [place] [phone] Diane Lopez MD [address] [place] [address] 01/11/2025 10:45 AM CDT Office Visit [facility] [place] [address] [place] [phone] Diane Lopez MD [address] [place] [address] documented as of this encounter Visit Diagnoses Not on filedocumented in this encounter Care Teams Learning Disabilities Teacher Relationship Specialty Start Date End Date No Ref-Primary, Physician PCP - General 12/04/21 Flower Amato MD [address] [place] [address] Assigned OBGYN Provider 11/22/24 documented as of this encounter
--- OUTSIDE RECORDS SUMMARY | 2024-12-07 20:22 | XMS_ITS | Encounter Summary ---
Author Organization [place] Address [address] [place] [address] Care Team Providers Care Machine Programmer Name Role Phone No Ref-Primary, Physician Primary Care Provider Flower Amato MD Unavailable [phone] Reason for Referral * Diagnostic Imaging Ultrasound (Routine) - Pending Review Specialty Diagnoses / Procedures Referred By Noa lilly Referred To Contact Radiology. 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 Procedures MFM Twins US Comprehensive F/U Flower Amato MD [address] [place] [address] Phone: tel: fax: Referral ID Status Reason Start Date Expiration Date V isits Requested Visits Authorized [id number] Pending Review 11/14/2024 11/14/2025 1 1 Encounter Details Date Type Department Care Team (Latest Contact Info) Description 11/22/2024 9:28 AM PRODUCTION PLANNER - 11/22/2024 11:59 PM PRODUCTION PLANNER Hospital Encounter [facility] [place] [address] [facility] [address] [place] [address] Nicole Núñez MD [address] [place] [address] 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 [...] on file Legal Sex Female 11:44 PM PRODUCTION PLANNER Gender Identity Not on file Sexual Orientation [...] st Contact Info) Description 12/10/2024 1:30 PM PRODUCTION PLANNER Appointment [facility] [place] [address] [place] [address] Jesus Harmon MD [address] [place], [place] [address] 12/10/2024 2:00 PM PRODUCTION PLANNER Office Visit [facility] [place] [address] [place] [address] Jesus Harmon MD [address] [place], [place] [address] 12/10/2024 2:15 PM PRODUCTION PLANNER Office Visit [facility] [place] [address] [place] [address] Jesus Harmon MD [address] [place] [address] 12/12/2024 8:45 AM PRODUCTION PLANNER Appointment [facility] [address] [place] [phone] Diane Lopez MD [address] [address] 12/12/2024 9:15 AM PRODUCTION PLANNER Office Visit [facility] [address] [place] [phone] Diane Lopez MD [address] [address] [address] 12/14/2024 1:30 PM PRODUCTION PLANNER Ancillary Procedure [facility] [address] [place] [address] Jesus Harmon MD [address] [place] [address] 12/14/2024 2:00 PM PRODUCTION PLANNER Office Visit [facility] [address] [phone] Jesus Harmon MD [address] [place] [address] 12/17/2024 12:45 PM PRODUCTION PLANNER Appointment [facility] Medicine [facility] [address] [place] [address] Jesus Harmon MD [address] [place] [address] 12/17/2024 1:15 PM PRODUCTION PLANNER Office Visit [facility] [address] [place] [address] Jesus Harmon MD [address] [place] [address] 12/17/2024 1:30 PM PRODUCTION PLANNER Office Visit [facility] [place] [address] [place] [address] Jesus Harmon MD [address] [place] [address] 12/19/2024 9:30 AM PRODUCTION PLANNER Appointment [facility] [address] [facility] [address] [place] [address] Nicole Núñez MD [address] [place] [address] Flower Amato MD [address] [address] 12/19/2024 10:00 AM PRODUCTION PLANNER Office Visit [facility] [address] [place] [address] Nicole Núñez MD [address] [facility] [place] [address] Flower Amato MD [address] [facility] [address] [address] 12/21/2024 11:45 AM PRODUCTION PLANNER Appointment [facility] [place] [address] [place] [address] Jesus Harmon MD [address] [place], [place] [address] Karin Esteban MD [address] [address] 12/21/2024 12:15 PM PRODUCTION PLANNER Office Visit [facility] [address] [place] [address] Jesus Harmon MD [address] [place], [place] [address] Karin Esteban MD [address] [address] 12/24/2024 11:00 AM PRODUCTION PLANNER Appointment [facility] [place] [address] [place] [address] Jesus Harmon MD [address] [place] [address] 12/24/2024 11:30 AM PRODUCTION PLANNER Office Visit [facility] [place] [address] [place] [address] Jesus Harmon MD [address] [place] [address] 12/24/2024 11:45 AM PRODUCTION PLANNER Office Visit [facility] [place] [address] [place] [address] Jesus Harmon MD [address] [place] [address] 12/26/2024 10:15 AM PRODUCTION PLANNER Appointment [facility] [address] [place] [phone] Jesus Harmon MD [address] [place] [address] 12/26/2024 10:45 AM PRODUCTION PLANNER Office Visit [facility] [address] [place] [phone] Jesus Harmon MD [address] [place] [address] 12/28/2024 10:15 AM PRODUCTION PLANNER Appointment [facility] [address] [place] [phone] Diane Lopez MD [address] [address] 12/28/2024 10:45 AM PRODUCTION PLANNER Office Visit [facility] [address] [place] [address] Diane Lopez MD [address] [place] [address] 01/11/2025 10:15 AM CDT Appointment [facility] [address] [place] [address] Diane Lopez MD [address] [place] [address] 01/11/2025 10:45 AM CDT Office Visit [facility] M[facility] Medicine [place] [address] [place] [phone] Diane Lopez MD [address] [place] [address] documented as of this encounter Procedures Procedure Name Priority Date/Time Associated Diagnosis Comments MFM TWINS COMPREHENSIVE F/U Routine 11/22/2024 11:09 AM PRODUCTION PLANNER 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 Narrative 11/23/2024 6:03 PM [facility] Surveillance US ----- Pat. Name: HEATHER CHÁVEZ Study Date: 11/22/2024 9:46am Pat. NO: [id number] Referring MD: PAMELA CUELLAR Site: Chairman & Chief Executive Officer: José Miguel Hussein RDMS : 1995 Age: [...] the patient (reviewing medical records/tests), in direct cgty-hv-sfuv contact with the patient counseling and discussing the plan of care, documenting the visit in the electronic medical record, and communicating with other health care navigator and/or care coordination. Procedure Note Nicole Núñez MD - 11/23/2024 Surveillance ----- Pat. Name: HEATHER CHÁVEZ Study Date: 11/22/2024 9:46am Pat. NO: [id number] Referring MD: PAMELA CUELLAR Site: Chairman & Chief Executive Officer: José Miguel Hussein RDMS : 1995 Age: [...] today's evaluation or if [facility] can [facility], please contact the [facility]. anomalies may be present but not detected I spent a total of 15 minutes (excluding the ultrasound interpretation) onthe date of this encounter including preparing to see the patient(reviewing medical records/tests), in direct afmg-vb-smsj contact with the patient counseling and discussingthe plan of care, documenting the visit in the electronic medical record,and communicating with other health care navigator and/or care coordination. IMPRESSION ----- Monochorionic diamniotic [...] twin transfusionsyndrome or twin anemia polycythemia syndrome. Flower Amato MD [facility] ORDERABLES Edited Re sult - Final [...] antepartum documented in this encounter Care Teams Machine Programmer Relationship Specialty Start Date End Date No Ref-Primary, Physician PCP - General 12/04/21 Flower Amato MD [address] [place] [address] Assigned OBGYN Provider 11/22/24 documented as of this encounter
--- OUTSIDE RECORDS SUMMARY | 2024-12-07 20:22 | XMS_ITS | Encounter Summary ---
Author Organization [place] Address [address] [place] [address] Care Team Providers Care Anodize Machine Operator Name Role Phone No Ref-Primary, [...] on file Legal Sex Female 11:44 PM DINKEY SKINNER Gender Identity Not on file Sexual Orientation Not on file documented as of this encounter Plan of Treatment Upcoming Encounters Date Type Department Care Team (Late st Contact Info) Description 12/10/2024 1:30 PM DINKEY SKINNER Appointment [facility] [place] [address] [place] [phone] Jesus Harmon MD [address] [place] [phone] 12/10/2024 2:00 PM DINKEY SKINNER Office Visit [facility] [place] [address] [place], [place] [address] Jesus Harmon MD [address] [place] [address] 12/10/2024 2:15 PM DINKEY SKINNER Office Visit [facility] Maternal Medicine [facility] [address] [place] [address] Jesus Harmon MD [address] [place] [address] 12/12/2024 8:45 AM DINKEY SKINNER Appointment [facility] Maternal Medicine [facility] [address] [place] [phone] Diane Lopez MD [address] [place] [address] 12/12/2024 9:15 AM DINKEY SKINNER Office Visit [facility] Maternal Medicine [facility] [address] [place] [address] Diane Lopez MD [address] [place] [address] 12/14/2024 1:30 PM DINKEY SKINNER Ancillary Procedure [facility] Maternal Medicine [address] [address] Jesus Harmon MD [address] [place] [address] 12/14/2024 2:00 PM DINKEY SKINNER Office Visit [facility] Maternal Medicine [address] [address] Jesus Harmon MD [address] [place] [address] 12/17/2024 12:45 PM DINKEY SKINNER Appointment [facility] [place] [address] [place] [address] Jesus Harmon MD [address] [place] [address] 12/17/2024 1:15 PM DINKEY SKINNER Office Visit [facility] [place] [address] [place] [address] Jesus Harmon MD [address] [place] [address] 12/17/2024 1:30 PM DINKEY SKINNER Office Visit [facility] Maternal Medicine [facility] [address] [facility] [address] Jesus Harmon MD [address] [place] [address] 12/19/2024 9:30 AM DINKEY SKINNER Appointment [facility] Maternal Medicine [facility] [address] [place] [phone] Nicole Núñez MD [address] [place], [place] [address] Flower Amato MD [address] [facility] [address] [place], [place] [address] 12/19/2024 10:00 AM DINKEY SKINNER Office Visit [facility] Maternal Medicine [facility] [address] [place] [phone] Nicole Núñez MD [address] [place], [place] [address] Flower Amato MD [address] [place] [address] 12/21/2024 11:45 AM DINKEY SKINNER Appointment [facility] Maternal Medicine [facility] [address] [facility] [address] [place] [address] Jesus Harmon MD [address] [place] [address] Karin Esteban MD [address] [place] [address] 12/21/2024 12:15 PM DINKEY SKINNER Office Visit [facility] Maternal Medicine [facility] [address] [facility] [address] [place] [address] Jesus Harmon MD [address] [place] [address] Karin Esteban MD [address] [place] [address] 12/24/2024 11:00 AM DINKEY SKINNER [facility]ointment [facility] [place] [address] [place] [address] Jesus Harmon MD [address] [place] [address] 12/24/2024 11:30 AM DINKEY SKINNER Office Visit [facility] [place] [address] [place] [address] Jesus Harmon MD [address] [place] [address] 12/24/2024 11:45 AM DINKEY SKINNER Office Visit [facility] [place] [address] [place] [address] Jesus Harmon MD [address] [place] [address] 12/26/2024 10:15 AM DINKEY SKINNER Appointment [facility] Maternal Medicine [place] [address] [place] [address] Jesus Harmon MD [address] [place] [address] 12/26/2024 10:45 AM DINKEY SKINNER Office Visit [facility] Maternal Medicine [place] [address] [facility] [address] [place] [address] Jesus Harmon MD [address] [place] [address] 12/28/2024 10:15 AM DINKEY SKINNER Appointment [facility] Maternal Medicine [place] [address] [facility] [facility] [address] [place] [address] Diane Lopez MD [address] [place] [address] 12/28/2024 10:45 AM DINKEY SKINNER Office Visit [facility] Maternal Medicine [place] [address] [facility] [facility] [address] [place] [address] Diane Lopez MD [address] [place] [address] 01/11/2025 10:[address] [facility] Maternal Medicine [place] [address] [place] [address] Diane Lopez MD [address] [place] [address] 01/11/2025 10:45 AM CDT Office Visit [facility] Maternal Medicine [place] [address] [facility] [address] [place] [phone] Diane Lopez MD [address] [place] [address] documented as of this encounter Visit Diagnoses Not on filedocumented in this encounter Care Teams Anodize Machine Operator Relationship Specialty Start Date End Date No Ref-Primary, Physician PCP - General 12/04/21 documented as of this encounter
--- OUTSIDE RECORDS SUMMARY | 2024-12-07 20:23 | XMS_ITS | Encounter Summary ---
Author Organization [place] Address [address] [place] [address] Care Team Providers Care Injection Molding Engineer Name Role Phone No Ref-Primary, Physician Primary Care Provider Flower Amato MD Unavailable [phone] Encounter Details Date Type Department Care Team (Latest Contact Info) Description 12/05/2024 Travel Social History Tobacco Use Types Packs/Day [...] on file Legal Sex Female 11:44 PM ASSISTANT ASSOCIATE FULL PROFESSOR Gender Identity Not on file Sexual Orientation Not on file documented as of this encounter Plan of Treatment Upcoming Encounters Date Type Department Care Team (Late st Contact Info) Description 12/10/2024 1:30 PM ASSISTANT ASSOCIATE FULL PROFESSOR Appointment [facility] [place] [address] [place] [phone] Jesus Harmon MD [address] [place] [address] 12/10/2024 2:00 PM ASSISTANT ASSOCIATE FULL PROFESSOR Office Visit [facility] [address] [place] [address] Jesus Harmon MD [address] [place] [address] 12/10/2024 2:15 PM ASSISTANT ASSOCIATE FULL PROFESSOR Office Visit [facility] Maternal Medicine [facility] [address] [place] [address] Jesus Harmon MD [address] [place] [address] 12/12/2024 8:45 AM ASSISTANT ASSOCIATE FULL PROFESSOR Appointment [facility] Medicine [facility] [address] [place] [address] Diane Lopez MD [address] [address] 12/12/2024 9:15 AM ASSISTANT ASSOCIATE FULL PROFESSOR Office Visit [facility] [address] [place] [address] Diane Lopez MD [address] [address] 12/14/2024 1:30 PM ASSISTANT ASSOCIATE FULL PROFESSOR Ancillary Procedure [facility] [address] [place] [phone] Jesus Harmon MD [address] [place] [address] 12/14/2024 2:00 PM ASSISTANT ASSOCIATE FULL PROFESSOR Office Visit [facility] [address] [address] Jesus Harmon MD [address] [place] [address] 12/17/2024 12:45 PM ASSISTANT ASSOCIATE FULL PROFESSOR Appointment [facility] [place] [address] [place] [phone] Jesus Harmon MD [address] [place] [address] 12/17/2024 1:15 PM ASSISTANT ASSOCIATE FULL PROFESSOR Office Visit [facility] [place] [address] [place] [address] Jesus Harmon MD [address] [place] [address] 12/17/2024 1:30 PM ASSISTANT ASSOCIATE FULL PROFESSOR Office Visit [facility] [place] [address] [place] [address] Jesus Harmon MD [address] [place] [address] 12/19/2024 9:30 AM ASSISTANT ASSOCIATE FULL PROFESSOR Appointment [facility] [address] [place] [phone] Nicole Núñez MD [address] [place] [address] Flower Amato MD [address] [facility] [address] [address] 12/19/2024 10:00 AM ASSISTANT ASSOCIATE FULL PROFESSOR Office Visit [facility] Medicine [facility] [address] [facility] [address] [place] [phone] Nicole Núñez MD [address] [place] [address] Flower Amato MD [address] [address] 12/21/2024 11:45 AM ASSISTANT ASSOCIATE FULL PROFESSOR Appointment [facility] [place] [address] [place] [phone] Jesus Harmon MD [address] [place] [address] Karin Esteban MD [address] [place], [place] [address] [address] 12/21/2024 12:15 PM ASSISTANT ASSOCIATE FULL PROFESSOR Office Visit [facility] [place] [address] [place] [phone] Jesus Harmon MD [address] [place] [address] Karin Esteban MD [address] [facility] [address] [address] 12/24/2024 11:00 AM ASSISTANT ASSOCIATE FULL PROFESSOR Appointment [facility] [place] [address] [place] [address] Jesus Harmon MD [address] [place] [address] 12/24/2024 11:30 AM ASSISTANT ASSOCIATE FULL PROFESSOR Office Visit [facility] [place] [address] [place] [address] Jesus Harmon MD [address] [place], [place] [address] 12/24/2024 11:45 AM ASSISTANT ASSOCIATE FULL PROFESSOR Office Visit [facility] [place] [address] [facility] [place] [address] Jesus Harmon MD [address] [place] [address] 12/26/2024 10:15 AM ASSISTANT ASSOCIATE FULL PROFESSOR Appointment [facility] [place] [address] [facility] [address] [place] [phone] Jesus Harmon MD [address] [place] [address] 12/26/2024 10:45 AM ASSISTANT ASSOCIATE FULL PROFESSOR Office Visit [facility] [place] [address] [place] [phone] Jesus Harmon MD [address] [place] [address] 12/28/2024 10:15 AM ASSISTANT ASSOCIATE FULL PROFESSOR Appointment [facility] [place] [address] [facility] [address] [place] [phone] Diane Lopez MD [address] [place] [address] 12/28/2024 10:45 AM ASSISTANT ASSOCIATE FULL PROFESSOR Office Visit [facility] [place] [address] [facility] [address] [place] [phone] Diane Lopez MD [address] [place] [address] 01/11/2025 10:15 AM CDT Appointment [facility] [place] [address] [facility] [address] [place] [phone] Diane Lopez MD [address] [place] [address] 01/11/2025 10:45 AM CDT Office Visit [facility] [place] [address] [place] [phone] Diane Lopez MD [address] [place] [address] documented as of this encounter Visit Diagnoses Not on filedocumented in this encounter Care Teams Injection Molding Engineer Relationship Specialty Start Date End Date No Ref-Primary, Physician PCP - General 12/04/21 Flower Amato MD [address] [place] [address] Assigned OBGYN Provider 11/22/24 documented as of this encounter
--- OUTSIDE RECORDS SUMMARY | 2024-12-07 20:23 | XMS_ITS | Encounter Summary ---
Author Organization [facility] Address [address] [place] [address] Care Team Providers Care Odd Bundle Worker Name Role Phone No Ref-Primary, Physician Primary Care Provider Flower Amato MD Unavailable [phone] Reason for Referral * CV Testing (Routine) - Closed Specialty Diagnoses / Procedures Referred By Contac t Referred To Contact Cardiology Diagnoses Monochorionic diamniotic twin gestation Procedures Echo (TTE) Complete Yobani Lopez MD [address] [place] [address] Phone: tel: fax: [facility] [address] [address] Phone: tel: Referral ID Status Reason Start Date Expiration Date Visits Re quested Visits Authorized [id number] Closed 10/19/2024 10/19/2025 1 1 ETS AND PIECES NECKTIE OPERATOR Reason for Visit * CV Testing (Routine) - Closed Specialty Diagnoses / Procedures Referred By Contac t Referred To Contact Cardiology Diagnoses Monochorionic diamniotic twin gestation Procedures Echo (TTE) Yobani Olivares MD [address] [place] [address] Phone: tel: fax: [facility] [address] [place] [address] Phone: tel: Referral ID Status Reason Start Date Expiration Date Visits Re quested Visits Authorized [id number] Closed 10/19/2024 10/19/2025 1 1 Encounter Details Date Type Department Care Team (Latest Contact Info) Description 11/30/2024 12:00 PM POCKETS AND PIECES NECKTIE OPERATOR - 11/30/2024 12:24 PM POCKETS AND PIECES NECKTIE OPERATOR Hospital Encounter [facility] [address] [place] [phone] Yobani Lopez MD [address] [place] [address] 400 [place] [address] Monochorionic diamniotic twin gestation in [...] on file Legal Sex Female 11:44 PM POCKETS AND PIECES NECKTIE OPERATOR Gender Identity Not on file Sexual [...] st Contact Info) Description 12/10/2024 1:30 PM POCKETS AND PIECES NECKTIE OPERATOR Appointment [facility] Maternal Medicine [facility] [address] [place] [phone] Jesus Harmon MD [address] [place] [address] 12/10/2024 2:00 PM POCKETS AND PIECES NECKTIE OPERATOR Office Visit [facility] Maternal Medicine [facility] [address] [place] [address] Jesus Harmon MD [address] [place] [address] 12/10/2024 2:15 PM POCKETS AND PIECES NECKTIE OPERATOR Office Visit [facility] Maternal Medicine [facility] [address] [facility] [place] [address] Jesus Harmon MD [address] [place] [address] 12/12/2024 8:45 AM POCKETS AND PIECES NECKTIE OPERATOR Appointment [facility] Maternal Medicine [facility] [address] [facility] [address] [place] [phone] Yobani Lopez MD [address] [facility] [address] [place] [address] 12/12/2024 9:15 AM POCKETS AND PIECES NECKTIE OPERATOR Office Visit [facility] Maternal Medicine [facility] [address] [facility] [address] [place] [phone] Yobani Lopez MD [address] [place] [address] 12/14/2024 1:30 PM POCKETS AND PIECES NECKTIE OPERATOR Ancillary Procedure [facility] Maternal Medicine [address] [place] [address] Jesus Harmon MD [address] [place] [address] 12/14/2024 2:00 PM POCKETS AND PIECES NECKTIE OPERATOR Office Visit [facility] Maternal Medicine [address] [phone] Jesus Harmon MD [address] [place] [address] 12/17/2024 12:45 PM POCKETS AND PIECES NECKTIE OPERATOR Appointment [facility] Maternal Medicine [facility] [address] [place] [address] Jesus Harmon MD [address] [place] [address] 12/17/2024 1:15 PM POCKETS AND PIECES NECKTIE OPERATOR Office Visit [facility] Maternal Medicine [facility] [place] [address] [place] [address] Jesus Hramon MD [address] [place] [address] 12/17/2024 1:30 PM POCKETS AND PIECES NECKTIE OPERATOR Office Visit [facility] M[facility] Medicine [facility] [place] [address] [place] [address] Jesus Harmon MD [address] [place] [address] 12/19/2024 9:30 AM POCKETS AND PIECES NECKTIE OPERATOR Appointment [facility] Maternal Medicine [place] [address] [address] [facility] [address] [place] [phone] Nicole Núñez MD [address] [place] [address] Flower Amato MD [address] [address] 12/19/2024 10:00 AM POCKETS AND PIECES NECKTIE OPERATOR Office Visit [facility] Maternal Medicine [place] [address] [address] [facility] [address] [place] [phone] Nicole Núñez MD [address] [facility] [place] [address] Flower Amato MD [address] [address] 12/21/2024 11:45 AM POCKETS AND PIECES NECKTIE OPERATOR Appointment [facility] Maternal Medicine [place] [address] [address] [facility] [address] [place] [phone] Jesus Harmon MD [address] [place] [address] Karin Esteban MD [address] [address] 12/21/2024 12:15 PM POCKETS AND PIECES NECKTIE OPERATOR Office Visit [facility] Maternal Medicine [place] [address] [address] [facility] [address] [place] [phone] Jesus Harmon MD [address] [place] [address] Karin Esteban MD [address] [address] 12/24/2024 11:00 AM POCKETS AND PIECES NECKTIE OPERATOR Appointment [facility] M[facility] Medicine [facility] [place] [address] [place] [address] Jesus Harmon MD [address] [place] [address] 12/24/2024 11:30 AM POCKETS AND PIECES NECKTIE OPERATOR Office Visit [facility] M[facility] [place] [address] [place] [address] Jesus Harmon MD [address] [place] [address] 12/24/2024 11:45 AM POCKETS AND PIECES NECKTIE OPERATOR Office Visit [facility] M[facility] [place] [address] [place] [address] Jesus Harmon MD [address] [place], [place] [address] 12/26/2024 10:15 AM POCKETS AND PIECES NECKTIE OPERATOR Appointment [facility] Maternal Medicine [place] [address] [place] [phone] Jesus Harmon MD [address] [place] [address] 12/26/2024 10:45 AM POCKETS AND PIECES NECKTIE OPERATOR Office Visit [facility] Maternal Medicine [facility] [address] [place] [phone] Jesus Harmon MD [address] [place] [address] 12/28/2024 10:15 AM POCKETS AND PIECES NECKTIE OPERATOR Appointment [facility] Maternal Medicine [facility] [address] [place] [phone] Yobani Lopez MD [address] [place] [address] 12/28/2024 10:45 AM POCKETS AND PIECES NECKTIE OPERATOR Office Visit [facility] Medicine [place] [address] [address] [facility] [address] [place] [phone] Yobani Lopez MD [address] [place] [address] 01/11/2025 10:15 AM CDT Appointment [facility] Medicine [place] [address] [address] [facility] [address] [place] [phone] Yobani Lopez MD [address] [place] [address] 01/11/2025 10:45 AM CDT Office Visit [facility] Medicine [place] [address] [address] [facility] [address] [place] [phone] Yobani Lopez MD [address] [place] [address] documented as of this encounter Procedures Procedure Name Priority Date/Time Associated Diagnosis Comments ECHO COMPLETE Routine 11/30/2024 1 :46 PM POCKETS AND PIECES NECKTIE OPERATOR 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 [address] Echocardiogram Name: HEATHER CHÁVEZ Study Date: 11/30/2024 01:31 PM Patient Location: [facility] Gender: Female Patient Class: Outpatient : [id number] Age: 29 yrs Ordering Provider: YOBANI LOPEZ Referring Provider: YOBANI LOPEZ Performed By: Daphney Dao RDCS Reading Physician: Luc Dominguez MD Reason For Study: Monochorionic diamniotic twin gestation in second trimester Data: Number of fetuses: This is a twin gestation. Due date: 04/07/2025. Gestational age: 21w5d. Delivery at: [facility]. Specific Indication: echocardiogram performed for monochorionic diamniotic [...] to the left atrium. There is laminar esgga-nh-gptr shunting across the foramen ovale. Atrioventricular valves: [...] Procedure Note Luc Dominguez MD - 11/30/2024 [id number] [facility] [id number]^[id number] Study ID:[id number] [facility] [place] [address] Echocardiogram Name: HEATHER CHÁVEZ Study Date: 11/30/2024 01:31 PM Patient Location: [facility] Gender: Female Patient Class:Outpatient : [id number] Age: 29 yrs Ordering Provider: YOBANI LOPEZ Referring Provider: YOBANI LOPEZ Performed By: Daphney Dao RDCS Reading Physician: Luc Dominguez MD Reason For Study: Monochorionic diamniotic twin gestation in secondtrimester Data: Number of fetuses: This is a twin gestation. Due date: 04/07/2025. Gestational age: 21w5d. Delivery at: [facility]. Specific Indication: echocardiogram performed formonochorionic diamniotic twins. [...] in to the left atrium. There is agoeiorbyltr-gq-jjox shunting across the foramen ovale. Atrioventricular valves: [...] antepartum documented in this encounter Care Teams Odd Bundle Worker Relationship Specialty Start Date End Date No Ref-Primary, Physician PCP - General 12/04/21 Flower Amato MD [address] [address] Assigned OBGYN Provider 11/22/24 documented as of this encounter
--- OUTSIDE RECORDS SUMMARY | 2024-12-07 20:23 | XMS_ITS | Encounter Summary ---
Author Organization [facility] Address [address] [place] [place] [address] Care Team Providers Care Unit Director Name Role Phone No Ref-Primary, Physician Primary Care Provider Flower Amato MD Unavailable [phone] Reason for Visit * Reason Comments Consult NICU consult- mono/d i twins sFGR Type II * Consultation (Routine: Next available opening) - Pending Review Specialty Diagnoses / Procedures Referred By Contac t Referred To Contact Diagnoses Monochorionic diamniotic twin , antepartum Flor Dickson MD [address] [facility] [address] [place] [address] Phone: tel: fax: Referral ID Status Reason Start Date Expiration Date V isits Requested Visits Authorized [id number] Pending Review 12/04/2024 12/04/2025 1 1 Encounter Details Date Type Department Care Team (Late st Contact Info) Description 12/05/2024 12:30 PM AGRICULTURE INTERN Office Visit [facility] [place] [address] [place], [place] [phone] Karin Esteban MD [address] [facility] [address] [place] [address] Rand Joe MD [address] [facility] [place] [address] Monochorionic diamniotic twin , antepartum Social History Tobacco Use Types Packs/Day [...] on file Legal Sex Female 11:44 PM AGRICULTURE INTERN Gender Identity Not on file Sexual Orientation Not on file documented as of this encounter Progress Notes * Rand Joe MD - 12/05/2024 12:30 PM CST Dear Colleagues: I had the pleasure of meeting your patient, Heather Chávez, for counseling in the Maternal Medicine Clinic at the [facility]. She was referred tome for consultation by Dr. Harmon of the Maternal Medicine service. Ms. Chávez, accompanied by her partner Los, is presently at 22 weeks and 3 days' gestation and is with monochorionic diamniotic twins, twin girls (A Maureen Dennis, and B Isidra Wallace), with a due date of 04/07/2025. The twin gestation has been complicated by growth restriction in twin B (last growth ultrasound at 22w1d PMA showed EFW 352g) with intermittent reversed end diastolic flow. Of note, there was abnormal ductus venosus flow 2 days before this visit, and it was normal on the day of this visit. There has been mild polyhydramnios in twin A. NIPT was normal. echos were normal. The has been otherwise uncomplicated. The couple has two other children, Nicole (3yo) and Alexis (5yo), who were born at term and are healthy. They also shared strong gopal and connection with their extended family (Heather's mom and both of Los's parents were specifically mentioned), which theyfind supportive and helpful in navigating the challenges the and planning for their stated goal of two healthy babies. I reviewed with Ms. Chávez and her partner the implications of being born prematurely at various gestational ages, starting from 22 weeks up to 28 weeks. We discussed the risk for mortality in the first few days after as well as ongoing risk during the NICU stay. Regarding morbidities, I counseled them about categories including chronic lung disease, neurodevelopmental outcomes (including intraventricular hemorrhage, cognitive delays, and cerebral palsy), retinopathy of prematurity, feeding and intestinal issues. We discussed that all of these morbidities can range from mild to sever, and the incidences of severe morbidities drops with advancing gestational age. I described to them the typical issues surrounding infants born prematurely, and these can include,but are not limited to, respiratory failure with immature lungs immature lungs often requiring treatment with mechanical ventilation and surfactant replacement therapy, intracranial hemorrhage that can be of varying severity, and infections given their immature immune system. I reviewed with them too the typical length of stay of babies born prematurely, that include a length of stay that can be as long as the month after their due date, though discharge can occur sooner than that if babies do well, and occasionally later if an infant suffers any more major complications of being born prematurely. I discussed NICU attendance at delivery and the make-up of the medical team. I described plans for nutrition for babies born early, which includes gavage feedings of maternal breast milk and the needfor IV nutrition until infants born prematurely are completely transitioned over to enteral feedings of breast milk. I reviewed with them briefly the general transition to oral feedings that typically takes several weeks for infants born very prematurely. I discussed the overall makeup of the medical team and healthcare providers in the [facility]. I briefly described the typical structure of rounds. We briefly covered welcoming policies. They will continue to meet frequently with the maternal medicine physician team in this difficult situation balancing survival and well-being of both twins. Currently the plan is for three times weekly doppler monitoring and consideration for in-patient admission based on ongoing results along with the next growth ultrasound scheduled at 24 weeks. We did discuss planning for betamethasone and magnesium for neuroprotection if delivery is felt to be becoming more imminent. I answered their questions to the best of my abilities and provided them with my contact information should questions arise following this clinic visit. I appreciate the opportunity to meet this delightful and thoughtful couple and we look forward to caring for their infant girls in the intensive care unit at the [facility]. Total time spent in consultation was 45 minutes, 100% of the time spent in direct counseling. Sincerely, Rand Joe MD Attending Tour Bus Driver/Guide [facility] NICU CULTURE INTERN documented in this encounter Plan of Treatment Upcoming Encounters Date Type Department Care Team (Late st Contact Info) Description 12/10/2024 1:30 PM AGRICULTURE INTERN Appointment [facility] Maternal Medicine [facility] [address] [place] [address] Jesus Harmon MD 500 [place], [place] [address] 12/10/2024 2:00 PM AGRICULTURE INTERN Office Visit [facility] Maternal Medicine [facility] [address] [place] [address] Jesus Harmon MD [address] [place] [address] 12/10/2024 2:15 PM AGRICULTURE INTERN Office Visit [facility] Maternal Medicine [facility] [address] [place] [address] Jesus Harmon MD [address] [place] [address] 12/12/2024 8:45 AM AGRICULTURE INTERN Appointment [facility] Maternal Medicine [facility] [address] [place] [phone] Diane Lopez MD [address] [address] 12/12/2024 9:15 AM AGRICULTURE INTERN Office Visit [facility] Maternal Medicine [facility] [address] [place] [phone] Diane Lopez MD [address] [place] [address] 12/14/2024 1:30 PM AGRICULTURE INTERN Ancillary Procedure [facility] Maternal Medicine [address] [place] [address] Jesus Harmon MD [address] [place] [address] 12/14/2024 2:00 PM AGRICULTURE INTERN Office Visit [facility] Maternal Medicine [address] [phone] Jesus Harmon MD [address] [place] [address] 12/17/2024 12:45 PM AGRICULTURE INTERN Appointment [facility] Maternal Medicine [facility] [address] [place] [address] Jesus Harmon MD [address] [place] [address] 12/17/2024 1:15 PM AGRICULTURE INTERN Office Visit [facility] [address] [place] [address] Jesus Harmon MD [address] [place] [address] 12/17/2024 1:30 PM AGRICULTURE INTERN Office Visit [facility] [address] [place] [address] Jesus Harmon MD 500 [place] [address] 12/19/2024 9:30 AM AGRICULTURE INTERN Appointment [facility] Maternal Medicine [facility] [address] [facility] [address] [place] [phone]57 Nicole Núñez MD [address] [place] [address] Flower Amato MD [address] [facility] [address] [address] 12/19/2024 10:00 AM AGRICULTURE INTERN Office Visit [facility] Maternal Medicine [facility] [address] [place] [address] Nicole Núñez MD [address] [facility] [place] [address] Flower Amato MD [address] [facility] [address] [address] 12/21/2024 11:45 AM AGRICULTURE INTERN Appointment [facility] Maternal Medicine [facility] [address] [place] [address] Jesus Harmon MD [address] [place], [place] [address] Karin Esteban MD [address] [address] [address] 12/21/2024 12:15 PM AGRICULTURE INTERN Office Visit [facility] Maternal Medicine [facility] [address] [place] [address] Jesus Harmon MD [address] [place], [place] [address] Karin Esteban MD [address] [facility] [address] [address] 12/24/2024 11:00 AM AGRICULTURE INTERN Appointment [facility] [address] [place] [address] Jesus Harmon MD 500 [place] [address] 12/24/2024 11:30 AM AGRICULTURE INTERN Office Visit [facility] [address] [facility] [place] [address] Jesus Harmon MD [address] [place] [address] 12/24/2024 11:45 AM AGRICULTURE INTERN Office Visit [facility] [address] [facility] [place] [address] Jesus Harmon MD [address] [place] [address] 12/26/2024 10:15 AM AGRICULTURE INTERN Appointment [facility] Maternal Medicine [facility] [address] [place] [phone] Jesus Harmon MD [address] [place] [address] 12/26/2024 10:45 AM AGRICULTURE INTERN Office Visit [facility] Maternal Medicine [facility] [address] [place] [phone] Jesus Harmon MD [address] [place] [address] 12/28/2024 10:15 AM AGRICULTURE INTERN Appointment [facility] Maternal Medicine [facility] [address] [place] [phone] Diane Lopez MD [address] [address] 12/28/2024 10:45 AM AGRICULTURE INTERN Office Visit [facility] Maternal Medicine [facility] [address] [place] [address] Diane Lopez MD [address] [place] [address] 01/11/2025 10:15 AM CDT Appointment [facility] Maternal Medicine [facility] [address] [place] [address] Diane Lopez MD [address] [place] [address] 01/11/2025 10:45 AM CDT Office Visit [facility] Maternal Medicine [facility] [address] [place] [phone] Diane Lopez MD [address] [place] [address] documented as of this encounter Visit Diagnoses Diagnosis Monochorionic diamniotic twin , antepartum Twin , [...] antepartum documented in this encounter Care Teams Unit Director Relationship Specialty Start Date End Date No Ref-Primary, Physician PCP - General 12/04/21 Flower Amato MD [address] [place] [address] Assigned OBGYN Provider 11/22/24 documented as of this encounter
--- OUTSIDE RECORDS SUMMARY | 2024-12-07 20:23 | XMS_ITS | Encounter Summary ---
Author Organization [facility] Address [address] [place] [address] Care Team Providers Care Toy Mechanic Name Role Phone No Ref-Primary, Physician [...] on file Legal Sex Female 11:44 PM CAMP ATTENDANT Gender Identity Not on file Sexual Orientation Not on file documented as of this encounter Plan of Treatment Upcoming Encounters Date Type Department Care Team (Late st Contact Info) Description 12/10/2024 1:30 PM CAMP ATTENDANT Appointment [facility] [place] [address] [place] [phone] Jesus Harmon MD [address] [place] [phone] 12/10/2024 2:00 PM CAMP ATTENDANT Office Visit [facility] [place] [address] [place], [place] [phone] Jesus Harmon MD [address] [place] [phone] 12/10/2024 2:15 PM CAMP ATTENDANT Office Visit [facility] Maternal Medicine [facility] [address] [place] [address] Jesus Harmon MD [address] [place] [address] 12/12/2024 8:45 AM CAMP ATTENDANT Appointment [facility] Medicine [facility] [address] [place] [phone] Diane Lopez MD [address] [place] [address] 12/12/2024 9:15 AM CAMP ATTENDANT Office Visit [facility] [address] [place] [address] Diane Lopez MD [address] [place] [address] 12/14/2024 1:30 PM CAMP ATTENDANT Ancillary Procedure [facility] [address] [phone] Jesus Harmon MD [address] [place] [address] 12/14/2024 2:00 PM CAMP ATTENDANT Office Visit [facility] [address] [phone] Jesus Harmon MD [address] [place] [address] 12/17/2024 12:45 PM CAMP ATTENDANT Appointment [facility] [place] [address] [place] [address] Jesus Harmon MD [address] [place] [address] 12/17/2024 1:15 PM CAMP ATTENDANT Office Visit [facility] [place] [address] [place] [address] Jesus Harmon MD [address] [place] [address] 12/17/2024 1:30 PM CAMP ATTENDANT Office Visit [facility] Maternal Medicine [facility] [address] [place] [address] Jesus Harmon MD [address] [place] [address] 12/19/2024 9:30 AM CAMP ATTENDANT Appointment [facility] M[facility] Medicine [facility] [address] [place] [phone] Nicole Núñez MD [address] [place], [place] [address] Flower Amato MD [address] [facility] [address] [place], [place] [address] 12/19/2024 10:00 AM CAMP ATTENDANT Office Visit [facility] Maternal Medicine [facility] [address] [place] [phone] Nicole Núñez MD [address] [place], [place] [address] Flower Amato MD [address] [place] [address] 12/21/2024 11:45 AM CAMP ATTENDANT Appointment [facility] [address] [facility] [address] [place] [address] Jesus Harmon MD [address] [place] [address] Karin Esteban MD [address] [place] [address] 12/21/2024 12:15 PM CAMP ATTENDANT Office Visit [facility] M[facility] [address] [facility] [address] [place] [address] Jesus Harmon MD [address] [place] [address] Karin Esteban MD [address] [place] [address] 12/24/2024 11:00 AM CAMP ATTENDANT Appointment [facility] [place] [address] [place] [phone] Jesus Harmon MD [address] [place] [address] 12/24/2024 11:30 AM CAMP ATTENDANT Office Visit [facility] [place] [address] [place] [address] Jesus Harmon MD [address] [place] [address] 12/24/2024 11:45 AM CAMP ATTENDANT Office Visit [facility] [place] [address] [place] [address] Jesus Harmon MD [address] [place] [address] 12/26/2024 10:15 AM CAMP ATTENDANT Appointment [facility] [place] [address] [place] [phone] Jesus Harmon MD [address] [place] [address] 12/26/2024 10:45 AM CAMP ATTENDANT Office [facility] [place] [address] [address] [facility] [address] [place] [phone] Jesus Harmon MD [address] [place] [address] 12/28/2024 10:15 AM CAMP ATTENDANT Appointment [facility] [place] [address] [facility] [address] [place] [phone] Diane Lopez MD [address] [place] [address] 12/28/2024 10:45 AM CAMP ATTENDANT Office Visit [facility] [place] [address] [facility] [address] [place] [phone] Diane Lopez MD [address] [place] [address] 01/11/2025 10:15 AM CDT Appointment [facility] [place] [address] [place] [phone] Diane Lopez MD [address] [place] [address] 01/11/2025 10:45 AM CDT Office Visit [facility] [place] [address] [address] [facility] [address] [place] [phone] Diane Lopez MD [address] [place] [address] documented as of this encounter Visit Diagnoses Not on filedocumented in this encounter Care Teams Toy Mechanic Relationship Specialty Start Date End Date No Ref-Primary, Physician PCP - General 12/04/21 documented as of this encounter
--- OUTSIDE RECORDS SUMMARY | 2024-12-07 20:23 | XMS_ITS | Encounter Summary ---
Author Organization [facility] Address [address] [place] [address] Care Team Providers Care Furnace Process Supervisor Name Role Phone No Ref-Primary, Physician Primary Care Provider Flower Amato MD Unavailable [phone] Encounter Details Date Type Department Care Team (Late st Contact Info) Description 11/30/2024 Office Visit [facility] [address] [facility] [address] [place] [phone] Luc Dominguez MD [address] [place] [address] cardiac anomaly complicating , antepartum, fetus [...] file Legal Sex Female 11:44 PM CUSTOMER OPERATIONS ASSOCIATE Gender Identity Not on file Sexual Orientation Not on file documented as of this encounter Progress Notes * Luc Dominguez MD - 11/30/2024 1:03 PM CST [facility] Consult Note Patient: Heather Chávez Date of : 1995 Age: [age] year old Date of Visit: 11/30/2024 PCP: No Ref-Primary, Physician Dear No ref. provider found: I had the pleasure of seeing Heather Chávez at the [facility] on 11/30/2024 in cardiology consultation for echocardiogram results. She presented today accompanied by her sister in law. As you know, she is a 29 year old at 21w5d who presented for echocardiogram today because of [place]-Di twins. I performed and interpreted the echocardiogram [...] care. I spent approximately 45 minutes in [id number] time reviewing the above considerations. Kade Dominguez M.D. Pediatric Cardiology [address] Academic Office Building 4th floor, [facility] [address] OMER OPERATIONS ASSOCIATE documented in this encounter Plan of Treatment Upcoming Encounters Date Type Department Care Team (Late st Contact Info) Description 12/10/2024 1:30 PM CUSTOMER OPERATIONS ASSOCIATE Appointment [facility] [address] [place] [phone] Jesus Harmon MD [address] [place] [address] 12/10/2024 2:00 PM CUSTOMER OPERATIONS ASSOCIATE Office Visit [facility] [address] [place] [address] Jesus Harmon MD [address] [place] [address] 12/10/2024 2:15 PM CUSTOMER OPERATIONS ASSOCIATE Office Visit [facility] [address] [place] [address] Jesus Harmon MD [address] [place] [address] 12/12/2024 8:45 AM CUSTOMER OPERATIONS ASSOCIATE Appointment [facility] [address] [facility] [address] [place] [phone] Diane Lopez MD [address] [address] 12/12/2024 9:15 AM CUSTOMER OPERATIONS ASSOCIATE Office Visit [facility] [address] [facility] [address] [place] [phone] Diane Lopez MD [address] [facility] [address] [address] 12/14/2024 1:30 PM CUSTOMER OPERATIONS ASSOCIATE Ancillary Procedure [facility] [address] [phone] Jesus Harmon MD [address] [place] [address] 12/14/2024 2:00 PM CUSTOMER OPERATIONS ASSOCIATE Office Visit [facility] [address] [phone] Jesus Harmon MD [address] [place] [address] 12/17/2024 12:45 PM CUSTOMER OPERATIONS ASSOCIATE Appointment [facility] [address] [place] [address] Jesus Harmon MD [address] [place] [address] 12/17/2024 1:15 PM CUSTOMER OPERATIONS ASSOCIATE Office Visit [facility] [place] [address] [place] [address] Jesus Harmon MD [address] [place] [address] 12/17/2024 1:30 PM CUSTOMER OPERATIONS ASSOCIATE Office Visit [facility] [place] [address] [place] [address] Jesus Harmon MD [address] [place] [address] 12/19/2024 9:30 AM CUSTOMER OPERATIONS ASSOCIATE Appointment [facility] [address] [facility] [address] [place] [phone] Nicole Núñez MD [address] [facility] [place] [address] Flower Amato MD [address] [facility] [address] [address] 12/19/2024 10:00 AM CUSTOMER OPERATIONS ASSOCIATE Office Visit [facility] [place] [address] [address] [facility] [address] [place] [phone] Nicole Núñez MD [address] [facility] [address] [place], [place] [address] Flower Amato MD [address] [address] [address] 12/21/2024 11:45 AM CUSTOMER OPERATIONS ASSOCIATE Appointment [facility] [place] [address] [address] [facility] [address] [place] [phone] Jesus Harmon MD [address] [place], [place] [address] Karin Esteban MD [address] [address] [address] 12/21/2024 12:15 PM CUSTOMER OPERATIONS ASSOCIATE Office Visit [facility] [place] [address] [address] [facility] [address] [place] [phone] Jesus Harmon MD [address] [place], [place] [address] Karin Esteban MD [address] [address] [address] 12/24/2024 11:00 AM CUSTOMER OPERATIONS ASSOCIATE Appointment [facility] Medicine [address] [address] Jesus Harmon MD [address] [place] [address] 12/24/2024 11:30 AM CUSTOMER OPERATIONS ASSOCIATE Office Visit [facility] [place] [address] [place] [address] Jesus Harmon MD [address] [place] [address] 12/24/2024 11:45 AM CUSTOMER OPERATIONS ASSOCIATE Office Visit [facility] [address] [place] [address] Jesus Harmon MD [address] [place] [address] 12/26/2024 10:15 AM CUSTOMER OPERATIONS ASSOCIATE Appointment [facility] [place] [address] [place] [phone] Jesus Harmon MD [address] [place] [address] 12/26/2024 10:45 AM CUSTOMER OPERATIONS ASSOCIATE Office Visit [facility] [address] [place] [phone] Jesus Harmon MD [address] [place] [address] 12/28/2024 10:15 AM CUSTOMER OPERATIONS ASSOCIATE Appointment [facility] [address] [place] [phone] Diane Lopez MD [address] [address] 12/28/2024 10:45 AM CUSTOMER OPERATIONS ASSOCIATE Office Visit [facility] [address] [place] [address] Diane Lopez MD [address] [place] [address] 01/11/2025 10:15 AM CDT Appointment [facility] [address] [place] [address] Diane Lopez MD [address] [place] [address] 01/11/2025 10:45 AM CDT Office Visit [facility] [address] [place] [phone] Diane Lopez MD [address] [place] [address] documented as of this encounter Visit Diagnoses Diagnosis cardiac anomaly complicating , antepartum, fetus 1- Primary cardiac anomaly complicating , antepartum, fetus 2 Monochorionic diamniotic twin , antepartum [...] antepartum documented in this encounter Care Teams Furnace Process Supervisor Relationship Specialty Start Date End Date No Ref-Primary, Physician PCP - General 12/04/21 Flower Amato MD [address] [address] Assigned OBGYN Provider 11/22/24 documented as of this encounter
--- OUTSIDE RECORDS SUMMARY | 2024-12-07 20:23 | XMS_ITS | Encounter Summary ---
Author Organization [facility] Address [address] [place] [address] Care Team Providers Care Casting Chipper Name Role Phone No Ref-Primary, Physician Primary Care Provider Flower Amato MD Unavailable [phone] Reason for Referral * Consultation (Routine: Next available opening) - Pending Review Specialty Diagnoses / Procedures Referred By Noa lilly Referred To Contact Diagnoses Monochorionic diamniotic twin , antepartum Poor growth affecting management of mother in second trimester, fetus 2 Umbilical cord complication, unspecified cord complication, fetus 2 Jesus Harmon MD [address] [place] [address] Phone: tel: fax: Referral ID Status Reason Start Date Expiration Date V isits Requested Visits Authorized [id number] Pending Review 12/05/2024 12/05/2025 3 3 Question Answer Office Visit Type: OB Visit - Follow-Up Comments Weekly OB visits URY RECOVERER * Diagnostic Imaging Ultrasound (Routine) - Pending Review Specialty Diagnoses / Procedures Referred By Noa lilly Referred To Contact Radiology. Diagnoses Monochorionic diamniotic twin , antepartum Procedures MFM Twins US Comprehensive F/U Jesus Harmon MD [address] [place] [address] Phone: tel: fax: Referral ID Status Reason Start Date Expiration Date V isits Requested Visits Authorized [id number] Pending Review 12/05/2024 12/05/2025 1 1 URY RECOVERER * Diagnostic Imaging Ultrasound (Routine) - Pending Review Specialty Diagnoses / Procedures Referred By Contac t Referred To Contact Radiology. Diagnoses Monochorionic diamniotic twin , antepartum Procedures MFM Twins US Comprehensive F/U Jesus Harmon MD [address] [place] [address] Phone: tel: fax: Referral ID Status Reason Start Date Expiration Date V isits Requested Visits Authorized [id number] Pending Review 12/05/2024 12/05/2025 1 1 URY RECOVERER * Diagnostic Imaging Ultrasound (Routine) - Pending Review Specialty Diagnoses / Procedures Referred By Contac t Referred To Contact Radiology. Diagnoses Monochorionic diamniotic twin , antepartum Procedures MFM Twins US Comprehensive F/U Jesus Harmon MD [address] [place] [address] Phone: tel: fax: Referral ID Status Reason Start Date Expiration Date V isits Requested Visits Authorized [id number] Pending Review 12/05/2024 12/05/2025 1 1 URY RECOVERER * Diagnostic Imaging Ultrasound (Routine) - Pending Review Specialty Diagnoses / Procedures Referred By Contac t Referred To Contact Radiology. Diagnoses Monochorionic diamniotic twin , antepartum Procedures MFM Twins US Comprehensive F/U Jesus Harmon MD [address] [place] [address] Phone: tel: fax: Referral ID Status Reason Start Date Expiration Date V isits Requested Visits Authorized [id number] Pending Review 12/05/2024 12/05/2025 1 1 URY RECOVERER * Diagnostic Imaging Ultrasound (Routine) - Pending Review Specialty Diagnoses / Procedures Referred By Contac t Referred To Contact Radiology. Diagnoses Monochorionic diamniotic twin , antepartum Procedures MFM Twins US Comprehensive F/U Jesus Harmon MD [address] [place] [address] Phone: tel: fax: Referral ID Status Reason Start Date Expiration Date V isits Requested Visits Authorized [id number] Pending Review 12/05/2024 12/05/2025 1 1 URY RECOVERER * Diagnostic Imaging Ultrasound (Routine) - Pending Review Specialty Diagnoses / Procedures Referred By Contac t Referred To Contact Radiology. Diagnoses Monochorionic diamniotic twin , antepartum Procedures MFM Twins US Comprehensive F/U Jesus Harmon MD [address] [place] [address] Phone: tel: fax: Referral ID Status Reason Start Date Expiration Date V isits Requested Visits Authorized [id number] Pending Review 12/05/2024 12/05/2025 1 1 URY RECOVERER * Diagnostic Imaging Ultrasound (Routine) - Pending Review Specialty Diagnoses / Procedures Referred By Contac t Referred To Contact Radiology. Diagnoses Monochorionic diamniotic twin , antepartum Procedures MFM Twins US Comprehensive F/U Jesus Harmon MD [address] [place] [address] Phone: tel: fax: Referral ID Status Reason Start Date Expiration Date V isits Requested Visits Authorized [id number] Pending Review 12/05/2024 12/05/2025 1 1 URY RECOVERER Reason for Visit * Reason Comments Ultrasound RL2/UAR/MCA- mono/di twins, FGR fetus 2 Encounter Details Date Type Department Care Team (Latest Contact Info) Description 12/05/2024 12:15 PM MERCURY RECOVERER Office Visit [facility] [place] [address] [place], [place] [address] Karin Esteban MD [address] [place], [place] [phone] Jesus Harmon MD [address] [place], [place] [phone] Monochorionic diamniotic twin , antepartum (Primary Dx); Poor growth affecting management of mother in second trimester, fetus 2; Umbilical cord complication, unspecified cord complication, fetus 2 Social History Tobacco Use Types Packs/Day Years Used Date Smoking Tobacco: Never Smokeless Tobacco: Never Tobacco Cessation:Counseling Given: Not Answered Alcohol Use Standard Drinks/Week Comments Never 0 [...] on file Legal Sex Female 11:44 PM MERCURY RECOVERER Gender Identity Not on file Sexual Orientation Not on file documented as of this encounter Last Filed Vital Signs Vital Sign Reading Time Taken Comments Blood Pressure 111/70 12/05/2024 1:59 PM MERCURY RECOVERER Pulse 73 12/05/2024 1:59 PM MERCURY RECOVERER Temperature - - Respiratory Rate 18 12/05/2024 1:59 PM MERCURY RECOVERER Oxygen Saturation 100% 12/05/2024 1:59 PM MERCURY RECOVERER Inhaled Oxygen Concentration - - Weight - - Height - - Body Mass Index - - documented in this encounter Progress Notes * Jesus Harmon MD - 12/05/2024 12:15 PM CST Please see Imaging tab under Chart Review for details of today's visit. Jesus Harmon URY RECOVERER documented in this encounter Nursing Notes * Jennifer Arias RN - 12/05/2024 12:15 PM CST Deandre seen in clinic today for TTTS check and NICU consult at 22w3d gestation due to c/b mono/di twins, sFGR fetus 2, poly F1 (see report/notes). Dr. Harmon met with pt and discussed POC. Plan to three times/week TTTS checks, growth on 12/17, EDE ob visits with MFM. PCC contact information reviewed and given to patient. Pt met with Dr. Joe (photography instructor) today. Pt discharged stable and ambulatory. Jennifer Arias RN URY RECOVERER URY RECOVERER documented in this encounter Miscellaneous Notes * Addendum Note - Jennifer Arias RN - 12/05/2024 12:15 PM CSTAddended by: JENNIFER ARIAS on: 12/05/2024 02:04 PM Modules accepted: Orders URY RECOVERER documented in this encounter Plan of Treatment Upcoming Encounters Date Type Department Care Team (Late st Contact Info) Description 12/10/2024 1:30 PM MERCURY RECOVERER Appointment [facility] [place] [address] [place] [phone] Jesus Harmon MD [address] [place] [address] 12/10/2024 2:00 PM MERCURY RECOVERER Office Visit [facility] [place] [address] [place] [address] Jesus Harmon MD [address] [place] [address] 12/10/2024 2:15 PM MERCURY RECOVERER Office Visit [facility] [place] [address] [place] [address] Jesus Harmon MD [address] [place] [address] 12/12/2024 8:45 AM MERCURY RECOVERER Appointment [facility] Maternal Medicine [facility] [address] [place] [address] Diane Lopez MD [address] [facility] [address] [place] [address] 12/12/2024 9:15 AM MERCURY RECOVERER Office Visit [facility] Maternal Medicine [facility] [address] [place] [address] Diane Lopez MD [address] [address] 12/14/2024 1:30 PM MERCURY RECOVERER Ancillary Procedure [facility] Maternal Medicine [address] [phone] Jesus Harmon MD [address] [place] [address] 12/14/2024 2:00 PM MERCURY RECOVERER Office Visit [facility] Maternal Medicine [address] [phone] Jesus Harmon MD [address] [place] [address] 12/17/2024 12:45 PM MERCURY RECOVERER Appointment [facility] Maternal Medicine [facility] [address] [place] [address] Jesus Harmon MD [address] [place] [address] 12/17/2024 1:15 PM MERCURY RECOVERER Office Visit [facility] [place] [address] [place] [address] Jesus Harmon MD [address] [place] [address] 12/17/2024 1:30 PM MERCURY RECOVERER Office Visit [facility] [place] [address] [place] [address] Jesus Harmon MD [address] [place] [address] 12/19/2024 9:30 AM MERCURY RECOVERER Appointment [facility] Maternal Medicine [facility] [address] [place] [phone] Nicole Núñez MD [address] [place] [address] Flower Amato MD [address] [address] 12/19/2024 10:00 AM MERCURY RECOVERER Office Visit [facility] Maternal Medicine [facility] [place] [address] [place] [phone] Nicole Núñez MD [address] [place] [address] Flower Amato MD [address] [address] 12/21/2024 11:45 AM MERCURY RECOVERER Appointment [facility] Maternal Medicine [facility] [address] [place] [address] Jesus Harmon MD [address] [place] [address] Karin Esteban MD [address] [place] [address] 12/21/2024 12:15 PM MERCURY RECOVERER Office Visit [facility] Maternal Medicine [facility] [address] [place] [phone] Jesus Harmon MD [address] [place] [address] Karin Esteban MD [address] [place] [address] 12/24/2024 11:00 AM MERCURY RECOVERER Appointment [facility] [place] [address] [place] [phone] Jesus Harmon MD [address] [place] [address] 12/24/2024 11:30 AM MERCURY RECOVERER Office Visit [facility] [place] [address] [place] [address] Jesus Harmon MD [address] [place] [address] 12/24/2024 11:45 AM MERCURY RECOVERER Office Visit [facility] [place] [address] [facility] [place] [address] Jesus Harmon MD [address] [place] [address] 12/26/2024 10:15 AM MERCURY RECOVERER Appointment [facility] Maternal Medicine [facility] [address] [place] [address] Jesus Harmon MD [address] [place] [address] 12/26/2024 10:45 AM MERCURY RECOVERER Office Visit [facility] Maternal Medicine [place] [address] [facility] [address] [place] [phone] Jesus Harmon MD [address] [place] [address] 12/28/2024 10:15 AM MERCURY RECOVERER Appointment [facility] Maternal Medicine [place] [address] [address] [facility] [address] [place] [phone] Diane Lopez MD [address] [place] [address] 12/28/2024 10:45 AM MERCURY RECOVERER Office Visit [facility] Maternal Medicine [place] [address] [address] [facility] [address] [place] [phone] Diane Lopez MD [address] [place], [place] [address] 01/11/2025 10:15 AM CDT Appointment [facility] Medicine [place] [address] [address] [facility] [address] [place] [phone] Diane Lopez MD [address] [place], [place] [address] 01/11/2025 10:45 AM CDT Office Visit [facility] Maternal Medicine [place] [address] [address] [facility] [address] [place] [phone] Diane Lopez MD [address] [place], [place] [address] Scheduled Orders Name Type Priority Associated Diagnoses Orde r Schedule MFM Twins US Comprehensive F/U Imaging Routine Monochorionic diamniotic twin , antepartum Expected: 12/26/2024 (Approximate), Expires: 10/04/2025 MFM Twins US Comprehensive F/U Imaging Routine Monochorionic diamniotic twin , antepartum Expected: 12/24/2024 (Approximate), Expires: 10/04/2025 MFM Twins US Comprehensive F/U Imaging Routine Monochorionic diamniotic twin , antepartum Expected: 12/21/2024 (Approximate), Expires: 10/04/2025 MFM Twins US Comprehensive F/U Imaging Routine Monochorionic diamniotic twin , antepartum Expected: 12/14/2024 (Approximate), Expires: 10/04/2025 MFM Twins US Comprehensive F/U Imaging Routine Monochorionic diamniotic twin , antepartum Expected: 12/10/2024 (Approximate), Expires: 10/04/2025 MFM Twins US Comprehensive F/U Imaging Routine Monochorionic diamniotic twin , antepartum Expected: 12/07/2024 (Approximate), Expires: 10/04/2025 Scheduled Referrals Name Type Priority Associated Diagnoses Orde r Schedule [facility] Office Visit - OB Visit - Follow-Up Referral Routine: Next available opening Monochorionic diamniotic twin , antepartum Poor growth affecting management of mother in second trimester, fetus 2 Umbilical cord complication, unspecified cord complication, fetus 2 Weekly for 3 Occurrences starting 12/05/2024 until 01/02/2025 documented as of this encounter Results * M Twins US Comprehensive F/U (12/07/2024 11:40 AM MERCURY RECOVERER) Anatomical Region Laterality Modality Ultrasound 12/07/2024 10:4 5 AM MERCURY RECOVERER Impressions 12/07/2024 1:23 PM MERCURY RECOVERER IMPRESSION ----- Patient here for growth assessment of active monochorionic and diamniotic twins with behavior appropriate for gestational age 22 5/7 weeks. Fetus 1 1) The amniotic fluid volume appears normal as measured by MVP. 2) The UAR Doppler waveform (performed for TTTS surveillance) is normal. 3) The MCA Doppler waveform (performed for TAPS surveillance) is normal. 4) DV a-waveform (performed for FGR fetus 2) is normal with forward flow. 5) bladder is visualized. Fetus 2 1) The amniotic fluid volume appears normal as measured by MVP. 2) The UAR Doppler waveform (performed for TTTS surveillance) cycle between forward flow, absent EDF and reversed. 3) The MCA Doppler waveform (performed for TAPS surveillance) is normal. 4) DV a-waveform (performed for FGR fetus 2) is normal with forward flow. 5) bladder is visualized. Narrative 12/07/2024 1:23 PM [facility] Surveillance US ----- Pat. Name: DEANDRE LEYVA Study Date: 12/07/2024 10:45am Pat. NO: [id number] Referring MD: PAMELA CUELLAR Site: Shipping Checker: Kenyetta Lyons RDMS : 1995 Age: 29 ----- INDICATION ----- Monochorionic-Diamniotic Twin Gestation Selective Growth Restriction (FGR) fetus 2 Circumvallate placenta METHOD ----- View: Sufficient. ----- Twin . Number of fetuses: 2. Monochorionic-diamniotic DATING ----- Date Details Gest. age TOMMIE LMP 07/01/2024 22 w + 5 d 04/07/2025 Previous U/S 08/27/2024 GA, GA 7 w + 6 d 22 w + 3 d 04/09/2025 Assigned dating based on the LMP, selected on 11/22/2024 w + 5 d 04/07/2025 Fetus 1: GENERAL EVALUATION ----- Cardiac activity present. FHR 140 bpm. movements: visualized. Presentation: breech, maternal right Placenta: Placental site: anterior, thin dividing membrane Umbilical cord: Cord vessels: 3 vessel cord Amniotic fluid: Amount of AF: normal. MVP 7.5 cm Fetus 2: GENERAL EVALUATION ----- Cardiac activity present. FHR 153 bpm. movements: visualized. Presentation: breech, maternal right Placenta: Placental site: anterior, thin dividing membrane Umbilical cord: Cord vessels: 3 vessel cord Amniotic fluid: Amount of AF: normal. MVP 5.8 cm Fetus 1: DOPPLER ----- Umbilical Artery: normal PI 1.13 42% Ramírez HR 148 bpm Mid Cerebral Artery: normal PS 32.80 cm/s PS 1.14 MoM Ductus Venosus: A-wave -39.35 cm/s a/S 0.52 19% JSUM Fetus 2: DOPPLER ----- Umbilical Artery: abnormal, Intermittent Reversed End Diastolic Flow Mid Cerebral Artery: normal PS 38.37 cm/s PS 1.33 MoM Ductus Venosus: A-wave -14.99 cm/s a/S 0.24 <1% JSUM Fetus 1: TTTS ASSESSMENT ----- Cardiac activity: present Placental location: anterior, thin dividing membrane Placental cord insertion: ... bladder: normal hydrops: No MVP: 7.5 cm MCA PSV: 32.8 cm/s MCA MoM: 1.14 UA PI: 1.13, 42% Ductus Venosus: normal Fetus 2: TTTS ASSESSMENT ----- Cardiac activity: present Placental location: anterior, thin dividing membrane Placental cord insertion: ... bladder: normal hydrops: No MVP: 5.8 cm MCA PSV: 38.37 cm/s MCA MoM: 1.33 UA PI: ..., ... Ductus Venosus: normal RECOMMENDATION ----- Waveform on UA of fetus 2 consistent with cyclic changes of FGR Type III. I met with patient and her partner to review current plan of care in setting of current gestational age and patient intent for full intervention as needed to prevent loss despite current gestational age. This is a monochorionic diamniotic twin complicated by growth restriction (FGR) in Twin B with last EFW fetus 1 at the 68th percentile, fetus 2 at the 2nd percentile with a 32.5% discordance. There is cyclic forward, absent, and reversed end-diastolic flow in the umbilical artery (UA), normal middle cerebral artery (MCA) Doppler peak systolic velocity (PSV) in both fetuses, and normal ductus venosus (DV) A-wave in both fetuses. The patient presents for evaluation of a monochorionic twin gestation, which is inherently at increased risk for complications due to shared placental circulation. Monochorionicity itself confers a 10-15% risk of twin-twin transfusion syndrome (TTTS), a 5-10% risk of selective growth restriction (sFGR), and a 4-6% risk of twin anemia-polycythemia sequence (TAPS) (Nando shearer et al., 2018). In this case, the is complicated by selective FGR in Twin B, defined as an estimated weight below the 10th percentile for gestational age and an umbilical artery Doppler pattern suggestive of evolving placental insufficiency. The cyclic nature of forward, absent, and reversed end-diastolic flow (AREDF) in the umbilical artery of Twin B is concerning, as it is indicative of progressive placental dysfunction. The presence of intermittent reversal that becomes sustained has been associated with an increased risk of intrauterine demise (IUFD) (up to 40% in severe cases) and morbidity (including acidosis, hypoxia, and neurodevelopmental impairment) in up to 50% of cases (Stephanie et al., 2000; Vidal et al., 2010). However, the normal MCA Doppler PSV in both fetuses is reassuring, as it suggests no evidence of anemia or compensatory cerebral redistribution at this time. Additionally, the normal ductus venosus A-wave reduces concern for impending cardiac decompensation, which would typically precede demise in cases of severe distress. Management will involve intensive surveillance due to the dynamic nature of sFGR in monochorionic twins. Given the presence of cyclic AREDF (Type III FGR), the pattern will tend towards either correction or deteriorate to persistently absent or reversed EDF. The risk of IUFD in the growth-restricted twin is approximately 30-40% over the next few weeks if REDF develops and no intervention is undertaken (Nando shearer et al., 2018). The risk of sudden co-twin demise or neurological injury to the larger twin in cases of IUFD of the growth-restricted fetus is estimated to be 15-25%, largely due to acute hemodynamic shifts and feto- hemorrhage through placental anastomoses (Luisa et al., 2020). Given the gestational age of 22 weeks and 5 days, intervention strategies are limited. Expectant management with 3 times-weekly umbilical artery, middle cerebral artery and ductus venosus Doppler assessments is warranted, with delivery recommended if deterioration occurs (i.e., persistently reversed end-diastolic flow, reversed A-wave in the ductus venosus, or non-reassuring CTG). The median gestational age at delivery in cases of AREDF in sFGR is approximately 28-30 weeks (Radha et al., 2018), though survival rates at that gestational age exceed 85-90% with appropriate intensive care (Boris et al., 2012). Given the high risk of delivery, administration of corticosteroids is recommended if sustained REDF develops as early as 23-24 weeks, and magnesium sulfate for neuroprotection should be administered if delivery is anticipated before 32 weeks. In summary, this is at significant risk for , IUFD, and morbidity due to placental insufficiency affecting Twin B. However, reassuring MCA Doppler and ductus venosus findings suggest that immediate delivery is not yet indicated. Intensive surveillance with close Doppler assessment will guide further management, and the patient was counseled extensively regarding the risks of loss, , and complications. The option of selective reduction in the setting of progressive deterioration of Twin B was discussed but is not currently recommended given the stability of cardiac function and intent to intervene on behalf of both fetuses regardless of the prematurity that may be incurred from early delivery to both fetuses. The patient expressed understanding of the management plan and will return in three days for repeat Doppler assessment. References: ? Nando Antunez, et al. (2018). Selective intrauterine growth restriction in monochorionic twins. Best Practice & Research Clinical Obstetrics & Gynaecology, 49, 65-76. ? Vidal Calles, et al. (2010). The outcome of monochorionic diamniotic twin pregnancies with selective intrauterine growth restriction. [place] Journal of Obstetrics and Gynecology, 203(4), 333.e1-7. ? Radha HALL, et al. (2018). Consensus definition of growth restriction: A Linden procedure. Ultrasound in Obstetrics & Gynecology, 52(1), 24-29. ? Luisa Dennis, et al. (2020). Twin complications: The risk of single intrauterine demise in monochorionic twins. Diagnosis, 40(9), 8364-9630. ? Boris Dennis, et al. (2012). mortality and morbidity in monochorionic versus dichorionic twin pregnancies. Journal of Obstetrics & Gynecology and Reproductive Biology, 165(1), 81-86. Plan is to continue with three times a week UA, MCA and DV Dopplers, AF assessment and CTG for severe FGR fetus 2 and Type III FGR in UA waveform fetus 2. Repeat growth in 2-3 weeks and admission for persistently reversed REDF or AEDF for steroids, surveillance and possible delivery. Thank you for the opportunity to participate in the care of this patient. If you have questions regarding today's evaluation or if we can be of further service, please contact the [facility]. anomalies may be present but not detected Procedure Note Jaren Rodriguez MD - 12/07/2024 Surveillance ----- Pat. Name: DEANDRE LEYVA Study Date: 12/07/2024 10:45am Pat. NO: [id number] Referring MD: PAMELA CUELLAR Site: Shipping Checker: Kenyetta Lyons RDMS : 1995 Age: 29 ----- INDICATION ----- Monochorionic-Diamniotic Twin Gestation Selective Growth Restriction (FGR) fetus 2 Circumvallate placenta METHOD ----- View: Sufficient. ----- Twin . Number of fetuses: 2. Monochorionic-diamniotic DATING ----- DateDetailsGest. age TOMMIE LMP w + 5 d 04/07/2025 Previous U/S 08/27/2024 GA, GA7 w + 6 d22 w + 3 d 04/09/2025 Assigned dating based on the LMP, selected on w + 5 d 04/07/2025 Fetus 1: GENERAL EVALUATION ----- Cardiac activity present. FHR 140 bpm. movements: visualized.Presentation: breech, maternal right Placenta: Placental site: anterior, thin dividing membrane Umbilical cord: Cord vessels: 3 vessel cord Amniotic fluid: Amount of AF: normal. MVP 7.5 cm Fetus 2: GENERAL EVALUATION ----- Cardiac activity present. FHR 153 bpm. movements: visualized.Presentation: breech, maternal right Placenta: Placental site: anterior, thin dividing membrane Umbilical cord: Cord vessels: 3 vessel cord Amniotic fluid: Amount of AF: normal. MVP 5.8 cm Fetus 1: DOPPLER ----- Umbilical Artery: normal PI 1.1342%Ramírez HR 148bpm Mid Cerebral Artery: normal PS 32.80cm/s PS 1.14MoM Ductus Venosus: A-wave -39.35cm/s a/S 0.5219%JSUM Fetus 2: DOPPLER ----- Umbilical Artery: abnormal, Intermittent Reversed End Diastolic Flow Mid Cerebral Artery: normal PS 38.37cm/s PS 1.33MoM Ductus Venosus: A-wave -14.99cm/s a/S 0.24<1%JSUM Fetus 1: TTTS ASSESSMENT ----- Cardiac activity: present Placental location: anterior, thin dividing membrane Placental cord insertion: ... bladder: normal hydrops: No MVP: 7.5 cm MCA PSV: 32.8 cm/s MCA MoM: 1.14 UA PI: 1.13, 42% Ductus Venosus: normal Fetus 2: TTTS ASSESSMENT ----- Cardiac activity: present Placental location: anterior, thin dividing membrane Placental cord insertion: ... bladder: normal hydrops: No MVP: 5.8 cm MCA PSV: 38.37 cm/s MCA MoM: 1.33 UA PI: ..., ... Ductus Venosus: normal RECOMMENDATION ----- Waveform on UA of fetus 2 consistent with cyclic changes of FGR TypeIII. I met with patient and her partner to review current plan of care insetting of current gestational age and patient intent for fullintervention as needed to prevent loss despite current gestational age. This is a monochorionic diamniotic twinpregnancy complicated by growth restriction (FGR) in Twin B withlast EFW fetus 1 at the 68th percentile, fetus 2 at the 2nd percentile with a 32.5% discordance.There is cyclic forward, absent, and reversed end-diastolic flow in theumbilical artery (UA), normal middle cerebral artery (MCA) Doppler peak systolic velocity (PSV) in bothfetuses, and normal ductus venosus (DV) A-wave in both fetuses. The patient presents for evaluation of a monochorionic twin gestation,which is inherently at increased risk for complications due to sharedplacental circulation. Monochorionicity itself confers a 10-15% risk of twin-twin transfusionsyndrome (TTTS), a 5-10% risk of selective growth restriction(sFGR), and a 4-6% risk of twin anemia-polycythemia sequence (TAPS) (Nando shearer et al., 2018). In thiscase, the is complicated by selective FGR in Twin B, defined asan estimated weight below the 10th percentile for gestational age and an umbilical arteryDoppler pattern suggestive of evolving placental insufficiency. The cyclic nature of forward, absent, and reversed end-diastolic flow(AREDF) in the umbilical artery of Twin B is concerning, as it isindicative of progressive placental dysfunction. The presence of intermittent reversal that becomes sustainedhas been associated with an increased risk of intrauterine demise(IUFD) (up to 40% in severe cases) and morbidity (including acidosis, hypoxia, andneurodevelopmental impairment) in up to 50% of cases (Stephanie et al., 2000;Vidal et al., 2010). However, the normal MCA Doppler PSV in both fetuses is reassuring, as itsuggests no evidence of anemia or compensatory cerebralredistribution at this time. Additionally, the normal ductus venosus A-wave reduces concern forimpending cardiac decompensation, which would typically precedefetal demise in cases of severe distress. Management will involve intensive surveillance due to the dynamic natureof sFGR in monochorionic twins. Given the presence of cyclic AREDF (TypeIII FGR), the pattern will tend towards either correction or deteriorate to persistently absentor reversed EDF. The risk of IUFD in the growth-restricted twin isapproximately 30-40% over the next few weeks if REDF develops and no intervention is undertaken (Nando shearer etal., 2018). The risk of sudden co-twin demise or neurological injury tothe larger twin in cases of IUFD of the growth-restricted fetus is estimated to be 15-25%, largely dueto acute hemodynamic shifts and feto- hemorrhage through placentalanastomoses (Luisa et al., 2020). Given the gestational age of 22 weeks and 5 days, interventionstrategies are limited. Expectant management with 3 times-weekly umbilicalartery, middle cerebral artery and ductus venosus Doppler assessments is warranted, with deliveryrecommended if deterioration occurs (i.e., persistently reversedend-diastolic flow, reversed A-wave in the ductus venosus, or non-reassuring CTG). The mediangestational age at delivery in cases of AREDF in sFGR is dmokgplwohpah73-06 weeks (Radha et al., 2018), though survival rates at that gestational age exceed 85-90% withappropriate intensive care (Boris et al., 2012). Given the highrisk of delivery, administration of corticosteroids is recommended if sustainedREDF develops as early as 23-24 weeks, and magnesium sulfate forneuroprotection should be administered if delivery is anticipated before 32 weeks. In summary, this is at significant risk for , IUFD,and morbidity due to placental insufficiency affecting Twin B.However, reassuring MCA Doppler and ductus venosus findings suggest that immediate delivery is notyet indicated. Intensive surveillance with close Doppler assessment willguide further management, and the patient was counseled extensively regarding the risksof loss, , and complications. The option ofselective reduction in the setting of progressive deterioration of Twin B was discussed but is notcurrently recommended given the stability of cardiac function andintent to intervene on behalf of both fetuses regardless of the prematurity that may be incurred from earlydelivery to both fetuses. The patient expressed understanding of themanagement plan and will return in three days for repeat Doppler assessment. References: ? Nando Antunez, et al. (2018). Selective intrauterine growth restriction inmonochorionic twins. Best Practice & Research Clinical Obstetrics &Gynaecology, 49, 65-76. ? Vidal Calles, et al. (2010). The outcome of monochorionic diamniotic twinpregnancies with selective intrauterine growth restriction. AmericanJournal of Obstetrics and Gynecology, 203(4), 333.e1-7. ? Radha HALL, et al. (2018). Consensus definition of growthrestriction: A Linden procedure. Ultrasound in Obstetrics & Gynecology,52(1), 24-29. ? Luisa Dennis, et al. (2020). Twin complications: The risk ofsingle intrauterine demise in monochorionic twins. PrenatalDiagnosis, 40(9), 2857-6595. ? Boris M, et al. (2012). mortality and morbidity inmonochorionic versus dichorionic twin pregnancies. Journal ofObstetrics & Gynecology and Reproductive Biology, 165(1), 81-86. Plan is to continue with three times a week UA, MCA and DV Dopplers, AFassessment and CTG for severe FGR fetus 2 and Type III FGR in UA waveformfetus 2. Repeat growth in 2-3 weeks and admission for persistently reversedREDF or AEDF for steroids, surveillance and possible delivery. Thank you for the opportunity to participate in the care of this patient.If you have questions regarding today's evaluation or if we can be offurther service, please contact the [facility]. anomalies may be present but not detected IMPRESSION ----- Patient here for growth assessment of active monochorionic and diamniotictwins with behavior appropriate for gestational age 22 5/7 weeks. Fetus 1 1) The amniotic fluid volume appears normal as measured by MVP. 2) The UAR Doppler waveform (performed for TTTS surveillance) is normal. 3) The MCA Doppler waveform (performed for TAPS surveillance) is normal. 4) DV a-waveform (performed for FGR fetus 2) is normal with forwardflow. 5) bladder is visualized. Fetus 2 1) The amniotic fluid volume appears normal as measured by MVP. 2) The UAR Doppler waveform (performed for TTTS surveillance) cyclebetween forward flow, absent EDF and reversed. 3) The MCA Doppler waveform (performed for TAPS surveillance) is normal. 4) DV a-waveform (performed for FGR fetus 2) is normal with forwardflow. 5) bladder is visualized. us Jesus Harmon MD [facility] US ORDERABLES Edited Result - Final documented in this encounter Visit Diagnoses Diagnosis Monochorionic diamniotic twin , antepartum- Primary Twin , antepartum Poor growth affecting management of mother in second trimester, fetus 2 Umbilical cord complication, unspecified cord complication, fetus 2 Monochorionic diamniotic twin , antepartum [...] antepartum documented in this encounter Care Teams Casting Chipper Relationship Specialty Start Date End Date No Ref-Primary, Physician PCP - General 12/04/21 Flower Amato MD [address] [facility] [address] [place] [address] Assigned OBGYN Provider 11/22/24 documented as of this encounter
--- OUTSIDE RECORDS SUMMARY | 2024-12-07 20:23 | XMS_ITS | Encounter Summary ---
Author Organization [place] Address [address] [place] [address] Care Team Providers Care Power System Engineer Name Role Phone No Ref-Primary, Physician Primary Care Provider Flower Amato MD Unavailable [phone] Encounter Details Date Type Department Care Team (Latest Contact Info) Description 12/07/2024 Travel Social History Tobacco Use Types Packs/Day [...] on file Legal Sex Female 11:44 PM FOOD AND BEVERAGE ASSOCIATE Gender Identity Not on file Sexual Orientation Not on file documented as of this encounter Plan of Treatment Upcoming Encounters Date Type Department Care Team (Late st Contact Info) Description 12/10/2024 1:30 PM FOOD AND BEVERAGE ASSOCIATE Appointment [facility] [place] [address] [place] [phone] Jesus Harmon MD [address] [place] [address] 12/10/2024 2:00 PM FOOD AND BEVERAGE ASSOCIATE Office Visit [facility] [address] [place] [address] Jesus Harmon MD [address] [place] [address] 12/10/2024 2:15 PM FOOD AND BEVERAGE ASSOCIATE Office Visit [facility] [address] [place] [address] Jesus Harmon MD [address] [place] [address] 12/12/2024 8:45 AM FOOD AND BEVERAGE ASSOCIATE Appointment [facility] [address] [place] [phone] Diane Lopez MD [address] [address] 12/12/2024 9:15 AM FOOD AND BEVERAGE ASSOCIATE Office Visit [facility] [address] [place] [phone] Diane Lopez MD [address] [address] 12/14/2024 1:30 PM FOOD AND BEVERAGE ASSOCIATE Ancillary Procedure [facility] [address] [place] [phone] Jesus Harmon MD [address] [place] [address] 12/14/2024 2:00 PM FOOD AND BEVERAGE ASSOCIATE Office Visit [facility] [address] [phone] Jesus Harmon MD [address] [place] [address] 12/17/2024 12:45 PM FOOD AND BEVERAGE ASSOCIATE Appointment [facility] [place] [address] [place] [phone] Jesus Harmon MD [address] [place] [address] 12/17/2024 1:15 PM FOOD AND BEVERAGE ASSOCIATE Office Visit [facility] [place] [address] [place] [phone] Jesus Harmon MD [address] [place] [address] 12/17/2024 1:30 PM FOOD AND BEVERAGE ASSOCIATE Office Visit [facility] [place] [address] [place] [address] Jesus Harmon MD [address] [place] [address] 12/19/2024 9:30 AM FOOD AND BEVERAGE ASSOCIATE Appointment [facility] [address] [facility] [address] [place] [phone] Nicole Núñez MD [address] [place] [phone] Flower Amato MD [address] [address] 12/19/2024 10:00 AM FOOD AND BEVERAGE ASSOCIATE Office Visit [facility] [address] [facility] [address] [place] [phone] Nicole Núñez MD [address] [place] [phone] Flower Amato MD [address] [address] 12/21/2024 11:45 AM FOOD AND BEVERAGE ASSOCIATE Appointment [facility] [place] [address] [address] [facility] [address] [place] [phone] Jesus Harmon MD [address] [place] [address] Karin Esteban MD [address] [place], [place] [address] [address] [address] 12/21/2024 12:15 PM FOOD AND BEVERAGE ASSOCIATE Office Visit [facility] [place] [address] [address] [facility] [address] [place] [phone] Jesus Harmon MD [address] [place] [address] Karin Esteban MD [address] [facility] [address] [address] [address] 12/24/2024 11:00 AM FOOD AND BEVERAGE ASSOCIATE Appointment [facility] [place] [address] [place] [address] Jesus Harmon MD [address] [place] [address] 12/24/2024 11:30 AM FOOD AND BEVERAGE ASSOCIATE Office Visit [facility] [place] [address] [place] [address] Jesus Harmon MD [address] [place], [place] [address] 12/24/2024 11:45 AM FOOD AND BEVERAGE ASSOCIATE Office Visit [facility] [place] [address] [facility] [place] [address] Jesus Harmon MD [address] [place] [address] 12/26/2024 10:15 AM FOOD AND BEVERAGE ASSOCIATE Appointment [facility] [place] [address] [address] [facility] [address] [place] [phone] Jesus Harmon MD [address] [place] [address] 12/26/2024 10:45 AM FOOD AND BEVERAGE ASSOCIATE Office Visit [facility] [place] [address] [address] [facility] [address] [place] [phone] Jesus Harmon MD [address] [place] [address] 12/28/2024 10:15 AM FOOD AND BEVERAGE ASSOCIATE Appointment [facility] [place] [address] [address] [facility] [address] [place] [phone] Diane Lopez MD [address] [place] [address] [place] [address] 12/28/2024 10:45 AM FOOD AND BEVERAGE ASSOCIATE Office Visit [facility] [place] [address] [address] [facility] [address] [place] [phone] Diane Lopez MD [address] [place] [address] [place] [address] 01/11/2025 10:15 AM CDT Appointment [facility] [place] [address] [address] [facility] [address] [place] [phone] Diane Lopez MD [address] [place] [address] [place] [address] 01/11/2025 10:45 AM CDT Office Visit [facility] [place] [address] [place] [phone] Diane Lopez MD [address] [place] [address] [place] [address] documented as of this encounter Visit Diagnoses Not on filedocumented in this encounter Care Teams Power System Engineer Relationship Specialty Start Date End Date No Ref-Primary, Physician PCP - General 12/04/21 Flower Amato MD [address] [place] [address] [place] [address] Assigned OBGYN Provider 11/22/24 documented as of this encounter
--- OUTSIDE RECORDS SUMMARY | 2024-12-07 20:23 | XMS_ITS | Encounter Summary ---
Author Organization [facility] Address [address] [place] [address] Care Team Providers Care Shade Maker Name Role Phone No Ref-Primary, Physician Primary Care Provider Flower Amato MD Unavailable [phone] Reason for Referral * Diagnostic Imaging Ultrasound (Routine) - Pending Review Specialty Diagnoses / Procedures Referred By Contac t Referred To Contact Radiology. Diagnoses Monochorionic diamniotic twin gestation Procedures MFM Twins US Comprehensive F/U Diane Lopez MD [address] [address] [address] Phone: tel: fax: Referral ID Status Reason Start Date Expiration Date V isits Requested Visits Authorized [id number] Pending Review 10/19/2024 10/19/2025 1 1 OGIST Reason for Visit * Diagnostic Imaging Ultrasound (Routine) - Pending Review Specialty Diagnoses / Procedures Referred By Noa lilly Referred To Contact Radiology. Diagnoses Monochorionic diamniotic twin gestation Procedures MFM Twins US Comprehensive F/U Diane Lopez MD [address] [place] [address] Phone: tel: fax: Referral ID Status Reason Start Date Expiration Date V isits Requested Visits Authorized [id number] Pending Review 10/19/2024 10/19/2025 1 1 Encounter Details Date Type Department Care Team (Latest Contact Info) Description 11/30/2024 1:31 PM BIOLOGIST - 11/30/2024 11:59 PM BIOLOGIST Hospital Encounter [facility] [place] [address] [place] [phone] Nicole Núñez MD [address] [place], [place] [address] Monochorionic diamniotic twin gestation in second trimester [...] on file Legal Sex Female 11:44 PM BIOLOGIST Gender Identity Not on file Sexual Orientation [...] st Contact Info) Description 12/10/2024 1:30 PM BIOLOGIST Appointment [facility] [address] [place] [address] Jesus Harmon MD [address] [place] [address] 12/10/2024 2:00 PM BIOLOGIST Office Visit [facility] [address] [facility] [place] [address] Jesus Harmon MD [address] [place] [address] 12/10/2024 2:15 PM BIOLOGIST Office Visit [facility] [address] [place] [address] Jesus Harmon MD [address] [place] [address] 12/12/2024 8:45 AM BIOLOGIST Appointment [facility] [address] [place] [phone] Diane Lopez MD [address] [address] 12/12/2024 9:15 AM BIOLOGIST Office Visit [facility] [address] [place] [address] Diane Lopez MD [address] [facility] [address] 12/14/2024 1:30 PM BIOLOGIST Ancillary Procedure [facility] Maternal Medicine [address] [phone] Jesus Harmon MD [address] [place] [address] 12/14/2024 2:00 PM BIOLOGIST Office Visit [facility] Maternal Medicine [address] [phone] Jesus Harmon MD [address] [place] [address] 12/17/2024 12:45 PM BIOLOGIST Appointment [facility] [address] [place] [address] Jesus Harmon MD [address] [place] [address] 12/17/2024 1:15 PM BIOLOGIST Office Visit [facility] [place] [address] [place] [address] Jesus Harmon MD [address] [place] [address] 12/17/2024 1:30 PM BIOLOGIST Office Visit [facility] [place] [address] [place] [address] Jesus Harmon MD [address] [place] [address] 12/19/2024 9:30 AM BIOLOGIST Appointment [facility] [address] [facility] [address] [place] [address] Nicole Núñez MD [address] [place] [address] Flower Amato MD [address] [address] 12/19/2024 10:00 AM BIOLOGIST Office Visit [facility] [address] [place] [address] Nicole Núñez MD [address] [place] [address] Flower Amato MD [address] [address] 12/21/2024 11:45 AM BIOLOGIST Appointment [facility] M[facility] Medicine [place] [address] [facility] [address] [place] [address] Jesus Harmon MD [address] [place], [place] [address] Karin Esteban MD [address] [address] [facility] [address] [address] 12/21/2024 12:15 PM BIOLOGIST Office Visit [facility] [address] [facility] [address] [place] [address] Jesus Harmon MD [address] [place], [place] [address] Karin Esteban MD [address] [facility] [address] 12/24/2024 11:00 AM BIOLOGIST Appointment [facility] [address] [facility] [place] [address] Jesus Harmon MD [address] [place] [address] 12/24/2024 11:30 AM BIOLOGIST Office Visit [facility] [place] [address] [place] [address] Jesus Harmon MD [address] [place] [address] 12/24/2024 11:45 AM BIOLOGIST Office Visit [facility] [address] [place] [address] Jesus Harmon MD [address] [place] [address] 12/26/2024 10:15 AM BIOLOGIST Appointment [facility] [address] [place] [phone] Jesus Harmon MD [address] [place] [address] 12/26/2024 10:45 AM BIOLOGIST Office Visit [facility] [address] [place] [phone] Jesus Harmon MD [address] [place] [address] 12/28/2024 10:15 AM BIOLOGIST Appointment [facility] [address] [place] [phone] Diane Lopez MD [address] [address] 12/28/2024 10:45 AM BIOLOGIST Office Visit [facility] [address] [place] [phone] Diane Lopez MD [address] [place], [place] [address] 01/11/2025 10:15 AM CDT Appointment [facility] [address] [place] [phone] Diane Lopez MD [address] [place], [place] [address] 01/11/2025 10:45 AM CDT Office Visit [facility] [address] [place] [phone] Diane Lopez MD [address] [place], [place] [phone] documented as of this encounter Procedures Procedure Name Priority Date/Time Associated Diagnosis Comments MFM TWINS US COMPREHENSIVE F/U Routine 11/30/2024 3:11 PM BIOLOGIST Monochorionic diamniotic twin gestation in second trimester documented in this encounter Results * MFM Twins US Comprehensive F/U (11/30/2024 3:11 PM BIOLOGIST) Anatomical Region Laterality Modality Ultrasound 11/30/2024 2:04 PM BIOLOGIST Impressions 11/30/2024 8:09 PM BIOLOGIST IMPRESSION ----- Monochorionic diamniotic twin gestation at [...] wave and reversal. Narrative 11/30/2024 8:09 PM [facility] Surveillance US ----- Pat. Name: HEATHER CHÁVEZ Study Date: 11/30/2024 2:04pm Pat. NO: [id number] Referring MD: PAMELA CUELLAR Site: Site Director: Kenyetta Lyons RDMS : 1995 Age: [...] options at this time including referral to [facility] for consideration of laser procedure [...] discussed likely plan for delivery at the [facility]. Return to primary provider for continued care. If you have questions regarding today's evaluation or if we can be of further service, please contact the Maternal- Medicine Center. anomalies may be present but not detected I spent a total of 15 minutes (excluding the ultrasound interpretation) on the date of this encounter including preparing to see the patient (reviewing medical records/tests), in direct mbmv-pd-lmla contact with the patient counseling and discussing the plan of care, documenting the visit in the electronic medical record, and communicating with other health school child care attendant and/or care coordination. Procedure Note Nicole Núñez MD - 11/30/2024 Surveillance US ----- Pat. Name: HEATHER CHÁVEZ Study Date: 11/30/2024 2:04pm Pat. NO: [id number] Referring : PAMELA CUELLAR Site: Site Director: Kenyetta Lyons RDMS : 1995 Age: [...] options at this time including referral to [facility] for consideration oflaser procedure to [...] increasing surveillance vs. hospital admissionin shared decision [email or web address]. We also discussed likely plan for delivery [facility]. Return to primary provider for continued care. If you have questions regarding today's evaluation or if we can be offurther service, please contact the Maternal- Medicine Center. anomalies may be present but not detected I spent a total of 15 minutes (excluding the ultrasound interpretation) onthe date of this encounter including preparing to see the patient(reviewing medical records/tests), in direct yjyl-wi-efpg contact with the patient counseling and discussingthe plan of care, documenting the visit in the electronic medical record,and communicating with other health school child care attendant and/or care coordination. IMPRESSION ----- Monochorionic diamniotic [...] abnormal; intermittent depressed A waveand reversal. us Diane Lopez MD [facility] ORDERABLES Edited Result - Final documented in [...] antepartum documented in this encounter Care Teams Shade Maker Relationship Specialty Start Date End Date No Ref-Primary, Physician PCP - General 12/04/21 Flower Amato MD [address] [address] Assigned OBGYN Provider 11/22/24 documented as of this encounter
--- OUTSIDE RECORDS SUMMARY | 2024-12-07 20:23 | XMS_ITS | Encounter Summary ---
Author Organization [facility] Address [address] [place] [address] Care Team Providers Care Photography Teacher Name Role Phone No Ref-Primary, Physician Primary Care Provider Flower Amato MD Unavailable [phone] Reason for Referral * CV Testing (Routine) - Closed Specialty Diagnoses / Procedures Referred By Contac t Referred To Contact Cardiology Diagnoses Monochorionic diamniotic twin gestation Procedures Echo (TTE) Complete Yobani Lopez MD [address] [place] [address] Phone: tel: fax: [facility] [address] [address] Phone: tel: Referral ID Status Reason Start Date Expiration Date Visits Re quested Visits Authorized [id number] Closed 10/19/2024 10/19/2025 1 1 E OBGYN Reason for Visit * CV Testing (Routine) - Closed Specialty Diagnoses / Procedures Referred By Contac t Referred To Contact Cardiology Diagnoses Monochorionic diamniotic twin gestation Procedures Echo (TTE) Yobani Olivares MD [address] [place] [address] Phone: tel: fax: [facility] [address] [place] [address] Phone: tel: Referral ID Status Reason Start Date Expiration Date Visits Re quested Visits Authorized [id number] Closed 10/19/2024 10/19/2025 1 1 Encounter Details Date Type Department Care Team (Latest Contact Info) Description 11/30/2024 12:25 PM NURSE OBGYN - 11/30/2024 1:30 PM NURSE OBGYN Hospital Encounter [facility] [address] [place] [phone] Yobani Lopez MD [address] [place] [address] [address] [place] [address] Monochorionic diamniotic twin gestation in [...] on file Legal Sex Female 11:44 PM NURSE OBGYN Gender Identity Not on file Sexual Orientation [...] st Contact Info) Description 12/10/2024 1:30 PM NURSE OBGYN Appointment [facility] Maternal Medicine [facility] [address] [place] [phone] Jesus Harmon MD [address] [place] [address] 12/10/2024 2:00 PM NURSE OBGYN Office Visit [facility] Maternal Medicine [facility] [address] [place] [address] Jesus Harmon MD [address] [place] [address] 12/10/2024 2:15 PM NURSE OBGYN Office Visit [facility] Maternal Medicine [facility] [address] [facility] [address] Jesus Harmon MD [address] [place] [address] 12/12/2024 8:45 AM NURSE OBGYN Appointment [facility] Maternal Medicine [facility] [address] [facility] [address] [place] [phone] Yobani Lopez MD [address] [facility] [address] [place] [address] 12/12/2024 9:15 AM NURSE OBGYN Office Visit [facility] Maternal Medicine [facility] [address] [facility] [address] [place] [address] Yobani Lopez MD [address] [place] [address] 12/14/2024 1:30 PM NURSE OBGYN Ancillary Procedure [facility] Maternal Medicine [address] [place] [address] Jesus Harmon MD [address] [place] [address] 12/14/2024 2:00 PM NURSE OBGYN Office Visit [facility] Maternal Medicine [address] [address] Jesus Harmon MD [address] [place] [address] 12/17/2024 12:45 PM NURSE OBGYN Appointment [facility] Maternal Medicine [facility] [address] [place] [address] Jesus Harmon MD [address] [place] [address] 12/17/2024 1:15 PM NURSE OBGYN Office Visit [facility] [place] [address] [place] [address] Jesus Harmon MD [address] [place] [address] 12/17/2024 1:30 PM NURSE OBGYN Office Visit [facility] [place] [address] [place] [address] Jesus Harmon MD [address] [place] [address] 12/19/2024 9:30 AM NURSE OBGYN Appointment [facility] Medicine [place] [address] [facility] [address] [place] [phone] Nicole Núñez MD [address] [place] [address] Flower Amato MD [address] [address] 12/19/2024 10:00 AM NURSE OBGYN Office Visit [facility] Maternal Medicine [place] [address] [facility] [address] [place] [phone] Nicole Núñez MD [address] [facility] [place] [address] Flower Amato MD [address] [address] 12/21/2024 11:45 AM NURSE OBGYN Appointment [facility] Maternal Medicine [place] [address] [facility] [address] [place] [phone] Jesus Harmon MD [address] [place] [address] Karin Esteban MD [address] [address] 12/21/2024 12:15 PM NURSE OBGYN Office Visit [facility] Maternal Medicine [place] [address] [facility] [address] [place] [phone] Jesus Harmon MD [address] [place] [address] Karin Esteban MD [address] [address] 12/24/2024 11:00 AM NURSE OBGYN Appointment [facility] [place] [address] [place] [address] Jesus Harmon MD [address] [place] [address] 12/24/2024 11:30 AM NURSE OBGYN Office Visit [facility] [place] [address] [place] [address] Jesus Harmon MD [address] [place] [address] 12/24/2024 11:45 AM NURSE OBGYN Office Visit [facility] [place] [address] [place] [address] Jesus Harmon MD [address] [place], [place] [address] 12/26/2024 10:15 AM NURSE OBGYN Appointment [facility] Maternal Medicine [place] [address] [place] [phone] Jesus Harmon MD [address] [place] [address] 12/26/2024 10:45 AM NURSE OBGYN Office Visit [facility] Maternal Medicine [facility] [address] [place] [phone] Jesus Harmon MD [address] [place] [address] 12/28/2024 10:15 AM NURSE OBGYN Appointment [facility] Maternal Medicine [facility] [address] [place] [phone] Yobani Lopez MD [address] [place] [address] 12/28/2024 10:45 AM NURSE OBGYN Office Visit [facility] Medicine [place] [address] [facility] [address] [place] [phone] Yobani Lopez MD [address] [place] [address] 01/11/2025 10:15 AM CDT Appointment [facility] Medicine [place] [address] [facility] [address] [place] [phone] Yobani Lopez MD [address] [place] [address] 01/11/2025 10:45 AM CDT Office Visit [facility] Medicine [place] [address] [facility] [address] [place] [phone] Yobani Lopez MD [address] [place] [address] documented as of this encounter Procedures Procedure Name Priority Date/Time Associated Diagnosis Comments ECHO COMPLETE Routine 11/30/2024 1 :46 PM NURSE OBGYN 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 [address] Echocardiogram Name: HEATHER CHÁVEZ Study Date: 11/30/2024 01:42 PM Patient Location: [facility] Gender: Female Patient Class: Outpatient : [id number] Age: 29 yrs Ordering Provider: YOBANI LOPEZ Referring Provider: YOBANI LOPEZ Performed By: Daphney Dao RDCS Reading Physician: Luc Dominguez MD Reason For Study: Monochorionic diamniotic twin gestation in second trimester Data: Number of fetuses: This is a twin gestation. Due date: 04/07/2025. Gestational age: 21w5d. Delivery at: [facility]. Specific Indication: echocardiogram performed for monochorionic diamniotic [...] to the left atrium. There is laminar mbmin-rw-qvsx shunting across the foramen ovale. Atrioventricular valves: [...] Procedure Note Luc Dominguez MD - 11/30/2024 [id number] Study ID:[id number] [facility] [address] [address] Echocardiogram Name: HEATHER CHÁVEZ Study Date: 11/30/2024 01:42 PM Patient Location: [facility] Gender: Female Patient Class:Outpatient : [id number] Age: 29 yrs Ordering Provider: YOBANI LOPEZ Referring Provider: YOBANI LOPEZ Performed By: Daphney Dao RDCS Reading Physician: Luc Dominguez MD Reason For Study: Monochorionic diamniotic twin gestation in secondtrimester Data: Number of fetuses: This is a twin gestation. Due date: 04/07/2025. Gestational age: 21w5d. Delivery at: [facility]. Specific Indication: echocardiogram performed formonochorionic diamniotic twins. [...] breech position. The fetus is located [facility]. The heart is in left chest. [...] in to the left atrium. There is zymwlurlqayh-mb-eryh shunting across the foramen ovale. Atrioventricular valves: [...] antepartum documented in this encounter Care Teams Photography Teacher Relationship Specialty Start Date End Date No Ref-Primary, Physician PCP - General 12/04/21 Flower Amato MD [address] [place] [address] Assigned OBGYN Provider 11/22/24 documented as of this encounter
--- OUTSIDE RECORDS SUMMARY | 2024-12-07 20:23 | XMS_ITS | Encounter Summary ---
Author Organization [facility] Address [address] [facility] [place] [address] Care Team Providers Care Screening Unit Registered Nurse Name Role Phone No Ref-Primary, Physician Primary Care Provider Flower Amato MD Unavailable [phone] Reason for Referral * Consultation (Routine: Next available opening) - Pending Review Specialty Diagnoses / Procedures Referred By Noa lilly Referred To Contact Diagnoses Monochorionic diamniotic twin , antepartum Jesus Harmon MD [address] [place] [address] Phone: tel: fax: Referral ID Status Reason Start Date Expiration Date V isits Requested Visits Authorized [id number] Pending Review 12/05/2024 12/05/2025 1 1 Question Answer Office Visit Type: OB Visit - First ORK CONTRACT MANAGER Encounter Details Date Type Department Care Team (Late st Contact Info) Description 12/05/2024 Orders Only [facility] [place] [address] [place], [place] [address] [place], [place] [address] Joceline Bejarano RN Monochorionic diamniotic twin , antepartum (Primary Dx) Social History Tobacco Use Types Packs/Day Years [...] on file Legal Sex Female 11:44 PM NETWORK CONTRACT MANAGER Gender Identity Not on file Sexual Orientation Not on file documented as of this encounter Plan of Treatment Upcoming Encounters Date Type Department Care Team (Late st Contact Info) Description 12/10/2024 1:30 PM NETWORK CONTRACT MANAGER Appointment [facility] [place] [address] [place] [address] Jesus Harmon MD [address] [place], [place] [address] 12/10/2024 2:00 PM NETWORK CONTRACT MANAGER Office Visit [facility] [address] [place] [address] Jesus Harmon MD [address] [place] [address] 12/10/2024 2:15 PM NETWORK CONTRACT MANAGER Office Visit [facility] [place] [address] [place] [address] Jesus Harmon MD [address] [place] [address] 12/12/2024 8:45 AM NETWORK CONTRACT MANAGER Appointment [facility] [address] [place] [phone] Diane Lopez MD [address] [address] 12/12/2024 9:15 AM NETWORK CONTRACT MANAGER Office Visit [facility] [address] [place] [phone] Diane Lopez MD [address] [facility] [address] [place] [address] 12/14/2024 1:30 PM NETWORK CONTRACT MANAGER Ancillary Procedure [facility] [address] [place] [address] Jesus Harmon MD [address] [place] [address] 12/14/2024 2:00 PM NETWORK CONTRACT MANAGER Office Visit [facility] [address] [phone] Jesus Harmon MD [address] [place] [address] 12/17/2024 12:45 PM NETWORK CONTRACT MANAGER Appointment [facility] [address] [place] [address] Jesus Harmon MD [address] [place] [address] 12/17/2024 1:15 PM NETWORK CONTRACT MANAGER Office Visit [facility] [place] [address] [place] [address] Jesus Harmon MD [address] [place] [address] 12/17/2024 1:30 PM NETWORK CONTRACT MANAGER Office Visit [facility] [place] [address] [place] [address] Jesus Harmon MD [address] [place] [address] 12/19/2024 9:30 AM NETWORK CONTRACT MANAGER Appointment [facility] [address] [facility] [address] [place] [address] Nicole Núñez MD [address] [place] [address] Flower Amato MD [address] [address] 12/19/2024 10:00 AM NETWORK CONTRACT MANAGER Office Visit [facility] [address] [place] [address] Nicole Núñez MD [address] [place] [address] Flower Amato MD [address] [address] 12/21/2024 11:45 AM NETWORK CONTRACT MANAGER Appointment [facility] [address] [place] [address] Jesus Harmon MD [address] [place], [place] [address] Karin Esteban MD [address] [address] [address] 12/21/2024 12:15 PM NETWORK CONTRACT MANAGER Office Visit [facility] [address] [place] [address] Jesus Harmon MD [address] [place], [place] [address] Karin Esteban MD [address] [facility] [address] 12/24/2024 11:00 AM NETWORK CONTRACT MANAGER Appointment [facility] [place] [address] [place] [address] Jesus Harmon MD [address] [place] [address] 12/24/2024 11:30 AM NETWORK CONTRACT MANAGER Office Visit [facility] [place] [address] [place] [address] Jesus Harmon MD [address] [place] [address] 12/24/2024 11:45 AM NETWORK CONTRACT MANAGER Office Visit [facility] [place] [address] [place] [address] Jesus Harmon MD [address] [place] [address] 12/26/2024 10:15 AM NETWORK CONTRACT MANAGER Appointment [facility] [address] [place] [phone] Jesus Harmon MD [address] [place] [address] 12/26/2024 10:45 AM NETWORK CONTRACT MANAGER Office Visit [facility] [address] [place] [phone] Jesus Harmon MD [address] [place] [address] 12/28/2024 10:15 AM NETWORK CONTRACT MANAGER Appointment [facility] [address] [place] [phone] Diane Lopez MD [address] [address] 12/28/2024 10:45 AM NETWORK CONTRACT MANAGER Office Visit [facility] [address] [place] [address] Diane Lopez MD [address] [place] [address] [place] [address] 01/11/2025 10:15 AM CDT Appointment [facility] [address] [place] [address] Diane Lopez MD [address] [place] [address] [place], [place] [address] 01/11/2025 10:45 AM CDT Office Visit [facility] [address] [place] [phone] Diane Lopez MD [address] [address] [place], [place] [phone] Scheduled Referrals Name Type Priority Associated Diagnoses Orde r Schedule M Office Visit - OB Visit - First Referral Routine: Next available opening Monochorionic diamniotic twin , antepartum Expected: 12/10/2024 (Approximate), Expires: 12/05/2025 documented as of this encounter Visit Diagnoses Diagnosis Monochorionic diamniotic twin , antepartum- Primary Twin , antepartum Monochorionic diamniotic twin , [...] antepartum documented in this encounter Care Teams Screening Unit Registered Nurse Relationship Specialty Start Date End Date No Ref-Primary, Physician PCP - General 12/04/21 Flower Amato MD [address] [place] [address] Assigned OBGYN Provider 11/22/24 documented as of this encounter
--- OUTSIDE RECORDS SUMMARY | 2024-12-07 20:23 | XMS_ITS | Encounter Summary ---
Author Organization [facility] Address [address] [place] [address] Care Team Providers Care Circular Shear Operator Name Role Phone No Ref-Primary, Physician Primary Care Provider Flower Amato MD Unavailable Encounter Details Date Type Department Care Team [...] on file Legal Sex Female 11:44 PM PLUMBER ASSISTANT Gender Identity Not on file Sexual Orientation Not on file documented as of this encounter Plan of Treatment Upcoming Encounters Date Type Department Care Team (Late st Contact Info) Description 12/10/2024 1:30 PM PLUMBER ASSISTANT Appointment [facility] [place] [address] [place] [phone] Jesus Harmon MD [address] [place] [address] 12/10/2024 2:00 PM PLUMBER ASSISTANT Office Visit [facility] [address] [place] [address] Jesus Harmon MD [address] [place] [address] 12/10/2024 2:15 PM PLUMBER ASSISTANT Office Visit [facility] [address] [place] [address] Jesus Harmon MD [address] [place] [address] 12/12/2024 8:45 AM PLUMBER ASSISTANT Appointment [facility] [address] [place] [address] Diane Lopez MD [address] [address] 12/12/2024 9:15 AM PLUMBER ASSISTANT Office Visit [facility] [address] [place] [address] Diane Lopez MD [address] [address] 12/14/2024 1:30 PM PLUMBER ASSISTANT Ancillary Procedure [facility] [address] [place] [phone] Jesus Harmon MD [address] [place] [address] 12/14/2024 2:00 PM PLUMBER ASSISTANT Office Visit [facility] [address] [address] Jesus Harmon MD [address] [place] [address] 12/17/2024 12:45 PM PLUMBER ASSISTANT Appointment [facility] [place] [address] [place] [phone] Jesus Harmon MD [address] [place] [address] 12/17/2024 1:15 PM PLUMBER ASSISTANT Office Visit [facility] [place] [address] [place] [address] Jesus Harmon MD [address] [place] [address] 12/17/2024 1:30 PM PLUMBER ASSISTANT Office Visit [facility] [place] [address] [place] [address] Jesus Harmon MD [address] [place] [address] 12/19/2024 9:30 AM PLUMBER ASSISTANT Appointment [facility] [address] [facility] [address] [place] [phone] Nicole Núñez MD [address] [place] [phone] Flower Amato MD [address] [facility] [address] [address] 12/19/2024 10:00 AM PLUMBER ASSISTANT Office Visit [facility] [address] [facility] [address] [place] [phone] Nicole Núñez MD [address] [place] [address] Flower Amato MD [address] [address] 12/21/2024 11:45 AM PLUMBER ASSISTANT Appointment [facility] [place] [address] [facility] [address] [place] [phone] Jesus Harmon MD [address] [place] [address] Karin Esteban MD [address] [place], [place] [address] [address] [address] 12/21/2024 12:15 PM PLUMBER ASSISTANT Office Visit [facility] [place] [address] [facility] [address] [place] [phone] Jesus Harmon MD [address] [place] [address] Karin Esteban MD [address] [facility] [address] [address] 12/24/2024 11:00 AM PLUMBER ASSISTANT Appointment [facility] [place] [address] [place] [address] Jesus Harmon MD [address] [place] [address] 12/24/2024 11:30 AM PLUMBER ASSISTANT Office Visit [facility] [place] [address] [place] [address] Jesus Harmon MD [address] [place], [place] [address] 12/24/2024 11:45 AM PLUMBER ASSISTANT Office Visit [facility] [place] [address] [facility] [place] [address] Jesus Harmon MD [address] [place] [address] 12/26/2024 10:15 AM PLUMBER ASSISTANT Appointment [facility] [place] [address] [facility] [address] [place] [phone] Jesus Harmon MD [address] [place] [address] 12/26/2024 10:45 AM PLUMBER ASSISTANT Office Visit [facility] [place] [address] [facility] [address] [place] [phone] Jesus Harmon MD [address] [place] [address] 12/28/2024 10:15 AM PLUMBER ASSISTANT Appointment [facility] [place] [address] [facility] [address] [place] [phone] Diane Lopez MD [address] [place] [address] 12/28/2024 10:45 AM PLUMBER ASSISTANT Office Visit [facility] [place] [address] [facility] [address] [place] [phone] Diane Lopez MD [address] [place] [address] 01/11/2025 10:15 AM CDT Appointment [facility] [place] [address] [facility] [address] [place] [phone] Diane Lopez MD [address] [place] [address] 01/11/2025 10:45 AM CDT Office Visit [facility] [place] [address] [place] [phone] Diane Lopez MD [address] [place] [address] documented as of this encounter Visit Diagnoses Not on filedocumented in this encounter Care Teams Circular Shear Operator Relationship Specialty Start Date End Date No Ref-Primary, Physician PCP - General 12/04/21 Flower Amato MD [address] [place] [address] Assigned OBGYN Provider 11/22/24 documented as of this encounter
--- OUTSIDE RECORDS SUMMARY | 2024-12-07 20:23 | XMS_ITS | Encounter Summary ---
Author Organization [facility] Address [address] [place] [address] Care Team Providers Care Telephone Switchboard Operator Name Role Phone No Ref-Primary, Physician Primary Care Provider Flower Amato MD Unavailable [phone] Reason for Referral * Diagnostic Imaging Ultrasound (Routine) - Pending Review Specialty Diagnoses / Procedures Referred By Noa lilly Referred To Contact Radiology. 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 Procedures MFM Twins Comprehensive F/U Nicole Byrd MD [address] [place] [address] Phone: tel: fax: Referral ID Status Reason Start Date Expiration Date V isits Requested Visits Authorized [id number] Pending Review 11/30/2024 11/30/2025 1 1 RNED GOODS INSPECTOR Reason for Visit * Reason Comments Ultrasound RL2/UAR/MCA-mono/di twins, fetus 2 with FGR Encounter Details Date Type Department Care Team (Latest Contact Info) Description 11/30/2024 2:45 PM RETURNED GOODS INSPECTOR Office Visit [facility] [place] [address] [place] [address] Nicole Byrd MD [address] [place] [address] Monochorionic diamniotic twin gestation in [...] on file Legal Sex Female 11:44 PM RETURNED GOODS INSPECTOR Gender Identity Not on file Sexual Orientation Not on file documented as of this encounter Progress Notes * Nicole Byrd MD - 11/30/2024 2:45 PM CST The patient was seen for an ultrasound in the [facility] today. For a detailed report of the ultrasound examination, please see the ultrasound report which can be found under the imaging tab. If you have questions regarding today's evaluation or if we can be of further service, please contact the [facility] Center. Nicole Byrd MD Sr Account Executive, PROCESS CONTROL OPERATOR Maternal- Medicine RNED GOODS INSPECTOR documented in this encounter Nursing Notes * Rivka Jones RN - 11/30/2024 2:45 PM CST Patient reports positive movement x 2, denies pain, leaking of fluid, or bleeding. Education provided to patient on today's ultrasound. SBAR given to BLAN[facility] MEDINA, see their note in Epic. RNED GOODS INSPECTOR documented in this encounter Plan of Treatment Upcoming Encounters Date Type Department Care Team (Late st Contact Info) Description 12/10/2024 1:30 PM RETURNED GOODS INSPECTOR Appointment [facility] [address] [phone] Jesus Harmon MD [address] [place] [address] 12/10/2024 2:00 PM RETURNED GOODS INSPECTOR Office Visit [facility] Maternal Medicine [facility] [address] [place] [address] Jesus Harmon MD [address] [place] [address] 12/10/2024 2:15 PM RETURNED GOODS INSPECTOR Office Visit [facility] [place] [address] [place] [address] Jesus Harmon MD [address] [place] [address] 12/12/2024 8:45 AM RETURNED GOODS INSPECTOR Appointment [facility] Maternal Medicine [facility] [address] [place] [phone] Diane Lopez MD [address] [address] 12/12/2024 9:15 AM RETURNED GOODS INSPECTOR Office Visit [facility] Maternal Medicine [facility] [address] [place] [phone] Diane Lopez MD [address] [facility] [address] [address] 12/14/2024 1:30 PM RETURNED GOODS INSPECTOR Ancillary Procedure [facility] M[facility] Medicine [address] [phone] Jesus Harmon MD [address] [place] [address] 12/14/2024 2:00 PM RETURNED GOODS INSPECTOR Office Visit [facility] M[facility] Medicine [address] [place] [phone] Jesus Harmon MD [address] [place] [address] 12/17/2024 12:45 PM RETURNED GOODS INSPECTOR Appointment [facility] [place] [address] [place] [address] Jesus Harmon MD [address] [place] [address] 12/17/2024 1:15 PM RETURNED GOODS INSPECTOR Office Visit [facility] Maternal Medicine [facility] [address] [place] [address] Jesus Harmon MD [address] [place] [address] 12/17/2024 1:30 PM RETURNED GOODS INSPECTOR Office Visit [facility] Maternal Medicine [facility] [address] [place] [address] Jesus Harmon MD [address] [place] [address] 12/19/2024 9:30 AM RETURNED GOODS INSPECTOR Appointment [facility] M[facility] [address] [facility] [address] [place] [phone] Nicole Byrd MD [address] [place] [address] Flower Amato MD [address] [facility] [address] [place] [address] 12/19/2024 10:00 AM RETURNED GOODS INSPECTOR Office Visit [facility] M[facility] Medicine [facility] [address] [facility] [address] [place] [phone] Nicole Byrd MD [address] [place] [address] Flower Amato MD [address] [facility] [address] [facility] [address] [address] 12/21/2024 11:45 AM RETURNED GOODS INSPECTOR Appointment [facility] Maternal Medicine [place] [address] [facility] [address] [place] [phone] Jesus Harmon MD [address] [place] [address] Karin Esteban MD [address] [facility] [address] [facility] [address] [address] 12/21/2024 12:15 PM RETURNED GOODS INSPECTOR Office Visit [facility] M[facility] Medicine [place] [address] [facility] [address] [place] [phone] Jesus Harmon MD [address] [place] [address] Karin Esteban MD [address] [place] [address] 12/24/2024 11:00 AM RETURNED GOODS INSPECTOR Appointment [facility] Maternal Medicine [facility] [address] [place] [phone] Jesus Harmon MD [address] [place] [address] 12/24/2024 11:30 AM RETURNED GOODS INSPECTOR Office Visit [facility] [place] [address] [place] [address] Jesus Harmon MD [address] [place] [address] 12/24/2024 11:45 AM RETURNED GOODS INSPECTOR Office Visit [facility] Maternal Medicine [facility] [address] [place] [address] Jesus Harmon MD [address] [place] [address] 12/26/2024 10:15 AM RETURNED GOODS INSPECTOR Appointment [facility] Maternal Medicine [place] [address] [place] [phone] Jesus Harmon MD [address] [place] [address] 12/26/2024 10:45 AM RETURNED GOODS INSPECTOR Office Visit [facility] Maternal Medicine [place] [address] [place] [phone] Jesus Harmon MD [address] [place] [address] 12/28/2024 10:15 AM RETURNED GOODS INSPECTOR Appointment [facility] Maternal Medicine [place] [address] [place] [phone] Diane Lopez MD [address] [address] 12/28/2024 10:45 AM RETURNED GOODS INSPECTOR Office Visit [facility] Maternal Medicine [place] [address] [place] [phone] Diane Lopez MD [address] [address] 01/11/2025 10:[address] [facility] Maternal Medicine [place] [address] [place] [phone] Diane Lopez MD [address] [place], [place] [address] 01/11/2025 10:45 AM CDT Office Visit [facility] Maternal Medicine [facility] [address] [place] [address] Diane Lopez MD [address] [place], [place] [address] documented as of this encounter Results * MFM Twins US Comprehensive F/U (12/03/2024 3:46 PM RETURNED GOODS INSPECTOR) Anatomical Region Laterality Modality Ultrasound 12/03/2024 2:24 PM RETURNED GOODS INSPECTOR Impressions 12/04/2024 8:53 AM RETURNED GOODS INSPECTOR IMPRESSION ----- Monochorionic diamniotic twin gestation at 22w 1d gestational age with selective growth restriction of twin 2. Fetus 1 1. None of the anomalies commonly detected by ultrasound were evident in the detailed anatomic survey described above. 2. Growth parameters and estimated weight were appropriate for gestational age. 3. The amniotic fluid volume was elevated consistent with mild polyhydramnios. A normal bladder was visualized. 4. The umbilical artery Doppler studies were within normal limits. 5. The middle cerebral artery Doppler studies were within normal limits. 6. The ductus venosus studies were within normal limits. Fetus 2 1. None of the anomalies commonly detected by ultrasound were evident in the detailed anatomic survey described above. 2. Growth parameters and estimated weight were consistent with severe growth restriction. The inter-twin discordance was 32.5 %. 3. The amniotic fluid volume appeared normal with MVP 6.0 cm. A normal bladder was visualized. 4. The umbilical artery Doppler studies were abnormal with persistent reversed end diastolic flow. 5. The middle cerebral artery Doppler studies were within normal limits. 6. The ductus venosus studies were abnormal with intermittent reversed a wave. Narrative 12/04/2024 8:53 AM RETURNED GOODS INSPECTOR Comp Follow Up ----- Pat. Name: DEANDRE CHÁVEZ Study Date: 12/03/2024 2:24pm Pat. NO: [id number] Referring MD: NICOLE BYRD Site: [employer] Operator: Piper Huynh RDMS : 1995 Age: 29 ----- INDICATION ----- Monochorionic-Diamniotic Twin Gestation Selective Growth Restriction (FGR) fetus 2 Circumvallate placenta METHOD ----- Transabdominal ultrasound examination. View: Sufficient ----- Twin . Number of fetuses: 2. Monochorionic-diamniotic Membrane Description: thin dividing membrane visualized between fetuses 1 and 2 DATING ----- Date Details Gest. age TOMMIE LMP 07/01/2024 22 w + 1 d 04/07/2025 Previous U/S 08/27/2024 GA, GA 7 w + 6 d 21 w + 6 d 04/09/2025 U/S Fetus 1 12/03/2024 based upon AC, BPD, Femur, HC 22 w + 3 d 04/05/2025 U/S Fetus 2 based upon AC, BPD, Femur, HC 20 w + 6 d 04/16/2025 Assigned dating based on the LMP, selected on 11/22/2024 22 w + 1 d 04/07/2025 Fetus 1: GENERAL EVALUATION ----- Cardiac activity present. FHR 153 bpm. movements: present. Presentation: breech, maternal left. Presenting. Placenta: Placental site: anterior, no previa, thin dividing membrane Umbilical cord: Cord vessels: 3 vessel cord. Insertion site: normal insertion Amniotic fluid: Amount of AF: Mild Polyhydramnios. MVP 9.1 cm Fetus 2: GENERAL EVALUATION ----- Cardiac activity present. FHR 165 bpm. movements: present. Presentation: breech, maternal right. Placenta: Placental site: anterior, no previa, thin dividing membrane Umbilical cord: Cord vessels: 3 vessel cord. Insertion site: normal insertion Amniotic fluid: Amount of AF: normal. MVP 6.0 cm Fetus 1: BIOMETRY ----- BPD 53.6 mm 22w 2d Hadlock OFD 68.9 mm 21w 3d Nicolaides HC 195.9 mm 21w 6d Hadlock Cerebellum tr 23.6 mm 21w 6d Nicolaides AC 189.6 mm 23w 5d 87% Hadlock Femur 36.3 mm 21w 4d Hadlock Weight Calculation: EFW 521 g 68% Hadlock EFW (lb,oz) 1 lb 2 oz EFW by Hadlock ([id number]) EFW discordance 32.5 % Head / Face / Neck Biometry: Regroover 7.2 mm CM 3.9 mm Thorax / Lungs Biometry: Thoracic circ 165.5 mm Thoracic area 21.7 cm ThC / AC 0.87 Heart / Great Vessels Biometry: Cardiac circ 97.0 mm Cardiac area 7.4 cm CC / ThC 0.59 CA / Shahab 0.34 Fetus 2: BIOMETRY ----- BPD 52.0 mm 21w 5d Hadlock OFD 65.8 mm 20w 5d Nicolaides HC 188.2 mm 21w 1d Hadlock Cerebellum tr 23.8 mm 21w 6d Nicolaides AC 154.7 mm 20w 5d 7% Hadlock Femur 31.6 mm 19w 6d Hadlock Weight Calculation: EFW 352 g 2% Hadlock EFW (lb,oz) 0 lb 12 oz EFW by Hadlock ([id number]) EFW discordance 32.5 % Head / Face / Neck Biometry: Regroover 6.3 mm Extremities / Bony Struc Biometry: Tibia 25.7 mm 1% Valadez Fibula 26.0 mm 3% Valadez Fetus 1: ANATOMY ----- The following structures appear normal: Head / Neck Cranium. Head size. Head shape. Lateral ventricles. Midline falx. Cavum septi pellucidi. Cerebellum. Cisterna magna. Thalami. Face Lips. Profile. Nose. Heart / Thorax 4-chamber view. RVOT view. LVOT view. [id number]-[id number] view. Diaphragm. Abdomen Stomach. Kidneys. Bladder. Spine Cervical spine. Thoracic spine. Lumbar spine. Sacral spine. sex: female. Fetus 2: ANATOMY ----- The following structures appear normal: Head / Neck Cranium. Head size. Head shape. Lateral ventricles. Midline falx. Cavum septi pellucidi. Cerebellum. Cisterna magna. Face Profile. Nose. Heart / Thorax Diaphragm. Abdomen Stomach. Kidneys. Bladder. Spine Cervical spine. Thoracic spine. Lumbar spine. Sacral spine. The following structures were documented previously: Face Lips. Heart / Thorax 4-chamber view. RVOT view. LVOT view. 0-fzxsdb-ujqbtmn view. sex: female. Fetus 1: TTTS ASSESSMENT ----- Cardiac activity: present Placental location: anterior, no previa, thin dividing membrane Placental cord insertion: normal insertion bladder: normal hydrops: No MVP: 9.1 cm MCA PSV: 32.5 cm/s MCA MoM: 1.16 UA PI: 1.44, 89% Ductus Venosus: normal Fetus 2: TTTS ASSESSMENT ----- Cardiac activity: present Placental location: anterior, no previa, thin dividing membrane Placental cord insertion: normal insertion bladder: normal hydrops: No MVP: 6 cm MCA PSV: 40.08 cm/s MCA MoM: 1.43 UA PI: reversed Ductus Venosus: abnormal Fetus 1: DOPPLER ----- Umbilical Artery: normal. Sampling site: midcord PI 1.44 89% Ramírez HR 148 bpm Mid Cerebral Artery: normal PS 32.50 cm/s PS 1.16 MoM Ductus Venosus: normal A-wave normal A wave Fetus 2: DOPPLER ----- Umbilical Artery: abnormal, Reversed End Diastolic Flow. Sampling site: midcord Mid Cerebral Artery: normal PS 40.08 cm/s PS 1.43 MoM Ductus Venosus: abnormal A-wave intermittent reversed end-diastolic flow MATERNAL STRUCTURES ----- Cervix Suboptimal Cervical length 35.9 mm Right Ovary Not examined Left Ovary Not examined RECOMMENDATION ----- Thank-you for referring your patient to assess for signs of TTTS/TAPS due to monochorionic twin . We reviewed that unfortunately there has been progression of the UA Doppler abnormality for twin 2 with respect to the UA Doppler. Previously there has been AEDF and today there is new persistent REDF. While these findings are still consistent with sFGR Type II, these findings, in conjunction with the findings of the ductus venosus, are concerning for stillbirth. We reviewed that an adverse outcome of twin 2 could negatively impact the outcome for twin 1, including neurologic injury or demise. Also reviewed that intervening on behalf of twin 2 could be at the expense of twin 1. Reviewed goals with Deandre and her and they desire to optimize outcomes for both babies. Reviewed that while they are at the periviable period, outcomes are still uncertain at this gestational age, even for twin 1. Given twin 2 is at 352g at 22 weeks, chances of intact survival is low. For twin 1 at 521g at 22 weeks, on average, survival is typically quoted about 50%. Given current findings on today's US, there are three options available: 1) continue expectant management in the hope that twin 2 reaches a gestational age and size in which outcomes are improved; 2) inpatient admission now with betamethasone and initiation of surveillance for both twins; 3) Intervention. In this context, reviewed case with Dr. Spangler at [facility] to discuss possible management options. He discussed that there are situations in which fetoscopic laser photocoagulation of the placenta could be offered to dichorionize the placenta with the intent of improving outcomes for both twins. However, he notes that in this setting, chances of this leading to a co-twin demise of twin 2 are rather high (60-70%). Deandre desires optimal outcomes for both babies and declines [facility] referral. After discussion regarding chances of survival of both twins at 22 weeks, they opted to continue expectant management at this time. They strongly desire NICU consultation and will do our best to arrange an outpatient consultation as soon as possible. Will initiate thrice weekly surveillance (without NST at this time) until they desire intervention. Return to primary provider for continued care. If you have questions regarding today's evaluation or if we can be of further service, please contact the [facility]. anomalies may be present but not detected I spent a total of 25 minutes (excluding the ultrasound interpretation) on the date of this encounter including preparing to see the patient (reviewing medical records/tests), in direct zkfo-qi-fagg contact with the patient during the visit counseling and discussing the plan of care and documenting the visit in the electronic medical record. Procedure Note Flor Dickson MD - 12/04/2024 Comp Follow Up ----- Pat. Name: DEANDRE CHÁVEZ Study Date: 12/03/2024 2:24pm Pat. NO: [id number] Referring MD: NICOLE BYRD Site: [employer] Operator: Piper Huynh RDMS : 1995 Age: 29 ----- INDICATION ----- Monochorionic-Diamniotic Twin Gestation Selective Growth Restriction (FGR) fetus 2 Circumvallate placenta METHOD ----- Transabdominal ultrasound examination. View: Sufficient ----- Twin . Number of fetuses: 2. Monochorionic-diamniotic Membrane Description: thin dividing membrane visualized between fetuses 1and 2 DATING ----- DateDetailsGest. age TOMMIE LMP w + 1 d 04/07/2025 Previous U/S 08/27/2024 GA, GA7 w + 6 d21 w + 6 d 04/09/2025 U/S Fetus 1 12/03/2024 basedupon AC, BPD, Femur, HC 22w + 3 d 04/05/2025 U/S Fetus 2based upon AC, BPD, Femur, HC20 w + 6 d 04/16/2025 Assigned dating based on the LMP, selected on w + 1 d 04/07/2025 Fetus 1: GENERAL EVALUATION ----- Cardiac activity present. FHR 153 bpm. movements: present.Presentation: breech, maternal left. Presenting. Placenta: Placental site: anterior, no previa, thin dividing membrane Umbilical cord: Cord vessels: 3 vessel cord. Insertion site: normalinsertion Amniotic fluid: Amount of AF: Mild Polyhydramnios. MVP 9.1 cm Fetus 2: GENERAL EVALUATION ----- Cardiac activity present. FHR 165 bpm. movements: present.Presentation: breech, maternal right. Placenta: Placental site: anterior, no previa, thin dividing membrane Umbilical cord: Cord vessels: 3 vessel cord. Insertion site: normalinsertion Amniotic fluid: Amount of AF: normal. MVP 6.0 cm Fetus 1: BIOMETRY ----- BPD 53.6mm 22w 2dHadlock OFD 68.9mm 21w 3dNicolaides HC 195.9mm 21w 6dHadlock Cerebellum tr 23.6mm 21w 6dNicolaides AC 189.6mm 23w 5d 87%Hadlock Femur 36.3mm 21w 4dHadlock Weight Calculation: EFW 521g 68%Hadlock EFW (lb,oz) 1 lb 2oz EFW by Hadlock([id number]) EFW discordance 32.5% Head / Face / Neck Biometry: Regroover 7.2mm CM 3.9mm Thorax / Lungs Biometry: Thoracic circ 165.5mm Thoracic area 21.7cm ThC / AC 0.87 Heart / Great Vessels Biometry: Cardiac circ 97.0mm Cardiac area 7.4cm CC / ThC 0.59 CA / Shahab 0.34 Fetus 2: BIOMETRY ----- BPD 52.0mm 21w 5dHadlock OFD 65.8mm 20w 5dNicolaides HC 188.2mm 21w 1dHadlock Cerebellum tr 23.8mm 21w 6dNicolaides AC 154.7mm 20w 5d 7%Hadlock Femur 31.6mm 19w 6dHadlock Weight Calculation: EFW 352g 2%Hadlock EFW (lb,oz) 0 lb 12oz EFW by Hadlock([id number]) EFW discordance 32.5% Head / Face / Neck Biometry: Regroover 6.3mm Extremities / Bony Struc Biometry: Tibia 25.7mm 1%Valadez Fibula 26.0mm 3%Valadez Fetus 1: ANATOMY ----- The following structures appear normal: Head / Neck Cranium. Head size. Head shape.Lateral ventricles. Midline falx. Cavum septi pellucidi. Cerebellum.Cisterna magna. Thalami. Face Lips. Profile. Nose. Heart / Thorax 4-chamber view. RVOT view. LVOT view.0-zmofpp-ripfslw view. Diaphragm. Abdomen Stomach. Kidneys. Bladder. Spine Cervical spine. Thoracic spine.Lumbar spine. Sacral spine. sex: female. Fetus 2: ANATOMY ----- The following structures appear normal: Head / Neck Cranium. Head size. Head shape.Lateral ventricles. Midline falx. Cavum septi pellucidi. Cerebellum.Cisterna magna. Face Profile. Nose. Heart / Thorax Diaphragm. Abdomen Stomach. Kidneys. Bladder. Spine Cervical spine. Thoracic spine.Lumbar spine. Sacral spine. The following structures were documented previously: Face Lips. Heart / Thorax 4-chamber view. RVOT view. LVOT view.6-jkjdyp-gokcist view. sex: female. Fetus 1: TTTS ASSESSMENT ----- Cardiac activity: present Placental location: anterior, no previa, thin dividing membrane Placental cord insertion: normal insertion bladder: normal hydrops: No MVP: 9.1 cm MCA PSV: 32.5 cm/s MCA MoM: 1.16 UA PI: 1.44, 89% Ductus Venosus: normal Fetus 2: TTTS ASSESSMENT ----- Cardiac activity: present Placental location: anterior, no previa, thin dividing membrane Placental cord insertion: normal insertion bladder: normal hydrops: No MVP: 6 cm MCA PSV: 40.08 cm/s MCA MoM: 1.43 UA PI: reversed Ductus Venosus: abnormal Fetus 1: DOPPLER ----- Umbilical Artery: normal. Sampling site: midcord PI 1.4489% Ramírez HR 148bpm Mid Cerebral Artery: normal PS 32.50cm/s PS 1.16MoM Ductus Venosus: normal A-wavenormal A wave Fetus 2: DOPPLER ----- Umbilical Artery: abnormal, Reversed End Diastolic Flow. Sampling site:midcord Mid Cerebral Artery: normal PS 40.08cm/s PS 1.43MoM Ductus Venosus: abnormal A-waveintermittent reversed end-diastolic flow MATERNAL STRUCTURES ----- Cervix Suboptimal Cervical length 35.9 mm Right Ovary Not examined Left Ovary Not examined RECOMMENDATION ----- Thank-you for referring your patient to assess for signs of TTTS/TAPS dueto monochorionic twin . We reviewed that unfortunately there has been progression of the UADoppler abnormality for twin 2 with respect to the UA Doppler. Previouslythere has been AEDF and today there is new persistent REDF. While these findings are stillconsistent with sFGR Type II, these findings, in conjunction with thefindings of the ductus venosus, are concerning for stillbirth. We reviewed that an adverse outcome of twin 2could negatively impact the outcome for twin 1, including neurologicinjury or demise. Also reviewed that intervening on behalf of twin 2 could be at the expense of twin 1. Reviewed goals with Deandre and her and they desire to optimizeoutcomes for both babies. Reviewed that while they are at the periviableperiod, outcomes are still uncertain at this gestational age, even for twin 1. Given twin 2 is se827s at 22 weeks, chances of intact survival is low. For twin 1 at 521g at22 weeks, on average, survival is typically quoted about 50%. Given current findings on today's US, thereare three options available: 1) continue expectant management in the hope that twin 2 reaches agestational age and size in which outcomes are improved; 2) inpatient admission now with betamethasone and initiation ofsurveillance for both twins; 3) Intervention. In this context, reviewed case with Dr. Spangler [facility] to discuss possible management options. He discussed that there aresituations in which fetoscopic laser photocoagulation of the placenta could be offered todichorionize the placenta with the intent of improving outcomes for bothtwins. However, he notes that in this setting, chances of this leading to a co-twin demise of twin 2 arerather high (60-70%). Deandre desires optimal outcomes for both babies and declines [facility] referral.After discussion regarding chances of survival of both twins at 22 weeks,they opted to continue expectant management at this time. They strongly desire NICUconsultation and will do our best to arrange an outpatient consultation assoon as possible. Will initiate thrice weekly surveillance (without NST at this time)until they desire intervention. Return to primary provider for continued care. If you have questions regarding today's evaluation or if we can be offurther service, please contact the [facility]. anomalies may be present but not detected I spent a total of 25 minutes (excluding the ultrasound interpretation) onthe date of this encounter including preparing to see the patient(reviewing medical records/tests), in direct [id number] contact with the patient during the visitcounseling and discussing the plan of care and documenting the visit inthe electronic medical record. IMPRESSION ----- Monochorionic diamniotic twin gestation at 22w 1d gestational age withselective growth restriction of twin 2. Fetus 1 1. None of the anomalies commonly detected by ultrasound were evident inthe detailed anatomic survey described above. 2. Growth parameters and estimated weight were appropriate forgestational age. 3. The amniotic fluid volume was elevated consistent with mildpolyhydramnios. A normal bladder was visualized. 4. The umbilical artery Doppler studies were within normal limits. 5. The middle cerebral artery Doppler studies were within normal limits. 6. The ductus venosus studies were within normal limits. Fetus 2 1. None of the anomalies commonly detected by ultrasound were evident inthe detailed anatomic survey described above. 2. Growth parameters and estimated weight were consistent withsevere growth restriction. The inter-twin discordance was 32.5 %. 3. The amniotic fluid volume appeared normal with MVP 6.0 cm. A normalbladder was visualized. 4. The umbilical artery Doppler studies were abnormal with persistentreversed end diastolic flow. 5. The middle cerebral artery Doppler studies were within normal limits. 6. The ductus venosus studies were abnormal with intermittent reversed awave. 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
--- OUTSIDE RECORDS SUMMARY | 2024-12-07 20:24 | XMS_ITS | Encounter Summary ---
Author Organization [facility] Address [address] [place] [address] Care Team Providers Care Box Estimator Name Role Phone No Ref-Primary, Physician Primary Care Provider Flower Amato MD Unavailable [phone] Reason for Visit * Reason Comments Ultrasound RL2/UAR/MCA-mono/di twins, fetus 2 FGR and AEDF, fetus 1 mild polyhydramnios Encounter Details Date Type Department Care Team (Latest Contact Info) Description 12/03/2024 2:45 PM CASTING WHEEL OPERATOR Office Visit [facility] [place] [address] [place] [address] Nicole Núñez MD [address] [place] [address] Flor Dickson MD [address] [place] [address] [address] [place] [address] 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 Flor Dickson M.D. Maternal -Medicine Specialist ING WHEEL OPERATOR documented in this encounter Nursing Notes * Rivka Jones, RN - 12/03/2024 2:45 PM CST Patient reports positive movement x 2. Education provided to patient on today's ultrasound and plan for future ultrasounds. SBAR given to BLAN[facility] MEDINA, see their note in Epic. ING WHEEL OPERATOR documented in this encounter Plan of Treatment Upcoming Encounters Date Type Department Care Team (Late st Contact Info) Description 12/10/2024 1:30 PM CASTING WHEEL OPERATOR Appointment [facility] M[facility] Medicine [address] [place] [phone] Jesus Harmon MD [address] [place] [address] 12/10/2024 2:00 PM CASTING WHEEL OPERATOR Office Visit [facility] Medicine [address] [place] [address] Jesus Harmon MD [address] [place] [address] 12/10/2024 2:15 PM CASTING WHEEL OPERATOR Office Visit [facility] [place] [address] [place] [address] Jesus Harmon MD [address] [place] [address] 12/12/2024 8:45 AM CASTING WHEEL OPERATOR Appointment [facility] Maternal Medicine [facility] [address] [place] [address] Diane Lopez MD [address] [facility] [address] [place] [address] 12/12/2024 9:15 AM CASTING WHEEL OPERATOR Office Visit [facility] Medicine [facility] [address] [place] [address] Diane Lopez MD [address] [facility] [address] [place] [address] 12/14/2024 1:30 PM CASTING WHEEL OPERATOR Ancillary Procedure [facility] [address] [place] [phone] Jesus Harmon MD 500 [place] [address] 12/14/2024 2:00 PM CASTING WHEEL OPERATOR Office Visit [facility] [address] [place] [address] Jesus Harmon MD 500 [place] [address] 12/17/2024 12:45 PM CASTING WHEEL OPERATOR Appointment [facility] [place] [facility] [address] [place] [address] Jesus Harmon MD [address] [place], [place] [address] 12/17/2024 1:15 PM CASTING WHEEL OPERATOR Office Visit [facility] [place] [address] [place] [address] Jesus Harmon MD [address] [place] [address] 12/17/2024 1:30 PM CASTING WHEEL OPERATOR Office Visit [facility] [place] [address] [place] [address] Jesus Harmon MD [address] [place] [address] 12/19/2024 9:30 AM CASTING WHEEL OPERATOR Appointment [facility] [place] [address] [place] [phone] Nicole Núñez MD [address] [place], [place] [address] Flower Amato MD [address] [address] 12/19/2024 10:00 AM CASTING WHEEL OPERATOR Office Visit [facility] Maternal Medicine [facility] [address] [place] [phone] Nicole Núñez MD [address] [facility] [place] [address] Flower Amato MD [address] [facility] [address] [place], [place] [address] 12/21/2024 11:45 AM CASTING WHEEL OPERATOR Appointment [facility] Medicine [facility] [address] [place] [phone] Jesus Harmon MD 500 [place] [address] Karin Esteban MD [address] [place] [address] 12/21/2024 12:15 PM CASTING WHEEL OPERATOR Office Visit [facility] [place] [address] [facility] [address] [place] [phone] Jesus Harmon MD [address] [place] [address] Karin Esteban MD [address] [place] [address] 12/24/2024 11:00 AM CASTING WHEEL OPERATOR Appointment [facility] [place] [address] [place] [phone] Jesus Harmon MD [address] [place] [address] 12/24/2024 11:30 AM CASTING WHEEL OPERATOR Office Visit [facility] [place] [address] [place] [address] eJsus Harmon MD [address] [place] [address] 12/24/2024 11:45 AM CASTING WHEEL OPERATOR Office Visit [facility] [place] [address] [place] [address] Jesus Harmon MD [address] [place] [address] 12/26/2024 10:15 AM CASTING WHEEL OPERATOR Appointment [facility] Maternal Medicine [place] [address] [facility] [address] [place] [address] Jesus Harmon MD [address] [place] [address] 12/26/2024 10:45 AM CASTING WHEEL OPERATOR Office Visit [facility] [place] [address] [place] [address] Jesus Harmon MD [address] [place] [address] 12/28/2024 10:15 AM CASTING WHEEL OPERATOR Appointment [facility] [place] [address] [place] [address] Diane Lopez MD [address] [place] [address] [place] [address] 12/28/2024 10:45 AM CASTING WHEEL OPERATOR Office Visit [facility] Medicine [facility] [address] [place] [address] Diane Lopez MD [address] [place] [address] [place] [address] 01/11/2025 10:15 AM CDT Appointment [facility] [address] [place] [address] Diane Lopez MD [address] [place] [address] [place] [address] 01/11/2025 10:45 AM CDT Office Visit [facility] [address] [place] [address] Diane Lopez MD [address] [place] [address] [place] [address] documented as of this encounter Visit Diagnoses Diagnosis 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
--- OUTSIDE RECORDS SUMMARY | 2024-12-07 20:24 | XMS_ITS | Encounter Summary ---
Author Organization [facility] Address [address] [facility] [place] [address] Care Team Providers Care Optomechanical Technician Name Role Phone No Ref-Primary, Physician Primary Care Provider Flower Amato MD Unavailable [phone] Reason for Referral * Consultation (Routine: Next available opening) - Pending Review Specialty Diagnoses / Procedures Referred By Noa t Referred To Contact Diagnoses Monochorionic diamniotic twin , antepartum Flor Dickson MD [address] [place] [address] Phone: tel: fax: Referral ID Status Reason Start Date Expiration Date V isits Requested Visits Authorized [id number] Pending Review 12/04/2024 12/04/2025 1 1 Question Answer Office Visit Type: NICU Consult Comments 1230 2/5 T DRIVER Reason for Visit * Reason Onset Date Comments Appointment 12/04/2024 Encounter Details Date Type Department Care Team (Late st Contact Info) Description 12/04/2024 Telephone [facility]aternal [facility] [address] [place] [address] Joceline Bejarano, RN Appointment Social History Tobacco Use Types Packs/Day Years [...] on file Legal Sex Female 11:44 PM FLEET DRIVER Gender Identity Not on file Sexual Orientation Not on file documented as of this encounter Miscellaneous Notes * Telephone Encounter - Joceline Bejarano RN - 12/04/2024 1:57 PM FLEET DRIVER Supervisor Braiding spoke with patient regarding follow up with [facility] on 12/05. Patient agreed to move appt from 0800am to 1145am with a NICU consult at 1230. Joceline Bejarano RN T DRIVER documented in this encounter Plan of Treatment Upcoming Encounters Date Type Department Care Team (Late st Contact Info) Description 12/10/2024 1:30 PM FLEET DRIVER Appointment [facility] [address] [address] Jesus Harmon MD [address] [place] [address] 12/10/2024 2:00 PM FLEET DRIVER Office Visit [facility] [address] [address] Jessu Harmon MD [address] [place] [address] 12/10/2024 2:15 PM FLEET DRIVER Office Visit [facility] [address] [place] [address] Jesus Harmon MD [address] [place] [address] 12/12/2024 8:45 AM FLEET DRIVER Appointment [facility] [address] [facility] [address] [place] [address] Diane Lopez MD [address] [place] [address] 12/12/2024 9:15 AM FLEET DRIVER Office Visit [facility] [address] [place] [address] Diane Lopez MD [address] [facility] [address] [place] [address] 12/14/2024 1:30 PM FLEET DRIVER Ancillary Procedure [facility] [address] [address] Jesus Harmon MD 500 [place] [address] 12/14/2024 2:00 PM FLEET DRIVER Office Visit [facility] [address] [place] [phone] Jesus Harmon MD 500 [place] [address] 12/17/2024 12:45 PM FLEET DRIVER Appointment [facility] [address] [facility] [place] [address] Jesus Harmon MD 500 [place] [address] 12/17/2024 1:15 PM FLEET DRIVER Office Visit [facility] [place] [address] [place] [address] Jesus Harmon MD 500 [place] [address] 12/17/2024 1:30 PM FLEET DRIVER Office Visit [facility] [address] [place] [address] Jesus Harmon MD 500 [place] [address] 12/19/2024 9:30 AM FLEET DRIVER Appointment [facility] [place] [address] [place] [address] Nicole Núñez MD [address] [address] Flower Amato MD [address] [address] 12/19/2024 10:00 AM FLEET DRIVER Office Visit [facility] [place] [address] [facility] [address] [place] [address] Nicole Núñez MD [address] [facility] [place] [address] Flower Amato MD [address] [address] 12/21/2024 11:45 AM FLEET DRIVER Appointment [facility] [place] [address] [place] [address] Jesus Harmon MD 500 [place] [address] Karin Esteban MD [address] [address] 12/21/2024 12:15 PM FLEET DRIVER Office Visit [facility] [address] [place] [address] Jesus Harmon MD 500 [place] [address] Karin Esteban MD [address] [facility] [address] [place] [address] 12/24/2024 11:00 AM FLEET DRIVER Appointment [facility] [place] [address] [place] [phone] Jesus Harmon MD [address] [place] [address] 12/24/2024 11:30 AM FLEET DRIVER Office Visit [facility] [place] [address] [place] [address] Jesus Harmon MD [address] [place] [address] 12/24/2024 11:45 AM FLEET DRIVER Office Visit [facility] [place] [address] [place] [address] Jesus Harmon MD 500 [place] [address] 12/26/2024 10:15 AM FLEET DRIVER Appointment [facility] [address] [place] [phone] Jesus Hamron MD [address] [place] [address] 12/26/2024 10:45 AM FLEET DRIVER Office Visit [facility] [address] [place] [phone] Jesus Harmon MD [address] [place] [address] 12/28/2024 10:15 AM FLEET DRIVER Appointment [facility] [address] [place] [address] Diane Lopez MD [address] [place] [address] [place] [address] 12/28/2024 10:45 AM FLEET DRIVER Office Visit [facility] [place] [address] [facility] [address] [place] [phone] Diane Lopez MD [address] [address] [place] [address] 01/11/2025 10:15 AM CDT Appointment [facility] [address] [place] [phone] Diane Lopez MD [address] [address] [place] [address] 01/11/2025 10:45 AM CDT Office Visit [facility] [place] [address] [facility] [address] [place] [phone] Diane Lopez MD [address] [place] [address] Scheduled Referrals Name Type Priority Associated Diagnoses Orde r Schedule MFM Office Visit - NICU Consult Referral Routine: Next available opening Monochorionic diamniotic twin , antepartum Expected: 12/05/2024 (Approximate), Expires: 12/04/2025 documented as of this encounter Visit Diagnoses [...] antepartum documented in this encounter Care Teams Optomechanical Technician Relationship Specialty Start Date End Date No Ref-Primary, Physician PCP - General 12/04/21 Flower Amato MD [address] [place] [address] Assigned OBGYN Provider 11/22/24 documented as of this encounter
--- OUTSIDE RECORDS SUMMARY | 2024-12-07 20:24 | XMS_ITS | Encounter Summary ---
Author Organization [facility] Address [address] [place] [address] Care Team Providers Care Dot Etcher Name Role Phone No Ref-Primary, Physician Primary Care Provider Flower Amato MD Unavailable [phone] Encounter Details Date Type Department Care Team (Latest Contact Info) Description 12/03/2024 Travel Social History Tobacco Use Types Packs/Day [...] on file Legal Sex Female 11:44 PM PANELBOARD ASSEMBLER Gender Identity Not on file Sexual Orientation Not on file documented as of this encounter Plan of Treatment Upcoming Encounters Date Type Department Care Team (Late st Contact Info) Description 12/10/2024 1:30 PM PANELBOARD ASSEMBLER Appointment [facility] [place] [address] [place] [phone] Jesus Harmon MD [address] [place] [address] 12/10/2024 2:00 PM PANELBOARD ASSEMBLER Office Visit [facility] [address] [place] [address] Jesus Harmon MD [address] [place] [address] 12/10/2024 2:15 PM PANELBOARD ASSEMBLER Office Visit [facility] [address] [place] [address] Jesus Harmon MD [address] [place] [address] 12/12/2024 8:45 AM PANELBOARD ASSEMBLER Appointment [facility] [address] [place] [address] Diane Lopez MD [address] [address] 12/12/2024 9:15 AM PANELBOARD ASSEMBLER Office Visit [facility] [address] [place] [address] Diane Lopez MD [address] [address] 12/14/2024 1:30 PM PANELBOARD ASSEMBLER Ancillary Procedure [facility] [address] [place] [address] [place] [address] Jesus Harmon MD [address] [place] [address] 12/14/2024 2:00 PM PANELBOARD ASSEMBLER Office Visit [facility] [address] [address] Jesus Harmon MD [address] [place] [address] 12/17/2024 12:45 PM PANELBOARD ASSEMBLER Appointment [facility] [place] [address] [place] [phone] Jesus Harmon MD [address] [place] [address] 12/17/2024 1:15 PM PANELBOARD ASSEMBLER Office Visit [facility] [place] [address] [place] [address] Jesus Harmon MD [address] [place] [address] 12/17/2024 1:30 PM PANELBOARD ASSEMBLER Office Visit [facility] [place] [address] [place] [address] Jesus Harmon MD 500 [place] [address] 12/19/2024 9:30 AM PANELBOARD ASSEMBLER Appointment [facility] [address] [facility] [address] [place] [phone] Nicole Núñez MD [address] [place] [phone] Flower Amato MD [address] [facility] [address] [address] 12/19/2024 10:00 AM PANELBOARD ASSEMBLER Office Visit [facility] [address] [facility] [address] [place] [phone] Nicole Núñez MD [address] [place] [address] Flower Amato MD [address] [address] 12/21/2024 11:45 AM PANELBOARD ASSEMBLER Appointment [facility] Medicine [place] [address] [facility] [address] [place] [phone] Jesus Harmon MD [address] [place] [address] Karin Esteban MD [address] [place], [place] [address] [address] 12/21/2024 12:15 PM PANELBOARD ASSEMBLER Office Visit [facility] [place] [address] [facility] [address] [place] [phone] Jesus Harmon MD [address] [place] [address] Karin Esteban MD [address] [facility] [address] [address] 12/24/2024 11:00 AM PANELBOARD ASSEMBLER Appointment [facility] [place] [address] [place] [address] Jesus Harmon MD [address] [place] [address] 12/24/2024 11:30 AM PANELBOARD ASSEMBLER Office Visit [facility] [place] [address] [place] [address] Jesus Harmon MD [address] [place], [place] [address] 12/24/2024 11:45 AM PANELBOARD ASSEMBLER Office Visit [facility] [place] [address] [facility] [place] [address] Jesus Harmon MD [address] [place] [address] 12/26/2024 10:15 AM PANELBOARD ASSEMBLER Appointment [facility] [place] [address] [facility] [address] [place] [phone] Jesus Harmon MD [address] [place] [address] 12/26/2024 10:45 AM PANELBOARD ASSEMBLER Office Visit [facility] [place] [address] [facility] [address] [place] [phone] Jesus Harmon MD [address] [place] [address] 12/28/2024 10:15 AM PANELBOARD ASSEMBLER Appointment [facility] [place] [address] [facility] [address] [place] [phone] Diane Lopez MD [address] [place] [address] 12/28/2024 10:45 AM PANELBOARD ASSEMBLER Office Visit [facility] [place] [address] [facility] [address] [place] [phone] Diane Lopez MD [address] [place] [address] 01/11/2025 10:15 AM CDT Appointment [facility] [place] [address] [facility] [address] [place] [phone] Diane Lopez MD [address] [place] [address] 01/11/2025 10:45 AM CDT Office Visit [facility] [place] [address] [place] [phone] Diane Lopez MD [address] [place] [address] documented as of this encounter Visit Diagnoses Not on filedocumented in this encounter Care Teams Dot Etcher Relationship Specialty Start Date End Date No Ref-Primary, Physician PCP - General 12/04/21 Flower Amato MD [address] [place] [address] Assigned OBGYN Provider 11/22/24 documented as of this encounter
--- OUTSIDE RECORDS SUMMARY | 2024-12-07 20:24 | XMS_ITS | Clinical Summary ---
Author Organization [facility] Address [address] [facility] [place] [address] Care Team Providers Care Director Talent Management Name Role Phone No Ref-Primary, Physician Primary Care Provider Flower Amato MD Unavailable [phone] Allergies No known active allergies Medications acetaminophen (TYLENOL) 500 MG tabletIndication s:Acute appendicitis with localized peritonitis, unspecified whether abscess present, unspecified whether gangrene present, unspecified whether perforation present Take 2 tablets (1,000 mg) by mouth every 6 hours as needed for pain 2 Active omeprazole (PRILOSEC) [address] capsule Take 20 mg by mouth daily. Active Vit-Fe Fumarate-FA ( VITAMINS PO) Take 1 tablet by mouth daily. Active IRON-VITAMINS PO Take by mouth. Active ibuprofen (ADVIL/MOTRIN) 200 MG tabletIndication s:Acute appendicitis with localized peritonitis, unspecified whether abscess present, unspecified whether gangrene present, unspecified whether perforation present Take 3 tablets (600 mg) by mouth every 6 hours as needed for moderate pain 100 tablet 2 12/05/19 25 Discontinu ed(Med Rec(No AVS / No eCancel)) oxyCODONE (ROXICODONE) 5 MG tabletIndication s:Acute appendicitis with localized peritonitis, unspecified whether abscess present, unspecified whether gangrene present, unspecified whether perforation present Take 1-2 tablets (5-10 mg) by mouth every 4 hours as needed for moderate to severe pain 12 tablet 2 12/05/19 Discontinu ed(Med Rec(No AVS / No eCancel)) sertraline (ZOLOFT) 25 MG tablet Take 12.5 mg by mouth daily 12/05/19 Discontinu ed(Med Rec(No AVS / No eCancel)) amoxicillin (AMOXIL) 875 MG tabletIndication s:Strep throat Take 1 tablet (875 mg) by mouth 2 times daily 20 tablet 3 12/05/19 Discontinu ed(Med Rec(No AVS / No eCancel)) Active Problems Patient Care Coordination No te Formatting of this note is d ifferent from the original. [facility] Care Plan: For details of imaging, genetic testing and consultations, please see the maternal medical record: Deandre Leyva MR#:[id number] Partner's name: Los Baby's name: Delivery hospital: [facility] DIAGNOSIS: DIAGNOSIS / DIAGNOSES: 1) mono/di twins 2) sFGR Type II fetus 2- intermittent REDF, abnomal DV 3) circumvallate placenta 4) mild poly F1 GENETIC (and other) TESTIN) NIPT low risk 2) Carrier screening PERTINENT MATERNAL CONDITIONS: 1) Hx term vaginal delivery x2 2) Hypothyroidism CARE PLAN: 1) Ultrasounds - serial growth US in 2 weeks 12/17 2) Other Imaging - echoes 11/30 Dr. Dominguez 3) surveillance - three times per week TTTS check 4) Relocation - 5) care with - [place] [facility] 12/10 6) Labs - Blood type: O Pos Ab screen: neg HepBSAg: NR Rubella: not immune RPR: NR HIV: NR Hep C: Neg HgbA1c: 5.2 PAP: 07/16/24 GCT: GBS: 7) Vaccines: Tdap- Flu Vaccine- declined RSV- 8) PHQ-9: 9) care team and consultations - A) Genetic Counselor - B) Neonatology - 12/[address] Joe C) Social Work - D) DELIVERY PLAN: 1) Hospital - [facility] 2) Gestational age - 3) Route - 4) Notifications in labor - 5) Genetics/specimen collection for baby: BABY PLAN: 1) Baby to go to NICU 2) Imaging to be done - A) immediately after - B) prior to hospital discharge - C) after discharge from the hospital - 3) Consults to be done - A) immediately after - B) prior to hospital discharge - C) after discharge from the hospital - 4) Medications - REFERRING PROVIDER(S): 1) Primary OB Provider: [facility] 2) Other Sub-Specialty Provider: 3) Anticipated Pediatric Provider: DEMOGRAPHICS: Patient contact info: [phone] [place] [address] (home) Problem Noted Date Diagnosed Date Monochorionic diamniotic twin , antepar stew 12/04/2024 Estimated Date of Delivery Comme nts Yes 04/07/2025 Based on last me nstrual period of 07/01/2024 Encounters Date Type Department Care Team Description 12/07/2024 10:45 AM ANALOG IC DESIGN ARCHITECT Office Visit [facility] Maternal Medicine Center [address] [address] Jaren Rodriguez MD Poor growth affecting management of mother in second trimester, fetus 2 (Primary Dx); Monochorionic diamniotic twin , antepartum 12/07/2024 10:08 AM ANALOG IC DESIGN ARCHITECT Hospital Encounter [facility] Maternal Medicine Center [address] [phone] Jaren Rodriguez MD Monochorionic diamniotic twin , antepartum 12/07/2024 Travel 12/05/2024 12:30 PM ANALOG IC DESIGN ARCHITECT Office Visit [facility] Maternal Medicine [address] [address] Karin Esteban MD Scheurer, Rand Oleary MD Monochorionic diamniotic twin , antepartum 12/05/2024 12:15 PM ANALOG IC DESIGN ARCHITECT Office Visit [facility] Maternal Medicine Center [address] [address] Karin Esteban MD Marcotte, Michael, MD Monochorionic diamniotic twin , antepartum (Primary Dx); Poor growth affecting management of mother in second trimester, fetus 2; Umbilical cord complication, unspecified cord complication, fetus 2 12/05/2024 11:20 AM ANALOG IC DESIGN ARCHITECT - 12/05/2024 11:59 PM ANALOG IC DESIGN ARCHITECT Hospital Encounter [facility] Maternal Medicine [facility] [address] [place] [phone] Karin Esteban MD Monochorionic diamniotic twin gestation in second trimester; Intrauterine growth restriction affecting antepartum care of mother in first trimester, fetus 2 Discharge Disposition: Home or Self Care 12/05/2024 Orders Only [facility] Maternal Medicine [facility] [address] [place] [address] Joceline Bejarano RN Monochorionic diamniotic twin , antepartum (Primary Dx) 12/05/2024 Travel 12/04/2024 Telephone [facility] Maternal Medicine [facility] [address] [place] [phone] Joceline Bejarano RN Appointment 12/04/2024 MyC Medical Advice [facility] Maternal Medicine [facility] [address] [place] [address] Joceline Bejarano RN 12/03/2024 2:45 PM ANALOG IC DESIGN ARCHITECT Office Visit [facility] Medicine [facility] [address] [place] [phone] Nicole Núñez MD Nashif, Sereen, MD Monochorionic diamniotic twin gestation in second trimester (Primary Dx); Intrauterine growth restriction affecting antepartum care of mother in second trimester, fetus 2 12/03/2024 2:01 PM ANALOG IC DESIGN ARCHITECT - 12/03/2024 11:59 PM ANALOG IC DESIGN ARCHITECT Hospital Encounter [facility] Maternal Medicine [facility] [address] [place] [phone] Nicole Núñez MD Monochorionic diamniotic twin gestation in second trimester Discharge Disposition: Home or Self Care 12/03/2024 Travel 12/02/2024 Telephone [facility] Nurse [facility]visors [address] [place] [phone] Beverly Gagnon RN Orders 11/30/2024 2:45 PM ANALOG IC DESIGN ARCHITECT Office Visit [facility] Maternal Medicine Center [place] [address] [place] [address] Nicole Núñez MD Monochorionic diamniotic twin gestation in second trimester (Primary Dx); Intrauterine growth restriction affecting antepartum care of mother in first trimester, fetus 2; Ductus venosus abnormality 11/30/2024 1:31 PM ANALOG IC DESIGN ARCHITECT - 11/30/2024 11:59 PM ANALOG IC DESIGN ARCHITECT Hospital Encounter [facility] Maternal Medicine Center [place] [address] [place] [address] Nicole Núñez MD Monochorionic diamniotic twin gestation in second trimester Discharge Disposition: Home or Self Care 11/30/2024 12:25 PM ANALOG IC DESIGN ARCHITECT - 11/30/2024 1:30 PM ANALOG IC DESIGN ARCHITECT Hospital Encounter [facility] [address] [place] [phone] Yobani Crespo MD Monochorionic diamniotic twin gestation in second trimester Discharge Disposition: Home or Self Care 11/30/2024 12:00 PM ANALOG IC DESIGN ARCHITECT - 11/30/2024 12:24 PM ANALOG IC DESIGN ARCHITECT Hospital Encounter [facility] [address] [place] [phone] Yobani Crespo MD Monochorionic diamniotic twin gestation in second trimester Discharge Disposition: Home or Self Care 11/30/2024 Office Visit [facility] [address] [place] [address] [facility] [address] [place] [address] Luc Dominguez MD cardiac anomaly complicating , antepartum, fetus 1 (Primary Dx); cardiac anomaly complicating , antepartum, fetus 2 11/30/2024 Travel 11/22/2024 10:00 AM ANALOG IC DESIGN ARCHITECT Office Visit [facility] Maternal Medicine Center [place] [address] [facility] [address] [place] [phone] Nicole Núñez MD Monochorionic diamniotic twin gestation in second trimester (Primary Dx); Intrauterine growth restriction affecting antepartum care of mother in first trimester, fetus 2 11/22/2024 9:28 AM ANALOG IC DESIGN ARCHITECT - 11/22/2024 11:59 PM ANALOG IC DESIGN ARCHITECT Hospital Encounter [facility] Maternal Medicine [place] [address] [place] [address] Nicole Núñez MD Monochorionic diamniotic twin gestation in second trimester Discharge Disposition: Home or Self Care 11/22/2024 Travel 11/14/2024 11:30 AM ANALOG IC DESIGN ARCHITECT Office Visit [facility] Maternal Medicine [place] [address] [place] [address] Flower Amato MD Monochorionic diamniotic twin gestation in second trimester (Primary Dx); Discordant growth in twin gestation, fetus 2 of multiple gestation; Intrauterine growth restriction affecting antepartum care of mother in first trimester, fetus 2 11/14/2024 10:09 AM ANALOG IC DESIGN ARCHITECT - 11/14/2024 11:59 PM ANALOG IC DESIGN ARCHITECT Hospital Encounter [facility] Maternal Medicine [place] [address] [place] [address] Flower Amato MD Monochorionic diamniotic twin gestation in second trimester Discharge Disposition: Home or Self Care 11/14/2024 Travel 11/08/2024 10:00 AM ANALOG IC DESIGN ARCHITECT Office Visit [facility] Medicine [place] [address] [place] [address] Flor Dickson MD Monochorionic diamniotic twin gestation in second trimester (Primary Dx); Discordant growth in twin gestation, fetus 2 of multiple gestation 11/08/2024 9:24 AM ANALOG IC DESIGN ARCHITECT - 11/08/2024 11:59 PM ANALOG IC DESIGN ARCHITECT Hospital Encounter [facility] Maternal Medicine [place] [address] [place] [address] Flor Dickson MD Monochorionic diamniotic twin gestation in second trimester Discharge Disposition: Home or Self Care 11/08/2024 Travel 11/02/2024 2:00 PM ANALOG IC DESIGN ARCHITECT Office Visit [facility] [place] [address] [place] [address] Yoabni Crespo MD Nashif, Sereen, MD Monochorionic diamniotic twin gestation in second trimester (Primary Dx); Intrauterine growth restriction affecting antepartum care of mother in first trimester, fetus 2 11/02/2024 1:22 PM ANALOG IC DESIGN ARCHITECT - 11/02/2024 11:59 PM ANALOG IC DESIGN ARCHITECT Hospital Encounter [facility] [place] [address] [place] [address] Yobani Crespo MD Nashif, Sereen, MD Monochorionic diamniotic twin gestation in second trimester Discharge Disposition: Home or Self Care 11/02/2024 Travel 10/26/2024 11:30 AM ANALOG IC DESIGN ARCHITECT Office Visit [facility] Maternal Medicine [address] [phone] Estrella Esteban MD Monochorionic diamniotic twin gestation in second trimester (Primary Dx); growth restriction antepartum 10/26/2024 11:00 AM ANALOG IC DESIGN ARCHITECT Ancillary Procedure [facility] Maternal Medicine [address] [phone] Estrella Esteban MD Monochorionic diamniotic twin gestation in second trimester 10/26/2024 Travel 10/19/2024 11:30 AM ANALOG IC DESIGN ARCHITECT Office Visit [facility] M[facility] [place] [address] [place] [address] Yobani Crespo MD Monochorionic diamniotic twin gestation in second trimester (Primary Dx); growth restriction antepartum 10/19/2024 11:00 AM ANALOG IC DESIGN ARCHITECT - 10/19/2024 11:59 PM ANALOG IC DESIGN ARCHITECT Hospital Encounter [facility] Maternal Medicine [place] [address] [place] [address] Yobani Crespo MD related condition, antepartum Discharge Disposition: Home or Self Care 10/19/2024 Travel 10/15/2024 PRE VISIT [facility] Maternal Medicine [facility] [address] [facility] [address] [place] [phone] Debra Tran RN Ultrasound (2/3 complete-Twin , mono-di) 10/10/2024 Transcribe Orders [facility] Medicine [facility] [address] [facility] [address] [place] [phone] Pamela Cuellar MD related condition, antepartum (Primary Dx) 10/09/2024 Medical Correspondence [facility] Information Management [address] [place] [address] Scan, Non-Provider from Last 3 Months Immunizations Name Administration Dates Next Due DTP-Hib 01/02/1996,02/07/1995,1994 ,1994 HEPATITIS A (PEDS 12M-18Y) 05/31/2014,10/07/2011 Hepatitis A (ADULT 19+) 04/16/2015 Hepatitis B, Peds 08/30/1995,02/07/1995,08/30/19 94,1994 Historical DTP/aP 07/13/1999 MMR 07/13/1999,08/01/1995 Meningococcal ACWY (Menactra ) 10/07/2011 OPV, trivalent, live 01/02/1996,02/07/1995,12/17,1994 Poliovirus, inactivated (IPV) 07/13/1999 TDAP (Adacel,Boostrix) 09/25/2008 Typhoid IM 05/31/2014 Typhoid Oral 05/29/2015 Yellow Fever 05/29/2015 Social History Tobacco Use Types Packs/Day Years [...] on file Legal Sex Female 11:44 PM ANALOG IC DESIGN ARCHITECT Gender Identity Not on file Sexual Orientation Not on file Last Filed Vital Signs Vital Sign Reading Time Taken Comments Blood Pressure 111/70 12/05/2024 1:59 PM ANALOG IC DESIGN ARCHITECT Pulse 73 12/05/2024 1:59 PM ANALOG IC DESIGN ARCHITECT Temperature 37.1 C (98.7 F) 12/24/2023 3:35 PM ANALOG IC DESIGN ARCHITECT Respiratory Rate 18 12/05/2024 1:59 PM ANALOG IC DESIGN ARCHITECT Oxygen Saturation 100% 12/05/2024 1:59 PM ANALOG IC DESIGN ARCHITECT Inhaled Oxygen Concentration - - Weight 69.3 kg (152 lb 11.2 oz) 12/24/2023 3:35 PM ANALOG IC DESIGN ARCHITECT Height 165.1 cm (5' 5) 12/04/2021 10:1 0 PM ANALOG IC DESIGN ARCHITECT Body Mass Index 25.41 12/04/2021 10:10 PM ANALOG IC DESIGN ARCHITECT Plan of Treatment Upcoming Encounters Date Type Department Care Team (Late st Contact Info) Description 12/10/2024 1:30 PM ANALOG IC DESIGN ARCHITECT Appointment [facility] Maternal Medicine [address] [phone] Jesus Harmon MD [address] [place] [phone] 12/10/2024 2:00 PM ANALOG IC DESIGN ARCHITECT Office Visit [facility] Maternal Medicine [address] [address] Jesus Harmon MD [address] [place] [address] 12/10/2024 2:15 PM ANALOG IC DESIGN ARCHITECT Office Visit [facility] Maternal Medicine [address] [place] [address] Jesus Harmon MD [address] [place] [address] 12/12/2024 8:45 AM ANALOG IC DESIGN ARCHITECT Appointment [facility] Maternal Medicine [facility] [address] [facility] [address] [place] [address] Yobani Crespo MD [address] [facility] [address] [place] [address] 12/12/2024 9:15 AM ANALOG IC DESIGN ARCHITECT Office Visit [facility] Maternal Medicine [facility] [address] [facility] [address] [place] [address] Yobani Crespo MD [address] [facility] [address] [place] [address] 12/14/2024 1:30 PM ANALOG IC DESIGN ARCHITECT Ancillary Procedure [facility] Maternal Medicine [address] [place] [phone] Jesus Harmon MD [address] [place] [address] 12/14/2024 2:00 PM ANALOG IC DESIGN ARCHITECT Office Visit [facility] Maternal Medicine [address] [place] [phone] Jesus Harmon MD [address] [place] [address] 12/17/2024 12:45 PM ANALOG IC DESIGN ARCHITECT Appointment [facility] Maternal Medicine [facility] [address] [place] [address] Jesus Harmon MD [address] [place] [address] 12/17/2024 1:15 PM ANALOG IC DESIGN ARCHITECT Office Visit [facility] [place] [address] [place] [address] Jesus Harmon MD [address] [place] [address] 12/17/2024 1:30 PM ANALOG IC DESIGN ARCHITECT Office Visit [facility] Maternal Medicine [facility] [address] [place] [address] Jesus Harmon MD [address] [place] [address] 12/19/2024 9:30 AM ANALOG IC DESIGN ARCHITECT Appointment [facility] Maternal Medicine [place] [address] [place] [phone] Nicole Núñez MD [address] [facility] [place] [address] Flower Amato MD [address] [address] 12/19/2024 10:00 AM ANALOG IC DESIGN ARCHITECT Office Visit [facility] Maternal Medicine [place] [address] [facility] [address] [place] [address] Nicole Núñez MD [address] [facility] [place] [address] Flower Amato MD [address] [address] 12/21/2024 11:45 AM ANALOG IC DESIGN ARCHITECT Appointment [facility] Maternal Medicine [place] [address] [facility] [address] [place] [address] Jesus Harmon MD [address] [place] [address] Karin Esteban MD [address] [address] 12/21/2024 12:15 PM ANALOG IC DESIGN ARCHITECT Office Visit [facility] M[facility] Medicine [facility] [place] [address] [place] [address] Jesus Harmon MD [address] [place] [address] Karin Esteban MD [address] [facility] [address] [place] [address] 12/24/2024 11:00 AM ANALOG IC DESIGN ARCHITECT Appointment [facility] [place] [address] [place] [address] Jesus Harmon MD [address] [place] [address] 12/24/2024 11:30 AM ANALOG IC DESIGN ARCHITECT Office Visit [facility] Maternal Medicine [facility] [address] [place] [address] Jesus Harmon MD [address] [place] [address] 12/24/2024 11:45 AM ANALOG IC DESIGN ARCHITECT Office Visit [facility] Maternal Medicine [facility] [address] [place] [address] Jesus Harmon MD [address] [place] [address] 12/26/2024 10:15 AM ANALOG IC DESIGN ARCHITECT Appointment [facility] Maternal Medicine [facility] [address] [place] [phone] Jesus Harmon MD [address] [place], [place] [address] 12/26/2024 10:45 AM ANALOG IC DESIGN ARCHITECT Office Visit [facility] Maternal Medicine [facility] [address] [place] [address] Jesus Harmon MD [address] [place] [address] 12/28/2024 10:15 AM ANALOG IC DESIGN ARCHITECT Appointment [facility] Maternal Medicine [place] [address] [place] [address] Yobani Crespo MD [address] [place] [address] [place] [address] 12/28/2024 10:45 AM ANALOG IC DESIGN ARCHITECT Office Visit [facility] Maternal Medicine [place] [address] [facility] [address] [place] [phone] Yobani Crespo MD [address] [place] [address] [place] [address] 01/11/2025 10:15 AM CDT Appointment [facility] Maternal Medicine [facility] [address] [facility] [address] [place] [phone] Yobani Crespo MD [address] [address] [place] [address] 01/11/2025 10:45 AM CDT Office Visit [facility] Maternal Medicine [place] [address] [facility] [address] [place] [phone] Yobani Crespo MD [address] [address] [place] [address] Health Maintenance Due Date Last Done Comments [...] per calendar year) 2024 OBGCT (OB) 12/16/2024 TDAP () IMMUNIZATION 01/06/2025 09/25/2008 ZOSTER IMMUNIZATION (1 of 2) 2044 HEPATITIS B IMMUNIZATION Completed 995, 02/07/1995, 1994, Additional history exists MENINGITIS IMMUNIZATION Completed 10/07/2011 HEPATITIS C SCREENING Completed 04/15/2019 HIV SCREENING Completed 04/15/2019, 09/07/2018 HPV IMMUNIZATION Aged Out No longer e ligible based on patient's age to complete this topic RSV VACCINE (No Doses Required) Completed Procedures Procedure Name Priority Date/Time Associated Diagnosis Comments MFM TWINS US COMPREHENSIVE F/U Routine 12/07/2024 11:40 AM ANALOG IC DESIGN ARCHITECT Monochorionic diamniotic twin , antepartum MFM TWINS US COMPREHENSIVE F/U Routine 12/05/2024 12:28 PM ANALOG IC DESIGN ARCHITECT Monochorionic diamniotic twin gestation in second trimester Intrauterine growth restriction affecting antepartum care of mother in first trimester, fetus 2 MFM TWINS US COMPREHENSIVE F/U Routine 12/03/2024 3:46 PM ANALOG IC DESIGN ARCHITECT Monochorionic diamniotic twin gestation in second trimester MFM TWINS US COMPREHENSIVE F/U Routine 11/30/2024 3:11 PM ANALOG IC DESIGN ARCHITECT Monochorionic diamniotic twin gestation in second trimester ECHO COMPLETE Routine 11/30/2024 1 :46 PM ANALOG IC DESIGN ARCHITECT Monochorionic diamniotic twin gestation in second trimester ECHO COMPLETE Routine 11/30/2024 1 :46 PM ANALOG IC DESIGN ARCHITECT Monochorionic diamniotic twin gestation in second trimester MFM TWINS US COMPREHENSIVE F/U Routine 11/22/2024 11:09 AM ANALOG IC DESIGN ARCHITECT Monochorionic diamniotic twin gestation in second trimester MFM TWINS US COMPREHENSIVE Routine 11/14/2024 11:59 AM ANALOG IC DESIGN ARCHITECT Monochorionic diamniotic twin gestation in second trimester MFM TWINS US COMPREHENSIVE F/U Routine 11/08/2024 10:15 AM ANALOG IC DESIGN ARCHITECT Monochorionic diamniotic twin gestation in second trimester MFM TWINS US COMPREHENSIVE F/U Routine 11/02/2024 2:26 PM ANALOG IC DESIGN ARCHITECT Monochorionic diamniotic twin gestation in second trimester MFM TWINS US COMPREHENSIVE F/U Routine 10/26/2024 11:48 AM ANALOG IC DESIGN ARCHITECT Monochorionic diamniotic twin gestation in second trimester MFM TWINS US OB COMPLETE 2/3 TRI Routine 10/19/2024 1:39 PM ANALOG IC DESIGN ARCHITECT related condition, antepartum from Last 3 Months Results * MFM Twins US Comprehensive F/U (12/07/2024 11:40 AM ANALOG IC DESIGN ARCHITECT) Only the most recent of8 resultswithin the time period is included. Anatomical Region Laterality Modality Ultrasound 12/07/2024 10:4 5 AM ANALOG IC DESIGN ARCHITECT Impressions 12/07/2024 1:23 PM ANALOG IC DESIGN ARCHITECT IMPRESSION ----- Patient here for growth assessment [...] bladder is visualized. Narrative 12/07/2024 1:23 PM [facility] Surveillance US ----- Pat. Name: DEANDRE LEYVA Study Date: 12/07/2024 10:45am Pat. NO: [id number] Referring MD: PAMELA CUELLAR Site: Product Craftsman: Kenyetta Lyons RDMS : 1995 Age: 29 [...] LMP, selected on 11/22/2024 22 w + 5 d 04/07/2025 Fetus 1: [...] age exceed 85-90% with appropriate intensive care (Ridaron et al., 2012). Given the high risk [...] for repeat Doppler assessment. References: ? Nando Antunez et al. (2018). Selective intrauterine growth restriction in monochorionic twins. Best Practice & Research Clinical Obstetrics & Gynaecology, 49, 65-76. ? Vidal Calles et al. (2010). The outcome of monochorionic diamniotic twin pregnancies with selective intrauterine growth restriction. [place] Journal of Obstetrics and Gynecology, 203(4), 333.e1-7. ? aRdha HALL, et al. (2018). Consensus definition of growth restriction: A [place]aks procedure. Ultrasound in Obstetrics & Gynecology, 52(1), 24-29. ? Luisa Dennis, et al. (2020). Twin complications: The risk of single intrauterine demise in monochorionic twins. Diagnosis, 40(9), 9636-7913. ? Boris Dennis, et al. (2012). mortality [...] Note Jaren Rodriguez MD - 12/07/2024 Surveillance US ----- Pat. Name: DEANDRE LEYVA Study Date: 12/07/2024 10:45am Pat. NO: [id number] Referring MD: PAMELA CUELLAR Site: Product Craftsman: Kenyetta Lyons RDMS : 1995 Age: 29 [...] in cases of AREDF in sFGR is gjhxhboxmeqae17-69 weeks (aRdha et al., 2018), though survival rates at [...] for repeat Doppler assessment. References: ? Nando s Tulio, et al. (2018). Selective intrauterine growth restriction inmonochorionic twins. Best Practice & Research Clinical Obstetrics &Gynaecology, 49, 65-76. ? Vidal Calles et al. (2010). The outcome of monochorionic diamniotic twinpregnancies with selective intrauterine growth restriction. AmericanJournal of Obstetrics and Gynecology, 203(4), 333.e1-7. ? Radha HALL, et al. (2018). Consensus definition of growthrestriction: A [place] Oaks procedure. Ultrasound in Obstetrics & Gynecology,52(1), 24-29. ? Luisa Dennis, et al. (2020). Twin complications: The risk ofsingle intrauterine demise in monochorionic twins. PrenatalDiagnosis, 40(9), 5903-3064. ? Boris Dennis et al. (2012). mortality and morbidity inmonochorionic [...] forwardflow. 5) bladder is visualized. us Jesus RAE M US ORDERABLES Edited Result - Final * ECHO COMPLETE (11/30/2024 1:46 PM ANALOG IC DESIGN ARCHITECT) Anatomical Region Laterality Modality Echocardiography 11/30/2024 1:42 PM ANALOG IC DESIGN ARCHITECT Narrative 11/30/2024 2:07 PM ANALOG IC DESIGN ARCHITECT [id number] [facility] [id number]^ZAK^YOBANI Study ID: [id number] [facility]'[address] [address] Echocardiogram Name: DEANDRE LEYVA Study Date: 11/30/2024 [...] date: 04/07/2025. Gestational age: 21w5d. Delivery at: [facility]. Specific Indication: echocardiogram performed for monochorionic diamniotic [...] to the left atrium. There is laminar vlpwh-yv-tzxt shunting across the foramen ovale. Atrioventricular valves: [...] Procedure Note Luc Dominguez MD - 11/30/2024 [id number]^ZAK^YOBANI Study ID:[id number] [facility]'s [address] [address] Echocardiogram Name: DEANDRE LEYVA Study Date: 11/30/2024 01:42 PM Patient Location: [facility] Gender: Female Patient Class:Outpatient : [id number] Age: 29 yrs Ordering Provider: YOBANI CRESPO Referring Provider: YOBANI CRESPO Performed By: Daphney Dao RDCS Reading Physician: Luc Dominguez MD Reason For Study: Monochorionic diamniotic twin [facility] Data: Number of fetuses: This is a twin gestation. Due date: 04/07/2025. Gestational age: 21w5d. Delivery at: [facility]. Specific Indication: echocardiogram performed formonochorionic diamniotic twins. [...] The fetus is [facility]. The heart is in left chest. [...] in to the left atrium. There is ymoovwblrbaj-os-lcly shunting across the foramen ovale. Atrioventricular valves: [...] Final * ECHO COMPLETE (11/30/2024 1:46 PM ANALOG IC DESIGN ARCHITECT) Anatomical Region Laterality Modality Echocardiography 11/30/2024 1:31 PM ANALOG IC DESIGN ARCHITECT Narrative 11/30/2024 2:02 PM ANALOG IC DESIGN ARCHITECT [id number]^ZAK^YOBANI Study ID: [id number] [facility] [place] [address] Echocardiogram Name: DEANDRE LEYVA Study Date: 11/30/2024 [...] date: 04/07/2025. Gestational age: 21w5d. Delivery at: [facility]. Specific Indication: echocardiogram performed for monochorionic diamniotic [...] to the left atrium. There is laminar eduuw-cg-txdv shunting across the foramen ovale. Atrioventricular valves: [...] Procedure Note Luc Dominguez MD - 11/30/2024 [id number] [facility] [id number]^ZAK^YOBANI Study ID:[id number] [facility] [address] [facility] [place] [address] Echocardiogram Name: DEANDRE LEYVA Study Date: 11/30/2024 01:31 PM Patient Location: [facility] Gender: Female Patient Class:Outpatient : [id number] Age: 29 yrs Ordering Provider: YOBANI CRESPO Referring Provider: YOBANI CRESPO Performed By: Daphney Dao RD Reading Physician: Luc Dominguez MD Reason For Study: Monochorionic diamniotic twin gestation in secondtrimester Data: Number of fetuses: This is a twin gestation. Due date: 04/07/2025. Gestational age: 21w5d. Delivery at: [facility]. Specific Indication: echocardiogram performed formonochorionic diamniotic twins. [...] in to the left atrium. There is mfcryjigsagq-kt-vhvh shunting across the foramen ovale. Atrioventricular valves: [...] * MFM Twins Comprehensive (11/14/2024 11:59 AM ANALOG IC DESIGN ARCHITECT) Anatomical Region Laterality Modality Ultrasound 11/14/2024 10:2 4 AM ANALOG IC DESIGN ARCHITECT Impressions 11/14/2024 4:40 PM ANALOG IC DESIGN ARCHITECT IMPRESSION ----- Monochorionic diamniotic twin gestation at [...] anemia polycythemia syndrome. Narrative 11/14/2024 4:40 PM ANALOG IC DESIGN ARCHITECT Comprehensive ----- Pat. Name: DEANRDE LEYVA Study Date: 11/14/2024 10:24am Pat. NO: [id number] Referring MD: PAMELA CUELLAR Site: Product Craftsman: Emerita Corona RDMS : 1995 Age: 29 [...] 0 lb 11 oz EFW by Hadlock (GIQ-UE-UC-FL) EFW discordance 30.6 % Head / Face / Neck Biometry: Cradle Slide Maker 6.9 mm CM 2.6 mm Nasal bone [...] 0 lb 8 oz EFW by Hadlock (PUL-PC-AC-FL) EFW discordance 30.6 % Head / Face / Neck Biometry: Cradle Slide Maker 6.8 mm CM 4.4 mm Extremities / [...] view. RVOT view. LVOT view. 3-vessel view. 8-gvieyh-kerhxni view. Situs. Aortic arch view. Bicaval view. [...] Thorax 4-chamber view. RVOT view. LVOT view. 8-hpflwn-gceqfih view. Aortic arch view. sex: female. Fetus [...] recommendation. She was again offered referral to [facility] for a second opinion/discussion about options in [...] the patient (reviewing medical records/tests), in direct xqah-hv-hgdj contact with the patient counseling and discussing the plan of care, documenting the visit in the electronic medical record, and communicating with other health pet care technician and/or care coordination. Please see note for details. Procedure Note Flower Amato MD - 11/14/2024 Comprehensive ----- Pat. Name: DEANDRE LEYVA Study Date: 11/14/2024 10:24am Pat. NO: [id number] Referring MD: PAMELA CUELLAR Site: Product Craftsman: Emerita Corona RDMS : 1995 Age: 29 [...] EFW (lb,oz) 0 lb 11oz EFW by Hadlock(LRP-QB-EN-FL) EFW discordance 30.6% Head / Face / Neck Biometry: Cradle Slide Maker 6.9mm CM 2.6mm Nasal bone 7.8mm Fetus 2: BIOMETRY ----- BPD 42.9mm 19w 0dHadlock OFD 55.1mm 18w 2dNicolaides HC 156.8mm 18w 4dHadlock Cerebellum tr 18.1mm 18w 0dNicolaides Nuchal fold 3.0mm AC 128.0mm 18w 3d 15%Hadlock Femur 24.5mm 17w 3dHadlock Humerus 23.5mm 17w 2dJeanty Weight Calculation: EFW 219g 2%Hadlock EFW (lb,oz) 0 lb 8oz EFW by Hadlock(ZEF-GO-QE-FL) EFW discordance 30.6% Head / Face / Neck Biometry: Cradle Slide Maker 6.8mm CM 4.4mm Extremities / Bony Struc [...] 4-chamber view. RVOT view. LVOT view.3-vessel view. 3-kzvguz-benlgfw view. Situs. Aortic arch view. Bicavalview. Ductal [...] / Thorax 4-chamber view. RVOT view. LVOT view.5-nbyaui-movsdqh view. Aortic arch view. sex: female. Fetus [...] the recommendation. She was again offered referralto [facility] for a second opinion/discussion about options in [...] see the patient(reviewing medical records/tests), in direct pcka-gc-jipx contact with the patient counseling and discussingthe plan of care, documenting the visit in the electronic medical record,and communicating with other health pet care technician and/or care coordination. Please see note for [...] anemia polycythemia syndrome. us Yobani Crespo MD [facility] US ORDERABLES Edited Result - Final * [facility] Twins US OB Complete 2/3 Tri (10/19/2024 1:39 PM ANALOG IC DESIGN ARCHITECT) Anatomical Region Laterality Modality Ultrasound 10/19/2024 11:0 2 AM ANALOG IC DESIGN ARCHITECT Impressions 10/21/2024 3:34 PM ANALOG IC DESIGN ARCHITECT IMPRESSION ----- Monochorionic diamniotic twin gestation at [...] long and closed. Narrative 10/21/2024 3:34 PM ANALOG IC DESIGN ARCHITECT 2nd / 3rd Trim ----- Pat. Name: DEANDRE LEYVA Study Date: 10/19/2024 11:02am Pat. NO: [id number] Referring MD: PAMELA CUELLAR Site: Product Craftsman: Chantell Jarquin RDMS : 1995 Age: 29 [...] d 15 w + 3 d 04/09/2025 /S Fetus 1 10/19/2024 based upon AC, BPD, Femur, HC 16 w + 3 d 04/02/2025 /S Fetus 2 based upon AC, BPD, Femur, [...] 0 lb 5 oz EFW by Hadlock (GNR-YR-JR-FL) EFW discordance 26.5 % Head / Face / Neck Biometry: Cradle Slide Maker 6.3 mm CM 2.2 mm Nasal bone [...] 0 lb 4 oz EFW by Hadlock (WLY-KF-GK-FL) EFW discordance 26.5 % Head / Face / Neck Biometry: Cradle Slide Maker 6.7 mm CM 2.5 mm Fetus 1: [...] Heart / Thorax 4-chamber view. 3-vessel view. 6-dloven-obenvlv view. sex: female. Fetus 2: ANATOMY ----- [...] Profile. Nose. Maxilla. Mandible. Heart / Thorax 2-xvqemf-rdjhzvl view. Aortic arch view. Bicaval view. Ductal [...] discussed the option a referral to the [facility] care center to discuss the option of [...] the patient (reviewing medical records/tests), in direct qpra-ny-kicd contact with the patient during the visit counseling and discussing the plan of care and documenting the visit in the electronic medical record. Procedure Note Yobani Crespo MD - 10/22/2024 Trim ----- Pat. Name: DEANDRE LEYVA Study Date: 10/19/2024 11:02am Pat. NO: [id number] Referring MD: PAMELA CUELLAR Site: Product Craftsman: Chantell Jarquin RDMS : 1995 Age: 29 [...] EFW (lb,oz) 0 lb 5oz EFW by Hadlock(RAB-BQ-IM-FL) EFW discordance 26.5% Head / Face / Neck Biometry: Cradle Slide Maker 6.3mm CM 2.2mm Nasal bone 4.1mm Fetus 2: BIOMETRY ----- BPD 31.4mm 15w 6dHadlock OFD 38.8mm -/-Nicolaides HC 112.9mm 15w 3dHadlock Cerebellum tr 15.8mm 15w 6dNicolaides Nuchal fold 2.1mm AC 89.7mm 15w 1d 34%Hadlock Femur 16.0mm 14w 5dHadlock Humerus 16.1mm 14w 4dJeanty Weight Calculation: EFW 113g 9%Hadlock EFW (lb,oz) 0 lb 4oz EFW by Hadlock(ZGI-EW-VV-FL) EFW discordance 26.5% Head / Face / Neck Biometry: Cradle Slide Maker 6.7mm CM 2.5mm Fetus 1: ANATOMY ----- [...] pellucidi. Heart / Thorax 4-chamber view. 3-vessel view.7-htkghs-amhhebs view. sex: female. Fetus 2: ANATOMY ----- [...] Lips. Profile. Nose. Maxilla.Mandible. Heart / Thorax 9-uqjred-usikrxc view. Aortic archview. Bicaval view. Ductal arch [...] discussed the option a referral to the [facility] care center todiscuss the option of SLFP [...] see the patient(reviewing medical records/tests), in direct uvka-bk-ynju contact with the patient during the visitcounseling [...] the cervix appears long and closed. us Pamela Cuellar MD [facility] ORDERABLES Edited Re sult - Final from Last 3 Months Insurance [facility] Sub[facility] Plan / Payer (Ef fective 2021-Present) Name:Deandre Leyva Relation to Subscriber:Self Name:NORBERTDEANDRE SAVAGE Payer ID:[id number] (NAIC) Group ID:Not on file Type:[facility] Address: [place] [phone] Care Teams Director Talent Management Relationship Specialty Start Date End Date No Ref-Primary, Physician PCP - General 12/04/21 Flower mAato MD [address] [place] [address] Assigned OBGYN Provider 11/22/24
--- OUTSIDE RECORDS SUMMARY | 2024-12-07 20:24 | XMS_ITS | Encounter Summary ---
Author Organization [facility] Address [address] [place] [address] Care Team Providers Care Skin Tanner Name Role Phone No Ref-Primary, Physician Primary Care Provider Flower Amato MD Unavailable [phone] Reason for Visit * Reason Onset Date Comments Orders 12/02/2024 Encounter Details Date Type Department Care Team (Late st Contact Info) Description 12/02/2024 Telephone [facility] Nurse Advisors [address] [place] [address] Beverly Gagnon, RN Orders Social History Tobacco Use Types Packs/Day Years [...] file Legal Sex Female 11:44 PM SUPERVISOR ROSE [employer]AD[employer] Gender Identity Not on file Sexual Orientation Not on file documented as of this encounter Miscellaneous Notes * Telephone Encounter - Beverly Gagnon, RN - 12/02/2024 10:02 AM CST Nurse Triage SBAR Is this a 2nd Level Triage? NO Situation: Pt calling to have her Omeprazole order switched to a different pharmacy Background: Pt is and has heartburn Assessment: Order is not in patient's chart for FNA to review or change pharmacies. Medication is OTC and is not on FNA's essential medication list Recommendation: Pt was advised that she would need to contact her PCP tomorrow for any order or pharmacy changes Beverly Gagnon, industrial electrician journeyman Nurse Advisor on 12/02/2024 at 10:09 AM [employer]SE [employer]AD[employer] documented in this encounter Plan of Treatment Upcoming Encounters Date Type Department Care Team (Late st Contact Info) Description 12/10/2024 1:30 PM SUPERVISOR ROSE [employer]AD[employer] Appointment [facility] M[facility] [place] [address] [place] [phone] Jesus Harmon MD [address] [place] [address] 12/10/2024 2:00 PM SUPERVISOR [employer] Office Visit [facility] Maternal Medicine [facility] [address] [place] [address] Jesus Harmon MD [address] [place] [address] 12/10/2024 2:15 PM SUPERVISOR [employer]SE [employer] Office Visit [facility] [place] [address] [place] [address] Jesus Harmon MD [address] [place] [address] 12/12/2024 8:45 AM SUPERVISOR ROSE GRADING Appointment [facility] Maternal Medicine [facility] [address] [place] [phone] Diane Lopez MD [address] [place] [address] 12/12/2024 9:15 AM SUPERVISOR [employer]SE [employer] Office Visit [facility] Maternal Medicine [facility] [address] [place] [phone] Diane Lopez MD [address] [address] 12/14/2024 1:30 PM SUPERVISOR ROSE [employer]ING Ancillary Procedure [facility] Maternal Medicine [address] [phone] Jesus Harmon MD [address] [place] [address] 12/14/2024 2:00 PM SUPERVISOR [employer] Office Visit [facility] Maternal Medicine [address] [phone] Jesus Harmon MD [address] [place] [address] 12/17/2024 12:45 PM SUPERVISOR ROSE [employer]ADING Appointment [facility] Maternal Medicine Center [address] [phone] Jesus Harmon MD [address] [place] [address] 12/17/2024 1:15 PM SUPERVISOR [employer] Office Visit [facility] Maternal Medicine [facility] [address] [place] [address] Jesus Harmon MD [address] [place] [address] 12/17/2024 1:30 PM SUPERVISOR RO[employer]ING Office Visit [facility] [address] [place], [place] [address] [place] [address] Jesus Harmon MD [address] [place] [address] 12/19/2024 9:30 AM SUPERVISOR ROSE GRADING Appointment [facility] Maternal Medicine [facility] [place] [address] [place] [address] Nicole Núñez MD [address] [place], [place] [address] [phone] Flower Amato MD [address] [address] 12/19/2024 10:00 AM SUPERVISOR ROSE [employer]ING Office Visit [facility] Maternal Medicine [facility] [place] [address] [place] [address] Nicole Núñez MD [address] [place] [address] Flower Amato MD [address] [id number] 12/21/2024 11:45 AM SUPERVISOR ROSE GRADING Appointment [facility] Maternal Medicine [place] [address] [place] [phone] Jesus Harmon MD [address] [place], [place] [address] Karin Esteban MD [address] [address] 12/21/2024 12:15 PM SUPERVISOR ROSE [employer]ADING Office Visit [facility] Maternal Medicine [place] [address] [place] [phone] Jesus Harmon MD [address] [place], [place] [phone] Karin Esteban MD [address] [address] 12/24/2024 11:00 AM SUPERVISOR ROSE GRADING Appointment [facility] Maternal Medicine [facility] [address] [facility] [place] [address] Jesus Harmon MD [address] [place] [address] 12/24/2024 11:30 AM SUPERVISOR ROSE GRADING Office Visit [facility] [place] [address] [facility] [place] [address] Jesus Harmon MD [address] [place] [address] 12/24/2024 11:45 AM SUPERVISOR ROSE GRADING Office Visit [facility] Maternal Medicine [facility] [address] [facility] [place] [address] Jesus Harmon MD [address] [place] [address] 12/26/2024 10:15 AM SUPERVISOR ROSE GRADING Appointment [facility] Maternal Medicine [facility] [address] [place] [phone] Jesus Harmon MD [address] [place] [address] 12/26/2024 10:45 AM SUPERVISOR ROSE [employer]ADING Office Visit [facility] Maternal Medicine [facility] [address] [place] [phone] Jesus Harmon MD [address] [place] [address] 12/28/2024 10:15 AM SUPERVISOR ROSE GRADING Appointment [facility] Maternal Medicine [facility] [address] [place] [phone] Diane Lopez MD [address] [place] [address] 12/28/2024 10:45 AM SUPERVISOR ROSE [employer]ADING Office Visit [facility] Maternal Medicine [facility] [address] [place] [phone] Diane Lopez MD [address] [place] [address] 01/11/2025 10:15 AM CDT Appointment [facility] Medicine [facility] [address] [place] [phone] Diane Lopez MD [address] [place] [address] 01/11/2025 10:45 AM CDT Office Visit [facility] Maternal Medicine [facility] [address] [place] [phone] Diane Lopez MD [address] [place] [address] documented as of this encounter Visit Diagnoses Not on filedocumented in this encounter Care Teams Skin Tanner Relationship Specialty Start Date End Date No Ref-Primary, Physician PCP - General 12/04/21 Flower Amato MD [address] [place] [address] Assigned OBGYN Provider 11/22/24 documented as of this encounter
--- OUTSIDE RECORDS SUMMARY | 2024-12-07 20:24 | XMS_ITS | Encounter Summary ---
Author Organization [facility] Address [address] [place] [address] Care Team Providers Care Pole Shaver Helper Name Role Phone No Ref-Primary, Physician Primary Care Provider Flower Amato MD Unavailable [phone] Reason for Referral * Diagnostic Imaging Ultrasound (Routine) - Pending Review Specialty Diagnoses / Procedures Referred By Noa lilly Referred To Contact Radiology. 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 Intrauterine growth restriction affecting antepartum care of mother in first trimester, fetus 2 Procedures MFM Twins Comprehensive F/U Nicole Núñez MD [address] [place] [address] Phone: tel: fax: Referral ID Status Reason Start Date Expiration Date V isits Requested Visits Authorized [id number] Pending Review 11/22/2024 11/22/2025 1 1 Encounter Details Date Type Department Care Team (Latest Contact Info) Description 12/05/2024 11:20 AM RETIREMENT OFFICER - 12/05/2024 11:59 PM RETIREMENT OFFICER Hospital Encounter [facility] [place] [address] [place] [address] Karin Esteban MD [address] [place], [place] [address] 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; Intrauterine growth restriction affecting antepartum care of mother in first trimester, fetus 2 Discharge Disposition: Home or Self Care Social [...] file Legal Sex Female 11:44 PM RETIREMENT OFFICER Gender Identity Not on file Sexual Orientation Not on file documented as of this encounter Medications at Time of Discharge acetaminophen (TYLENOL) 500 MG tabletIndications: Acute appendicitis with localized peritonitis, unspecified whether abscess present, unspecified whether gangrene present, unspecified whether perforation present Take 2 tablets (1,000 mg) by mouth every 6 hours as needed for pain 12/04/2021 IRON-VITAMINS PO Take by mouth. omeprazole (PRILOSEC) [address] capsule Take 20 mg by mouth daily. Vit-Fe Fumarate-FA ( VITAMINS PO) Take 1 tablet by mouth daily. documented as of this encounter Plan of Treatment Upcoming Encounters Date Type Department Care Team (Late st Contact Info) Description 12/10/2024 1:30 PM RETIREMENT OFFICER Appointment [facility] Maternal Medicine [facility] [address] [place] [address] Jesus Harmon MD [address] [place] [address] 12/10/2024 2:00 PM RETIREMENT OFFICER Office Visit [facility] [place] [address] [place] [address] Jesus Harmon MD [address] [place] [address] 12/10/2024 2:15 PM RETIREMENT OFFICER Office Visit [facility] [place] [address] [place] [address] Jesus Harmon MD [address] [place] [address] 12/12/2024 8:45 AM RETIREMENT OFFICER Appointment [facility] Maternal Medicine [facility] [address] [place] [address] Diane Lopez MD [address] [place] [address] 12/12/2024 9:15 AM RETIREMENT OFFICER Office Visit [facility] Maternal Medicine [facility] [address] [place] [address] Diane Lopez MD [address] [place] [address] 12/14/2024 1:30 PM RETIREMENT OFFICER Ancillary Procedure [facility] Maternal Medicine [address] [place] [address] Jesus Harmon MD [address] [place] [address] 12/14/2024 2:00 PM RETIREMENT OFFICER Office Visit [facility] Maternal Medicine [address] [place] [address] Jesus Harmon MD [address] [place] [address] 12/17/2024 12:45 PM RETIREMENT OFFICER Appointment [facility] [place] [address] [place] [phone] Jesus Harmon MD [address] [place] [address] 12/17/2024 1:15 PM RETIREMENT OFFICER Office Visit [facility] [place] [address] [place] [address] Jesus Harmon MD [address] [place] [address] 12/17/2024 1:30 PM RETIREMENT OFFICER Office Visit [facility] Maternal Medicine [facility] [address] [place] [address] Jesus Harmon MD [address] [place] [address] 12/19/2024 9:30 AM RETIREMENT OFFICER Appointment [facility] Maternal Medicine [facility] [address] [facility] [address] [place] [address] Nicole Núñez MD [address] [place] [address] Flower Amato MD [address] [place] [address] [address] 12/19/2024 10:00 AM RETIREMENT OFFICER Office Visit [facility] Maternal Medicine [facility] [address] [facility] [address] [place] [address] Nicole Núñez MD [address] [facility] [place] [address] Flower Amato MD [address] [facility] [address] [address] [address] 12/21/2024 11:45 AM RETIREMENT OFFICER Appointment [facility] Maternal Medicine [place] [address] [facility] [address] [place] [address] Jesus Harmon MD [address] [place] [address] Karin Esteban MD [address] [facility] [address] [address] 12/21/2024 12:15 PM RETIREMENT OFFICER Office Visit [facility] Maternal Medicine [place] [address] [facility] [address] [place] [address] Jesus Harmon MD [address] [place], [place] [phone] Karin Esteban MD [address] [facility] [address] [address] 12/24/2024 11:00 AM RETIREMENT OFFICER Appointment [facility] [place] [address] [facility] [place] [address] Jesus Harmon MD [address] [place], [place] [address] 12/24/2024 11:30 AM RETIREMENT OFFICER Office Visit [facility] [place] [address] [place] [address] Jesus Harmon MD [address] [place] [address] 12/24/2024 11:45 AM RETIREMENT OFFICER Office Visit [facility] Maternal Medicine [facility] [address] [place] [address] Jesus Harmon MD [address] [place] [address] 12/26/2024 10:15 AM RETIREMENT OFFICER Appointment [facility] Maternal Medicine [place] [address] [place] [phone] Jesus Harmon MD [address] [place] [address] 12/26/2024 10:45 AM RETIREMENT OFFICER Office Visit [facility] Maternal Medicine [place] [address] [place] [phone] Jesus Harmon MD [address] [place] [address] 12/28/2024 10:15 AM RETIREMENT OFFICER Appointment [facility] Maternal Medicine [place] [address] [place] [phone] Diane Lopez MD [address] [address] 12/28/2024 10:45 AM RETIREMENT OFFICER Office Visit [facility] Maternal Medicine [place] [address] [place] [phone] Diane Lopez MD [address] [address] 01/11/2025 10:15 AM CDT Appointment [facility] Maternal Medicine [place] [address] [place] [phone] Diane Lopez MD [address] [place], [place] [address] 01/11/2025 10:45 AM CDT Office Visit [facility] Maternal Medicine [facility] [address] [place] [phone] Diane Lopez MD [address] [place], [place] [address] documented as of this encounter Procedures Procedure Name Priority Date/Time Associated Diagnosis Comments MFM TWINS US COMPREHENSIVE F/U Routine 12/05/2024 12:28 PM RETIREMENT OFFICER 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 Narrative 12/05/2024 1:37 PM RETIREMENT OFFICER Surveillance US ----- Pat. Name: HEATHER CHÁVEZ Study Date: 12/05/2024 11:32am Pat. NO: [id number] Referring MD: PAMELA CUELLAR Site: Lab Tech: Piper Huynh RDMS : 1995 Age: 29 [...] the patient (reviewing medical records/tests), in direct ywik-kl-ijoy contact with the patient during the visit counseling and discussing the plan of care and documenting the visit in the electronic medical record. Procedure Note Jesus Harmon MD - 12/05/2024 [facility] US ----- Pat. Name: HEATHER CHÁVEZ Study Date: 12/05/2024 11:32am Pat. NO: [id number] Referring MD: PAMELA CUELLAR Site: Lab Tech: Piper Huynh RDMS : 1995 Age: 29 [...] see the patient(reviewing medical records/tests), in direct qsnq-kr-yjyu contact with the patient during the visitcounseling [...] in the a-wave today. Nicole Núñez MD [facility] Edited Result - Final documented [...] antepartum documented in this encounter Care Teams Pole Shaver Helper Relationship Specialty Start Date End Date No Ref-Primary, Physician PCP - General 12/04/21 Flower Amato MD [address] [place] [address] Assigned OBGYN Provider 11/22/24 documented as of this encounter
--- OUTSIDE RECORDS SUMMARY | 2024-12-07 20:24 | XMS_ITS | Encounter Summary ---
Author Organization [facility] Address [address] [place] [address] Care Team Providers Care Truck Headlight Assembler Name Role Phone No Ref-Primary, Physician Primary Care Provider Flower Amato MD Unavailable [phone] Reason for Visit * Reason Comments Ultrasound F/U comp with MCA/UA R to evaluate Encounter Details Date Type Department Care Team (Late st Contact Info) Description 12/07/2024 10:45 AM CONSOLE MANAGER Office Visit [facility] M[facility] [place] [address] [place] [address] Jaren Rodriguez MD [address] [place] [address] Poor growth affecting management of mother in second trimester, fetus 2 (Primary Dx); Monochorionic diamniotic twin , antepartum Social History [...] on file Legal Sex Female 11:44 PM CONSOLE MANAGER Gender Identity Not on file Sexual Orientation Not on file documented as of this encounter Progress Notes * Jaren Rodriguez MD - 12/07/2024 10:45 AM CST Met with patient and partner to discuss findigns but mostly to discuss management in setting of 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 Waveform on UA of fetus 2 consistent with cyclic changesof FGR Type III. I met with patient and her partner to review current plan of care in setting of current gestationalage and patient intent for full intervention as needed to prevent loss despite current gestational age. This is a monochorionic diamniotic twin complicated by growth restriction(FGR) in Twin B with last EFW fetus 1 at the 68th percentile, fetus 2 at the 2nd percentile with a 32.5% discordance. There is cyclic forward, absent, and reversed end-diastolic flow in the umbilicalartery (UA), normal middle cerebral artery (MCA) Doppler peak systolic velocity (PSV) in both fetuses, and normal ductus venosus (DV) A- wave in both fetuses. The patient presents for evaluation of a monochorionic twin gestation, which is inherently at increased risk for complications due to shared placental circulation. Monochorionicity itself confers a 10-15% risk of twin-twin transfusion syndrome (TTTS), a 5-10% risk of selective growth restriction (sFGR), and a 4-6% risk of twin anemia-polycythemia sequence (TAPS) (Gratac??s et al., 2018). Inthis case, the is complicated by selective FGR [...] is reassuring, as it suggests no evidence offetal anemia or compensatory cerebral redistribution at this [...] REDF develops and no intervention is undertaken (Gratac??s et al., 2018). The risk of sudden co-twin demise or neurological injury to the larger twin in cases of IUFD of the growth- restricted fetus is estimated to be 15-25%, largely [...] in the ductus venosus, or non-reassuring CTG). Themedian gestational age at delivery in cases of AREDF in sFGR is approximately 28-30 weeks (Radha et al., 2018), though survival rates at that gestational age exceed 85-90% with appropriate neonatalintensive care (Ridaron et al., 2012). Given the [...] B was discussed but is not currently recommendedgiven the stability of cardiac function and intent to intervene on behalf of both fetuses regardless of the prematurity that may be incurred from early delivery to both fetuses. The patient expressed understanding of the management plan and will return in three days for repeat Doppler assessment. References: Gratac??s E, et al. (2018). Selective intrauterine growth restriction in monochorionic twins. Best Practice & Research Clinical Obstetrics & Gynaecology, 49, 65-76. Vidal Calles, et al. (2010). The outcome of monochorionic diamniotic twin pregnancies with selective intrauterine growth restriction. [place] Journal of Obstetrics and Gynecology, 203(4), 333.e1-7. Radha HALL, et al. (2018). Consensus definition of growth restriction: A [place] procedure. Ultrasound in Obstetrics & Gynecology, 52(1), 24-29. Luisa M, et al. (2020). Twin complications: The risk of single intrauterine demisein monochorionic twins. Diagnosis, 40(9), 1863-0436. Boris Dennis, et al. (2012). mortality and [...] for persistently reversed REDF or AEDF for steroids,surveillance and possible delivery. Thank you for the opportunity to participate in the care of this patient. If you have questions regarding today's evaluation or if we can be of further service, please contact the Maternal- Medicine Center. Jaren Rodriguez M.D. Maternal Medicine 12/07/24 I personally spent a total of 60 minutes (EXCLUDING ANY ULTRASOUND INTERPRETATION), including both aazs-tt-mvtc and txr-gfzv-bq-face on the date of the encounter, addressing the above diagnosis. Activities performed in this time include chart review, obtaining / reviewing history, performing a medically necessary evaluation, documentation and Charge activities: counseling, care coordination, ordering tests, and reviewing results, equivalent to medical decision making that is of high complexity. OLE MANAGER documented in this encounter Nursing Notes * Joceline Multani, RN - 12/07/2024 10:45 AM CST Heather here with her and 2 children today for a F/U comp U/S with MCA and UAR dopplers due topreg c/b mono/di twins. Pt reports some increased heart burn and is now taking Omeprazole. Pt states she started this yesterday. Pt had U/S today. Dr. Rodriguez in to give results. F2 had intermittent reversal in UAR today. Pt has apt on Sunday 12/10 for 1st OBV and F/U comp with UAR/MCA. Pt to continue 3x weekly surveillance at this time. Pt left amb and stable. OLE MANAGER documented in this encounter Plan of Treatment Upcoming Encounters Date Type Department Care Team (Late st Contact Info) Description 12/10/2024 1:30 PM CONSOLE MANAGER Appointment [facility] Maternal Medicine Center [address] [address] Jesus Harmon MD [address] [place] [address] 12/10/2024 2:00 PM CONSOLE MANAGER Office Visit [facility] Medicine Center [address] [address] Jesus Harmon MD [address] [place] [address] 12/10/2024 2:15 PM CONSOLE MANAGER Office Visit [facility] Medicine Center [address] [address] Jesus Harmon MD [address] [place] [address] 12/12/2024 8:45 AM CONSOLE MANAGER Appointment [facility] Maternal Medicine [facility] [address] [facility] [address] [place] [phone] Diane Lopez MD [address] [place] [address] 12/12/2024 9:15 AM CONSOLE MANAGER Office Visit [facility] Maternal Medicine [facility] [address] [facility] [address] [place] [address] Diane Lopez MD [address] [facility] [address] [place] [address] 12/14/2024 1:30 PM CONSOLE MANAGER Ancillary Procedure [facility] Maternal Medicine [address] [place] [phone] Jesus Harmon MD [address] [place] [address] 12/14/2024 2:00 PM CONSOLE MANAGER Office Visit [facility] Maternal Medicine [address] [place] [phone] Jesus Harmon MD [address] [place] [address] 12/17/2024 12:45 PM CONSOLE MANAGER Appointment [facility] Maternal Medicine [facility] [address] [place] [phone] Jesus Harmon MD [address] [place] [address] 12/17/2024 1:15 PM CONSOLE MANAGER Office Visit [facility] Maternal Medicine [facility] [address] [place] [address] Jesus Harmon MD [address] [place] [address] 12/17/2024 1:30 PM CONSOLE MANAGER Office Visit [facility] Maternal Medicine [facility] [address] [place] [address] Jesus Harmon MD [address] [place] [address] 12/19/2024 9:30 AM CONSOLE MANAGER Appointment [facility] Maternal Medicine [place] [address] [place] [phone] Nicole Núñez MD [address] [facility] [place] [address] Flower Amato MD [address] [facility] [address] [address] 12/19/2024 10:00 AM CONSOLE MANAGER Office Visit [facility] Maternal Medicine [place] [address] [place] [phone] Nicole Núñez MD [address] [facility] [address] [place], [place] [address] Flower Amato MD [address] [facility] [address] [address] 12/21/2024 11:45 AM CONSOLE MANAGER Appointment [facility] Maternal Medicine [place] [address] [place] [phone] Jesus Harmon MD [address] [place] [address] Karin Esteban MD [address] [facility] [address] [address] 12/21/2024 12:15 PM CONSOLE MANAGER Office Visit [facility] Maternal Medicine [place] [address] [place] [phone] Jesus Harmon MD [address] [place] [address] Karin Esteban MD [address] [address] 12/24/2024 11:00 AM CONSOLE MANAGER Appointment [facility] [place] [address] [facility] [place] [address] Jesus Harmon MD [address] [place] [address] 12/24/2024 11:30 AM CONSOLE MANAGER Office Visit [facility] Maternal Medicine [facility] [address] [facility] [place] [address] Jesus Harmon MD [address] [place] [address] 12/24/2024 11:45 AM CONSOLE MANAGER Office Visit [facility] Maternal Medicine [facility] [address] [place] [address] Jesus Harmon MD [address] [place] [address] 12/26/2024 10:15 AM CONSOLE MANAGER Appointment [facility] Maternal Medicine [facility] [address] [place] [address] Jesus Harmon MD [address] [place] [address] 12/26/2024 10:45 AM CONSOLE MANAGER Office Visit [facility] Maternal Medicine [facility] [address] [place] [address] Jesus Harmon MD [address] [place] [address] 12/28/2024 10:15 AM CONSOLE MANAGER Appointment [facility] Maternal Medicine [facility] [address] [place] [address] Diane Lopez MD [address] [place] [address] 12/28/2024 10:45 AM CONSOLE MANAGER Office Visit [facility] Maternal Medicine [place] [address] [place] [phone] Diane Lopez MD [address] [place] [address] 01/11/2025 10:15 AM CDT Appointment [facility] Maternal Medicine [facility] [address] [place] [phone] Diane Lopez MD [address] [place] [address] 01/11/2025 10:45 AM CDT Office Visit [facility] Maternal Medicine [place] [address] [place] [phone] Diane Lopez MD [address] [place] [address] documented as of this encounter Visit Diagnoses Diagnosis Poor growth affecting management of mother in second trimester, fetus 2- Primary Monochorionic diamniotic twin , antepartum Twin , [...] antepartum documented in this encounter Care Teams Truck Headlight Assembler Relationship Specialty Start Date End Date No Ref-Primary, Physician PCP - General 12/04/21 Flower Amato MD [address] [place] [address] Assigned OBGYN Provider 11/22/24 documented as of this encounter
--- OUTSIDE RECORDS SUMMARY | 2024-12-07 20:24 | XMS_ITS | Encounter Summary ---
Author Organization [place] Address [address] [place] [address] Care Team Providers Care Financial Services Education Consultant Name Role Phone No Ref-Primary, Physician Primary Care Provider Flower Amato MD Unavailable [phone] Reason for Referral * Diagnostic Imaging Ultrasound (Routine) - Pending Review Specialty Diagnoses / Procedures Referred By Contac t Referred To Contact Radiology. Diagnoses Monochorionic diamniotic twin , antepartum Procedures MFM Twins Comprehensive F/U Jesus Harmon MD [address] [place] [address] Phone: tel: fax: Referral ID Status Reason Start Date Expiration Date V isits Requested Visits Authorized [id number] Pending Review 12/05/2024 12/05/2025 1 1 OGRAPH MACHINE OPERATOR Reason for Visit * Diagnostic Imaging Ultrasound (Routine) - Pending Review Specialty Diagnoses / Procedures Referred By Contac t Referred To Contact Radiology. Diagnoses Monochorionic diamniotic twin , antepartum Procedures MFM Twins Comprehensive F/U Jesus Harmon MD [address] [place] [address] Phone: tel: fax: Referral ID Status Reason Start Date Expiration Date V isits Requested Visits Authorized [id number] Pending Review 12/05/2024 12/05/2025 1 1 Encounter Details Date Type Department Care Team (Latest Contact Info) Description 12/07/2024 10:08 AM PANTOGRAPH MACHINE OPERATOR Hospital Encounter [facility] [place] [address] [place] [phone] Jaren Rodriguez MD [address] [facility] [address] [place], [place] [phone] Monochorionic diamniotic twin , antepartum Social History [...] on file Legal Sex Female 11:44 PM PANTOGRAPH MACHINE OPERATOR Gender Identity Not on file Sexual Orientation Not on file documented as of this encounter Plan of Treatment Upcoming Encounters Date Type Department Care Team (Late st Contact Info) Description 12/10/2024 1:30 PM PANTOGRAPH MACHINE OPERATOR Appointment [facility] [place] [address] [place] [phone] Jesus Harmon MD [address] [place], [place] [address] 12/10/2024 2:00 PM PANTOGRAPH MACHINE OPERATOR Office Visit [facility] [place] [address] [place], [place] [address] [place] [address] Jesus Harmon MD [address] [place], [place] [address] 12/10/2024 2:15 PM PANTOGRAPH MACHINE OPERATOR Office Visit [facility] [place] [address] [place] [address] Jesus Harmon MD [address] [place], [place] [address] 12/12/2024 8:45 AM PANTOGRAPH MACHINE OPERATOR Appointment [facility] Maternal Medicine [facility] [address] [place] [address] Diane Lopez MD [address] [place] [address] 12/12/2024 9:15 AM PANTOGRAPH MACHINE OPERATOR Office Visit [facility] [address] [place] [address] Diane Lopez MD [address] [place] [address] 12/14/2024 1:30 PM PANTOGRAPH MACHINE OPERATOR Ancillary Procedure [facility] [address] [place] [phone] Jesus Harmon MD [address] [place] [address] 12/14/2024 2:00 PM PANTOGRAPH MACHINE OPERATOR Office Visit [facility] [address] [place] [phone] Jesus Harmon MD [address] [place] [address] 12/17/2024 12:45 PM PANTOGRAPH MACHINE OPERATOR Appointment [facility] M[facility] [address] [place] [address] Jesus Harmon MD [address] [place] [address] 12/17/2024 1:15 PM PANTOGRAPH MACHINE OPERATOR Office Visit [facility] [address] [place] [address] Jesus Harmon MD [address] [place] [address] 12/17/2024 1:30 PM PANTOGRAPH MACHINE OPERATOR Office Visit [facility] [address] [place] [address] Jesus Harmon MD [address] [place] [address] 12/19/2024 9:30 AM PANTOGRAPH MACHINE OPERATOR Appointment [facility] [address] [place] [phone] Nicole Núñez MD [address] [place] [address] Flower Amato MD [address] [facility] [address] [address] 12/19/2024 10:00 AM PANTOGRAPH MACHINE OPERATOR Office Visit [facility] [address] [place] [phone] Nicole Núñez MD [address] [place] [phone] Flower Amato MD [address] [facility] [address] [address] 12/21/2024 11:45 AM PANTOGRAPH MACHINE OPERATOR Appointment [facility] Medicine [facility] [address] [place] [phone] Jesus Harmon MD [address] [place] [address] Karin Esteban MD [address] [place] [address] 12/21/2024 12:15 PM PANTOGRAPH MACHINE OPERATOR Office Visit [facility] [address] [facility] [address] [place] [address] Jesus Harmon MD [address] [place] [address] Karin Esteban MD [address] [facility] [address] [place] [address] 12/24/2024 11:00 AM PANTOGRAPH MACHINE OPERATOR Appointment [facility] [place] [address] [place] [address] Jesus Harmon MD [address] [place] [address] 12/24/2024 11:30 AM PANTOGRAPH MACHINE OPERATOR Office Visit [facility] [place] [address] [place] [address] Jesus Harmon MD [address] [place] [address] 12/24/2024 11:45 AM PANTOGRAPH MACHINE OPERATOR Office Visit [facility] [place] [address] [place] [address] Jesus Harmon MD [address] [place] [address] 12/26/2024 10:15 AM PANTOGRAPH MACHINE OPERATOR Appointment [facility] [address] [facility] [address] [place] [phone] Jesus Harmon MD [address] [place] [address] 12/26/2024 10:45 AM PANTOGRAPH MACHINE OPERATOR Office Visit [facility] [place] [address] [facility] [address] [place] [phone] Jesus Harmon MD [address] [place] [address] 12/28/2024 10:15 AM PANTOGRAPH MACHINE OPERATOR Appointment [facility] [place] [address] [facility] [address] [place] [phone] Diane Lopez MD [address] [place], [place] [address] 12/28/2024 10:45 AM PANTOGRAPH MACHINE OPERATOR Office Visit [facility] [place] [address] [facility] [address] [place] [phone] Diane Lopez MD [address] [place], [place] [address] 01/11/2025 10:15 AM CDT Appointment [facility] [place] [address] [facility] [address] [place] [phone] Diane Lopez MD [address] [place], [place] [address] 01/11/2025 10:45 AM CDT Office Visit [facility] [place] [address] [facility] [address] [place] [address] Diane Lopez MD [address] [place], [place] [address] documented as of this encounter Procedures Procedure Name Priority Date/Time Associated Diagnosis Comments MFM TWINS US COMPREHENSIVE F/U Routine 12/07/2024 11:40 AM PANTOGRAPH MACHINE OPERATOR Monochorionic diamniotic twin , antepartum documented in this encounter Results * MFM Twins US Comprehensive F/U (12/07/2024 11:40 AM PANTOGRAPH MACHINE OPERATOR) Anatomical Region Laterality Modality Ultrasound 12/07/2024 10:4 5 AM PANTOGRAPH MACHINE OPERATOR Impressions 12/07/2024 1:23 PM PANTOGRAPH MACHINE OPERATOR IMPRESSION ----- Patient here for growth assessment [...] bladder is visualized. Narrative 12/07/2024 1:23 PM PANTOGRAPH MACHINE OPERATOR [facility] Surveillance US ----- Pat. Name: DEANDRE CHÁVEZ Study Date: 12/07/2024 10:45am Pat. NO: [id number] Referring MD: PAMELA CUELLAR Site: Hand Ii Tube Bender: Kenyetta Lyons RDMS : 1995 Age: 29 [...] twin pregnancies with selective intrauterine growth restriction. [place] Journal of Obstetrics and Gynecology, 203(4), 333.e1-7. ? Radha HALL, et al. (2018). Consensus definition of growth restriction: A Henderson procedure. Ultrasound in Obstetrics & Gynecology, 52(1), 24-29. ? Luisa Dennis et al. (2020). Twin complications: The risk of single intrauterine demise in monochorionic twins. Diagnosis, 40(9), 5607-1972. ? Boris Dennis et al. (2012). mortality and morbidity in [...] 12/07/2024 Surveillance US ----- Pat. Name: DEANDRE CHÁVEZ Study Date: 12/07/2024 10:45am Pat. NO: [id number] Referring MD: PAMELA CUELLAR Site: Hand Ii Tube Bender: Kenyetta Lyons RDMS : 1995 Age: 29 [...] 4-6% risk of twin anemia-polycythemia sequence (TAPS) (Nanod shearer et al., 2018). In thiscase, the [...] develops and no intervention is undertaken (Nando s etal., 2018). The risk of sudden co-twin [...] in cases of AREDF in sFGR is oduwyirxojnqx53-92 weeks (Radha et al., 2018), though survival [...] al. (2018). Consensus definition of growthrestriction: A Henderson procedure. Ultrasound in Obstetrics & Gynecology,52(1), 24-29. ? Luisa Dennis, et al. (2020). Twin complications: The risk ofsingle intrauterine demise in monochorionic twins. PrenatalDiagnosis, 40(9), 1936-0606. ? Boris Dennis, et al. (2012). mortality and morbidity inmonochorionic [...] normal with forwardflow. 5) bladder is visualized. Jesus Harmon MD [facility] ORDER[facility]LES Edited Result - Final documented [...] antepartum documented in this encounter Care Teams Financial Services Education Consultant Relationship Specialty Start Date End Date No Ref-Primary, Physician PCP - General 12/04/21 Flower Amato MD [address] [address] Assigned OBGYN Provider 11/22/24 documented as of this encounter
--- OUTSIDE RECORDS SUMMARY | 2024-12-07 20:24 | XMS_ITS | Encounter Summary ---
Author Organization [place] Address [address] [place] [address] Care Team Providers Care Well Logging Captain Mud Analysis Name Role Phone No Ref-Primary, Physician Primary Care Provider Flower Amato MD Unavailable [phone] Encounter Details Date Type Department Care Team (Late Contact Info) Description 12/04/2024 MyC Medical Advice [facility] [place] [address] [place], [place] [address] Joceline Bejarano RN Social History Tobacco Use Types Packs/Day Years [...] on file Legal Sex Female 11:44 PM PATIENT ACCOUNTS COORDINATOR Gender Identity Not on file Sexual Orientation Not on file documented as of this encounter Plan of Treatment Upcoming Encounters Date Type Department Care Team (Late Contact Info) Description 12/10/2024 1:30 PM PATIENT ACCOUNTS COORDINATOR Appointment [facility] [place] [address] [phone] Jesus Harmon MD [address] [place] [address] 12/10/2024 2:00 PM PATIENT ACCOUNTS COORDINATOR Office Visit [facility] [place] [address] [address] Jesus Harmon MD [address] [place] [address] 12/10/2024 2:15 PM PATIENT ACCOUNTS COORDINATOR Office Visit [facility] [place] [address] [address] Jesus Harmon MD [address] [place] [address] 12/12/2024 8:45 AM PATIENT ACCOUNTS COORDINATOR Appointment [facility] M[facility] Medicine [facility] [address] [place] [phone] Diane Lopez MD [address] [place] [address] 12/12/2024 9:15 AM PATIENT ACCOUNTS COORDINATOR Office Visit [facility] Maternal Medicine [facility] [address] [place] [phone] Diane Lopez MD [address] [facility] [address] [place] [address] 12/14/2024 1:30 PM PATIENT ACCOUNTS COORDINATOR Ancillary Procedure [facility] Maternal Medicine [address] [place] [phone] Jesus Harmon MD [address] [place] [address] 12/14/2024 2:00 PM PATIENT ACCOUNTS COORDINATOR Office Visit [facility] Maternal Medicine [address] [place] [phone] Jesus Harmon MD [address] [place] [address] 12/17/2024 12:45 PM PATIENT ACCOUNTS COORDINATOR Appointment [facility] [place] 606 [facility] [place] [place] [address] Jesus Harmon MD [address] [place] [address] 12/17/2024 1:15 PM PATIENT ACCOUNTS COORDINATOR Office Visit [facility] Maternal Medicine [facility] [address] [place] [address] Jesus Harmon MD [address] [place] [address] 12/17/2024 1:30 PM PATIENT ACCOUNTS COORDINATOR Office Visit [facility] Maternal Medicine [facility] [address] [place] [place] [address] Jesus Harmon MD [address] [place] [address] 12/19/2024 9:30 AM PATIENT ACCOUNTS COORDINATOR Appointment [facility] Maternal Medicine [facility] [address] [facility] [address] [place] [phone] Nicole Núñez MD 606 [facility] [place], [place] [address] Flower Amato MD [address] [facility] [address] [place], [place] [address] 12/19/2024 10:00 AM PATIENT ACCOUNTS COORDINATOR Office Visit [facility] Maternal Medicine [facility] [address] [facility] [address] [place] [phone] Nicole Núñez MD [address] [facility] [address] [place], [place] [address] Flower Amato MD [address] [address] 12/21/2024 11:45 AM PATIENT ACCOUNTS COORDINATOR Appointment [facility] [address] [facility] [address] [place] [address] Jesus Harmon MD [address] [place] [address] Karin Esteban MD [address] [facility] [address] [address] 12/21/2024 12:15 PM PATIENT ACCOUNTS COORDINATOR Office Visit [facility] Maternal Medicine [facility] [address] [facility] [address] [place] [address] Jesus Harmon MD [address] [place] [address] Karin Esteban MD 606 [facility] [address] [address] 12/24/2024 11:00 AM PATIENT ACCOUNTS COORDINATOR Appointment [facility] [place] [address] [place] [address] Jesus Harmon MD [address] [place] [address] 12/24/2024 11:30 AM PATIENT ACCOUNTS COORDINATOR Office Visit [facility] [place] [address] [facility] [place] [address] Jesus Harmon MD [address] [place] [address] 12/24/2024 11:45 AM PATIENT ACCOUNTS COORDINATOR Office Visit [facility] [place] [address] [address] Jesus Harmon MD [address] [place] [address] 12/26/2024 10:15 AM PATIENT ACCOUNTS COORDINATOR Appointment [facility] [place] [address] [place] [phone] Jesus Harmon MD [address] [place] [address] 12/26/2024 10:45 AM PATIENT ACCOUNTS COORDINATOR Office Visit [facility] M[facility] [place] [address] [place] [phone] Jesus Harmon MD [address] [place] [address] 12/28/2024 10:15 AM PATIENT ACCOUNTS COORDINATOR Appointment [facility] M[facility] Medicine [place] [address] [place] [phone] Diane Lopez MD [address] [place] [address] 12/28/2024 10:45 AM PATIENT ACCOUNTS COORDINATOR Office Visit [facility] [place] [address] [place] [phone] Diane Lopez MD [address] [place] [address] 01/11/2025 10:15 AM CDT Appointment [facility] [place] [address] [place] [phone] Diane Lopez MD [address] [place], [place] [address] 01/11/2025 10:45 AM CDT Office Visit [facility] Maternal Medicine [facility] [address] [facility] [address] [place] [address] Diane Lopez MD [address] [place], [place] [address] documented as of this encounter Visit Diagnoses Not on filedocumented in this encounter Care Teams Well Logging Captain Mud Analysis Relationship Specialty Start Date End Date No Ref-Primary, Physician PCP - General 12/04/21 Flower Amato MD [address] [place], [place] [address] Assigned OBGYN Provider 11/22/24 documented as of this encounter
--- OUTSIDE RECORDS SUMMARY | 2024-12-07 20:25 | XMS_ITS | Encounter Summary ---
Author Organization [place] Address [address] [place] [address] Care Team Providers Care Library Information Technician Name Role Phone No Ref-Primary, Physician Primary Care Provider Encounter Details Date Type Department Care Team (Late st Contact Info) Description 10/09/2024 Medical Correspondence [facility] Health Information Management [address] [facility] [facility] [address] [place] [address] Scan, Non-Provider Social History Tobacco Use Types [...] on file Legal Sex Female 11:44 PM COMPRESSED AIR PILE DRIVER OPERATOR Gender Identity Not on file Sexual Orientation Not on file documented as of this encounter Plan of Treatment Upcoming Encounters Date Type Department Care Team (Late st Contact Info) Description 12/10/2024 1:30 PM COMPRESSED AIR PILE DRIVER OPERATOR Appointment [facility] [place] [address] [phone] Jesus Harmon MD [address] [place] [address] 12/10/2024 2:00 PM COMPRESSED AIR PILE DRIVER OPERATOR Office Visit [facility] [place] [address] [place], [place] [address] Jesus Harmon MD [address] [place] [address] 12/10/2024 2:15 PM COMPRESSED AIR PILE DRIVER OPERATOR Office Visit [facility] Maternal Medicine [facility] [address] [place] [address] Jesus Harmon MD [address] [place] [address] 12/12/2024 8:45 AM COMPRESSED AIR PILE DRIVER OPERATOR Appointment [facility] Maternal Medicine [facility] [address] [place] [address] Diane Lopez MD [address] [facility] [address] [place] [address] 12/12/2024 9:15 AM COMPRESSED AIR PILE DRIVER OPERATOR Office Visit [facility] Maternal Medicine [facility] [address] [place] [address] Diane Lopez MD [address] [facility] [address] [address] 12/14/2024 1:30 PM COMPRESSED AIR PILE DRIVER OPERATOR Ancillary Procedure [facility] Maternal Medicine [address] [phone] Jesus Harmon MD [address] [place] [address] 12/14/2024 2:00 PM COMPRESSED AIR PILE DRIVER OPERATOR Office Visit [facility] M[facility] Medicine [address] [phone] Jesus Harmon MD [address] [place] [address] 12/17/2024 12:45 PM COMPRESSED AIR PILE DRIVER OPERATOR Appointment [facility] [place] [address] [place] [address] Jesus Harmon MD [address] [place] [address] 12/17/2024 1:15 PM COMPRESSED AIR PILE DRIVER OPERATOR Office Visit [facility] [place] [address] [address] Jesus Harmon MD [address] [place] [address] 12/17/2024 1:30 PM COMPRESSED AIR PILE DRIVER OPERATOR Office Visit [facility] Maternal Medicine [facility] [address] [address] Jesus Harmon MD [address] [place] [address] 12/19/2024 9:30 AM COMPRESSED AIR PILE DRIVER OPERATOR Appointment [facility] Maternal Medicine [facility] [address] [place] [phone] Nicole Núñez MD [address] [place], [place] [address] Flower Amato MD [address] [facility] [address] [place] [address] 12/19/2024 10:00 AM COMPRESSED AIR PILE DRIVER OPERATOR Office Visit [facility] Maternal Medicine [facility] [address] [place] [phone] Nicole Núñez MD [address] [address] Flower Amato MD [address] [place] [address] 12/21/2024 11:45 AM COMPRESSED AIR PILE DRIVER OPERATOR Appointment [facility] Maternal Medicine [facility] [address] [facility] [address] [place] [address] Jesus Harmon MD [address] [place] [address] Karin Esteban MD [address] [place] [address] 12/21/2024 12:15 PM COMPRESSED AIR PILE DRIVER OPERATOR Office Visit [facility] Maternal [facility] [address] [facility] [address] [place] [address] Jesus Harmon MD [address] [place] [address] Karin Esteban MD [address] [place] [address] 12/24/2024 11:00 AM COMPRESSED AIR PILE DRIVER OPERATOR Appointment [facility] [place] [address] [place] [phone] Jesus Harmon MD [address] [place] [address] 12/24/2024 11:30 AM COMPRESSED AIR PILE DRIVER OPERATOR Office Visit [facility] [place] [address] [place] [address] Jesus Harmon MD [address] [place] [address] 12/24/2024 11:45 AM COMPRESSED AIR PILE DRIVER OPERATOR Office Visit [facility] [place] [address] [facility] [place] [address] Jesus Harmon MD [address] [place] [address] 12/26/2024 10:15 AM COMPRESSED AIR PILE DRIVER OPERATOR Appointment [facility] Maternal Medicine [place] [address] [place] [phone] Jesus Harmon MD [address] [place] [address] 12/26/2024 10:45 AM COMPRESSED AIR PILE DRIVER OPERATOR Office Visit [facility] Medicine [place] [address] [place] [phone] Jesus Harmon MD [address] [place] [address] 12/28/2024 10:15 AM COMPRESSED AIR PILE DRIVER OPERATOR Appointment [facility]aternal Medicine [place] [address] [place] [phone] Diane Lopez MD [address] [place] [address] 12/28/2024 10:45 AM COMPRESSED AIR PILE DRIVER OPERATOR Office Visit [facility] M[facility] Medicine [place] [address] [place] [phone] Diane Lopez MD [address] [place] [address] 01/11/2025 10:15 AM CDT Appointment [facility] M[facility] Medicine [place] [address] [place] [phone] Diane Lopez MD [address] [place] [address] 01/11/2025 10:45 AM CDT Office Visit [facility] [place] [address] [facility] [address] [place] [phone] Diane Lopez MD [address] [place] [address] documented as of this encounter Visit Diagnoses Not on filedocumented in this encounter Care Teams Library Information Technician Relationship Specialty Start Date End Date No Ref-Primary, Physician PCP - General 12/04/21 documented as of this encounter
--- OUTSIDE RECORDS SUMMARY | 2024-12-07 20:25 | XMS_ITS | Clinical Summary ---
Author Organization [facility] Address [address] [place] [address] Care Team Providers Care Coil Connector Name Role Phone Arslan Mckoy MD Primary Care Provider Ladonna calderon Source Comments You are receiving this document as you are listed as the primary care provider,follow-up provider, or the patient has been referred to you for consultation.This is in compliance with the Medicare and[facility] EHR Incentive Program,which states Providers who transition their patient to another setting of careor provider of care or refers their patient to another provider of care shouldprovide summary care record for each transition of care or referral. [facility] Allergies No known active allergies Medications Medication Sig Dispensed Refills Start Date End Date Status Vlgapzsi-FnMok-BM-DHA w/o A ( + DHA OR) Active [...] Comments Blood Pressure 117/62 10/05/2018 10:40 AM COLLOID MILL OPERATOR Pulse 76 10/05/2018 10:40 AM COLLOID MILL OPERATOR Temperature - - Respiratory Rate - - Oxygen Saturation - - Inhaled Oxygen Concentration - - Weight 73.5 kg (162 lb) 10/05/2018 10:40 AM COLLOID MILL OPERATOR Height 166.4 cm (5' 5.5) 10/05/2018 10:40 AM CS T Body Mass Index 26.55 10/05/2018 10:40 AM COLLOID MILL OPERATOR Plan of Treatment Health Maintenance Due [...] AND HIV-1/HIV-2 ANTIBODIES Routine 09/07/2018 12:05 PM COLLOID MILL OPERATOR Screening examination for venereal disease CHLAMYDIA & GC, URINE (14 YEARS AND OLDER) Routine 09/07/2018 11:59 AM COLLOID MILL OPERATOR Screening examination for venereal disease from Last 3 Months or Most Recently Relevant to Health Maintenance Results * LAB HIV-1 p24 AND HIV-1/HIV-2 ANTIBODIES (09/07/2018 12:05 PM COLLOID MILL OPERATOR) HIV-1 p24 Ag and HIV-1/HIV-2 Ab Nonreactive Nonreactive PN SOFT 09/07/2018 12:0 5 PM COLLOID MILL OPERATOR 09/07/2018 12:16 PM COLLOID MILL OPERATOR Narrative PN SOFT - 09/07/2018 1:26 PM COLLOID MILL OPERATOR Performed at [address] [address] CLIA number [id number] Angela Lyons APRN, CNM LAB_1 Performing Organization Address [facility] Co de Phone Number PN [employer] [place] [address] [place] [phone] * CHLAMYDIA & GC, URINE (09/07/2018 11:59 AM COLLOID MILL OPERATOR) Pathologist [facility] Urine Chlamydia STD Negative Negative PN SOFT Comment: Test Performed by Entrepreneurial Finance Professor Mediated Amplification Results obtained from this source are not FDA approved. CLIA Number [id number] Urine N. gonnorrhoeae STD Negative Negative PN SOFT Comment: Test Performed by Entrepreneurial Finance Professor Mediated Amplification Results obtained from this source are not FDA approved. Performed at [facility] [address] [place] [address] CLIA Number [id number] 09/07/2018 11:5 9 AM COLLOID MILL OPERATOR 09/07/2018 12:17 PM COLLOID MILL OPERATOR Angela Lyons APRN, CNM LAB_1 Performing Organization Address City/[facility]/ZIP Co de Phone Number [facility] [place] [address] [place] [address] from Last 3 Months or Most Recently Relevant to Health Maintenance Care Teams Coil Connector Relationship Specialty Start Date End Date Arslan Mckoy MD PCP - General Family Practice 09/09/17
--- OUTSIDE RECORDS SUMMARY | 2024-12-07 20:25 | XMS_ITS | Encounter Summary ---
Author Organization [place] Address [address] [place] [address] Care Team Providers Care Honing Machine Set Up Operator Tool Name Role Phone No Ref-Primary, Physician Primary Care Provider Reason for Referral * Diagnostic Imaging Ultrasound (Routine) - Pending Review Specialty Diagnoses / Procedures Referred By Noa lilly Referred To Contact Radiology. Diagnoses Monochorionic diamniotic twin gestation Procedures MFM Twins US Comprehensive F/U Diane Lopez MD [address] [place] [address] Phone: tel: fax: Referral ID Status Reason Start Date Expiration Date V isits Requested Visits Authorized [id number] Pending Review 10/19/2024 10/19/2025 1 1 TY SUPERVISOR Reason for Visit * Diagnostic Imaging Ultrasound (Routine) - Pending Review Specialty Diagnoses / Procedures Referred By Noa lilly Referred To Contact Radiology. Diagnoses Monochorionic diamniotic twin gestation Procedures MFM Twins US Alivia F/U Diane Lopez MD [address] [place] [address] Phone: tel: fax: Referral ID Status Reason Start Date Expiration Date V isits Requested Visits Authorized [id number] Pending Review 10/19/2024 10/19/2025 1 1 Encounter Details Date Type Department Care Team (Latest Contact Info) Description 11/02/2024 1:22 PM SAFETY SUPERVISOR - 11/02/2024 11:59 PM SAFETY SUPERVISOR Hospital Encounter [facility] [place] [address] [place] [address] Diane Lopez MD [address] [place], [place] [phone] Flor Dickson MD [address] [place] [address] Monochorionic diamniotic twin gestation in [...] on file Legal Sex Female 11:44 PM SAFETY SUPERVISOR Gender Identity Not on file Sexual [...] st Contact Info) Description 12/10/2024 1:30 PM SAFETY SUPERVISOR Appointment [facility] [place] [address] [place] [phone] Jesus Harmon MD [address] [place] [address] 12/10/2024 2:00 PM SAFETY SUPERVISOR Office Visit [facility] [address] [place] [address] Jesus Harmon MD [address] [place] [address] 12/10/2024 2:15 PM SAFETY SUPERVISOR Office Visit [facility] [place] [address] [place] [address] Jesus Harmon MD [address] [place] [address] 12/12/2024 8:45 AM SAFETY SUPERVISOR Appointment [facility] [address] [place] [phone] Diane Lopez MD [address] [place] [phone] 12/12/2024 9:15 AM SAFETY SUPERVISOR Office Visit [facility] [address] [place] [phone] Diane Lopez MD [address] [address] 12/14/2024 1:30 PM SAFETY SUPERVISOR Ancillary Procedure [facility] [address] [phone] Jesus Harmon MD [address] [place] [address] 12/14/2024 2:00 PM SAFETY SUPERVISOR Office Visit [facility] [address] [phone] Jesus Harmon MD [address] [place] [address] 12/17/2024 12:45 PM SAFETY SUPERVISOR Appointment [facility] [address] [place] [address] Jesus Harmon MD [address] [place] [address] 12/17/2024 1:15 PM SAFETY SUPERVISOR Office Visit [facility] [address] [address] Jesus Harmon MD [address] [place] [address] 12/17/2024 1:30 PM SAFETY SUPERVISOR Office Visit [facility] [address] [address] Jesus Harmon MD [address] [place] [address] 12/19/2024 9:30 AM SAFETY SUPERVISOR Appointment [facility] [address] [place] [address] Nicole Núñez MD [address] [place] [address] Flower Amato MD [address] [address] 12/19/2024 10:00 AM SAFETY SUPERVISOR Office Visit [facility] [place] [address] [place] [address] Nicole Núñez MD [address] [place] [address] Flower Amato MD [address] [address] 12/21/2024 11:45 AM SAFETY SUPERVISOR Appointment [facility] [place] [address] [place] [phone] Jesus Harmon MD [address] [place] [address] Karin Esteban MD [address] [address] 12/21/2024 12:15 PM SAFETY SUPERVISOR Office Visit [facility] [place] [address] [place] [address] Jesus Harmon MD [address] [place] [address] Karin Esteban MD [address] [address] 12/24/2024 11:00 AM SAFETY SUPERVISOR Appointment [facility] [place] [address] [place] [address] Jesus Harmon MD [address] [place] [address] 12/24/2024 11:30 AM SAFETY SUPERVISOR Office Visit [facility] [place] [address] [place] [address] Jesus Harmon MD [address] [place], [place] [address] 12/24/2024 11:45 AM SAFETY SUPERVISOR Office Visit [facility] [place] [address] [place] [address] Jesus Harmon MD [address] [place], [place] [address] 12/26/2024 10:15 AM SAFETY SUPERVISOR Appointment [facility] [place] [address] [place] [phone] Jesus Harmon MD [address] [place] [address] 12/26/2024 10:45 AM SAFETY SUPERVISOR Office Visit [facility] [address] [place] [phone] Jesus Harmon MD [address] [place], [place] [address] 12/28/2024 10:15 AM SAFETY SUPERVISOR Appointment [facility] [address] [place] [phone] Diane Lopez MD [address] [address] 12/28/2024 10:45 AM SAFETY SUPERVISOR Office Visit [facility] [address] [place] [address] Diane Lopez MD [address] [place] [address] 01/11/2025 10:15 AM CDT Appointment [facility] [place] [address] [place] [phone] Diane Lopez MD [address] [place] [address] 01/11/2025 10:45 AM CDT Office Visit [facility] [place] [address] [place] [phone] Diane Lopez MD [address] [place] [address] documented as of this encounter Procedures Procedure Name Priority Date/Time Associated Diagnosis Comments MFM TWINS US COMPREHENSIVE F/U Routine 11/02/2024 2:26 PM SAFETY SUPERVISOR 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 Narrative 11/03/2024 10:38 AM [facility] Surveillance US ----- Pat. Name: HEATHER CHÁVEZ Study Date: 11/02/2024 1:30pm Pat. NO: [id number] Referring MD: PAMELA CUELLAR Site: Separator Operator [employer]: Pennie Bradlye RDMS : 1995 Age: 29 ----- INDICATION [...] the patient (reviewing medical records/tests), in direct hkjo-cg-jtux contact with the patient during the visit counseling and discussing the plan of care and documenting the visit in the electronic medical record. Procedure Note Flor Dickson MD - 11/03/2024 [facility] US ----- Pat. Name: HEATHER CHÁVEZ Study Date: 11/02/2024 1:30pm Pat. NO: [id number] Referring MD: PAMELA CUELLAR Site: Separator Operator [employer]: Pennie Bradley RDMS : 1995 Age: 29 [...] see the patient(reviewing medical records/tests), in direct scmz-lr-rluj contact with the patient during the visitcounseling [...] anemia polycythemia syndrome. us Diane Lopez MD [facility] ORDERABLES Edited Result - Final documented [...] antepartum documented in this encounter Care Teams Honing Machine Set Up Operator Tool Relationship Specialty Start Date End Date No Ref-Primary, Physician PCP - General 12/04/21 documented as of this encounter
--- OUTSIDE RECORDS SUMMARY | 2024-12-07 20:25 | XMS_ITS | Encounter Summary ---
Author Organization [place] Address [address] [place] [address] Care Team Providers Care Slat Basket Maker Helper Machine Name Role Phone No Ref-Primary, Physician Primary Care Provider Reason for Visit * Diagnostic Imaging Ultrasound (Routine) - Pending Review Specialty Diagnoses / Procedures Referred By Contac t Referred To Contact Radiology. Diagnoses Monochorionic diamniotic twin gestation Procedures MFM Twins US Comprehensive F/U Diane Lopez MD [address] [place] [address] [address] [place] [address] Phone: tel: fax: Referral ID Status Reason Start Date Expiration Date V isits Requested Visits Authorized [id number] Pending Review 10/19/2024 10/19/2025 1 1 Encounter Details Date Type Department Care Team (Latest Contact Info) Description 10/26/2024 11:00 AM COMPANY DOCTOR Ancillary Procedure [facility] [address] [place] [phone] Estrella Esteban MD [address] [place] [address] [address] [place], [place] [address] Monochorionic diamniotic twin gestation in second trimester [...] on file Legal Sex Female 11:44 PM COMPANY DOCTOR Gender Identity Not on file Sexual Orientation Not on file documented as of this encounter Plan of Treatment Upcoming Encounters Date Type Department Care Team (Late st Contact Info) Description 12/10/2024 1:30 PM COMPANY DOCTOR Appointment [facility] [place] [address] [place] [address] Jesus Harmon MD [address] [place], [place] [address] 12/10/2024 2:00 PM COMPANY DOCTOR Office Visit [facility] [place] [address] [place] [address] Jesus Harmon MD [address] [place] [address] 12/10/2024 2:15 PM COMPANY DOCTOR Office Visit [facility] [place] [address] [place] [address] Jesus Harmon MD [address] [place] [address] 12/12/2024 8:45 AM COMPANY DOCTOR Appointment [facility] [address] [place] [phone] Diane Lopez MD [address] [address] 12/12/2024 9:15 AM COMPANY DOCTOR Office Visit [facility] [place] [address] [place] [phone] Diane Lopez MD [address] [address] 12/14/2024 1:30 PM COMPANY DOCTOR Ancillary Procedure [facility] [address] [place] [address] Jesus Harmon MD [address] [place] [address] 12/14/2024 2:00 PM COMPANY DOCTOR Office Visit [facility] [address] [phone] Jesus Harmon MD [address] [place] [address] 12/17/2024 12:45 PM COMPANY DOCTOR Appointment [facility] [address] [place] [address] Jesus Harmon MD [address] [place] [address] 12/17/2024 1:15 PM COMPANY DOCTOR Office Visit [facility] [address] [place] [address] Jesus Harmon MD [address] [place] [address] 12/17/2024 1:30 PM COMPANY DOCTOR Office Visit [facility] [place] [address] [place] [address] Jesus Harmon MD [address] [place] [address] 12/19/2024 9:30 AM COMPANY DOCTOR Appointment [facility] [address] [facility] [address] [place] [phone] Nicole Núñez MD [address] [place] [address] Flower Amato MD [address] [facility] [address] [address] 12/19/2024 10:00 AM COMPANY DOCTOR Office Visit [facility] [address] [place] [address] Nicole Núñez MD [address] [facility] [place] [address] Flower Amato MD [address] [facility] [address] 12/21/2024 11:45 AM COMPANY DOCTOR Appointment [facility] [address] [place] [address] Jesus Harmon MD [address] [place], [place] [address] Karin Esteban MD [address] [address] 12/21/2024 12:15 PM COMPANY DOCTOR Office Visit [facility] [address] [place] [address] Jesus Harmon MD [address] [place], [place] [address] Karin Esteban MD [address] [facility] [address] [address] 12/24/2024 11:00 AM COMPANY DOCTOR Appointment [facility] [place] [address] [place] [address] Jesus Harmon MD [address] [place] [address] 12/24/2024 11:30 AM COMPANY DOCTOR Office Visit [facility] [place] [address] [place] [address] Jesus Harmon MD [address] [place] [address] 12/24/2024 11:45 AM COMPANY DOCTOR Office Visit [facility] [place] [address] [place] [address] Jesus Harmon MD [address] [place] [address] 12/26/2024 10:15 AM COMPANY DOCTOR Appointment [facility] [address] [place] [phone] Jesus Harmon MD [address] [place] [address] 12/26/2024 10:45 AM COMPANY DOCTOR Office Visit [facility] [address] [place] [phone] Jesus Harmon MD [address] [place] [address] 12/28/2024 10:15 AM COMPANY DOCTOR Appointment [facility] [address] [place] [phone] Diane Lopez MD [address] [address] 12/28/2024 10:45 AM COMPANY DOCTOR Office Visit [facility]aternal [facility] [address] [place] [phone] Diane Lopez MD [address] [place] [address] 01/11/2025 10:15 AM CDT Appointment [facility] [address] [place] [phone] Diane Lopez MD [address] [place], [place] [phone] 01/11/2025 10:45 AM CDT Office Visit [facility] Medicine [place] [address] [place] [phone] Diane Lopez MD [address] [place], [place] [phone] documented as of this encounter Procedures Procedure Name Priority Date/Time Associated Diagnosis Comments MFM TWINS US COMPREHENSIVE F/U Routine 10/26/2024 11:48 AM COMPANY DOCTOR 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 Narrative 10/26/2024 1:47 PM COMPANY DOCTOR [facility] US ----- Pat. Name: DEANDRE CHÁVEZ Study Date: 10/26/2024 11:05am Pat. NO: [id number] Referring MD: PAMELA CUELLAR Site: Wastewater Treatment Plant Operator: Drea Varela RDMS : 1995 Age: 29 [...] reviewed the option to consult with the [place] [facility] to discuss the option of SLFP further. At this time, they wish to continue expectant management as they would not consider termination. We also reviewed the possibility of prolonged antepartum admission at the time they are accepting of intervention if the continues to advance. They understand that admission would be recommended at [facility]. We reviewed the difficult decisions that may [...] the patient (reviewing medical records/tests), in direct mzft-oq-rzgy contact with the patient during the visit counseling and discussing the plan of care and documenting the visit in the electronic medical record. Procedure Note Estrella Esteban MD - 10/26/2024 [facility] ----- Pat. Name: DEANDRE CHÁVEZ Study Date: 10/26/2024 11:05am Pat. NO: [id number] Referring MD: PAMELA CUELLAR Site: Wastewater Treatment Plant Operator: Drea Varela RDMS : 1995 Age: 29 [...] reviewed the option to consult with the [place] [facility] to discuss theoption of SLFP further. At this time, they wish to continue expectantmanagement as they would not consider termination. We also reviewed the possibility of prolongedantepartum admission at the time they are accepting of intervention if thepregnancy continues to advance. They understand that admission would be [facility] at [facility]. We reviewed the difficult decisions that may [...] see the patient(reviewing medical records/tests), in direct qbge-xt-jfhz contact with the patient during the visitcounseling [...] demonstrate increased MCAPSV. us Diane Lopez MD [facility] ORDERABLES Edited Result - Final documented [...] antepartum documented in this encounter Care Teams Slat Basket Maker Helper Machine Relationship Specialty Start Date End Date No Ref-Primary, Physician PCP - General 12/04/21 documented as of this encounter
--- OUTSIDE RECORDS SUMMARY | 2024-12-07 20:25 | XMS_ITS | Encounter Summary ---
Author Organization [facility] Address [address] [place] [address]. [place] [address] Care Team Providers Care Jet Aircraft Servicer Name Role Phone No Ref-Primary, Physician Primary Care Provider Reason for Visit * Reason Comments Ultrasound TTTS, MCA/UAR for mo no/di twins Encounter Details Date Type Department Care Team (Late st Contact Info) Description 10/26/2024 11:30 AM WELDING PRODUCTION SUPERVISOR Office Visit [facility] M[facility] Medicine Center [address] [phone] Estrella Esteban MD [address] [facility] [address] [place], [place] [phone] Monochorionic diamniotic twin gestation in second trimester [...] on file Legal Sex Female 11:44 PM WELDING PRODUCTION SUPERVISOR Gender Identity Not on file Sexual Orientation Not on file documented as of this encounter Progress Notes * Estrella Esteban MD - 10/26/2024 11:30 AM CST The patient was seen for an ultrasound in the [facility] today. For a detailed report of the ultrasound examination, please see the ultrasound report which can be found under the imaging tab. If you have questions regarding today's evaluation or if we can be of further service, please contact the Maternal- Medicine Center. Estrella Esteban MD Maternal Medicine ING PRODUCTION SUPERVISOR documented in this encounter Nursing Notes * Leonor Allen RN - 10/26/2024 11:30 AM CST Heather Chávez is a at 16w5d who presents to [facility] for a TTTS check for mono/di twins. Pt reports positive movement. Pt denies bldg/lof/change in discharge, contractions, headache, visionchanges, chest pain/SOB or edema. SBAR given to Dr. June Esteban, see note in Epic. Leonor Allen RN ING PRODUCTION SUPERVISOR documented in this encounter Plan of Treatment Upcoming Encounters Date Type Department Care Team (Late st Contact Info) Description 12/10/2024 1:30 PM WELDING PRODUCTION SUPERVISOR Appointment [facility] Medicine [address] [phone] Jesus Harmon MD [address] [place] [address] 12/10/2024 2:00 PM WELDING PRODUCTION SUPERVISOR Office Visit [facility] Maternal Medicine [address] [address] Jesus Harmon MD [address] [place], [place] [address] 12/10/2024 2:15 PM WELDING PRODUCTION SUPERVISOR Office Visit [facility] Maternal Medicine [address] [place] [address] Jesus Harmon MD [address] [place] [address] 12/12/2024 8:45 AM WELDING PRODUCTION SUPERVISOR Appointment [facility] Maternal Medicine [facility] [address] [place] [address] Diane Lopez MD [address] [place] [address] 12/12/2024 9:15 AM WELDING PRODUCTION SUPERVISOR Office Visit [facility] Maternal Medicine [facility] [address] [facility] [address] [place] [phone] Diane Lopez MD [address] [facility] [address] [address] 12/14/2024 1:30 PM WELDING PRODUCTION SUPERVISOR Ancillary Procedure [facility] M[facility] Medicine [address] [phone] Jesus Harmon MD [address] [place] [address] 12/14/2024 2:00 PM WELDING PRODUCTION SUPERVISOR Office Visit [facility] Maternal Medicine [address] [address] Jesus Harmon MD [address] [place] [address] 12/17/2024 12:45 PM WELDING PRODUCTION SUPERVISOR Appointment [facility] Maternal Medicine [facility] [address] [facility] [place] [address] Jesus Harmon MD [address] [place] [address] 12/17/2024 1:15 PM WELDING PRODUCTION SUPERVISOR Office Visit [facility] [place] [address] [place] [address] Jesus Harmon MD [address] [place] [address] 12/17/2024 1:30 PM WELDING PRODUCTION SUPERVISOR Office Visit [facility] [place] [address] [place] [address] Jesus Harmon MD [address] [place] [address] 12/19/2024 9:30 AM WELDING PRODUCTION SUPERVISOR Appointment [facility] Maternal Medicine [facility] [address] [place] [phone] Nicole Núñez MD [address] [facility] [place] [place] [address] Flower Amato MD [address] [address] 12/19/2024 10:00 AM WELDING PRODUCTION SUPERVISOR Office Visit [facility] Maternal Medicine [facility] [address] [facility] [address] [place] [phone] Nicole Núñez MD [address] [facility] [address] [place] [address] Flower Amato MD [address] [address] 12/21/2024 11:45 AM WELDING PRODUCTION SUPERVISOR Appointment [facility] Maternal Medicine [facility] [address] [place] [phone] Jesus Harmon MD [address] [place] [address] Karin Esteban MD [address] [facility] [address] [address] [address] 12/21/2024 12:15 PM WELDING PRODUCTION SUPERVISOR Office Visit [facility] Maternal Medicine [facility] [address] [facility] [address] [place] [phone] Jesus Harmon MD [address] [place] [address] Karin Esteban MD [address] [address] 12/24/2024 11:00 AM WELDING PRODUCTION SUPERVISOR Appointment [facility] [place] [address] [place] [phone] Jesus Harmon MD [address] [place] [address] 12/24/2024 11:30 AM WELDING PRODUCTION SUPERVISOR Office Visit [facility] [place] [address] [place] [address] Jesus Harmon MD [address] [place] [address] 12/24/2024 11:45 AM WELDING PRODUCTION SUPERVISOR Office Visit [facility] [place] [address] [place] [address] Jesus Harmon MD [address] [place] [address] 12/26/2024 10:15 AM WELDING PRODUCTION SUPERVISOR Appointment [facility] M[facility] Medicine [facility] [address] [facility] [address] [place] [phone] Jesus Harmon MD [address] [place] [address] 12/26/2024 10:45 AM WELDING PRODUCTION SUPERVISOR Office Visit [facility] [place] [address] [place] [phone] Jesus Harmon MD [address] [place] [address] 12/28/2024 10:15 AM WELDING PRODUCTION SUPERVISOR Appointment [facility] Maternal Medicine [place] [address] [place] [phone] Diane Lopez MD [address] [place] [address] 12/28/2024 10:45 AM WELDING PRODUCTION SUPERVISOR Office Visit [facility] Maternal Medicine [place] [address] [place] [phone] Diane Lopez MD [address] [place] [address] 01/11/2025 10:15 AM CDT Appointment [facility] Maternal Medicine [place] [address] [place] [phone] Diane Lopez MD [address] [place] [address] 01/11/2025 10:45 AM CDT Office Visit [facility] Maternal Medicine [place] [address] [place] [phone] Diane Lopez MD [address] [place] [address] documented as of this encounter Visit Diagnoses Diagnosis Monochorionic diamniotic twin gestation in second trimester- Primary growth restriction antepartum Monochorionic diamniotic twin , antepartum Twin [...] antepartum documented in this encounter Care Teams Jet Aircraft Servicer Relationship Specialty Start Date End Date No Ref-Primary, Physician PCP - General 12/04/21 documented as of this encounter
--- OUTSIDE RECORDS SUMMARY | 2024-12-07 20:25 | XMS_ITS | Encounter Summary ---
Author Organization [facility] Address [address] [place] [id number] Care Team Providers Care Propeller Tester Name Role Phone No Ref-Primary, Physician Primary Care Provider Flower Amato MD Unavailable [phone] Reason for Referral * Diagnostic Imaging Ultrasound (Routine) - Pending Review Specialty Diagnoses / Procedures Referred By Contac t Referred To Contact Radiology. 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 Procedures MFM Twins Comprehensive F/U Nicole Byrd MD [address] [place] [address] Phone: tel: fax: Referral ID Status Reason Start Date Expiration Date V isits Requested Visits Authorized [id number] Pending Review 11/30/2024 11/30/2025 1 1 APY TEACHER Reason for Visit * Diagnostic Imaging Ultrasound (Routine) - Pending Review Specialty Diagnoses / Procedures Referred By Noa lilly Referred To Contact Radiology. 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 Procedures MFM Twins Comprehensive F/U Nicole Byrd MD [address] [place] [address] Phone: tel: fax: Referral ID Status Reason Start Date Expiration Date V isits Requested Visits Authorized [id number] Pending Review 11/30/2024 11/30/2025 1 1 Encounter Details Date Type Department Care Team (Latest Contact Info) Description 12/03/2024 2:01 PM THERAPY TEACHER - 12/03/2024 11:59 PM THERAPY TEACHER Hospital Encounter [facility] M[facility] Medicine [facility] [place] [address] [place] [phone] Nicole Byrd MD [address] [place], [place] [phone] Monochorionic diamniotic twin gestation in second trimester [...] on file Legal Sex Female 11:44 PM THERAPY TEACHER Gender Identity Not on file Sexual [...] st Contact Info) Description 12/10/2024 1:30 PM THERAPY TEACHER Appointment [facility] Maternal Medicine [facility] [address] [place] [address] Jesus Harmon MD [address] [place] [address] 12/10/2024 2:00 PM THERAPY TEACHER Office Visit [facility] Maternal Medicine [facility] [address] [place] [address] Jesus Harmon MD [address] [place], [place] [address] 12/10/2024 2:15 PM THERAPY TEACHER Office Visit [facility] Maternal Medicine [facility] [address] [place] [address] Jesus Harmon MD [address] [place] [address] 12/12/2024 8:45 AM THERAPY TEACHER Appointment [facility] Maternal Medicine [facility] [address] [place] [phone] Diane Lopez MD [address] [facility] [address] [place], [place] [address] 12/12/2024 9:15 AM THERAPY TEACHER Office Visit [facility] Maternal Medicine [facility] [address] [place] [phone] Diane Lopez MD [address] [facility] [address] [facility] [address] [place], [place] [address] 12/14/2024 1:30 PM THERAPY TEACHER Ancillary Procedure [facility] Maternal Medicine [address] [phone] Jesus Harmon MD [address] [place] [address] 12/14/2024 2:00 PM THERAPY TEACHER Office Visit [facility] Maternal Medicine [address] [phone] Jesus Harmon MD [address] [place] [address] 12/17/2024 12:45 PM THERAPY TEACHER Appointment [facility] Maternal Medicine [facility] [address] [place] [phone] Jesus Harmon MD [address] [place] [address] 12/17/2024 1:15 PM THERAPY TEACHER Office Visit [facility] [place] [address] [place] [address] Jesus Harmon MD [address] [place] [address] 12/17/2024 1:30 PM THERAPY TEACHER Office Visit [facility] [place] [address] [place] [address] Jesus Harmon MD [address] [place] [address] 12/19/2024 9:30 AM THERAPY TEACHER Appointment [facility] Maternal Medicine [facility] [address] [facility] [address] [place] [phone] Nicole Byrd MD [address] [address] Flower Amato MD [address] [facility] [address] [address] 12/19/2024 10:00 AM THERAPY TEACHER Office Visit [facility] Maternal Medicine [facility] [address] [place] [address] Nicole Byrd MD [address] [facility] [place] [address] Flower Amato MD [address] [facility] [address] [address] 12/21/2024 11:45 AM THERAPY TEACHER Appointment [facility] Maternal Medicine [facility] [address] [place] [address] Jesus Harmon MD [address] [place] [address] Karin Esteban MD [address] [address] [address] 12/21/2024 12:15 PM THERAPY TEACHER Office Visit [facility] Maternal Medicine [facility] [address] [place] [address] Jesus Harmon MD [address] [place] [address] Karin Esteban MD [address] [address] [address] 12/24/2024 11:00 AM THERAPY TEACHER Appointment [facility] [place] [address] [place] [address] Jesus Harmon MD [address] [place] [address] 12/24/2024 11:30 AM THERAPY TEACHER Office Visit [facility] Maternal Medicine [facility] [address] [place] [address] Jesus Harmon MD [address] [place] [address] 12/24/2024 11:45 AM THERAPY TEACHER Office Visit [facility] Maternal Medicine [facility] [address] [facility] [place] [address] Jesus Harmon MD [address] [place] [address] 12/26/2024 10:15 AM THERAPY TEACHER Appointment [facility] Maternal Medicine [facility] [address] [place] [phone] Jesus Harmon MD [address] [place] [address] 12/26/2024 10:45 AM THERAPY TEACHER Office Visit [facility] Maternal Medicine [facility] [address] [place] [phone] Jesus Harmon MD [address] [place] [address] 12/28/2024 10:15 AM THERAPY TEACHER Appointment [facility] Maternal Medicine [facility] [address] [place] [phone] Diane Lopez MD [address] [address] 12/28/2024 10:45 AM THERAPY TEACHER Office Visit [facility] Maternal Medicine [facility] [address] [place] [phone] Diane Lopez MD [address] [place] [address] 01/11/2025 10:15 AM CDT Appointment [facility] Maternal Medicine [facility] [address] [place] [phone] Diane Lopez MD [address] [place], [place] [address] 01/11/2025 10:45 AM CDT Office Visit [facility] Maternal Medicine [place] [address] [place] [phone] Diane Lopez MD [address] [place], [place] [address] documented as of this encounter Procedures Procedure Name Priority Date/Time Associated Diagnosis Comments MFM TWINS US COMPREHENSIVE F/U Routine 12/03/2024 3:46 PM THERAPY TEACHER Monochorionic diamniotic twin gestation in second trimester documented in this encounter Results * MFM Twins US Comprehensive F/U (12/03/2024 3:46 PM THERAPY TEACHER) Anatomical Region Laterality Modality Ultrasound 12/03/2024 2:24 PM THERAPY TEACHER Impressions 12/04/2024 8:53 AM THERAPY TEACHER IMPRESSION ----- Monochorionic diamniotic twin gestation at [...] reversed a wave. Narrative 12/04/2024 8:53 AM THERAPY TEACHER Comp Follow Up ----- Pat. Name: HEATHER CHÁVEZ Study Date: 12/03/2024 2:24pm Pat. NO: [id number] Referring MD: NICOLE BYRD Site: It Lead: Piper Huynh RDMS : 1995 Age: 29 [...] 1 lb 2 oz EFW by [facility]lock ([id number]) EFW discordance 32.5 % Head / Face / Neck Biometry: Sales Representative [facility] 7.2 mm CM 3.9 mm Thorax / [...] 0 lb 12 oz EFW by Hadlock ([id number]) EFW discordance 32.5 % Head / Face / Neck Biometry: Sales Representative [facility] 6.3 mm Extremities / Bony Struc Biometry: Tibia 25.7 mm 1% Valadez Fibula 26.0 mm 3% Valadez Fetus 1: ANATOMY ----- The following structures appear normal: Head / Neck Cranium. Head size. Head shape. Lateral ventricles. Midline falx. Cavum septi pellucidi. Cerebellum. Cisterna magna. Thalami. Face Lips. Profile. Nose. Heart / Thorax 4-chamber view. RVOT view. LVOT view. 8-dwpcoa-mgnvxdc view. Diaphragm. Abdomen Stomach. Kidneys. Bladder. Spine [...] Thorax 4-chamber view. RVOT view. LVOT view. 6-degmat-znptgbc view. sex: female. Fetus 1: TTTS ASSESSMENT [...] expense of twin 1. Reviewed goals with Heather and her and they desire to optimize [...] context, reviewed case with Dr. Spangler at [facility] to discuss possible management options. He discussed that there are situations in which fetoscopic laser photocoagulation of the placenta could be offered to dichorionize the placenta with the intent of improving outcomes for both twins. However, he notes that in this setting, chances of this leading to a co-twin demise of twin 2 are rather high (60-70%). Heather desires optimal outcomes for both babies and declines [facility] referral. After discussion regarding chances of [...] the patient (reviewing medical records/tests), in direct lxhh-wb-wwvx contact with the patient during the visit counseling and discussing the plan of care and documenting the visit in the electronic medical record. Procedure Note Flor Dickson MD - 12/04/2024 Comp Follow Up ----- Pat. Name: HEATHER CHÁVEZ Study Date: 12/03/2024 2:24pm Pat. NO: [id number] Referring MD: NICOLE BYRD Site: It Lead: Piper Huynh RDMS : 1995 Age: 29 [...] EFW (lb,oz) 1 lb 2oz EFW by [place]([id number]) EFW discordance 32.5% Head / Face / Neck Biometry: Sales Representative [facility] 7.2mm CM 3.9mm Thorax / Lungs Biometry: [...] EFW (lb,oz) 0 lb 12oz EFW by [facility]lock([id number]) EFW discordance 32.5% Head / Face / Neck Biometry: Sales Representative [facility] 6.3mm Extremities / Bony Struc Biometry: Tibia 25.7mm 1%Valadez Fibula 26.0mm 3%Valadez Fetus 1: ANATOMY ----- The following structures appear normal: Head / Neck Cranium. Head size. Head shape.Lateral ventricles. Midline falx. Cavum septi pellucidi. Cerebellum.Cisterna magna. Thalami. Face Lips. Profile. Nose. Heart / Thorax 4-chamber view. RVOT view. LVOT view.1-tyalwi-ajmrutg view. Diaphragm. Abdomen Stomach. Kidneys. Bladder. Spine [...] / Thorax 4-chamber view. RVOT view. LVOT view.6-qqtwnc-cjmgzyy view. sex: female. Fetus 1: TTTS ASSESSMENT [...] expense of twin 1. Reviewed goals with Heather and her and they desire to optimizeoutcomes for both babies. Reviewed that while they are at the periviableperiod, outcomes are still uncertain at this gestational age, even for twin 1. Given twin 2 is [id number] at 22 weeks, chances of intact survival [...] this context, reviewed case with Dr. Spangler [facility] to discuss possible management options. He discussed that there aresituations in which fetoscopic laser photocoagulation of the placenta could be offered todichorionize the placenta with the intent of improving outcomes for bothtwins. However, he notes that in this setting, chances of this leading to a co-twin demise of twin 2 arerather high (60-70%). Heather desires optimal outcomes for both babies and declines [facility] referral.After discussion regarding chances of survival [...] see the patient(reviewing medical records/tests), in direct gwtj-ya-jkxf contact with the patient during the visitcounseling [...] with intermittent reversed awave. Nicole Byrd MD [facility] ORDERABLES Edited Result - Final documented [...] antepartum documented in this encounter Care Teams Propeller Tester Relationship Specialty Start Date End Date No Ref-Primary, Physician PCP - General 12/04/21 Flower Amato MD [address] [address] Assigned OBGYN Provider 11/22/24 documented as of this encounter
--- OUTSIDE RECORDS SUMMARY | 2024-12-07 20:25 | XMS_ITS | Encounter Summary ---
Author Organization [place] Address [address] [place] [address] Care Team Providers Care Log Handler Name Role Phone No Ref-Primary, Physician Primary [...] on file Legal Sex Female 11:44 PM GYM TEACHER Gender Identity Not on file Sexual Orientation Not on file documented as of this encounter Plan of Treatment Upcoming Encounters Date Type Department Care Team (Late st Contact Info) Description 12/10/2024 1:30 PM GYM TEACHER Appointment [facility] [place] [address] [place] [phone] Jesus Harmon MD [address] [place] [phone] 12/10/2024 2:00 PM GYM TEACHER Office Visit [facility] [place] [address] [place], [place] [address] Jesus Harmon MD [address] [place] [address] 12/10/2024 2:15 PM GYM TEACHER Office Visit [facility] [address] [place] [address] Jesus Harmon MD [address] [place] [address] 12/12/2024 8:45 AM GYM TEACHER Appointment [facility] M[facility] Medicine [facility] [address] [place] [phone] Diane Lopez MD [address] [place] [address] 12/12/2024 9:15 AM GYM TEACHER Office Visit [facility] [address] [place] [address] Diane Lopez MD [address] [place] [address] 12/14/2024 1:30 PM GYM TEACHER Ancillary Procedure [facility] [address] [phone] Jesus Harmon MD [address] [place] [address] 12/14/2024 2:00 PM GYM TEACHER Office Visit [facility] [address] [phone] Jesus Harmon MD [address] [place] [address] 12/17/2024 12:45 PM GYM TEACHER Appointment [facility] [place] [address] [place] [address] Jesus Harmon MD [address] [place] [address] 12/17/2024 1:15 PM GYM TEACHER Office Visit [facility] [place] [address] [place] [address] Jesus Harmon MD [address] [place] [address] 12/17/2024 1:30 PM GYM TEACHER Office Visit [facility] [address] [facility] [place] [address] Jesus Harmon MD [address] [place] [address] 12/19/2024 9:30 AM GYM TEACHER Appointment [facility] Maternal Medicine [facility] [address] [place] [phone] Nicole Núñez MD [address] [place], [place] [address] Flower Amato MD [address] [facility] [address] [place], [place] [address] 12/19/2024 10:00 AM GYM TEACHER Office Visit [facility] Maternal Medicine [facility] [address] [place] [phone] Nicole Núñez MD [address] [place], [place] [address] Flower Amato MD [address] [place] [address] 12/21/2024 11:45 AM GYM TEACHER Appointment [facility] Medicine [facility] [address] [facility] [address] [place] [address] Jesus Harmon MD [address] [place] [address] Karin Esteban MD [address] [place] [address] 12/21/2024 12:15 PM GYM TEACHER Office Visit [facility] [address] [facility] [address] [place] [address] Jesus Harmon MD [address] [place] [address] Karin Esteban MD [address] [place] [address] 12/24/2024 11:00 AM GYM TEACHER Appointment [facility] [place] [address] [place] [phone] Jesus Harmon MD [address] [place] [address] 12/24/2024 11:30 AM GYM TEACHER Office Visit [facility] [place] [address] [place] [address] Jesus Harmon MD [address] [place] [address] 12/24/2024 11:45 AM GYM TEACHER Office Visit [facility] [place] [address] [place] [address] Jesus Harmon MD [address] [place] [address] 12/26/2024 10:15 AM GYM TEACHER Appointment [facility] [place] [address] [place] [phone] Jesus Harmon MD [address] [place] [address] 12/26/2024 10:45 AM GYM TEACHER Office Visit [facility] [place] [address] [facility] [address] [place] [phone] Jesus Harmon MD [address] [place] [address] 12/28/2024 10:15 AM GYM TEACHER Appointment [facility] [place] [address] [facility] [address] [place] [phone] Diane Lopez MD [address] [place] [address] 12/28/2024 10:45 AM GYM TEACHER Office Visit [facility] [place] [address] [facility] [address] [place] [phone] Diane Lopez MD [address] [place] [address] 01/11/2025 10:15 AM CDT Appointment [facility] [place] [address] [place] [phone] Diane Lopez MD [address] [place] [address] 01/11/2025 10:45 AM CDT Office Visit [facility] [place] [address] [address] [facility] [address] [place] [phone] Diane Lopez MD [address] [place] [address] documented as of this encounter Visit Diagnoses Not on filedocumented in this encounter Care Teams Log Handler Relationship Specialty Start Date End Date No Ref-Primary, Physician PCP - General 12/04/21 documented as of this encounter
--- OUTSIDE RECORDS SUMMARY | 2024-12-07 20:25 | XMS_ITS | Continuity of Care Document ---
Author Organization [facility] Address [address] [facility] [address] [place] [address] Assessment No assessment recorded. Plan of Treatment Reminders Order Date Submit [...] Organization Details Recorded Time Low back pain 704976381 Active 2023 Moise Mensah DC [address] [facility], [place], [address], On license of [facility] 4 18:46:52 Thoracic segmental dysfunction 226549916 Active 2023 Moise Mensah DC [address] [facility], [place], [address], On license of [facility] 4 18:46:52 Lumbar segmental dysfunction 713404645 Active 2023 Moise Mensah DC [address] [facility], [place], [address], On license of [facility] 4 18:46:52 Somatic dysfunction of sacral spine 292551917 Active 2023 Moise Mensah DC [address] [facility], [place], [address], On license of [facility] 4 18:46:52 Neck pain 73685196 Active 2023 Moise Guzman [place] [address] [facility], [place], [address], On license of [facility] 4 18:46:54 Cervical segmental dysfunction 226638134 Active 2023 Moise Mensah [place] [address] [facility], [place], [address], On license of [facility] 4 18:46:54 Problem Notes None recorded. Procedures Surgical History Date Name Laterality Status Provider Name and Address Organization Details Recorded Time 5 75398: Spinal manipulation , 3 to 4 regions completed Gerry Le DC [address] [facility], [place], [address], On license of [facility] 12/04/2024 11:22:55 5 76801: Spinal manipulation , 3 to 4 regions completed Gerry Le DC [address] [facility], [place], [address], On license of [facility] 11/07/2024 12:03:29 4 14377: Spinal manipulation , 3 to 4 regions completed Moise Guzman [place] Mensah [address] [facility], [place], [address], On license of [facility] 10/30/2024 18:49:30 Imaging Results None recorded. Procedure [...] SNOMED-CT Code Diagnosis ICD10 Code Diagnosis Note [id number] [facility] [address] [facility] [place] [address] 10/30/2024 16:03:14 10/30/2024 19:26:07 Lumbar segmental dysfunction 346268013 M99.03 Low back pain 582980188 M54.50 Somatic dy sfunction of sacral spine 016026340 M99.04 Thoracic s egmental dysfunction 418987629 M99.02 Cervical s egmental dysfunction 323987894 M99.01 Neck pain 04186227 M54.2 61833 Gerry Le DC [facility] [address] [facility] [place] [address] 11/07/2024 10:39:00 11/07/2024 12:17:20 Lumbar segmental dysfunction 770679490 M99.03 Low back pain 185659031 M54.50 Somatic dy sfunction of sacral spine 929119021 M99.04 Thoracic s egmental dysfunction 352672830 M99.02 [id number] [place] [facility] [address] [place] [address] 11/29/2024 17:27:32 12/04/2024 11:23:40 Cervical segmental dysfunction 365445988 M99.01 Thoracic s egmental dysfunction 049611706 M99.02 Neck pain 01212229 M54.2 Somatic dy sfunction of sacral spine 311738494 M99.04 Health Concerns Section Related Observation LastModified by Organization Detai ls LastModified Time None Recorded Concern Status LastModified by Organization Details LastModified Time None Recorded Payers Encounter Date Sequence Insurance Name Policy Number Policy Samuel Covered Member ID Samuel Member ID Guarantor Name 11/29/2024 1 [employer] - INDIVIDUAL AND FAMILY (HMO) [id number] Heather Chávez [id number] Heather Chávez Notes Date Note Type Note Provider Name and Address Organization Details Recorded Time 11/29/2024 text/html HPI - Cervical SpineReported bypatient.Location: left Quality:aching Severity:moderate Duration:2 weeks Timing:gradual Alleviating Factors:ice Aggravating Factors:sitting Associated Symptoms:no numbness/tingling Gerry Le DC [address] [facility], [place], [address], On license of [facility] 12/04/2024 11:23:37 OBGyn Episode No OBEpisode recorded.
--- OUTSIDE RECORDS SUMMARY | 2024-12-07 20:25 | XMS_ITS | Encounter Summary ---
Author Organization [place] Address [address] [facility] [place] [address] Care Team Providers Care Toy Parts Former Supervisor Name Role Phone No Ref-Primary, Physician Primary Care Provider Reason for Visit * Reason Comments Ultrasound RL2/MCA/UAR/TTTS elizabeth ck-M/D twins, Elevated MCA and AEDF on F2 Encounter Details Date Type Department Care Team (Latest Contact Info) Description 11/02/2024 2:00 PM QUANTITATIVE MANAGER Office Visit [facility] [place] [address] [facility] [address] [place] [address] Diane Lopez MD [address] [place] [address] Flor Dickson MD [address] [place] [address] Monochorionic diamniotic twin gestation in [...] on file Legal Sex Female 11:44 PM QUANTITATIVE MANAGER Gender Identity Not on file Sexual Orientation Not on file documented as of this encounter Progress Notes * Flor Dickson MD - 11/02/2024 2:00 PM CST The patient was seen for an ultrasound in the [facility] clinic today. For a detailed report of the ultrasound examination, please see the ultrasound report which can be found under the imaging tab. If you have questions regarding today's evaluation or if we can be of further service, please contact the Maternal- Medicine Center. Flor Dickson M.D. Maternal -Medicine Specialist TITATIVE MANAGER documented in this encounter Nursing Notes * Debra Tran, RN - 11/02/2024 2:00 PM CST Patient [facility] to [facility] for RL2/MCA/UAR/TTTS check at 17w5d due to M/D twins, Elevated MCA and AEDFon F2. Denies LOF, vaginal bleeding or cramping/contractions. SBAR given to M MD, see their note in Epic. TITATIVE MANAGER documented in this encounter Plan of Treatment Upcoming Encounters Date Type Department Care Team (Late st Contact Info) Description 12/10/2024 1:30 PM QUANTITATIVE MANAGER Appointment [facility] Maternal Medicine [address] [phone] Jesus Harmon MD [address] [place], [place] [address] 12/10/2024 2:00 PM QUANTITATIVE MANAGER Office Visit [facility] Maternal Medicine [address] [place] [address] Jesus Harmon MD [address] [place], [place] [address] 12/10/2024 2:15 PM QUANTITATIVE MANAGER Office Visit [facility] [place] [address] [place] [address] Jesus Harmon MD [address] [place] [address] 12/12/2024 8:45 AM QUANTITATIVE MANAGER Appointment [facility] [address] [place] [address] Diane Lopez MD [address] [facility] [address] [place] [address] 12/12/2024 9:15 AM QUANTITATIVE MANAGER Office Visit [facility] [address] [place] [address] Diane Lopez MD [address] [address] 12/14/2024 1:30 PM QUANTITATIVE MANAGER Ancillary Procedure [facility] [address] [phone] Jesus Harmon MD [address] [place] [address] 12/14/2024 2:00 PM QUANTITATIVE MANAGER Office Visit [facility] M[facility] Medicine [address] [place] [phone] Jesus Harmon MD [address] [place] [address] 12/17/2024 12:45 PM QUANTITATIVE MANAGER Appointment [facility] M[facility] [address] [place] [address] Jesus Harmon MD [address] [place] [address] 12/17/2024 1:15 PM QUANTITATIVE MANAGER Office Visit [facility] [place] [address] [place] [address] Jesus Harmon MD [address] [place] [address] 12/17/2024 1:30 PM QUANTITATIVE MANAGER Office Visit [facility] [place] [address] [facility] [address] Jesus Harmon MD [address] [place] [address] 12/19/2024 9:30 AM QUANTITATIVE MANAGER Appointment [facility] [address] [place] [phone] Nicole Núñez MD [address] [facility] [place] [address] Flower Amato MD [address] [address] 12/19/2024 10:00 AM QUANTITATIVE MANAGER Office Visit [facility] [address] [place] [phone] Nicole Núñez MD [address] [facility] [address] [place], [place] [address] Flower Amato MD [address] [address] 12/21/2024 11:45 AM QUANTITATIVE MANAGER Appointment [facility] [address] [place] [phone] Jesus Harmon MD [address] [place] [address] Karin Esteban MD [address] [facility] [address] [address] 12/21/2024 12:15 PM QUANTITATIVE MANAGER Office Visit [facility] Maternal Medicine [place] [address] [facility] [address] [place] [address] Jesus Harmon MD [address] [place] [address] Karin Esteban MD [address] [place] [address] 12/24/2024 11:00 AM QUANTITATIVE MANAGER Appointment [facility] [place] [address] [place] [phone] Jesus Harmon MD [address] [place] [address] 12/24/2024 11:30 AM QUANTITATIVE MANAGER Office Visit [facility] [place] [address] [facility] [place] [address] Jesus Harmon MD [address] [place] [address] 12/24/2024 11:45 AM QUANTITATIVE MANAGER Office Visit [facility] [place] [address] [facility] [place] [address] Jesus Harmon MD [address] [place] [address] 12/26/2024 10:15 AM QUANTITATIVE MANAGER Appointment [facility] Medicine [facility] [address] [place] [phone] Jesus Harmon MD [address] [place] [address] 12/26/2024 10:45 AM QUANTITATIVE MANAGER Office Visit [facility] M[facility] Medicine [place] [address] [place] [phone] Jesus Harmon MD [address] [place] [address] 12/28/2024 10:15 AM QUANTITATIVE MANAGER Appointment [facility] Medicine [place] [address] [place] [phone] Diane Lopez MD [address] [place] [address] 12/28/2024 10:45 AM QUANTITATIVE MANAGER Office Visit [facility] Maternal Medicine [place] [address] [place] [phone] Diane Lopez MD [address] [place] [address] 01/11/2025 10:15 AM CDT Appointment [facility] Maternal Medicine [place] [address] [place] [phone] Diane Lopez MD [address] [place] [address] 01/11/2025 10:45 AM CDT Office Visit [facility] Maternal Medicine [place] [address] [place] [phone] Diane Lopez MD [address] [place] [address] documented as of this encounter Visit Diagnoses [...] antepartum documented in this encounter Care Teams [employer] Former Supervisor Relationship Specialty Start Date End Date No Ref-Primary, Physician PCP - General 12/04/21 documented as of this encounter
[2024-12-07 20:34] VITALS: BP 112/74; PULSE 88; RESP 20; TEMP 36.1; O2SAT 99
[2024-12-07 20:45] VITALS: O2SAT 100
[2024-12-07 20:48] LABS: Appearance Urine Clear (Clear); Bilirubin Urine Negative (Negative); Blood Urine Negative (Negative); Color Urine Yellow (Yellow); Glucose Urine Negative (Negative); Ketones Urine 2+ (Negative); Leukocyte Esterase Urine Negative (Negative); Nitrite Urine Negative (Negative); Protein Urine Negative (Negative); Urobilinogen Urine 0.2 (0.2-1.0); pH Urine 6.5 (5.0-8.5)
--- NOTE | 2024-12-07 20:51 | ED.SOB ---
HPI - SOB/Dyspnea General Time Seen by Provider: 20:51 Date Seen: 12/07/24 Chief Complaint: Shortness of Breath/Dyspnea Stated Complaint: 22 weeks , shortness of breath, weak Time Seen by Provider: 12/07/24 20:33 Source: patient and RN notes reviewed Mode of arrival: ambulatory Limitations: no limitations History of Present Illness HPI Narrative: This 29-year-old female is returning to the ER today just feeling something is wrong, worsening shortness of breath, extreme fatigue. Earlier she just felt that she could even get out of bed. She is noting increasing shortness of breath today, just feels like she cannot get her breath. She feels weak, no fever. Cough is not worse, had URI before all of these symptoms, was evaluated in the ER with an extensive evaluation on December 01 with similar symptoms. On that visit, had chest CT PE protocol with only finding of some bronchial thickening but no infiltrate, no PE, normal cardiac size. She also had normal gallbladder ultrasound, normal limited ultrasound. She has been treated for reflux symptoms, just started omeprazole 2 days ago for acid reflux. She notes that she really has not been eating as much recently, any time she eats, will get nauseated, will feel bloated, just feels full. She notes that they did see some forward blood flow on the ultrasound with the 2nd twin. There is discrepant growth between the twins. They note that when she becomes viable with this twin , she is probably going in the hospital and getting betamethasone, they believe that these twins will be delivered early. Related Data Home Medications ?Medication ?Instructions ?Recorded ?Confirmed ferrous gluconate 225 mg (27 mg 225 mg PO QDAY 07/16/24 12/01/24 iron) tablet docosahexaenoic acid 200 mg mg PO 08/27/24 11/28/24 capsule ( DHA) Previous Rx's ?Medication ?Instructions ?Recorded omeprazole 20 mg capsule,delayed 20 mg PO QDAY 12 weeks #84 caps 11/28/24 release Allergies Allergy/AdvReac Type Severity Reaction Status Date / Time cat dander Allergy Mild Verified 12/07/24 20:34 seasonal Allergy Uncoded 11/28/24 10:41 Review of Systems Status of ROS: Reports: 6 or more systems reviewed and unremarkable except as noted in History and below [facility] Medical History Heart murmur ?R01.1 - Cardiac murmur, unspecified (ICD-10) Hypothyroidism complicating ?O99.280 - Endocrine, nutritional and metabolic diseases complicating , unspecified trimester (ICD-10) ?E03.9 - Hypothyroidism, unspecified (ICD-10) Asthma ?J45.909 - Unspecified asthma, uncomplicated (ICD-10) Stress incontinence of urine ?N39.3 - Stress incontinence (female) (male) (ICD-10) Low ferritin level ?R79.0 - Abnormal level of blood mineral (ICD-10) Generalized anxiety disorder ?F41.1 - Generalized anxiety disorder (ICD-10) Palpitations ?R00.2 - Palpitations (ICD-10) Precipitate labor, with delivery ?O62.3 - Precipitate labor (ICD-10) Pre-syncope ?R55 - Syncope and collapse (ICD-10) fever ?O86.4 - Pyrexia of unknown origin following delivery (ICD-10) Encounter for genetic screening ?Z13.79 - Encounter for other screening for genetic and chromosomal anomalies (ICD-10) Pharyngitis ?J02.9 - Acute pharyngitis, unspecified (ICD-10) Surgical History History of appendectomy (~12/2021) ?Z90.49 - Acquired absence of other specified parts of digestive tract (ICD-10) Family History Father Diabetes Heart disease Social History What is your current living situation?: I presently have a place to live In the past 12 months, utilities in danger of being shut off: no In past 12 months, lack of transportation kept you from medical appts, meetings, work, or getting things needed for daily living: no In the past 12 mos, have been you worried that your food would run out before you had money to buy more?: never true In the past 12 mos, the food you bought just didn't last and you didn't have money to buy more?: never true Smoking Status: Never smoker Do you use any of these nicotine containing products: None Second hand tobacco smoke exposure: No How often do you have a drink containing alcohol: never AUDIT-C Alcohol total score: 0 Non-prescribed substance use: denies use How often does anyone, including family, friends and others, physically hurt you: never How often does anyone, including family, friends and others, insult or talk down to you: never How often does anyone, including family, friends and others, threaten you with harm: never How often does anyone, including family, friends and others, scream or curse at you: never Exam Const: Vital Signs, click to edit/add: Vital Signs - 24 hr 12/07/24 20:34 12/07/24 20:45 12/07/24 23:03 Temperature 97 F L Pulse Rate [Pulse Oximeter] 88 76 Respiratory Rate 20 Blood Pressure [Ri ght Upper Arm] 112/74 112/69 Pulse Oximetry 99 100 100 Oxygen Delivery Me thod Room Air Room Air This 29-year-old female is alert, interactive, no apparent stress. Looks pale but no rash, able to speak in complete sentences. Pupils equal round reactive, sclera clear. Neck supple, no adenopathy, no thyromegaly masses or nodules. Lungs are clear, good air entry, no wheezing or crackles. CV regular rate and rhythm, no murmur, normal S1-S2, no S3-S4. Abdomen is gravid, nontender. No lower extremity edema. Patient was ambulated in the ER, oxygenation was at 94% and heart rate went to 100. Documenting provider has reviewed patient's vital signs: yes Course Course ED Course: Reviewed with Heather my concerns about having to consider doing CT imaging for PE again. I will talk to OB. We will have her get baseline labs, monitor her here. I will talk to her once I have conferred with OB. Reevaluation(s) Time of Reevaluation #1: 21:38 Reevaluation #1: Patient has 2+ ketones on her urinalysis, will initiate a L of IV fluids with normal saline. Time of Reevaluation #2: 22:50 Reevaluation #2: Patient is at 100% oxygenation resting in bed. She has completed the 1 L of IV fluids. She actually has a bit more color in her cheeks at this time. She still feels short of breath or rather that she can not get a full breath. Reviewed that her hemoglobin is 9.5. This is down. She does bring up that omeprazole inhibits iron absorption, she may have to talk to [facility] this weekend regarding this. I do not know what to direct her as far as taking a proton pump inhibitor and her anemia. We have reviewed that her proBNP is completely normal, this would make anything like cardiomyopathy much less likely. Have discussed with her that I absolutely cannot rule out pulmonary embolus without doing chest CT imaging. She in her and I have discussed this. She does not want to proceed with doing another chest CT, she is aware that this is the only test that I can do to rule out pulmonary embolus. She does agree to do a chest x-ray given the proximity of influenza like illness recently. Patient does talk about cleaning for about 3 hours before coming in. Time of Reevaluation #3: 23:50 Reevaluation #3: Did review with patient troponin is normal, chest x-ray is normal, provided a copy of the report. Her urinalysis showed 2+ ketones but no evidence of infection. We will culture the urine and should it start growing anything, she will be contacted and treated appropriately. Again, no indication for treatment for UTI at this time. We discussed that some of that discomfort from urination could be from concentrated urine, do recommend her trying to drink more. She states since starting the omeprazole, she is able to start drinking water again, could not before starting it because of the burning. She has declined CT imaging at this time, will discharge to home. Baby's technically are viable and will be 23 weeks on Tuesday, they were given my a wishes and greatest hopes for a good outcome and lengthy as possible for these twins. Consultations Consultation #1: Have spoken with Dr. Olsen in OB. She has briefly reviewed patient's chart with me, agrees that we cannot rule out life-threatening pulmonary emboli without doing testing. We will see what labs show, see would patient feels but anxiety is a diagnosis of exclusion. Pulmonary emboli can be life-threatening. We will see what her troponin shows, other labs and have a discussion with her about risks and benefits of this testing. Time: 21:09 Vital Signs Vital signs: Initial Vital Signs Temperature 97 F L 02/07/25 20:34 Temperature Source Temporal Artery Scan 12/07/24 20:34 Pulse Rate 88 12/07/24 20:34 Respiratory Rate 20 12/07/24 20:34 Blood Pressure 112/74 12/07/24 20:34 Blood Pressure Mean 86 12/07/24 20:34 Blood Pressure Position Sitting 12/07/24 20:34 Pulse Oximetry 99 12/07/24 20:34 Oxygen Delivery Method Room Air 12/07/24 20:34 Vital Signs Temperature 97 F L 12/07/24 20:34 Pulse Rate 88 12/07/24 20:34 Respiratory Rate 20 12/07/24 20:34 Blood Pressure 112/74 12/07/24 20:34 Pulse Oximetry 99 12/07/24 20:34 Oxygen Delivery Method Room Air 12/07/24 20:34 Temperature 97 F L 12/07/24 20:34 Pulse Rate 76 12/07/24 23:03 Respiratory Rate 20 12/07/24 20:34 Blood Pressure 112/69 12/07/24 23:03 Pulse Oximetry 100 12/07/24 23:03 Oxygen Delivery Method Room Air 12/07/24 23:03 Medications Administered Medications: Discontinued Medications Generic Name Dose Route Start Last Admin Trade Name Freq PRN Reason Stop Dose Admin Sodium Chloride 1,000 mls @ 500 mls/hr 12/07/24 21:38 12/07/24 22:11 0.9 % Sodium Chloride 1000 Ml IV 12/07/24 23:37 500 mls/hr .Q2H WEN Administration MDM - SOB/Dyspnea Lab Data Attestation: I reviewed the patient's lab results. Labs: Lab Results 12/07/24 12/07/24 Range/Units 20:40 21:39 WBC 6.58 (4.50-11.00) K/uL RBC 3.88 L (4.00-5.20) m/uL Hgb 9.5 L (12.0-16.0) gm/dL Hct 30.0 L (33.0-51.0) % MCV 77 L (80-100) fL MCH 25 L (26-34) pg MCHC 32 (32-36) gm/dL RDW Coeff of Abilio 14.7 (11.5-15.5) % Plt Count 214 (140-440) K/uL Neut % (Auto) 63.8 (42.0-72.0) % Lymph % (Auto) 28.7 (20-44) % Woodson % (Auto) 6.8 (0.0-11.0) % Eos % (Auto) 0.2 (0.0-7.0) % Baso % (Auto) 0.2 (0.0-3.0) % Neut # (Auto) 4.20 (1.7-7.0) K/uL Lymph # (Auto) 1.89 (0.90-2.90) K/uL Woodson # (Auto) 0.40 (0.00-0.90) K/UL Eos # (Auto) 0.01 (0.00-0.50) K/uL Baso # (Auto) 0.01 (0.00-0.30) K/uL Abs Immat Gran (auto) 0.02 (0.00-0.30) K/uL Imm/Tot Granulo (auto) 0.3 % VBG pH 7.477 H (7.32-7.43) VBG pCO2 30 L (40-50) mmHG VBG pO2 63.2 H (25-47) mmHG VBG HCO3 22 (21-28) mmol/L Sodium 134 L (135-149) mmol/L Potassium 3.7 (3.6-5.1) mmol/L Chloride 107 (96-114) mmol/L Carbon Dioxide 20 (20-32) mmol/L Anion Gap 7 (7-15) mEq/L BUN 11 (5-24) mg/dL Creatinine 0.4 L (0.5-1.5) mg/dL Estimated GFR 136 ml/min Glucose 88 (60-115) mg/dL Calcium 8.3 L (8.4-10.6) mg/dL Total Bilirubin 0.2 (0.1-1.5) mg/dL Direct Bilirubin 0.1 (0.0-0.5) mg/dL AST 21 (12-35) U/L ALT 18 (4-35) U/L Alkaline Phosphatase 73 (40-150) U/L Troponin I < 0.01 L (0.01-0.04) ng/mL C-Reactive Protein < 0.5 L (0.5-1.0) mg/dL NT-Pro-B Natriuret Pep < 20 pg/mL Total Protein 6.2 (6.0-8.3) g/dL Albumin 3.5 (3.3-5.0) g/dL Procalcitonin 0.05 (<0.50) ng/mL TSH 0.408 (0.270-4.200) uIU/mL Urine Color Yellow (Yellow) Urine Appearance Clear (Clear) Urine pH 6.5 (5.0-8.5) Ur Specific [place] 1.010 (1.000-1.030) Urine Protein Negative (Negative) Urine Glucose (UA) Negative (Negative) Urine Ketones 2+ A (Negative) Urine Blood Negative (Negative) Urine Nitrite Negative (Negative) Urine Bilirubin Negative (Negative) Urine Urobilinogen 0.2 (0.2-1.0) Ur Leukocyte Esterase Negative (Negative) Urine RBC 0-2 (0-2) Urine WBC 0-2 (0-5) Ur Squamous Epith Cells None (None-Few) Urine Bacteria None (None) Imaging Data Chest x-ray: Attestation: I have reviewed the pertinent imaging results. My impression: I do not appreciate any acute pathology, no infiltrate, await Radiology over-read. Radiologist's impression: Patient: HEATHER LEYVA Facility:?[facility] Patient ID:?[id number] Site Patient ID:?[id number]. Site :?1995 Study:?XRay-Chest pcxr 1v-12/07/2024 11:13:53 PM Ordering Physician:Fabian Tinsley Final Report: INDICATION: Shortness of breath, recent illness, 22 weeks . TECHNIQUE: Chest 1 view. COMPARISON: CT chest 12/01/2024. FINDINGS: Cardiovascular: Heart size and vasculature are normal in caliber and appearance. Lungs and pleural spaces: Lungs are clear without focal consolidation. No sign of pleural effusion. No pneumothorax identified. Bones and soft tissues: No significant findings. IMPRESSION: No acute cardiopulmonary findings. Dictated by Scarlett Araiza MD @ 12/07/2024 11:41:23 PM (Electronic Signature) ECG Data Attestation: I personally reviewed and interpreted this ECG as follows: (Normal sinus rhythm, 84 beats per minute. No ischemia, no infarct.) ECG interpretation date: 12/07/24 ECG interpretation time: 21:30 Discharge Plan Discharge Clinical Impression: Shortness of breath Anemia affecting Qualifiers: Trimester: second trimester Qualified Code(s): O99.012 - Anemia complicating , second trimester Patient Disposition: Home, Self-Care Condition: Stable Additional Instructions: Hemoglobin was 9.5 tonight. Please talk to the maternal medicine specialist regarding your anemia and recommendations, talk to them about the omeprazole and see if there is a better proton pump inhibitor for you to be on in . You are recommended to drink more, goal is to have urine clear looking. If you develop fevers, cough, increasing shortness of breath or difficulty breathing, do recommend re-evaluation and consideration of a repeat chest CT. Activity Level: Activity as Tolerated Prescriptions: No Action DHA 200 mg capsule PO omeprazole 20 mg capsule,delayed release(DR/EC) 20 mg PO QDAY 84 Days Qty: 84 0RF ferrous gluconate 225 mg (27 mg iron) tablet 225 mg PO QDAY Follow Up/Referrals: Zakia Hollis MD [Staff Physician] - Stand Alone Forms: [employer] Info Instructions
[2024-12-07 21:37] LABS: RBC Urine 0-2 (0-2); WBC Urine 0-2 (0-5)
--- OUTSIDE RECORDS SUMMARY | 2024-12-07 21:37 | XMS_ITS | Encounter Summary ---
Author Organization [place] Address [address] [facility] [place] [address] Care Team Providers Care Care Trainer Name Role Phone No Ref-Primary, Physician Primary Care Provider Reason for Referral * Diagnostic Imaging Ultrasound (Routine) - Pending Review Specialty Diagnoses / Procedures Referred By Contac t Referred To Contact Radiology. 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 Procedures MFM Twins US Comprehensive F/U Flower Amato MD [address] [place] [address] Phone: tel: fax: Referral ID Status Reason Start Date Expiration Date V isits Requested Visits Authorized [id number] Pending Review 11/14/2024 11/14/2025 1 1 INDERGARTEN TEACHER Reason for Visit * Reason Comments Ultrasound L2-mono/di twins Encounter Details Date Type Department Care Team (Latest Contact Info) Description 11/14/2024 11:30 AM PREKINDERGARTEN TEACHER Office Visit [facility] Maternal Medicine Center [place] [address] [facility] [address] [place] [address] Flower Amato MD [address] [place] [address] Monochorionic diamniotic twin gestation in [...] on file Legal Sex Female 11:44 PM PREKINDERGARTEN TEACHER Gender Identity Not on file Sexual Orientation Not on file documented as of this encounter Progress Notes * Flower Amato MD - 11/14/2024 11:30 AM CST The patient was seen for an ultrasound in the Maternal- Medicine Center at the [facility] today. For a detailed report of the ultrasound examination, please see the ultrasound report which can be found under the imaging tab. If you have questions regarding today's evaluation or if we can be of further service, please contact the Maternal- Medicine Center. Flower Amato MD Supervisor [employer], CONSUMER EDUCATION SPECIALIST Maternal- Medicine [phone] (Pager) INDERGARTEN TEACHER documented in this encounter Nursing Notes * April Baker RN - 11/14/2024 11:30 AM CST Patient reports positive movement, denies contractions, leaking of fluid, or bleeding. SBAR given to [facility], see their note in Epic. INDERGARTEN TEACHER documented in this encounter Plan of Treatment Upcoming Encounters Date Type Department Care Team (Late st Contact Info) Description 12/10/2024 1:30 PM PREKINDERGARTEN TEACHER Appointment [facility] M[facility] Medicine Center [address] [place] [phone] Jesus Harmon MD [address] [place] [address] 12/10/2024 2:00 PM PREKINDERGARTEN TEACHER Office Visit [facility] [place] [address] [place] [address] Jesus Harmon MD [address] [place] [address] 12/10/2024 2:15 PM PREKINDERGARTEN TEACHER Office Visit [facility] M[facility] Medicine [facility] [place] [address] [place] [address] Jesus Harmon MD [address] [place] [address] 12/12/2024 8:45 AM PREKINDERGARTEN TEACHER Appointment [facility] Maternal Medicine [facility] [address] [place] [phone] Diane Lopez MD [address] [address] 12/12/2024 9:15 AM PREKINDERGARTEN TEACHER Office Visit [facility] Maternal Medicine [facility] [address] [place] [address] Diane Lopez MD [address] [address] 12/14/2024 1:30 PM PREKINDERGARTEN TEACHER Ancillary Procedure [facility] Maternal Medicine [address] [place] [phone] Jesus Harmon MD [address] [place] [address] 12/14/2024 2:00 PM PREKINDERGARTEN TEACHER Office Visit [facility] Maternal Medicine [address] [place] [phone] Jesus Harmon MD [address] [place] [address] 12/17/2024 12:45 PM PREKINDERGARTEN TEACHER Appointment [facility] [place] [address] [place] [address] Jesus Harmon MD [address] [place] [address] 12/17/2024 1:15 PM PREKINDERGARTEN TEACHER Office Visit [facility] Maternal Medicine [facility] [address] [facility] [place] [address] Jesus Harmon MD [address] [place] [address] 12/17/2024 1:30 PM PREKINDERGARTEN TEACHER Office Visit [facility] Maternal Medicine [facility] [address] [facility] [place] [address] Jesus Harmon MD [address] [place] [address] 12/19/2024 9:30 AM PREKINDERGARTEN TEACHER Appointment [facility] Maternal Medicine [facility] [address] [facility] [address] [place] [phone] Nicole Núñez MD [address] [facility] [place] [address] Flower Amato MD [address] [facility] [address] [place], [place] [address] 12/19/2024 10:00 AM PREKINDERGARTEN TEACHER Office Visit [facility] Maternal Medicine [facility] [address] [facility] [address] [place] [phone] Nicole Núñez MD [address] [facility] [address] [place], [place] [address] Flower Amato MD [address] [facility] [address] [facility] [address] [address] 12/21/2024 11:45 AM PREKINDERGARTEN TEACHER Appointment [facility] Maternal Medicine [facility] [address] [facility] [address] [place] [phone] Jesus Hamron MD [address] [place] [address] Karin Esteban MD [address] [facility] [address] 12/21/2024 12:15 PM PREKINDERGARTEN TEACHER Office Visit [facility] Maternal Medicine [facility] [address] [facility] [address] [place] [phone] Jesus Harmon MD [address] [place] [address] Karin Esteban MD [address] [facility] [address] [address] [address] 12/24/2024 11:00 AM PREKINDERGARTEN TEACHER Appointment [facility] Maternal Medicine [facility] [address] [place] [address] Jesus Harmon MD [address] [place] [address] 12/24/2024 11:30 AM PREKINDERGARTEN TEACHER Office Visit [facility] Maternal Medicine [facility] [address] [place] [address] Jesus Harmon MD [address] [place] [address] 12/24/2024 11:45 AM PREKINDERGARTEN TEACHER Office Visit [facility] [place] [address] [place] [address] Jesus Harmon MD [address] [place] [address] 12/26/2024 10:15 AM PREKINDERGARTEN TEACHER Appointment [facility] M[facility] Medicine Center [place] [address] [place] [phone] Jesus Harmon MD [address] [place] [address] 12/26/2024 10:45 AM PREKINDERGARTEN TEACHER Office Visit [facility] M[facility] Medicine Center [place] [address] [place] [phone] Jesus Harmon MD [address] [place] [address] 12/28/2024 10:15 AM PREKINDERGARTEN TEACHER Appointment [facility] [place] [address] [place] [phone] Diane Lopez MD [address] [place] [address] 12/28/2024 10:45 AM PREKINDERGARTEN TEACHER Office Visit [facility] M[facility] Medicine Center [place] [address] [place] [phone] Diane Lopez MD [address] [place] [address] 01/11/2025 10:15 AM CDT Appointment [facility] [place] [address] [place] [phone] Diane Lopez MD [address] [place], [place] [address] 01/11/2025 10:45 AM CDT Office Visit [facility] Maternal Medicine [facility] [address] [facility] [address] [place] [address] Diane Lopez MD [address] [place], [place] [phone] documented as of this encounter Results * MFM Twins US Comprehensive F/U (11/22/2024 11:09 AM PREKINDERGARTEN TEACHER) Anatomical Region Laterality Modality Ultrasound 11/22/2024 9:46 AM PREKINDERGARTEN TEACHER Impressions 11/23/2024 6:03 PM PREKINDERGARTEN TEACHER IMPRESSION ----- Monochorionic diamniotic twin gestation [...] anemia polycythemia syndrome. Narrative 11/23/2024 6:03 PM PREKINDERGARTEN TEACHER Surveillance US ----- Pat. Name: DEANDRE CHÁVEZ Study Date: 11/22/2024 9:46am Pat. NO: [id number] Referring MD: PAMELA CUELLAR Site: Hris Developer: José Miguel Hussein RDMS : 1995 Age: [...] the patient (reviewing medical records/tests), in direct [id number] contact with the patient counseling and discussing the plan of care, documenting the visit in the electronic medical record, and communicating with other health restorative care technician and/or care coordination. Procedure Note Nicole Núñez MD - 11/23/2024 [facility] ----- Pat. Name: DEANDRE CHÁVEZ Study Date: 11/22/2024 9:46am Pat. NO: [id number] Referring MD: PAMELA CUELLAR Site: Hris Developer: José Miguel Hussein RDMS : 1995 Age: [...] see the patient(reviewing medical records/tests), in direct [id number]-klbl contact with the patient counseling and discussingthe plan of care, documenting the visit in the electronic medical record,and communicating with other health restorative care technician and/or care coordination. IMPRESSION ----- Monochorionic diamniotic [...] anemia polycythemia syndrome. us Flower Amato MD [facility] ORDERABLES Edited Re sult - Final [...] antepartum documented in this encounter Care Teams Care Trainer Relationship Specialty Start Date End Date No Ref-Primary, Physician PCP - General 12/04/21 documented as of this encounter
--- OUTSIDE RECORDS SUMMARY | 2024-12-07 21:37 | XMS_ITS | Clinical Summary ---
Author Organization [facility] Address [place], [place] [address] Care Team Providers Care Welding Machine Operator Gas Metal Arc Name Role Phone Merline Duffy MD Unavailable [phone] Amina Gardner MD Primary Care Provider Allergies [...] Vag 7 9 KOPYL OV,BB HEATHER Delivery Location:[facility]) Last Filed Vital Signs [...] Amina Gardner MD SEND OUTS Final Result [id number] [place] [address] * Patient Source ANTI HCV (04/15/2019 10:29 AM CDT) HEPATITIS C ANTIBODY Non-React pamella Non-React pamella 04/16/2019 5:11 PM CDT [facility] Comment:Antibodies to HCV no t detected; does not exclude the possibility of exposure to HCV. Blood BLOOD SPECIMEN / Unknown Venipuncture / Unknown 04/15/2019 10:29 AM CDT 04/15/2019 10:35 AM CDT us Amina Gardner MD SEND OUTS Final Result [facility] [address] [place] [address], [place] from Last 3 Months or Most Recently Relevant to Health Maintenance Insurance [facility] [employer] INS Advance Directives * Full Code (Latest Code Status on File) Date Activated Date Inactivated Comments 04/15/2019 9:55 PM 04/17/2019 11:28 PM Question Answer Comments Code Status Discussion: Not Discussed Care Teams Welding Machine Operator Gas Metal Arc Relationship Specialty Start Date End Date Amina Gardner MD [address] [facility] [address] [place] [address] PCP - General Family Practice 12/08/18 Merline Duffy MD [address] [facility] [address] [place] [address] Family Practice 03/22/18
--- OUTSIDE RECORDS SUMMARY | 2024-12-07 21:37 | XMS_ITS | Encounter Summary ---
Author Organization [facility] Address [address] [place] [address] Care Team Providers Care Gem Cutter Name Role Phone No Ref-Primary, Physician Primary Care Provider Reason for Referral * Diagnostic Imaging Ultrasound (Routine) - Pending Review Specialty Diagnoses / Procedures Referred By Johnsonac maxx Referred To Contact Radiology. Diagnoses Monochorionic diamniotic twin gestation Procedures MFM Twins Diane Montez MD [address] [place] [address] Phone: tel: fax: Referral ID Status Reason Start Date Expiration Date V isits Requested Visits Authorized [id number] Pending Review 10/19/2024 10/19/2025 1 1 APPLIANCE REPAIRER Reason for Visit * Diagnostic Imaging Ultrasound (Routine) - Pending Review Specialty Diagnoses / Procedures Referred By Noa lilly Referred To Contact Radiology. Diagnoses Monochorionic diamniotic twin gestation Procedures MFM Twins Diane Montez MD [address] [place] [address] Phone: tel: fax: Referral ID Status Reason Start Date Expiration Date V isits Requested Visits Authorized [id number] Pending Review 10/19/2024 10/19/2025 1 1 Encounter Details Date Type Department Care Team (Latest Contact Info) Description 11/14/2024 10:09 AM GAS APPLIANCE REPAIRER - 11/14/2024 11:59 PM GAS APPLIANCE REPAIRER Hospital Encounter [facility] [place] [address] [facility] [address] [place] [address] Flower Amato MD [address] [facility] [address] [place] [address] Monochorionic diamniotic twin gestation in second trimester [...] on file Legal Sex Female 11:44 PM GAS APPLIANCE REPAIRER Gender Identity Not on file Sexual [...] st Contact Info) Description 12/10/2024 1:30 PM GAS APPLIANCE REPAIRER Appointment [facility] [address] [place] [address] Jesus Harmon MD [address] [place] [address] 12/10/2024 2:00 PM GAS APPLIANCE REPAIRER Office Visit [facility] [address] [place] [phone] Jesus Harmon MD [address] [place] [address] 12/10/2024 2:15 PM GAS APPLIANCE REPAIRER Office Visit [facility] [address] [place] [address] Jesus Harmon MD [address] [place] [address] 12/12/2024 8:45 AM GAS APPLIANCE REPAIRER Appointment [facility] [address] [place] [phone] Diane Lopez MD [address] [address] [address] 12/12/2024 9:15 AM GAS APPLIANCE REPAIRER Office Visit [facility] [address] [place] [phone] Diane Lopez MD [address] [address] [facility] [address] [place] [address] 12/14/2024 1:30 PM GAS APPLIANCE REPAIRER Ancillary Procedure [facility] [address] [place] [address] Jesus Harmon MD [address] [place] [address] 12/14/2024 2:00 PM GAS APPLIANCE REPAIRER Office Visit [facility] [address] [place] [phone] Jesus Harmon MD [address] [place] [address] 12/17/2024 12:45 PM GAS APPLIANCE REPAIRER Appointment [facility] [place] [address] [place] [phone] Jesus Harmon MD [address] [place] [address] 12/17/2024 1:15 PM GAS APPLIANCE REPAIRER Office Visit [facility] [place] [address] [place] [address] Jesus Harmon MD [address] [place] [address] 12/17/2024 1:30 PM GAS APPLIANCE REPAIRER Office Visit [facility] [place] [address] [place] [address] Jesus Harmon MD [address] [place] [address] 12/19/2024 9:30 AM GAS APPLIANCE REPAIRER Appointment [facility] [address] [facility] [address] [place] [address] Nicole Núñez MD [address] [place] [address] Flower Amato MD [address] [address] 12/19/2024 10:00 AM GAS APPLIANCE REPAIRER Office Visit [facility] [place] [address] [place] [phone] Nicole Núñez MD [address] [facility] [place] [address] Flower Amato MD [address] [address] [address] 12/21/2024 11:45 AM GAS APPLIANCE REPAIRER Appointment [facility] [place] [address] [place] [phone] Jesus Harmon MD [address] [place] [address] Karin Esteban MD [address] [address] [address] 12/21/2024 12:15 PM GAS APPLIANCE REPAIRER Office Visit [facility] [place] [address] [place] [phone] Jesus Harmon MD [address] [place] [address] Karin Esteban MD [address] [address] [address] 12/24/2024 11:00 AM GAS APPLIANCE REPAIRER Appointment [facility] [address] [phone] Jesus Harmon MD [address] [place] [address] 12/24/2024 11:30 AM GAS APPLIANCE REPAIRER Office Visit [facility] [place] [address] [place] [address] Jesus Harmon MD [address] [place] [address] 12/24/2024 11:45 AM GAS APPLIANCE REPAIRER Office Visit [facility] [address] [place] [address] Jesus Harmon MD [address] [place] [address] 12/26/2024 10:15 AM GAS APPLIANCE REPAIRER Appointment [facility] [place] [address] [place] [phone] Jesus Harmon MD [address] [place] [address] 12/26/2024 10:45 AM GAS APPLIANCE REPAIRER Office Visit [facility] [place] [address] [place] [phone] Jesus Harmon MD [address] [place] [address] 12/28/2024 10:15 AM GAS APPLIANCE REPAIRER Appointment [facility] [place] [address] [place] [phone] Diane Lopez MD [address] [address] 12/28/2024 10:45 AM GAS APPLIANCE REPAIRER Office Visit [facility] [place] [address] [place] [phone] Diane Lopez MD [address] [place], [place] [address] 01/11/2025 10:15 AM CDT Appointment [facility] [place] [address] [place] [phone] Diane Lopez MD [address] [place], [place] [address] 01/11/2025 10:45 AM CDT Office Visit [facility] [place] [address] [place] [phone] Diane Lopez MD [address] [place], [place] [phone] documented as of this encounter Procedures Procedure Name Priority Date/Time Associated Diagnosis Comments MFM TWINS US COMPREHENSIVE Routine 11/14/2024 11:59 AM GAS APPLIANCE REPAIRER Monochorionic diamniotic twin gestation in second trimester documented in this encounter Results * MFM Twins US Comprehensive (11/14/2024 11:59 AM GAS APPLIANCE REPAIRER) Anatomical Region Laterality Modality Ultrasound 11/14/2024 10:2 4 AM GAS APPLIANCE REPAIRER Impressions 11/14/2024 4:40 PM GAS APPLIANCE REPAIRER IMPRESSION ----- Monochorionic diamniotic twin gestation [...] anemia polycythemia syndrome. Narrative 11/14/2024 4:40 PM GAS APPLIANCE REPAIRER Comprehensive ----- Pat. Name: DEANDRE CHÁVEZ Study Date: 11/14/2024 10:24am Pat. NO: [id number] Referring MD: PAMELA CUELLAR Site: Tube Operator: Emertia Corona RDMS : 1995 Age: 29 ----- [...] 0 lb 11 oz EFW by Hadlock ([id number]) EFW discordance 30.6 % Head / Face / Neck Biometry: Marketing Strategy Manager 6.9 mm CM 2.6 mm Nasal [...] 0 lb 8 oz EFW by Hadlock ([id number]) EFW discordance 30.6 % Head / Face / Neck Biometry: Marketing Strategy Manager 6.8 mm CM 4.4 mm Extremities [...] view. RVOT view. LVOT view. 3-vessel view. 6-qokdrk-jmcwosj view. Situs. Aortic arch view. Bicaval view. [...] Thorax 4-chamber view. RVOT view. LVOT view. 6-speiey-lnlcvhk view. Aortic arch view. sex: female. Fetus [...] recommendation. She was again offered referral to [facility] for a second opinion/discussion about options in [...] the patient (reviewing medical records/tests), in direct bzwf-vk-nwaj contact with the patient counseling and discussing the plan of care, documenting the visit in the electronic medical record, and communicating with other health manager intensive care and/or care coordination. Please see note for details. Procedure Note Flower Amato MD - 11/14/2024 Comprehensive ----- Pat. Name: DEANDRE CHÁVEZ Study Date: 11/14/2024 10:24am Pat. NO: [id number] Referring MD: PAMELA CUELLAR Site: Tube Operator: Emerita Corona RDMS : 1995 Age: 29 [...] EFW (lb,oz) 0 lb 11oz EFW by Hadlock([id number]) EFW discordance 30.6% Head / Face / Neck Biometry: Marketing Strategy Manager 6.9mm CM 2.6mm Nasal bone 7.8mm Fetus 2: BIOMETRY ----- BPD 42.9mm 19w 0dHadlock OFD 55.1mm 18w 2dNicolaides HC 156.8mm 18w 4dHadlock Cerebellum tr 18.1mm 18w 0dNicolaides Nuchal fold 3.0mm AC 128.0mm 18w 3d 15%Hadlock Femur 24.5mm 17w 3dHadlock Humerus 23.5mm 17w 2dJeanty Weight Calculation: EFW 219g 2%Hadlock EFW (lb,oz) 0 lb 8oz EFW by Hadlock([id number]) EFW discordance 30.6% Head / Face / Neck Biometry: Marketing Strategy Manager 6.8mm CM 4.4mm Extremities / Bony Struc Biometry: Rt Humerus 23.7mm 17w 2dJeanty Rt Radius 21.1mm 6%Valadez Rt Ulna 23.0mm 8%Valadez Lt Humerus 23.5mm 17w 2dJeanty Lt Radius 19.9mm 2%Vaaldez Lt Ulna 22.4mm 5%Valadez Rt Femur 24.5mm [...] 4-chamber view. RVOT view. LVOT view.3-vessel view. 8-zhgbwr-ohmlsri view. Situs. Aortic arch view. Bicavalview. Ductal [...] / Thorax 4-chamber view. RVOT view. LVOT view.3-wszlit-goqlwuh view. Aortic arch view. sex: female. Fetus [...] the recommendation. She was again offered referralto [facility] for a second opinion/discussion about options in [...] see the patient(reviewing medical records/tests), in direct jkjo-ko-iaat contact with the patient counseling and discussingthe plan of care, documenting the visit in the electronic medical record,and communicating with other health manager intensive care and/or care coordination. Please see note [...] anemia polycythemia syndrome. us Diane Lopez MD [facility] ORDERABLES Edited Result - Final documented in [...] antepartum documented in this encounter Care Teams Gem Cutter Relationship Specialty Start Date End Date No Ref-Primary, Physician PCP - General 12/04/21 documented as of this encounter
--- OUTSIDE RECORDS SUMMARY | 2024-12-07 21:38 | XMS_ITS | Encounter Summary ---
Author Organization [facility] Address [address] [place] [address] Care Team Providers Care Vocational Rehabilitation Teacher Name Role Phone No Ref-Primary, Physician Primary Care Provider Flower Amato MD Unavailable [phone] Reason for Referral * Consultation (Routine: Next available opening) - Pending Review Specialty Diagnoses / Procedures Referred By Noa lilly Referred To Contact Diagnoses Monochorionic diamniotic twin , antepartum Poor growth affecting management of mother in second trimester, fetus 2 Umbilical cord complication, unspecified cord complication, fetus 2 Jesus Harmon MD [address] [place] [address] Phone: tel: fax: Referral ID Status Reason Start Date Expiration Date V isits Requested Visits Authorized [id number] Pending Review 12/05/2024 12/05/2025 3 3 Question Answer Office Visit Type: OB Visit - Follow-Up Comments Weekly OB visits S ROLLING MACHINE OPERATOR * Diagnostic Imaging Ultrasound (Routine) - Pending Review Specialty Diagnoses / Procedures Referred By Noa lilly Referred To Contact Radiology. Diagnoses Monochorionic diamniotic twin , antepartum Procedures MFM Twins US Comprehensive F/U Jesus Harmon MD [address] [place] [address] Phone: tel: fax: Referral ID Status Reason Start Date Expiration Date V isits Requested Visits Authorized [id number] Pending Review 12/05/2024 12/05/2025 1 1 S ROLLING MACHINE OPERATOR * Diagnostic Imaging Ultrasound (Routine) - Pending Review Specialty Diagnoses / Procedures Referred By Contac t Referred To Contact Radiology. Diagnoses Monochorionic diamniotic twin , antepartum Procedures MFM Twins US Comprehensive F/U Jesus Harmon MD [address] [place] [address] Phone: tel: fax: Referral ID Status Reason Start Date Expiration Date V isits Requested Visits Authorized [id number] Pending Review 12/05/2024 12/05/2025 1 1 S ROLLING MACHINE OPERATOR * Diagnostic Imaging Ultrasound (Routine) - Pending Review Specialty Diagnoses / Procedures Referred By Contac t Referred To Contact Radiology. Diagnoses Monochorionic diamniotic twin , antepartum Procedures MFM Twins US Comprehensive F/U Jesus Harmon MD [address] [place] [address] Phone: tel: fax: Referral ID Status Reason Start Date Expiration Date V isits Requested Visits Authorized [id number] Pending Review 12/05/2024 12/05/2025 1 1 S ROLLING MACHINE OPERATOR * Diagnostic Imaging Ultrasound (Routine) - Pending Review Specialty Diagnoses / Procedures Referred By Contac t Referred To Contact Radiology. Diagnoses Monochorionic diamniotic twin , antepartum Procedures MFM Twins US Comprehensive F/U Jesus Harmon MD [address] [place] [address] Phone: tel: fax: Referral ID Status Reason Start Date Expiration Date V isits Requested Visits Authorized [id number] Pending Review 12/05/2024 12/05/2025 1 1 S ROLLING MACHINE OPERATOR * Diagnostic Imaging Ultrasound (Routine) - Pending Review Specialty Diagnoses / Procedures Referred By Contac t Referred To Contact Radiology. Diagnoses Monochorionic diamniotic twin , antepartum Procedures MFM Twins US Comprehensive F/U Jesus Harmon MD [address] [place] [address] Phone: tel: fax: Referral ID Status Reason Start Date Expiration Date V isits Requested Visits Authorized [id number] Pending Review 12/05/2024 12/05/2025 1 1 S ROLLING MACHINE OPERATOR * Diagnostic Imaging Ultrasound (Routine) - Pending Review Specialty Diagnoses / Procedures Referred By Contac t Referred To Contact Radiology. Diagnoses Monochorionic diamniotic twin , antepartum Procedures MFM Twins US Comprehensive F/U Jesus Harmon MD [address] [place] [address] Phone: tel: fax: Referral ID Status Reason Start Date Expiration Date V isits Requested Visits Authorized [id number] Pending Review 12/05/2024 12/05/2025 1 1 S ROLLING MACHINE OPERATOR * Diagnostic Imaging Ultrasound (Routine) - Pending Review Specialty Diagnoses / Procedures Referred By Contac t Referred To Contact Radiology. Diagnoses Monochorionic diamniotic twin , antepartum Procedures MFM Twins US Comprehensive F/U Jesus Harmon MD [address] [place] [address] Phone: tel: fax: Referral ID Status Reason Start Date Expiration Date V isits Requested Visits Authorized [id number] Pending Review 12/05/2024 12/05/2025 1 1 S ROLLING MACHINE OPERATOR Reason for Visit * Reason Comments Ultrasound RL2/UAR/MCA- mono/di twins, FGR fetus 2 Encounter Details Date Type Department Care Team (Latest Contact Info) Description 12/05/2024 12:15 PM GLASS ROLLING MACHINE OPERATOR Office Visit [facility] [place] [address] [place], [place] [address] Karin Esteban MD [address] [place], [place] [address] Jesus Harmon MD [address] [place], [place] [address] Monochorionic diamniotic twin , antepartum (Primary Dx); [...] on file Legal Sex Female 11:44 PM GLASS ROLLING MACHINE OPERATOR Gender Identity Not on file Sexual Orientation Not on file documented as of this encounter Last Filed Vital Signs Vital Sign Reading Time Taken Comments Blood Pressure 111/70 12/05/2024 1:59 PM GLASS ROLLING MACHINE OPERATOR Pulse 73 12/05/2024 1:59 PM GLASS ROLLING MACHINE OPERATOR Temperature - - Respiratory Rate 18 12/05/2024 1:59 PM GLASS ROLLING MACHINE OPERATOR Oxygen Saturation 100% 12/05/2024 1:59 PM GLASS ROLLING MACHINE OPERATOR Inhaled Oxygen Concentration - - Weight - - Height - - Body Mass Index - - documented in this encounter Progress Notes * Jesus Harmon MD - 12/05/2024 12:15 PM CST Please see Imaging tab under Chart Review for details of today's visit. Jesus Harmon S ROLLING MACHINE OPERATOR documented in this encounter Nursing Notes [...] to patient. Pt met with Dr. Joe (press box custodian) today. Pt discharged stable and ambulatory. Jennifer Arias RN S ROLLING MACHINE OPERATOR S ROLLING MACHINE OPERATOR documented in this encounter Miscellaneous Notes * Addendum Note - Jennifer Arias RN - 12/05/2024 12:15 PM CSTAddended by: JENNIFER ARIAS on: 12/05/2024 02:04 PM Modules accepted: Orders S ROLLING MACHINE OPERATOR documented in this encounter Plan of Treatment Upcoming Encounters Date Type Department Care Team (Late st Contact Info) Description 12/10/2024 1:30 PM GLASS ROLLING MACHINE OPERATOR Appointment [facility] [place] [address] [facility] [address] Jesus Harmon MD [address] [place] [address] 12/10/2024 2:00 PM GLASS ROLLING MACHINE OPERATOR Office Visit [facility] [place] [address] [facility] [place] [address] Jesus Harmon MD [address] [place] [address] 12/10/2024 2:15 PM GLASS ROLLING MACHINE OPERATOR Office Visit [facility] [place] [address] [facility] [address] Jesus Harmon MD [address] [place] [address] 12/12/2024 8:45 AM GLASS ROLLING MACHINE OPERATOR Appointment [facility] [address] [place] [address] Diane Lopez MD [address] [facility] [address] [place] [address] 12/12/2024 9:15 AM GLASS ROLLING MACHINE OPERATOR Office Visit [facility] [address] [place] [address] Diane Lopez MD [address] [address] 12/14/2024 1:30 PM GLASS ROLLING MACHINE OPERATOR Ancillary Procedure [facility] [address] [phone] Jesus Harmon MD [address] [place] [address] 12/14/2024 2:00 PM GLASS ROLLING MACHINE OPERATOR Office Visit [facility] [address] [phone] Jesus Harmon MD [address] [place] [address] 12/17/2024 12:45 PM GLASS ROLLING MACHINE OPERATOR Appointment [facility] [address] [place] [address] Jesus Harmon MD [address] [place] [address] 12/17/2024 1:15 PM GLASS ROLLING MACHINE OPERATOR Office Visit [facility] [place] [address] [place] [address] Jesus Harmon MD [address] [place] [address] 12/17/2024 1:30 PM GLASS ROLLING MACHINE OPERATOR Office Visit [facility] [place] [address] [facility] [place] [address] Jesus Harmon MD [address] [place] [address] 12/19/2024 9:30 AM GLASS ROLLING MACHINE OPERATOR Appointment [facility] [address] [place] [phone] Nicole Núñez MD [address] [facility] [place] [address] Flower Amato MD [address] [address] 12/19/2024 10:00 AM GLASS ROLLING MACHINE OPERATOR Office Visit [facility] [place] [address] [place] [phone] Nicole Núñez MD [address] [facility] [place] [address] Flower Amato MD [address] [address] 12/21/2024 11:45 AM GLASS ROLLING MACHINE OPERATOR Appointment [facility] [address] [place] [address] Jesus Harmon MD [address] [place] [address] Karin Esteban MD [address] [place] [address] 12/21/2024 12:15 PM GLASS ROLLING MACHINE OPERATOR Office Visit [facility] [address] [facility] [address] [place] [address] Jesus Harmon MD [address] [place] [address] Karin Esteban MD [address] [place] [address] 12/24/2024 11:00 AM GLASS ROLLING MACHINE OPERATOR Appointment [facility] [place] [address] [place] [phone] Jesus Harmon MD [address] [place] [address] 12/24/2024 11:30 AM GLASS ROLLING MACHINE OPERATOR Office Visit [facility] [place] [address] [place] [address] Jesus Harmon MD [address] [place] [address] 12/24/2024 11:45 AM GLASS ROLLING MACHINE OPERATOR Office Visit [facility] [place] [address] [facility] [place] [address] Jesus Harmon MD [address] [place] [address] 12/26/2024 10:15 AM GLASS ROLLING MACHINE OPERATOR Appointment [facility] [address] [place] [address] Jesus Harmon MD [address] [place] [address] 12/26/2024 10:45 AM GLASS ROLLING MACHINE OPERATOR Office Visit [facility] [place] [address] [address] [facility] [address] [place] [phone] Jesus Harmon MD [address] [place] [address] 12/28/2024 10:15 AM GLASS ROLLING MACHINE OPERATOR Appointment [facility] [place] [address] [address] [facility] [address] [place] [phone] Diane Lopez MD [address] [place] [address] 12/28/2024 10:45 AM GLASS ROLLING MACHINE OPERATOR Office Visit [facility] [place] [address] [address] [facility] [address] [place] [phone] Diane Lopez MD [address] [place], [place] [address] 01/11/2025 10:[address] [facility] [place] [address] [address] [facility] [address] [place] [phone] Diane Lopez MD [address] [place], [place] [address] 01/11/2025 10:45 AM CDT Office Visit [facility] [place] [address] [address] [facility] [address] [place] [phone] Diane Lopez MD [address] [place], [place] [address] Scheduled Orders Name Type Priority Associated Diagnoses [...] Type Priority Associated Diagnoses Orde r Schedule [facility] Office Visit - OB Visit - Follow-Up Referral Routine: Next available opening Monochorionic diamniotic twin , antepartum Poor growth affecting management of mother in second trimester, fetus 2 Umbilical cord complication, unspecified cord complication, fetus 2 Weekly for 3 Occurrences starting 12/05/2024 until 01/02/2025 documented as of this encounter Results * M Twins US Comprehensive F/U (12/07/2024 11:40 AM GLASS ROLLING MACHINE OPERATOR) Anatomical Region Laterality Modality Ultrasound 12/07/2024 10:4 5 AM GLASS ROLLING MACHINE OPERATOR Impressions 12/07/2024 1:23 PM GLASS ROLLING MACHINE OPERATOR IMPRESSION ----- Patient here for [...] bladder is visualized. Narrative 12/07/2024 1:23 PM [facility] Surveillance US ----- Pat. Name: DEANDRE LEYVA Study Date: 12/07/2024 10:45am Pat. NO: [id number] Referring MD: PAMELA CUELLAR Site: [place] Cutter: Kenyetta Lyons RDMS : 1995 Age: 29 [...] twin pregnancies with selective intrauterine growth restriction. [place] Journal of Obstetrics and Gynecology, 203(4), 333.e1-7. ? Radha HALL, et al. (2018). Consensus definition of growth restriction: A [place] procedure. Ultrasound in Obstetrics & Gynecology, 52(1), 24-29. ? Luisa Dennis, et al. (2020). Twin complications: The risk of single intrauterine demise in monochorionic twins. Diagnosis, 40(9), 1152-3786. ? Boris Dennis, et al. (2012). mortality [...] LEYVA Study Date: 12/07/2024 10:45am Pat. NO: [id number] Referring MD: PAMELA CUELLAR Site: [place] Cutter: Kenyetta Lyons RDMS : 1995 Age: 29 [...] in cases of AREDF in sFGR is [id number] weeks (Radha et al., 2018), though survival [...] al. (2018). Consensus definition of growthrestriction: A [place] procedure. Ultrasound in Obstetrics & Gynecology,52(1), 24-29. ? Luisa Dennis, et al. (2020). Twin complications: The risk ofsingle intrauterine demise in monochorionic twins. PrenatalDiagnosis, 40(9), 9882-5103. ? Boris M, et al. (2012). mortality [...] bladder is visualized. us Jesus Harmon MD [facility] US ORDERABLES Edited Result - [...] antepartum documented in this encounter Care Teams Vocational Rehabilitation Teacher Relationship Specialty Start Date End Date No Ref-Primary, Physician PCP - General 12/04/21 Flower Amato MD [address] [facility] [address] [place] [address] Assigned OBGYN Provider 11/22/24 documented as of this encounter
--- OUTSIDE RECORDS SUMMARY | 2024-12-07 21:38 | XMS_ITS | Encounter Summary ---
Author Organization [facility] Address [address] [place] [address] Care Team Providers Care Ems Director Name Role Phone No Ref-Primary, Physician [...] file Legal Sex Female 11:44 PM SUPERVISOR FERTILIZER PROCESSING Gender Identity Not on file Sexual Orientation Not on file documented as of this encounter Plan of Treatment Upcoming Encounters Date Type Department Care Team (Late st Contact Info) Description 12/10/2024 1:30 PM SUPERVISOR FERTILIZER PROCESSING Appointment [facility] [place] [address] [place] [phone] Jesus Harmon MD [address] [place] [address] 12/10/2024 2:00 PM SUPERVISOR FERTILIZER PROCESSING Office Visit [facility] [place] [address] [place], [place] [address] Jesus Harmon MD [address] [place] [address] 12/10/2024 2:15 PM SUPERVISOR FERTILIZER PROCESSING Office Visit [facility] Maternal Medicine [facility] [address] [place] [address] Jesus Harmon MD [address] [place] [address] 12/12/2024 8:45 AM SUPERVISOR FERTILIZER PROCESSING Appointment [facility] Maternal Medicine [facility] [address] [place] [phone] Diane Lopez MD [address] [place] [address] 12/12/2024 9:15 AM SUPERVISOR FERTILIZER PROCESSING Office Visit [facility] [address] [place] [address] Diane Lopez MD [address] [place] [address] 12/14/2024 1:30 PM SUPERVISOR FERTILIZER PROCESSING Ancillary Procedure [facility] [address] [phone] Jesus Harmon MD [address] [place] [address] 12/14/2024 2:00 PM SUPERVISOR FERTILIZER PROCESSING Office Visit [facility] [address] [phone] Jesus Harmon MD [address] [place] [address] 12/17/2024 12:45 PM SUPERVISOR FERTILIZER PROCESSING Appointment [facility] [place] [address] [place] [address] Jesus Harmon MD [address] [place] [address] 12/17/2024 1:15 PM SUPERVISOR FERTILIZER PROCESSING Office Visit [facility] [place] [address] [place] [address] Jesus Harmon MD [address] [place] [address] 12/17/2024 1:30 PM SUPERVISOR FERTILIZER PROCESSING Office Visit [facility]aternal Medicine [facility] [address] [facility] [place] [address] Jesus Harmon MD [address] [place] [address] 12/19/2024 9:30 AM SUPERVISOR FERTILIZER PROCESSING Appointment [facility] [address] [place] [phone] Nicole Núñez MD [address] [place], [place] [address] Flower Amato MD [address] [facility] [address] [place], [place] [address] 12/19/2024 10:00 AM SUPERVISOR FERTILIZER PROCESSING Office Visit [facility] [address] [place] [phone] Nicole Núñez MD [address] [place], [place] [address] Flower Amato MD [address] [place] [address] 12/21/2024 11:45 AM SUPERVISOR FERTILIZER PROCESSING Appointment [facility] [address] [facility] [address] [place] [address] Jesus Harmon MD [address] [place] [address] Karin Esteban MD [address] [place] [address] 12/21/2024 12:15 PM SUPERVISOR FERTILIZER PROCESSING Office Visit [facility]aternal [facility] [address] [facility] [address] [place] [address] Jesus Harmon MD [address] [place] [address] Karin Esteban MD [address] [place] [address] 12/24/2024 11:00 AM SUPERVISOR FERTILIZER PROCESSING Appointment [facility] [place] [address] [place] [phone] Jesus Harmon MD [address] [place] [address] 12/24/2024 11:30 AM SUPERVISOR FERTILIZER PROCESSING Office Visit [facility] [place] [address] [place] [address] Jesus Harmon MD [address] [place] [address] 12/24/2024 11:45 AM SUPERVISOR FERTILIZER PROCESSING Office Visit [facility] [place] [address] [place] [address] Jesus Harmon MD [address] [place] [address] 12/26/2024 10:15 AM SUPERVISOR FERTILIZER PROCESSING Appointment [facility] [place] [address] [place] [phone] Jesus Harmon MD [address] [place] [address] 12/26/2024 10:45 AM SUPERVISOR FERTILIZER PROCESSING Office Visit [facility] [place] [address] [address] [facility] [address] [place] [phone] Jesus Harmon MD [address] [place] [address] 12/28/2024 10:15 AM SUPERVISOR FERTILIZER PROCESSING Appointment [facility] [place] [address] [address] [facility] [address] [place] [phone] Diane Lopez MD [address] [place] [address] 12/28/2024 10:45 AM SUPERVISOR FERTILIZER PROCESSING Office Visit [facility] [place] [address] [address] [facility] [address] [place] [phone] Diane Lopez MD [address] [place] [address] 01/11/2025 10:15 AM CDT Appointment [facility] [place] [address] [place] [phone] Diane Lopez MD [address] [place] [address] 01/11/2025 10:45 AM CDT Office Visit [facility] [place] [address] [address] [facility] [address] [place] [phone] Diane Lopez MD [address] [place] [address] documented as of this encounter Visit Diagnoses Not on filedocumented in this encounter Care Teams Ems Director Relationship Specialty Start Date End Date No Ref-Primary, Physician PCP - General 12/04/21 documented as of this encounter
--- OUTSIDE RECORDS SUMMARY | 2024-12-07 21:38 | XMS_ITS | Encounter Summary ---
Author Organization [place] Address [address] [place] [address] Care Team Providers Care Operation Supervisor Name Role Phone No Ref-Primary, Physician Primary Care Provider Flower Amato MD Unavailable [phone] Reason for Referral * Diagnostic Imaging Ultrasound (Routine) - Pending Review Specialty Diagnoses / Procedures Referred By Noa lilyl Referred To Contact Radiology. 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 Intrauterine growth restriction affecting antepartum care of mother in first trimester, fetus 2 Procedures MFM Twins US Comprehensive F/U Nicole Núñez MD [address] [place] [address] Phone: tel: fax: Referral ID Status Reason Start Date Expiration Date V isits Requested Visits Authorized [id number] Pending Review 11/22/2024 11/22/2025 1 1 PROCESSING EQUIPMENT MECHANIC Reason for Visit * Reason Comments Ultrasound RL2/UAR/MCA: mono/di twins, TTTS check/ sFGR fetus 2 Encounter Details Date Type Department Care Team (Latest Contact Info) Description 11/22/2024 10:00 AM MAIL PROCESSING EQUIPMENT MECHANIC Office Visit [facility] [place] [address] [facility] [address] [place] [address] Nicole Núñez MD [address] [place] [address] Monochorionic diamniotic twin gestation in second [...] on file Legal Sex Female 11:44 PM MAIL PROCESSING EQUIPMENT MECHANIC Gender Identity Not on file Sexual [...] the Maternal- Medicine Center. Nicole Núñez MD Wet End Tester, TOOL GRINDER SET UP OPERATOR GEAR Maternal- Medicine PROCESSING EQUIPMENT MECHANIC documented in this encounter Nursing Notes [...] discharged stable and ambulatory. Joceline Bejarano RN PROCESSING EQUIPMENT MECHANIC PROCESSING EQUIPMENT MECHANIC documented in this encounter Plan of Treatment Upcoming Encounters Date Type Department Care Team (Late st Contact Info) Description 12/10/2024 1:30 PM MAIL PROCESSING EQUIPMENT MECHANIC Appointment [facility] [address] [address] Jesus Harmon MD [address] [place] [address] 12/10/2024 2:00 PM MAIL PROCESSING EQUIPMENT MECHANIC Office Visit [facility] [address] [address] Jesus Harmon MD [address] [place] [address] 12/10/2024 2:15 PM MAIL PROCESSING EQUIPMENT MECHANIC Office Visit [facility] [address] [address] Jesus Harmon MD [address] [place] [address] 12/12/2024 8:45 AM MAIL PROCESSING EQUIPMENT MECHANIC Appointment [facility] Maternal Medicine [facility] [address] [place] [phone] Diane Lopez MD [address] [place] [address] 12/12/2024 9:15 AM MAIL PROCESSING EQUIPMENT MECHANIC Office Visit [facility] Maternal Medicine [facility] [address] [place] [address] Diane Lopez MD [address] [place] [address] 12/14/2024 1:30 PM MAIL PROCESSING EQUIPMENT MECHANIC Ancillary Procedure [facility] Maternal Medicine [address] [phone] Jesus Harmon MD [address] [place] [address] 12/14/2024 2:00 PM MAIL PROCESSING EQUIPMENT MECHANIC Office Visit [facility] Maternal Medicine [address] [phone] Jesus Harmon MD [address] [place] [address] 12/17/2024 12:45 PM MAIL PROCESSING EQUIPMENT MECHANIC Appointment [facility] Maternal Medicine [facility] [address] [place] [address] Jesus Harmon MD [address] [place] [address] 12/17/2024 1:15 PM MAIL PROCESSING EQUIPMENT MECHANIC Office Visit [facility] [place] [address] [place] [address] Jesus Harmon MD [address] [place] [address] 12/17/2024 1:30 PM MAIL PROCESSING EQUIPMENT MECHANIC Office Visit [facility] Maternal Medicine [facility] [address] [place] [address] Jesus Harmon MD [address] [place] [address] 12/19/2024 9:30 AM MAIL PROCESSING EQUIPMENT MECHANIC Appointment [facility] Maternal Medicine [place] [address] [place] [address] Nicole Núñez MD [address] [place] [address] [place], [place] [phone] Flower Amato MD [address] [address] 12/19/2024 10:00 AM MAIL PROCESSING EQUIPMENT MECHANIC Office Visit [facility] Maternal Medicine [place] [address] [place] [phone] Nicole Núñez MD [address] [facility] [place] [address] Flower Amato MD [address] [address] 12/21/2024 11:45 AM MAIL PROCESSING EQUIPMENT MECHANIC Appointment [facility] Maternal Medicine [facility] [address] [place] [address] Jesus Harmon MD [address] [place] [address] Karin Esteban MD [address] [address] 12/21/2024 12:15 PM MAIL PROCESSING EQUIPMENT MECHANIC Office Visit [facility] M[facility] Medicine Center [place] [address] [place] [address] Jesus Harmon MD [address] [place] [address] Karin Esteban MD [address] [address] 12/24/2024 11:00 AM MAIL PROCESSING EQUIPMENT MECHANIC Appointment [facility] Maternal Medicine [facility] [address] [facility] [place] [phone] Jesus Harmon MD [address] [place] [address] 12/24/2024 11:30 AM MAIL PROCESSING EQUIPMENT MECHANIC Office Visit [facility] Medicine [facility] [place] [address] [place] [address] Jesus Harmon MD [address] [place] [address] 12/24/2024 11:45 AM MAIL PROCESSING EQUIPMENT MECHANIC Office Visit [facility] [place] [address] [facility] [place] [address] Jesus Harmon MD [address] [place] [address] 12/26/2024 10:15 AM MAIL PROCESSING EQUIPMENT MECHANIC Appointment [facility] Maternal Medicine [facility] [address] [place] [address] Jesus Harmon MD [address] [place] [address] 12/26/2024 10:45 AM MAIL PROCESSING EQUIPMENT MECHANIC Office Visit [facility] Maternal Medicine [facility] [address] [place] [address] Jesus Harmon MD [address] [place] [address] 12/28/2024 10:15 AM MAIL PROCESSING EQUIPMENT MECHANIC Appointment [facility] Maternal Medicine [place] [address] [facility] [address] [place] [phone] Diane Lopez MD [address] [place] [address] 12/28/2024 10:45 AM MAIL PROCESSING EQUIPMENT MECHANIC Office Visit [facility] Maternal Medicine [place] [address] [facility] [address] [place] [phone] Diane Lopez MD [address] [place], [place] [address] 01/11/2025 10:15 AM CDT Appointment [facility] Medicine [place] [address] [facility] [address] [place] [phone] Diane Lopez MD [address] [place] [address] 01/11/2025 10:45 AM CDT Office Visit [facility] Maternal Medicine [place] [address] [facility] [address] [place] [phone] Diane Lopez MD [address] [place], [place] [phone] Scheduled Orders Name Type Priority Associated Diagnoses Orde r Schedule MFM Twins US Comprehensive F/U Imaging Routine Monochorionic diamniotic twin gestation in second trimester Intrauterine growth restriction affecting antepartum care of mother in first trimester, fetus 2 Expected: 12/19/2024 (Approximate), Expires: 09/22/2025 documented as of this encounter Results * MFM Twins US Comprehensive F/U (12/05/2024 12:28 PM MAIL PROCESSING EQUIPMENT MECHANIC) Anatomical Region Laterality Modality Ultrasound 12/05/2024 11:3 2 AM MAIL PROCESSING EQUIPMENT MECHANIC Impressions 12/05/2024 1:37 PM MAIL PROCESSING EQUIPMENT MECHANIC IMPRESSION ----- Monochorionic diamniotic twin gestation [...] the a-wave today. Narrative 12/05/2024 1:37 PM MAIL PROCESSING EQUIPMENT MECHANIC [facility] Surveillance US ----- Pat. Name: DEANDRE CHÁVEZ Study Date: 12/05/2024 11:32am Pat. NO: [id number] Referring MD: PAMELA CUELLAR Site: Electrical Wirer: Piper LarkinmikeSUSAN hung : 1995 Age: 29 [...] the patient (reviewing medical records/tests), in direct rotq-zl-mqwa contact with the patient during the visit counseling and discussing the plan of care and documenting the visit in the electronic medical record. Procedure Note Jesus Harmon MD - 12/05/2024 Surveillance US ----- Pat. Name: DEANDRE CHÁVEZ Study Date: 12/05/2024 11:32am Pat. NO: [id number] Referring MD: PAMELA CUELLAR Site: Electrical Wirer: Piper TraemikeSUSAN hung : 1995 Age: 29 [...] see the patient(reviewing medical records/tests), in direct dcbh-az-sorh contact with the patient during the visitcounseling [...] in the a-wave today. Nicole Núñez MD [facility] ORDERABLES Edited Result - Final documented [...] antepartum documented in this encounter Care Teams Operation Supervisor Relationship Specialty Start Date End Date No Ref-Primary, Physician PCP - General 12/04/21 Flower Amato MD [address] [place] [address] Assigned OBGYN Provider 1/23/25 documented as of this encounter
--- OUTSIDE RECORDS SUMMARY | 2024-12-07 21:38 | XMS_ITS | Encounter Summary ---
Author Organization [place] Address [address] [place] [address] Care Team Providers Care Arrow Point Attacher Name Role Phone No Ref-Primary, Physician Primary Care Provider Reason for Referral * Diagnostic Imaging Ultrasound (Routine) - Pending Review Specialty Diagnoses / Procedures Referred By Noa lilly Referred To Contact Radiology. Diagnoses Monochorionic diamniotic twin gestation Procedures MFM Twins US Comprehensive F/U Diane Lopez MD [address] [facility] [address] [address] Phone: tel: fax: Referral ID Status Reason Start Date Expiration Date V isits Requested Visits Authorized [id number] Pending Review 10/19/2024 10/19/2025 1 1 TY OPERATOR Reason for Visit * Diagnostic Imaging Ultrasound (Routine) - Pending Review Specialty Diagnoses / Procedures Referred By Noa lilly Referred To Contact Radiology. Diagnoses Monochorionic diamniotic twin gestation Procedures MFM Twins US Alivia F/U Diane Lopez MD [address] [place] [address] Phone: tel: fax: Referral ID Status Reason Start Date Expiration Date V isits Requested Visits Authorized [id number] Pending Review 10/19/2024 10/19/2025 1 1 Encounter Details Date Type Department Care Team (Latest Contact Info) Description 11/08/2024 9:24 AM BEAUTY OPERATOR - 11/08/2024 11:59 PM BEAUTY OPERATOR Hospital Encounter [facility] M[facility] Medicine [facility] [place] [address] [facility] [address] [place] [address] Flor Dickson MD [address] [place], [place] [address] Monochorionic diamniotic twin gestation in second trimester [...] on file Legal Sex Female 11:44 PM BEAUTY OPERATOR Gender Identity Not on file Sexual [...] st Contact Info) Description 12/10/2024 1:30 PM BEAUTY OPERATOR Appointment [facility] Maternal Medicine [facility] [address] [place] [address] Jesus Harmon MD [address] [place] [address] 12/10/2024 2:00 PM BEAUTY OPERATOR Office Visit [facility] Maternal Medicine [facility] [address] [place] [address] Jesus Harmon MD [address] [place] [address] 12/10/2024 2:15 PM BEAUTY OPERATOR Office Visit [facility] Maternal Medicine [facility] [address] [place] [address] Jesus Harmon MD [address] [place] [address] 12/12/2024 8:45 AM BEAUTY OPERATOR Appointment [facility] Maternal Medicine [facility] [address] [place] [phone] Diane Lopez MD [address] [address] [address] 12/12/2024 9:15 AM BEAUTY OPERATOR Office Visit [facility] Maternal Medicine [facility] [address] [place] [phone] Diane Lopez MD [address] [address] [address] 12/14/2024 1:30 PM BEAUTY OPERATOR Ancillary Procedure [facility] Maternal Medicine [address] [place] [phone] Jesus Harmon MD [address] [place] [address] 12/14/2024 2:00 PM BEAUTY OPERATOR Office Visit [facility] Maternal Medicine [address] [place] [address] Jesus Harmon MD [address] [place] [address] 12/17/2024 12:45 PM BEAUTY OPERATOR Appointment [facility] Maternal Medicine [facility] [address] [place] [phone] Jesus Harmon MD [address] [place] [address] 12/17/2024 1:15 PM BEAUTY OPERATOR Office Visit [facility] [place] [address] [place] [address] Jesus Harmon MD [address] [place] [address] 12/17/2024 1:30 PM BEAUTY OPERATOR Office Visit [facility] [place] [address] [place] [address] Jesus Harmon MD [address] [place] [address] 12/19/2024 9:30 AM BEAUTY OPERATOR Appointment [facility] Maternal Medicine [facility] [address] [facility] [address] [place] [address] Nicole Núñez MD [address] [place] [address] Flower Amato MD [address] [facility] [address] [address] 12/19/2024 10:00 AM BEAUTY OPERATOR Office Visit [facility] Maternal Medicine [place] [address] [place] [phone] Nicole Núñez MD [address] [address] Flower Amato MD [address] [address] [address] 12/21/2024 11:45 AM BEAUTY OPERATOR Appointment [facility] Maternal Medicine [place] [address] [place] [phone] Jesus Harmon MD [address] [place] [address] Karin Esteban MD [address] [address] [address] 12/21/2024 12:15 PM BEAUTY OPERATOR Office Visit [facility] Maternal Medicine [place] [address] [place] [phone] Jesus Harmon MD [address] [place] [address] Karin Esteban MD [address] [address] [address] 12/24/2024 11:00 AM BEAUTY OPERATOR Appointment [facility] Maternal Medicine [address] [phone] Jesus Harmon MD [address] [place] [address] 12/24/2024 11:30 AM BEAUTY OPERATOR Office Visit [facility] [place] [address] [place] [address] Jesus Harmon MD [address] [place] [address] 12/24/2024 11:45 AM BEAUTY OPERATOR Office Visit [facility] Maternal Medicine [facility] [address] [place] [address] Jesus Harmon MD [address] [place] [address] 12/26/2024 10:15 AM BEAUTY OPERATOR Appointment M [facility] Maternal Medicine [place] [address] [place] [phone] Jesus Harmon MD [address] [place] [address] 12/26/2024 10:45 AM BEAUTY OPERATOR Office Visit [facility] Maternal Medicine [place] [address] [place] [phone] Jesus Harmon MD [address] [place] [address] 12/28/2024 10:15 AM BEAUTY OPERATOR Appointment M [facility] Maternal Medicine [place] [address] [place] [phone] Diane Lopez MD [address] [address] 12/28/2024 10:45 AM BEAUTY OPERATOR Office Visit [facility] [place] [address] [place] [phone] Diane Lopez MD [address] [place], [place] [address] 01/11/2025 10:15 AM CDT Appointment [facility] Medicine [place] [address] [place] [phone] Diane Lopez MD [address] [place], [place] [address] 01/11/2025 10:45 AM CDT Office Visit [facility] Maternal Medicine [place] [address] [place] [phone] Diane Lopez MD [address] [place], [place] [address] documented as of this encounter Procedures Procedure Name Priority Date/Time Associated Diagnosis Comments MFM TWINS US COMPREHENSIVE F/U Routine 11/08/2024 10:15 AM BEAUTY OPERATOR Monochorionic diamniotic twin gestation in second trimester documented in this encounter Results * MFM Twins US Comprehensive F/U (11/08/2024 10:15 AM BEAUTY OPERATOR) Anatomical Region Laterality Modality Ultrasound 11/08/2024 9:37 AM BEAUTY OPERATOR Impressions 11/08/2024 11:28 AM BEAUTY OPERATOR IMPRESSION ----- Monochorionic diamniotic twin gestation [...] anemia polycythemia syndrome. Narrative 11/08/2024 11:28 AM [facility] Surveillance US ----- Pat. Name: HEATHER CHÁVEZ Study Date: 11/08/2024 9:37am Pat. NO: [id number] Referring MD: PAMELA CUELLAR Site: Coarse Wire Drawer: Chantell Jarquin RDMS : 1995 Age: 29 [...] CHÁVEZ Study Date: 11/08/2024 9:37am Pat. NO: [id number] Referring MD: PAMELA CUELLAR Site: Coarse Wire Drawer: Chantell Jarquin RDMS : 1995 Age: 29 [...] anemia polycythemia syndrome. us Diane Lopez MD [facility] ORDERABLES Edited Result - Final documented [...] antepartum documented in this encounter Care Teams Arrow Point Attacher Relationship Specialty Start Date End Date No Ref-Primary, Physician PCP - General 12/04/21 documented as of this encounter
--- OUTSIDE RECORDS SUMMARY | 2024-12-07 21:38 | XMS_ITS | Encounter Summary ---
Author Organization [place] Address [address] [place] [address] Care Team Providers Care Railroad Signal And Switch Operator Name Role Phone No Ref-Primary, Physician Primary Care Provider Flower Amato MD Unavailable [phone] Encounter Details Date Type Department Care [...] on file Legal Sex Female 11:44 PM CUTTER OPERATOR TILE Gender Identity Not on file Sexual Orientation Not on file documented as of this encounter Plan of Treatment Upcoming Encounters Date Type Department Care Team (Late st Contact Info) Description 12/10/2024 1:30 PM CUTTER OPERATOR TILE Appointment [facility] [place] [address] [place] [phone] Jesus Harmon MD [address] [place] [address] 12/10/2024 2:00 PM CUTTER OPERATOR TILE Office Visit [facility] [address] [place] [address] Jesus Harmon MD [address] [place] [address] 12/10/2024 2:15 PM CUTTER OPERATOR TILE Office Visit [facility] [address] [place] [address] Jesus Harmon MD [address] [place] [address] 12/12/2024 8:45 AM CUTTER OPERATOR TILE Appointment [facility] [address] [place] [phone] Diane Lopez MD [address] [address] 12/12/2024 9:15 AM CUTTER OPERATOR TILE Office Visit [facility] [address] [place] [address] Diane Lopez MD [address] [address] 12/14/2024 1:30 PM CUTTER OPERATOR TILE Ancillary Procedure [facility] [address] [place] [phone] Jesus Harmon MD [address] [place] [address] 12/14/2024 2:00 PM CUTTER OPERATOR TILE Office Visit [facility] [address] [address] Jesus Harmon MD [address] [place] [address] 12/17/2024 12:45 PM CUTTER OPERATOR TILE Appointment [facility] [place] [address] [place] [phone] Jesus Harmon MD [address] [place] [address] 12/17/2024 1:15 PM CUTTER OPERATOR TILE Office Visit [facility] [place] [address] [place] [address] Jesus Harmon MD [address] [place] [address] 12/17/2024 1:30 PM CUTTER OPERATOR TILE Office Visit [facility] [place] [address] [place] [address] Jesus Harmon MD [address] [place] [address] 12/19/2024 9:30 AM CUTTER OPERATOR TILE Appointment [facility] [address] [facility] [address] [place] [phone] Nicole Núñez MD [address] [place] [phone] Flower Amato MD [address] [facility] [address] [address] 12/19/2024 10:00 AM CUTTER OPERATOR TILE Office Visit [facility] [address] [facility] [address] [place] [phone] Nicole Núñez MD [address] [place] [phone] Flower Amato MD [address] [address] 12/21/2024 11:45 AM CUTTER OPERATOR TILE Appointment [facility] [place] [address] [facility] [address] [place] [phone] Jesus Harmon MD [address] [place] [address] Karin Esteban MD [address] [place], [place] [address] [address] [address] 12/21/2024 12:15 PM CUTTER OPERATOR TILE Office Visit [facility] [place] [address] [facility] [address] [place] [phone] Jesus Harmon MD [address] [place] [address] Karin Esteban MD [address] [facility] [address] [address] 12/24/2024 11:00 AM CUTTER OPERATOR TILE Appointment [facility] [place] [address] [place] [address] Jesus Harmon MD [address] [place] [address] 12/24/2024 11:30 AM CUTTER OPERATOR TILE Office Visit [facility] [place] [address] [place] [address] Jesus Harmon MD [address] [place], [place] [address] 12/24/2024 11:45 AM CUTTER OPERATOR TILE Office Visit [facility] [place] [address] [facility] [place] [address] Jesus Harmon MD [address] [place] [address] 12/26/2024 10:15 AM CUTTER OPERATOR TILE Appointment [facility] [place] [address] [facility] [address] [place] [phone] Jesus Harmon MD [address] [place] [address] 12/26/2024 10:45 AM CUTTER OPERATOR TILE Office Visit [facility] [place] [address] [facility] [address] [place] [phone] Jesus Harmon MD [address] [place] [address] 12/28/2024 10:15 AM CUTTER OPERATOR TILE Appointment [facility] [place] [address] [facility] [address] [place] [phone] Diane Lopez MD [address] [place] [address] 12/28/2024 10:45 AM CUTTER OPERATOR TILE Office Visit [facility] [place] [address] [facility] [address] [place] [phone] Diane Lopez MD [address] [place] [address] 01/11/2025 10:15 AM CDT Appointment [facility] [place] [address] [facility] [address] [place] [phone] Diane Lopez MD [address] [place] [address] 01/11/2025 10:45 AM CDT Office Visit [facility] [place] [address] [place] [phone] Diane Lopez MD [address] [place] [address] documented as of this encounter Visit Diagnoses Not on filedocumented in this encounter Care Teams Railroad Signal And Switch Operator Relationship Specialty Start Date End Date No Ref-Primary, Physician PCP - General 12/04/21 Flower Amato MD [address] [place] [address] Assigned OBGYN Provider 11/22/24 documented as of this encounter
--- OUTSIDE RECORDS SUMMARY | 2024-12-07 21:38 | XMS_ITS | Encounter Summary ---
Author Organization [place] Address [address] [place] [address] Care Team Providers Care Training Program Manager Name Role Phone No Ref-Primary, Physician [...] on file Legal Sex Female 11:44 PM CLOTHING PATTERN PREPARER Gender Identity Not on file Sexual Orientation Not on file documented as of this encounter Plan of Treatment Upcoming Encounters Date Type Department Care Team (Late st Contact Info) Description 12/10/2024 1:30 PM CLOTHING PATTERN PREPARER Appointment [facility] [place] [address] [place] [phone] Jesus Harmon MD [address] [place] [address] 12/10/2024 2:00 PM CLOTHING PATTERN PREPARER Office Visit [facility] [place] [address] [place], [place] [address] Jesus Harmon MD [address] [place] [address] 12/10/2024 2:15 PM CLOTHING PATTERN PREPARER Office Visit [facility] [address] [place] [address] Jesus Harmon MD [address] [place] [address] 12/12/2024 8:45 AM CLOTHING PATTERN PREPARER Appointment [facility] [address] [place] [phone] Diane Lopez MD [address] [place] [address] 12/12/2024 9:15 AM CLOTHING PATTERN PREPARER Office Visit [facility] [address] [place] [address] Diane Lopez MD [address] [place] [address] 12/14/2024 1:30 PM CLOTHING PATTERN PREPARER Ancillary Procedure [facility] [address] [phone] Jesus Harmon MD [address] [place] [address] 12/14/2024 2:00 PM CLOTHING PATTERN PREPARER Office Visit [facility] [address] [phone] Jesus Harmon MD [address] [place] [address] 12/17/2024 12:45 PM CLOTHING PATTERN PREPARER Appointment [facility] [place] [address] [place] [address] Jesus Harmon MD [address] [place] [address] 12/17/2024 1:15 PM CLOTHING PATTERN PREPARER Office Visit [facility] [place] [address] [place] [address] Jesus Harmon MD [address] [place] [address] 12/17/2024 1:30 PM CLOTHING PATTERN PREPARER Office Visit [facility] [address] [facility] [place] [address] Jesus Harmon MD [address] [place] [address] 12/19/2024 9:30 AM CLOTHING PATTERN PREPARER Appointment [facility] [address] [place] [phone] Nicole Núñez MD [address] [place], [place] 20[address] Flower Amato MD [address] [facility] [address] [place], [place] 8[address] 12/19/2024 10:00 AM CLOTHING PATTERN PREPARER Office Visit [facility] [address] [place] [phone] Nicole Núñez MD [address] [place], [place] 3879[address] Flower Amato MD [address] [place] [address] 12/21/2024 11:45 AM CLOTHING PATTERN PREPARER Appointment [facility] [address] [facility] [address] [place] [address] Jesus Harmon MD [address] [place] [address] Karin Esteban MD [address] [place] [address] 12/21/2024 12:15 PM CLOTHING PATTERN PREPARER Office Visit [facility] [address] [facility] [address] [place] [address] Jesus Harmon MD [address] [place] [address] Karin Esteban MD [address] [place] [address] 12/24/2024 11:00 AM CLOTHING PATTERN PREPARER Appointment [facility] [place] [address] [place] [phone] Jesus Harmon MD [address] [place] [address] 12/24/2024 11:30 AM CLOTHING PATTERN PREPARER Office Visit [facility] [place] [address] [place] [address] Jesus Harmon MD [address] [place] [address] 12/24/2024 11:45 AM CLOTHING PATTERN PREPARER Office Visit [facility] [place] [address] [place] [address] Jesus Harmon MD [address] [place] [address] 12/26/2024 10:15 AM CLOTHING PATTERN PREPARER Appointment [facility] [place] [address] [place] [phone] Jesus Harmon MD [address] [place] [address] 12/26/2024 10:45 AM CLOTHING PATTERN PREPARER Office Visit [facility] [place] [address] [facility] [address] [place] [phone] Jesus Harmon MD [address] [place] [address] 12/28/2024 10:15 AM CLOTHING PATTERN PREPARER Appointment [facility] [place] [address] [facility] [address] [place] [phone] Diane Lopez MD [address] [place] [address] 12/28/2024 10:45 AM CLOTHING PATTERN PREPARER Office Visit [facility] [place] [address] [facility] [address] [place] [phone] Diane Lopez MD [address] [place] [address] 01/11/2025 10:15 AM CDT Appointment [facility] [place] [address] [place] [phone] Diane Lopez MD [address] [place] [address] 01/11/2025 10:45 AM CDT Office Visit [facility] [place] [address] [facility] [address] [place] [phone] Diane Lopez MD [address] [place] [address] documented as of this encounter Visit Diagnoses Not on filedocumented in this encounter Care Teams Training Program Manager Relationship Specialty Start Date End Date No Ref-Primary, Physician PCP - General 12/04/21 documented as of this encounter
--- OUTSIDE RECORDS SUMMARY | 2024-12-07 21:38 | XMS_ITS | Encounter Summary ---
Author Organization [place] Address [address] [facility] [place] [address] Care Team Providers Care Network Project Manager Name Role Phone No Ref-Primary, Physician Primary Care Provider Flower Amato MD Unavailable [phone] Encounter Details Date Type Department Care Team ([facility] Contact Info) Description 12/05/2021 Documentation Only INTERFACED REPORT Unknown, Provider Social History Tobacco Use Types Packs/Day Years Used Date Smoking Tobacco: Never Smokeless Tobacco: Never Alcohol Use Standard Drinks/Week Comments Never 0 (1 standard drink = 0.6 oz pur e alcohol) Comments No Sex and Gender Information Value Date Recorded Sex Assigned at Not on file Legal Sex Female 11:44 PM HEALTH WORKER Gender Identity Not on file Sexual Orientation Not on file COVID-19 Exposure Response Date Recorded In the last month, have you been in contact with someone who was confirmed or suspected to have Coronavirus / COVID-19? No / Unsure 12/08/2021 5:46 PM HEALTH WORKER documented as of this encounter Plan of Treatment Upcoming Encounters Date Type Department Care Team ([facility] Contact Info) Description 12/10/2024 1:30 PM HEALTH WORKER Appointment [facility] [place] [address] [place] [address] Jesus Harmon MD [address] [place] [id number] 12/10/2024 2:00 PM HEALTH WORKER Office Visit [facility] [place] [address] [place] [address] Jesus Harmon MD [address] [place] [address] 12/10/2024 2:15 PM HEALTH WORKER Office Visit [facility] [place] [address] [place] [address] Jesus Harmon MD [address] [place] [address] 12/12/2024 8:45 AM HEALTH WORKER Appointment [facility] [address] [place] [address] Diane Lopez MD [address] [address] 12/12/2024 9:15 AM HEALTH WORKER Office Visit [facility] [address] [place] [phone] Diane Lopez MD [address] [facility] [address] [address] 12/14/2024 1:30 PM HEALTH WORKER Ancillary Procedure [facility] [address] [address] Jesus Harmon MD [address] [place] [address] 12/14/2024 2:00 PM HEALTH WORKER Office Visit [facility] [address] [address] Jesus Harmon MD [address] [place] [address] 12/17/2024 12:45 PM HEALTH WORKER Appointment [facility] [place] [address] [place] [address] Jesus Harmon MD [address] [place] [address] 12/17/2024 1:15 PM HEALTH WORKER Office Visit [facility] [place] [address] [place] [address] Jesus Harmon MD [address] [place] [address] 12/17/2024 1:30 PM HEALTH WORKER Office Visit [facility] [place] [address] [facility] [place] [address] Jesus Harmon MD [address] [place] [address] 12/19/2024 9:30 AM HEALTH WORKER Appointment [facility] Medicine [facility] [address] [facility] [address] [place] [phone] Nicole Núñez MD [address] [place] [address] Flower Amato MD [address] [facility] [address] [place] [address] 12/19/2024 10:00 AM HEALTH WORKER Office Visit [facility] Medicine [facility] [address] [facility] [address] [place] [phone] Nicole Núñez MD [address] [address] Flower Amato MD [address] [place] [address] 12/21/2024 11:45 AM HEALTH WORKER Appointment [facility] Medicine [facility] [address] [facility] [address] [place] [address] Jesus Harmon MD [address] [place] [address] Karin Esteban MD [address] [facility] [address] [address] 12/21/2024 12:15 PM HEALTH WORKER Office Visit [facility] [place] [address] [facility] [address] [place] [address] Jesus Harmon MD [address] [place] [address] Karin Esteban MD [address] [facility] [address] [address] 12/24/2024 11:00 AM HEALTH WORKER Appointment [facility] [place] [address] [facility] [place] [address] Jesus Harmon MD [address] [place] [address] 12/24/2024 11:30 AM HEALTH WORKER Office Visit [facility] [place] [address] [facility] [place] [address] Jesus Harmon MD [address] [place] [address] 12/24/2024 11:45 AM HEALTH WORKER Office Visit [facility] [place] [address] [place] [address] Jesus Harmon MD [address] [place] [address] 12/26/2024 10:15 AM HEALTH WORKER Appointment [facility] [place] [address] [place] [address] Jesus Harmon MD [address] [place] [address] 12/26/2024 10:45 AM HEALTH WORKER Office Visit [facility] [place] [address] [address] [facility] [address] [place] [address] Jesus Harmon MD [address] [place] [address] 12/28/2024 10:15 AM HEALTH WORKER Appointment [facility] Medicine [place] [address] [place] [phone] Diane Lopez MD [address] [place] [address] 12/28/2024 10:45 AM HEALTH WORKER Office Visit [facility] [place] [address] [place] [address] Diane Lopez MD [address] [place] [address] 01/11/2025 10:15 AM CDT Appointment [facility] [place] [address] [place] [address] Diane Lopez MD [address] [place] [address] 01/11/2025 10:45 AM CDT Office Visit [facility] [address] [facility] [address] [place] [phone] Diane Lopez MD [address] [place] [address] documented as of this encounter Visit Diagnoses Not on filedocumented in this encounter Care Teams Network Project Manager Relationship Specialty Start Date End Date No Ref-Primary, Physician PCP - General 12/04/21 Flower Amato MD [address] [place] [address] Assigned OBGYN Provider 11/22/24 documented as of this encounter
--- OUTSIDE RECORDS SUMMARY | 2024-12-07 21:38 | XMS_ITS | Encounter Summary ---
Author Organization [facility] Address [address] [facility] [place] [address] Care Team Providers Care Voip Network Engineer Name Role Phone No Ref-Primary, Physician Primary Care Provider Flower Amato MD Unavailable [phone] Reason for Referral * Consultation (Routine: Next available opening) - Pending Review Specialty Diagnoses / Procedures Referred By Noa lilly Referred To Contact Diagnoses Monochorionic diamniotic twin , antepartum Jesus Harmon MD [address] [place] [address] Phone: tel: fax: Referral ID Status Reason Start Date Expiration Date V isits Requested Visits Authorized [id number] Pending Review 12/05/2024 12/05/2025 1 1 Question Answer Office Visit Type: OB Visit - First Y LEVEL ELECTRICAL ENGINEER Encounter Details Date Type Department Care Team (Late st Contact Info) Description 12/05/2024 Orders Only [facility] [place] [address] [place], [place] [address] [place], [place] [id number] Joceline Bejarano RN Monochorionic diamniotic twin , [...] on file Legal Sex Female 11:44 PM ENTRY LEVEL ELECTRICAL ENGINEER Gender Identity Not on file Sexual Orientation Not on file documented as of this encounter Plan of Treatment Upcoming Encounters Date Type Department Care Team (Late st Contact Info) Description 12/10/2024 1:30 PM ENTRY LEVEL ELECTRICAL ENGINEER Appointment [facility] [place] [address] [place] [address] Jesus Harmon MD [address] [place], [place] [address] 12/10/2024 2:00 PM ENTRY LEVEL ELECTRICAL ENGINEER Office Visit [facility] [address] [place] [address] Jesus Harmon MD [address] [place] [address] 12/10/2024 2:15 PM ENTRY LEVEL ELECTRICAL ENGINEER Office Visit [facility] [place] [address] [place] [address] Jesus Harmon MD [address] [place] [address] 12/12/2024 8:45 AM ENTRY LEVEL ELECTRICAL ENGINEER Appointment [facility] M[facility] Medicine [facility] [address] [place] [phone] Diane Lopez MD [address] [address] 12/12/2024 9:15 AM ENTRY LEVEL ELECTRICAL ENGINEER Office Visit [facility] [address] [place] [phone] Diane Lopez MD [address] [facility] [address] [place] [address] 12/14/2024 1:30 PM ENTRY LEVEL ELECTRICAL ENGINEER Ancillary Procedure [facility] M[facility] Medicine [address] [place] [address] Jesus Harmon MD [address] [place] [address] 12/14/2024 2:00 PM ENTRY LEVEL ELECTRICAL ENGINEER Office Visit [facility] [address] [phone] Jesus Harmon MD [address] [place] [address] 12/17/2024 12:45 PM ENTRY LEVEL ELECTRICAL ENGINEER Appointment [facility] [address] [place] [address] Jesus Harmon MD [address] [place] [address] 12/17/2024 1:15 PM ENTRY LEVEL ELECTRICAL ENGINEER Office Visit [facility] [place] [address] [place] [address] Jesus Harmon MD [address] [place] [address] 12/17/2024 1:30 PM ENTRY LEVEL ELECTRICAL ENGINEER Office Visit [facility] [place] [address] [place] [address] Jesus Harmon MD [address] [place] [address] 12/19/2024 9:30 AM ENTRY LEVEL ELECTRICAL ENGINEER Appointment [facility] [address] [facility] [address] [place] [address] Nicole Núñez MD [address] [place] [address] Flower Amato MD [address] [address] 12/19/2024 10:00 AM ENTRY LEVEL ELECTRICAL ENGINEER Office Visit [facility] [address] [place] [address] Nicole Núñez MD [address] [place] [address] Flower Amato MD [address] [address] 12/21/2024 11:45 AM ENTRY LEVEL ELECTRICAL ENGINEER Appointment [facility] Medicine [facility] [address] [place] [address] Jesus Harmon MD [address] [place], [place] [address] Karin Esteban MD [address] [address] [address] 12/21/2024 12:15 PM ENTRY LEVEL ELECTRICAL ENGINEER Office Visit [facility] Medicine [facility] [address] [place] [address] Jesus Harmon MD [address] [place], [place] [address] Karin Esteban MD [address] [address] 12/24/2024 11:00 AM ENTRY LEVEL ELECTRICAL ENGINEER Appointment [facility] [place] [address] [place] [address] Jesus Harmon MD [address] [place] [address] 12/24/2024 11:30 AM ENTRY LEVEL ELECTRICAL ENGINEER Office Visit [facility] [place] [address] [place] [address] Jesus Harmon MD [address] [place] [address] 12/24/2024 11:45 AM ENTRY LEVEL ELECTRICAL ENGINEER Office Visit [facility] [place] [address] [place] [address] Jesus Harmon MD [address] [place] [address] 12/26/2024 10:15 AM ENTRY LEVEL ELECTRICAL ENGINEER Appointment [facility] [address] [place] [phone] Jesus Harmon MD [address] [place] [address] 12/26/2024 10:45 AM ENTRY LEVEL ELECTRICAL ENGINEER Office Visit [facility] [address] [place] [address] Jesus Harmon MD [address] [place] [address] 12/28/2024 10:15 AM ENTRY LEVEL ELECTRICAL ENGINEER Appointment [facility] [address] [place] [phone] Diane Lopez MD [address] [address] 12/28/2024 10:45 AM ENTRY LEVEL ELECTRICAL ENGINEER Office Visit [facility] [address] [place] [address] Diane Lopez MD [address] [address] [place] [address] 01/11/2025 10:15 AM CDT Appointment [facility] Medicine [facility] [address] [place] [address] Diane Lopez MD [address] [place], [place] [address] 01/11/2025 10:45 AM CDT Office Visit [facility] [address] [place] [phone] Diane Lopez MD [address] [place], [place] [address] Scheduled Referrals Name Type Priority Associated Diagnoses [...] antepartum documented in this encounter Care Teams Voip Network Engineer Relationship Specialty Start Date End Date No Ref-Primary, Physician PCP - General 12/04/21 Flower Amato MD [address] [place] [address] Assigned OBGYN Provider 11/22/24 documented as of this encounter
--- OUTSIDE RECORDS SUMMARY | 2024-12-07 21:38 | XMS_ITS | Encounter Summary ---
Author Organization [facility] Address [address] [place] [address] Care Team Providers Care Vascular Sonographer Name Role Phone No Ref-Primary, Physician Primary Care Provider Flower Amato MD Unavailable [phone] Encounter Details Date Type Department Care Team (Late st Contact Info) Description 11/30/2024 Office Visit [facility] [address] [facility] [address] [place] [phone] Luc Dominguez MD [address] [place] [address] cardiac anomaly complicating , antepartum, fetus [...] on file Legal Sex Female 11:44 PM FACT CHECKER Gender Identity Not on file Sexual Orientation Not on file documented as of this encounter Progress Notes * Luc Dominguez MD - 11/30/2024 1:03 PM CST [facility] Consult Note Patient: Heather Chávez Date of : 1995 Age: [age] year old Date of Visit: 11/30/2024 PCP: No Ref-Primary, Physician Dear No ref. provider found: I had the pleasure of seeing Heather Chávez at the [facility] on 11/30/2024 in cardiology consultation for echocardiogram results. She presented today accompanied by her sister in law. As you know, she is a 29 year old at 21w5d who presented for echocardiogram today because of [place] twins. I performed and interpreted the echocardiogram [...] care. I spent approximately 45 minutes in [id number] time reviewing the above considerations. Kade Dominguez M.D. Pediatric Cardiology [address] Academic Office Building 4th floor, [facility] [address] CHECKER documented in this encounter Plan of Treatment Upcoming Encounters Date Type Department Care Team (Late st Contact Info) Description 12/10/2024 1:30 PM FACT CHECKER Appointment [facility] [address] [place] [phone] Jesus Harmon MD [address] [place] [address] 12/10/2024 2:00 PM FACT CHECKER Office Visit [facility] [address] [place] [address] Jesus Harmon MD [address] [place] [address] 12/10/2024 2:15 PM FACT CHECKER Office Visit [facility] [address] [place] [address] Jesus Harmon MD [address] [place] [address] 12/12/2024 8:45 AM FACT CHECKER Appointment [facility] [address] [facility] [address] [place] [phone] Diane Lopez MD [address] [address] 12/12/2024 9:15 AM FACT CHECKER Office Visit [facility] [address] [facility] [address] [place] [phone] Diane Lopez MD [address] [facility] [address] [address] 12/14/2024 1:30 PM FACT CHECKER Ancillary Procedure [facility] [address] [address] Jesus Harmon MD [address] [place] [address] 12/14/2024 2:00 PM FACT CHECKER Office Visit [facility] [address] [address] Jesus Harmon MD [address] [place] [address] 12/17/2024 12:45 PM FACT CHECKER Appointment [facility] [address] [place] [address] Jesus Harmon MD [address] [place] [address] 12/17/2024 1:15 PM FACT CHECKER Office Visit [facility] [place] [address] [place] [address] Jesus Harmon MD [address] [place] [address] 12/17/2024 1:30 PM FACT CHECKER Office Visit [facility] [place] [address] [place] [address] Jesus Harmon MD [address] [place] [address] 12/19/2024 9:30 AM FACT CHECKER Appointment [facility] [address] [facility] [address] [place] [address] Nicole Núñez MD [address] [facility] [place] [address] Flower Amato MD [address] [facility] [address] [address] 12/19/2024 10:00 AM FACT CHECKER Office Visit [facility] [place] [address] [address] [facility] [address] [place] [phone] Nicole Núñez MD [address] [facility] [address] [place], [place] [address] Flower Amato MD [address] [address] [address] 12/21/2024 11:45 AM FACT CHECKER Appointment [facility] [place] [address] [address] [facility] [address] [place] [phone] Jesus Harmon MD [address] [place], [place] [address] Karin Esteban MD [address] [address] [address] 12/21/2024 12:15 PM FACT CHECKER Office Visit [facility] [place] [address] [address] [facility] [address] [place] [address] Jesus Harmon MD [address] [place], [place] [address] Karin Esteban MD [address] [address] [address] 12/24/2024 11:00 AM FACT CHECKER Appointment [facility] M[facility] Medicine [address] [address] Jesus Harmno MD [address] [place] [address] 12/24/2024 11:30 AM FACT CHECKER Office Visit [facility] [place] [address] [place] [address] Jesus Harmon MD [address] [place] [address] 12/24/2024 11:45 AM FACT CHECKER Office Visit [facility] [address] [place] [address] Jesus Harmon MD [address] [place] [address] 12/26/2024 10:15 AM FACT CHECKER Appointment [facility] [place] [address] [place] [phone] Jesus Harmon MD [address] [place] [address] 12/26/2024 10:45 AM FACT CHECKER Office Visit [facility] [address] [place] [phone] Jesus Harmon MD [address] [place] [address] 12/28/2024 10:15 AM FACT CHECKER Appointment [facility] [address] [place] [phone] Diane Lopez MD [address] [address] 12/28/2024 10:45 AM FACT CHECKER Office Visit [facility] [address] [place] [address] Diane Lopez MD [address] [place] [address] 01/11/2025 10:15 AM CDT Appointment [facility] [address] [place] [address] Diane Lopez MD [address] [place] [address] 01/11/2025 10:45 AM CDT Office Visit [facility] [address] [place] [address] Diane Lopez MD [address] [place] [address] documented as of this encounter Visit Diagnoses [...] antepartum documented in this encounter Care Teams Vascular Sonographer Relationship Specialty Start Date End Date No Ref-Primary, Physician PCP - General 12/04/21 Flower Amato MD [address] [address] Assigned OBGYN Provider 11/22/24 documented as of this encounter
--- OUTSIDE RECORDS SUMMARY | 2024-12-07 21:38 | XMS_ITS | Encounter Summary ---
Author Organization [facility] Address [address] [place] [address] Care Team Providers Care Principal Cyber Engineer Name Role Phone No Ref-Primary, Physician Primary Care Provider Flower Amato MD Unavailable [phone] Reason for Referral * Diagnostic Imaging Ultrasound (Routine) - Pending Review Specialty Diagnoses / Procedures Referred By Noa lilly Referred To Contact Radiology. 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 Procedures MFM Twins US Comprehensive F/U Flower Amato MD [address] [place] [address] Phone: tel: fax: Referral ID Status Reason Start Date Expiration Date V isits Requested Visits Authorized [id number] Pending Review 11/14/2024 11/14/2025 1 1 Encounter Details Date Type Department Care Team (Latest Contact Info) Description 11/22/2024 9:28 AM [employer] - 11/22/2024 11:59 PM [employer] Hospital Encounter [facility] [place] [address] [facility] [address] [place] [phone] Nicole Núñez MD [address] [place] [address] 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 [...] on file Legal Sex Female 11:44 PM [employer] Gender Identity Not on file Sexual Orientation [...] st Contact Info) Description 12/10/2024 1:30 PM [employer] Appointment [facility] [place] [address] [place] [address] Jesus Harmon MD [address] [place], [place] [address] 12/10/2024 2:00 PM [employer] Office Visit [facility] [place] [address] [place] [address] Jesus Harmon MD [address] [place], [place] [address] 12/10/2024 2:15 PM [employer] Office Visit [facility] [place] [address] [place] [address] Jesus Harmon MD [address] [place] [address] 12/12/2024 8:45 AM [employer] Appointment [facility] Maternal Medicine [facility] [address] [place] [phone] Diane Lopez MD [address] [address] 12/12/2024 9:15 AM [employer] Office Visit [facility] Maternal Medicine [facility] [address] [place] [phone] Diane Lopez MD [address] [address] [address] 12/14/2024 1:30 PM [employer] Ancillary Procedure [facility] Maternal Medicine [address] [place] [address] Jesus Harmon MD [address] [place] [address] 12/14/2024 2:00 PM [employer] Office Visit [facility] Maternal Medicine [address] [phone] Jesus Harmon MD [address] [place] [address] 12/17/2024 12:45 PM [employer] Appointment [facility] Maternal Medicine [facility] [address] [place] [address] Jesus Harmon MD [address] [place] [address] 12/17/2024 1:15 PM [employer] Office Visit [facility] Maternal Medicine [facility] [address] [place] [address] Jesus Harmon MD [address] [place] [address] 12/17/2024 1:30 PM [employer] Office Visit [facility] [place] [address] [place] [address] Jesus Harmno MD [address] [place] [address] 12/19/2024 9:30 AM [employer] Appointment [facility] Maternal Medicine [facility] [address] [facility] [address] [place] [address] Nicole Núñez MD [address] [place] [address] Flower Amato MD [address] [address] 12/19/2024 10:00 AM [employer] Office Visit [facility] Maternal Medicine [facility] [address] [place] [address] Nicole Núñez MD [address] [facility] [place] [address] Flower Amato MD [address] [facility] [address] [address] 12/21/2024 11:45 AM [employer] Appointment [facility] Maternal Medicine [place] [address] [place] [address] Jesus Harmon MD [address] [place], [place] [address] Karin Esteban MD [address] [address] [address] 12/21/2024 12:15 PM [employer] Office Visit [facility] Maternal Medicine [facility] [address] [place] [address] Jesus Harmon MD [address] [place], [place] [address] Karin Esteban MD [address] [address] [address] 12/24/2024 11:00 AM [employer] Appointment [facility] [place] [address] [place] [address] Jesus Harmon MD [address] [place] [address] 12/24/2024 11:30 AM [employer] Office Visit [facility] [place] [address] [place] [address] Jesus Harmon MD [address] [place] [address] 12/24/2024 11:45 AM [employer] Office Visit [facility] [place] [address] [place] [address] Jesus Harmon MD [address] [place] [address] 12/26/2024 10:15 AM [employer] Appointment [facility] Maternal Medicine [facility] [address] [place] [phone] Jesus Harmon MD [address] [place] [address] 12/26/2024 10:45 AM [employer] Office Visit [facility] Maternal Medicine [facility] [address] [place] [phone] Jesus Harmon MD [address] [place] [address] 12/28/2024 10:15 AM [employer] Appointment [facility] Maternal Medicine [facility] [address] [place] [phone] Diane Lopez MD [address] [address] 12/28/2024 10:45 AM [employer] Office Visit [facility] Maternal Medicine [facility] [address] [place] [address] Diane Lopez MD [address] [place] [address] 01/11/2025 10:15 AM CDT Appointment [facility] Maternal Medicine [facility] [address] [place] [address] Diane Lopez MD [address] [place] [address] 01/11/2025 10:45 AM CDT Office Visit [facility] Maternal Medicine [place] [address] [place] [phone] Diane Lopez MD [address] [place] [address] documented as of this encounter Procedures Procedure Name Priority Date/Time Associated Diagnosis Comments MFM TWINS COMPREHENSIVE F/U Routine 11/22/2024 11:09 AM [employer] 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 Narrative 11/23/2024 6:[address] [facility] Surveillance US ----- Pat. Name: HEATHER CHÁVEZ Study Date: 11/22/2024 9:46am Pat. NO: [id number] Referring MD: PAMELA CUELLAR Site: Slip Seat Coverer: José Miguel Hussein RDMS : 1995 Age: [...] the patient (reviewing medical records/tests), in direct qknj-fe-qiuj contact with the patient counseling and discussing the plan of care, documenting the visit in the electronic medical record, and communicating with other health specialist wound care and/or care coordination. Procedure Note Nicole Núñez MD - 11/23/2024 Surveillance ----- Pat. Name: HEATHER CHÁVEZ Study Date: 11/22/2024 9:46am Pat. NO: [id number] Referring MD: PAMELA CUELLAR Site: Slip Seat Coverer: José Miguel Hussein RDMS : 1995 Age: [...] today's evaluation or if we can be offunm hospitalher service, please contact the Maternal- Medicine Center. anomalies may be present but not detected I spent a total of 15 minutes (excluding the ultrasound interpretation) onthe date of this encounter including preparing to see the patient(reviewing medical records/tests), in direct cdqf-ak-lobj contact with the patient counseling and discussingthe plan of care, documenting the visit in the electronic medical record,and communicating with other health specialist wound care and/or care coordination. IMPRESSION ----- Monochorionic [...] twin anemia polycythemia syndrome. Flower Amato MD [facility] ORDERABLES Edited Re sult - [...] antepartum documented in this encounter Care Teams Principal Cyber Engineer Relationship Specialty Start Date End Date No Ref-Primary, Physician PCP - General 12/04/21 Flower Amato MD [address] [place] [address] Assigned OBGYN Provider 11/22/24 documented as of this encounter
--- OUTSIDE RECORDS SUMMARY | 2024-12-07 21:38 | XMS_ITS | Encounter Summary ---
Author Organization [facility] Address [address] [place] [address] Care Team Providers Care Pin Feather Machine Operator Name Role Phone No Ref-Primary, Physician Primary Care Provider Flower Amato MD Unavailable [phone] Encounter Details Date Type Department Care [...] on file Legal Sex Female 11:44 PM RISK MANAGEMENT CONSULTANT Gender Identity Not on file Sexual Orientation Not on file documented as of this encounter Plan of Treatment Upcoming Encounters Date Type Department Care Team (Late st Contact Info) Description 12/10/2024 1:30 PM RISK MANAGEMENT CONSULTANT Appointment [facility] Medicine [facility] [place] [address] [place] [phone] Jesus Harmon MD [address] [place] [address] 12/10/2024 2:00 PM RISK MANAGEMENT CONSULTANT Office Visit [facility] Center [address] [place] [address] Jesus Harmon MD [address] [place] [address] 12/10/2024 2:15 PM RISK MANAGEMENT CONSULTANT Office Visit [facility] Maternal Medicine [facility] [address] [place] [address] Jesus Harmon MD [address] [place] [address] 12/12/2024 8:45 AM RISK MANAGEMENT CONSULTANT Appointment [facility] Maternal Medicine [facility] [address] [place] [phone] Diane Lopez MD [address] [address] 12/12/2024 9:15 AM RISK MANAGEMENT CONSULTANT Office Visit [facility] Maternal Medicine [facility] [address] [place] [address] Diane Lopez MD [address] [address] 12/14/2024 1:30 PM RISK MANAGEMENT CONSULTANT Ancillary Procedure [facility] Maternal Medicine [address] [place] [phone] Jesus Harmon MD [address] [place] [address] 12/14/2024 2:00 PM RISK MANAGEMENT CONSULTANT Office Visit [facility] Maternal Medicine [address] [address] Jesus Harmon MD [address] [place] [address] 12/17/2024 12:45 PM RISK MANAGEMENT CONSULTANT Appointment [facility] [place] [address] [place] [phone] Jesus Harmon MD [address] [place] [address] 12/17/2024 1:15 PM RISK MANAGEMENT CONSULTANT Office Visit [facility] [place] [address] [place] [address] Jesus Harmon MD [address] [place] [address] 12/17/2024 1:30 PM RISK MANAGEMENT CONSULTANT Office Visit [facility] [place] [address] [place] [address] Jesus Harmon MD [address] [place] [address] 12/19/2024 9:30 AM RISK MANAGEMENT CONSULTANT Appointment [facility] Maternal Medicine [facility] [address] [facility] [address] [place] [phone] Nicole Núñez MD [address] [place] [address] Flower Amato MD 606 [facility] [address] [address] 12/19/2024 10:00 AM RISK MANAGEMENT CONSULTANT Office Visit [facility] Maternal Medicine [facility] [address] [facility] [address] [place] [phone] Nicole Núñez MD [address] [place] [address] Flower Amato MD [address] [address] 12/21/2024 11:45 AM RISK MANAGEMENT CONSULTANT Appointment [facility] Maternal Medicine [place] [address] [address] [facility] [address] [place] [phone] Jesus Harmon MD [address] [place] [address] Karin Esteban MD [address] [place], [place] [address] [address] 12/21/2024 12:15 PM RISK MANAGEMENT CONSULTANT Office Visit [facility] Maternal Medicine [place] [address] [address] [facility] [address] [place] [phone] Jesus Harmon MD [address] [place] [address] Karin Esteban MD [address] [facility] [address] [address] 12/24/2024 11:00 AM RISK MANAGEMENT CONSULTANT Appointment [facility] [place] [address] [place] [address] Jesus Harmon MD [address] [place] [address] 12/24/2024 11:30 AM RISK MANAGEMENT CONSULTANT Office Visit [facility] [place] [address] [place] [address] Jesus Harmon MD [address] [place], [place] [address] 12/24/2024 11:45 AM RISK MANAGEMENT CONSULTANT Office Visit [facility] [place] [address] [facility] [place] [address] Jesus Harmon MD [address] [place] [address] 12/26/2024 10:15 AM RISK MANAGEMENT CONSULTANT Appointment [facility] Maternal Medicine [place] [address] [facility] [address] [place] [phone] Jesus Harmon MD [address] [place] [address] 12/26/2024 10:45 AM RISK MANAGEMENT CONSULTANT Office Visit [facility] Maternal Medicine [place] [address] [address] [facility] [address] [place] [phone] Jesus Harmon MD [address] [place] [address] 12/28/2024 10:15 AM RISK MANAGEMENT CONSULTANT Appointment [facility] Maternal Medicine [place] [address] [address] [facility] [address] [place] [phone] Diane Lopez MD [address] [place] [address] 12/28/2024 10:45 AM RISK MANAGEMENT CONSULTANT Office Visit [facility] Maternal Medicine [place] [address] [facility] [address] [place] [phone] Diane Lopez MD [address] [place] [address] 01/11/2025 10:15 AM CDT Appointment [facility] Maternal Medicine [place] [address] [facility] [address] [place] [phone] Diane Lopez MD [address] [place] [address] 01/11/2025 10:45 AM CDT Office Visit [facility] Maternal Medicine Center [place] [address] [place] [phone] Diane Lopez MD [address] [place] [address] documented as of this encounter Visit Diagnoses Not on filedocumented in this encounter Care Teams Pin Feather Machine Operator Relationship Specialty Start Date End Date No Ref-Primary, Physician PCP - General 12/04/21 Flower Amato MD [address] [place] [address] Assigned OBGYN Provider 11/22/24 documented as of this encounter
--- OUTSIDE RECORDS SUMMARY | 2024-12-07 21:38 | XMS_ITS | Encounter Summary ---
Author Organization [place] Address [address] [place] [address] Care Team Providers Care Homicide Squad Lieutenant Name Role Phone No Ref-Primary, Physician Primary [...] on file Legal Sex Female 11:44 PM ASE MASTER MECHANIC Gender Identity Not on file Sexual Orientation Not on file documented as of this encounter Plan of Treatment Upcoming Encounters Date Type Department Care Team (Late st Contact Info) Description 12/10/2024 1:30 PM ASE MASTER MECHANIC Appointment [facility] Maternal Medicine Center [place] [address] [place] [phone] Jesus Harmon MD [address] [place] [address] 12/10/2024 2:00 PM ASE MASTER MECHANIC Office Visit [facility] [place] [address] [place], [place] [address] Jesus Harmon MD [address] [place] [address] 12/10/2024 2:15 PM ASE MASTER MECHANIC Office Visit [facility] Maternal Medicine [facility] [address] [place] [address] Jesus Harmon MD [address] [place] [address] 12/12/2024 8:45 AM ASE MASTER MECHANIC Appointment [facility] Maternal Medicine [facility] [address] [place] [phone] Diane Lopez MD [address] [place] [address] 12/12/2024 9:15 AM ASE MASTER MECHANIC Office Visit [facility] Maternal Medicine [facility] [address] [place] [address] Diane Lopez MD [address] [place] [address] 12/14/2024 1:30 PM ASE MASTER MECHANIC Ancillary Procedure [facility] Maternal Medicine [address] [phone] Jesus Harmon MD [address] [place] [address] 12/14/2024 2:00 PM ASE MASTER MECHANIC Office Visit [facility] Maternal Medicine [address] [phone] Jesus Harmon MD [address] [place] [address] 12/17/2024 12:45 PM ASE MASTER MECHANIC Appointment [facility] [place] [address] [place] [address] Jesus Harmon MD [address] [place] [address] 12/17/2024 1:15 PM ASE MASTER MECHANIC Office Visit [facility] [place] [address] [place] [address] Jesus Harmon MD [address] [place] [address] 12/17/2024 1:30 PM ASE MASTER MECHANIC Office Visit [facility] Maternal Medicine [facility] [address] [facility] [place] [address] Jesus Harmon MD [address] [place] [address] 12/19/2024 9:30 AM ASE MASTER MECHANIC Appointment [facility] Maternal Medicine [facility] [address] [place] [phone] Nicole Núñez MD [address] [place], [place] [address] Flower Amato MD [address] [facility] [address] [place], [place] [address] 12/19/2024 10:00 AM ASE MASTER MECHANIC Office Visit [facility] Maternal Medicine [facility] [address] [place] [phone] Nicole Núñez MD [address] [place], [place] [address] Flower Amato MD [address] [place] [address] 12/21/2024 11:45 AM ASE MASTER MECHANIC Appointment [facility] Maternal Medicine [facility] [address] [facility] [address] [place] [address] Jesus Harmon MD [address] [place] [address] Karin Esteban MD [address] [place] [address] 12/21/2024 12:15 PM ASE MASTER MECHANIC Office Visit [facility] Maternal Medicine [facility] [address] [facility] [address] [place] [address] Jesus Harmon MD [address] [place] [address] Karin Esteban MD [address] [place] [address] 12/24/2024 11:00 AM ASE MASTER MECHANIC Appointment [facility] [place] [address] [place] [phone] Jesus Harmon MD [address] [place] [address] 12/24/2024 11:30 AM ASE MASTER MECHANIC Office Visit [facility] Medicine [facility] [place] [address] [place] [address] Jesus Harmon MD [address] [place] [address] 12/24/2024 11:45 AM ASE MASTER MECHANIC Office Visit [facility] [place] [address] [place] [address] Jesus Harmon MD 500 [place] [address] 12/26/2024 10:15 AM ASE MASTER MECHANIC Appointment [facility] Maternal Medicine [place] [address] [place] [phone] Jesus Harmon MD [address] [place] [address] 12/26/2024 10:45 AM ASE MASTER MECHANIC Office Visit [facility] Maternal Medicine [place] [address] [facility] [address] [place] [phone] Jesus Harmon MD [address] [place] [address] 12/28/2024 10:15 AM ASE MASTER MECHANIC Appointment [facility] Maternal Medicine [place] [address] [facility] [address] [place] [phone] Diane Lopez MD [address] [place] [address] 12/28/2024 10:45 AM ASE MASTER MECHANIC Office Visit [facility] Maternal Medicine [place] [address] [facility] [address] [place] [phone] Diane Lopez MD [address] [place] [address] 01/11/2025 10:[address] [facility] Maternal Medicine [place] [address] [place] [phone] Diane Lopez MD [address] [place] [address] 01/11/2025 10:45 AM CDT Office Visit [facility] Maternal Medicine [place] [address] [address] [facility] [address] [place] [phone] Diane Lopez MD [address] [place] [address] documented as of this encounter Visit Diagnoses Not on filedocumented in this encounter Care Teams Homicide Squad Lieutenant Relationship Specialty Start Date End Date No Ref-Primary, Physician PCP - General 12/04/21 documented as of this encounter
--- OUTSIDE RECORDS SUMMARY | 2024-12-07 21:38 | XMS_ITS | Encounter Summary ---
Author Organization [facility] Address [address] [place] [address] Care Team Providers Care Stave Machine Tender Name Role Phone No Ref-Primary, Physician Primary Care Provider Reason for Visit * Reason Comments Ultrasound RL2/UAR/MCA: TTTS ch luigi; mono/di twins Encounter Details Date Type Department Care Team (Latest Contact Info) Description 11/08/2024 10:00 AM DIGITAL ART DIRECTOR Office Visit [facility] M[facility] Medicine Center [place] [address] [facility] [address] [place] [address] Flor Dickson MD [address] [facility] [address] [place] [address] Monochorionic diamniotic twin gestation in [...] file Legal Sex Female 11:44 PM DIGITAL ART DIRECTOR Gender Identity Not on file Sexual [...] Center. Flor Dickson M.D. Maternal -Medicine Specialist TAL ART DIRECTOR documented in this encounter Nursing Notes * Joceline Bejarano RN - 11/08/2024 10:00 AM CST Heather seen in clinic today for TTTS check at 18w4d gestation due to mono/di twin gestation (see report/notes). Pt denies bldg/lof/change in discharge/contractions. Dr. Dickson reviewed US. Plan to return on 11/14 for L2. Pt discharged stable and ambulatory. Joceline Bejarano RN TAL ART DIRECTOR documented in this encounter Plan of Treatment Upcoming Encounters Date Type Department Care Team (Late st Contact Info) Description 12/10/2024 1:30 PM DIGITAL ART DIRECTOR Appointment [facility] Maternal Medicine [address] [phone] Jesus Harmon MD [address] [place], [place] [address] 12/10/2024 2:00 PM DIGITAL ART DIRECTOR Office Visit [facility] Maternal Medicine [address] [place] [address] Jesus Harmon MD [address] [place], [place] [address] 12/10/2024 2:15 PM DIGITAL ART DIRECTOR Office Visit [facility] Maternal Medicine [address] [address] Jesus Harmon MD [address] [place] [address] 12/12/2024 8:45 AM DIGITAL ART DIRECTOR Appointment [facility] Maternal Medicine [facility] [address] [place] [address] Diane Lopez MD [address] [place] [address] 12/12/2024 9:15 AM DIGITAL ART DIRECTOR Office Visit [facility] Maternal Medicine [facility] [address] [facility] [facility] [address] [place] [address] Diane Lopez MD [address] [facility] [address] [address] 12/14/2024 1:30 PM DIGITAL ART DIRECTOR Ancillary Procedure [facility] [address] [phone] Jesus Harmon MD [address] [place] [address] 12/14/2024 2:00 PM DIGITAL ART DIRECTOR Office Visit [facility] M[facility] Medicine [address] [phone] Jesus Harmon MD [address] [place] [address] 12/17/2024 12:45 PM DIGITAL ART DIRECTOR Appointment [facility] Maternal Medicine [facility] [address] [place] [address] Jesus Harmon MD [address] [place] [address] 12/17/2024 1:15 PM DIGITAL ART DIRECTOR Office Visit [facility] [place] [address] [place] [address] Jesus Harmon MD [address] [place] [address] 12/17/2024 1:30 PM DIGITAL ART DIRECTOR Office Visit [facility] [place] [address] [place] [address] Jesus Harmon MD [address] [place] [address] 12/19/2024 9:30 AM DIGITAL ART DIRECTOR Appointment [facility] Maternal Medicine [facility] [address] [facility] [facility] [address] [place] [phone] Nicole Núñez MD [address] [facility] [place] [address] Flower Amato MD [address] [address] 12/19/2024 10:00 AM DIGITAL ART DIRECTOR Office Visit [facility] Maternal Medicine [facility] [address] [place] [phone] Nicole Núñez MD [address] [facility] [place] [address] Flower Amato MD [address] [address] 12/21/2024 11:45 AM DIGITAL ART DIRECTOR Appointment [facility] Maternal Medicine [facility] [address] [place] [phone] Jesus Harmon MD [address] [place] [address] Karin Esteban MD [address] [facility] [address] [address] 12/21/2024 12:15 PM DIGITAL ART DIRECTOR Office Visit [facility] Maternal Medicine [facility] [address] [facility] [address] [place] [phone] Jesus Harmon MD [address] [place] [address] Karin Esteban MD [address] [address] 12/24/2024 11:00 AM DIGITAL ART DIRECTOR Appointment [facility] Maternal Medicine [facility] [address] [place] [phone] Jesus Harmon MD [address] [place] [address] 12/24/2024 11:30 AM DIGITAL ART DIRECTOR Office Visit [facility] [place] [address] [place] [address] Jesus Harmon MD [address] [place] [address] 12/24/2024 11:45 AM DIGITAL ART DIRECTOR Office Visit [facility] [place] [address] [facility] [place] [address] Jesus Harmon MD [address] [place] [address] 12/26/2024 10:15 AM DIGITAL ART DIRECTOR Appointment [facility] Maternal Medicine [facility] [address] [facility] [address] [place] [phone] Jesus Harmon MD [address] [place] [address] 12/26/2024 10:45 AM DIGITAL ART DIRECTOR Office Visit [facility] Maternal Medicine [place] [address] [facility] [address] [place] [address] Jesus Harmon MD [address] [place] [address] 12/28/2024 10:15 AM DIGITAL ART DIRECTOR Appointment [facility] M[facility] Medicine [place] [address] [facility] [address] [place] [phone] Diane Lopez MD [address] [place] [address] 12/28/2024 10:45 AM DIGITAL ART DIRECTOR Office Visit [facility] Maternal Medicine [place] [address] [facility] [address] [place] [phone] Diane Lopez MD [address] [place] [address] 01/11/2025 10:15 AM CDT Appointment [facility] Maternal Medicine [place] [address] [facility] [address] [place] [phone] Diane Lopez MD [address] [place] [address] 01/11/2025 10:45 AM CDT Office Visit [facility] Maternal Medicine [place] [address] [facility] [address] [facility] [address] [place] [phone] Diane Lopez MD [address] [place] [address] documented as of this encounter Visit Diagnoses [...] antepartum documented in this encounter Care Teams Stave Machine Tender Relationship Specialty Start Date End Date No Ref-Primary, Physician PCP - General 12/04/21 documented as of this encounter
--- OUTSIDE RECORDS SUMMARY | 2024-12-07 21:38 | XMS_ITS | Encounter Summary ---
Author Organization [facility] Address [address] [place] [address] Care Team Providers Care Sprue Cutting Press Operator Name Role Phone No Ref-Primary, Physician Primary Care Provider Flower Amato MD Unavailable [phone] Encounter Details Date Type Department Care [...] on file Legal Sex Female 11:44 PM CONICAL MIXER Gender Identity Not on file Sexual Orientation Not on file documented as of this encounter Plan of Treatment Upcoming Encounters Date Type Department Care Team (Late st Contact Info) Description 12/10/2024 1:30 PM CONICAL MIXER Appointment [facility] M[facility] Medicine [facility] [place] [address] [place] [phone] Jesus Harmon MD [address] [place] [address] 12/10/2024 2:00 PM CONICAL MIXER Office Visit [facility] M[facility] Center [address] [place] [address] Jesus Harmon MD [address] [place] [address] 12/10/2024 2:15 PM CONICAL MIXER Office Visit [facility] Maternal Medicine [facility] [address] [place] [address] Jesus Harmon MD [address] [place] [address] 12/12/2024 8:45 AM CONICAL MIXER Appointment [facility] Maternal Medicine [facility] [address] [place] [phone] Diane Lopez MD [address] [address] 12/12/2024 9:15 AM CONICAL MIXER Office Visit [facility] Maternal Medicine [facility] [address] [place] [address] Diane Lopez MD [address] [address] 12/14/2024 1:30 PM CONICAL MIXER Ancillary Procedure [facility] Maternal Medicine [address] [place] [phone] Jesus Harmon MD [address] [place] [address] 12/14/2024 2:00 PM CONICAL MIXER Office Visit [facility] Maternal Medicine [address] [address] Jesus Harmon MD [address] [place] [address] 12/17/2024 12:45 PM CONICAL MIXER Appointment [facility] [place] [address] [place] [phone] Jesus Harmon MD [address] [place] [address] 12/17/2024 1:15 PM CONICAL MIXER Office Visit [facility] [place] [address] [place] [address] Jesus Hramon MD [address] [place] [address] 12/17/2024 1:30 PM CONICAL MIXER Office Visit [facility] [place] [address] [place] [address] Jesus Harmon MD [address] [place] [address] 12/19/2024 9:30 AM CONICAL MIXER Appointment [facility] Maternal Medicine [facility] [address] [facility] [address] [place] [phone] Nicole Núñez MD [address] [place] [phone] Flower Amato MD [address] [facility] [address] [address] 12/19/2024 10:00 AM CONICAL MIXER Office Visit [facility] Maternal Medicine [facility] [address] [facility] [address] [place] [phone] Nicole Núñez MD [address] [place] [phone] Flower mAato MD [address] [address] 12/21/2024 11:45 AM CONICAL MIXER Appointment [facility] Maternal Medicine [place] [address] [facility] [address] [place] [phone] Jesus Harmon MD [address] [place] [address] Karin Esteban MD [address] [place], [place] [address] [address] 12/21/2024 12:15 PM CONICAL MIXER Office Visit [facility] Maternal Medicine [place] [address] [facility] [address] [place] [phone] Jesus Harmon MD [address] [place] [address] Karin Esteban MD [address] [facility] [address] [address] 12/24/2024 11:00 AM CONICAL MIXER Appointment [facility] [place] [address] [place] [address] Jesus Harmon MD [address] [place] [address] 12/24/2024 11:30 AM CONICAL MIXER Office Visit [facility] [place] [address] [place] [address] Jesus Harmon MD [address] [place], [place] [address] 12/24/2024 11:45 AM CONICAL MIXER Office Visit [facility] [place] [address] [facility] [place] [place] [address] Jesus Harmon MD [address] [place] [address] 12/26/2024 10:15 AM CONICAL MIXER Appointment [facility] Maternal Medicine [place] [address] [place] [facility] [address] [place] [phone] Jesus Harmon MD [address] [place] [address] 12/26/2024 10:45 AM CONICAL MIXER Office Visit [facility] Maternal Medicine [place] [address] [facility] [address] [place] [phone] Jesus Harmon MD [address] [place] [address] 12/28/2024 10:15 AM CONICAL MIXER Appointment [facility] Maternal Medicine [place] [address] [facility] [address] [place] [phone] Diane Lopez MD [address] [place] [address] 12/28/2024 10:45 AM CONICAL MIXER Office Visit [facility] Maternal Medicine [place] [address] [facility] [address] [place] [phone] Diane Lopez MD [address] [place] [address] 01/11/2025 10:15 AM CDT Appointment [facility] Maternal Medicine [place] [address] [facility] [address] [place] [phone] Diane Lopez MD [address] [place] [address] 01/11/2025 10:45 AM CDT Office Visit [facility] [place] [address] [place] [phone] Diane Lopez MD [address] [place] [address] documented as of this encounter Visit Diagnoses Not on filedocumented in this encounter Care Teams Sprue Cutting Press Operator Relationship Specialty Start Date End Date No Ref-Primary, Physician PCP - General 12/04/21 Flower Amato MD [address] [place] [address] Assigned OBGYN Provider 11/22/24 documented as of this encounter
--- OUTSIDE RECORDS SUMMARY | 2024-12-07 21:39 | XMS_ITS | Encounter Summary ---
Author Organization [place] Address [address] [place] [address] Care Team Providers Care Community Development Specialist Name Role Phone No Ref-Primary, Physician Primary Care Provider Flower Amato MD Unavailable [phone] Reason for Referral * Diagnostic Imaging Ultrasound (Routine) - Pending Review Specialty Diagnoses / Procedures Referred By Noa lilly Referred To Contact Radiology. 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 Procedures MFM Twins Comprehensive F/U Nicole Byrd MD [address] [place] [address] Phone: tel: fax: Referral ID Status Reason Start Date Expiration Date V isits Requested Visits Authorized [id number] Pending Review 11/30/2024 11/30/2025 1 1 S TENDER STAR SIGNAL Reason for Visit * Reason Comments Ultrasound RL2/UAR/MCA-mono/di twins, fetus 2 with FGR Encounter Details Date Type Department Care Team (Latest Contact Info) Description 11/30/2024 2:45 PM PRESS TENDER STAR SIGNAL Office Visit [facility] [place] [address] [place] [address] Nicole Byrd MD [address] [place] [address] Monochorionic diamniotic twin gestation in [...] on file Legal Sex Female 11:44 PM PRESS TENDER STAR SIGNAL Gender Identity Not on file Sexual Orientation [...] the Maternal- Medicine Center. Nicole Byrd MD President Financial Institution, PROFILE GRINDER TECHNICIAN Maternal- Medicine S TENDER STAR SIGNAL documented in this encounter Nursing Notes * Rivka Jones RN - 11/30/2024 2:45 PM CST Patient reports positive movement x 2, denies pain, leaking of fluid, or bleeding. Education provided to patient on today's ultrasound. SBAR given to BLAN[facility] MEDINA, see their note in Epic. S TENDER STAR SIGNAL documented in this encounter Plan of Treatment Upcoming Encounters Date Type Department Care Team (Late st Contact Info) Description 12/10/2024 1:30 PM PRESS TENDER STAR SIGNAL Appointment [facility] [address] [phone] Jesus Harmon MD [address] [place] [address] 12/10/2024 2:00 PM PRESS TENDER STAR SIGNAL Office Visit [facility] Maternal Medicine [facility] [address] [place] [address] Jesus Harmon MD [address] [place] [address] 12/10/2024 2:15 PM PRESS TENDER STAR SIGNAL Office Visit [facility] [place] [address] [place] [address] Jesus Harmon MD [address] [place] [address] 12/12/2024 8:45 AM PRESS TENDER STAR SIGNAL Appointment [facility] Maternal Medicine [facility] [address] [place] [phone] Diane Lopez MD [address] [address] 12/12/2024 9:15 AM PRESS TENDER STAR SIGNAL Office Visit [facility] Maternal Medicine [facility] [address] [place] [address] Diane Lopez MD [address] [facility] [address] [address] 12/14/2024 1:30 PM PRESS TENDER STAR SIGNAL Ancillary Procedure [facility] Maternal Medicine [address] [address] Jesus Harmon MD [address] [place] [address] 12/14/2024 2:00 PM PRESS TENDER STAR SIGNAL Office Visit [facility] Maternal Medicine [address] [place] [address] Jesus Harmon MD [address] [place] [address] 12/17/2024 12:45 PM PRESS TENDER STAR SIGNAL Appointment [facility] [place] [address] [place] [address] Jesus Harmon MD [address] [place] [address] 12/17/2024 1:15 PM PRESS TENDER STAR SIGNAL Office Visit [facility] Maternal Medicine [facility] [address] [place] [address] Jesus Harmon MD [address] [place] [address] 12/17/2024 1:30 PM PRESS TENDER STAR SIGNAL Office Visit [facility] Maternal Medicine [facility] [address] [place] [address] Jesus Harmon MD [address] [place] [address] 12/19/2024 9:30 AM PRESS TENDER STAR SIGNAL Appointment [facility] Maternal Medicine [facility] [address] [place] [phone] Nicole Byrd MD [address] [place] [address] Flower Amato MD [address] [facility] [address] [place] [address] 12/19/2024 10:00 AM PRESS TENDER STAR SIGNAL Office Visit [facility] Maternal Medicine [facility] [address] [place] [phone] Nicole Byrd MD [address] [place] [address] Flower Amato MD [address] [facility] [address] [address] 12/21/2024 11:45 AM PRESS TENDER STAR SIGNAL Appointment [facility] Maternal Medicine [place] [address] [address] [facility] [address] [place] [address] Jesus Harmon MD [address] [place] [address] Karin Esteban MD [address] [facility] [address] [address] 12/21/2024 12:15 PM PRESS TENDER STAR SIGNAL Office Visit [facility] Maternal Medicine [place] [address] [address] [facility] [address] [place] [phone] Jesus Harmon MD [address] [place] [address] Karin Esteban MD [address] [place] [address] 12/24/2024 11:00 AM PRESS TENDER STAR SIGNAL Appointment [facility] Maternal Medicine [facility] [address] [place] [phone] Jesus Harmon MD [address] [place] [address] 12/24/2024 11:30 AM PRESS TENDER STAR SIGNAL Office Visit [facility] [place] [address] [facility] [address] Jesus Harmon MD [address] [place] [address] 12/24/2024 11:45 AM PRESS TENDER STAR SIGNAL Office Visit [facility] Maternal Medicine [facility] [address] [place] [address] Jesus Harmon MD [address] [place] [address] 12/26/2024 10:15 AM PRESS TENDER STAR SIGNAL Appointment [facility] Maternal Medicine [place] [address] [place] [phone] Jesus Harmon MD [address] [place] [address] 12/26/2024 10:45 AM PRESS TENDER STAR SIGNAL Office Visit [facility] Maternal Medicine [place] [address] [place] [phone] Jesus Harmon MD [address] [place] [address] 12/28/2024 10:15 AM PRESS TENDER STAR SIGNAL Appointment [facility] Maternal Medicine [place] [address] [place] [phone] Diane Lopez MD [address] [address] 12/28/2024 10:45 AM PRESS TENDER STAR SIGNAL Office Visit [facility] Maternal Medicine [place] [address] [place] [phone] Diane Lopez MD [address] [address] 01/11/2025 10:15 AM CDT Appointment [facility] Maternal Medicine [place] [address] [place] [phone] Diane Lopez MD [address] [place] [address] [place], [place] [address] 01/11/2025 10:45 AM CDT Office Visit [facility] Maternal Medicine [facility] [address] [place] [address] Diane Lopez MD [address] [place] [address] [place], [place] [address] documented as of this encounter Results * MFM Twins US Comprehensive F/U (12/03/2024 3:46 PM PRESS TENDER STAR SIGNAL) Anatomical Region Laterality Modality Ultrasound 12/03/2024 2:24 PM PRESS TENDER STAR SIGNAL Impressions 12/04/2024 8:53 AM PRESS TENDER STAR SIGNAL IMPRESSION ----- Monochorionic diamniotic twin gestation at [...] reversed a wave. Narrative 12/04/2024 8:53 AM PRESS TENDER STAR SIGNAL Comp Follow Up ----- Pat. Name: DEANDRE CHÁVEZ Study Date: 12/03/2024 2:24pm Pat. NO: [id number] Referring MD: NICOLE BYRD Site: Supervisor Fiber Locking: Piper Huynh RDMS : 1995 Age: 29 [...] 1 lb 2 oz EFW by Hadlock ([id number]) EFW discordance 32.5 % Head / Face / Neck Biometry: [employer] Paralegal 7.2 mm CM 3.9 mm Thorax / [...] 0 lb 12 oz EFW by Hadlock (QIU-FK-XM-FL) EFW discordance 32.5 % Head / Face / Neck Biometry: [employer] Paralegal 6.3 mm Extremities / Bony Struc Biometry: Tibia 25.7 mm 1% Valadez Fibula 26.0 mm 3% Valadez Fetus 1: ANATOMY ----- The following structures appear normal: Head / Neck Cranium. Head size. Head shape. Lateral ventricles. Midline falx. Cavum septi pellucidi. Cerebellum. Cisterna magna. Thalami. Face Lips. Profile. Nose. Heart / Thorax 4-chamber view. RVOT view. LVOT view. 9-qsptot-fexkfcv view. Diaphragm. Abdomen Stomach. Kidneys. Bladder. Spine [...] Thorax 4-chamber view. RVOT view. LVOT view. 4-mgfsnw-nmjonpb view. sex: female. Fetus 1: TTTS ASSESSMENT [...] context, reviewed case with Dr. Spangler at [facility] to discuss possible management options. He [...] optimal outcomes for both babies and declines [facility] referral. After discussion regarding chances of [...] the patient (reviewing medical records/tests), in direct qtgq-lb-kolm contact with the patient during the visit counseling and discussing the plan of care and documenting the visit in the electronic medical record. Procedure Note Flor Dickson MD - 12/04/2024 Comp Follow Up ----- Pat. Name: DEANDRE CHÁVEZ Study Date: 12/03/2024 2:24pm Pat. NO: [id number] Referring MD: NICOLE BYRD Site: Supervisor Fiber Locking: Piper Huynh RDMS : 1995 Age: 29 [...] EFW (lb,oz) 1 lb 2oz EFW by Hadlock(SRM-ER-ZR-FL) EFW discordance 32.5% Head / Face / Neck Biometry: [employer] Paralegal 7.2mm CM 3.9mm Thorax / Lungs Biometry: [...] EFW (lb,oz) 0 lb 12oz EFW by Hadlock(IEJ-MA-CY-FL) EFW discordance 32.5% Head / Face / Neck Biometry: [employer] Paralegal 6.3mm Extremities / Bony Struc Biometry: Tibia 25.7mm 1%Valadez Fibula 26.0mm 3%Valadez Fetus 1: ANATOMY ----- The following structures appear normal: Head / Neck Cranium. Head size. Head shape.Lateral ventricles. Midline falx. Cavum septi pellucidi. Cerebellum.Cisterna magna. Thalami. Face Lips. Profile. Nose. Heart / Thorax 4-chamber view. RVOT view. LVOT view.8-hkdqzo-kjcyfet view. Diaphragm. Abdomen Stomach. Kidneys. Bladder. Spine [...] / Thorax 4-chamber view. RVOT view. LVOT view.1-tiqthr-nrozcdc view. sex: female. Fetus 1: TTTS ASSESSMENT [...] for twin 1. Given twin 2 is [id number] at 22 weeks, chances of intact survival [...] this context, reviewed case with Dr. Spangler [facility] to discuss possible management options. He discussed that there aresituations in which fetoscopic laser photocoagulation of the placenta could be offered todichorionize the placenta with the intent of improving outcomes for bothtwins. However, he notes that in this setting, chances of this leading to a co-twin demise of twin 2 arerather high (60-70%). Deandre desires optimal outcomes for both babies and declines [facility] referral.After discussion regarding chances of survival [...] see the patient(reviewing medical records/tests), in direct tvfs-wt-kjox contact with the patient during the visitcounseling [...] with intermittent reversed awave. Nicole Byrd MD [facility] ORDERABLES Edited Result - Final [...] antepartum documented in this encounter Care Teams Community Development Specialist Relationship Specialty Start Date End Date No Ref-Primary, Physician PCP - General 12/04/21 Flower Amato MD [address] [place] [address] Assigned OBGYN Provider 11/22/24 documented as of this encounter
--- OUTSIDE RECORDS SUMMARY | 2024-12-07 21:39 | XMS_ITS | Encounter Summary ---
Author Organization [place] Address [address] [facility] [place] [address] Care Team Providers Care Apprentice Instrument Technician Name Role Phone No Ref-Primary, Physician Primary Care Provider Flower Amato MD Unavailable [phone] Reason for Visit * Reason Comments Consult NICU consult- mono/d i twins sFGR Type II * Consultation (Routine: Next available opening) - Pending Review Specialty Diagnoses / Procedures Referred By Contac t Referred To Contact Diagnoses Monochorionic diamniotic twin , antepartum Flor Dickson MD [address] [facility] [address] [place] [address] Phone: tel: fax: Referral ID Status Reason Start Date Expiration Date V isits Requested Visits Authorized [id number] Pending Review 12/04/2024 12/04/2025 1 1 Encounter Details Date Type Department Care Team (Late st Contact Info) Description 12/05/2024 12:30 PM PRACTICE SUPPORT SPECIALIST Office Visit [facility] Maternal Medicine Center [place] [address] [place], [place] [address] Karin Esteban MD [address] [facility] [address] [place] [address] Rand Joe MD [address] [facility] [place] [address] Monochorionic diamniotic twin , antepartum [...] on file Legal Sex Female 11:44 PM PRACTICE SUPPORT SPECIALIST Gender Identity Not on file Sexual Orientation Not on file documented as of this encounter Progress Notes * Rand Joe MD - 12/05/2024 12:30 PM CST Dear Colleagues: I had the pleasure of meeting your patient, Heather Chávez, for counseling in [facility]. She was referred tome for consultation by [...] medical team and healthcare providers in the [facility]. I briefly described the [...] in the intensive care unit at the [facility]'s [facility]. Total time spent in consultation was 45 minutes, 100% of the time spent in direct counseling. Sincerely, Rand Joe MD Attending Tank Bottom Assembler [facility] NICU TICE SUPPORT SPECIALIST documented in this encounter Plan of Treatment Upcoming Encounters Date Type Department Care Team (Late st Contact Info) Description 12/10/2024 1:30 PM PRACTICE SUPPORT SPECIALIST Appointment [facility] Maternal Medicine [facility] [address] [place] [address] Jesus Harmon MD [address] [place], [place] [address] 12/10/2024 2:00 PM PRACTICE SUPPORT SPECIALIST Office Visit [facility] Maternal Medicine [facility] [address] [place] [address] Jesus Harmon MD [address] [place] [address] 12/10/2024 2:15 PM PRACTICE SUPPORT SPECIALIST Office Visit [facility] Maternal Medicine [facility] [address] [place] [address] Jesus Harmon MD [address] [place] [address] 12/12/2024 8:45 AM PRACTICE SUPPORT SPECIALIST Appointment [facility] Maternal Medicine [facility] [address] [place] [phone] Diane Lopez MD [address] [address] [address] 12/12/2024 9:15 AM PRACTICE SUPPORT SPECIALIST Office Visit [facility] Maternal Medicine [facility] [address] [place] [phone] Diane Lopez MD [address] [place] [address] 12/14/2024 1:30 PM PRACTICE SUPPORT SPECIALIST Ancillary Procedure [facility] Maternal Medicine [address] [place] [address] Jesus Harmon MD [address] [place] [address] 12/14/2024 2:00 PM PRACTICE SUPPORT SPECIALIST Office Visit [facility] Maternal Medicine [address] [phone] Jesus Harmon MD [address] [place] [address] 12/17/2024 12:45 PM PRACTICE SUPPORT SPECIALIST Appointment [facility] Maternal Medicine [facility] [address] [place] [address] Jesus Harmon MD [address] [place] [address] 12/17/2024 1:15 PM PRACTICE SUPPORT SPECIALIST Office Visit [facility] Medicine [facility] [place] [address] [place] [address] Jesus Harmon MD [address] [place] [address] 12/17/2024 1:30 PM PRACTICE SUPPORT SPECIALIST Office Visit [facility] [place] [address] [place] [address] Jesus Harmon MD [address] [place] [address] 12/19/2024 9:30 AM PRACTICE SUPPORT SPECIALIST Appointment [facility] Maternal Medicine [facility] [address] [facility] [address] [place] [phone] Nicole Núñez MD [address] [place] [address] Flower Amato MD [address] [facility] [address] [address] 12/19/2024 10:00 AM PRACTICE SUPPORT SPECIALIST Office Visit [facility] Maternal Medicine [facility] [address] [place] [address] Nicole Núñez MD [address] [facility] [address] Flower Amato MD [address] [facility] [address] [address] 12/21/2024 11:45 AM PRACTICE SUPPORT SPECIALIST Appointment [facility] Maternal Medicine [facility] [address] [place] [address] Jesus Harmon MD [address] [place], [place] [address] Karin Esteban MD [address] [address] [address] 12/21/2024 12:15 PM PRACTICE SUPPORT SPECIALIST Office Visit [facility] Maternal Medicine [facility] [address] [place] [address] Jesus Harmon MD [address] [place], [place] [address] Karin Esteban MD [address] [facility] [address] [address] 12/24/2024 11:00 AM PRACTICE SUPPORT SPECIALIST Appointment [facility] M[facility] Medicine Center [place] [address] [place] [address] Jesus Harmon MD [address] [place] [address] 12/24/2024 11:30 AM PRACTICE SUPPORT SPECIALIST Office Visit [facility] M[facility] Medicine [facility] [place] [address] [place] [address] Jesus Harmon MD [address] [place] [address] 12/24/2024 11:45 AM PRACTICE SUPPORT SPECIALIST Office Visit [facility] M[facility] [place] [address] [place] [address] Jesus Harmon MD [address] [place] [address] 12/26/2024 10:15 AM PRACTICE SUPPORT SPECIALIST Appointment [facility] Maternal Medicine [facility] [address] [place] [phone] Jesus Harmon MD [address] [place] [address] 12/26/2024 10:45 AM PRACTICE SUPPORT SPECIALIST Office Visit [facility] Maternal Medicine [facility] [address] [place] [address] Jesus Harmon MD [address] [place] [address] 12/28/2024 10:15 AM PRACTICE SUPPORT SPECIALIST Appointment [facility] Maternal Medicine [facility] [address] [place] [address] Diane Lopez MD [address] [address] 12/28/2024 10:45 AM PRACTICE SUPPORT SPECIALIST Office Visit [facility] Maternal Medicine [facility] [address] [place] [address] Diane Lopez MD [address] [place] [address] [place] [address] 01/11/2025 10:15 AM CDT Appointment [facility] Maternal Medicine [facility] [address] [place] [address] Diane Lopez MD [address] [place] [address] [place] [address] 01/11/2025 10:45 AM CDT Office Visit [facility] Maternal Medicine [facility] [address] [place] [phone] Diane Lopez MD [address] [place] [address] [place] [address] documented as of this encounter Visit Diagnoses [...] antepartum documented in this encounter Care Teams Apprentice Instrument Technician Relationship Specialty Start Date End Date No Ref-Primary, Physician PCP - General 12/04/21 Flower Amato MD [address] [place] [address] Assigned OBGYN Provider 11/22/24 documented as of this encounter
--- OUTSIDE RECORDS SUMMARY | 2024-12-07 21:39 | XMS_ITS | Clinical Summary ---
Author Organization [facility] Address [address] [facility] [place] [address] Care Team Providers Care Vba Programmer Name Role Phone No Ref-Primary, Physician Primary Care Provider Flower Amato MD Unavailable [phone] Allergies No known active allergies Medications [...] see the maternal medical record: Deandre Leyva MR#:[id number] Partner's name: Lso Baby's name: Delivery hospital: [facility] DIAGNOSIS: DIAGNOSIS / DIAGNOSES: 1) mono/di twins [...] 4) Relocation - 5) care with - Fletcher EDE to [facility] 12/10 6) Labs - Blood type: O [...] - D) DELIVERY PLAN: 1) Hospital - [facility] 2) Gestational age - 3) Route - [...] - REFERRING PROVIDER(S): 1) Primary OB Provider: [facility] 2) Other Sub-Specialty Provider: 3) Anticipated Pediatric Provider: DEMOGRAPHICS: Patient contact info: [phone] [place] [address] (home) Problem Noted Date Diagnosed Date Monochorionic diamniotic twin , antepar stew 12/04/2024 Estimated Date of Delivery Comme nts Yes 04/07/2025 Based on last me nstrual period of 07/01/2024 Encounters Date Type Department Care Team Description 12/07/2024 10:45 AM RESIDENTIAL CARE FACILITY MANAGER Office Visit [facility] [address] [address] Jaren Rodriguez MD Poor growth affecting management of mother in second trimester, fetus 2 (Primary Dx); Monochorionic diamniotic twin , antepartum 12/07/2024 10:08 AM RESIDENTIAL CARE FACILITY MANAGER Hospital Encounter [facility] [address] [phone] Jaren Rodriguez MD Monochorionic diamniotic twin , antepartum 12/07/2024 Travel 12/05/2024 12:30 PM RESIDENTIAL CARE FACILITY MANAGER Office Visit [facility] [address] [address] aKrin Esteban MD Scheurer, Rand Oleary MD Monochorionic diamniotic twin , antepartum 12/05/2024 12:15 PM RESIDENTIAL CARE FACILITY MANAGER Office Visit [facility] [address] [address] Karin Esteban MD Marcotte, Michael, MD Monochorionic diamniotic twin , antepartum (Primary Dx); Poor growth affecting management of mother in second trimester, fetus 2; Umbilical cord complication, unspecified cord complication, fetus 2 12/05/2024 11:20 AM RESIDENTIAL CARE FACILITY MANAGER - 12/05/2024 11:59 PM RESIDENTIAL CARE FACILITY MANAGER Hospital Encounter [facility] [address] [place] [phone] Karin Esteban MD Monochorionic diamniotic twin gestation in second trimester; Intrauterine growth restriction affecting antepartum care of mother in first trimester, fetus 2 Discharge Disposition: Home or Self Care 12/05/2024 Orders Only [facility] [address] [place] [address] Joceline Bejarano RN Monochorionic diamniotic twin , antepartum (Primary Dx) 12/05/2024 Travel 12/04/2024 Telephone [facility] [address] [place] [phone] Joceline Bejarano RN Appointment 12/04/2024 MyC Medical Advice [facility] [place] [place] [address] Joceline Bejarano RN 12/03/2024 2:45 PM RESIDENTIAL CARE FACILITY MANAGER Office Visit [facility] Medicine [facility] [address] [place] [address] Nicole Núñez MD Nashif, Sereen, MD Monochorionic diamniotic twin gestation in second trimester (Primary Dx); Intrauterine growth restriction affecting antepartum care of mother in second trimester, fetus 2 12/03/2024 2:01 PM RESIDENTIAL CARE FACILITY MANAGER - 12/03/2024 11:59 PM RESIDENTIAL CARE FACILITY MANAGER Hospital Encounter [facility] [address] [place] [phone] Nicole Núñez MD Monochorionic diamniotic twin gestation in second trimester Discharge Disposition: Home or Self Care 12/03/2024 Travel 12/02/2024 Telephone [facility] [address] [place] [phone] Beverly Gagnon RN Orders 11/30/2024 2:45 PM RESIDENTIAL CARE FACILITY MANAGER Office Visit [facility] [place] [address] [place] [address] Nicole Núñez MD Monochorionic diamniotic twin gestation in second trimester (Primary Dx); Intrauterine growth restriction affecting antepartum care of mother in first trimester, fetus 2; Ductus venosus abnormality 11/30/2024 1:31 PM RESIDENTIAL CARE FACILITY MANAGER - 11/30/2024 11:59 PM RESIDENTIAL CARE FACILITY MANAGER Hospital Encounter [facility] [place] [address] [place] [address] Nicole Núñez MD Monochorionic diamniotic twin gestation in second trimester Discharge Disposition: Home or Self Care 11/30/2024 12:25 PM RESIDENTIAL CARE FACILITY MANAGER - 11/30/2024 1:30 PM RESIDENTIAL CARE FACILITY MANAGER Hospital Encounter [facility] [address] [place] [phone] Yobani Crespo MD Monochorionic diamniotic twin gestation in second trimester Discharge Disposition: Home or Self Care 11/30/2024 12:00 PM RESIDENTIAL CARE FACILITY MANAGER - 11/30/2024 12:24 PM RESIDENTIAL CARE FACILITY MANAGER Hospital Encounter [facility] [address] [place] [phone] Yobani Crespo MD Monochorionic diamniotic twin gestation in second trimester Discharge Disposition: Home or Self Care 11/30/2024 Office Visit [facility] [address] [place] [address] [facility] [address] [place] [address] Luc Dominguez MD cardiac anomaly complicating , antepartum, fetus 1 (Primary Dx); cardiac anomaly complicating , antepartum, fetus 2 11/30/2024 Travel 11/22/2024 10:00 AM RESIDENTIAL CARE FACILITY MANAGER Office Visit [facility] [place] [address] [facility] [address] [place] [phone] Nicole Núñez MD Monochorionic diamniotic twin gestation in second trimester (Primary Dx); Intrauterine growth restriction affecting antepartum care of mother in first trimester, fetus 2 11/22/2024 9:28 AM RESIDENTIAL CARE FACILITY MANAGER - 11/22/2024 11:59 PM RESIDENTIAL CARE FACILITY MANAGER Hospital Encounter [facility] [place] [address] [place] [address] Nicole Núñez MD Monochorionic diamniotic twin gestation in second trimester Discharge Disposition: Home or Self Care 11/22/2024 Travel 11/14/2024 11:30 AM RESIDENTIAL CARE FACILITY MANAGER Office Visit [facility] [place] [address] [place] [address] Flower Amato MD Monochorionic diamniotic twin gestation in second trimester (Primary Dx); Discordant growth in twin gestation, fetus 2 of multiple gestation; Intrauterine growth restriction affecting antepartum care of mother in first trimester, fetus 2 11/14/2024 10:09 AM RESIDENTIAL CARE FACILITY MANAGER - 11/14/2024 11:59 PM RESIDENTIAL CARE FACILITY MANAGER Hospital Encounter [facility] [place] [address] [place] [address] Flower Amato MD Monochorionic diamniotic twin gestation in second trimester Discharge Disposition: Home or Self Care 11/14/2024 Travel 11/08/2024 10:00 AM RESIDENTIAL CARE FACILITY MANAGER Office Visit [facility] Medicine [place] [address] [place] [address] Flor Dickson MD Monochorionic diamniotic twin gestation in second trimester (Primary Dx); Discordant growth in twin gestation, fetus 2 of multiple gestation 11/08/2024 9:24 AM RESIDENTIAL CARE FACILITY MANAGER - 11/08/2024 11:59 PM RESIDENTIAL CARE FACILITY MANAGER Hospital Encounter [facility] [place] [address] [place] [address] Flor Dickson MD Monochorionic diamniotic twin gestation in second trimester Discharge Disposition: Home or Self Care 11/08/2024 Travel 11/02/2024 2:00 PM RESIDENTIAL CARE FACILITY MANAGER Office Visit [facility] [place] [address] [place] [address] Yobani Crespo MD Nashif, Sereen, MD Monochorionic diamniotic twin gestation in second trimester (Primary Dx); Intrauterine growth restriction affecting antepartum care of mother in first trimester, fetus 2 11/02/2024 1:22 PM RESIDENTIAL CARE FACILITY MANAGER - 11/02/2024 11:59 PM RESIDENTIAL CARE FACILITY MANAGER Hospital Encounter [facility] [place] [address] [place] [address] Yobani Crespo MD Nashif, Sereen, MD Monochorionic diamniotic twin gestation in second trimester Discharge Disposition: Home or Self Care 11/02/2024 Travel 10/26/2024 11:30 AM RESIDENTIAL CARE FACILITY MANAGER Office Visit [facility] [address] [phone] Estrella Esteban MD Monochorionic diamniotic twin gestation in second trimester (Primary Dx); growth restriction antepartum 10/26/2024 11:00 AM RESIDENTIAL CARE FACILITY MANAGER Ancillary Procedure [facility] [address] [phone] Estrella Esteabn MD Monochorionic diamniotic twin gestation in second trimester 10/26/2024 Travel 10/19/2024 11:30 AM RESIDENTIAL CARE FACILITY MANAGER Office Visit [facility] [place] [address] [place] [address] Yobani Crespo MD Monochorionic diamniotic twin gestation in second trimester (Primary Dx); growth restriction antepartum 10/19/2024 11:00 AM RESIDENTIAL CARE FACILITY MANAGER - 10/19/2024 11:59 PM RESIDENTIAL CARE FACILITY MANAGER Hospital Encounter [facility] [place] [address] [place] [address] Yobnai Crespo MD related condition, antepartum Discharge Disposition: Home or Self Care 10/19/2024 Travel 10/15/2024 PRE VISIT [facility] [address] [facility] [address] [place] [phone] Debra Tran RN Ultrasound (2/3 complete-Twin , mono-di) 10/10/[address] [facility] [address] [facility] [address] [place] [phone] Pamela Cuellar MD related condition, antepartum (Primary Dx) 10/09/2024 Medical Correspondence [facility] [address] [place] [address] Scan, Non-Provider from Last 3 Months Immunizations [...] on file Legal Sex Female 11:44 PM RESIDENTIAL CARE FACILITY MANAGER Gender Identity Not on file Sexual Orientation Not on file Last Filed Vital Signs Vital Sign Reading Time Taken Comments Blood Pressure 111/70 12/05/2024 1:59 PM RESIDENTIAL CARE FACILITY MANAGER Pulse 73 12/05/2024 1:59 PM RESIDENTIAL CARE FACILITY MANAGER Temperature 37.1 C (98.7 F) 12/24/2023 3:35 PM RESIDENTIAL CARE FACILITY MANAGER Respiratory Rate 18 12/05/2024 1:59 PM RESIDENTIAL CARE FACILITY MANAGER Oxygen Saturation 100% 12/05/2024 1:59 PM RESIDENTIAL CARE FACILITY MANAGER Inhaled Oxygen Concentration - - Weight 69.3 kg (152 lb 11.2 oz) 12/24/2023 3:35 PM RESIDENTIAL CARE FACILITY MANAGER Height 165.1 cm (5' 5) 12/04/2021 10:1 0 PM RESIDENTIAL CARE FACILITY MANAGER Body Mass Index 25.41 12/04/2021 10:10 PM RESIDENTIAL CARE FACILITY MANAGER Plan of Treatment Upcoming Encounters Date Type Department Care Team (Late st Contact Info) Description 12/10/2024 1:30 PM RESIDENTIAL CARE FACILITY MANAGER Appointment [facility] [address] [phone] Jesus Harmon MD [address] [place] [phone] 12/10/2024 2:00 PM RESIDENTIAL CARE FACILITY MANAGER Office Visit [facility] [address] [address] Jesus Harmon MD [address] [place] [address] 12/10/2024 2:15 PM RESIDENTIAL CARE FACILITY MANAGER Office Visit [facility] [address] [place] [address] Jesus Harmon MD [address] [place] [address] 12/12/2024 8:45 AM RESIDENTIAL CARE FACILITY MANAGER Appointment [facility] [address] [facility] [address] [place] [address] Yobani Crespo MD [address] [facility] [address] [place] [address] 12/12/2024 9:15 AM RESIDENTIAL CARE FACILITY MANAGER Office Visit [facility] [address] [facility] [address] [place] [address] Yobani Crespo MD [address] [facility] [address] [place] [address] 12/14/2024 1:30 PM RESIDENTIAL CARE FACILITY MANAGER Ancillary Procedure [facility] [address] [place] [phone] Jesus Harmon MD [address] [place] [address] 12/14/2024 2:00 PM RESIDENTIAL CARE FACILITY MANAGER Office Visit [facility] [address] [place] [phone] Jesus Harmon MD [address] [place] [address] 12/17/2024 12:45 PM RESIDENTIAL CARE FACILITY MANAGER Appointment [facility] [address] [place] [address] Jesus Harmon MD [address] [place] [address] 12/17/2024 1:15 PM RESIDENTIAL CARE FACILITY MANAGER Office Visit [facility] [place] [address] [place] [address] Jesus Harmon MD [address] [place] [address] 12/17/2024 1:30 PM RESIDENTIAL CARE FACILITY MANAGER Office Visit [facility] [address] [place] [address] Jesus Harmon MD [address] [place] [address] 12/19/2024 9:30 AM RESIDENTIAL CARE FACILITY MANAGER Appointment [facility] [place] [address] [place] [phone] Nicole Núñez MD [address] [place] [address] Flower Amato MD [address] [address] 12/19/2024 10:00 AM RESIDENTIAL CARE FACILITY MANAGER Office Visit [facility] [place] [address] [facility] [address] [place] [phone] Nicole Núñez MD [address] [place] [address] Flower Amato MD [address] [address] 12/21/2024 11:45 AM RESIDENTIAL CARE FACILITY MANAGER Appointment [facility] [place] [address] [facility] [address] [place] [address] Jesus Harmon MD [address] [place] [address] Karin Esteban MD [address] [address] 12/21/2024 12:15 PM RESIDENTIAL CARE FACILITY MANAGER Office Visit [facility] [place] [address] [place] [address] Jesus Harmon MD [address] [place] [address] Karin Esteban MD [address] [facility] [address] [place] [address] 12/24/2024 11:00 AM RESIDENTIAL CARE FACILITY MANAGER Appointment [facility] [place] [address] [place] [address] Jesus Harmon MD [address] [place] [address] 12/24/2024 11:30 AM RESIDENTIAL CARE FACILITY MANAGER Office Visit [facility] [address] [place] [address] Jesus Harmon MD [address] [place] [address] 12/24/2024 11:45 AM RESIDENTIAL CARE FACILITY MANAGER Office Visit [facility] [address] [place] [address] Jesus Harmon MD [address] [place] [address] 12/26/2024 10:15 AM RESIDENTIAL CARE FACILITY MANAGER Appointment [facility] [address] [place] [phone] Jesus Harmon MD [address] [place], [place] [address] 12/26/2024 10:45 AM RESIDENTIAL CARE FACILITY MANAGER Office Visit [facility] [address] [place] [phone] Jesus Harmon MD [address] [place] [address] 12/28/2024 10:15 AM RESIDENTIAL CARE FACILITY MANAGER Appointment [facility] [place] [address] [place] [address] Yobani Crespo MD [address] [place] [address] [place] [address] 12/28/2024 10:45 AM RESIDENTIAL CARE FACILITY MANAGER Office Visit [facility] [place] [address] [facility] [address] [place] [phone] Yobani Crespo MD [address] [place] [address] [place] [address] 01/11/2025 10:15 AM CDT Appointment [facility] [address] [facility] [address] [place] [phone] Yobani Crespo MD [address] [place] [address] [place] [address] 01/11/2025 10:45 AM CDT Office Visit [facility] [place] [address] [facility] [address] [place] [phone] Yobani Crespo MD [address] [place] [address] [place] [address] Health Maintenance Due Date Last Done Comments [...] US COMPREHENSIVE F/U Routine 12/07/2024 11:40 AM RESIDENTIAL CARE FACILITY MANAGER Monochorionic diamniotic twin , antepartum MFM TWINS US COMPREHENSIVE F/U Routine 12/05/2024 12:28 PM RESIDENTIAL CARE FACILITY MANAGER Monochorionic diamniotic twin gestation in second trimester Intrauterine growth restriction affecting antepartum care of mother in first trimester, fetus 2 MFM TWINS US COMPREHENSIVE F/U Routine 12/03/2024 3:46 PM RESIDENTIAL CARE FACILITY MANAGER Monochorionic diamniotic twin gestation in second trimester MFM TWINS US COMPREHENSIVE F/U Routine 11/30/2024 3:11 PM RESIDENTIAL CARE FACILITY MANAGER Monochorionic diamniotic twin gestation in second trimester ECHO COMPLETE Routine 11/30/2024 1 :46 PM RESIDENTIAL CARE FACILITY MANAGER Monochorionic diamniotic twin gestation in second trimester ECHO COMPLETE Routine 11/30/2024 1 :46 PM RESIDENTIAL CARE FACILITY MANAGER Monochorionic diamniotic twin gestation in second trimester MFM TWINS US COMPREHENSIVE F/U Routine 11/22/2024 11:09 AM RESIDENTIAL CARE FACILITY MANAGER Monochorionic diamniotic twin gestation in second trimester MFM TWINS US COMPREHENSIVE Routine 11/14/2024 11:59 AM RESIDENTIAL CARE FACILITY MANAGER Monochorionic diamniotic twin gestation in second trimester MFM TWINS US COMPREHENSIVE F/U Routine 11/08/2024 10:15 AM RESIDENTIAL CARE FACILITY MANAGER Monochorionic diamniotic twin gestation in second trimester MFM TWINS US COMPREHENSIVE F/U Routine 11/02/2024 2:26 PM RESIDENTIAL CARE FACILITY MANAGER Monochorionic diamniotic twin gestation in second trimester MFM TWINS US COMPREHENSIVE F/U Routine 10/26/2024 11:48 AM RESIDENTIAL CARE FACILITY MANAGER Monochorionic diamniotic twin gestation in second trimester MFM TWINS US OB COMPLETE 2/3 TRI Routine 10/19/2024 1:39 PM RESIDENTIAL CARE FACILITY MANAGER related condition, antepartum from Last 3 Months Results * MFM Twins US Comprehensive F/U (12/07/2024 11:40 AM RESIDENTIAL CARE FACILITY MANAGER) Only the most recent of8 resultswithin the time period is included. Anatomical Region Laterality Modality Ultrasound 12/07/2024 10:4 5 AM RESIDENTIAL CARE FACILITY MANAGER Impressions 12/07/2024 1:23 PM RESIDENTIAL CARE FACILITY MANAGER IMPRESSION ----- Patient here for growth assessment [...] bladder is visualized. Narrative 12/07/2024 1:23 PM [facility] Surveillance US ----- Pat. Name: DEANDRE LEYVA Study Date: 12/07/2024 10:45am Pat. NO: [id number] Referring MD: PAMELA CUELLAR Site: World Language Teacher: Kenyetta Lyons RDMS : 1995 Age: 29 [...] twin pregnancies with selective intrauterine growth restriction. Chinese Journal of Obstetrics and Gynecology, 203(4), 333.e1-7. ? Radha HALL, et al. (2018). Consensus definition of growth restriction: A [place] procedure. Ultrasound in Obstetrics & Gynecology, 52(1), 24-29. ? Luisa Dennis, et al. (2020). Twin complications: The risk of single intrauterine demise in monochorionic twins. Diagnosis, 40(9), 8268-1214. ? Boris Dennis, et al. (2012). mortality [...] LEYVA Study Date: 12/07/2024 10:45am Pat. NO: [id number] Referring MD: PAMELA CUELLAR Site: World Language Teacher: Kenyetta Lyons RDMS : 1995 Age: 29 [...] develops and no intervention is undertaken (Nando shaerer etal., 2018). The risk of sudden co-twin [...] in cases of AREDF in sFGR is ykkozcoxhlmos37-54 weeks (Radha et al., 2018), though survival [...] al. (2018). Consensus definition of growthrestriction: A [place] procedure. Ultrasound in Obstetrics & Gynecology,52(1), 24-29. ? Luisa Denins, et al. (2020). Twin complications: The risk ofsingle intrauterine demise in monochorionic twins. PrenatalDiagnosis, 40(9), 2314-8053. ? Boris Dennis et al. (2012). mortality [...] Final * ECHO COMPLETE (11/30/2024 1:46 PM RESIDENTIAL CARE FACILITY MANAGER) Anatomical Region Laterality Modality Echocardiography 11/30/2024 1:42 PM RESIDENTIAL CARE FACILITY MANAGER Narrative 11/30/2024 2:07 PM RESIDENTIAL CARE FACILITY MANAGER [id number] [facility] [id number]^ZAK^YOBANI Study ID: [id number] [facility]'[address] [address] Echocardiogram Name: DEANDRE LEYVA Study Date: 11/30/2024 [...] date: 04/07/2025. Gestational age: 21w5d. Delivery at: [place]. Specific Indication: echocardiogram performed for monochorionic diamniotic [...] to the left atrium. There is laminar dvqzv-oq-elzz shunting across the foramen ovale. Atrioventricular valves: [...] Procedure Note Luc Dominguez MD - 11/30/2024 [id number]^ZAK^YOBANI Study ID:[id number] [facility]'s [address] [address] Echocardiogram Name: DEANDRE LEYVA Study Date: 11/30/2024 01:42 PM Patient Location: [facility] Gender: Female Patient Class:Outpatient : [id number] Age: 29 yrs Ordering Provider: YOBANI CRESPO Referring Provider: YOBANI CRESPO Performed By: Daphney Dao RDCS Reading Physician: Luc Dominguez MD Reason For Study: [facility]otic [facility] Data: Number of fetuses: This is a twin gestation. Due date: 04/07/2025. Gestational age: 21w5d. Delivery at: [place]. Specific Indication: echocardiogram performed formonochorionic diamniotic twins. [...] breech position. The fetus is located on [facility]. The heart is in left chest. The [...] in to the left atrium. There is vfujzogupanb-mi-zudd shunting across the foramen ovale. Atrioventricular valves: [...] Final * ECHO COMPLETE (11/30/2024 1:46 PM RESIDENTIAL CARE FACILITY MANAGER) Anatomical Region Laterality Modality Echocardiography 11/30/2024 1:31 PM RESIDENTIAL CARE FACILITY MANAGER Narrative 11/30/2024 2:02 PM RESIDENTIAL CARE FACILITY MANAGER [id number]^ZAK^YOBANI Study ID: [id number] [facility] [address] Echocardiogram Name: DEANDRE LEYAV Study Date: 11/30/2024 01:31 PM Patient Location: [...] date: 04/07/2025. Gestational age: 21w5d. Delivery at: [place]. Specific Indication: echocardiogram performed for monochorionic diamniotic [...] to the left atrium. There is laminar hsesi-qg-okjc shunting across the foramen ovale. Atrioventricular valves: [...] Procedure Note Luc Dominguez MD - 11/30/2024 [id number] [facility] [id number]^ZAK^YOBANI Study ID:[id number] [facility] [address] [facility] [place] [address] Echocardiogram Name: DEANDRE LEYVA Study Date: 11/30/2024 [...] date: 04/07/2025. Gestational age: 21w5d. Delivery at: [place]. Specific Indication: echocardiogram performed formonochorionic diamniotic twins. [...] in to the left atrium. There is mixucvkqqaul-ux-pbtg shunting across the foramen ovale. Atrioventricular valves: [...] * MFM Twins Comprehensive (11/14/2024 11:59 AM RESIDENTIAL CARE FACILITY MANAGER) Anatomical Region Laterality Modality Ultrasound 11/14/2024 10:2 4 AM RESIDENTIAL CARE FACILITY MANAGER Impressions 11/14/2024 4:40 PM RESIDENTIAL CARE FACILITY MANAGER IMPRESSION ----- Monochorionic diamniotic twin gestation [...] anemia polycythemia syndrome. Narrative 11/14/2024 4:40 PM RESIDENTIAL CARE FACILITY MANAGER Comprehensive ----- Pat. Name: DEANDRE LEYVA Study Date: 11/14/2024 10:24am Pat. NO: [id number] Referring MD: PAMELA CUELLAR Site: World Language Teacher: Emerita Corona RDMS : 1995 Age: 29 [...] 0 lb 11 oz EFW by Hadlock ([id number]-[id number]-FL) EFW discordance 30.6 % Head / Face / Neck Biometry: Biomass Plant Technician 6.9 mm CM 2.6 mm Nasal [...] 0 lb 8 oz EFW by Hadlock ([id number]-FL) EFW discordance 30.6 % Head / Face / Neck Biometry: Biomass Plant Technician 6.8 mm CM 4.4 mm Extremities [...] view. RVOT view. LVOT view. 3-vessel view. 1-dtemgz-wfoldem view. Situs. Aortic arch view. Bicaval view. [...] Thorax 4-chamber view. RVOT view. LVOT view. 7-srmrra-cewichc view. Aortic arch view. sex: female. Fetus [...] recommendation. She was again offered referral to [place] for a second opinion/discussion about options in [...] the patient (reviewing medical records/tests), in direct xjwl-xk-zomh contact with the patient counseling and discussing the plan of care, documenting the visit in the electronic medical record, and communicating with other health medical care evaluation specialist and/or care coordination. Please see note for details. Procedure Note Flower Amato MD - 11/14/2024 Comprehensive ----- Pat. Name: DEANDRE LEYVA Study Date: 11/14/2024 10:24am Pat. NO: [id number] Referring MD: PAMELA CUELLAR Site: World Language Teacher: Emerita Corona RDMS : 1995 Age: 29 [...] EFW (lb,oz) 0 lb 11oz EFW by Hadlock(RHH-RS-BH-FL) EFW discordance 30.6% Head / Face / Neck Biometry: Biomass Plant Technician 6.9mm CM 2.6mm Nasal bone 7.8mm Fetus 2: BIOMETRY ----- BPD 42.9mm 19w 0dHadlock OFD 55.1mm 18w 2dNicolaides HC 156.8mm 18w 4dHadlock Cerebellum tr 18.1mm 18w 0dNicolaides Nuchal fold 3.0mm AC 128.0mm 18w 3d 15%Hadlock Femur 24.5mm 17w 3dHadlock Humerus 23.5mm 17w 2dJeanty Weight Calculation: EFW 219g 2%Hadlock EFW (lb,oz) 0 lb 8oz EFW by Hadlock(KVK-QV-[id number]-FL) EFW discordance 30.6% Head / Face / Neck Biometry: Biomass Plant Technician 6.8mm CM 4.4mm Extremities / Bony [...] 4-chamber view. RVOT view. LVOT view.3-vessel view. 1-guquph-cxbrimg view. Situs. Aortic arch view. Bicavalview. Ductal [...] / Thorax 4-chamber view. RVOT view. LVOT view.1-pykmxo-ftpupdt view. Aortic arch view. sex: female. Fetus [...] the recommendation. She was again offered referralto [facility] for a second opinion/discussion about options in [...] see the patient(reviewing medical records/tests), in direct gbmr-vn-wydx contact with the patient counseling and discussingthe plan of care, documenting the visit in the electronic medical record,and communicating with other health medical care evaluation specialist and/or care coordination. Please see note [...] anemia polycythemia syndrome. us Yobani Crespo MD [facility] US ORDERABLES Edited Result - Final * [facility] Twins US OB Complete 2/3 Tri (10/19/2024 1:39 PM RESIDENTIAL CARE FACILITY MANAGER) Anatomical Region Laterality Modality Ultrasound 10/19/2024 11:0 2 AM RESIDENTIAL CARE FACILITY MANAGER Impressions 10/21/2024 3:34 PM RESIDENTIAL CARE FACILITY MANAGER IMPRESSION ----- Monochorionic diamniotic twin gestation [...] long and closed. Narrative 10/21/2024 3:34 PM RESIDENTIAL CARE FACILITY MANAGER 2nd / 3rd Trim ----- Pat. Name: DEANDRE LEYVA Study Date: 10/19/2024 11:02am Pat. NO: [id number] Referring MD: PAMELA CUELLAR Site: World Language Teacher: Chantell Jarquin RDMS : 1995 Age: 29 [...] 0 lb 5 oz EFW by Hadlock ([id number]-NK-BW-FL) EFW discordance 26.5 % Head / Face / Neck Biometry: Biomass Plant Technician 6.3 mm CM 2.2 mm Nasal [...] 0 lb 4 oz EFW by Hadlock (VRB-BC-PP-FL) EFW discordance 26.5 % Head / Face / Neck Biometry: Biomass Plant Technician 6.7 mm CM 2.5 mm Fetus [...] Heart / Thorax 4-chamber view. 3-vessel view. 7-bmpsun-crrtsng view. sex: female. Fetus 2: ANATOMY ----- [...] Profile. Nose. Maxilla. Mandible. Heart / Thorax 2-szbdhk-jcgbtdz view. Aortic arch view. Bicaval view. Ductal [...] discussed the option a referral to the [place] care center to discuss the option of [...] the patient (reviewing medical records/tests), in direct hmat-ud-fpke contact with the patient during the visit counseling and discussing the plan of care and documenting the visit in the electronic medical record. Procedure Note Yobani Crespo MD - 10/22/2024 Trim ----- Pat. Name: DEANDRE LEYVA Study Date: 10/19/2024 11:02am Pat. NO: [id number] Referring MD: PAMELA CUELLAR Site: World Language Teacher: Chantell Jarquin RDMS : 1995 Age: 29 [...] EFW (lb,oz) 0 lb 5oz EFW by Hadlock(GKH-OR-CA-FL) EFW discordance 26.5% Head / Face / Neck Biometry: Biomass Plant Technician 6.3mm CM 2.2mm Nasal bone 4.1mm Fetus 2: BIOMETRY ----- BPD 31.4mm 15w 6dHadlock OFD 38.8mm -/-Nicolaides HC 112.9mm 15w 3dHadlock Cerebellum tr 15.8mm 15w 6dNicolaides Nuchal fold 2.1mm AC 89.7mm 15w 1d 34%Hadlock Femur 16.0mm 14w 5dHadlock Humerus 16.1mm 14w 4dJeanty Weight Calculation: EFW 113g 9%Hadlock EFW (lb,oz) 0 lb 4oz EFW by Hadlock(FHY-NA-QD-FL) EFW discordance 26.5% Head / Face / Neck Biometry: Biomass Plant Technician 6.7mm CM 2.5mm Fetus 1: ANATOMY [...] pellucidi. Heart / Thorax 4-chamber view. 3-vessel view.5-jggdgz-izgxxar view. sex: female. Fetus 2: ANATOMY ----- [...] Lips. Profile. Nose. Maxilla.Mandible. Heart / Thorax 5-ljszkr-smsaatk view. Aortic archview. Bicaval view. Ductal arch [...] discussed the option a referral to the [place] care center todiscuss the option of SLFP [...] see the patient(reviewing medical records/tests), in direct oxnw-ho-namq contact with the patient during the visitcounseling [...] long and closed. us Pamela Cuellar MD [facility] ORDERABLES Edited Re sult - Final from Last 3 Months Insurance [facility] Member Subscriber Plan / Payer (Ef fective 2021-Present) Name:Deandre Leyva Relation to Subscriber:Self Name:NORBERTDEANDRE SAVAGE Payer ID:[id number] (NAIC) Group ID:Not on file Type:[facility] Address: [place] [id number] Care Teams Vba Programmer Relationship Specialty Start Date End Date No Ref-Primary, Physician PCP - General 12/04/21 Flower Amato MD [address] [place] [address] Assigned OBGYN Provider 11/22/24
--- OUTSIDE RECORDS SUMMARY | 2024-12-07 21:39 | XMS_ITS | Encounter Summary ---
Author Organization [facility] Address [address] [place] [address] Care Team Providers Care Pressurizer Name Role Phone No Ref-Primary, Physician Primary Care Provider Flower Amato MD Unavailable [phone] Reason for Referral * Diagnostic Imaging Ultrasound (Routine) - Pending Review Specialty Diagnoses / Procedures Referred By Contac t Referred To Contact Radiology. Diagnoses Monochorionic diamniotic twin gestation Procedures MFM Twins US Comprehensive F/U Diane Lopez MD [address] [address] Phone: tel: fax: Referral ID Status Reason Start Date Expiration Date V isits Requested Visits Authorized [id number] Pending Review 10/19/2024 10/19/2025 1 1 NT SERVICE ADMINISTRATOR Reason for Visit * Diagnostic Imaging Ultrasound (Routine) - Pending Review Specialty Diagnoses / Procedures Referred By Noa lilly Referred To Contact Radiology. Diagnoses Monochorionic diamniotic twin gestation Procedures MFM Twins US Comprehensive F/U Diane Lopez MD [address] [place] [address] Phone: tel: fax: Referral ID Status Reason Start Date Expiration Date V isits Requested Visits Authorized [id number] Pending Review 10/19/2024 10/19/2025 1 1 Encounter Details Date Type Department Care Team (Latest Contact Info) Description 11/30/2024 1:31 PM CLIENT SERVICE ADMINISTRATOR - 11/30/2024 11:59 PM CLIENT SERVICE ADMINISTRATOR Hospital Encounter [facility] [address] [place] [phone] iNcole Núñez MD [address] [place], [place] [phone] 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 [...] file Legal Sex Female 11:44 PM CLIENT SERVICE ADMINISTRATOR Gender Identity Not on file Sexual Orientation [...] st Contact Info) Description 12/10/2024 1:30 PM CLIENT SERVICE ADMINISTRATOR Appointment [facility] [address] [place] [address] Jesus Harmon MD [address] [place] [address] 12/10/2024 2:00 PM CLIENT SERVICE ADMINISTRATOR Office Visit [facility] [address] [place] [address] Jesus Harmon MD [address] [place] [address] 12/10/2024 2:15 PM CLIENT SERVICE ADMINISTRATOR Office Visit [facility] [address] [place] [address] Jesus Harmon MD [address] [place] [address] 12/12/2024 8:45 AM CLIENT SERVICE ADMINISTRATOR Appointment [facility] [address] [place] [phone] Diane Lopez MD [address] [address] 12/12/2024 9:15 AM CLIENT SERVICE ADMINISTRATOR Office Visit [facility] [address] [place] [phone] Diane Lopez MD [address] [address] 12/14/2024 1:30 PM CLIENT SERVICE ADMINISTRATOR Ancillary Procedure [facility] [address] [phone] Jesus Harmon MD [address] [place] [address] 12/14/2024 2:00 PM CLIENT SERVICE ADMINISTRATOR Office Visit [facility] [address] [phone] Jesus Harmon MD [address] [place] [address] 12/17/2024 12:45 PM CLIENT SERVICE ADMINISTRATOR Appointment [facility] [address] [place] [address] Jesus Harmon MD [address] [place] [address] 12/17/2024 1:15 PM CLIENT SERVICE ADMINISTRATOR Office Visit [facility] [address] [place] [address] Jesus Harmon MD [address] [place] [address] 12/17/2024 1:30 PM CLIENT SERVICE ADMINISTRATOR Office Visit [facility] [address] [place] [address] Jesus Harmon MD [address] [place] [address] 12/19/2024 9:30 AM CLIENT SERVICE ADMINISTRATOR Appointment [facility] [address] [facility] [address] [place] [phone] Nicole Núñez MD [address] [place] [address] Flower Amato MD [address] [address] 12/19/2024 10:00 AM CLIENT SERVICE ADMINISTRATOR Office Visit [facility] [address] [place] [address] Nicole Núñez MD [address] [place] [address] Flower Amato MD [address] [address] 12/21/2024 11:45 AM CLIENT SERVICE ADMINISTRATOR Appointment [facility] [place] [address] [facility] [address] [place] [address] Jesus Harmon MD [address] [place], [place] [phone] Karin Esteban MD [address] [facility] [address] 12/21/2024 12:15 PM CLIENT SERVICE ADMINISTRATOR Office Visit [facility] [address] [facility] [address] [place] [address] Jesus Harmon MD [address] [place], [place] [phone] Karin Esteban MD [address] [address] 12/24/2024 11:00 AM CLIENT SERVICE ADMINISTRATOR Appointment [facility] [address] [facility] [place] [address] Jesus Harmon MD [address] [place] [address] 12/24/2024 11:30 AM CLIENT SERVICE ADMINISTRATOR Office Visit [facility] [address] [place] [address] Jesus Harmon MD [address] [place] [address] 12/24/2024 11:45 AM CLIENT SERVICE ADMINISTRATOR Office Visit [facility] [address] [place] [address] Jesus Harmon MD [address] [place] [address] 12/26/2024 10:15 AM CLIENT SERVICE ADMINISTRATOR Appointment [facility] [address] [place] [phone] Jesus Harmon MD [address] [place] [address] 12/26/2024 10:45 AM CLIENT SERVICE ADMINISTRATOR Office Visit [facility] [address] [place] [phone] Jesus Harmon MD [address] [place] [address] 12/28/2024 10:15 AM CLIENT SERVICE ADMINISTRATOR Appointment [facility] [address] [place] [phone] Diane Lopez MD [address] [address] 12/28/2024 10:45 AM CLIENT SERVICE ADMINISTRATOR Office Visit [facility] [address] [place] [phone] Diane Lopez MD [address] [place], [place] [address] 01/11/2025 10:15 AM CDT Appointment [facility] [address] [place] [phone] Diane Lopez MD [address] [place], [place] [phone] 01/11/2025 10:45 AM CDT Office Visit [facility] [address] [place] [phone] Diane Lopez MD [address] [place], [place] [phone] documented as of this encounter Procedures Procedure Name Priority Date/Time Associated Diagnosis Comments MFM TWINS US COMPREHENSIVE F/U Routine 11/30/2024 3:11 PM CLIENT SERVICE ADMINISTRATOR 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 Narrative 11/30/2024 8:09 PM [facility] Surveillance US ----- Pat. Name: EHATHER CHÁVEZ Study Date: 11/30/2024 2:04pm Pat. NO: [id number] Referring MD: PAMELA CUELLAR Site: Steam Cleaner: Kenyetta Lyons RDMS : 1995 Age: 29 [...] options at this time including referral to [facility] for consideration of laser procedure [...] discussed likely plan for delivery at the [facility]. Return to primary provider for continued care. If you have questions regarding today's evaluation or if we can be of further service, please contact the [facility]. anomalies may be present but not detected I spent a total of 15 minutes (excluding the ultrasound interpretation) on the date of this encounter including preparing to see the patient (reviewing medical records/tests), in direct bzix-os-prlg contact with the patient counseling and discussing the plan of care, documenting the visit in the electronic medical record, and communicating with other health hearing healthcare practitioner and/or care coordination. Procedure Note Nicole Núñez MD - 11/30/2024 Surveillance US ----- Pat. Name: HEATHER CHÁVEZ Study Date: 11/30/2024 2:04pm Pat. NO: [id number] Referring : PAMELA CUELLAR Site: Steam Cleaner: Kenyetta Lyons RDMS : 1995 Age: 29 [...] options at this time including referral to [facility] for consideration oflaser procedure to [...] see the patient(reviewing medical records/tests), in direct zkdv-vy-gmim contact with the patient counseling and discussingthe plan of care, documenting the visit in the electronic medical record,and communicating with other health hearing healthcare practitioner and/or care coordination. IMPRESSION ----- Monochorionic diamniotic [...] A waveand reversal. us Diane Lopez MD [facility] ORDERABLES Edited Result - Final documented [...] antepartum documented in this encounter Care Teams Pressurizer Relationship Specialty Start Date End Date No Ref-Primary, Physician PCP - General 12/04/21 Flower Amato MD [address] [address] Assigned OBGYN Provider 11/22/24 documented as of this encounter
--- OUTSIDE RECORDS SUMMARY | 2024-12-07 21:39 | XMS_ITS | Encounter Summary ---
Author Organization [facility] Address [address] [place] [address] Care Team Providers Care Agile Business Analyst Name Role Phone No Ref-Primary, Physician Primary Care Provider Flower Amato MD Unavailable [phone] Reason for Referral * CV Testing (Routine) - Closed Specialty Diagnoses / Procedures Referred By Contac t Referred To Contact Cardiology Diagnoses Monochorionic diamniotic twin gestation Procedures Echo (TTE) Complete Yobani Lopez MD [address] [place] [address] Phone: tel: fax: [facility] Heart [address] [address] Phone: tel: Referral ID Status Reason Start Date Expiration Date Visits Re quested Visits Authorized [id number] Closed 10/19/2024 10/19/2025 1 1 OID PLATFORM DEVELOPER Reason for Visit * CV Testing (Routine) - Closed Specialty Diagnoses / Procedures Referred By Contac t Referred To Contact Cardiology Diagnoses Monochorionic diamniotic twin gestation Procedures Echo (TTE) Yobani Olivares MD [address] [place] [address] Phone: tel: fax: [facility] [address] [place] [address] Phone: tel: Referral ID Status Reason Start Date Expiration Date Visits Re quested Visits Authorized [id number] Closed 10/19/2024 10/19/2025 1 1 Encounter Details Date Type Department Care Team (Latest Contact Info) Description 11/30/2024 12:00 PM ANDROID PLATFORM DEVELOPER - 11/30/2024 12:24 PM ANDROID PLATFORM DEVELOPER Hospital Encounter [facility] [address] [place] [phone] Yobani Lopez MD [address] [place] [address] [address] [place] [address] Monochorionic diamniotic twin gestation in [...] on file Legal Sex Female 11:44 PM ANDROID PLATFORM DEVELOPER Gender Identity Not on file Sexual Orientation [...] st Contact Info) Description 12/10/2024 1:30 PM ANDROID PLATFORM DEVELOPER Appointment [facility] Maternal Medicine [facility] [address] [place] [phone] Jesus Harmon MD [address] [place] [address] 12/10/2024 2:00 PM ANDROID PLATFORM DEVELOPER Office Visit [facility]aternal Medicine [facility] [address] [place] [address] Jesus Harmon MD [address] [place] [address] 12/10/2024 2:15 PM ANDROID PLATFORM DEVELOPER Office Visit [facility] Maternal Medicine [facility] [address] [facility] [place] [address] Jesus Harmon MD [address] [place] [address] 12/12/2024 8:45 AM ANDROID PLATFORM DEVELOPER Appointment [facility] Maternal Medicine [facility] [address] [facility] [address] [place] [phone] Yobani Lopez MD [address] [facility] [address] [place] [address] 12/12/2024 9:15 AM ANDROID PLATFORM DEVELOPER Office Visit [facility] Maternal Medicine [facility] [address] [facility] [address] [place] [phone] Yobani Lopez MD [address] [place] [address] 12/14/2024 1:30 PM ANDROID PLATFORM DEVELOPER Ancillary Procedure [facility] Maternal Medicine [address] [place] [address] Jesus Harmon MD [address] [place] [address] 12/14/2024 2:00 PM ANDROID PLATFORM DEVELOPER Office Visit [facility] Maternal Medicine [address] [phone] Jesus Harmon MD [address] [place] [address] 12/17/2024 12:45 PM ANDROID PLATFORM DEVELOPER Appointment [facility] Maternal Medicine [facility] [address] [place] [address] Jesus Harmon MD [address] [place] [address] 12/17/2024 1:15 PM ANDROID PLATFORM DEVELOPER Office Visit [facility] M[facility] [place] [address] [place] [address] Jesus Harmon MD [address] [place] [address] 12/17/2024 1:30 PM ANDROID PLATFORM DEVELOPER Office Visit [facility] [place] [address] [place] [address] Jesus Harmon MD [address] [place] [address] 12/19/2024 9:30 AM ANDROID PLATFORM DEVELOPER Appointment [facility] Maternal Medicine [place] [address] [facility] [address] [place] [phone] Nicole Núñez MD [address] [place] [address] Flower Amato MD [address] [address] 12/19/2024 10:00 AM ANDROID PLATFORM DEVELOPER Office Visit [facility] Maternal Medicine [place] [address] [facility] [address] [place] [phone] Nicole Núñez MD [address] [facility] [place] [address] Flower Amato MD [address] [address] 12/21/2024 11:45 AM ANDROID PLATFORM DEVELOPER Appointment [facility] Maternal Medicine [place] [address] [facility] [address] [place] [phone] Jesus Harmon MD [address] [place] [address] Karin Esteban MD [address] [address] 12/21/2024 12:15 PM ANDROID PLATFORM DEVELOPER Office Visit [facility] Maternal Medicine [place] [address] [facility] [address] [place] [phone] Jesus Harmon MD [address] [place] [address] Karin Esteban MD [address] [address] 12/24/2024 11:00 AM ANDROID PLATFORM DEVELOPER Appointment [facility] [place] [address] [place] [address] Jesus Harmon MD [address] [place] [address] 12/24/2024 11:30 AM ANDROID PLATFORM DEVELOPER Office Visit [facility] [place] [address] [place] [address] Jesus Harmon MD [address] [place] [address] 12/24/2024 11:45 AM ANDROID PLATFORM DEVELOPER Office Visit [facility] [place] [address] [place] [address] Jesus Harmon MD [address] [place], [place] 6[address] 12/26/2024 10:15 AM ANDROID PLATFORM DEVELOPER Appointment [facility] Maternal Medicine [place] [address] [place] [phone] Jesus Harmon MD [address] [place] [address] 12/26/2024 10:45 AM ANDROID PLATFORM DEVELOPER Office Visit [facility] Maternal Medicine [facility] [address] [place] [phone] Jesus Harmon MD [address] [place] [address] 12/28/2024 10:15 AM ANDROID PLATFORM DEVELOPER Appointment [facility] Maternal Medicine [facility] [address] [place] [phone] Yobani Lopez MD [address] [place] [address] 12/28/2024 10:45 AM ANDROID PLATFORM DEVELOPER Office Visit [facility] [place] [address] [facility] [address] [place] [phone] Yobani Lopez MD [address] [place] [address] 01/11/2025 10:15 AM CDT Appointment [facility] [place] [address] [facility] [address] [place] [phone] Yobani Lopez MD [address] [place] [address] 01/11/2025 10:45 AM CDT Office Visit [facility] [place] [address] [facility] [address] [place] [phone] Yobani Lopez MD [address] [place] [address] documented as of this encounter Procedures Procedure Name Priority Date/Time Associated Diagnosis Comments ECHO COMPLETE Routine 11/30/2024 1 :46 PM ANDROID PLATFORM DEVELOPER 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 Due date: 04/07/2025. Gestational age: 21w5d. Delivery at: [place]. Specific Indication: echocardiogram performed for monochorionic diamniotic [...] to the left atrium. There is laminar qxxfq-su-rpdj shunting across the foramen ovale. Atrioventricular valves: [...] Procedure Note Luc Dominguez MD - 11/30/2024 [id number] [facility] [id number]^YOBANI Study ID:[id number] [facility] [place] [address] Echocardiogram Name: HEATHER CHÁVEZ Study Date: 11/30/2024 01:31 PM Patient Location: [facility] Gender: Female Patient Class:Outpatient : [id number] Age: 29 yrs Ordering Provider: YOBANI LOPEZ Referring Provider: YOBANI LOPEZ Performed By: Daphney Dao RDCS Reading Physician: Luc Dominguez MD Reason For Study: Monochorionic diamniotic twin gestation in secondtrimester Data: Number of fetuses: This is a twin gestation. Due date: 04/07/2025. Gestational age: 21w5d. Delivery at: [place]. Specific Indication: echocardiogram performed formonochorionic diamniotic twins. [...] in to the left atrium. There is wqlnkydinwto-rl-mgca shunting across the foramen ovale. Atrioventricular valves: [...] antepartum documented in this encounter Care Teams Agile Business Analyst Relationship Specialty Start Date End Date No Ref-Primary, Physician PCP - General 12/04/21 Flower Amato MD [address] [address] Assigned OBGYN Provider 11/22/24 documented as of this encounter
--- OUTSIDE RECORDS SUMMARY | 2024-12-07 21:39 | XMS_ITS | Encounter Summary ---
Author Organization [facility] Address [address] [place] [address] Care Team Providers Care Bankruptcy Assistant Name Role Phone No Ref-Primary, Physician Primary Care Provider Flower Amato MD Unavailable Reason for Referral * Diagnostic Imaging Ultrasound (Routine) - Pending Review Specialty Diagnoses / Procedures Referred By Contac t Referred To Contact Radiology. Diagnoses Monochorionic diamniotic twin , antepartum Procedures MFM Twins Comprehensive F/U Jesus Harmon MD [address] [place] [address] Phone: tel: fax: Referral ID Status Reason Start Date Expiration Date V isits Requested Visits Authorized [id number] Pending Review 12/05/2024 12/05/2025 1 1 GER ENVIRONMENTAL HEALTH AND SAFETY Reason for Visit * Diagnostic Imaging Ultrasound (Routine) - Pending Review Specialty Diagnoses / Procedures Referred By Contac t Referred To Contact Radiology. Diagnoses Monochorionic diamniotic twin , antepartum Procedures MFM Twins Comprehensive F/U Jesus Harmon MD [address] [place] [address] Phone: tel: fax: Referral ID Status Reason Start Date Expiration Date V isits Requested Visits Authorized [id number] Pending Review 12/05/2024 12/05/2025 1 1 Encounter Details Date Type Department Care Team (Latest Contact Info) Description 12/07/2024 10:08 AM MANAGER ENVIRONMENTAL HEALTH AND SAFETY Hospital Encounter [facility] M[facility] Medicine [facility] [place] [address] [place] [phone] Jaren Rodriguez MD [address] [facility] [address] [place], [place] [phone] Monochorionic diamniotic twin , antepartum Social History [...] on file Legal Sex Female 11:44 PM MANAGER ENVIRONMENTAL HEALTH AND SAFETY Gender Identity Not on file Sexual Orientation Not on file documented as of this encounter Plan of Treatment Upcoming Encounters Date Type Department Care Team (Late st Contact Info) Description 12/10/2024 1:30 PM MANAGER ENVIRONMENTAL HEALTH AND SAFETY Appointment [facility] [place] [address] [place] [phone] Jesus Harmon MD [address] [place], [place] 7[address] 12/10/2024 2:00 PM MANAGER ENVIRONMENTAL HEALTH AND SAFETY Office Visit [facility] [place] [address] [place], [place] [address] [place] [address] Jesus Harmon MD [address] [place], [place] [address] 12/10/2024 2:15 PM MANAGER ENVIRONMENTAL HEALTH AND SAFETY Office Visit [facility] [place] [address] [place] [address] Jesus Harmon MD [address] [place], [place] 40[address]65 12/12/2024 8:45 AM MANAGER ENVIRONMENTAL HEALTH AND SAFETY Appointment [facility] Maternal Medicine [facility] [address] [place] [address] Diane Lopez MD [address] [place] [address] 12/12/2024 9:15 AM MANAGER ENVIRONMENTAL HEALTH AND SAFETY Office Visit [facility] Maternal Medicine [facility] [address] [place] [address] Diane Lopez MD [address] [place] [address] 12/14/2024 1:30 PM MANAGER ENVIRONMENTAL HEALTH AND SAFETY Ancillary Procedure [facility] Maternal Medicine [address] [place] [phone] Jesus Harmon MD [address] [place] [address] 12/14/2024 2:00 PM MANAGER ENVIRONMENTAL HEALTH AND SAFETY Office Visit [facility] Maternal Medicine [address] [place] [phone] Jesus Harmon MD [address] [place] [address] 12/17/2024 12:45 PM MANAGER ENVIRONMENTAL HEALTH AND SAFETY Appointment [facility] Maternal Medicine [facility] [address] [place] [address] Jesus Harmon MD [address] [place] [address] 12/17/2024 1:15 PM MANAGER ENVIRONMENTAL HEALTH AND SAFETY Office Visit [facility] Maternal Medicine [facility] [address] [place] [address] Jesus Harmon MD [address] [place] [address] 12/17/2024 1:30 PM MANAGER ENVIRONMENTAL HEALTH AND SAFETY Office Visit [facility] Maternal Medicine [facility] [address] [place] [address] Jesus Harmon MD [address] [place] [address] 12/19/2024 9:30 AM MANAGER ENVIRONMENTAL HEALTH AND SAFETY Appointment [facility] Maternal Medicine [facility] [address] [place] [phone] Nicole Núñez MD [address] [place] [address] Flower Amato MD 606 [facility] [address] [address] 12/19/2024 10:00 AM MANAGER ENVIRONMENTAL HEALTH AND SAFETY Office Visit [facility] Maternal Medicine [facility] [address] [place] [phone] Nicole Núñez MD [address] [place] [address] Flower Amato MD [address] [facility] [address] [address] 12/21/2024 11:45 AM MANAGER ENVIRONMENTAL HEALTH AND SAFETY Appointment [facility] Maternal Medicine [facility] [address] [place] [phone] Jesus Harmon MD [address] [place] [address] Karin Esteban MD [address] [place] [address] 12/21/2024 12:15 PM MANAGER ENVIRONMENTAL HEALTH AND SAFETY Office Visit [facility] Maternal Medicine [facility] [address] [facility] [address] [place] [phone] Jesus Harmon MD [address] [place] [address] Karin Esteban MD [address] [facility] [address] [place] [address] 12/24/2024 11:00 AM MANAGER ENVIRONMENTAL HEALTH AND SAFETY Appointment [facility] [place] [address] [facility] [place] [address] Jesus Harmon MD [address] [place] [address] 12/24/2024 11:30 AM MANAGER ENVIRONMENTAL HEALTH AND SAFETY Office Visit [facility] [place] [address] [place] [address] Jesus Harmon MD [address] [place] [address] 12/24/2024 11:45 AM MANAGER ENVIRONMENTAL HEALTH AND SAFETY Office Visit [facility] [place] [address] [facility] [place] [address] Jesus Harmon MD [address] [place] [address] 12/26/2024 10:15 AM MANAGER ENVIRONMENTAL HEALTH AND SAFETY Appointment [facility] Maternal Medicine [facility] [address] [facility] [address] [place] [phone] Jesus Harmon MD [address] [place] [address] 12/26/2024 10:45 AM MANAGER ENVIRONMENTAL HEALTH AND SAFETY Office Visit [facility] Maternal Medicine [place] [address] [facility] [address] [place] [phone] Jesus Harmon MD [address] [place] [address] 12/28/2024 10:15 AM MANAGER ENVIRONMENTAL HEALTH AND SAFETY Appointment [facility] Maternal Medicine [place] [address] [address] [facility] [address] [place] [phone] Diane Lopez MD [address] [place], [place] [address] 12/28/2024 10:45 AM MANAGER ENVIRONMENTAL HEALTH AND SAFETY Office Visit [facility] Maternal Medicine [place] [address] [address] [facility] [address] [place] [phone] Diane Lopez MD [address] [place], [place] [address] 01/11/2025 10:15 AM CDT Appointment [facility] Maternal Medicine [place] [address] [address] [facility] [address] [place] [phone] Diane Lopez MD [address] [place], [place] [address] 01/11/2025 10:45 AM CDT Office Visit [facility] Maternal Medicine [place] [address] [address] [facility] [address] [place] [phone] Diane Lopez MD [address] [place], [place] [address] documented as of this encounter Procedures Procedure Name Priority Date/Time Associated Diagnosis Comments MFM TWINS US COMPREHENSIVE F/U Routine 12/07/2024 11:40 AM MANAGER ENVIRONMENTAL HEALTH AND SAFETY Monochorionic diamniotic twin , antepartum documented in this encounter Results * MFM Twins US Comprehensive F/U (12/07/2024 11:40 AM MANAGER ENVIRONMENTAL HEALTH AND SAFETY) Anatomical Region Laterality Modality Ultrasound 12/07/2024 10:4 5 AM MANAGER ENVIRONMENTAL HEALTH AND SAFETY Impressions 12/07/2024 1:23 PM MANAGER ENVIRONMENTAL HEALTH AND SAFETY IMPRESSION ----- Patient here for growth assessment [...] bladder is visualized. Narrative 12/07/2024 1:23 PM MANAGER ENVIRONMENTAL HEALTH AND SAFETY [facility] Surveillance US ----- Pat. Name: DEANDRE CHÁVEZ Study Date: 12/07/2024 10:45am Pat. NO: [id number] Referring MD: PAMELA CUELLAR Site: Track Liner Operator: Kenyetta Lyons RDMS : 1995 Age: 29 [...] twin pregnancies with selective intrauterine growth restriction. [place] Journal of Obstetrics and Gynecology, 203(4), 333.e1-7. ? Radha HALL, et al. (2018). Consensus definition of growth restriction: A Brunswick procedure. Ultrasound in Obstetrics & Gynecology, 52(1), 24-29. ? Luisa Dennis et al. (2020). Twin complications: The risk of single intrauterine demise in monochorionic twins. Diagnosis, 40(9), 9629-8013. ? Boris Dennis et al. (2012). mortality [...] CHÁVEZ Study Date: 12/07/2024 10:45am Pat. NO: [id number] Referring MD: PAMELA CUELLAR Site: Track Liner Operator: Kenyetta Lyons RDMS : 1995 Age: 29 [...] in cases of AREDF in sFGR is -67 weeks (Radha et al., 2018), though survival [...] al. (2018). Consensus definition of growthrestriction: A Brunswick procedure. Ultrasound in Obstetrics & Gynecology,52(1), 24-29. ? Luisa Dennis, et al. (2020). Twin complications: The risk ofsingle intrauterine demise in monochorionic twins. PrenatalDiagnosis, 40(9), 6355-6549. ? Boris Dennis, et al. (2012). mortality [...] 5) bladder is visualized. Jesus Harmon MD [facility] ORDERABLES Edited Result - Final documented in [...] antepartum documented in this encounter Care Teams Bankruptcy Assistant Relationship Specialty Start Date End Date No Ref-Primary, Physician PCP - General 12/04/21 Flower Amato MD [address] [address] Assigned OBGYN Provider 11/22/24 documented as of this encounter
--- OUTSIDE RECORDS SUMMARY | 2024-12-07 21:39 | XMS_ITS | Encounter Summary ---
Author Organization [facility] Address [address] [place] [address] Care Team Providers Care Tensioning Machine Operator Name Role Phone No Ref-Primary, Physician Primary Care Provider Flower Amato MD Unavailable [phone] Reason for Referral * CV Testing (Routine) - Closed Specialty Diagnoses / Procedures Referred By Contac t Referred To Contact Cardiology Diagnoses Monochorionic diamniotic twin gestation Procedures Echo (TTE) Complete Yobani Lopez MD [address] [place] [address] Phone: tel: fax: [facility] [place] [facility] [address] [address] Phone: tel: Referral ID Status Reason Start Date Expiration Date Visits Re quested Visits Authorized [id number] Closed 10/19/2024 10/19/2025 1 1 RIST PHOTOGRAPHY Reason for Visit * CV Testing (Routine) - Closed Specialty Diagnoses / Procedures Referred By Contac t Referred To Contact Cardiology Diagnoses Monochorionic diamniotic twin gestation Procedures Echo (TTE) Yobani Olivares MD [address] [place] [address] Phone: tel: fax: [facility] [place] [facility] [address] [place] [address] Phone: tel: Referral ID Status Reason Start Date Expiration Date Visits Re quested Visits Authorized [id number] Closed 10/19/2024 10/19/2025 1 1 Encounter Details Date Type Department Care Team (Latest Contact Info) Description 11/30/2024 12:25 PM COLORIST PHOTOGRAPHY - 11/30/2024 1:30 PM COLORIST PHOTOGRAPHY Hospital Encounter [facility] [address] [place] [phone] Yobani Lopez MD [address] [place] [address] 400 [place] [address] Monochorionic diamniotic twin gestation in [...] on file Legal Sex Female 11:44 PM COLORIST PHOTOGRAPHY Gender Identity Not on file Sexual Orientation [...] st Contact Info) Description 12/10/2024 1:30 PM COLORIST PHOTOGRAPHY Appointment [facility] Maternal Medicine [facility] [address] [place] [phone] Jesus Harmon MD 500 [place] [address] 12/10/2024 2:00 PM COLORIST PHOTOGRAPHY Office Visit [facility] Maternal Medicine [facility] [address] [place] [address] Jesus Harmon MD [address] [place] [address] 12/10/2024 2:15 PM COLORIST PHOTOGRAPHY Office Visit [facility] Maternal Medicine [facility] [address] [facility] [place] [address] Jesus Harmon MD [address] [place] [address] 12/12/2024 8:45 AM COLORIST PHOTOGRAPHY Appointment [facility] Maternal Medicine [facility] [address] [place] [phone] Yobani Lopez MD [address] [facility] [address] [place] [address] 12/12/2024 9:15 AM COLORIST PHOTOGRAPHY Office Visit [facility] Maternal Medicine [facility] [address] [facility] [address] [place] [phone] Yobani Lopez MD [address] [place] [address] 12/14/2024 1:30 PM COLORIST PHOTOGRAPHY Ancillary Procedure [facility] Maternal Medicine [address] [place] [address] Jesus Harmon MD [address] [place] [address] 12/14/2024 2:00 PM COLORIST PHOTOGRAPHY Office Visit [facility] Maternal Medicine [address] [phone] Jesus Harmon MD [address] [place] [address] 12/17/2024 12:45 PM COLORIST PHOTOGRAPHY Appointment [facility] Maternal Medicine [facility] [address] [place] [address] Jesus Harmon MD [address] [place] [address] 12/17/2024 1:15 PM COLORIST PHOTOGRAPHY Office Visit [facility] [place] [address] [place] [address] Jesus Harmon MD [address] [place] [address] 12/17/2024 1:30 PM COLORIST PHOTOGRAPHY Office Visit [facility] [place] [address] [place] [address] Jesus Harmon MD [address] [place] [address] 12/19/2024 9:30 AM COLORIST PHOTOGRAPHY Appointment [facility] Maternal Medicine [place] [address] [facility] [address] [place] [phone] Nicole Núñez MD [address] [place] [address] Flower Amato MD [address] [address] 12/19/2024 10:00 AM COLORIST PHOTOGRAPHY Office Visit [facility] Maternal Medicine [place] [address] [place] [phone] Nicole Núñez MD [address] [facility] [place] [address] Flower Amato MD [address] [address] 12/21/2024 11:45 AM COLORIST PHOTOGRAPHY Appointment [facility] Maternal Medicine [place] [address] [place] [phone] Jesus Harmon MD [address] [place] [address] Karin Esteban MD [address] [address] 12/21/2024 12:15 PM COLORIST PHOTOGRAPHY Office Visit [facility] Maternal Medicine [place] [address] [place] [phone] Jesus Harmon MD [address] [place] [address] Karin Esteban MD [address] [address] 12/24/2024 11:00 AM COLORIST PHOTOGRAPHY Appointment [facility] [place] [address] [place] [address] Jesus Harmon MD 500 [place] [address] 12/24/2024 11:30 AM COLORIST PHOTOGRAPHY Office Visit [facility] [place] [address] [place] [address] Jesus Harmon MD 500 [place] [address] 12/24/2024 11:45 AM COLORIST PHOTOGRAPHY Office Visit [facility] [place] [address] [place] [address] Jesus Harmon MD [address] [place], [place] [address] 12/26/2024 10:15 AM COLORIST PHOTOGRAPHY Appointment [facility] Maternal Medicine [place] [address] [place] [phone] Jesus Harmon MD [address] [place] [address] 12/26/2024 10:45 AM COLORIST PHOTOGRAPHY Office Visit [facility] Maternal Medicine [facility] [address] [place] [phone] Jesus Harmon MD [address] [place] [address] 12/28/2024 10:15 AM COLORIST PHOTOGRAPHY Appointment [facility] Maternal Medicine [facility] [address] [place] [phone] Yobani Lopez MD [address] [place] [address] 12/28/2024 10:45 AM COLORIST PHOTOGRAPHY Office Visit [facility] Medicine [place] [address] [place] [phone] Yobani Lopez MD [address] [place] [address] 01/11/2025 10:15 AM CDT Appointment [facility] Medicine [place] [address] [place] [phone] Yobani Lopez MD [address] [place] [address] 01/11/2025 10:45 AM CDT Office Visit [facility] Medicine [place] [address] [place] [phone] Yobani Lopez MD [address] [place] [address] documented as of this encounter Procedures Procedure Name Priority Date/Time Associated Diagnosis Comments ECHO COMPLETE Routine 11/30/2024 1 :46 PM COLORIST PHOTOGRAPHY Monochorionic diamniotic twin gestation in second trimester documented in this encounter Results * ECHO COMPLETE (11/30/2024 1:46 PM COLORIST PHOTOGRAPHY) Anatomical Region Laterality Modality Echocardiography 11/30/2024 1:42 PM COLORIST PHOTOGRAPHY Narrative 11/30/2024 2:07 PM COLORIST PHOTOGRAPHY [id number] Study ID: [id number] [place] [address] [place] [address] Echocardiogram Name: HEATHER CHÁVEZ Study Date: 11/30/2024 01:42 PM Patient Location: [facility] Gender: Female Patient Class: Outpatient : [id number] Age: 29 yrs Ordering Provider: YOBANI LOPEZ Referring Provider: YOBANI LOPEZ Performed By: Daphney Dao RDCS Reading Physician: Luc Dominguez MD Reason For Study: Monochorionic diamniotic twin gestation in second trimester Data: Number of fetuses: This is a twin gestation. Due date: 04/07/2025. Gestational age: 21w5d. Delivery at: [facility]. Specific Indication: echocardiogram performed for monochorionic diamniotic [...] to the left atrium. There is laminar kkuer-uz-hrpp shunting across the foramen ovale. Atrioventricular valves: [...] Procedure Note Luc Dominguez MD - 11/30/2024 [id number] Study ID:[id number] [facility] [address] [address] Echocardiogram Name: HEATHER CHÁVEZ Study Date: 11/30/2024 01:42 PM Patient Location: [facility] Gender: Female Patient Class:Outpatient : [id number] Age: 29 yrs Ordering Provider: YOBANI LOPEZ Referring Provider: YOBANI LOPEZ Performed By: Daphney Dao RDCS Reading Physician: Luc Dominguez MD Reason For Study: Monochorionic diamniotic twin gestation in secondtrimester Data: Number of fetuses: This is a twin gestation. Due date: 04/07/2025. Gestational age: 21w5d. Delivery at: [facility]. Specific Indication: echocardiogram performed formonochorionic diamniotic twins. [...] The fetus is [facility]. The heart is in left chest. [...] in to the left atrium. There is nfdtqmclcbdx-om-pdkc shunting across the foramen ovale. Atrioventricular valves: [...] antepartum documented in this encounter Care Teams Tensioning Machine Operator Relationship Specialty Start Date End Date No Ref-Primary, Physician PCP - General 12/04/21 Flower Amato MD [address] [place] [address] Assigned OBGYN Provider 11/22/24 documented as of this encounter
--- OUTSIDE RECORDS SUMMARY | 2024-12-07 21:39 | XMS_ITS | Encounter Summary ---
Author Organization [facility] Address [address] [place] [address] Care Team Providers Care Deck And Hull Assembler Name Role Phone No Ref-Primary, Physician Primary Care Provider Flower Amato MD Unavailable [phone] Reason for Visit * Reason Comments Ultrasound F/U comp with MCA/UA R to evaluate Encounter Details Date Type Department Care Team (Late st Contact Info) Description 12/07/2024 10:45 AM INSTRUCTIONAL COACH Office Visit [facility] [place] [address] [place] [address] Jaren Rodriguez MD [address] [place] [address] Poor growth affecting management of [...] on file Legal Sex Female 11:44 PM INSTRUCTIONAL COACH Gender Identity Not on file Sexual Orientation [...] twin pregnancies with selective intrauterine growth restriction. [place] Journal of Obstetrics and Gynecology, 203(4), 333.e1-7. Radha HALL, et al. (2018). Consensus definition of growth restriction: A [place] procedure. Ultrasound in Obstetrics & Gynecology, 52(1), 24-29. Luisa M, et al. (2020). Twin complications: The risk of single intrauterine demisein monochorionic twins. Diagnosis, 40(9), 0395-0099. Boris Dennis, et al. (2012). mortality and [...] minutes (EXCLUDING ANY ULTRASOUND INTERPRETATION), including both fhic-li-hrcy and fmv-xmat-ox-face on the date of the encounter, addressing the above diagnosis. Activities performed in this time include chart review, obtaining / reviewing history, performing a medically necessary evaluation, documentation and Charge activities: counseling, care coordination, ordering tests, and reviewing results, equivalent to medical decision making that is of high complexity. RUCTIONAL COACH documented in this encounter Nursing Notes * [...] this time. Pt left amb and stable. RUCTIONAL COACH documented in this encounter Plan of Treatment Upcoming Encounters Date Type Department Care Team (Late st Contact Info) Description 12/10/2024 1:30 PM INSTRUCTIONAL COACH Appointment [facility] [address] [phone] Jesus Harmon MD [address] [place] [address] 12/10/2024 2:00 PM INSTRUCTIONAL COACH Office Visit [facility] [address] [address] Jesus Harmon MD [address] [place] [address] 12/10/2024 2:15 PM INSTRUCTIONAL COACH Office Visit [facility] [address] [address] Jesus Harmon MD [address] [place] [address] 12/12/2024 8:45 AM INSTRUCTIONAL COACH Appointment [facility] Maternal Medicine [facility] [address] [facility] [address] [place] [phone] Diane Lopez MD [address] [place] [address] 12/12/2024 9:15 AM INSTRUCTIONAL COACH Office Visit [facility] M[facility] [address] [facility] [address] [place] [address] Diane Lopez MD [address] [facility] [address] [place] [address] 12/14/2024 1:30 PM INSTRUCTIONAL COACH Ancillary Procedure [facility] [address] [place] [phone] Jesus Harmon MD [address] [place] [address] 12/14/2024 2:00 PM INSTRUCTIONAL COACH Office Visit [facility] [address] [place] [phone] Jesus Harmon MD [address] [place] [address] 12/17/2024 12:45 PM INSTRUCTIONAL COACH Appointment [facility] [address] [place] [phone] Jesus Harmon MD [address] [place] [address] 12/17/2024 1:15 PM INSTRUCTIONAL COACH Office Visit [facility] [address] [place] [address] Jesus Harmon MD [address] [place] [address] 12/17/2024 1:30 PM INSTRUCTIONAL COACH Office Visit [facility] [address] [place] [address] Jesus Harmon MD [address] [place] [address] 12/19/2024 9:30 AM INSTRUCTIONAL COACH Appointment [facility] Maternal Medicine [place] [address] [place] [phone] Nicole Núñez MD [address] [facility] [place] [address] Flower Amato MD [address] [facility] [address] [address] 12/19/2024 10:00 AM INSTRUCTIONAL COACH Office Visit [facility] Maternal Medicine [place] [address] [place] [phone] Nicole Núñez MD [address] [facility] [address] [place], [place] [address] Flower Amato MD [address] [facility] [address] [address] 12/21/2024 11:45 AM INSTRUCTIONAL COACH Appointment [facility] Maternal Medicine [place] [address] [place] [phone] Jesus Harmon MD [address] [place] [address] Karin Esteban MD [address] [facility] [address] [address] 12/21/2024 12:15 PM INSTRUCTIONAL COACH Office Visit [facility] Maternal Medicine [place] [address] [place] [phone] Jesus Harmon MD [address] [place] [address] Karin Esteban MD [address] [address] 12/24/2024 11:00 AM INSTRUCTIONAL COACH Appointment [facility] [place] [address] [facility] [place] [address] Jesus Harmon MD [address] [place] [address] 12/24/2024 11:30 AM INSTRUCTIONAL COACH Office Visit [facility] [address] [facility] [place] [address] Jesus Harmon MD [address] [place] [address] 12/24/2024 11:45 AM INSTRUCTIONAL COACH Office Visit [facility] [address] [place] [address] Jesus Harmon MD [address] [place] [address] 12/26/2024 10:15 AM INSTRUCTIONAL COACH Appointment [facility] M[facility] [address] [place] [address] Jesus Harmon MD [address] [place] [address] 12/26/2024 10:45 AM INSTRUCTIONAL COACH Office Visit [facility] M[facility] [address] [place] [address] Jesus Harmon MD [address] [place] [address] 12/28/2024 10:15 AM INSTRUCTIONAL COACH Appointment [facility] [address] [place] [address] Diane Lopez MD [address] [place] [address] 12/28/2024 10:45 AM INSTRUCTIONAL COACH Office Visit [facility] Maternal Medicine [place] [address] [place] [phone] Diane Lopez MD [address] [place] [address] 01/11/2025 10:15 AM CDT Appointment [facility] M[facility] [address] [place] [phone] Diane Lopez MD [address] [place] [address] 01/11/2025 10:45 AM CDT Office Visit [facility] Maternal Medicine [place] [address] [place] [phone] Diane Lopez MD [address] [place] [address] documented as of this encounter Visit Diagnoses [...] antepartum documented in this encounter Care Teams Deck And Hull Assembler Relationship Specialty Start Date End Date No Ref-Primary, Physician PCP - General 12/04/21 Flower Amato MD [address] [place] [address] Assigned OBGYN Provider 11/22/24 documented as of this encounter
--- OUTSIDE RECORDS SUMMARY | 2024-12-07 21:39 | XMS_ITS | Encounter Summary ---
Author Organization [place] Address [address] [place] [address] Care Team Providers Care Travel Ot Name Role Phone No Ref-Primary, Physician Primary Care Provider Flower Amato MD Unavailable [phone] Encounter Details Date Type Department Care [...] file Legal Sex Female 11:44 PM HAND STRIPPER Gender Identity Not on file Sexual Orientation Not on file documented as of this encounter Plan of Treatment Upcoming Encounters Date Type Department Care Team (Late st Contact Info) Description 12/10/2024 1:30 PM HAND STRIPPER Appointment [facility] [place] [address] [place] [phone] Jesus Harmon MD [address] [place] [address] 12/10/2024 2:00 PM HAND STRIPPER Office Visit [facility] [address] [place] [address] Jesus Harmon MD [address] [place] [address] 12/10/2024 2:15 PM HAND STRIPPER Office Visit [facility] Maternal Medicine [facility] [address] [place] [address] Jesus Harmon MD [address] [place] [address] 12/12/2024 8:45 AM HAND STRIPPER Appointment [facility] Maternal Medicine [facility] [address] [place] [phone] Diane Lopez MD [address] [address] 12/12/2024 9:15 AM HAND STRIPPER Office Visit [facility] M[facility] Medicine [facility] [address] [place] [address] Diane Lopez MD [address] [address] 12/14/2024 1:30 PM HAND STRIPPER Ancillary Procedure [facility] [address] [place] [phone] Jesus Harmon MD [address] [place] [address] 12/14/2024 2:00 PM HAND STRIPPER Office Visit [facility] Medicine [address] [address] Jesus Harmon MD [address] [place] [address] 12/17/2024 12:45 PM HAND STRIPPER Appointment [facility] [place] [address] [place] [phone] Jesus Harmon MD [address] [place] [address] 12/17/2024 1:15 PM HAND STRIPPER Office Visit [facility] [place] [address] [place] [address] Jesus Harmon MD [address] [place] [address] 12/17/2024 1:30 PM HAND STRIPPER Office Visit [facility] [place] [address] [place] [address] eJsus Harmon MD [address] [place] [address] 12/19/2024 9:30 AM HAND STRIPPER Appointment [facility] M[facility] Medicine [facility] [address] [facility] [address] [place] [phone] Nicole Núñez MD [address] [place] [phone] Flower Amato MD [address] [facility] [address] [address] 12/19/2024 10:00 AM HAND STRIPPER Office Visit [facility] M[facility] Medicine [facility] [address] [facility] [address] [place] [phone] Nicole Núñez MD [address] [place] [phone] Flower Amato MD [address] [address] 12/21/2024 11:45 AM HAND STRIPPER Appointment [facility] Maternal Medicine [place] [address] [facility] [address] [place] [phone] Jesus Harmon MD [address] [place] [address] Karin Esteban MD [address] [place], [place] [address] [address] [address] 12/21/2024 12:15 PM HAND STRIPPER Office Visit [facility] Maternal Medicine [place] [address] [facility] [address] [place] [phone] Jesus Harmon MD [address] [place] [address] Karin Esteban MD [address] [facility] [address] [address] 12/24/2024 11:00 AM HAND STRIPPER Appointment [facility] [place] [address] [place] [address] Jesus Harmon MD [address] [place] [address] 12/24/2024 11:30 AM HAND STRIPPER Office Visit [facility] [place] [address] [place] [address] Jesus Harmon MD [address] [place], [place] [address] 12/24/2024 11:45 AM HAND STRIPPER Office Visit [facility] [place] [address] [place] [address] Jesus Harmon MD [address] [place] [address] 12/26/2024 10:15 AM HAND STRIPPER Appointment [facility] Maternal Medicine [place] [address] [facility] [address] [place] [phone] Jesus Harmon MD [address] [place] [address] 12/26/2024 10:45 AM HAND STRIPPER Office Visit [facility] M[facility] Medicine [place] [address] [facility] [address] [place] [phone] Jesus Harmon MD [address] [place] [address] 12/28/2024 10:15 AM HAND STRIPPER Appointment [facility] [place] [address] [facility] [address] [place] [phone] Diane Lopez MD [address] [place] [address] 12/28/2024 10:45 AM HAND STRIPPER Office Visit [facility] [place] [address] [facility] [address] [place] [phone] Diane Lopez MD [address] [place] [address] 01/11/2025 10:15 AM CDT Appointment [facility] [place] [address] [facility] [address] [place] [phone] Diane Lopez MD [address] [place] [address] 01/11/2025 10:45 AM CDT Office Visit [facility] [place] [address] [place] [phone] Diane Lopez MD [address] [place] [address] documented as of this encounter Visit Diagnoses Not on filedocumented in this encounter Care Teams Travel Ot Relationship Specialty Start Date End Date No Ref-Primary, Physician PCP - General 12/04/21 Flower Amato MD [address] [place] [address] Assigned OBGYN Provider 11/22/24 documented as of this encounter
--- OUTSIDE RECORDS SUMMARY | 2024-12-07 21:40 | XMS_ITS | Encounter Summary ---
Author Organization [place] Address [address] [place] [address] Care Team Providers Care Vertical Contour Band Saw Operator Name Role Phone No Ref-Primary, Physician Primary Care Provider Flower Amato MD Unavailable [phone] Encounter Details Date Type Department Care Team [...] on file Legal Sex Female 11:44 PM STONECUTTER APPRENTICE HAND Gender Identity Not on file Sexual Orientation Not on file documented as of this encounter Plan of Treatment Upcoming Encounters Date Type Department Care Team (Late st Contact Info) Description 12/10/2024 1:30 PM STONECUTTER APPRENTICE HAND Appointment [facility] [place] [address] [place] [phone] Jesus Harmon MD [address] [place] [address] 12/10/2024 2:00 PM STONECUTTER APPRENTICE HAND Office Visit [facility] [address] [place] [address] Jesus Harmon MD [address] [place] [address] 12/10/2024 2:15 PM STONECUTTER APPRENTICE HAND Office Visit [facility] [address] [place] [address] Jesus Harmon MD [address] [place] [address] 12/12/2024 8:45 AM STONECUTTER APPRENTICE HAND Appointment [facility] M[facility] Medicine [facility] [address] [place] [phone] Diane Lopez MD [address] [address] 12/12/2024 9:15 AM STONECUTTER APPRENTICE HAND Office Visit [facility] Maternal Medicine [facility] [address] [place] [address] Diane Lopez MD [address] [address] 12/14/2024 1:30 PM STONECUTTER APPRENTICE HAND Ancillary Procedure [facility] [address] [place] [phone] Jesus Harmon MD [address] [place] [address] 12/14/2024 2:00 PM STONECUTTER APPRENTICE HAND Office Visit [facility] [address] [phone] Jesus Harmon MD [address] [place] [address] 12/17/2024 12:45 PM STONECUTTER APPRENTICE HAND Appointment [facility] [place] [address] [place] [phone] Jesus Harmon MD [address] [place] [address] 12/17/2024 1:15 PM STONECUTTER APPRENTICE HAND Office Visit [facility] [place] [address] [place] [address] Jesus Harmon MD [address] [place] [address] 12/17/2024 1:30 PM STONECUTTER APPRENTICE HAND Office Visit [facility] [place] [address] [place] [address] Jesus Harmon MD [address] [place] [address] 12/19/2024 9:30 AM STONECUTTER APPRENTICE HAND Appointment [facility] M[facility] [address] [facility] [address] [place] [phone] Nicole Núñez MD [address] [place] [phone] Flower Amato MD [address] [facility] [address] [address] 12/19/2024 10:00 AM STONECUTTER APPRENTICE HAND Office Visit [facility] Maternal Medicine [facility] [address] [facility] [address] [place] [phone] Nicole Núñez MD [address] [place] [phone] Flower Amato MD [address] [address] 12/21/2024 11:45 AM STONECUTTER APPRENTICE HAND Appointment [facility] [place] [address] [address] [facility] [address] [place] [phone] Jesus Harmon MD [address] [place] [address] Karin Esteban MD [address] [place], [place] [address] [address] [address] 12/21/2024 12:15 PM STONECUTTER APPRENTICE HAND Office Visit [facility] [place] [address] [address] [facility] [address] [place] [phone] Jesus Harmon MD [address] [place] [address] Karin Esteban MD [address] [facility] [address] [address] 12/24/2024 11:00 AM STONECUTTER APPRENTICE HAND Appointment [facility] [place] [address] [place] [address] Jesus Harmon MD [address] [place] [address] 12/24/2024 11:30 AM STONECUTTER APPRENTICE HAND Office Visit [facility] [place] [address] [place] [address] Jesus Harmon MD [address] [place], [place] [address] 12/24/2024 11:45 AM STONECUTTER APPRENTICE HAND Office Visit [facility] [place] [address] [facility] [place] [address] Jesus Harmon MD [address] [place] [address] 12/26/2024 10:15 AM STONECUTTER APPRENTICE HAND Appointment [facility] [place] [address] [facility] [address] [place] [phone] Jesus Harmon MD [address] [place] [address] 12/26/2024 10:45 AM STONECUTTER APPRENTICE HAND Office Visit [facility] [place] [address] [address] [facility] [address] [place] [phone] Jesus Harmon MD [address] [place] [address] 12/28/2024 10:15 AM STONECUTTER APPRENTICE HAND Appointment [facility] [place] [address] [address] [facility] [address] [place] [phone] Diane Lopez MD [address] [place] [address] 12/28/2024 10:45 AM STONECUTTER APPRENTICE HAND Office Visit [facility] [place] [address] [address] [facility] [address] [place] [phone] Diane Lopez MD [address] [place] [address] 01/11/2025 10:[address] [facility] [place] [address] [address] [facility] [address] [place] [phone] Diane Lopez MD [address] [place] [address] 01/11/2025 10:45 AM CDT Office Visit [facility] [place] [address] [place] [phone] Diane Lopez MD [address] [place] [address] documented as of this encounter Visit Diagnoses Not on filedocumented in this encounter Care Teams Vertical Contour Band Saw Operator Relationship Specialty Start Date End Date No Ref-Primary, Physician PCP - General 12/04/21 Flower Amato MD [address] [place] [address] Assigned OBGYN Provider 11/22/24 documented as of this encounter
--- OUTSIDE RECORDS SUMMARY | 2024-12-07 21:40 | XMS_ITS | Encounter Summary ---
Author Organization [place] Address [address] [facility] [place] [place] [address] Care Team Providers Care Test Eng Name Role Phone No Ref-Primary, Physician Primary Care Provider Reason for Visit * Reason Comments Ultrasound RL2/MCA/UAR/TTTS elizabeth ck-M/D twins, Elevated MCA and AEDF on F2 Encounter Details Date Type Department Care Team (Latest Contact Info) Description 11/02/2024 2:00 PM HOME STAGING SPECIALIST Office Visit [facility] [place] [address] [facility] [address] [place] [address] Diane Lopez MD [address] [place] [address] Flor Dickson MD [address] [place] [address] Monochorionic diamniotic twin gestation in [...] on file Legal Sex Female 11:44 PM HOME STAGING SPECIALIST Gender Identity Not on file Sexual Orientation Not on file documented as of this encounter Progress Notes * Flor Dickson MD - 11/02/2024 2:00 PM CST The patient was seen for an ultrasound in the [facility] clinic today. For a detailed report of the ultrasound examination, please see the ultrasound report which can be found under the imaging tab. If you have questions regarding today's evaluation or if we can be of further service, please contact the Maternal- Medicine Center. Flor Dickson M.D. Maternal -Medicine Specialist STAGING SPECIALIST documented in this encounter Nursing Notes * Debra Tran, RN - 11/02/2024 2:00 PM CST Patient presents to [facility] for RL2/MCA/UAR/TTTS check at 17w5d due to M/D twins, Elevated MCA and AEDFon F2. Denies LOF, vaginal bleeding or cramping/contractions. SBAR given to M MD, see their note in Epic. STAGING SPECIALIST documented in this encounter Plan of Treatment Upcoming Encounters Date Type Department Care Team (Late st Contact Info) Description 12/10/2024 1:30 PM HOME STAGING SPECIALIST Appointment [facility] [address] [phone] Jesus Harmon MD [address] [place], [place] [address] 12/10/2024 2:00 PM HOME STAGING SPECIALIST Office Visit [facility] [address] [address] Jesus Harmon MD [address] [place], [place] [address] 12/10/2024 2:15 PM HOME STAGING SPECIALIST Office Visit [facility] [place] [address] [place] [address] Jesus Harmon MD [address] [place] [address] 12/12/2024 8:45 AM HOME STAGING SPECIALIST Appointment [facility] Medicine [facility] [address] [place] [address] Diane Lopez MD [address] [facility] [address] [place] [address] 12/12/2024 9:15 AM HOME STAGING SPECIALIST Office Visit [facility] [address] [place] [address] Diane Lopez MD [address] [address] 12/14/2024 1:30 PM HOME STAGING SPECIALIST Ancillary Procedure [facility] [address] [phone] Jesus Harmon MD [address] [place] [address] 12/14/2024 2:00 PM HOME STAGING SPECIALIST Office Visit [facility] [address] [place] [phone] Jesus Harmon MD [address] [place] [address] 12/17/2024 12:45 PM HOME STAGING SPECIALIST Appointment [facility] [address] [place] [address] Jesus Harmon MD [address] [place] [address] 12/17/2024 1:15 PM HOME STAGING SPECIALIST Office Visit [facility] [place] [address] [place] [address] Jesus Harmno MD [address] [place] [address] 12/17/2024 1:30 PM HOME STAGING SPECIALIST Office Visit [facility] [place] [address] [facility] [place] [address] Jesus Harmon MD [address] [place] [address] 12/19/2024 9:30 AM HOME STAGING SPECIALIST Appointment [facility] [address] [place] [phone] Nicole Núñez MD [address] [facility] [place] [address] Flower Amato MD [address] [address] 12/19/2024 10:00 AM HOME STAGING SPECIALIST Office Visit [facility] [address] [place] [phone] Nicole Núñez MD [address] [facility] [place], [place] [phone] Flower Amato MD [address] [address] 12/21/2024 11:45 AM HOME STAGING SPECIALIST Appointment [facility] [address] [place] [phone] Jesus Harmon MD [address] [place] [address] Karin Esteban MD [address] [facility] [address] 12/21/2024 12:15 PM HOME STAGING SPECIALIST Office Visit [facility] [place] [address] [facility] [address] [address] [place] [address] Jesus Harmon MD [address] [place] [address] Karin Esteban MD [address] [place] [address] 12/24/2024 11:00 AM HOME STAGING SPECIALIST Appointment [facility] [place] [address] [place] [phone] Jesus Harmon MD [address] [place] [address] 12/24/2024 11:30 AM HOME STAGING SPECIALIST Office Visit [facility] [place] [address] [facility] [place] [address] Jesus Harmon MD [address] [place] [address] 12/24/2024 11:45 AM HOME STAGING SPECIALIST Office Visit [facility] [place] [address] [facility] [place] [address] Jesus Harmon MD [address] [place] [address] 12/26/2024 10:15 AM HOME STAGING SPECIALIST Appointment [facility] Maternal Medicine [facility] [address] [place] [phone] Jesus Harmon MD [address] [place] [address] 12/26/2024 10:45 AM HOME STAGING SPECIALIST Office Visit [facility] [place] [address] [place] [phone] Jesus Harmon MD [address] [place] [address] 12/28/2024 10:15 AM HOME STAGING SPECIALIST Appointment [facility] [place] [address] [place] [phone] Diane Lopez MD [address] [place] [address] 12/28/2024 10:45 AM HOME STAGING SPECIALIST Office Visit [facility] [place] [address] [place] [phone] Diane Lopez MD [address] [place] [address] 01/11/2025 10:15 AM CDT Appointment [facility] [place] [address] [place] [phone] Diane Lopez MD [address] [place] [address] 01/11/2025 10:45 AM CDT Office Visit [facility] [place] [address] [place] [phone] Diane Lopez MD [address] [place] [address] documented as of this encounter Visit Diagnoses [...] antepartum documented in this encounter Care Teams Test Eng Relationship Specialty Start Date End Date No Ref-Primary, Physician PCP - General 12/04/21 documented as of this encounter
--- OUTSIDE RECORDS SUMMARY | 2024-12-07 21:40 | XMS_ITS | Encounter Summary ---
Author Organization [facility] Address [address] [place] [address] Care Team Providers Care Mica Plate Layer Name Role Phone No Ref-Primary, Physician Primary Care Provider Reason for Visit * Diagnostic Imaging Ultrasound (Routine) - Pending Review Specialty Diagnoses / Procedures Referred By Contac t Referred To Contact Radiology. Diagnoses Monochorionic diamniotic twin gestation Procedures MFM Twins US Comprehensive F/U Diane Lopez MD [address] [place] [address] [address] [place] [address] Phone: tel: fax: Referral ID Status Reason Start Date Expiration Date V isits Requested Visits Authorized [id number] Pending Review 10/19/2024 10/19/2025 1 1 Encounter Details Date Type Department Care Team (Latest Contact Info) Description 10/26/2024 11:00 AM INSTRUCTOR [employer] Ancillary Procedure [facility] Maternal Medicine Center [address] [place] [phone] Estrella Esteban MD [address] [place] [address] [address] [place], [place] [address] 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 [...] on file Legal Sex Female 11:44 PM INSTRUCTOR [employer] Gender Identity Not on file Sexual Orientation Not on file documented as of this encounter Plan of Treatment Upcoming Encounters Date Type Department Care Team (Late st Contact Info) Description 12/10/2024 1:30 PM INSTRUCTOR [employer] Appointment [facility] Maternal Medicine Center [place] [address] [place] [address] Jesus Harmon MD [address] [place], [place] [address] 12/10/2024 2:00 PM INSTRUCTOR [employer] Office Visit [facility] [place] [address] [place] [address] Jesus Harmon MD [address] [place] [address] 12/10/2024 2:15 PM INSTRUCTOR [employer] Office Visit [facility] M[facility] Medicine [facility] [place] [address] [place] [address] Jesus Harmon MD [address] [place] [address] 12/12/2024 8:45 AM INSTRUCTOR [employer] Appointment [facility] Maternal Medicine [facility] [address] [place] [phone] Diane Lopez MD [address] [address] 12/12/2024 9:15 AM INSTRUCTOR [employer] Office Visit [facility] Maternal Medicine Center [place] [address] [place] [phone] Diane Lopez MD [address] [address] 12/14/2024 1:30 PM INSTRUCTOR [employer] Ancillary Procedure [facility] Maternal Medicine [address] [place] [address] Jesus Harmon MD [address] [place] [address] 12/14/2024 2:00 PM INSTRUCTOR [employer] Office Visit [facility] Maternal Medicine [address] [phone] Jesus Harmon MD [address] [place] [address] 12/17/2024 12:45 PM INSTRUCTOR [employer] Appointment [facility] Maternal Medicine [facility] [address] [place] [address] Jesus Harmon MD [address] [place] [address] 12/17/2024 1:15 PM INSTRUCTOR [employer] Office Visit [facility] Maternal Medicine [facility] [address] [place] [address] Jesus Harmon MD [address] [place] [address] 12/17/2024 1:30 PM INSTRUCTOR [employer] Office Visit [facility] [place] [address] [place] [address] Jesus Harmon MD [address] [place] [address] 12/19/2024 9:30 AM INSTRUCTOR [employer] Appointment [facility] Maternal Medicine [facility] [address] [facility] [address] [place] [phone] Nicole Núñez MD [address] [place] [address] Flower Amato MD [address] [facility] [address] [address] 12/19/2024 10:00 AM INSTRUCTOR [employer] Office Visit [facility] Maternal Medicine [facility] [address] [place] [address] Nicole Núñez MD [address] [facility] [facility] [address] Flower Amato MD [address] [facility] [address] [address] 12/21/2024 11:45 AM INSTRUCTOR [employer] Appointment [facility] Maternal Medicine [facility] [address] [place] [phone] Jesus Harmon MD [address] [place], [place] [address] Karin Esteban MD [address] [address] [address] 12/21/2024 12:15 PM INSTRUCTOR [employer] Office Visit [facility] Maternal Medicine [facility] [address] [place] [address] Jesus Harmon MD [address] [place], [place] [address] Karin Esteban MD [address] [facility] [address] [address] 12/24/2024 11:00 AM INSTRUCTOR [employer] Appointment [facility] [place] [address] [place] [address] Jesus Harmon MD [address] [place] [address] 12/24/2024 11:30 AM INSTRUCTOR [employer] Office Visit [facility] [place] [address] [place] [address] Jesus Harmon MD [address] [place] [address] 12/24/2024 11:45 AM INSTRUCTOR [employer] Office Visit [facility] Maternal Medicine Center [place] [address] [place] [address] Jesus Harmon MD [address] [place] [address] 12/26/2024 10:15 AM INSTRUCTOR [employer] Appointment [facility] Maternal Medicine [facility] [address] [place] [phone] Jesus Harmon MD [address] [place] [address] 12/26/2024 10:45 AM INSTRUCTOR [employer] Office Visit [facility] Maternal Medicine [facility] [address] [place] [phone] Jesus Harmon MD [address] [place] [address] 12/28/2024 10:15 AM INSTRUCTOR [employer] Appointment [facility] Maternal Medicine [facility] [address] [place] [phone] Diane Lopez MD [address] [address] 12/28/2024 10:45 AM INSTRUCTOR [employer] Office Visit [facility] Maternal Medicine [facility] [address] [place] [phone] Diane Lopez MD [address] [place] [address] [place] [address] 01/11/2025 10:15 AM CDT Appointment [facility] Maternal Medicine [facility] [address] [place] [phone] Diane Lopez MD [address] [place] [address] [place], [place] [address] 01/11/2025 10:45 AM CDT Office Visit [facility] Maternal Medicine [place] [address] [place] [phone] Diane Lopez MD [address] [place] [address] [place], [place] [phone] documented as of this encounter Procedures Procedure Name Priority Date/Time Associated Diagnosis Comments MFM TWINS US COMPREHENSIVE F/U Routine 10/26/2024 11:48 AM INSTRUCTOR [employer] 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 Narrative 10/26/2024 1:47 PM INSTRUCTOR [employer] [facility] ----- Pat. Name: DEANDRE CHÁVEZ Study Date: 10/26/2024 11:05am Pat. NO: [id number] Referring MD: PAMELA CUELLAR Site: [employer] Operator: Drea Varela RDMS : 1995 Age: [...] reviewed the option to consult with the [facility] to discuss the option of SLFP further. At this time, they wish to continue expectant management as they would not consider termination. We also reviewed the possibility of prolonged antepartum admission at the time they are accepting of intervention if the continues to advance. They understand that admission would be recommended at [facility]. We reviewed the difficult decisions [...] the patient (reviewing medical records/tests), in direct asqf-gy-xnog contact with the patient during the visit counseling and discussing the plan of care and documenting the visit in the electronic medical record. Procedure Note Estrella Esteban MD - 10/26/2024 [facility] ----- Pat. Name: DEANDRE CHÁVEZ Study Date: 10/26/2024 11:05am Pat. NO: [id number] Referring MD: PAMELA CUELLAR Site: [employer] Operator: Drea Varela RDMS : 1995 Age: [...] reviewed the option to consult with the [facility] to discuss theoption of SLFP further. At this time, they wish to continue expectantmanagement as they would not consider termination. We also reviewed the possibility of prolongedantepartum admission at the time they are accepting of intervention if thepregnancy continues to advance. They understand that admission would be recommended at [facility]. We reviewed the difficult decisions that may [...] see the patient(reviewing medical records/tests), in direct pngh-sx-leuj contact with the patient during the visitcounseling [...] demonstrate increased MCAPSV. us Diane Lopez MD [facility] Edited Result - Final documented [...] antepartum documented in this encounter Care Teams Mica Plate Layer Relationship Specialty Start Date End Date No Ref-Primary, Physician PCP - General 12/04/21 documented as of this encounter
--- OUTSIDE RECORDS SUMMARY | 2024-12-07 21:40 | XMS_ITS | Encounter Summary ---
Author Organization [facility] Address [address] [place] [address] Care Team Providers Care Court Transcriber Name Role Phone No Ref-Primary, Physician Primary Care Provider Flower Amato MD Unavailable [phone] Reason for Visit * Reason Comments Ultrasound RL2/UAR/MCA-mono/di twins, fetus 2 FGR and AEDF, fetus 1 mild polyhydramnios Encounter Details Date Type Department Care Team (Latest Contact Info) Description 12/03/2024 2:45 PM RELIEF DRILLER Office Visit [facility] Maternal Medicine Center [place] [address] [place] [address] Nicole Núñez MD [address] [place] [address] Flor Dickson MD [address] [place] [address] [address] [place] [address] Monochorionic diamniotic twin gestation in [...] on file Legal Sex Female 11:44 PM RELIEF DRILLER Gender Identity Not on file Sexual Orientation [...] Center. Flor Dickson M.D. Maternal -Medicine Specialist EF DRILLER documented in this encounter Nursing Notes * Rivka Jones, RN - 12/03/2024 2:45 PM CST Patient reports positive movement x 2. Education provided to patient on today's ultrasound and plan for future ultrasounds. SBAR given to [facility], see their note in Epic. EF DRILLER documented in this encounter Plan of Treatment Upcoming Encounters Date Type Department Care Team (Late st Contact Info) Description 12/10/2024 1:30 PM RELIEF DRILLER Appointment [facility] Maternal Medicine [address] [place] [phone] Jesus Harmon MD [address] [place] [address] 12/10/2024 2:00 PM RELIEF DRILLER Office Visit [facility] Medicine [address] [place] [address] Jesus Harmon MD [address] [place] [address] 12/10/2024 2:15 PM RELIEF DRILLER [facility] [place] [address] [place] [address] Jesus Harmon MD [address] [place] [address] 12/12/2024 8:45 AM RELIEF DRILLER Appointment [facility] Maternal Medicine [facility] [address] [place] [address] Diane Lopez MD [address] [facility] [address] [place] [address] 12/12/2024 9:15 AM RELIEF DRILLER Office Visit [facility] Maternal Medicine [facility] [address] [place] [address] Diane Lopez MD [address] [facility] [address] [place] [address] 12/14/2024 1:30 PM RELIEF DRILLER Ancillary Procedure [facility] Maternal Medicine [address] [place] [phone] Jesus Harmon MD [address] [place] [address] 12/14/2024 2:00 PM RELIEF DRILLER Office Visit [facility] Maternal Medicine [address] [place] [phone] Jesus Harmon MD [address] [place] [address] 12/17/2024 12:45 PM RELIEF DRILLER Appointment [facility] Maternal Medicine [facility] [address] [place] [address] Jesus Harmon MD [address] [place], [place] [address] 12/17/2024 1:15 PM RELIEF DRILLER Office Visit [facility] M[facility] Medicine [facility] [place] [address] [facility] [place] [address] Jesus Harmon MD [address] [place] [address] 12/17/2024 1:30 PM RELIEF DRILLER Office Visit [facility] [place] [address] [facility] [place] [address] Jesus Harmon MD [address] [place] [address] 12/19/2024 9:30 AM RELIEF DRILLER Appointment [facility] Maternal Medicine [place] [address] [place] [phone] Nicole Núñez MD [address] [facility] [address] [place], [place] [address] Flower Amato MD [address] [facility] [address] [address] 12/19/2024 10:00 AM RELIEF DRILLER Office Visit [facility] Maternal Medicine [facility] [address] [place] [phone] Nicole Núñez MD 606 [facility] [place] [address] Flower Amato MD [address] [facility] [address] [facility] [address] [place], [place] [address] 12/21/2024 11:45 AM RELIEF DRILLER Appointment [facility] Maternal Medicine [facility] [address] [place] [phone] Jesus Harmon MD [address] [place] [address] Karin Esteban MD [address] [place] [address] 12/21/2024 12:15 PM RELIEF DRILLER Office Visit [facility] Maternal Medicine [place] [address] [facility] [address] [place] [phone] Jesus Harmon MD [address] [place] [address] Karin Esteban MD [address] [place] [address] 12/24/2024 11:00 AM RELIEF DRILLER Appointment [facility] [place] [facility] Maternal Medicine Center [place] [address] [place] [phone] Jesus Harmon MD [address] [place] [address] 12/24/2024 11:30 AM RELIEF DRILLER Office Visit [facility] Medicine [facility] [place] [address] [facility] [place] [address] Jesus Harmon MD [address] [place] [address] 12/24/2024 11:45 AM RELIEF DRILLER Office Visit [facility] Medicine [facility] [place] [address] [place] [address] Jesus Harmon MD [address] [place] [address] 12/26/2024 10:15 AM RELIEF DRILLER Appointment [facility] [place] [facility] Maternal Medicine [place] [address] [facility] [address] [place] [address] Jesus Harmon MD [address] [place] [address] 12/26/2024 10:45 AM RELIEF DRILLER Office Visit [facility] Maternal Medicine Center [place] [address] [place] [address] Jesus Harmon MD [address] [place] [address] 12/28/2024 10:15 AM RELIEF DRILLER Appointment [facility] Maternal Medicine [place] [address] [place] [address] Diane Lopez MD [address] [place] [address] [place] [address] 12/28/2024 10:45 AM RELIEF DRILLER Office Visit [facility] Maternal Medicine [facility] [address] [place] [address] Diane Lopez MD [address] [place] [address] [place] [address] 01/11/2025 10:15 AM CDT Appointment [facility] Maternal Medicine [facility] [address] [place] [address] Diane Lopez MD [address] [place] [address] [place] [address] 01/11/2025 10:45 AM CDT Office Visit [facility] Maternal Medicine [facility] [address] [place] [address] Diane Lopez MD [address] [place] [address] [place] [address] documented as of this encounter Visit Diagnoses [...] antepartum documented in this encounter Care Teams Court Transcriber Relationship Specialty Start Date End Date No Ref-Primary, Physician PCP - General 12/04/21 Flower Amato MD [address] [address] Assigned OBGYN Provider 11/22/24 documented as of this encounter
--- OUTSIDE RECORDS SUMMARY | 2024-12-07 21:40 | XMS_ITS | Encounter Summary ---
Author Organization [facility] Address [address] [place] [address] Care Team Providers Care Cardiovascular Invasive Specialist Name Role Phone No Ref-Primary, Physician Primary Care Provider Flower Amato MD Unavailable [phone] Reason for Referral * Diagnostic Imaging Ultrasound (Routine) - Pending Review Specialty Diagnoses / Procedures Referred By Contac t Referred To Contact Radiology. 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 Procedures MFM Twins Comprehensive F/U Nicole Byrd MD [address] [place] [address] Phone: tel: fax: Referral ID Status Reason Start Date Expiration Date V isits Requested Visits Authorized [id number] Pending Review 11/30/2024 11/30/2025 1 1 Encounter Details Date Type Department Care Team (Latest Contact Info) Description 12/03/2024 2:01 PM BOOSTER ASSEMBLER - 12/03/2024 11:59 PM BOOSTER ASSEMBLER Hospital Encounter [facility] [place] [address] [place] [phone] Nicole Byrd MD [address] [place], [place] [phone] 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 [...] on file Legal Sex Female 11:44 PM BOOSTER ASSEMBLER Gender Identity Not on file Sexual [...] st Contact Info) Description 12/10/2024 1:30 PM BOOSTER ASSEMBLER Appointment [facility] [address] [place] [address] Jesus Harmon MD [address] [place] [address] 12/10/2024 2:00 PM BOOSTER ASSEMBLER Office Visit [facility] [address] [place] [address] Jesus Harmon MD [address] [place], [place] [address] 12/10/2024 2:15 PM BOOSTER ASSEMBLER Office Visit [facility] [address] [place] [address] Jesus Harmon MD [address] [place] [address] 12/12/2024 8:45 AM BOOSTER ASSEMBLER Appointment [facility] M[facility] [address] [place] [phone] Diane Lopez MD [address] [facility] [address] [place], [place] [address] 12/12/2024 9:15 AM BOOSTER ASSEMBLER Office Visit [facility] [address] [place] [phone] Diane Lopez MD [address] [facility] [address] [facility] [address] [place], [place] [address] 12/14/2024 1:30 PM BOOSTER ASSEMBLER Ancillary Procedure [facility] [address] [phone] Jesus Harmon MD [address] [place] [address] 12/14/2024 2:00 PM BOOSTER ASSEMBLER Office Visit [facility] [address] [phone] Jesus Harmon MD [address] [place] [address] 12/17/2024 12:45 PM BOOSTER ASSEMBLER Appointment [facility] [address] [place] [phone] Jesus Harmon MD [address] [place] [address] 12/17/2024 1:15 PM BOOSTER ASSEMBLER Office Visit [facility] [place] [address] [place] [address] Jesus Harmon MD [address] [place] [address] 12/17/2024 1:30 PM BOOSTER ASSEMBLER Office Visit [facility] [place] [address] [place] [address] Jesus Harmon MD [address] [place] [address] 12/19/2024 9:30 AM BOOSTER ASSEMBLER Appointment [facility] [address] [facility] [address] [place] [phone] Nicole Byrd MD [address] [place] [address] Flower Amato MD [address] [facility] [address] [address] 12/19/2024 10:00 AM BOOSTER ASSEMBLER Office Visit [facility] [address] [place] [address] Nicole Byrd MD [address] [facility] [place] [address] Flower Amato MD [address] [facility] [address] [address] 12/21/2024 11:45 AM BOOSTER ASSEMBLER Appointment [facility] [address] [place] [address] Jesus Harmon MD [address] [place] [address] Karin Esteban MD [address] [address] [address] 12/21/2024 12:15 PM BOOSTER ASSEMBLER Office Visit [facility] [address] [place] [address] Jesus Harmon MD [address] [place] [address] Karin Esteban MD [address] [address] [address] 12/24/2024 11:00 AM BOOSTER ASSEMBLER Appointment [facility] [place] [address] [place] [address] Jesus Harmon MD [address] [place] [address] 12/24/2024 11:30 AM BOOSTER ASSEMBLER Office Visit [facility] [address] [place] [address] Jesus Harmon MD [address] [place] [address] 12/24/2024 11:45 AM BOOSTER ASSEMBLER Office Visit [facility] [address] [facility] [place] [address] Jesus Harmon MD [address] [place] [address] 12/26/2024 10:15 AM BOOSTER ASSEMBLER Appointment [facility] [address] [place] [phone] Jesus Harmon MD [address] [place] [address] 12/26/2024 10:45 AM BOOSTER ASSEMBLER Office Visit [facility] [address] [place] [phone] Jesus Harmon MD [address] [place] [address] 12/28/2024 10:15 AM BOOSTER ASSEMBLER Appointment [facility] [address] [place] [phone] Diane Lopez MD [address] [address] 12/28/2024 10:45 AM BOOSTER ASSEMBLER Office Visit [facility] [address] [place] [phone] Diane Lopez MD [address] [place] [address] [place] [address] 01/11/2025 10:15 AM CDT Appointment [facility] [address] [place] [phone] Diane Lopez MD [address] [place] [address] [place], [place] [address] 01/11/2025 10:45 AM CDT Office Visit [facility] M[facility] [place] [address] [place] [phone] Diane Lopez MD [address] [place] [address] [place], [place] [address] documented as of this encounter Procedures Procedure Name Priority Date/Time Associated Diagnosis Comments MFM TWINS US COMPREHENSIVE F/U Routine 12/03/2024 3:46 PM BOOSTER ASSEMBLER 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 Narrative 12/04/2024 8:53 AM BOOSTER ASSEMBLER Comp Follow Up ----- Pat. Name: HEATHER CHÁVEZ Study Date: 12/03/2024 2:24pm Pat. NO: [id number] Referring MD: NICOLE BYRD Site: Dovetailer: Piper Huynh RDMS : 1995 Age: 29 [...] 1 lb 2 oz EFW by Hadlock ([id number]) EFW discordance 32.5 % Head / Face / Neck Biometry: Acetylene Torch Operator 7.2 mm CM 3.9 mm Thorax / [...] 0 lb 12 oz EFW by Hadlock ([id number]) EFW discordance 32.5 % Head / Face / Neck Biometry: Acetylene Torch Operator 6.3 mm Extremities / Bony Struc Biometry: Tibia 25.7 mm 1% Valadez Fibula 26.0 mm 3% Valadez Fetus 1: ANATOMY ----- The following structures appear normal: Head / Neck Cranium. Head size. Head shape. Lateral ventricles. Midline falx. Cavum septi pellucidi. Cerebellum. Cisterna magna. Thalami. Face Lips. Profile. Nose. Heart / Thorax 4-chamber view. RVOT view. LVOT view. 5-plpmee-apctyin view. Diaphragm. Abdomen Stomach. Kidneys. Bladder. Spine [...] Thorax 4-chamber view. RVOT view. LVOT view. 6-tjznmt-migmhjc view. sex: female. Fetus 1: TTTS ASSESSMENT [...] context, reviewed case with Dr. Spangler at [facility] to discuss possible management options. He discussed [...] optimal outcomes for both babies and declines [facility] referral. After discussion regarding chances of survival [...] the patient (reviewing medical records/tests), in direct ebey-kh-hldj contact with the patient during the visit counseling and discussing the plan of care and documenting the visit in the electronic medical record. Procedure Note Flor Dickson MD - 12/04/2024 Comp Follow Up ----- Pat. Name: HEATHER CHÁVEZ Study Date: 12/03/2024 2:24pm Pat. NO: [id number] Referring MD: NICOLE BYRD Site: Dovetailer: Piper Huynh RDMS : 1995 Age: 29 [...] EFW (lb,oz) 1 lb 2oz EFW by Hadlock([id number]) EFW discordance 32.5% Head / Face / Neck Biometry: Acetylene Torch Operator 7.2mm CM 3.9mm Thorax / Lungs Biometry: [...] EFW (lb,oz) 0 lb 12oz EFW by Hadlock([id number]) EFW discordance 32.5% Head / Face / Neck Biometry: Acetylene Torch Operator 6.3mm Extremities / Bony Struc Biometry: Tibia 25.7mm 1%Valadez Fibula 26.0mm 3%Valadez Fetus 1: ANATOMY ----- The following structures appear normal: Head / Neck Cranium. Head size. Head shape.Lateral ventricles. Midline falx. Cavum septi pellucidi. Cerebellum.Cisterna magna. Thalami. Face Lips. Profile. Nose. Heart / Thorax 4-chamber view. RVOT view. LVOT view.5-fzjpbj-vcjpzku view. Diaphragm. Abdomen Stomach. Kidneys. Bladder. Spine [...] / Thorax 4-chamber view. RVOT view. LVOT view.2-qsjepd-qtfwzom view. sex: female. Fetus 1: TTTS ASSESSMENT [...] for twin 1. Given twin 2 is [id number] at 22 weeks, chances of intact survival [...] this context, reviewed case with Dr. Spangler [facility] to discuss possible management options. He discussed that there aresituations in which fetoscopic laser photocoagulation of the placenta could be offered todichorionize the placenta with the intent of improving outcomes for bothtwins. However, he notes that in this setting, chances of this leading to a co-twin demise of twin 2 arerather high (60-70%). Heather desires optimal outcomes for both babies and declines [facility] referral.After discussion regarding chances of survival of [...] see the patient(reviewing medical records/tests), in direct ofir-gt-nixz contact with the patient during the visitcounseling [...] with intermittent reversed awave. Nicole Byrd MD [facility] ORDERABLES Edited Result - Final documented in [...] antepartum documented in this encounter Care Teams Cardiovascular Invasive Specialist Relationship Specialty Start Date End Date No Ref-Primary, Physician PCP - General 12/04/21 Flower Amato MD [address] [address] Assigned OBGYN Provider 11/22/24 documented as of this encounter
--- OUTSIDE RECORDS SUMMARY | 2024-12-07 21:40 | XMS_ITS | Encounter Summary ---
Author Organization [facility] Address [address] [place] [address]. 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 For a detailed report of the ultrasound examination, please see the ultrasound report which can be found under the imaging tab. If you have questions regarding today's evaluation or if we can be of further service, please contact the Maternal- Medicine Center. Estrella Esteban MD Maternal Medicine FICATION OPERATOR documented in this encounter Nursing Notes * Leonor Allen RN - 10/26/2024 11:30 AM CST Heather Chávez is a at 16w5d who presents to [facility] for a TTTS check for mono/di twins. Pt reports positive movement. Pt denies bldg/lof/change in discharge, contractions, headache, visionchanges, chest pain/SOB or edema. SBAR given to Dr. June Esteban, see note in Epic. Leonor Allen RN FICATION OPERATOR documented in this encounter Plan of Treatment Upcoming Encounters Date Type Department Care Team (Late st Contact Info) Description 12/10/2024 1:30 PM PURIFICATION OPERATOR Appointment [facility] Medicine [address] [phone] Jesus Harmon MD [address] [place] [address] 12/10/2024 2:00 PM PURIFICATION OPERATOR Office Visit [facility] M[facility] Medicine [address] [address] Jesus Harmon MD [address] [place], [place] [address] 12/10/2024 2:15 PM PURIFICATION OPERATOR Office Visit [facility] M[facility] Medicine [address] [place] [address] Jesus Harmon MD [address] [place] [address] 12/12/2024 8:45 AM PURIFICATION OPERATOR Appointment [facility] Maternal Medicine [facility] [address] [place] [address] Diane Lopez MD [address] [place] [address] [place] [address] 12/12/2024 9:15 AM PURIFICATION OPERATOR Office Visit [facility] [address] [facility] [address] [place] [address] Diane Lopez MD [address] [address] 12/14/2024 1:30 PM PURIFICATION OPERATOR Ancillary Procedure [facility] [address] [phone] Jesus Harmon MD [address] [place] [address] 12/14/2024 2:00 PM PURIFICATION OPERATOR Office Visit [facility] Medicine [address] [phone] Jesus Harmon MD [address] [place] [address] 12/17/2024 12:45 PM PURIFICATION OPERATOR Appointment [facility] [address] [place] [address] Jesus Harmon MD [address] [place] [address] 12/17/2024 1:15 PM PURIFICATION OPERATOR Office Visit [facility] [place] [address] [place] [address] Jesus Harmon MD [address] [place] [address] 12/17/2024 1:30 PM PURIFICATION OPERATOR Office Visit [facility] [place] [address] [place] [address] Jesus Harmon MD [address] [place] [address] 12/19/2024 9:30 AM PURIFICATION OPERATOR Appointment [facility] M[facility] Medicine [facility] [address] [place] [phone] Nicole Núñez MD [address] [place] [address] Flower Amato MD [address] [address] 12/19/2024 10:00 AM PURIFICATION OPERATOR Office Visit [facility] Medicine [facility] [address] [facility] [address] [place] [phone] Nicole Núñez MD [address] [place] [address] Flower Amato MD [address] [address] 12/21/2024 11:45 AM PURIFICATION OPERATOR Appointment [facility] Medicine [facility] [address] [place] [phone] Jesus Harmon MD [address] [place] [address] Karin Esteban MD [address] [address] 12/21/2024 12:15 PM PURIFICATION OPERATOR Office Visit [facility] M[facility] Medicine [facility] [address] [facility] [address] [place] [phone] Jesus Harmon MD [address] [place] [address] Karin Esteban MD [address] [address] 12/24/2024 11:00 AM PURIFICATION OPERATOR Appointment [facility] [place] [address] [place] [phone] Jesus Harmon MD [address] [place] [address] 12/24/2024 11:30 AM PURIFICATION OPERATOR Office Visit [facility] [place] [address] [place] [address] Jesus Harmon MD [address] [place] [address] 12/24/2024 11:45 AM PURIFICATION OPERATOR Office Visit [facility] [place] [address] [place] [address] Jesus Harmon MD [address] [place] [address] 12/26/2024 10:15 AM PURIFICATION OPERATOR Appointment [facility] Medicine [facility] [address] [facility] [address] [place] [phone] Jesus Harmon MD [address] [place] [address] 12/26/2024 10:45 AM PURIFICATION OPERATOR Office Visit [facility] [place] [address] [place] [phone] Jesus Harmon MD [address] [place] [address] 12/28/2024 10:15 AM PURIFICATION OPERATOR Appointment [facility] [place] [address] [place] [phone] Diane Lopez MD [address] [place] [address] [place] [address] 12/28/2024 10:45 AM PURIFICATION OPERATOR Office Visit [facility] [place] [address] [place] [phone] Diane Lopez MD [address] [place] [address] [place] [address] 01/11/2025 10:15 AM CDT Appointment [facility] [place] [address] [place] [phone] Diane Lopez MD [address] [place] [address] [place] [address] 01/11/2025 10:45 AM CDT Office Visit [facility] M[facility] [place] [address] [place] [phone] Diane Lopez MD [address] [address] [place] [address] documented as of this encounter Visit Diagnoses [...] antepartum documented in this encounter Care Teams Patron Attendant Relationship Specialty Start Date End Date No Ref-Primary, Physician PCP - General 12/04/21 documented as of this encounter
--- OUTSIDE RECORDS SUMMARY | 2024-12-07 21:40 | XMS_ITS | Encounter Summary ---
Author Organization [facility] Address [address] [place] [address] Care Team Providers Care Catalyst Concentration Operator Name Role Phone No Ref-Primary, Physician Primary Care Provider Flower Amato MD Unavailable [phone] Encounter Details Date Type Department Care Team (Late Contact Info) Description 12/04/[address] [facility] [place] [address] [place], [place] [phone] Joceline Bejarano RN Social History Tobacco Use [...] on file Legal Sex Female 11:44 PM SPEECH SCIENTIST Gender Identity Not on file Sexual Orientation Not on file documented as of this encounter Plan of Treatment Upcoming Encounters Date Type Department Care Team (Late Contact Info) Description 12/10/2024 1:30 PM SPEECH SCIENTIST Appointment [facility] [place] [address] [place] [phone] Jesus Harmon MD [address] [place] [phone] 12/10/2024 2:00 PM SPEECH SCIENTIST Office Visit [facility] [place] [address] [place] [address] Jesus Harmon MD [address] [place] [address] 12/10/2024 2:15 PM SPEECH SCIENTIST Office Visit [facility] [place] [address] [place] [address] Jesus Harmon MD [address] [place] [address] 12/12/2024 8:45 AM SPEECH SCIENTIST Appointment [facility] Maternal Medicine [facility] [address] [place] [phone] Diane Lopez MD [address] [place] [address] 12/12/2024 9:15 AM SPEECH SCIENTIST Office Visit [facility] Maternal Medicine [facility] [address] [place] [address] Diane Lopez MD [address] [facility] [address] [place] [address] 12/14/2024 1:30 PM SPEECH SCIENTIST Ancillary Procedure [facility] [address] [place] [phone] Jesus Harmon MD [address] [place] [address] 12/14/2024 2:00 PM SPEECH SCIENTIST Office Visit [facility] [address] [place] [phone] Jesus Harmon MD [address] [place] [address] 12/17/2024 12:45 PM SPEECH SCIENTIST Appointment [facility] [place] [address] [facility] [place] [address] Jesus Harmon MD [address] [place] [address] 12/17/2024 1:15 PM SPEECH SCIENTIST Office Visit [facility] Maternal Medicine [facility] [address] [place] [address] Jesus Harmon MD [address] [place] [address] 12/17/2024 1:30 PM SPEECH SCIENTIST Office Visit [facility] Maternal Medicine [facility] [address] [place] [address] Jesus Harmon MD [address] [place] [address] 12/19/2024 9:30 AM SPEECH SCIENTIST Appointment [facility] Maternal Medicine [facility] [address] [facility] [address] [place] [phone] Nicole Núñez MD 606 [facility] [place], [place] [address] Flower Amato MD [address] [facility] [address] [place], [place] [address] 12/19/2024 10:00 AM SPEECH SCIENTIST Office Visit [facility] Maternal Medicine [facility] [address] [facility] [address] [place] [phone] Nicole Núñez MD [address] [facility] [address] [place], [place] [address] Flower Amato MD [address] [address] 12/21/2024 11:45 AM SPEECH SCIENTIST Appointment [facility] Maternal Medicine [facility] [address] [facility] [address] [place] [phone] Jesus Harmon MD [address] [place] [address] Karin Esteban MD [address] [facility] [address] [address] 12/21/2024 12:15 PM SPEECH SCIENTIST Office Visit [facility] Maternal Medicine [facility] [address] [facility] [address] [place] [phone] Jesus Harmon MD [address] [place] [address] Karin Esteban MD [address] [facility] [address] [address] 12/24/2024 11:00 AM SPEECH SCIENTIST Appointment [facility] [place] [address] [place] [address] Jesus Harmon MD [address] [place] [address] 12/24/2024 11:30 AM SPEECH SCIENTIST Office Visit [facility] [place] [address] [facility] [place] [address] Jesus Harmon MD [address] [place] [address] 12/24/2024 11:45 AM SPEECH SCIENTIST Office Visit [facility] [place] [address] [place] [address] Jesus Harmon MD [address] [place] [address] 12/26/2024 10:15 AM SPEECH SCIENTIST Appointment [facility] [place] [address] [place] [phone] Jesus Harmon MD [address] [place] [address] 12/26/2024 10:45 AM SPEECH SCIENTIST Office Visit [facility] Maternal Medicine [place] [address] [place] [phone] Jesus Harmon MD [address] [place] [address] 12/28/2024 10:15 AM SPEECH SCIENTIST Appointment [facility] Maternal Medicine [place] [address] [place] [phone] Diane Lopez MD [address] [place] [address] 12/28/2024 10:45 AM SPEECH SCIENTIST Office Visit [facility] [place] [address] [place] [phone] Diane Lopez MD [address] [place] [address] 01/11/2025 10:15 AM CDT Appointment [facility] [place] [address] [place] [phone] Diane Lopez MD [address] [place], [place] [address] 01/11/2025 10:45 AM CDT Office Visit [facility] Maternal Medicine [facility] [address] [facility] [address] [place] [address] Diane Lopez MD [address] [place], [place] [address] documented as of this encounter Visit Diagnoses Not on filedocumented in this encounter Care Teams Catalyst Concentration Operator Relationship Specialty Start Date End Date No Ref-Primary, Physician PCP - General 12/04/21 Flower Amato MD [address] [place], [place] [address] Assigned OBGYN Provider 11/22/24 documented as of this encounter
--- OUTSIDE RECORDS SUMMARY | 2024-12-07 21:40 | XMS_ITS | Encounter Summary ---
Author Organization [facility] Address [address] [place] [address] Care Team Providers Care Salvage Worker Name Role Phone No Ref-Primary, Physician Primary Care Provider Flower Amato MD Unavailable [phone] Reason for Referral * Diagnostic Imaging Ultrasound (Routine) - Pending Review Specialty Diagnoses / Procedures Referred By Noa lilly Referred To Contact Radiology. 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 Intrauterine growth restriction affecting antepartum care of mother in first trimester, fetus 2 Procedures MFM Twins Comprehensive F/U Nicole Núñez MD [address] [place] [address] Phone: tel: fax: Referral ID Status Reason Start Date Expiration Date V isits Requested Visits Authorized [id number] Pending Review 11/22/2024 11/22/2025 1 1 Encounter Details Date Type Department Care Team (Latest Contact Info) Description 12/05/2024 11:20 AM KEG VARNISHER - 12/05/2024 11:59 PM KEG VARNISHER Hospital Encounter [facility] [place] [address] [place] [address] Karin Esteban MD [address] [place], [place] [address] 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; [...] on file Legal Sex Female 11:44 PM KEG VARNISHER Gender Identity Not on file Sexual Orientation [...] st Contact Info) Description 12/10/2024 1:30 PM KEG VARNISHER Appointment [facility] Maternal Medicine [facility] [address] [place] [address] Jesus Harmon MD [address] [place] [address] 12/10/2024 2:00 PM KEG VARNISHER Office Visit [facility] [place] [address] [place] [address] Jesus Harmon MD [address] [place] [address] 12/10/2024 2:15 PM KEG VARNISHER Office Visit [facility] [place] [address] [place] [address] Jesus Hamron MD [address] [place] [address] 12/12/2024 8:45 AM KEG VARNISHER Appointment [facility] Maternal Medicine [facility] [address] [place] [phone] Diane Lopez MD [address] [place] [address] 12/12/2024 9:15 AM KEG VARNISHER Office Visit [facility] Maternal Medicine [facility] [address] [place] [address] Diane Lopez MD [address] [place] [address] 12/14/2024 1:30 PM KEG VARNISHER Ancillary Procedure [facility] Medicine [address] [place] [address] Jesus Harmon MD [address] [place] [address] 12/14/2024 2:00 PM KEG VARNISHER Office Visit [facility]aternal [facility] [address] [place] [address] Jesus Harmon MD [address] [place] [address] 12/17/2024 12:45 PM KEG VARNISHER Appointment [facility] [place] [address] [place] [phone] Jesus Harmon MD [address] [place] [address] 12/17/2024 1:15 PM KEG VARNISHER Office Visit [facility] [place] [address] [place] [address] Jesus Harmon MD [address] [place] [address] 12/17/2024 1:30 PM KEG VARNISHER Office Visit [facility] Maternal Medicine [facility] [address] [place] [address] Jesus Harmon MD [address] [place] [address] 12/19/2024 9:30 AM KEG VARNISHER Appointment [facility] Maternal Medicine [facility] [address] [facility] [address] [place] [address] Nicole Núñez MD [address] [place] [address] Flower Amato MD [address] [address] 12/19/2024 10:00 AM KEG VARNISHER Office Visit [facility] Maternal Medicine [facility] [address] [facility] [address] [place] [address] Nicole Núñez MD [address] [facility] [place] [address] Flower Amato MD [address] [facility] [address] [address] 12/21/2024 11:45 AM KEG VARNISHER Appointment [facility] Maternal Medicine [place] [address] [facility] [address] [place] [address] Jesus Harmon MD [address] [place] [address] Karin Esteban MD [address] [facility] [address] [address] 12/21/2024 12:15 PM KEG VARNISHER Office Visit [facility] Maternal Medicine [place] [address] [facility] [address] [place] [address] Jesus Harmon MD [address] [place], [place] [address] Karin Esteban MD [address] [facility] [address] [address] 12/24/2024 11:00 AM KEG VARNISHER Appointment [facility] [place] [address] [facility] [place] [address] Jesus Harmon MD [address] [place], [place] [address] 12/24/2024 11:30 AM KEG VARNISHER Office Visit [facility] [place] [address] [place] [address] Jesus Harmon MD [address] [place] [address] 12/24/2024 11:45 AM KEG VARNISHER Office Visit [facility] Maternal Medicine [facility] [address] [place] [address] Jesus Harmon MD [address] [place] [address] 12/26/2024 10:15 AM KEG VARNISHER Appointment [facility] Maternal Medicine [place] [address] [place] [phone] Jesus Harmon MD [address] [place] [address] 12/26/2024 10:45 AM KEG VARNISHER Office Visit [facility] Maternal Medicine [place] [address] [place] [phone] Jesus Harmon MD [address] [place] [address] 12/28/2024 10:15 AM KEG VARNISHER Appointment [facility] Maternal Medicine [place] [address] [place] [phone] Diane Lopez MD [address] [address] 12/28/2024 10:45 AM KEG VARNISHER Office Visit [facility] Maternal Medicine [place] [address] [place] [phone] Diane Lopez MD [address] [address] 01/11/2025 10:15 AM CDT Appointment [facility] Maternal Medicine [place] [address] [place] [phone] Diane Lopez MD [address] [place], [place] [address] 01/11/2025 10:45 AM CDT Office Visit [facility] Maternal Medicine [facility] [address] [place] [phone] Diane Lopez MD [address] [place], [place] [address] documented as of this encounter Procedures Procedure Name Priority Date/Time Associated Diagnosis Comments MFM TWINS US COMPREHENSIVE F/U Routine 12/05/2024 12:28 PM KEG VARNISHER 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 Narrative 12/05/2024 1:37 PM KEG VARNISHER Surveillance US ----- Pat. Name: HEATHER CHÁVEZ Study Date: 12/05/2024 11:32am Pat. NO: [id number] Referring MD: PAMELA CUELLAR Site: Keyboard Instrument Repairer: Piper Huynh RDMS : 1995 Age: 29 ----- INDICATION ----- Monochorionic-Diamniotic Twin Gestation Selective Growth Restriction (FGR) fetus 2 Circumvallate placenta METHOD ----- Transabdominal ultrasound examination. View: Sufficient ----- Twin . Number of fetuses: 2. Monochorionic-diamniotic Membrane Description: thin dividing membrane visualized between fetuses 1 and 2 DATING ----- Date Details Gest. age TMOMIE LMP 07/01/2024 21 w + 3 d [...] the patient (reviewing medical records/tests), in direct ibti-qh-qcww contact with the patient during the visit counseling and discussing the plan of care and documenting the visit in the electronic medical record. Procedure Note Jesus Harmon MD - 12/05/2024 [facility] US ----- Pat. Name: HEATHER CHÁVEZ Study Date: 12/05/2024 11:32am Pat. NO: [id number] Referring MD: PAMELA CUELLAR Site: Keyboard Instrument Repairer: Piper Huynh RDMS : 1995 Age: 29 [...] see the patient(reviewing medical records/tests), in direct bmbl-ff-[id number] contact with the patient during the visitcounseling [...] in the a-wave today. Nicole Núñez MD [facility] ORDERABLES Edited [...] antepartum documented in this encounter Care Teams Salvage Worker Relationship Specialty Start Date End Date No Ref-Primary, Physician PCP - General 12/04/21 Flower Amato MD [address] [place] [address] Assigned OBGYN Provider 11/22/24 documented as of this encounter
--- OUTSIDE RECORDS SUMMARY | 2024-12-07 21:40 | XMS_ITS | Encounter Summary ---
Author Organization [place] Address [address] [place] [address] Care Team Providers Care Locker Operator Name Role Phone No Ref-Primary, Physician Primary Care Provider Reason for Referral * Diagnostic Imaging Ultrasound (Routine) - Pending Review Specialty Diagnoses / Procedures Referred By Noa lilly Referred To Contact Radiology. Diagnoses Monochorionic diamniotic twin gestation Procedures MFM Twins US Comprehensive F/U Diane Lopez MD [address] [facility] [address] [place] [address] Phone: tel: fax: Referral ID Status Reason Start Date Expiration Date V isits Requested Visits Authorized [id number] Pending Review 10/19/2024 10/19/2025 1 1 OLOGY FACULTY MEMBER Reason for Visit * Diagnostic Imaging Ultrasound (Routine) - Pending Review Specialty Diagnoses / Procedures Referred By Noa lilly Referred To Contact Radiology. Diagnoses Monochorionic diamniotic twin gestation Procedures MFM Twins US lAivia F/U Diane Lopez MD [address] [place] [address] Phone: tel: fax: Referral ID Status Reason Start Date Expiration Date V isits Requested Visits Authorized [id number] Pending Review 10/19/2024 10/19/2025 1 1 Encounter Details Date Type Department Care Team (Latest Contact Info) Description 11/02/2024 1:22 PM SOCIOLOGY FACULTY MEMBER - 11/02/2024 11:59 PM SOCIOLOGY FACULTY MEMBER Hospital Encounter [facility] M[facility] Medicine [facility] [place] [address] [place] [address] Diane Lopez MD [address] [place], [place] [phone] Flor Dickson MD [address] [place] [address] Monochorionic diamniotic twin gestation in [...] on file Legal Sex Female 11:44 PM SOCIOLOGY FACULTY MEMBER Gender Identity Not on file Sexual Orientation [...] st Contact Info) Description 12/10/2024 1:30 PM SOCIOLOGY FACULTY MEMBER Appointment [facility] [place] [address] [place] [phone] Jesus Harmon MD [address] [place] [address] 12/10/2024 2:00 PM SOCIOLOGY FACULTY MEMBER Office Visit [facility] Maternal Medicine [facility] [address] [place] [address] Jesus Harmon MD [address] [place] [address] 12/10/2024 2:15 PM SOCIOLOGY FACULTY MEMBER Office Visit [facility] [place] [address] [place] [address] Jesus Harmon MD [address] [place] [address] 12/12/2024 8:45 AM SOCIOLOGY FACULTY MEMBER Appointment [facility] Maternal Medicine [facility] [address] [place] [phone] Diane Lopez MD [address] [place] [address] 12/12/2024 9:15 AM SOCIOLOGY FACULTY MEMBER Office Visit [facility] Maternal Medicine [facility] [address] [place] [phone] Diane Lopez MD [address] [address] 12/14/2024 1:30 PM SOCIOLOGY FACULTY MEMBER Ancillary Procedure [facility] Medicine [address] [phone] Jesus Harmon MD [address] [place] [address] 12/14/2024 2:00 PM SOCIOLOGY FACULTY MEMBER Office Visit [facility] Maternal Medicine [address] [phone] Jesus Harmon MD [address] [place] [address] 12/17/2024 12:45 PM SOCIOLOGY FACULTY MEMBER Appointment [facility] Maternal Medicine [address] [place] [address] Jesus Harmon MD [address] [place] [address] 12/17/2024 1:15 PM SOCIOLOGY FACULTY MEMBER Office Visit [facility] Maternal Medicine [facility] [address] [address] Jesus Harmon MD [address] [place] [address] 12/17/2024 1:30 PM SOCIOLOGY FACULTY MEMBER Office Visit [facility] Maternal Medicine [facility] [address] [address] Jesus Harmon MD [address] [place] [address] 12/19/2024 9:30 AM SOCIOLOGY FACULTY MEMBER Appointment [facility] Maternal Medicine [facility] [address] [place] [address] Nicole Núñez MD [address] [place] [address] Flower Amato MD [address] [address] 12/19/2024 10:00 AM SOCIOLOGY FACULTY MEMBER Office Visit [facility] Maternal Medicine [place] [address] [place] [address] Nicole Núñez MD [address] [place] [address] Flower Amato MD [address] [address] 12/21/2024 11:45 AM SOCIOLOGY FACULTY MEMBER Appointment [facility] Maternal Medicine [place] [address] [place] [phone] Jesus Harmon MD [address] [place] [address] Karin Esteban MD [address] [address] 12/21/2024 12:15 PM SOCIOLOGY FACULTY MEMBER Office Visit [facility] Maternal Medicine [place] [address] [place] [address] Jesus Harmon MD [address] [place] [address] Karin Esteban MD [address] [address] 12/24/2024 11:00 AM SOCIOLOGY FACULTY MEMBER Appointment [facility] M[facility] [place] [address] [place] [address] Jesus Harmon MD [address] [place] [address] 12/24/2024 11:30 AM SOCIOLOGY FACULTY MEMBER Office Visit [facility] [place] [address] [place] [address] Jesus Harmon MD [address] [place], [place] [address] 12/24/2024 11:45 AM SOCIOLOGY FACULTY MEMBER Office Visit [facility] [place] [address] [place] [address] Jesus Harmon MD [address] [place], [place] [address] 12/26/2024 10:15 AM SOCIOLOGY FACULTY MEMBER Appointment [facility] Maternal Medicine [place] [address] [place] [phone] Jesus Harmon MD [address] [place] [address] 12/26/2024 10:45 AM SOCIOLOGY FACULTY MEMBER Office Visit [facility] Maternal Medicine [facility] [address] [place] [phone] Jesus Harmon MD [address] [place], [place] [address] 12/28/2024 10:15 AM SOCIOLOGY FACULTY MEMBER Appointment [facility] Maternal Medicine [facility] [address] [place] [phone] Diane Lopez MD [address] [address] 12/28/2024 10:45 AM SOCIOLOGY FACULTY MEMBER Office Visit [facility] Maternal Medicine [facility] [address] [place] [address] Diane Lopez MD [address] [place] [address] 01/11/2025 10:15 AM CDT Appointment [facility] Maternal Medicine [place] [address] [place] [address] Diane Lopez MD [address] [place] [address] 01/11/2025 10:45 AM CDT Office Visit [facility] Maternal Medicine [place] [address] [place] [phone] Diane Lopez MD [address] [place] [address] documented as of this encounter Procedures Procedure Name Priority Date/Time Associated Diagnosis Comments MFM TWINS US COMPREHENSIVE F/U Routine 11/02/2024 2:26 PM SOCIOLOGY FACULTY MEMBER 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 Narrative 11/03/2024 10:38 AM [facility] Surveillance US ----- Pat. Name: HEATHER CHÁVEZ Study Date: 11/02/2024 1:30pm Pat. NO: [id number] Referring MD: PAMELA CUELLAR Site: Wardrobe Image Consultant: Pennie [place] RDMS : 1995 Age: 29 [...] the patient (reviewing medical records/tests), in direct cpzr-lj-vvuv contact with the patient during the visit counseling and discussing the plan of care and documenting the visit in the electronic medical record. Procedure Note Flor Dickson MD - 11/03/2024 [place] ----- Pat. Name: HEATHER CHÁVEZ Study Date: 11/02/2024 1:30pm Pat. NO: [id number] Referring MD: PAMELA CUELLAR Site: Wardrobe Image Consultant: Pennie [place] RDMS : 1995 Age: 29 [...] see the patient(reviewing medical records/tests), in direct fper-lv-ppud contact with the patient during the visitcounseling [...] anemia polycythemia syndrome. us Diane Lopez MD [facility] ORDERABLES Edited Result [...] antepartum documented in this encounter Care Teams Locker Operator Relationship Specialty Start Date End Date No Ref-Primary, Physician PCP - General 12/04/21 documented as of this encounter
--- OUTSIDE RECORDS SUMMARY | 2024-12-07 21:40 | XMS_ITS | Encounter Summary ---
Author Organization [place] Address [address] [place] [address] Care Team Providers Care Furnace Loader Name Role Phone No Ref-Primary, Physician Primary Care Provider Encounter Details Date Type Department Care Team (Late st Contact Info) Description 10/09/2024 Medical Correspondence [facility] Health Information Management [address] [facility] [address] [place] [address] Scan, Non-Provider Social History Tobacco Use Types [...] on file Legal Sex Female 11:44 PM DATA ANALYSIS MANAGER Gender Identity Not on file Sexual Orientation Not on file documented as of this encounter Plan of Treatment Upcoming Encounters Date Type Department Care Team (Late st Contact Info) Description 12/10/2024 1:30 PM DATA ANALYSIS MANAGER Appointment [facility] M[facility] [place] [address] [place] [phone] Jesus Harmon MD [address] [place] [address] 12/10/2024 2:00 PM DATA ANALYSIS MANAGER Office Visit [facility] [place] [address] [place], [place] [address] Jesus Harmon MD [address] [place] [address] 12/10/2024 2:15 PM DATA ANALYSIS MANAGER Office Visit [facility] Maternal Medicine [facility] [address] [place] [address] Jesus Harmon MD [address] [place] [address] 12/12/2024 8:45 AM DATA ANALYSIS MANAGER Appointment [facility] Maternal Medicine [facility] [address] [place] [phone] Diane Lopez MD [address] [facility] [address] [place] [address] 12/12/2024 9:15 AM DATA ANALYSIS MANAGER Office Visit [facility] Maternal Medicine [facility] [address] [place] [address] Diane Lopez MD [address] [facility] [address] [address] 12/14/2024 1:30 PM DATA ANALYSIS MANAGER Ancillary Procedure [facility] Maternal Medicine [address] [phone] Jesus Harmon MD [address] [place] [address] 12/14/2024 2:00 PM DATA ANALYSIS MANAGER Office Visit [facility] Maternal Medicine [address] [address] Jesus Harmon MD [address] [place] [address] 12/17/2024 12:45 PM DATA ANALYSIS MANAGER Appointment [facility] [place] [address] [place] [address] Jesus Harmon MD [address] [place] [address] 12/17/2024 1:15 PM DATA ANALYSIS MANAGER Office Visit [facility] M[facility] Medicine [facility] [place] [address] [place] [address] Jesus Harmon MD [address] [place] [address] 12/17/2024 1:30 PM DATA ANALYSIS MANAGER Office Visit [facility] Maternal Medicine [facility] [address] [place] [address] Jesus Harmon MD [address] [place] [address] 12/19/2024 9:30 AM DATA ANALYSIS MANAGER Appointment [facility] Maternal Medicine [facility] [address] [place] [phone] Nicole Núñez MD [address] [place], [place] [address] Flower Amato MD [address] [facility] [address] [place] [address] 12/19/2024 10:00 AM DATA ANALYSIS MANAGER Office Visit [facility] Maternal Medicine [facility] [address] [place] [phone] Nicole Núñez MD [address] [address] Flower Amato MD [address] [place] [address] 12/21/2024 11:45 AM DATA ANALYSIS MANAGER Appointment [facility] Maternal Medicine [facility] [address] [facility] [address] [place] [address] Jesus Harmon MD [address] [place] [address] Karin Esteban MD [address] [place] [address] 12/21/2024 12:15 PM DATA ANALYSIS MANAGER Office Visit [facility] Maternal Medicine [facility] [address] [facility] [address] [place] [address] Jesus Harmon MD [address] [place] [address] Karin Esetban MD [address] [place] [address] 12/24/2024 11:00 AM DATA ANALYSIS MANAGER Appointment [facility] [place] [address] [place] [phone] Jesus Harmon MD [address] [place] [address] 12/24/2024 11:30 AM DATA ANALYSIS MANAGER Office Visit [facility] [place] [address] [place] [address] Jesus Harmon MD [address] [place] [address] 12/24/2024 11:45 AM DATA ANALYSIS MANAGER Office Visit [facility] [place] [address] [facility] [place] [address] Jesus Harmon MD [address] [place] [address] 12/26/2024 10:15 AM DATA ANALYSIS MANAGER Appointment [facility] Maternal Medicine [place] [address] [place] [phone] Jesus Harmon MD [address] [place] [address] 12/26/2024 10:45 AM DATA ANALYSIS MANAGER Office Visit [facility] Maternal Medicine [place] [address] [place] [address] Jesus Harmon MD [address] [place] [address] 12/28/2024 10:15 AM DATA ANALYSIS MANAGER Appointment [facility] Maternal Medicine [place] [address] [place] [phone] Diane Lopez MD [address] [place] [address] 12/28/2024 10:45 AM DATA ANALYSIS MANAGER Office Visit [facility] Maternal Medicine [place] [address] [place] [phone] Diane Lopez MD [address] [place] [address] 01/11/2025 10:15 AM CDT Appointment [facility] Maternal Medicine [place] [address] [place] [address] Diane Lopez MD [address] [place] [address] 01/11/2025 10:45 AM CDT Office Visit [facility] Maternal Medicine [place] [address] [facility] [address] [place] [address] Diane Lopez MD [address] [place] [address] documented as of this encounter Visit Diagnoses Not on filedocumented in this encounter Care Teams Furnace Loader Relationship Specialty Start Date End Date No Ref-Primary, Physician PCP - General 12/04/21 documented as of this encounter
--- OUTSIDE RECORDS SUMMARY | 2024-12-07 21:40 | XMS_ITS | Encounter Summary ---
Author Organization [place] Address [address] [place] [address] Care Team Providers Care Electric Repair Supervisor Name Role Phone No Ref-Primary, Physician Primary Care Provider Flower Amato MD Unavailable [phone] Reason for Visit * Reason Onset Date Comments Orders 12/02/2024 Encounter Details Date Type Department Care Team (Late st Contact Info) Description 12/02/2024 Telephone [facility] Nurse Advisors [address] [place] [address] Beverly Gagnon, RN Orders Social [...] on file Legal Sex Female 11:44 PM ADMISSIONS ASSISTANT Gender Identity Not on file Sexual [...] any order or pharmacy changes Beverly Gagnon, germination testing manager Nurse Advisor on 12/02/2024 at 10:09 AM SSIONS ASSISTANT documented in this encounter Plan of Treatment Upcoming Encounters Date Type Department Care Team (Late st Contact Info) Description 12/10/2024 1:30 PM ADMISSIONS ASSISTANT Appointment [facility] M[facility] Medicine [facility] [place] [address] [place] [phone] Jesus Harmon MD [address] [place] [address] 12/10/2024 2:00 PM ADMISSIONS ASSISTANT Office Visit [facility] Maternal Medicine [facility] [address] [place] [address] Jesus Harmon MD [address] [place] [address] 12/10/2024 2:15 PM ADMISSIONS ASSISTANT Office Visit [facility] [place] [address] [place] [address] Jesus Harmon MD [address] [place] [address] 12/12/2024 8:45 AM ADMISSIONS ASSISTANT Appointment [facility] Maternal Medicine [facility] [address] [place] [phone] Diane Lopez MD [address] [place] [address] 12/12/2024 9:15 AM ADMISSIONS ASSISTANT Office Visit [facility] Maternal Medicine [facility] [address] [place] [phone] Diane Lopez MD [address] [address] 12/14/2024 1:30 PM ADMISSIONS ASSISTANT Ancillary Procedure [facility] Maternal Medicine [address] [address] Jesus Harmon MD [address] [place] [address] 12/14/2024 2:00 PM ADMISSIONS ASSISTANT Office Visit [facility] Maternal Medicine [address] [address] Jesus Harmon MD [address] [place] [address] 12/17/2024 12:45 PM ADMISSIONS ASSISTANT Appointment [facility] Maternal Medicine Center [address] [address] Jesus Harmon MD [address] [place] [address] 12/17/2024 1:15 PM ADMISSIONS ASSISTANT Office Visit [facility] Maternal Medicine [facility] [address] [place] [address] Jesus Harmon MD [address] [place] [address] 12/17/2024 1:30 PM ADMISSIONS ASSISTANT Office Visit [facility] [place] [address] [place], [place] [address] [place] [address] Jesus Harmon MD [address] [place] [address] 12/19/2024 9:30 AM ADMISSIONS ASSISTANT Appointment [facility] Maternal Medicine Center [place] [address] [place] [address] Nicole Núñez MD [address] [place], [place] [phone] Flower Amato MD [address] [address] 12/19/2024 10:00 AM ADMISSIONS ASSISTANT Office Visit [facility] Maternal Medicine Center [place] [address] [place] [address] Nicole Núñez MD [address] [place] [address] Flower Amato MD [address] [address] 12/21/2024 11:45 AM ADMISSIONS ASSISTANT Appointment [facility] Maternal Medicine [place] [address] [place] [phone] Jesus Harmon MD [address] [place], [place] [address] Karin Esteban MD [address] [address] 12/21/2024 12:15 PM ADMISSIONS ASSISTANT Office Visit [facility] Maternal Medicine [place] [address] [place] [phone] Jesus Harmon MD [address] [place], [place] [address] Karin Esteban MD [address] [address] 12/24/2024 11:00 AM ADMISSIONS ASSISTANT Appointment [facility] Maternal Medicine [facility] [address] [facility] [place] [place] [address] Jesus Harmon MD [address] [place] [address] 12/24/2024 11:30 AM ADMISSIONS ASSISTANT Office Visit [facility] M[facility] Medicine [facility] [place] [address] [facility] [place] [address] Jesus Harmon MD [address] [place] [address] 12/24/2024 11:45 AM ADMISSIONS ASSISTANT Office Visit [facility] Maternal Medicine [facility] [address] [facility] [place] [place] [address] Jesus Harmon MD [address] [place] [address] 12/26/2024 10:15 AM ADMISSIONS ASSISTANT Appointment [facility] Maternal Medicine [facility] [address] [place] [phone] Jesus Harmon MD [address] [place] [address] 12/26/2024 10:45 AM ADMISSIONS ASSISTANT Office Visit [facility] Maternal Medicine [facility] [address] [place] [address] Jesus Harmon MD [address] [place] [address] 12/28/2024 10:15 AM ADMISSIONS ASSISTANT Appointment [facility] Maternal Medicine [facility] [address] [place] [phone] Diane Lopez MD [address] [place] [address] 12/28/2024 10:45 AM ADMISSIONS ASSISTANT Office Visit [facility] Maternal Medicine [facility] [address] [place] [address] Diane Lopez MD [address] [place] [address] 01/11/2025 10:15 AM CDT Appointment [facility] [address] [place] [phone] Diane Lopez MD [address] [place] [address] 01/11/2025 10:45 AM CDT Office Visit [facility] Maternal Medicine [facility] [address] [place] [address] Diane Lopez MD [address] [place] [address] documented as of this encounter Visit Diagnoses Not on filedocumented in this encounter Care Teams Electric Repair Supervisor Relationship Specialty Start Date End Date No Ref-Primary, Physician PCP - General 12/04/21 Flower Amato MD [address] [place] [address] Assigned OBGYN Provider 11/22/24 documented as of this encounter
--- OUTSIDE RECORDS SUMMARY | 2024-12-07 21:40 | XMS_ITS | Clinical Summary ---
Author Organization [facility] Address [address] [place] [address] Care Team Providers Care Yarrow Gatherer Name Role Phone Arslan Mckoy MD Primary Care Provider Ladonna calderon Source Comments You are receiving this document as you are listed as the primary care provider,follow-up provider, or the patient has been referred to you for consultation.This is in compliance with the Medicare and[facility] EHR Incentive Program,which states Providers who transition their patient to another setting of careor provider of care or refers their patient to another provider of care shouldprovide summary care record for each transition of care or referral. [facility] Allergies No known active allergies Medications Medication Sig Dispensed Refills Start Date End Date Status Iqabjtid-KcTyf-RM-DHA w/o A ( + DHA OR) Active [...] Comments Blood Pressure 117/62 10/05/2018 10:40 AM DIRECTOR OF BROADCAST Pulse 76 10/05/2018 10:40 AM DIRECTOR OF BROADCAST Temperature - - Respiratory Rate - - Oxygen Saturation - - Inhaled Oxygen Concentration - - Weight 73.5 kg (162 lb) 10/05/2018 10:40 AM DIRECTOR OF BROADCAST Height 166.4 cm (5' 5.5) 10/05/2018 10:40 AM CS T Body Mass Index 26.55 10/05/2018 10:40 AM DIRECTOR OF BROADCAST Plan of Treatment Health Maintenance Due Date [...] AND HIV-1/HIV-2 ANTIBODIES Routine 09/07/2018 12:05 PM DIRECTOR OF BROADCAST Screening examination for venereal disease CHLAMYDIA & GC, URINE (14 YEARS AND OLDER) Routine 09/07/2018 11:59 AM DIRECTOR OF BROADCAST Screening examination for venereal disease from Last 3 Months or Most Recently Relevant to Health Maintenance Results * LAB HIV-1 p24 AND HIV-1/HIV-2 ANTIBODIES (09/07/2018 12:05 PM DIRECTOR OF BROADCAST) HIV-1 p24 Ag and HIV-1/HIV-2 Ab Nonreactive Nonreactive PN SOFT 09/07/2018 12:0 5 PM DIRECTOR OF BROADCAST 09/07/2018 12:16 PM DIRECTOR OF BROADCAST Narrative PN SOFT - 09/07/2018 1:26 PM DIRECTOR OF BROADCAST Performed at [address] [address] CLIA number [id number] Angela Lyons APRN, CNM LAB_1 Performing Organization Address [facility] Co de Phone Number PN [employer] [address] [place] [phone] * CHLAMYDIA & GC, URINE (09/07/2018 11:59 AM DIRECTOR OF BROADCAST) Pathologist [facility] Urine Chlamydia STD Negative Negative PN SOFT Comment: Test Performed by Information Clerk Cashier Mediated Amplification Results obtained from this source are not FDA approved. CLIA Number [id number] Urine N. gonnorrhoeae STD Negative Negative PN SOFT Comment: Test Performed by Information Clerk Cashier Mediated Amplification Results obtained from this source are not FDA approved. Performed at [facility], [address] [place] [address] CLIA Number [id number] 09/07/2018 11:5 9 AM DIRECTOR OF BROADCAST 09/07/2018 12:17 PM DIRECTOR OF BROADCAST Angela Lyons APRN, CNM LAB_1 Performing Organization Address City/[facility]/ZIP Co de Phone Number [employer] [address] [place] [address] from Last 3 Months or Most Recently Relevant to Health Maintenance Care Teams Yarrow Gatherer Relationship Specialty Start Date End Date Arslan Mckoy MD PCP - General Family Practice 09/09/17
--- OUTSIDE RECORDS SUMMARY | 2024-12-07 21:40 | XMS_ITS | Encounter Summary ---
Author Organization [place] Address [address] [place] [address] Care Team Providers Care Cake Icer Name Role Phone No Ref-Primary, Physician Primary [...] file Legal Sex Female 11:44 PM QUALITY ASSURANCE TEST PROGRAM MANAGER Gender Identity Not on file Sexual Orientation Not on file documented as of this encounter Plan of Treatment Upcoming Encounters Date Type Department Care Team (Late st Contact Info) Description 12/10/2024 1:30 PM QUALITY ASSURANCE TEST PROGRAM MANAGER Appointment [facility] [place] [address] [place] [phone] Jesus Harmon MD [address] [place] [phone] 12/10/2024 2:00 PM QUALITY ASSURANCE TEST PROGRAM MANAGER Office Visit [facility] [place] [address] [place], [place] [address] Jesus Harmon MD [address] [place] [address] 12/10/2024 2:15 PM QUALITY ASSURANCE TEST PROGRAM MANAGER Office Visit [facility] Maternal Medicine [facility] [address] [place] [address] Jesus Harmon MD [address] [place] [address] 12/12/2024 8:45 AM QUALITY ASSURANCE TEST PROGRAM MANAGER Appointment [facility] Maternal Medicine [facility] [address] [place] [phone] Diane Lopez MD [address] [place] [address] 12/12/2024 9:15 AM QUALITY ASSURANCE TEST PROGRAM MANAGER Office Visit [facility] Maternal Medicine [facility] [address] [place] [address] Diane Lopez MD [address] [place] [address] 12/14/2024 1:30 PM QUALITY ASSURANCE TEST PROGRAM MANAGER Ancillary Procedure [facility] Maternal Medicine [address] [phone] Jesus Harmon MD [address] [place] [address] 12/14/2024 2:00 PM QUALITY ASSURANCE TEST PROGRAM MANAGER Office Visit [facility] Maternal Medicine [address] [phone] Jesus Harmon MD [address] [place] [address] 12/17/2024 12:45 PM QUALITY ASSURANCE TEST PROGRAM MANAGER Appointment [facility] [place] [address] [place] [address] Jesus Harmon MD [address] [place] [address] 12/17/2024 1:15 PM QUALITY ASSURANCE TEST PROGRAM MANAGER Office Visit [facility] [place] [address] [place] [address] Jesus Harmon MD [address] [place] [address] 12/17/2024 1:30 PM QUALITY ASSURANCE TEST PROGRAM MANAGER Office Visit [facility] [address] [place] [address] Jesus Harmon MD [address] [place] [address] 12/19/2024 9:30 AM QUALITY ASSURANCE TEST PROGRAM MANAGER Appointment [facility] [address] [place] [phone] Nicole Núñez MD [address] [place], [place] [address] Flower Amato MD [address] [facility] [address] [place], [place] [address] 12/19/2024 10:00 AM QUALITY ASSURANCE TEST PROGRAM MANAGER Office Visit [facility] M[facility] [address] [place] [phone] Nicole Núñez MD [address] [place], [place] [address] Flower Amato MD [address] [place] [address] 12/21/2024 11:45 AM QUALITY ASSURANCE TEST PROGRAM MANAGER Appointment [facility] [address] [facility] [address] [place] [address] Jesus Harmon MD [address] [place] [address] Karin Esteban MD [address] [place] [address] 12/21/2024 12:15 PM QUALITY ASSURANCE TEST PROGRAM MANAGER Office Visit [facility] Maternal Medicine [facility] [address] [facility] [address] [place] [address] Jesus Harmon MD [address] [place] [address] Karin Esteban MD [address] [place] [address] 12/24/2024 11:00 AM QUALITY ASSURANCE TEST PROGRAM MANAGER Appointment [facility] [place] [address] [place] [phone] Jesus Harmon MD [address] [place] [address] 12/24/2024 11:30 AM QUALITY ASSURANCE TEST PROGRAM MANAGER Office Visit [facility] [place] [address] [place] [address] Jesus Harmon MD [address] [place] [address] 12/24/2024 11:45 AM QUALITY ASSURANCE TEST PROGRAM MANAGER Office Visit [facility] [place] [address] [place] [address] Jesus Harmon MD [address] [place] [address] 12/26/2024 10:15 AM QUALITY ASSURANCE TEST PROGRAM MANAGER Appointment [facility] [place] [address] [place] [phone] Jesus Harmon MD [address] [place] [address] 12/26/2024 10:45 AM QUALITY ASSURANCE TEST PROGRAM MANAGER Office Visit [facility] [place] [address] [facility] [address] [place] [phone] Jesus Harmon MD [address] [place] [address] 12/28/2024 10:15 AM QUALITY ASSURANCE TEST PROGRAM MANAGER Appointment [facility] [place] [address] [facility] [address] [place] [phone] Diane Lopez MD [address] [place] [address] 12/28/2024 10:45 AM QUALITY ASSURANCE TEST PROGRAM MANAGER Office Visit [facility] Maternal Medicine [place] [address] [facility] [address] [place] [phone] Diane Lopez MD [address] [place] [address] 01/11/2025 10:15 AM CDT Appointment [facility] Maternal Medicine [place] [address] [place] [phone] Diane Lopez MD [address] [place] [address] 01/11/2025 10:45 AM CDT Office Visit [facility] Maternal Medicine [place] [address] [address] [facility] [address] [place] [phone] Diane Lopez MD [address] [place] [address] documented as of this encounter Visit Diagnoses Not on filedocumented in this encounter Care Teams Cake Icer Relationship Specialty Start Date End Date No Ref-Primary, Physician PCP - General 12/04/21 documented as of this encounter
--- OUTSIDE RECORDS SUMMARY | 2024-12-07 21:40 | XMS_ITS | Encounter Summary ---
Author Organization [place] Address [address] [facility] [place] [address] Care Team Providers Care Cut Out Operator Name Role Phone No Ref-Primary, Physician Primary Care Provider Flower Amato MD Unavailable [phone] Reason for Referral * Consultation (Routine: Next available opening) - Pending Review Specialty Diagnoses / Procedures Referred By Noa t Referred To Contact Diagnoses Monochorionic diamniotic twin , antepartum Flor Dickson MD [address] [place] [address] Phone: tel: fax: Referral ID Status Reason Start Date Expiration Date V isits Requested Visits Authorized [id number] Pending Review 12/04/2024 12/04/2025 1 1 Question Answer Office Visit Type: NICU Consult Comments 1230 2/5 KNOCKER Reason for Visit * Reason Onset Date Comments Appointment 12/04/2024 Encounter Details Date Type Department Care Team (Late st Contact Info) Description 12/04/2024 Telephone [facility] Maternal Medicine [facility] [address] [place] [address] Joceline Bejarano, RN Appointment Social [...] on file Legal Sex Female 11:44 PM CAKE KNOCKER Gender Identity Not on file Sexual Orientation Not on file documented as of this encounter Miscellaneous Notes * Telephone Encounter - Joceline Bejarano RN - 12/04/2024 1:57 PM CAKE KNOCKER [employer] Office Instructor spoke with patient regarding follow up with [facility] on 12/05. Patient agreed to move appt from 0800am to 1145am with a NICU consult at 1230. Joceline Bejarano RN KNOCKER documented in this encounter Plan of Treatment Upcoming Encounters Date Type Department Care Team (Late st Contact Info) Description 12/10/2024 1:30 PM CAKE KNOCKER Appointment [facility] M[facility] Center [address] [address] Jesus Harmon MD [address] [place] [address] 12/10/2024 2:00 PM CAKE KNOCKER Office Visit [facility] Maternal Medicine [address] [address] Jesus Harmon MD [address] [place] [address] 12/10/2024 2:15 PM CAKE KNOCKER Office Visit [facility] Center [address] [place] [address] Jesus Harmon MD [address] [place] [address] 12/12/2024 8:45 AM CAKE KNOCKER Appointment [facility] Maternal Medicine [facility] [address] [facility] [address] [place] [address] Diane Lopez MD [address] [place] [address] 12/12/2024 9:15 AM CAKE KNOCKER Office Visit [facility] Maternal Medicine [facility] [address] [place] [address] Diane Lopez MD [address] [facility] [address] [place] [address] 12/14/2024 1:30 PM CAKE KNOCKER Ancillary Procedure [facility] Maternal Medicine [address] [address] Jesus Harmon MD [address] [place] [address] 12/14/2024 2:00 PM CAKE KNOCKER Office Visit [facility] Maternal Medicine [address] [place] [phone] Jesus Harmon MD [address] [place] [address] 12/17/2024 12:45 PM CAKE KNOCKER Appointment [facility] Maternal Medicine [facility] [address] [facility] [place] [address] Jesus Harmon MD [address] [place] [address] 12/17/2024 1:15 PM CAKE KNOCKER Office Visit [facility] [place] [address] [place] [address] Jesus Harmon MD [address] [place] [address] 12/17/2024 1:30 PM CAKE KNOCKER Office Visit [facility] Maternal Medicine [facility] [address] [place] [address] Jesus Harmon MD [address] [place] [address] 12/19/2024 9:30 AM CAKE KNOCKER Appointment [facility] Maternal Medicine [place] [address] [place] [phone] Nicole Núñez MD [address] [place] [address] Flower Amato MD [address] [address] 12/19/2024 10:00 AM CAKE KNOCKER Office Visit [facility] Maternal Medicine [place] [address] [facility] [address] [place] [address] Nicole Núñez MD [address] [facility] [place] [address] Flower Amato MD [address] [address] 12/21/2024 11:45 AM CAKE KNOCKER Appointment [facility] Maternal Medicine [place] [address] [place] [address] Jesus Harmon MD [address] [place] [address] Karin Esteban MD [address] [address] 12/21/2024 12:15 PM CAKE KNOCKER Office Visit [facility] Maternal Medicine [facility] [address] [place] [phone] Jesus Harmon MD [address] [place] [address] Karin Esteban MD [address] [facility] [address] [place] [address] 12/24/2024 11:00 AM CAKE KNOCKER Appointment [facility] [place] [address] [place] [phone] Jesus Harmon MD [address] [place] [address] 12/24/2024 11:30 AM CAKE KNOCKER Office Visit [facility] [place] [address] [place] [address] Jesus Harmon MD [address] [place] [address] 12/24/2024 11:45 AM CAKE KNOCKER Office Visit [facility] [place] [address] [place] [address] Jesus Harmon MD [address] [place] [address] 12/26/2024 10:15 AM CAKE KNOCKER Appointment [facility] Maternal Medicine [facility] [address] [place] [phone] Jesus Harmon MD [address] [place] [address] 12/26/2024 10:45 AM CAKE KNOCKER Office Visit [facility] Maternal Medicine [facility] [address] [place] [phone] Jesus Harmon MD [address] [place] [address] 12/28/2024 10:15 AM CAKE KNOCKER Appointment [facility] Maternal Medicine [facility] [address] [place] [address] Diane Lopez MD [address] [place] [address] 12/28/2024 10:45 AM CAKE KNOCKER Office Visit [facility] Maternal Medicine [place] [address] [address] [facility] [address] [place] [phone] Diane Lopez MD [address] [place] [address] 01/11/2025 10:15 AM CDT Appointment [facility] Maternal Medicine [facility] [address] [place] [phone] Diane Lopez MD [address] [place] [address] 01/11/2025 10:45 AM CDT Office Visit [facility] [place] [address] [facility] [address] [place] [phone] Diane Lopez MD [address] [place] [address] Scheduled Referrals Name Type Priority Associated Diagnoses [...] antepartum documented in this encounter Care Teams Cut Out Operator Relationship Specialty Start Date End Date No Ref-Primary, Physician PCP - General 12/04/21 Flower Amato MD [address] [place] [address] Assigned OBGYN Provider 11/22/24 documented as of this encounter
[2024-12-07 21:42] LABS: HCO3 VBG 22 mmol/L (21-28); PCO2 VBG 30 mmHG (40-50); PO2 VBG 63.2 mmHG (25-47); pH VBG 7.477 (7.32-7.43)
[2024-12-07 21:54] LABS: Basophils Absolute Auto 0.01 K/uL (0.00-0.30); Basophils Percent Auto 0.2 % (0.0-3.0); Eosinophils Absolute Auto 0.01 K/uL (0.00-0.50); Eosinophils Percent Auto 0.2 % (0.0-7.0); Hemoglobin* 9.5 gm/dL (12.0-16.0); Immature Granulocytes Abs Auto 0.02 K/uL (0.00-0.30); Immature Granulocytes Pct Auto 0.3 %; Lymphocytes Absolute Auto 1.89 K/uL (0.90-2.90); Lymphocytes Percent Auto 28.7 % (20-44); Mean Corpuscular HGB Conc 32 gm/dL (32-36); Mean Corpuscular Hemoglobin 25 pg (26-34); Mean Corpuscular Volume 77 fL (80-100); Monocytes Percent Auto 6.8 % (0.0-11.0); Neutrophils Percent Auto 63.8 % (42.0-72.0); Platelet Count* 214 K/uL (140-440); RDW Coefficient of Variation % 14.7 % (11.5-15.5); Red Blood Count 3.88 m/uL (4.00-5.20); White Blood Count* 6.58 K/uL (4.50-11.00)
[2024-12-07 21:59] LABS: Albumin* 3.5 g/dL (3.3-5.0); Chloride* 107 mmol/L (96-114)
[2024-12-07 22:00] LABS: Potassium* 3.7 mmol/L (3.6-5.1); Sodium* 134 mmol/L (135-149)
[2024-12-07 22:02] LABS: Creatinine* 0.4 mg/dL (0.5-1.5); Estimated Glomerular Filt Rate 136 ml/min; Slide Review Reflex No
[2024-12-07 22:03] LABS: Alanine Aminotransferase* 18 U/L (4-35); Alkaline Phosphatase* 73 U/L (40-150); Anion Gap 7 mEq/L (7-15); Aspartate Amino Transferase* 21 U/L (12-35); Bilirubin Direct* 0.1 mg/dL (0.0-0.5); Bilirubin Total* 0.2 mg/dL (0.1-1.5); Blood Urea Nitrogen* 11 mg/dL (5-24); Carbon Dioxide* 20 mmol/L (20-32); Glucose* 88 mg/dL (60-115); Total Protein* 6.2 g/dL (6.0-8.3)
[2024-12-07 22:04] LABS: Calcium* 8.3 mg/dL (8.4-10.6)
[2024-12-07] MEDS: 0.9 % SODIUM CHLORIDE 1000 ml 1,000 ML 500 ML IV (22:11)
[2024-12-07 22:12] LABS: C Reactive Protein* < 0.5 mg/dL (0.5-1.0)
[2024-12-07 22:13] LABS: NT Pro B Type NatriureticPept* < 20 pg/mL
[2024-12-07 22:20] LABS: Procalcitonin* 0.05 ng/mL (<0.50)
[2024-12-07 22:44] LABS: TSH With Reflex to FT4* 0.408 uIU/mL (0.270-4.200); Troponin I* < 0.01 ng/mL (0.01-0.04)
--- NOTE | 2024-12-07 22:53 | CRLHL7_ITS ---
For Patients: As a result of the Cures Act, medical imaging exams and procedure reports are released immediately into your electronic medical record. You may view this report before your referring provider. If you have questions, please contact your health care provider. INDICATION: Shortness of breath, recent illness, 22 weeks . TECHNIQUE: Chest 1 view. COMPARISON: CT chest 12/01/2024. FINDINGS: Cardiovascular: Heart size and vasculature are normal in caliber and appearance. Lungs and pleural spaces: Lungs are clear without focal consolidation. No sign of pleural effusion. No pneumothorax identified. Bones and soft tissues: No significant findings. IMPRESSION: No acute cardiopulmonary findings. Dictated by Scarlett Araiza MD @ 12/07/2024 11:41:23 PM (Electronically Signed)
[2024-12-07 23:03] VITALS: BP 112/69; PULSE 76; O2SAT 100
== END 2024-12-07 23:59 | disposition home or self-care (01) ==
PROVIDERS: Emergency Provider Family Medicine
DX: O99.012 Anemia complicating pregnancy, second trimester (principal); R06.02 Shortness of breath; Z3A.22 22 weeks gestation of pregnancy
CPT/HCPCS: 36415; 71045; 80053; 81001; 82248; 82803; 83880; 84145; 84443; 84484; 85025; 86140; 93005; 94761; 99284; J7030

== ENCOUNTER 2024-12-23 23:17 | Emergency (ER) | payer MEDICAID, SELFPAY ==
--- OUTSIDE RECORDS SUMMARY | 2024-12-23 23:19 | XMS_ITS | Encounter Summary ---
Author Organization [place] Address [address] [facility] [place] [address] Care Team Providers Care Specialist Physician Name Role Phone No Ref-Primary, Physician Primary Care Provider Reason for Referral * Diagnostic Imaging Ultrasound (Routine) - Pending Review Specialty Diagnoses / Procedures Referred By Noa t Referred To Contact Radiology. 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 Procedures MFM Twins US Comprehensive F/U Flower Amato MD [address] [place] [address] Phone: tel: fax: Referral ID Status Reason Start Date Expiration Date V isits Requested Visits Authorized [id number] Pending Review 11/14/2024 11/14/2025 1 1 GER COSMETIC Reason for Visit * Reason Comments Ultrasound L2-mono/di twins Encounter Details Date Type Department Care Team (Latest Contact Info) Description 11/14/2024 11:30 AM MANAGER COSMETIC Office Visit [facility] [place] [address] [facility] [address] [place] [address] Flower Amato MD [address] [place] [address] Monochorionic diamniotic twin gestation in [...] Help Needed Not on file 07/23 Comments Yes Sex and Gender Information Value Date Recorded Sex Assigned at Not on file Legal Sex Female 11:44 PM MANAGER COSMETIC Gender Identity Not on file Sexual Orientation Not on file documented as of this encounter Progress Notes * Flower Amato MD - 11/14/2024 11:30 AM CST The patient was seen for an ultrasound in the Maternal- Medicine Center at the [facility] today. For a detailed report of the ultrasound examination, please see the ultrasound report which can be found under the imaging tab. If you have questions regarding today's evaluation or if we can be of further service, please contact the Maternal- Medicine Center. Flower Amato MD Hatch Boss, MOTOR TEACHER Maternal- Medicine [phone] (Pager) GER COSMETIC documented in this encounter Nursing Notes * April Baker, MAGUI - 11/14/2024 11:30 AM CST Patient reports positive movement, denies contractions, leaking of fluid, or bleeding. SBAR given to BLANCA MEDINA, see their note in Epic. GER COSMETIC documented in this encounter Plan of Treatment Not on file documented as of this encounter Results * MFM Twins US Comprehensive F/U (11/22/2024 11:09 AM MANAGER COSMETIC) Anatomical Region Laterality Modality Ultrasound 11/22/2024 9:46 AM MANAGER COSMETIC Impressions 11/23/2024 6:03 PM MANAGER COSMETIC IMPRESSION ----- Monochorionic diamniotic twin gestation at [...] SPECIAL SURGERY Surveillance US ----- Pat. Name: DEANDRE CHÁVEZ Study Date: 11/22/2024 9:46am Pat. NO: [id number] Referring MD: PAMELA CUELLAR Site: Dental Service Chief: José Miguel Hussein RDMS : 1995 Age: 29 ----- INDICATION ----- Monochorionic-Diamniotic Twin Gestation Selective Growth Restriction (FGR) fetus 2 Circumvallate placenta METHOD ----- Transabdominal ultrasound examination. View: Sufficient. ----- Twin . Number of fetuses: 2. Monochorionic-diamniotic DATING ----- Date Details Gest. age OTMMIE LMP 07/01/2024 20 w + 4 d [...] the patient (reviewing medical records/tests), in direct nyte-bz-zfnc contact with the patient counseling and discussing the plan of care, documenting the visit in the electronic medical record, and communicating with other health healthcare network pricing consultant and/or care coordination. Procedure Note Nicole Núñez MD - 11/23/2024 Surveillance US ----- Pat. Name: DEANDRE CHÁVEZ Study Date: 11/22/2024 9:46am Pat. NO: [id number] Referring MD: PAMELA CUELLAR Site: Dental Service Chief: José Miguel Hussein RDMS : 1995 Age: [...] see the patient(reviewing medical records/tests), in direct tlwr-vg-jugn contact with the patient counseling and discussingthe plan of care, documenting the visit in the electronic medical record,and communicating with other health healthcare network pricing consultant and/or care coordination. IMPRESSION ----- Monochorionic [...] anemia polycythemia syndrome. us Flower Amato MD [facility] ORDERABLES Edited Re sult - Final documented in this encounter Visit Diagnoses Diagnosis Monochorionic diamniotic twin gestation in second trimester- Primary Discordant growth in twin gestation, fetus 2 of multiple gestation Intrauterine growth restriction affecting antepartum care of mother in first trimester, fetus 2 Monochorionic diamniotic twin gestation in second trimester documented in this encounter Care Teams Specialist Physician Relationship Specialty Start Date End Date No Ref-Primary, Physician PCP - General 12/04/21 documented as of this encounter
--- OUTSIDE RECORDS SUMMARY | 2024-12-23 23:20 | XMS_ITS | Encounter Summary ---
Author Organization [place] Address [address] [facility] [place] [address] Care Team Providers Care Professional Driver Name Role Phone No Ref-Primary, Physician Primary Care Provider Flower Amato MD Unavailable [phone] Reason for Referral * Consultation (Routine: Next available opening) - Pending Review Specialty Diagnoses / Procedures Referred By Contac t Referred To Contact Diagnoses Monochorionic diamniotic twin , antepartum Jesus Harmon MD [address] [place] [address] Phone: tel: fax: Referral ID Status Reason Start Date Expiration Date V isits Requested Visits Authorized [id number] Pending Review 12/05/2024 12/05/2025 1 1 Question Answer Office Visit Type: OB Visit - First RVISOR MAINTENANCE Encounter Details Date Type Department Care Team (Late st Contact Info) Description 12/05/2024 Orders Only [facility] [address] [address] Joceline Bejarano RN Monochorionic diamniotic twin , [...] file Legal Sex Female 11:44 PM SUPERVISOR MAINTENANCE Gender Identity Not on file Sexual Orientation Not on file documented as of this encounter Plan of Treatment Scheduled Referrals Name Type Priority Associated Diagnoses Orde r Schedule MFM Office Visit - OB Visit - First Referral Routine: Next available opening Monochorionic diamniotic twin , antepartum Expected: 12/10/2024 (Approximate), Expires: 12/05/2025 documented as of this encounter Visit Diagnoses Diagnosis Monochorionic diamniotic twin , antepartum- Primary Twin , antepartum documented in this encounter Care Teams Professional Driver Relationship Specialty Start Date End Date No Ref-Primary, Physician PCP - General 12/04/21 Flower Amato MD [address] [address] Assigned OBGYN Provider 11/22/24 documented as of this encounter
--- OUTSIDE RECORDS SUMMARY | 2024-12-23 23:20 | XMS_ITS | Encounter Summary ---
Author Organization [place] Address [address] [place] [address] Care Team Providers Care Drive In Waiter/Waitress Name Role Phone No Ref-Primary, Physician Primary Care Provider Flower Amato MD Unavailable [phone] Reason for Referral * Diagnostic Imaging Ultrasound (Routine) - Pending Review Specialty Diagnoses / Procedures Referred By Contac t Referred To Contact Radiology. 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 Procedures MFM Twins US Comprehensive F/U Flower Amato MD [address] [facility] [address] [address] Phone: tel: fax: Referral ID Status Reason Start Date Expiration Date V isits Requested Visits Authorized [id number] Pending Review 11/14/2024 11/14/2025 1 1 DESIGN TEACHER Reason for Visit * Diagnostic Imaging Ultrasound (Routine) - Pending Review Specialty Diagnoses / Procedures Referred By Contac t Referred To Contact Radiology. 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 Procedures MFM Twins US Comprehensive F/U Flower Amato MD [address] [place] [address] Phone: tel: fax: Referral ID Status Reason Start Date Expiration Date V isits Requested Visits Authorized [id number] Pending Review 11/14/2024 11/14/2025 1 1 Encounter Details Date Type Department Care Team (Latest Contact Info) Description 11/22/2024 9:28 AM SHIP DESIGN TEACHER - 11/22/2024 11:59 PM SHIP DESIGN TEACHER Hospital Encounter [facility] [place] [address] [place] [phone] Nicole Núñez MD [address] [place] [address] Monochorionic diamniotic twin gestation in second trimester [...] on file Legal Sex Female 11:44 PM SHIP DESIGN TEACHER Gender Identity Not on file Sexual Orientation Not on file documented as of this encounter Medications at Time of Discharge acetaminophen (TYLENOL) 500 MG tabletIndications: Acute appendicitis with localized peritonitis, unspecified whether abscess present, unspecified whether gangrene present, unspecified whether perforation present Take 2 tablets (1,000 mg) by mouth every 6 hours as needed for pain 12/04/2021 5 amoxicillin (AMOXIL) 875 MG tabletIndications: Strep throat [...] on file documented as of this encounter Procedures Procedure Name Priority Date/Time Associated Diagnosis Comments MFM TWINS US COMPREHENSIVE F/U Routine 11/22/2024 11:09 AM SHIP DESIGN TEACHER Monochorionic diamniotic twin gestation in second trimester documented in this encounter Results * MFM Twins US Comprehensive F/U (11/22/2024 11:09 AM SHIP DESIGN TEACHER) Anatomical Region Laterality Modality Ultrasound 11/22/2024 9:46 AM SHIP DESIGN TEACHER Impressions 11/23/2024 6:03 PM SHIP DESIGN TEACHER IMPRESSION ----- Monochorionic diamniotic twin gestation [...] anemia polycythemia syndrome. Narrative 11/23/2024 6:03 PM SHIP DESIGN TEACHER [facility] Surveillance US ----- Pat. Name: HEATHER CHÁVEZ Study Date: 11/22/2024 9:46am Pat. NO: [id number] Referring MD: PAMELA CUELLAR Site: Bell Ringer: José Miguel Hussein RDMS : 1995 Age: [...] the patient (reviewing medical records/tests), in direct urku-jk-egxy contact with the patient counseling and discussing the plan of care, documenting the visit in the electronic medical record, and communicating with other health intensive care unit registered nurse and/or care coordination. Procedure Note Nicole Núñez MD - 11/23/2024 [facility] US ----- Pat. Name: HEATHER CHÁVEZ Study Date: 11/22/2024 9:46am Pat. NO: [id number] Referring MD: PAMELA CUELLAR Site: Bell Ringer: José Miguel Hussein RDMS : 1995 Age: [...] today's evaluation or if [facility], please contact the [facility]. anomalies may be present but not detected I spent a total of 15 minutes (excluding the ultrasound interpretation) onthe date of this encounter including preparing to see the patient(reviewing medical records/tests), in direct ivva-nk-ntrr contact with the patient counseling and discussingthe plan of care, documenting the visit in the electronic medical record,and communicating with other health intensive care unit registered nurse and/or care coordination. IMPRESSION ----- Monochorionic diamniotic [...] anemia polycythemia syndrome. us Flower Amato MD [facility] US ORDERABLES Edited Re sult - Final documented in this encounter Visit Diagnoses Diagnosis Monochorionic diamniotic twin gestation in second trimester documented in this encounter Care Teams Drive In Waiter/Waitress Relationship Specialty Start Date End Date No Ref-Primary, Physician PCP - General 12/04/21 Flower Amato MD [address] [place] [id number] Assigned OBGYN Provider 11/22/24 documented as of this encounter
--- OUTSIDE RECORDS SUMMARY | 2024-12-23 23:20 | XMS_ITS | Encounter Summary ---
Author Organization [place] Address [address] [facility] [place] [address] Care Team Providers Care Promotions Intern Name Role Phone No Ref-Primary, Physician Primary Care Provider Flower Amato MD Unavailable [phone] Reason for Referral * Diagnostic Imaging Ultrasound (Routine) - Pending Review Specialty Diagnoses / Procedures Referred By Contac t Referred To Contact Radiology. 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 Procedures MFM Twins US Comprehensive F/U Nicole Byrd MD [address] [place] [address] Phone: tel: fax: Referral ID Status Reason Start Date Expiration Date V isits Requested Visits Authorized [id number] Pending Review 11/30/2024 11/30/2025 1 1 O AND CONTAINER INSPECTOR Reason for Visit * Reason Comments Ultrasound RL2/UAR/MCA-mono/di twins, fetus 2 with FGR Encounter Details Date Type Department Care Team (Latest Contact Info) Description 11/30/2024 2:45 PM CARGO AND CONTAINER INSPECTOR Office Visit [facility] [address] [place] [address] Nicole Byrd MD [address] [place] [address] Monochorionic diamniotic twin gestation in [...] on file Legal Sex Female 11:44 PM CARGO AND CONTAINER INSPECTOR Gender Identity Not on file Sexual [...] the [facility] Center. Nicole Byrd MD Ice Guard Inspector, PLYWOOD MATCHER Maternal- Medicine O AND CONTAINER INSPECTOR documented in this encounter Nursing Notes * Rivka Jones RN - 11/30/2024 2:45 PM CST Patient reports positive movement x 2, denies pain, leaking of fluid, or bleeding. Education provided to patient on today's ultrasound. SBAR given to BLANCA MEDINA, see their note in Epic. O AND CONTAINER INSPECTOR documented in this encounter Plan of Treatment Not on file documented as of this encounter Results * MFM Twins US Comprehensive F/U (12/03/2024 3:46 PM CARGO AND CONTAINER INSPECTOR) Anatomical Region Laterality Modality Ultrasound 12/03/2024 2:24 PM CARGO AND CONTAINER INSPECTOR Impressions 12/04/2024 8:53 AM CARGO AND CONTAINER INSPECTOR IMPRESSION ----- Monochorionic diamniotic twin gestation [...] reversed a wave. Narrative 12/04/2024 8:53 AM CARGO AND CONTAINER INSPECTOR Comp Follow Up ----- Pat. Name: HEATHER CHÁVEZ Study Date: 12/03/2024 2:24pm Pat. NO: [id number] Referring MD: NICOLE BYRD Site: End User Support Specialist: Piper Huynh RDMS : 1995 Age: 29 [...] 1 lb 2 oz EFW by Hadlock ([id number]) EFW discordance 32.5 % Head / Face / Neck Biometry: Skiving Machine Operator 7.2 mm CM 3.9 mm Thorax [...] 0 lb 12 oz EFW by Hadlock ([id number]) EFW discordance 32.5 % Head / Face / Neck Biometry: Skiving Machine Operator 6.3 mm Extremities / Bony Struc Biometry: Tibia 25.7 mm 1% Valadez Fibula 26.0 mm 3% Valadez Fetus 1: ANATOMY ----- The following structures appear normal: Head / Neck Cranium. Head size. Head shape. Lateral ventricles. Midline falx. Cavum septi pellucidi. Cerebellum. Cisterna magna. Thalami. Face Lips. Profile. Nose. Heart / Thorax 4-chamber view. RVOT view. LVOT view. 9-ufhovb-atzqzno view. Diaphragm. Abdomen Stomach. Kidneys. Bladder. Spine [...] Thorax 4-chamber view. RVOT view. LVOT view. 0-xmveof-rwanbdz view. sex: female. Fetus 1: TTTS ASSESSMENT [...] context, reviewed case with Dr. Spangler at [facility] to discuss possible management options. [...] optimal outcomes for both babies and declines [facility] referral. After discussion regarding chances [...] the patient (reviewing medical records/tests), in direct zjiu-eq-hquz contact with the patient during the visit counseling and discussing the plan of care and documenting the visit in the electronic medical record. Procedure Note Flor Dickson MD - 12/04/2024 Comp Follow Up ----- Pat. Name: HEATHER CHÁVEZ Study Date: 12/03/2024 2:24pm Pat. NO: [id number] Referring MD: INCOLE BYRD Site: End User Support Specialist: Piper Huynh RDMS : 1995 Age: 29 [...] EFW (lb,oz) 1 lb 2oz EFW by Hadlock([id number]) EFW discordance 32.5% Head / Face / Neck Biometry: Skiving Machine Operator 7.2mm CM 3.9mm Thorax / Lungs [...] EFW (lb,oz) 0 lb 12oz EFW by Hadlock([id number]) EFW discordance 32.5% Head / Face / Neck Biometry: Skiving Machine Operator 6.3mm Extremities / Bony Struc Biometry: Tibia 25.7mm 1%Valadez Fibula 26.0mm 3%Valadez Fetus 1: ANATOMY ----- The following structures appear normal: Head / Neck Cranium. Head size. Head shape.Lateral ventricles. Midline falx. Cavum septi pellucidi. Cerebellum.Cisterna magna. Thalami. Face Lips. Profile. Nose. Heart / Thorax 4-chamber view. RVOT view. LVOT view.9-yjqund-jbisqxv view. Diaphragm. Abdomen Stomach. Kidneys. Bladder. Spine [...] / Thorax 4-chamber view. RVOT view. LVOT view.8-magvda-fkkwddo view. sex: female. Fetus 1: TTTS ASSESSMENT [...] for twin 1. Given twin 2 is [id number] at 22 weeks, chances of intact survival [...] this context, reviewed case with Dr. Spangler [facility] to discuss possible management options. [...] optimal outcomes for both babies and declines [facility] referral.After discussion regarding chances of [...] see the patient(reviewing medical records/tests), in direct ceam-xh-uixt contact with the patient during the visitcounseling [...] with intermittent reversed awave. Nicole Byrd MD [facility] ORDERABLES Edited Result - Final documented in this encounter Visit Diagnoses Diagnosis Monochorionic diamniotic twin gestation in second trimester- Primary Intrauterine growth restriction affecting antepartum care of mother in first trimester, fetus 2 Ductus venosus abnormality Monochorionic diamniotic twin gestation in second trimester documented in this encounter Care Teams Promotions Intern Relationship Specialty Start Date End Date No Ref-Primary, Physician PCP - General 12/04/21 Flower Amato MD [address] [place] [address] Assigned OBGYN Provider 11/22/24 documented as of this encounter
--- OUTSIDE RECORDS SUMMARY | 2024-12-23 23:20 | XMS_ITS | Encounter Summary ---
Author Organization [place] Address [address] [place] [address] Care Team Providers Care Agricultural Equipment Sales Engineer Name Role Phone No Ref-Primary, Physician Primary Care Provider Flower Amato MD Unavailable [phone] Encounter Details Date Type Department Care Team (Late st Contact Info) Description 11/30/2024 Office Visit [facility] [address] [facility] [address] [place] [address] Luc Dominguez MD [address] [place] [id number] cardiac anomaly complicating , antepartum, fetus 1 [...] on file Legal Sex Female 11:44 PM LEARNING DISABILITIES SPECIALIST Gender Identity Not on file Sexual Orientation Not on file documented as of this encounter Progress Notes * Luc Dominguez MD - 11/30/2024 1:03 PM CST [facility] Consult Note Patient: Heather Chávez Date of : 1995 Age: [age] year old Date of Visit: 11/30/2024 PCP: No Ref-Primary, Physician Dear Dr. Lopez ref. provider found: I had the pleasure of seeing Heather Chávez at the [facility] on 11/30/2024 in cardiology consultation for echocardiogram results. She presented today accompanied by her sister in law. As you know, she is a 29 year old at 21w5d who presented for echocardiogram today because of [place]-Di twins. I performed and interpreted the echocardiogram [...] care. I spent approximately 45 minutes in kwyr-mm-lwsb time reviewing the above considerations. Kade Dominguez M.D. Pediatric Cardiology [address] Academic Office Building [address] [facility], [place] [address] NING DISABILITIES SPECIALIST documented in this encounter Plan of Treatment Not on file documented as of this encounter Visit Diagnoses Diagnosis cardiac anomaly complicating , antepartum, fetus 1- Primary cardiac anomaly complicating , antepartum, fetus 2 documented in this encounter Care Teams Agricultural Equipment Sales Engineer Relationship Specialty Start Date End Date No Ref-Primary, Physician PCP - General 12/04/21 Flower Amato MD [address] [address] Assigned OBGYN Provider 11/22/24 documented as of this encounter
--- OUTSIDE RECORDS SUMMARY | 2024-12-23 23:20 | XMS_ITS | Encounter Summary ---
Author Organization [facility] Address [address] [place] [address] Care Team Providers Care Computer Science Instructor Name Role Phone No Ref-Primary, Physician Primary Care Provider Flower Amato MD Unavailable [phone] Reason for Referral * Diagnostic Imaging Ultrasound (Routine) - Pending Review Specialty Diagnoses / Procedures Referred By Contac t Referred To Contact Radiology. Diagnoses Monochorionic diamniotic twin , antepartum Procedures MFM Twins US Comprehensive F/U Jesus Harmon MD [address] [place] [id number] Phone: tel: fax: Referral ID Status Reason Start Date Expiration Date V isits Requested Visits Authorized [id number] Pending Review 12/05/2024 12/05/2025 1 1 TBAND SHAPER * Diagnostic Imaging Ultrasound (Routine) - Pending Review Specialty Diagnoses / Procedures Referred By Contac t Referred To Contact Radiology. Diagnoses Monochorionic diamniotic twin , antepartum Procedures MFM Twins US Comprehensive F/U Jesus Harmon MD [address] [place] [address] Phone: tel: fax: Referral ID Status Reason Start Date Expiration Date V isits Requested Visits Authorized [id number] Pending Review 12/05/2024 12/05/2025 1 1 TBAND SHAPER Reason for Visit * Reason Comments Ultrasound RL2/UAR/MCA- mono/di twins, FGR fetus 2 Encounter Details Date Type Department Care Team (Latest Contact Info) Description 12/05/2024 12:15 PM SWEATBAND SHAPER Office Visit [facility] Maternal Medicine [facility] [address] [place] [address] Karin Esteban MD [address] [place] [address] Jesus Harmon MD [address] [place] [address] Monochorionic diamniotic twin , antepartum (Primary Dx); [...] on file Legal Sex Female 11:44 PM SWEATBAND SHAPER Gender Identity Not on file Sexual Orientation Not on file documented as of this encounter Last Filed Vital Signs Vital Sign Reading Time Taken Comments Blood Pressure 111/70 12/05/2024 1:59 PM SWEATBAND SHAPER Pulse 73 12/05/2024 1:59 PM SWEATBAND SHAPER Temperature - - Respiratory Rate 18 12/05/2024 1:59 PM SWEATBAND SHAPER Oxygen Saturation 100% 12/05/2024 1:59 PM SWEATBAND SHAPER Inhaled Oxygen Concentration - - Weight - - Height - - Body Mass Index - - documented in this encounter Progress Notes * Jesus Harmon MD - 12/05/2024 12:15 PM CST Please see Imaging tab under Chart Review for details of today's visit. Jesus Harmon TBAND SHAPER documented in this encounter Nursing Notes * [...] to patient. Pt met with Dr. Joe (upholstery parts sorter) today. Pt discharged stable and ambulatory. Jennifer Arias RN TBAND SHAPER TBAND SHAPER documented in this encounter Miscellaneous Notes * Addendum Note - Jennifer Arias RN - 12/05/2024 12:15 PM CSTAddended by: JENNIFER ARIAS on: 12/05/2024 02:04 PM Modules accepted: Orders TBAND SHAPER documented in this encounter Plan of Treatment Not on file documented as of this encounter Results * MFM Twins US Comprehensive F/U (12/10/2024 2:29 PM SWEATBAND SHAPER) Anatomical Region Laterality Modality Ultrasound 12/10/2024 1:23 PM SWEATBAND SHAPER Impressions 12/10/2024 2:45 PM SWEATBAND SHAPER IMPRESSION ----- Patient is here for antepartum testing secondary to 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 Intrauterine at 23 1/7 weeks gestational age. Fetus 1 1) bladder is visualized. 2) The amniotic fluid volume appears normal as measured by MVP. 3) The UAR Doppler waveform (performed for TTTS surveillance) is normal. 4) The MCA Doppler waveform (performed for TAPS surveillance) is normal. 5) DV waveform is normal. Fetus 2 1) bladder is visualized. 2) The amniotic fluid volume appears normal as measured by MVP. 3) The UAR Doppler waveform (performed for TTTS surveillance) shows forward flow with elevated PI as well as AEDF and REDF patterns consistent with FGR Type III. 4) The MCA Doppler waveform (performed for TAPS surveillance) is normal. 5) DV waveform shows episodes of reverse flow in a-wave. Narrative 12/10/2024 2:45 PM [facility] Surveillance US ----- Pat. Name: DEANDRE LEYVA Study Date: 12/10/2024 1:23pm Pat. NO: [id number] Referring MD: PAMELA CUELLAR Site: Senior Software Qa Engineer: Avani Ren RDMS : 1995 Age: 29 ----- INDICATION ----- Monochorionic-Diamniotic Twin Gestation Selective Growth Restriction (FGR) fetus 2 Circumvallate placenta METHOD ----- View: Sufficient ----- Twin . Number of fetuses: 2. Monochorionic-diamniotic DATING ----- Date Details Gest. age TOMMIE LMP 07/01/2024 23 w + 1 d 04/07/2025 Previous U/S 08/27/2024 GA, GA 7 w + 6 d 22 w + 6 d 04/09/2025 Assigned dating based on the LMP, selected on 11/22/2024 23 w + 1 d 04/07/2025 Fetus 1: GENERAL EVALUATION ----- Cardiac activity present. FHR 124 bpm. movements: present. Presentation: maternal left, cephalic Placenta: Placental site: anterior, no previa Umbilical cord: Cord vessels: 3 vessel cord. Insertion site: normal insertion Amniotic fluid: Amount of AF: normal. MVP 6.5 cm Fetus 2: GENERAL EVALUATION ----- Cardiac activity present. FHR 157 bpm. movements: present. Presentation: maternal right, breech Placenta: Placental site: anterior, no previa Umbilical cord: Cord vessels: 3 vessel cord. Insertion site: normal insertion Amniotic fluid: Amount of AF: normal. MVP 6.1 cm Fetus 1: DOPPLER ----- Umbilical Artery: normal. Sampling site: midcord PI 1.43 91% Ramírez HR 131 bpm Mid Cerebral Artery: normal PS 40.94 cm/s PS 1.39 MoM Ductus Venosus: normal Fetus 2: DOPPLER ----- Umbilical Artery: abnormal, Intermittent Reversed End Diastolic Flow. Sampling site: midcord PI 2.58 HR 157 bpm Mid Cerebral Artery: normal PS 38.37 cm/s PS 1.30 MoM Ductus Venosus: abnormal A-wave intermittent reversed end-diastolic flow Fetus 1: TTTS ASSESSMENT ----- Cardiac activity: present Placental location: anterior, no previa Placental cord insertion: normal insertion bladder: normal hydrops: No MVP: 6.5 cm MCA PSV: 40.94 cm/s MCA MoM: 1.39 UA PI: 1.43, 91% Ductus Venosus: normal Fetus 2: TTTS ASSESSMENT ----- Cardiac activity: present Placental location: anterior, no previa Placental cord insertion: normal insertion bladder: normal hydrops: No MVP: 6.1 cm MCA PSV: 38.37 cm/s MCA MoM: 1.3 UA PI: 2.58 Ductus Venosus: abnormal RECOMMENDATION ----- I discussed findings with patient. The reversal of a-wave flow is concerning for increased risk for loss in the FGR twin, in setting of Type III FGR. I have discussed findings and given patient intent to provide all support possible for survival of both twins, I have recommended admission for a course of corticosteroid and surveillance. Thank you for the opportunity to participate in the care of this patient. If you have questions regarding today's evaluation or if we can be of further service, please contact the [facility]. anomalies may be present but not detected Procedure Note Jaren Rodriguez MD - 12/10/2024 Surveillance ----- Pat. Name: DEANDRE LEYVA Study Date: 12/10/2024 1:23pm Pat. NO: [id number] Referring MD: PAMELA CUELLAR Site: Senior Software Qa Engineer: Avani Ren RDMS : 1995 Age: 29 ----- INDICATION ----- Monochorionic-Diamniotic Twin Gestation Selective Growth Restriction (FGR) fetus 2 Circumvallate placenta METHOD ----- View: Sufficient ----- Twin . Number of fetuses: 2. Monochorionic-diamniotic DATING ----- DateDetailsGest. age TOMMIE LMP w + 1 d 04/07/2025 Previous U/S 08/27/2024 GA, GA7 w + 6 d22 w + 6 d 04/09/2025 Assigned dating based on the LMP, selected on w + 1 d 04/07/2025 Fetus 1: GENERAL EVALUATION ----- Cardiac activity present. FHR 124 bpm. movements: present.Presentation: maternal left, cephalic Placenta: Placental site: anterior, no previa Umbilical cord: Cord vessels: 3 vessel cord. Insertion site: normalinsertion Amniotic fluid: Amount of AF: normal. MVP 6.5 cm Fetus 2: GENERAL EVALUATION ----- Cardiac activity present. FHR 157 bpm. movements: present.Presentation: maternal right, breech Placenta: Placental site: anterior, no previa Umbilical cord: Cord vessels: 3 vessel cord. Insertion site: normalinsertion Amniotic fluid: Amount of AF: normal. MVP 6.1 cm Fetus 1: DOPPLER ----- Umbilical Artery: normal. Sampling site: midcord PI 1.4391%Ramírez HR 131bpm Mid Cerebral Artery: normal PS 40.94cm/s PS 1.39MoM Ductus Venosus: normal Fetus 2: DOPPLER ----- Umbilical Artery: abnormal, Intermittent Reversed End Diastolic Flow.Sampling site: midcord PI 2.58 HR 157bpm Mid Cerebral Artery: normal PS 38.37cm/s PS 1.30MoM Ductus Venosus: abnormal A-waveintermittent reversed end-diastolic flow Fetus 1: TTTS ASSESSMENT ----- Cardiac activity: present Placental location: anterior, no previa Placental cord insertion: normal insertion bladder: normal hydrops: No MVP: 6.5 cm MCA PSV: 40.94 cm/s MCA MoM: 1.39 UA PI: 1.43, 91% Ductus Venosus: normal Fetus 2: TTTS ASSESSMENT ----- Cardiac activity: present Placental location: anterior, no previa Placental cord insertion: normal insertion bladder: normal hydrops: No MVP: 6.1 cm MCA PSV: 38.37 cm/s MCA MoM: 1.3 UA PI: 2.58 Ductus Venosus: abnormal RECOMMENDATION ----- I discussed findings with patient. The reversal of a-wave flow isconcerning for increased risk for loss in the FGR twin, in settingof Type III FGR. I have discussed findings and given patient intent to provide all support possible forsurvival of both twins, I have recommended admission for a course ofantenatal corticosteroid and surveillance. Thank you for the opportunity to participate in the care of this patient.If you have questions regarding today's evaluation or if we can be offurther service, please contact the [facility]. anomalies may be present but not detected IMPRESSION ----- Patient is here for antepartum testing secondary to selective FGR Type IIIin monochorionic twins. Intrauterine at 23 1/7 weeks gestationalage. Fetus 1 1) bladder is visualized. 2) The amniotic fluid volume appears normal as measured by MVP. 3) The UAR Doppler waveform (performed for TTTS surveillance) is normal. 4) The MCA Doppler waveform (performed for TAPS surveillance) is normal. 5) DV waveform is normal. Fetus 2 1) bladder is visualized. 2) The amniotic fluid volume appears normal as measured by MVP. 3) The UAR Doppler waveform (performed for TTTS surveillance) showsforward flow with elevated PI as well as AEDF and REDF patterns consistentwith FGR Type III. 4) The MCA Doppler waveform (performed for TAPS surveillance) is normal. 5) DV waveform shows episodes of reverse flow in a-wave. us Jesus Harmon MD Zak [facility] US ORDERABLES Edited Result - Final * [facility] Twins US Comprehensive F/U (12/07/2024 11:40 AM SWEATBAND SHAPER) Anatomical Region Laterality Modality Ultrasound 12/07/2024 10:4 5 AM SWEATBAND SHAPER Impressions 12/07/2024 1:23 PM SWEATBAND SHAPER IMPRESSION ----- Patient here for growth assessment [...] bladder is visualized. Narrative 12/07/2024 1:23 PM SWEATBAND SHAPER Surveillance US ----- Pat. Name: DEANDRE LEYVA Study Date: 12/07/2024 10:45am Pat. NO: [id number] Referring MD: PAMELA CUELLAR Site: Senior Software Qa Engineer: Kenyetta Lyons RDMS : 1995 Age: 29 [...] risk of twin anemia-polycythemia sequence (TAPS) (Nando s et al., 2018). In this case, the [...] age exceed 85-90% with appropriate intensive care (Rilcen et al., 2012). Given the high risk [...] Obstetrics & Gynaecology, 49, 65-76. ? Vidal L, et al. (2010). The outcome of monochorionic diamniotic twin pregnancies with selective intrauterine growth restriction. [place] Journal of Obstetrics and Gynecology, 203(4), 333.e1-7. ? Rdaha SJ, et al. (2018). Consensus definition of growth restriction: A Killeen procedure. Ultrasound in Obstetrics & Gynecology, 52(1), 24-29. ? Luisa Dennis et al. (2020). Twin complications: The risk of single intrauterine demise in monochorionic twins. Diagnosis, 40(9), 5792-0837. ? Boris Dennis, et al. (2012). mortality [...] LEYVA Study Date: 12/07/2024 10:45am Pat. NO: [id number] Referring MD: PAMELA CUELLAR Site: Senior Software Qa Engineer: Kenyetta Lyons RDMS : 1995 Age: 29 [...] in cases of AREDF in sFGR is [id number] weeks (Radha et al., 2018), though survival [...] al. (2018). Consensus definition of growthrestriction: A Killeen procedure. Ultrasound in Obstetrics & Gynecology,52(1), 24-29. ? Luisa Dennis, et al. (2020). Twin complications: The risk ofsingle intrauterine demise in monochorionic twins. PrenatalDiagnosis, 40(9), 5548-3437. ? Boris Dennis, et al. (2012). mortality [...] bladder is visualized. us Jesus Harmon MD [facility] US ORDERABLES Edited Result - Final [...] antepartum documented in this encounter Care Teams Computer Science Instructor Relationship Specialty Start Date End Date No Ref-Primary, Physician PCP - General 12/04/21 Flower Amato MD [address] [address] Assigned OBGYN Provider 11/22/24 documented as of this encounter
--- OUTSIDE RECORDS SUMMARY | 2024-12-23 23:20 | XMS_ITS | Encounter Summary ---
Author Organization [facility] Address [address] [facility] [place] [address] Care Team Providers Care Software Application Tester Name Role Phone No Ref-Primary, Physician Primary Care Provider Flower Amato MD Unavailable [phone] Encounter Details Date Type Department Care [...] on file Legal Sex Female 11:44 PM COTTON PROGRAM TECHNICIAN Gender Identity Not on file Sexual Orientation Not on file documented as of this encounter Plan of Treatment Not on file documented as of this encounter Visit Diagnoses Not on filedocumented in this encounter Care Teams Software Application Tester Relationship Specialty Start Date End Date No Ref-Primary, Physician PCP - General 12/04/21 Flower Amato MD [address] [place] [address] Assigned OBGYN Provider 11/22/24 documented as of this encounter
--- OUTSIDE RECORDS SUMMARY | 2024-12-23 23:20 | XMS_ITS | Encounter Summary ---
Author Organization [facility] Address [address] [place] [id number] Care Team Providers Care Senior Tax Accountant Name Role Phone No Ref-Primary, Physician Primary Care Provider Flower Amato MD Unavailable [phone] Reason for Referral * CV Testing (Routine) - Closed Specialty Diagnoses / Procedures Referred By Contac t Referred To Contact Cardiology Diagnoses Monochorionic diamniotic twin gestation Procedures Echo (TTE) Complete Yobani Lopez MD [address] [address] Phone: tel: fax: [facility] [address] [place] [phone] Phone: tel: Referral ID Status Reason Start Date Expiration Date Visits Re quested Visits Authorized [id number] Closed 10/19/2024 10/19/2025 1 1 MOTIVE DISMANTLER Reason for Visit * CV Testing (Routine) - Closed Specialty Diagnoses / Procedures Referred By Contac t Referred To Contact Cardiology Diagnoses Monochorionic diamniotic twin gestation Procedures Echo (TTE) Yobani Olivares MD [address] [place] [address] Phone: tel: fax: [facility] [address] [place] [address] Phone: tel: Referral ID Status Reason Start Date Expiration Date Visits Re quested Visits Authorized [id number] Closed 10/19/2024 10/19/2025 1 1 Encounter Details Date Type Department Care Team (Latest Contact Info) Description 11/30/2024 12:25 PM AUTOMOTIVE DISMANTLER - 11/30/2024 1:30 PM AUTOMOTIVE DISMANTLER Hospital Encounter [facility] [address] [place] [phone] Yobani Lopez MD [address] [place] [address] Monochorionic diamniotic twin gestation in second [...] on file Legal Sex Female 11:44 PM AUTOMOTIVE DISMANTLER Gender Identity Not on file Sexual Orientation [...] ECHO COMPLETE Routine 11/30/2024 1 :46 PM AUTOMOTIVE DISMANTLER Monochorionic diamniotic twin gestation in second trimester documented in this encounter Results * ECHO COMPLETE (11/30/2024 1:46 PM AUTOMOTIVE DISMANTLER) Anatomical Region Laterality Modality Echocardiography 11/30/2024 1:42 PM AUTOMOTIVE DISMANTLER Narrative 11/30/2024 2:07 PM AUTOMOTIVE DISMANTLER [id number] Study ID: [id number] [facility] [place] [address] Echocardiogram Name: HEATHER CHÁVEZ Study Date: 11/30/2024 01:42 PM Patient Location: [facility] Gender: Female Patient Class: Outpatient : [id number] Age: 29 yrs Ordering Provider: YOBANI LOPEZ Referring Provider: YOBANI LOPEZ Performed By: Daphney Dao RDCS Reading Physician: Luc Dominguez MD Reason For Study: Monochorionic diamniotic twin gestation in second trimester Data: Number of fetuses: This is a twin gestation. Due date: 04/07/2025. Gestational age: 21w5d. Delivery at: [facility]. Specific Indication: echocardiogram performed for monochorionic diamniotic [...] to the left atrium. There is laminar ipkln-ji-futm shunting across the foramen ovale. Atrioventricular valves: [...] Procedure Note Luc Dominguez MD - 11/30/2024 [id number] [facility] [id number] Study ID:[id number] [facility] [address] [facility] [place] [address] Echocardiogram Name: HEATHER CHÁVEZ Study Date: 11/30/2024 01:42 PM Patient Location: [facility] Gender: Female Patient Class:Outpatient : [id number] Age: 29 yrs Ordering Provider: YOBANI LOPEZ Referring Provider: YOBANI LOPEZ Performed By: Daphney Dao RDCS Reading Physician: Luc Dominguez MD Reason For Study: Monochorionic diamniotic twin gestation in secondtrimester Data: Number of fetuses: This is a twin gestation. Due date: 04/07/2025. Gestational age: 21w5d. Delivery at: [facility]. Specific Indication: echocardiogram performed formonochorionic diamniotic twins. [...] breech position. The fetus is located [facility]. The heart is in left chest. The [...] in to the left atrium. There is iybzcfsiqhiu-ch-lvoe shunting across the foramen ovale. Atrioventricular valves: [...] trimester documented in this encounter Care Teams Senior Tax Accountant Relationship Specialty Start Date End Date No Ref-Primary, Physician PCP - General 12/04/21 Flower Amato MD [address] [address] Assigned OBGYN Provider 11/22/24 documented as of this encounter
--- OUTSIDE RECORDS SUMMARY | 2024-12-23 23:20 | XMS_ITS | Encounter Summary ---
Author Organization [facility] Address [address] [facility] [place] [address] Care Team Providers Care Mail Processing Associate Name Role Phone No Ref-Primary, Physician Primary Care Provider Flower Amato MD Unavailable [phone] Reason for Referral * Consultation (Routine: Next available opening) - Pending Review Specialty Diagnoses / Procedures Referred By Noa lilly Referred To Contact Gastroenterology Diagnoses Esophageal spasm Aure Guevara MD [address] [place] [address] Phone: tel: fax: Referral ID Status Reason Start Date Expiration Date V isits Requested Visits Authorized [id number] Pending Review 12/23/2024 12/23/2025 1 1 Question Answer Reason for Referral: General GI Patient Scheduling Instructions: [facility] will call you to coordinate your care as prescribed by the provider. If you don t hear from a member services representative within 2 business days, please call . Additional Information: esophagael spasm Comments Please be aware that coverage of these services is subject to the terms and limitations of your health insurance plan. Call member services at your health plan with any benefit or coverage questions. [facility] will call you to coordinate your care as prescribed by the provider. If you don t hear from a member services representative within 2 business days, please call . T OPERATOR Encounter Details Date Type Department Care Team (Late st Contact Info) Description 12/23/2024 Orders Only [facility] [address] [facility] [address] [place] [phone] Aure Guevara MD [address] [place] [address] Esophageal spasm (Primary Dx) Social History Tobacco Use Types Packs/Day Years Used Date Smoking Tobacco: Never Smokeless Tobacco: Never Alcohol Use Standard Drinks/Week Comments Never 0 (1 standard drink = 0.6 oz pur e alcohol) PHQ-2 Answer Date Recorded PHQ-2 Score 2 12/10/2024 [place] Depression Scale Answer Date Recorded Last EPDS Total Score Not on file 12/23/2024 The thought of harming myself has occurred to me . Never 12/23/2024 Adolescent Education Answer Date Record ed Getting School Help Needed Not on file 07/23 Food Insecurity Answer Date Recorded Within the past 12 months, d id you worry that your food would run out before you got money to buy more? No 12/10/2024 Within the past 12 months, d id the food you bought just not last and you didn t have money to get more? No 12/10/2024 Housing Stability Answer Date Recorded Do you have housing? (Vijay g is defined as stable permanent housing and does not include staying ouside in a car, in a tent, in an abandoned building, in an overnight senior living, or couch-surfing.) No 12/10/2024 Are you worried about losing your housing? No 12/10/2024 Financial Resource Strain Answer Date R ecorded Within the past 12 months, h ave you or your family members you live with been unable to get utilities (heat, electricity) when it was really needed? No 12/10/2024 Transportation Needs Answer Date Record ed Within the past 12 months, h as lack of transportation kept you from medical appointments, getting your medicines, non-medical meetings or appointments, work, or from getting things that you need? No 12/10/2024 Interpersonal Safety Answer Date Record ed Do you feel physically and e motionally safe where you currently live? Yes 12/11/2024 Within the past 12 months, h ave you been hit, slapped, kicked or otherwise physically hurt by someone? No 12/11/2024 Within the past 12 months, h ave you been humiliated or emotionally abused in other ways by your partner or ex-partner? No 12/11/2024 Comments No Sex and Gender Information Value Date Recorded Sex Assigned at Not on file Legal Sex Female 11:44 PM SKEET OPERATOR Gender Identity Not on file Sexual Orientation Not on file documented as of this encounter Plan of Treatment Scheduled Referrals Name Type Priority Associated Diagnoses Orde r Schedule Adult GI Glass Washer Referral - Consult Only Referral Routine: Next available opening Esophageal spasm Expected: 12/23/2024 (Approximate), Expires: 12/23/2025 documented as of this encounter Visit Diagnoses Diagnosis Esophageal spasm- Primary Dyskinesia of esophagus documented in this encounter Additional Health Concerns Assessment Noted Time PHQ-9 Depression Total Score: 7 12/10/19 25 2:56 PM SKEET OPERATOR documented as of this encounter Care Teams Mail Processing Associate Relationship Specialty Start Date End Date No Ref-Primary, Physician PCP - General 12/04/21 Flower Amato MD [address] [address] Assigned OBGYN Provider 11/22/24 documented as of this encounter
--- OUTSIDE RECORDS SUMMARY | 2024-12-23 23:20 | XMS_ITS | Encounter Summary ---
Author Organization [place] Address [facility] [place] [address] Care Team Providers Care Trade Marker Name Role Phone No Ref-Primary, Physician Primary Care Provider Flower Amato MD Unavailable [phone] Reason for Visit * Reason Comments Consult NICU consult- mono/d i twins sFGR Type II * Consultation (Routine: Next available opening) - Pending Review Specialty Diagnoses / Procedures Referred By Contac t Referred To Contact Diagnoses Monochorionic diamniotic twin , antepartum Flor Dickson MD [address] [place] [address] Phone: tel: fax: Referral ID Status Reason Start Date Expiration Date V isits Requested Visits Authorized [id number] Pending Review 12/04/2024 12/04/2025 1 1 Encounter Details Date Type Department Care Team (Late st Contact Info) Description 12/05/2024 12:30 PM HOSTESS HOST Office Visit [facility] [place] [address] [place], [place] [address] Karin Esteban MD [address] [facility] [address] [place] [address] Rand Joe MD [id number] [place], [place] [address] Monochorionic diamniotic twin , antepartum Social History [...] on file Legal Sex Female 11:44 PM HOSTESS HOST Gender Identity Not on file Sexual Orientation Not on file documented as of this encounter Progress Notes * Rand Joe MD - 12/05/2024 12:30 PM CST Dear Colleagues: I had the pleasure of meeting your patient, Heather Chávez, for counseling in the Maternal Medicine Clinic at the [facility]. She was referred tome for consultation [...] medical team and healthcare providers in the [place] [facility]. I briefly described the [...] we look forward to caring for their girls in the intensive care unit at the [facility]'s [facility]. Total time spent in consultation was 45 minutes, 100% of the time spent in direct counseling. Sincerely, Rand Joe MD Attending Design Cell Engineer [facility] ESS HOST documented in this encounter Plan of Treatment Not on file documented as of this encounter Visit Diagnoses Diagnosis Monochorionic diamniotic twin , antepartum Twin , antepartum documented in this encounter Care Teams Trade Marker Relationship Specialty Start Date End Date No Ref-Primary, Physician PCP - General 12/04/21 Flower Amato MD [address] [place] [address] Assigned OBGYN Provider 11/22/24 documented as of this encounter
--- OUTSIDE RECORDS SUMMARY | 2024-12-23 23:20 | XMS_ITS | Encounter Summary ---
Author Organization [place] Address [address] [facility] [place] [address] Care Team Providers Care Printing Technician Name Role Phone No Ref-Primary, Physician Primary Care Provider Flower Amato MD Unavailable [phone] Encounter Details Date Type Department Care [...] on file Legal Sex Female 11:44 PM WORKERS COMPENSATION CONSULTANT Gender Identity Not on file Sexual Orientation Not on file documented as of this encounter Plan of Treatment Not on file documented as of this encounter Visit Diagnoses Not on filedocumented in this encounter Care Teams Printing Technician Relationship Specialty Start Date End Date No Ref-Primary, Physician PCP - General 12/04/21 Flower Amato MD [address] [place] [address] Assigned OBGYN Provider 11/22/24 documented as of this encounter
--- OUTSIDE RECORDS SUMMARY | 2024-12-23 23:20 | XMS_ITS | Encounter Summary ---
Author Organization [place] Address [address] [place] [address] Care Team Providers Care Zinc Plater Name Role Phone No Ref-Primary, Physician Primary Care Provider Flower Amato MD Unavailable [phone] Reason for Referral * Diagnostic Imaging Ultrasound (Routine) - Pending Review Specialty Diagnoses / Procedures Referred By Contac t Referred To Contact Radiology. Diagnoses Monochorionic diamniotic twin , antepartum Procedures MFM Twins US Comprehensive F/U Jesus Harmon MD [address] [place] [address] Phone: tel: fax: Referral ID Status Reason Start Date Expiration Date V isits Requested Visits Authorized [id number] Pending Review 12/05/2024 12/05/2025 1 1 ID FLOOR AND WALL APPLIER Reason for Visit * Diagnostic Imaging Ultrasound (Routine) - Pending Review Specialty Diagnoses / Procedures Referred By Contac t Referred To Contact Radiology. Diagnoses Monochorionic diamniotic twin , antepartum Procedures MFM Twins US Comprehensive F/U Jesus Harmon MD [address] [place] [address] Phone: tel: fax: Referral ID Status Reason Start Date Expiration Date V isits Requested Visits Authorized [id number] Pending Review 12/05/2024 12/05/2025 1 1 Encounter Details Date Type Department Care Team (Latest Contact Info) Description 12/07/2024 10:08 AM LIQUID FLOOR AND WALL APPLIER - 12/07/2024 11:59 PM LIQUID FLOOR AND WALL APPLIER Hospital Encounter [facility] [place] [address] [place] [address] Jaren Rodriguez MD [address] [place] [address] Monochorionic diamniotic twin , antepartum Discharge Disposition: Home or Self Care [...] file Legal Sex Female 11:44 PM LIQUID FLOOR AND WALL APPLIER Gender Identity Not on file Sexual Orientation Not on file documented as of this encounter Medications at Time of Discharge IRON-VITAMINS PO Take by mouth. omeprazole (PRILOSEC) [address] capsule Take 20 mg by mouth daily. Vit-Fe Fumarate-FA ( VITAMINS PO) Take 1 tablet by mouth daily. acetaminophen (TYLENOL) 500 MG tabletIndications: Acute appendicitis with localized peritonitis, unspecified whether abscess present, unspecified whether gangrene present, unspecified whether perforation present Take 2 tablets (1,000 mg) by mouth every 6 hours as needed for pain 12/04/2021 documented as of this encounter Plan of Treatment Not on file documented as of this encounter Procedures Procedure Name Priority Date/Time Associated Diagnosis Comments MFM TWINS US COMPREHENSIVE F/U Routine 12/07/2024 11:40 AM LIQUID FLOOR AND WALL APPLIER Monochorionic diamniotic twin , antepartum documented in this encounter Results * MFM Twins US Comprehensive F/U (12/07/2024 11:40 AM LIQUID FLOOR AND WALL APPLIER) Anatomical Region Laterality Modality Ultrasound 12/07/2024 10:4 5 AM LIQUID FLOOR AND WALL APPLIER Impressions 12/07/2024 1:23 PM LIQUID FLOOR AND WALL APPLIER IMPRESSION ----- Patient here for growth assessment [...] bladder is visualized. Narrative 12/07/2024 1:23 PM LIQUID FLOOR AND WALL APPLIER MC Surveillance US ----- Pat. Name: DEANDRE CHÁVEZ Study Date: 12/07/2024 10:45am Pat. NO: [id number] Referring MD: PAMELA CUELLAR Site: Emblem Fuser Tender: Kenyetta Lyons RDMS : 1995 Age: [...] shifts and feto- hemorrhage through placental anastomoses (Gifortino et al., 2020). Given the gestational age [...] twin pregnancies with selective intrauterine growth restriction. [place] Journal of Obstetrics and Gynecology, 203(4), 333.e1-7. ? Radha HALL, et al. (2018). Consensus definition of growth restriction: A Orrick procedure. Ultrasound in Obstetrics & Gynecology, 52(1), 24-29. ? Luisa Dennis et al. (2020). Twin complications: The risk of single intrauterine demise in monochorionic twins. Diagnosis, 40(9), 8457-1254. ? Boris Dennis et al. (2012). mortality [...] CHÁVEZ Study Date: 12/07/2024 10:45am Pat. NO: [id number] Referring MD: PAMELA CUELLAR Site: Emblem Fuser Tender: Kenyetta Lyons RDMS : 1995 Age: [...] (TAPS) (Nando s et al., 2018). In thiscase, the is [...] in cases of AREDF in sFGR is xxrknultiuxhe95-95 weeks (Radha et al., 2018), though survival [...] al. (2018). Consensus definition of growthrestriction: A Orrick procedure. Ultrasound in Obstetrics & Gynecology,52(1), 24-29. ? Luisa Dennis, et al. (2020). Twin complications: The risk ofsingle intrauterine demise in monochorionic twins. PrenatalDiagnosis, 40(9), 7071-9757. ? Boris Dennis, et al. (2012). mortality [...] antepartum documented in this encounter Care Teams Zinc Plater Relationship Specialty Start Date End Date No Ref-Primary, Physician PCP - General 12/04/21 Flower Amato MD [address] [address] [address] Assigned OBGYN Provider 11/22/24 documented as of this encounter
--- OUTSIDE RECORDS SUMMARY | 2024-12-23 23:20 | XMS_ITS | Encounter Summary ---
Author Organization [place] Address [address] [place] [address] Care Team Providers Care Supervisor Vegetable Farming Name Role Phone No Ref-Primary, Physician Primary Care Provider Reason for Referral * Diagnostic Imaging Ultrasound (Routine) - Pending Review Specialty Diagnoses / Procedures Referred By Contac t Referred To Contact Radiology. Diagnoses Monochorionic diamniotic twin gestation Procedures MFM Twins Diane Montez MD [address] [place] [address] Phone: tel: fax: Referral ID Status Reason Start Date Expiration Date V isits Requested Visits Authorized [id number] Pending Review 10/19/2024 10/19/2025 1 1 OR SCHEDULER Reason for Visit * Diagnostic Imaging Ultrasound (Routine) - Pending Review Specialty Diagnoses / Procedures Referred By Noa lilly Referred To Contact Radiology. Diagnoses Monochorionic diamniotic twin gestation Procedures MFM Twins Diane Montez MD [address] [place] [address] Phone: tel: fax: Referral ID Status Reason Start Date Expiration Date V isits Requested Visits Authorized [id number] Pending Review 10/19/2024 10/19/2025 1 1 Encounter Details Date Type Department Care Team (Latest Contact Info) Description 11/14/2024 10:09 AM SENIOR SCHEDULER - 11/14/2024 11:59 PM SENIOR SCHEDULER Hospital Encounter [facility] [address] [facility] [address] [place] [address] Flower Amato MD [address] [place] [address] Monochorionic diamniotic twin gestation in [...] on file Legal Sex Female 11:44 PM SENIOR SCHEDULER Gender Identity Not on file Sexual Orientation [...] TWINS US COMPREHENSIVE Routine 11/14/2024 11:59 AM SENIOR SCHEDULER Monochorionic diamniotic twin gestation in second trimester documented in this encounter Results * MFM Twins US Comprehensive (11/14/2024 11:59 AM SENIOR SCHEDULER) Anatomical Region Laterality Modality Ultrasound 11/14/2024 10:2 4 AM SENIOR SCHEDULER Impressions 11/14/2024 4:40 PM SENIOR SCHEDULER IMPRESSION ----- Monochorionic diamniotic twin gestation at [...] anemia polycythemia syndrome. Narrative 11/14/2024 4:40 PM SENIOR SCHEDULER Comprehensive ----- Pat. Name: HEATHER CHÁVEZ Study Date: 11/14/2024 10:24am Pat. NO: [id number] Referring MD: PAMELA CUELLAR Site: Assistant Statistician: Emerita Corona RDMS : 1995 Age: 29 [...] 0 lb 11 oz EFW by Hadlock ([id number]) EFW discordance 30.6 % Head / Face / Neck Biometry: Heating Element Repairer 6.9 mm CM 2.6 mm Nasal bone [...] 0 lb 8 oz EFW by Hadlock ([id number]) EFW discordance 30.6 % Head / Face / Neck Biometry: Heating Element Repairer 6.8 mm CM 4.4 mm Extremities / [...] view. RVOT view. LVOT view. 3-vessel view. 1-enxvrq-nbmksiq view. Situs. Aortic arch view. Bicaval view. [...] Thorax 4-chamber view. RVOT view. LVOT view. 6-xtbdqd-wmbmsps view. Aortic arch view. sex: female. Fetus [...] recommendation. She was again offered referral to [facility] for a second opinion/discussion about options in [...] the patient (reviewing medical records/tests), in direct jzfe-kd-qskt contact with the patient counseling and discussing the plan of care, documenting the visit in the electronic medical record, and communicating with other health career development counselor and/or care coordination. Please see note for details. Procedure Note Flower Amato MD - 11/14/2024 Comprehensive ----- Pat. Name: HEATHER CHÁVEZ Study Date: 11/14/2024 10:24am Pat. NO: [id number] Referring MD: PAMELA CUELLAR Site: Assistant Statistician: Emerita Corona RDMS : 1995 Age: 29 [...] EFW (lb,oz) 0 lb 11oz EFW by Hadlock(COU-KL-[id number]-FL) EFW discordance 30.6% Head / Face / Neck Biometry: Heating Element Repairer 6.9mm CM 2.6mm Nasal bone 7.8mm Fetus 2: BIOMETRY ----- BPD 42.9mm 19w 0dHadlock OFD 55.1mm 18w 2dNicolaides HC 156.8mm 18w 4dHadlock Cerebellum tr 18.1mm 18w 0dNicolaides Nuchal fold 3.0mm AC 128.0mm 18w 3d 15%Hadlock Femur 24.5mm 17w 3dHadlock Humerus 23.5mm 17w 2dJeanty Weight Calculation: EFW 219g 2%Hadlock EFW (lb,oz) 0 lb 8oz EFW by Hadlock(XII-TS-CQ-FL) EFW discordance 30.6% Head / Face / Neck Biometry: Heating Element Repairer 6.8mm CM 4.4mm Extremities / Bony Struc [...] 4-chamber view. RVOT view. LVOT view.3-vessel view. 6-mzozpo-jikwkqi view. Situs. Aortic arch view. Bicavalview. Ductal [...] / Thorax 4-chamber view. RVOT view. LVOT view.2-grubvw-ozcvlwi view. Aortic arch view. sex: female. Fetus [...] the recommendation. She was again offered referralto [facility] for a second opinion/discussion about options in [...] see the patient(reviewing medical records/tests), in direct slss-dk-wfmn contact with the patient counseling and discussingthe plan of care, documenting the visit in the electronic medical record,and communicating with other health career development counselor and/or care coordination. Please see note for [...] twin transfusionsyndrome or twin anemia polycythemia syndrome. Diane Lopez MD [facility] ORDERABLES Edited Result - Final documented in this encounter Visit Diagnoses Diagnosis Monochorionic diamniotic twin gestation in second trimester documented in this encounter Care Teams Supervisor Vegetable Farming Relationship Specialty Start Date End Date No Ref-Primary, Physician PCP - General 12/04/21 documented as of this encounter
--- OUTSIDE RECORDS SUMMARY | 2024-12-23 23:20 | XMS_ITS | Encounter Summary ---
Author Organization [place] Address [address] [place] [address] Care Team Providers Care Equipment Oiler Name Role Phone No Ref-Primary, Physician Primary [...] on file Legal Sex Female 11:44 PM LUGGAGE MAKER Gender Identity Not on file Sexual Orientation Not on file documented as of this encounter Plan of Treatment Not on file documented as of this encounter Visit Diagnoses Not on filedocumented in this encounter Care Teams Equipment Oiler Relationship Specialty Start Date End Date No Ref-Primary, Physician PCP - General 12/04/21 documented as of this encounter
--- OUTSIDE RECORDS SUMMARY | 2024-12-23 23:20 | XMS_ITS | Encounter Summary ---
Author Organization [place] Address [address] [place] [address] Care Team Providers Care Clip On Sunglasses Inspector Name Role Phone No Ref-Primary, Physician Primary Care Provider Flower Amato MD Unavailable [phone] Reason for Referral * CV Testing (Routine) - Closed Specialty Diagnoses / Procedures Referred By Contac t Referred To Contact Cardiology Diagnoses Monochorionic diamniotic twin gestation Procedures Echo (TTE) Complete Yobani Lopez MD [address] [address] Phone: tel: fax: [facility] [address] [place] [address] Phone: tel: Referral ID Status Reason Start Date Expiration Date Visits Re quested Visits Authorized [id number] Closed 10/19/2024 10/19/2025 1 1 T STAFF MEMBER Reason for Visit * CV Testing (Routine) - Closed Specialty Diagnoses / Procedures Referred By Contac t Referred To Contact Cardiology Diagnoses Monochorionic diamniotic twin gestation Procedures Echo (TTE) Yobani Olivares MD [address] [place] [address] Phone: tel: fax: [facility] [address] [place] [address] Phone: tel: Referral ID Status Reason Start Date Expiration Date Visits Re quested Visits Authorized [id number] Closed 10/19/2024 10/19/2025 1 1 Encounter Details Date Type Department Care Team (Latest Contact Info) Description 11/30/2024 12:00 PM EVENT STAFF MEMBER - 11/30/2024 12:24 PM EVENT STAFF MEMBER Hospital Encounter [facility] [place] [address] Yobani Lopez MD [address] [place] [address] Monochorionic diamniotic twin gestation in second [...] on file Legal Sex Female 11:44 PM EVENT STAFF MEMBER Gender Identity Not on file Sexual [...] ECHO COMPLETE Routine 11/30/2024 1 :46 PM EVENT STAFF MEMBER Monochorionic diamniotic twin gestation in second trimester documented in this encounter Results * ECHO COMPLETE (11/30/2024 1:46 PM EVENT STAFF MEMBER) Anatomical Region Laterality Modality Echocardiography 11/30/2024 1:31 PM EVENT STAFF MEMBER Narrative 11/30/2024 2:02 PM EVENT STAFF MEMBER [id number]^ZAK^YOBANI Study ID: [id number] [facility] [place] [address] Echocardiogram Name: HEATHER CHÁVEZ Study Date: 11/30/2024 01:31 PM Patient Location: [facility] Gender: Female Patient Class: Outpatient : [id number] Age: 29 yrs Ordering Provider: YOBANI LOPEZ Referring Provider: YOBANI LOPEZ Performed By: Daphney Dao RDCS Reading Physician: Luc Dominguez MD Reason For Study: Monochorionic diamniotic twin gestation in second trimester Data: Number of fetuses: This is a twin gestation. Due date: 04/07/2025. Gestational age: 21w5d. Delivery at: [facility]. Specific Indication: echocardiogram performed for monochorionic diamniotic [...] to the left atrium. There is laminar dfjlq-hu-ptjv shunting across the foramen ovale. Atrioventricular valves: [...] Procedure Note Luc Dominguez MD - 11/30/2024 [id number] [facility] [id number]^ZAK^YOBANI Study ID:[id number] [facility] [address] [place] [address] Echocardiogram Name: HEATHER CHÁVEZ Study Date: 11/30/2024 01:31 PM Patient Location: [facility] Gender: Female Patient Class:Outpatient : [id number] Age: 29 yrs Ordering Provider: YOBANI LOPEZ Referring Provider: YOBANI LOPEZ Performed By: Daphney Dao [facility] Reading Physician: Luc Dominguez MD Reason For Study: Monochorionic diamniotic twin gestation in secondtrimester Data: Number of fetuses: This is a twin gestation. Due date: 04/07/2025. Gestational age: 21w5d. Delivery at: [facility]. Specific Indication: echocardiogram performed formonochorionic diamniotic twins. [...] in to the left atrium. There is zooyvwyukxxx-ko-fypc shunting across the foramen ovale. Atrioventricular valves: [...] Luc Dominguez MD 11/30/2024 02:02 PM Yobani Lopez MD CV PEDS ECHO ORDERABLES Edite d Result - Final documented in this encounter Visit Diagnoses Diagnosis Monochorionic diamniotic twin gestation in second trimester documented in this encounter Care Teams Clip On Sunglasses Inspector Relationship Specialty Start Date End Date No Ref-Primary, Physician PCP - General 12/04/21 Flower Amato MD [address] [facility] [address] [place] [address] Assigned OBGYN Provider 11/22/24 documented as of this encounter
--- OUTSIDE RECORDS SUMMARY | 2024-12-23 23:20 | XMS_ITS | Encounter Summary ---
Author Organization [place] Address [address] [facility] [place] [address] Care Team Providers Care Handmade Tile Artist Name Role Phone No Ref-Primary, Physician Primary Care Provider Reason for Visit * Reason Comments Ultrasound RL2/UAR/MCA: TTTS ch luigi; mono/di twins Encounter Details Date Type Department Care Team (Latest Contact Info) Description 11/08/2024 10:00 AM INSURANCE DEFENSE ATTORNEY Office Visit [facility] M[facility] Medicine [facility] [place] [address] [facility] [address] [place] [address] Flor Dickson MD [address] [place] [address] Monochorionic diamniotic twin gestation in [...] on file Legal Sex Female 11:44 PM INSURANCE DEFENSE ATTORNEY Gender Identity Not on file Sexual Orientation [...] Center. Flor Dickson M.D. Maternal -Medicine Specialist RANCE DEFENSE ATTORNEY documented in this encounter Nursing Notes * Joceline Bejarano, RN - 11/08/2024 10:00 AM CST Heather seen in clinic today for TTTS check at 18w4d gestation due to mono/di twin gestation (see report/notes). Pt denies bldg/lof/change in discharge/contractions. Dr. Dickson reviewed US. Plan to return on 11/14 for L2. Pt discharged stable and ambulatory. Joceline Bejarano RN RANCE DEFENSE ATTORNEY documented in this encounter Plan of Treatment Not on file documented as of this encounter Visit Diagnoses Diagnosis Monochorionic diamniotic twin gestation in second trimester- Primary Discordant growth in twin gestation, fetus 2 of multiple gestation documented in this encounter Care Teams Handmade Tile Artist Relationship Specialty Start Date End Date No Ref-Primary, Physician PCP - General 12/04/21 documented as of this encounter
--- OUTSIDE RECORDS SUMMARY | 2024-12-23 23:20 | XMS_ITS | Encounter Summary ---
Author Organization [place] Address [address] [facility] [place] [address] Care Team Providers Care Route Returner Name Role Phone No Ref-Primary, Physician Primary [...] file Legal Sex Female 11:44 PM WELDING MACHINE FEEDER Gender Identity Not on file Sexual Orientation Not on file documented as of this encounter Plan of Treatment Not on file documented as of this encounter Visit Diagnoses Not on filedocumented in this encounter Care Teams Route Returner Relationship Specialty Start Date End Date No Ref-Primary, Physician PCP - General 12/04/21 documented as of this encounter
--- OUTSIDE RECORDS SUMMARY | 2024-12-23 23:20 | XMS_ITS | Encounter Summary ---
Author Organization [place] Address [address] [facility] [place] [address] Care Team Providers Care Finish Inspector Name Role Phone No Ref-Primary, Physician Primary Care Provider Flower Amato MD Unavailable [phone] Encounter Details Date Type Department Care [...] on file Legal Sex Female 11:44 PM TELEGRAPH REPEATER MECHANIC Gender Identity Not on file Sexual Orientation Not on file documented as of this encounter Plan of Treatment Not on file documented as of this encounter Visit Diagnoses Not on filedocumented in this encounter Care Teams Finish Inspector Relationship Specialty Start Date End Date No Ref-Primary, Physician PCP - General 12/04/21 Flower Amato MD [address] [place] [address] Assigned OBGYN Provider 11/22/24 documented as of this encounter
--- OUTSIDE RECORDS SUMMARY | 2024-12-23 23:20 | XMS_ITS | Encounter Summary ---
Author Organization [place] Address [address] [place] [address] Care Team Providers Care Bank Runner Name Role Phone No Ref-Primary, Physician Primary Care Provider Flower Amato MD Unavailable [phone] Reason for Referral * Diagnostic Imaging Ultrasound (Routine) - Pending Review Specialty Diagnoses / Procedures Referred By Contac t Referred To Contact Radiology. Diagnoses Monochorionic diamniotic twin gestation Procedures MFM Twins US Comprehensive F/U Diane Lopez MD [address] [place], [place] [address] [facility] [place] [address] [address] Phone: tel: fax: Referral ID Status Reason Start Date Expiration Date V isits Requested Visits Authorized [id number] Pending Review 10/19/2024 10/19/2025 1 1 E SANE Reason for Visit * Diagnostic Imaging Ultrasound (Routine) - Pending Review Specialty Diagnoses / Procedures Referred By Contac t Referred To Contact Radiology. Diagnoses Monochorionic diamniotic twin gestation Procedures MFM Twins US Comprehensive F/U Diane Lopez MD [address] [address] Phone: tel: fax: Referral ID Status Reason Start Date Expiration Date V isits Requested Visits Authorized [id number] Pending Review 10/19/2024 10/19/2025 1 1 Encounter Details Date Type Department Care Team (Latest Contact Info) Description 11/30/2024 1:31 PM NURSE SANE - 11/30/2024 11:59 PM NURSE SANE Hospital Encounter [facility] [place] [address] [place] [phone] Nicole Núñez MD [address] [place], [place] [address] Monochorionic diamniotic twin gestation in second trimester [...] file Legal Sex Female 11:44 PM NURSE SANE Gender Identity Not on file Sexual Orientation [...] US COMPREHENSIVE F/U Routine 11/30/2024 3:11 PM NURSE SANE 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 Narrative 11/30/2024 8:09 PM NURSE SANE [facility] Surveillance US ----- Pat. Name: HEATHER CHÁVEZ Study Date: 11/30/2024 2:04pm Pat. NO: [id number] Referring MD: PAMELA CUELLAR Site: Customer Care Agent: Kenyetta Lyons RDMS : 1995 Age: 29 [...] options at this time including referral to [facility] for consideration of laser procedure [...] discussed likely plan for delivery at the [place]. Return to primary provider for continued care. If you have questions regarding today's evaluation or if we can be of further service, please contact the [facility]. anomalies may be present but not detected I spent a total of 15 minutes (excluding the ultrasound interpretation) on the date of this encounter including preparing to see the patient (reviewing medical records/tests), in direct mnkn-lo-mmkj contact with the patient counseling and discussing the plan of care, documenting the visit in the electronic medical record, and communicating with other health progressive care unit registered nurse and/or care coordination. Procedure Note Nicole Núñez MD - 11/30/2024 Surveillance US ----- Pat. Name: HEATHER CHÁVEZ Study Date: 11/30/2024 2:04pm Pat. NO: [id number] Referring MD: PAMELA CUELLAR Site: Customer Care Agent: Kenyetta Lyons RDMS : 1995 Age: 29 [...] options at this time including referral to [facility] for consideration oflaser procedure to [...] We also discussed likely plan for delivery [facility]. Return to primary provider for continued care. If you have questions regarding today's evaluation or if we can be offurther service, please contact the [facility]. anomalies may be present but not detected I spent a total of 15 minutes (excluding the ultrasound interpretation) onthe date of this encounter including preparing to see the patient(reviewing medical records/tests), in direct deyz-cl-cnvv contact with the patient counseling and discussingthe plan of care, documenting the visit in the electronic medical record,and communicating with other health progressive care unit registered nurse and/or care coordination. [...] A waveand reversal. 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
--- OUTSIDE RECORDS SUMMARY | 2024-12-23 23:20 | XMS_ITS | Encounter Summary ---
Author Organization [place] Address [address] [facility] [place] [address] Care Team Providers Care Child Health Associate Name Role Phone No Ref-Primary, Physician Primary Care Provider Flower Amato MD Unavailable [phone] Reason for Referral * Diagnostic Imaging Ultrasound (Routine) - Pending Review Specialty Diagnoses / Procedures Referred By Contac t Referred To Contact Radiology. 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 Intrauterine growth restriction affecting antepartum care of mother in first trimester, fetus 2 Procedures MFM Twins Comprehensive F/U Nicole Núñez MD [address] [place] [address] Phone: tel: fax: Referral ID Status Reason Start Date Expiration Date V isits Requested Visits Authorized [id number] Pending Review 11/22/2024 11/22/2025 1 1 PHONE SEX WORKER Reason for Visit * Reason Comments Ultrasound RL2/UAR/MCA: mono/di twins, TTTS check/ sFGR fetus 2 Encounter Details Date Type Department Care Team (Latest Contact Info) Description 11/22/2024 10:00 AM TELEPHONE SEX WORKER Office Visit [facility] [place] [address] [facility] [address] [place] [address] Nicole Núñez MD [address] [place] [address] Monochorionic diamniotic twin gestation in second trimester [...] on file Legal Sex Female 11:44 PM TELEPHONE SEX WORKER Gender Identity Not on file Sexual [...] the [facility]. Nicole Núñez MD Clothing Worker, HACKSAW INSPECTOR M[facility] PHONE SEX WORKER documented in this encounter Nursing Notes * [...] discharged stable and ambulatory. Joceline Bejarano RN PHONE SEX WORKER PHONE SEX WORKER documented in this encounter Plan of Treatment Not on file documented as of this encounter Results * MFM Twins US Comprehensive F/U (12/05/2024 12:28 PM TELEPHONE SEX WORKER) Anatomical Region Laterality Modality Ultrasound 12/05/2024 11:3 2 AM TELEPHONE SEX WORKER Impressions 12/05/2024 1:37 PM TELEPHONE SEX WORKER IMPRESSION ----- Monochorionic diamniotic twin gestation at [...] the a-wave today. Narrative 12/05/2024 1:37 PM TELEPHONE SEX WORKER [facility] Surveillance US ----- Pat. Name: HEATHER CHÁVEZ Study Date: 12/05/2024 11:32am Pat. NO: [id number] Referring MD: PAMELA CUELLAR Site: Welder Fabricator: Piper Huynh RDMS : 1995 Age: 29 [...] the patient (reviewing medical records/tests), in direct opkj-eo-mnec contact with the patient during the visit counseling and discussing the plan of care and documenting the visit in the electronic medical record. Procedure Note Jesus Harmon MD - 12/05/2024 Surveillance US ----- Pat. Name: HEATHER CHÁVEZ Study Date: 12/05/2024 11:32am Pat. NO: [id number] Referring MD: PAMELA CUELLAR Site: Welder Fabricator: Piper Huynh RDMS : 1995 Age: 29 [...] see the patient(reviewing medical records/tests), in direct wmde-yz-nxxf contact with the patient during the visitcounseling [...] in the a-wave today. 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
--- OUTSIDE RECORDS SUMMARY | 2024-12-23 23:20 | XMS_ITS | Encounter Summary ---
Author Organization [place] Address [address] [place] [address] [place] [address] Care Team Providers Care Information Assoc Name Role Phone No Ref-Primary, Physician Primary Care Provider Flower Amato MD Unavailable [phone] Encounter Details Date Type Department Care Team (Late st Contact Info) Description 12/20/2024 9:35 AM SUPERVISOR CANVAS PRODUCTS Ancillary Procedure [facility] [address] [place] [address] Social History Tobacco Use Types Packs/Day Years Used Date Smoking Tobacco: Never Smokeless Tobacco: Never Alcohol Use Standard Drinks/Week Comments Never 0 (1 standard drink = 0.6 oz pur e alcohol) PHQ-2 Answer Date Recorded PHQ-2 Score 2 12/10/2024 Adolescent Education Answer Date Record ed Getting [...] Answer Date Recorded Do you have housing? (Housin g is defined as stable permanent housing and does not include staying ouside in a car, in a tent, in an abandoned building, in an overnight intermediate, or couch-surfing.) No 12/10/2024 Are you worried [...] file Legal Sex Female 11:44 PM SUPERVISOR CANVAS PRODUCTS Gender Identity Not on file Sexual Orientation Not on file documented as of this encounter Plan of Treatment Not on file documented as of this encounter Procedures Procedure Name Priority Date/Time Associated Diagnosis Comments POC US GUIDANCE NEEDLE PLACEMENT Routine 12/20/2024 9:33 AM SUPERVISOR CANVAS PRODUCTS documented in this encounter Results * POC US Guidance Needle Placement (12/20/2024 9:33 AM SUPERVISOR CANV[employer] PRODUCTS) Anatomical Region Laterality Modality Other Impressions 12/20/2024 9:33 AM SUPERVISOR CANVAS PRODUCTS Bilateral transverus abdominal plane block. Narrative 12/20/2024 9:33 AM SUPERVISOR CANVAS PRODUCTS Bilateral transverus abdominal plane block. Evangelina Helm MD IMG POCUS Final Result documented in this encounter Visit Diagnoses Not on filedocumented in this encounter Additional Health Concerns Assessment Noted Time PHQ-9 Depression Total Score: 7 12/10/19 25 2:56 PM SUPERVISOR CANVAS PRODUCTS documented as of this encounter Care Teams Information Assoc Relationship Specialty Start Date End Date No Ref-Primary, Physician PCP - General 12/04/21 Flower Amato MD [address] [facility] [address] [place] [address] Assigned OBGYN Provider 11/22/24 documented as of this encounter
--- OUTSIDE RECORDS SUMMARY | 2024-12-23 23:20 | XMS_ITS | Encounter Summary ---
Author Organization [facility] Address [address] [place] [address] Care Team Providers Care Boiler Cleaner Name Role Phone No Ref-Primary, Physician Primary Care Provider Reason for Referral * Diagnostic Imaging Ultrasound (Routine) - Pending Review Specialty Diagnoses / Procedures Referred By Noa lilly Referred To Contact Radiology. Diagnoses Monochorionic diamniotic twin gestation Procedures MFM Twins Comprehensive F/U Diane Lopez MD [address] [facility] [address] [address] Phone: tel: fax: Referral ID Status Reason Start Date Expiration Date V isits Requested Visits Authorized [id number] Pending Review 10/19/2024 10/19/2025 1 1 D PROTECTION SPECIALIST Reason for Visit * Diagnostic Imaging Ultrasound (Routine) - Pending Review Specialty Diagnoses / Procedures Referred By Noa lilly Referred To Contact Radiology. Diagnoses Monochorionic diamniotic twin gestation Procedures MFM Twins Comprehensive F/U Diane Lopez MD [address] [place] [address] [place] [address] Phone: tel: fax: Referral ID Status Reason Start Date Expiration Date V isits Requested Visits Authorized [id number] Pending Review 10/19/2024 10/19/2025 1 1 Encounter Details Date Type Department Care Team (Latest Contact Info) Description 11/08/2024 9:24 AM CHILD PROTECTION SPECIALIST - 11/08/2024 11:59 PM CHILD PROTECTION SPECIALIST Hospital Encounter [facility] [place] [address] [facility] [address] [place] [phone] Flor Dickson MD [address] [facility] [address] [place] [address] Monochorionic diamniotic twin gestation in [...] on file Legal Sex Female 11:44 PM CHILD PROTECTION SPECIALIST Gender Identity Not on file Sexual [...] US COMPREHENSIVE F/U Routine 11/08/2024 10:15 AM CHILD PROTECTION SPECIALIST Monochorionic diamniotic twin gestation in second trimester documented in this encounter Results * MFM Twins US Comprehensive F/U (11/08/2024 10:15 AM CHILD PROTECTION SPECIALIST) Anatomical Region Laterality Modality Ultrasound 11/08/2024 9:37 AM CHILD PROTECTION SPECIALIST Impressions 11/08/2024 11:28 AM CHILD PROTECTION SPECIALIST IMPRESSION ----- Monochorionic diamniotic twin gestation [...] anemia polycythemia syndrome. Narrative 11/08/2024 11:28 AM CHILD PROTECTION SPECIALIST [facility] Surveillance US ----- Pat. Name: HEATHER CHÁVEZ Study Date: 11/08/2024 9:37am Pat. NO: [id number] Referring MD: PAMELA CUELLAR Site: After School Coordinator: Chantell Jarquin RDMS : 1995 Age: 29 [...] CHÁVEZ Study Date: 11/08/2024 9:37am Pat. NO: [id number] Referring MD: PAMELA CUELLAR Site: After School Coordinator: Chantell Jarquin RDMS : 1995 Age: 29 [...] anemia polycythemia syndrome. us Diane Lopez MD [facility] US ORDERABLES Edited Result - Final documented in this encounter Visit Diagnoses Diagnosis Monochorionic diamniotic twin gestation in second trimester documented in this encounter Care Teams Boiler Cleaner Relationship Specialty Start Date End Date No Ref-Primary, Physician PCP - General 12/04/21 documented as of this encounter
--- OUTSIDE RECORDS SUMMARY | 2024-12-23 23:20 | XMS_ITS | Encounter Summary ---
Author Organization [place] Address [address] [facility] [place] [address] Care Team Providers Care Analytics Consultant Name Role Phone No Ref-Primary, Physician Primary Care Provider Flower Amato MD Unavailable [phone] Reason for Visit * Reason Comments Ultrasound F/U comp with MCA/UA R to evaluate Encounter Details Date Type Department Care Team (Late st Contact Info) Description 12/07/2024 10:45 AM HORTICULTURE/FLORICULTURE TEACHER Office Visit [facility] [place] [address] [place] [address] Jaren Rodriguez MD [address] [place] [address] Poor growth affecting management of [...] on file Legal Sex Female 11:44 PM HORTICULTURE/FLORICULTURE TEACHER Gender Identity Not on file Sexual [...] Clinical Obstetrics & Gynaecology, 49, 65-76. Vidal Calles et al. (2010). The outcome of monochorionic diamniotic twin pregnancies with selective intrauterine growth restriction. British Journal of Obstetrics and Gynecology, 203(4), 333.e1-7. Radha HALL, et al. (2018). Consensus definition of growth restriction: A Horns[place] procedure. Ultrasound in Obstetrics & Gynecology, 52(1), 24-29. Luisa M, et al. (2020). Twin complications: The risk of single intrauterine demisein monochorionic twins. Diagnosis, 40(9), 9992-1867. Boris M, et al. (2012). mortality and morbidity in [...] minutes (EXCLUDING ANY ULTRASOUND INTERPRETATION), including both vfda-ri-gujz and czp-yinx-ht-face on the date of the encounter, addressing the above diagnosis. Activities performed in this time include chart review, obtaining / reviewing history, performing a medically necessary evaluation, documentation and Charge activities: counseling, care coordination, ordering tests, and reviewing results, equivalent to medical decision making that is of high complexity. ICULTURE/FLORICULTURE TEACHER documented in this encounter Nursing Notes * Joceline Multani RN - 12/07/2024 10:45 AM CST Heather [...] this time. Pt left amb and stable. ICULTURE/FLORICULTURE TEACHER documented in this encounter Plan of Treatment Not on file documented as of this encounter Visit Diagnoses Diagnosis Poor growth affecting management of mother in second trimester, fetus 2- Primary Monochorionic diamniotic twin , antepartum Twin , antepartum documented in this encounter Care Teams Analytics Consultant Relationship Specialty Start Date End Date No Ref-Primary, Physician PCP - General 12/04/21 Flower Amato MD [address] [address] Assigned OBGYN Provider 11/22/24 documented as of this encounter
--- OUTSIDE RECORDS SUMMARY | 2024-12-23 23:20 | XMS_ITS | Encounter Summary ---
Author Organization [place] Address [address] [facility] [place] [address] Care Team Providers Care Belt Maker Helper Name Role Phone No Ref-Primary, Physician Primary Care Provider Flower Amato MD Unavailable [phone] Encounter Details Date Type Department Care [...] on file Legal Sex Female 11:44 PM POLISHER NUMERAL Gender Identity Not on file Sexual Orientation Not on file documented as of this encounter Plan of Treatment Not on file documented as of this encounter Visit Diagnoses Not on filedocumented in this encounter Care Teams Belt Maker Helper Relationship Specialty Start Date End Date No Ref-Primary, Physician PCP - General 12/04/21 Flower Amato MD [address] [place] [address] Assigned OBGYN Provider 11/22/24 documented as of this encounter
--- NOTE | 2024-12-23 23:21 | ED.GENADULT ---
HPI - General Adult General Date Seen: 12/23/24 Chief complaint: Unspecified Complaint, Adult Stated complaint: difficulty swallowing post csection 2 days ago Time Seen by Provider: 12/23/24 23:20 History of Present Illness HPI narrative: 29-year-old female with a history of asthma, hypothyroidism, GERD, anxiety, and recent twin gestation. She was developing symptoms of growth restriction with her twins so they were delivered by section at the [facility] 2 days ago. Her twins are currently in the NICU. She says that 1 of them is doing well but 1 of them has an intracranial hemorrhage. She presents to the ER here in [facility] with concerned that she is having something obstructing her esophagus and wonders if she has a hiatal hernia. She also endorses significant anxiety given her current life stressors and also anxiety centering specifically around her esophagus. Her is with her and seems supportive. She reports that she has a longstanding history of GERD, for years. She is on omeprazole 20 mg per day. She suspects that she has probably had a hiatal hernia for years but has never had an endoscopy or formal diagnosis. She has a couple of family members with hiatal hernia. Although she has had longstanding some discomfort with swallowing, she has had a significant change in her pain and ability to swallow over the past 4 weeks or so. She had had increasing trouble with esophagitis and GERD type symptoms and odynophagia for the past several weeks, perhaps 4 weeks or so. She says or long-term she had been able to eat and drink more less anything she wants. About 4 weeks ago she noted increasing pain when she tries to swallow crackers and for the past 2 weeks she has been unable to really swallow solids. She has mostly been drinking water, eating yogurt. Sometimes when she swallows she feels like she gets a discomfort in the lower esophagus as if something is clenching or her stomach is rising into her chest and sometimes she also gets a squeezing choking feeling at the top of her esophagus in her neck. She says she is having trouble eating and drinking and has actually been losing weight for the past couple of days. She says she was actually seen by and obstetric doctor when she was in the hospital at the [facility] after she delivered her baby's for this GERD. It sounds like that interaction was not helpful. She was requesting IV fluids so that she be able to stay hydrated hip produced best milk, but the OB declined order them. She then requested a GI consult but OB recommended outpatient follow-up rather than GI consult. She also says that she had a consultation with [facility] at their clinic in the [facility] a few weeks ago for these symptoms. The doctors at [facility] recommended that they hold off on endoscopy at that time. Instead, they recommend that she follow up after she delivers the baby for endoscopy. The doctors at [facility] recommended omeprazole 20 mg per day, which she has been taking. She was seen here in the ER about 2 weeks ago on 12/07. Workup showed WBC of 6.5, hemoglobin low at 9.5, platelet count 214, venous pH 747, venous pCO2 30. Sodium 134, potassium 3.7, chloride 107, bicarb 20, BUN 11, creatinine 0.4, glucose 88. LFTs were normal with a total bili of 0.2. TSH was normal at 0.408. Troponin was undetectable. CRP was less than 0.5. BNP was less than 20. Urinalysis was negative save for 2+ ketones. She came back to the ER tonight because she has discomfort in her upper and lower esophagus every time she tries to swallow anything. It is becoming increasingly painful. She wants us to do a scan or endoscopy in the ER tonight to see if she has a hiatal hernia. She is very anxious about hiatal hernia and worried that she does not want her stomach to bulge up into her chest. She says she has had workup in the past for these symptoms with EKGs, chest CT, and has not been found to have any heart or lung problems. Related Data Home Medications ?Medication ?Instructions ?Recorded ?Confirmed ferrous gluconate 225 mg (27 mg 225 mg PO QDAY 07/16/24 12/01/24 iron) tablet docosahexaenoic acid 200 mg mg PO 08/27/24 11/28/24 capsule ( DHA) Previous Rx's ?Medication ?Instructions ?Recorded omeprazole 20 mg capsule,delayed 20 mg PO QDAY 12 weeks #84 caps 11/28/24 release sucralfate 100 mg/mL oral 10 ml PO QID #400 mL 12/24/24 suspension (Carafate) Allergies Allergy/AdvReac Type Severity Reaction Status Date / Time cat dander Allergy Mild Verified 12/07/24 20:34 seasonal Allergy Uncoded 11/28/24 10:41 [facility] Medical History Heart murmur ?R01.1 - Cardiac murmur, unspecified (ICD-10) Hypothyroidism complicating ?O99.280 - Endocrine, nutritional and metabolic diseases complicating , unspecified trimester (ICD-10) ?E03.9 - Hypothyroidism, unspecified (ICD-10) Asthma ?J45.909 - Unspecified asthma, uncomplicated (ICD-10) Stress incontinence of urine ?N39.3 - Stress incontinence (female) (male) (ICD-10) Low ferritin level ?R79.0 - Abnormal level of blood mineral (ICD-10) Generalized anxiety disorder ?F41.1 - Generalized anxiety disorder (ICD-10) Palpitations ?R00.2 - Palpitations (ICD-10) Precipitate labor, with delivery ?O62.3 - Precipitate labor (ICD-10) Pre-syncope ?R55 - Syncope and collapse (ICD-10) fever ?O86.4 - Pyrexia of unknown origin following delivery (ICD-10) Encounter for genetic screening ?Z13.79 - Encounter for other screening for genetic and chromosomal anomalies (ICD-10) Pharyngitis ?J02.9 - Acute pharyngitis, unspecified (ICD-10) Surgical History History of appendectomy (~12/2021) ?Z90.49 - Acquired absence of other specified parts of digestive tract (ICD-10) Family History Father Diabetes Heart disease Social History What is your current living situation?: I presently have a place to live In the past 12 months, utilities in danger of being shut off: no In past 12 months, lack of transportation kept you from medical appts, meetings, work, or getting things needed for daily living: no In the past 12 mos, have been you worried that your food would run out before you had money to buy more?: never true In the past 12 mos, the food you bought just didn't last and you didn't have money to buy more?: never true Smoking Status: Never smoker Do you use any of these nicotine containing products: None Second hand tobacco smoke exposure: No How often do you have a drink containing alcohol: never AUDIT-C Alcohol total score: 0 Non-prescribed substance use: denies use How often does anyone, including family, friends and others, physically hurt you: never How often does anyone, including family, friends and others, insult or talk down to you: never How often does anyone, including family, friends and others, threaten you with harm: never How often does anyone, including family, friends and others, scream or curse at you: never Exam Narrative: Exam Narrative: Constitutional: Appears well-developed and well-nourished. Active. She is very polite but also very anxious. Initially almost perseverating about the potential for hiatal hernia but after we discussed more, I am able to get a more detailed HPI, as above. Non-toxic appearing. HENT: Head: Atraumatic. No signs of injury. Nose: No nasal discharge. Mouth/Throat: Mucous membranes are moist. Pharynx is normal. Tonsils symmetric. Uvula midline. Airway patent. Eyes: Conjunctivae normal and EOM are normal. Pupils are equal, round, and reactive to light. Right eye exhibits no discharge. Left eye exhibits no discharge. No icterus. Neck: Normal range of motion. Neck supple. No adenopathy. No stridor. Cardiovascular: Normal rate and regular rhythm. No murmur heard. No murmurs, rubs, or gallops. Brisk capillary refill Pulmonary/Chest: Effort normal. No stridor. No respiratory distress. No wheezes.No rhonchi. No rales. Musculoskeletal: Normal range of motion. No edema. No tenderness. No deformity. Neurological: Alert. Normal strength. No cranial nerve deficit or sensory deficit. Coordination normal. GCS eye subscore is 4. GCS verbal subscore is 5. GCS motor subscore is 6. Skin: Skin is warm. No rash noted. Psych: She endorses a lot of anxiety and even in her words, ?crippling anxiety about her esophagus. She is otherwise very polite. Interacting appropriately with myself and her . The 2 of them interacts supportively together. Const: Vital Signs, click to edit/add: Vital Signs - 24 hr 12/23/24 23:30 Temperature 98.0 F Pulse Rate [Left P ulse Oximeter] 63 Respiratory Rate 16 Blood Pressure [Ri ght Upper Arm] 126/73 Pulse Oximetry 98 Oxygen Delivery Me thod Room Air Course Vital Signs Vital signs: Initial Vital Signs Temperature 98.0 F 12/23/24 23:30 Temperature Source Temporal Artery Scan 12/23/24 23:30 Pulse Rate 63 12/23/24 23:30 Pulse Rhythm Regular 12/23/24 23:30 Respiratory Rate 16 12/23/24 23:30 Blood Pressure 126/73 12/23/24 23:30 Blood Pressure Mean 90 12/23/24 23:30 Blood Pressure Position Sitting 12/23/24 23:30 Pulse Oximetry 98 12/23/24 23:30 Oxygen Delivery Method Room Air 12/23/24 23:30 Vital Signs Temperature 98.0 F 12/23/24 23:30 Pulse Rate 63 12/23/24 23:30 Respiratory Rate 16 12/23/24 23:30 Blood Pressure 126/73 12/23/24 23:30 Pulse Oximetry 98 12/23/24 23:30 Oxygen Delivery Method Room Air 12/23/24 23:30 Temperature 98.0 F 12/23/24 23:30 Pulse Rate 63 12/23/24 23:30 Respiratory Rate 16 12/23/24 23:30 Blood Pressure 126/73 12/23/24 23:30 Pulse Oximetry 98 12/23/24 23:30 Oxygen Delivery Method Room Air 12/23/24 23:30 Medical Decision Making MDM Narrative Medical decision making narrative: Pleasant 29-year-old female who had a delivery of twin pre term infants at the [facility] 2 days ago. She is under tremendous stress currently. She also has a longstanding history of GERD and notes that for the past 4 weeks she has had progressive symptoms of worsening pain with swallowing and severe choking squeezing pain that lasts for an hour to whenever she tries to eat or drink anything. She has already had workup in ERs for these symptoms and has not been found to have any life-threatening cardiopulmonary causes. She is now 2 days post . She declines workup tonight for cardiopulmonary causes of her symptoms She has also tried to follow-up outpatient with [facility], but they opted to defer an endoscopy because of her . Her symptoms have been getting worse for the past 4 weeks ago so and have particularly progressed over the past couple of days when she has been in the hospital for her Caesarean delivery for her infants. She had discussed these symptoms with her obstetrics team at the [facility], but was not able to get referral for GI there. Therefore she came here to the ER tonight with symptoms of worsening chest discomfort with swallowing I discussed with the patient and her that the differential for her symptoms is quite broad especially with her state. I would consider ACS, peripartum cardiomyopathy, DVT/PE, aspiration from intubation, among others. However the patient is confident and certain that her symptoms are due to esophagitis. Therefore we did not pursue any EKG or other workup for these other causes. In terms of her esophagus she said she had a lot of pain a couple of hours ago which she tried to eat and drink but she is currently pain-free. She is tolerating her secretions. There is no evidence for any esophageal perforation. No evidence for esophageal rupture or Boerhaave syndrome. She was initially very concerned that she might have a hiatal hernia was requesting a CT scan to look for it. I discussed with her and her that at this point the presence or absence of hiatal hernia would not change the fact that she is probably having GERD and esophagitis. Rather than do CT scan, she really would benefit from endoscopy and we need to focus on managing her symptoms more aggressively. Additionally she had a chest CT scan 3 weeks ago that showed a normal mediastinum without any masses or lymph nodes. No CT evidence for hiatal hernia on that scan. In attempt to manage her esophagus symptoms better, would recommend that she increase her dose of omeprazole from 20 mg to 40 mg daily. Also would recommend soothing medications. She is willing to take Carafate, but refuses to try GI cocktail. She says that her brother received it once and told her that gave her our him a really weird feeling in his throat. She is worried that taking a GI cocktail might trigger her anxiety. I do think with her symptoms of progressive difficulty swallowing, I am concerned about potential evolving esophageal stricture. She is not actively obstructed here in the ER [facility]. However I will place referral for outpatient EGD to be try to be done through the [facility]. Hopefully this can be done within the next day or 2. Certainly urgent EGD would be helpful because the patient needs to have the ability to swallow and eat so she can maintain hydration and energy for breast-feeding her pre term infant twins who are currently in the NICU at the [facility]. Also, even if EGD is normal, might help his switch some of her anxiety. She and her are comfortable this plan of care. Discharge Plan Discharge Clinical Impression: GERD (gastroesophageal reflux disease), Odynophagia Patient Disposition: Home, Self-Care Condition: Stable Instructions: Dysphagia (ED) Additional Instructions: Please continue on your omeprazole, but increase the dose up to 40 mg once daily. You can also use medicines such as Maalox or Tums to help with reflux Use the Carafate as needed to help coat your esophagus and soothe the pain associated with swallowing You should receive a phone call tomorrow from [facility] to schedule an outpatient endoscopy for further evaluation If you have worsening symptoms such as more persistent or severe pain, high fever, bloody vomiting, or any other problems, please come back to the emergency room right away. Activity Level: No Restrictions Discharge Diet: Regular Prescriptions: New sucralfate [Carafate] 100 mg/mL suspension 10 ml PO QID Qty: 400 0RF Rx Instructions: swish in mouth and swallow; use after food/drink No Action DHA 200 mg capsule PO omeprazole 20 mg capsule,delayed release(DR/EC) 20 mg PO QDAY 84 Days Qty: 84 0RF ferrous gluconate 225 mg (27 mg iron) tablet 225 mg PO QDAY Follow Up/Referrals: Provider,Not a Local [Primary Care Provider] - Stand Alone Forms: [employer] Info Instructions
--- OUTSIDE RECORDS SUMMARY | 2024-12-23 23:21 | XMS_ITS | Encounter Summary ---
Author Organization [facility] Address [address] [place] [address]. [place] [address] Care Team Providers Care Wind Energy Engineer Name Role Phone No Ref-Primary, Physician Primary Care Provider Flower Amato MD Unavailable [phone] Encounter Details Date Type Department Care Team (Late st Contact Info) Description 12/20/2024 11:30 AM BOTTLING EQUIPMENT SALES REPRESENTATIVE Ancillary Procedure [facility] [address] [place] [address] Eneida Sanon MD [address] [place] [address] Social History Tobacco Use Types Packs/Day Years [...] in an abandoned building, in an overnight chcf, or couch-surfing.) No 12/10/2024 Are you worried [...] on file Legal Sex Female 11:44 PM BOTTLING EQUIPMENT SALES REPRESENTATIVE Gender Identity Not on file Sexual Orientation Not on file documented as of this encounter Plan of Treatment Not on file documented as of this encounter Procedures Procedure Name Priority Date/Time Associated Diagnosis Comments POC US GUIDANCE NEEDLE PLACEMENT Routine 12/20/2024 11:16 AM BOTTLING EQUIPMENT SALES REPRESENTATIVE documented in this encounter Results * POC US Guidance Needle Placement (12/20/2024 11:16 AM BOTTLING EQUIPMENT SALES REPRESENTATIVE) Anatomical Region Laterality Modality Other Impressions 12/20/2024 11:16 AM BOTTLING EQUIPMENT SALES REPRESENTATIVE Transversus abdominus plane block, bilateral us Eneida Sanon MD IMG POCUS Final Result documented in this encounter Visit Diagnoses Not on filedocumented in this encounter Additional Health Concerns Assessment Noted Time PHQ-9 Depression Total Score: 7 12/10/19 25 2:56 PM BOTTLING EQUIPMENT SALES REPRESENTATIVE documented as of this encounter Care Teams Wind Energy Engineer Relationship Specialty Start Date End Date No Ref-Primary, Physician PCP - General 12/04/21 Flower Amato MD [address] [email or web address] [address] [place] [address] Assigned OBGYN Provider 11/22/24 documented as of this encounter
--- OUTSIDE RECORDS SUMMARY | 2024-12-23 23:21 | XMS_ITS | Encounter Summary ---
Author Organization [facility] Address [address] [place] [address]. [place] [address] Care Team Providers Care Product Management Intern Name Role Phone No Ref-Primary, Physician Primary Care Provider Flower Amato MD Unavailable [phone] Reason for Referral * Home Health Therapies & Aides (Routine: Next available opening) Specialty Diagnoses / Procedures Referred By Contac t Referred To Contact Diagnoses S/P section [address] [address] Phone: tel: fax: Referral ID Status Reason Start Date Expiration Date Visits Re quested Visits Authorized Question Answer Please see patient within 48 hours of discharge Reason for Referral /Low [facility] Supply Clinic Name and Callback Information for Results/Concerns [id number] Comments If your home visit was not scheduled during your hospital stay, you should receive a call from [facility] within 24 hours after discharge to schedule your ordered home visit. If you have not heard by then, please call [phone]. R SITE ASSESSMENT SPECIALIST Reason for Visit * Reason Comments monitoring * Auth/Cert (Routine) Specialty Diagnoses / Procedures Referred By Contac t Referred To Contact distillery miller Diagnoses Monochorionic diamniotic twin , antepartum Maternity*Rudi 04/07/25/mono/di twins [facility] [address] [place] [address] Phone: tel: Referral ID Status Reason Start Date Expiration Date Visits Re quested Visits Authorized [id number] 1 1 Encounter Details Date Type Department Care Team (Latest Contact Info) Description 12/10/2024 3:17 PM SOLAR SITE ASSESSMENT SPECIALIST - 12/23/2024 4:30 PM SOLAR SITE ASSESSMENT SPECIALIST Hospital Encounter [facility] [address] [place] [address] Jesus Harmon MD [address], [place] [id number] Karin Esteban MD [address] [place] [address] Emil Ahmadi MD [address] [place] [address] Monochorionic diamniotic twin , antepartum (Primary Dx); Gastroesophageal reflux disease without esophagitis; S/P section Discharge Disposition: Home or Self Care Social History Tobacco Use Types Packs/Day Years Used Date Smoking Tobacco: Never Smokeless Tobacco: Never Alcohol Use Standard Drinks/Week Comments Never 0 (1 standard drink = 0.6 oz pur e alcohol) PHQ-2 Answer Date Recorded PHQ-2 Score 2 12/10/2024 Dickens Depression Scale Answer Date Recorded Last EPDS [...] on file Legal Sex Female 11:44 PM SOLAR SITE ASSESSMENT SPECIALIST Gender Identity Not on file Sexual Orientation Not on file documented as of this encounter Last Filed Vital Signs Vital Sign Reading Time Taken Comments Blood Pressure 119/87 12/23/2024 9:12 AM SOLAR SITE ASSESSMENT SPECIALIST Pulse 66 12/23/2024 9:12 AM SOLAR SITE ASSESSMENT SPECIALIST Temperature 36.8 C (98.3 F) 12/23/2024 9:12 AM SOLAR SITE ASSESSMENT SPECIALIST Respiratory Rate 16 12/23/2024 9:12 AM SOLAR SITE ASSESSMENT SPECIALIST Oxygen Saturation 99% 12/22/2024 11:39 AM SOLAR SITE ASSESSMENT SPECIALIST Inhaled Oxygen Concentration - - Weight 67.4 kg (148 lb 8 oz) 12/23/2024 11:09 AM SOLAR SITE ASSESSMENT SPECIALIST Height - - Body Mass Index 24.71 12/04/2021 10:10 PM SOLAR SITE ASSESSMENT SPECIALIST documented in this encounter Discharge Instructions * Discharge Instructions* Nena Ren RN - 12/23/2024 7:48 AM SOLAR SITE ASSESSMENT SPECIALIST Images from the original note were not included. Warning Signs after Having a Baby Keep this paper on your fridge or somewhere else where you can see it. Call your provider if you have any of these symptoms up to 12 weeks after having your baby. Thoughts of hurting yourself or your baby Pain in your chest or trouble breathing Severe headache not helped by pain medicine Eyesight concerns (blurry vision, seeing spots or flashes of light, other changes to eyesight) Fainting, shaking or other signs of a seizure Call if you feel that it is an emergency. The symptoms below can happen to anyone after giving . They can be very serious. Call your provider if you have any of these warning signs. My provider???s phone number: Losing too much blood (hemorrhage) Call your provider if you soak through a pad in less than an hour or pass blood clots bigger than agolf ball. These may be signs that you are bleeding too much. Blood clots in the legs or lungs After you give , your body naturally clots its blood to help prevent blood loss. Sometimes this increased clotting can happen in other areas of the body, like the legs or lungs. This can block your blood flow and be very dangerous. Call your provider if you: Have a red, swollen spot on the back of your leg that is warm or painful when you touch it. Are coughing up blood. Infection Call your provider if you have any of these symptoms: Fever of 100.4 F (38 C) or higher. Pain or redness around your stitches if you had an incision. Any yellow, white, or green fluid coming from places where you had stitches or surgery. Mood Problems ( depression) Many people feel sad or have mood changes after having a baby. But for some people, these mood swings are worse. Call your provider right away if you feel so anxious or nervous that you can't care for yourself oryour baby. Preeclampsia (high blood pressure) Even if you didn't have high blood pressure when you were , you are at risk for the high blood pressure disease called preeclampsia. This risk can last up to 12 weeks after giving . Call your provider if you have: Pain on your right side under your rib cage Sudden swelling in the hands and face Remember: You know your body. If something doesn't feel right, get medical help. For informational purposes only. Not to replace the advice of your health care provider. Copyright 2020 [facility]. All rights reserved. Clinically reviewed by Amrita Damico RNC-OB, MSN. [employer] 213902 - Rev 12/23. Section: What to Expect at Home Your Recovery A section, or , is surgery to deliver your baby through a cut that the doctor makes in your lower belly and uterus. The cut is called an incision. You may have some pain in your lower belly and need pain medicine for 1 to 2 weeks. You can expect some vaginal bleeding for several weeks. You will probably need about 6 weeks to fully recover. It's important to take it easy while the incision heals. Avoid heavy lifting, strenuous activities,and exercises that strain the belly muscles while you recover. Ask a family member or friend for help with housework, cooking, and shopping. This care sheet gives you a general idea about how long it will take for you to recover. But each person recovers at a different pace. Follow the steps below to get better as quickly as possible. How can you care for yourself at home? Activity Rest when you feel tired. Getting enough sleep will help you recover. Try to walk each day. Start by walking a little more than you did the day before. Bit by bit, increase the amount you walk. Walking boosts blood flow and helps prevent pneumonia, constipation, and blood clots. Avoid strenuous activities, such as bicycle riding, jogging, weightlifting, and aerobic exercise, for 6 weeks or until your doctor says it is okay. Until your doctor says it is okay, do not lift anything heavier than your baby. Do not do sit-ups or other exercises that strain the belly muscles for 6 weeks or until your doctorsays it is okay. Hold a pillow over your incision when you cough or take deep breaths. This will support your belly and decrease your pain. You may shower as usual. Pat the incision dry when you are done. You will have some vaginal bleeding. Wear sanitary pads. Do not douche or use tampons until your doctor says it is okay. Ask your doctor when you can drive again. You will probably need to take at least 6 weeks off work. It depends on the type of work you do andhow you feel. Ask your doctor when it is okay for you to have sex. Diet You can eat your normal diet. If your stomach is upset, try bland, low-fat foods like plain rice, broiled chicken, toast, and yogurt. Drink plenty of fluids (unless your doctor tells you not to). You may notice that your bowel movements are not regular right after your surgery. This is common. Try to avoid constipation and straining with bowel movements. You may want to take a fiber supplement every day. If you have not had a bowel movement after a couple of days, ask your doctor about taking a mild laxative. If you are , limit alcohol. Alcohol can cause a lack of energy and other health problems for the baby when a woman drinks heavily. It can also get in the way of a mom's ability to feed her baby or to care for the child in other ways. There isn't a lot of research about exactly how much alcohol can harm a baby. Having no alcohol is the safest choice for your baby. If youchoose to have a drink now and then, have only one drink, and limit the number of occasions that you have a drink. Wait to breastfeed at least 2 hours after you have a drink to reduce the amount of alcohol the baby may get in the milk. Medicines Your doctor will tell you if and when you can restart your medicines. You will also get instructions about taking any new medicines. If you stopped taking aspirin or some other blood thinner, your doctor will tell you when to start taking it again. Take pain medicines exactly as directed. If the doctor gave you a prescription medicine for pain, take it as prescribed. If you are not taking a prescription pain medicine, ask your doctor if you can take an [id number]-[id number] medicine. If you think your pain medicine is making you sick to your stomach: Take your medicine after meals (unless your doctor has told you not to). Ask your doctor for a different pain medicine. If your doctor prescribed antibiotics, take them as directed. Do not stop taking them just because you feel better. You need to take the full course of antibiotics. Incision care If you have strips of tape on the incision, leave the tape on for a week or until it falls off. Wash the area daily with warm, soapy water, and pat it dry. Don't use hydrogen peroxide or alcohol,which can slow healing. You may cover the area with a gauze bandage if it weeps or rubs against clothing. Change the bandage every day. Keep the area clean and dry. Other instructions If you breastfeed your baby, you may be more comfortable while you are healing if you don't rest your baby on your belly. Try tucking your baby under your arm, with your baby's body along the side you will be feeding on. Support your baby's upper body with your arm. With that hand you can control your baby's head to bring your baby's mouth to your breast. This is sometimes called the Wisr hold. Follow-up care is a nixon part of your treatment and safety. Be sure to make and go to all appointments, and call your doctor if you are having problems. It's also a good idea to know your test resultsand keep a list of the medicines you take. When should you call for help? Share this information with your partner, family, or a friend. They can help you watch for warning signs. Call 911 anytime you think you may need emergency care. For example, call if: You feel you cannot stop from hurting yourself, your baby, or someone else. You passed out (lost consciousness). You have chest pain, are short of breath, or cough up blood. You have a seizure. Where to get help 24 hours a day, 7 days a week If you or someone you know talks about suicide, self-harm, a mental health crisis, a substance use crisis, or any other kind of emotional distress, get help right away. You can: Call the Suicide and Crisis Lifeline at 254. Call 2-786-092-TALK ( ). Text HOME to 538118 to access the Crisis Text Line. Consider saving these numbers in your phone. Go to [employer] for more information or to chat online. Call your doctor or blending operator now or seek immediate medical care if: You have loose stitches, or your incision comes open. You have signs of hemorrhage (too much bleeding), such as: Heavy vaginal bleeding. This means that you are soaking through one or more pads in an hour. Or youpass blood clots bigger than an egg. Feeling dizzy or lightheaded, or you feel like you may faint. Feeling so tired or weak that you cannot do your usual activities. A fast or irregular heartbeat. New or worse belly pain. You have symptoms of infection, such as: Increased pain, swelling, warmth, or redness. Red streaks leading from the incision. Pus draining from the incision. A fever. Frequent or painful urination or blood in your urine. Vaginal discharge that smells bad. New or worse belly pain. You have symptoms of a blood clot in your leg (called a deep vein thrombosis), such as: Pain in the calf, back of the knee, thigh, or groin. Swelling in the leg or groin. A color change on the leg or groin. The skin may be reddish or purplish, depending on your usual skin color. You have signs of preeclampsia, such as: Sudden swelling of your face, hands, or feet. New vision problems (such as dimness, blurring, or seeing spots). A severe headache. You have signs of heart failure, such as: New or increased shortness of breath. New or worse swelling in your legs, ankles, or feet. Sudden weight gain, such as more than 2 to 3 pounds in a day or 5 pounds in a week. Feeling so tired or weak that you cannot do your usual activities. You had spinal or epidural pain relief and have: New or worse back pain. Increased pain, swelling, warmth, or redness at the injection site. Tingling, weakness, or numbness in your legs or groin. Watch closely for changes in your health, and be sure to contact your doctor or blending operator if: Your vaginal bleeding isn't decreasing. You feel sad, anxious, or hopeless for more than a few days. You are having problems with your breasts or . Where can you learn more? Go to https://www.[employer].net/patiented Enter M806 in the search box to learn more about Section: What to Expect at Home. Current as of: February 28, 2024 Content Version: 14.3 ?? 2023 [employer]. Care instructions adapted under license by your healthcare professional. If you have questions about a medical condition or this instruction, always ask your healthcare professional. [employer] disclaims any warranty or liability for your use of this information. R SITE ASSESSMENT SPECIALIST R SITE ASSESSMENT SPECIALIST documented in this encounter Medications at Time of Discharge acetaminophen (TYLENOL) 325 MG tabletIndications: S/P section Take 3 tablets (975 mg) by mouth every 6 hours. 60 tablet 12/23/2024 alum & mag hydroxide-simethic one (MAALOX MAX) 400-400-40 MG/5ML SUSP suspensionIndicati ons:Gastroesophage al reflux disease without esophagitis Take 30 mLs by mouth every 4 hours as needed for indigestion. 100 mL 12/23/2024 calcium carbonate (TUMS) 500 MG chewable tablet Take 1 chew tab by mouth 2 times daily. Famotidine-Ca Carb-Mag Hydrox (PEPCID COMPLETE PO) Take 1 tablet by mouth daily. ferrous sulfate (FEROSUL) 325 (65 Fe) MG tabletIndications: S/P section Take 1 tablet (325 mg) by mouth daily (with breakfast). 60 tablet 12/23/2024 ibuprofen (ADVIL/MOTRIN) 800 MG tabletIndications: S/P section Take 1 tablet (800 mg) by mouth every 6 hours. 60 tablet 12/23/2024 IRON-VITAMINS PO Take by mouth. omeprazole (PRILOSEC) [address] capsule Take 20 mg by mouth daily. Vit-Fe Fumarate-FA ( VITAMINS PO) Take 1 tablet by mouth daily. senna-docusate (SENOKOT-S/PERICOL VERONICA) 8.6-50 MG tabletIndications: S/P section Take 1 tablet by mouth 2 times daily. 60 tablet 12/23/2024 documented as of this encounter Progress Notes * Aure Guevara MD - 12/23/2024 7:53 AM CST [facility] Note Name: Deandre Chávez S: Patient doing ok. She had a lot of pain in the epigastric region which radiates to her back and up her chest overnight. When she has this pain she feels that it is difficult to swallow and she sometimes feels short of breath. She had this pain for the last 1.5 months of her and was evaluated multiple times in the ED. Symptoms improve with Omeprazole, eating small meals throughout theday, and when she sits up after eating. She feels that everything has just been a lot with needing to have an emergency CS and having her babies in the NICU. She is hesitant to try any additional medications and prefers to use non-pharmacologic methods to manage the pain. She is voiding without difficulty, but reports her urine appears a little darker. She is passing flatus and had a BM. Ambulating without dizziness or lightheadedness. Tolerating small amounts of a regular diet. Lochia is light and appropriate. Infants in NICU. O: Patient Vitals for the past 24 hrs: BP Temp Temp src Pulse Resp SpO2 12/23/24 0912 119/87 98.3 ??F (36.8 ??C) Oral 66 16 -- 12/22/24 2324 115/83 98 ??F (36.7 ??C) Oral 70 20 -- 12/22/245 119/87 98.5 ??F (36.9 ??C) -- -- 22 -- 12/22/24 1139 115/71 98.3 ??F (36.8 ??C) Oral 74 24 99 % Gen: Resting comfortably, NAD CV: Regular rate, well perfused. Pulm: Non-labored breathing on room air. Abd: Soft, tender to palpation in the epigastric region, but otherwise non- tender; non-distended. Fundus below umbilicus, firm and non-tender. Incision c/d/I covered with Steri strips. Hgb: Hemoglobin Date Value Ref Range Status 12/22/2024 9.4 (L) 11.7 - 15.7 g/dL Final Assessment/Plan: Deandre Chávez 29 year old on POD#3 s/p STAT PLTCS under GETA for bradycardia with mono/di twins, s/p 10-day antepartum admission for sFGR of twin B. Likely ready for discharge later today. # cares - Rh positive - Rubella non-immune, will offer vaccine PTD - Pain: controlled with Toradol > ibuprofen, Tylenol. - Hgb 9.8 > EBL 800 (Methergine) > 9.3>10.0>9.4, thus will discharge with PO iron as Hgb <10. - GI: Bowel regimen and antiemetics PRN, simethicone PRN - : Voiding spontaneously s/p Ashley - PPX: Lovenox while inpatient, SCDs while in bed, encourage ambulation - BC: Discussed recommendation, uncertain at this time. # Epigastric pain Patient with epigastric pain during her and in the period which makes it difficult for her to swallow and causes intermittent shortness of breath. Symptoms have normally improvedwith Omeprazole and eating small meals throughout the day. She prefers to try this before any additional interventions. - Continue omeprazole - Cardiac work-up with ECG and troponin was normal overnight - Outpatient GI referral at discharge # Asthma - Continue MANAGER STERILE PROCESSING albuterol Medically Ready for Discharge: Anticipate discharge later today Sujey Lyons MD PGY1 [facility] Obstetrics, Gynecology, & Women's Health Appreciate note by Dr. Lyons. Patient has been seen and examined by me separate from the resident, agree with above note. Had episode last night what sounds like esophageal spasm, has occurred evenprior to . Meds help, trying to do small amounts of fluids. Reviewed GI evaluation oupatient. Offered trial of GI cocktail, nervous about numb feeling in throat. Will do liquid maalox on discharge instead. Reviewed discharge instructions, will follow up for incision check in 1-2 weeks Aure Guevara MD 10:33 AM R SITE ASSESSMENT SPECIALIST R SITE ASSESSMENT SPECIALIST * Jenny Newby MD - 12/21/2024 7:27 PM CST [facility] Note Name: Deandre Chávez S: Patient doing well. She reports difficulty with gas pain and incisional pain. She is voiding without difficulty. Passing flatus. Denies nausea or vomiting. Infants in NICU. O: Patient Vitals for the past 24 hrs: BP Temp Temp src Pulse Resp SpO2 Weight 12/22/24 1139 115/71 98.3 ??F (36.8 ??C) Oral 74 24 99 % -- 12/22/24 0425 113/62 -- -- 75 16 -- -- 12/21/24 2220 -- -- -- -- -- -- 68.9 kg (151 lb 14.4 oz) 12/21/24 2211 111/83 97.8 ??F (36.6 ??C) Oral 86 16 -- -- 12/21/24 1553 107/63 98.5 ??F (36.9 ??C) -- 69 16 -- -- Gen: Resting comfortably. NAD. CV: Regular rate. Well perfused. Pulm: Non-labored breathing on room air. Abd: Soft, appropriately tender, non-distended. Fundus below umbilicus, firm and non-tender. Incision covered with bandage, c/d/i. Ext: Non-tender, trace LE edema bilaterally. No intake/output data recorded. Hgb: Hemoglobin Date Value Ref Range Status 12/22/2024 10.0 (L) 11.7 - 15.7 g/dL Final Assessment/Plan: Deandre Chávez 29 year old on POD#2 s/p STAT PLTCS under GETA for bradycardia with mono/di twins, s/p 10-day antepartum admission for sFGR of twin B. Ready for discharge, patient would like to stay for baby in the NICU. We discussed that we would re discuss at lunch given she is medical stable for discharge. # management - Rh positive - Rubella non-immune, will offer vaccine PTD - Pain: Not controlled with Toradol > ibuprofen, Tylenol, and oxycodone PRN; added PRN Flexeril - Hgb 9.8 > EBL 800 (Methergine) > 9.3 will discharge with PO iron- Hgb 10 - GI: Bowel regimen and antiemetics PRN, simethicone PRN - : Voiding s/p Ashley - PPX: Lovenox, SCDs while in bed, encourage ambulation - BC: Discussed recommendation, uncertain at this time. # Asthma - Continue MANAGER STERILE PROCESSING albuterol Medically Ready for Discharge: Anticipate discharge later today vs tomorrow. Guevara Amin DO, MA [facility]- PGY3 7:29 AM December 22, 2024 [facility] staff: Appreciate note by Dr. Amin. I have seen and examined the patient without the resident. I have reviewed, edited, and agree with the note. having a really hard time sleeping d/t anxiety. Fowler like she just had a panic attack. Worried about babies- learned today that one of the girls had a brain bleed. Wants to go home, but worried about being far away. Does not like how she feels when she takes m eds for mood or sleep. Discussed using reagan like CALM or Headspace for breathing techniques. Offered meds for sleep and or anxiety. Pt currently declines. Will plan to discharge tomorrow. Jenny Newby MD, FACOG 12/22/2024 11:49 AM R SITE ASSESSMENT SPECIALIST R SITE ASSESSMENT SPECIALIST * Chantell Jolley - 12/21/2024 1:19 PM CST [facility] Progress Note, [facility] ([facility]) [facility] Supportive visit with Deandre and Los per the delivery of their twin girls Micaela and Isidra yesterday morning. Family is familiar to this customs entry writer from antepartum stay. I wished them congratulations on their girls' , and offered emotional support. Los was on thephone when I entered but joined conversation soon afterwards. Deandre was lying in bed and reports feeling anxious and weird, describing this experience as out of body. She identifies her minimal sle ep/deep exhaustion as a likely factor, as well as the emotional experience of her STAT yesterday. She reflected, It's like I want to visit the NICU, but I also don't... I wish I didn't feel this way. I validated these complex feelings and we discussed self compassion and gentleness as she navigates very tender moments. Mu-Ism suze continues to be a primary support for Deandre and Los as they make sense of this premature . They ask for prayer that both girls remain stable over the weekend, reporting Micaela to be struggling with her BP currently. They also request prayer for continued healing for Deandre, and for Los, that God continues to be glorified through this, and that I not be tempted to despair. As it was prenatally, Deandre and Los are intentional in choosing hopefulness and gratitude, we prayed to make it to 22 weeks, and here we are. While focusing on optimism, their spiritual framework is also supportive of realistic understanding, and Deandre prays for a blackburn mind for herself in the comingdays. As noted in initial assessment, family does not currently have a suze community. I let them know that chaplains are available all weekend should they so need, but left them with my prayers and wishes for a restful and healing weekend for their entire family. I will plan to follow up again next week. Cahntell Jolley MDiv Associate Spray Rig Operator Pager [phone] Reachable by [employer] * [facility] remains available 23/05 for emergent requests/referrals, either by having the switchboard pagethe on-call varnish maker helper or by entering an ALEX/STAT consult in [place] [facility] (this will also page the on-call varnish maker helper). Routine [facility] consults receive an initial response within 24 hours.* R SITE ASSESSMENT SPECIALIST R SITE ASSESSMENT SPECIALIST * Jenny Newby MD - 12/21/2024 7:12 AM CST [facility] Note Name: Deandre Chávez S: Patient is feeling ok. She reports difficulty with gas pain and incisional pain. She only slept 2 hours because it was hard to get comfortable. She is voiding without difficulty. Passing flatus. Denies nausea or vomiting. Infants in NICU. O: Patient Vitals for the past 24 hrs: BP Temp Temp src Pulse Resp SpO2 12/21/24 0813 121/69 98.5 ??F (36.9 ??C) Oral -- 16 -- 12/21/24 0210 108/61 -- Oral 58 16 -- 12/20/24 2244 109/64 98.5 ??F (36.9 ??C) Oral 80 16 -- 12/20/24 1800 116/63 -- -- -- 18 100 % 12/20/24 1700 106/58 -- -- -- 17 97 % 12/20/24 1600 109/55 -- -- -- 17 100 % 12/20/24 1507 -- -- -- -- -- 100 % 12/20/24 1506 118/59 97.7 ??F (36.5 ??C) Oral 82 16 -- 12/20/24 1500 -- -- -- -- -- 100 % 12/20/24 1359 106/80 98.2 ??F (36.8 ??C) Oral -- 16 99 % 12/20/24 1343 119/65 -- -- -- -- 100 % 12/20/24 1315 110/60 -- -- 85 16 100 % 12/20/24 1300 122/87 -- -- 80 21 100 % 12/20/24 1245 127/62 -- -- 103 17 100 % 12/20/24 1230 114/61 -- -- 80 17 100 % 12/20/24 1215 107/69 -- -- 76 17 100 % 12/20/24 1210 130/88 -- -- 92 16 100 % 12/20/24 1200 (!) 88/67 97.2 ??F (36.2 ??C) Oral 93 19 100 % 12/20/24 1125 116/73 -- -- 69 18 99 % 12/20/24 1035 106/54 -- -- -- -- 99 % 12/20/24 1020 124/70 -- -- -- -- 100 % 12/20/24 1015 125/59 -- -- -- -- 100 % 12/20/24 1000 113/55 -- -- -- -- 99 % 12/20/24 0955 126/58 -- -- -- -- 99 % 12/20/24 0950 131/69 -- -- -- -- 100 % 12/20/24 0945 118/62 -- -- -- -- 99 % 12/20/24 0940 121/71 -- -- -- -- 99 % 12/20/24 0935 112/74 -- -- -- -- 97 % 12/20/24 0930 106/65 -- -- -- -- -- Gen: Resting comfortably. NAD. CV: Regular rate. Well perfused. Pulm: Non-labored breathing on room air. Abd: Soft, appropriately tender, non-distended. Fundus below umbilicus, firm and non-tender. Incision covered with bandage, c/d/i. Ext: Non-tender, trace LE edema bilaterally. I/O last 3 completed shifts: In: 300 [I.V.:300] Out: 3150 [Urine:2350; Blood:800] Hgb: Hemoglobin Date Value Ref Range Status 12/21/2024 9.3 (L) 11.7 - 15.7 g/dL Final Assessment/Plan: Deandre Chávez 29 year old on POD #1 s/p STAT PLTCS under GETA for bradycardia with mono/di twins, s/p 10-day antepartum admission for sFGR of twin B. Stable in early postoperative period. # management - Rh positive - Rubella non-immune, will offer vaccine PTD - Pain: Not controlled with Toradol > ibuprofen, Tylenol, and oxycodone PRN; added PRN Flexeril - Hgb 9.8 > EBL 800 (Methergine) > Hemoglobin Date Value Ref Range Status 12/21/2024 9.3 (L) 11.7 - 15.7 g/dL Final will discharge with PO iron - GI: Bowel regimen and antiemetics PRN, simethicone PRN - : Voiding s/p Ashley - PPX: Lovenox, SCDs while in bed, encourage ambulation - BC: Not discussed # Asthma - Continue MANAGER STERILE PROCESSING albuterol Medically Ready for Discharge: Anticipated in 2-4 Days Maureen Cardenas MD HUMAN RESOURCES TRAINING MANAGER PGY-3 12/21/2024 7:13 AM [facility] staff: Appreciate note by Dr. Cardenas. I have seen and examined the patient without the resident. I have reviewed, edited, and agree with the note. Jenny Newby MD, FACOG 12/21/2024 8:55 AM R SITE ASSESSMENT SPECIALIST R SITE ASSESSMENT SPECIALIST * Katerina Hardy MD - 12/21/2024 6:13 AM CST Post Anesthesia Follow Up Note Patient: Deandre Chávez Patient location: floor. Chief complaint: Acute postoperative pain management s/p general anesthesia for Procedure(s) Performed: Procedure(s): section Anesthesia type: General Subjective: Pain Control: Adequate Additional ROS: She denies weakness, denies paresthesia, denies difficulties breathing or voiding, denies nausea orvomiting, and denies headache. She does complain of pruritis at this time. She is able to ambulate.She does tolerate regular diet. Objective: Respiratory Function (RR / SpO2 / Airway Patency): Satisfactory Cardiac Function (HR / Rhythm / BP): Satisfactory Strength and sensation lower extremities: Normal Site of spinal/epidural insertion: No signs of infection or inflammation. Last Vitals: BP 108/61 (BP Location: Right arm, Patient Position: Right side, Cuff Size: Adult Regular) Pulse 58 Temp 36.9 ??C (98.5 ??F) (Oral) Resp 16 Wt 72 kg (158 lb 12.8 oz) LMP 07/01/2024 SpO2 100% Unknown BMI 26.43 kg/m?? Assessment and plan: Deandre Chávez is a 29 year old female POD #1 s/p with general anesthesia (spinalwas attempted but unsuccessful in urgent setting); and single shot TAP nerve block injections. Pt is ambulating without difficulty, no weakness or paresthesias. The patient is receiving adequate incisional pain control at this time and anticipate up to 72 hours of incisional pain control. However, we further anticipate that the patient will require opioid/nonopioid analgesics for visceral and muscle pain that is not controlled with local anesthetic. In brief summary, her post-operative analgesia is adequate today. Further interventional analgesic strategies would be of little utility at this time. Thus, we recommend proceeding with PO analgesics. Thank you for including us in the care for this patient. Katerina Hardy MD Lumber Kiln Operator, CA-1, PGY-2 Cosigned by Mary Lou Abel MD at 12/21/2024 4:26 PM SOLAR SITE ASSESSMENT SPECIALIST R SITE ASSESSMENT SPECIALIST R SITE ASSESSMENT SPECIALIST Associated attestation - Mary Lou Abel MD - 12/21/2024 4:26 PM SOLAR SITE ASSESSMENT SPECIALIST Physician Attestation I agree with the information in this note. Mary Lou Abel MD * Joceline Grant MD - 12/20/2024 2:59 PM CST To bedside with Dr Ahmadi to de-brief today's events. Reviewed surgical course and intra-op findings. No questions at this time. Discussed that S team will follow patient for remainder of hospitalization. Joceline Grant MD Gun Sealing Machine Operator PGY-3 12/20/24 3:00 PM R SITE ASSESSMENT SPECIALIST * Kaia Spence RN - 12/20/2024 2:00 PM CST Data: Deandre Chávez transferred to 71 via wheelchair at 1340. Baby transferred to NICU after delivery. Action: Receiving unit notified of transfer: Yes. Patient and family notified of room change. Report given to Lizette at 1340. Belongings sent to receiving unit. Accompanied by Registered Nurse. Oriented patient to surroundings. Call light within reach. ID bands double-checked with receiving RN. Response: Patient tolerated transfer and is stable. R SITE ASSESSMENT SPECIALIST * Emil Ahmadi MD - 12/20/2024 9:52 AM CST MFM Progress Note- Acute Event Received urgent Vocera message from bedside RN at 0847 regarding variable decelerations on monitoring. 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 Bedside ultrasound performed to aid in finding heart tones for twin A. From [id number], FHT reassuring for both twins with re-positioning onto side. At 09, another twin B had another large variable lasting ~[address] Ahmadi called with status, reviewed tracing. Recommended initiation of Magnesium Sulfate for neuroprotection in the event delivery becomes indicated today. Discussed recommendation with patient who is agreeable to proceed. Discussed possibilities including ongoing decels or other concerning findings onfetal heart tracing including minimal variability that would necessitate delivery today vs ongoing reassuring heart tracing with no further decelerations in which case we would continue expectant management. If FHT remains reassuring over the course of the next hour, would initiate rescue course of betamethasone though reviewed we would not start that in the current moment given that if delivery became indicated, there would not be adequate time for benefit and it would increase possible surgical morbidity. Discussed at least 4-6h course of Magnesium today pending FHT. Plan for continuous monitoring. All questions answered to patient's satisfaction. Ate a yogurt this morning otherwise NPO- will continue during duration of close monitoring. Discussed with Dr Ahmadi who was present at bedside Joceline Grant MD Gun Sealing Machine Operator PGY-3 12/20/24 10:06 AM Addendum: Note entered late due to acute patient care needs. After above events, FHT returned to moderate variability and lacked decelerations for both twins from 9:15 AM to 1037 AM. Discussed plan with patient for ongoing expectant management, Magnesium administration, and consideration of rescue betamethasone in the evening if heart tracings remained reassuring. At 10:38 AM, twin B's heart rate noted to be in 60s. Discontinuous tracing though appears similar in morphology to deep variable deceleration. At this time, MFM team presented to bedside. Twin B's heart rate noted to be in the 60s though frequently not being traced by the monitor. Bedside ultrasound applied and confirmed bradycardia persistent for 3 minutes despite position changes. At that time, decision was made toproceed with STAT primary section. Dr Ahmadi was present for all above events and care Joceline Grant MD Gun Sealing Machine Operator PGY-3 12/20/24 2:25 PM Physician Attestation I saw this patient with the resident and agree with the resident/fellow's findings and plan of careas documented in the note. Nixon findings: I was notified of the decelerations [place] [facility] [place] transport to assess and Dr. Frank on site at labor unit. Returned after [place] cares toassess patient who had reassuring assessment x 2, but then developed terminal bradycardia that we assessed when identified. Decision made with the family to proceed with Stat when heart rate was not improving. Earlier that day she was seen by our team and was doing well. We had discussed ongoing close surveillance and plan for Doppler and US tomorrow to assess twins status. We had discussed consideration for repeat steroid course if changes in status on US tomorrow (has been just over one week) anddiscussed initiation of magnesium for neuroprotection if changes suggest increased risk of deliveryin the next 12 hours. Please see A&P for additional details of medical decision making. 60 MINUTES SPENT BY ME on the date of service doing chart review, history, exam, documentation & further activities per the note. Emil Ahmadi MD Date of Service (when I saw the patient): 12/20/24 R SITE ASSESSMENT SPECIALIST R SITE ASSESSMENT SPECIALIST R SITE ASSESSMENT SPECIALIST * Shena Eugene RN - 12/20/2024 9:35 AM CST Magnesium infusion loading dose started at 0933. VSS. Lung sounds clear throughout. Apical pulse regular. DTRs WNL. Repeat BP checks initiated. Continuous pulse oximetry monitoring initiated. R SITE ASSESSMENT SPECIALIST * Diana Kaye RD - 12/20/2024 9:18 AM CST CLINICAL NUTRITION SERVICES Reviewed nutrition risk factors due to LOS. No concerns with oral intake per razor sharpener Reviewed wt hx. No unintentional wt loss. No indication of pressure injury. Follow Up / Monitoring: RD to sign off at this time. RD may be consulted if needs arise. Diana Kaye MS, RDN, LD TCU/OB/Ortho Clinical Dietitian Available via phone and Vocera Vocera: 4B OB Clinical Dietitian Weekend/Holiday Vocera: Weekend Holiday Clinical Dietitian [Multi Site Groups] R SITE ASSESSMENT SPECIALIST * Augustina Wei CCLS - 12/19/2024 3:41 PM CST 12/19/24 1539 Child Life Location [facility] End Zone Method in-person Individuals Present Caregiver/Adult Family Member;Siblings/Child Family Members Comments (names or other info) Pt's , pt's mother, pt's children Luther (3 yo) and Laexis (5 yo) Intervention Developmental Play Developmental Play Comment Pt's family members participated in play throughout the End Zone. [place] dad played with LETICIA Jam, bubble hockey, and Minecraft on the PlayStation with volunteer Candy.Luther and grandma colored on the Jamboard, did dauber art, and colored in coloring books at the arttables with volunteer Lusia. Time Spent Direct Patient Care 110 Indirect Patient Care 5 Total Time Spent (Calc) 115 R SITE ASSESSMENT SPECIALIST * Emil Ahmadi MD - 12/19/2024 8:43 AM CST [facility] Antepartum Progress Note Subjective Doing ok this morning. Nervous about new finding of PACs on ultrasound for twin A. Wondering if this is a reason that babies would potentially need to be delivered today. Her has a root canaltoday so they are curious as to the interpretation of today's ultrasound. Otherwise, no new complications or symptoms. Objective Vitals: 12/17/241 12/17/240 12/18/24205712/18/242058 BP: 121/57 118/68 116/71 BP Location: Right arm Patient Position: Semi-Baker's Semi-Baker's Semi-Baker's Cuff Size: Adult Regular Adult Regular Adult Regular Pulse: Resp: 16 Temp: 99 ??F (37.2 ??C) 99.1 ??F (37.3 ??C) TempSrc: Oral SpO2: Weight: 72 kg (158 lb 12.8 oz) Gen: Resting comfortably, NAD CV: Regular rate and rhythm, well perfused Pulm: Non-labored breathing on room air Abd: Gravid Ext: no edema Weight: Vitals: 12/10/24 1545 12/17/24 2230 Weight: 72.6 kg (160 lb) 72 kg (158 lb 12.8 oz) SVE: 0 / 0% / -3 (cervical exam from 12/10) Membranes: intact FHT1: baseline 130 bpm, moderate variability, accelerations absent, variable decelerations (0854) FHT2: baseline 150 bpm, moderate variability, accelerations absent, no decelerations [place]: 0 contractions in 10 minutes Impression: reactive, appropriate for gestational age Labs: Rh positive, antibody negative Rubella non-immune Hepatitis B sAg NR, Hepatitis C NR, HIV NR, RPR negative GCT not yet performed GBS positive Last Pap: 07/16/25 NILM Imaging: MFM OB follow up US (12/19/24) 24w3d Fetus 1 1. A normal bladder was visualized. 2. The amniotic fluid volume appeared normal. 3. The umbilical artery Doppler studies were normal. 4. The middle cerebral artery Doppler studies were within normal limits. 5. The ductus venosus studies were within normal limits. 6. New finding of intermittent premature atrial contractions. Fetus 2 1. A normal bladder was visualized. 2. The amniotic fluid volume appeared normal. 3. The umbilical artery Doppler studies were abnormal: Intermittent Reversed End Diastolic Flow with periods of absent end diastolic flow and forward end diastolic flow. 4. The middle cerebral artery Doppler studies were at the upper limits of normal with MCA PSV rightat 1.5 MoM. 5. The ductus venosus studies showed intermittent periods of reversed a-wave as well as depressed A-wave. Today's ultrasound is again concerning for selective FGR of twin 2. Labs: CBC, Type and Screen in process Assessment/Plan 29 year old at 24w3d admitted with her monochorionic diamniotic twin now HD#10 for extended surveillance and steroid administration in the setting of 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 Deandre and Los have discussed her risks with the [facility] team in detail at previous outpatient visits, and we reiterated the increased risk for stillbirth due to reversed flow in the UA and DV of twin B on admission and again on 12/11. Wepreviously discussed the natural course of selective growth restriction and abnormal blood flow through the umbilical artery, that is measured by Doppler flow studies. We have additionally discussed the progression of elevated flow, leading to absent flow, and ultimately reversed flow in the umbilical artery. We discussed that if reverse flow worsens, we can see reversal in the flow of the ductusvenosus as well, which was seen on 12/10, however this has not been visualized since then. On admission, we discussed that if no intervention is done, eventually stillbirth will occur in twin B, thus this was the rationale for admission, betamethasone administration, and closely monitoring for progression or worsening of the heart tracing that would lead us to recommend delivery. Deandre and her partner are understandably concerned about a IUFD, which they would like to avoid as their main priority for her . We additionally discussed on admission and reiterated that the main point of admission is to prepare the babies for what will most certainly be a delivery, and to perform intensive monitoring and attempts to avoid a stillbirth. We also discussed the utility of monitoring, specifically that continuous monitoring is not realistic in terms of a prolonged hospital stay as Deandre will need to get rest. She has been undergoing TID monitoring for 1 hour increments at this time with the understanding that stillbirth could occur during a time period when she is not being monitored, as previously discussed. - S/p BMZ course (12/10, 12/11) > briefly reviewed criteria for rescue betamethasone today, no indication for administration today though will continue to monitor closely - If there is concern for impending delivery start magnesium 6 g/2 g infusion for neuroprotection prior to delivery - S/p NICU consult on 12/10, appreciate excellent cares - S/p Anesthesia consult 12/11, appreciate excellent cares - Continue regular diet at this time, will hold if concerned about need for delivery - Plan for 3x weekly ultrasounds with MCA, UA, and DV Doppler studies of both twins (next 12/21) - Reviewed findings that would prompt recommendation for delivery including non- reassuring heart tracing, etc - Consented for classical delivery, patient in agreement # Iron Deficiency Anemia Most recent Hgb 10, Ferritin 10 - S/p IV Venofer x1 > continue weekly infusions x2 (next 12/20) # GERD - Continue MANAGER STERILE PROCESSING omeprazole - Famotidine 10 mg daily - Carafate solution prn if symptoms worsen - Patient counseled on Reglan and other options, but declines due to potential side effects at thistime # Constipation - Dulcolax suppository PRN - Fleet enema PRN # Inpatient Management - Up ad favian - Regular diet at this time - SCDs - Discussed prophylactic Lovenox BID after 72 hr admission, though will defer at this time since patient is ambulatory - Q72 hour CBC type/screen # FWB - TID 1hr monitoring, longer if decelerations are present - Ultrasound surveillance plan: 3x weekly limited US w/ UAD, MCA, DV Dopplers of both twins (next 12/21); plan for repeat growth US on 12/31 - S/p betamethasone (12/10, 12/11) - Magnesium to be re-started prior to delivery - PCN prior to delivery if expecting vaginal - S/p NICU consult # Routine care - O+; Antibody negative - Rubella not immune, Hepatitis B NR, Hepatitis C NR, HIV NR, RPR negative (1st trimester and on admission), GBS: + - GCT after 24w once at least 7 days from steroid administration > will follow up dopplers on Tuesday - if no indication for rescue betamethasone, will consider GCT Tuesday - Other labs wnl - Imaging -- Dating: L=7w U/S -- Anatomy: see formal report - Immunizations: Discuss Flu, COVID, TDAP as course progresses - Pap last 07/16/24, NILM - Contraception: Will discuss - Feeding: Will discuss # Delivery Plan: - MOD: Will be primary , likely classical hysterotomy at this gestational age - TOD: pending clinical status, goal of 32 weeks - patient consented for classical C/S Patient seen and plan of care discussed with Dr. Ahmadi. Anticipate admission until after delivery. Medically Ready for Discharge: Anticipated in 5+ Days Joceline Grant MD Gun Sealing Machine Operator PGY-3 12/19/24 8:51 AM Physician Attestation I saw this patient with the resident and agree with the resident/fellow's findings and plan of careas documented in the note. Nixon findings: ongoing abnormalities of Doppler flow. New onset of intermittent PACs for twin 1 in the context of a normal cardiac evaluation previously. Will continue to follow with prolonged monitoring three times daily and consider delivery for nonreassuring status. Will hold on GCT until decision for repeat betamethasone (if worsening Dopplers and or other changes). Please see A&P for additional details of medical decision making. 30 MINUTES SPENT BY ME on the date of service doing chart review, history, exam, documentation & further activities per the note. I have personally reviewed the following data over the past 24 hrs: 5.7 \ 9.8 (L) / 215 N/A N/A N/A / N/A N/A N/A N/A \ Emil Ahmadi MD Date of Service (when I saw the patient): 12/19/24 R SITE ASSESSMENT SPECIALIST R SITE ASSESSMENT SPECIALIST R SITE ASSESSMENT SPECIALIST * Deandre Meza, CCLS - 12/18/2024 5:18 PM CST 12/18/24 1700 Child Life Location [facility] End Zone Method in-person Individuals Present Caregiver/Adult Family Member;Siblings/Child Family Members Comments (names or other info) Patients , son, and daughter. Intervention Developmental Play Developmental Play Comment Patients daughter and staff played in the sport court, while andson played on the sports simulator. Patients and son played LETICIA diane. Outcomes/Follow Up Provided Materials Outcomes Comment Patients son and daughter were provided with to go craft kits. Time Spent Direct Patient Care 25 Indirect Patient Care 5 Total Time Spent (Calc) 30 R SITE ASSESSMENT SPECIALIST * Rosalia Lopez CCLS - 12/18/2024 3:59 PM CST 12/18/24 1138 Child Life Location [facility] Birthplace Interaction Intent Follow Up/Ongoing support Method in-person Individuals Present Patient;Caregiver/Adult Family Member Comments (names or other info) Intervention Supportive Check in;Sibling/Child Family Member Support Supportive Check in CCLS checked in regarding plan for pt's kids to visit this week. CCLS provided information regarding the End Zone and other programming available. CCLS provided movies for the kids per parent request, for downtime when they visit as well. Pt and her expressed appreciation. Discussed ways to promote routine and create new routines while Deandre is hospitalized. Also provided blank Beads of Courage journal and provided some brief education regarding BOC programming for anticipated future NICU stays. Services are ongoing. Time Spent Direct Patient Care 45 Indirect Patient Care 15 Total Time Spent (Calc) 60 R SITE ASSESSMENT SPECIALIST * Chantell Jolley - 12/18/2024 11:00 AM CST SPIRITUAL HEALTH SERVICES Progress Note [facility] Antepartum Encountered Deandre and spouse Los in lounge on antepartum unit, offered check in. Deandre and Los seemed to be in good spirits as they prepared food together. They shared that their children Alexis and Carlos will be coming tonight to visit with Deandre's mom and will be here all week, which is a great source of excitement. They reflected on missing them dearly, and appreciate the assistance from [facility] to help prepare for time together in the hospital. Deandre and Los are coping well and are grounding supports to one another. They express gratitude [facility]'s flexibility and increased ability to work from the hospital. They celebrate reaching 24 weeks GA and continue to take things one day at a time, practicing thankfulness for each new day as a milestone for their babies. Suze is central to meaning making and coping. No new spiritual needs at this time, [facility] to continue following. Chantell Jolley MDiv Associate Spray Rig Operator Pager [phone] Reachable by Squabbler * [facility] remains available 23/05 for emergent requests/referrals, either by having the switchboard pagethe on-call varnish maker helper or by entering an ALEX/STAT consult in [facility] (this will also page the on-call varnish maker helper). Routine [facility] consults receive an initial response within 24 hours.* R SITE ASSESSMENT SPECIALIST * Emil Ahmadi MD - 12/18/2024 9:16 AM CST [facility] Antepartum Progress Note Subjective Feeling well today. Continues to have irregular uterine tightening - not increasing in intensity orfrequency. Denies loss of fluid and vaginal bleeding. Does have questions this morning regarding monitoring and if intermittent decelerations indicate impending clinical decompensation. Reviewed that extending monitoring is expected at this point in time and delivery timing is highly influenced by a balance of maternal/ factors. No evidence of impending decompensation at this time. Objective Vitals: 12/17/24 0919 12/17/24 1516 12/17/24 2041 12/17/24 2230 BP: 108/54 106/50 121/57 BP Location: Patient Position: Semi-Baker's Semi-Baker's Semi-Baker's Cuff Size: Adult Regular Adult Regular Adult Regular Pulse: Resp: 17 Temp: 98.7 ??F (37.1 ??C) 99 ??F (37.2 ??C) TempSrc: Oral SpO2: Weight: Gen: Resting comfortably, NAD CV: Regular rate and rhythm, well perfused Pulm: Non-labored breathing on room air Abd: Gravid, non-tender Ext: no edema Weight: Vitals: 12/10/24 1545 Weight: 72.6 kg (160 lb) SVE: 0 / 0% / -3 (cervical exam from 12/10) Membranes: intact FHT1: baseline 135 bpm, moderate variability, accelerations absent, subtle deceleration at 0915 FHT2: baseline 145 bpm, moderate variability, accelerations absent, no decelerations [place]: 0-1 contractions in 10 minutes Impression: reactive, appropriate for gestational age Labs: Rh positive, antibody negative Rubella non-immune Hepatitis B sAg NR, Hepatitis C NR, HIV NR, RPR negative GCT not yet performed GBS positive Last Pap: 07/16/25 NILM Imaging: MFM OB Comprehensive follow up US (12/17/24) 24w1d Fetus 1 Cephalic. 3VC. Circumvallate anterior placenta. MVP 7.4cm. 692g (53%tile) UA, MCA 1. A normal bladder was visualized. 2. The amniotic fluid volume appeared normal. 3. The umbilical artery Doppler studies were normal. 4. The middle cerebral artery Doppler studies were within normal limits. 5. The ductus venosus studies were within normal limits. Fetus 2 Breech. 3VC. Circumvallate anterior placenta. MVP 5.5cm. 464g (<1%tile) AC 3%tile 1. A normal bladder was visualized. 2. The amniotic fluid volume appeared normal. 3. The umbilical artery Doppler studies were abnormal: Intermittent absent and intermittent Reversed End Diastolic Flow 4. The middle cerebral artery Doppler studies were within normal limits. 5. The ductus venosus studies were stable with attenuated 'a' wave but no 'a' wave reversal. Discordance: 33% Labs: No results found for this or any previous visit (from the past 24 hours). 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 Deandre and Los have discussed her risks with the [facility] team in detail at previous outpatient visits, and we reiterated the increased risk for stillbirth due to reversed flow in the UA and DV of twin B on admission and again on 12/11. Wepreviously discussed the natural course of selective growth restriction and abnormal blood flow through the umbilical artery, that is measured by Doppler flow studies. We have additionally discussed the progression of elevated flow, leading to absent flow, and ultimately reversed flow in the umbilical artery. We discussed that if reverse flow worsens, we can see reversal in the flow of the ductusvenosus as well, which was seen on 12/10, however this has not been visualized since then. On admission, we discussed that if no intervention is done, eventually stillbirth will occur in twin B, thus this was the rationale for admission, betamethasone administration, and closely monitoring for progression or worsening of the heart tracing that would lead us to recommend delivery. Deandre and her partner are understandably concerned about a IUFD, which they would like to avoid as their main priority for her . We additionally discussed on admission and reiterated that the main point of admission is to prepare the babies for what will most certainly be a delivery, and to perform intensive monitoring and attempts to avoid a stillbirth. We also discussed the utility of monitoring, specifically that continuous monitoring is not realistic in terms of a prolonged hospital stay as Deandre will need to get rest. She has been undergoing TID monitoring for 1 hour increments at this time with the understanding that stillbirth could occur during a time period when she is not being monitored, as previously discussed. Today (12/18) discussed to expect monitoring to be extended at least once per day in an abundance of precaution though this does not necessarily indicate impending clinical decompensation. - S/p BMZ course (12/10, 12/11) - If there is concern for impending delivery start magnesium 6 g/2 g infusion for neuroprotection prior to delivery - S/p NICU consult on 12/10, appreciate excellent cares - S/p Anesthesia consult placed 12/11, appreciate excellent cares - Continue regular diet at this time, will hold if concerned about need for delivery - Plan for 3x weekly ultrasounds with MCA, UA, and DV Doppler studies of both twins (next 12/19) - Consented for classical delivery, patient in agreement # Iron Deficiency Anemia Most recent Hgb 10, Ferritin 10 - S/p IV Venofer x1 > continue weekly infusions x2 (next 12/20) # GERD - Continue MANAGER STERILE [employer]ESS[employer] omeprazole - Famotidine 10 mg daily - Carafate solution prn if symptoms worsen - Patient counseled on Reglan and other options, but declines due to potential side effects at thistime # Constipation - Dulcolax suppository PRN - Fleet enema PRN # Inpatient Management - Up ad favian - Regular diet at this time - SCDs - Discussed prophylactic Lovenox BID after 72 hr admission, though will defer at this time since patient is ambulatory - Q72 hour CBC type/screen # FWB - TID 1hr monitoring, longer if decelerations are present - Ultrasound surveillance plan: 3x weekly limited US w/ UAD, MCA, DV Dopplers of both twins (next 12/19); plan for repeat growth US on 12/31 - S/p betamethasone (12/10, 12/11) - Magnesium to be re-started prior to delivery - PCN prior to delivery if expecting vaginal - S/p NICU consult # Routine care - O+; Antibody negative - Rubella not immune, Hepatitis B NR, Hepatitis C NR, HIV NR, RPR negative (1st trimester and on admission), GBS: + - GCT after 24w once at least 7 days from steroid administration - Other labs wnl - Imaging -- Dating: L=7w U/S -- Anatomy: see formal report - Immunizations: Discuss Flu, COVID, TDAP as course progresses - Pap last 07/16/24, NILM - Contraception: Will discuss - Feeding: Will discuss # Delivery Plan: - MOD: Will be primary , likely classical hysterotomy at this gestational age - TOD: pending clinical status, goal of 32 weeks - patient consented for classical C/S Patient seen and plan of care discussed with Dr. Ahmadi. Anticipate admission until after delivery. Medically Ready for Discharge: Anticipated in 5+ Days Joceline Grant MD Gun Sealing Machine Operator PGY-3 12/18/24 9:25 AM Physician Attestation I saw this patient with the resident and agree with the resident/fellow's findings and plan of careas documented in the note. [place] findings: [place] twins with sFGR twin 2 and abnormal Doppler findings, with stable assessment not warranting delivery at this time. Discussed with the patient and her family the need for ongoing evaluation of findings to determine when delivery is warranted, with goal of 30-32 weeks if stable, given recent UA and ductus Doppler findings. 30 MINUTES SPENT BY ME on the date of service doing chart review, history, exam, documentation & further activities per the note. Emil Ahmadi MD Date of Service (when I saw the patient): 12/18/24 R SITE ASSESSMENT SPECIALIST R SITE ASSESSMENT SPECIALIST * Emil Ahmadi MD - 12/17/2024 9:23 AM CST [facility] Antepartum Progress Note Subjective Patient feeling well today. She has been able to get rest overnight, and is walking around when able. She wonders if she could continue taking her home PO iron supplementation as it did not upset herstomach. She is hesitant to proceed with another dose of IV iron since it was so painful, however her IV infiltrated with that dose. No regular contractions, vaginal bleeding, or loss of fluid. Endorses normal movement x2. Objective Vitals: 12/16/24 0855 12/16/24 1205 12/16/24 1900 12/17/24 0637 BP: 104/60 118/60 121/77 102/51 BP Location: Right arm Right arm Right arm Right arm Patient Position: Sitting Semi-Baker's Sitting Semi-Baker's Cuff Size: Adult Regular Adult Regular Adult Regular Adult Regular Pulse: Resp: Temp: 98.4 ??F (36.9 ??C) 98.6 ??F (37 ??C) 98.7 ??F (37.1 ??C) 98.7 ??F (37.1 ??C) TempSrc: Oral Oral Oral Oral SpO2: Weight: Gen: Resting comfortably, NAD CV: Regular rate and rhythm, well perfused Pulm: Non-labored breathing on room air Abd: Gravid, non-tender Ext: no edema Weight: Vitals: 12/10/24 1545 Weight: 72.6 kg (160 lb) SVE: 0 / 0% / -3 (cervical exam from 12/10) Membranes: intact FHT1: baseline 130 bpm, moderate variability, accelerations present, no decelerations FHT2: baseline 140 bpm, moderate variability, accelerations present, rare subtle late appearing deceleration at 0948, 0957 [place]: 0-1 contractions in 10 minutes Impression: reactive, appropriate for gestational age Labs: Rh positive, antibody negative Rubella non-immune Hepatitis B sAg NR, Hepatitis C NR, HIV NR, RPR negative GCT not yet performed GBS positive Last Pap: 07/16/25 NILM Imaging: M Comprehensive US (12/10/24) Fetus 1 Cardiac activity present. FHR 124 bpm. movements: present. Presentation: maternal left, cephalic Placenta: Placental site: anterior, no previa Umbilical cord: Cord vessels: 3 vessel cord. Insertion site: normal insertion Amniotic fluid: Amount of AF: normal. MVP 6.5 cm 1) bladder is visualized. 2) The amniotic fluid volume appears normal as measured by MVP. 3) The UAR Doppler waveform (performed for TTTS surveillance) is normal. 4) The MCA Doppler waveform (performed for TAPS surveillance) is normal (1.39 MoM). 5) DV waveform is normal. Fetus 2 Cardiac activity present. FHR 157 bpm. movements: present. Presentation: maternal right, breech Placenta: Placental site: anterior, no previa Umbilical cord: Cord vessels: 3 vessel cord. Insertion site: normal insertion Amniotic fluid: Amount of AF: normal. MVP 6.1 cm 1) bladder is visualized. 2) The amniotic fluid volume appears normal as measured by MVP. 3) The UAR Doppler waveform (performed for TTTS surveillance) shows forward flow with elevated PI as well as AEDF and REDF patterns consistent with FGR Type III. 4) The MCA Doppler waveform (performed for TAPS surveillance) is normal (1.3 MoM). 5) DV waveform shows episodes of reverse flow in a-wave. [facility] OB Comprehensive follow up US (12/17/24) 24w1d Fetus 1 Cephalic. 3VC. Circumvallate anterior placenta. MVP 7.4cm. 692g (53%tile) UA, MCA 1. A normal bladder was visualized. 2. The amniotic fluid volume appeared normal. 3. The umbilical artery Doppler studies were normal. 4. The middle cerebral artery Doppler studies were within normal limits. 5. The ductus venosus studies were within normal limits. Fetus 2 Breech. 3VC. Circumvallate anterior placenta. MVP 5.5cm. 464g (<1%tile) AC 3%tile 1. A normal bladder was visualized. 2. The amniotic fluid volume appeared normal. 3. The umbilical artery Doppler studies were abnormal: Intermittent absent and intermittent Reversed End Diastolic Flow 4. The middle cerebral artery Doppler studies were within normal limits. 5. The ductus venosus studies were stable with attenuated 'a' wave but no 'a' wave reversal. Discordance: 33% Labs: Recent Results (from the past 24 hours) CBC with platelets Collection Time: 12/16/24 11:00 AM Result Value Ref Range WBC Count 6.3 4.0 - 11.0 10e3/uL RBC Count 3.92 3.80 - 5.20 10e6/uL Hemoglobin 9.4 (L) 11.7 - 15.7 g/dL Hematocrit 30.7 (L) 35.0 - 47.0 % MCV 78 78 - 100 fL MCH 24.0 (L) 26.5 - 33.0 pg MCHC 30.6 (L) 31.5 - 36.5 g/dL RDW 15.1 (H) 10.0 - 15.0 % Platelet Count 207 150 - 450 10e3/uL Adult Type and Screen Collection Time: 12/16/24 11:00 AM Result Value Ref Range ABO/RH(D) O POS Antibody Screen Negative Negative SPECIMEN EXPIRATION DATE [id number] Assessment/Plan 29 year old at 24w1d admitted with her monochorionic diamniotic twin now HD#8 forextended surveillance and steroid administration in the setting of 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 Deandre and Los have discussed her risks with the [facility] team in detail at previous outpatient visits, and we reiterated the increased risk for stillbirth due to reversed flow in the UA and DV of twin B on admission and again on 12/11. Wepreviously discussed the natural course of selective growth restriction and abnormal blood flow through the umbilical artery, that is measured by Doppler flow studies. We have additionally discussed the progression of elevated flow, leading to absent flow, and ultimately reversed flow in the umbilical artery. We discussed that if reverse flow worsens, we can see reversal in the flow of the ductusvenosus as well, which was seen on 12/10, however this has not been visualized since then. On admission, we discussed that if no intervention is done, eventually stillbirth will occur in twin B, thus this was the rationale for admission, betamethasone administration, and closely monitoring for progression or worsening of the heart tracing that would lead us to recommend delivery. Deandre and her partner are understandably concerned about a IUFD, which they would like to avoid as their main priority for her . We additionally discussed on admission and reiterated that the main point of admission is to prepare the babies for what will most certainly be a delivery, and to perform intensive monitoring and attempts to avoid a stillbirth. We also discussed the utility of monitoring, specifically that continuous monitoring is not realistic in terms of a prolonged hospital stay as Deandre will need to get rest. She has been undergoing TID monitoring for 1 hour increments at this time with the understanding that stillbirth could occur during a time period when she is not being monitored, as previously discussed. - S/p BMZ course (12/10, 12/11) - If there is concern for impending delivery start magnesium 6 g/2 g infusion for neuroprotection prior to delivery - S/p NICU consult on 12/10, appreciate excellent cares - S/p Anesthesia consult placed 12/11, appreciate excellent cares - Continue regular diet at this time, will hold if concerned about need for delivery - Plan for 3x weekly ultrasounds with MCA, UA, and DV Doppler studies of both twins (next 12/19) - Consented for classical delivery, patient in agreement # Iron Deficiency Anemia Most recent Hgb 10, Ferritin 10 - S/p IV Venofer x1. Discussed benefits/alternative of continuing IV iron infusions vs restarting her home PO iron. Discussed that her pain with infusion was likely secondary to IV infiltration, and if that does not happen again the infusion will likely be quite tolerable. At this time Deandre is okaywith proceeding with weekly infusions x2 (next 12/20) # GERD Patient endorses GERD, currently managed on MANAGER STERILE PROCESSING omeprazole and small frequent meals with improvement in symptoms - Continue MANAGER STERILE PROCESSING omeprazole - Famotidine 10 mg daily - Carafate solution prn if symptoms worsen - Patient counseled on Reglan and other options, but declines due to potential side effects at thistime # Constipation - Dulcolax suppository PRN - Fleet enema PRN # Inpatient Management - Up ad favian - Regular diet at this time - SCDs - Discussed prophylactic Lovenox BID after 72 hr admission, though will defer at this time since patient is ambulatory - Q72 hour CBC type/screen # FWB - TID 1hr monitoring, longer if decelerations are present - Ultrasound surveillance plan: 3x weekly limited US w/ UAD, MCA, DV Dopplers of both twins (next 12/19); plan for repeat growth US on 12/31 - S/p betamethasone (12/10, 12/11) - Magnesium to be re-started prior to delivery - PCN prior to delivery if expecting vaginal - S/p NICU consult # Routine care - O+; Antibody negative - Rubella not immune, Hepatitis B NR, Hepatitis C NR, HIV NR, RPR negative (1st trimester and on admission), GBS: + - GCT after 24w once at least 7 days from steroid administration - Other labs wnl - Imaging -- Dating: L=7w U/S -- Anatomy: see formal report - Immunizations: Discuss Flu, COVID, TDAP as course progresses - Pap last 07/16/24, NILM - Contraception: Will discuss - Feeding: Will discuss # Delivery Plan: - MOD: Will be primary , likely classical hysterotomy at this gestational age - TOD: pending clinical status, goal of 32 weeks - patient consented for classical C/S Patient seen and plan of care discussed with Dr. Ahmadi. Anticipate admission until after delivery. Medically Ready for Discharge: Anticipated in 5+ Days Jenny De Souza MD Maternal Medicine Fellow 12/17/2024 9:33 AM Physician Attestation I saw this patient with the resident and agree with the resident/fellow's findings and plan of careas documented in the note. [place] findings: Stable but abnormal assess for twin 2. Will continue with very close daily monitoring, US 3x/weekly with goal of delivery at 30-32 weeks. 25 MINUTES SPENT BY ME on the date of service doing chart review, history, exam, documentation & further activities per the note. I have personally reviewed the following data over the past 24 hrs: 6.3 \ 9.4 (L) / 207 N/A N/A N/A / N/A N/A N/A N/A \ Emil Ahmadi MD Date of Service (when I saw the patient): 12/17/24 R SITE ASSESSMENT SPECIALIST R SITE ASSESSMENT SPECIALIST * Marly Anna, RN - 12/17/2024 7:03 AM CST Patient stable this morning. VSS, afebrile. Denies vaginal bleeding, LOF, or contractions. PIV flushed. Patient resting comfortably. R SITE ASSESSMENT SPECIALIST * Cameron Leach MD - 12/16/2024 10:56 AM CST [facility] Antepartum Progress Note Subjective Patient doing well today. She has been able to get some rest overnight and walk around the hospitalwith her partner. She is saddened that she is away from her other two kids, however is excited to see them later on this week. She would like to defer her iron infusion today, but otherwise has no other major concerns. No contractions, vaginal bleeding, or loss of fluid. Endorses normal movement x2. Objective Vitals: 12/15/24 1525 12/15/24 2158 12/15/24 2350 12/16/24 0855 BP: 102/52 104/56 109/59 104/60 BP Location: Right arm Right arm Patient Position: Semi-Baker's Sitting Cuff Size: Adult Regular Adult Regular Pulse: Resp: 16 16 16 Temp: 98.4 ??F (36.9 ??C) 98.7 ??F (37.1 ??C) 98.4 ??F (36.9 ??C) TempSrc: Oral Oral Oral SpO2: Weight: Gen: Resting comfortably, NAD CV: Regular rate and rhythm, well perfused Pulm: Non-labored breathing on room air Abd: Gravid, non-tender Weight: Vitals: 12/10/24 1545 Weight: 72.6 kg (160 lb) SVE: 0 / 0% / -3 (12/10) Membranes: intact FHT1: baseline 140 bpm, moderate variability, accelerations present, rare variable decelerations present FHT2: baseline 150 bpm, moderate variability, accelerations present, isolated decelerations (#1: 0947 to 0952; #2: 1028 to 1032) [place]: 0-1 contractions in 10 minutes Impression: reactive, appropriate for gestational age Labs: Rh positive, antibody negative Rubella non-immune Hepatitis B sAg NR, Hepatitis C NR, HIV NR, RPR negative GCT not yet performed GBS positive Last Pap: 07/16/25 NILM Imaging: [facility] Comprehensive US (12/10/24) Fetus 1 Cardiac activity present. FHR 124 bpm. movements: present. Presentation: maternal left, cephalic Placenta: Placental site: anterior, no previa Umbilical cord: Cord vessels: 3 vessel cord. Insertion site: normal insertion Amniotic fluid: Amount of AF: normal. MVP 6.5 cm 1) bladder is visualized. 2) The amniotic fluid volume appears normal as measured by MVP. 3) The UAR Doppler waveform (performed for TTTS surveillance) is normal. 4) The MCA Doppler waveform (performed for TAPS surveillance) is normal (1.39 MoM). 5) DV waveform is normal. Fetus 2 Cardiac activity present. FHR 157 bpm. movements: present. Presentation: maternal right, breech Placenta: Placental site: anterior, no previa Umbilical cord: Cord vessels: 3 vessel cord. Insertion site: normal insertion Amniotic fluid: Amount of AF: normal. MVP 6.1 cm 1) bladder is visualized. 2) The amniotic fluid volume appears normal as measured by MVP. 3) The UAR Doppler waveform (performed for TTTS surveillance) shows forward flow with elevated PI as well as AEDF and REDF patterns consistent with FGR Type III. 4) The MCA Doppler waveform (performed for TAPS surveillance) is normal (1.3 MoM). 5) DV waveform shows episodes of reverse flow in a-wave. M OB Limited US (12/17/24) Fetus 1 1. A normal bladder was visualized. 2. The amniotic fluid volume appeared normal. 3. The umbilical artery Doppler studies were. 4. The middle cerebral artery Doppler studies were within normal limits. 5. The ductus venosus studies were within normal limits. Fetus 2 1. A normal bladder was visualized. 2. The amniotic fluid volume appeared normal. 3. The umbilical artery Doppler studies were abnormal: Intermittent Reversed End Diastolic Flow 4. The middle cerebral artery Doppler studies were within normal limits. 5. DV waveform shows depressed flow in a-wave. Labs: No results found for this or any previous visit (from the past 24 hours). 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 Deandre and Los have discussed her risks with the [facility] team in detail at previous outpatient visits, and we reiterated the increased risk for stillbirth due to reversed flow in the UA and DV of twin B on admission and again on 12/11. Wepreviously discussed the natural course of selective growth restriction and abnormal blood flow through the umbilical artery, that is measured by Doppler flow studies. We have additionally discussed the progression of elevated flow, leading to absent flow, and ultimately reversed flow in the umbilical artery. We discussed that if reverse flow worsens, we can see reversal in the flow of the ductusvenosus as well, which was seen on 12/10, however this has not been visualized since then. On admission, we discussed that if no intervention is done, eventually stillbirth will occur in twin B, thus this was the rationale for admission, betamethasone administration, and closely monitoring for progression or worsening of the heart tracing that would lead us to recommend delivery. Deandre and her partner are understandably concerned about a IUFD, which they would like to avoid as their main priority for her . We additionally discussed on admission and reiterated that the main point of admission is to prepare the babies for what will most certainly be a delivery, and to perform intensive monitoring and attempts to avoid a stillbirth. We also discussed the utility of monitoring, specifically that continuous monitoring is not realistic in terms of a prolonged hospital stay as Deandre will need to get rest. She has been undergoing TID monitoring for 1 hour increments at this time with the understanding that stillbirth could occur during a time period when she is not being monitored, as previously discussed. - S/p BMZ course (12/10, 12/11) - If there is concern for impending delivery start magnesium 6 g/2 g infusion for neuroprotection prior to delivery - S/p NICU consult on 12/10, appreciate excellent cares - S/p Anesthesia consult placed 12/11, appreciate excellent cares - Continue regular diet at this time, will hold if concerned about need for delivery - Plan for 3x weekly ultrasounds with MCA, UA, and DV Doppler studies of both twins (next 12/17) - Consented for classical delivery, patient in agreement # Iron Deficiency Anemia Most recent Hgb 10, Ferritin 10 - S/p IV Venofer x1. Will plan for weekly infusions x2 (next 12/20) # GERD Patient endorses GERD, currently managed on [employer] omeprazole and small frequent meals. Discussed importance of weight gain to improve outcomes. - Continue MA[employer] omeprazole - Famotidine 10 mg daily - Carafate solution prn if symptoms worsen - Patient counseled on Reglan and other options, but declines due to potential side effects at thistime # Constipation - Dulcolax suppository PRN - Fleet enema PRN # Inpatient Management - Up ad favian - Regular diet at this time - SCDs - Discussed prophylactic Lovenox BID after 72 hr admission, though will defer at this time since patient is ambulatory - Q72 hour CBC type/screen # FWB - TID 1hr monitoring - Ultrasound surveillance plan: 3x weekly limited US w/ UAD, MCA, DV Dopplers of both twins (next 12/17); plan for repeat growth US on 12/17 - S/p betamethasone (12/10, 12/11) - Magnesium to be re-started prior to delivery - PCN prior to delivery if expecting vaginal - S/p NICU consult # Routine care - O+; Antibody negative - Rubella not immune, Hepatitis B NR, Hepatitis C NR, HIV NR, RPR negative (1st trimester and on admission), GBS: + - GCT after 24w once at least 7 days from steroid administration - Other labs wnl - Imaging -- Dating: L=7w U/S -- Anatomy: see formal report - Immunizations: Discuss Flu, COVID, TDAP as course progresses - Pap last 07/16/24, NILM - Contraception: Will discuss - Feeding: Will discuss # Delivery Plan: - MOD: Will be primary , likely classical hysterotomy at this gestational age - TOD: pending clinical status, goal of 32 weeks - patient consented for classical C/S Patient seen and plan of care discussed with Dr. Esteban. Anticipate admission until after delivery. Medically Ready for Discharge: Anticipated in 5+ Days Cameron Leach MD, MPH, MS [facility] Maternal Medicine Resident, PGY-3 12/16/2024 11:07 AM To reach the MATERNAL MEDICINE team for this patient, please page [phone] Cosigned by Karin Esteban MD at 12/16/2024 11:58 AM SOLAR SITE ASSESSMENT SPECIALIST R SITE ASSESSMENT SPECIALIST R SITE ASSESSMENT SPECIALIST Associated attestation - Karin Esteban MD - 12/16/2024 11:58 AM SOLAR SITE ASSESSMENT SPECIALIST MFM Attending Attestation I saw this patient with the resident and agree with the resident's findings and plan of care as documented in the resident's note. I personally reviewed her vital signs, medications, labs, pertinent imaging, and monitoring. In summary, Ms. Chávez is a 29 year old at 24w0d admitted with MCDA twin gestation complicated by type 3 sFGR of twin 2 (previously REDF in UA and reversed a-wave in DV). Deandre has been previously counseled on these findings and risks and has opted against fetoscopic laser as management option. Most recent imaging (12/15) showed iREDF on UA Doppler and depressed a-wave on DV Doppler for twin 2. Plan for ongoing inpatient monitoring for close /m aternal assessment. If monitoring looks more concerning may require prolonged monitoring and/or delivery discussion. BP 104/60 (BP Location: Right arm, Patient Position: Sitting, Cuff Size: Adult Regular) Pulse 70 Temp 98.4 ??F (36.9 ??C) (Oral) Resp 16 Wt 72.6 kg (160 lb) LMP 07/01/2024 SpO2 99% No BMI 26.63 kg/m?? FHT (1): 140/mod/no accel/no decel FHT (2): 150/mod/no accel/2 minute deceleration at 9:50 and 10:30 TOCO: 0/10 averaged over 30 minutes NST interpretation for today: 2 decelerations for twin 2 with reassuring monitoring over last 90 minutes -MCDA (Type 3 sFGR twin 2): 2: twin 1 521g (68%); twin 2 352g (2%); discordance 33%; 12/15: UA Dopplers twin 1 WNL; UA Doppler twin 2 iREDF + DV with depressed a-wave; TID 1 hour CTG - currently being extended due to decelerations for twin 2; q48 hour UAD, q2w growth (due 12/17); continue close inpatient management -AGUSTIN: s/p dose #1 iron sucrose 11/12, will plan weekly x3 doses -MWB: ambulating frequently, doing leg exercises, SCDs, will consider Lovenox for VTE prophylaxis with stability in FHR/Doppler findings, consented for CCD if indicated, SW following -FWB: BMZ 12/10-12/11, GBS positive, s/p NICU consult, 12/15 cephalic/cephalic Time Spent on this Encounter I spent a total of 45 minutes [id number] or coordinating care of Ms. Chávez. Over 50% of my timeon the unit was spent counseling the patient and /or coordinating care regarding diagnosis, diagnostic results, prognosis and risks and benefits of treatment options. Date of service (when I saw the patient): 12/16/2024 Karin Esteban MD Gang Saw Operator, HUMAN RESOURCES TRAINING MANAGER Maternal- Medicine [phone] (Pager) * Narda Vegas RN - 12/16/2024 6:59 AM CST Pt states she is having increase in fluid leaking and feeling her baby move less. Placed on monitor. Monitoring extended due to decreased reactivity and prolonged decel x1. Dr. Zelaya informed. Willcontinue to monitor FHT. R SITE ASSESSMENT SPECIALIST * Hue Zelaya MD - 12/15/2024 9:30 AM CST [facility] Antepartum Progress Note Subjective Patient doing well today. No specific questions or concerns. No contractions, vaginal bleeding, or loss of fluid. Endorses normal movement. Objective Vitals: 12/14/24 1545 12/14/24 2035 12/14/24 2351 12/15/24 0845 BP: 113/56 120/58 104/58 104/56 BP Location: Patient Position: Cuff Size: Pulse: Resp: 16 16 16 16 Temp: 98.1 ??F (36.7 ??C) 98.2 ??F (36.8 ??C) 98.4 ??F (36.9 ??C) 98.7 ??F (37.1 ??C) TempSrc: Oral Oral Oral Oral SpO2: Weight: Gen: Resting comfortably, NAD CV: Regular rate and rhythm, well perfused Pulm: Non-labored breathing on room air Abd: Gravid, non-tender Weight: Vitals: 12/10/24 1545 Weight: 72.6 kg (160 lb) SVE: 0 / 0% / -3 (12/10) Membranes: intact FHT1: baseline 130 bpm, moderate variability, accelerations present, rare variable decelerations present FHT2: baseline 135 bpm, moderate variability, accelerations present, decelerations absent [place]: 0-1 contractions in 10 minutes Impression: reactive, appropriate for gestational age Labs: Rh positive, antibody negative Rubella non-immune Hepatitis B sAg NR, Hepatitis C NR, HIV NR, RPR negative GCT not yet performed GBS positive Last Pap: 07/16/25 NILM Imaging: MFM Comprehensive US (12/10/24) Fetus 1 Cardiac activity present. FHR 124 bpm. movements: present. Presentation: maternal left, cephalic Placenta: Placental site: anterior, no previa Umbilical cord: Cord vessels: 3 vessel cord. Insertion site: normal insertion Amniotic fluid: Amount of AF: normal. MVP 6.5 cm 1) bladder is visualized. 2) The amniotic fluid volume appears normal as measured by MVP. 3) The UAR Doppler waveform (performed for TTTS surveillance) is normal. 4) The MCA Doppler waveform (performed for TAPS surveillance) is normal (1.39 MoM). 5) DV waveform is normal. Fetus 2 Cardiac activity present. FHR 157 bpm. movements: present. Presentation: maternal right, breech Placenta: Placental site: anterior, no previa Umbilical cord: Cord vessels: 3 vessel cord. Insertion site: normal insertion Amniotic fluid: Amount of AF: normal. MVP 6.1 cm 1) bladder is visualized. 2) The amniotic fluid volume appears normal as measured by MVP. 3) The UAR Doppler waveform (performed for TTTS surveillance) shows forward flow with elevated PI as well as AEDF and REDF patterns consistent with FGR Type III. 4) The MCA Doppler waveform (performed for TAPS surveillance) is normal (1.3 MoM). 5) DV waveform shows episodes of reverse flow in a-wave. MFM OB Limited US (12/17/24) Fetus 1 1. A normal bladder was visualized. 2. The amniotic fluid volume appeared normal. 3. The umbilical artery Doppler studies were. 4. The middle cerebral artery Doppler studies were within normal limits. 5. The ductus venosus studies were within normal limits. Fetus 2 1. A normal bladder was visualized. 2. The amniotic fluid volume appeared normal. 3. The umbilical artery Doppler studies were abnormal: Intermittent Reversed End Diastolic Flow 4. The middle cerebral artery Doppler studies were within normal limits. 5. DV waveform shows depressed flow in a-wave. Labs: No results found for this or any previous visit (from the past 24 hours). Assessment/Plan 29 year old at 23w6d admitted with her monochorionic diamniotic twin now HD#6 forextended surveillance and steroid administration in the setting of 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 Deandre and Los have discussed her risks with the MFM team in detail at previous outpatient visits, and we reiterated the increased risk for stillbirth due to reversed flow in the UA and DV of twin B on admission and again on 12/11. Wepreviously discussed the natural course of selective growth restriction and abnormal blood flow through the umbilical artery, that is measured by Doppler flow studies. We have additionally discussed the progression of elevated flow, leading to absent flow, and ultimately reversed flow in the umbilical artery. We discussed that if reverse flow worsens, we can see reversal in the flow of the ductusvenosus as well, which was seen on 12/10, but not visualized again today. On admission, we discussedthat if no intervention is done, eventually stillbirth will occur in twin B, thus this was the rationale for admission, betamethasone administration, and closely monitoring for progression or worsening of the heart tracing that would lead us to recommend delivery. Deandre and her partner are understandably concerned about a IUFD, which they would like to avoid as their main priority for her . We additionally discussed on admission and reiterated that the main point of admission is to prepare the babies for what will most certainly be a delivery, and to perform intensive monitoring and attempts to avoid a stillbirth. We also discussed the utility of monitoring, specifically that continuous monitoring is not realistic in terms of a prolonged hospital stay as Deandre will need to get rest. We discussed that given current reassuring monitoring, it would be reasonable to transition from continuous monitoring to TID monitoring for 1 hour increments at a time. Discussed that if we make this change, there is a possibility that stillbirth could occur during a time period when she is not being monitored. After shared decision making, decided to transition to TID monitoring with the understanding that if non-reassuring status is identifiedthat we would transition to more prolonged monitoring again. - S/p BMZ course (12/10, 12/11) - If there is concern for impending delivery start magnesium 6 g/2 g infusion for neuroprotection prior to delivery - S/p NICU consult on 12/10, appreciate excellent cares - S/p Anesthesia consult placed 12/11, appreciate excellent cares - Continue regular diet at this time, will hold if concerned about need for delivery - Plan for 3x weekly ultrasounds with MCA, UA, and DV Doppler studies of both twins (next 12/17) - Consented for classical delivery, patient in agreement # GERD Patient endorses GERD, currently managed on [employer] omeprazole and small frequent meals. Discussed importance of weight gain to improve outcomes. - Continue MANA[employer] omeprazole - Famotidine 10 mg daily - Carafate solution prn if symptoms worsen - Patient counseled on Reglan and other options, but declines due to potential side effects at thistime # Constipation - Dulcolax suppository PRN - Fleet enema PRN # Inpatient Management - Up ad favian - Regular diet at this time - SCDs - Discussed prophylactic Lovenox BID after 72 hr admission, though will defer at this time since patient is ambulatory - Q72 hour CBC type/screen # FWB - TID 1hr monitoring - Ultrasound surveillance plan: 3x weekly limited US w/ UAD, MCA, DV Dopplers of both twins (next 12/17); plan for repeat growth US on 12/17 - S/p betamethasone (12/10, 12/11) - Magnesium to be re-started prior to delivery - PCN prior to delivery if expecting vaginal - S/p NICU consult # Routine care - O+; Antibody negative - Rubella not immune, Hepatitis B NR, Hepatitis C NR, HIV NR, RPR negative (1st trimester and on admission), GBS: + - GCT after 24w once at least 7 days from steroid administration - Other labs wnl - Imaging -- Dating: L=7w U/S -- Anatomy: see formal report - Immunizations: Discuss Flu, COVID, TDAP as course progresses - Pap last 07/16/24, NILM - Contraception: Will discuss - Feeding: Will discuss # Delivery Plan: - MOD: Will be primary , likely classical hysterotomy at this gestational age - TOD: pending clinical status, goal of 32 weeks - patient consented for classical C/S Patient seen and plan of care discussed with Dr. Esteban. Anticipate admission until after delivery. Medically Ready for Discharge: Anticipated in 5+ Days Hue Zelaya MD Obstetrics & Gynecology, PGY-3 12/15/2024 10:36 AM Cosigned by Karin Esteban MD at 12/15/2024 11:38 AM SOLAR SITE ASSESSMENT SPECIALIST R SITE ASSESSMENT SPECIALIST R SITE ASSESSMENT SPECIALIST Associated attestation - Karin Esteban MD - 12/15/2024 11:38 AM SOLAR SITE ASSESSMENT SPECIALIST MFM Attending Attestation I saw this patient with the resident and agree with the resident's findings and plan of care as documented in the resident's note. I personally reviewed her vital signs, medications, labs, pertinent imaging, and monitoring. In summary, Ms. Chávez is a 29 year old at 23w6d admitted with MCDA twin gestation complicated by type 3 sFGR of twin 2 (previously REDF and reversed a- wave in DV). Deandre has been previously counseled on ultrasound findings and risks and has opted against fetoscopic laser as potential management option. Most recent imaging (12/15) with twin 2 showingiREDF on UA Doppler and depressed a-wave on DV Doppler. Plan for ongoing inpatient monitoring for close /maternal assessment. If monitoring looks more concerning this may lead to prolongedmonitoring and possibly an indicated delivery. BP 104/56 Pulse 70 Temp 98.7 ??F (37.1 ??C) (Oral) Resp 16 Wt 72.6 kg (160 lb) LMP 07/01/2024 SpO2 99% No BMI 26.63 kg/m?? FHT (1): 135/mod/accel/rare shallow variable decelerations FHT (2): 140/mod/no accel/no decel TOCO: 0/10 averaged over 30 minutes NST interpretation for today: reassuring and appropriate for GA -MCDA (Type 3 sFGR twin 2): 12/03: twin 1 521g (68%); twin 2 352g (2%); discordance 33%; 12/15: UA Dopplers twin 1 WNL; iREDF twin 2 + depressed a-wave; TID 1 hour CTG; q48 hour UAD, q2w growth (due 12/17); continue close inpatient management -AGUSTIN: s/p dose #1 iron sucrose 11/12 -MWB: ambulating frequently, doing leg exercises, SCDs, will consider VTE prophylaxis with stability, consented for CCD if indicated, SW following -FWB: BMZ 12/10-12/11, GBS positive, s/p NICU consult, 12/15 cephalic/cephalic Time Spent on this Encounter I spent a total of 45 minutes [id number] or coordinating care of Ms. Chávez. Over 50% of my timeon the unit was spent counseling the patient and /or coordinating care regarding diagnosis, diagnostic results, prognosis and risks and benefits of treatment options. Date of service (when I saw the patient): 12/15/2024 Karin Esteban MD Gang Saw Operator, HUMAN RESOURCES TRAINING MANAGER Maternal- Medicine [phone] (Pager) * Guevara Amin MD - 12/14/2024 8:44 AM CST Images from the original note were not included. Maternal- Medicine Antepartum Progress Note Subjective Deandre states she is doing overall well this morning. GERD symptoms significantly improved. Contractions have improved. She is feeling regular movement x2. Objective Vitals: 12/13/24 2137 12/13/24 2152 12/13/24 2211 12/13/24 2323 BP: 108/65 106/65 128/68 109/72 BP Location: Left arm Patient Position: Semi-Baker's Cuff Size: Adult Regular Resp: 16 Temp: 98.1 ??F (36.7 ??C) TempSrc: Oral SpO2: Weight: No intake/output data recorded. No intake or output data in the 24 hours ending 12/13/24 1355 Weight: Wt Readings from Last 2 Encounters: 12/10/24 72.6 kg (160 lb) 12/10/24 72.6 kg (160 lb) Physical Exam: Gen: Resting comfortably in bed, NAD CV: RRR, well perfused Resp: CTAB, Non-labored breathing on room air Abd: Gravid, non-distended, non-tender Ext: Warm, well perfused FHT Twin A: 140 bpm, moderate variability, accelerations present FHT Twin B: 150 bpm, moderate variability, accelerations present [place]: 0 contractions in 10 minutes Impression: reactive, appropriate for gestational age Labs: No results found for this or any previous visit (from the past 24 hours). Labs: - Rh positive, Antibody negative - Rubella non-immune, Hepatitis B NR, Hepatitis C NR, HIV NR, RPR negative (1st trimester and on admission), GBS Positive - GCT at 24w if at that time - Other labs wnl - Imaging -- Dating: L=7w U/S -- Anatomy: see formal report - Immunizations: Discuss Flu, COVID as course progresses - Pap last 07/16/24, [facility] Imaging: [facility] TWIN US COMPREHENSIVE 12/11/24 Formal report pending: no further evidence of reverse flow in a-wave of DV waveform. [facility] TWIN US COMPREHENSIVE 12/13/24 Monochorionic diamniotic twin gestation at 23w 4d gestational age. Fetus 1 1. A normal bladder was visualized. 2. The amniotic fluid volume appeared normal. 3. The umbilical artery Doppler studies were. 4. The middle cerebral artery Doppler studies [...] ductus venosus studies were within normal limits. Assessment/Plan Deandre Chávez is a 29 year old at 23w4d with mono-di twins by LMP c/w 7w6d US who is HD#4 for extended surveillance and steroid administration in the setting of REDF of the UA and reversed A-wave in fetus B on US on 12/10/24 in the setting of monochorionic diamniotic twin gestation with known selective growth restriction (type III) of fetus B. Repeat ultrasound on 12/13 with evidence of forward flow with intermittent AEDF in the UAR doppler of Twin B consistent with FGR TypeIII, but with out evidence of reversed flow in the a- wave of the DV waveform. Discussed with Deandre and her partner that this improvement is likely secondary to recent betamethasone administration. 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 Deandre and Los have discussed her risks with the MFM team in detail at previous outpatient visits, and we reiterated the increased risk for stillbirth due to reversed flow in the UA and DV of twin B on admission and again on 12/11. Wepreviously discussed the natural course of selective growth restriction and abnormal blood flow through the umbilical artery, that is measured by Doppler flow studies. We have additionally discussed the progression of elevated flow, leading to absent flow, and ultimately reversed flow in the umbilical artery. We discussed that if reverse flow worsens, we can see reversal in the flow of the ductusvenosus as well, which was seen on 12/10, but not visualized again today. On admission, we discussedthat if no intervention is done, eventually stillbirth will occur in twin B, thus this was the rationale for admission, betamethasone administration, and closely monitoring for progression or worsening of the heart tracing that would lead us to recommend delivery. Deandre and her partner are understandably concerned about a IUFD, which they would like to avoid as their main priority for her . We additionally discussed on admission and reiterated that the main point of admission is to prepare the babies for what will most certainly be a delivery, and to perform intensive monitoring and attempts to avoid a stillbirth. We also discussed the utility of monitoring, specifically that continuous monitoring is not realistic in terms of a prolonged hospital stay as Deandre will need to get rest. We discussed that given current reassuring monitoring, it would be reasonable to transition from continuous monitoring to TID monitoring for 1 hour increments at a time. Discussed that if we make this change, there is a possibility that stillbirth could occur during a time period when she is not being monitored. After shared decision making, decided to transition to TID monitoring with the understanding that if non-reassuring status is identifiedthat we would transition to more prolonged monitoring again. - S/p BMZ course (12/10, 12/11) - If there is concern for impending delivery start magnesium 6 g/2 g infusion for neuroprotection prior to delivery - S/p NICU consult on 12/10, appreciate excellent cares - S/p Anesthesia consult placed 12/11, appreciate excellent cares - Continue regular diet at this time, will hold if concerned about need for delivery - Plan for 3x weekly ultrasounds with MCA, UA, and DV Doppler studies of both twins (next 12/15) - Consented for classical delivery, patient in agreement #GERD Patient endorses GERD, currently managed on [employer] omeprazole and small frequent meals. Discussed importance of weight gain to improve outcomes. - Continue MANA[employer] omeprazole - Famotidine 10 mg daily - Carafate solution prn if symptoms worsen - Patient counseled on Reglan and other options, but declines due to potential side effects at thistime #Constipation - Dulcolax suppository PRN - Fleet enema PRN # Inpatient Management - up ad favian - Regular diet at this time - SCD's - Consider prophylactic Lovenox BID after 72 hr admission pending clinical course - Q72 hour CBC type/screen # FWB - TID 1hr monitoring - Ultrasound surveillance plan: 3x weekly limited US w/ UAD, MCA, DV Dopplers of both twins (next 12/13); plan for repeat growth US on 12/17 - S/p betamethasone (12/10, 12/11) - Magnesium 6/2 to be re-started prior to delivery - PCN prior to delivery if expecting vaginal - S/p NICU consult # Routine care - O+; Antibody negative - Rubella not immune, Hepatitis B NR, Hepatitis C NR, HIV NR, RPR negative (1st trimester and on admission), GBS: + - GCT at 24w if at that time - Other labs wnl - Imaging -- Dating: L=7w U/S -- Anatomy: see formal report - Immunizations: Discuss Flu, COVID, TDAP as course progresses - Pap last 07/16/24, NILM - Contraception: Will discuss - Feeding: Will discuss # Delivery Plan: - MOD: Will be primary , likely classical hysterotomy at this gestational age - TOD: pending clinical status - patient consented for classical C/S Patient seen and plan of care discussed with Dr. Esteban. Anticipate admission until after delivery. Guevara Amin DO, MA [facility]- PGY3 8:47 AM December 14, 2024 Cosigned by Karin Esteban MD at 12/14/2024 9:45 AM SOLAR SITE ASSESSMENT SPECIALIST R SITE ASSESSMENT SPECIALIST R SITE ASSESSMENT SPECIALIST Associated attestation - Karin Esteban MD - 12/14/2024 9:45 AM SOLAR SITE ASSESSMENT SPECIALIST MFM Attending Attestation I saw this patient with the resident and agree with the resident's findings and plan of care as documented in the resident's note. I personally reviewed her vital signs, medications, labs, pertinent imaging, and monitoring. In summary, Ms. Chávez is a 29 year old at 23w5d admitted with MCDA twin gestation complicated by type 3 sFGR of twin 2 (previously REDF and reversed a- wave in DV). Patient has been previously counseled on ultrasound findings and risks. She has declined fetoscopic laser. Most recent imaging (12/13) with iAEDF and normal DV. Plan for ongoing inpatient monitoring for close /maternal assessment. If the monitoring looks more concerning thismay lead to prolonged monitoring and possibly moving towards delivery. BP 105/59 (BP Location: Right arm, Patient Position: Semi-Baker's, Cuff Size: Adult Regular) Pulse 70 Temp 98.9 ??F (37.2 ??C) (Oral) Resp 16 Wt 72.6 kg (160 lb) LMP 07/01/2024 SpO2 99% BMI 26.63 kg/m?? FHT (A): 130/mod/no accel/no decel FHT (B): 140/mod/no accel/no decel TOCO: 0/10 averaged over 30 minutes NST interpretation for today: reassuring and appropriate for GA -MCDA (Type 3 sFGR twin 2): 12/03: twin 1 521g (68%); twin 2 352g (2%); discordance 33%; 12/13: UA Dopplers twin 1 WNL; iAEDF twin 2; TID 1 hour CTG; q48 hour UAD, q2w growth; continue inpatient management -AGUSTIN: s/p dose #1 iron sucrose 11/12 -MWB: ambulation encouraged, SCDs, will consider VTE prophylaxis with stability, consented for CCD if indicated, SW following -FWB: BMZ 12/10-12/11, GBS positive, s/p NICU consult, 12/13 cephalic/cephalic Time Spent on this Encounter I spent a total of 45 minutes [id number] or coordinating care of Ms. Chávez . Over 50% of my time on the unit was spent counseling the patient and /or coordinating care regarding diagnosis, diagnostic results, prognosis and risks and benefits of treatment options. Date of service (when I saw the patient): 12/14/2024 Karin Esteban MD Gang Saw Operator, HUMAN RESOURCES TRAINING MANAGER Maternal- Medicine [phone] (Pager) * Rosalia Lopez CCLS - 12/13/2024 3:35 PM CST 12/13/24 1527 Child Life Location [facility] Birthplace Interaction Intent Follow Up/Ongoing support Method in-person Individuals Present Patient;Caregiver/Adult Family Member Comments (names or other info) Pt's present Intervention Supportive Check in Supportive Check in CCLS ran into pt and her in hallway, [facility]. [facility] were impressed with the space and expressed that it would be a fun space to bring the kids if they visit. Deandre inquired about movies available, particularly romantic comedies. CCLS provided three movies from the [facility], brought to pt's room. Deandre expressed appreciation, no other needs at this time. Time Spent Direct Patient Care 10 Indirect Patient Care 30 Total Time Spent (Calc) 40 R SITE ASSESSMENT SPECIALIST * Jenny De Souza MD - 12/13/2024 10:36 AM CST Images from the original note were not included. Maternal- Medicine Antepartum Progress Note Subjective Deandre states she is doing overall well this morning. GERD symptoms have continued to improve with smaller frequent meals throughout the day. Has had a BM since noticing some constipation. Continues tonotice irregular, non-painful uterine contractions without concerns for leakage of fluid or vaginalbleeding. She is feeling regular movement x2. Objective Vitals: 12/12/24 2045 12/12/24 2254 12/13/24 0845 12/13/24 1225 BP: 107/63 114/75 104/62 112/69 BP Location: Left arm Left arm Patient Position: Semi-Baker's Semi-Baker's Cuff Size: Adult Regular Adult Regular Resp: 18 16 Temp: 98.6 ??F (37 ??C) TempSrc: Oral SpO2: Weight: No intake/output data recorded. No intake or output data in the 24 hours ending 12/13/24 1355 Weight: Wt Readings from Last 2 Encounters: 12/10/24 72.6 kg (160 lb) 12/10/24 72.6 kg (160 lb) Physical Exam: Gen: Resting comfortably in bed, NAD CV: RRR, well perfused Resp: CTAB, Non-labored breathing on room air Abd: Gravid, non-distended, non-tender Ext: Warm, well perfused FHT Twin A: 140 bpm, moderate variability, accelerations present FHT Twin B: 145 bpm, moderate variability, accelerations present [place]: 0 contractions in 10 minutes Impression: reactive, appropriate for gestational age Labs: Recent Results (from the past 24 hours) CBC with platelets Collection Time: 12/13/24 6:44 AM Result Value Ref Range WBC Count 5.8 4.0 - 11.0 10e3/uL RBC Count 3.65 (L) 3.80 - 5.20 10e6/uL Hemoglobin 9.1 (L) 11.7 - 15.7 g/dL Hematocrit 28.7 (L) 35.0 - 47.0 % MCV 79 78 - 100 fL MCH 24.9 (L) 26.5 - 33.0 pg MCHC 31.7 31.5 - 36.5 g/dL RDW 15.0 10.0 - 15.0 % Platelet Count 190 150 - 450 10e3/uL Adult Type and Screen Collection Time: 12/13/24 6:44 AM Result Value Ref Range ABO/RH(D) O POS Antibody Screen Negative Negative SPECIMEN EXPIRATION DATE [id number] Labs: - Rh positive, Antibody negative - Rubella non-immune, Hepatitis B NR, Hepatitis C NR, HIV NR, RPR negative (1st trimester and on admission), GBS Positive - GCT at 24w if at that time - Other labs wnl - Imaging -- Dating: L=7w U/S -- Anatomy: see formal report - Immunizations: Discuss Flu, COVID as course progresses - Pap last 07/16/24, [facility] Imaging: [facility] TWIN US COMPREHENSIVE 12/11/24 Formal report pending: no further evidence of reverse flow in a-wave of DV waveform. [facility] TWIN US COMPREHENSIVE 12/13/24 Monochorionic diamniotic twin gestation at 23w 4d gestational age. Fetus 1 1. A normal bladder was visualized. 2. The amniotic fluid volume appeared normal. 3. The umbilical artery Doppler studies were. 4. The middle cerebral artery Doppler studies [...] ductus venosus studies were within normal limits. Assessment/Plan Deandre Chávez is a 29 year old at 23w4d with mono-di twins by LMP c/w 7w6d US who is HD#4 for extended surveillance and steroid administration in the setting of REDF of the UA and reversed A-wave in fetus B on US on 12/10/24 in the setting of monochorionic diamniotic twin gestation with known selective growth restriction (type III) of fetus B. Repeat ultrasound on 12/13 with evidence of forward flow with intermittent AEDF in the UAR doppler of Twin B consistent with FGR TypeIII, but with out evidence of reversed flow in the a- wave of the DV waveform. Discussed with Deandre and her partner that this improvement is likely secondary to recent betamethasone administration. 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 Deandre and Los have discussed her risks with the [facility] team in detail at previous outpatient visits, and we reiterated the increased risk for stillbirth due to reversed flow in the UA and DV of twin B on admission and again on 12/11. Wepreviously discussed the natural course of selective growth restriction and abnormal blood flow through the umbilical artery, that is measured by Doppler flow studies. We have additionally discussed the progression of elevated flow, leading to absent flow, and ultimately reversed flow in the umbilical artery. We discussed that if reverse flow worsens, we can see reversal in the flow of the ductusvenosus as well, which was seen on 12/10, but not visualized again today. On admission, we discussedthat if no intervention is done, eventually stillbirth will occur in twin B, thus this was the rationale for admission, betamethasone administration, and closely monitoring for progression or worsening of the heart tracing that would lead us to recommend delivery. Deandre and her partner are understandably concerned about a IUFD, which they would like to avoid as their main priority for her . We additionally discussed on admission and reiterated that the main point of admission is to prepare the babies for what will most certainly be a delivery, and to perform intensive monitoring and attempts to avoid a stillbirth. We also discussed the utility of monitoring, specifically that continuous monitoring is not realistic in terms of a prolonged hospital stay as Deandre will need to get rest. We discussed that given current reassuring monitoring, it would be reasonable to transition from continuous monitoring to TID monitoring for 1 hour increments at a time. Discussed that if we make this change, there is a possibility that stillbirth could occur during a time period when she is not being monitored. After shared decision making, decided to transition to TID monitoring with the understanding that if non-reassuring status is identifiedthat we would transition to more prolonged monitoring again. - S/p BMZ course (12/10, 12/11) - If there is concern for impending delivery start magnesium 6 g/2 g infusion for neuroprotection prior to delivery - S/p NICU consult on 12/10, appreciate excellent cares - S/p Anesthesia consult placed 12/11, appreciate excellent cares - Continue regular diet at this time, will hold if concerned about need for delivery - Plan for 3x weekly ultrasounds with MCA, UA, and DV Doppler studies of both twins (next 12/15) - Consented for classical delivery, patient in agreement #GERD Patient endorses GERD, currently managed on MANAGER STERILE PROCESSING omeprazole and small frequent meals. Discussed importance of weight gain to improve outcomes. - Continue MANAGER STERILE PROCESSING omeprazole - Famotidine 10 mg daily - Carafate solution prn if symptoms worsen - Patient counseled on Reglan and other options, but declines due to potential side effects at thistime #Constipation Patient endorses mild constipation. Counseled her on options including suppository or enema Currently declining intervention. Having some BMs. - Dulcolax suppository PRN - Fleet enema PRN # Inpatient Management - up ad favian - Regular diet at this time - SCD's - Consider prophylactic Lovenox BID after 72 hr admission pending clinical course - Q72 hour CBC type/screen # FWB - TID 1hr monitoring - Ultrasound surveillance plan: 3x weekly limited US w/ UAD, MCA, DV Dopplers of both twins (next 12/13); plan for repeat growth US on 12/17 - S/p betamethasone (12/10, 12/11) - Magnesium 6/ to be re-started prior to delivery - PCN prior to delivery if expecting vaginal - S/p NICU consult # Routine care - O+; Antibody negative - Rubella not immune, Hepatitis B NR, Hepatitis C NR, HIV NR, RPR negative (1st trimester and on admission), GBS: + - GCT at 24w if at that time - Other labs wnl - Imaging -- Dating: L=7w U/S -- Anatomy: see formal report - Immunizations: Discuss Flu, COVID, TDAP as course progresses - Pap last 07/16/24, NILM - Contraception: Will discuss - Feeding: Will discuss # Delivery Plan: - MOD: Will be primary , likely classical hysterotomy at this gestational age - TOD: pending clinical status - patient consented for classical C/S Patient seen and plan of care discussed with Dr. Harmon. Anticipate admission until after delivery. Jenny De Souza MD Maternal Medicine Fellow Cosigned by Jesus Harmon MD at 12/13/2024 3:35 PM SOLAR SITE ASSESSMENT SPECIALIST R SITE ASSESSMENT SPECIALIST R SITE ASSESSMENT SPECIALIST Associated attestation - Jesus Harmon MD - 12/13/2024 3:35 PM SOLAR SITE ASSESSMENT SPECIALIST Physician Attestation I saw this patient with the resident and agree with the resident/fellow's findings and plan of careas documented in the note. Nixon findings: HD#4. Patient is 29 YO at 23w4d who is admitted for attempt to optimize survival chances for both twins in MC/DA twin with selective severe FGR in Twin B with abnormalUA and DV doppler wave forms suggesting a high risk of in utero demise. The patient has been followed closely by MFM as an outpatient and has been thoroughly counseled on various treatment options and declines selective laser therapy. She was doing OP management with three times weekly US for doppler assessment of both fetus with the plan that if the doppler study showed worsening findings she would desire admission for BTMS administration and continuous EFM with plans to delivery by classical CS for FHR abnormalities. She was counseled by myself and the NICU attending last week about the high risk of morbidity and mortality with very delivery in the 22-25 week gestation and the possibility of not being able to resuscitate twin B because of very small size. Plan will be admission until delivery. Since admission, we have given the full course of BTMS on 12/10-. On 12/11/2024 we repeated doppler studies, we are seeing persistent UA doppler showing intermittent reversed diastolic flow but transient improvement in the DV dopplers with a-wave being forward flowing twin B. Today the UA dopplers are showing intermittent absent end diastolic flow but no reversal and the DV flow is normal. We discussed that this will likely be transient but likely they would become abnormal again and this will prompt further discussion about delivery. Continue EFM to one hr TID and repeat doppler studies every other day (next 12/15/2024). If the EFM looks more concerning this may lead to prolonged monitoring and possible moving towards delivery. GERD is improved today and she slept well overnight. FHT x 2 on intermittent monitoring appropriate for 23 weeks and no prolonged decels or recurrent late decels. Pos FM x 2. 35 MINUTES SPENT BY ME on the date of service doing chart review, history, exam, documentation & further activities per the note. I have personally reviewed the following data over the past 24 hrs: 5.8 \ 9.1 (L) / 190 N/A N/A N/A / N/A N/A N/A N/A \ Jesus Harmon MD Date of Service (when I saw the patient): 12/13/24 * Deandre Meza, CCLS - 12/12/2024 4:38 PM CST 12/12/24 3515 Child Life Location [facility] End Zone Interaction Intent Introduction of Services Method in-person Individuals Present Patient;Caregiver/Adult Family Member Comments (names or other info) Patient was with her . Intervention Goal Patient and were given a tour of the space, they stated their children were coming to the hospital at a different time and they wanted to see the space. Intervention Physical Space Tour Time Spent Direct Patient Care 5 Indirect Patient Care 5 Total Time Spent (Calc) 10 R SITE ASSESSMENT SPECIALIST * Rosalia Lopez CCLS - 12/12/2024 3:57 PM CST 12/12/24 1529 Child Life Location [facility] Birthplace (antepartum) Interaction Intent Introduction of Services;Initial Assessment Method in-person Individuals Present Patient Intervention Child Family Member Support Children/Family Support Comment CCLS asked Deandre to share about her family, her kids, and what they know about her and this hospitalization. Deandre welcomed conversation and provided information, including that the kids know that mom and babies need extra attention because Isidra is sick. CCLS provided guidance on why it may be in their best interest to use different language, as sick usually means a cold, or something contagious, et cetera, and provided some additional phrases to use instead. Deandre asked good questions about phrasing and terminology to use. CCLS emphasized the importance of being concrete and answering the questions the kids are asking, but not providing too complexof information if they are not asking/interested. CCLS encouraged small bits of honest information to promote the best understanding. In conversation, this customs entry writer also noticed Deandre has told the kids she is at the doctor's office so CCLS encouraged Deandre to say she is at the hospital, rather than at the doctor's office as this could create confusion and fear for their own future explosives operator appointments as they may be afraid of a prolonged stay. Deandre expressed appreciation. Discussed typicaldevelopmental stressors, the major stressor for the kids as being separation from Deandre, who is a stay at home mom. Deandre confirmed this has been difficult for her as she feels torn in wanting to be with her kids at home but knowing she is in the best place for their family. CCLS provided validation and we discussed her support system and how well supported the kids will be, even though Deandre will not be their main caregiver. We discussed the End Zone space, and talked about what a NICU stay mightlook like in regards to sibling visitation. CCLS will continue to check in and provide additional information about the NICU and what it looks like. Deandre appears to be coping appropriately at this time. She shared themes of hope and suze, while also recognizing the seriousness of the situation. Deandre expressed she is well aware of all the things that can go wrong with her and , andwould prefer if providers would stop reminding her of all of the possibilities. CCLS inquired if she feels as though she can say that in the moment, she agreed. She shared it has felt somewhat difficult to relax in her space as she doesn't want to settle in as she could have her babies at any time, though again is hopeful for a long antepartum stay. She shared that her has been able to spend time with her as well which has been a major support. CCLS provided adult coloring book, colored pencils, and a weekly Family Newsletter with programming information and the hours for the End Zone. Child life services are ongoing. Please contact this customs entry writer with needs as they arise. Time Spent Direct Patient Care 30 Indirect Patient Care 30 Total Time Spent (Calc) 60 R SITE ASSESSMENT SPECIALIST * Jenny De Souza MD - 12/12/2024 10:57 AM CST Images from the original note were not included. Maternal- Medicine Antepartum Progress Note Subjective Deandre states she is doing overall well this morning. Notes that GERD symptoms improved this morning with smaller frequent meals throughout the day. Endorses constipation with mild bloating. Continues to notice irregular, non-painful uterine contractions without concerns for leakage of fluid or vaginal bleeding. She is feeling regular movement x2. Endorses desire to stay hospitalized at this time for extended monitoring of her twins. Objective Vitals: 12/12/24 0645 12/12/24 0811 12/12/24 1200 12/12/24 1622 BP: 110/57 109/61 107/69 107/75 BP Location: Right arm Left arm Patient Position: Semi-Baker's Semi-Baker's Cuff Size: Adult Regular Adult Regular Resp: 16 18 18 18 Temp: 98.6 ??F (37 ??C) 98.1 ??F (36.7 ??C) 97.9 ??F (36.6 ??C) 98.8 ??F (37.1 ??C) TempSrc: Oral Oral Oral Oral Weight: No intake/output data recorded. Intake/Output Summary (Last 24 hours) at 12/12/2024 1137 Last data filed at 12/11/2024 1406 Gross per 24 hour Intake 650 ml Output -- Net 650 ml Weight: Wt Readings from Last 2 Encounters: 12/10/24 72.6 kg (160 lb) 12/10/24 72.6 kg (160 lb) Physical Exam: Gen: Resting comfortably in bed, NAD CV: Regular rate, well perfused Resp: Non-labored breathing on room air Abd: Gravid, non-distended, non-tender Ext: Warm, well perfused FHT Twin A: 135 bpm, moderate variability, accelerations present FHT Twin B: 140 bpm, moderate variability, accelerations present [place]: 0 contractions in 10 minutes Impression: reactive, appropriate for gestational age Labs: No new labs today GBS resulted +. Labs: - Rh positive, Antibody negative - Rubella non-immune, Hepatitis B NR, Hepatitis C NR, HIV NR, RPR negative (1st trimester and on admission), GBS Positive - GCT at 24w if at that time - Other labs wnl - Imaging -- Dating: L=7w U/S -- Anatomy: see formal report - Immunizations: Discuss Flu, COVID as course progresses - Pap last 07/16/24, NILM - Contraception: Will discuss - Feeding: Will discuss Imaging: [facility] COMPREHENSIVE 12/11/24 Formal report pending: no further evidence of reverse flow in a-wave of DV waveform. [facility] COMPREHENSIVE 12/10/24 Fetus 1 1) bladder is visualized. 2) [...] shows episodes of reverse flow in a-wave. Assessment/Plan Deandre Chávez is a 29 year old at 23w2d with mono-di twins by LMP c/w 7w6d US who is HD#3 for extended surveillance and steroid administration in the setting of REDF of the UA and reversed A-wave in fetus B on US on 12/10/24 in the setting of monochorionic diamniotic twin gestation with known selective growth restriction (type III) of fetus B. Repeat ultrasound on 12/11 with evidence of forward flow with elevated PI as well as AEDF and REDF in the UAR doppler of Twin B consistent with FGR Type III, but with out evidence of reversed flow in the a-wave of the DV waveform. Discussed with Deandre and her partner that this improvement is likely secondary to recent betamethasone a dministration. 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 Deandre and Los have discussed her risks with the M team in detail at previous outpatient visits, and we reiterated the increased risk for stillbirth due to reversed flow in the UA and DV of twin B on admission and again on 12/11. Wepreviously discussed the natural course of selective growth restriction and abnormal blood flow through the umbilical artery, that is measured by Doppler flow studies. We have additionally discussed the progression of elevated flow, leading to absent flow, and ultimately reversed flow in the umbilical artery. We discussed that if reverse flow worsens, we can see reversal in the flow of the ductusvenosus as well, which was seen on 12/10, but not visualized again today. On admission, we discussedthat if no intervention is done, eventually stillbirth will occur in twin B, thus this was the rationale for admission, betamethasone administration, and closely monitoring for progression or worsening of the heart tracing that would lead us to recommend delivery. Deandre and her partner are understandably concerned about a IUFD, which they would like to avoid as their main priority for her . We additionally discussed on admission and reiterated that the main point of admission is to prepare the babies for what will most certainly be a delivery, and to perform intensive monitoring and attempts to avoid a stillbirth. We also discussed the utility of monitoring, specifically that continuous monitoring is not realistic in terms of a prolonged hospital stay as Deandre will need to get rest. We discussed that given current reassuring monitoring, it would be reasonable to transition from continuous monitoring to TID monitoring for 1 hour increments at a time. Discussed that if we make this change, there is a possibility that stillbirth could occur during a time period when she is not being monitored. After shared decision making, decided to transition to TID monitoring with the understanding that if non-reassuring status is identifiedthat we would transition to more prolonged monitoring again. - S/p BMZ course (12/10, 12/11) - If there is concern for impending delivery start magnesium 6 g/2 g infusion for neuroprotection prior to delivery - S/p NICU consult on 12/10, appreciate excellent cares - S/p Anesthesia consult placed 12/11, appreciate excellent cares - Continue regular diet at this time, will hold if concerned about need for delivery - Plan for 3x weekly ultrasounds with MCA, UA, and DV Doppler studies of both twins (next 12/13) - Consented for classical delivery, patient in agreement #GERD Patient endorses GERD, currently managed on [employer] omeprazole and small frequent meals. Discussed importance of weight gain to improve outcomes. - Continue [employer] omeprazole - Famotidine 10 mg daily - Carafate solution prn if symptoms worsen - Patient counseled on Reglan and other options, but declines due to potential side effects at thistime #Constipation Patient endorses mild constipation. Counseled her on options including suppository or enema Currently declining intervention. - Dulcolax suppository PRN - Fleet enema PRN # Inpatient Management - up ad favian - Regular diet at this time - SCD's - Consider prophylactic Lovenox BID after 72 hr admission pending clinical course - Q72 hour CBC type/screen # FWB - TID 1hr monitoring - Ultrasound surveillance plan: 3x weekly limited US w/ UAD, MCA, DV Dopplers of both twins (next 12/13); plan for repeat growth US on 12/17 if still - S/p betamethasone (12/10, 12/11) - Magnesium 04/01 to be re-started prior to delivery - S/p NICU consult # Routine care - O+; Antibody negative - Rubella not immune, Hepatitis B NR, Hepatitis C NR, HIV NR, RPR negative (1st trimester and on admission), GBS: + - GCT at 24w if at that time - Other labs wnl - Imaging -- Dating: L=7w U/S -- Anatomy: see formal report - Immunizations: Discuss Flu, COVID, TDAP as course progresses - Pap last 07/16/24, NILM - Contraception: Will discuss - Feeding: Will discuss # Delivery Plan: - MOD: Will be primary , likely classical hysterotomy at this gestational age - TOD: pending clinical status - patient consented for classical C/S Patient seen and plan of care discussed with Dr. Harmon. Jenny De Souza MD Maternal Medicine Fellow Cosigned by Jesus Harmon MD at 12/12/2024 8:31 PM SOLAR SITE ASSESSMENT SPECIALIST R SITE ASSESSMENT SPECIALIST R SITE ASSESSMENT SPECIALIST Associated attestation - Jesus Harmon MD - 12/12/2024 8:31 PM SOLAR SITE ASSESSMENT SPECIALIST Physician Attestation I saw this patient with the resident and agree with the resident/fellow's findings and plan of careas documented in the note. Nixon findings: HD#3. Patient is 29 YO at 23w2d who is admitted for attempt to optimize survival chances for both twins in MC/DA twin with selective severe FGR in Twin B with abnormalUA and DV doppler wave forms suggesting a high risk of in utero demise. The patient has been followed closely by MFM as an outpatient and has been thoroughly counseled on various treatment options and declines selective laser therapy. She was doing OP management with three times weekly US for doppler assessment of both fetus with the plan that if the doppler study showed worsening findings she would desire admission for BTMS administration and continuous EFM with plans to delivery by classical CS for FHR abnormalities. She was counseled by myself and the NICU attending last week about the high risk of morbidity and mortality with very delivery in the 22-25 week gestation and the possibility of not being able to resuscitate twin B because of very small size. Plan will be admission until delivery. Since admission, we have given the full course of BTMS on 12/10-. On 12/11/2024 we repeated doppler studies, we are seeing persistent UA doppler showing intermittent reversed diastolic flow but transient improvement in the DV dopplers with a-wave being forward flowing twin B. We discussed that this will likely be transient but likely they would become abnormal again and this will prompt further discussion about delivery. Continue EFM to one hr TID and repeat doppler studies every other day (next 12/13/2024). If the EFM looks more concerning this may lead to prolonged monitoring and possible moving towards delivery. GERD is improved today and she slept well overnight. FHT x2 on intermittent monitoring appropriate for 23 weeks and no prolonged decels or recurrent late decels. Pos FM x 2. 35 MINUTES SPENT BY ME on the date of service doing chart review, history, exam, documentation & further activities per the note. Jesus Harmon MD Date of Service (when I saw the patient): 12/12/24 * Pushpa Siegel MD - 12/11/2024 9:51 AM CST Images from the original note were not included. Maternal- Medicine Antepartum Progress Note Subjective Deandre states she is doing overall well this morning. Encouraged to hear that there was evidence of improved dopplers on today's ultrasound without evidence of reversed flow in a-wave of the DV. Endorses that she continues to experience occasional GERD, but reports she has been able to tolerate smaller, bland meals without difficulty. Reports no further nausea or emesis this morning. Continues to notice irregular, non-painful uterine contractions without concerns for leakage of fluid or vaginal bleeding. Endorses desire to stay hospitalized at this time for extended monitoring of her twins. Objective Vitals: 12/10/24200212/10/24 2334 12/11/24 0302 12/11/24 0820 BP: 119/61 121/72 96/55 110/63 BP Location: Left arm Right arm Patient Position: Semi-Baker's Sitting Cuff Size: Adult Regular Adult Regular Resp: 18 18 20 16 Temp: 98.6 ??F (37 ??C) 98.6 ??F (37 ??C) 98.7 ??F (37.1 ??C) 97.8 ??F (36.6 ??C) TempSrc: Oral Oral Oral Oral Weight: No intake/output data recorded. Weight: Wt Readings from Last 2 Encounters: 12/10/24 72.6 kg (160 lb) 12/10/24 72.6 kg (160 lb) Physical Exam: Gen: Resting comfortably in bed, NAD CV: Regular rate, well perfused Resp: Non-labored breathing on room air Abd: Gravid, non-distended Ext: Warm, well perfused FHT Twin A: 120 bpm, moderate variability, accelerations present, intermittent variable decelerations FHT Twin B: 130 bpm, moderate variability, accelerations present, intermittent variable decelerations, rare late deceleration [place]: 2-3 contractions in 10 minutes Impression: reactive, appropriate for gestational age Labs: No new labs Labs: - Rh positive, Antibody negative - Rubella non-immune, Hepatitis B NR, Hepatitis C NR, HIV NR, RPR negative (1st trimester and on admission), GBS: collected on admission, remains in process - GCT at 24w if at that time - Other labs wnl - Imaging -- Dating: L=7w U/S -- Anatomy: see formal report - Immunizations: Discuss Flu, COVID as course progresses - Pap last 07/16/24, NILM - Contraception: Will discuss - Feeding: Will discuss Imaging: [facility] TWIN US COMPREHENSIVE 12/11/24 Formal report pending: no further evidence of reverse flow in a-wave of DV waveform. [facility] TWIN US COMPREHENSIVE 12/10/24 Fetus 1 1) bladder is visualized. 2) [...] shows episodes of reverse flow in a-wave. Assessment/Plan Deandre Chávez is a 29 year old at 23w2d with mono-di twins by LMP c/w 7w6d US who is HD#2 for extended surveillance and steroid administration in the setting of REDF of the UA and reversed A-wave in fetus B on US on 12/10/24 in the setting of monochorionic diamniotic twin gestation with known selective growth restriction (type III) of fetus B. Repeat ultrasound this morning with evidence of forward flow with elevated PI as well as AEDF and REDF in the UAR doppler of Twin B consistent with FGR Type III, but with out evidence of reversed flow in the a-wave of the DV waveform. Discussed with Deandre and her partner that this improvement is likely secondary to recent betamethasone administration. 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 Deandre and Los have discussed her risks with the [facility] team in detail at previous outpatient visits, and we reiterated the increased risk for stillbirth due to reversed flow in the UA and DV of twin B on admission and again today. We previously discussed the natural course of selective growth restriction and abnormal blood flow through the umbilical artery, that is measured by Doppler flow studies. We have additionally discussed theprogression of elevated flow, leading to absent flow, and ultimately reversed flow in the umbilicalartery. We discussed that if reverse flow worsens, we can see reversal in the flow of the ductus venosus as well, which was seen on 12/10, but not visualized again today. On admission, we discussed that if no intervention is done, eventually stillbirth will occur in twin B, thus this was the rationale for admission, betamethasone administration, and closely monitoring for progression or worsening of the heart tracing that would lead us to recommend delivery. Deandre and her partner are understandably concerned about a IUFD, which they would like to avoid as their main priority for her . We additionally discussed on admission and reiterated today that the main point of admission is to prepare the babies for what will most certainly be a delivery, and to perform intensive monitoring and attempts to avoid a stillbirth. We also discussed the utility of monitoring, specifically that continuous monitoring is not realistic in terms of a prolonged hospital stayas Deandre will need to get rest. We discussed that today given reassuring monitoring, it would be reasonable to transition from continuous monitoring to TID monitoring for 1 hour incrementsat a time. Discussed that if we make this change, there is a possibility that stillbirth could occur during a time period when she is not being monitored. After shared decision making, decided to transition to TID monitoring with the understanding that if non-reassuring status is identified that we would transition to more prolonged monitoring again. - S/p first dose of betamethasone; will receive second dose this afternoon - If there is concern for impending delivery start magnesium 6 g/2 g infusion for neuroprotection prior to delivery - Due to extremely poor outcomes if delivery were to occur between now and before steroidsare completed, would only recommend delivery for terminal bradycardia prior to steroid coursebeing completed - S/p NICU consult on 12/10, appreciate excellent cares - Anesthesia consult placed, appreciate excellent cares - Continue regular diet at this time, will hold if concerned about need for delivery - Plan for 3x weekly ultrasounds with MCA, UA, and DV Doppler studies of both twins (next 12/12) - Consented for classical delivery, patient in agreement #GERD Patient endorses GERD, currently managed on [employer] omeprazole. Discussed importance of weight gain to improve outcomes. - Continue [employer] omeprazole - Carafate solution prn if symptoms worsen - Patient counseled on Reglan and other options, but declines due to potential side effects at thistime # Inpatient Management - up ad favian - Regular diet at this time - SCD's - Consider prophylactic Lovenox BID after 72 hr admission pending clinical course - Q72 hour CBC type/screen # FWB - TID 1hr monitoring - Ultrasound surveillance plan: 3x weekly limited US w/ UAD, MCA, DV Dopplers of both twins (next 12/12); plan for repeat growth US on 12/17 if still - S/p first dose betamethasone; second dose to be administered this afternoon - Magnesium pending delivery plans - S/p NICU consult # Routine care - O+; Antibody negative - Rubella not immune, Hepatitis B NR, Hepatitis C NR, HIV NR, RPR negative (1st trimester and on admission), GBS: needs collected - GCT at 24w if at that time - Other labs wnl - Imaging -- Dating: L=7w U/S -- Anatomy: see formal report - Immunizations: Discuss Flu, COVID as course progresses - Pap last 07/16/24, NILM - Contraception: Will discuss - Feeding: Will discuss # Delivery Plan: - MOD: Will be primary , likely classical hysterotomy at this gestational age - TOD: pending clinical status - patient verbally consented for classical C/S Patient seen and plan of care discussed with Dr. Eden Siegel MD Obstetrics and Gynecology, PGY-2 02/11/25 10:29 AM Cosigned by Jesus Harmon MD at 12/11/2024 10:58 AM SOLAR SITE ASSESSMENT SPECIALIST R SITE ASSESSMENT SPECIALIST R SITE ASSESSMENT SPECIALIST Associated attestation - Jesus Harmon MD - 12/11/2024 10:58 AM SOLAR SITE ASSESSMENT SPECIALIST Physician Attestation I saw this patient with the resident and agree with the resident/fellow's findings and plan of careas documented in the note. Nixon findings: HD#2. Patient is 29 YO at 23w1d who is admitted for attempt to optimize survival chances for both twins in MC/DA twin with selective severe FGR in Twin B with abnormalUA and DV doppler wave forms suggesting a high risk of in utero demise. The patient has been followed closely by MFM as an outpatient and has been thoroughly counseled on various treatment options and declines selective laser therapy. She was doing OP management with three times weekly US for doppler assessment of both fetus with the plan that if the doppler study showed worsening findings she would desire admission for BTMS administration and continuous EFM with plans to delivery by classical CS for FHR abnormalities. She was counseled by myself and the NICU attending last week about the high risk of morbidity and mortality with very delivery in the 22-25 week gestation and the possibility of not being able to resuscitate twin B because of very small size. Plan will be admission until delivery. Since admission, we have given the first dose of BTMS course and provided continuous EFM overnight and repeated doppler studies this am 12/11/2024. We are seeing persistent UA doppler showing intermittent reversed diastolic flow but transient improvement in the DV dopplers with a-wavebeing forward flowing. We discussed that this will likely be transient but likely they would becomeabnormal again and this will prompt further discussion about delivery. The also understand that EFMis not as reliable in the very to predict wellbeing or distress and that continuous monitoring is likely to be very difficult for prolonged periods of time. After shared decision making, we decided to reduce EFM to one hr TID and repeat doppler studies every other day. The patientwill get her second dose of BTMS this evening. If the EFM looks more concerning this may lead to prolonged monitoring and possible moving towards delivery. I answered all their questions. 45 MINUTES SPENT BY ME on the date of service doing chart review, history, exam, documentation & further activities per the note. I have personally reviewed the following data over the past 24 hrs: 5.7 \ 10.0 (L) / 220 136 104 8.4 / 79 3.9 21 (L) 0.51 \ ALT: 16 AST: 21 AP: 76 TBILI: 0.3 ALB: 3.5 TOT PROTEIN: 6.5 LIPASE: N/A Ferritin: 15 % Retic: N/A LDH: N/A Jesus Harmon MD Date of Service (when I saw the patient): 12/11/24 * Cameron Leach MD - 12/10/2024 8:50 PM CST Antepartum Progress Note Patient appeared to have frequent contractions on the monitor. In to assess this evening S: Feeling ok at this time. Denies contractions, however does feel some sparse episodes of tightening. However no more so then what she has felt before. She denies leakage of fluid or vaginal bleeding. Amendable to exam as this time. O: BP 119/61 (BP Location: Left arm, Patient Position: Semi-Baker's, Cuff Size: Adult Regular) Temp 98.6 ??F (37 ??C) (Oral) Resp 18 Wt 72.6 kg (160 lb) LMP 07/01/2024 BMI 26.63 kg/m?? GEN: NAD Abd: gravid FHT (12/10 PM 1939 - 2021) - Twin A: 140 bpm, min to mod variability, sparse 10x10 accels, isolated GA appropriate decelerations - Twin B: 150 bpm, min to mod variability, sparse 10x10 accels, isolated GA appropriate decelerations TOCO: (difficulty to fully visualize, however appears to be 2-3 contractions q 10 minutes SSE: normal external genitalia, on speculum examination well rugated vaginal mucosa with mildly redundant vaginal tissue. Cervix difficult to fully visualize. However no vaginal bleeding or pooling of fluid visualized in vaginal vault. SVE: C/L/H A/P: Deandre is a 29 year at 23w1d who is admitted due to sFGR of Twin B in the setting of di-di twin . In to evaluate to due to contractions noted on monitoring. However she remains asymptomatic. Cervix is closed at this time, however will continue to closely monitor. - Will give 500 ml LR bolus. If contractions persist will provide an additional bolus - Continuous monitoring overnight Cameron Leach MD, MPH, MS Obstetrics, Gynecology & Women's Health Resident, PGY-3 12/11/2024 12:13 AM R SITE ASSESSMENT SPECIALIST documented in this encounter H&P Notes * Jenny De Souza MD - 12/10/2024 5:01 PM CST Images from the original note were not included. Antepartum History and Physical December 10, 2024 Deandre Chávez [id number] HPI Deandre Chávez is a 29 year old at 23w1d with mono-di twins by LMP = 7w6d US who presents from clinic for steroid administration and monitoring due to REDF of the UA and reversed A-wavein fetus B on US today in the setting of monochorionic diamniotic twin gestation with known selective growth restriction (type III) of fetus B. Deandre states that she is feeling well today. She denies headache, vision changes, chest pain, shortness of breath, fever, chills, nausea, vomiting or other systemic complaints. She denies vaginal bleeding or loss of fluid and is feeling normal movement x2. Endorses GERD that is overall controled with Omeprazole. She does note fairly severe bloating after some meals that goes away with time. Not experiencing currently. Deandre is here today for admission for steroid administration and monitoring. She is here with her , Los. They have been aware of the abnormal growth of twin B and abnormal Doppler flow studies since 15 weeks gestation. They were counseled on selective reduction of twin B due to the genevieve re growth restriction and abnormal Dopplers, which they have declined. They were seen by NICU last week and counseled on options of inpatient monitoring and possible delivery. They declined this option and proceeded with expectant management. Today twin B again has intermittent reversed end-diastolic flow of the umbilical artery, with reversed A wave of the ductus venosus, which was a new findingtoday. Now that she is 23 weeks gestation, and had these new concerning Doppler findings, she was counseled on the risk of stillbirth and again counseled on the option of antepartum admission for surveillance and steroid administration and case of the need for early delivery. Deandre is with 2 girls. Twin A (maternal left, cephalic) will go by meaghan Payne for [place]. Twin B will go by meaghan Allen for [place]. Deandre and Los wish to avoid stillbirth for one or both babies at all cost. They are wanting to intervene in any way possible to help promote the health of their daughters. Deandre is otherwise medically uncomplicated. She has a history of 2 prior term uncomplicated vaginal deliveries. Her children are 1 and 3 years old. Deandre plans on her children going to stay with her mother, who is a abe teacher in [place], while she is admitted in the hospital until delivery. Los plans on spending as much time in the hospital with him as possible. Her has been complicated by: - monochorionic diamniotic twins - selective FGR fetus B - Reversed EDF of the UA and reversed A-wave (new today) of the ductus venosus of twin B - Circumvallate placenta (anterior) OB History Para Term AB Living 3 2 2 0 0 2 SAB IAB Ectopic Multiple Live Births 0 0 0 0 2 # Outcome Date GA Lbr [place]/2nd Weight Sex Type Anes PTL Lv 3 Current 2 Term 04/15/24 40w0d 3.6 kg (7 lb 15 oz) M Vag-Spont HENRY 1 Term 03/22/21 39w0d 2.665 kg (5 lb 14 oz) F HENRY Past Medical History Past Medical History: Diagnosis Date Uncomplicated asthma exercise induced asthma Past Surgical History Past Surgical History: Procedure Laterality Date LAPAROSCOPIC APPENDECTOMY N/A 12/04/2021 Procedure: APPENDECTOMY, LAPAROSCOPIC; Surgeon: Marah Ramirez MD; Location: OR Medications Current Facility-Administered Medications Medication Dose Route Frequency Provider Last Rate Last Admin acetaminophen (TYLENOL) tablet 650 mg 650 mg Oral Q4H PRN O'Jenny Duenas MD alum & mag hydroxide-simethicone (MAALOX) suspension 30 mL 30 mL Oral BID PRN O'Nan, Jenny, MD betamethasone acet & sod phos (CELESTONE) injection 12 mg 12 mg Intramuscular Q24H Jenny De Souza MD 12 mg at 12/10/241828 bisacodyl (DULCOLAX) suppository 10 mg 10 mg Rectal Daily PRN Jenny De Souza MD calcium carbonate (TUMS) chewable tablet 1,000 mg 1,000 mg Oral Q6H PRN Jenny De Souza MD calcium carbonate (TUMS) chewable tablet 500 mg 500 mg Oral BID OJenny Duenas MD diphenhydrAMINE (BENADRYL) capsule 25 mg 25 mg Oral Q6H PRN Jenny De Souza MD Or diphenhydrAMINE (BENADRYL) injection 25 mg 25 mg Intravenous Q6H PRN TayJenny Duenas MD docusate sodium (COLACE) capsule 100 mg 100 mg Oral BID Jenny De Souza MD famotidine (PEPCID) tablet 10 mg 10 mg Oral Daily TayJenny Duenas MD metoclopramide (REGLAN) tablet 10 mg 10 mg Oral Q6H PRN Jenny De Souza MD Or metoclopramide (REGLAN) injection 10 mg 10 mg Intravenous Q6H PRN Jenyn De Souza MD ondansetron (ZOFRAN ODT) ODT tab 4 mg 4 mg Oral Q6H PRN Jenny De Souza MD Or ondansetron (ZOFRAN) injection 4 mg 4 mg Intravenous Q6H PRN Jenny De Souza MD [START ON 12/11/2024] pantoprazole (PROTONIX) EC tablet 40 mg 40 mg Oral Daily OJenny Duenas MD multivitamin w/iron per tablet 1 tablet 1 tablet Oral Daily OJenny Duenas MD prochlorperazine (COMPAZINE) tablet 10 mg 10 mg Oral Q6H PRN Jenny De Souza MD Or prochlorperazine (COMPAZINE) injection 10 mg 10 mg Intravenous Q6H PRN Jenny De Souza MD simethicone (MYLICON) chewable tablet 160 mg 160 mg Oral Q6H PRN Jenny De Souza MD sodium phosphate (FLEET ENEMA) 1 enema 1 enema Rectal Daily PRN Jenny De Souza MD Allergies No Known Allergies Family History No family history on file. Social History Social History Socioeconomic History Marital status: Tobacco Use Smoking status: Never Smokeless tobacco: Never Substance and Sexual Activity Alcohol use: Never Drug use: Never Social Drivers of Health Interpersonal Safety: Unknown (12/10/2024) Interpersonal Safety Do you feel physically and emotionally safe where you currently live?: Patient unable to answer Within the past 12 months, have you been hit, slapped, kicked or otherwise physically hurt by someone?: Patient unable to answer Within the past 12 months, have you been humiliated or emotionally abused in other ways by your partner or ex-partner?: Patient unable to answer ROS 10-point ROS negative except as indicated in HPI. Physical Exam Vitals: 12/10/24 1545 BP: 120/66 BP Location: Left arm Patient Position: Semi-Baker's Cuff Size: Adult Regular Resp: 18 Temp: 98.6 ??F (37 ??C) TempSrc: Oral Weight: 72.6 kg (160 lb) General: alert, oriented female, resting in bed in NAD CV: well perfused Lungs: Breathing comfortably on room air Abdomen: soft, gravid, non-tender Extremities: bilateral lower extremities non-tender with trace edema : deferred Presentation: A: Cephalic (maternal left) and B: Breech (maternal right) by formal ultrasound today Twin A: FHT: baseline 140, minimal-moderate variability, accelerations present, rare variable decelerations Twin B: FHT: baseline 150, minimal-moderate variability, accelerations present, no decelerations [place]: rare ctxs Impression: overall reassuring for both twins at 23w with FGR and abnormal DFS of twin B. Reactive x2 Labs Lab Results Component Value Date Negative 12/10/2024 HGB 10.0 (L) 12/10/2024 GBS Status: No results found for: GBS No results found for: PAP Results for orders placed or performed during the hospital encounter of 12/10/24 (from the past 24 hours) CBC with platelets differential Narrative The following orders were created for panel order CBC with platelets differential. Procedure Abnormality Status --------- ------ CBC with platelets and d...[[id number]] Abnormal Final result Please view results for these tests on the individual orders. ABO/Rh type and screen Narrative The following orders were created for panel order ABO/Rh type and screen. Procedure Abnormality Status --------- ------ Adult Type and Screen[[id number]] Final result Please view results for these tests on the individual orders. Comprehensive metabolic panel Result Value Ref Range Sodium 136 135 - 145 mmol/L Potassium 3.9 3.4 - 5.3 mmol/L Carbon Dioxide (CO2) 21 (L) 22 - 29 mmol/L Anion Gap 11 7 - 15 mmol/L Urea Nitrogen 8.4 6.0 - 20.0 mg/dL Creatinine 0.51 0.51 - 0.95 mg/dL GFR Estimate >90 >60 mL/min/1.73m2 Calcium 8.9 8.8 - 10.4 mg/dL Chloride 104 98 - 107 mmol/L Glucose 79 70 - 99 mg/dL Alkaline Phosphatase 76 40 - 150 U/L AST 21 0 - 45 U/L ALT 16 0 - 50 U/L Protein Total 6.5 6.4 - 8.3 g/dL Albumin 3.5 3.5 - 5.2 g/dL Bilirubin Total 0.3 <=1.2 mg/dL CBC with platelets and differential Result Value Ref Range WBC Count 5.7 4.0 - 11.0 10e3/uL RBC Count 4.15 3.80 - 5.20 10e6/uL Hemoglobin 10.0 (L) 11.7 - 15.7 g/dL Hematocrit 32.4 (L) 35.0 - 47.0 % MCV 78 78 - 100 fL MCH 24.1 (L) 26.5 - 33.0 pg MCHC 30.9 (L) 31.5 - 36.5 g/dL RDW 15.0 10.0 - 15.0 % Platelet Count 220 150 - 450 10e3/uL % Neutrophils 69 % % Lymphocytes 24 % % Monocytes 6 % % Eosinophils 0 % % Basophils 0 % % Immature Granulocytes 0 % NRBCs per 100 WBC 0 <1 /100 Absolute Neutrophils 3.9 1.6 - 8.3 10e3/uL Absolute Lymphocytes 1.4 0.8 - 5.3 10e3/uL Absolute Monocytes 0.3 0.0 - 1.3 10e3/uL Absolute Eosinophils 0.0 0.0 - 0.7 10e3/uL Absolute Basophils 0.0 0.0 - 0.2 10e3/uL Absolute Immature Granulocytes 0.0 <=0.4 10e3/uL Absolute NRBCs 0.0 10e3/uL Adult Type and Screen Result Value Ref Range ABO/RH(D) O POS Antibody Screen Negative Negative SPECIMEN EXPIRATION DATE [id number] Imaging Comprehensive US (12/10/24) Fetus 1 Cardiac activity present. FHR 124 bpm. movements: present. Presentation: maternal left, cephalic Placenta: Placental site: anterior, no previa Umbilical cord: Cord vessels: 3 vessel cord. Insertion site: normal insertion Amniotic fluid: Amount of AF: normal. MVP 6.5 cm 1) bladder is visualized. 2) The amniotic fluid volume appears normal as measured by MVP. 3) The UAR Doppler waveform (performed for TTTS surveillance) is normal. 4) The MCA Doppler waveform (performed for TAPS surveillance) is normal (1.39 MoM). 5) DV waveform is normal. Fetus 2 Cardiac activity present. FHR 157 bpm. movements: present. Presentation: maternal right, breech Placenta: Placental site: anterior, no previa Umbilical cord: Cord vessels: 3 vessel cord. Insertion site: normal insertion Amniotic fluid: Amount of AF: normal. MVP 6.1 cm 1) bladder is visualized. 2) The amniotic fluid volume appears normal as measured by MVP. 3) The UAR Doppler waveform (performed for TTTS surveillance) shows forward flow with elevated PI as well as AEDF and REDF patterns consistent with FGR Type III. 4) The MCA Doppler waveform (performed for TAPS surveillance) is normal (1.3 MoM). 5) DV waveform shows episodes of reverse flow in a-wave. Assessment/Plan Deandre Chávez is a 29 year old at 23w1d with mono-di twins by LMP = 7w6d US who presents from clinic for admission for steroid administration and monitoring due to REDF of the UA and reversed A-wave in fetus B on US today in the setting of monochorionic diamniotic twin gestation withknown selective growth restriction (type III) of fetus B. 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 Deandre and Los have discussed her risks with the [facility] team in detail at previous outpatient visits, and we reiterated the increased risk for stillbirthdue to reversed flow in the UA and DV of twin B. We discussed the natural course of selective growth restriction and abnormal blood flow through the umbilical artery, that is measured by Doppler flowstudies. We discussed the progression of elevated flow, leading to absent flow, and ultimately reversed flow in the umbilical artery. If this reverse flow worsens, we can see reversal in the flow of the ductus venosus as well, which we saw today and is a new finding. We discussed that if no intervention is done, eventually stillbirth will occur in twin B, which is the rationale for admission, betamethasone administration, and closely monitoring for progression or worsening of the heart tracing that would lead us to recommend delivery. Deandre and her partner are understandably concerned about a IUFD, which they would like to avoid as their main priority for her . We discussed that the main point of admission is to prepare the babies for what will most certainlybe a delivery, and to perform intensive monitoring and attempts to avoid a stillbirth. We also discussed that although monitoring is reassuring right now for both twins, there is the possibility of acute changes that could lead to stillbirth. We discussed the rationale for admission would be to help prevent stillbirth by intensive monitoring and surveillance, but that wecannot 100% guarantee that a stillbirth will not occur. Deandre and Los were counseled that if there are changes in the monitoring for 1 or both twins that is concerning for impending poor outcome or demise, that we would recommend to move forward emergently with delivery. Discussed that this would require a section with a vertical classical hysterotomy, which would require sections for all future deliveries no later than 37w0d gestation. Discussed and recommended IV magnesium administration if we anticipate delivery for neuro-protection. - Admit to inpatient - Initiate Betamethasone course for lung, neuro, and GI protection in the case of a delivery - Will hold off on magnesium sulfate at this point in time, as status on monitoring is reassuring. If there is concern for impending delivery start magnesium 6 g/2 g infusion for neuroprotection prior to delivery - Continuous monitor overnight to prove stability of statuses. Reassess in the AM afterrepeat ultrasound with dopplers - Due to extremely poor outcomes if delivery were to occur between now and before steroidsare completed, would only recommend delivery for terminal bradycardia prior to steroid coursebeing completed - NICU consult placed, their team is aware - Anesthesia consult placed so they are aware - Can order dinner tonight high - Limited ultrasound in the morning with MCA, UA, and DV Doppler studies of both twins - HELLP labs on admission - Type and screen - Consented for classical delivery, patient in agreement - Discussed anticipated antepartum course of inpatient admission until delivery. Also discussed what admission will look like as far as lab testing, monitoring, and ultrasound surveillance #GERD Patient endorses GERD, currently managed on MANAGER STERILE PROCESSING omeprazole. - Continue MANAGER STERILE PROCESSING omeprazole - Consider GI cocktail if sx worsen - Patient counseled on Reglan and other options, but declines due to potential side effects at thistime # Inpatient Management - up ad favian - Regular diet at this time - SCD's - Consider prophylactic Lovenox BID after 72 hr admission pending clinical course - Q72 hour CBC type/screen # FWB - CEFM - Ultrasound surveillance plan: limited US with doppler in AM - BMZ initiate today - Magnesium pending delivery plans - NICU aware of patient, will see tonight # Routine care - O+; Antibody negative - Rubella not immune, Hepatitis B NR, Hepatitis C NR, HIV NR, RPR negative (1st trimester and on admission), GBS: needs collected - GCT at 24w if at that time - Other labs wnl - Imaging -- Dating: L=7w U/S -- Anatomy: see formal report - Immunizations: Discuss Flu, COVID as course progresses - Pap last 07/16/24, NILM - Contraception: Will discuss - Feeding: Will discuss # Delivery Plan: - MOD: Will be primary , likely classical hysterotomy at this gestational age - TOD: pending clinical status - patient verbally consented for classical C/S Patient care plan discussed under supervision of Dr. Jesus Harmon. Jenny De Souza MD Maternal Medicine Fellow Cosigned by Jesus Harmon MD at 12/11/2024 10:36 AM SOLAR SITE ASSESSMENT SPECIALIST R SITE ASSESSMENT SPECIALIST R SITE ASSESSMENT SPECIALIST Associated attestation - Jesus Harmon MD - 12/11/2024 10:36 AM SOLAR SITE ASSESSMENT SPECIALIST Physician Attestation -Late entry I saw this patient with the resident and agree with the resident/fellow's findings and plan of careas documented in the note. Nixon findings: Patient is 29 YO at 23w1d who is admitted for attempt to optimize survival chances for both twins in MC/DA twin with selective severe FGR in Twin B with abnormal UA and DV doppler wave forms suggesting a high risk of in utero demise. The patient has been followed closely by MFM as an outpatient and has been thoroughly counseled on various treatment options and declines selective laser therapy. She was doing OP management with three times weekly US for doppler assessment of both fetus with the plan that if the doppler study showed worsening findings she would desire admission for BTMS administration and continuous EFM with plans to delivery by classical CS forFHR abnormalities. She was counseled by myself and the NICU attending last week about the high riskof morbidity and mortality with very delivery in the 22-25 week gestation and the possibility of not being able to resuscitate twin B because of very small size. Plan will be admission until delivery with administration of BTMS course and continuous EFM overnight and repeat doppler studies in am 12/11/2024. She and her are aware the BTMS sometimes leads to a transient improvement in the dopplers but likely they would become abnormal again and this will prompt further discussion about delivery. The also understand that EFM is not as reliable in the very to predict wellbeing or distress and that continuous monitoring is likely to be very difficult for prolonged periods of time. I answered all their questions. 60 MINUTES SPENT BY ME on the date of service doing chart review, history, exam, documentation & further activities per the note. I have personally reviewed the following data over the past 24 hrs: 5.7 \ 10.0 (L) / 220 136 104 8.4 / 79 3.9 21 (L) 0.51 \ ALT: 16 AST: 21 AP: 76 TBILI: 0.3 ALB: 3.5 TOT PROTEIN: 6.5 LIPASE: N/A Ferritin: 15 % Retic: N/A LDH: N/A Jesus Harmon MD Date of Service (when I saw the patient): 12/10/24 documented in this encounter Consult Notes * Jocelyn Subramanian, BEATER OPERATOR - 12/23/2024 10:00 AM CSTAssociated Order(s): SOCIAL WORK IP CONSULT Social Work Initial Consult General Information Assessment completed with: Patient, Deandre & Los Type of visit: NICU Psychosocial Assessment Reason for Consult: mental health concerns Living Environment: Primary caregiver: Deandre is a compliance aide funeral home assistant. Lives with: Deandre and Los reside in a home in [place], [place] with their 2 children Current living arrangements: house Able to return to prior arrangements: yes Family Factors Family Risk Factors: other children at home needing care and attention, of multiples Family Strength Factors: experienced parents, connected with mental health support, able and willing to ask for help/accept help, able and willing to advocate for self/family, stable housing, spiritual support Assessment of Support Parental Marital Status: Who is your support system?: Description of Support System: Supportive Employment/Financial Patient's caregiver works full/parts identifier: Los works full-time Patient works full/parts identifier: No Coping/Stress Deandre reports having a strong social network with whom she can rely on. She has a close relationshipwith her mother and brother. She is connected with her suze community and she has a counselor thatshe plans on reaching out to. Deandre also physically decompresses by doing knitting. SW observed Veronikaaknitting as she completed her assessment. Provider noted that Deandre's score was high so significant time was spent discussing mental health,. Deandre stated that she did not need any further supports or referrals. Additional Information: Deandre's family comprises of her Los, her 5-year-old son Alexis and her 3 year old daughter Jeane. Both children arrived in the hospital room half way through the assessment and hugged their mother. They were very impressed with the view as they ran over, jumped, pointed and uttered wooooww. Deandre stated that she feels safe at home. Deandre gave to twin girls named Luna (Maureen) and Becky (Isidra) who are now in NICU. Deandre shared that she is praying for Maureen as she has a brain bleed. It is unclear how often Deandre and Los will be visiting but Deandre shared that she has child protection specialist for the next 2 weeks. Los and her areher biggest supports and have helped thought this process. certificate, SSN have been requested. The twins will likely be in NICU until March. SW discussed discounting parking passes and the process. Los shared that he was on it. Los is the primary breadwinner and he owns his own paint company. Deandre shared that the family is not in need of any monetary supports at this time. They are insured through [employer] and the twins will be added shortly. Deandre shared that she does not have a history of substance use and does not need any supports surround that at this time. INTERVENTION Conducted chart review and consulted with medical team regarding plan of care. Introduced SW role and scope of practice. Provided assessment of patient and family's level of coping Conducted psychosocial assessment Provided psychosocial supportive counseling and crisis intervention Validated emotions and provided supportive listening Assessed coping and adjustment to new diagnosis, subsequent hospital admission and treatment Described process for obtaining certificate, social security card and insurance Provided SW contact info PLAN SW will continue to follow for supportive intervention. CARLOS MANUEL Chow R SITE ASSESSMENT SPECIALIST * Sharyn Cervantes RN - 12/13/2024 11:16 PM CSTAssociated Order(s): NURSING TO CONSULT FOR VASCULAR ACCESS CARE IP CONSULT Consult received for Vascular access care. See LDA for details. For additional needs place Nursingto Consult for Vascular Access [id number] order in [place]. R SITE ASSESSMENT SPECIALIST * Chantell Jolley - 12/12/2024 2:07 PM CSTAssociated Order(s): SPIRITUAL HEALTH SERVICES IP CONSULT SPIRITUAL HEALTH SERVICES - Consult Note, WB Antepartum Referral Source/Reason for Visit: Request for support in setting of anticipated premature delivery of twin girls. Met with Deandre alone in antepartum room. Summary and Recommendations - Deandre reflected on the whirlwind of the last few days, being admitted to closely monitor her twin girls Madison Miner and Carole Hinojosa. Deandre shared at length about her Mu-Ism suze, which is foundational to her coping. Her framework includes belief in miracles, Richard, and hope that both twins will survive. Theologically, while believing in miracles and remaining steadfast in hope, Deandre and Los also believe, God gives and takes away, and we know He might take her away. But He is still good. Her belief in a fallen world helps her to accept that outcomes may not be what they hope for. Nonetheless, she and Los hope for both babies to sustain life, We don't lose anything by having hope... We're honored to be their Mom and Dad as long as possible Certain theologies that friends have shared have been painful to receive - specifically that God either macdonald bad things to happen, and/or bad things happen as a result of sinfulness. These are not supportive to Deandre and Los. Deandre also names feeling some pressure from providers to choose selective reduction. She appreciates clarity of information, and wants truthfulness, but is grateful to receive support for their decision to choose otherwise. Deandre and Los are currently between churches and do not have a sales technician of their own. They welcome varnish maker helper support. I oriented them to rituals, like buddhism, namings, etc. and Deandre will consider them. For now, Deandre considers each new day the goal and a gift. She had prayed to get to 22 weeks. We spoke of gentleness with herself while in this liminal space. Plan: Deandre would like to meet with [facility] about her older children Alexis and Carlos visiting in the near future. Referral sent. [facility] to follow closely. Chantell Jolley M.Div. Associate Spray Rig Operator Pager [phone] [address] [employer] [facility] available 23/05 for emergent requests/referrals, either by paging the on-call varnish maker helper or by entering an ALEX/STAT consult in via680, which will also page the on-call varnish maker helper. Assessment Saw pt Deandre Calles Saira per routine consult. Patient/Family Understanding of Illness and Goals of Care - Deandre knows that she carries this tenuously, and considers each new day the goal. She hopes to maintain her as long aspossible and to sustain life for both twin girls. Distress and Loss - Deandre did not exhibit outright distress or loss, but is realistically prepared for multiple outcomes from this , including the loss of twin B. We discussed that her overwhelm and anxiety has been coming in waves, which I validated and normalized. Strengths, Coping, and Resources - Deandre is coping beautifully with the support of her Los.Her two children Alexis and Carlos are in the care of her mom in [place], [place], where they will attend a private [employer] school her mother works at. This is a great comfort. She looks forward to their visiting in the coming week. [facility] consulted. Deandre is coping in this liminal time by taking things one day at a time, and by reminding herself, It was our prayer at 15 weeks to make it to this point... this is our answered prayer. She stated, We're honored to be their Mom and Dad as long as possible. Meaning, Beliefs, and Spirituality - Mu-Ism suze is foundational to coping for this family. They operate under the belief in the Lord, in Richard, in miracles. Deandre believes God had prepared her to carry twins and shared a story of great meaning about encountering twin fawns and predicting her twin . While she and Los choose hopefulness, We don't lose anything by hoping, they are realistic, supported by their suze, God gives and takes away, and might take this away, but he is still good. Other theologies have been difficult to hear from friends. She is considering rituals, such as buddhism, and welcomes continued spiritual care. R SITE ASSESSMENT SPECIALIST * Kathie Florence, SCRUFF WORKER - 12/11/2024 11:38 AM CSTAssociated Order(s): CARE MANAGEMENT / SOCIAL WORK IP CONSULT Social Work Initial Consult DATA/ASSESSMENT General Information Received order for SW to see. Reason for referral: Family Support (parental education, patient/family bonding, emotional support) SW met with patient and her spouse this morning to assess needs and to offer support. Patient is 29 year-old Deandre Chávez. She is to her , Los. They live in [place], [place]. These twins, Carole (Micaela) and Madison (Isidra) are their 3rd/4th babies. Their two children at home are Alexis (5) and Carlos (3). Assessment of Support Deandre and Los are surrounded with a strong support system. Deandre's mom will come to care for the kids while Los spends time here with Deandre. Her mom is a teacher at a private [employer] school in [place]. It is an ideal situation where Alexis and Carlos will enroll at the school while Deandre is hospitalized. Deandre and Los find much comfort in this plan as it gives the children some structure and the physic al presence and support of their grandmother. This is the same pre-school where Deandre attended with the same teacher that cared for her when she was a child. Deandre describes this closely- knit community as very supportive to her family. 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 Los co-owns a painting and remodeling business with his father. He does have employees and works closely with general contractors that can manage things when he is needed here. His busiest season isstarting now but he has some flexibility and he can work remotely. Deandre has [place]ARE-[place] through [facility]. The babies will be added to this policy upon . Coping/Stress Deandre and Los share about how this experience may be the hardest thing they have ever been through as a couple. They identify their suze in Richard as central to their coping and find comfort in a belief that God is in control of everything. Deandre additionally shared they are, Resting in the peace of knowing the babies are in God's loving hands. Deandre endorses mental health history significant for generalized anxiety and a anxiety disorder after Belley's . She has accessed counseling on/off over the years and did find it helpful. She took Sertraline for a short time twice but chose to discontinue. She didn't like feeling different and wanted to utilize self-care strategies to manage her mood. Running and exercise were good outlets for her in addition to her strong suze. Of note, Deandre's anxiety disorder was very situational. She gave to Carlos on the one year anniversary date of her father's . This was of emotional significance for Deandre and she needed time to process her grief and mothering. SW provided psycho-education about mood and anxiety disorders. We talked about the stress of this experience and how this leaves her vulnerable for an escalation of her anxiety symptoms. SW discussed the availability of psychosocial supports as she and Los navigate this experience. Additional Information: Deandre and Los have known about Isidra's growth restriction for some time. They are hopeful she can survive delivery and sustain life outside of the womb. Because of all the uncertainty, Deandre has been cautious about purchasing baby supplies. She has items selected and saved on a website - ready for purchase when the time is right. INTERVENTION Initial psychosocial assessment completed. Provided supportive counseling related to Deandre's complicated and anticipated, extended PSCU admission. Shared information about discounted hospital parking passes. SW requested providers please enter orders for Child Family Life and Spiritual Health consults. PLAN SW will continue to follow for along throughout Deandre's antepartum admission for supportive interventions. CARLOS MANUEL Bashir [facility] Clinical Marketing Manager Health Communications Maternal Child Health Voicemail: [phone] Reachable via [employer] R SITE ASSESSMENT SPECIALIST * Prabha Ahmadi MD - 12/10/2024 9:00 PM CSTAssociated Order(s): PEDS NEONATOLOGY IP CONSULT Images from the original note were not included. [facility] NICU Antepartum Counseling Consult I was asked to provide antepartum counseling for at the request of Dr. Harmon. Deandre is currently 23 weeks 1 day gestation with complicated by mono- di twins with Twin B with known selective growth restriction (type III) and no with REDF of the UA reversed A-wave. Most recent US with EFW from 22w1d noted EFW 521g (68th%) of Twin A and 352g (2nd %) for Twin B. She was admitted today and has received one dose of betamethasone with close monitoring. No plans to deliver at certain gestation at this time but she has consented to if needed urgently. Ms. Chávez was accompanied by her , Los. I discussed with them that some infants born at this gestational age in the delivery room or first several days of life. While some are admitted to the NICU but go on to have serious medical complications related to prematurity. These infants may later in their hospitalization, require surgeries, have severe neurodevelopmental impairment, and/or have multiple ongoing medical needs. We also discussed that some patients have their ups and downs in the NICU, but discharge home around theirdue date with fewer assisted complications. I expressed that I cannot predict every complication of prematurity, but that every part of their baby will be immature and require significant support and monitoring to develop as well as possible. Deandre asked about and providing breast milk. I discussed the importance of breast milk and encouraged pumping. She consented to donor breast milk if needed. I spent the majority of my time discussing the family experience of the NICU including the possibility of a NICU tour, the layout of our unit, and our current visiting policies. I discussed the importance of maternal breast milk, the process of making milk for a premature , the availability of support, supplies to consider obtaining in preparation for pumping for a premature infant (hands free pumping bra, double electric breast pump), and the availability of donor breast milk should mom's milk not be available. I left her with the educational website [email or web address]. I discussed the benefits of [id number] contact and the importance of their presence in the NICU. They had already had a NICU consult outpatient and so a majority of our conversation was related to delivery room management. I discussed that being in the NICU, no matter when their baby is born, is often one of the most stressful and traumatic experiences a family may face in their lifetime. I explored their support network, current employment and leave, and worries about this prolonged hospitalization. I discussed the nixon role our social workers play on antepartum and in the NICU. I expressed the importance of caringfor their mental health in this difficult time. At the end of this discussion, family voiced their want for full resuscitation. We are happy to return for further questions or to re-vist this conversation should she remain for 1-2+ additional weeks. Plan: - Family desires full resuscitation for twins - Verbal consent for donor breast milk - NICU team available for any additional questions Prabha Ahmadi DO - Medicine Fellow Intensive Care Unit [facility] Cosigned by Maria Isabel Pino MD at 12/12/2024 1:29 PM SOLAR SITE ASSESSMENT SPECIALIST R SITE ASSESSMENT SPECIALIST R SITE ASSESSMENT SPECIALIST R SITE ASSESSMENT SPECIALIST Associated attestation - Maria Isabel Pino MD - 12/12/2024 1:29 PM SOLAR SITE ASSESSMENT SPECIALIST Physician Attestation I agree with the information in this note. Maria Isabel Pino MD documented in this encounter Miscellaneous Notes * Plan of Care - Nena Ren RN - 12/23/2024 2:57 PM CST Goal Outcome Evaluation: Plan of Care Reviewed With: patient Problem: Adult Inpatient Plan of Care Goal: Optimal Comfort and Wellbeing Outcome: Met Intervention: Provide Person-Centered Care Recent Flowsheet Documentation Taken 12/23/2024 09 by Nena Ren RN Trust Relationship/Rapport: care explained choices provided empathic listening provided emotional support provided VSS. Afebrile. C/o minimal pain and declining pain meds at times when offered. Steristrips c/d. Up ad favian. Pumping for twins in NICU. Voiding and has had a BM. Tolerating regular diet. Other childrenvisited today and pt was very happy. Pt sleeping now. Went to visit twins in NICU for a while. Discharge instructions and meds reviewed and given to pt. Anticipate discharge home when finished packing. R SITE ASSESSMENT SPECIALIST R SITE ASSESSMENT SPECIALIST * Note - Hedy Culp RNC - 12/23/2024 12:13 PM CST This note was copied from a baby's chart. Follow Up Note Reason for visit/ call/ message (age: 3 days): Dispense rental pump on discharge day Supply: 80 ml per pumping x6-7, increasing daily Mild blistering (R>L) on nipple tips from high suction Hx mastitis with prior child Significant changes (medications, equipment, comfort, etc): Both babies intubated Hand Hugs/ Skin to Skin/ Oral Care/ Nuzzling/ Latching: Parents have done hand hugs and oral care Briefly discussed logistics of skin to skin when babies are ready Education given: Gentle breast care, appropriate suction Engorgement management Mastitis spectrum (ductal narrowing, inflammatory and infectious mastitis) and ABM recommendations for prevention (did not discuss lecithin) How to incorporate hand expression and hands-on pumping to speed up emptying and best program breasts for assisted supply Benefits of logging Reviewed cleaning, sanitizing, labeling, transporting Plan: Check back day 5 ZEFERINO Osei-LUIS CARLOS, IBCLC Gun Sealing Machine Operator Makenna: [employer] [phone] Office: [phone] R SITE ASSESSMENT SPECIALIST * Provider Notification - Nena Ren RN - 12/23/2024 11:12 AM CST Pt scored 14 on depression questionnaire. I ordered SW and she will talk to pt about resources. Question of self harm was zero. Dr. Arlette Lyons G1 text paged and updated. R SITE ASSESSMENT SPECIALIST * Plan of Care - Nicole Pinon RN - 12/22/2024 9:53 PM CST Goal Outcome Evaluation: Plan of Care Reviewed With: patient, spouse Outcome Evaluation: Pt experiencing sternal pain/heaviness this evening. Likens similar to GERD spasms in NICU, but worried that something is very wrong. Offered flexaril or atarax to aid in relaxing and perhaps offering some relief. EKG and Labs ordered. Provider in room. Vital signs stable. assessment WDL. Incision WDL. Pain controlled with tylenol and ibuprofen. Patient ambulating independently. Patient reports passing gas, but experiencing gas discomfortand GERD-like symptoms.. Patient has yet to sleep much since delivery, encouraged her to try and rest/relax but she feels unable due to the discomfort. EKG and CBC WNL, Trop still pending. at bedside and attentive to patient. Visiting infant twins in NICU. Plan Problem: Adult Inpatient Plan of Care Goal: Optimal Comfort and Wellbeing Outcome: Progressing Intervention: Provide Person-Centered Care Recent Flowsheet Documentation Taken 12/22/2024 2000 by Nicole Pinon RN Trust Relationship/Rapport: care explained choices provided emotional support provided empathic listening provided Problem: ( Delivery) Goal: Hemostasis Outcome: Progressing of care ongoing. R SITE ASSESSMENT SPECIALIST * Provider Notification - Nicole Pinon RN - 12/22/2024 9:34 PM SOLAR SITE ASSESSMENT SPECIALIST 12/22/242133 Provider Notification Provider Name/Title Dr. Leach Method of Notification Electronic Page Request Evaluate in Person Notification Reason Status Update Patient experiencing pain (06/09) at the top and base of her sternum. She claims it isn't anxiety, and has declined taking anything for it. VS are WDL, except tachypnic. (24) and SPO2 99%. LS clear. We have given tums, pepcid and simethicone over the course of the evening to no relief. Reports beingunable to eat or drink as it get stuck or makes her nauseous. Are you able to come assess in person? Per provider, imaging will be ordered and they will see pt. Shortly. Will continue to monitor. R SITE ASSESSMENT SPECIALIST * Plan of Care - Nena Ren RN - 12/22/2024 5:57 PM CST Goal Outcome Evaluation: Plan of Care Reviewed With: patient Problem: ( Delivery) Goal: Optimal Pain Control and Function Outcome: Not Progressing Intervention: Prevent or Manage Pain Recent Flowsheet Documentation Taken 12/22/2024 1148 by Nena Ren RN Perineal Care: perineum cleansed diaper changed VSS. Afebrile. Voiding and having BMs. C/o minimal pain and medicated with relief. Pumping for twins in NICU. FOB here and supporitve. Pt very anxious and unable to sleep despite several attempts to give pt time to sleep without interruptions and clustering of cares. Pt will call nursing to ask forseveral things and even to tell nursing she does not need anything and for us not to disturb her despite plan made with her for nursing to wait for her to call for assistance. C/o heart burn and tumsgiven. Pt c/o SOB, see provider notification note. Pt declines to take medications to help with relaxation or sleep. Paces in room at times and at times just lays in bed for a while. Will continue to monitor and provide emotional support as pt needs. R SITE ASSESSMENT SPECIALIST * Provider Notification - Nena Ren RN - 12/22/2024 11:54 AM CST Pt c/o SOB and shoulder blade tightness. Because of this, pt is now feeling extremely anxious and restless. VSS except RR 24- taking shallow breaths. Sats 99-100% RA. LS clear, HR WNL. Historey of anxiety and no meds. Let me know if you want to do anything and if someone can come see patient. Dr. Arlette Lyons G1 text paged and updated. Dr. Newby on unit and updated. Went to see pt. R SITE ASSESSMENT SPECIALIST R SITE ASSESSMENT SPECIALIST * Note - Sherri Morales RNC - 12/22/2024 11:09 AM CST This note was copied from a baby's chart. Reminders (delete this area when done): Maternal sticky note for pump lcnfcc Update Nurse ([facility]) HOT lcplan is the general admit info. Amend as needed. Update IBCLC column Admission Note Baby Information: 's first name: A: Julia Reddy B: Madison Miner Infant medical history: 24+4 mono-di ELBW twins Oyster Shucker needed? No goal (if known): Provide breast milk. history: Exclusively breast fed her first two children for 2.5 years each Mother's Information: Name: Deandre Occupation: - Age: 29 Delivery type: [place]: [employer]- [address] Pump for home use: Needs rental at discharge Partner's name: Los Occupation: - Relevant maternal medical and social hx: Maternal past medical history, problem list and prior to admission medications reviewed and unremarkable. Maternal complications: labor, FGR twin B, and multiple gestation. Relevant maternal medications: N/A Maternal risk factors: Surgical Admission Education given: [x]Admission packet [x]Kangaroo care [x]Benefits of breast milk [x]How breast milk is made [x]Stages of milk production [x]Milk supply/ goal volumes [x]Hand expression [x]Hands-on pumping [x]Collecting, labeling, transporting milk [x]Cleaning, sanitizing pump parts [x]Storage of milk [x]Benefits and use of pasteurized donor human milk Deandre is hand expressing and pumping, getting up to 60ml at last session.She has switched to maintain setting. I gave her pump parts to keep at twins' bedside. Sherri Morales RNC-LUIS CARLOS, IBCLC Gun Sealing Machine Operator Makenna: [employer] [phone] Office: [phone] R SITE ASSESSMENT SPECIALIST * Plan of Care - Radhika Alarcon RN - 12/22/2024 3:52 AM CST Goal Outcome Evaluation: Plan of Care Reviewed With: patient, spouse Overall Patient Progress: improvingOverall Patient Progress: improving Problem: ( Delivery) Goal: Optimal Pain Control and Function Outcome: Progressing Intervention: Prevent or Manage Pain Recent Flowsheet Documentation Taken 12/22/2024 0024 by Radhika Alarcon RN Pain Management Interventions: medication (see MAR) Taken 12/21/2024 220 by Radhika Alarcon RN Pain Management Interventions: medication (see MAR) Problem: Adult Inpatient Plan of Care Goal: Absence of Hospital-Acquired Illness or Injury Intervention: Prevent Infection Recent Flowsheet Documentation Taken 12/21/20242210 by Radhika Alarcon RN Infection Prevention: hand hygiene promoted rest/sleep promoted single patient room provided Tylenol and Ibuprofen given for pain management, Oxycodone available. Simethicone given for gas. Incision with steri-strips, open to air, no signs of infection. Patient ambulating in room, voiding without difficulty, eating and drinking well. Patient pumping and visiting twins in NICU. Continue with plan of care. R SITE ASSESSMENT SPECIALIST * Plan of Care - Nicole Pinon RN - 12/21/2024 6:49 PM CST Goal Outcome Evaluation: Vital signs stable. assessment WDL. Incision WDL. Pain controlled with tylenol and ibuprofen. Simethicone given for gas pain. Patient ambulating independently. Patient reports passing gas and had a bowel movement today. Pumping for infants in NICU. at bedside and supportive of patient. Plan of care ongoing. Plan of Care Reviewed With: patient, spouse Overall Patient Progress: improvingOverall Patient Progress: improving Outcome Evaluation: Encourage self care and emphasize strengths, helps with anxiety for pt to feel normal. Problem: Adult Inpatient Plan of Care Goal: Optimal Comfort and Wellbeing Outcome: Progressing Intervention: Provide Person-Centered Care Recent Flowsheet Documentation Taken 12/21/2024 1604 by Nicole Pinon RN Trust Relationship/Rapport: care explained choices provided emotional support provided empathic listening provided Problem: ( Delivery) Goal: Fluid and Electrolyte Balance Outcome: Progressing Problem: ( Delivery) Goal: Effective Bowel Elimination Outcome: Progressing Problem: Hospitalized Patient Goal: Optimal Patient- Wellbeing Intervention: Support Psychosocial Response Recent Flowsheet Documentation Taken 12/21/2024 1604 by Nicole Pinon RN Family/Support System Care: support provided R SITE ASSESSMENT SPECIALIST * Plan of Care - Nena Ren RN - 12/21/2024 2:57 PM CST Goal Outcome Evaluation: Plan of Care Reviewed With: parent Problem: Adult Inpatient Plan of Care Goal: Optimal Comfort and Wellbeing Outcome: Progressing Intervention: Provide Person-Centered Care Recent Flowsheet Documentation Taken 12/21/2024 0753 by Nena Ren RN Trust Relationship/Rapport: care explained choices provided emotional support provided empathic listening provided VSS. Afebrile. Pt extremely anxious. Has not slept well and states anxiety is rooted in lack of sleep. Slept most of the morning then awake to eat and shower. Now trying to sleep but calling customs entry writer often for little things. Encouraged to take flexeril to help relax but pt anxious about taking new medication as well. C/o pain in morning but pain better controlled this afternoon. Pumping for twins in NICU. Emotional support provided. FOB supportive. Will continue to monitor. R SITE ASSESSMENT SPECIALIST * Provider Notification - Nnea Ren RN - 12/21/2024 8:34 AM CST Pt wanted to talk with provider about lovenox. Dr. Newby came into room and informed. Dr. Newbyspoke to pt about medication. Pt offered lovenox again and is undecided at this time. Informed pt to let customs entry writer know if she wants medication today. Dr. Rene Alba G2 resident text paged and informed. R SITE ASSESSMENT SPECIALIST R SITE ASSESSMENT SPECIALIST * Plan of Care - Denita Farrar RN - 12/21/2024 1:34 AM CST Problem: Adult Inpatient Plan of Care Goal: Plan of Care Review Description: The Plan of Care Review/Shift note should be completed every shift. The Outcome Evaluation is a brief statement about your assessment that the patient is improving, declining, or no change. This information will be displayed automatically on your shift note. Outcome: Progressing Flowsheets (Taken 12/21/2024 0134) Plan of Care Reviewed With: patient spouse Overall Patient Progress: improving Goal Outcome Evaluation: Plan of Care Reviewed With: patient, spouse Overall Patient Progress: improvingOverall Patient Progress: improving Data: checks within normal limits - see flow record. Patient eating and drinking normally. No apparent signs of infection. Gas pain 04/09.. simethicone given. Excellent urine output in ashley catheter drainage bag. Ashley removed at 2300. Has voided twice with adequate urine output, no difficulties with voiding. Declined IV toradol, started taking ibuprofen overnight. Up ad favian and independently. Started pumping. Action: Patient medicated during the shift for pain. See MAR. Patient reassessed within 1 hour after each medication and pain was improved - patient stated she was comfortable. See flow record. Response: Positive attachment behaviors observed with infant. Support person present. Plan: Continue with care plan. Denita Farrra RN on 12/21/2024 at 1:37 AM R SITE ASSESSMENT SPECIALIST * Plan of Care - Nicole Pinon RN - 12/20/2024 7:04 PM CST Goal Outcome Evaluation: Vital signs stable. assessment WDL. Incision CDI. Pain controlled with tylenol and toradol. Pt reported being shaky about 1730 after toradol. Encouraged patient toeat as she hadn't had much today. After food, the patient felt weak still but better. Patient ambulated to wheelchair with stand by assist, denied any dizziness or SOB. Patient denies passing gas.Pumping for infant twins in NICU. at bedside and supportive of patient. Plan of care ongoing. Plan of Care Reviewed With: patient, spouse Overall Patient Progress: improvingOverall Patient Progress: improving Outcome Evaluation: Encourage self care and emphasize strengths, helps with anxiety for pt to feel normal. Problem: Adult Inpatient Plan of Care Goal: Optimal Comfort and Wellbeing Outcome: Progressing Intervention: Provide Person-Centered Care Recent Flowsheet Documentation Taken 12/20/2024 1600 by Nicole Pinon RN Trust Relationship/Rapport: care explained questions answered questions encouraged Problem: ( Delivery) Goal: Hemostasis Outcome: Progressing Problem: ( Delivery) Goal: Optimal Pain Control and Function Outcome: Progressing R SITE ASSESSMENT SPECIALIST * Plan of Care - Lizette Rincon RN - 12/20/2024 3:06 PM CST Goal Outcome Evaluation: Plan of Care Reviewed With: patient, spouse Overall Patient Progress: improvingOverall Patient Progress: improving Outcome Evaluation: keep patient informed. patient is anxious, try to help with comforts. Data: Vital signs, assessments WNL. Pt currently has a ashley in place and hasn't been upto the side of the bed. She has only had ice chips after leaving the OR. Lochia and fundal checks WNL, no s/s infection. She is pumping. Reports no pain, but is uncomfortable in the bed, had toradol after delivery. Action: Education provided on discharge goals, plan of care, pain management Response: They stopped by the NICU to see the twins after leaving labor and delivery. Pt is agreeable with plan of care. Support person, Los, present. Plan of care ongoing, no concerns as ofpresent. R SITE ASSESSMENT SPECIALIST * Plan of Care - Lizette Rincon RN - 12/20/2024 2:53 PM CST Patient arrived to [facility] unit via zoom cart at 1335 ,with belongings, accompanied by spouse/ significant other, with infants in the NICU . Received report from MAGUI Marti and checked bands. Unit and room orientation completd. Call light given; no concerns present at this time. Continue with plan of care. R SITE ASSESSMENT SPECIALIST * Plan of Care - Kaia Spence RN - 12/20/2024 1:00 PM CST Pt stable post CS. VSS, assessment WDL. Surgery EBL 800. Toradol and fentanyl given for pain in PACU. Tap block done in OR. Pumping intiated in PACU. Support person at bedside. OUtput adequate from ashley. Alert and oriented post general anesthesia. Anticipate transfer to [facility]. R SITE ASSESSMENT SPECIALIST * Brief Op Note - Joceline Grant MD - 12/20/2024 12:24 PM CST Brief Operative Note Name: Deandre Chávez : 1995 Date of Surgery: 12/20/2024 Pre-operative Diagnosis: - IUP @ 24w4d - [place]-di twin gestation - Selective FGR type III (twin B) - bradycardia Post-operative Diagnosis: - s/p delivery of viable female infants Procedure(s): - STAT primary low transverse section with single layer uterine closure via Pfannenstiel skin incision Surgeon: - Pennie Frank MD Assistants: - Joceline Grant MD, PGY3 - Vitor Alba MD, PGY2 Anesthesia: GETA QBL: 800 mL UOP: 450 mL clear urine Fluids: 300 mL crystalloid Additional Medications: 2g Ancef preop, Methergine Specimens: Cord blood x2, cord segment x2, placenta Complications: None apparent Findings: - Viable female infants delivered at 1056 on December 20, 2024 Weight 720 grams, 550 grams. - Clear amniotic fluid - Normal uterus, tubes, and ovaries. - No adhesions. - Surgical sites noted to be hemostatic at the end of case. - Twin A cord gases: Latest Reference Range & Units 12/20/24 11:07 Ph Cord Arterial 7.16 - 7.39 7.30 PCO2 Cord Arterial 35 - 71 mm Hg 42 PO2 Cord Arterial 10 - 33 mm Hg 36 (H) Bicarbonate Cord Arterial 16 - 24 mmol/L 21 Base Excess/Deficit >-10.0 - -2.0 mmol/L -5.2 Ph Cord Blood Venous 7.21 - 7.45 7.42 PCO2 Cord Venous 27 - 57 mm Hg 34 PO2 Cord Venous 21 - 37 mm Hg 43 (H) Bicarbonate Cord Venous 16 - 24 mmol/L 22 Base Excess/Deficit Cord Venous >-10.0 - -2.0 mmol/L -2.3 - Twin B cord gases: Latest Reference Range & Units 12/20/24 11:08 Ph Cord Arterial 7.16 - 7.39 7.31 PCO2 Cord Arterial 35 - 71 mm Hg 51 PO2 Cord Arterial 10 - 33 mm Hg 21 Bicarbonate Cord Arterial 16 - 24 mmol/L 26 (H) Base Excess/Deficit >-10.0 - -2.0 mmol/L -1.5 (H) Ph Cord Blood Venous 7.21 - 7.45 7.37 PCO2 Cord Venous 27 - 57 mm Hg 42 PO2 Cord Venous 21 - 37 mm Hg 31 Bicarbonate Cord Venous 16 - 24 mmol/L 24 Base Excess/Deficit Cord Venous >-10.0 - -2.0 mmol/L -1.5 (H) (H): Data is abnormally high Joceline Grant MD Gun Sealing Machine Operator PGY-3 12/20/24 12:27 PM R SITE ASSESSMENT SPECIALIST * Provider Notification - Shena Eugene RN - 12/20/2024 10:40 AM SOLAR SITE ASSESSMENT SPECIALIST 12/20/24 1040 Provider Notification Provider Name/Title Dr. Grant Method of Notification Electronic Page Request Evaluate in Person Notification Reason Decels Provider notified regarding the audible deceleration at bedside. R SITE ASSESSMENT SPECIALIST R SITE ASSESSMENT SPECIALIST * Provider Notification - Shena Eugene RN - 12/20/2024 10:30 AM SOLAR SITE ASSESSMENT SPECIALIST 12/20/24 1014 Provider Notification Provider Name/Title Dr. Grant Method of Notification Electronic Page Request Evaluate-Remote Notification Reason Medication Request Patient is feeling anxious and reports as feeling she is going to . VSS. Assessments WNL. Provider requested for the medication for anxiety. Provider ordered Ativan. But, patient does not want to take it and states that she is feeling better now. R SITE ASSESSMENT SPECIALIST * Provider Notification - Shena Eugene RN - 12/20/2024 8:47 AM SOLAR SITE ASSESSMENT SPECIALIST 12/20/24 0847 Provider Notification Provider Name/Title Dr. Grant Method of Notification Electronic Page Request Evaluate in Person Notification Reason Decels Provider notified regarding the variable deceleration of baby B. R SITE ASSESSMENT SPECIALIST R SITE ASSESSMENT SPECIALIST * Plan of Care - Jacob Juárez RN - 12/20/2024 7:11 AM CST VSS, afebrile. Reports active FM x2, see flowsheet for previous RN EFM x2 and toco. Pt has at the bedside. No changes overnight, pt educated on reasons to call out, has call light within reach, and is able to make needs known. SBAR given to Shena Villanueva RN who assumes care at this time. R SITE ASSESSMENT SPECIALIST * Plan of Care - Ruddy Bruno RN - 12/19/2024 9:48 PM SOLAR SITE ASSESSMENT SPECIALIST Goal Outcome Evaluation: Pt states is comfortable, denies pain, feeling ctx's, leaking or bleeding. States feeling baby A and B moving. Babies A and B with moderate variability accels 10x10 present; baby A decel x1 on monitor; Dr Cardenas ok to take off monitor. Linen changed. IV extended Dwell Saline locked flushed. Eating and drinking well. Ambulating around the unit. Kids and mom visiting today. SCDs on while monitoring. at bedside supportive. Cares explained. R SITE ASSESSMENT SPECIALIST * Plan of Care - Xochilt Wright RN - 12/19/2024 2:55 PM CST Data: Maternal status stable. assessment is appropriate for gestational age. Extended monitoring this monitoring.. Action: Continue with plan of care, which is TID and uterine monitoring. Patient encouraged to move extremities while in bed. Response: Patient coping with the plan of with family support.. R SITE ASSESSMENT SPECIALIST * Plan of Care - Jacob Juárez RN - 12/19/2024 7:15 AM CST VSS, afebrile. Pt denies pain, LOF, bleeding, and cxt. Reports active FM x2, see flowsheet for EFM and toco. Pt able to rest throughout the night. Spouse Los at the bedside and had mom, brother, andkids over last night until 2014. Pt educated about reasons to call out, has call light within reachand is able to make needs known. SBAR given to Xochilt Carpio RN who assumes care at this time. R SITE ASSESSMENT SPECIALIST * Plan of Care - Xochilt Wright RN - 12/18/2024 6:23 PM CST Data: Maternal status stable. assessment is normal. Action: Continue with plan of care, which is TID and uterine monitoring. Patient encouraged to move extremities while in bed. Response: Patient coping with the plan of care. W'ill notify the provider with changes.. R SITE ASSESSMENT SPECIALIST * Plan of Care - Sarah Judd RN - 12/18/2024 7:01 AM CST Assumed care at 2300. Able to make needs known, offers no complaints overnight. Per patient requests to be undisturbed overnight. Goal Outcome Evaluation: Progressing, reviewed with patient. R SITE ASSESSMENT SPECIALIST * Plan of Care - Madelyn Feliciano RN - 12/18/2024 12:22 AM CST Pt reports feeling well. Denies having any LOF, vag bleeding or Pre-E sx. Does c/o of nasal congestion/facial pressure since being admitted. Reports having increase in seeing ebony MEDINA aware. No further concerns at this time related to this. Reports good movement throughout the day. Please see labor record for details. Does have UC's towards the end of monitoring which is relieved with voiding. present and supportive. Would like to tour the NICU and discuss with C ENGINEER baby expectations now that she is 24 weeks. This request is per availability of the NICU. Encouraged to call with needs. R SITE ASSESSMENT SPECIALIST * Plan of Care - Xochilt Wright RN - 12/17/2024 4:08 AM CST Data: Maternal status is stable. assessment is appropriate for gestational age... Action: Continue with plan of care, which is TID and uterine monitoring.. Patient encouraged to move extremities while in bed. Response: Patient coping with the plan of care. W'ill notify the provider with changes.. R SITE ASSESSMENT SPECIALIST * Plan of Care - Aure Ochoa RN - 12/16/2024 6:35 PM CST Pt doing well this afternoon, she has no complaints. VSS. Afebrile. Denies LOF, vaginal bleeding, cramping or contractions. Endorses + FM. Denies vision changes, RUQ pain, epigastric pain, shortness of breath, MCKEON and increased swelling. FHT's AGA x2. [place] quiet. Patient aware to call nursing for any questions or concerns. Pt stable at this time. Continue with current POC. R SITE ASSESSMENT SPECIALIST * Provider Notification - Aure Ochoa RN - 12/16/2024 12:30 PM SOLAR SITE ASSESSMENT SPECIALIST 12/16/24 1214 Provider Notification Provider Name/Title Dr. Leach Method of Notification In Department Notification Reason Status Update Dr. Leach notified of category I FHTs x2 for the last 1.5hrs. Plan per provider for pt to come off EFM with plans to monitor again in the afternoon. Per Dr. Leach pt ok to have regular diet at this time. Pt agreed with plan of care. R SITE ASSESSMENT SPECIALIST * Provider Notification - Alexandrea Rockwell RN - 12/16/2024 10:38 AM SOLAR SITE ASSESSMENT SPECIALIST 12/16/24 1038 Provider Notification Provider Name/Title Dr. Leach Method of Notification Electronic Page Request Evaluate - Remote Notification Reason Decels FYI baby B had prolonged decel lasting 2 min with sherrie to 70. Per provider continue to monitor andgive 500 ml bolus. R SITE ASSESSMENT SPECIALIST * Plan of Care - Narda Vegas RN - 12/16/2024 5:26 AM CST Goal Outcome Evaluation: Pt denies ctx, vag bleeding or LOF. No signs of pre-e. VSS. FHT appropriate for gestational age-- Baby B having intermittent decels. Provider aware and okay to take pt off monitor. Pt requesting not to be disturbed throughout night. Endorses positive movement. Able to make needs known, but offers no complaints at this time. Continue with plan of care. R SITE ASSESSMENT SPECIALIST * Plan of Care - Aure Ochoa RN - 12/15/2024 4:35 PM CST Pt has no complaints. VSS. Afebrile. Denies LOF, vaginal bleeding, cramping or contractions. Endorses + FM. Denies vision changes, RUQ pain, epigastric pain, shortness of breath, MCKEON and increased swelling. FHTs AGA x2. [place] quiet. Patient aware to call nursing for any questions or concerns. Pt stable at this time. Continue with current POC. R SITE ASSESSMENT SPECIALIST * Plan of Care - Jackelin Barr RN - 12/15/2024 12:54 AM CST VSS and Afebrile. Pt denies vaginal bleeding, LOF, RUQ pain, or cxt. Reports active movement x2. EFM charted, see flowsheet for detail charting. Pt requested that VS check before bed and morning to promote sleep and rest. Pt educated about reasons to call out, call light within reach. No complaints from pt overnight. Spouse at bedside. Report given to David Cotto RN. R SITE ASSESSMENT SPECIALIST * Plan of Care - Pennie Draper RN - 12/14/2024 9:51 AM CST Pt offers no complaints, happy with 8 hours of sleep. 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 at bedside but will be away for work for a few hours today. Working on puzzle, reading, plans to watch some movies today. SCDs encouraged by MD antonio a.mMorro and pt requested they be placed during monitoring. Pt will call with needs. R SITE ASSESSMENT SPECIALIST * Plan of Care - Jacob Juárez RN - 12/14/2024 7:18 AM CST VSS, afebrile. Pt denies bleeding, cxt, pain, and LOF. Reports active FM x2. Indwelling PIV placed by vascular acces due to iron infusion infiltrating PIV. Pt offered no complaints overnight. Husbandpresent at the bedside. Educated about reasons to call out, has call light within reach and is ableto make needs known. SBAR given to Pennie Randhawa RN who assumes care at this time. R SITE ASSESSMENT SPECIALIST * Plan of Care - Piper Hahn RN - 12/13/2024 9:02 PM CST Goal Outcome Evaluation: Plan of Care Reviewed With: patient Overall Patient Progress: improvingOverall Patient Progress: improving Patient stable this shift. VSS. Denies LOF, cramping/ez or vaginal bleeding. See flow sheet for FHR and contraction pattern. Iron infusion given as ordered, as infusion was finishing, pt noted tenderness at the site, tubing removed and IV flushed effectively, remaining infusion given, though infiltration was noted when discontinuing infusion. IV removed at this time. Offers no obstetrical complaints. Continue with routine cares and will notify provider if there is a change in status. R SITE ASSESSMENT SPECIALIST R SITE ASSESSMENT SPECIALIST * Plan of Care - Brandee Schulte RN - 12/13/2024 2:58 PM CST Patient stable with her mono/di twins, FGR and IAEDF of B. VSS; EFM as charted. Denies pain, contractions, bleeding, loss of fluid. Continue expectant management. R SITE ASSESSMENT SPECIALIST * Plan of Care - Jacob Juárez RN - 12/13/2024 7:10 AM CST VSS, afebrile. Pt denies pain, bleeding, LOF and contractions. Reports active FM x2, see flowsheet for EFM x2 and toco. Pt reported feeling x1 cxt during monitoring. No changes this shift. Pt had mother and 2 kids visiting last evening. at the bedside throughout the night. Pt educated aboutreasons to call out, has call light within reach and is able to make needs known. SBAR given to Brandee Lui RN who assumes care at this time. R SITE ASSESSMENT SPECIALIST * Provider Notification - Jacob Juárez RN - 12/12/2024 10:46 PM SOLAR SITE ASSESSMENT SPECIALIST 12/12/24 2141 Provider Notification Provider Name/Title Dr. Leach Method of Notification In Department Request Evaluate - Remote In department strip review, provider okay for EFM x2 to be removed. Q4 hour vitals while awake alsoapproved for pt per Dr. Leach. R SITE ASSESSMENT SPECIALIST * Plan of Care - Pennie Cullen RN - 12/12/2024 7:06 PM CST Goal Outcome Evaluation: Patient has no complaints this afternoon. She has been walking in the hallways and had a few visitors. R SITE ASSESSMENT SPECIALIST * Plan of Care - Brandee Schulte RN - 12/12/2024 2:46 PM CST Patient here with FGR and intermittent REDF in twin b. VSS; EFM as charted. Denies pain, contractions, bleeding, loss of fluid. Continue expectant management. R SITE ASSESSMENT SPECIALIST * Provider Notification - Brandee Schulte RN - 12/12/2024 8:20 AM CST 12/12/24 0811 Provider Notification Provider Name/Title Dr Leach Method of Notification Phone Request Evaluate - Remote Notification Reason Other (Comment) Reviewed EFM strip with Dr. Leach prior to removing monitors. R SITE ASSESSMENT SPECIALIST * Plan of Care - Diana Hernandez RN - 12/12/2024 6:50 AM CST Pt rested comfortably overnight. VSS. Afebrile. Denies pre-E symptoms. Denies any LOF, bleeding, ctx, pain. FHRs and toco monitoring charted- see flowsheets. Pt complained of breast tenderness earlier in day- provider aware. Pt scanned in by pharmacy- in pt bin. Continue with current plan of care. Pt aware to call nursing with any questions or concerns. Call light in reach. R SITE ASSESSMENT SPECIALIST * Plan of Care - Shena Eugene RN - 12/11/2024 7:24 PM CST Plan of care reviewed with: Deandre and her spouse Los Overall Care: Progressing Outcome Evaluation: Data: Today is hospital day 2. Maternal status WNL. She continues to have GERD issues. Provider sawpatient at bedside and offered options of Carafate and Zofran for relief. She is not ready to try them yet. US done this morning. monitoring done this shift, see flowsheet. Second dose ofbetamethasone administered. Action: Continue with plan of care, which is optimal patient- well being. Time of delivery depends on clinical status. Mode of delivery will be primary . Patient encouraged to be up as tolerated, eat frequent small meals and increase fluid intake as tolerated. Response: She states that she is coping well emotionally and is optimistic. Report given and care transferred to MAGUI Ortiz at 1923. R SITE ASSESSMENT SPECIALIST * Provider Notification - Shena Eugene RN - 12/11/2024 3:46 PM SOLAR SITE ASSESSMENT SPECIALIST 12/11/24 1539 Provider Notification Provider Name/Title Dr. Siegel Method of Notification Electronic Page Request Evaluate - Remote Notification Reason Other (Comment) (Strip reviewed) Strip reviewed with provider in department. Provider okay with removing the EFM. R SITE ASSESSMENT SPECIALIST * Provider Notification - Shena Eugene RN - 12/11/2024 3:20 PM SOLAR SITE ASSESSMENT SPECIALIST 12/11/24 1518 Provider Notification Provider Name/Title Christal Bob Method of Notification Electronic Page Request Evaluate in Person Notification Reason Patient Request Patient had a question/concern regarding her breasts. She feels that they are warm and red. Denies tenderness. She is not currently . She states that it is better than how it was before.Bilateral breasts appear WNL during assessment. She would like this addressed/answered at the next visit/meeting. R SITE ASSESSMENT SPECIALIST * Provider Notification - Shena Eugene RN - 12/11/2024 12:17 PM SOLAR SITE ASSESSMENT SPECIALIST 12/11/24 1216 Provider Notification Provider Name/Title Dr. Siegel Method of Notification Electronic Page Request Evaluate - Remote Notification Reason Patient Request Patient requested to have a review on the plan regarding her GERD. R SITE ASSESSMENT SPECIALIST * Provider Notification - Shena Eugene RN - 12/11/2024 9:22 AM SOLAR SITE ASSESSMENT SPECIALIST 12/11/24 0853 Provider Notification Provider Name/Title Dr. Christal Sparks Method of Notification At Bedside Request Evaluate in Person Notification Reason Status Update Providers at bedside discussing the plan of care with Deandre and her spouse Los. Plan is to do TID monitoring for an hour, US x3 weekly and second dose of betamethasone tonight. R SITE ASSESSMENT SPECIALIST * Provider Notification - Shena Eugene RN - 12/11/2024 8:52 AM SOLAR SITE ASSESSMENT SPECIALIST 12/11/24 0849 Provider Notification Provider Name/Title Dr. Waterman Method of Notification Electronic Page Request Evaluate-Remote Notification Reason Medication Request Patient would like to continue with her home regimen omeprazole 20 mg for GERD and avoid taking more medications. She refused stool softner, TUMS, and pantoprazole. R SITE ASSESSMENT SPECIALIST * Plan of Care - Gilberto Welch RN - 12/11/2024 7:24 AM CST VSS. Pt denies bleeding, LOF, cramping or s/sx of pre-e. EFM for Twin A & Twin B appropriate for gestational age, see flow sheets for more. Still on continuous monitoring at this time. 2nd betamethasone to be given today. Continue observing for any s/sx of maternal or compromise. R SITE ASSESSMENT SPECIALIST * Provider Notification - Gilberto Welch RN - 12/10/2024 9:57 PM CST 12/10/242034 Provider Notification Provider Name/Title Dr. Leach Method of Notification At Bedside Request Evaluate in Person Notification Reason Status Update;SVE Pt having contractions on the monitor. Provider at bedside doing speculum and digital exam. Per provider, pt is closed. 500 mL of IV fluid bolus given. Plan to continue observing. Pt agreeable with plan. R SITE ASSESSMENT SPECIALIST * Plan of Care - Beverly Lara RN - 12/10/2024 4:00 PM CST Data: Patient admitted to room 462 at 1530. Patient is a . record reviewed. OB History Para Term AB Living 3 2 2 0 0 2 SAB IAB Ectopic Multiple Live Births 0 0 0 0 2 # Outcome Date GA Lbr [place]/2nd Weight Sex Type Anes PTL Lv 3 Current 2 Term 04/15/24 40w0d 3.6 kg (7 lb 15 oz) M Vag-Spont HENRY 1 Term 03/22/21 39w0d 2.665 kg (5 lb 14 oz) F HENRY . Medical History: Past Medical History: Diagnosis Date Uncomplicated asthma exercise induced asthma . Gestational age 23w1d. Vital signs per doc flowsheet. movement present. Patient reports fetalmonitoring as reason for admission. Support persons Los present. Action: Verbal consent for EFM, external monitors applied. Admission assessment completed. Patient and support persons educated on admission, and unit information. Patient oriented to room, call light in reach. Response: Dr. De Souza informed of arrival and has seen patient. Plan per provider is admit for monitoring and betamethasone. Patient verbalized understanding of education and verbalized agreement with plan. R SITE ASSESSMENT SPECIALIST R SITE ASSESSMENT SPECIALIST documented in this encounter Plan of Treatment Pending Results Name Type Priority Associated Diagnoses Date /Time Surgical Pathology Exam Pathology and Cytology Routine 12/20/2024 3:49 PM SOLAR SITE ASSESSMENT SPECIALIST EKG 12-lead, complete EKG STAT 12/22/2024 9:49 PM SOLAR SITE ASSESSMENT SPECIALIST Scheduled Orders Name Type Priority Associated Diagnoses Order Schedule Maternal US OB Limited Single/Multiple Imaging Routine One time imaging for 1 Occurrences starting 12/21/2024 until 12/21/2024 Surgical Pathology Exam Pathology and Cytology Routine Routine for 1 Occurrences starting 12/20/2024 until 12/20/2024, 1 completed Scheduled Referrals Name Type Priority Associated Diagnoses Orde r Schedule Home Care Referral Referral Routine: Next available opening S/P section Ordered: 12/23/2024 documented as of this encounter Procedures Procedure Name Priority Date/Time Associated Diagnosis Comments PLATELET COUNT Routine 12/23/2024 8:01 AM SOLAR SITE ASSESSMENT SPECIALIST EXTRA TUBE Routine 12/22/2024 10:33 PM SOLAR SITE ASSESSMENT SPECIALIST EXTRA BLUE TOP TUBE Routine 12/22/2024 1 0:33 PM SOLAR SITE ASSESSMENT SPECIALIST TROPONIN T, HIGH SENSITIVITY STAT 12/22/2024 10:33 PM SOLAR SITE ASSESSMENT SPECIALIST CBC WITH PLATELETS STAT 12/22/2024 10 :33 PM SOLAR SITE ASSESSMENT SPECIALIST EKG 12-LEAD, TRACING ONLY STAT 12/22/2024 9:49 PM SOLAR SITE ASSESSMENT SPECIALIST TYPE AND SCREEN, ADULT Timed 9:07 AM SOLAR SITE ASSESSMENT SPECIALIST ABO/RH TYPE AND SCREEN Timed 9:07 AM SOLAR SITE ASSESSMENT SPECIALIST CBC WITH PLATELETS Timed 12/22/2024 9: 07 AM SOLAR SITE ASSESSMENT SPECIALIST HEMOGLOBIN Routine 12/21/2024 8:23 AM SOLAR SITE ASSESSMENT SPECIALIST EXTRA TUBE Routine 12/20/2024 3:53 PM SOLAR SITE ASSESSMENT SPECIALIST EXTRA PURPLE TOP TUBE Routine 12/20/2024 3:53 PM SOLAR SITE ASSESSMENT SPECIALIST CREATININE Routine 12/20/2024 3:53 PM SOLAR SITE ASSESSMENT SPECIALIST XR ABDOMEN PORT 1 VIEW Routine 11:40 AM SOLAR SITE ASSESSMENT SPECIALIST POC US GUIDANCE NEEDLE PLACEMENT Routine 12/20/2024 11:16 AM SOLAR SITE ASSESSMENT SPECIALIST SECTION 12/20/2024 10:4 8 AM SOLAR SITE ASSESSMENT SPECIALIST POC US GUIDANCE NEEDLE PLACEMENT Routine 12/20/2024 9:33 AM SOLAR SITE ASSESSMENT SPECIALIST TYPE AND SCREEN, ADULT Timed 8:41 AM SOLAR SITE ASSESSMENT SPECIALIST ABO/RH TYPE AND SCREEN Timed 8:41 AM SOLAR SITE ASSESSMENT SPECIALIST CBC WITH PLATELETS Timed 12/19/2024 8: 41 AM SOLAR SITE ASSESSMENT SPECIALIST M TWINS US COMPREHENSIVE F/U Routine 12/19/2024 8:22 AM SOLAR SITE ASSESSMENT SPECIALIST M TWINS US COMPREHENSIVE F/U Routine 12/17/2024 8:33 AM SOLAR SITE ASSESSMENT SPECIALIST TYPE AND SCREEN, ADULT Timed 11:00 AM SOLAR SITE ASSESSMENT SPECIALIST ABO/RH TYPE AND SCREEN Timed 11:00 AM SOLAR SITE ASSESSMENT SPECIALIST CBC WITH PLATELETS Timed 12/16/2024 11 :00 AM SOLAR SITE ASSESSMENT SPECIALIST M US OB LIMITED SINGLE/MULTIPLE Routine 12/15/2024 8:15 AM SOLAR SITE ASSESSMENT SPECIALIST M TWINS US COMPREHENSIVE F/U Routine 12/13/2024 8:06 AM SOLAR SITE ASSESSMENT SPECIALIST TYPE AND SCREEN, ADULT Timed 6:44 AM SOLAR SITE ASSESSMENT SPECIALIST ABO/RH TYPE AND SCREEN Timed 6:44 AM SOLAR SITE ASSESSMENT SPECIALIST CBC WITH PLATELETS Timed 12/13/2024 6: 44 AM SOLAR SITE ASSESSMENT SPECIALIST MFM TWINS US COMPREHENSIVE F/U Routine 12/11/2024 8:23 AM SOLAR SITE ASSESSMENT SPECIALIST GROUP B STREP PCR Routine 12/10/2024 8:4 9 PM SOLAR SITE ASSESSMENT SPECIALIST CBC WITH PLATELETS AND DIFFERENTIAL STAT 12/10/2024 5:21 PM SOLAR SITE ASSESSMENT SPECIALIST TYPE AND SCREEN, ADULT STAT 5:21 PM SOLAR SITE ASSESSMENT SPECIALIST TREPONEMA ABS W REFLEX TO RPR AND TITER STAT 12/10/2024 5:21 PM SOLAR SITE ASSESSMENT SPECIALIST CBC WITH PLATELETS & DIFFERENTIAL STAT 12/10/2024 5:21 PM SOLAR SITE ASSESSMENT SPECIALIST IRON AND IRON BINDING CAPACITY Add-On 12/10/2024 5:21 PM SOLAR SITE ASSESSMENT SPECIALIST FERRITIN Add-On 12/10/2024 5:21 PM SOLAR SITE ASSESSMENT SPECIALIST COMPREHENSIVE METABOLIC PANEL STAT 12/10/2024 5:21 PM SOLAR SITE ASSESSMENT SPECIALIST ABO/RH TYPE AND SCREEN STAT 5:21 PM SOLAR SITE ASSESSMENT SPECIALIST documented in this encounter Results * Platelet count (12/23/2024 8:01 AM SOLAR SITE ASSESSMENT SPECIALIST) Platelet Count 219 150 - 450 10e3/uL 12/23/2024 8:16 AM SOLAR SITE ASSESSMENT SPECIALIST [facility] Blood STRUCTURE OF LEFT UPPER LIMB / Unknown Venipuncture / Unknown 12/23/2024 8:01 AM SOLAR SITE ASSESSMENT SPECIALIST 12/23/2024 8:13 AM SOLAR SITE ASSESSMENT SPECIALIST us Oneil Lyons MD LAB - BLOOD ORDERABLES Final R esult UR [facility]ATORY [facility] Care Lab [address] [facility], [address] [place] [address] * Extra Blue Top Tube (12/22/2024 10:33 PM SOLAR SITE ASSESSMENT SPECIALIST) Hold Specimen JIC 12/22/2024 11:46 PM SOLAR SITE ASSESSMENT SPECIALIST [facility] Blood STRUCTURE OF RIGHT UPPER LIMB / Unknown Venipuncture / Unknown 12/22/2024 10:33 PM SOLAR SITE ASSESSMENT SPECIALIST 12/22/2024 10:42 PM SOLAR SITE ASSESSMENT SPECIALIST us Emil Ahmadi MD LAB - BLOOD ORDERABLES Fin al Result UR LAB[facility]ATORY [facility] Acute Care Lab [address] [facility], [address] [place] [address] * (ABNORMAL) CBC with platelets (12/22/2024 10:33 PM SOLAR SITE ASSESSMENT SPECIALIST) WBC Count 3.6(L) 4.0 - 11.0 10e3/uL 12/22/2024 10:45 PM SOLAR SITE ASSESSMENT SPECIALIST [facility] RBC Count 3.78(L) 3.80 - 5.20 10e6/uL 12/22/2024 10:45 PM SOLAR SITE ASSESSMENT SPECIALIST [facility] Hemoglobin 9.4(L) 11.7 - 15.7 g/dL 12/22/2024 10:45 PM SOLAR SITE ASSESSMENT SPECIALIST [facility] Hematocrit 30.5(L) 35.0 - 47.0 % 12/22/2024 10:45 PM SOLAR SITE ASSESSMENT SPECIALIST [facility] MCV 81 78 - 100 fL 12/22/2024 10:45 PM SOLAR SITE ASSESSMENT SPECIALIST [facility] MCH 24.9(L) 26.5 - 33.0 pg 12/22/2024 10:45 PM SOLAR SITE ASSESSMENT SPECIALIST [facility] MCHC 30.8(L) 31.5 - 36.5 g/dL 12/22/2024 10:45 PM SOLAR SITE ASSESSMENT SPECIALIST [facility] RDW 18.0(H) 10.0 - 15.0 % 12/22/2024 10:45 PM SOLAR SITE ASSESSMENT SPECIALIST [facility] Platelet Count 219 150 - 450 10e3/uL 12/22/2024 10:45 PM SOLAR SITE ASSESSMENT SPECIALIST [facility] Blood STRUCTURE OF RIGHT UPPER LIMB / Unknown Venipuncture / Unknown 12/22/2024 10:33 PM SOLAR SITE ASSESSMENT SPECIALIST 12/22/2024 10:39 PM SOLAR SITE ASSESSMENT SPECIALIST us Cameron Leach MD LAB - BLOOD ORDERABLES Final Res ult UR LAB[facility]AT[facility] Acute Care Lab [address] [facility], [address] [phone] * Troponin T, High Sensitivity (12/22/2024 10:33 PM SOLAR SITE ASSESSMENT SPECIALIST) Troponin T, High Sensitivity <6 <=14 ng/L 12/22/2024 11:01 PM SOLAR SITE ASSESSMENT SPECIALIST [facility] Comment: Either a High Sensitivity Troponin T baseline (0 hours) value = 100 ng/L, or an increase in High Sensitivity Troponin T = 7 ng/L at 2 hours compared to 0 hours (2-0 hours), suggests myocardial injury, and urgent clinical attention is required. If the 2-0 hours increase is <7 ng/L, a High Sensitivity Troponin T result above gender-specific reference ranges warrants further evaluation. Recommendations for further evaluation include correlation with clinical decision-making tool (e.g., HEART), a 3rd High Sensitivity Troponin T test 2 hours after the 2nd (a 20% change from baseline would represent concern), admission for observation, close PCC/cardiology follow-up, or urgent outpatient provocative testing. Blood STRUCTURE OF RIGHT UPPER LIMB / Unknown Venipuncture / Unknown 12/22/2024 10:33 PM SOLAR SITE ASSESSMENT SPECIALIST 12/22/2024 10:39 PM SOLAR SITE ASSESSMENT SPECIALIST Cameron Leach MD LAB - BLOOD ORDERABLES Final Res ult UR LAB[facility]AT[facility] Acute Care Lab [address] [facility], [address] [phone] * Adult Type and Screen (12/22/2024 9:07 AM SOLAR SITE ASSESSMENT SPECIALIST) ABO/RH(D) O POS 12/22/2024 6:00 AM SOLAR SITE ASSESSMENT SPECIALIST [facility] B[facility] Antibody Screen Negative Negative 12/22/2024 6:00 AM SOLAR SITE ASSESSMENT SPECIALIST UR [facility] SPECIMEN EXPIRATION DATE [id number] 12/22/2024 6:00 AM SOLAR SITE ASSESSMENT SPECIALIST UR B[facility] B[facility] Blood STRUCTURE OF RIGHT UPPER LIMB / Unknown Venipuncture / Unknown 12/22/2024 9:07 AM SOLAR SITE ASSESSMENT SPECIALIST 12/22/2024 9:14 AM SOLAR SITE ASSESSMENT SPECIALIST Cameron Leach MD LAB - BLOOD BANK TEST ORDER Yenny l Result UR BLOOD BANK [facility] [address] [facility], [address] [place] [address] * (ABNORMAL) CBC with platelets (12/22/2024 9:07 AM SOLAR SITE ASSESSMENT SPECIALIST) [facility] WBC Count 4.7 4.0 - 11.0 10e3/uL 12/22/2024 9:19 AM SOLAR SITE ASSESSMENT SPECIALIST UR [facility] RBC Count 3.92 3.80 - 5.20 10e6/uL 12/22/2024 9:19 AM SOLAR SITE ASSESSMENT SPECIALIST [facility] Hemoglobin 10.0(L) 11.7 - 15.7 g/dL 12/22/2024 9:19 AM SOLAR SITE ASSESSMENT SPECIALIST [facility] LABORATORY Hematocrit 31.8(L) 35.0 - 47.0 % 12/22/2024 9:19 AM SOLAR SITE ASSESSMENT SPECIALIST UR LABORATORY MCV 81 78 - 100 fL 12/22/2024 9:19 AM SOLAR SITE ASSESSMENT SPECIALIST UR LABORATORY MCH 25.5(L) 26.5 - 33.0 pg 12/22/2024 9:19 AM SOLAR SITE ASSESSMENT SPECIALIST UR LAB[facility]ATORY MCHC 31.4(L) 31.5 - 36.5 g/dL 12/22/2024 9:19 AM SOLAR SITE ASSESSMENT SPECIALIST UR LABORATORY RDW 18.1(H) 10.0 - 15.0 % 12/22/2024 9:19 AM SOLAR SITE ASSESSMENT SPECIALIST [facility] LABORATORY Platelet Count 218 150 - 450 10e3/uL 12/22/2024 9:19 AM SOLAR SITE ASSESSMENT SPECIALIST UR LABORATORY Blood STRUCTURE OF RIGHT UPPER LIMB / Unknown Venipuncture / Unknown 12/22/2024 9:07 AM SOLAR SITE ASSESSMENT SPECIALIST 12/22/2024 9:14 AM SOLAR SITE ASSESSMENT SPECIALIST Cameron Leach MD LAB - BLOOD ORDERABLES Final Res ult UR LABORATORY [facility] Acute Care Lab [address] [facility], [address] [place] [address] * (ABNORMAL) Hemoglobin (12/21/2024 8:23 AM SOLAR SITE ASSESSMENT SPECIALIST) Hemoglobin 9.3(L) 11.7 - 15.7 g/dL 12/21/2024 8:41 AM SOLAR SITE ASSESSMENT SPECIALIST UR LABORATORY Blood BLOOD SPECIMEN / Unknown Venipuncture / Unknown 12/21/2024 8:23 AM SOLAR SITE ASSESSMENT SPECIALIST 12/21/2024 8:37 AM SOLAR SITE ASSESSMENT SPECIALIST Oneil Lyons MD LAB - BLOOD ORDERABLES Final R esult UR LABORATORY [facility] Acute Care Lab [address] [place] [address], Room [address] [phone] * Extra Purple Top Tube (12/20/2024 3:53 PM SOLAR SITE ASSESSMENT SPECIALIST) Hold Specimen JIC 12/20/2024 5:03 PM SOLAR SITE ASSESSMENT SPECIALIST UR LABORATORY Blood STRUCTURE OF RIGHT UPPER LIMB / Unknown Venipuncture / Unknown 12/20/2024 3:53 PM SOLAR SITE ASSESSMENT SPECIALIST 12/20/2024 3:58 PM SOLAR SITE ASSESSMENT SPECIALIST Emil Ahmadi MD LAB - BLOOD ORDERABLES Fin al Result Performing Organization Address City/[facility]/ZIP Co de Phone Number UR LABORATORY [facility] Acute Care Lab [address] [place] [address], [address] [phone] * Creatinine (12/20/2024 3:53 PM SOLAR SITE ASSESSMENT SPECIALIST) Creatinine 0.53 0.51 - 0.95 mg/dL 12/20/2024 4:25 PM SOLAR SITE ASSESSMENT SPECIALIST UR LABORATORY GFR Estimate >90 >60 mL/min/1.7 3m2 12/20/2024 4:25 PM SOLAR SITE ASSESSMENT SPECIALIST UR LABORATORY Comment:eGFR calculated us2020 CKD-EPI equation. Blood STRUCTURE OF RIGHT UPPER LIMB / Unknown Venipuncture / Unknown 12/20/2024 3:53 PM SOLAR SITE ASSESSMENT SPECIALIST 12/20/2024 3:58 PM SOLAR SITE ASSESSMENT SPECIALIST Oneil Lyons MD LAB - BLOOD ORDERABLES Final R esult UR LABORATORY [facility] Acute Care Lab [address] [facility], [address] [place] [address], [facility] * XR Abdomen Port 1 View (12/20/2024 11:40 AM SOLAR SITE ASSESSMENT SPECIALIST) Anatomical Region Laterality Modality Abdomen/Pelvis Computed Radiogr aphy Impressions 12/20/2024 11:45 AM SOLAR SITE ASSESSMENT SPECIALIST Impression: Curvilinear radiopacities overlying the right upper radiograph overlying the right inferior ribs, indeterminate, question external to the patient. Consider correlation. Otherwise no radiopaque instrument or needle visualized overlying the pelvis in field of view of the radiograph Finding of indeterminate radiopacity communicated to operating room personnel by Zachary at 11:30 AM 12/20/2024 MARY SHARMA MD Narrative 12/20/2024 11:45 AM SOLAR SITE ASSESSMENT SPECIALIST Exam: XR ABDOMEN PORT 1 VIEW, 12/20/2024 11:31 AM Indication: Stat , no instrument count Comparison: None Findings: Nonspecific bowel gas pattern. Moderate colonic stool burden. Rounded radiopacities in the pelvis likely phlebolith. Curvilinear radiopacity overlying the right upper quadrant overlying the inferior ribs, possibly external to the patient. Consider correlation. Procedure Note Mary Sharma MD - 12/20/2024 Exam: XR ABDOMEN PORT 1 VIEW, 12/20/2024 11:31 AM Indication: Stat , no instrument count Comparison: None Findings: Nonspecific bowel gas pattern. Moderate colonic stool burden. Rounded radiopacities in the pelvis likely phlebolith. Curvilinear radiopacity overlying the right upper quadrant overlying the inferior ribs, possibly external to the patient. Consider correlation. Impression: Curvilinear radiopacities overlying the right upper radiograph overlying the right inferior ribs, indeterminate, question external to the patient. Consider correlation. Otherwise no radiopaque instrument or needle visualized overlying the pelvis in field of view of the radiograph Finding of indeterminate radiopacity communicated to operating room personnel by Zachary at 11:30 AM 12/20/2024 MARY SHARMA MD Pennie Frank MD IMG DIAGNOSTIC IMAGING ORDERA BLES Final Result * POC US Guidance Needle Placement (12/20/2024 11:16 AM SOLAR SITE ASSESSMENT SPECIALIST) Anatomical Region Laterality Modality Other Impressions 12/20/2024 11:16 AM SOLAR SITE ASSESSMENT SPECIALIST Transversus abdominus plane block, bilateral Eneida Sanon MD IMG POCUS Final Result * POC US Guidance Needle Placement (12/20/2024 9:33 AM SOLAR SITE ASSESSMENT SPECIALIST) Anatomical Region Laterality Modality Other Impressions 12/20/2024 9:33 AM SOLAR SITE ASSESSMENT SPECIALIST Bilateral transverus abdominal plane block. Narrative 12/20/2024 9:33 AM SOLAR SITE ASSESSMENT SPECIALIST Bilateral transverus abdominal plane block. Evangelina Helm MD IMG POCUS Final Result * Adult Type and Screen (12/19/2024 8:41 AM SOLAR SITE ASSESSMENT SPECIALIST) ABO/RH(D) O POS 12/19/2024 6:00 AM SOLAR SITE ASSESSMENT SPECIALIST UR BLOOD BANK Antibody Screen Negative Negative 12/19/2024 6:00 AM SOLAR SITE ASSESSMENT SPECIALIST UR BLOOD BANK SPECIMEN EXPIRATION DATE [id number] 12/19/2024 6:00 AM SOLAR SITE ASSESSMENT SPECIALIST UR BLOOD BANK Blood BLOOD SPECIMEN / Unknown Venipuncture / Unknown 12/19/2024 8:41 AM SOLAR SITE ASSESSMENT SPECIALIST 12/19/2024 8:46 AM SOLAR SITE ASSESSMENT SPECIALIST Cameron Leach MD LAB - BLOOD BANK TEST ORDER Yenny l Result UR BLOOD BANK [facility] [place] Blood Components Lab [facility] [facility], [address] [place] [address] * (ABNORMAL) CBC with platelets (12/19/2024 8:41 AM SOLAR SITE ASSESSMENT SPECIALIST) WBC Count 5.7 4.0 - 11.0 10e3/uL 12/19/2024 8:49 AM SOLAR SITE ASSESSMENT SPECIALIST UR LABORATORY RBC Count 4.03 3.80 - 5.20 10e6/uL 12/19/2024 8:49 AM SOLAR SITE ASSESSMENT SPECIALIST UR LABORATORY Hemoglobin 9.8(L) 11.7 - 15.7 g/dL 12/19/2024 8:49 AM SOLAR SITE ASSESSMENT SPECIALIST UR LABORATORY Hematocrit 32.3(L) 35.0 - 47.0 % 12/19/2024 8:49 AM SOLAR SITE ASSESSMENT SPECIALIST UR LABORATORY MCV 80 78 - 100 fL 12/19/2024 8:49 AM SOLAR SITE ASSESSMENT SPECIALIST UR LABORATORY MCH 24.3(L) 26.5 - 33.0 pg 12/19/2024 8:49 AM SOLAR SITE ASSESSMENT SPECIALIST UR LABORATORY MCHC 30.3(L) 31.5 - 36.5 g/dL 12/19/2024 8:49 AM SOLAR SITE ASSESSMENT SPECIALIST UR LABORATORY RDW 16.8(H) 10.0 - 15.0 % 12/19/2024 8:49 AM SOLAR SITE ASSESSMENT SPECIALIST UR LABORATORY Platelet Count 215 150 - 450 10e3/uL 12/19/2024 8:49 AM SOLAR SITE ASSESSMENT SPECIALIST UR LABORATORY Blood BLOOD SPECIMEN / Unknown Venipuncture / Unknown 12/19/2024 8:41 AM SOLAR SITE ASSESSMENT SPECIALIST 12/19/2024 8:47 AM SOLAR SITE ASSESSMENT SPECIALIST us Cameron Leach MD LAB - BLOOD ORDERABLES Final Res ult UR LABORATORY [facility] Acute Care Lab [address] [facility], [address] [place] [address], [facility] * MFM Twins US Comprehensive F/U (12/19/2024 8:22 AM SOLAR SITE ASSESSMENT SPECIALIST) Anatomical Region Laterality Modality Ultrasound 12/19/2024 7:12 AM SOLAR SITE ASSESSMENT SPECIALIST Impressions 12/19/2024 8:29 AM SOLAR SITE ASSESSMENT SPECIALIST IMPRESSION ----- Monochorionic diamniotic twin gestation with type 3 selective FGR of fetus 2 at 24w 6d gestational age. Fetus 1 1. A normal bladder was visualized. 2. The amniotic fluid volume appeared normal. 3. The umbilical artery Doppler studies were normal. 4. The middle cerebral artery Doppler studies were within normal limits. 5. The ductus venosus studies were within normal limits. 6. New finding of intermittent premature atrial contractions. Fetus 2 1. A normal bladder was visualized. 2. The amniotic fluid volume appeared normal. 3. The umbilical artery Doppler studies were abnormal: Intermittent Reversed End Diastolic Flow with periods of absent end diastolic flow and forward end diastolic flow. 4. The middle cerebral artery Doppler studies were at the upper limits of normal with MCA PSV right at 1.5 MoM. 5. The ductus venosus studies showed intermittent periods of reversed a-wave as well as depressed A-wave. Today's ultrasound is again concerning for selective FGR of twin 2. Narrative 12/19/2024 8:29 AM [facility] Surveillance US ----- Pat. Name: DEANDRE CHÁVEZ Study Date: 12/19/2024 7:12am Pat. NO: [id number] Referring : PAMELA CUELLAR Site: Artifacts Conservator: Piper Huynh RDMS : 1995 Age: 29 ----- INDICATION ----- INPATIENT Abnormal UA Doppler and Ductus Venosus waveforms Monochorionic-Diamniotic Twin Gestation Selective Growth Restriction (FGR) fetus 2 Circumvallate placenta METHOD ----- [facility] inpatient exam. Transabdominal ultrasound examination. View: Sufficient. ----- Twin . Number of fetuses: 2. Monochorionic-diamniotic Membrane Description: thin dividing membrane visualized between fetuses 1 and 2 DATING ----- Date Details Gest. age RUDI LMP 07/01/2024 24 w + 3 d 04/07/2025 Previous U/S 08/27/2024 GA, GA 7 w + 6 d 24 w + 1 d 04/09/2025 Assigned dating based on the LMP, selected on 11/22/2024 24 w + 3 d 04/07/2025 Fetus 1: GENERAL EVALUATION ----- Cardiac activity Arrhythmia. FHR 149 bpm. movements: visualized. Presentation: cephalic, maternal left. Presenting. Placenta: Placental site: anterior, no previa, thin dividing membrane Umbilical cord: Cord vessels: 3 vessel cord. Insertion site: normal insertion Amniotic fluid: Amount of AF: normal. MVP 6.9 cm Fetus 2: GENERAL EVALUATION ----- Cardiac activity present. FHR 158 bpm. movements: visualized. Presentation: breech, maternal right. Placenta: Placental site: anterior, no previa, thin dividing membrane Umbilical cord: Cord vessels: 3 vessel cord. Insertion site: normal insertion Amniotic fluid: Amount of AF: normal. MVP 5.9 cm Fetus 1: DOPPLER ----- Umbilical Artery: normal. Sampling site: midcord PI 1.17 62% Ramírez HR 138 bpm Mid Cerebral Artery: normal PS 29.15 cm/s PS 0.93 MoM Ductus Venosus: normal A-wave normal A wave Fetus 2: DOPPLER ----- Umbilical Artery: abnormal, Intermittent Reversed End Diastolic Flow. Sampling site: midcord Mid Cerebral Artery: abnormal PS 47.02 cm/s PS 1.50 MoM Ductus Venosus: abnormal A-wave intermittent reversed end-diastolic flow Fetus 1: TTTS ASSESSMENT ----- Cardiac activity: Arrhythmia Placental location: anterior, no previa, thin dividing membrane Placental cord insertion: normal insertion bladder: normal hydrops: No MVP: 6.9 cm MCA PSV: 29.15 cm/s MCA MoM: 0.93 UA PI: 1.17, 62% Ductus Venosus: normal Fetus 2: TTTS ASSESSMENT ----- Cardiac activity: present Placental location: anterior, no previa, thin dividing membrane Placental cord insertion: normal insertion bladder: normal hydrops: No MVP: 5.9 cm MCA PSV: 47.02 cm/s MCA MoM: 1.5 UA PI: reversed Ductus Venosus: abnormal RECOMMENDATION ----- See inpatient collaborative care. Will continue with close surveillance of status as an inpatient, with three times a week US and three times a day extended monitoring. Procedure Note Emil Ahmadi MD - 12/19/2024 Surveillance US ----- Pat. Name: DEANDRE CHÁVEZ Study Date: 12/19/2024 7:12am Pat. NO: [id number] Referring MD: PAMELA CUELLAR Site: Artifacts Conservator: Piper Huynh RDMS : 1995 Age: 29 ----- INDICATION ----- INPATIENT Abnormal UA Doppler and Ductus Venosus waveforms Monochorionic-Diamniotic Twin Gestation Selective Growth Restriction (FGR) fetus 2 Circumvallate placenta METHOD ----- [facility] inpatient exam. Transabdominal ultrasound examination.View: Sufficient. ----- Twin . Number of fetuses: 2. Monochorionic-diamniotic Membrane Description: thin dividing membrane visualized between fetuses 1and 2 DATING ----- DateDetailsGest. age RUDI LMP w + 3 d 04/07/2025 Previous U/S 08/27/2024 GA, GA7 w + 6 d24 w + 1 d 04/09/2025 Assigned dating based on the LMP, selected on w + 3 d 04/07/2025 Fetus 1: GENERAL EVALUATION ----- Cardiac activity Arrhythmia. FHR 149 bpm. movements: visualized.Presentation: cephalic, maternal left. Presenting. Placenta: Placental site: anterior, no previa, thin dividing membrane Umbilical cord: Cord vessels: 3 vessel cord. Insertion site: normalinsertion Amniotic fluid: Amount of AF: normal. MVP 6.9 cm Fetus 2: GENERAL EVALUATION ----- Cardiac activity present. FHR 158 bpm. movements: visualized.Presentation: breech, maternal right. Placenta: Placental site: anterior, no previa, thin dividing membrane Umbilical cord: Cord vessels: 3 vessel cord. Insertion site: normalinsertion Amniotic fluid: Amount of AF: normal. MVP 5.9 cm Fetus 1: DOPPLER ----- Umbilical Artery: normal. Sampling site: midcord PI 1.1762%Ramírez HR 138bpm Mid Cerebral Artery: normal PS 29.15cm/s PS 0.93MoM Ductus Venosus: normal A-wavenormal A wave Fetus 2: DOPPLER ----- Umbilical Artery: abnormal, Intermittent Reversed End Diastolic Flow.Sampling site: midcord Mid Cerebral Artery: abnormal PS 47.02cm/s PS 1.50MoM Ductus Venosus: abnormal A-waveintermittent reversed end-diastolic flow Fetus 1: TTTS ASSESSMENT ----- Cardiac activity: Arrhythmia Placental location: anterior, no previa, thin dividing membrane Placental cord insertion: normal insertion bladder: normal hydrops: No MVP: 6.9 cm MCA PSV: 29.15 cm/s MCA MoM: 0.93 UA PI: 1.17, 62% Ductus Venosus: normal Fetus 2: TTTS ASSESSMENT ----- Cardiac activity: present Placental location: anterior, no previa, thin dividing membrane Placental cord insertion: normal insertion bladder: normal hydrops: No MVP: 5.9 cm MCA PSV: 47.02 cm/s MCA MoM: 1.5 UA PI: reversed Ductus Venosus: abnormal RECOMMENDATION ----- See inpatient collaborative care. Will continue with close surveillance of status as an inpatient,with three times a week US and three times a day extended fetalmonitoring. IMPRESSION ----- Monochorionic diamniotic twin gestation with type 3 selective FGR of fetus2 at 24w 6d gestational age. Fetus 1 1. A normal bladder was visualized. 2. The amniotic fluid volume appeared normal. 3. The umbilical artery Doppler studies were normal. 4. The middle cerebral artery Doppler studies were within normal limits. 5. The ductus venosus studies were within normal limits. 6. New finding of intermittent premature atrial contractions. Fetus 2 1. A normal bladder was visualized. 2. The amniotic fluid volume appeared normal. 3. The umbilical artery Doppler studies were abnormal: IntermittentReversed End Diastolic Flow with periods of absent end diastolic flow andforward end diastolic flow. 4. The middle cerebral artery Doppler studies were at the upper limits ofnormal with MCA PSV right at 1.5 MoM. 5. The ductus venosus studies showed intermittent periods of reverseda-wave as well as depressed A-wave. Today's ultrasound is again concerning for selective FGR of twin 2. us Joceline Grant MD [facility] US ORDERABLES Edited Res ult - Final * [facility] Twins US Comprehensive F/U (12/17/2024 8:33 AM SOLAR SITE ASSESSMENT SPECIALIST) Anatomical Region Laterality Modality Ultrasound 12/17/2024 7:09 AM SOLAR SITE ASSESSMENT SPECIALIST Impressions 12/17/2024 9:32 AM SOLAR SITE ASSESSMENT SPECIALIST IMPRESSION ----- Monochorionic diamniotic twin gestation at 24w 1d gestational age with selective growth restriction of twin 2. Fetus 1 1. None of the anomalies commonly detected by ultrasound were evident in the detailed anatomic survey described above. 2. Growth parameters and estimated weight were appropriate for gestational age. EFW 53%. 3. The amniotic fluid volume was within normal limits. A normal bladder was visualized. 4. The [...] estimated weight were consistent with severe growth restriction with EFW <1%. The inter-twin discordance was 33 %. 3. The amniotic fluid volume appeared normal with MVP 6.0 cm. A normal bladder was visualized. 4. The umbilical artery Doppler studies were abnormal with persistent absent end diastolic flow with intermittent reversed end diastolic flow. 5. The middle cerebral artery Doppler studies were within normal limits. 6. The ductus venosus studies were stable with attenuated 'a' wave but no 'a' wave reversal. Placenta appears to still be slightly circumvallate in some areas. Narrative 12/17/2024 9:32 AM SOLAR SITE ASSESSMENT SPECIALIST Comp Follow Up ----- Pat. Name: DEANDRE CHÁVEZ Study Date: 12/17/2024 7:09am Pat. NO: [id number] Referring MD: PAMELA CUELLAR Site: Artifacts Conservator: Claudia Arauz RDMS : 1995 Age: 29 ----- INDICATION ----- INPATIENT Abnormal UA Doppler and Ductus Venosus waveforms Monochorionic-Diamniotic Twin Gestation Selective Growth Restriction (FGR) fetus 2 Circumvallate placenta METHOD ----- [facility] inpatient exam. Transabdominal ultrasound examination. View: Sufficient ----- Twin . Number of fetuses: 2. Monochorionic-diamniotic Membrane Description: thin dividing membrane visualized between fetuses 1 and 2 DATING ----- Date Details Gest. age RUDI LMP 07/01/2024 24 w + 1 d 04/07/2025 Previous U/S 08/27/2024 GA, GA 7 w + 6 d 23 w + 6 d 04/09/2025 U/S Fetus 1 12/17/2024 based upon AC, BPD, Femur, HC 24 w + 2 d 04/06/2025 U/S Fetus 2 based upon AC, BPD, Femur, HC 22 w + 3 d 04/19/2025 Assigned dating based on the LMP, selected on 11/22/2024 24 w + 1 d 04/07/2025 Fetus 1: GENERAL EVALUATION ----- Cardiac activity present. FHR 133 bpm. movements: present. Presentation: cephalic, maternal left, presenting Placenta: Anterior, No Previa, > 2 cm from internal os. Circumvallate. Umbilical cord: 3 vessel cord Amniotic fluid: Amount of AF: normal. MVP 7.4 cm No evidence of hydrops on today's exam. Fetus 2: GENERAL EVALUATION ----- Cardiac activity present. FHR 151 bpm. movements: present. Presentation: breech, maternal right. Placenta: Anterior, No Previa, > 2 cm from internal os. Circumvallate. Umbilical cord: 3 vessel cord Amniotic fluid: Amount of AF: normal. MVP 5.5 cm No evidence of hydrops on today's exam. Fetus 1: BIOMETRY ----- BPD 60.0 mm 24w 3d Hadlock OFD 78.6 mm 23w 6d Nicolaides HC 220.2 mm 24w 0d Hadlock Cerebellum tr 26.0 mm 24w 0d Nicolaides AC 200.8 mm 24w 5d 60% Hadlock Femur 43.0 mm 24w 0d Hadlock Weight Calculation: EFW 692 g 53% Hadlock EFW (lb,oz) 1 lb 8 oz EFW by Hadlock ([id number]) EFW discordance 33.0 % Head / Face / Neck Biometry: Bench Hand Machine 7.8 mm CM 2.9 mm Fetus 2: BIOMETRY ----- BPD 56.3 mm 23w 1d Hadlock OFD 74.5 mm 22w 6d Nicolaides HC 208.0 mm 22w 6d Hadlock Cerebellum tr 25.2 mm 23w 1d Nicolaides AC 172.0 mm 22w 1d 3% Hadlock Femur 35.8 mm 21w 2d Hadlock Humerus 31.7 mm 20w 4d Manav Weight Calculation: EFW 464 g <1% Hadlock EFW (lb,oz) 1 lb 0 oz EFW by Hadlock ([id number]) EFW discordance 33.0 % Head / Face / Neck Biometry: Bench Hand Machine 7.9 mm CM 2.9 mm Extremities / Bony Struc Biometry: Radius 28.9 mm 12% Valadez Ulna 31.8 mm 2% Valadez Tibia 31.3 mm 3% Valadez Fibula 29.9 mm 5% Valadez Fetus 1: ANATOMY ----- The following structures appear normal: Head / Neck Cranium. Head size. Head shape. Lateral ventricles. Midline falx. Cavum septi pellucidi. Cerebellum. Cisterna magna. Thalami. Face Lips. Profile. Nose. Heart / Thorax LVOT view. Diaphragm. Abdomen Stomach. Kidneys. Bladder. Spine Cervical spine. Thoracic spine. Lumbar spine. Sacral spine. The following structures were documented previously: Heart / Thorax 4-chamber view. RVOT view. 2-crsutw-orzygzr view. sex: female. Fetus 2: ANATOMY ----- The following structures appear normal: Head / Neck Cranium. Head size. Head shape. Lateral ventricles. Midline falx. Cavum septi pellucidi. Cerebellum. Cisterna magna. Face Lips. Profile. Nose. Heart / Thorax 4-chamber view. RVOT view. LVOT view. 1-jgpjkh-ffafpth view. Diaphragm. Abdomen Stomach. Kidneys. Bladder. Spine Cervical spine. Thoracic spine. Lumbar spine. Sacral spine. sex: female. Fetus 1: TTTS ASSESSMENT ----- Cardiac activity: present Placental location: Anterior Placental cord insertion: normal bladder: normal hydrops: No MVP: 7.4 cm MCA PSV: 29.53 cm/s MCA MoM: 0.96 UA PI: 1.17, 60% Ductus Venosus: normal Fetus 2: TTTS ASSESSMENT ----- Cardiac activity: present Placental location: Anterior Placental cord insertion: normal bladder: normal hydrops: No MVP: 5.5 cm MCA PSV: 43.87 cm/s MCA MoM: 1.42 UA PI: Intermittent absent diastolic flow Ductus Venosus: normal Fetus 1: DOPPLER ----- Umbilical Artery: normal. Sampling site: midcord PI 1.17 60% Ramírez HR 139 bpm Mid Cerebral Artery: normal PS 29.53 cm/s PS 0.96 MoM Fetus 2: DOPPLER ----- Umbilical Artery: abnormal, Intermittent Absent End Diastolic Flow. Sampling site: midcord Mid Cerebral Artery: normal PS 43.87 cm/s PS 1.42 MoM MATERNAL STRUCTURES ----- Cervix Suboptimal Right Ovary Not examined Left Ovary Not examined RECOMMENDATION ----- See inpatient collaborative care. Anticipate hospitalization for close surveillance, until delivery which is recommended at 30-32 weeks gestation. Procedure Note Emil Ahmadi MD - 12/17/2024 Comp Follow Up ----- Pat. Name: DEANDRE CHÁVEZ Study Date: 12/17/2024 7:09am Pat. NO: [id number] Referring MD: PAMELA CUELLAR Site: Artifacts Conservator: Claudia Arauz RDMS : 1995 Age: 29 ----- INDICATION ----- INPATIENT Abnormal UA Doppler and Ductus Venosus waveforms Monochorionic-Diamniotic Twin Gestation Selective Growth Restriction (FGR) fetus 2 Circumvallate placenta METHOD ----- [facility] inpatient exam. Transabdominal ultrasound examination.View: Sufficient ----- Twin . Number of fetuses: 2. Monochorionic-diamniotic Membrane Description: thin dividing membrane visualized between fetuses 1and 2 DATING ----- DateDetailsGest. age RUDI LMP w + 1 d 04/07/2025 Previous U/S 08/27/2024 GA, GA7 w + 6 d23 w + 6 d 04/09/2025 U/S Fetus 1 12/17/2024 basedupon AC, BPD, Femur, HC 24w + 2 d 04/06/2025 U/S Fetus 2based upon AC, BPD, Femur, HC22 w + 3 d 04/19/2025 Assigned dating based on the LMP, selected on w + 1 d 04/07/2025 Fetus 1: GENERAL EVALUATION ----- Cardiac activity present. FHR 133 bpm. movements: present.Presentation: cephalic, maternal left, presenting Placenta: Anterior, No Previa, > 2 cm from internal os. Circumvallate. Umbilical cord: 3 vessel cord Amniotic fluid: Amount of AF: normal. MVP 7.4 cm No evidence of hydrops on today's exam. Fetus 2: GENERAL EVALUATION ----- Cardiac activity present. FHR 151 bpm. movements: present.Presentation: breech, maternal right. Placenta: Anterior, No Previa, > 2 cm from internal os. Circumvallate. Umbilical cord: 3 vessel cord Amniotic fluid: Amount of AF: normal. MVP 5.5 cm No evidence of hydrops on today's exam. Fetus 1: BIOMETRY ----- BPD 60.0mm 24w 3dHadlock OFD 78.6mm 23w 6dNicolaides HC 220.2mm 24w 0dHadlock Cerebellum tr 26.0mm 24w 0dNicolaides AC 200.8mm 24w 5d 60%Hadlock Femur 43.0mm 24w 0dHadlock Weight Calculation: EFW 692g 53%Hadlock EFW (lb,oz) 1 lb 8oz EFW by Hadlock([id number]) EFW discordance 33.0% Head / Face / Neck Biometry: Bench Hand Machine 7.8mm CM 2.9mm Fetus 2: BIOMETRY ----- BPD 56.3mm 23w 1dHadlock OFD 74.5mm 22w 6dNicolaides HC 208.0mm 22w 6dHadlock Cerebellum tr 25.2mm 23w 1dNicolaides AC 172.0mm 22w 1d 3%Hadlock Femur 35.8mm 21w 2dHadlock Humerus 31.7mm 20w 4dJeanty Weight Calculation: EFW 464g <1%Hadlock EFW (lb,oz) 1 lb 0oz EFW by Hadlock([id number]) EFW discordance 33.0% Head / Face / Neck Biometry: Bench Hand Machine 7.9mm CM 2.9mm Extremities / Bony Struc Biometry: Radius 28.9mm 12%Valadez Ulna 31.8mm 2%Valadez Tibia 31.3mm 3%Valadez Fibula 29.9mm 5%Valadez Fetus 1: ANATOMY ----- The following structures appear normal: Head / Neck Cranium. Head size. Head shape.Lateral ventricles. Midline falx. Cavum septi pellucidi. Cerebellum.Cisterna magna. Thalami. Face Lips. Profile. Nose. Heart / Thorax LVOT view. Diaphragm. Abdomen Stomach. Kidneys. Bladder. Spine Cervical spine. Thoracic spine.Lumbar spine. Sacral spine. The following structures were documented previously: Heart / Thorax 4-chamber view. RVOT view.2-[id number]-vcovfpr view. sex: female. Fetus 2: ANATOMY ----- The following structures appear normal: Head / Neck Cranium. Head size. Head shape.Lateral ventricles. Midline falx. Cavum septi pellucidi. Cerebellum.Cisterna magna. Face Lips. Profile. Nose. Heart / Thorax 4-chamber view. RVOT view. LVOT view.7-ahwofn-[id number] view. Diaphragm. Abdomen Stomach. Kidneys. Bladder. Spine Cervical spine. Thoracic spine.Lumbar spine. Sacral spine. sex: female. Fetus 1: TTTS ASSESSMENT ----- Cardiac activity: present Placental location: Anterior Placental cord insertion: normal bladder: normal hydrops: No MVP: 7.4 cm MCA PSV: 29.53 cm/s MCA MoM: 0.96 UA PI: 1.17, 60% Ductus Venosus: normal Fetus 2: TTTS ASSESSMENT ----- Cardiac activity: present Placental location: Anterior Placental cord insertion: normal bladder: normal hydrops: No MVP: 5.5 cm MCA PSV: 43.87 cm/s MCA MoM: 1.42 UA PI: Intermittent absent diastolic flow Ductus Venosus: normal Fetus 1: DOPPLER ----- Umbilical Artery: normal. Sampling site: midcord PI 1.1760% Ramírez HR 139bpm Mid Cerebral Artery: normal PS 29.53cm/s PS 0.96MoM Fetus 2: DOPPLER ----- Umbilical Artery: abnormal, Intermittent Absent End Diastolic Flow.Sampling site: midcord Mid Cerebral Artery: normal PS 43.87cm/s PS 1.42MoM MATERNAL STRUCTURES ----- Cervix Suboptimal Right Ovary Not examined Left Ovary Not examined RECOMMENDATION ----- See inpatient collaborative care. Anticipate hospitalization for closesurveillance, until delivery which is recommended at 30-32 weeksgestation. IMPRESSION ----- Monochorionic diamniotic twin gestation at 24w 1d gestational age withselective growth restriction of twin 2. Fetus 1 1. None of the anomalies commonly detected by ultrasound were evident inthe detailed anatomic survey described above. 2. Growth parameters and estimated weight were appropriate forgestational age. EFW 53%. 3. The amniotic fluid volume was within normal limits. A normal bladderwas visualized. 4. The umbilical artery Doppler studies were within normal limits. 5. The middle cerebral artery Doppler studies were within normal limits. 6. The ductus venosus studies were within normal limits. Fetus 2 1. None of the anomalies commonly detected by ultrasound were evident inthe detailed anatomic survey described above. 2. Growth parameters and estimated weight were consistent withsevere growth restriction with EFW <1%. The inter-twin discordancewas 33 %. 3. The amniotic fluid volume appeared normal with MVP 6.0 cm. A normalbladder was visualized. 4. The umbilical artery Doppler studies were abnormal with persistentabsent end diastolic flow with intermittent reversed end diastolic flow. 5. The middle cerebral artery Doppler studies were within normal limits. 6. The ductus venosus studies were stable with attenuated 'a' wave but no'a' wave reversal. Placenta appears to still be slightly circumvallate in some areas. Guevara Amin MD [facility] ORDERABLES Edited Res ult - Final * Adult Type and Screen (12/16/2024 11:00 AM SOLAR SITE ASSESSMENT SPECIALIST) ABO/RH(D) O POS 12/16/2024 6:00 AM SOLAR SITE ASSESSMENT SPECIALIST UR BLOOD BANK Antibody Screen Negative Negative 12/16/2024 6:00 AM SOLAR SITE ASSESSMENT SPECIALIST UR BLOOD BANK SPECIMEN EXPIRATION DATE [id number] 12/16/2024 6:00 AM SOLAR SITE ASSESSMENT SPECIALIST UR BLOOD BANK Blood BLOOD SPECIMEN / Unknown Venipuncture / Unknown 12/16/2024 11:00 AM SOLAR SITE ASSESSMENT SPECIALIST 12/16/2024 11:04 AM SOLAR SITE ASSESSMENT SPECIALIST Cameron Leach MD LAB - BLOOD BANK TEST ORDER Yenny ryan Result UR BLOOD BANK [facility] [place] Blood Components Lab [address] [facility], [address] [place] [address] * (ABNORMAL) CBC with platelets (12/16/2024 11:00 AM SOLAR SITE ASSESSMENT SPECIALIST) WBC Count 6.3 4.0 - 11.0 10e3/uL 12/16/2024 11:09 AM SOLAR SITE ASSESSMENT SPECIALIST UR LABORATORY RBC Count 3.92 3.80 - 5.20 10e6/uL 12/16/2024 11:09 AM SOLAR SITE ASSESSMENT SPECIALIST UR LABORATORY Hemoglobin 9.4(L) 11.7 - 15.7 g/dL 12/16/2024 11:09 AM SOLAR SITE ASSESSMENT SPECIALIST UR LABORATORY Hematocrit 30.7(L) 35.0 - 47.0 % 12/16/2024 11:09 AM SOLAR SITE ASSESSMENT SPECIALIST UR LABORATORY MCV 78 78 - 100 fL 12/16/2024 11:09 AM SOLAR SITE ASSESSMENT SPECIALIST UR LABORATORY MCH 24.0(L) 26.5 - 33.0 pg 12/16/2024 11:09 AM SOLAR SITE ASSESSMENT SPECIALIST UR LABORATORY MCHC 30.6(L) 31.5 - 36.5 g/dL 12/16/2024 11:09 AM SOLAR SITE ASSESSMENT SPECIALIST UR LABORATORY RDW 15.1(H) 10.0 - 15.0 % 12/16/2024 11:09 AM SOLAR SITE ASSESSMENT SPECIALIST UR LABORATORY Platelet Count 207 150 - 450 10e3/uL 12/16/2024 11:09 AM SOLAR SITE ASSESSMENT SPECIALIST UR LABORATORY Blood BLOOD SPECIMEN / Unknown Venipuncture / Unknown 12/16/2024 11:00 AM SOLAR SITE ASSESSMENT SPECIALIST 12/16/2024 11:05 AM SOLAR SITE ASSESSMENT SPECIALIST us Cameron Leach MD LAB - BLOOD ORDERABLES Final Res ult UR LABORATORY [facility] Acute Care Lab [address] [facility], [address] [place] [address], [facility] * Maternal US OB Limited Single/Multiple (12/15/2024 8:15 AM SOLAR SITE ASSESSMENT SPECIALIST) Anatomical Region Laterality Modality Ultrasound 12/15/2024 7:38 AM SOLAR SITE ASSESSMENT SPECIALIST Impressions 12/15/2024 10:58 AM SOLAR SITE ASSESSMENT SPECIALIST IMPRESSION ----- Monochorionic diamniotic twin gestation with type 3 selective FGR of fetus 2 at 23w 6d gestational age. Fetus 1 1. A normal [...] umbilical artery Doppler studies were abnormal: Intermittent Reversed End Diastolic Flow. 4. The middle cerebral artery Doppler studies were within normal limits. 5. The ductus venosus studies showed a depressed A-wave. Today's ultrasound does not support a diagnosis of twin twin transfusion syndrome or twin anemia polycythemia syndrome. Narrative 12/15/2024 10:58 AM [facility] Surveillance US ----- Pat. Name: DEANDRE CHÁVEZ Study Date: 12/15/2024 7:38am Pat. NO: [id number] Referring : PAMELA CUELLAR Site: Artifacts Conservator: Chantell Jarquin RDMS : 1995 Age: 29 ----- INDICATION ----- INPATIENT Abnormal UA Doppler and Ductus Venosus waveforms Monochorionic-Diamniotic Twin Gestation Selective Growth Restriction (FGR) fetus 2 Circumvallate placenta METHOD ----- [facility] inpatient exam, Transabdominal ultrasound examination. View: Sufficient. ----- Twin . Number of fetuses: 2. Monochorionic-diamniotic DATING ----- Date Details Gest. age RUDI LMP 07/01/2024 23 w + 6 d 04/07/2025 Previous U/S 08/27/2024 GA, GA 7 w + 6 d 23 w + 4 d 04/09/2025 Assigned dating based on the LMP, selected on 11/22/2024 23 w + 6 d 04/07/2025 Fetus 1: GENERAL EVALUATION ----- Cardiac activity present. FHR 136 bpm. movements: visualized. Presentation: cephalic, maternal left Placenta: Placental site: anterior, no dividing membrane Umbilical cord: previously studied Amniotic fluid: Amount of AF: normal. MVP 5.5 cm Fetus 2: GENERAL EVALUATION ----- Cardiac activity present. FHR 129 bpm. movements: visualized. Presentation: cephalic, maternal right Placenta: Placental site: anterior, thin dividing membrane Umbilical cord: previously studied Amniotic fluid: Amount of AF: normal. MVP 4.0 cm Fetus 1: DOPPLER ----- Umbilical Artery: normal PI 1.12 49% Ramírez HR 146 bpm Mid Cerebral Artery: normal PS 28.94 cm/s PS 0.95 MoM Ductus Venosus: normal Fetus 2: DOPPLER ----- Umbilical Artery: abnormal, Intermittent Reversed End Diastolic Flow Mid Cerebral Artery: normal PS 38.13 cm/s PS 1.25 MoM Ductus Venosus: Depressed A-wave Fetus 1: TTTS ASSESSMENT ----- Cardiac activity: present Placental location: anterior, no dividing membrane Placental cord insertion: ... bladder: normal hydrops: No MVP: 5.5 cm MCA PSV: 28.94 cm/s MCA MoM: 0.95 UA PI: 1.12, 49% Ductus Venosus: normal Fetus 2: TTTS ASSESSMENT ----- Cardiac activity: present Placental location: anterior, thin dividing membrane Placental cord insertion: ... bladder: normal hydrops: No MVP: 4 cm MCA PSV: 38.13 cm/s MCA MoM: 1.25 UA PI: ..., ... Ductus Venosus: Depressed A-wave RECOMMENDATION ----- Patient is currently admitted to the hospital with type 3 selective growth restriction of twin 2. I discussed the findings on today's ultrasound with the patient. Recommend ongoing every other day ultrasound assessment with plan for repeat growth with next ultrasound on 12/17. For complete details of patient's care plan, please see separate documentation in epic. If you have questions regarding today's evaluation or if we can be of further service, please contact the [facility]. anomalies may be present but not detected Procedure Note Karin Esteban MD - 12/15/2024 Surveillance US ----- Pat. Name: DEANDRE CHÁVEZ Study Date: 12/15/2024 7:38am Pat. NO: [id number] Referring MD: PAMELA CUELLAR Site: Artifacts Conservator: Chantellcarmelo Jarquin RDMS : 1995 Age: 29 ----- INDICATION ----- INPATIENT Abnormal UA Doppler and Ductus Venosus waveforms Monochorionic-Diamniotic Twin Gestation Selective Growth Restriction (FGR) fetus 2 Circumvallate placenta METHOD ----- [facility] inpatient exam, Transabdominal ultrasound examination.View: Sufficient. ----- Twin . Number of fetuses: 2. Monochorionic-diamniotic DATING ----- DateDetailsGest. age RUDI LMP w + 6 d 04/07/2025 Previous U/S 08/27/2024 GA, GA7 w + 6 d23 w + 4 d 04/09/2025 Assigned dating based on the LMP, selected on w + 6 d 04/07/2025 Fetus 1: GENERAL EVALUATION ----- Cardiac activity present. FHR 136 bpm. movements: visualized.Presentation: cephalic, maternal left Placenta: Placental site: anterior, no dividing membrane Umbilical cord: previously studied Amniotic fluid: Amount of AF: normal. MVP 5.5 cm Fetus 2: GENERAL EVALUATION ----- Cardiac activity present. FHR 129 bpm. movements: visualized.Presentation: cephalic, maternal right Placenta: Placental site: anterior, thin dividing membrane Umbilical cord: previously studied Amniotic fluid: Amount of AF: normal. MVP 4.0 cm Fetus 1: DOPPLER ----- Umbilical Artery: normal PI 1.1249%Ramírez HR 146bpm Mid Cerebral Artery: normal PS 28.94cm/s PS 0.95MoM Ductus Venosus: normal Fetus 2: DOPPLER ----- Umbilical Artery: abnormal, Intermittent Reversed End Diastolic Flow Mid Cerebral Artery: normal PS 38.13cm/s PS 1.25MoM Ductus Venosus: Depressed A-wave Fetus 1: TTTS ASSESSMENT ----- Cardiac activity: present Placental location: anterior, no dividing membrane Placental cord insertion: ... bladder: normal hydrops: No MVP: 5.5 cm MCA PSV: 28.94 cm/s MCA MoM: 0.95 UA PI: 1.12, 49% Ductus Venosus: normal Fetus 2: TTTS ASSESSMENT ----- Cardiac activity: present Placental location: anterior, thin dividing membrane Placental cord insertion: ... bladder: normal hydrops: No MVP: 4 cm MCA PSV: 38.13 cm/s MCA MoM: 1.25 UA PI: ..., ... Ductus Venosus: Depressed A-wave RECOMMENDATION ----- Patient is currently admitted to the hospital with type 3 selective fetalgrowth restriction of twin 2. I discussed the findings on today'sultrasound with the patient. Recommend ongoing every other day ultrasound assessment with plan forrepeat growth with next ultrasound on 12/17. For complete details ofpatient's care plan, please see separate documentation in epic. If you have questions regarding today's evaluation or if we can be offurther service, please contact the [facility]. anomalies may be present but not detected IMPRESSION ----- Monochorionic diamniotic twin gestation with type 3 selective FGR of fetus2 at 23w 6d gestational age. Fetus 1 1. A normal [...] The umbilical artery Doppler studies were abnormal: IntermittentReversed End Diastolic Flow. 4. The middle cerebral artery Doppler studies were within normal limits. 5. The ductus venosus studies showed a depressed A-wave. Today's ultrasound does not support a diagnosis of twin twin transfusionsyndrome or twin anemia polycythemia syndrome. us Guevara Amin MD [facility] US ORDERABLES Edited Res ult - Final * [facility] Twins US Comprehensive F/U (12/13/2024 8:06 AM SOLAR SITE ASSESSMENT SPECIALIST) Anatomical Region Laterality Modality Ultrasound 12/13/2024 7:10 AM SOLAR SITE ASSESSMENT SPECIALIST Impressions 12/13/2024 9:19 AM SOLAR SITE ASSESSMENT SPECIALIST IMPRESSION ----- Monochorionic diamniotic twin gestation at 23w 4d gestational age. Fetus 1 1. A normal bladder was visualized. 2. The amniotic fluid volume appeared normal. 3. The umbilical artery Doppler studies were. 4. The middle cerebral artery Doppler studies [...] syndrome or twin anemia polycythemia syndrome. Narrative 12/13/2024 9:19 AM [facility] Surveillance US ----- Pat. Name: DEANDRE CHÁVEZ Study Date: 12/13/2024 7:10am Pat. NO: [id number] Referring MD: PAMELA CUELLAR Site: Artifacts Conservator: Claudia Arauz RDMS : 1995 Age: 29 ----- INDICATION ----- INPATIENT Abnormal UA Doppler and Ductus Venosus waveforms Monochorionic-Diamniotic Twin Gestation Selective Growth Restriction (FGR) fetus 2 Circumvallate placenta METHOD ----- [facility] inpatient exam. Transabdominal ultrasound examination. View: Sufficient. ----- Twin . Number of fetuses: 2. Monochorionic-diamniotic DATING ----- Date Details Gest. age RUDI LMP 07/01/2024 23 w + 4 d 04/07/2025 Previous U/S 08/27/2024 GA, GA 7 w + 6 d 23 w + 2 d 04/09/2025 Assigned dating based on the LMP, selected on 11/22/2024 23 w + 4 d 04/07/2025 Fetus 1: GENERAL EVALUATION ----- Cardiac activity present. FHR 140 bpm. movements: visualized. Presentation: cephalic, maternal left Placenta: Anterior Umbilical cord: previously studied Amniotic fluid: Amount of AF: normal. MVP 5.7 cm Fetus 2: GENERAL EVALUATION ----- Cardiac activity present. FHR 155 bpm. movements: visualized. Presentation: cephalic, maternal right, presenting Placenta: Anterior Umbilical cord: previously studied Amniotic fluid: Amount of AF: normal. MVP 5.8 cm Fetus 1: DOPPLER ----- Umbilical Artery: PI 1.20 62% Ramírez HR 146 bpm Mid Cerebral Artery: PS 42.15 cm/s PS 1.40 MoM Fetus 2: DOPPLER ----- Umbilical Artery: abnormal, Intermittent Absent End Diastolic Flow. Sampling site: midcord Mid Cerebral Artery: normal PS 42.15 cm/s PS 1.40 MoM Fetus 1: TTTS ASSESSMENT ----- Cardiac activity: present Placental location: anterior Placental cord insertion: normal bladder: normal hydrops: No MVP: 5.7 cm MCA PSV: 42.15 cm/s MCA MoM: 1.4 UA PI: 1.2, 62% Ductus Venosus: normal Fetus 2: TTTS ASSESSMENT ----- Cardiac activity: present Placental location: anterior Placental cord insertion: normal bladder: normal hydrops: No MVP: 5.8 cm MCA PSV: 42.15 cm/s MCA MoM: 1.4 UA PI: Absent end diastolic flow Ductus Venosus: Depressed A-wave RECOMMENDATION ----- See in patient record for details of today's discussion with the patient and her as well as details for management plan. Continue three times a week assessment of dopplers and limited US to assess for TTTS. Repeat growth ultrasound on 12/17/2024. Thank-you for the opportunity to participate in the care of this patient. If you have questions regarding today's evaluation or if we can be of further service, please contact the [facility]. anomalies may be present but not detected Procedure Note Jesus Harmon MD - 12/13/2024 Surveillance US ----- Pat. Name: DEANDRE CHÁVEZ Study Date: 12/13/2024 7:10am Pat. NO: [id number] Referring MD: PAMELA CUELLAR Site: Artifacts Conservator: Claudia Arauz RDMS : 1995 Age: 29 ----- INDICATION ----- INPATIENT Abnormal UA Doppler and Ductus Venosus waveforms Monochorionic-Diamniotic Twin Gestation Selective Growth Restriction (FGR) fetus 2 Circumvallate placenta METHOD ----- [facility] inpatient exam. Transabdominal ultrasound examination.View: Sufficient. ----- Twin . Number of fetuses: 2. Monochorionic-diamniotic DATING ----- DateDetailsGest. age RUDI LMP w + 4 d 04/07/2025 Previous U/S 08/27/2024 GA, GA7 w + 6 d23 w + 2 d 04/09/2025 Assigned dating based on the LMP, selected on w + 4 d 04/07/2025 Fetus 1: GENERAL EVALUATION ----- Cardiac activity present. FHR 140 bpm. movements: visualized.Presentation: cephalic, maternal left Placenta: Anterior Umbilical cord: previously studied Amniotic fluid: Amount of AF: normal. MVP 5.7 cm Fetus 2: GENERAL EVALUATION ----- Cardiac activity present. FHR 155 bpm. movements: visualized.Presentation: cephalic, maternal right, presenting Placenta: Anterior Umbilical cord: previously studied Amniotic fluid: Amount of AF: normal. MVP 5.8 cm Fetus 1: DOPPLER ----- Umbilical Artery: PI 1.2062%Ramírez HR 146bpm Mid Cerebral Artery: PS 42.15cm/s PS 1.40MoM Fetus 2: DOPPLER ----- Umbilical Artery: abnormal, Intermittent Absent End Diastolic Flow.Sampling site: midcord Mid Cerebral Artery: normal PS 42.15cm/s PS 1.40MoM Fetus 1: TTTS ASSESSMENT ----- Cardiac activity: present Placental location: anterior Placental cord insertion: normal bladder: normal hydrops: No MVP: 5.7 cm MCA PSV: 42.15 cm/s MCA MoM: 1.4 UA PI: 1.2, 62% Ductus Venosus: normal Fetus 2: TTTS ASSESSMENT ----- Cardiac activity: present Placental location: anterior Placental cord insertion: normal bladder: normal hydrops: No MVP: 5.8 cm MCA PSV: 42.15 cm/s MCA MoM: 1.4 UA PI: Absent end diastolic flow Ductus Venosus: Depressed A-wave RECOMMENDATION ----- See in patient record for details of today's discussion with the patientand her as well as details for management plan. Continue three times a week assessment of dopplers and limited US toassess for TTTS. Repeat growth ultrasound on 12/17/2024. Thank-you for the opportunity to participate in the care of this patient.If you have questions regarding today's evaluation or if we can be offurther service, please contact the [facility]. anomalies may be present but not detected IMPRESSION ----- Monochorionic diamniotic twin gestation at 23w 4d gestational age. Fetus 1 1. A normal bladder was visualized. 2. The amniotic fluid volume appeared normal. 3. The umbilical artery Doppler studies were. 4. The middle cerebral artery Doppler studies [...] twin transfusionsyndrome or twin anemia polycythemia syndrome. Guevara Amin MD [facility] ORDERABLES Edited Res ult - Final * Adult Type and Screen (12/13/2024 6:44 AM SOLAR SITE ASSESSMENT SPECIALIST) ABO/RH(D) O POS 12/13/2024 6:00 AM SOLAR SITE ASSESSMENT SPECIALIST UR BLOOD BANK Antibody Screen Negative Negative 12/13/2024 6:00 AM SOLAR SITE ASSESSMENT SPECIALIST UR BLOOD BANK SPECIMEN EXPIRATION DATE [id number] 12/13/2024 6:00 AM SOLAR SITE ASSESSMENT SPECIALIST UR BLOOD BANK Blood STRUCTURE OF RIGHT UPPER LIMB / Unknown Venipuncture / Unknown 12/13/2024 6:44 AM SOLAR SITE ASSESSMENT SPECIALIST 12/13/2024 6:55 AM SOLAR SITE ASSESSMENT SPECIALIST Cameron Leach MD LAB - BLOOD BANK TEST ORDER Yenny l Result UR BLOOD BANK [facility] Blood Components Lab [address] [facility], [address] [place] [id number] * (ABNORMAL) CBC with platelets (12/13/2024 6:44 AM SOLAR SITE ASSESSMENT SPECIALIST) WBC Count 5.8 4.0 - 11.0 10e3/uL 12/13/2024 7:01 AM SOLAR SITE ASSESSMENT SPECIALIST UR LABORATORY RBC Count 3.65(L) 3.80 - 5.20 10e6/uL 12/13/2024 7:01 AM SOLAR SITE ASSESSMENT SPECIALIST UR LABORATORY Hemoglobin 9.1(L) 11.7 - 15.7 g/dL 12/13/2024 7:01 AM SOLAR SITE ASSESSMENT SPECIALIST UR LABORATORY Hematocrit 28.7(L) 35.0 - 47.0 % 12/13/2024 7:01 AM SOLAR SITE ASSESSMENT SPECIALIST UR LABORATORY MCV 79 78 - 100 fL 12/13/2024 7:01 AM SOLAR SITE ASSESSMENT SPECIALIST UR LABORATORY MCH 24.9(L) 26.5 - 33.0 pg 12/13/2024 7:01 AM SOLAR SITE ASSESSMENT SPECIALIST UR LABORATORY MCHC 31.7 31.5 - 36.5 g/dL 12/13/2024 7:01 AM SOLAR SITE ASSESSMENT SPECIALIST UR LABORATORY RDW 15.0 10.0 - 15.0 % 12/13/2024 7:01 AM SOLAR SITE ASSESSMENT SPECIALIST UR LABORATORY Platelet Count 190 150 - 450 10e3/uL 12/13/2024 7:01 AM SOLAR SITE ASSESSMENT SPECIALIST UR LABORATORY Blood STRUCTURE OF RIGHT UPPER LIMB / Unknown Venipuncture / Unknown 12/13/2024 6:44 AM SOLAR SITE ASSESSMENT SPECIALIST 12/13/2024 6:58 AM SOLAR SITE ASSESSMENT SPECIALIST Cameron Leach MD LAB - BLOOD ORDERABLES Final Res ult UR LABORATORY [facility] Acute Care Lab [address] [facility], [address] [place] [address] * MFM Twins US Comprehensive F/U (12/11/2024 8:23 AM SOLAR SITE ASSESSMENT SPECIALIST) Anatomical Region Laterality Modality Ultrasound 12/11/2024 7:19 AM SOLAR SITE ASSESSMENT SPECIALIST Impressions 12/11/2024 9:51 AM SOLAR SITE ASSESSMENT SPECIALIST IMPRESSION ----- Monochorionic diamniotic twin gestation at 23w 2d gestational age. Fetus 1 1. A normal [...] ductus venosus studies were within normal limits. Forward flow of a-wave today. Today's ultrasound does not support a diagnosis of twin twin transfusion syndrome or twin anemia polycythemia syndrome. Narrative 12/11/2024 9:51 AM [facility] Surveillance US ----- Pat. Name: DEANDRE CHÁVEZ Study Date: 12/11/2024 7:19am Pat. NO: [id number] Referring MD: PAMELA CUELLAR Site: Artifacts Conservator: Catrachita Erazo RDMS : 1995 Age: 29 ----- INDICATION ----- Abnormal UA Doppler and Ductus Venosus waveforms Monochorionic-Diamniotic Twin Gestation Selective Growth Restriction (FGR) fetus 2 Circumvallate placenta METHOD ----- [facility] inpatient exam, Transabdominal and transvaginal ultrasound approaches were used. (Transvaginal ultrasound examination was required to adequately complete the exam.). View: Suboptimal view: limited by activity. . ----- Twin . Number of fetuses: 2. Monochorionic-diamniotic DATING ----- Date Details Gest. age RUDI LMP 07/01/2024 23 w + 2 d 04/07/2025 Previous U/S 08/27/2024 GA, GA 7 w + 6 d 23 w + 0 d 04/09/2025 Assigned dating based on the LMP, selected on 11/22/2024 23 w + 2 d 04/07/2025 Fetus 1: GENERAL EVALUATION ----- Cardiac activity present. FHR 133 bpm. movements: visualized. Presentation: cephalic, maternal left Placenta: Anterior Umbilical cord: previously studied Amniotic fluid: normal MVP, MVP 5.5 cm Fetus 2: GENERAL EVALUATION ----- Cardiac activity present. FHR 144 bpm. movements: visualized. Presentation: footling breech, Maternal right, Presenting Placenta: Anterior Umbilical cord: previously studied Amniotic fluid: normal MVP, MVP 6.5 cm Fetus 1: DOPPLER ----- Umbilical Artery: normal. Sampling site: midcord PI 0.94 10% Ramírez HR 138 bpm Mid Cerebral Artery: normal PS 28.01 cm/s PS 0.94 MoM Ductus Venosus: normal Fetus 2: DOPPLER ----- Umbilical Artery: abnormal, Reversed End Diastolic Flow. Sampling site: midcord PI 1.63 99% Ramírez HR 143 bpm Mid Cerebral Artery: normal PS 36.80 cm/s PS 1.24 MoM Ductus Venosus: normal Fetus 1: TTTS ASSESSMENT ----- Cardiac activity: present Placental location: anterior bladder: normal hydrops: No MVP: 5.5 cm MCA PSV: 28.01 cm/s MCA MoM: 0.94 UA PI: 0.94, 10% Ductus Venosus: normal Fetus 2: TTTS ASSESSMENT ----- Cardiac activity: present Placental location: anterior Placental cord insertion: ... bladder: normal hydrops: No MVP: 6.5 cm MCA PSV: 36.8 cm/s MCA MoM: 1.24 UA PI: 1.63, 99% Ductus Venosus: normal RECOMMENDATION ----- See in patient record for details of today's discussion with the patient and her as well as details for management plan. Continue three times a week assessment of dopplers and limited US to assess for TTTS. Repeat growth ultrasound on 12/17/2024. Thank-you for the opportunity to participate in the care of this patient. If you have questions regarding today's evaluation or if we can be of further service, please contact the [facility]. anomalies may be present but not detected Procedure Note Jesus Harmon MD - 12/11/2024 Surveillance US ----- Pat. Name: DEANDRE CHÁVEZ Study Date: 12/11/2024 7:19am Pat. NO: [id number] Referring MD: PAMELA CUELLAR Site: Artifacts Conservator: Catrachita Erazo RDMS : 1995 Age: 29 ----- INDICATION ----- Abnormal UA Doppler and Ductus Venosus waveforms Monochorionic-Diamniotic Twin Gestation Selective Growth Restriction (FGR) fetus 2 Circumvallate placenta METHOD ----- [facility] ANTEPARTUM inpatient exam, Transabdominal and transvaginal ultrasoundapproaches were used. (Transvaginal ultrasound examination was required toadequately complete the exam.). View: Suboptimal view: limited by activity. . ----- Twin . Number of fetuses: 2. Monochorionic-diamniotic DATING ----- DateDetailsGest. age RUDI LMP w + 2 d 04/07/2025 Previous U/S 08/27/2024 GA, GA7 w + 6 d23 w + 0 d 04/09/2025 Assigned dating based on the LMP, selected on w + 2 d 04/07/2025 Fetus 1: GENERAL EVALUATION ----- Cardiac activity present. FHR 133 bpm. movements: visualized.Presentation: cephalic, maternal left Placenta: Anterior Umbilical cord: previously studied Amniotic fluid: normal MVP, MVP 5.5 cm Fetus 2: GENERAL EVALUATION ----- Cardiac activity present. FHR 144 bpm. movements: visualized.Presentation: footling breech, Maternal right, Presenting Placenta: Anterior Umbilical cord: previously studied Amniotic fluid: normal MVP, MVP 6.5 cm Fetus 1: DOPPLER ----- Umbilical Artery: normal. Sampling site: midcord PI 0.9410%Ramírez HR 138bpm Mid Cerebral Artery: normal PS 28.01cm/s PS 0.94MoM Ductus Venosus: normal Fetus 2: DOPPLER ----- Umbilical Artery: abnormal, Reversed End Diastolic Flow. Sampling site:midcord PI 1.6399%Ramírez HR 143bpm Mid Cerebral Artery: normal PS 36.80cm/s PS 1.24MoM Ductus Venosus: normal Fetus 1: TTTS ASSESSMENT ----- Cardiac activity: present Placental location: anterior bladder: normal hydrops: No MVP: 5.5 cm MCA PSV: 28.01 cm/s MCA MoM: 0.94 UA PI: 0.94, 10% Ductus Venosus: normal Fetus 2: TTTS ASSESSMENT ----- Cardiac activity: present Placental location: anterior Placental cord insertion: ... bladder: normal hydrops: No MVP: 6.5 cm MCA PSV: 36.8 cm/s MCA MoM: 1.24 UA PI: 1.63, 99% Ductus Venosus: normal RECOMMENDATION ----- See in patient record for details of today's discussion with the patientand her as well as details for management plan. Continue three times a week assessment of dopplers and limited US toassess for TTTS. Repeat growth ultrasound on 12/17/2024. Thank-you for the opportunity to participate in the care of this patient.If you have questions regarding today's evaluation or if we can be offurther service, please contact the [facility]. anomalies may be present but not detected IMPRESSION ----- Monochorionic diamniotic twin gestation at 23w 2d gestational age. Fetus 1 1. A normal [...] ductus venosus studies were within normal limits. Forward flow ofa-wave today. Today's ultrasound does not support a diagnosis of twin twin transfusionsyndrome or twin anemia polycythemia syndrome. us Jenny De Souza MD [facility] ORDERABLES Edited Re sult - Final * (ABNORMAL) Group B strep PCR (12/10/2024 8:49 PM SOLAR SITE ASSESSMENT SPECIALIST) [facility] Group B Strep PCR Positive( A) Negative 12/11/2024 7:23 PM SOLAR SITE ASSESSMENT SPECIALIST [facility] Comment:ALERT: Streptococcus agalactiae (Group B Streptococcus) has a high rate of resistance to clindamycin. Therefore, clindamycin is not recommended for treatment unless susceptibility testing has been performed. Swab STRUCTURE OF RECTOVAGINAL SEPTUM / Unknown Non-blood Collection / Unknown 12/10/2024 8:49 PM SOLAR SITE ASSESSMENT SPECIALIST 12/10/2024 8:55 PM SOLAR SITE ASSESSMENT SPECIALIST Narrative [facility] - 12/11/2024 7:23 PM SOLAR SITE ASSESSMENT SPECIALIST [employer] Xpert GBS LB Assay, performed on the [employer], is a qualitative in vitro diagnostic test designed to detect Group B Streptococcus (GBS) DNA from enriched vaginal/rectal swab specimens, using fully automated, real-time polymerase chain reaction (PCR) with fluorogenic detection of the amplified DNA. Xpert GBS LB Assay testing is indicated as an aid in determining GBS colonization status in antepartum women. This assay does not diagnose or monitor treatment for GBS infections. The [employer] Xpert GBS LB Assay is intended for use in hospital, reference or state laboratory settings. The device is not intended for [id number] use. Jenny De Souza MD LAB - MICRO GENERAL ORDERABLES Final Result [facility] Inf. Diseases Diag. Lab [address] [facility], [address] [place] [address], [facility] * Ferritin (12/10/2024 5:21 PM SOLAR SITE ASSESSMENT SPECIALIST) Ferritin 15 6 - 175 ng/mL 12/11/2024 4:00 AM SOLAR SITE ASSESSMENT SPECIALIST [facility] Blood STRUCTURE OF RIGHT HAND / Unknown Venipuncture / Unknown 12/10/2024 5:21 PM SOLAR SITE ASSESSMENT SPECIALIST 12/10/2024 5:25 PM SOLAR SITE ASSESSMENT SPECIALIST us Cameron Leach MD LAB - BLOOD ORDERABLES Final Res ult UR LABORATORY [facility] Acute Care Lab [address] [facility], [address] [place] [address], [facility] * (ABNORMAL) Iron and iron binding capacity (12/10/2024 5:21 PM SOLAR SITE ASSESSMENT SPECIALIST) Iron 20(L) 37 - 145 ug/dL 12/11/2024 4:00 AM SOLAR SITE ASSESSMENT SPECIALIST [facility] Iron Binding Capacity 398 240 - 430 ug/dL 12/11/2024 4:00 AM SOLAR SITE ASSESSMENT SPECIALIST [facility] Iron Sat Index 5(L) 15 - 46 % 12/11/2024 4:00 AM SOLAR SITE ASSESSMENT SPECIALIST [facility] Blood STRUCTURE OF RIGHT HAND / Unknown Venipuncture / Unknown 12/10/2024 5:21 PM SOLAR SITE ASSESSMENT SPECIALIST 12/10/2024 5:25 PM SOLAR SITE ASSESSMENT SPECIALIST Cameron Leach MD LAB - BLOOD ORDERABLES Final Res ult UR LABORATORY [facility] Acute Care Lab [address] [facility], [address] * Adult Type and Screen (12/10/2024 5:21 PM SOLAR SITE ASSESSMENT SPECIALIST) [facility] ABO/RH(D) O POS 12/10/2024 4:51 PM SOLAR SITE ASSESSMENT SPECIALIST UR BLOOD BANK Antibody Screen Negative Negative 12/10/2024 4:51 PM SOLAR SITE ASSESSMENT SPECIALIST UR BLO[facility] BANK SPECIMEN EXPIRATION DATE [id number] 12/10/2024 4:51 PM SOLAR SITE ASSESSMENT SPECIALIST UR BLOOD BANK Blood STRUCTURE OF RIGHT HAND / Unknown Venipuncture / Unknown 12/10/2024 5:21 PM SOLAR SITE ASSESSMENT SPECIALIST 12/10/2024 5:25 PM SOLAR SITE ASSESSMENT SPECIALIST us Jenny De Souza MD LAB - BLOOD BANK TEST ORDER Fin al Result UR BLOOD BANK [facility] Blood Components Lab [facility], [address] * (ABNORMAL) CBC with platelets and differential (12/10/2024 5:21 PM SOLAR SITE ASSESSMENT SPECIALIST) [facility] WBC Count 5.7 4.0 - 11.0 10e3/uL 12/10/2024 5:32 PM SOLAR SITE ASSESSMENT SPECIALIST [facility] RBC Count 4.15 3.80 - 5.20 10e6/uL 12/10/2024 5:32 PM SOLAR SITE ASSESSMENT SPECIALIST [facility] Hemoglobin 10.0(L) 11.7 - 15.7 g/dL 12/10/2024 5:32 PM SOLAR SITE ASSESSMENT SPECIALIST [facility] Hematocrit 32.4(L) 35.0 - 47.0 % 12/10/2024 5:32 PM SOLAR SITE ASSESSMENT SPECIALIST [facility] MCV 78 78 - 100 fL 12/10/2024 5:32 PM SOLAR SITE ASSESSMENT SPECIALIST [facility] MCH 24.1(L) 26.5 - 33.0 pg 12/10/2024 5:32 PM SOLAR SITE ASSESSMENT SPECIALIST UR [facility]ORY MCHC 30.9(L) 31.5 - 36.5 g/dL 12/10/2024 5:32 PM SOLAR SITE ASSESSMENT SPECIALIST [facility] RDW 15.0 10.0 - 15.0 % 12/10/2024 5:32 PM SOLAR SITE ASSESSMENT SPECIALIST [facility] Platelet Count 220 150 - 450 10e3/uL 12/10/2024 5:32 PM SOLAR SITE ASSESSMENT SPECIALIST [facility] % Neutrophils 69 % 12/10/2024 5:32 PM SOLAR SITE ASSESSMENT SPECIALIST [facility] % Lymphocytes 24 % 12/10/2024 5:32 PM SOLAR SITE ASSESSMENT SPECIALIST [facility] % Monocytes 6 % 12/10/2024 5:32 PM SOLAR SITE ASSESSMENT SPECIALIST [facility] % Eosinophils 0 % 12/10/2024 5:32 PM SOLAR SITE ASSESSMENT SPECIALIST [facility] % Basophils 0 % 12/10/2024 5:32 PM SOLAR SITE ASSESSMENT SPECIALIST [facility] % Immature Granulocytes 0 % 12/10/2024 5:32 PM SOLAR SITE ASSESSMENT SPECIALIST [facility] NRBCs per 100 WBC 0 <1 /100 025 5:32 PM SOLAR SITE ASSESSMENT SPECIALIST [facility]ORY Absolute Neutrophils 3.9 1.6 - 8.3 10e3/uL 12/10/2024 5:32 PM SOLAR SITE ASSESSMENT SPECIALIST [facility] Absolute Lymphocytes 1.4 0.8 - 5.3 10e3/uL 12/10/2024 5:32 PM SOLAR SITE ASSESSMENT SPECIALIST [facility] Absolute Monocytes 0.3 0.0 - 1.3 10e3/uL 12/10/2024 5:32 PM SOLAR SITE ASSESSMENT SPECIALIST [facility] Absolute Eosinophils 0.0 0.0 - 0.7 10e3/uL 12/10/2024 5:32 PM SOLAR SITE ASSESSMENT SPECIALIST [facility] Absolute Basophils 0.0 0.0 - 0.2 10e3/uL 12/10/2024 5:32 PM SOLAR SITE ASSESSMENT SPECIALIST [facility] Absolute Immature Granulocytes 0.0 <=0.4 10e3/uL 12/10/2024 5:32 PM SOLAR SITE ASSESSMENT SPECIALIST [facility] Absolute NRBCs 0.0 10e3/uL 12/10/2024 5:32 PM SOLAR SITE ASSESSMENT SPECIALIST [facility] Blood STRUCTURE OF RIGHT HAND / Unknown Venipuncture / Unknown 12/10/2024 5:21 PM SOLAR SITE ASSESSMENT SPECIALIST 12/10/2024 5:25 PM SOLAR SITE ASSESSMENT SPECIALIST us Jenny De Souza MD LAB - BLOOD ORDERABLES Final Re sult UR LABORATORY [facility] Acute Care Lab [address] [facility], [address] [place] [address], [facility] * Treponema Abs w Reflex to RPR and Titer (12/10/2024 5:21 PM SOLAR SITE ASSESSMENT SPECIALIST) Treponema Antibody Total Nonreactive Nonreactive 12/10/2024 10:44 PM SOLAR SITE ASSESSMENT SPECIALIST SPECIALTY CORE/PROT/EN DO Blood STRUCTURE OF RIGHT HAND / Unknown Venipuncture / Unknown 12/10/2024 5:21 PM SOLAR SITE ASSESSMENT SPECIALIST 12/10/2024 5:25 PM SOLAR SITE ASSESSMENT SPECIALIST us Jenny De Souza MD LAB - BLOOD ORDERABLES Final Re sult [facility] SPECIALTY CORE/PROT/ENDO [facility] Specialty Core/Prot/Endo [address] [facility] [address], [address] * (ABNORMAL) Comprehensive metabolic panel (12/10/2024 5:21 PM SOLAR SITE ASSESSMENT SPECIALIST) Sodium 136 135 - 145 mmol/L 12/10/2024 5:53 PM SOLAR SITE ASSESSMENT SPECIALIST [facility] Potassium 3.9 3.4 - 5.3 mmol/L 12/10/2024 5:53 PM SOLAR SITE ASSESSMENT SPECIALIST [facility] Carbon Dioxide (CO2) 21(L) 22 - 29 mmol/L 12/10/2024 5:53 PM SOLAR SITE ASSESSMENT SPECIALIST [facility] Anion Gap 11 7 - 15 mmol/L 12/10/2024 5:53 PM SOLAR SITE ASSESSMENT SPECIALIST [facility] Urea Nitrogen 8.4 6.0 - 20.0 mg/dL 12/10/2024 5:53 PM SOLAR SITE ASSESSMENT SPECIALIST [facility] Creatinine 0.51 0.51 - 0.95 mg/dL 12/10/2024 5:53 PM SOLAR SITE ASSESSMENT SPECIALIST [facility] GFR Estimate >90 >60 mL/min/1.7 3m2 12/10/2024 5:53 PM SOLAR SITE ASSESSMENT SPECIALIST [facility] Comment:eGFR calculated us2020 CKD-EPI equation. Calcium 8.9 8.8 - 10.4 mg/dL 12/10/2024 5:53 PM SOLAR SITE ASSESSMENT SPECIALIST [facility] Chloride 104 98 - 107 mmol/L 12/10/2024 5:53 PM SOLAR SITE ASSESSMENT SPECIALIST [facility] Glucose 79 70 - 99 mg/dL 12/10/2024 5:53 PM SOLAR SITE ASSESSMENT SPECIALIST [facility] Alkaline Phosphatase 76 40 - 150 U/L 12/10/2024 5:53 PM SOLAR SITE ASSESSMENT SPECIALIST [facility] AST 21 0 - 45 U/L 12/10/2024 5:53 PM SOLAR SITE ASSESSMENT SPECIALIST [facility] ALT 16 0 - 50 U/L 12/10/2024 5:53 PM SOLAR SITE ASSESSMENT SPECIALIST [facility] Protein Total 6.5 6.4 - 8.3 g/dL 12/10/2024 5:53 PM SOLAR SITE ASSESSMENT SPECIALIST [facility] Albumin 3.5 3.5 - 5.2 g/dL 12/10/2024 5:53 PM SOLAR SITE ASSESSMENT SPECIALIST [facility] Bilirubin Total 0.3 <=1.2 mg/dL 12/10/2024 5:53 PM SOLAR SITE ASSESSMENT SPECIALIST [facility] Blood STRUCTURE OF RIGHT HAND / Unknown Venipuncture / Unknown 12/10/2024 5:21 PM SOLAR SITE ASSESSMENT SPECIALIST 12/10/2024 5:25 PM SOLAR SITE ASSESSMENT SPECIALIST us Jenny De Souza MD LAB - BLOOD ORDERABLES Final Re sult UR LABORATORY [facility] Acute Care Lab [address] [facility], [address] [place] [address] documented in this encounter Visit Diagnoses Diagnosis Poor growth affecting management of mother in second trimester, fetus 2 of multiple gestation- Primary Monochorionic diamniotic twin , antepartum Twin , antepartum Gastroesophageal reflux disease without esophagitis Esophageal reflux S/P section Other postprocedural status Uncomplicated asthma Unspecified asthma Monochorionic diamniotic twin , antepartum Twin , antepartum Discordant growth in twin gestation, fetus 2 of multiple gestation Abnormal umbilical cord Fetus or affected by other and unspecified conditions of umbilical cord 23 weeks gestation of state, incidental Gastroesophageal reflux disease without esophagitis Esophageal reflux documented in this encounter Admitting Diagnoses Diagnosis Monochorionic diamniotic twin , antepartum Twin , antepartum documented in this encounter Administered Medications Inactive Administered Medications - up to 3 most recent administrations Medication Order MAR Action Action Date Dose Rate Site acetaminophen (TYLENOL) tablet 650 mg 650 mg, Oral, EVERY 4 HOURS PRN, mild pain, fever, headaches, temp greater than or equal to 38 C /100.4 F (oral) or 38.5 C/ 101.4 F (core), Starting on 12/10/24 at 1649, Maximum acetaminophen dose from all sources = 75 mg/kg/day not to exceed 4 grams/day., Antepartum $Given 12/14/2024 8:39 PM SOLAR SITE ASSESSMENT SPECIALIST 325 mg acetaminophen (TYLENOL) tablet 975 mg 975 mg, Oral, EVERY 6 HOURS, First dose on Yarelis 12/20/24 at 1400, Start 6 hours after pre-op dose (if given) Maximum acetaminophen dose from all sources = 75 mg/kg/day not to exceed 4 grams/day. $Given 12/22/2024 8:02 PM SOLAR SITE ASSESSMENT SPECIALIST 975 mg $Given 12/22/2024 1:57 PM SOLAR SITE ASSESSMENT SPECIALIST 975 mg $Given 12/22/2024 4:22 AM SOLAR SITE ASSESSMENT SPECIALIST 975 mg betamethasone acet & sod phos (CELESTONE) injection 12 mg 12 mg, Intramuscular, EVERY 24 HOURS, First dose (after last modification) on 12/10/24 at 1800, For 2 doses, For lung maturity, Antepartum $Given 12/11/2024 6:05 PM SOLAR SITE ASSESSMENT SPECIALIST 12 mg Left Gluteus Thiago $Given 12/10/2024 6:29 PM SOLAR SITE ASSESSMENT SPECIALIST 12 mg BioGaia Probiotic capsule [PATIENT SUPPLY] 1 capsule, Oral, 2 TIMES DAILY, First dose (after last reorder) on Tue12/12/24 at 0800, Patient-supplied home medication. Verified by two Pharmacists (initials ALLI and PLACIDO). Store in medication room on patient unit. Send medication home with patient on discharge. $Given 12/13/2024 12:27 PM SOLAR SITE ASSESSMENT SPECIALIST 1 capsule $Given 12/12/2024 8:16 AM SOLAR SITE ASSESSMENT SPECIALIST 1 capsule BioGaia Probiotic MISC 1 capsule 1 capsule, Oral, DAILY, First dose (after last modification) on Tue12/14/24 at 0800, Patient-supplied home medication. Verified by two Pharmacists (armandos ALLI and PLACIDO). Store in medication room on patient unit. Send medication home with patient on discharge. $Given 12/19/2024 2:32 PM SOLAR SITE ASSESSMENT SPECIALIST 1 capsule $Given 12/16/2024 3:18 PM SOLAR SITE ASSESSMENT SPECIALIST 1 capsule $Given 12/15/2024 2:19 PM SOLAR SITE ASSESSMENT SPECIALIST 1 capsule BUPivacaine liposome (EXPAREL) LA inj was given in the infiltration site to produce post-op analgesia. Duration of action is up to 72 hours. Other janice meds should not be given for 96 hours except for lidocaine 4% patch. This is for INFORMATION ONLY. CONTINUOUS PRN, Starting on Yarelis 12/20/24 at 1144, Until 12/23/24 at 2100, NURSE to notify physician if patient has ringing in the ears, metallic taste in the mouth, or circumoral numbness. DO NOT administer any additional local anesthetics POST-OPERATIVELY without contacting Anesthesia first. calcium carbonate (TUMS) chewable tablet 1,000 mg 1,000 mg, Oral, EVERY 6 HOURS PRN, heartburn, Starting on 12/10/24 at 1649, If heartburn continues after 2 doses, notify provider. Do NOT administer within 12 hours of scheduled surgical procedure., Antepartum $Given 12/17/2024 3:28 PM SOLAR SITE ASSESSMENT SPECIALIST 1,000 mg $Given 12/16/2024 7:01 PM SOLAR SITE ASSESSMENT SPECIALIST 1,000 mg $Given 12/13/2024 10:30 PM SOLAR SITE ASSESSMENT SPECIALIST 1,000 mg calcium carbonate (TUMS) chewable tablet 1,000 mg 1,000 mg, Oral, 4 TIMES DAILY PRN, heartburn, Starting on 12/22/24 at 1519 $Given 12/23/2024 10:57 AM SOLAR SITE ASSESSMENT SPECIALIST 1,000 mg $Given 12/23/2024 3:31 AM SOLAR SITE ASSESSMENT SPECIALIST 1,000 mg calcium carbonate (TUMS) chewable tablet 500 mg 500 mg, Oral, 2 TIMES DAILY, First dose on 12/10/24 at 2000 $Given 12/11/2024 11:30 AM SOLAR SITE ASSESSMENT SPECIALIST 500 mg calcium carbonate (TUMS) chewable tablet 500 mg 500 mg, Oral, 3 TIMES DAILY PRN, heartburn, Starting on 12/22/24 at 1356 $Given 12/22/2024 3:21 PM SOLAR SITE ASSESSMENT SPECIALIST 500 mg $Given 12/22/2024 2:14 PM SOLAR SITE ASSESSMENT SPECIALIST 500 mg carboprost (HEMABATE) injection 250 mcg 250 mcg, Intramuscular, EVERY 15 MIN PRN, other, ONLY for uterine atony with significant bleeding POST-DELIVERY, Starting on Yarelis 12/20/24 at 1338, Notify provider IF uterine atony and clarify with provider medication preference. Administer only if directed by provider. Give with caution in patients with asthma, active pulmonary, hepatic, renal or cardiovascular disease. cyclobenzaprine (FLEXERIL) tablet 10 mg 10 mg, Oral, 3 TIMES DAILY PRN, muscle spasms, other, adjuvant pain, Starting on 12/21/[address] Waqar Cast MVI capsules [PATIENT SUPPLY] 2 capsule, Oral, DAILY, First dose (after last reorder) on Tue12/12/24 at 0800, Patient-supplied home medication. Verified by two Pharmacists (initials ALLI and PLACIDO). Store in medication room on patient unit. Send medication home with patient on discharge., Antepartum $Given 12/19/2024 2:32 PM SOLAR SITE ASSESSMENT SPECIALIST 2 capsules $Given 12/16/2024 3:18 PM SOLAR SITE ASSESSMENT SPECIALIST 2 capsules $Given 12/15/2024 2:19 PM SOLAR SITE ASSESSMENT SPECIALIST 2 capsules famotidine (PEPCID) tablet 10 mg 10 mg, Oral, DAILY PRN, other, heart burn, Starting on 12/16/24 at 1130 fentaNYL (PF) (SUBLIMAZE) injection 50 mcg 50 mcg, Intravenous, EVERY 5 MIN PRN, severe pain, Give fentaNYL (SUBLIMAZE) first if HYDROmorphone (DILAUDID) also ordered., Starting on Yarelis 12/20/24 at 1156, Administer fentaNYL (SUBLIMAZE) for acute pain control. Move to HYDROmorphone (DILAUDID): - IF patient has received up to 200 mcg of fentaNYL (SUBLIMAZE), OR - IF patient has received 2 doses of fentaNYL (SUBLIMAZE) AND continues to have severe pain (pain score greater than or equal to seven (7) or is unable to participate in post op recovery due to pain. Wait 5 minutes AFTER last fentaNYL (SUBLIMAZE) dose before administering HYDROmorphone (DILADUDID). Postop Anesthesia Phase I only. Notify Provider to assess for uncontrolled pain or analgesic side effects. DO NOT revert back to fentanyl (SUBLIMAZE) after administering HYDROmorphone (DILAUDID)., PACU $Given 12/20/2024 12:08 PM SOLAR SITE ASSESSMENT SPECIALIST 50 mcg hydrOXYzine HCl (ATARAX) tablet 25 mg 25 mg, Oral, EVERY 6 HOURS PRN, anxiety, Starting on 12/22/24 at 1214, Start with 25 mg for the initial dose. If the 25 mg dose is ineffective, increase to the 50 mg dose at the next administration time and maintain further doses at 50 mg. If the 50 mg dose is ineffective, contact the provider. ibuprofen (ADVIL/MOTRIN) tablet 800 mg 800 mg, Oral, EVERY 6 HOURS, First dose on Yarelis 12/20/24 at 2300, Give with food. $Given 12/23/2024 11:42 AM SOLAR SITE ASSESSMENT SPECIALIST 800 mg $Given 12/22/2024 11:19 PM SOLAR SITE ASSESSMENT SPECIALIST 800 mg $Given 12/22/2024 3:22 PM SOLAR SITE ASSESSMENT SPECIALIST 800 mg iron sucrose (VENOFER) 300 mg in sodium chloride 0.9 % 290 mL intermittent infusion 300 mg, Intravenous, Administer over 90 Minutes, at 193.3 mL/hr, EVERY 72 HOURS, First dose on Yarelis 12/13/24 at 1800, For 3 doses $Started 12/13/2024 7:51 PM SOLAR SITE ASSESSMENT SPECIALIST 300 mg 193.3 mL/hr $New Bag 12/13/2024 7:50 PM SOLAR SITE ASSESSMENT SPECIALIST 300 mg 193.3 mL/hr ketorolac (TORADOL) injection 15 mg 15 mg, Intravenous, EVERY 6 HOURS, First dose on Yarelis 12/20/24 at 1700, For 3 doses, Give first dose in PACU IF NOT given in OR. Can cause pain on injection. If ordered intravenously (IV) : administer through a running maintenance fluid over 1 minute followed by a flush. If patient complains of pain on injection, may dilute 15-30 mg in 5 mL and push over 1 to 2 minutes. $Given 12/20/2024 5:16 PM SOLAR SITE ASSESSMENT SPECIALIST 15 mg lactated ringers BOLUS 500 mL Intravenous, 500 mL, ONCE, On 12/10/24 at 2130, For 1 dose $New Bag 12/10/2024 9:20 PM SOLAR SITE ASSESSMENT SPECIALIST 500 mLs lactated ringers BOLUS 500 mL Intravenous, 500 mL, ONCE, On Tu12/11/24 at 1400, For 1 dose $New Bag 12/11/2024 2:06 PM SOLAR SITE ASSESSMENT SPECIALIST 500 mLs lactated ringers BOLUS 500 mL Intravenous, 500 mL, ONCE, On Tue12/16/24 at 1100, For 1 dose $New Bag 12/16/2024 10:57 AM SOLAR SITE ASSESSMENT SPECIALIST 500 mLs lactated ringers infusion Alexandrea Rockwell: cabinet override, 1 dose, Starting on Tue12/16/24 at 1043, Until 12/16/24 at 1057 loperamide (IMODIUM) capsule 4 mg 4 mg, Oral, ONCE PRN, other, Give with first dose of carboprost (HEMABATE), Starting on Yarelis 12/20/24 at 1338, For 1 dose, May give only after delivery. magnesium sulfate 2 g in 50 mL sterile water intermittent infusion 2 g, Intravenous, Administer over 10 Minutes, at 300 mL/hr, ONCE, On Yarelis 12/20/24 at 1000, For 1 dose, To give a Total Loading Dose of Magnesium Sulfate 6 gm over 30 minutes: Hang 2nd dose Magnesium Sulfate 2 gm in 50 ml over 10 minutes. Stay with patient during loading dose., Antepartum $New Bag 12/20/2024 9:57 AM SOLAR SITE ASSESSMENT SPECIALIST 2 g 300 mL/hr magnesium sulfate 4 g in 100 mL sterile water intermittent infusion 4 g, Intravenous, Administer over 20 Minutes, at 300 mL/hr, ONCE, On Yarelis 12/20/24 at 0930, For 1 dose, To give a Total Loading Dose of Magnesium Sulfate 6 gm over 30 minutes: Start Magnesium Sulfate 4 gm IVPB to run over 20 minutes. Stay with patient during loading dose., Antepartum $New Bag 12/20/2024 9:33 AM SOLAR SITE ASSESSMENT SPECIALIST 4 g 100 m L/hr magnesium sulfate infusion 2 g/hr (50 mL/hr), Intravenous, CONTINUOUS, Starting on Yarelis 12/20/24 at 1000, Indication: neuroprotection. ~Contact provider 12 hours after start of infusion to discuss continuation of magnesium infusion. ~Discontinue if delivery occurs., Antepartum $New Bag 12/20/2024 10:08 AM SOLAR SITE ASSESSMENT SPECIALIST 2 g/hr 50 mL/hr metoclopramide (REGLAN) injection 10 mg 10 mg, Intravenous, Administer over 2 Minutes, EVERY 6 HOURS PRN, nausea/vomiting - 1st line, Starting on Yarelis 12/20/24 at 1338, This is Step 1 of OB nausea and vomiting management. Use IV if not tolerating oral therapy. If nausea is not resolved in 30 minutes, go to Step 2 (Zofran). Avoid use if patient has full bowel obstruction or perforation. metoclopramide (REGLAN) tablet 10 mg 10 mg, Oral, EVERY 6 HOURS PRN, nausea/vomiting - 1st line, Starting on Yarelis 12/20/24 at 1338, This is Step 1 of OB nausea and vomiting management. Preferred route. If nausea is not resolved in 30 minutes, go to Step 2 (Zofran) Avoid use if patient has full bowel obstruction or perforation. misoprostol (CYTOTEC) tablet 400 mcg 400 mcg, Oral, GIVE ONCE PRN AND REPEAT ACCORDING TO INSTRUCTIONS, post- hemorrhage, Starting on Yarelis 12/20/24 at 1338, Administer only if directed by provider. Max administrations: 4 doses misoprostol (CYTOTEC) tablet 800 mcg 800 mcg, Rectal, GIVE ONCE PRN AND REPEAT ACCORDING TO INSTRUCTIONS, post- hemorrhage, Starting on Yarelis 12/20/24 at 1338, Give rectally if unable to take oral without complications. Administer only if directed by provider. Max administrations: 4 doses. naloxone (NARCAN) injection 0.2 mg 0.2 mg, Intravenous, EVERY 2 MIN PRN, opioid reversal, Starting on Yarelis 12/20/24 at 1348, Administer intravenous route when available and notify provider when administered. For unintended sedation or respiratory depression if all of the below criteria are met: ~ respiratory rate LESS than or EQUAL to 8. ~SaO2 less than 92% and or/end-tidal CO2 is greater than 50. ~ the patient is receiving an opioid, has unintended sedations assessed as RASS (-3), and is currently not on mechanical ventilation. RASS scale moderate (-3) is movement or eye opening to voice but no eye contact. Patient Monitoring Once the patient has demonstrated a response to the naloxone, continue to monitor respiratory rate, depth, oxygen saturation and end-tidal CO2 (if available) every 15 minutes x 2, then every 30 minutes x 2, then every 1 hour x 1 after each naloxone dose. Consider transfer to ICU if patient respiratory parameters have not improved after 4 naloxone doses. naloxone (NARCAN) injection 0.2 mg 0.2 mg, Intramuscular, EVERY 2 MIN PRN, opioid reversal, Starting on Yarelis 12/20/24 at 1348, Administer intramuscular if an intravenous route is not available and notify provider when administered. For unintended sedation or respiratory depression if all of the below criteria are met: ~ respiratory rate LESS than or EQUAL to 8. ~SaO2 less than 92% and or/end-tidal CO2 is greater than 50. ~ the patient is receiving an opioid, has unintended sedations assessed as RASS (-3), and is currently not on mechanical ventilation. RASS scale moderate (-3) is movement or eye opening to voice but no eye contact. Patient Monitoring Once the patient has demonstrated a response to the naloxone, continue to monitor respiratory rate, depth, oxygen saturation and end-tidal CO2 (if available) every 15 minutes x 2, then every 30 minutes x 2, then every 1 hour x 1 after each naloxone dose. Consider transfer to ICU if patient respiratory parameters have not improved after 4 naloxone doses. naloxone (NARCAN) injection 0.4 mg 0.4 mg, Intravenous, EVERY 2 MIN PRN, opioid reversal, Starting on Yarelis 12/20/24 at 1348, Administer intravenous route when available and notify provider when administered. For unintended sedation or respiratory depression if all of the below criteria are met: ~ respiratory rate LESS than or EQUAL to 8. ~ SaO2 less than 92% and or/end-tidal CO2 is greater than 50. ~ the patient is receiving an opioid, has unintended sedation assessed as RASS (-4) or (-5) and patient is currently not on mechanical ventilation. RASS scale (-4) is deep sedation with no response to voice but movement or eye opening to physical stimulation. RASS scale (-5) is unarousable. Patient Monitoring Once the patient has demonstrated a response to the naloxone, continue to monitor respiratory rate, depth, oxygen saturation and end-tidal CO2 (if available) every 15 minutes x 2, then every 30 minutes x 2, then every 1 hour x 1 after each naloxone dose. Consider transfer to ICU if patient respiratory parameters have not improved after 4 naloxone doses. naloxone (NARCAN) injection 0.4 mg 0.4 mg, Intramuscular, EVERY 2 MIN PRN, opioid reversal, Starting on Yarelis 12/20/24 at 1348, Administer intramuscular if an intravenous route is not available and notify provider when administered. For unintended sedation or respiratory depression if all of the below criteria are met: ~ respiratory rate LESS than or EQUAL to 8. ~ SaO2 less than 92% and or/end-tidal CO2 is greater than 50. ~ the patient is receiving an opioid, has unintended sedation assessed as RASS (-4) or (-5) and patient is currently not on mechanical ventilation. RASS scale (-4) is deep sedation with no response to voice but movement or eye opening to physical stimulation. RASS scale (-5) is unarousable. Patient Monitoring Once the patient has demonstrated a response to the naloxone, continue to monitor respiratory rate, depth, oxygen saturation and end-tidal CO2 (if available) every 15 minutes x 2, then every 30 minutes x 2, then every 1 hour x 1 after each naloxone dose. Consider transfer to ICU if patient respiratory parameters have not improved after 4 naloxone doses. omeprazole (PriLOSEC) CR capsule 20 mg 20 mg, Oral, DAILY, First dose on Tue12/11/24 at 0930 $Given 12/23/2024 10:57 AM SOL[employer]ITE ASSESSMENT SPECIALIST 20 mg $Given 12/22/2024 9:04 AM SOL[employer] SITE ASSESSMENT SPECIALIST 20 mg $Given 12/21/2024 8:11 AM SOL[employer] SITE ASSESSMENT SPECIALIST 20 mg ondansetron (ZOFRAN ODT) ODT tab 4 mg 4 mg, Oral, EVERY 6 HOURS PRN, nausea/vomiting - 2nd line, Starting on Yarelis 12/20/24 at 1338, This is Step 2 of OB nausea and vomiting management. Preferred route. Give If nausea not resolved in 30 minutes after giving metoclopramide (REGLAN). If nausea is not resolved in 15 minutes, go to Step 3 (Compazine). With dry hands, peel back foil backing and gently remove tablet. Do not push oral disintegrating tablet through foil backing. Administer immediately on tongue and oral disintegrating tablet dissolves in seconds, then swallow with saliva. Liquid not required. ondansetron (ZOFRAN) injection 4 mg 4 mg, Intravenous, EVERY 6 HOURS PRN, nausea/vomiting - 2nd line, Administer over 2-5 Minutes, Starting on Yarelis 12/20/24 at 1338, This is Step 2 of OB nausea and vomiting management. Use IV if not tolerating oral therapy. Give if nausea not resolved 30 minutes after giving metoclopramide (REGLAN). If nausea is not resolved in 15 minutes, go to Step 3 (Compazine). ondansetron (ZOFRAN) injection 4 mg 4 mg, Intravenous, EVERY 30 MIN PRN, nausea, Administer over 2-5 Minutes, Starting on Yarelis 12/20/24 at 1156, For 2 doses, This is Step 1 of nausea and vomiting management. If nausea/vomiting not resolved in 15 minutes, then go to Step 2 dexamethasone (DECADRON) IV. MAX total dose = 8 mg, including OR dosing., PACU $Given 12/20/2024 12:24 PM SOL[employer] ASSESSMENT SPECIALIST 4 mg prochlorperazine (COMPAZINE) injection 10 mg 10 mg, Intravenous, EVERY 6 HOURS PRN, nausea/vomiting - 3rd line, Administer over 2 Minutes, Starting on Yarelis 12/20/24 at 1338, This is Step 3 of OB nausea and vomiting management. Use IV if not tolerating oral therapy. Give if nausea not resolved 15 minutes after giving ondansetron (ZOFRAN). If nausea is not resolved in 30 minutes, notify provider. prochlorperazine (COMPAZINE) injection 5 mg 5 mg, Intravenous, EVERY 6 HOURS PRN, nausea, vomiting, Administer over 1-2 Minutes, Starting on Yarelis 12/20/24 at 1156, This is Step 3 of the nausea and vomiting protocol. If nausea/vomitting not resolved in 15-30 minutes, notify Provider., PACU $Given 12/20/2024 12:40 PM [employer] ASSESSMENT SPECIALIST 5 mg prochlorperazine (COMPAZINE) tablet 10 mg 10 mg, Oral, EVERY 6 HOURS PRN, nausea/vomiting - 3rd line, Starting on Yarelis 12/20/24 at 1338, This is Step 3 of OB nausea and vomiting management. Preferred route. Give if nausea not resolved 15 minutes after giving ondansetron (ZOFRAN). If nausea is not resolved in 30 minutes, notify provider. senna-docusate (SENOKOT-S/PERICOLACE) 8.6-50 MG per tablet 1 tablet 1 tablet, Oral, 2 TIMES DAILY, First dose on Yarelis 12/20/24 at 2000, If no bowel movement in 24 hours, increase to 2 tablets PO. Hold for loose stools. Preferred agent for constipation related to opioids. Hold for loose stools. $Given 12/21/2024 9:14 PM [employer]ITE ASSESSMENT SPECIALIST 1 tablet $Given 12/21/2024 8:11 AM SOLAR SITE ASSESSMENT SPECIALIST 1 tablet senna-docusate (SENOKOT-S/PERICOLACE) 8.6-50 MG per tablet 2 tablet 2 tablet, Oral, 2 TIMES DAILY, First dose on Yarelis 12/20/24 at 2000, Hold for loose stools. Preferred agent for constipation related to opioids. Hold for loose stools. $Given 12/20/2024 8:11 PM SOL[employer] SITE ASSESSMENT SPECIALIST 2 tablets simethicone (MYLICON) chewable tablet 80 mg 80 mg, Oral, 4 TIMES DAILY PRN, other, gas, Starting on Yarelis 12/20/24 at 1338, Chew. $Given 12/22/2024 8:05 PM SOL[employer]ITE ASSESSMENT SPECIALIST 80 mg $Given 12/22/2024 12:24 AM SOL[employer] SITE ASSESSMENT SPECIALIST 80 mg $Given 12/21/2024 6:18 PM SOL[employer] SITE ASSESSMENT SPECIALIST 80 mg sodium chloride (OCEAN) 0.65 % nasal spray 1 spray 1 spray, Both Nostrils, EVERY 1 HOUR PRN, congestion, Starting on Tue12/18/24 at 2111 sodium chloride (PF) 0.9% PF flush 3 mL 3 mL, Intracatheter, EVERY 8 HOURS, First dose on Tue12/12/24 at 1700 $Given 12/21/2024 5:11 AM SOL[employer] SITE ASSESSMENT SPECIALIST 3 mLs $Given 12/20/2024 10:49 PM SOL[employer] SITE ASSESSMENT SPECIALIST 3 mLs $Given 12/20/2024 8:31 AM SOLAR SITE ASSESSMENT SPECIALIST 3 mLs sodium chloride (PF) 0.9% PF flush 3 mL 3 mL, Intracatheter, EVERY 8 HOURS, First dose on Tue12/20/24 at 1400, to lock peripheral IV dormant line $Given 12/22/2024 12:26 AM SOL[employer] SITE ASSESSMENT SPECIALIST 3 mLs sucralfate (CARAFATE) suspension 1 g 1 g, Oral, 3 TIMES DAILY PRN, other, patient request, Starting on Tue12/11/24 at 0925, Shake well. Recommended to take before meals. documented in this encounter Active and Recently Administered Medications Times are shown in [employer]. Scheduled Medication Order 12/21/2024 12/22/2024 12/23/2024 acetaminophen (TYLENOL) tablet 975 mg 975 mg, Oral, EVERY 6 HOURS, First dose on Tue12/20/24 at 1400, Start 6 hours after pre-op dose (if given) Maximum acetaminophen dose from all sources = 75 mg/kg/day not to exceed 4 grams/day. 0219 ($Given - Provider: Denita Farrar RN)0810 ($Given - Provider: Nena Ren RN)1553 ($Given - Provider: Nicole Pinon RN)2047 (Canceled Entry - Provider: Nicole Pinon RN)2207 ($Given - Provider: Radhika Alarcon RN) 0422 ($Given - Provider: Radhika Alarcon RN)1357 ($Given - Provider: Nena Ren RN)2001 ($Given - Provider: Nicole Pinon RN)2301 (Canceled Entry - Provider: Nicole Pinon RN) 0331 (Not Given - Provider: Madiha Carmona RN - Reason: Patient/family refused)0830 (Not Given - Provider: Nena Ren RN - Reason: Patient/family refused - Comment: offered and declined)1400 (Not Given - Provider: Nena Ren RN - Reason: Patient sleeping)1999 (Canceled Entry - Provider: Orders Generic Provider - Comment: Automatically canceled at discontinue of medication order) BioGaia Probiotic MISC 1 capsule 1 capsule, Oral, DAILY, First dose (after last modification) on Tue12/14/24 at 0800, Patient-supplied home medication. Verified by two Pharmacists (initials ALLI and PLACIDO). Store in medication room on patient unit. Send medication home with patient on discharge. 1338 (Not Given - Provider: Nena Ren RN - Reason: Patient/family refused - Comment: per pt, will not take today. Already had several Bms and will just use current laxative regimen by hospital) 1359 (Not Given - Provider: Nena Ren RN - Reason: Patient/family refused) 1205 (Not Given - Provider: Nena Ren RN - Reason: Other - Comment: Will resume at home but states im pooping ok) enoxaparin ANTICOAGULANT (LOVENOX) injection 40 mg 40 mg, Subcutaneous, EVERY 24 HOURS, First dose on Tue12/21/24 at 0800, Wait GREATER than or EQUAL to 12 hours after the neuraxial procedure AND GREATER than or EQUAL to four hours after the epidural catheter removal before initiating or restarting LMWH thromboprophylaxis (enoxaparin). Surgery start time: 1100 0811 (Not Given - Provider: Nena Ren RN - Reason: Patient/family refused - Comment: Despite talking with Dr. Newby pt still undecided and at the moment despite offering x2. Informed pt to let me know if she wants medication) 0905 (Not Given - Provider: Nena Ren RN - Reason: Patient/family refused) 1039 (Not Given - Provider: Nena Ren RN - Reason: Patient/family refused) ibuprofen (ADVIL/MOTRIN) tablet 800 mg 800 mg, Oral, EVERY 6 HOURS, First dose on Tue12/20/24 at 2300, Give with food. 0456 ($Given - Provider: Denita Farrar RN)1115 ($Given - Provider: Nena Ren RN)1818 ($Given - Provider: Nicole Pinon, MAGUI) 0024 ($Given - Provider: Radhika Alarcon, MAGUI)0904 ($Given - Provider: Nena Ren RN)1522 ($Given - Provider: Nena Ren RN)2319 ($Given - Provider: Madiha Carmona RN) 0004 (Not Given - Provider: Madiha Carmona RN - Reason: Order parameters not met - Comment: too soon to give)0830 (Not Given - Provider: Nena Ren RN - Reason: Patient/family refused - Comment: offered and declined)1142 ($Given - Provider: Nena Ren RN)1800 (Canceled Entry - Provider: Orders Generic Provider - Comment: Automatically canceled at discontinue of medication order) omeprazole (PriLOSEC) CR capsule 20 mg 20 mg, Oral, DAILY, First dose on Tue12/11/24 at 0930 0811 ($Given - Provider: Nena Ren RN) 0904 ($Given - Provider: Nena Ren RN) 1057 ($Given - Provider: Nena Ren RN - Comment: part of barcode missing) senna-docusate (SENOKOT-S/PERICOLACE) 8.6-50 MG per tablet 1 tablet(Linked Group 1) 1 tablet, Oral, 2 TIMES DAILY, First dose on Tue12/20/24 at 2000, If no bowel movement in 24 hours, increase to 2 tablets PO. Hold for loose stools. Preferred agent for constipation related to opioids. Hold for loose stools. 0811 ($Given - Provider: Nena Ren RN)2114 ($Given - Provider: Radhika Alarcon, MAGUI) 1014 (Not Given - Provider: Nena Ren RN - Reason: Patient/family refused - Comment: had very soft BM)2020 (Not Given - Provider: Nicole Pinon RN - Reason: Patient/family refused) 1040 (Not Given - Provider: Nena Ren RN - Reason: Patient/family refused - Comment: offered and declined)2000 (Canceled Entry - Provider: Orders Generic Provider - Comment: Automatically canceled at discontinue of medication order) senna-docusate (SENOKOT-S/PERICOLACE) 8.6-50 MG per tablet 2 tablet(Linked Group 1) 2 tablet, Oral, 2 TIMES DAILY, First dose on Tue12/20/24 at 2000, Hold for loose stools. Preferred agent for constipation related to opioids. Hold for loose stools. 0811 (See Alternative - Provider: Nena Ren RN)2114 (See Alternative - Provider: Radhika Alarcon RN) 1014 (See Alternative - Provider: Nena Ren RN)2020 (See Alternative - Provider: Nicole Pinon RN) 1040 (See Alternative - Provider: Nena Ren RN)2000 (Canceled Entry - Provider: Orders Generic Provider - Comment: Automatically canceled at discontinue of medication order) sodium chloride (PF) 0.9% PF flush 3 mL 3 mL, Intracatheter, EVERY 8 HOURS, First dose on Tue12/12/24 at 1700 0511 ($Given - Provider: Denita Farrar RN)1400 (Not Given - Provider: Nena Ren RN - Reason: Patient sleeping) 0042 (Not Given - Provider: Radhika Alarcon RN - Reason: Other - Comment: only 1 PIV, flushed)0641 (Not Given - Provider: Radhika Alarcon RN - Reason: Other - Comment: duplicate order)1500 (Not Given - Provider: Nena Ren RN - Reason: Patient sleeping)2326 (Not Given - Provider: Madiah Carmona RN - Reason: No IV Access) 0730 (Not Given - Provider: Nena Ren RN - Reason: Patient sleeping)1505 (Not Given - Provider: Nena Ren RN - Reason: Loss of IV access) sodium chloride (PF) 0.9% PF flush 3 mL 3 mL, Intracatheter, EVERY 8 HOURS, First dose on Tue12/20/24 at 1400, to lock peripheral IV dormant line 0509 (Not Given - Provider: Denita Farrar RN - Reason: Other)1400 (Not Given - Provider: Nena Ren RN - Reason: Patient sleeping) 0026 ($Given - Provider: Radhika Alarcon MAGUI)1015 (Not Given - Provider: Nena Ren RN - Reason: No IV Access)1500 (Not Given - Provider: Nena Ren RN - Reason: Patient sleeping)2326 (Not Given - Provider: Madiha Carmona RN - Reason: No IV Access) 0730 (Not Given - Provider: Nena Ren RN - Reason: Patient sleeping)1505 (Not Given - Provider: Nena Ren RN - Reason: Loss of IV access) Continuous Medication Order 12/21/2024 12/22/2024 12/23/2024 dextrose 5% in lactated ringers infusion at 125 mL/hr, Intravenous, CONTINUOUS, Subsequent IV at nurse's discretion. DC IV when tolerating fluids or at nurse's discretion & saline lock., Starting on Yarelis 12/20/24 at 1400, Until 12/23/24 at 2100 PRN Medication Order 12/21/2024 12/22/2024 12/23/2024 bisacodyl (DULCOLAX) suppository 10 mg 10 mg, Rectal, DAILY PRN, constipation, Starting on 12/22/24 at 0000, Use IF milk of magnesium not effective. Start POD 2 Hold for loose stools. BUPivacaine liposome (EXPAREL) LA inj was given in the infiltration site to produce post-op analgesia. Duration of action is up to 72 hours. Other janice meds should not be given for 96 hours except for lidocaine 4% patch. This is for INFORMATION ONLY. CONTINUOUS PRN, Starting on Yarelis 12/20/24 at 1144, Until 12/23/24 at 2100, NURSE to notify physician if patient has ringing in the ears, metallic taste in the mouth, or circumoral numbness. DO NOT administer any additional local anesthetics POST-OPERATIVELY without contacting Anesthesia first. calcium carbonate (TUMS) chewable tablet 1,000 mg 1,000 mg, Oral, 4 TIMES DAILY PRN, heartburn, Starting on 12/22/24 at 1519 0331 ($Given - Provider: Madiha Carmona RN)1057 ($Given - Provider: Nena Ren RN) calcium carbonate (TUMS) chewable tablet 500 mg (CANCELED) 500 mg, Oral, 3 TIMES DAILY PRN, heartburn, Starting on 12/22/24 at 1356 1414 ($Given - Provider: Nena Ren, RN)1521 ($Given - Provider: Nena Ren RN) carboprost (HEMABATE) injection 250 mcg(Linked Group 2) 250 mcg, Intramuscular, EVERY 15 MIN PRN, other, ONLY for uterine atony with significant bleeding POST-DELIVERY, Starting on Yarelis 12/20/24 at 1338, Notify provider IF uterine atony and clarify with provider medication preference. Administer only if directed by provider. Give with caution in patients with asthma, active pulmonary, hepatic, renal or cardiovascular disease. cyclobenzaprine (FLEXERIL) tablet 10 mg 10 mg, Oral, 3 TIMES DAILY PRN, muscle spasms, other, adjuvant pain, Starting on 12/21/24 at 0712 famotidine (PEPCID) tablet 10 mg 10 mg, Oral, DAILY PRN, other, heart burn, Starting on 12/16/24 at 1130 1426 (Not Given - Provider: Lisa Quintero RN - Reason: Other - Comment: pt decided she didn't want it) hydrocortisone (Perianal) (ANUSOL-HC) 2.5 % cream Rectal, 3 TIMES DAILY PRN, hemorrhoids, Starting on Yarelis 12/20/24 at 1338, Apply to hemorrhoids. Send only if nurse requests. hydrOXYzine HCl (ATARAX) tablet 25 mg 25 mg, Oral, EVERY 6 HOURS PRN, anxiety, Starting on 12/22/24 at 1214, Start with 25 mg for the initial dose. If the 25 mg dose is ineffective, increase to the 50 mg dose at the next administration time and maintain further doses at 50 mg. If the 50 mg dose is ineffective, contact the provider. lidocaine (LMX4) cream Topical, EVERY 1 HOUR PRN, pain, with VAD insertion, Starting on Yarelis 12/20/24 at 1338, Apply at least 30 minutes prior to VAD insertion in divided doses as needed for size of site for insertion. MAX Dose: 2.5 g ( of 5 g tube) Do NOT give if patient has a history of allergy to any local anesthetic or any janice product. Do NOT use both lidocaine intradermal/subcutaneous injection and the lidocaine cream on the same site. lidocaine 1 % 0.1-1 mL 0.1-1 mL, Other, EVERY 1 HOUR PRN, mild pain with VAD insertion, Starting on Yarelis 12/20/24 at 1338, MAX dose 1 mL subcutaneous OR intradermal along the side of the vein in divided doses as needed for VAD insertion. Do NOT give if patient has a history of allergy to any local anesthetic or any janice product. Do NOT use both lidocaine intradermal/subcutaneous injection and the lidocaine cream on the same site. loperamide (IMODIUM) capsule 2 mg 2 mg, Oral, EVERY 2 HOURS PRN, other, after each loose stool, Starting on Yarelis 12/20/24 at 1338, May give only after delivery. For diarrhea occurring after carboprost (HEMABATE) administration ONLY. Maximum 16 mg/day. Do NOT give stool softeners or laxatives until diarrhea is resolved. loperamide (IMODIUM) capsule 4 mg(Linked Group 2) 4 mg, Oral, ONCE PRN, other, Give with first dose of carboprost (HEMABATE), Starting on Yarelis 12/20/24 at 1338, For 1 dose, May give only after delivery. magnesium hydroxide (MILK OF MAGNESIA) suspension 30 mL 30 mL, Oral, DAILY PRN, constipation, Starting on Yarelis 12/20/24 at 1338, Shake well. Hold for loose stools. methylergonovine (METHERGINE) injection 200 mcg 200 mcg, Intramuscular, EVERY 2 HOURS PRN, ONLY for uterine atony with significant bleeding POST-DELIVERY, Starting on Yarelis 12/20/24 at 1338, Notify provider IF uterine atony and clarify with provider medication preference. Administer only if directed by provider. Contraindicated if Blood Pressure greater than 140/90, preeclampsia, or hypertension. metoclopramide (REGLAN) injection 10 mg(Linked Group 3) 10 mg, Intravenous, Administer over 2 Minutes, EVERY 6 HOURS PRN, nausea/vomiting - 1st line, Starting on Yarelis 12/20/24 at 1338, This is Step 1 of OB nausea and vomiting management. Use IV if not tolerating oral therapy. If nausea is not resolved in 30 minutes, go to Step 2 (Zofran). Avoid use if patient has full bowel obstruction or perforation. metoclopramide (REGLAN) tablet 10 mg(Linked Group 3) 10 mg, Oral, EVERY 6 HOURS PRN, nausea/vomiting - 1st line, Starting on Yarelis 12/20/24 at 1338, This is Step 1 of OB nausea and vomiting management. Preferred route. If nausea is not resolved in 30 minutes, go to Step 2 (Zofran) Avoid use if patient has full bowel obstruction or perforation. misoprostol (CYTOTEC) tablet 400 mcg(Linked Group 4) 400 mcg, Oral, GIVE ONCE PRN AND REPEAT ACCORDING TO INSTRUCTIONS, post- hemorrhage, Starting on Yarelis 12/20/24 at 1338, Administer only if directed by provider. Max administrations: 4 doses misoprostol (CYTOTEC) tablet 800 mcg(Linked Group 4) 800 mcg, Rectal, GIVE ONCE PRN AND REPEAT ACCORDING TO INSTRUCTIONS, post- hemorrhage, Starting on Yarelis 12/20/24 at 1338, Give rectally if unable to take oral without complications. Administer only if directed by provider. Max administrations: 4 doses. naloxone (NARCAN) injection 0.2 mg(Linked Group 5) 0.2 mg, Intravenous, EVERY 2 MIN PRN, opioid reversal, Starting on Yarelis 12/20/24 at 1348, Administer intravenous route when available and notify provider when administered. For unintended sedation or respiratory depression if all of the below criteria are met: ~ respiratory rate LESS than or EQUAL to 8. ~SaO2 less than 92% and or/end-tidal CO2 is greater than 50. ~ the patient is receiving an opioid, has unintended sedations assessed as RASS (-3), and is currently not on mechanical ventilation. RASS scale moderate (-3) is movement or eye opening to voice but no eye contact. Patient Monitoring Once the patient has demonstrated a response to the naloxone, continue to monitor respiratory rate, depth, oxygen saturation and end-tidal CO2 (if available) every 15 minutes x 2, then every 30 minutes x 2, then every 1 hour x 1 after each naloxone dose. Consider transfer to ICU if patient respiratory parameters have not improved after 4 naloxone doses. naloxone (NARCAN) injection 0.2 mg(Linked Group 5) 0.2 mg, Intramuscular, EVERY 2 MIN PRN, opioid reversal, Starting on Yarelis 12/20/24 at 1348, Administer intramuscular if an intravenous route is not available and notify provider when administered. For unintended sedation or respiratory depression if all of the below criteria are met: ~ respiratory rate LESS than or EQUAL to 8. ~SaO2 less than 92% and or/end-tidal CO2 is greater than 50. ~ the patient is receiving an opioid, has unintended sedations assessed as RASS (-3), and is currently not on mechanical ventilation. RASS scale moderate (-3) is movement or eye opening to voice but no eye contact. Patient Monitoring Once the patient has demonstrated a response to the naloxone, continue to monitor respiratory rate, depth, oxygen saturation and end-tidal CO2 (if available) every 15 minutes x 2, then every 30 minutes x 2, then every 1 hour x 1 after each naloxone dose. Consider transfer to ICU if patient respiratory parameters have not improved after 4 naloxone doses. naloxone (NARCAN) injection 0.4 mg(Linked Group 5) 0.4 mg, Intravenous, EVERY 2 MIN PRN, opioid reversal, Starting on Yarelis 12/20/24 at 1348, Administer intravenous route when available and notify provider when administered. For unintended sedation or respiratory depression if all of the below criteria are met: ~ respiratory rate LESS than or EQUAL to 8. ~ SaO2 less than 92% and or/end-tidal CO2 is greater than 50. ~ the patient is receiving an opioid, has unintended sedation assessed as RASS (-4) or (-5) and patient is currently not on mechanical ventilation. RASS scale (-4) is deep sedation with no response to voice but movement or eye opening to physical stimulation. RASS scale (-5) is unarousable. Patient Monitoring Once the patient has demonstrated a response to the naloxone, continue to monitor respiratory rate, depth, oxygen saturation and end-tidal CO2 (if available) every 15 minutes x 2, then every 30 minutes x 2, then every 1 hour x 1 after each naloxone dose. Consider transfer to ICU if patient respiratory parameters have not improved after 4 naloxone doses. naloxone (NARCAN) injection 0.4 mg(Linked Group 5) 0.4 mg, Intramuscular, EVERY 2 MIN PRN, opioid reversal, Starting on Yarelis 12/20/24 at 1348, Administer intramuscular if an intravenous route is not available and notify provider when administered. For unintended sedation or respiratory depression if all of the below criteria are met: ~ respiratory rate LESS than or EQUAL to 8. ~ SaO2 less than 92% and or/end-tidal CO2 is greater than 50. ~ the patient is receiving an opioid, has unintended sedation assessed as RASS (-4) or (-5) and patient is currently not on mechanical ventilation. RASS scale (-4) is deep sedation with no response to voice but movement or eye opening to physical stimulation. RASS scale (-5) is unarousable. Patient Monitoring Once the patient has demonstrated a response to the naloxone, continue to monitor respiratory rate, depth, oxygen saturation and end-tidal CO2 (if available) every 15 minutes x 2, then every 30 minutes x 2, then every 1 hour x 1 after each naloxone dose. Consider transfer to ICU if patient respiratory parameters have not improved after 4 naloxone doses. ondansetron (ZOFRAN ODT) ODT tab 4 mg(Linked Group 6) 4 mg, Oral, EVERY 6 HOURS PRN, nausea/vomiting - 2nd line, Starting on Yarelis 12/20/24 at 1338, This is Step 2 of OB nausea and vomiting management. Preferred route. Give If nausea not resolved in 30 minutes after giving metoclopramide (REGLAN). If nausea is not resolved in 15 minutes, go to Step 3 (Compazine). With dry hands, peel back foil backing and gently remove tablet. Do not push oral disintegrating tablet through foil backing. Administer immediately on tongue and oral disintegrating tablet dissolves in seconds, then swallow with saliva. Liquid not required. ondansetron (ZOFRAN) injection 4 mg(Linked Group 6) 4 mg, Intravenous, EVERY 6 HOURS PRN, nausea/vomiting - 2nd line, Administer over 2-5 Minutes, Starting on Yarelis 12/20/24 at 1338, This is Step 2 of OB nausea and vomiting management. Use IV if not tolerating oral therapy. Give if nausea not resolved 30 minutes after giving metoclopramide (REGLAN). If nausea is not resolved in 15 minutes, go to Step 3 (Compazine). oxyCODONE (ROXICODONE) tablet 5 mg 5 mg, Oral, EVERY 4 HOURS PRN, other, moderate to severe breakthrough pain. Hold dose for analgesic side effects., Starting on Yarelis 12/20/24 at 1338, Notify provider to assess for uncontrolled pain or analgesic side effects. Hold while on EGG SETTER or with regular IV opioid dosing. Maximum total is 60 mg in 24 hours. oxytocin (PITOCIN) 30 units in 500 mL 0.9% NaCl infusion 340 mL/hr, Intravenous, CONTINUOUS PRN, for hemorrhage (PPH) UNTIL bleeding subsided., Starting on Yarelis 12/20/24 at 1338, When bleeding subsides decrease rate to 100 mL/hr. Notify provider immediately when infusion begun. Oxytocin is first line medication for PPH. oxytocin (PITOCIN) injection 10 Units 10 Units, Intramuscular, ONCE PRN, for hemorrhage (PPH), IF no IV access is available., Starting on Yarelis 12/20/24 at 1338, For 1 dose, Notify provider immediately when injection given. Oxytocin is first line medication for PPH. prochlorperazine (COMPAZINE) injection 10 mg(Linked Group 7) 10 mg, Intravenous, EVERY 6 HOURS PRN, nausea/vomiting - 3rd line, Administer over 2 Minutes, Starting on Yarelis 12/20/24 at 1338, This is Step 3 of OB nausea and vomiting management. Use IV if not tolerating oral therapy. Give if nausea not resolved 15 minutes after giving ondansetron (ZOFRAN). If nausea is not resolved in 30 minutes, notify provider. prochlorperazine (COMPAZINE) tablet 10 mg(Linked Group 7) 10 mg, Oral, EVERY 6 HOURS PRN, nausea/vomiting - 3rd line, Starting on Yarelis 12/20/24 at 1338, This is Step 3 of OB nausea and vomiting management. Preferred route. Give if nausea not resolved 15 minutes after giving ondansetron (ZOFRAN). If nausea is not resolved in 30 minutes, notify provider. simethicone (MYLICON) chewable tablet 80 mg 80 mg, Oral, 4 TIMES DAILY PRN, other, gas, Starting on Yarelis 12/20/24 at 1338, Chew. 0810 ($Given - Provider: Nena Ren RN)1818 ($Given - Provider: Nicole Pinon RN) 0024 ($Given - Provider: Radhika Alarcon RN)1015 (Not Given - Provider: Nena Ren RN - Reason: Patient/family refused)2004 ($Given - Provider: Nicole Pinon RN) sodium chloride (OCEAN) 0.65 % nasal spray 1 spray 1 spray, Both Nostrils, EVERY 1 HOUR PRN, congestion, Starting on Tue12/18/24 at 2111 sodium chloride (PF) 0.9% PF flush 3 mL 3 mL, Intracatheter, EVERY 1 MIN PRN, line flush, other, to ensure patency or to lock dormant line, Starting on Yarelis 12/20/24 at 1338 sodium phosphate (FLEET ENEMA) 1 enema 1 enema, Rectal, DAILY PRN, constipation, , Starting on 12/22/24 at 0000, Use IF bisacodyl not effective. Start POD 2. Hold for loose stools unless being administered as part of a bowel prep regimen prior to a procedure. sucralfate (CARAFATE) suspension 1 g 1 g, Oral, 3 TIMES DAILY PRN, other, patient request, Starting on 12/11/24 at 0925, Shake well. Recommended to take before meals. tranexamic acid 1 g in 100 mL NS IV bag (premix) 1 g, Intravenous, Administer over 10 Minutes, EVERY 30 MIN PRN, Post- hemorrhage (PPH), Starting on Yarelis 12/20/24 at 1338, For 2 doses, Provider consultation REQUIRED and MUST be administered as soon as the ONSET of bleeding AND within 3 hours of regardless of cause of the PPH (atony OR laceration). IF bleeding continues, a 2nd dose may be administered after 30 minutes. IF concern for DIC (Disseminated Intravascular Coagulation), obtain coagulation studies PRIOR to administration. Contraindications include: history of PE (Pulmonary Emboli), DVT (Deep Vein Thrombosis) and current Subarachnoid hemorrhage and active DIC. Administer only if directed by provider. Each 1 gram to be infused over 10 minutes. Linked Groups Order Group 1: senna-docusate (SENOKOT-S/PERICOLACE) 8.6-50 MG per tablet 1 tabletJump to med 1 tablet, Oral, 2 TIMES DAILY, First dose on Yarelis 12/20/24 at 2000, If no bowel movement in 24 hours, increase to 2 tablets PO. Hold for loose stools. Preferred agent for constipation related to opioids. Hold for loose stools. Or senna-docusate (SENOKOT-S/PERICOLACE) 8.6-50 MG per tablet 2 tabletJump to med 2 tablet, Oral, 2 TIMES DAILY, First dose on Yarelis 12/20/24 at 2000, Hold for loose stools. Preferred agent for constipation related to opioids. Hold for loose stools. Group 2: carboprost (HEMABATE) injection 250 mcgJump to med 250 mcg, Intramuscular, EVERY 15 MIN PRN, other, ONLY for uterine atony with significant bleeding POST-DELIVERY, Starting on Yarelis 12/20/24 at 1338, Notify provider IF uterine atony and clarify with provider medication preference. Administer only if directed by provider. Give with caution in patients with asthma, active pulmonary, hepatic, renal or cardiovascular disease. And loperamide (IMODIUM) capsule 4 mgJump to med 4 mg, Oral, ONCE PRN, other, Give with first dose of carboprost (HEMABATE), Starting on Yarelis 12/20/24 at 1338, For 1 dose, May give only after delivery. Group 3: metoclopramide (REGLAN) tablet 10 mgJump to med 10 mg, Oral, EVERY 6 HOURS PRN, nausea/vomiting - 1st line, Starting on Yarelis 12/20/24 at 1338, This is Step 1 of OB nausea and vomiting management. Preferred route. If nausea is not resolved in 30 minutes, go to Step 2 (Zofran) Avoid use if patient has full bowel obstruction or perforation. Or metoclopramide (REGLAN) injection 10 mgJump to med 10 mg, Intravenous, Administer over 2 Minutes, EVERY 6 HOURS PRN, nausea/vomiting - 1st line, Starting on Yarelis 12/20/24 at 1338, This is Step 1 of OB nausea and vomiting management. Use IV if not tolerating oral therapy. If nausea is not resolved in 30 minutes, go to Step 2 (Zofran). Avoid use if patient has full bowel obstruction or perforation. Group 4: misoprostol (CYTOTEC) tablet 400 mcgJump to med 400 mcg, Oral, GIVE ONCE PRN AND REPEAT ACCORDING TO INSTRUCTIONS, post- hemorrhage, Starting on Yarelis 12/20/24 at 1338, Administer only if directed by provider. Max administrations: 4 doses Or misoprostol (CYTOTEC) tablet 800 mcgJump to med 800 mcg, Rectal, GIVE ONCE PRN AND REPEAT ACCORDING TO INSTRUCTIONS, post- hemorrhage, Starting on Yarelis 12/20/24 at 1338, Give rectally if unable to take oral without complications. Administer only if directed by provider. Max administrations: 4 doses. Group 5: naloxone (NARCAN) injection 0.2 mgJump to med 0.2 mg, Intravenous, EVERY 2 MIN PRN, opioid reversal, Starting on Yarelis 12/20/24 at 1348, Administer intravenous route when available and notify provider when administered. For unintended sedation or respiratory depression if all of the below criteria are met: ~ respiratory rate LESS than or EQUAL to 8. ~SaO2 less than 92% and or/end-tidal CO2 is greater than 50. ~ the patient is receiving an opioid, has unintended sedations assessed as RASS (-3), and is currently not on mechanical ventilation. RASS scale moderate (-3) is movement or eye opening to voice but no eye contact. Patient Monitoring Once the patient has demonstrated a response to the naloxone, continue to monitor respiratory rate, depth, oxygen saturation and end-tidal CO2 (if available) every 15 minutes x 2, then every 30 minutes x 2, then every 1 hour x 1 after each naloxone dose. Consider transfer to ICU if patient respiratory parameters have not improved after 4 naloxone doses. Or naloxone (NARCAN) injection 0.4 mgJump to med 0.4 mg, Intravenous, EVERY 2 MIN PRN, opioid reversal, Starting on Yarelis 12/20/24 at 1348, Administer intravenous route when available and notify provider when administered. For unintended sedation or respiratory depression if all of the below criteria are met: ~ respiratory rate LESS than or EQUAL to 8. ~ SaO2 less than 92% and or/end-tidal CO2 is greater than 50. ~ the patient is receiving an opioid, has unintended sedation assessed as RASS (-4) or (-5) and patient is currently not on mechanical ventilation. RASS scale (-4) is deep sedation with no response to voice but movement or eye opening to physical stimulation. RASS scale (-5) is unarousable. Patient Monitoring Once the patient has demonstrated a response to the naloxone, continue to monitor respiratory rate, depth, oxygen saturation and end-tidal CO2 (if available) every 15 minutes x 2, then every 30 minutes x 2, then every 1 hour x 1 after each naloxone dose. Consider transfer to ICU if patient respiratory parameters have not improved after 4 naloxone doses. Or naloxone (NARCAN) injection 0.2 mgJump to med 0.2 mg, Intramuscular, EVERY 2 MIN PRN, opioid reversal, Starting on Yarelis 12/20/24 at 1348, Administer intramuscular if an intravenous route is not available and notify provider when administered. For unintended sedation or respiratory depression if all of the below criteria are met: ~ respiratory rate LESS than or EQUAL to 8. ~SaO2 less than 92% and or/end-tidal CO2 is greater than 50. ~ the patient is receiving an opioid, has unintended sedations assessed as RASS (-3), and is currently not on mechanical ventilation. RASS scale moderate (-3) is movement or eye opening to voice but no eye contact. Patient Monitoring Once the patient has demonstrated a response to the naloxone, continue to monitor respiratory rate, depth, oxygen saturation and end-tidal CO2 (if available) every 15 minutes x 2, then every 30 minutes x 2, then every 1 hour x 1 after each naloxone dose. Consider transfer to ICU if patient respiratory parameters have not improved after 4 naloxone doses. Or naloxone (NARCAN) injection 0.4 mgJump to med 0.4 mg, Intramuscular, EVERY 2 MIN PRN, opioid reversal, Starting on Yarelis 12/20/24 at 1348, Administer intramuscular if an intravenous route is not available and notify provider when administered. For unintended sedation or respiratory depression if all of the below criteria are met: ~ respiratory rate LESS than or EQUAL to 8. ~ SaO2 less than 92% and or/end-tidal CO2 is greater than 50. ~ the patient is receiving an opioid, has unintended sedation assessed as RASS (-4) or (-5) and patient is currently not on mechanical ventilation. RASS scale (-4) is deep sedation with no response to voice but movement or eye opening to physical stimulation. RASS scale (-5) is unarousable. Patient Monitoring Once the patient has demonstrated a response to the naloxone, continue to monitor respiratory rate, depth, oxygen saturation and end-tidal CO2 (if available) every 15 minutes x 2, then every 30 minutes x 2, then every 1 hour x 1 after each naloxone dose. Consider transfer to ICU if patient respiratory parameters have not improved after 4 naloxone doses. Group 6: ondansetron (ZOFRAN ODT) ODT tab 4 mgJump to med 4 mg, Oral, EVERY 6 HOURS PRN, nausea/vomiting - 2nd line, Starting on Yarelis 12/20/24 at 1338, This is Step 2 of OB nausea and vomiting management. Preferred route. Give If nausea not resolved in 30 minutes after giving metoclopramide (REGLAN). If nausea is not resolved in 15 minutes, go to Step 3 (Compazine). With dry hands, peel back foil backing and gently remove tablet. Do not push oral disintegrating tablet through foil backing. Administer immediately on tongue and oral disintegrating tablet dissolves in seconds, then swallow with saliva. Liquid not required. Or ondansetron (ZOFRAN) injection 4 mgJump to med 4 mg, Intravenous, EVERY 6 HOURS PRN, nausea/vomiting - 2nd line, Administer over 2-5 Minutes, Starting on Yarelis 12/20/24 at 1338, This is Step 2 of OB nausea and vomiting management. Use IV if not tolerating oral therapy. Give if nausea not resolved 30 minutes after giving metoclopramide (REGLAN). If nausea is not resolved in 15 minutes, go to Step 3 (Compazine). Group 7: prochlorperazine (COMPAZINE) tablet 10 mgJump to med 10 mg, Oral, EVERY 6 HOURS PRN, nausea/vomiting - 3rd line, Starting on Yarelis 12/20/24 at 1338, This is Step 3 of OB nausea and vomiting management. Preferred route. Give if nausea not resolved 15 minutes after giving ondansetron (ZOFRAN). If nausea is not resolved in 30 minutes, notify provider. Or prochlorperazine (COMPAZINE) injection 10 mgJump to med 10 mg, Intravenous, EVERY 6 HOURS PRN, nausea/vomiting - 3rd line, Administer over 2 Minutes, Starting on Yarelis 12/20/24 at 1338, This is Step 3 of OB nausea and vomiting management. Use IV if not tolerating oral therapy. Give if nausea not resolved 15 minutes after giving ondansetron (ZOFRAN). If nausea is not resolved in 30 minutes, notify provider. documented in this encounter Additional Health Concerns Assessment Noted Time PHQ-9 Depression Total Score: 7 12/10/19 2:56 PM [employer] documented as of this encounter Care Teams Product Management Intern Relationship Specialty Start Date End Date No Ref-Primary, Physician PCP - General 12/04/21 Flower Amato MD [id number] [id number] Assigned OBGYN Provider 11/22/24 documented as of this encounter
--- OUTSIDE RECORDS SUMMARY | 2024-12-23 23:22 | XMS_ITS | Clinical Summary ---
Author Organization [facility] Address [address] [place] [address] Care Team Providers Care Costume Director Name Role Phone No Ref-Primary, Physician Primary Care Provider Flower Amato MD Unavailable [phone] Allergies No known active allergies Medications omeprazole (PRILOSEC) [address] capsule Take 20 mg by mouth daily. Active Vit-Fe Fumarate-FA ( VITAMINS PO) Take 1 tablet by mouth daily. Active IRON-VITAMINS PO Take by mouth. Active calcium carbonate (TUMS) 500 MG chewable tablet Take 1 chew tab by mouth 2 times daily. Active Famotidine-Ca Carb-Mag Hydrox (PEPCID COMPLETE PO) Take 1 tablet by mouth daily. Active acetaminophen (TYLENOL) 325 MG tabletIndication s:S/P section Take 3 tablets (975 mg) by mouth every 6 hours. 60 tablet 5 Active ibuprofen (ADVIL/MOTRIN) 800 MG tabletIndication s:S/P section Take 1 tablet (800 mg) by mouth every 6 hours. 60 tablet 5 Active senna-docusate (SENOKOT-S/PERIC OLACE) 8.6-50 MG tabletIndication s:S/P section Take 1 tablet by mouth 2 times daily. 60 tablet 5 Active alum & mag hydroxide-simeth icone (MAALOX MAX) 400-400-40 MG/5ML SUSP suspensionIndica tions:Gastroesop hageal reflux disease without esophagitis Take 30 mLs by mouth every 4 hours as needed for indigestion. 100 mL 5 Active ferrous sulfate (FEROSUL) 325 (65 Fe) MG tabletIndication s:S/P section Take 1 tablet (325 mg) by mouth daily (with breakfast). 60 tablet 5 Active ibuprofen (ADVIL/MOTRIN) 200 MG tabletIndication s:Acute appendicitis with localized peritonitis, unspecified whether abscess present, unspecified whether gangrene present, unspecified whether perforation present Take 3 tablets (600 mg) by mouth every 6 hours as needed for moderate pain 100 tablet 2 12/05/19 25 Discontinu ed(Med Rec(No AVS / No eCancel)) acetaminophen (TYLENOL) 500 MG tabletIndication s:Acute appendicitis with localized peritonitis, unspecified whether abscess present, unspecified whether gangrene present, unspecified whether perforation present Take 2 tablets (1,000 mg) by mouth every 6 hours as needed for pain 2 12/23/19 25 Discontinu ed(Stop at Discharge) oxyCODONE (ROXICODONE) 5 MG tabletIndication s:Acute appendicitis with localized peritonitis, unspecified whether abscess present, unspecified whether gangrene present, unspecified whether perforation present Take 1-2 tablets (5-10 mg) by mouth every 4 hours as needed for moderate to severe pain 12 tablet 2 12/05/19 25 Discontinu ed(Med Rec(No AVS / No eCancel)) sertraline (ZOLOFT) 25 MG tablet Take 12.5 mg by mouth daily 12/05/19 25 Discontinu ed(Med Rec(No AVS / No eCancel)) amoxicillin (AMOXIL) 875 MG tabletIndication s:Strep throat Take 1 tablet (875 mg) by mouth 2 times daily 20 tablet 3 12/05/19 25 Discontinu ed(Med Rec(No AVS / No eCancel)) Active Problems Patient Care Coordination No te Formatting of this note is d ifferent from the original. [facility] Care Plan: For details of imaging, genetic testing and consultations, please see the maternal medical record: Deandre Leyva MR#:[id number] Partner's name: Los Baby's name: Delivery hospital: [facility] DIAGNOSIS: DIAGNOSIS / DIAGNOSES: 1) mono/di [...] 4) Relocation - 5) care with - [facility] to [facility] 12/10 6) Labs - Blood type: [...] - D) DELIVERY PLAN: 1) Hospital - [facility] 2) Gestational age - 3) Route [...] - REFERRING PROVIDER(S): 1) Primary OB Provider: [facility] 2) Other Sub-Specialty Provider: 3) Anticipated Pediatric Provider: DEMOGRAPHICS: Patient contact info: [phone] [address] [facility] [phone] (home) Problem Noted Date Diagnosed Date Discordant growth in t win gestation, fetus 2 of multiple gestation 12/11/2024 Poor growth affecting management of mother in second trimester, fetus 2 of multiple gestation 12/11/2024 Abnormal umbilical cord 12/11/2024 23 weeks gestation of 12/11/2024 Gastroesophageal reflux disease without esophagi tis 12/11/2024 Monochorionic diamniotic twin , antepar stew 12/04/2024 Uncomplicated asthma Encounters Date Type Department Care Team Description 12/23/2024 Orders Only [facility] [place] [address] [facility] [address] [place] [address] Aure Guevara MD Esophageal spasm (Primary Dx) 12/20/2024 11:30 AM CAR MECHANIC Ancillary Procedure [facility] [address] [place] [address] nEeida Sanon MD 12/20/2024 10:50 AM CAR MECHANIC - 12/20/2024 12:50 PM CAR MECHANIC Surgery [facility] [address] [place] [address] Pennie Frank MD section 12/20/2024 10:45 AM CAR MECHANIC Anesthesia Event [facility] [address] [place] [address] Eneida Sanon MD Trost, Sierra, MD 12/20/2024 9:35 AM CAR MECHANIC Ancillary Procedure [facility] [address] [place] [address] 12/10/2024 3:17 PM CAR MECHANIC - 12/23/2024 4:30 PM CAR MECHANIC Hospital Encounter [facility] [address] [place] [address] Jesus Harmon MD Burn, Martina, MD Jones, Cresta Wedel, MD Monochorionic diamniotic twin , antepartum (Primary Dx); Gastroesophageal reflux disease without esophagitis; S/P section Discharge Disposition: Home or Self Care 12/10/2024 2:15 PM CAR MECHANIC Office Visit [facility] [place] [address] [place] [address] Eloy, Kenia Holmes, CNM Monochorionic diamniotic twin , antepartum 12/10/2024 2:00 PM CAR MECHANIC Office Visit [facility] [address] [place] [address] Jaren Rodriguez MD Poor growth affecting management of mother in second trimester, fetus 2 (Primary Dx); Monochorionic diamniotic twin , antepartum 12/10/2024 1:10 PM CAR MECHANIC - 12/10/2024 3:16 PM CAR MECHANIC Hospital Encounter [facility] [address] [place] [address] Jaren Rodriguez MD Monochorionic diamniotic twin , antepartum Discharge Disposition: Home or Self Care 12/10/2024 Travel 12/07/2024 10:45 AM CAR MECHANIC Office Visit [facility] [address] [place] [address] Jaren Rodriguez MD Poor growth affecting management of mother in second trimester, fetus 2 (Primary Dx); Monochorionic diamniotic twin , antepartum 12/07/2024 10:08 AM CAR MECHANIC - 12/07/2024 11:59 PM CAR MECHANIC Hospital Encounter [facility] [address] [place] [address] Jaren Rodriguez MD Monochorionic diamniotic twin , antepartum Discharge Disposition: Home or Self Care 12/07/2024 Travel 12/05/2024 12:30 PM CAR MECHANIC Office Visit [facility] [address] [place] [address] Karin Esteban MD Scheurer, Johannah McMullen, MD Monochorionic diamniotic twin , antepartum 12/05/2024 12:15 PM CAR MECHANIC Office Visit [facility] [address] [place] [address] Karin Esteban MD Marcotte, Michael, MD Monochorionic diamniotic twin , antepartum (Primary Dx); Poor growth affecting management of mother in second trimester, fetus 2; Umbilical cord complication, unspecified cord complication, fetus 2 12/05/2024 11:20 AM CAR MECHANIC - 12/05/2024 11:59 PM CAR MECHANIC Hospital Encounter [facility] [place] [address] [place] [address] Karin Esteban MD Monochorionic diamniotic twin gestation in second trimester; Intrauterine growth restriction affecting antepartum care of mother in first trimester, fetus 2 Discharge Disposition: Home or Self Care 12/05/2024 Orders Only [facility] [address] [place] [address] Joceline Bejarano RN Monochorionic diamniotic twin , antepartum (Primary Dx) 12/05/2024 Travel 12/04/2024 Telephone [facility] [address] [place] [address] Joceline Bejarano, RN Appointment 12/04/2024 MyC Medical Advice [facility] [address] [place] [address] Joceline Bejarano RN 12/03/2024 2:45 PM CAR MECHANIC Office Visit [facility] [address] [place] [address] Nicole Núñez MD Nashif, Sereen, MD Monochorionic diamniotic twin gestation in second trimester (Primary Dx); Intrauterine growth restriction affecting antepartum care of mother in second trimester, fetus 2 12/03/2024 2:01 PM CAR MECHANIC - 12/03/2024 11:59 PM CAR MECHANIC Hospital Encounter [facility] [address] [place] [address] Nicole Núñez MD Monochorionic diamniotic twin gestation in second trimester Discharge Disposition: Home or Self Care 12/03/2024 Travel 12/02/2024 Telephone [facility] [address] [place] [phone] Beverly Gagnon RN Orders 11/30/2024 2:45 PM CAR MECHANIC Office Visit [facility] [place] [address] [place] [address] Nicole Núñez MD Monochorionic diamniotic twin gestation in second trimester (Primary Dx); Intrauterine growth restriction affecting antepartum care of mother in first trimester, fetus 2; Ductus venosus abnormality 11/30/2024 1:31 PM CAR MECHANIC - 11/30/2024 11:59 PM CAR MECHANIC Hospital Encounter [facility] [place] [address] [place] [address] Nicole Núñez MD Monochorionic diamniotic twin gestation in second trimester Discharge Disposition: Home or Self Care 11/30/2024 12:25 PM CAR MECHANIC - 11/30/2024 1:30 PM CAR MECHANIC Hospital Encounter [facility] [address] [place] [phone] Yobani Crespo MD Monochorionic diamniotic twin gestation in second trimester Discharge Disposition: Home or Self Care 11/30/2024 12:00 PM CAR MECHANIC - 11/30/2024 12:24 PM CAR MECHANIC Hospital Encounter [facility] [address] [place] [phone] Yobani Crespo MD Monochorionic diamniotic twin gestation in second trimester Discharge Disposition: Home or Self Care 11/30/2024 Office Visit [facility] [address] [place] [address] [facility] [address] [place] [address] Luc Dominguez MD cardiac anomaly complicating , antepartum, fetus 1 (Primary Dx); cardiac anomaly complicating , antepartum, fetus 2 11/30/2024 Travel 11/22/2024 10:00 AM CAR MECHANIC Office Visit [facility] [place] [address] [facility] [address] [place] [address] Nicole Núñez MD Monochorionic diamniotic twin gestation in second trimester (Primary Dx); Intrauterine growth restriction affecting antepartum care of mother in first trimester, fetus 2 11/22/2024 9:28 AM CAR MECHANIC - 11/22/2024 11:59 PM CAR MECHANIC Hospital Encounter [facility] [place] [address] [place] [address] Nicole Núñez MD Monochorionic diamniotic twin gestation in second trimester Discharge Disposition: Home or Self Care 11/22/2024 Travel 11/14/2024 11:30 AM CAR MECHANIC Office Visit [facility] [place] [address] [place] [address] Flower Amato MD Monochorionic diamniotic twin gestation in second trimester (Primary Dx); Discordant growth in twin gestation, fetus 2 of multiple gestation; Intrauterine growth restriction affecting antepartum care of mother in first trimester, fetus 2 11/14/2024 10:09 AM CAR MECHANIC - 11/14/2024 11:59 PM CAR MECHANIC Hospital Encounter [facility] [place] [address] [place] [address] Flower Amato MD Monochorionic diamniotic twin gestation in second trimester Discharge Disposition: Home or Self Care 11/14/2024 Travel 11/08/2024 10:00 AM CAR MECHANIC Office Visit [facility] [place] [address] [place] [address] Flor Dickson MD Monochorionic diamniotic twin gestation in second trimester (Primary Dx); Discordant growth in twin gestation, fetus 2 of multiple gestation 11/08/2024 9:24 AM CAR MECHANIC - 11/08/2024 11:59 PM CAR MECHANIC Hospital Encounter [facility] [address] [place] [address] Flor Dickson MD Monochorionic diamniotic twin gestation in second trimester Discharge Disposition: Home or Self Care 11/08/2024 Travel 11/02/2024 2:00 PM CAR MECHANIC Office Visit [facility] [place] [address] [place] [address] Yobani Crespo MD Nashif, Sereen, MD Monochorionic diamniotic twin gestation in second trimester (Primary Dx); Intrauterine growth restriction affecting antepartum care of mother in first trimester, fetus 2 11/02/2024 1:22 PM CAR MECHANIC - 11/02/2024 11:59 PM CAR MECHANIC Hospital Encounter [facility] [place] [address] [place] [address] Yobani Crespo MD Nashif, Sereen, MD Monochorionic diamniotic twin gestation in second trimester Discharge Disposition: Home or Self Care 11/02/2024 Travel 10/26/2024 11:30 AM CAR MECHANIC Office Visit [facility] [address] [address] Estrella Esteban MD Monochorionic diamniotic twin gestation in second trimester (Primary Dx); growth restriction antepartum 10/26/2024 11:00 AM CAR MECHANIC Ancillary Procedure [facility] [address] [address] Estrella Esteban MD Monochorionic diamniotic twin gestation in second trimester 10/26/2024 Travel 10/19/2024 11:30 AM CAR MECHANIC Office Visit [facility] [place] [address] [place] [address] Yobani Crespo MD Monochorionic diamniotic twin gestation in second trimester (Primary Dx); growth restriction antepartum 10/19/2024 11:00 AM CAR MECHANIC - 10/19/2024 11:59 PM CAR MECHANIC Hospital Encounter [facility] [address] [place] [address] Yobani Crespo MD related condition, antepartum Discharge Disposition: Home or Self Care 10/19/2024 Travel 10/15/2024 PRE VISIT [facility] [address] [facility] [address] [place] [address] Debra Tran RN Ultrasound (2/3 complete-Twin , mono-di) 10/10/2024 Transcribe Orders [facility] [address] [facility] [address] [place] [address] Pamela Cuellar MD related condition, antepartum (Primary Dx) 10/09/2024 Medical Correspondence [facility] [address] [facility] [address] [place] [address] Scan, Non-Provider from Last 3 Months Immunizations [...] Answer Date Recorded PHQ-2 Score 2 12/10/2024 [place] Depression Scale Answer Date Recorded Last EPDS [...] Date Recorded Do you have housing? ([place] is defined as stable permanent housing and does not include staying ouside in a car, in a tent, in an abandoned building, in an overnight usp, or couch-surfing.) No 12/10/2024 Are you worried [...] on file Legal Sex Female 11:44 PM CAR MECHANIC Gender Identity Not on file Sexual Orientation Not on file Last Filed Vital Signs Vital Sign Reading Time Taken Comments Blood Pressure 119/87 12/23/2024 9:12 AM CAR MECHANIC Pulse 66 12/23/2024 9:12 AM CAR MECHANIC Temperature 36.8 C (98.3 F) 12/23/2024 9:12 AM CAR MECHANIC Respiratory Rate 16 12/23/2024 9:12 AM CAR MECHANIC Oxygen Saturation 99% 12/22/2024 11:39 AM CAR MECHANIC Inhaled Oxygen Concentration - - Weight 67.4 kg (148 lb 8 oz) 12/23/2024 11:09 AM CAR MECHANIC Height 165.1 cm (5' 5) 12/04/2021 10:10 PM CAR MECHANIC Body Mass Index 24.71 12/04/2021 10:10 PM CAR MECHANIC Plan of Treatment Health Maintenance Due Date Last Done Comments ADVANCE CARE PLANNING 1994 ANNUAL REVIEW OF HM ORDERS 1994 ASTHMA ACTION PLAN 1994 ASTHMA CONTROL TEST 1994 YEARLY PREVENTIVE VISIT 1997 Pneumococcal Vaccine: Pediatrics (0 to 5 Years) and At-Risk Patients (6 to 49 Years) (1 of 2 - PCV) 2013 PAP 2015 DTAP/TDAP/TD IMMUNIZATION (7 - Td or Tdap) 09/25/2018 09/25/2008, 07/13/1999, 01/02/1996, Additional history exists COVID-19 Vaccine ( season) 2024 INFLUENZA VACCINE (#1) 2024 ZOSTER IMMUNIZATION (1 of 2) 2044 HEPATITIS B IMMUNIZATION Completed 995, 02/07/1995, 1994, Additional history exists MENINGITIS IMMUNIZATION Completed 10/07/2011 HEPATITIS C SCREENING Completed 04/15/2019 HIV SCREENING Completed 04/15/2019, 09/07/2018 PHQ-2 (once per calendar year) Completed 12/10/2024, 12/10/2024 HPV IMMUNIZATION Aged Out No longer e ligible based on patient's age to complete this topic Procedures Procedure Name Priority Date/Time Associated Diagnosis Comments PLATELET COUNT Routine 12/23/2024 8:01 AM CAR MECHANIC EXTRA BLUE TOP TUBE Routine 12/22/2024 1 0:33 PM CAR MECHANIC EXTRA TUBE Routine 12/22/2024 10:33 PM CAR MECHANIC CBC WITH PLATELETS STAT 12/22/2024 10 :33 PM CAR MECHANIC TROPONIN T, HIGH SENSITIVITY STAT 12/22/2024 10:33 PM CAR MECHANIC EKG 12-LEAD, TRACING ONLY STAT 12/22/2024 9:49 PM CAR MECHANIC ABO/RH TYPE AND SCREEN Timed 9:07 AM CAR MECHANIC TYPE AND SCREEN, ADULT Timed 9:07 AM CAR MECHANIC CBC WITH PLATELETS Timed 12/22/2024 9: 07 AM CAR MECHANIC HEMOGLOBIN Routine 12/21/2024 8:23 AM CAR MECHANIC EXTRA PURPLE TOP TUBE Routine 12/20/2024 3:53 PM CAR MECHANIC EXTRA TUBE Routine 12/20/2024 3:53 PM CAR MECHANIC CREATININE Routine 12/20/2024 3:53 PM CAR MECHANIC ANE PERIPHERAL/PARAVETEBRA L BLOCK Routine 12/20/2024 11:44 AM CAR MECHANIC XR ABDOMEN PORT 1 VIEW Routine 11:40 AM CAR MECHANIC POC US GUIDANCE NEEDLE PLACEMENT Routine 12/20/2024 11:16 AM CAR MECHANIC ANE AIRWAY ETT PERFORMABLE Routine 12/20/2024 10:56 AM CAR MECHANIC SECTION 12/20/2024 10:4 8 AM CAR MECHANIC POC US GUIDANCE NEEDLE PLACEMENT Routine 12/20/2024 9:33 AM CAR MECHANIC ABO/RH TYPE AND SCREEN Timed 8:41 AM CAR MECHANIC TYPE AND SCREEN, ADULT Timed 8:41 AM CAR MECHANIC CBC WITH PLATELETS Timed 12/19/2024 8: 41 AM CAR MECHANIC MFM TWINS US COMPREHENSIVE F/U Routine 12/19/2024 8:22 AM CAR MECHANIC M TWINS US COMPREHENSIVE F/U Routine 12/17/2024 8:33 AM CAR MECHANIC ABO/RH TYPE AND SCREEN Timed 11:00 AM CAR MECHANIC TYPE AND SCREEN, ADULT Timed 11:00 AM CAR MECHANIC CBC WITH PLATELETS Timed 12/16/2024 11 :00 AM CAR MECHANIC [facility] US OB LIMITED SINGLE/MULTIPLE Routine 12/15/2024 8:15 AM CAR MECHANIC [facility] TWINS US COMPREHENSIVE F/U Routine 12/13/2024 8:06 AM CAR MECHANIC ABO/RH TYPE AND SCREEN Timed 6:44 AM CAR MECHANIC TYPE AND SCREEN, ADULT Timed 6:44 AM CAR MECHANIC CBC WITH PLATELETS Timed 12/13/2024 6: 44 AM CAR MECHANIC [facility] TWINS US COMPREHENSIVE F/U Routine 12/11/2024 8:23 AM CAR MECHANIC GROUP B STREP PCR Routine 12/10/2024 8:4 9 PM CAR MECHANIC ABO/RH TYPE AND SCREEN STAT 5:21 PM CAR MECHANIC CBC WITH PLATELETS & DIFFERENTIAL STAT 12/10/2024 5:21 PM CAR MECHANIC TYPE AND SCREEN, ADULT STAT 5 5:21 PM CAR MECHANIC FERRITIN Add-On 12/10/2024 5:21 PM CAR MECHANIC IRON AND IRON BINDING CAPACITY Add-On 12/10/2024 5:21 PM CAR MECHANIC CBC WITH PLATELETS AND DIFFERENTIAL STAT 12/10/2024 5:21 PM CAR MECHANIC TREPONEMA ABS W REFLEX TO RPR AND TITER STAT 12/10/2024 5:21 PM CAR MECHANIC COMPREHENSIVE METABOLIC PANEL STAT 12/10/2024 5:21 PM CAR MECHANIC MFM TWINS US COMPREHENSIVE F/U Routine 12/10/2024 2:29 PM CAR MECHANIC Monochorionic diamniotic twin , antepartum NON-STRESS TEST - HIM SCAN 12/10/2024 12:00 AM CAR MECHANIC MFM TWINS US COMPREHENSIVE F/U Routine 12/07/2024 11:40 AM CAR MECHANIC Monochorionic diamniotic twin , antepartum MFM TWINS US COMPREHENSIVE F/U Routine 12/05/2024 12:28 PM CAR MECHANIC Monochorionic diamniotic twin gestation in second trimester Intrauterine growth restriction affecting antepartum care of mother in first trimester, fetus 2 MFM TWINS US COMPREHENSIVE F/U Routine 12/03/2024 3:46 PM CAR MECHANIC Monochorionic diamniotic twin gestation in second trimester MFM TWINS US COMPREHENSIVE F/U Routine 11/30/2024 3:11 PM CAR MECHANIC Monochorionic diamniotic twin gestation in second trimester ECHO COMPLETE Routine 11/30/2024 1 :46 PM CAR MECHANIC Monochorionic diamniotic twin gestation in second trimester ECHO COMPLETE Routine 11/30/2024 1 :46 PM CAR MECHANIC Monochorionic diamniotic twin gestation in second trimester MFM TWINS US COMPREHENSIVE F/U Routine 11/22/2024 11:09 AM CAR MECHANIC Monochorionic diamniotic twin gestation in second trimester MFM TWINS US COMPREHENSIVE Routine 11/14/2024 11:59 AM CAR MECHANIC Monochorionic diamniotic twin gestation in second trimester MFM TWINS US COMPREHENSIVE F/U Routine 11/08/2024 10:15 AM CAR MECHANIC Monochorionic diamniotic twin gestation in second trimester MFM TWINS US COMPREHENSIVE F/U Routine 11/02/2024 2:26 PM CAR MECHANIC Monochorionic diamniotic twin gestation in second trimester MFM TWINS US COMPREHENSIVE F/U Routine 10/26/2024 11:48 AM CAR MECHANIC Monochorionic diamniotic twin gestation in second trimester MFM TWINS US OB COMPLETE 2/3 TRI Routine 10/19/2024 1:39 PM CAR MECHANIC related condition, antepartum from Last 3 Months Results * Platelet count (12/23/2024 8:01 AM CAR MECHANIC) Platelet Count 219 150 - 450 10e3/uL 12/23/2024 8:16 AM CAR MECHANIC [facility] Blood STRUCTURE OF LEFT UPPER LIMB / Unknown Venipuncture / Unknown 12/23/2024 8:01 AM CAR MECHANIC 12/23/2024 8:13 AM CAR MECHANIC us Oneil Lyons MD LAB - BLOOD ORDERABLES Final R esult UR LABORATORY [facility] [address] [place] [address], [address] * Extra Blue Top Tube (12/22/2024 10:33 PM CAR MECHANIC) Hold Specimen JIC 12/22/2024 11:46 PM CAR MECHANIC UR LAB[facility] Blood STRUCTURE OF RIGHT UPPER LIMB / Unknown Venipuncture / Unknown 12/22/2024 10:33 PM CAR MECHANIC 12/22/2024 10:42 PM CAR MECHANIC us Emil Ahmadi MD LAB - BLOOD ORDERABLES Fin al Result UR LABORATORY [facility] [address] [place] [address], [address] * Troponin T, High Sensitivity (12/22/2024 10:33 PM CAR MECHANIC) [facility] Troponin T, High Sensitivity <6 <=14 ng/L 12/22/2024 11:01 PM CAR MECHANIC UR LABORATORY Comment: Either a High Sensitivity [...] Unknown Venipuncture / Unknown 12/22/2024 10:33 PM CAR MECHANIC 12/22/2024 10:39 PM CAR MECHANIC us Cameron Leach MD LAB - BLOOD ORDERABLES Final Res ult UR LABORATORY [facility] [address] [facility] [place] [address], [facility] * (ABNORMAL) CBC with platelets (12/22/2024 10:33 PM CAR MECHANIC) Only the most recent of5 resultswithin the time period is included. [facility] WBC Count 3.6(L) 4.0 - 11.0 10e3/uL 12/22/2024 10:45 PM CAR MECHANIC UR LAB[facility]ATORY RBC Count 3.78(L) 3.80 - 5.20 10e6/uL 12/22/2024 10:45 PM CAR MECHANIC UR LAB[facility]ORY Hemoglobin 9.4(L) 11.7 - 15.7 g/dL 12/22/2024 10:45 PM CAR MECHANIC UR LAB[facility] Hematocrit 30.5(L) 35.0 - 47.0 % 12/22/2024 10:45 PM CAR MECHANIC [facility] MCV 81 78 - 100 fL 12/22/2024 10:45 PM CAR MECHANIC UR LAB[facility] MCH 24.9(L) 26.5 - 33.0 pg 12/22/2024 10:45 PM CAR MECHANIC UR LAB[facility] MCHC 30.8(L) 31.5 - 36.5 g/dL 12/22/2024 10:45 PM CAR MECHANIC UR LAB[facility] RDW 18.0(H) 10.0 - 15.0 % 12/22/2024 10:45 PM CAR MECHANIC UR [facility] Platelet Count 219 150 - 450 10e3/uL 12/22/2024 10:45 PM CAR MECHANIC UR [facility] Blood STRUCTURE OF RIGHT UPPER LIMB / Unknown Venipuncture / Unknown 12/22/2024 10:33 PM CAR MECHANIC 12/22/2024 10:39 PM CAR MECHANIC us Cameron Leach MD LAB - BLOOD ORDERABLES Final Res ult UR LABORATORY [facility] [address] [place] [address], [address] * Adult Type and Screen (12/22/2024 9:07 AM CAR MECHANIC) Only the most recent of5 resultswithin the time period is included. ABO/RH(D) O POS 12/22/2024 6:00 AM CAR MECHANIC UR BLOOD BANK Antibody Screen Negative Negative 12/22/2024 6:00 AM CAR MECHANIC UR BLOOD BANK SPECIMEN EXPIRATION DATE [id number] 12/22/2024 6:00 AM CAR MECHANIC UR BLOOD BANK Blood STRUCTURE OF RIGHT UPPER LIMB / Unknown Venipuncture / Unknown 12/22/2024 9:07 AM CAR MECHANIC 12/22/2024 9:14 AM CAR MECHANIC us Cameron Leach MD LAB - BLOOD BANK TEST ORDER Yenny l Result UR BLOOD BANK [facility] [address] [place] [address], [address] * (ABNORMAL) Hemoglobin (12/21/2024 8:23 AM CAR MECHANIC) Hemoglobin 9.3(L) 11.7 - 15.7 g/dL 12/21/2024 8:41 AM CAR MECHANIC UR LABORATORY Blood BLOOD SPECIMEN / Unknown Venipuncture / Unknown 12/21/2024 8:23 AM CAR MECHANIC 12/21/2024 8:37 AM CAR MECHANIC Oneil Lyons MD LAB - BLOOD ORDERABLES Final R esult UR LABORATORY [facility] [address] [place] [address], [address] * Extra Purple Top Tube (12/20/2024 3:53 PM CAR MECHANIC) Hold Specimen JIC 12/20/2024 5:03 PM CAR MECHANIC UR LABORATORY Blood STRUCTURE OF RIGHT UPPER LIMB / Unknown Venipuncture / Unknown 12/20/2024 3:53 PM CAR MECHANIC 12/20/2024 3:58 PM CAR MECHANIC Emil Ahmadi MD LAB - BLOOD ORDERABLES Fin al Result Performing Organization Address City/[facility] Co de Phone Number UR LABORATORY [facility] [address] [place] [address], [address] * Creatinine (12/20/2024 3:53 PM CAR MECHANIC) Creatinine 0.53 0.51 - 0.95 mg/dL 12/20/2024 4:25 PM CAR MECHANIC UR LABORATORY GFR Estimate >90 >60 mL/min/1.7 3m2 12/20/2024 4:25 PM CAR MECHANIC UR LABORATORY Comment:eGFR calculated us2020 CKD-EPI equation. Blood STRUCTURE OF RIGHT UPPER LIMB / Unknown Venipuncture / Unknown 12/20/2024 3:53 PM CAR MECHANIC 12/20/2024 3:58 PM CAR MECHANIC us Oneil Lyons MD LAB - BLOOD ORDERABLES Final R esult UR LABORATORY [facility] [address] [facility], [address] [place] [address], [facility] * Peripheral/Paravertebral Block (12/20/2024 11:44 AM CAR MECHANIC) Narrative Evangelina Helm MD - 12/20/2024 11:44 AM CAR MECHANIC Evangelina Helm MD 12/20/2024 11:44 AM TAP Procedure Note Pre-Procedure Staff - Anesthesiologist: Evangelina Helm MD Resident/Fellow: Katerina Hardy MD Performed By: resident Location: pre-op Pre-Anesthestic Checklist: patient identified, IV checked, site marked, risks and benefits discussed, informed consent, monitors and equipment checked, pre-op evaluation, at physician/surgeon's request and post-op pain management Timeout: Correct Patient: Yes Correct Procedure: Yes Correct Site: Yes Correct Position: Yes Correct Laterality: Yes Procedure Documentation Procedure: TAP Laterality: bilateral Patient Position: supine Skin prep: Chloraprep Needle Gauge: 21. Needle Length (millimeters): 110 Ultrasound guided 1. Ultrasound was used to identify targeted nerve, plexus, vascular marker, or fascial plane and place a needle adjacent to it in real-time. 2. Ultrasound was used to visualize the spread of anesthetic in close proximity to the above referenced structure. 3. A permanent image is entered into the patient's record. Assessment/Narrative The placement was negative for: blood aspirated, painful injection and site bleeding Paresthesias: No. Bolus given via needle. no blood aspirated via catheter. Secured via. Insertion/Infusion Method: Single Shot Complications: none Medication(s) Administered Bupivacaine 0.25% PF (Infiltration) - Infiltration 20 mL - 12/20/2024 11:44:00 AM Bupivacaine liposome (Exparel) 1.3% LA inj susp (Infiltration) - Infiltration 20 mL - 12/20/2024 11:44:00 AM FOR [facility] ([facility]) ONLY: Pain Team Contact information: please page the Pain Team Via [employer]. Search Pain. During daytime hours, please page the attending first. At night please page the resident first. us Eneida Sanon MD [place] ANESTHESIA Final Result * XR Abdomen Port 1 View (12/20/2024 11:40 AM CAR MECHANIC) Anatomical Region Laterality Modality Abdomen/Pelvis Computed Radiogr aphy Impressions 12/20/2024 11:45 AM CAR MECHANIC Impression: Curvilinear radiopacities overlying the right upper radiograph overlying the right inferior ribs, indeterminate, question external to the patient. Consider correlation. Otherwise no radiopaque instrument or needle visualized overlying the pelvis in field of view of the radiograph Finding of indeterminate radiopacity communicated to operating room personnel by Zachary at 11:30 AM 12/20/2024 MARY BRADEN MD Narrative 12/20/2024 11:45 AM CAR MECHANIC Exam: XR ABDOMEN PORT 1 VIEW, 12/20/2024 11:31 AM Indication: Stat , no instrument count Comparison: None Findings: Nonspecific bowel gas pattern. Moderate colonic stool burden. Rounded radiopacities in the pelvis likely phlebolith. Curvilinear radiopacity overlying the right upper quadrant overlying the inferior ribs, possibly external to the patient. Consider correlation. Procedure Note Mary Braden MD - 12/20/2024 Exam: XR ABDOMEN PORT [...] by Zachary at 11:30 AM 12/20/2024 MARY BRADEN MD Pennie Frank MD IMG DIAGNOSTIC IMAGING ORDERA BLES Final Result * POC US Guidance Needle Placement (12/20/2024 11:16 AM CAR MECHANIC) Only the most recent of2 resultswithin the time period is included. Anatomical Region Laterality Modality Other Impressions 12/20/2024 11:16 AM CAR MECHANIC Transversus abdominus plane block, bilateral Eneida Sanon MD IMG POCUS Final Result * ANE AIRWAY ETT PERFORMABLE (12/20/2024 10:56 AM CAR MECHANIC) Narrative Evangelina Helm MD - 12/20/2024 10:56 AM CAR MECHANIC Evangelina Helm MD 12/20/2024 11:14 AM Airway Patient location during procedure: OR Procedure Start/Stop Times: 12/20/2024 10:56 AM Staff - Anesthesiologist: Eneida Sanon MD Resident/Fellow: Evangelina Helm MD Performed By: residentIndications and Patient Condition Indications for airway management: joanne-procedural Induction type:RSI Mask difficulty assessment: 0 - not attempted Final Airway Details Final airway type: endotracheal airway Successful airway: ETT - single Endotracheal Airway Details ETT size (mm): 6.5 Cuffed: yes Successful intubation technique: video laryngoscopy VL Blade Size: MAC 3 Grade View of Cords: 1 Adjucts: stylet Position: Right Measured from: gums/teeth Secured at (cm): 22 Bite block used: Soft Post intubation assessment Placement verified by: capnometry, equal breath sounds and chest rise Number of attempts at approach: 1 Number of other approaches attempted: 0 Secured with: pink tape Ease of procedure: easy Dentition: Unchanged Medication(s) Administered Medication Administration Time: 12/20/2024 10:56 AM Eneida Sanon MD [place] ANESTHESIA Final Result * MFM Twins [facility] F/U (12/19/2024 8:22 AM CAR MECHANIC) Only the most recent of13 resultswithin the time period is included. Anatomical Region Laterality Modality Ultrasound 12/19/2024 7:12 AM CAR MECHANIC Impressions 12/19/2024 8:29 AM CAR MECHANIC IMPRESSION ----- Monochorionic diamniotic twin gestation with [...] of twin 2. Narrative 12/19/2024 8:29 AM [facility] Surveillance US ----- Pat. Name: DEANDRE LEYVA Study Date: 12/19/2024 7:12am Pat. NO: [id number] Referring MD: PAMELA CUELLAR Site: Bagging Salvager: Piper Huynh RDMS : 1995 Age: 29 ----- INDICATION ----- INPATIENT Abnormal UA Doppler and Ductus Venosus waveforms Monochorionic-Diamniotic Twin Gestation Selective Growth Restriction (FGR) fetus 2 Circumvallate placenta METHOD ----- [facility] inpatient exam. Transabdominal ultrasound examination. View: Sufficient. ----- Twin . Number of fetuses: 2. Monochorionic-diamniotic Membrane Description: thin dividing membrane visualized between fetuses 1 and 2 DATING ----- Date Details Gest. age TOMMIE LMP 07/01/2024 24 w + 3 d [...] 12/19/2024 Surveillance US ----- Pat. Name: DEANDRE LEYVA Study Date: 12/19/2024 7:12am Pat. NO: [id number] Referring MD: PAMELA CUELLAR Site: Bagging Salvager: Piper Huynh RDMS : 1995 Age: 29 ----- INDICATION ----- INPATIENT Abnormal UA Doppler and Ductus Venosus waveforms Monochorionic-Diamniotic Twin Gestation Selective Growth Restriction (FGR) fetus 2 Circumvallate placenta METHOD ----- [facility] inpatient exam. Transabdominal ultrasound examination.View: Sufficient. [...] of twin 2. us Joceline Grant MD Zak [facility] US ORDERABLES Edited Res ult - Final * Maternal US OB Limited Single/Multiple (12/15/2024 8:15 AM CAR MECHANIC) Anatomical Region Laterality Modality Ultrasound 12/15/2024 7:38 AM CAR MECHANIC Impressions 12/15/2024 10:58 AM CAR MECHANIC IMPRESSION ----- Monochorionic diamniotic twin gestation with [...] anemia polycythemia syndrome. Narrative 12/15/2024 10:58 AM [facility] Surveillance US ----- Pat. Name: DEANDRE LEYVA Study Date: 12/15/2024 7:38am Pat. NO: [id number] Referring MD: PAMELA CUELLAR Site: Bagging Salvager: Chantell Jarquin RDMS : 1995 Age: 29 ----- INDICATION ----- INPATIENT Abnormal UA Doppler and Ductus Venosus waveforms Monochorionic-Diamniotic Twin Gestation Selective Growth Restriction (FGR) fetus 2 Circumvallate placenta METHOD ----- [facility] inpatient exam, Transabdominal ultrasound examination. View: Sufficient. ----- Twin . Number of fetuses: 2. Monochorionic-diamniotic DATING ----- Date Details Gest. age TOMMIE LMP 07/01/2024 23 w + 6 d [...] 12/15/2024 Surveillance US ----- Pat. Name: DEANDRE LEYVA Study Date: 12/15/2024 7:38am Pat. NO: [id number] Referring MD: PAMELA CUELLAR Site: Bagging Salvager: Chantell Jarquin RDMS : 1995 Age: 29 ----- INDICATION ----- INPATIENT Abnormal UA Doppler and Ductus Venosus waveforms Monochorionic-Diamniotic Twin Gestation Selective Growth Restriction (FGR) fetus 2 Circumvallate placenta METHOD ----- [facility] inpatient exam, Transabdominal ultrasound examination.View: Sufficient. ----- Twin . Number of fetuses: 2. Monochorionic-diamniotic DATING ----- DateDetailsGest. age TOMMIE LMP w + 6 d 04/07/2025 Previous [...] anemia polycythemia syndrome. us Guevara Amin MD [facility] US ORDERABLES Edited Res ult - Final * (ABNORMAL) Group B strep PCR (12/10/2024 8:49 PM CAR MECHANIC) Group B Strep PCR Positive( A) Negative 12/11/2024 7:23 PM CAR MECHANIC [facility] Comment:ALERT: Streptococcus agalactiae (Group B Streptococcus) has a high rate of resistance to clindamycin. Therefore, clindamycin is not recommended for treatment unless susceptibility testing has been performed. Swab STRUCTURE OF RECTOVAGINAL SEPTUM / Unknown Non-blood Collection / Unknown 12/10/2024 8:49 PM CAR MECHANIC 12/10/2024 8:55 PM CAR MECHANIC Narrative [facility] - 12/11/2024 7:23 PM CAR MECHANIC [employer] Xpert GBS LB Assay, performed on the [employer] Systems, is a qualitative in vitro diagnostic [...] or monitor treatment for GBS infections. The [employer] Xpert GBS LB Assay is intended for use in hospital, reference or state laboratory settings. The device is not intended for qhqeh-qc-xusy use. us Jenny De Souza MD LAB - MICRO GENERAL ORDERABLES Final Result [facility] Inf. Diseases Diag. Lab [address] [facility], [address] [place] [phone] * (ABNORMAL) CBC with platelets and differential (12/10/2024 5:21 PM CAR MECHANIC) [facility] WBC Count 5.7 4.0 - 11.0 10e3/uL 12/10/2024 5:32 PM CAR MECHANIC UR LABORATORY RBC Count 4.15 3.80 - 5.20 10e6/uL 12/10/2024 5:32 PM CAR MECHANIC UR LABORATORY Hemoglobin 10.0(L) 11.7 - 15.7 g/dL 12/10/2024 5:32 PM CAR MECHANIC UR LABORATORY Hematocrit 32.4(L) 35.0 - 47.0 % 12/10/2024 5:32 PM CAR MECHANIC UR LABORATORY MCV 78 78 - 100 fL 12/10/2024 5:32 PM CAR MECHANIC UR LABORATORY MCH 24.1(L) 26.5 - 33.0 pg 12/10/2024 5:32 PM CAR MECHANIC UR LABORATORY MCHC 30.9(L) 31.5 - 36.5 g/dL 12/10/2024 5:32 PM CAR MECHANIC UR LABORATORY RDW 15.0 10.0 - 15.0 % 12/10/2024 5:32 PM CAR MECHANIC UR LABORATORY Platelet Count 220 150 - 450 10e3/uL 12/10/2024 5:32 PM CAR MECHANIC UR LABORATORY % Neutrophils 69 % 12/10/2024 5:32 PM CAR MECHANIC UR LABORATORY % Lymphocytes 24 % 12/10/2024 5:32 PM CAR MECHANIC UR LABORATORY % Monocytes 6 % 12/10/2024 5:32 PM CAR MECHANIC UR LABORATORY % Eosinophils 0 % 12/10/2024 5:32 PM CAR MECHANIC UR LABORATORY % Basophils 0 % 12/10/2024 5:32 PM CAR MECHANIC UR LABORATORY % Immature Granulocytes 0 % 12/10/2024 5:32 PM CAR MECHANIC UR LABORATORY NRBCs per 100 WBC 0 <1 /100 025 5:32 PM CAR MECHANIC UR LABORATORY Absolute Neutrophils 3.9 1.6 - 8.3 10e3/uL 12/10/2024 5:32 PM CAR MECHANIC UR LABORATORY Absolute Lymphocytes 1.4 0.8 - 5.3 10e3/uL 12/10/2024 5:32 PM CAR MECHANIC UR LABORATORY Absolute Monocytes 0.3 0.0 - 1.3 10e3/uL 12/10/2024 5:32 PM CAR MECHANIC UR LABORATORY Absolute Eosinophils 0.0 0.0 - 0.7 10e3/uL 12/10/2024 5:32 PM CAR MECHANIC UR LABORATORY Absolute Basophils 0.0 0.0 - 0.2 10e3/uL 12/10/2024 5:32 PM CAR MECHANIC UR LABORATORY Absolute Immature Granulocytes 0.0 <=0.4 10e3/uL 12/10/2024 5:32 PM CAR MECHANIC UR LABORATORY Absolute NRBCs 0.0 10e3/uL 12/10/2024 5:32 PM CAR MECHANIC UR LABORATORY Blood STRUCTURE OF RIGHT HAND / Unknown Venipuncture / Unknown 12/10/2024 5:21 PM CAR MECHANIC 12/10/2024 5:25 PM CAR MECHANIC us Jenny De Souza MD LAB - BLOOD ORDERABLES Final Re sult UR LABORATORY [facility] [address] [facility], [address] [place] [id number] [place] [address] * Treponema Abs w Reflex to RPR and Titer (12/10/2024 5:21 PM CAR MECHANIC) Treponema Antibody Total Nonreactive Nonreactive 12/10/2024 10:44 PM CAR MECHANIC SPECIALTY CORE/PROT/EN DO Blood STRUCTURE OF RIGHT HAND / Unknown Venipuncture / Unknown 12/10/2024 5:21 PM CAR MECHANIC 12/10/2024 5:25 PM CAR MECHANIC Jenny De Souza MD LAB - BLOOD ORDERABLES Final Re sult SPECIALTY CORE/PROT/ENDO Specialty Core/Prot/Endo [address] [facility], [address] * (ABNORMAL) Iron and iron binding capacity (12/10/2024 5:21 PM CAR MECHANIC) Iron 20(L) 37 - 145 ug/dL 12/11/2024 4:00 AM CAR MECHANIC UR LABORATORY Iron Binding Capacity 398 240 - 430 ug/dL 12/11/2024 4:00 AM CAR MECHANIC UR LABORATORY Iron Sat Index 5(L) 15 - 46 % 12/11/2024 4:00 AM CAR MECHANIC UR LABORATORY Blood STRUCTURE OF RIGHT HAND / Unknown Venipuncture / Unknown 12/10/2024 5:21 PM CAR MECHANIC 12/10/2024 5:25 PM CAR MECHANIC us Cameron Leach MD LAB - BLOOD ORDERABLES Final Res ult UR LABORATORY [facility] [address] [facility], Room [address] [phone] * Ferritin (12/10/2024 5:21 PM CAR MECHANIC) Ferritin 15 6 - 175 ng/mL 12/11/2024 4:00 AM CAR MECHANIC UR LABORATORY Blood STRUCTURE OF RIGHT HAND / Unknown Venipuncture / Unknown 12/10/2024 5:21 PM CAR MECHANIC 12/10/2024 5:25 PM CAR MECHANIC us Cameron Leach MD LAB - BLOOD ORDERABLES Final Res ult UR LABORATORY [facility] [address] [facility], [address] [place] [address] * (ABNORMAL) Comprehensive metabolic panel (12/10/2024 5:21 PM CAR MECHANIC) Sodium 136 135 - 145 mmol/L 12/10/2024 5:53 PM CAR MECHANIC UR LABORATORY Potassium 3.9 3.4 - 5.3 mmol/L 12/10/2024 5:53 PM CAR MECHANIC UR LABORATORY Carbon Dioxide (CO2) 21(L) 22 - 29 mmol/L 12/10/2024 5:53 PM CAR MECHANIC UR LABORATORY Anion Gap 11 7 - 15 mmol/L 12/10/2024 5:53 PM CAR MECHANIC UR LABORATORY Urea Nitrogen 8.4 6.0 - 20.0 mg/dL 12/10/2024 5:53 PM CAR MECHANIC UR LABORATORY Creatinine 0.51 0.51 - 0.95 mg/dL 12/10/2024 5:53 PM CAR MECHANIC UR LABORATORY GFR Estimate >90 >60 mL/min/1.7 3m2 12/10/2024 5:53 PM CAR MECHANIC UR LABORATORY Comment:eGFR calculated us2020 CKD-EPI equation. Calcium 8.9 8.8 - 10.4 mg/dL 12/10/2024 5:53 PM CAR MECHANIC UR LABORATORY Chloride 104 98 - 107 mmol/L 12/10/2024 5:53 PM CAR MECHANIC UR LABORATORY Glucose 79 70 - 99 mg/dL 12/10/2024 5:53 PM CAR MECHANIC UR LABORATORY Alkaline Phosphatase 76 40 - 150 U/L 12/10/2024 5:53 PM CAR MECHANIC UR LABORATORY AST 21 0 - 45 U/L 12/10/2024 5:53 PM CAR MECHANIC UR LABORATORY ALT 16 0 - 50 U/L 12/10/2024 5:53 PM CAR MECHANIC UR LABORATORY Protein Total 6.5 6.4 - 8.3 g/dL 12/10/2024 5:53 PM CAR MECHANIC UR LABORATORY Albumin 3.5 3.5 - 5.2 g/dL 12/10/2024 5:53 PM CAR MECHANIC UR LABORATORY Bilirubin Total 0.3 <=1.2 mg/dL 12/10/2024 5:53 PM CAR MECHANIC UR LABORATORY Blood STRUCTURE OF RIGHT HAND / Unknown Venipuncture / Unknown 12/10/2024 5:21 PM CAR MECHANIC 12/10/2024 5:25 PM CAR MECHANIC us Jenny De Souza MD LAB - BLOOD ORDERABLES Final Re sult UR LABORATORY [facility] [address] [place] [address], Room [address] [phone] * Non-Stress Test - HIM Scan (12/10/2024 12:00 AM CAR MECHANIC) 12/10/2024 us Provider Outside PROCEDURES Final Result * ECHO COMPLETE (11/30/2024 1:46 PM CAR MECHANIC) Anatomical Region Laterality Modality Echocardiography 11/30/2024 1:42 PM CAR MECHANIC Narrative 11/30/2024 2:07 PM CAR MECHANIC [id number]^ZAK^YOBANI Study ID: [id number] [facility] [address] [address] Echocardiogram Name: DEANDRE LEYVA Study Date: 11/30/2024 01:42 PM Patient Location: [facility] Gender: Female Patient Class: Outpatient : 1995 Age: 29 yrs Ordering Provider: YOBANI CRESPO Referring Provider: YOBANI CRESPO Performed By: Daphney Dao RDCS Reading Physician: Lcu Dominguez MD Reason For Study: Monochorionic diamniotic twin gestation in second trimester Data: Number of fetuses: This is a twin gestation. Due date: 04/07/2025. Gestational age: 21w5d. Delivery at: [facility]. Specific Indication: echocardiogram performed for monochorionic diamniotic [...] to the left atrium. There is laminar zccuc-oo-rigq shunting across the foramen ovale. Atrioventricular valves: [...] Procedure Note Luc Dominguez MD - 11/30/2024 [id number] [facility] [id number]^ZAK^YOBANI Study ID:[id number] [facility] [address] [place] [address] Echocardiogram Name: DEANDRE LEYVA Study Date: 11/30/2024 01:42 PM Patient Location: [facility] Gender: Female Patient Class:Outpatient : 1995 Age: 29 yrs Ordering Provider: YOBANI CRESPO Referring Provider: YOBANI CRESPO Performed By: Daphney Dao RDCS Reading Physician: Luc Dominguez MD Reason For Study: Monochorionic diamniotic twin gestation in secondtrimeer Data: Number of fetuses: This is a twin gestation. Due date: 04/07/2025. Gestational age: 21w5d. Delivery at: [facility]. Specific Indication: echocardiogram performed formonochorionic diamniotic twins. [...] in to the left atrium. There is wifgphueupzj-vo-hbbv shunting across the foramen ovale. Atrioventricular valves: [...] Final * ECHO COMPLETE (11/30/2024 1:46 PM CAR MECHANIC) Anatomical Region Laterality Modality Echocardiography 11/30/2024 1:31 PM CAR MECHANIC Narrative 11/30/2024 2:02 PM CAR MECHANIC [id number]^ZAK^YOBANI Study ID: [id number] [facility] [address] [address] Echocardiogram Name: DEANDRE LEYVA Study Date: 11/30/2024 01:31 PM Patient Location: [facility] Gender: Female Patient Class: Outpatient : 1995 Age: 29 yrs Ordering Provider: YOBANI CRESPO Referring Provider: YOBANI CRESPO Performed By: Daphney Dao RDCS Reading Physician: Luc Dominguez MD Reason For Study: Monochorionic diamniotic twin gestation in second trimester Data: Number of fetuses: This is a twin gestation. Due date: 04/07/2025. Gestational age: 21w5d. Delivery at: [facility]. Specific Indication: echocardiogram performed for monochorionic diamniotic [...] to the left atrium. There is laminar pzqwm-ss-rsax shunting across the foramen ovale. Atrioventricular valves: [...] Procedure Note Luc Dominguez MD - 11/30/2024 [id number] [facility] [id number]^ZAK^YOBANI Study ID:[id number] [facility] [place] [address] Echocardiogram Name: DEANDRE LEYVA Study Date: 11/30/2024 01:31 PM Patient Location: [facility] Gender: Female Patient Class:Outpatient : 1995 Age: 29 yrs Ordering Provider: YOBANI CRESPO Referring Provider: YOBANI CRESPO Performed By: Daphney Dao ELLA Reading Physician: Luc Dmoinguez MD Reason For Study: Monochorionic diamniotic twin gestation in secondtrimester Data: Number of fetuses: This is a twin gestation. Due date: 04/07/2025. Gestational age: 21w5d. Delivery at: [facility]. Specific Indication: echocardiogram performed formonochorionic diamniotic twins. [...] in to the left atrium. There is jccqfxhclell-gx-ajip shunting across the foramen ovale. Atrioventricular valves: [...] * MFM Twins Comprehensive (11/14/2024 11:59 AM CAR MECHANIC) Anatomical Region Laterality Modality Ultrasound 11/14/2024 10:2 4 AM CAR MECHANIC Impressions 11/14/2024 4:40 PM CAR MECHANIC IMPRESSION ----- Monochorionic diamniotic twin gestation [...] anemia polycythemia syndrome. Narrative 11/14/2024 4:40 PM CAR MECHANIC Comprehensive ----- Pat. Name: DEANDRE LEYVA Study Date: 11/14/2024 10:24am Pat. NO: [id number] Referring MD: PAMELA CUELLAR Site: Bagging Salvager: Emerita Corona RDMS : 1995 Age: 29 [...] 0 lb 11 oz EFW by Hadlock ([id number]) EFW discordance 30.6 % Head / Face / Neck Biometry: Parimutuel Ticket Cashier 6.9 mm CM 2.6 mm Nasal bone [...] 0 lb 8 oz EFW by [facility]lock ([id number]) EFW discordance 30.6 % Head / Face / Neck Biometry: Parimutuel Ticket Cashier 6.8 mm CM 4.4 mm Extremities / [...] view. RVOT view. LVOT view. 3-vessel view. 5-bcxknm-jguprgt view. Situs. Aortic arch view. Bicaval view. [...] Thorax 4-chamber view. RVOT view. LVOT view. 5-aiqkkt-lepmmgi view. Aortic arch view. sex: female. Fetus [...] recommendation. She was again offered referral to [place] for a second opinion/discussion about options in [...] the patient (reviewing medical records/tests), in direct ittc-yc-enna contact with the patient counseling and discussing the plan of care, documenting the visit in the electronic medical record, and communicating with other health vehicle care specialist and/or care coordination. Please see note for details. Procedure Note Flower Amato MD - 11/14/2024 Comprehensive ----- Pat. Name: DEANDRE LEYVA Study Date: 11/14/2024 10:24am Pat. NO: [id number] Referring MD: PAMELA CUELLAR Site: Bagging Salvager: Emerita Corona RDMS : 1995 Age: 29 [...] EFW (lb,oz) 0 lb 11oz EFW by Hadlock([id number]) EFW discordance 30.6% Head / Face / Neck Biometry: Parimutuel Ticket Cashier 6.9mm CM 2.6mm Nasal bone 7.8mm Fetus 2: BIOMETRY ----- BPD 42.9mm 19w 0dHadlock OFD 55.1mm 18w 2dNicolaides HC 156.8mm 18w 4dHadlock Cerebellum tr 18.1mm 18w 0dNicolaides Nuchal fold 3.0mm AC 128.0mm 18w 3d 15%Hadlock Femur 24.5mm 17w 3dHadlock Humerus 23.5mm 17w 2dJeanty Weight Calculation: EFW 219g 2%Hadlock EFW (lb,oz) 0 lb 8oz EFW by Hadlock([id number]) EFW discordance 30.6% Head / Face / Neck Biometry: Parimutuel Ticket Cashier 6.8mm CM 4.4mm Extremities / Bony Struc [...] 4-chamber view. RVOT view. LVOT view.3-vessel view. 9-jtbqtc-gwcieft view. Situs. Aortic arch view. Bicavalview. Ductal [...] / Thorax 4-chamber view. RVOT view. LVOT view.2-gmxntd-axpzwpl view. Aortic arch view. sex: female. Fetus [...] the recommendation. She was again offered referralto [place] for a second opinion/discussion about options in [...] see the patient(reviewing medical records/tests), in direct ltzj-rr-sqmk contact with the patient counseling and discussingthe plan of care, documenting the visit in the electronic medical record,and communicating with other health vehicle care specialist and/or care coordination. Please see [...] polycythemia syndrome. us Yobani Crespo MD [facility] US ORDERABLES Edited Result - Final * [facility] Twins US OB Complete 2/3 Tri (10/19/2024 1:39 PM CAR MECHANIC) Anatomical Region Laterality Modality Ultrasound 10/19/2024 11:0 2 AM CAR MECHANIC Impressions 10/21/2024 3:34 PM CAR MECHANIC IMPRESSION ----- Monochorionic diamniotic twin gestation [...] long and closed. Narrative 10/21/2024 3:34 PM CAR MECHANIC / Trim ----- Pat. Name: DEANDRE LEYVA Study Date: 10/19/2024 11:02am Pat. NO: [id number] Referring MD: PAMELA CUELLAR Site: Bagging Salvager: Chantell Jarquin RDMS : 1995 Age: 29 [...] 0 lb 5 oz EFW by Hadlock ([id number]) EFW discordance 26.5 % Head / Face / Neck Biometry: Parimutuel Ticket Cashier 6.3 mm CM 2.2 mm Nasal bone [...] 0 lb 4 oz EFW by Hadlock ([id number]) EFW discordance 26.5 % Head / Face / Neck Biometry: Parimutuel Ticket Cashier 6.7 mm CM 2.5 mm Fetus 1: [...] Heart / Thorax 4-chamber view. 3-vessel view. 3-afmwee-qjscwmo view. sex: female. Fetus 2: ANATOMY ----- [...] Profile. Nose. Maxilla. Mandible. Heart / Thorax 4-hukhzm-mvzcmnt view. Aortic arch view. Bicaval view. Ductal [...] discussed the option a referral to the [place] [facility] to discuss the option of [...] the patient (reviewing medical records/tests), in direct idys-bn-pygl contact with the patient during the visit counseling and discussing the plan of care and documenting the visit in the electronic medical record. Procedure Note Yobani Crespo MD - 10/22/2024 / Trim ----- Pat. Name: DEANDRE LEYVA Study Date: 10/19/2024 11:02am Pat. NO: [id number] Referring MD: PAMELA CUELLAR Site: Bagging Salvager: Chantell Jarquin RDMS : 1995 Age: 29 [...] EFW (lb,oz) 0 lb 5oz EFW by Hadlock([id number]) EFW discordance 26.5% Head / Face / Neck Biometry: Parimutuel Ticket Cashier 6.3mm CM 2.2mm Nasal bone 4.1mm Fetus 2: BIOMETRY ----- BPD 31.4mm 15w 6dHadlock OFD 38.8mm -/-Nicolaides HC 112.9mm 15w 3dHadlock Cerebellum tr 15.8mm 15w 6dNicolaides Nuchal fold 2.1mm AC 89.7mm 15w 1d 34%Hadlock Femur 16.0mm 14w 5dHadlock Humerus 16.1mm 14w 4dJeanty Weight Calculation: EFW 113g 9%Hadlock EFW (lb,oz) 0 lb 4oz EFW by Hadlock([id number]) EFW discordance 26.5% Head / Face / Neck Biometry: Parimutuel Ticket Cashier 6.7mm CM 2.5mm Fetus 1: ANATOMY ----- [...] pellucidi. Heart / Thorax 4-chamber view. 3-vessel view.2-xmiptr-rhbegqr view. sex: female. Fetus 2: ANATOMY ----- [...] Lips. Profile. Nose. Maxilla.Mandible. Heart / Thorax 8-oiukxj-xhnrlgm view. Aortic archview. Bicaval view. Ductal arch [...] discussed the option a referral to the [place] care center todiscuss the option of SLFP [...] see the patient(reviewing medical records/tests), in direct xfjg-xk-hyzd contact with the patient during the visitcounseling [...] imaging the cervix appears long and closed. Pamela Cuellar MD [facility] ORDERABLES Edited Re sult - Final from Last 3 Months Insurance [facility] Advance Directives For more information, please contact: [phone] * Full Code (Latest Code Status on File) Date Activated Date Inactivated Comments 12/20/2024 1:38 PM 12/23/2024 9:05 PM All basic an d advanced life-sustaining interventions are performed as appropriate Question Answer Comments Code status determined by: Discussion with patie nt/ legal decision maker * Full Code Date Activated Date Inactivated Comments 12/10/2024 4:50 PM 12/20/2024 1:38 PM All basic an d advanced life-sustaining interventions are performed as appropriate Question Answer Comments Code status determined by: Discussion with patie nt/ legal decision maker Care Teams Costume Director Relationship Specialty Start Date End Date No Ref-Primary, Physician PCP - General 12/04/21 Flower Amato MD [address] [place] [address] Assigned OBGYN Provider 11/22/24
--- OUTSIDE RECORDS SUMMARY | 2024-12-23 23:22 | XMS_ITS | Encounter Summary ---
Author Organization [place] Address [address] [place] [address] Care Team Providers Care Card Maker Name Role Phone No Ref-Primary, Physician Primary Care Provider Flower Amato MD Unavailable [phone] Reason for Referral * Diagnostic Imaging Ultrasound (Routine) - Pending Review Specialty Diagnoses / Procedures Referred By Contac t Referred To Contact Radiology. Diagnoses Monochorionic diamniotic twin , antepartum Procedures MFM Twins US Comprehensive F/U Jesus Harmon MD [address] [place] [address] Phone: tel: fax: Referral ID Status Reason Start Date Expiration Date V isits Requested Visits Authorized [id number] Pending Review 12/05/2024 12/05/2025 1 1 MOLD SETTER Reason for Visit * Diagnostic Imaging Ultrasound (Routine) - Pending Review Specialty Diagnoses / Procedures Referred By Contac t Referred To Contact Radiology. Diagnoses Monochorionic diamniotic twin , antepartum Procedures MFM Twins US Comprehensive F/U Jesus Harmon MD [address] [place] [address] Phone: tel: fax: Referral ID Status Reason Start Date Expiration Date V isits Requested Visits Authorized [id number] Pending Review 12/05/2024 12/05/2025 1 1 Encounter Details Date Type Department Care Team (Latest Contact Info) Description 12/10/2024 1:10 PM LENS MOLD SETTER - 12/10/2024 3:16 PM LENS MOLD SETTER Hospital Encounter [facility] [place] [address] [place] [phone] Jaren Rodriguez MD [address] [place] [address] Monochorionic diamniotic twin , antepartum Discharge Disposition: [...] in an abandoned building, in an overnight nursing home, or couch-surfing.) No 12/10/2024 Are you worried [...] your partner or ex-partner? No 12/11/2024 Comments Yes Sex and Gender Information Value Date Recorded Sex Assigned at Not on file Legal Sex Female 11:44 PM LENS MOLD SETTER Gender Identity Not on file Sexual Orientation [...] as needed for indigestion. 100 mL 12/23/2024 ferrous sulfate (FEROSUL) 325 (65 Fe) MG [...] mouth 2 times daily. 60 tablet 12/23/2024 acetaminophen (TYLENOL) 500 MG tabletIndications: Acute appendicitis [...] Comments MFM TWINS US COMPREHENSIVE F/U Routine 12/10/2024 2:29 PM LENS MOLD SETTER Monochorionic diamniotic twin , antepartum NON-STRESS TEST - HIM SCAN 12/10/2024 12:00 AM LENS MOLD SETTER documented in this encounter Results * MFM Twins US Comprehensive F/U (12/10/2024 2:29 PM LENS MOLD SETTER) Anatomical Region Laterality Modality Ultrasound 12/10/2024 1:23 PM LENS MOLD SETTER Impressions 12/10/2024 2:45 PM LENS MOLD SETTER IMPRESSION ----- Patient is here for antepartum [...] flow in a-wave. Narrative 12/10/2024 2:45 PM LENS MOLD SETTER [facility] Surveillance US ----- Pat. Name: HEATHER CHÁVEZ Study Date: 12/10/2024 1:23pm Pat. NO: [id number] Referring MD: PAMELA CUELLAR Site: Stock Patch Sawyer: Avani Ren RDMS : 1995 Age: 29 [...] MD - 12/10/2024 Surveillance ----- Pat. Name: HEATHER CHÁVEZ Study Date: 12/10/2024 1:23pm Pat. NO: [id number] Referring MD: PAMELA CUELLAR Site: Stock Patch Sawyer: Avani Ren RDMS : 1995 Age: 29 [...] shows episodes of reverse flow in a-wave. Jesus Harmon MD [facility] US ORDERABLES Edited Result - Final * Non-Stress Test - HIM Scan (12/10/2024 12:00 AM LENS MOLD SETTER) 12/10/2024 Provider Outside PROCEDURES Final Result documented in this encounter Visit Diagnoses Diagnosis Monochorionic diamniotic twin , antepartum Twin , antepartum documented in this encounter Additional Health Concerns Assessment Noted Time PHQ-9 Depression Total Score: 7 12/10/19 25 2:56 PM LENS MOLD SETTER documented as of this encounter Care Teams Card Maker Relationship Specialty Start Date End Date No Ref-Primary, Physician PCP - General 12/04/21 Flower Amato MD [address] [place] [address] Assigned OBGYN Provider 11/22/24 documented as of this encounter
--- OUTSIDE RECORDS SUMMARY | 2024-12-23 23:22 | XMS_ITS | Encounter Summary ---
Author Organization [place] Address [address] [place] [address] Care Team Providers Care Airline Ticket Agent Name Role Phone No Ref-Primary, Physician Primary Care Provider Flower Amato MD Unavailable [phone] Encounter Details Date Type Department Care Team (Latest Contact Info) Description 12/10/2024 Travel Social History Tobacco Use Types Packs/Day [...] in an abandoned building, in an overnight long term, or couch-surfing.) No 12/10/2024 Are you worried [...] on file Legal Sex Female 11:44 PM GIFT SHOP CLERK Gender Identity Not on file Sexual Orientation Not on file documented as of this encounter Plan of Treatment Not on file documented as of this encounter Visit Diagnoses Not on filedocumented in this encounter Additional Health Concerns Assessment Noted Time PHQ-9 Depression Total Score: 7 12/10/19 25 2:56 PM GIFT SHOP CLERK documented as of this encounter Care Teams Airline Ticket Agent Relationship Specialty Start Date End Date No Ref-Primary, Physician PCP - General 12/04/21 Flower Amato MD [address] [address] Assigned OBGYN Provider 11/22/24 documented as of this encounter
--- OUTSIDE RECORDS SUMMARY | 2024-12-23 23:22 | XMS_ITS | Encounter Summary ---
Author Organization [place] Address [address] [facility] [place] [address] Care Team Providers Care Bullet Casting Operator Name Role Phone No Ref-Primary, Physician Primary Care Provider Flower Amato MD Unavailable [phone] Encounter Details Date Type Department Care [...] on file Legal Sex Female 11:44 PM PEDIATRIC SPEECH LANGUAGE PATHOLOGIST Gender Identity Not on file Sexual Orientation Not on file COVID-19 Exposure Response Date Recorded In the last month, have you been in contact with someone who was confirmed or suspected to have Coronavirus / COVID-19? No / Unsure 12/08/2021 5:46 PM PEDIATRIC SPEECH LANGUAGE PATHOLOGIST documented as of this encounter Plan of Treatment Not on file documented as of this encounter Visit Diagnoses Not on filedocumented in this encounter Care Teams Bullet Casting Operator Relationship Specialty Start Date End Date No Ref-Primary, Physician PCP - General 12/04/21 Flower Amato MD [address] [facility] [address] [place] [address] Assigned OBGYN Provider 11/22/24 documented as of this encounter
--- OUTSIDE RECORDS SUMMARY | 2024-12-23 23:22 | XMS_ITS | Encounter Summary ---
Author Organization [place] Address [address] [facility] [place] [address] Care Team Providers Care Soakers Supervisor Name Role Phone No Ref-Primary, Physician Primary Care Provider Flower Amato MD Unavailable [phone] Encounter Details Date Type Department Care Team (Late st Contact Info) Description 12/10/2024 2:00 PM RELEASE MANAGER Office Visit [facility] [place] [address] [place] [address] Jaren Rodriguez MD [address] [place] [address] Poor growth affecting management of [...] in an abandoned building, in an overnight custodial, or couch-surfing.) No 12/10/2024 Are you worried [...] on file Legal Sex Female 11:44 PM RELEASE MANAGER Gender Identity Not on file Sexual Orientation Not on file documented as of this encounter Progress Notes * Jaren Rodriguez MD - 12/10/2024 2:00 PM CST Please refer to ultrasound report under 'Imaging' Studies of 'Chart Review' tabs. Jaren Rodriguez M.D. ASE MANAGER documented in this encounter Plan of Treatment Not on file documented as of this encounter Visit Diagnoses Diagnosis Poor growth affecting management of mother in second trimester, fetus 2- Primary Monochorionic diamniotic twin , antepartum Twin , antepartum documented in this encounter Additional Health Concerns Assessment Noted Time PHQ-9 Depression Total Score: 7 12/10/19 25 2:56 PM RELEASE MANAGER documented as of this encounter Care Teams Soakers Supervisor Relationship Specialty Start Date End Date No Ref-Primary, Physician PCP - General 12/04/21 Flower Amato MD [address] [address] Assigned OBGYN Provider 11/22/24 documented as of this encounter
--- OUTSIDE RECORDS SUMMARY | 2024-12-23 23:22 | XMS_ITS | Encounter Summary ---
Author Organization [place] Address [address] [place] [address] Care Team Providers Care Laundry Agent Name Role Phone No Ref-Primary, Physician Primary Care Provider Flower Amato MD Unavailable [phone] Reason for Referral * Consultation (Routine: Next available opening) - Pending Review Specialty Diagnoses / Procedures Referred By Noa lilly Referred To Contact Diagnoses Monochorionic diamniotic twin , antepartum Kenia Lyons CNM [address] [place] [address] Phone: tel: fax: Referral ID Status Reason Start Date Expiration Date V isits Requested Visits Authorized [id number] Pending Review 12/10/2024 12/10/2025 1 1 Question Answer Office Visit Type: [facility] S DRAPER Reason for Visit * Reason Comments Care OBFV- M/D twins * Consultation (Routine: Next available opening) - Pending Review Specialty Diagnoses / Procedures Referred By Noa lilly Referred To Contact Diagnoses Monochorionic diamniotic twin , antepartum Jesus Harmon MD [address] [place] [address] Phone: tel: fax: Referral ID Status Reason Start Date Expiration Date V isits Requested Visits Authorized [id number] Pending Review 12/05/2024 12/05/2025 1 1 Encounter Details Date Type Department Care Team (Latest Contact Info) Description 12/10/2024 2:15 PM DRESS DRAPER Office Visit [facility] [place] [address] [place] [address] Eloy Kenia Esther, CN [address] [place], [place] [phone] Monochorionic diamniotic twin , antepartum Social History [...] in an abandoned building, in an overnight longterm, or couch-surfing.) No 12/10/2024 Are you worried [...] on file Legal Sex Female 11:44 PM DRESS DRAPER Gender Identity Not on file Sexual Orientation Not on file documented as of this encounter Last Filed Vital Signs Vital Sign Reading Time Taken Comments Blood Pressure 107/70 12/10/2024 3:07 PM DRESS DRAPER Pulse 82 12/10/2024 3:07 PM DRESS DRAPER Temperature - - Respiratory Rate 18 12/10/2024 3:07 PM DRESS DRAPER Oxygen Saturation 100% 12/10/2024 3:07 PM DRESS DRAPER RA Inhaled Oxygen Concentration - - Weight 72.6 kg (160 lb) 12/10/2024 3:07 PM DRESS DRAPER Height - - Body Mass Index 26.63 12/04/2021 10:10 PM DRESS DRAPER documented in this encounter Patient Instructions * Patient Instructions* Beverly Mccrary RN - 12/10/2024 2:15 PM DRESS DRAPER Images from the original note were not included. Weeks 22 to 26 of Your : Care Instructions Your baby's lungs are getting ready for breathing. Your baby may respond to your voice. Your baby likely turns less, and kicks or jerks more. Jerking may mean that your baby has hiccups. Think about taking childbirth classes. And start to think about whether you want to have pain medicine during labor. At your next doctor visit, you may be tested for anemia and for high blood sugar that first occurs during (gestational diabetes). These conditions can cause problems for you and your baby. To ease discomfort, such as back pain Change your position often. Try not to sit or stand for too long. Get some exercise. Things like walking or stretching may help. Try using a heating pad or cold pack. To ease or reduce swelling in your feet, ankles, hands, and fingers Take off your rings. Avoid high-sodium foods, such as potato chips. Prop up your feet, and sleep with pillows under your feet. Try to avoid standing for long periods of time. Do not wear tight shoes. Wear support stockings. Kegel exercises to prevent urine from leaking Squeeze your muscles as if you were trying not to pass gas. Your belly, legs, and buttocks shouldn't move. Hold the squeeze for 3 seconds, then relax for 5 to 10 seconds. Add 1 second each week until you can squeeze for 10 seconds. Repeat the exercise 10 times a session. Do 3 to 8 sessions a day. If these exercises cause you pain, stop doing them and talk with your doctor. Follow-up care is a nixon part of your treatment and safety. Be sure to make and go to all appointments, and call your doctor if you are having problems. It's also a good idea to know your test resultsand keep a list of the medicines you take. Where can you learn more? Go to https://www.Spor.eZelleron/patiented Enter G264 in the search box to learn more about Weeks 22 to 26 of Your : Care Instructions. Current as of: February 28, 2024 Content Version: 14.3 ?? 2023 [employer]. Care instructions adapted under license by your healthcare professional. If you have questions about a medical condition or this instruction, always ask your healthcare professional. [employer] disclaims any warranty or liability for your use of this information. Learning About Screening for Gestational Diabetes What is gestational diabetes screening? Screening for gestational diabetes is a way to look for high blood sugar during . You drink some very sweet liquid. Then you have a blood test to see how your body uses sugar (glucose). How is gestational diabetes screening done? Screening for gestational diabetes may be done in a couple of ways. Two-part screening. Part one (glucose challenge test): A blood sample is taken after you drink a liquid that contains sugar (glucose). You don't need to stop eating or drinking before this test. If the test shows that you don't have a lot of sugar in your blood, you don't have gestational diabetes. Part two (oral glucose tolerance test, or OGTT): If the first test shows a lot of sugar in your blood, then you may have an OGTT. You can't eat or drink for at least 8 hours before this test. A bloodsample is taken, then you drink a sweet liquid. You have more blood tests after 1 to 3 hours. If the OGTT shows that you have a lot of sugar in your blood, you may have gestational diabetes. One-part screening. Sometimes doctors use the OGTT on its own. If the test shows that you don't have a lot of sugar in your blood, you don't have gestational diabetes. If you do have a lot of sugar in your blood, you may have the condition. What are the risks of screening? Your blood glucose level may drop very low toward the end of the test. If this happens, you may feel weak, hungry, and restless. Tell your doctor if you have these symptoms. The test usually will be stopped. You may vomit after drinking the sweet liquid. If this happens, you may need to take the test at a later time. Your doctor may do more glucose tests at other times during your . Follow-up care is a nixon part of your treatment and safety. Be sure to make and go to all appointments, and call your doctor if you are having problems. It's also a good idea to know your test resultsand keep a list of the medicines you take. Where can you learn more? Go to https://www.Spor.net/patiented Enter A472 in the search box to learn more about Learning About Screening for Gestational Diabetes. Current as of: February 28, 2024 Content Version: 14.3 ?? 2023 [employer]. Care instructions adapted under license by your healthcare professional. If you have questions about a medical condition or this instruction, always ask your healthcare professional. [employer] disclaims any warranty or liability for your use of this information. You have been provided the My Labor and Wishes document. Please review at home and bring to your next visit. Bring this sheet to the hospital for your . Give copies to your care team members and support person. Additional copies can be found here: [email or web address] S DRAPER documented in this encounter Progress Notes * Kenia Lyons, ROSALINA - 12/10/2024 2:[address] Harmon in with patient and partner to review US findings and is recommending admission to thespital for further monitoring, BMZ administration, and NICU consult. Patient not seen for OB visit at this time. No charge. Kenia Lyons CNM on 12/10/2024 at 3:14 PM S DRAPER documented in this encounter Nursing Notes * Beverly Mccrary, MAGUI - 12/10/2024 2:15 PM CST Heather seen in clinic today for TTTS/OB visit at 23w1d gestation. VSS. Pt reports positive movement x 2, see flowsheet. US evaluated per Dr. Rodriguez, see note for details. Pt evaluated for pretermlabor, preeclampsia, vaginal bleeding, infection, wellbeing without concerns. Pt denies bleeding/lof/change in vaginal discharge/contractions/headache/vision changes/chest pain/SOB/edema. Pt notified to review new pt education in AVS, verbally reviewed highlights. SBAR given to Alice Lyons CNM who met with pt and discussed POC. [facility] and surveillance r/t US findings. Pt discharged stable and ambulatory to [facility]. Beverly Mccrary, MAGUI S DRAPER documented in this encounter Plan of Treatment Scheduled Referrals Name Type Priority Associated Diagnoses Orde r Schedule MFM Office Visit - [facility] Referral Routine: Next available opening Monochorionic diamniotic twin , antepartum Expected: 12/10/2024 (Approximate), Expires: 12/10/2025 documented as of this encounter Visit Diagnoses Diagnosis Monochorionic diamniotic twin , antepartum Twin , antepartum documented in this encounter Additional Health Concerns Assessment Noted Time PHQ-9 Depression Total Score: 7 12/10/19 25 2:56 PM DRESS DRAPER documented as of this encounter Care Teams Laundry Agent Relationship Specialty Start Date End Date No Ref-Primary, Physician PCP - General 12/04/21 Flower Amato MD [address] [address] Assigned OBGYN Provider 11/22/24 documented as of this encounter
--- OUTSIDE RECORDS SUMMARY | 2024-12-23 23:22 | XMS_ITS | Data Portability ---
Author Organization [place] - [facility], [employer] - [employer] Address [address] [facility] [address] [place] [address] Assessment Encounter Date Assessment Date Assessment LastModified [...] Organization Details Recorded Time Low back pain 325881431 Active 2023 Moise Mensah DC [address] [facility], [place], [address], [facility] 4 18:46:52 Thoracic segmental dysfunction 374150078 Active 2023 Moise Mensah DC [address] [facility], [place], [address], [facility] 4 18:46:52 Lumbar segmental dysfunction 756763626 Active 2023 Moise Mensah DC [address] [facility], [place], [address], [facility] 4 18:46:52 Somatic dysfunction of sacral spine 021754169 Active 2023 Moise Mensah DC [address] [facility], [place], [address], [facility] 4 18:46:52 Neck pain 56934671 Active 2023 Moise Mensah DC [address] [facility], [facility] [place], [address], [facility] 4 18:46:54 Cervical segmental dysfunction 874783031 Active 2023 Moise Guzman [place] [address] [facility], [facility] [place], [address], [facility] 4 18:46:54 Problem Notes None recorded. Procedures Surgical History Date Name Laterality Status Provider Name and Address Organization Details Recorded Time 5 94951: Spinal manipulation , 3 to 4 regions completed Gerry Le, [place] [address] [facility], [place], [address], [facility] 12/04/2024 11:22:55 5 [address]3480: Spinal manipulation , 3 to 4 regions completed Gerry Le DC [address] [facility], [place], [address], [facility] 11/07/2024 12:03:29 4 [address]: Spinal manipulation , 3 to 4 regions completed Moise Mensah DC [address] [facility], [place], [address], [facility] 10/30/2024 18:49:30 Imaging Results None [...] SNOMED-CT Code Diagnosis ICD10 Code Diagnosis Note [id number] Moise Mensah DC [facility] & [address] [place] [address] 10/30/2024 16:03:14 10/30/2024 19:26:07 Lumbar segmental dysfunction 860597725 M99.03 Low back pain 140420986 M54.50 Somatic dy sfunction of sacral spine 879020716 M99.04 Thoracic s egmental dysfunction 105643206 M99.02 Cervical s egmental dysfunction 154121116 M99.01 Neck pain 94199101 M54.2 [id number] [place] [facility] [address] [place] [address] 11/07/2024 10:39:00 11/07/2024 12:17:20 Lumbar segmental dysfunction 556216111 M99.03 Low back pain 502937494 M54.50 Somatic dy sfunction of sacral spine 189961587 M99.04 Thoracic s egmental dysfunction 274388927 M99.02 [id number] Gerry Le DC [facility] & [address] [place] [address] 11/29/2024 17:27:32 12/11/2024 10:43:36 Cervical segmental dysfunction 198531073 M99.01 Thoracic s egmental dysfunction 939137646 M99.02 Neck pain 63163377 M54.2 Somatic dy sfunction of sacral spine 963737174 M99.04 Health Concerns Section Related Observation LastModified by Organization Detai ls LastModified Time None Recorded Concern Status LastModified by Organization Details LastModified Time None Recorded Advance Directives Directive None Recorded Payers Encounter Date Sequence Insurance Name Policy Number Policy Samuel Covered Member ID Samuel Member ID Guarantor Name 10/30/2024 1 *SELF PAY* Em matthew Kopylov 11/07/2024 [facility] Heather Mariev [id number] Heather Wongpylov 11/29/2024 1 [employer] - INDIVIDUAL AND FAMILY (HMO) [id number] Heather Wongpylov [id number] Heather Wongpylov Notes Date Note Type Note [...] carrying; twisting; bending/squatting Alleviating Factors:lying down; rest; healthcare customer service 17 weeks with twins and one is not getting as much blood supply so plan to do 22 to 28 weeks going for later. Neck and upper back pain and tightness with stress and some lower back pelvis pain. Moise Mensah DC [address] [facility], [place], [address], [facility] 10/30/2024 18:50:02 11/07/2024 text/html HPI - Lumbar SpineReported bypatient.Location: left; With radiation to knee Quality:aching Severity:not changing Timing:morning Aggravating Factors:standing Alleviating Factors:ice Gerry Le DC [address] [facility], [place], [address], [facility] 11/07/2024 12:03:52 11/29/2024 text/html HPI - Cervical SpineReported bypatient.Location: left Quality:aching Severity:moderate Duration:2 weeks Timing:gradual Alleviating Factors:ice Aggravating Factors:sitting Associated Symptoms:no numbness/tingling Gerry Jeanmarie Rey, DC [address] [facility], [place], [address], [place] - [facility] 12/04/2024 11:23:37 OBGyn Episode No OBEpisode recorded.
--- OUTSIDE RECORDS SUMMARY | 2024-12-23 23:22 | XMS_ITS | Clinical Summary ---
Author Organization [facility] [employer] [facility] Address [address] [place] [address] Care Team Providers Care Mascara Molder Name Role Phone Merline Duffy MD Unavailable [phone] Amina Gardner MD Primary Care Provider Allergies [...] 40 weeks. Reason for need: separation from infant. Length of need: 12 months 1 Device [...] Vag 7 9 KOPYL OV,BB HEATHER Delivery Location:[facility]) Last Filed Vital Signs [...] ve Non-Reacti ve 04/15/2019 10:47 PM CDT [facility] Blood BLOOD SPECIMEN / Unknown Add On / Unknown 04/15/2019 10:29 AM CDT 04/15/2019 10:22 PM CDT us Amina Gardner MD SEND OUTS Final Result [facility] [address] [place] [address] * Patient Source ANTI HCV (04/15/2019 10:29 AM CDT) HEPATITIS C ANTIBODY Non-React pamella Non-React pamella 04/16/2019 5:11 PM CDT [facility] Comment:Antibodies to HCV no t detected; does not exclude the possibility of exposure to HCV. Blood BLOOD SPECIMEN / Unknown Venipuncture / Unknown 04/15/2019 10:29 AM CDT 04/15/2019 10:35 AM CDT us Amina Gardner MD SEND OUTS Final Result [facility] [address] [place] [address], [place] from Last 3 Months or Most Recently Relevant to Health Maintenance Insurance [facility] SHARED SERVICES [employer] INS Advance Directives * Full Code (Latest Code Status on File) Date Activated Date Inactivated Comments 04/15/2019 9:55 PM 04/17/2019 11:28 PM Question Answer Comments Code Status Discussion: Not Discussed Care Teams Mascara Molder Relationship Specialty Start Date End Date Amina Gardner MD [address] [facility] [address] [place] [address] PCP - General Family Practice 12/08/18 Merline Duffy MD [address] [facility] [address] [place] [address] Family Practice 03/22/18
--- OUTSIDE RECORDS SUMMARY | 2024-12-23 23:22 | XMS_ITS | Clinical Summary ---
Author Organization [facility] Address [address] [place] [address] Care Team Providers Care Sawmilling Operator Name Role Phone Arslan Mckoy MD Primary Care Provider Ladonna calderon Source Comments You are receiving this document as you are listed as the primary care provider,follow-up provider, or the patient has been referred to you for consultation.This is in compliance with the Medicare and[facility] EHR Incentive Program,which states Providers who transition their patient to another setting of careor provider of care or refers their patient to another provider of care shouldprovide summary care record for each transition of care or referral. [facility] Allergies No known active allergies Medications Xxrofwkm-WyHke-H A-DHA w/o A ( + DHA OR) Active [...] at Not on file Legal Sex Female 9:03 AM CDT Gender Identity Not on file Sexual Orientation Not on file Occupation Industry Job Start Date Job End Date Not on file Not on file Not on file Not on file Last Filed Vital Signs Vital Sign Reading Time Taken Comments Blood Pressure 117/62 10/05/2018 10:40 AM [employer] Pulse 76 10/05/2018 10:40 AM [employer] Temperature - - Respiratory Rate - - Oxygen Saturation - - Inhaled Oxygen Concentration - - Weight 73.5 kg (162 lb) 10/05/2018 10:40 AM [employer] Height 166.4 cm (5' 5.5) 10/05/2018 10:40 AM CS T Body Mass Index 26.55 10/05/2018 10:40 AM [employer] Plan of Treatment Health Maintenance Due Date Last Done Comments Cervical Cancer Screening Due 1994 Hep C Screening (Preventive Services) 1994 Adult Preventive Visit 2012 DTaP/Tdap/Td (1 - Tdap) 2013 HepB (1) 2013 COVID-19 Vaccine (2023-2 5 season) 2024 Influenza (#1) 2024 Zoster/Shingles [...] on patient's age to complete this topic Meningococcal B Aged Out No longer el igible based on patient's age to complete this topic Pneumococcal Aged Out No longer eligi ble based on patient's age to complete this topic Procedures Procedure Name Priority Date/Time Associated Diagnosis Comments HIV-1 P24 AND HIV-1/HIV-2 ANTIBODIES Routine 09/07/2018 12:05 PM [employer] Screening examination for venereal disease CHLAMYDIA & GC, URINE (14 YEARS AND OLDER) Routine 09/07/2018 11:59 AM [employer] Screening examination for venereal disease from Last 3 Months or Most Recently Relevant to Health Maintenance Results * LAB HIV-1 p24 AND HIV-1/HIV-2 ANTIBODIES (09/07/2018 12:05 PM [employer]) Pathologist [facility] HIV-1 p24 Ag and HIV-1/HIV-2 Ab Nonreactive Nonreactive PN SOFT 09/07/2018 12:0 5 PM [employer] 09/07/2018 12:16 PM [employer] Narrative PN SOFT - 09/07/2018 1:26 PM [employer] Performed at [address] [address] CLIA number [id number] us Angela Lyons APRN, CNM LAB_1 Final Result Performing Organization Address [facility] Co de Phone Number SOFT [address] [place] [id number] * CHLAMYDIA & GC, URINE (09/07/2018 11:59 AM [employer]) Pathologist [facility] Urine Chlamydia STD Negative Negative PN SOFT Comment: Test Performed by Specification Manager Mediated Amplification Results obtained from this source are not FDA approved. CLIA Number [id number] Urine N. gonnorrhoeae STD Negative Negative PN SOFT Comment: Test Performed by Specification Manager Mediated Amplification Results obtained from this source are not FDA approved. Performed at [facility], [address] [place] [address] CLIA Number [id number] 09/07/2018 11:5 9 AM [employer] 09/07/2018 12:17 PM [employer] us Angela Lyons APRN, ROSALINA LAB_1 Final Result Performing Organization Address [facility]/ZIP Co de Phone Number SOFT [address] [place] [id number] from Last 3 Months or Most Recently Relevant to Health Maintenance Insurance [facility] [place] [address] Care Teams Sawmilling Operator Relationship Specialty Start Date End Date Arslan Mckoy MD PCP - General Family Practice 09/09/17
--- OUTSIDE RECORDS SUMMARY | 2024-12-23 23:22 | XMS_ITS | Encounter Summary ---
Author Organization [facility] Address [address] [place] [address]. [place] [address] Care Team Providers Care Wheel Grinder Name Role Phone No Ref-Primary, Physician Primary Care Provider Flower Amato MD Unavailable [phone] Reason for Visit * Auth/Cert (Routine) Specialty Diagnoses / Procedures Referred By Controbert t Referred To Contact supervisor cab Diagnoses Monochorionic diamniotic twin , antepartum Maternity*Rudi 04/07/25/mono/di twins [facility] [address] [place] [id number] Phone: tel: Referral ID Status Reason Start Date Expiration Date Visits Re quested Visits Authorized [id number] 1 1 Encounter Details Date Type Department Care Team (Late st Contact Info) Description 12/20/2024 10:45 AM HORSE RACING MANAGER Anesthesia Event [facility] [address] [phone] Eneida Sanon MD [address] [place] [id number] Evangelina Helm MD [address] [facility], [facility] [address] [place] [address] Anesthesia Record Procedure Summary Procedure Name Responsible Anesthesiologist Anesthesia Start Time Anesthesia Stop Time section (Abdomen) Eneida Sanon MD 12/20/24 1045 12/20/24 1210 Events Date Time Event Comment 12/20/2024 1045 An Start Anesthesia Star t is defined as when the anesthesia provider assumed care, began anesthesia prep, remained continuously present with the patient, and excludes all time for performing the pre-anesthesia evaluation. The Pre-Anesthesia Evaluation was completed before Anesthesia Start. 1053 An Start Data 1053 AN REASSESS I attest that I have identified and re-evaluated the patient immediately before the induction of anesthesia and I am satisfied that the anesthetic plan is suitable for the patient's condition and procedure. The first vital signs recorded are pre-induction. Evangelina Helm MD 1055 An Induction 1056 An Intubation 1056 Anesthesia Ready for Procedu re 1056 Uterine Incision 1056 Baby Delivered 1057 Baby Delivered 1059 Quick Note OG 1103 Placenta Delivered 1152 AN Extubation All extubation criteria met prior to removal. 1155 an stop data 1210 An Stop Electronically signed by Katerina Hardy MD on December 20, 2024 12:10 PM Meds Name Total midazolam 1 mg/mL 2 mg fentaNYL 50 mcg/mL 100 mcg propofol 10 mg/mL 320 mg succinylcholine 20 mg/mL 120 mg dexamethasone (DECADRON) 4 mg/mL 4 mg ondansetron 2 mg/mL 4 mg oxytocin 30 units in 500 mL 0.9% NaCl in fusion 470 mL methylergonovine 0.2 mg/mL 200 mcg magnesium sulfate infusion Cannot be wilbert culated propofol drip mcg/kg/min 302.4 mg phenylephrine 0.1 mg/ml infusion (mcg/mi n) 4,800 mcg ceFAZolin (ANCEF) IV solution 2g/20 mL s yringe 2 g ketorolac 30 mg/mL 30 mg HYDROmorphone (DILAUDID) injection 4 mg/ mL 1 mg Bupivacaine 0.25% PF (Infiltration) 20 m L Bupivacaine liposome (Exparel) 1.3% LA i nj susp (Infiltration) 20 mL LR 300 mL * Agents Name O2 N2O Air Exp Sevoflurane Exp Isoflurane Exp Desflurane Ins Sevoflurane Ins Isoflurane Ins Desflurane * Blood No blood administrations on file. Lines, Drains, and Airways Type Details Placement Removal Incision/Surgical Site 12/04/21; 2315; Bilateral; Abdomen; x3 trocar incisions (exofin) 12/04/21 231 by Zane Joshi, MAGUI Incision/Surgical Site Incision; 5; 1122; Lower, Midline; Abdomen 12/20/24 1122 by Kaia Spence RN Extended Dwell Peripheral IV 12/13/24; 2314; Other (Comment) (18G); 6 cm; B Vega; Left; Lower forearm; Cephalic vein; Chlorhexidine, Skin Barrier; Vapocoolant spray (vibration); 1; aseptic; Tolerated well; [id number] 12/13/24 231 by Sharyn Cervantes RN 12/22/242056 by Nicole Pinon RN Urinary Drain 12/20/24; 1051; Urethral Catheter; Surgical procedure; 14 fr; Nursing driven removal protocol, POD 1 12/20/24 1051 by Kaia Spence RN 12/20/24 2300 by Denita Farrar RN ETT Placement Date: 12/20/24; Placement Time: 105 (created via procedure documentation); Mask Ventilation: 0; Induction Type: RSI; Ease of Intubation: Easy; Technique: Video laryngoscopy; Tube Size: 6.5 mm; VL Blade Size: MAC 3; Grade View: 1; Adjucts: Stylet; Placement Person: Resident; Attempts: 1 12/20/24 1056 by Evangelina Helm MD 12/20/24 1152 by Evangelina Helm MD documented in this encounter Social History Tobacco Use Types Packs/Day Years [...] in an abandoned building, in an overnight retirement, or couch-surfing.) No 12/10/2024 Are you worried [...] on file Legal Sex Female 11:44 PM HORSE RACING MANAGER Gender Identity Not on file Sexual Orientation Not on file documented as of this encounter OR Notes * Anesthesia Postprocedure Evaluation - Eneida Sanon MD - 12/20/2024 12:30 PM CST Patient: Heather Chávez Procedure: Procedure(s): section Anesthesia Type: No value filed. Note: Disposition: Admission; Inpatient Postop Pain Control: Uneventful Sign Out: Well controlled pain PONV: No Neuro/Psych: Uneventful Sign Out: Acceptable/Baseline neuro status Airway/Respiratory: Uneventful Sign Out: Acceptable/Baseline resp. status CV/Hemodynamics: Uneventful Sign Out: Acceptable CV status; No obvious hypovolemia; No obvious fluid overload Other NRE: NONE DID A NON-ROUTINE EVENT OCCUR? No Last vitals: Vitals Value Taken Time BP 107/69 12/20/24 1216 Temp 36.2 ??C (97.2 ??F) 12/20/24 1200 Pulse 80 12/20/24 1230 Resp 17 12/20/24 1230 SpO2 100 % 12/20/24 1230 Vitals shown include unfiled device data. Electronically Signed By: Eneida Sanon MD December 20, 2024 12:30 PM E RACING MANAGER * Anesthesia Postprocedure Evaluation - Eneida Sanon MD - 12/20/2024 12:30 PM CST Patient: Heather Chávez Procedure: Procedure(s): section Anesthesia Type: No value filed. Note: Anesthesia Post Evaluation Last vitals: Vitals Value Taken Time BP 107/69 12/20/24 1216 Temp 36.2 ??C (97.2 ??F) 12/20/24 1200 Pulse 80 12/20/24 1229 Resp 17 12/20/24 1229 SpO2 100 % 12/20/24 1229 Vitals shown include unfiled device data. Electronically Signed By: Eneida Sanon MD December 20, 2024 12:30 PM E RACING MANAGER * Anesthesia Procedure Notes - Evangelina Helm MD - 12/20/2024 11:44 AM HORSE RACING MANAGER Associated Order(s): Peripheral/Paravertebral Block TAP Procedure Note Pre-Procedure Staff - Anesthesiologist: [...] 20 mL - 12/20/2024 11:44:00 AM FOR [facility] ([facility]) ONLY: Pain Team Contact information: please page the Pain Team Via [employer] Pain. During daytime hours, please page the attending first. At night please page the resident first. E RACING MANAGER * Anesthesia Procedure Notes - Evangelina Helm MD - 12/20/2024 11:14 AM HORSE RACING MANAGER Associated Order(s): Airway Airway Patient location during procedure: OR Procedure [...] Administered Medication Administration Time: 12/20/2024 10:56 AM E RACING MANAGER * Anesthesia Preprocedure Evaluation - Eneida Sanon MD - 12/11/2024 9:09 PM CST Anesthesia Pre-Procedure Evaluation Patient: Heather Chávez : 1995 Procedure : Past Medical History: Diagnosis Date Uncomplicated asthma exercise induced asthma Past Surgical History: Procedure Laterality Date LAPAROSCOPIC APPENDECTOMY N/A 12/04/2021 Procedure: APPENDECTOMY, LAPAROSCOPIC; Surgeon: Marah Ramirez MD; Location: [facility] OR No Known Allergies Social History Tobacco Use Smoking status: Never Smokeless tobacco: Never Substance Use Topics Alcohol use: Never Wt Readings from Last 1 Encounters: 12/10/24 72.6 kg (160 lb) Anesthesia Evaluation Pt has had prior anesthetic. Type: General. No history of anesthetic complications ROS/MED HX ENT/Pulmonary: (+) asthma Neurologic: Cardiovascular: METS/Exercise Tolerance: Hematologic: Musculoskeletal: GI/Hepatic: (+) GERD, Renal/Genitourinary: Endo: Psychiatric/Substance Use: Infectious Disease: Malignancy: Other: (+) , ,,twin IUP Physical Exam Airway Mallampati: II TM distance: > 3 FB Neck ROM: full Mouth opening: > 3 cm Respiratory Devices and Support Dental Cardiovascular Pulmonary OUTSIDE LABS: CBC: Lab Results Component Value Date WBC 5.7 12/10/2024 WBC 5.3 12/08/2021 HGB 10.0 (L) 12/10/2024 HGB 13.5 12/08/2021 HCT 32.4 (L) 12/10/2024 HCT 42.3 12/08/2021 PLT 220 12/10/2024 PLT 204 12/08/2021 BMP: Lab Results Component Value Date NA 136 12/10/2024 NA 140 12/08/2021 POTASSIUM 3.9 12/10/2024 POTASSIUM 3.5 12/08/2021 CHLORIDE 104 12/10/2024 CHLORIDE 107 12/08/2021 CO2 21 (L) 12/10/2024 CO2 29 12/08/2021 BUN 8.4 12/10/2024 BUN 6 (L) 12/08/2021 CR 0.51 12/10/2024 CR 0.58 12/08/2021 GLC 79 12/10/2024 GLC 103 (H) 12/08/2021 COAGS: No results found for: PTT, INR, FIBR POC: Lab Results Component Value Date HCGS Negative 12/04/2021 HEPATIC: Lab Results Component Value Date ALBUMIN 3.5 12/10/2024 PROTTOTAL 6.5 12/10/2024 ALT 16 12/10/2024 AST 21 12/10/2024 ALKPHOS 76 12/10/2024 BILITOTAL 0.3 12/10/2024 OTHER: Lab Results Component Value Date LACT 0.9 12/08/2021 WILBERT 8.9 12/10/2024 Anesthesia Plan ASA Status: 2, emergent NPO Status: ELEVATED Aspiration Risk/Unknown Consents Postoperative Care Comments: Evangelina Helm MD I have reviewed the pertinent notes and labs in the chart from the past 30 days and (re)examined the patient. Any updates or changes from those notes are reflected in this note. Clinically Significant Risk Factors # Asthma: noted on problem list E RACING MANAGER E RACING MANAGER documented in this encounter Miscellaneous Notes * Anesthesia Care Transfer Note - Eneida Sanon MD - 12/20/2024 12:31 PM HORSE RACING MANAGER Patient: Heather Chávez Procedure: Procedure(s): section Diagnosis: * No pre-op diagnosis entered * Diagnosis Additional Information: No value filed. Anesthesia Type: No value filed. Note: Oropharynx: oropharynx clear of all foreign objects Level of Consciousness: drowsy Oxygen Supplementation: face mask Independent Airway: airway patency satisfactory and stable Dentition: dentition unchanged Vital Signs Stable: post-procedure vital signs reviewed and stable Report to RN Given: handoff report given Patient transferred to: PACU Handoff Report: Identifed the Patient, Identified the Reponsible Provider, Reviewed the pertinent medical history, Discussed the surgical course, Reviewed Intra-OP anesthesia mangement and issues during anesthesia, Set expectations for post-procedure period and Allowed opportunity for questions andacknowledgement of understanding Vitals: Vitals Value Taken Time BP 107/69 12/20/24 1216 Temp 36.2 ??C (97.2 ??F) 12/20/24 1200 Pulse 80 12/20/24 1230 Resp 17 12/20/24 1230 SpO2 100 % 12/20/24 1230 Vitals shown include unfiled device data. Electronically Signed By: Eneida Sanon MD December 20, 2024 12:31 PM E RACING MANAGER documented in this encounter Plan of Treatment Not on file documented as of this encounter Procedures Procedure Name Priority Date/Time Associated Diagnosis Comments ANE PERIPHERAL/PARAVETEB RAL BLOCK Routine 12/20/2024 11:44 AM HORSE RACING MANAGER ANE AIRWAY ETT PERFORMABLE Routine 12/20/2024 10:56 AM HORSE RACING MANAGER documented in this encounter Results * Peripheral/Paravertebral Block (12/20/2024 11:44 AM HORSE RACING MANAGER) Narrative Evangelina Helm MD - 12/20/2024 11:44 AM HORSE RACING MANAGER Evangelina Helm MD 12/20/2024 11:44 AM TAP [...] 20 mL - 12/20/2024 11:44:00 AM FOR [facility]) ONLY: Pain Team Contact information: please page the Pain Team Via [employer]. Search Pain. During daytime hours, please page the attending first. At night please page the resident first. Eneida Sanon MD [place] ANESTHESIA Final Result * ANE AIRWAY ETT PERFORMABLE (12/20/2024 10:56 AM HORSE RACING MANAGER) Narrative Evangelina Helm MD - 12/20/2024 10:56 AM HORSE RACING MANAGER Evangelina Helm MD 12/20/2024 11:14 AM Airway [...] Time: 12/20/2024 10:56 AM Eneida Sanon MD [place] ANESTHESIA Final Result documented in this encounter Visit Diagnoses Not on filedocumented in this encounter Administered Medications Inactive Administered Medications - up to 3 most recent administrations Medication Order MAR Action Action Date Dose Rate Site Bupivacaine 0.25% PF (Infiltration) Infiltration, ONCE PRN WITHIN 24 HRS, Starting on Yarelis 12/20/24 at 1144, For 1 dose, Anesthesia Intra-op $Given 12/20/2024 11:44 AM HORSE RACING MANAGER 20 mLs BUPivacaine liposome (EXPAREL) 1.3 % LA inj susp Infiltration, ONCE PRN WITHIN 24 HRS, Starting on Yarelis 12/20/24 at 1144, For 1 dose, Anesthesia Intra-op $Given 12/20/2024 11:44 AM HORSE RACING MANAGER 20 mLs ceFAZolin Sodium (ANCEF) injection Routine, Intravenous, PRN, Starting on Yarelis 12/20/24 at 1100, Anesthesia Intra-op $Given 12/20/2024 11:00 AM HORSE RACING MANAGER 2 g dexAMETHasone (DECADRON) injection Intravenous, PRN, Administer over 1 Minutes, Starting on Yarelis 12/20/24 at 1116, Anesthesia Intra-op $Given 12/20/2024 11:16 AM HORSE RACING MANAGER 4 mg fentaNYL (PF) (SUBLIMAZE) injection Intravenous, PRN, Administer over 3-5 Minutes, Starting on Yarelis 12/20/24 at 1059, Anesthesia Intra-op $Given 12/20/2024 10:59 AM HORSE RACING MANAGER 100 mcg HYDROmorphone (DILAUDID) injection Intravenous, PRN, Starting on Yarelis 12/20/24 at 1132, Anesthesia Intra-op $Given 12/20/2024 11:32 AM HORSE RACING MANAGER 1 mg ketorolac (TORADOL) injection Intravenous, PRN, Administer over 2 Minutes, Starting on Yarelis 12/20/24 at 1124, Anesthesia Intra-op $Given 12/20/2024 11:24 AM HORSE RACING MANAGER 30 mg lactated ringers infusion Intravenous, CONTINUOUS PRN, Anesthesia Intra-op, Starting on Yarelis 12/20/24 at 1055, Until Yarelis 12/20/24 at 1210 $New Bag 12/20/2024 10:55 AM HORSE RACING MANAGER methylergonovine (METHERGINE) injection Intramuscular, PRN, Starting on Yarelis 12/20/24 at 1104, Anesthesia Intra-op $Given 12/20/2024 11:04 AM HORSE RACING MANAGER 200 mcg midazolam (VERSED) injection Intravenous, Administer over 2 Minutes, PRN, Starting on Yarelis 12/20/24 at 1059, Anesthesia Intra-op $Given 12/20/2024 10:59 AM HORSE RACING MANAGER 2 mg ondansetron (ZOFRAN) injection Intravenous, PRN, Administer over 2-5 Minutes, Starting on Yarelis 12/20/24 at 1116, Anesthesia Intra-op $Given 12/20/2024 11:16 AM HORSE RACING MANAGER 4 mg oxytocin (PITOCIN) 30 units in 500 mL 0.9% NaCl infusion Intravenous, CONTINUOUS PRN, Starting on Yarelis 12/20/24 at 1057, Anesthesia Intra-op Rate/Dose Change 12/20/2024 10:59 AM HORSE RACING MANAGER 600 mL/hr 600 mL/hr $New Bag 12/20/2024 10:57 AM HORSE RACING MANAGER 300 mL/hr 300 mL/hr phenylephrine (ALVIN-SYNEPHRINE) injection Intravenous, CONTINUOUS PRN, Starting on Yarelis 12/20/24 at 1101, Anesthesia Intra-op Rate/Dose Change 12/20/2024 11:29 AM HORSE RACING MANAGER 50 mcg/min 30 mL/hr Rate/Dose Change 12/20/2024 11:05 AM HORSE RACING MANAGER 150 mcg/min 90 mL /hr $New Bag 12/20/2024 11:01 AM HORSE RACING MANAGER 100 mcg/min 60 mL/hr propofol (DIPRIVAN) infusion Intravenous, CONTINUOUS PRN, Starting on Yarelis 12/20/24 at 1059, Anesthesia Intra-op $New Bag 12/20/2024 10:59 AM HORSE RACING MANAGER 150 mcg/kg/min 64.8 mL/hr propofol (DIPRIVAN) injection 10 mg/mL vial Intravenous, PRN, Starting on Yarelis 12/20/24 at 1101, Anesthesia Intra-op $Given 12/20/2024 11:37 AM HORSE RACING MANAGER 70 mg $Given 12/20/2024 11:36 AM HORSE RACING MANAGER 50 mg $Given 12/20/2024 11:01 AM HORSE RACING MANAGER 200 mg succinylcholine (ANECTINE) injection Intravenous, PRN, Starting on Yarelis 12/20/24 at 1101, Anesthesia Intra-op $Given 12/20/2024 11:01 AM HORSE RACING MANAGER 120 mg documented in this encounter Additional Health Concerns Assessment Noted Time PHQ-9 Depression Total Score: 7 12/10/19 2:56 PM HORSE RACING MANAGER documented as of this encounter Care Teams Wheel Grinder Relationship Specialty Start Date End Date No Ref-Primary, Physician PCP - General 12/04/21 Flower Amato MD [address] [facility] [address] [place] [address] Assigned OBGYN Provider 11/22/24 documented as of this encounter
--- OUTSIDE RECORDS SUMMARY | 2024-12-23 23:22 | XMS_ITS | Encounter Summary ---
Author Organization [place] Address [address] [facility] 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 Diagnoses Monochorionic diamniotic twin , antepartum Maternity*Rudi 04/07/25/mono/di twins [facility] [address] [place], [place] [address] [address] Phone: tel: Referral ID Status Reason Start Date Expiration Date Visits Re quested Visits Authorized [id number] 1 1 Encounter Details Date Type Department Care Team (Late st Contact Info) Description 12/20/2024 10:50 AM REFUSE AND RECYCLING WORKER - 12/20/2024 12:50 PM REFUSE AND RECYCLING WORKER Surgery [facility] [address] [place] [id number] Pennie Frank MD [address] [facility] [address] [place] [address] section Surgery Details Date/Time Status Location OR Service Patient Class Case Class Case Type Trauma Case? 12/20/2024 10:50 AM Posted UR L+D UR Z LD 02 Obstetrics Inpatient NEST 1 - Emergent (Immediate) Panel 1 Procedure LRB Anes Op Region Wound Class Comments section N/A Spinal Abdomen II-Clean Cont aminated Surgeon Surgeon Role Service Panel Joceline Grant MD Assisting Obstetrics 1 Pennie Frank MD Primary Obstetrics 1 documented in this encounter Social History Tobacco [...] in an abandoned building, in an overnight half-way, or couch-surfing.) No 12/10/2024 Are you worried [...] on file Legal Sex Female 11:44 PM REFUSE AND RECYCLING WORKER Gender Identity Not on file Sexual Orientation Not on file documented as of this encounter Last Filed Vital Signs Vital Sign Reading Time Taken Comments Blood Pressure 127/62 12/20/2024 12:45 PM REFUSE AND RECYCLING WORKER Pulse 103 12/20/2024 12:45 PM REFUSE AND RECYCLING WORKER Temperature 36.2 C (97.2 F) 12/20/2024 12:00 PM REFUSE AND RECYCLING WORKER Respiratory Rate 17 12/20/2024 12:45 PM REFUSE AND RECYCLING WORKER Oxygen Saturation 100% 12/20/2024 12:45 PM REFUSE AND RECYCLING WORKER Inhaled Oxygen Concentration - - Weight 72 kg (158 lb 12.8 oz) 12/17/2024 10:30 P M REFUSE AND RECYCLING WORKER Height - - Body Mass Index 24.71 12/04/2021 10:10 PM REFUSE AND RECYCLING WORKER documented in this encounter Discharge Instructions * Discharge Instructions* Nena Ren RN - 12/23/2024 7:48 AM REFUSE AND RECYCLING WORKER Images from the original note were not [...] or other signs of a seizure Call 9-1-1 if you feel that it is an [...] of your health care provider. Copyright [address] [facility]. All rights reserved. Clinically reviewed by Amrita Damico, MAGUIC-OB, MSN. [employer] [id number] - Rev 12/23. Section: What to Expect [...] your doctor if you can take an zrhg-bdl-mlkthww medicine. If you think your pain medicine [...] your breast. This is sometimes called the football hold. Follow-up care is a nixon part [...] Call the Suicide and Crisis Lifeline at 906. Call 1-777-450-TALK ( ). Text HOME to 344443 to access the Crisis Text Line. Consider saving these numbers in your phone. Go to [employer] for more information or to chat online. Call your doctor or safe and vault mechanic now or seek immediate medical care if: [...] be sure to contact your doctor or safe and vault mechanic if: Your vaginal bleeding isn't decreasing. You feel sad, anxious, or hopeless for more than a few days. You are having problems with your breasts or . Where can you learn more? Go to https://www.TuneWiki.Storify/patiented Enter M806 in the search box to learn more about Section: What to Expect at Home. Current as of: February 28, 2024 Content Version: 14.3 ?? 2023 [employer]. Care instructions adapted under license by your healthcare professional. If you have questions about a medical condition or this instruction, always ask your healthcare professional. [employer] disclaims any warranty or liability for your use of this information. SE AND RECYCLING WORKER SE AND RECYCLING WORKER documented in this encounter Medications at Time [...] Guevara MD - 12/23/2024 7:53 AM CST [facility] Note Name: Deandre Chávez S: [...] ??F (36.7 ??C) Oral 70 20 -- 12/22/24 2035 119/87 98.5 ??F (36.9 ??C) -- -- -- 12/22/24 1139 115/71 98.3 ??F (36.8 [...] referral at discharge # Asthma - Continue GOLD NIB GRINDER albuterol Medically Ready for Discharge: Anticipate discharge later today Sujey Lyons MD PGY1 [facility] Obstetrics, Gynecology, & Women's Health [...] 1-2 weeks Aure Guevara MD 10:33 AM SE AND RECYCLING WORKER SE AND RECYCLING WORKER * Jenny Newby MD - 12/21/2024 7:27 PM CST [facility] Note Name: Deandre Chávez S: [...] at this time. # Asthma - Continue GOLD NIB GRINDER albuterol Medically Ready for Discharge: Anticipate discharge later today vs tomorrow. Guevara Amin DO [facility] OBGYN- PGY3 7:29 AM December 22, 2024 [facility] staff: Appreciate note by Dr. Amin. I have seen and examined the patient without the resident. I have reviewed, edited, and agree with the note. having a really hard time sleeping d/t anxiety. [place] like she just had a panic attack. [...] Jenny Newby MD, FACOG 12/22/2024 11:49 AM SE AND RECYCLING WORKER SE AND RECYCLING WORKER * Chantell Jolley - 12/21/2024 1:19 PM CST SPIRITUAL HEALTH SERVICES Progress Note, [facility] Supportive visit with Deandre and Los per the delivery of their twin girls Micaela and Isidra yesterday morning. Family is familiar to this quality analyst/technical writer from antepartum stay. I wished them [...] gentleness as she navigates very tender moments. Yarsanism suze continues to be a primary support for Deandre and Lso as they make sense of this premature [...] plan to follow up again next week. Chantell Jolley MDiv Associate Supervisor Hanging And Trimming Pager [phone] Reachable by Patient Education Systems * [facility] remains available 23/05 for emergent requests/referrals, either by having the switchboard pagethe on-call auto parts delivery driver or by entering an ALEX/STAT consult in [facility] (this will also page the on-call auto parts delivery driver). Routine [facility] consults receive an initial response within 24 hours.* SE AND RECYCLING WORKER SE AND RECYCLING WORKER * Jenny Newby MD - 12/21/2024 7:12 AM CST [facility] Note Name: Deandre Chávez S: [...] 92 16 100 % 12/20/24 1200 (!) 97.2 ??F (36.2 ??C) Oral 93 19 [...] BC: Not discussed # Asthma - Continue GOLD NIB GRINDER albuterol Medically Ready for Discharge: Anticipated in 2-4 Days Maureen Cardenas MD INDUSTRIAL AUTOMATION SPECIALIST PGY-3 12/21/2024 7:13 AM [facility] staff: Appreciate note by Dr. Cardenas. I have seen and examined the patient without the resident. I have reviewed, edited, and agree with the note. Jenny Newby MD, FACOG 12/21/2024 8:55 AM SE AND RECYCLING WORKER SE AND RECYCLING WORKER * Katerina Hardy MD - 12/21/2024 6:13 [...] care for this patient. Katerina Hardy MD Lcsw, CA-1, PGY-2 Cosigned by Mary Lou Abel MD at 12/21/2024 4:26 PM REFUSE AND RECYCLING WORKER SE AND RECYCLING WORKER SE AND RECYCLING WORKER Associated attestation - Mary Lou Abel MD - 12/21/2024 4:26 PM REFUSE AND RECYCLING WORKER Physician Attestation I agree with the information in this note. Mary Lou Abel MD * Joceline Grant MD - 12/20/2024 2:59 PM CST To bedside with Dr Ahmadi to de-brief today's events. Reviewed surgical course and intra-op findings. No questions at this time. Discussed that S team will follow patient for remainder of hospitalization. Joceline Grant MD Software Architect PGY-3 12/20/24 3:00 PM SE AND RECYCLING WORKER * Kaia Spence RN - 12/20/2024 2:00 PM CST Data: Deandre Chávez transferred to 7122 via wheelchair at 1340. Baby transferred to NICU after delivery. Action: Receiving unit notified of transfer: Yes. Patient and family notified of room change. Report given to Lizette at 1340. Belongings sent to receiving unit. Accompanied by Registered Nurse. Oriented patient to surroundings. Call light within reach. ID bands double-checked with receiving RN. Response: Patient tolerated transfer and is stable. SE AND RECYCLING WORKER * Emil Ahmadi MD - 12/20/2024 9:52 AM CST [facility] Progress Note- Acute Event Received urgent Vocera message from bedside RN at 0847 regarding variable decelerations on monitoring. At that time, this quality analyst/technical writer was on the shuttle to the [place] for rounds- got off shuttle outside of [facility] and presented to bedside at 0853. Bedside ultrasound performed to aid in finding heart tones for twin A. From 1094-8113, FHT reassuring for both twins with re-positioning onto side. At 0915, another twin B had another large variable [...] was present at bedside Joceline Grant MD Software Architect PGY-3 12/20/24 10:06 AM Addendum: Note entered [...] above events and care Joceline Grant MD Software Architect PGY-3 12/20/24 2:25 PM Physician Attestation I saw this patient with the resident and agree with the resident/fellow's findings and plan of careas documented in the note. Nixon findings: I was notified of the decelerations on my way to the [facility]. Senior resident left transport to assess and Dr. Frank on site at labor unit. Returned after [facility] toassess patient who had reassuring assessment x [...] Service (when I saw the patient): 12/20/24 SE AND RECYCLING WORKER SE AND RECYCLING WORKER SE AND RECYCLING WORKER * Shena Eugene RN - 12/20/2024 9:35 AM CST Magnesium infusion loading dose started at 0933. VSS. Lung sounds clear throughout. Apical pulse regular. DTRs WNL. Repeat BP checks initiated. Continuous pulse oximetry monitoring initiated. SE AND RECYCLING WORKER * Diana Kaye RD - 12/20/2024 9:18 AM CST CLINICAL NUTRITION SERVICES Reviewed nutrition risk factors due to LOS. No concerns with oral intake per physician practice market manager Reviewed wt hx. No unintentional wt loss. No indication of pressure injury. Follow Up / Monitoring: RD to sign off at this time. RD may be consulted if needs arise. Diana Kaye MS, RDN, LD TCU/OB/Ortho Clinical Dietitian Available via phone and Vocera Vocera: 4B OB Clinical Dietitian Weekend/Holiday Vocera: Weekend Holiday Clinical Dietitian [Multi Site Groups] SE AND RECYCLING WORKER * Augustina Wei CCLS - 12/19/2024 3:41 PM CST 12/19/24 1539 Child Life Location [facility] End Zone Method in-person Individuals Present Caregiver/Adult Family Member;Siblings/Child Family Members Comments (names or other info) Pt's , pt's mother, pt's children Cerritos (3 yo) and Alexis (5 yo) Intervention Developmental Play Developmental Play Comment Pt's family members participated in play throughout the End Zone. Alexisand dad played with LETICIA Jam, bubble hockey, and Minecraft on the PlayStation with volunteer Candy.Cerritos and grandma colored on the Jamboard, did dauber art, and colored in coloring books at the arttables with volunteer Luisa. Time Spent Direct Patient Care 110 Indirect Patient Care 5 Total Time Spent (Calc) 115 SE AND RECYCLING WORKER * Emil Ahmadi MD - 12/19/2024 8:43 AM CST [facility] Antepartum Progress Note Subjective Doing ok this morning. Nervous about new finding of PACs on ultrasound for twin A. Wondering if this is a reason that babies would potentially need to be delivered today. Her has a root canaltoday so they are curious as to the interpretation of today's ultrasound. Otherwise, no new complications or symptoms. Objective Vitals: 12/17/24204012/17/24222912/18/24205712/18/242058 BP: 121/57 118/68 116/71 BP Location: Right [...] Ext: no edema Weight: Vitals: 12/10/24 1545 12/17/242229 Weight: 72.6 kg (160 lb) 72 kg (158 lb 12.8 oz) SVE: 0 / 0% / -3 (cervical exam from 12/10) Membranes: intact FHT1: baseline 130 bpm, moderate variability, accelerations absent, variable decelerations (0854) FHT2: baseline 150 bpm, moderate variability, accelerations absent, no decelerations [facility]: 0 contractions in 10 minutes Impression: reactive, [...] x2 (next 12/20) # GERD - Continue GOLD NIB GRINDER omeprazole - Famotidine 10 mg daily - [...] Anticipated in 5+ Days Joceline Grant MD Software Architect PGY-3 12/19/24 8:51 AM Physician Attestation I [...] Service (when I saw the patient): 12/19/24 SE AND RECYCLING WORKER SE AND RECYCLING WORKER SE AND RECYCLING WORKER * Deandre Meza CCLS - 12/18/2024 5:18 PM CST 12/18/24 1700 Child Life Location [facility] End Zone Method in-person Individuals Present Caregiver/Adult Family Member;Siblings/Child Family Members Comments (names or other info) Patients , son, and daughter. Intervention Developmental Play Developmental Play Comment Patients daughter and staff played in the sport court, while andson played on the sports simulator. Patients and son played LETICIA jam. Outcomes/Follow Up Provided Materials Outcomes Comment Patients son and daughter were provided with to go craft kits. Time Spent Direct Patient Care 25 Indirect Patient Care 5 Total Time Spent (Calc) 30 SE AND RECYCLING WORKER * Rosalia Lopez CCLS - 12/18/2024 3:59 PM CST 12/18/24 1138 Child Life Location [facility]place Interaction Intent Follow Up/Ongoing support Method [...] Care 15 Total Time Spent (Calc) 60 SE AND RECYCLING WORKER * Chantell Jolley - 12/18/2024 11:00 AM CST SPIR[facility]UAL HEALTH SERVICES Progress Note [facility] ([facility] Antepartum Encountered Deandre and spouse [place] in [facility] [place], offered check in. Deandre and Los seemed to be in good spirits as they prepared food together. They shared that their children Alexis and Carlos will be coming tonight to visit with Deandre's mom and will be here all week, which is a great source of excitement. They reflected on missing them dearly, and appreciate the assistance from [facility] to help prepare for time together in the hospital. Deandre and Los are coping well and are grounding supports to one another. They express gratitude [facility]'s flexibility and increased ability to work from the hospital. They celebrate reaching 24 weeks GA and continue to take things one day at a time, practicing thankfulness for each new day as a milestone for their babies. Suze is central to meaning making and coping. No new spiritual needs at this time, [facility] to continue following. Chantell Jolley MDiv Associate Supervisor Hanging And Trimming Pager [phone] Reachable by Patient Education Systems * [facility] remains available 23/05 for emergent requests/referrals, either by having the switchboard pagethe on-call auto parts delivery driver or by entering an ALEX/STAT consult in [facility] (this will also page the on-call auto parts delivery driver). Routine [facility] consults receive an initial response within 24 hours.* SE AND RECYCLING WORKER * Emil Ahmadi MD - 12/18/2024 9:16 AM CST [facility] Antepartum Progress Note Subjective Feeling well [...] bpm, moderate variability, accelerations absent, no decelerations [facility]: 0-1 contractions in 10 minutes Impression: reactive, [...] x2 (next 12/20) # GERD - Continue GOLD NIB GRINDER omeprazole - Famotidine 10 mg daily - [...] Anticipated in 5+ Days Joceline Grant MD Software Architect PGY-3 12/18/24 9:25 AM Physician Attestation I saw this patient with the resident and agree with the resident/fellow's findings and plan of careas documented in the note. Nixon findings: [place]-di twins with sFGR twin 2 and abnormal [...] Service (when I saw the patient): 12/18/24 SE AND RECYCLING WORKER SE AND RECYCLING WORKER * Emil Ahmadi MD - 12/17/2024 9:23 AM CST [facility] Antepartum Progress Note Subjective Patient feeling [...] subtle late appearing deceleration at 0948, 0957 [facility]: 0-1 contractions in 10 minutes Impression: reactive, appropriate for gestational age Labs: Rh positive, antibody negative Rubella non-immune Hepatitis B sAg NR, Hepatitis C NR, HIV NR, RPR negative GCT not yet performed GBS positive Last Pap: 07/16/25 NILM Imaging: [facility] Comprehensive US (12/10/24) Fetus 1 Cardiac [...] of reverse flow in a-wave. MFM OB Comprehensive follow up US (12/17/24) [...] Antibody Screen Negative Negative SPECIMEN EXPIRATION DATE [id number] Assessment/Plan 29 year old at 24w1d admitted [...] GERD Patient endorses GERD, currently managed on GOLD NIB GRINDER omeprazole and small frequent meals with improvement in symptoms - Continue GOLD NIB GRINDER omeprazole - Famotidine 10 mg daily - [...] MCA, DV Dopplers of both twins (next 2/19); plan for repeat growth US on 12/31 [...] Service (when I saw the patient): 12/17/24 SE AND RECYCLING WORKER SE AND RECYCLING WORKER * Marly Anna, RN - 12/17/2024 7:03 AM CST Patient stable this morning. VSS, afebrile. Denies vaginal bleeding, LOF, or contractions. PIV flushed. Patient resting comfortably. SE AND RECYCLING WORKER * Cameron Leach MD - 12/16/2024 10:56 AM CST [facility] Antepartum Progress Note Subjective Patient doing [...] Regular Adult Regular Pulse: Resp: 16 16 Temp: 98.4 ??F (36.9 ??C) [...] 0947 to 0952; #2: 1028 to 1032) [facility]: 0-1 contractions in 10 minutes Impression: reactive, [...] Los have discussed her risks with the [facility] team in detail at previous outpatient [...] GERD Patient endorses GERD, currently managed on GOLD NIB GRINDER omeprazole and small frequent meals. Discussed importance of weight gain to improve outcomes. - Continue GOLD NIB GRINDER omeprazole - Famotidine 10 mg daily - [...] 5+ Days Cameron Leach MD, MPH, MS [facility] Maternal Medicine Resident, PGY-3 12/16/2024 11:07 AM To reach the MATERNAL MEDICINE team for this patient, please page [phone] Cosigned by Karin Esteban MD at 12/16/2024 11:58 AM REFUSE AND RECYCLING WORKER SE AND RECYCLING WORKER SE AND RECYCLING WORKER Associated attestation - Karin Esteban MD - 12/16/2024 11:58 AM REFUSE AND RECYCLING WORKER MFM Attending Attestation I saw this patient [...] minutes -MCDA (Type 3 sFGR twin 2): 12/03: [...] I spent a total of 45 minutes [id number] or coordinating care of Ms. Chávez. Over 50% of my timeon the unit was spent counseling the patient and /or coordinating care regarding diagnosis, diagnostic results, prognosis and risks and benefits of treatment options. Date of service (when I saw the patient): 12/16/2024 Karin Esteban MD Front Counter Attendant, INDUSTRIAL AUTOMATION SPECIALIST Maternal- Medicine [phone] (Pager) * Narda Vegas RN - 12/16/2024 6:59 AM CST Pt states she is having increase in fluid leaking and feeling her baby move less. Placed on monitor. Monitoring extended due to decreased reactivity and prolonged decel x1. Dr. Zelaya informed. Willcontinue to monitor FHT. SE AND RECYCLING WORKER * Hue Zelaya MD - 12/15/2024 9:30 AM CST [facility] Antepartum Progress Note Subjective Patient doing [...] bpm, moderate variability, accelerations present, decelerations absent [facility]: 0-1 contractions in 10 minutes Impression: reactive, appropriate for gestational age Labs: Rh positive, antibody negative Rubella non-immune Hepatitis B sAg NR, Hepatitis C NR, HIV NR, RPR negative GCT not yet performed GBS positive Last Pap: 07/16/25 NILM Imaging: [facility] Comprehensive US (12/10/24) Fetus 1 Cardiac [...] shows episodes of reverse flow in a-wave. [facility] OB Limited US (12/17/24) Fetus 1 1. [...] Los have discussed her risks with the [facility] team in detail at previous outpatient [...] GERD Patient endorses GERD, currently managed on GOLD NIB GRINDER omeprazole and small frequent meals. Discussed importance of weight gain to improve outcomes. - Continue GOLD NIB GRINDER omeprazole - Famotidine 10 mg daily - [...] Karin Esteban MD at 12/15/2024 11:38 AM REFUSE AND RECYCLING WORKER SE AND RECYCLING WORKER SE AND RECYCLING WORKER Associated attestation - Karin Esteban MD - 12/15/2024 11:38 AM REFUSE AND RECYCLING WORKER MFM Attending Attestation I saw this patient [...] I spent a total of 45 minutes jvui-lq-uaah or coordinating care of Ms. Chávez. Over 50% of my timeon the unit was spent counseling the patient and /or coordinating care regarding diagnosis, diagnostic results, prognosis and risks and benefits of treatment options. Date of service (when I saw the patient): 12/15/2024 Karin Esteban MD Front Counter Attendant, INDUSTRIAL AUTOMATION SPECIALIST Maternal- Medicine [phone] (Pager) * Guevara Amin MD - 12/14/2024 [...] B: 150 bpm, moderate variability, accelerations present [facility]: 0 contractions in 10 minutes Impression: reactive, [...] as course progresses - [facility] TWIN US COMPREHENSIVE 12/11/24 Formal report pending: no further evidence of reverse flow in a-wave of DV waveform. [facility] TWIN US COMPREHENSIVE 12/13/24 Monochorionic diamniotic [...] Los have discussed her risks with the [facility] team in detail at previous outpatient [...] #GERD Patient endorses GERD, currently managed on GOLD NIB GRINDER omeprazole and small frequent meals. Discussed importance of weight gain to improve outcomes. - Continue GOLD NIB GRINDER omeprazole - Famotidine 10 mg daily - [...] until after delivery. Guevara Amin DO, MA N OBGYN- PGY3 8:47 AM December 14, 2024 Cosigned by Karin Esteban MD at 12/14/2024 9:45 AM REFUSE AND RECYCLING WORKER SE AND RECYCLING WORKER SE AND RECYCLING WORKER Associated attestation - Karin Esteban MD - 12/14/2024 9:45 AM REFUSE AND RECYCLING WORKER MFM Attending Attestation I saw this patient [...] I spent a total of 45 minutes ivsn-cn-ajgy or coordinating care of Ms. Chávez . Over 50% of my time on the unit was spent counseling the patient and /or coordinating care regarding diagnosis, diagnostic results, prognosis and risks and benefits of treatment options. Date of service (when I saw the patient): 12/14/2024 Karin Esteban MD Front Counter Attendant, INDUSTRIAL AUTOMATION SPECIALIST Maternal- Medicine [phone] (Pager) * Rosalia Lopez CCLS - 12/13/2024 3:35 PM CST 12/13/24 1527 Child Life Location [facility] Birthplace Interaction Intent Follow Up/Ongoing support Method in-person Individuals Present Patient;Caregiver/Adult Family Member Comments (names or other info) Pt's present Intervention Supportive Check in Supportive Check in CCLS [facility] into pt and her in [facility], [facility]. They were impressed with the space and expressed that it would be a fun space to bring the kids if they visit. Deandre inquired about movies available, particularly romantic comedies. CCLS provided three movies from the [facility], brought to pt's room. Deandre expressed appreciation, no other needs at this time. Time Spent Direct Patient Care 10 Indirect Patient Care 30 Total Time Spent (Calc) 40 SE AND RECYCLING WORKER * Jenny De Souza MD - 12/13/2024 [...] B: 145 bpm, moderate variability, accelerations present [facility]: 0 contractions in 10 minutes Impression: reactive, [...] Antibody Screen Negative Negative SPECIMEN EXPIRATION DATE [id number] Labs: - Rh positive, Antibody negative - Rubella non-immune, Hepatitis B NR, Hepatitis C NR, HIV NR, RPR negative (1st trimester and on admission), GBS Positive - GCT at 24w if at that time - Other labs wnl - Imaging -- Dating: L=7w U/S -- Anatomy: see formal report - Immunizations: Discuss Flu, COVID as course progresses - Pap last 07/16/24, NILM Imaging: [facility] COMPREHENSIVE 12/11/24 Formal report pending: no further evidence of reverse flow in a-wave of DV waveform. [facility] COMPRE[facility]ENS[facility] 12/13/24 Monochorionic diamniotic [...] #GERD Patient endorses GERD, currently managed on GOLD NIB GRINDER omeprazole and small frequent meals. Discussed importance of weight gain to improve outcomes. - Continue GOLD NIB GRINDER omeprazole - Famotidine 10 mg daily - [...] Jesus Harmon MD at 12/13/2024 3:35 PM REFUSE AND RECYCLING WORKER SE AND RECYCLING WORKER SE AND RECYCLING WORKER Associated attestation - Jesus Harmon MD - 12/13/2024 3:35 PM REFUSE AND RECYCLING WORKER Physician Attestation I saw this patient with [...] I saw the patient): 12/13/24 * Deandre Meza CCLS - 12/12/2024 4:38 PM CST 12/12/24 1637 Child Life Location [facility] End Zone Interaction Intent Introduction of Services [...] Care 5 Total Time Spent (Calc) 10 SE AND RECYCLING WORKER * Rosalia Lopez CCLS - 12/12/2024 3:57 PM CST 12/12/24 1529 Child Life Location [facility] (antepartum) Interaction Intent Introduction of Services;Initial [...] promote the best understanding. 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 Please contact this quality analyst/technical writer with needs as they arise. Time Spent Direct Patient Care 30 Indirect Patient Care 30 Total Time Spent (Calc) 60 SE AND RECYCLING WORKER * Jenny De Souza MD - 12/12/2024 [...] B: 140 bpm, moderate variability, accelerations present [place]: 0 contractions in 10 minutes Impression: reactive, [...] Will discuss - Feeding: Will discuss Imaging: [facility] COMPRE[facility]ENSIVE 12/11/24 Formal report pending: no further evidence of reverse flow in a-wave of DV waveform. [facility] COMPRE[facility]ENS[facility] 12/10/24 Fetus 1 [...] #GERD Patient endorses GERD, currently managed on GOLD NIB GRINDER omeprazole and small frequent meals. Discussed importance of weight gain to improve outcomes. - Continue GOLD NIB GRINDER omeprazole - Famotidine 10 mg daily - [...] Jesus Harmon MD at 12/12/2024 8:31 PM REFUSE AND RECYCLING WORKER SE AND RECYCLING WORKER SE AND RECYCLING WORKER Associated attestation - Jesus Harmon MD - 12/12/2024 8:31 PM REFUSE AND RECYCLING WORKER Physician Attestation I saw this patient with [...] given the full course of BTMS on 2/. On 12/11/2024 we repeated doppler studies, we [...] present, intermittent variable decelerations, rare late deceleration [facility]: 2-3 contractions in 10 minutes Impression: reactive, [...] Will discuss - Feeding: Will discuss Imaging: [facility] COM[facility]ENSIVE 12/11/24 Formal report pending: no further evidence of reverse flow in a-wave of DV waveform. [facility] COM[facility] 12/10/24 Fetus 1 [...] #GERD Patient endorses GERD, currently managed on GOLD NIB GRINDER omeprazole. Discussed importance of weight gain to improve outcomes. - Continue GOLD NIB GRINDER omeprazole - Carafate solution prn if symptoms [...] Eden Siegel MD Obstetrics and Gynecology, PGY-2 12/11/24 10:29 AM Cosigned by Jesus Harmon MD at 12/11/2024 10:58 AM REFUSE AND RECYCLING WORKER SE AND RECYCLING WORKER SE AND RECYCLING WORKER Associated attestation - Jesus Harmon MD - 12/11/2024 10:58 AM REFUSE AND RECYCLING WORKER Physician Attestation I saw this patient with [...] Women's Health Resident, PGY-3 12/11/2024 12:13 AM SE AND RECYCLING WORKER documented in this encounter H&P Notes * Jenny De Souza MD - 12/10/2024 5:01 PM CST Images from the original note were not included. Antepartum History and Physical December 10, 2024 Deandre Chávez [id number] HPI Deandre Chávez is a 29 year [...] cephalic) will go by meaghan Payne for [place]. Twin B will go by megahan Allen for [place]. Deandre and Los wish to avoid stillbirth [...] stay with her mother, who is a riding teacher in [place], while she is admitted in the hospital [...] 650 mg 650 mg Oral Q4H PRN Jenny De Souza MD alum & mag hydroxide-simethicone (MAALOX) suspension 30 mL 30 mL Oral BID PRN Jenny De Souza MD betamethasone acet & sod phos (CELESTONE) injection 12 mg 12 mg Intramuscular Q24H Tay'Jenny Duenas MD 12 mg at 12/10/241828 bisacodyl (DULCOLAX) suppository 10 mg 10 mg Rectal Daily PRN Jenny De Souza MD calcium carbonate (TUMS) chewable tablet 1,000 mg 1,000 mg Oral Q6H PRN Jenny De Souza MD calcium carbonate (TUMS) chewable tablet 500 mg 500 mg Oral BID Jenny De Souza MD diphenhydrAMINE (BENADRYL) capsule 25 mg 25 mg Oral Q6H PRN Jenny De Souza MD Or diphenhydrAMINE (BENADRYL) injection 25 mg 25 mg Intravenous Q6H PRN Jenny De Souza MD docusate sodium (COLACE) capsule 100 mg 100 mg Oral BID Tay'Jenny Dueans MD famotidine (PEPCID) tablet 10 mg 10 mg Oral Daily O'Jenny Duenas MD metoclopramide (REGLAN) tablet 10 mg 10 mg Oral Q6H PRN O'Nan, Jenny, MD Or metoclopramide (REGLAN) injection 10 mg 10 mg Intravenous Q6H PRN Jenny De Souza MD ondansetron (ZOFRAN ODT) ODT tab 4 mg 4 mg Oral Q6H PRN Jenny De Souza MD Or ondansetron (ZOFRAN) injection 4 mg 4 mg Intravenous Q6H PRN Jenny De Souza MD [START ON 12/11/2024] pantoprazole (PROTONIX) EC tablet 40 mg 40 mg Oral Daily Jenny De Souza MD multivitamin w/iron per tablet 1 tablet 1 tablet Oral Daily Jenny De Souza MD prochlorperazine (COMPAZINE) tablet 10 mg 10 mg Oral Q6H PRN Jenny De Souza MD Or prochlorperazine (COMPAZINE) injection 10 mg 10 mg Intravenous Q6H PRN Jenny De Souza MD simethicone (MYLICON) chewable tablet 160 mg 160 mg Oral Q6H PRN Jenny De oSuza MD sodium phosphate (FLEET ENEMA) 1 enema [...] 150, minimal-moderate variability, accelerations present, no decelerations [place]: rare ctxs Impression: overall reassuring for both [...] Status --------- ------ CBC with platelets and d...[[id number]] Abnormal Final result Please view results for these tests on the individual orders. ABO/Rh type and screen Narrative The following orders were created for panel order ABO/Rh type and screen. Procedure Abnormality Status --------- ------ Adult Type and Screen[[id number]] Final result Please view results for these [...] Antibody Screen Negative Negative SPECIMEN EXPIRATION DATE [id number] Imaging Comprehensive US (12/10/24) Fetus 1 Cardiac [...] #GERD Patient endorses GERD, currently managed on GOLD NIB GRINDER omeprazole. - Continue GOLD NIB GRINDER omeprazole - Consider GI cocktail if sx [...] Jesus Harmon MD at 12/11/2024 10:36 AM REFUSE AND RECYCLING WORKER SE AND RECYCLING WORKER SE AND RECYCLING WORKER Associated attestation - Jesus Harmon MD - 12/11/2024 10:36 AM REFUSE AND RECYCLING WORKER Physician Attestation -Late entry I saw this [...] this encounter Consult Notes * Jocelyn Subramanian, SPEEDBOAT OPERATOR - 12/23/2024 10:00 AM CSTAssociated Order(s): SOCIAL WORK IP CONSULT Social Work Initial Consult General Information Assessment completed with: Patient, Deandre & Los Type of visit: NICU Psychosocial Assessment Reason for Consult: mental health concerns Living Environment: Primary caregiver: Deandre is a 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 Lives with: Deandre and Los reside in a home in [place], [place] with their 2 children Current living [...] Support System: Supportive Employment/Financial Patient's caregiver works full/supervisor fabrication department: Los works full-time Patient works full/supervisor fabrication department: No Coping/Stress Deandre reports having a strong social network with whom she can rely on. She has a close relationshipwith her mother and brother. She is connected with her suze community and she has a counselor thatshe plans on reaching out to. Deandre also physically decompresses by doing knitting. SW observed Farzadnitting as she completed her assessment. Provider noted [...] visiting but Deandre shared that she has manager child for the next 2 weeks. Los and her areher biggest supports and have helped thought this process. certificate, SSN have been requested. The twins will likely be in NICU until March. JOHN discussed discounting parking passes and the process. Los shared that he was on it. Los is the primary breadwinner and he owns his own paint company. Deandre shared that the family is not in need of any monetary supports at this time. They are insured through [facility] and the twins will be added shortly. [...] follow for supportive intervention. CARLOS MANUEL Chow SE AND RECYCLING WORKER * Sharyn Cervantes, RN - 12/13/2024 11:16 PM CSTAssociated Order(s): NURSING TO CONSULT FOR VASCULAR ACCESS CARE IP CONSULT Consult received for Vascular access care. See LDA for details. For additional needs place Nursingto Consult for Vascular Access [id number] order in EPIC. SE AND RECYCLING WORKER * Chantell Jolley - 12/12/2024 2:07 PM [...] Hinojosa. Deandre shared at length about her Yarsanism suze, which is foundational to her coping. [...] between churches and do not have a revenue tax specialist of their own. They welcome auto parts delivery driver support. I oriented them to rituals, like yazidi, namings, etc. and Deandre will consider them. For now, Deandre considers each new day the goal and a gift. She had prayed to get to 22 weeks. We spoke of gentleness with herself while in this liminal space. Plan: Deandre would like to meet with [facility] about her older children Alexis and Carlos visiting in the near future. Referral sent. [facility] to follow closely. Chantell Jolley M.Div. Associate Supervisor Hanging And Trimming Pager [phone] Reachable via Patient Education Systems [facility] available 23/05 for emergent requests/referrals, either by paging the on-call auto parts delivery driver or by entering an ALEX/STAT consult in [facility], which will also page the on-call auto parts delivery driver. Assessment Saw pt Deandre Stevan Chávez per routine consult. Patient/Family Understanding of Illness [...] in the care of her mom in [place], [place], where they will attend a private Yarsanism school her mother works at. This is a great comfort. She looks forward to their visiting in the coming week. CFL consulted. Deandre is coping in this liminal time by taking things one day at a time, and by reminding herself, It was our prayer at 15 weeks to make it to this point... this is our answered prayer. She stated, We're honored to be their Mom and Dad as long as possible. Meaning, Beliefs, and Spirituality - Yarsanism suze is foundational to coping for this [...] friends. She is considering rituals, such as yazidi, and welcomes continued spiritual care. SE AND RECYCLING WORKER * Kathie Florence, [facility] - 12/11/2024 11:38 AM CSTAssociated Order(s): CARE [...] to her , Los. They live in [place], [place]. These twins, Carole (Micaela) and Geary (Isidra) are their 3rd/4th babies. Their two children at home are Alexis (5) and Belley (3). Assessment of Support Deandre and Los are surrounded with a strong support system. Deandre's mom will come to care for the kids while Los spends time here with Deandre. Her mom is a teacher at a private Yarsanism school in [place]. It is an ideal situation where Alexis [...] stay at home parent. Los co-owns a [employer] and Do IT developers business with his father. He does have employees and works closely with general contractors that can manage things when he is needed here. His busiest season isstarting now but he has some flexibility and he can work remotely. Deandre has [employer] through [facility]. The babies will be added to this [...] generalized anxiety and a anxiety disorder after Carlos's . She has accessed counseling on/off over [...] for an escalation of her anxiety symptoms. JOHN discussed the availability of psychosocial supports as [...] admission for supportive interventions. CARLOS MANUEL Bashir FLOORING MACHINE OPERATOR Clinical Sole Splitter Maternal Child Health Voicemail: [phone] Reachable via Patient Education Systems SE AND RECYCLING WORKER * Prabha Ahmadi MD - 12/10/2024 9:00 PM CSTAssociated Order(s): PEDS NEONATOLOGY IP CONSULT Images from the original note were not included. [facility] NICU Antepartum Counseling Consult I was asked [...] discharge home around theirdue date with fewer nursing home complications. I expressed that I cannot predict [...] process of making milk for a premature infant, the availability of support, supplies to consider obtaining in preparation for pumping for a premature (hands free pumping bra, double electric breast pump), and the availability of donor breast milk should mom's milk not be available. I left her with the educational website www.[employer]find[employer]. I discussed the benefits of roij-vw-yzol contact and the importance of their presence [...] DO - Medicine Fellow Intensive Care Unit [facility] Cosigned by Maria Isabel Pino MD at 12/12/2024 1:29 PM REFUSE AND RECYCLING WORKER SE AND RECYCLING WORKER SE AND RECYCLING WORKER SE AND RECYCLING WORKER Associated attestation - Maria Isabel Pino MD - 12/12/2024 1:29 PM REFUSE AND RECYCLING WORKER Physician Attestation I agree with the information in this note. Maria Isabel Pino MD documented in this encounter Miscellaneous Notes * Plan of Care - Nena Ren, MAGUI - 12/23/2024 2:57 PM CST Goal Outcome Evaluation: Plan of Care Reviewed With: patient Problem: Adult Inpatient Plan of Care Goal: Optimal Comfort and Wellbeing Outcome: Met Intervention: Provide Person-Centered Care Recent Flowsheet Documentation Taken 12/23/2024912 by Nena Ren, RN Trust Relationship/Rapport: care explained choices provided [...] pt. Anticipate discharge home when finished packing. SE AND RECYCLING WORKER SE AND RECYCLING WORKER * Note - Hedy Culp RNC - [...] up emptying and best program breasts for computer terminal operator supply Benefits of logging Reviewed cleaning, sanitizing, labeling, transporting Plan: Check back day 5 Hedy Culp RNC-LUIS CARLOS, IBCLC Service Delivery Analyst Makenna: [employer] [phone] Office: [phone] SE AND RECYCLING WORKER * Provider Notification - Nena Ren RN - 12/23/2024 11:12 AM CST Pt scored 14 on depression questionnaire. I ordered SW and she will talk to pt about resources. Question of self harm was zero. Dr. Arlette Lyons G1 text paged and updated. SE AND RECYCLING WORKER * Plan of Care - Nicole Pinon [...] at bedside and attentive to patient. Visiting twins in NICU. Plan Problem: Adult Inpatient Plan of Care Goal: Optimal Comfort and Wellbeing Outcome: Progressing Intervention: Provide Person-Centered Care Recent Flowsheet Documentation Taken 12/22/20241999 by Nicole Pinon RN Trust Relationship/Rapport: care explained choices provided emotional support provided empathic listening provided Problem: ( Delivery) Goal: Hemostasis Outcome: Progressing of care ongoing. SE AND RECYCLING WORKER * Provider Notification - Nicole Pinon RN - 12/22/2024 9:34 PM REFUSE AND RECYCLING WORKER 12/22/242133 Provider Notification Provider Name/Title Dr. Leach [...] see pt. Shortly. Will continue to monitor. SE AND RECYCLING WORKER * Plan of Care - Nena Ren [...] and provide emotional support as pt needs. SE AND RECYCLING WORKER * Provider Notification - Nena Ren, RN - 12/22/2024 11:54 AM CST Pt [...] unit and updated. Went to see pt. SE AND RECYCLING WORKER SE AND RECYCLING WORKER * Note - Sherri Morales RNC - 12/22/2024 11:09 AM CST This note was copied from a baby's chart. Reminders (delete this area when done): Maternal sticky note for pump lcnfcc Update Nurse ([facility] HOT lcplan is the general admit info. Amend as needed. Update IBCLC column Admission Note Baby Information: Infant's first name: A: Julia Reddy B: Madison Miner Infant medical history: 24+4 mono-di ELBW twins Account Supervisor needed? No goal (if known): Provide breast milk. history: Exclusively breast fed her first two children for 2.5 years each Mother's Information: Name: Deandre Occupation: - Age: 29 Delivery type: [place]: [place] Pump for home use: Needs rental at [...] twins' bedside. Sherri Morales RNC-LUIS CARLOS, IBCLC Service Delivery Analyst Makenna: [employer] Farm Manager [employer] [phone] Office: [phone] SE AND RECYCLING WORKER * Plan of Care - Radhika Alarcon RN - 12/22/2024 3:52 AM CST Goal Outcome Evaluation: Plan of Care Reviewed With: patient, spouse Overall Patient Progress: improvingOverall Patient Progress: improving Problem: ( Delivery) Goal: Optimal Pain Control and Function Outcome: Progressing Intervention: Prevent or Manage Pain Recent Flowsheet Documentation Taken 12/22/2024 0024 by Radhika Alarcon RN Pain Management Interventions: medication (see MAR) Taken 12/21/20242206 by Radhika Alarcon RN Pain Management Interventions: [...] in NICU. Continue with plan of care. SE AND RECYCLING WORKER * Plan of Care - Nicole Pinon [...] Pinon RN Family/Support System Care: support provided SE AND RECYCLING WORKER * Plan of Care - Nena Ren [...] shower. Now trying to sleep but calling quality analyst/technical writer often for little things. Encouraged to take flexeril to help relax but pt anxious about taking new medication as well. C/o pain in morning but pain better controlled this afternoon. Pumping for twins in NICU. Emotional support provided. FOB supportive. Will continue to monitor. SE AND RECYCLING WORKER * Provider Notification - Nena Ren RN - 12/21/2024 8:34 AM CST Pt wanted to talk with provider about lovenox. Dr. Newby came into room and informed. Dr. Newbyspoke to pt about medication. Pt offered lovenox again and is undecided at this time. Informed pt to let quality analyst/technical writer know if she wants medication today. Dr. Rene Alba G2 resident text paged and informed. SE AND RECYCLING WORKER SE AND RECYCLING WORKER * Plan of Care - Denita Farrar [...] present. Plan: Continue with care plan. Denita Farrar RN on 12/21/2024 at 1:37 AM SE AND RECYCLING WORKER * Plan of Care - Nicole Pinon [...] or SOB. Patient denies passing gas.Pumping for twins in NICU. at bedside and supportive [...] Optimal Pain Control and Function Outcome: Progressing SE AND RECYCLING WORKER * Plan of Care - Lizette Rincon [...] of care ongoing, no concerns as ofpresent. SE AND RECYCLING WORKER * Plan of Care - Lizette Rincon RN - 12/20/2024 2:53 PM CST Patient arrived to [facility] unit via zoom cart at 1335 ,with belongings, accompanied by spouse/ significant other, with infants in the NICU . Received report from MAGUI Marti and checked bands. Unit and room orientation completd. Call light given; no concerns present at this time. Continue with plan of care. SE AND RECYCLING WORKER * Plan of Care - Kaia Spence RN - 12/20/2024 1:00 PM CST Pt stable post CS. VSS, assessment WDL. Surgery EBL 800. Toradol and fentanyl given for pain in PACU. Tap block done in OR. Pumping intiated in PACU. Support person at bedside. OUtput adequate from ashley. Alert and oriented post general anesthesia. Anticipate transfer to [facility]. SE AND RECYCLING WORKER * Brief Op Note - Joceline Grant MD - 12/20/2024 12:24 PM CST Brief Operative Note Name: Deandre Chávez : 1995 Date of Surgery: 12/20/2024 Pre-operative Diagnosis: - IUP @ 24w4d - [place]-di twin gestation - Selective FGR type III [...] Data is abnormally high Joceline Grant MD Software Architect PGY-3 12/20/24 12:27 PM SE AND RECYCLING WORKER * Provider Notification - Shena Eugene RN - 12/20/2024 10:40 AM REFUSE AND RECYCLING WORKER 12/20/24 1040 Provider Notification Provider Name/Title Dr. Grant Method of Notification Electronic Page Request Evaluate in Person Notification Reason Decels Provider notified regarding the audible deceleration at bedside. SE AND RECYCLING WORKER SE AND RECYCLING WORKER * Provider Notification - Shena Eugene RN - 12/20/2024 10:30 AM REFUSE AND RECYCLING WORKER 12/20/24 1014 Provider Notification Provider Name/Title Dr. Grant Method of Notification Electronic Page Request Evaluate-Remote Notification Reason Medication Request Patient is feeling anxious and reports as feeling she is going to . VSS. Assessments WNL. Provider requested for the medication for anxiety. Provider ordered Ativan. But, patient does not want to take it and states that she is feeling better now. SE AND RECYCLING WORKER * Provider Notification - Shena Eugene RN - 12/20/2024 8:47 AM REFUSE AND RECYCLING WORKER 12/20/24 0847 Provider Notification Provider Name/Title Dr. Grant Method of Notification Electronic Page Request Evaluate in Person Notification Reason Decels Provider notified regarding the variable deceleration of baby B. SE AND RECYCLING WORKER SE AND RECYCLING WORKER * Plan of Care - Jacob Juárez [...] RN who assumes care at this time. SE AND RECYCLING WORKER * Plan of Care - Ruddy Bruno RN - 12/19/2024 9:48 PM REFUSE AND RECYCLING WORKER Goal Outcome Evaluation: Pt states is comfortable, [...] while monitoring. at bedside supportive. Cares explained. SE AND RECYCLING WORKER * Plan of Care - Xochilt Wright RN - 12/19/2024 2:55 PM CST Data: Maternal status stable. assessment is appropriate for gestational age. Extended monitoring this monitoring.. Action: Continue with plan of care, which is TID and uterine monitoring. Patient encouraged to move extremities while in bed. Response: Patient coping with the plan of with family support.. SE AND RECYCLING WORKER * Plan of Care - Jacob Juárez [...] RN who assumes care at this time. SE AND RECYCLING WORKER * Plan of Care - Xochilt Wright RN - 12/18/2024 6:23 PM CST Data: Maternal status stable. assessment is normal. Action: Continue with plan of care, which is TID and uterine monitoring. Patient encouraged to move extremities while in bed. Response: Patient coping with the plan of care. W'ill notify the provider with changes.. SE AND RECYCLING WORKER * Plan of Care - Sarah Judd RN - 12/18/2024 7:01 AM CST Assumed care at 2300. Able to make needs known, offers no complaints overnight. Per patient requests to be undisturbed overnight. Goal Outcome Evaluation: Progressing, reviewed with patient. SE AND RECYCLING WORKER * Plan of Care - Madelyn Feliciano RN - 12/18/2024 12:22 AM CST Pt reports feeling well. Denies having any LOF, vag bleeding or Pre-E sx. Does c/o of nasal congestion/facial pressure since being admitted. Reports having increase in seeing flocalista MD aware. No further concerns at this time related to this. Reports good movement throughout the day. Please see labor record for details. Does have UC's towards the end of monitoring which is relieved with voiding. present and supportive. Would like to tour the NICU and discuss with POWDER WORKER baby expectations now that she is 24 weeks. This request is per availability of the NICU. Encouraged to call with needs. SE AND RECYCLING WORKER * Plan of Care - Xochilt Wright RN - 12/17/2024 4:08 AM CST Data: Maternal status is stable. assessment is appropriate for gestational age... Action: Continue with plan of care, which is TID and uterine monitoring.. Patient encouraged to move extremities while in bed. Response: Patient coping with the plan of care. W'ill notify the provider with changes.. SE AND RECYCLING WORKER * Plan of Care - Aure Ochoa RN - 12/16/2024 6:35 PM CST Pt doing well this afternoon, she has no complaints. VSS. Afebrile. Denies LOF, vaginal bleeding, cramping or contractions. Endorses + FM. Denies vision changes, RUQ pain, epigastric pain, shortness of breath, MCKEON and increased swelling. FHT's AGA x2. [facility] quiet. Patient aware to call nursing for any questions or concerns. Pt stable at this time. Continue with current POC. SE AND RECYCLING WORKER * Provider Notification - Aure Ochoa RN - 12/16/2024 12:30 PM REFUSE AND RECYCLING WORKER 12/16/24 1214 Provider Notification Provider Name/Title Dr. [...] time. Pt agreed with plan of care. SE AND RECYCLING WORKER * Provider Notification - Alexandrea Rockwell RN - 12/16/2024 10:38 AM REFUSE AND RECYCLING WORKER 12/16/24 1038 Provider Notification Provider Name/Title Dr. Leach Method of Notification Electronic Page Request Evaluate - Remote Notification Reason Decels FYI baby B had prolonged decel lasting 2 min with sherrie to 70. Per provider continue to monitor andgive 500 ml bolus. SE AND RECYCLING WORKER * Plan of Care - Narda Vegas [...] this time. Continue with plan of care. SE AND RECYCLING WORKER * Plan of Care - Aure Ochoa RN - 12/15/2024 4:35 PM CST Pt has no complaints. VSS. Afebrile. Denies LOF, vaginal bleeding, cramping or contractions. Endorses + FM. Denies vision changes, RUQ pain, epigastric pain, shortness of breath, MCKEON and increased swelling. FHTs AGA x2. [facility] quiet. Patient aware to call nursing for any questions or concerns. Pt stable at this time. Continue with current POC. SE AND RECYCLING WORKER * Plan of Care - Jackelin Barr [...] bedside. Report given to David Cotto RN. SE AND RECYCLING WORKER * Plan of Care - Pennie Draper RN - 12/14/2024 9:51 AM CST Pt offers no complaints, happy with 8 hours of sleep. 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 at bedside but will be away for work for a few hours today. Working on puzzle, reading, plans to watch some movies today. SCDs encouraged by MD paco wilburn and pt requested they be placed during monitoring. Pt will call with needs. SE AND RECYCLING WORKER * Plan of Care - Jacob Juárez [...] RN who assumes care at this time. SE AND RECYCLING WORKER * Plan of Care - Piper Hahn [...] if there is a change in status. SE AND RECYCLING WORKER SE AND RECYCLING WORKER * Plan of Care - Brandee Scuhlte RN - 12/13/2024 2:58 PM CST Patient stable with her mono/di twins, FGR and IAEDF of B. VSS; EFM as charted. Denies pain, contractions, bleeding, loss of fluid. Continue expectant management. SE AND RECYCLING WORKER * Plan of Care - Jacob Juárez [...] RN who assumes care at this time. SE AND RECYCLING WORKER * Provider Notification - Jacob Juárez RN - 12/12/2024 10:46 PM REFUSE AND RECYCLING WORKER 12/12/242140 Provider Notification Provider Name/Title Dr. Leach Method of Notification In Department Request Evaluate - Remote In department strip review, provider okay for EFM x2 to be removed. Q4 hour vitals while awake alsoapproved for pt per Dr. Leach. SE AND RECYCLING WORKER * Plan of Care - Pennie Cullen RN - 12/12/2024 7:06 PM CST Goal Outcome Evaluation: Patient has no complaints this afternoon. She has been walking in the hallways and had a few visitors. SE AND RECYCLING WORKER * Plan of Care - Brandee Schulte RN - 12/12/2024 2:46 PM CST Patient here with FGR and intermittent REDF in twin b. VSS; EFM as charted. Denies pain, contractions, bleeding, loss of fluid. Continue expectant management. SE AND RECYCLING WORKER * Provider Notification - Brandee Schulte RN - 12/12/2024 8:20 AM CST 12/12/24 0811 Provider Notification Provider Name/Title Dr Leach Method of Notification Phone Request Evaluate - Remote Notification Reason Other (Comment) Reviewed EFM strip with Dr. Leach prior to removing monitors. SE AND RECYCLING WORKER * Plan of Care - Diana Hernandez [...] questions or concerns. Call light in reach. SE AND RECYCLING WORKER * Plan of Care - Shena Eugene [...] care transferred to MAGUI Ortiz at 1923. SE AND RECYCLING WORKER * Provider Notification - Shena Eugene RN - 12/11/2024 3:46 PM REFUSE AND RECYCLING WORKER 12/11/24 1539 Provider Notification Provider Name/Title Dr. Siegel Method of Notification Electronic Page Request Evaluate - Remote Notification Reason Other (Comment) (Strip reviewed) Strip reviewed with provider in department. Provider okay with removing the EFM. SE AND RECYCLING WORKER * Provider Notification - Shena Eugene RN - 12/11/2024 3:20 PM REFUSE AND RECYCLING WORKER 12/11/24 1518 Provider Notification Provider Name/Title Christal [...] like this addressed/answered at the next visit/meeting. SE AND RECYCLING WORKER * Provider Notification - Shena Eugene RN - 12/11/2024 12:17 PM REFUSE AND RECYCLING WORKER 12/11/24 1216 Provider Notification Provider Name/Title Dr. Siegel Method of Notification Electronic Page Request Evaluate - Remote Notification Reason Patient Request Patient requested to have a review on the plan regarding her GERD. SE AND RECYCLING WORKER * Provider Notification - Shena Eugene RN - 12/11/2024 9:22 AM REFUSE AND RECYCLING WORKER 12/11/24 0853 Provider Notification Provider Name/Title Dr. Christal Sparks Method of Notification At Bedside Request Evaluate in Person Notification Reason Status Update Providers at bedside discussing the plan of care with Deandre and her spouse Los. Plan is to do TID monitoring for an hour, US x3 weekly and second dose of betamethasone tonight. SE AND RECYCLING WORKER * Provider Notification - Shena Eugene RN - 12/11/2024 8:52 AM REFUSE AND RECYCLING WORKER 12/11/24 0849 Provider Notification Provider Name/Title Dr. Waterman Method of Notification Electronic Page Request Evaluate-Remote Notification Reason Medication Request Patient would like to continue with her home regimen omeprazole 20 mg for GERD and avoid taking more medications. She refused stool softner, TUMS, and pantoprazole. SE AND RECYCLING WORKER * Plan of Care - Gilberto Welch RN - 12/11/2024 7:24 AM CST VSS. Pt denies bleeding, LOF, cramping or s/sx of pre-e. EFM for Twin A & Twin B appropriate for gestational age, see flow sheets for more. Still on continuous monitoring at this time. 2nd betamethasone to be given today. Continue observing for any s/sx of maternal or compromise. SE AND RECYCLING WORKER * Provider Notification - Gilberto Welch RN [...] to continue observing. Pt agreeable with plan. SE AND RECYCLING WORKER * Plan of Care - Beverly Lara [...] of education and verbalized agreement with plan. SE AND RECYCLING WORKER SE AND RECYCLING WORKER documented in this encounter Plan of Treatment Pending Results Name Type Priority Associated Diagnoses Date /Time Surgical Pathology Exam Pathology and Cytology Routine 12/20/2024 3:49 PM REFUSE AND RECYCLING WORKER EKG 12-lead, complete EKG STAT 12/22/2024 9:49 PM REFUSE AND RECYCLING WORKER Scheduled Orders Name Type Priority Associated Diagnoses [...] Comments PLATELET COUNT Routine 12/23/2024 8:01 AM REFUSE AND RECYCLING WORKER EXTRA TUBE Routine 12/22/2024 10:33 PM REFUSE AND RECYCLING WORKER EXTRA BLUE TOP TUBE Routine 12/22/2024 1 0:33 PM REFUSE AND RECYCLING WORKER TROPONIN T, HIGH SENSITIVITY STAT 12/22/2024 10:33 PM REFUSE AND RECYCLING WORKER CBC WITH PLATELETS STAT 12/22/2024 10 :33 PM REFUSE AND RECYCLING WORKER EKG 12-LEAD, TRACING ONLY STAT 12/22/2024 9:49 PM REFUSE AND RECYCLING WORKER TYPE AND SCREEN, ADULT Timed 9:07 AM REFUSE AND RECYCLING WORKER ABO/RH TYPE AND SCREEN Timed 9:07 AM REFUSE AND RECYCLING WORKER CBC WITH PLATELETS Timed 12/22/2024 9: 07 AM REFUSE AND RECYCLING WORKER HEMOGLOBIN Routine 12/21/2024 8:23 AM REFUSE AND RECYCLING WORKER EXTRA TUBE Routine 12/20/2024 3:53 PM REFUSE AND RECYCLING WORKER EXTRA PURPLE TOP TUBE Routine 12/20/2024 3:53 PM REFUSE AND RECYCLING WORKER CREATININE Routine 12/20/2024 3:53 PM REFUSE AND RECYCLING WORKER XR ABDOMEN PORT 1 VIEW Routine 11:40 AM REFUSE AND RECYCLING WORKER POC US GUIDANCE NEEDLE PLACEMENT Routine 12/20/2024 11:16 AM REFUSE AND RECYCLING WORKER SECTION 12/20/2024 10:4 8 AM REFUSE AND RECYCLING WORKER POC US GUIDANCE NEEDLE PLACEMENT Routine 12/20/2024 9:33 AM REFUSE AND RECYCLING WORKER TYPE AND SCREEN, ADULT Timed 8:41 AM REFUSE AND RECYCLING WORKER ABO/RH TYPE AND SCREEN Timed 8:41 AM REFUSE AND RECYCLING WORKER CBC WITH PLATELETS Timed 12/19/2024 8: 41 AM REFUSE AND RECYCLING WORKER MFM TWINS US COMPREHENSIVE F/U Routine 12/19/2024 8:22 AM REFUSE AND RECYCLING WORKER MFM TWINS US COMPREHENSIVE F/U Routine 12/17/2024 8:33 AM REFUSE AND RECYCLING WORKER TYPE AND SCREEN, ADULT Timed 11:00 AM REFUSE AND RECYCLING WORKER ABO/RH TYPE AND SCREEN Timed 11:00 AM REFUSE AND RECYCLING WORKER CBC WITH PLATELETS Timed 12/16/2024 11 :00 AM REFUSE AND RECYCLING WORKER [facility] US OB LIMITED SINGLE/MULTIPLE Routine 12/15/2024 8:15 AM REFUSE AND RECYCLING WORKER [facility] TWINS US COMPREHENSIVE F/U Routine 12/13/2024 8:06 AM REFUSE AND RECYCLING WORKER TYPE AND SCREEN, ADULT Timed 6:44 AM REFUSE AND RECYCLING WORKER ABO/RH TYPE AND SCREEN Timed 6:44 AM REFUSE AND RECYCLING WORKER CBC WITH PLATELETS Timed 12/13/2024 6: 44 AM REFUSE AND RECYCLING WORKER [facility] TWINS US COMPREHENSIVE F/U Routine 12/11/2024 8:23 AM REFUSE AND RECYCLING WORKER GROUP B STREP PCR Routine 12/10/2024 8: 49 PM REFUSE AND RECYCLING WORKER CBC WITH PLATELETS AND DIFFERENTIAL STAT 12/10/2024 5:21 PM REFUSE AND RECYCLING WORKER TYPE AND SCREEN, ADULT STAT 5:21 PM REFUSE AND RECYCLING WORKER TREPONEMA ABS W REFLEX TO RPR AND TITER STAT 12/10/2024 5:21 PM REFUSE AND RECYCLING WORKER CBC WITH PLATELETS & DIFFERENTIAL STAT 12/10/2024 5:21 PM REFUSE AND RECYCLING WORKER IRON AND IRON BINDING CAPACITY Add-On 12/10/2024 5:21 PM REFUSE AND RECYCLING WORKER FERRITIN Add-On 12/10/2024 5:21 PM REFUSE AND RECYCLING WORKER COMPREHENSIVE METABOLIC PANEL STAT 12/10/2024 5:21 PM REFUSE AND RECYCLING WORKER ABO/RH TYPE AND SCREEN STAT 5:21 PM REFUSE AND RECYCLING WORKER documented in this encounter Results * Platelet count (12/23/2024 8:01 AM REFUSE AND RECYCLING WORKER) Platelet Count 219 150 - 450 10e3/uL 12/23/2024 8:16 AM REFUSE AND RECYCLING WORKER UR LABORATORY Blood STRUCTURE OF LEFT UPPER LIMB / Unknown Venipuncture / Unknown 12/23/2024 8:01 AM REFUSE AND RECYCLING WORKER 12/23/2024 8:13 AM REFUSE AND RECYCLING WORKER us Oneil Lyons MD LAB - BLOOD ORDERABLES Final R esult UR LABORATORY [facility] Acute Care Lab [address] [place] [address], Room [place] [id number] * Extra Blue Top Tube (12/22/2024 10:33 PM REFUSE AND RECYCLING WORKER) Pathologist [facility] Hold Specimen JIC 12/22/2024 11:46 PM REFUSE AND RECYCLING WORKER UR LABORATORY Blood STRUCTURE OF RIGHT UPPER LIMB / Unknown Venipuncture / Unknown 12/22/2024 10:33 PM REFUSE AND RECYCLING WORKER 12/22/2024 10:42 PM REFUSE AND RECYCLING WORKER us Emil Ahmadi MD LAB - BLOOD ORDERABLES Fin al Result UR LABORATORY [facility] Acute Care Lab [address] [place] [address], Room [address] * (ABNORMAL) CBC with platelets (12/22/2024 10:33 PM REFUSE AND RECYCLING WORKER) WBC Count 3.6(L) 4.0 - 11.0 10e3/uL 12/22/2024 10:45 PM REFUSE AND RECYCLING WORKER UR LABORATORY RBC Count 3.78(L) 3.80 - 5.20 10e6/uL 12/22/2024 10:45 PM REFUSE AND RECYCLING WORKER UR LABORATORY Hemoglobin 9.4(L) 11.7 - 15.7 g/dL 12/22/2024 10:45 PM REFUSE AND RECYCLING WORKER UR LABORATORY Hematocrit 30.5(L) 35.0 - 47.0 % 12/22/2024 10:45 PM REFUSE AND RECYCLING WORKER UR LABORATORY MCV 81 78 - 100 fL 12/22/2024 10:45 PM REFUSE AND RECYCLING WORKER UR LABORATORY MCH 24.9(L) 26.5 - 33.0 pg 12/22/2024 10:45 PM REFUSE AND RECYCLING WORKER UR LABORATORY MCHC 30.8(L) 31.5 - 36.5 g/dL 12/22/2024 10:45 PM REFUSE AND RECYCLING WORKER UR LABORATORY RDW 18.0(H) 10.0 - 15.0 % 12/22/2024 10:45 PM REFUSE AND RECYCLING WORKER UR LABORATORY Platelet Count 219 150 - 450 10e3/uL 12/22/2024 10:45 PM REFUSE AND RECYCLING WORKER UR LABORATORY Blood STRUCTURE OF RIGHT UPPER LIMB / Unknown Venipuncture / Unknown 12/22/2024 10:33 PM REFUSE AND RECYCLING WORKER 12/22/2024 10:39 PM REFUSE AND RECYCLING WORKER us Cameron Leach MD LAB - BLOOD ORDERABLES Final Res ult UR LABORATORY [facility] Acute Care Lab [address] [facility], [address] [place] [id number] * Troponin T, High Sensitivity (12/22/2024 10:33 PM REFUSE AND RECYCLING WORKER) Troponin T, High Sensitivity <6 <=14 ng/L 12/22/2024 11:01 PM REFUSE AND RECYCLING WORKER UR LABORATORY Comment: Either a High Sensitivity [...] Unknown Venipuncture / Unknown 12/22/2024 10:33 PM REFUSE AND RECYCLING WORKER 12/22/2024 10:39 PM REFUSE AND RECYCLING WORKER us Cameron Leach MD LAB - BLOOD ORDERABLES Final Res ult UR LABORATORY [facility] Acute Care Lab [facility], Room [address] * Adult Type and Screen (12/22/2024 9:07 AM REFUSE AND RECYCLING WORKER) ABO/RH(D) O POS 12/22/2024 6:00 AM REFUSE AND RECYCLING WORKER UR BLOOD BANK Antibody Screen Negative Negative 12/22/2024 6:00 AM REFUSE AND RECYCLING WORKER UR BLOOD BANK SPECIMEN EXPIRATION DATE [id number] 12/22/2024 6:00 AM REFUSE AND RECYCLING WORKER UR BLOOD BANK Blood STRUCTURE OF RIGHT UPPER LIMB / Unknown Venipuncture / Unknown 12/22/2024 9:07 AM REFUSE AND RECYCLING WORKER 12/22/2024 9:14 AM REFUSE AND RECYCLING WORKER us Cameron Leach MD LAB - BLOOD BANK TEST ORDER Yenny l Result Performing Organization Address City/[facility]/ZIP Co de Phone Number UR BLOOD BANK [facility] Blood Components Lab [address] [place] [address], Room [address] * (ABNORMAL) CBC with platelets (12/22/2024 9:07 AM REFUSE AND RECYCLING WORKER) WBC Count 4.7 4.0 - 11.0 10e3/uL 12/22/2024 9:19 AM REFUSE AND RECYCLING WORKER UR LABORATORY RBC Count 3.92 3.80 - 5.20 10e6/uL 12/22/2024 9:19 AM REFUSE AND RECYCLING WORKER UR LABORATORY Hemoglobin 10.0(L) 11.7 - 15.7 g/dL 12/22/2024 9:19 AM REFUSE AND RECYCLING WORKER UR LABORATORY Hematocrit 31.8(L) 35.0 - 47.0 % 12/22/2024 9:19 AM REFUSE AND RECYCLING WORKER UR LABORATORY MCV 81 78 - 100 fL 12/22/2024 9:19 AM REFUSE AND RECYCLING WORKER UR LABORATORY MCH 25.5(L) 26.5 - 33.0 pg 12/22/2024 9:19 AM REFUSE AND RECYCLING WORKER UR LABORATORY MCHC 31.4(L) 31.5 - 36.5 g/dL 12/22/2024 9:19 AM REFUSE AND RECYCLING WORKER UR LABORATORY RDW 18.1(H) 10.0 - 15.0 % 12/22/2024 9:19 AM REFUSE AND RECYCLING WORKER UR LABORATORY Platelet Count 218 150 - 450 10e3/uL 12/22/2024 9:19 AM REFUSE AND RECYCLING WORKER UR LABORATORY Blood STRUCTURE OF RIGHT UPPER LIMB / Unknown Venipuncture / Unknown 12/22/2024 9:07 AM REFUSE AND RECYCLING WORKER 12/22/2024 9:14 AM REFUSE AND RECYCLING WORKER us Cameron Leach MD LAB - BLOOD ORDERABLES Final Res ult Performing Organization Address City/[facility]/ZIP Co de Phone Number UR LABORATORY [facility] Acute Care Lab [address] [place] [address], [address] * (ABNORMAL) Hemoglobin (12/21/2024 8:23 AM REFUSE AND RECYCLING WORKER) Hemoglobin 9.3(L) 11.7 - 15.7 g/dL 12/21/2024 8:41 AM REFUSE AND RECYCLING WORKER UR LABORATORY Blood BLOOD SPECIMEN / Unknown Venipuncture / Unknown 12/21/2024 8:23 AM REFUSE AND RECYCLING WORKER 12/21/2024 8:37 AM REFUSE AND RECYCLING WORKER us Oneil Lyons MD LAB - BLOOD ORDERABLES Final R esult UR LABORATORY [facility] Acute Care Lab [address] [place] [address], [address] * Extra Purple Top Tube (12/20/2024 3:53 PM REFUSE AND RECYCLING WORKER) Hold Specimen JIC 12/20/2024 5:03 PM REFUSE AND RECYCLING WORKER UR LABORATORY Blood STRUCTURE OF RIGHT UPPER LIMB / Unknown Venipuncture / Unknown 12/20/2024 3:53 PM REFUSE AND RECYCLING WORKER 12/20/2024 3:58 PM REFUSE AND RECYCLING WORKER Emil Ahmadi MD LAB - BLOOD ORDERABLES Fin al Result UR LABORATORY [facility] Acute Care Lab [address] [place] [address], Room [place] [id number] * Creatinine (12/20/2024 3:53 PM REFUSE AND RECYCLING WORKER) Creatinine 0.53 0.51 - 0.95 mg/dL 12/20/2024 4:25 PM REFUSE AND RECYCLING WORKER UR LABORATORY GFR Estimate >90 >60 mL/min/1.7 3m2 12/20/2024 4:25 PM REFUSE AND RECYCLING WORKER UR LABORATORY Comment:eGFR calculated us2020 CKD-EPI equation. Blood STRUCTURE OF RIGHT UPPER LIMB / Unknown Venipuncture / Unknown 12/20/2024 3:53 PM REFUSE AND RECYCLING WORKER 12/20/2024 3:58 PM REFUSE AND RECYCLING WORKER Oneil Lyons MD LAB - BLOOD ORDERABLES Final R esult UR LABORATORY [facility] Acute Care Lab [address] [place] [address], [address] [phone] * XR Abdomen Port 1 View (12/20/2024 11:40 AM REFUSE AND RECYCLING WORKER) Anatomical Region Laterality Modality Abdomen/Pelvis Computed Radiogr aphy Impressions 12/20/2024 11:45 AM REFUSE AND RECYCLING WORKER Impression: Curvilinear radiopacities overlying the right upper radiograph overlying the right inferior ribs, indeterminate, question external to the patient. Consider correlation. Otherwise no radiopaque instrument or needle visualized overlying the pelvis in field of view of the radiograph Finding of indeterminate radiopacity communicated to operating room personnel by Zachary at 11:30 AM 12/20/2024 MARY SHARMA MD Narrative 12/20/2024 11:45 AM REFUSE AND RECYCLING WORKER Exam: XR ABDOMEN PORT 1 VIEW, 12/20/2024 [...] at 11:30 AM 12/20/2024 MARY SHARMA MD Result [facility] Pennie Frank MD IMG DIAGNOSTIC IMAGING ORDERA BLES Final Result * POC US Guidance Needle Placement (12/20/2024 11:16 AM REFUSE AND RECYCLING WORKER) Anatomical Region Laterality Modality Other Impressions 12/20/2024 11:16 AM REFUSE AND RECYCLING WORKER Transversus abdominus plane block, bilateral Result [facility] Eneida Sanon MD IM POCUS Final Result * POC US Guidance Needle Placement (12/20/2024 9:33 AM REFUSE AND RECYCLING WORKER) Anatomical Region Laterality Modality Other Impressions 12/20/2024 9:33 AM REFUSE AND RECYCLING WORKER Bilateral transverus abdominal plane block. Narrative 12/20/2024 9:33 AM REFUSE AND RECYCLING WORKER Bilateral transverus abdominal plane block. Result [facility] Evangelina Helm MD [facility] POCUS Final Result * Adult Type and Screen (12/19/2024 8:41 AM REFUSE AND RECYCLING WORKER) ABO/RH(D) O POS 12/19/2024 6:00 AM REFUSE AND RECYCLING WORKER UR BLOOD BANK Antibody Screen Negative Negative 12/19/2024 6:00 AM REFUSE AND RECYCLING WORKER UR BLOOD BANK SPECIMEN EXPIRATION DATE [id number] 12/19/2024 6:00 AM REFUSE AND RECYCLING WORKER UR BLOOD BANK Blood BLOOD SPECIMEN / Unknown Venipuncture / Unknown 12/19/2024 8:41 AM REFUSE AND RECYCLING WORKER 12/19/2024 8:46 AM REFUSE AND RECYCLING WORKER Cameron Leach MD LAB - BLOOD BANK TEST ORDER Yenny l Result UR BLOOD BANK [facility] [place] Blood Components Lab [address] [facility], [address] [place] [address] * (ABNORMAL) CBC with platelets (12/19/2024 8:41 AM REFUSE AND RECYCLING WORKER) Pathologist [facility] WBC Count 5.7 4.0 - 11.0 10e3/uL 12/19/2024 8:49 AM REFUSE AND RECYCLING WORKER UR LABORATORY RBC Count 4.03 3.80 - 5.20 10e6/uL 12/19/2024 8:49 AM REFUSE AND RECYCLING WORKER UR LABORATORY Hemoglobin 9.8(L) 11.7 - 15.7 g/dL 12/19/2024 8:49 AM REFUSE AND RECYCLING WORKER UR LABORATORY Hematocrit 32.3(L) 35.0 - 47.0 % 12/19/2024 8:49 AM REFUSE AND RECYCLING WORKER UR LABORATORY MCV 80 78 - 100 fL 12/19/2024 8:49 AM REFUSE AND RECYCLING WORKER UR LABORATORY MCH 24.3(L) 26.5 - 33.0 pg 12/19/2024 8:49 AM REFUSE AND RECYCLING WORKER UR LABORATORY MCHC 30.3(L) 31.5 - 36.5 g/dL 12/19/2024 8:49 AM REFUSE AND RECYCLING WORKER UR LABORATORY RDW 16.8(H) 10.0 - 15.0 % 12/19/2024 8:49 AM REFUSE AND RECYCLING WORKER UR LABORATORY Platelet Count 215 150 - 450 10e3/uL 12/19/2024 8:49 AM REFUSE AND RECYCLING WORKER UR LABORATORY Blood BLOOD SPECIMEN / Unknown Venipuncture / Unknown 12/19/2024 8:41 AM REFUSE AND RECYCLING WORKER 12/19/2024 8:47 AM REFUSE AND RECYCLING WORKER Cameron Leach MD LAB - BLOOD ORDERABLES Final Res ult UR LABORATORY [facility] Acute Care Lab [address] [facility], [address] [place] [address], [facility] * MFM Twins US Comprehensive F/U (12/19/2024 8:22 AM REFUSE AND RECYCLING WORKER) Anatomical Region Laterality Modality Ultrasound 12/19/2024 7:12 AM REFUSE AND RECYCLING WORKER Impressions 12/19/2024 8:29 AM REFUSE AND RECYCLING WORKER IMPRESSION ----- Monochorionic diamniotic twin gestation with [...] of twin 2. Narrative 12/19/2024 8:29 AM REFUSE AND RECYCLING WORKER Surveillance US ----- Pat. Name: DEANDRE CHÁVEZ Study Date: 12/19/2024 7:12am Pat. NO: [id number] Referring MD: PAMELA CUELLAR Site: Necktie Operator Pockets And Pieces: Piper Huynh RDMS : 1995 Age: 29 ----- INDICATION ----- INPATIENT Abnormal UA Doppler and Ductus Venosus waveforms Monochorionic-Diamniotic Twin Gestation Selective Growth Restriction (FGR) fetus 2 Circumvallate placenta METHOD ----- [facility] ANTEPARTUM inpatient exam. Transabdominal ultrasound examination. [...] CHÁVEZ Study Date: 12/19/2024 7:12am Pat. NO: [id number] Referring MD: PAMELA CUELLAR Site: Necktie Operator Pockets And Pieces: Piper Huynh RDMS : 1995 Age: 29 ----- INDICATION ----- INPATIENT Abnormal UA Doppler and Ductus Venosus waveforms Monochorionic-Diamniotic Twin Gestation Selective Growth Restriction (FGR) fetus 2 Circumvallate placenta METHOD ----- [facility] ANTEPARTUM inpatient exam. Transabdominal ultrasound examination.View: [...] twin 2. us Joceline Grant MD Zak [facility] US ORDERABLES Edited Res ult - Final * [facility] Twins US Comprehensive F/U (12/17/2024 8:33 AM REFUSE AND RECYCLING WORKER) Anatomical Region Laterality Modality Ultrasound 12/17/2024 7:09 AM REFUSE AND RECYCLING WORKER Impressions 12/17/2024 9:32 AM REFUSE AND RECYCLING WORKER IMPRESSION ----- Monochorionic diamniotic twin gestation [...] in some areas. Narrative 12/17/2024 9:32 AM REFUSE AND RECYCLING WORKER Comp Follow Up ----- Pat. Name: DEANDRE CHÁVEZ Study Date: 12/17/2024 7:09am Pat. NO: [id number] Referring MD: PAMELA CUELLAR Site: Necktie Operator Pockets And Pieces: Claudia Arauz RDMS : 1995 Age: 29 ----- INDICATION ----- INPATIENT Abnormal UA Doppler and Ductus Venosus waveforms Monochorionic-Diamniotic Twin Gestation Selective Growth Restriction (FGR) fetus 2 Circumvallate placenta METHOD ----- [facility] ANTEPARTUM inpatient exam. Transabdominal ultrasound examination. [...] 1 lb 8 oz EFW by Hadlock ([id number]) EFW discordance 33.0 % Head / Face / Neck Biometry: Rail Assembler 7.8 mm CM 2.9 mm Fetus 2: [...] 1 lb 0 oz EFW by Hadlock ([id number]) EFW discordance 33.0 % Head / Face / Neck Biometry: Rail Assembler 7.9 mm CM 2.9 mm Extremities / [...] Heart / Thorax 4-chamber view. RVOT view. 0-cwupgx-xlwapva view. sex: female. Fetus 2: ANATOMY ----- The following structures appear normal: Head / Neck Cranium. Head size. Head shape. Lateral ventricles. Midline falx. Cavum septi pellucidi. Cerebellum. Cisterna magna. Face Lips. Profile. Nose. Heart / Thorax 4-chamber view. RVOT view. LVOT view. 7-xrtelb-ahuzplf view. Diaphragm. Abdomen Stomach. Kidneys. Bladder. Spine [...] CHÁVEZ Study Date: 12/17/2024 7:09am Pat. NO: [id number] Referring MD: PAMELA CUELLAR Site: Necktie Operator Pockets And Pieces: Claudia Arauz RDMS : 1995 Age: 29 ----- INDICATION ----- INPATIENT Abnormal UA Doppler and Ductus Venosus waveforms Monochorionic-Diamniotic Twin Gestation Selective Growth Restriction (FGR) fetus 2 Circumvallate placenta METHOD ----- [facility] ANTEPARTUM inpatient exam. Transabdominal ultrasound examination.View: Sufficient [...] EFW (lb,oz) 1 lb 8oz EFW by Hadlock([id number]) EFW discordance 33.0% Head / Face / Neck Biometry: Rail Assembler 7.8mm CM 2.9mm Fetus 2: BIOMETRY ----- BPD 56.3mm 23w 1dHadlock OFD 74.5mm 22w 6dNicolaides HC 208.0mm 22w 6dHadlock Cerebellum tr 25.2mm 23w 1dNicolaides AC 172.0mm 22w 1d 3%Hadlock Femur 35.8mm 21w 2dHadlock Humerus 31.7mm 20w 4dJeanty Weight Calculation: EFW 464g <1%Hadlock EFW (lb,oz) 1 lb 0oz EFW by Hadlock([id number]) EFW discordance 33.0% Head / Face / Neck Biometry: Rail Assembler 7.9mm CM 2.9mm Extremities / Bony Struc [...] previously: Heart / Thorax 4-chamber view. RVOT view.4-[id number]-[id number] view. sex: female. Fetus 2: ANATOMY ----- The following structures appear normal: Head / Neck Cranium. Head size. Head shape.Lateral ventricles. Midline falx. Cavum septi pellucidi. Cerebellum.Cisterna magna. Face Lips. Profile. Nose. Heart / Thorax 4-chamber view. RVOT view. LVOT view.5-mzygqa-bdtsnvs view. Diaphragm. Abdomen Stomach. Kidneys. Bladder. Spine [...] circumvallate in some areas. Guevara Amin MD [facility] US ORDERABLES Edited Res ult - Final * Adult Type and Screen (12/16/2024 11:00 AM REFUSE AND RECYCLING WORKER) ABO/RH(D) O POS 12/16/2024 6:00 AM REFUSE AND RECYCLING WORKER UR BLOOD BANK Antibody Screen Negative Negative 12/16/2024 6:00 AM REFUSE AND RECYCLING WORKER UR BLOOD BANK SPECIMEN EXPIRATION DATE [id number] 12/16/2024 6:00 AM REFUSE AND RECYCLING WORKER UR BLOOD BANK Blood BLOOD SPECIMEN / Unknown Venipuncture / Unknown 12/16/2024 11:00 AM REFUSE AND RECYCLING WORKER 12/16/2024 11:04 AM REFUSE AND RECYCLING WORKER Cameron Leach MD LAB - BLOOD BANK TEST ORDER Yenny l Result UR BLOOD BANK [facility] [place] Blood Components Lab [address] [facility], [address] [id number] * (ABNORMAL) CBC with platelets (12/16/2024 11:00 AM REFUSE AND RECYCLING WORKER) WBC Count 6.3 4.0 - 11.0 10e3/uL 12/16/2024 11:09 AM REFUSE AND RECYCLING WORKER UR LABORATORY RBC Count 3.92 3.80 - 5.20 10e6/uL 12/16/2024 11:09 AM REFUSE AND RECYCLING WORKER UR LABORATORY Hemoglobin 9.4(L) 11.7 - 15.7 g/dL 12/16/2024 11:09 AM REFUSE AND RECYCLING WORKER UR LABORATORY Hematocrit 30.7(L) 35.0 - 47.0 % 12/16/2024 11:09 AM REFUSE AND RECYCLING WORKER UR LABORATORY MCV 78 78 - 100 fL 12/16/2024 11:09 AM REFUSE AND RECYCLING WORKER UR LABORATORY MCH 24.0(L) 26.5 - 33.0 pg 12/16/2024 11:09 AM REFUSE AND RECYCLING WORKER UR LABORATORY MCHC 30.6(L) 31.5 - 36.5 g/dL 12/16/2024 11:09 AM REFUSE AND RECYCLING WORKER UR LABORATORY RDW 15.1(H) 10.0 - 15.0 % 12/16/2024 11:09 AM REFUSE AND RECYCLING WORKER UR LABORATORY Platelet Count 207 150 - 450 10e3/uL 12/16/2024 11:09 AM REFUSE AND RECYCLING WORKER UR LABORATORY Blood BLOOD SPECIMEN / Unknown Venipuncture / Unknown 12/16/2024 11:00 AM REFUSE AND RECYCLING WORKER 12/16/2024 11:05 AM REFUSE AND RECYCLING WORKER us Cameron Leach MD LAB - BLOOD ORDERABLES Final Res ult UR LABORATORY [facility] Acute Care Lab [address] [facility], [address] [place] [address], [facility] * Maternal US OB Limited Single/Multiple (12/15/2024 8:15 AM REFUSE AND RECYCLING WORKER) Anatomical Region Laterality Modality Ultrasound 12/15/2024 7:38 AM REFUSE AND RECYCLING WORKER Impressions 12/15/2024 10:58 AM REFUSE AND RECYCLING WORKER IMPRESSION ----- Monochorionic diamniotic twin gestation with [...] anemia polycythemia syndrome. Narrative 12/15/2024 10:58 AM REFUSE AND RECYCLING WORKER Surveillance ----- Pat. Name: DEANDRE CHÁVEZ Study Date: 12/15/2024 7:38am Pat. NO: [id number] Referring MD: PAMELA CUELLAR Site: Necktie Operator Pockets And Pieces: Chantell Jarquin RDMS : 1995 Age: 29 ----- INDICATION ----- INPATIENT Abnormal UA Doppler and Ductus Venosus waveforms Monochorionic-Diamniotic Twin Gestation Selective Growth Restriction (FGR) fetus 2 Circumvallate placenta METHOD ----- [facility] ANTEPARTUM inpatient exam, Transabdominal ultrasound examination. [...] CHÁVEZ Study Date: 12/15/2024 7:38am Pat. NO: [id number] Referring MD: PAMELA CUELLAR Site: Necktie Operator Pockets And Pieces: Chantell Jarquin RDMS : 1995 Age: 29 ----- INDICATION ----- INPATIENT Abnormal UA Doppler and Ductus Venosus waveforms Monochorionic-Diamniotic Twin Gestation Selective Growth Restriction (FGR) fetus 2 Circumvallate placenta METHOD ----- [facility] ANTEPARTUM inpatient exam, Transabdominal ultrasound examination.View: [...] or twin anemia polycythemia syndrome. us Guevara RAE [facility] US ORDERABLES Edited Res ult - Final * [facility] Twins US Comprehensive F/U (12/13/2024 8:06 AM REFUSE AND RECYCLING WORKER) Anatomical Region Laterality Modality Ultrasound 12/13/2024 7:10 AM REFUSE AND RECYCLING WORKER Impressions 12/13/2024 9:19 AM REFUSE AND RECYCLING WORKER IMPRESSION ----- Monochorionic diamniotic twin gestation [...] anemia polycythemia syndrome. Narrative 12/13/2024 9:19 AM [facility] Surveillance US ----- Pat. Name: DEANDRE CHÁVEZ Study Date: 12/13/2024 7:10am Pat. NO: [id number] Referring MD: PAMELA CUELLAR Site: Necktie Operator Pockets And Pieces: Claudia Arauz RDMS : 1995 Age: 29 ----- INDICATION ----- INPATIENT Abnormal UA Doppler and Ductus Venosus waveforms Monochorionic-Diamniotic Twin Gestation Selective Growth Restriction (FGR) fetus 2 Circumvallate placenta METHOD ----- [facility] ANTEPARTUM inpatient exam. Transabdominal ultrasound examination. [...] CHÁVEZ Study Date: 12/13/2024 7:10am Pat. NO: [id number] Referring MD: PAMELA CUELLAR Site: Necktie Operator Pockets And Pieces: Claudia Arauz RDMS : 1995 Age: 29 ----- INDICATION ----- INPATIENT Abnormal UA Doppler and Ductus Venosus waveforms Monochorionic-Diamniotic Twin Gestation Selective Growth Restriction (FGR) fetus 2 Circumvallate placenta METHOD ----- [facility] ANTEPARTUM inpatient exam. Transabdominal ultrasound examination.View: [...] twin anemia polycythemia syndrome. Guevara Amin MD [facility] US ORDERABLES Edited Res ult - Final * Adult Type and Screen (12/13/2024 6:44 AM REFUSE AND RECYCLING WORKER) ABO/RH(D) O POS 12/13/2024 6:00 AM REFUSE AND RECYCLING WORKER UR BLOOD BANK Antibody Screen Negative Negative 12/13/2024 6:00 AM REFUSE AND RECYCLING WORKER UR BLOOD BANK SPECIMEN EXPIRATION DATE [id number] 12/13/2024 6:00 AM REFUSE AND RECYCLING WORKER UR BLOOD BANK Blood STRUCTURE OF RIGHT UPPER LIMB / Unknown Venipuncture / Unknown 12/13/2024 6:44 AM REFUSE AND RECYCLING WORKER 12/13/2024 6:55 AM REFUSE AND RECYCLING WORKER Cameron Leach MD LAB - BLOOD BANK TEST ORDER Yenny l Result UR BLOOD BANK [facility] [place] Blood [facility]onents Lab [address] [facility], [address] [place] [address] * (ABNORMAL) CBC with platelets (12/13/2024 6:44 AM REFUSE AND RECYCLING WORKER) WBC Count 5.8 4.0 - 11.0 10e3/uL 12/13/2024 7:01 AM REFUSE AND RECYCLING WORKER UR LABORATORY RBC Count 3.65(L) 3.80 - 5.20 10e6/uL 12/13/2024 7:01 AM REFUSE AND RECYCLING WORKER UR LABORATORY Hemoglobin 9.1(L) 11.7 - 15.7 g/dL 12/13/2024 7:01 AM REFUSE AND RECYCLING WORKER UR LABORATORY Hematocrit 28.7(L) 35.0 - 47.0 % 12/13/2024 7:01 AM REFUSE AND RECYCLING WORKER UR LABORATORY MCV 79 78 - 100 fL 12/13/2024 7:01 AM REFUSE AND RECYCLING WORKER UR LABORATORY MCH 24.9(L) 26.5 - 33.0 pg 12/13/2024 7:01 AM REFUSE AND RECYCLING WORKER UR LABORATORY MCHC 31.7 31.5 - 36.5 g/dL 12/13/2024 7:01 AM REFUSE AND RECYCLING WORKER UR LABORATORY RDW 15.0 10.0 - 15.0 % 12/13/2024 7:01 AM REFUSE AND RECYCLING WORKER UR LABORATORY Platelet Count 190 150 - 450 10e3/uL 12/13/2024 7:01 AM REFUSE AND RECYCLING WORKER UR LABORATORY Blood STRUCTURE OF RIGHT UPPER LIMB / Unknown Venipuncture / Unknown 12/13/2024 6:44 AM REFUSE AND RECYCLING WORKER 12/13/2024 6:58 AM REFUSE AND RECYCLING WORKER us Cameron Leach MD LAB - BLOOD ORDERABLES Final Res ult UR LABORATORY [facility] Acute Care Lab [address] [facility], [address] [place] [address], [facility] * MFM Twins US Comprehensive F/U (12/11/2024 8:23 AM REFUSE AND RECYCLING WORKER) Anatomical Region Laterality Modality Ultrasound 12/11/2024 7:19 AM REFUSE AND RECYCLING WORKER Impressions 12/11/2024 9:51 AM REFUSE AND RECYCLING WORKER IMPRESSION ----- Monochorionic diamniotic twin gestation [...] anemia polycythemia syndrome. Narrative 12/11/2024 9:51 AM [facility] Surveillance US ----- Pat. Name: DEANDRE CHÁVEZ Study Date: 12/11/2024 7:19am Pat. NO: [id number] Referring MD: PAMELA CUELLAR Site: Necktie Operator Pockets And Pieces: Catrachita Erazo RDMS : 1995 Age: 29 ----- INDICATION ----- Abnormal UA Doppler and Ductus Venosus waveforms Monochorionic-Diamniotic Twin Gestation Selective Growth Restriction (FGR) fetus 2 Circumvallate placenta METHOD ----- [facility] ANTEPARTUM inpatient exam, Transabdominal and transvaginal ultrasound [...] CHÁVEZ Study Date: 12/11/2024 7:19am Pat. NO: [id number] Referring MD: PAMELA CUELLAR Site: Necktie Operator Pockets And Pieces: Catrachita Erazo RDMS : 1995 Age: 29 ----- INDICATION ----- Abnormal UA Doppler and Ductus Venosus waveforms Monochorionic-Diamniotic Twin Gestation Selective Growth Restriction (FGR) fetus 2 Circumvallate placenta METHOD ----- [facility] ANTEPARTUM inpatient exam, Transabdominal and transvaginal ultrasoundapproaches [...] polycythemia syndrome. us Jenny De Souza MD [facility] US ORDERABLES Edited Re sult - Final * (ABNORMAL) Group B strep PCR (12/10/2024 8:49 PM REFUSE AND RECYCLING WORKER) Group B Strep PCR Positive( A) Negative 12/11/2024 7:23 PM REFUSE AND RECYCLING WORKER [facility] Comment:ALERT: Streptococcus agalactiae (Group B Streptococcus) has a high rate of resistance to clindamycin. Therefore, clindamycin is not recommended for treatment unless susceptibility testing has been performed. Swab STRUCTURE OF RECTOVAGINAL SEPTUM / Unknown Non-blood Collection / Unknown 12/10/2024 8:49 PM REFUSE AND RECYCLING WORKER 12/10/2024 8:55 PM REFUSE AND RECYCLING WORKER Narrative [facility] - 12/11/2024 7:23 PM REFUSE AND RECYCLING WORKER The CepNoFloid Xpert GBS LB Assay, performed on the [employer], is a qualitative in vitro diagnostic [...] or monitor treatment for GBS infections. The Cepheid Xpert GBS LB Assay is intended for use in hospital, reference or state laboratory settings. The device is not intended for qfiag-hd-bvja use. us Jenny De Souza MD LAB - MICRO GENERAL ORDERABLES Final Result [facility] Inf. Diseases Diag. Lab [address] [facility], [address] [place] [phone] * Ferritin (12/10/2024 5:21 PM REFUSE AND RECYCLING WORKER) Ferritin 15 6 - 175 ng/mL 12/11/2024 4:00 AM REFUSE AND RECYCLING WORKER UR LABORATORY Blood STRUCTURE OF RIGHT HAND / Unknown Venipuncture / Unknown 12/10/2024 5:21 PM REFUSE AND RECYCLING WORKER 12/10/2024 5:25 PM REFUSE AND RECYCLING WORKER us Cameron Leach MD LAB - BLOOD ORDERABLES Final Res ult UR LABORATORY [facility] Acute Care Lab [facility], Room [address] [address] * (ABNORMAL) Iron and iron binding capacity (12/10/2024 5:21 PM REFUSE AND RECYCLING WORKER) Iron 20(L) 37 - 145 ug/dL 12/11/2024 4:00 AM REFUSE AND RECYCLING WORKER UR LABORATORY Iron Binding Capacity 398 240 - 430 ug/dL 12/11/2024 4:00 AM REFUSE AND RECYCLING WORKER UR LABORATORY Iron Sat Index 5(L) 15 - 46 % 12/11/2024 4:00 AM REFUSE AND RECYCLING WORKER UR LABORATORY Blood STRUCTURE OF RIGHT HAND / Unknown Venipuncture / Unknown 12/10/2024 5:21 PM REFUSE AND RECYCLING WORKER 12/10/2024 5:25 PM REFUSE AND RECYCLING WORKER us Cameron Leach MD LAB - BLOOD ORDERABLES Final Res ult Performing Organization Address City/[facility]/ZIP Co de Phone Number UR LABORATORY [facility] Acute Care Lab [address] [place] [address], [address] [address] * Adult Type and Screen (12/10/2024 5:21 PM REFUSE AND RECYCLING WORKER) ABO/RH(D) O POS 12/10/2024 4:51 PM REFUSE AND RECYCLING WORKER UR BLOOD BANK Antibody Screen Negative Negative 12/10/2024 4:51 PM REFUSE AND RECYCLING WORKER UR BLOOD BANK SPECIMEN EXPIRATION DATE [id number] 12/10/2024 4:51 PM REFUSE AND RECYCLING WORKER UR BLOOD BANK Blood STRUCTURE OF RIGHT HAND / Unknown Venipuncture / Unknown 12/10/2024 5:21 PM REFUSE AND RECYCLING WORKER 12/10/2024 5:25 PM REFUSE AND RECYCLING WORKER us Jenny De Souza MD LAB - BLOOD BANK TEST ORDER Fin al Result UR BLOOD BANK [facility] Blood Components Lab [address] [place] [address], [address] [address] * (ABNORMAL) CBC with platelets and differential (12/10/2024 5:21 PM REFUSE AND RECYCLING WORKER) Pathologist [facility] WBC Count 5.7 4.0 - 11.0 10e3/uL 12/10/2024 5:32 PM REFUSE AND RECYCLING WORKER UR LABORATORY RBC Count 4.15 3.80 - 5.20 10e6/uL 12/10/2024 5:32 PM REFUSE AND RECYCLING WORKER UR LABORATORY Hemoglobin 10.0(L) 11.7 - 15.7 g/dL 12/10/2024 5:32 PM REFUSE AND RECYCLING WORKER UR LABORATORY Hematocrit 32.4(L) 35.0 - 47.0 % 12/10/2024 5:32 PM REFUSE AND RECYCLING WORKER UR LABORATORY MCV 78 78 - 100 fL 12/10/2024 5:32 PM REFUSE AND RECYCLING WORKER UR LABORATORY MCH 24.1(L) 26.5 - 33.0 pg 12/10/2024 5:32 PM REFUSE AND RECYCLING WORKER UR LABORATORY MCHC 30.9(L) 31.5 - 36.5 g/dL 12/10/2024 5:32 PM REFUSE AND RECYCLING WORKER UR LABORATORY RDW 15.0 10.0 - 15.0 % 12/10/2024 5:32 PM REFUSE AND RECYCLING WORKER UR LABORATORY Platelet Count 220 150 - 450 10e3/uL 12/10/2024 5:32 PM REFUSE AND RECYCLING WORKER UR LABORATORY % Neutrophils 69 % 12/10/2024 5:32 PM REFUSE AND RECYCLING WORKER UR LABORATORY % Lymphocytes 24 % 12/10/2024 5:32 PM REFUSE AND RECYCLING WORKER UR LABORATORY % Monocytes 6 % 12/10/2024 5:32 PM REFUSE AND RECYCLING WORKER UR LABORATORY % Eosinophils 0 % 12/10/2024 5:32 PM REFUSE AND RECYCLING WORKER UR LABORATORY % Basophils 0 % 12/10/2024 5:32 PM REFUSE AND RECYCLING WORKER UR LABORATORY % Immature Granulocytes 0 % 12/10/2024 5:32 PM REFUSE AND RECYCLING WORKER UR LABORATORY NRBCs per 100 WBC 0 <1 /100 025 5:32 PM REFUSE AND RECYCLING WORKER UR LABORATORY Absolute Neutrophils 3.9 1.6 - 8.3 10e3/uL 12/10/2024 5:32 PM REFUSE AND RECYCLING WORKER UR LABORATORY Absolute Lymphocytes 1.4 0.8 - 5.3 10e3/uL 12/10/2024 5:32 PM REFUSE AND RECYCLING WORKER UR LABORATORY Absolute Monocytes 0.3 0.0 - 1.3 10e3/uL 12/10/2024 5:32 PM REFUSE AND RECYCLING WORKER UR LABORATORY Absolute Eosinophils 0.0 0.0 - 0.7 10e3/uL 12/10/2024 5:32 PM REFUSE AND RECYCLING WORKER UR LABORATORY Absolute Basophils 0.0 0.0 - 0.2 10e3/uL 12/10/2024 5:32 PM REFUSE AND RECYCLING WORKER UR LABORATORY Absolute Immature Granulocytes 0.0 <=0.4 10e3/uL 12/10/2024 5:32 PM REFUSE AND RECYCLING WORKER UR LABORATORY Absolute NRBCs 0.0 10e3/uL 12/10/2024 5:32 PM REFUSE AND RECYCLING WORKER UR LABORATORY Blood STRUCTURE OF RIGHT HAND / Unknown Venipuncture / Unknown 12/10/2024 5:21 PM REFUSE AND RECYCLING WORKER 12/10/2024 5:25 PM REFUSE AND RECYCLING WORKER us Jenny De Souza MD LAB - BLOOD ORDERABLES Final Re sult UR LABORATORY [facility] Acute Care Lab [address] [facility], [address] [place] [address] * Treponema Abs w Reflex to RPR and Titer (12/10/2024 5:21 PM REFUSE AND RECYCLING WORKER) Treponema Antibody Total Nonreactive Nonreactive 12/10/2024 10:44 PM REFUSE AND RECYCLING WORKER SPECIALTY CORE/PROT/EN DO Blood STRUCTURE OF RIGHT HAND / Unknown Venipuncture / Unknown 12/10/2024 5:21 PM REFUSE AND RECYCLING WORKER 12/10/2024 5:25 PM REFUSE AND RECYCLING WORKER us Jenny De Souza MD LAB - BLOOD ORDERABLES Final Re sult [facility] SPECIALTY CORE/PROT/ENDO Specialty Core/Prot/Endo [address] [facility], [phone] * (ABNORMAL) Comprehensive metabolic panel (12/10/2024 5:21 PM REFUSE AND RECYCLING WORKER) Sodium 136 135 - 145 mmol/L 12/10/2024 5:53 PM REFUSE AND RECYCLING WORKER UR LABORATORY Potassium 3.9 3.4 - 5.3 mmol/L 12/10/2024 5:53 PM REFUSE AND RECYCLING WORKER UR LABORATORY Carbon Dioxide (CO2) 21(L) 22 - 29 mmol/L 12/10/2024 5:53 PM REFUSE AND RECYCLING WORKER UR LABORATORY Anion Gap 11 7 - 15 mmol/L 12/10/2024 5:53 PM REFUSE AND RECYCLING WORKER UR LABORATORY Urea Nitrogen 8.4 6.0 - 20.0 mg/dL 12/10/2024 5:53 PM REFUSE AND RECYCLING WORKER UR LABORATORY Creatinine 0.51 0.51 - 0.95 mg/dL 12/10/2024 5:53 PM REFUSE AND RECYCLING WORKER UR LABORATORY GFR Estimate >90 >60 mL/min/1.7 3m2 12/10/2024 5:53 PM REFUSE AND RECYCLING WORKER UR LABORATORY Comment:eGFR calculated us2020 CKD-EPI equation. Calcium 8.9 8.8 - 10.4 mg/dL 12/10/2024 5:53 PM REFUSE AND RECYCLING WORKER UR LABORATORY Chloride 104 98 - 107 mmol/L 12/10/2024 5:53 PM REFUSE AND RECYCLING WORKER UR LABORATORY Glucose 79 70 - 99 mg/dL 12/10/2024 5:53 PM REFUSE AND RECYCLING WORKER UR LABORATORY Alkaline Phosphatase 76 40 - 150 U/L 12/10/2024 5:53 PM REFUSE AND RECYCLING WORKER UR LABORATORY AST 21 0 - 45 U/L 12/10/2024 5:53 PM REFUSE AND RECYCLING WORKER UR LABORATORY ALT 16 0 - 50 U/L 12/10/2024 5:53 PM REFUSE AND RECYCLING WORKER UR LABORATORY Protein Total 6.5 6.4 - 8.3 g/dL 12/10/2024 5:53 PM REFUSE AND RECYCLING WORKER UR LABORATORY Albumin 3.5 3.5 - 5.2 g/dL 12/10/2024 5:53 PM REFUSE AND RECYCLING WORKER UR LABORATORY Bilirubin Total 0.3 <=1.2 mg/dL 12/10/2024 5:53 PM REFUSE AND RECYCLING WORKER UR LABORATORY Blood STRUCTURE OF RIGHT HAND / Unknown Venipuncture / Unknown 12/10/2024 5:21 PM REFUSE AND RECYCLING WORKER 12/10/2024 5:25 PM REFUSE AND RECYCLING WORKER us Jenny De Souza MD LAB - BLOOD ORDERABLES Final Re sult UR LABORATORY [facility] Acute Care Lab [address] [facility], [address] [place] [address], [facility] documented in this encounter Visit Diagnoses Not on filedocumented in this encounter Admitting Diagnoses Diagnosis Monochorionic diamniotic twin , antepartum Twin , antepartum documented in this encounter Administered Medications Inactive Administered Medications - up to 3 most recent administrations Medication Order MAR Action Action Date Dose Rate Site acetaminophen (TYLENOL) tablet 975 mg 975 mg, Oral, EVERY 6 HOURS, First dose on Yarelis 12/20/24 at 1400, Start 6 hours after pre-op dose (if given) Maximum acetaminophen dose from all sources = 75 mg/kg/day not to exceed 4 grams/day. $Given 12/22/2024 8:02 PM REFUSE AND RECYCLING WORKER 975 mg $Given 12/22/2024 1:57 PM REFUSE AND RECYCLING WORKER 975 mg $Given 12/22/2024 4:22 AM REFUSE AND RECYCLING WORKER 975 mg BioGaia Probiotic MISC 1 capsule 1 capsule, Oral, DAILY, First dose (after last modification) on Tue12/14/24 at 0800, Patient-supplied home medication. Verified by two Pharmacists (initials ALLI and PLACIDO). Store in medication room on patient unit. Send medication home with patient on discharge. $Given 12/19/2024 2:32 PM REFUSE AND RECYCLING WORKER 1 capsule $Given 12/16/2024 3:18 PM REFUSE AND RECYCLING WORKER 1 capsule $Given 12/15/2024 2:19 PM REFUSE AND RECYCLING WORKER 1 capsule BUPivacaine liposome (EXPAREL) LA inj [...] 12/22/24 at 1519 $Given 12/23/2024 10:57 AM REFUSE AND RECYCLING WORKER 1,000 mg $Given 12/23/2024 3:31 AM REFUSE AND RECYCLING WORKER 1,000 mg carboprost (HEMABATE) injection 250 mcg 250 [...] heart burn, Starting on 12/16/24 at 1130 hydrOXYzine HCl (ATARAX) tablet 25 mg 25 [...] Give with food. $Given 12/23/2024 11:42 AM REFUSE AND RECYCLING WORKER 800 mg $Given 12/22/2024 11:19 PM REFUSE AND RECYCLING WORKER 800 mg $Given 12/22/2024 3:22 PM REFUSE AND RECYCLING WORKER 800 mg loperamide (IMODIUM) capsule 4 mg 4 mg, Oral, ONCE PRN, other, Give with first dose of carboprost (HEMABATE), Starting on Yarelis 12/20/24 at 1338, For 1 dose, May give only after delivery. metoclopramide (REGLAN) injection 10 mg 10 mg, [...] Tue12/11/24 at 0930 $Given 12/23/2024 10:57 AM REFUSE AND RECYCLING WORKER 20 mg $Given 12/22/2024 9:04 AM REFUSE AND RECYCLING WORKER 20 mg $Given 12/21/2024 8:11 AM REFUSE AND RECYCLING WORKER 20 mg ondansetron (ZOFRAN ODT) ODT tab [...] 15 minutes, go to Step 3 (Compazine). prochlorperazine (COMPAZINE) injection 10 mg 10 mg, [...] minutes, notify provider. prochlorperazine (COMPAZINE) tablet 10 mg 10 mg, [...] for loose stools. $Given 12/21/2024 9:14 PM REFUSE AND RECYCLING WORKER 1 tablet $Given 12/21/2024 8:11 AM REFUSE AND RECYCLING WORKER 1 tablet senna-docusate (SENOKOT-S/PERICOLACE) 8.6-50 MG per tablet 2 tablet 2 tablet, Oral, 2 TIMES DAILY, First dose on Tue12/20/24 at 2000, Hold for loose stools. Preferred agent for constipation related to opioids. Hold for loose stools. $Given 12/20/2024 8:11 PM REFUSE AND RECYCLING WORKER 2 tablets simethicone (MYLICON) chewable tablet 80 mg 80 mg, Oral, 4 TIMES DAILY PRN, other, gas, Starting on Tue12/20/24 at 1338, Chew. $Given 12/22/2024 8:05 PM REFUSE AND RECYCLING WORKER 80 mg $Given 12/22/2024 12:24 AM REFUSE AND RECYCLING WORKER 80 mg $Given 12/21/2024 6:18 PM REFUSE AND RECYCLING WORKER 80 mg sodium chloride (OCEAN) 0.65 % nasal spray 1 spray 1 spray, Both Nostrils, EVERY 1 HOUR PRN, congestion, Starting on Tue12/18/24 at 2111 sodium chloride (PF) 0.9% PF flush 3 mL 3 mL, Intracatheter, EVERY 8 HOURS, First dose on Tue12/12/24 at 1700 $Given 12/21/2024 5:11 AM REFUSE AND RECYCLING WORKER 3 mLs $Given 12/20/2024 10:49 PM REFUSE AND RECYCLING WORKER 3 mLs $Given 12/20/2024 8:31 AM REFUSE AND RECYCLING WORKER 3 mLs sodium chloride (PF) 0.9% PF flush 3 mL 3 mL, Intracatheter, EVERY 8 HOURS, First dose on Tue12/20/24 at 1400, to lock peripheral IV dormant line $Given 12/22/2024 12:26 AM REFUSE AND RECYCLING WORKER 3 mLs sucralfate (CARAFATE) suspension 1 g 1 g, Oral, 3 TIMES DAILY PRN, other, patient request, Starting on Tue12/11/24 at 0925, Shake well. Recommended to take before meals. documented in this encounter Active and Recently Administered Medications Times are shown in REFUSE AND RECYCLING WORKER. Scheduled Medication Order 12/21/2024 12/22/2024 12/23/2024 acetaminophen [...] Pinon RN) 0024 ($Given - Provider: Radhika Alarcon, MAGUI)0904 ($Given - Provider: Nena Ren RN)1522 ($Given - Provider: Nnea Ren RN)2319 ($Given - Provider: Madiha Carmona [...] TIMES DAILY, First dose on Tue12/20/24 at 1999, If no bowel movement in 24 hours, increase to 2 tablets PO. Hold for loose stools. Preferred agent for constipation related to opioids. Hold for loose stools. 0811 ($Given - Provider: Nena Ren RN)2114 ($Given - Provider: Radhika Alarcon RN) 1014 (Not Given - Provider: Nena Ren [...] Intracatheter, EVERY 8 HOURS, First dose on Yarelis 12/20/24 at 1400, to lock peripheral IV dormant line 0509 (Not Given - Provider: Denita Farrar RN - Reason: Other)1400 (Not Given - Provider: Nena Ren RN - Reason: Patient sleeping) 0026 ($Given - Provider: Radhika Alarcon RN)1015 (Not [...] at 1356 1414 ($Given - Provider: Nena Ren RN)1521 ($Given - Provider: Nena Ren RN) [...] PRN, nausea/vomiting - 2nd line, Starting on [facility] 12/20/24 at 1338, This is Step 2 [...] or analgesic side effects. Hold while on BMET or with regular IV opioid dosing. Maximum [...] 1338, Chew. 0810 ($Given - Provider: Nena Ren, MAGUI)1818 ($Given - Provider: Nicole Pinon, MAGUI) 0024 ($Given - Provider: Radhika Alarcon RN)1015 (Not Given - Provider: Nena Ren RN - Reason: Patient/family refused)2004 ($Given - Provider: Nicole Pinon, MAGUI) sodium chloride (OCEAN) 0.65 % nasal spray 1 spray 1 spray, Both Nostrils, EVERY 1 HOUR PRN, congestion, Starting on 12/18/24 at 2111 sodium chloride (PF) 0.9% PF [...] DAILY PRN, other, patient request, Starting on e 12/11/24 at 0925, Shake well. Recommended to [...] Depression Total Score: 7 12/10/19 2:56 PM REFUSE AND RECYCLING WORKER documented as of this encounter Care Teams Dietitian Teaching Relationship Specialty Start Date End Date No Ref-Primary, Physician PCP - General 12/04/21 Flower Amato MD [facility] [address] [address] Assigned OBGYN Provider 11/22/24 documented as of this encounter
--- OUTSIDE RECORDS SUMMARY | 2024-12-23 23:23 | XMS_ITS | Encounter Summary ---
Author Organization [place] Address [address] [place] [address] Care Team Providers Care Wastewater Technician Name Role Phone No Ref-Primary, Physician Primary Care Provider Flower Amato MD Unavailable [phone] Reason for Referral * Diagnostic Imaging Ultrasound (Routine) - Pending Review Specialty Diagnoses / Procedures Referred By Contac t Referred To Contact Radiology. 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 Procedures MFM Twins Comprehensive F/U Nicole Byrd MD [address] [place] [address] Phone: tel: fax: Referral ID Status Reason Start Date Expiration Date V isits Requested Visits Authorized [id number] Pending Review 11/30/2024 11/30/2025 1 1 L TEMPERER Reason for Visit * Diagnostic Imaging Ultrasound (Routine) - Pending Review Specialty Diagnoses / Procedures Referred By Contac t Referred To Contact Radiology. 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 Procedures MFM Twins Comprehensive F/U Nicole Byrd MD [address] [place] [address] Phone: tel: fax: Referral ID Status Reason Start Date Expiration Date V isits Requested Visits Authorized [id number] Pending Review 11/30/2024 11/30/2025 1 1 Encounter Details Date Type Department Care Team (Latest Contact Info) Description 12/03/2024 2:01 PM METAL TEMPERER - 12/03/2024 11:59 PM METAL TEMPERER Hospital Encounter [facility] [place] [address] [place] [phone] Nicole Byrd MD [address] [place], [place] [address] Monochorionic diamniotic twin gestation in second trimester [...] on file Legal Sex Female 11:44 PM METAL TEMPERER Gender Identity Not on file Sexual Orientation [...] US COMPREHENSIVE F/U Routine 12/03/2024 3:46 PM METAL TEMPERER Monochorionic diamniotic twin gestation in second trimester documented in this encounter Results * MFM Twins US Comprehensive F/U (12/03/2024 3:46 PM METAL TEMPERER) Anatomical Region Laterality Modality Ultrasound 12/03/2024 2:24 PM METAL TEMPERER Impressions 12/04/2024 8:53 AM METAL TEMPERER IMPRESSION ----- Monochorionic diamniotic twin gestation at [...] reversed a wave. Narrative 12/04/2024 8:53 AM METAL TEMPERER Comp Follow Up ----- Pat. Name: HEATHER CHÁVEZ Study Date: 12/03/2024 2:24pm Pat. NO: [id number] Referring MD: NICOLE BYRD Site: Service Person: Piper Huynh RDMS : 1995 Age: 29 [...] 1 lb 2 oz EFW by Hadlock ([id number]) EFW discordance 32.5 % Head / Face / Neck Biometry: Mechanical Test Engineer 7.2 mm CM 3.9 mm Thorax / [...] 0 lb 12 oz EFW by Hadlock (RCE-HQ-UL-FL) EFW discordance 32.5 % Head / Face / Neck Biometry: Mechanical Test Engineer 6.3 mm Extremities / Bony Struc Biometry: Tibia 25.7 mm 1% Valadez Fibula 26.0 mm 3% Valadez Fetus 1: ANATOMY ----- The following structures appear normal: Head / Neck Cranium. Head size. Head shape. Lateral ventricles. Midline falx. Cavum septi pellucidi. Cerebellum. Cisterna magna. Thalami. Face Lips. Profile. Nose. Heart / Thorax 4-chamber view. RVOT view. LVOT view. 7-ytyrnc-rafrcou view. Diaphragm. Abdomen Stomach. Kidneys. Bladder. Spine [...] Thorax 4-chamber view. RVOT view. LVOT view. 5-olgbzd-ylxytts view. sex: female. Fetus 1: TTTS ASSESSMENT [...] context, reviewed case with Dr. Spangler at [facility] to discuss possible management options. He discussed [...] optimal outcomes for both babies and declines [facility] referral. After discussion regarding chances of survival [...] the patient (reviewing medical records/tests), in direct tygc-kc-iscq contact with the patient during the visit counseling and discussing the plan of care and documenting the visit in the electronic medical record. Procedure Note Flor Dickson MD - 12/04/2024 Comp Follow Up ----- Pat. Name: HEATHER CHÁVEZ Study Date: 12/03/2024 2:24pm Pat. NO: [id number] Referring MD: NICOLE BYRD Site: Service Person: Piper Huynh RDMS : 1995 Age: 29 [...] EFW (lb,oz) 1 lb 2oz EFW by Hadlock([id number]-NO-TK-FL) EFW discordance 32.5% Head / Face / Neck Biometry: Mechanical Test Engineer 7.2mm CM 3.9mm Thorax / Lungs Biometry: [...] EFW (lb,oz) 0 lb 12oz EFW by Hadlock(GGS-AE-WH-FL) EFW discordance 32.5% Head / Face / Neck Biometry: Mechanical Test Engineer 6.3mm Extremities / Bony Struc Biometry: Tibia 25.7mm 1%Valadez Fibula 26.0mm 3%Valadez Fetus 1: ANATOMY ----- The following structures appear normal: Head / Neck Cranium. Head size. Head shape.Lateral ventricles. Midline falx. Cavum septi pellucidi. Cerebellum.Cisterna magna. Thalami. Face Lips. Profile. Nose. Heart / Thorax 4-chamber view. RVOT view. LVOT view.6-iqrtqf-ambufes view. Diaphragm. Abdomen Stomach. Kidneys. Bladder. Spine [...] / Thorax 4-chamber view. RVOT view. LVOT view.0-sbqmek-toqjzmf view. sex: female. Fetus 1: TTTS ASSESSMENT [...] for twin 1. Given twin 2 is qc002c at 22 weeks, chances of intact survival [...] this context, reviewed case with Dr. Spangler [facility] to discuss possible management options. He discussed that there aresituations in which fetoscopic laser photocoagulation of the placenta could be offered todichorionize the placenta with the intent of improving outcomes for bothtwins. However, he notes that in this setting, chances of this leading to a co-twin demise of twin 2 arerather high (60-70%). Heather desires optimal outcomes for both babies and declines [facility] referral.After discussion regarding chances of survival of [...] see the patient(reviewing medical records/tests), in direct qgif-sh-hiun contact with the patient during the visitcounseling [...] with intermittent reversed awave. Nicole Byrd MD [facility] ORDERABLES Edited Result - Final documented in this encounter Visit Diagnoses Diagnosis Monochorionic diamniotic twin gestation in second trimester documented in this encounter Care Teams Wastewater Technician Relationship Specialty Start Date End Date No Ref-Primary, Physician PCP - General 12/04/21 Flower Amato MD [address] [address] Assigned OBGYN Provider 11/22/24 documented as of this encounter
--- OUTSIDE RECORDS SUMMARY | 2024-12-23 23:23 | XMS_ITS | Continuity of Care Document ---
Author Organization [facility] Address [address] [place] [address] Assessment No assessment recorded. Plan of Treatment [...] Organization Details Recorded Time Low back pain 785955213 Active 2023 Moise Mensah DC [address], [place], [address], [facility] 4 18:46:52 Thoracic segmental dysfunction 313245688 Active 2023 Moise Mensah DC [address], [place], [address], [facility] 4 18:46:52 Lumbar segmental dysfunction 679887864 Active 2023 Moise Mensah DC [address], [place], [address], [facility] 4 18:46:52 Somatic dysfunction of sacral spine 330908395 Active 2023 Moise Mensah DC [address], [place], [address], [facility] 4 18:46:52 Neck pain 92930045 Active 2023 Moise Guzman [place] [address], [place], [address], [facility] 4 18:46:54 Cervical segmental dysfunction 065292081 Active 2023 Moise Mensah [place] [address], [place], [address], [facility] 4 18:46:54 Problem Notes None recorded. Procedures Surgical History Date Name Laterality Status Provider Name and Address Organization Details Recorded Time 5 11030: Spinal manipulation , 3 to 4 regions completed Gerry Le DC [address], [place], [address], [facility] 12/04/2024 11:22:55 5 [address]: Spinal manipulation , 3 to 4 regions completed Gerry Le DC [address], [place], [address], [facility] 11/07/2024 12:03:29 4 19573: Spinal manipulation , 3 to 4 regions completed Moise Guzman [place] Mensah [address], [place], [address], [facility] 10/30/2024 18:49:30 Imaging Results None [...] SNOMED-CT Code Diagnosis ICD10 Code Diagnosis Note [id number] Moise Thomas Mensah DC [facility] [address] [place] [address] 10/30/2024 16:03:14 10/30/2024 19:26:07 Lumbar segmental dysfunction 279456297 M99.03 Low back pain 942497471 M54.50 Somatic dy sfunction of sacral spine 677554169 M99.04 Thoracic s egmental dysfunction 280411468 M99.02 Cervical s egmental dysfunction 486584294 M99.01 Neck pain 86571578 M54.2 [id number] Gerry Le DC [facility] [address] [place] [address] 11/07/2024 10:39:00 11/07/2024 12:17:20 Lumbar segmental dysfunction 663748146 M99.03 Low back pain 431336842 M54.50 Somatic dy sfunction of sacral spine 320473889 M99.04 Thoracic s egmental dysfunction 364870236 M99.02 [id number] [place] [facility] [address] [place] [address] 11/29/2024 17:27:32 12/11/2024 10:43:36 Cervical segmental dysfunction 676609623 M99.01 Thoracic s egmental dysfunction 971231830 M99.02 Neck pain 98850846 M54.2 Somatic dy sfunction of sacral spine 253981180 M99.04 Health Concerns Section Related Observation LastModified by Organization Detai ls LastModified Time None Recorded Concern Status LastModified by Organization Details LastModified Time None Recorded Payers Encounter Date Sequence Insurance Name Policy Number Policy Samuel Covered Member ID Samuel Member ID Guarantor Name 11/29/2024 1 [employer] - INDIVIDUAL AND FAMILY (HMO) [id number] 1 Heather Chávez [id number] Heather Chávez Notes Date Note Type Note Provider Name and Address Organization Details Recorded Time 11/29/2024 text/html HPI - Cervical SpineReported bypatient.Location: left Quality:aching Severity:moderate Duration:2 weeks Timing:gradual Alleviating Factors:ice Aggravating Factors:sitting Associated Symptoms:no numbness/tingling Gerry Le DC [address], [place], [address], [facility] 12/04/2024 11:23:37 OBGyn Episode No OBEpisode recorded.
--- OUTSIDE RECORDS SUMMARY | 2024-12-23 23:23 | XMS_ITS | Encounter Summary ---
Author Organization [place] Address [address] [place] [address] Care Team Providers Care Milking Machine Technician Name Role Phone No Ref-Primary, Physician Primary Care Provider Flower Amato MD Unavailable [phone] Encounter Details Date Type Department Care [...] on file Legal Sex Female 11:44 PM DAIRY EQUIPMENT REPAIRER Gender Identity Not on file Sexual Orientation Not on file documented as of this encounter Plan of Treatment Not on file documented as of this encounter Visit Diagnoses Not on filedocumented in this encounter Care Teams Milking Machine Technician Relationship Specialty Start Date End Date No Ref-Primary, Physician PCP - General 12/04/21 Flower Amato MD [address] [place] [address] Assigned OBGYN Provider 11/22/24 documented as of this encounter
--- OUTSIDE RECORDS SUMMARY | 2024-12-23 23:23 | XMS_ITS | Encounter Summary ---
Author Organization [place] Address [address] [facility] [place] [address] Care Team Providers Care Assistive Technology Specialist Name Role Phone No Ref-Primary, Physician Primary Care Provider Flower Amato MD Unavailable [phone] Encounter Details Date Type Department Care Team (Late st Contact Info) Description 12/04/[address] [facility] Maternal Medicine Center [place] [address] [place] [address] Joceline Bejarano RN Social History Tobacco Use [...] file Legal Sex Female 11:44 PM SAFETY REPRESENTATIVE Gender Identity Not on file Sexual Orientation Not on file documented as of this encounter Plan of Treatment Not on file documented as of this encounter Visit Diagnoses Not on filedocumented in this encounter Care Teams Assistive Technology Specialist Relationship Specialty Start Date End Date No Ref-Primary, Physician PCP - General 12/04/21 Flower Amato MD [address] [place] [address] Assigned OBGYN Provider 11/22/24 documented as of this encounter
--- OUTSIDE RECORDS SUMMARY | 2024-12-23 23:23 | XMS_ITS | Encounter Summary ---
Author Organization [place] Address [address] [facility] [place] [address] Care Team Providers Care Rn Stars Name Role Phone No Ref-Primary, Physician Primary Care Provider Flower Amato MD Unavailable [phone] Reason for Visit * Reason Comments Ultrasound RL2/UAR/MCA-mono/di twins, fetus 2 FGR and AEDF, fetus 1 mild polyhydramnios Encounter Details Date Type Department Care Team (Latest Contact Info) Description 12/03/2024 2:45 PM ANIMAL RIDE MANAGER Office Visit [facility] M[facility] Medicine [facility] [place] [address] [place], [place] [address] [place] [address] Nicole Núñez MD [address] [place], [place] [address] [place] [address] Flor Dickson MD [address] [place] [address] Monochorionic diamniotic twin gestation in [...] on file Legal Sex Female 11:44 PM ANIMAL RIDE MANAGER Gender Identity Not on file Sexual [...] Center. Flor Dickson M.D. Maternal -Medicine Specialist AL RIDE MANAGER documented in this encounter Nursing Notes * Rivka Jones, RN - 12/03/2024 2:45 PM CST Patient reports positive movement x 2. Education provided to patient on today's ultrasound and plan for future ultrasounds. SBAR given to BLANCA MEDINA, see their note in Epic. AL RIDE MANAGER documented in this encounter Plan of Treatment Not on file documented as of this encounter Visit Diagnoses Diagnosis Monochorionic diamniotic twin gestation in second trimester- Primary Intrauterine growth restriction affecting antepartum care of mother in second trimester, fetus 2 documented in this encounter Care Teams Rn Stars Relationship Specialty Start Date End Date No Ref-Primary, Physician PCP - General 12/04/21 Flower Amato MD [address] [address] Assigned OBGYN Provider 11/22/24 documented as of this encounter
--- OUTSIDE RECORDS SUMMARY | 2024-12-23 23:23 | XMS_ITS | Encounter Summary ---
Author Organization [place] Address [address] [facility] [place] [address] Care Team Providers Care Balancer Name Role Phone No Ref-Primary, Physician Primary Care Provider Flower Amato MD Unavailable [phone] Reason for Visit * Reason Onset Date Comments Orders 12/02/2024 Encounter Details Date Type Department Care Team (Late st Contact Info) Description 12/02/2024 Telephone [facility] [address] [place] [address] Beverly Gagnon, RN Orders Social [...] on file Legal Sex Female 11:44 PM GUEST SERVICE TEAM LEADER Gender Identity Not on file Sexual Orientation [...] any order or pharmacy changes Beverly Gagnon, indian blanket weaver Nurse Advisor on 12/02/2024 at 10:09 AM T SERVICE TEAM LEADER documented in this encounter Plan of Treatment Not on file documented as of this encounter Visit Diagnoses Not on filedocumented in this encounter Care Teams Balancer Relationship Specialty Start Date End Date No Ref-Primary, Physician PCP - General 12/04/21 Flower Amato MD [address] [place] [address] Assigned OBGYN Provider 11/22/24 documented as of this encounter
--- OUTSIDE RECORDS SUMMARY | 2024-12-23 23:23 | XMS_ITS | Encounter Summary ---
Author Organization [place] Address [address] [facility] [place] [address] Care Team Providers Care Water Analyst Name Role Phone No Ref-Primary, Physician Primary Care Provider Flower Amato MD Unavailable [phone] Reason for Referral * Consultation (Routine: Next available opening) - Pending Review Specialty Diagnoses / Procedures Referred By Contac t Referred To Contact Diagnoses Monochorionic diamniotic twin , antepartum Flor Dickson MD [address] [place] [address] Phone: tel: fax: Referral ID Status Reason Start Date Expiration Date V isits Requested Visits Authorized [id number] Pending Review 12/04/2024 12/04/2025 1 1 Question Answer Office Visit Type: NICU Consult Comments 1230 12/05 AINABLE PRODUCTS MARKETING MANAGER Reason for Visit * Reason Onset Date Comments Appointment 12/04/2024 Encounter Details Date Type Department Care Team (Late st Contact Info) Description 12/04/2024 Telephone [facility] M[facility] Medicine [facility] [place] [address] [address] Joceline Bejarano, RN Appointment Social [...] on file Legal Sex Female 11:44 PM SUSTAINABLE PRODUCTS MARKETING MANAGER Gender Identity Not on file Sexual Orientation Not on file documented as of this encounter Miscellaneous Notes * Telephone Encounter - Joceline Bejarano RN - 12/04/2024 1:57 PM SUSTAINABLE PRODUCTS MARKETING MANAGER Healthcare Financial Analyst spoke with patient regarding follow up with MFM on 12/05. Patient agreed to move appt from 0800am to 1145am with a NICU consult at 1230. Joceline Bejarano RN AINABLE PRODUCTS MARKETING MANAGER documented in this encounter Plan of Treatment Scheduled Referrals Name Type Priority Associated Diagnoses Orde r Schedule MFM Office Visit - NICU Consult Referral Routine: Next available opening Monochorionic diamniotic twin , antepartum Expected: 12/05/2024 (Approximate), Expires: 12/04/2025 documented as of this encounter Visit Diagnoses Diagnosis Monochorionic diamniotic twin , antepartum- Primary Twin , antepartum documented in this encounter Care Teams Water Analyst Relationship Specialty Start Date End Date No Ref-Primary, Physician PCP - General 12/04/21 Flower Amato MD [address] [address] Assigned OBGYN Provider 11/22/24 documented as of this encounter
--- OUTSIDE RECORDS SUMMARY | 2024-12-23 23:23 | XMS_ITS | Encounter Summary ---
Author Organization [place] Address [address] [place] [address] Care Team Providers Care Jailer Name Role Phone No Ref-Primary, Physician Primary Care Provider Flower Amato MD Unavailable [phone] Reason for Referral * Diagnostic Imaging Ultrasound (Routine) - Pending Review Specialty Diagnoses / Procedures Referred By Contac t Referred To Contact Radiology. 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 Intrauterine growth restriction affecting antepartum care of mother in first trimester, fetus 2 Procedures MFM Twins Comprehensive F/U Nicole Núñez MD [address] [place] [address] Phone: tel: fax: Referral ID Status Reason Start Date Expiration Date V isits Requested Visits Authorized [id number] Pending Review 11/22/2024 11/22/2025 1 1 TER HAND Reason for Visit * Diagnostic Imaging Ultrasound (Routine) - Pending Review Specialty Diagnoses / Procedures Referred By Contac t Referred To Contact Radiology. 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 Intrauterine growth restriction affecting antepartum care of mother in first trimester, fetus 2 Procedures MFM Twins US Comprehensive F/U Nicole Núñez MD [address] [place] [address] Phone: tel: fax: Referral ID Status Reason Start Date Expiration Date V isits Requested Visits Authorized [id number] Pending Review 11/22/2024 11/22/2025 1 1 Encounter Details Date Type Department Care Team (Latest Contact Info) Description 12/05/2024 11:20 AM TWISTER HAND - 12/05/2024 11:59 PM TWISTER HAND Hospital Encounter [facility] M[facility] Medicine [facility] [place] [address] [place] [phone] Karin Esteban MD [address] [place] [address] Monochorionic diamniotic twin gestation in second trimester; [...] on file Legal Sex Female 11:44 PM TWISTER HAND Gender Identity Not on file Sexual [...] Diagnosis Comments MFM TWINS COMPREHENSIVE F/U Routine 12/05/2024 12:28 PM TWISTER HAND Monochorionic diamniotic twin gestation in second trimester Intrauterine growth restriction affecting antepartum care of mother in first trimester, fetus 2 documented in this encounter Results * MFM Twins US Comprehensive F/U (12/05/2024 12:28 PM TWISTER HAND) Anatomical Region Laterality Modality Ultrasound 12/05/2024 11:3 2 AM TWISTER HAND Impressions 12/05/2024 1:37 PM TWISTER HAND IMPRESSION ----- Monochorionic diamniotic twin gestation at [...] the a-wave today. Narrative 12/05/2024 1:37 PM TWISTER HAND Surveillance US ----- Pat. Name: HEATHER CHÁVEZ Study Date: 12/05/2024 11:32am Pat. NO: [id number] Referring MD: PAMELA CUELLAR Site: Oil Pump Station Operator Chief: Piper TraemikeSUSAN hung : 1995 Age: 29 [...] the patient (reviewing medical records/tests), in direct prhg-xc-ykdp contact with the patient during the visit counseling and discussing the plan of care and documenting the visit in the electronic medical record. Procedure Note Jesus Harmon MD - 12/05/2024 Surveillance US ----- Pat. Name: HEATHER CHÁVEZ Study Date: 12/05/2024 11:32am Pat. NO: [id number] Referring MD: PAMELA CUELLAR Site: Oil Pump Station Operator Chief: Piper Huynh RDMS : 1995 Age: 29 [...] see the patient(reviewing medical records/tests), in direct vqaq-kn-letc contact with the patient during the visitcounseling [...] in the a-wave today. Nicole Núñez MD [facility] ORDERABLES Edited Result - Final documented in this encounter Visit Diagnoses Diagnosis Monochorionic diamniotic twin gestation in second trimester Intrauterine growth restriction affecting antepartum care of mother in first trimester, fetus 2 documented in this encounter Care Teams Jailer Relationship Specialty Start Date End Date No Ref-Primary, Physician PCP - General 12/04/21 Flower Amato MD [address] [place] [address] Assigned OBGYN Provider 11/22/24 documented as of this encounter
[2024-12-23 23:30] VITALS: BP 126/73; PULSE 63; RESP 16; TEMP 36.7; O2SAT 98; BMI 24.6
--- OUTSIDE RECORDS SUMMARY | 2024-12-24 00:22 | XMS_ITS | Encounter Summary ---
Author Organization [place] Address [facility] [place] [address] Care Team Providers Care Commissioning Manager Name Role Phone No Ref-Primary, Physician Primary Care Provider Flower Amato MD Unavailable [phone] Reason for Visit * Reason Comments Consult NICU consult- mono/d i twins sFGR Type II * Consultation (Routine: Next available opening) - Pending Review Specialty Diagnoses / Procedures Referred By Contac t Referred To Contact Diagnoses Monochorionic diamniotic twin , antepartum Flor Dickson MD [address] [place] [address] Phone: tel: fax: Referral ID Status Reason Start Date Expiration Date V isits Requested Visits Authorized [id number] Pending Review 12/04/2024 12/04/2025 1 1 Encounter Details Date Type Department Care Team (Late st Contact Info) Description 12/05/2024 12:30 PM ULTRASONIC SOLDERER Office Visit [facility] [place] [address] [place], [place] [address] Karin Esteban MD [address] [facility] [address] [place] [address] Rand Joe MD [address] [id number] [place], [place] [address] Monochorionic diamniotic twin , antepartum Social History [...] on file Legal Sex Female 11:44 PM ULTRASONIC SOLDERER Gender Identity Not on file Sexual Orientation Not on file documented as of this encounter Progress Notes * Rand Joe MD - 12/05/2024 12:30 PM CST Dear Colleagues: I had the pleasure of meeting your patient, Heather Chávez, for counseling in the Maternal Medicine Clinic at the [facility]. She was referred tome for consultation [...] gopal and connection with their extended family (Haether's mom and both of Los's parents were [...] medical team and healthcare providers in the [facility]. I briefly described the [...] in the intensive care unit at the [facility]. Total time spent in consultation was 45 minutes, 100% of the time spent in direct counseling. Sincerely, Rand Joe MD Attending Machinist [facility] ASONIC SOLDERER documented in this encounter Plan of Treatment Not on file documented as of this encounter Visit Diagnoses Diagnosis Monochorionic diamniotic twin , antepartum Twin , antepartum documented in this encounter Care Teams Commissioning Manager Relationship Specialty Start Date End Date No Ref-Primary, Physician PCP - General 12/04/21 Flower Amato MD [address] [place] [address] Assigned OBGYN Provider 11/22/24 documented as of this encounter
--- OUTSIDE RECORDS SUMMARY | 2024-12-24 00:22 | XMS_ITS | Encounter Summary ---
Author Organization [place] Address [address] [facility] [place] [address] Care Team Providers Care Jewelsmith Name Role Phone No Ref-Primary, Physician Primary Care Provider Flower Amato MD Unavailable [phone] Encounter Details Date Type Department Care Team [...] file Legal Sex Female 11:44 PM SENIOR JAVA UI DEVELOPER Gender Identity Not on file Sexual Orientation Not on file documented as of this encounter Plan of Treatment Not on file documented as of this encounter Visit Diagnoses Not on filedocumented in this encounter Care Teams Jewelsmith Relationship Specialty Start Date End Date No Ref-Primary, Physician PCP - General 12/04/21 Flower Amato MD [address] [place] [address] Assigned OBGYN Provider 11/22/24 documented as of this encounter
--- OUTSIDE RECORDS SUMMARY | 2024-12-24 00:22 | XMS_ITS | Encounter Summary ---
Author Organization [place] Address [address] [facility] [place] [address] Care Team Providers Care Jewel Flat Surfacer Name Role Phone No Ref-Primary, Physician Primary Care Provider Flower Amato MD Unavailable [phone] Encounter Details Date Type Department Care [...] on file Legal Sex Female 11:44 PM SINGER AND UNLOADER Gender Identity Not on file Sexual Orientation Not on file documented as of this encounter Plan of Treatment Not on file documented as of this encounter Visit Diagnoses Not on filedocumented in this encounter Care Teams Jewel Flat Surfacer Relationship Specialty Start Date End Date No Ref-Primary, Physician PCP - General 12/04/21 Flower Amato MD [address] [place] [address] Assigned OBGYN Provider 11/22/24 documented as of this encounter
--- OUTSIDE RECORDS SUMMARY | 2024-12-24 00:22 | XMS_ITS | Encounter Summary ---
Author Organization [place] Address [address] [facility] [place] [address] Care Team Providers Care Supervisor Malted Milk Name Role Phone No Ref-Primary, Physician Primary Care Provider Flower Amato MD Unavailable [phone] Reason for Referral * Consultation (Routine: Next available opening) - Pending Review Specialty Diagnoses / Procedures Referred By Contac t Referred To Contact Diagnoses Monochorionic diamniotic twin , antepartum Jesus Harmon MD [address] [place] [address] Phone: tel: fax: Referral ID Status Reason Start Date Expiration Date V isits Requested Visits Authorized [id number] Pending Review 12/05/2024 12/05/2025 1 1 Question Answer Office Visit Type: OB Visit - First F SUBMARINE WARFARE OFFICER Encounter Details Date Type Department Care Team (Late st Contact Info) Description 12/05/2024 Orders Only [facility] M[facility] [address] [address] Joceline Bejarano RN Monochorionic diamniotic [...] on file Legal Sex Female 11:44 PM STAFF SUBMARINE WARFARE OFFICER Gender Identity Not on file Sexual [...] antepartum documented in this encounter Care Teams Supervisor Malted Milk Relationship Specialty Start Date End Date No Ref-Primary, Physician PCP - General 12/04/21 Flower Amato MD [address] [address] Assigned OBGYN Provider 11/22/24 documented as of this encounter
--- OUTSIDE RECORDS SUMMARY | 2024-12-24 00:22 | XMS_ITS | Encounter Summary ---
Author Organization [place] Address [address] [place] [address] Care Team Providers Care Plant Guide Name Role Phone No Ref-Primary, Physician Primary Care Provider Flower Amato MD Unavailable [phone] Encounter Details Date Type Department Care Team (Late st Contact Info) Description 11/30/2024 Office Visit [facility] [address] [facility] [address] [place] [address] Luc Dominguez MD [address] [place] [id number] cardiac anomaly complicating , antepartum, fetus 1 [...] on file Legal Sex Female 11:44 PM GRINDER OPERATOR Gender Identity Not on file Sexual Orientation Not on file documented as of this encounter Progress Notes * Luc Dominguez MD - 11/30/2024 1:03 PM CST [facility] Consult Note Patient: Heather Chávez Date of : 1995 Age: [age] year old Date of Visit: 11/30/2024 PCP: No Ref-Primary, Physician Dear Dr. Lopez ref. provider found: I had the pleasure of seeing Heather Chávez at the [facility] on 11/30/2024 in cardiology consultation for echocardiogram results. She presented today accompanied by her sister in law. As you know, she is a 29 year old at 21w5d who presented for echocardiogram today because of [place] twins. I performed and interpreted the echocardiogram [...] care. I spent approximately 45 minutes in neph-jn-aauo time reviewing the above considerations. Kade Dominguez M.D. Pediatric Cardiology [address] Academic Office Building [address] [facility], [place] [address] DER OPERATOR documented in this encounter Plan of Treatment Not on file documented as of this encounter Visit Diagnoses Diagnosis cardiac anomaly complicating , antepartum, fetus 1- Primary cardiac anomaly complicating , antepartum, fetus 2 documented in this encounter Care Teams Plant Guide Relationship Specialty Start Date End Date No Ref-Primary, Physician PCP - General 12/04/21 Flower Amato MD [address] [address] Assigned OBGYN Provider 11/22/24 documented as of this encounter
--- OUTSIDE RECORDS SUMMARY | 2024-12-24 00:22 | XMS_ITS | Encounter Summary ---
Author Organization [place] Address [address] [facility] [place] [address] Care Team Providers Care Entry Level Drafter Name Role Phone No Ref-Primary, Physician Primary Care Provider Flower Amato MD Unavailable [phone] Encounter Details Date Type Department Care [...] file Legal Sex Female 11:44 PM MECHANICAL SERVICE TECHNICIAN Gender Identity Not on file Sexual Orientation Not on file documented as of this encounter Plan of Treatment Not on file documented as of this encounter Visit Diagnoses Not on filedocumented in this encounter Care Teams Entry Level Drafter Relationship Specialty Start Date End Date No Ref-Primary, Physician PCP - General 12/04/21 Flower Amato MD [address] [place] [address] Assigned OBGYN Provider 11/22/24 documented as of this encounter
--- OUTSIDE RECORDS SUMMARY | 2024-12-24 00:22 | XMS_ITS | Encounter Summary ---
Author Organization [place] Address [address] [place] [address] Care Team Providers Care Advertising Sales Representative Name Role Phone No Ref-Primary, Physician Primary Care Provider Reason for Referral * Diagnostic Imaging Ultrasound (Routine) - Pending Review Specialty Diagnoses / Procedures Referred By Contac t Referred To Contact Radiology. Diagnoses Monochorionic diamniotic twin gestation Procedures MFM Twins Diane Montez MD [address] [place] [address] Phone: tel: fax: Referral ID Status Reason Start Date Expiration Date V isits Requested Visits Authorized [id number] Pending Review 10/19/2024 10/19/2025 1 1 RVISOR COOLER SERVICE Reason for Visit * Diagnostic Imaging Ultrasound (Routine) - Pending Review Specialty Diagnoses / Procedures Referred By Noa lilly Referred To Contact Radiology. Diagnoses Monochorionic diamniotic twin gestation Procedures MFM Twins Diane Montez MD [address] [place] [address] Phone: tel: fax: Referral ID Status Reason Start Date Expiration Date V isits Requested Visits Authorized [id number] Pending Review 10/19/2024 10/19/2025 1 1 Encounter Details Date Type Department Care Team (Latest Contact Info) Description 11/14/2024 10:09 AM SUPERVISOR COOLER SERVICE - 11/14/2024 11:59 PM SUPERVISOR COOLER SERVICE Hospital Encounter [facility] Maternal Medicine [facility] [address] [facility] [address] [place] [address] Flower Amato MD [address] [place] [address] Monochorionic diamniotic twin gestation in [...] file Legal Sex Female 11:44 PM SUPERVISOR COOLER SERVICE Gender Identity Not on file Sexual Orientation [...] US COMPREHENSIVE Routine 11/14/2024 11:59 AM SUPERVISOR COOLER SERVICE Monochorionic diamniotic twin gestation in second trimester documented in this encounter Results * MFM Twins US Comprehensive (11/14/2024 11:59 AM SUPERVISOR COOLER SERVICE) Anatomical Region Laterality Modality Ultrasound 11/14/2024 10:2 4 AM SUPERVISOR COOLER SERVICE Impressions 11/14/2024 4:40 PM SUPERVISOR COOLER SERVICE IMPRESSION ----- Monochorionic diamniotic twin gestation at [...] polycythemia syndrome. Narrative 11/14/2024 4:40 PM SUPERVISOR COOLER SERVICE Comprehensive ----- Pat. Name: HEATHER CHÁVEZ Study Date: 11/14/2024 10:24am Pat. NO: [id number] Referring MD: PAMELA CUELLAR Site: Signal Helper: Emerita Corona RDMS : 1995 Age: 29 [...] 0 lb 11 oz EFW by Hadlock ([id number]) EFW discordance 30.6 % Head / Face / Neck Biometry: Ic Engineer 6.9 mm CM 2.6 mm Nasal bone [...] 0 lb 8 oz EFW by Hadlock ([id number]) EFW discordance 30.6 % Head / Face / Neck Biometry: Ic Engineer 6.8 mm CM 4.4 mm Extremities / [...] view. RVOT view. LVOT view. 3-vessel view. 8-pjjyyr-lbahnrw view. Situs. Aortic arch view. Bicaval view. [...] Thorax 4-chamber view. RVOT view. LVOT view. 4-rmuemn-zxghsiy view. Aortic arch view. sex: female. Fetus [...] recommendation. She was again offered referral to [place] for a second opinion/discussion about options in [...] the patient (reviewing medical records/tests), in direct qnsd-br-numn contact with the patient counseling and discussing the plan of care, documenting the visit in the electronic medical record, and communicating with other health direct care specialist and/or care coordination. Please see note for details. Procedure Note Flower Amato MD - 11/14/2024 Comprehensive ----- Pat. Name: HEATHER CHÁVEZ Study Date: 11/14/2024 10:24am Pat. NO: [id number] Referring MD: APMELA CUELLAR Site: Signal Helper: Emerita Corona RDMS : 1995 Age: 29 [...] EFW (lb,oz) 0 lb 11oz EFW by Hadlock([id number]) EFW discordance 30.6% Head / Face / Neck Biometry: Ic Engineer 6.9mm CM 2.6mm Nasal bone 7.8mm Fetus 2: BIOMETRY ----- BPD 42.9mm 19w 0dHadlock OFD 55.1mm 18w 2dNicolaides HC 156.8mm 18w 4dHadlock Cerebellum tr 18.1mm 18w 0dNicolaides Nuchal fold 3.0mm AC 128.0mm 18w 3d 15%Hadlock Femur 24.5mm 17w 3dHadlock Humerus 23.5mm 17w 2dJeanty Weight Calculation: EFW 219g 2%Hadlock EFW (lb,oz) 0 lb 8oz EFW by Hadlock(QAF-PB-JH-FL) EFW discordance 30.6% Head / Face / Neck Biometry: Ic Engineer 6.8mm CM 4.4mm Extremities / Bony Struc [...] 4-chamber view. RVOT view. LVOT view.3-vessel view. 0-enoboe-kpwfngg view. Situs. Aortic arch view. Bicavalview. Ductal [...] / Thorax 4-chamber view. RVOT view. LVOT view.2-uigpmj-bmxurco view. Aortic arch view. sex: female. Fetus [...] the recommendation. She was again offered referralto [place] for a second opinion/discussion about options in [...] see the patient(reviewing medical records/tests), in direct bhla-uu-htrq contact with the patient counseling and discussingthe plan of care, documenting the visit in the electronic medical record,and communicating with other health direct care specialist and/or care coordination. Please see [...] twin anemia polycythemia syndrome. Diane Lopez MD [facility] ORDERABLES Edited Result - Final documented in this encounter Visit Diagnoses Diagnosis Monochorionic diamniotic twin gestation in second trimester documented in this encounter Care Teams Advertising Sales Representative Relationship Specialty Start Date End Date No Ref-Primary, Physician PCP - General 12/04/21 documented as of this encounter
--- OUTSIDE RECORDS SUMMARY | 2024-12-24 00:22 | XMS_ITS | Encounter Summary ---
Author Organization [place] Address [address] [facility] 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
--- OUTSIDE RECORDS SUMMARY | 2024-12-24 00:22 | XMS_ITS | Encounter Summary ---
Author Organization [place] Address [address] [place] [address] Care Team Providers Care Fryer Line Helper Name Role Phone No Ref-Primary, Physician Primary Care Provider Flower Amato MD Unavailable [phone] Reason for Referral * CV Testing (Routine) - Closed Specialty Diagnoses / Procedures Referred By Contac t Referred To Contact Cardiology Diagnoses Monochorionic diamniotic twin gestation Procedures Echo (TTE) Complete Yobani Lopez MD [address] [address] Phone: tel: fax: [facility] [address] [place] [address] Phone: tel: Referral ID Status Reason Start Date Expiration Date Visits Re quested Visits Authorized [id number] Closed 10/19/2024 10/19/2025 1 1 ENERGY SYSTEMS INSTALLER Reason for Visit * CV Testing (Routine) - Closed Specialty Diagnoses / Procedures Referred By Contac t Referred To Contact Cardiology Diagnoses Monochorionic diamniotic twin gestation Procedures Echo (TTE) Yobani Olivares MD [address] [place] [address] Phone: tel: fax: [facility] [address] [place] [address] Phone: tel: Referral ID Status Reason Start Date Expiration Date Visits Re quested Visits Authorized [id number] Closed 10/19/2024 10/19/2025 1 1 Encounter Details Date Type Department Care Team (Latest Contact Info) Description 11/30/2024 12:25 PM WIND ENERGY SYSTEMS INSTALLER - 11/30/2024 1:30 PM WIND ENERGY SYSTEMS INSTALLER Hospital Encounter [facility] [address] [place] [address] Yobani Lopez MD [address] [place] [address] Monochorionic diamniotic twin gestation in second [...] on file Legal Sex Female 11:44 PM WIND ENERGY SYSTEMS INSTALLER Gender Identity Not on file Sexual Orientation [...] ECHO COMPLETE Routine 11/30/2024 1 :46 PM WIND ENERGY SYSTEMS INSTALLER Monochorionic diamniotic twin gestation in second trimester documented in this encounter Results * ECHO COMPLETE (11/30/2024 1:46 PM WIND ENERGY SYSTEMS INSTALLER) Anatomical Region Laterality Modality Echocardiography 11/30/2024 1:42 PM WIND ENERGY SYSTEMS INSTALLER Narrative 11/30/2024 2:07 PM WIND ENERGY SYSTEMS INSTALLER [id number]^ZAK^YOBANI Study ID: [id number] [facility] [place] [address] Echocardiogram Name: HEATHER CHÁVEZ Study Date: 11/30/2024 01:42 PM Patient Location: [facility] Gender: Female Patient Class: Outpatient : 1995 Age: 29 yrs Ordering Provider: YOBANI LOPEZ Referring Provider: YOBANI LOPEZ Performed By: Daphney Dao RDCS Reading Physician: Luc Dominguez MD Reason For Study: Monochorionic diamniotic twin gestation in second trimester Data: Number of fetuses: This is a twin gestation. Due date: 04/07/2025. Gestational age: 21w5d. Delivery at: [facility]. Specific Indication: echocardiogram performed for monochorionic diamniotic [...] to the left atrium. There is laminar drzfu-xq-odwy shunting across the foramen ovale. Atrioventricular valves: [...] Procedure Note Luc Dominguez MD - 11/30/2024 [id number] [facility] [id number]^ZAK^YOBANI Study ID:[id number] [facility] [address] [facility] [place] [address] Echocardiogram Name: HEATHER CHÁVEZ Study Date: 11/30/2024 01:42 PM Patient Location: [facility] Gender: Female Patient Class:Outpatient : 1995 Age: 29 yrs Ordering Provider: YOBANI LOPEZ Referring Provider: YOBANI LOEPZ Performed By: Daphney Dao RDCS Reading Physician: Luc Dominguez MD Reason For Study: Monochorionic diamniotic twin gestation in secondtrimester Data: Number of fetuses: This is a twin gestation. Due date: 04/07/2025. Gestational age: 21w5d. Delivery at: [facility]. Specific Indication: echocardiogram performed formonochorionic diamniotic twins. [...] breech position. The fetus is located on maternal[facility]. The heart is in left chest. The [...] in to the left atrium. There is fvpcktgzpwch-uj-yvvj shunting across the foramen ovale. Atrioventricular valves: [...] trimester documented in this encounter Care Teams Fryer Line Helper Relationship Specialty Start Date End Date No Ref-Primary, Physician PCP - General 12/04/21 Flower Amato MD [address] [address] Assigned OBGYN Provider 11/22/24 documented as of this encounter
--- OUTSIDE RECORDS SUMMARY | 2024-12-24 00:22 | XMS_ITS | Encounter Summary ---
Author Organization [place] Address [address] [facility] [place] [address] Care Team Providers Care Broadcast Journalist Name Role Phone No Ref-Primary, Physician Primary Care Provider Flower Amato MD Unavailable [phone] Reason for Referral * Diagnostic Imaging Ultrasound (Routine) - Pending Review Specialty Diagnoses / Procedures Referred By Contac t Referred To Contact Radiology. 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 Intrauterine growth restriction affecting antepartum care of mother in first trimester, fetus 2 Procedures MFM Twins Comprehensive F/U Nicole Núñez MD [address] [place] [address] Phone: tel: fax: Referral ID Status Reason Start Date Expiration Date V isits Requested Visits Authorized [id number] Pending Review 11/22/2024 11/22/2025 1 1 AR CLOSER LOCKSTITCH Reason for Visit * Reason Comments Ultrasound RL2/UAR/MCA: mono/di twins, TTTS check/ sFGR fetus 2 Encounter Details Date Type Department Care Team (Latest Contact Info) Description 11/22/2024 10:00 AM COLLAR CLOSER LOCKSTITCH Office Visit [facility] [place] [facility] [address] [facility] [address] [place] [address] Nicole Núñez MD [address] [place] [address] Monochorionic diamniotic twin gestation in second trimester [...] on file Legal Sex Female 11:44 PM COLLAR CLOSER LOCKSTITCH Gender Identity Not on file Sexual Orientation [...] the Maternal- Medicine Center. Nicole Núñez MD Contact Lens Cutter, SPLUNK DEVELOPER Maternal- Medicine AR CLOSER LOCKSTITCH documented in this encounter Nursing Notes * [...] discharged stable and ambulatory. Joceline Bejarano RN AR CLOSER LOCKSTITCH AR CLOSER LOCKSTITCH documented in this encounter Plan of Treatment Not on file documented as of this encounter Results * MFM Twins US Comprehensive F/U (12/05/2024 12:28 PM COLLAR CLOSER LOCKSTITCH) Anatomical Region Laterality Modality Ultrasound 12/05/2024 11:3 2 AM COLLAR CLOSER LOCKSTITCH Impressions 12/05/2024 1:37 PM COLLAR CLOSER LOCKSTITCH IMPRESSION ----- Monochorionic diamniotic twin gestation at [...] the a-wave today. Narrative 12/05/2024 1:37 PM COLLAR CLOSER LOCKSTITCH [facility] Surveillance US ----- Pat. Name: HEATHER CHÁVEZ Study Date: 12/05/2024 11:32am Pat. NO: [id number] Referring MD: PAMELA CUELLAR Site: [employer] Consultant: Piper Huynh RDMS : 1995 Age: 29 [...] the patient (reviewing medical records/tests), in direct bgdr-qv-xiej contact with the patient during the visit counseling and discussing the plan of care and documenting the visit in the electronic medical record. Procedure Note Jesus Harmon MD - 12/05/2024 Surveillance US ----- Pat. Name: HEATHER CHÁVEZ Study Date: 12/05/2024 11:32am Pat. NO: [id number] Referring MD: PAMELA CUELLAR Site: [employer] Consultant: Piper Huynh RDMS : 1995 Age: 29 [...] see the patient(reviewing medical records/tests), in direct yzeb-sq-mqyb contact with the patient during the visitcounseling [...] in the a-wave today. Nicole Núñez MD [facility] ORDERABLES Edited Result - Final documented in this encounter Visit Diagnoses Diagnosis Monochorionic diamniotic twin gestation in second trimester- Primary Intrauterine growth restriction affecting antepartum care of mother in first trimester, fetus 2 Monochorionic diamniotic twin gestation in second trimester Intrauterine growth restriction affecting antepartum care of mother in first trimester, fetus 2 documented in this encounter Care Teams Broadcast Journalist Relationship Specialty Start Date End Date No Ref-Primary, Physician PCP - General 12/04/21 Flower Amato MD [address] [address] Assigned OBGYN Provider 11/22/24 documented as of this encounter
--- OUTSIDE RECORDS SUMMARY | 2024-12-24 00:22 | XMS_ITS | Encounter Summary ---
Author Organization [facility] Address [address] [facility] [place] [address] Care Team Providers Care Nut Sorter Name Role Phone No Ref-Primary, Physician Primary Care Provider Reason for Referral * Diagnostic Imaging Ultrasound (Routine) - Pending Review Specialty Diagnoses / Procedures Referred By Noa t Referred To Contact Radiology. 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 Procedures MFM Twins US Comprehensive F/U Flower Amato MD [address] [place] [address] Phone: tel: fax: Referral ID Status Reason Start Date Expiration Date V isits Requested Visits Authorized [id number] Pending Review 11/14/2024 11/14/2025 1 1 ER SERVICES REPRESENTATIVE Reason for Visit * Reason Comments Ultrasound L2-mono/di twins Encounter Details Date Type Department Care Team (Latest Contact Info) Description 11/14/2024 11:30 AM PLAYER SERVICES REPRESENTATIVE Office Visit [facility] [place] [address] [place] [address] Flower Amato MD [address] [place] [address] Monochorionic diamniotic twin gestation in [...] on file Legal Sex Female 11:44 PM PLAYER SERVICES REPRESENTATIVE Gender Identity Not on file Sexual Orientation Not on file documented as of this encounter Progress Notes * Flower Amato MD - 11/14/2024 11:30 AM CST The patient was seen for an ultrasound in the M[facility] Medicine Center at the [facility] today. For a detailed report of the ultrasound examination, please see the ultrasound report which can be found under the imaging tab. If you have questions regarding today's evaluation or if we can be of further service, please contact the Maternal- Medicine Center. Flower Amato MD Waste And Batting Waste Chopper, SANDFILL OPERATOR Maternal- Medicine [phone] (Pager) ER SERVICES REPRESENTATIVE documented in this encounter Nursing Notes * April Baker, MAGUI - 11/14/2024 11:30 AM CST Patient reports positive movement, denies contractions, leaking of fluid, or bleeding. SBAR given to BLANCA MEDINA, see their note in Epic. ER SERVICES REPRESENTATIVE documented in this encounter Plan of Treatment Not on file documented as of this encounter Results * MFM Twins US Comprehensive F/U (11/22/2024 11:09 AM PLAYER SERVICES REPRESENTATIVE) Anatomical Region Laterality Modality Ultrasound 11/22/2024 9:46 AM PLAYER SERVICES REPRESENTATIVE Impressions 11/23/2024 6:03 PM PLAYER SERVICES REPRESENTATIVE IMPRESSION ----- Monochorionic diamniotic twin gestation at [...] anemia polycythemia syndrome. Narrative 11/23/2024 6:03 PM [facility] Surveillance US ----- Pat. Name: DEANDRE CHÁVEZ Study Date: 11/22/2024 9:46am Pat. NO: [id number] Referring MD: PAMELA CUELLAR Site: [place] Worker: José Miguel Hussein RDMS : 1995 Age: [...] the patient (reviewing medical records/tests), in direct gjdt-jg-szsy contact with the patient counseling and discussing the plan of care, documenting the visit in the electronic medical record, and communicating with other health healthcare advisory services manager and/or care coordination. Procedure Note Nicole Núñez MD - 11/23/2024 Surveillance US ----- Pat. Name: DEANDRE CHÁVEZ Study Date: 11/22/2024 9:46am Pat. NO: [id number] Referring MD: PAMELA CUELLAR Site: [place] Worker: José Miguel Hussein RDMS : 1995 Age: [...] see the patient(reviewing medical records/tests), in direct znuq-sm-tbge contact with the patient counseling and discussingthe plan of care, documenting the visit in the electronic medical record,and communicating with other health healthcare advisory services manager and/or care coordination. IMPRESSION ----- [...] anemia polycythemia syndrome. us Flower Amato MD [facility] ORDERABLES Edited Re sult - Final documented in this encounter Visit Diagnoses Diagnosis Monochorionic diamniotic twin gestation in second trimester- Primary Discordant growth in twin gestation, fetus 2 of multiple gestation Intrauterine growth restriction affecting antepartum care of mother in first trimester, fetus 2 Monochorionic diamniotic twin gestation in second trimester documented in this encounter Care Teams Nut Sorter Relationship Specialty Start Date End Date No Ref-Primary, Physician PCP - General 12/04/21 documented as of this encounter
--- OUTSIDE RECORDS SUMMARY | 2024-12-24 00:22 | XMS_ITS | Encounter Summary ---
Author Organization [facility] Address [address] [place] [address] Care Team Providers Care Civil Estimator Name Role Phone No Ref-Primary, Physician Primary Care Provider Reason for Referral * Diagnostic Imaging Ultrasound (Routine) - Pending Review Specialty Diagnoses / Procedures Referred By Noa lilly Referred To Contact Radiology. Diagnoses Monochorionic diamniotic twin gestation Procedures MFM Twins Comprehensive F/U Diane oLpez MD [address] [address] Phone: tel: fax: Referral ID Status Reason Start Date Expiration Date V isits Requested Visits Authorized [id number] Pending Review 10/19/2024 10/19/2025 1 1 RN Reason for Visit * Diagnostic Imaging Ultrasound (Routine) - Pending Review Specialty Diagnoses / Procedures Referred By Noa lilly Referred To Contact Radiology. Diagnoses Monochorionic diamniotic twin gestation Procedures MFM Twins Comprehensive F/U Diane Lopez MD [address] [place] [address] Phone: tel: fax: Referral ID Status Reason Start Date Expiration Date V isits Requested Visits Authorized [id number] Pending Review 10/19/2024 10/19/2025 1 1 Encounter Details Date Type Department Care Team (Latest Contact Info) Description 11/08/2024 9:24 AM ICU RN - 11/08/2024 11:59 PM ICU RN Hospital Encounter [facility] [place] [facility] [address] [place] [phone] Flor Dickson MD [address] [facility] [address] [place] [address] Monochorionic diamniotic twin gestation in [...] on file Legal Sex Female 11:44 PM ICU RN Gender Identity Not on file Sexual Orientation [...] US COMPREHENSIVE F/U Routine 11/08/2024 10:15 AM ICU RN Monochorionic diamniotic twin gestation in second trimester documented in this encounter Results * MFM Twins US Comprehensive F/U (11/08/2024 10:15 AM ICU RN) Anatomical Region Laterality Modality Ultrasound 11/08/2024 9:37 AM ICU RN Impressions 11/08/2024 11:28 AM ICU RN IMPRESSION ----- Monochorionic diamniotic twin gestation at [...] anemia polycythemia syndrome. Narrative 11/08/2024 11:28 AM ICU RN [facility] Surveillance US ----- Pat. Name: HEATHER CHÁVEZ Study Date: 11/08/2024 9:37am Pat. NO: [id number] Referring MD: PAMELA CUELLAR Site: Principal Gifts Officer: Chantell Jarquin RDMS : 1995 Age: 29 [...] CHÁVEZ Study Date: 11/08/2024 9:37am Pat. NO: [id number] Referring MD: PAMELA CUELLAR Site: Principal Gifts Officer: Chantell Jarquin RDMS : 1995 Age: 29 [...] anemia polycythemia syndrome. us Diane Lopez MD [facility] US ORDERABLES Edited Result - Final documented in this encounter Visit Diagnoses Diagnosis Monochorionic diamniotic twin gestation in second trimester documented in this encounter Care Teams Civil Estimator Relationship Specialty Start Date End Date No Ref-Primary, Physician PCP - General 12/04/21 documented as of this encounter
--- OUTSIDE RECORDS SUMMARY | 2024-12-24 00:22 | XMS_ITS | Encounter Summary ---
Author Organization [facility] Address [address] [place] [address] Care Team Providers Care Purchasing Agent Name Role Phone No Ref-Primary, Physician Primary Care Provider Flower Amato MD Unavailable [phone] Reason for Referral * Diagnostic Imaging Ultrasound (Routine) - Pending Review Specialty Diagnoses / Procedures Referred By Contac t Referred To Contact Radiology. 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 Procedures MFM Twins US Comprehensive F/U Flower Amato MD [address] [address] Phone: tel: fax: Referral ID Status Reason Start Date Expiration Date V isits Requested Visits Authorized [id number] Pending Review 11/14/2024 11/14/2025 1 1 ITALIST MEDICAL DIRECTOR Reason for Visit * Diagnostic Imaging Ultrasound (Routine) - Pending Review Specialty Diagnoses / Procedures Referred By Contac t Referred To Contact Radiology. 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 Procedures MFM Twins US Comprehensive F/U Flower mAato MD [address] [place] [address] Phone: tel: fax: Referral ID Status Reason Start Date Expiration Date V isits Requested Visits Authorized [id number] Pending Review 11/14/2024 11/14/2025 1 1 Encounter Details Date Type Department Care Team (Latest Contact Info) Description 11/22/2024 9:28 AM HOSPITALIST MEDICAL DIRECTOR - 11/22/2024 11:59 PM HOSPITALIST MEDICAL DIRECTOR Hospital Encounter [facility] [place] [address] [place] [phone] Nicole Núñez MD [address] [place] [address] Monochorionic diamniotic twin gestation in second trimester [...] on file Legal Sex Female 11:44 PM HOSPITALIST MEDICAL DIRECTOR Gender Identity Not on file Sexual [...] US COMPREHENSIVE F/U Routine 11/22/2024 11:09 AM HOSPITALIST MEDICAL DIRECTOR Monochorionic diamniotic twin gestation in second trimester documented in this encounter Results * MFM Twins US Comprehensive F/U (11/22/2024 11:09 AM HOSPITALIST MEDICAL DIRECTOR) Anatomical Region Laterality Modality Ultrasound 11/22/2024 9:46 AM HOSPITALIST MEDICAL DIRECTOR Impressions 11/23/2024 6:03 PM HOSPITALIST MEDICAL DIRECTOR IMPRESSION ----- Monochorionic diamniotic twin gestation [...] anemia polycythemia syndrome. Narrative 11/23/2024 6:03 PM HOSPITALIST MEDICAL DIRECTOR [facility] Surveillance US ----- Pat. Name: HEATHER CHÁVEZ Study Date: 11/22/2024 9:46am Pat. NO: [id number] Referring MD: PAMELA CUELLAR Site: Solid State Tester: José Miguel Hussein RDMS : 1995 Age: [...] the patient (reviewing medical records/tests), in direct xstj-qi-mriw contact with the patient counseling and discussing the plan of care, documenting the visit in the electronic medical record, and communicating with other health care connector and/or care coordination. Procedure Note Nicole Núñez MD - 11/23/2024 [facility] US ----- Pat. Name: HEATHER CHÁVEZ Study Date: 11/22/2024 9:46am Pat. NO: [id number] Referring MD: PAMELA CUELLAR Site: Solid State Tester: José Miguel Hussein RDMS : 1995 Age: [...] today's evaluation or if we can be offrusther service, please contact the Maternal- Medicine Center. anomalies may be present but not detected I spent a total of 15 minutes (excluding the ultrasound interpretation) onthe date of this encounter including preparing to see the patient(reviewing medical records/tests), in direct frkg-kx-jiwa contact with the patient counseling and discussingthe plan of care, documenting the visit in the electronic medical record,and communicating with other health care connector and/or care coordination. IMPRESSION ----- Monochorionic diamniotic [...] anemia polycythemia syndrome. us Flower Amato MD [facility] US ORDERABLES Edited Re sult - Final documented in this encounter Visit Diagnoses Diagnosis Monochorionic diamniotic twin gestation in second trimester documented in this encounter Care Teams Purchasing Agent Relationship Specialty Start Date End Date No Ref-Primary, Physician PCP - General 12/04/21 Flower Amato MD [address] [place] [address] Assigned OBGYN Provider 11/22/24 documented as of this encounter
--- OUTSIDE RECORDS SUMMARY | 2024-12-24 00:22 | XMS_ITS | Encounter Summary ---
Author Organization [place] Address [address] [place] [address] Care Team Providers Care Traffic Administrator Name Role Phone No Ref-Primary, Physician Primary Care Provider Flower Amato MD Unavailable [phone] Reason for Referral * Diagnostic Imaging Ultrasound (Routine) - Pending Review Specialty Diagnoses / Procedures Referred By Contac t Referred To Contact Radiology. Diagnoses Monochorionic diamniotic twin , antepartum Procedures MFM Twins US Comprehensive F/U Jesus Harmon MD [address] [place] [address] Phone: tel: fax: Referral ID Status Reason Start Date Expiration Date V isits Requested Visits Authorized [id number] Pending Review 12/05/2024 12/05/2025 1 1 LRY DRILLING MACHINE OPERATOR * Diagnostic Imaging Ultrasound (Routine) - Pending Review Specialty Diagnoses / Procedures Referred By Contac t Referred To Contact Radiology. Diagnoses Monochorionic diamniotic twin , antepartum Procedures MFM Twins US Comprehensive F/U Jesus Harmon MD [address] [place] [address] Phone: tel: fax: Referral ID Status Reason Start Date Expiration Date V isits Requested Visits Authorized [id number] Pending Review 12/05/2024 12/05/2025 1 1 LRY DRILLING MACHINE OPERATOR Reason for Visit * Reason Comments Ultrasound RL2/UAR/MCA- mono/di twins, FGR fetus 2 Encounter Details Date Type Department Care Team (Latest Contact Info) Description 12/05/2024 12:15 PM JEWELRY DRILLING MACHINE OPERATOR Office Visit [facility] Maternal Medicine [facility] [address] [place] [address] Karin Esteban MD [address] [place] [address] Jesus Harmon MD [address] [place] [address] Monochorionic diamniotic twin , antepartum [...] on file Legal Sex Female 11:44 PM JEWELRY DRILLING MACHINE OPERATOR Gender Identity Not on file Sexual Orientation Not on file documented as of this encounter Last Filed Vital Signs Vital Sign Reading Time Taken Comments Blood Pressure 111/70 12/05/2024 1:59 PM JEWELRY DRILLING MACHINE OPERATOR Pulse 73 12/05/2024 1:59 PM JEWELRY DRILLING MACHINE OPERATOR Temperature - - Respiratory Rate 18 12/05/2024 1:59 PM JEWELRY DRILLING MACHINE OPERATOR Oxygen Saturation 100% 12/05/2024 1:59 PM JEWELRY DRILLING MACHINE OPERATOR Inhaled Oxygen Concentration - - Weight - - Height - - Body Mass Index - - documented in this encounter Progress Notes * Jesus Harmon MD - 12/05/2024 12:15 PM CST Please see Imaging tab under Chart Review for details of today's visit. Jesus Harmon LRY DRILLING MACHINE OPERATOR documented in this encounter Nursing [...] to patient. Pt met with Dr. Joe (spinning mule tender) today. Pt discharged stable and ambulatory. Jennifer Arias RN LRY DRILLING MACHINE OPERATOR LRY DRILLING MACHINE OPERATOR documented in this encounter Miscellaneous Notes * Addendum Note - Jennifer Arias RN - 12/05/2024 12:15 PM CSTAddended by: JENNIFER ARIAS on: 12/05/2024 02:04 PM Modules accepted: Orders LRY DRILLING MACHINE OPERATOR documented in this encounter Plan of Treatment Not on file documented as of this encounter Results * MFM Twins US Comprehensive F/U (12/10/2024 2:29 PM JEWELRY DRILLING MACHINE OPERATOR) Anatomical Region Laterality Modality Ultrasound 12/10/2024 1:23 PM JEWELRY DRILLING MACHINE OPERATOR Impressions 12/10/2024 2:45 PM JEWELRY DRILLING MACHINE OPERATOR IMPRESSION ----- Patient is here for antepartum [...] flow in a-wave. Narrative 12/10/2024 2:45 PM [facility] Surveillance US ----- Pat. Name: DEANDRE LEYVA Study Date: 12/10/2024 1:23pm Pat. NO: [id number] Referring MD: PAMELA CUELLAR Site: Pipe Stem Repairer: Avani Ren RDMS : 1995 Age: 29 [...] LEYVA Study Date: 12/10/2024 1:23pm Pat. NO: [id number] Referring MD: PAMELA CUELLAR Site: Pipe Stem Repairer: Avani Ren RDMS : 1995 Age: 29 [...] in a-wave. us Jesus Harmon MD [facility] US ORDERABLES Edited Result - Final * [facility] Twins US Comprehensive F/U (12/07/2024 11:40 AM JEWELRY DRILLING MACHINE OPERATOR) Anatomical Region Laterality Modality Ultrasound 12/07/2024 10:4 5 AM JEWELRY DRILLING MACHINE OPERATOR Impressions 12/07/2024 1:23 PM JEWELRY DRILLING MACHINE OPERATOR IMPRESSION ----- Patient here for [...] bladder is visualized. Narrative 12/07/2024 1:23 PM JEWELRY DRILLING MACHINE OPERATOR Surveillance US ----- Pat. Name: DEANDRE LEYVA Study Date: 12/07/2024 10:45am Pat. NO: [id number] Referring MD: PAMELA CUELLAR Site: Pipe Stem Repairer: Kenyetta Lyons RDMS : 1995 Age: 29 [...] twin pregnancies with selective intrauterine growth restriction. [place] Journal of Obstetrics and Gynecology, 203(4), 333.e1-7. ? Radha SJ, et al. (2018). Consensus definition of growth restriction: A Moulton procedure. Ultrasound in Obstetrics & Gynecology, 52(1), 24-29. ? Luisa Dennis et al. (2020). Twin complications: The risk of single intrauterine demise in monochorionic twins. Diagnosis, 40(9), 3485-0245. ? Boris Dennis, et al. (2012). mortality [...] LEYVA Study Date: 12/07/2024 10:45am Pat. NO: [id number] Referring MD: PAMELA CUELLAR Site: Pipe Stem Repairer: Kenyetta Lyons RDMS : 1995 Age: 29 [...] in cases of AREDF in sFGR is [id number] weeks (Radha et al., 2018), though survival [...] for repeat Doppler assessment. References: ? Nando Anutnez, et al. (2018). Selective intrauterine growth restriction inmonochorionic twins. Best Practice & Research Clinical Obstetrics &Gynaecology, 49, 65-76. ? Vidal Calles, et al. (2010). The outcome of monochorionic diamniotic twinpregnancies with selective intrauterine growth restriction. AmericanJournal of Obstetrics and Gynecology, 203(4), 333.e1-7. ? Radha HALL, et al. (2018). Consensus definition of growthrestriction: A Moulton procedure. Ultrasound in Obstetrics & Gynecology,52(1), 24-29. ? Luisa Dennis, et al. (2020). Twin complications: The risk ofsingle intrauterine demise in monochorionic twins. PrenatalDiagnosis, 40(9), 1229-7985. ? Boris Dennis, et al. (2012). mortality [...] bladder is visualized. us Jesus Harmon MD [facility] US ORDERABLES Edited Result - Final documented in this encounter Visit Diagnoses Diagnosis Monochorionic diamniotic twin , antepartum- Primary Twin , antepartum Poor growth affecting management of mother in second trimester, fetus 2 Umbilical cord complication, unspecified cord complication, fetus 2 Monochorionic diamniotic twin , antepartum Twin , antepartum Monochorionic diamniotic twin , antepartum Twin , antepartum documented in this encounter Care Teams Traffic Administrator Relationship Specialty Start Date End Date No Ref-Primary, Physician PCP - General 12/04/21 Flower Amato MD [address] [address] Assigned OBGYN Provider 11/22/24 documented as of this encounter
--- OUTSIDE RECORDS SUMMARY | 2024-12-24 00:23 | XMS_ITS | Encounter Summary ---
Author Organization [facility] Address [address] [place] [address] Care Team Providers Care Field Crop Ii Farmworker Name Role Phone No Ref-Primary, Physician Primary Care Provider Flower Aamto MD Unavailable [phone] Reason for Referral * Diagnostic Imaging Ultrasound (Routine) - Pending Review Specialty Diagnoses / Procedures Referred By Contac t Referred To Contact Radiology. Diagnoses Monochorionic diamniotic twin gestation Procedures MFM Twins US Comprehensive F/U Diane Lopez MD [address] [place], [place] [address] [address] [address] Phone: tel: fax: Referral ID Status Reason Start Date Expiration Date V isits Requested Visits Authorized [id number] Pending Review 10/19/2024 10/19/2025 1 1 FILLER Reason for Visit * Diagnostic Imaging Ultrasound (Routine) - Pending Review Specialty Diagnoses / Procedures Referred By Contac t Referred To Contact Radiology. Diagnoses Monochorionic diamniotic twin gestation Procedures MFM Twins US Comprehensive F/U Diane Lopez MD [address] [address] Phone: tel: fax: Referral ID Status Reason Start Date Expiration Date V isits Requested Visits Authorized [id number] Pending Review 10/19/2024 10/19/2025 1 1 Encounter Details Date Type Department Care Team (Latest Contact Info) Description 11/30/2024 1:31 PM HOLE FILLER - 11/30/2024 11:59 PM HOLE FILLER Hospital Encounter [facility] Maternal Medicine Center [place] [address] [place] [phone] Nicole Núñez MD [address] [place], [place] [address] Monochorionic diamniotic twin gestation in second trimester [...] on file Legal Sex Female 11:44 PM HOLE FILLER Gender Identity Not on file Sexual Orientation [...] US COMPREHENSIVE F/U Routine 11/30/2024 3:11 PM HOLE FILLER Monochorionic diamniotic twin gestation in second trimester documented in this encounter Results * MFM Twins US Comprehensive F/U (11/30/2024 3:11 PM HOLE FILLER) Anatomical Region Laterality Modality Ultrasound 11/30/2024 2:04 PM HOLE FILLER Impressions 11/30/2024 8:09 PM HOLE FILLER IMPRESSION ----- Monochorionic diamniotic twin gestation at [...] wave and reversal. Narrative 11/30/2024 8:09 PM HOLE FILLER [facility] Surveillance US ----- Pat. Name: HEATHER CHÁVEZ Study Date: 11/30/2024 2:04pm Pat. NO: [id number] Referring MD: PAMELA CUELLAR Site: Western Philosophy Professor: Kenyetta Lyons RDMS : 1995 Age: 29 [...] options at this time including referral to [facility] for consideration of laser procedure [...] discussed likely plan for delivery at the [place]. Return to primary provider for continued care. If you have questions regarding today's evaluation or if we can be of further service, please contact the Maternal- Medicine Center. anomalies may be present but not detected I spent a total of 15 minutes (excluding the ultrasound interpretation) on the date of this encounter including preparing to see the patient (reviewing medical records/tests), in direct abft-yv-tqbv contact with the patient counseling and discussing the plan of care, documenting the visit in the electronic medical record, and communicating with other health patient care technician instructor and/or care coordination. Procedure Note Nicole Núñez MD - 11/30/2024 Surveillance US ----- Pat. Name: HEATHER CHÁVEZ Study Date: 11/30/2024 2:04pm Pat. NO: [id number] Referring MD: PAMELA CUELLAR Site: [employer] Professor: Kenyetta Lyons RDMS : 1995 Age: 29 [...] options at this time including referral to [facility] for consideration oflaser procedure to [...] also discussed likely plan for delivery [facility]. Return to primary provider for continued care. If you have questions regarding today's evaluation or if we can be offurther service, please contact the Maternal- Medicine Center. anomalies may be present but not detected I spent a total of 15 minutes (excluding the ultrasound interpretation) onthe date of this encounter including preparing to see the patient(reviewing medical records/tests), in direct felz-jk-ditc contact with the patient counseling and discussingthe plan of care, documenting the visit in the electronic medical record,and communicating with other health patient care technician instructor and/or care coordination. IMPRESSION ----- Monochorionic diamniotic [...] abnormal; intermittent depressed A waveand reversal. us Diaen Lopez MD [facility] ORDERABLES Edited Result - Final documented in this encounter Visit Diagnoses Diagnosis Monochorionic diamniotic twin gestation in second trimester documented in this encounter Care Teams Field Crop Ii Farmworker Relationship Specialty Start Date End Date No Ref-Primary, Physician PCP - General 12/04/21 Flower Amato MD [address] [facility] [address] [place] [address] Assigned OBGYN Provider 11/22/24 documented as of this encounter
--- OUTSIDE RECORDS SUMMARY | 2024-12-24 00:23 | XMS_ITS | Encounter Summary ---
Author Organization [place] Address [address] [facility] [place] [address] Care Team Providers Care Cone Sewer Name Role Phone No Ref-Primary, Physician Primary Care Provider Flower Amato MD Unavailable [phone] Reason for Visit * Reason Comments Ultrasound F/U comp with MCA/UA R to evaluate Encounter Details Date Type Department Care Team (Late st Contact Info) Description 12/07/2024 10:45 AM LANDSCAPE CONTRACTOR Office Visit [facility] [place] [address] [place] [address] Jaren Rodriguez MD [address] [place] [address] Poor growth affecting management of [...] on file Legal Sex Female 11:44 PM LANDSCAPE CONTRACTOR Gender Identity Not on file Sexual Orientation [...] twin pregnancies with selective intrauterine growth restriction. [place] Journal of Obstetrics and Gynecology, 203(4), 333.e1-7. Radha HALL, et al. (2018). Consensus definition of growth restriction: A [place] procedure. Ultrasound in Obstetrics & Gynecology, 52(1), 24-29. Luisa M, et al. (2020). Twin complications: The risk of single intrauterine demisein monochorionic twins. Diagnosis, 40(9), 5054-3585. Boris M, et al. (2012). mortality and [...] minutes (EXCLUDING ANY ULTRASOUND INTERPRETATION), including both mxxj-ba-tdha and ozu-yrze-do-face on the date of the encounter, addressing the above diagnosis. Activities performed in this time include chart review, obtaining / reviewing history, performing a medically necessary evaluation, documentation and Charge activities: counseling, care coordination, ordering tests, and reviewing results, equivalent to medical decision making that is of high complexity. SCAPE CONTRACTOR documented in this encounter Nursing Notes * [...] this time. Pt left amb and stable. SCAPE CONTRACTOR documented in this encounter Plan of Treatment Not on file documented as of this encounter Visit Diagnoses Diagnosis Poor growth affecting management of mother in second trimester, fetus 2- Primary Monochorionic diamniotic twin , antepartum Twin , antepartum documented in this encounter Care Teams Cone Sewer Relationship Specialty Start Date End Date No Ref-Primary, Physician PCP - General 12/04/21 Flower Amato MD [address] [address] Assigned OBGYN Provider 11/22/24 documented as of this encounter
--- OUTSIDE RECORDS SUMMARY | 2024-12-24 00:23 | XMS_ITS | Encounter Summary ---
Author Organization [place] Address [address] [place] [address] Care Team Providers Care Concreter Name Role Phone No Ref-Primary, Physician Primary Care Provider Flower Amato MD Unavailable [phone] Encounter Details Date Type Department Care [...] on file Legal Sex Female 11:44 PM SCREEN REPAIRER CRUSHER Gender Identity Not on file Sexual Orientation Not on file documented as of this encounter Plan of Treatment Not on file documented as of this encounter Visit Diagnoses Not on filedocumented in this encounter Care Teams Concreter Relationship Specialty Start Date End Date No Ref-Primary, Physician PCP - General 12/04/21 Flower Amato MD [address] [place] [address] Assigned OBGYN Provider 11/22/24 documented as of this encounter
--- OUTSIDE RECORDS SUMMARY | 2024-12-24 00:23 | XMS_ITS | Encounter Summary ---
Author Organization [place] Address [address] [facility] [place] [address] Care Team Providers Care Hr Coordinator Name Role Phone No Ref-Primary, Physician Primary Care Provider Flower Amato MD Unavailable [phone] Reason for Referral * Consultation (Routine: Next available opening) - Pending Review Specialty Diagnoses / Procedures Referred By Noa lilly Referred To Contact Gastroenterology Diagnoses Esophageal spasm Aure Guevara MD [address] [place] [address] Phone: tel: fax: Referral ID Status Reason Start Date Expiration Date V isits Requested Visits Authorized [id number] Pending Review 12/23/2024 12/23/2025 1 1 Question Answer Reason for Referral: General GI Patient Scheduling Instructions: [facility] will call you to coordinate your care as prescribed by the provider. If you don t hear from a patient support representative within 2 business days, please call . Additional Information: esophagael spasm Comments Please be aware that coverage of these services is subject to the terms and limitations of your health insurance plan. Call member services at your health plan with any benefit or coverage questions. [facility] will call you to coordinate your care as prescribed by the provider. If you don t hear from a patient support representative within 2 business days, please call . UX ENGINEER Encounter Details Date Type Department Care Team (Late st Contact Info) Description 12/23/2024 Orders Only [facility] [address] [facility] [facility] [address] [place] [phone] Aure Guevara MD [address] [place] [address] Esophageal spasm (Primary Dx) Social History Tobacco Use Types Packs/Day Years Used Date Smoking Tobacco: Never Smokeless Tobacco: Never Alcohol Use Standard Drinks/Week Comments Never 0 (1 standard drink = 0.6 oz pur e alcohol) PHQ-2 Answer Date Recorded PHQ-2 Score 2 12/10/2024 [place] Depression Scale Answer Date Recorded Last EPDS [...] in an abandoned building, in an overnight fci, or couch-surfing.) No 12/10/2024 Are you worried [...] on file Legal Sex Female 11:44 PM UI UX ENGINEER Gender Identity Not on file Sexual Orientation Not on file documented as of this encounter Plan of Treatment Scheduled Referrals Name Type Priority Associated Diagnoses Orde r Schedule Adult GI O And M Supervisor Referral - Consult Only Referral Routine: Next available opening Esophageal spasm Expected: 12/23/2024 (Approximate), Expires: 12/23/2025 documented as of this encounter Visit Diagnoses Diagnosis Esophageal spasm- Primary Dyskinesia of esophagus documented in this encounter Additional Health Concerns Assessment Noted Time PHQ-9 Depression Total Score: 7 12/10/19 25 2:56 PM UI UX ENGINEER documented as of this encounter Care Teams Hr Coordinator Relationship Specialty Start Date End Date No Ref-Primary, Physician PCP - General 12/04/21 Flower Amato MD [address] [address] Assigned OBGYN Provider 11/22/24 documented as of this encounter
--- OUTSIDE RECORDS SUMMARY | 2024-12-24 00:23 | XMS_ITS | Encounter Summary ---
Author Organization [facility] Address [address] [place] [address]. [place] [address] Care Team Providers Care Book Retailer Name Role Phone No Ref-Primary, Physician Primary Care Provider Flower Amato MD Unavailable [phone] Reason for Referral * Home Health Therapies & Aides (Routine: Next available opening) Specialty Diagnoses / Procedures Referred By Contac t Referred To Contact Diagnoses S/P section [address] [address] Phone: tel: fax: Referral ID Status Reason Start Date Expiration Date Visits Re quested Visits Authorized Question Answer Please see patient within 48 hours of discharge Reason for Referral /Low Milk Supply Clinic Name and Callback Information for Results/Concerns [id number] Comments If your home visit was not scheduled during your hospital stay, you should receive a call from [facility] within 24 hours after discharge to schedule your ordered home visit. If you have not heard by then, please call [phone]. PLANNING AIDE Reason for Visit * Reason Comments monitoring * Auth/Cert (Routine) Specialty Diagnoses / Procedures Referred By Contac t Referred To Contact cable tester Diagnoses Monochorionic diamniotic twin , antepartum Maternity*Rudi 04/07/25/mono/di twins [facility] [address] [place] [address] Phone: tel: Referral ID Status Reason Start Date Expiration Date Visits Re quested Visits Authorized [id number] 1 1 Encounter Details Date Type Department Care Team (Latest Contact Info) Description 12/10/2024 3:17 PM CITY PLANNING AIDE - 12/23/2024 4:30 PM CITY PLANNING AIDE Hospital Encounter [facility] [address] [place] [address] Jesus Harmon MD [address] [place], [place] [address] Karin Esteban MD [address] [place] [address] Emil Ahmadi MD [address] [place] [address] Monochorionic diamniotic twin , antepartum (Primary Dx); Gastroesophageal reflux disease without esophagitis; S/P section Discharge Disposition: Home or Self Care Social History Tobacco Use Types Packs/Day Years Used Date Smoking Tobacco: Never Smokeless Tobacco: Never Alcohol Use Standard Drinks/Week Comments Never 0 (1 standard drink = 0.6 oz pur e alcohol) PHQ-2 Answer Date Recorded PHQ-2 Score 2 12/10/2024 [place] Depression Scale Answer Date Recorded Last EPDS [...] in an abandoned building, in an overnight snf, or couch-surfing.) No 12/10/2024 Are you worried [...] file Legal Sex Female 11:44 PM CITY PLANNING AIDE Gender Identity Not on file Sexual Orientation Not on file documented as of this encounter Last Filed Vital Signs Vital Sign Reading Time Taken Comments Blood Pressure 119/87 12/23/2024 9:12 AM CITY PLANNING AIDE Pulse 66 12/23/2024 9:12 AM CITY PLANNING AIDE Temperature 36.8 C (98.3 F) 12/23/2024 9:12 AM CITY PLANNING AIDE Respiratory Rate 16 12/23/2024 9:12 AM CITY PLANNING AIDE Oxygen Saturation 99% 12/22/2024 11:39 AM CITY PLANNING AIDE Inhaled Oxygen Concentration - - Weight 67.4 kg (148 lb 8 oz) 12/23/2024 11:09 AM CITY PLANNING AIDE Height - - Body Mass Index 24.71 12/04/2021 10:10 PM CITY PLANNING AIDE documented in this encounter Discharge Instructions * Discharge Instructions* Nena Ren RN - 12/23/2024 7:48 AM CITY PLANNING AIDE Images from the original note were not [...] of your health care provider. Copyright 2020 [facility]. All rights reserved. Clinically reviewed by Amrita Damico RNC-OB, MSN. [place] [id number] - Rev 12/23. Section: What to Expect [...] your doctor if you can take an jatr-zju-vlrjpwe medicine. If you think your pain medicine [...] your breast. This is sometimes called the [employer] hold. Follow-up care is a nixon part [...] Call the Suicide and Crisis Lifeline at 826. Call 3-787-458-TALK ( ). Text HOME to 759473 to access the Crisis Text Line. Consider saving these numbers in your phone. Go to [email or web address] for more information or to chat online. Call your doctor or cloth shrinking machine operator now or seek immediate medical care [...] be sure to contact your doctor or cloth shrinking machine operator if: Your vaginal bleeding isn't decreasing. You feel sad, anxious, or hopeless for more than a few days. You are having problems with your breasts or . Where can you learn more? Go to https://www.Webb[employer].net/patiented Enter M806 in the search box to learn more about Section: What to Expect at Home. Current as of: February 28, 2024 Content Version: 14.3 ?? 2023 [employer]. Care instructions adapted under license by your healthcare professional. If you have questions about a medical condition or this instruction, always ask your healthcare professional. [employer] disclaims any warranty or liability for your use of this information. PLANNING AIDE PLANNING AIDE documented in this encounter Medications at Time [...] Guevara MD - 12/23/2024 7:53 AM CST [facility] Note Name: Deandre Chávez S: [...] referral at discharge # Asthma - Continue CHEMIST albuterol Medically Ready for Discharge: Anticipate discharge later today Sujey Lyons MD PGY1 [facility] Obstetrics, Gynecology, & Women's Health [...] 1-2 weeks Aure Guevara MD 10:33 AM PLANNING AIDE PLANNING AIDE * Jenny Newby MD - 12/21/2024 7:27 PM CST [facility] Note Name: Deandre Chávez S: [...] at this time. # Asthma - Continue CHEMIST albuterol Medically Ready for Discharge: Anticipate discharge later today vs tomorrow. Guevara Amin DO, MA [facility]- PGY3 7:29 AM December 22, 2024 [facility] staff: Appreciate note by Dr. Amin. I have seen and examined the patient without the resident. I have reviewed, edited, and agree with the note. having a really hard time sleeping d/t anxiety. Indian like she just had a panic attack. [...] Jenny Newby MD, FACOG 12/22/2024 11:49 AM PLANNING AIDE PLANNING AIDE * Chantell Jolley - 12/21/2024 1:19 PM CST SPIRITUAL HEALTH SERVICES Progress Note, [facility] Supportive visit with Deandre and Los per the delivery of their twin girls Micaela and Isidra yesterday morning. Family is familiar to this mortgage loan underwriter from antepartum stay. I wished them congratulations [...] gentleness as she navigates very tender moments. Anglican suze continues to be a primary support [...] again next week. Chantell Jolley MDiv Associate Investigative Research Specialist Pager [phone] Reachable by Musations * [facility] remains available 23/05 for emergent requests/referrals, either by having the switchboard pagethe on-call patient care technician or by entering an ALEX/STAT consult in [facility] (this will also page the on-call patient care technician). Routine [facility] consults receive an initial response within 24 hours.* PLANNING AIDE PLANNING AIDE * Jenny Newby MD - 12/21/2024 7:12 AM CST [facility] Note Name: Deandre Chávez S: [...] BC: Not discussed # Asthma - Continue CHEMIST albuterol Medically Ready for Discharge: Anticipated in 2-4 Days Maureen Cardenas MD PLASTIC DESIGN APPLIER PGY-3 12/21/2024 7:13 AM [facility] staff: Appreciate note by Dr. Cardenas. I have seen and examined the patient without the resident. I have reviewed, edited, and agree with the note. Jenny Newby MD, FACOG 12/21/2024 8:55 AM PLANNING AIDE PLANNING AIDE * Katerina Hardy MD - 12/21/2024 6:13 [...] care for this patient. Katerina Hardy MD Senior Support Engineer, [place]-1, PGY-2 Cosigned by Mary Lou Abel MD at 12/21/2024 4:26 PM CITY PLANNING AIDE PLANNING AIDE PLANNING AIDE Associated attestation - Mary Lou Abel MD - 12/21/2024 4:26 PM CITY PLANNING AIDE Physician Attestation I agree with the information in this note. Mary Lou Abel MD * Joceline Grant MD - 12/20/2024 2:59 PM CST To bedside with Dr Ahmadi to de-brief today's events. Reviewed surgical course and intra-op findings. No questions at this time. Discussed that S team will follow patient for remainder of hospitalization. Joceline Grant MD Instructor Of Education PGY-3 12/20/24 3:00 PM PLANNING AIDE * Kaia Spence RN - 12/20/2024 2:00 [...] Response: Patient tolerated transfer and is stable. PLANNING AIDE * Emil Ahmadi MD - 12/20/2024 9:52 AM CST MFM Progress Note- Acute Event Received urgent Vocera message from bedside RN at 0847 regarding variable decelerations on monitoring. At that time, this mortgage loan underwriter was on the shuttle to the [facility] for rounds- got off shuttle outside of [facility] and presented to bedside at 0853. Bedside ultrasound performed to aid in finding heart tones for twin A. From [id number], FHT reassuring for both twins with re-positioning [...] was present at bedside Joceline Grant MD Instructor Of Education PGY-3 12/20/24 10:06 AM Addendum: Note entered [...] above events and care Joceline Grant MD Instructor Of Education PGY-3 12/20/24 2:25 PM Physician Attestation I saw this patient with the resident and agree with the resident/fellow's findings and plan of careas documented in the note. Nixon findings: I was notified of the decelerations on my way to the [facility]. Senior resident left transport to assess and Dr. Frank on site at labor unit. Returned after [facility] cares toassess patient who had reassuring assessment [...] Service (when I saw the patient): 12/20/24 PLANNING AIDE PLANNING AIDE PLANNING AIDE * Shena Eugene RN - 12/20/2024 9:35 AM CST Magnesium infusion loading dose started at 0933. VSS. Lung sounds clear throughout. Apical pulse regular. DTRs WNL. Repeat BP checks initiated. Continuous pulse oximetry monitoring initiated. PLANNING AIDE * Diana Kaye RD - 12/20/2024 9:18 AM CST CLINICAL NUTRITION SERVICES Reviewed nutrition risk factors due to LOS. No concerns with oral intake per clinical documentation spec Reviewed wt hx. No unintentional wt loss. No indication of pressure injury. Follow Up / Monitoring: RD to sign off at this time. RD may be consulted if needs arise. Diana Kaye MS, RDN, LD TCU/OB/Ortho Clinical Dietitian Available via phone and Vocera Vocera: 4B OB Clinical Dietitian Weekend/Holiday Vocera: Weekend Holiday Clinical Dietitian [Multi Site Groups] PLANNING AIDE * Augustina Wei CCLS - 12/19/2024 3:41 PM CST 12/19/[address] [facility] End Zone Method in-person Individuals Present Caregiver/Adult Family Member;Siblings/Child Family Members Comments (names or other info) Pt's , pt's mother, pt's children [place] (3 yo) and Alexis (5 yo) Intervention Developmental Play Developmental Play Comment Pt's family members participated in play throughout the End Zone. [place] dad played with LETICIA Jam, bubble hockey, and Minecraft on the PlayStation with volunteer Candy.[place] and grandma colored on the Jamboard, did dauber art, and colored in coloring books at the arttables with volunteer Luisa. Time Spent Direct Patient Care 110 Indirect Patient Care 5 Total Time Spent (Calc) 115 PLANNING AIDE * Emil Ahmadi MD - 12/19/2024 8:43 AM CST [facility] Antepartum Progress Note Subjective Doing ok this [...] Location: Right arm Patient Position: Semi-Baker's Semi-Baker's Semi-Bkaer's Cuff Size: Adult Regular Adult Regular Adult [...] bpm, moderate variability, accelerations absent, no decelerations Harmon: 0 contractions in 10 minutes Impression: reactive, [...] Los have discussed her risks with the [facility] team in detail at previous outpatient visits, [...] x2 (next 12/20) # GERD - Continue CHEMIST omeprazole - Famotidine 10 mg daily - [...] Anticipated in 5+ Days Joceline Grant MD Instructor Of Education PGY-3 12/19/24 8:51 AM Physician Attestation I [...] Service (when I saw the patient): 12/19/24 PLANNING AIDE PLANNING AIDE PLANNING AIDE * Deandre Meza, CCLS - 12/18/2024 5:18 PM CST 12/18/24 1700 Child Life Location [facility] End Zone Method in-person Individuals Present [...] Care 5 Total Time Spent (Calc) 30 PLANNING AIDE * Rosalia Lopez CCLS - 12/18/2024 3:59 PM CST 12/18/24 1138 Child Life Location [facility] Birthplace Interaction Intent Follow Up/Ongoing support [...] Care 15 Total Time Spent (Calc) 60 PLANNING AIDE * Chantell Jolley - 12/18/2024 11:00 AM CST SPIRITUAL HEALTH SERVICES Progress Note [facility] ([facility] Antepartum Encountered Deandre and spouse Los in [...] them dearly, and appreciate the assistance from [facility] to help prepare for time together in the hospital. Deandre and Los are coping well and are grounding supports to one another. 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 They celebrate reaching 24 weeks GA and continue to take things one day at a time, practicing thankfulness for each new day as a milestone for their babies. Suze is central to meaning making and coping. No new spiritual needs at this time, [facility] to continue following. Chantell Jolley MDiv Associate Investigative Research Specialist Pager [phone] Reachable by [employer] * [facility] remains available 23/05 for emergent requests/referrals, either by having the switchboard pagethe on-call patient care technician or by entering an ALEX/STAT consult in [facility] (this will also page the on-call patient care technician). Routine [facility] consults receive an initial response within 24 hours.* PLANNING AIDE * Emil Ahmadi MD - 12/18/2024 9:16 AM CST [facility] Antepartum Progress Note Subjective Feeling well today. [...] bpm, moderate variability, accelerations absent, no decelerations Harmon: 0-1 contractions in 10 minutes Impression: reactive, [...] Los have discussed her risks with the [facility] team in detail at previous outpatient visits, [...] x2 (next 12/20) # GERD - Continue CHEMIST omeprazole - Famotidine 10 mg daily - [...] Anticipated in 5+ Days Joceline Grant MD Instructor Of Education PGY-3 12/18/24 9:25 AM Physician Attestation I saw this patient with the resident and agree with the resident/fellow's findings and plan of careas documented in the note. Nixon findings: Mccook-di twins with sFGR twin 2 and abnormal [...] Service (when I saw the patient): 12/18/24 PLANNING AIDE PLANNING AIDE * Emil Ahmadi MD - 12/17/2024 9:23 AM CST [facility] Antepartum Progress Note Subjective Patient feeling well [...] subtle late appearing deceleration at 0948, 0957 Harmon: 0-1 contractions in 10 minutes Impression: reactive, [...] shows episodes of reverse flow in a-wave. [facility] OB Comprehensive follow up US (12/17/24) 24w1d [...] Antibody Screen Negative Negative SPECIMEN EXPIRATION DATE [id number] Assessment/Plan 29 year old at 24w1d admitted [...] Type III in Twin B. Deandre and oLs have discussed her risks with the [facility] team in detail at previous outpatient visits, [...] GERD Patient endorses GERD, currently managed on CHEMIST omeprazole and small frequent meals with improvement in symptoms - Continue CHEMIST omeprazole - Famotidine 10 mg daily - [...] Service (when I saw the patient): 12/17/24 PLANNING AIDE PLANNING AIDE * Marly Anna, RN - 12/17/2024 7:03 AM CST Patient stable this morning. VSS, afebrile. Denies vaginal bleeding, LOF, or contractions. PIV flushed. Patient resting comfortably. PLANNING AIDE * Cameron Leach MD - 12/16/2024 10:56 AM CST [facility] Antepartum Progress Note Subjective Patient doing well [...] 0947 to 0952; #2: 1028 to 1032) Harmon: 0-1 contractions in 10 minutes Impression: reactive, appropriate for gestational age Labs: Rh positive, antibody negative Rubella non-immune Hepatitis B sAg NR, Hepatitis C NR, HIV NR, RPR negative GCT not yet performed GBS positive Last Pap: 07/16/25 NILM Imaging: [facility] Comprehensive US (12/10/24) Fetus 1 Cardiac activity [...] Los have discussed her risks with the [facility] team in detail at previous outpatient visits, [...] GERD Patient endorses GERD, currently managed on CHEMIST omeprazole and small frequent meals. Discussed importance of weight gain to improve outcomes. - Continue CHEMIST omeprazole - Famotidine 10 mg daily - [...] 5+ Days Cameron Leach MD, MPH, MS [facility] Maternal Medicine Resident, PGY-3 12/16/2024 11:07 AM To reach the MATERNAL MEDICINE team for this patient, please page [phone] Cosigned by Karin Esteban MD at 12/16/2024 11:58 AM CITY PLANNING AIDE PLANNING AIDE PLANNING AIDE Associated attestation - Karin Esteban MD - 12/16/2024 11:58 AM CITY PLANNING AIDE MFM Attending Attestation I saw this patient [...] I spent a total of 45 minutes slcy-ww-sbxy or coordinating care of Ms. Chávez. Over 50% of my timeon the unit was spent counseling the patient and /or coordinating care regarding diagnosis, diagnostic results, prognosis and risks and benefits of treatment options. Date of service (when I saw the patient): 12/16/2024 Karin Esteban MD Slide Machine Tender, PLASTIC DESIGN APPLIER Maternal- Medicine [phone] (Pager) * Narda Veags RN - 12/16/2024 6:59 AM CST Pt states she is having increase in fluid leaking and feeling her baby move less. Placed on monitor. Monitoring extended due to decreased reactivity and prolonged decel x1. Dr. Zelaya informed. Willcontinue to monitor FHT. PLANNING AIDE * Hue Zelaya MD - 12/15/2024 9:30 AM CST [facility] Antepartum Progress Note Subjective Patient doing well [...] bpm, moderate variability, accelerations present, decelerations absent Harmon: 0-1 contractions in 10 minutes Impression: reactive, [...] GERD Patient endorses GERD, currently managed on CHEMIST omeprazole and small frequent meals. Discussed importance of weight gain to improve outcomes. - Continue CHEMIST omeprazole - Famotidine 10 mg daily - [...] Karin Esteban MD at 12/15/2024 11:38 AM CITY PLANNING AIDE PLANNING AIDE PLANNING AIDE Associated attestation - Karin Esteban MD - 12/15/2024 11:38 AM CITY PLANNING AIDE MFM Attending Attestation I saw this patient [...] I spent a total of 45 minutes hclp-xv-fvkh or coordinating care of Ms. Chávez. Over 50% of my timeon the unit was spent counseling the patient and /or coordinating care regarding diagnosis, diagnostic results, prognosis and risks and benefits of treatment options. Date of service (when I saw the patient): 12/15/2024 Karin Esteban MD Slide Machine Tender, PLASTIC DESIGN APPLIER Maternal- Medicine [phone] (Pager) * Guevara Amin MD - 12/14/2024 [...] B: 150 bpm, moderate variability, accelerations present Harmon: 0 contractions in 10 minutes Impression: reactive, [...] as course progresses - Pap last 07/16/24, [facility] Imaging: [facility] US COMPREHENSIVE 12/11/24 Formal report pending: no further evidence of reverse flow in a-wave of DV waveform. [facility] US COMPREHENSIVE 12/13/24 Monochorionic diamniotic twin [...] #GERD Patient endorses GERD, currently managed on CHEMIST omeprazole and small frequent meals. Discussed importance of weight gain to improve outcomes. - Continue CHEMIST omeprazole - Famotidine 10 mg daily - [...] Karin Esteban MD at 12/14/2024 9:45 AM CITY PLANNING AIDE PLANNING AIDE PLANNING AIDE Associated attestation - Karin Esteban MD - 12/14/2024 9:45 AM CITY PLANNING AIDE MFM Attending Attestation I saw this patient [...] I spent a total of 45 minutes qkzp-nc-tpra or coordinating care of Ms. Chávez . Over 50% of my time on the unit was spent counseling the patient and /or coordinating care regarding diagnosis, diagnostic results, prognosis and risks and benefits of treatment options. Date of service (when I saw the patient): 12/14/2024 Karin Esteban MD Slide Machine Tender, PLASTIC DESIGN APPLIER Maternal- Medicine [phone] (Pager) * Rosalia Lopez CCLS - 12/13/2024 3:35 PM CST 12/13/24 1527 Child Life Location [facility] Birthplace Interaction Intent Follow Up/Ongoing support Method in-person Individuals Present Patient;Caregiver/Adult Family Member Comments (names or other info) Pt's present Intervention Supportive Check in Supportive Check in CCLS ran into pt and her in hallway, they shared [facility]. They were impressed with the space and expressed that it would be a fun space to bring the kids if they visit. Deandre inquired about movies available, particularly romantic comedies. CCLS provided three movies from the [facility], brought to pt's room. Deandre expressed appreciation, no other needs at this time. Time Spent Direct Patient Care 10 Indirect Patient Care 30 Total Time Spent (Calc) 40 PLANNING AIDE * Jenny De Souza MD - 12/13/2024 [...] B: 145 bpm, moderate variability, accelerations present Harmon: 0 contractions in 10 minutes Impression: reactive, [...] Antibody Screen Negative Negative SPECIMEN EXPIRATION DATE [id number] Labs: - Rh positive, Antibody negative - Rubella non-immune, Hepatitis B NR, Hepatitis C NR, HIV NR, RPR negative (1st trimester and on admission), GBS Positive - GCT at 24w if at that time - Other labs wnl - Imaging -- Dating: L=7w U/S -- Anatomy: see formal report - Immunizations: Discuss Flu, COVID as course progresses - Pap last 07/16/24, [facility] Imaging: [facility] TWIN US COMPREHENSIVE 12/11/24 Formal report pending: no further evidence of reverse flow in a-wave of DV waveform. [facility] TWIN US COMPREHENSIVE 12/13/24 Monochorionic diamniotic twin [...] Los have discussed her risks with the [facility] team in detail at previous outpatient visits, [...] #GERD Patient endorses GERD, currently managed on CHEMIST omeprazole and small frequent meals. Discussed importance of weight gain to improve outcomes. - Continue CHEMIST omeprazole - Famotidine 10 mg daily - [...] Jesus Harmon MD at 12/13/2024 3:35 PM CITY PLANNING AIDE PLANNING AIDE PLANNING AIDE Associated attestation - Jesus Harmon MD - 12/13/2024 3:35 PM CITY PLANNING AIDE Physician Attestation I saw this patient with [...] CCLS - 12/12/2024 4:38 PM CST 12/12/24 6457 Child Life Location [facility] End Zone Interaction Intent Introduction of Services [...] Care 5 Total Time Spent (Calc) 10 PLANNING AIDE * Rosalia Lopez CCLS - 12/12/2024 3:57 PM CST 12/12/24 [address] [facility] Birthplace (antepartum) Interaction Intent Introduction of [...] promote the best understanding. 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 Please contact this mortgage loan underwriter with needs as they arise. Time Spent Direct Patient Care 30 Indirect Patient Care 30 Total Time Spent (Calc) 60 PLANNING AIDE * Jenny De Souza MD - 12/12/2024 [...] B: 140 bpm, moderate variability, accelerations present Harmon: 0 contractions in 10 minutes Impression: reactive, [...] Will discuss - Feeding: Will discuss Imaging: [facility] COMPREHENSIVE 12/11/24 Formal report pending: no further evidence of reverse flow in a-wave of DV waveform. [facility] COMPREHENSIVE 12/10/24 Fetus 1 1) bladder is [...] #GERD Patient endorses GERD, currently managed on CHEMIST omeprazole and small frequent meals. Discussed importance of weight gain to improve outcomes. - Continue CHEMIST omeprazole - Famotidine 10 mg daily - [...] Jesus Harmon MD at 12/12/2024 8:31 PM CITY PLANNING AIDE PLANNING AIDE PLANNING AIDE Associated attestation - Jesus Harmon MD - 12/12/2024 8:31 PM CITY PLANNING AIDE Physician Attestation I saw this patient with [...] present, intermittent variable decelerations, rare late deceleration Harmon: 2-3 contractions in 10 minutes Impression: reactive, [...] Will discuss - Feeding: Will discuss Imaging: [facility] US COMPREHENSIVE 12/11/24 Formal report pending: no further evidence of reverse flow in a-wave of DV waveform. [facility] US COMPREHENSIVE 12/10/24 Fetus 1 1) [...] Los have discussed her risks with the [facility] team in detail at previous outpatient visits, [...] #GERD Patient endorses GERD, currently managed on CHEMIST omeprazole. Discussed importance of weight gain to improve outcomes. - Continue CHEMIST omeprazole - Carafate solution prn if symptoms [...] Jesus Harmon MD at 12/11/2024 10:58 AM CITY PLANNING AIDE PLANNING AIDE PLANNING AIDE Associated attestation - Jesus Harmon MD - 12/11/2024 10:58 AM CITY PLANNING AIDE Physician Attestation I saw this patient with [...] Women's Health Resident, PGY-3 12/11/2024 12:13 AM PLANNING AIDE documented in this encounter H&P Notes * Jenny De Souza MD - 12/10/2024 5:01 PM CST Images from the original note were not included. Antepartum History and Physical December 10, 2024 Deandre Chávez [id number] HPI Deandre Chávez is a 29 year [...] cephalic) will go by meaghan Payne for Madison. Twin B will go by meaghan Allen for [place]. Deandre and Los wish to avoid stillbirth [...] stay with her mother, who is a lower school spanish teacher in [place], while she is admitted in the hospital [...] tablet 500 mg 500 mg Oral BID OJneny Duenas MD diphenhydrAMINE (BENADRYL) capsule 25 mg [...] 10 mg Oral Q6H PRN Jenny De Sozua MD Or prochlorperazine (COMPAZINE) injection 10 mg [...] 150, minimal-moderate variability, accelerations present, no decelerations Harmon: rare ctxs Impression: overall reassuring for both [...] Status --------- ------ CBC with platelets and d...[[id number]] Abnormal Final result Please view results for these tests on the individual orders. ABO/Rh type and screen Narrative The following orders were created for panel order ABO/Rh type and screen. Procedure Abnormality Status --------- ------ Adult Type and Screen[[id number]] Final result Please view results for these [...] Antibody Screen Negative Negative SPECIMEN EXPIRATION DATE [id number] Imaging Comprehensive US (12/10/24) Fetus 1 Cardiac [...] Los have discussed her risks with the [facility] team in detail at previous outpatient visits, [...] #GERD Patient endorses GERD, currently managed on CHEMIST omeprazole. - Continue CHEMIST omeprazole - Consider GI cocktail if sx [...] Jesus Harmon MD at 12/11/2024 10:36 AM CITY PLANNING AIDE PLANNING AIDE PLANNING AIDE Associated attestation - Jesus Harmon MD - 12/11/2024 10:36 AM CITY PLANNING AIDE Physician Attestation -Late entry I saw this [...] this encounter Consult Notes * Jocelyn Subramanian, ADULT DAY CARE WORKER - 12/23/2024 10:00 AM CSTAssociated Order(s): SOCIAL WORK IP CONSULT Social Work Initial Consult General Information Assessment completed with: Patient, Deandre & Los Type of visit: NICU Psychosocial Assessment Reason for Consult: mental health concerns Living Environment: Primary caregiver: Deandre is a real time trader home performance laborer. Lives with: Deandre and Los reside in a home in [place], [place] with their 2 children Current living [...] Support System: Supportive Employment/Financial Patient's caregiver works full/department head: Los works full-time Patient works full/department head: No Coping/Stress Deandre reports having a strong [...] but Deandre shared that she has child study team director for the next 2 weeks. Los and [...] at this time. They are insured through [employer] and the twins will be added shortly. [...] follow for supportive intervention. CARLOS MANUEL Chow PLANNING AIDE * Sharyn Cervantes RN - 12/13/2024 11:16 PM CSTAssociated Order(s): NURSING TO CONSULT FOR VASCULAR ACCESS CARE IP CONSULT Consult received for Vascular access care. See LDA for details. For additional needs place Nursingto Consult for Vascular Access [id number] order in [facility]. PLANNING AIDE * Chantell Jolley - 12/12/2024 2:07 PM [...] Hinojosa. Deandre shared at length about her Anglican suze, which is foundational to her coping. [...] between churches and do not have a plastic press molder of their own. They welcome patient care technician support. I oriented them to rituals, like mormon, namings, etc. and Deandre will consider them. For now, Deandre considers each new day the goal and a gift. She had prayed to get to 22 weeks. We spoke of gentleness with herself while in this liminal space. Plan: Deandre would like to meet with [facility] about her older children Alexis and Carlos visiting in the near future. Referral sent. [facility] to follow closely. Chantell Jolley M.Div. Associate Investigative Research Specialist Pager [phone] Reachable via [employer] [facility] available 23/05 for emergent requests/referrals, either by paging the on-call patient care technician or by entering an ALEX/STAT consult in [employer] [facility], which will also page the on-call patient care technician. Assessment Saw pt Deandre Calles Saira per [...] in the care of her mom in [place], [place], where they will attend a private [employer] school her mother works at. This is a great comfort. She looks forward to their visiting in the coming week. [facility] consulted. Deandre is coping in this liminal time by taking things one day at a time, and by reminding herself, It was our prayer at 15 weeks to make it to this point... this is our answered prayer. She stated, We're honored to be their Mom and Dad as long as possible. Meaning, Beliefs, and Spirituality - Anglican suze is foundational to coping for this [...] friends. She is considering rituals, such as mormon, and welcomes continued spiritual care. PLANNING AIDE * Kathie Florence, COLLEGE ADMISSIONS COUNSELOR - 12/11/2024 11:38 AM CSTAssociated Order(s): CARE [...] to her , Los. They live in [place], [place]. These twins, Carole (Micaela) and Madison (Isidra) are their 3rd/4th babies. Their two children at home are Alexis (5) and Carlos (3). Assessment of Support Deandre and Los are surrounded with a strong support system. Deandre's mom will come to care for the kids while Los spends time here with Deandre. Her mom is a teacher at a private [employer] school in [place]. It is an ideal situation where Alexis [...] can work remotely. Deandre has [employer] through [facility]. The babies will be added to this [...] admission for supportive interventions. CARLOS MANUEL Bashir [facility] Clinical Plastic Maker Maternal Child Health Voicemail: [phone] Reachable via [employer] PLANNING AIDE * Prabha Ahmadi MD - 12/10/2024 9:00 PM CSTAssociated Order(s): PEDS NEONATOLOGY IP CONSULT Images from the original note were not included. [facility] NICU Antepartum Counseling Consult I was [...] discharge home around theirdue date with fewer halfway complications. I expressed that I cannot predict [...] I left her with the educational website [email or web address]. I discussed the benefits of dnei-ql-ggja contact and the importance of their presence [...] DO - Medicine Fellow Intensive Care Unit [facility] Cosigned by Maria Isabel Pino MD at 12/12/2024 1:29 PM CITY PLANNING AIDE PLANNING AIDE PLANNING AIDE PLANNING AIDE Associated attestation - Maria Isabel Pino MD - 12/12/2024 1:29 PM CITY PLANNING AIDE Physician Attestation I agree with the information [...] pt. Anticipate discharge home when finished packing. PLANNING AIDE PLANNING AIDE * Note - Hedy Culp RNC - [...] up emptying and best program breasts for halfway supply Benefits of logging Reviewed cleaning, sanitizing, labeling, transporting Plan: Check back day 5 ZEFERINO Osei-LUIS CARLOS, IBCLC Steam And Power Supervisor Makenna: [employer] [phone] Office: [phone] PLANNING AIDE * Provider Notification - Nena Ren RN - 12/23/2024 11:12 AM CST Pt scored 14 on depression questionnaire. I ordered SW and she will talk to pt about resources. Question of self harm was zero. Dr. Arlette Lyons G1 text paged and updated. PLANNING AIDE * Plan of Care - Nicole Pinon [...] Goal: Hemostasis Outcome: Progressing of care ongoing. PLANNING AIDE * Provider Notification - Nicole Pinon RN - 12/22/2024 9:34 PM CITY PLANNING AIDE 12/22/242133 Provider Notification Provider Name/Title Dr. Leach [...] see pt. Shortly. Will continue to monitor. PLANNING AIDE * Plan of Care - Nena Ren [...] and provide emotional support as pt needs. PLANNING AIDE * Provider Notification - Nena Ren RN [...] unit and updated. Went to see pt. PLANNING AIDE PLANNING AIDE * Note - Sherri Morales RNC - 12/22/2024 11:09 AM CST This note was copied from a baby's chart. Reminders (delete this area when done): Maternal sticky note for pump lcnfcc Update Nurse ([facility]) HOT lcplan is the general admit info. Amend as needed. Update IBCLC column Admission Note Baby Information: 's first name: A: Julia Reddy B: Madison Miner Infant medical history: 24+4 mono-di ELBW twins Dealer Support Technician needed? No goal (if known): Provide breast milk. history: Exclusively breast fed her first two children for 2.5 years each Mother's Information: Name: Deandre Occupation: - Age: 29 Delivery type: [place]: [employer] Pump for home use: Needs rental at [...] twins' bedside. Sherri Morales RNC-LUIS CARLOS, IBCLC Steam And Power Supervisor Makenna: Rv Technician Group [phone] Office: [phone] PLANNING AIDE * Plan of Care - Radhika Alarcon [...] in NICU. Continue with plan of care. PLANNING AIDE * Plan of Care - Nicole Pinon [...] Pinon RN Family/Support System Care: support provided PLANNING AIDE * Plan of Care - Nena Ren [...] shower. Now trying to sleep but calling mortgage loan underwriter often for little things. Encouraged to take flexeril to help relax but pt anxious about taking new medication as well. C/o pain in morning but pain better controlled this afternoon. Pumping for twins in NICU. Emotional support provided. FOB supportive. Will continue to monitor. PLANNING AIDE * Provider Notification - Nena Ren RN - 12/21/2024 8:34 AM CST Pt wanted to talk with provider about lovenox. Dr. Newby came into room and informed. Dr. Newbyspoke to pt about medication. Pt offered lovenox again and is undecided at this time. Informed pt to let mortgage loan underwriter know if she wants medication today. Dr. Rene Alba G2 resident text paged and informed. PLANNING AIDE PLANNING AIDE * Plan of Care - Denita Farrar [...] Farrar RN on 12/21/2024 at 1:37 AM PLANNING AIDE * Plan of Care - Nicole Pinon [...] Optimal Pain Control and Function Outcome: Progressing PLANNING AIDE * Plan of Care - Lizette Rincon [...] of care ongoing, no concerns as ofpresent. PLANNING AIDE * Plan of Care - Lizette Rincon RN - 12/20/2024 2:53 PM CST Patient arrived to [facility] unit via zoom cart at 1335 ,with belongings, accompanied by spouse/ significant other, with infants in the NICU . Received report from MAGUI Marti and checked bands. Unit and room orientation completd. Call light given; no concerns present at this time. Continue with plan of care. PLANNING AIDE * Plan of Care - Kaia Spence RN - 12/20/2024 1:00 PM CST Pt stable post CS. VSS, assessment WDL. Surgery EBL 800. Toradol and fentanyl given for pain in PACU. Tap block done in OR. Pumping intiated in PACU. Support person at bedside. OUtput adequate from ashley. Alert and oriented post general anesthesia. Anticipate transfer to [facility]. PLANNING AIDE * Brief Op Note - Joceline Grant MD - 12/20/2024 12:24 PM CST Brief Operative Note Name: Deandre Chávez : 1995 Date of Surgery: 12/20/2024 Pre-operative Diagnosis: - IUP @ 24w4d - Mccook-di twin gestation - Selective FGR type III [...] Data is abnormally high Joceline Grant MD Instructor Of Education PGY-3 12/20/24 12:27 PM PLANNING AIDE * Provider Notification - Shena Eugene RN - 12/20/2024 10:40 AM CITY PLANNING AIDE 12/20/24 1040 Provider Notification Provider Name/Title Dr. Grant Method of Notification Electronic Page Request Evaluate in Person Notification Reason Decels Provider notified regarding the audible deceleration at bedside. PLANNING AIDE PLANNING AIDE * Provider Notification - Shena Eugene RN - 12/20/2024 10:30 AM CITY PLANNING AIDE 12/20/24 1014 Provider Notification Provider Name/Title Dr. Grant Method of Notification Electronic Page Request Evaluate-Remote Notification Reason Medication Request Patient is feeling anxious and reports as feeling she is going to . VSS. Assessments WNL. Provider requested for the medication for anxiety. Provider ordered Ativan. But, patient does not want to take it and states that she is feeling better now. PLANNING AIDE * Provider Notification - Shena Eugene RN - 12/20/2024 8:47 AM CITY PLANNING AIDE 12/20/24 0847 Provider Notification Provider Name/Title Dr. Grant Method of Notification Electronic Page Request Evaluate in Person Notification Reason Decels Provider notified regarding the variable deceleration of baby B. PLANNING AIDE PLANNING AIDE * Plan of Care - Jacob Juárez [...] RN who assumes care at this time. PLANNING AIDE * Plan of Care - Ruddy Bruno RN - 12/19/2024 9:48 PM CITY PLANNING AIDE Goal Outcome Evaluation: Pt states is comfortable, [...] while monitoring. at bedside supportive. Cares explained. PLANNING AIDE * Plan of Care - Xochilt Wright RN - 12/19/2024 2:55 PM CST Data: Maternal status stable. assessment is appropriate for gestational age. Extended monitoring this monitoring.. Action: Continue with plan of care, which is TID and uterine monitoring. Patient encouraged to move extremities while in bed. Response: Patient coping with the plan of with family support.. PLANNING AIDE * Plan of Care - Jacob Juárez [...] RN who assumes care at this time. PLANNING AIDE * Plan of Care - Xochilt Wright RN - 12/18/2024 6:23 PM CST Data: Maternal status stable. assessment is normal. Action: Continue with plan of care, which is TID and uterine monitoring. Patient encouraged to move extremities while in bed. Response: Patient coping with the plan of care. W'ill notify the provider with changes.. PLANNING AIDE * Plan of Care - Sarah Judd RN - 12/18/2024 7:01 AM CST Assumed care at 2300. Able to make needs known, offers no complaints overnight. Per patient requests to be undisturbed overnight. Goal Outcome Evaluation: Progressing, reviewed with patient. PLANNING AIDE * Plan of Care - Madelyn Feliciano [...] to tour the NICU and discuss with CAPACITY MANAGER baby expectations now that she is 24 weeks. This request is per availability of the NICU. Encouraged to call with needs. PLANNING AIDE * Plan of Care - Xochilt Wright RN - 12/17/2024 4:08 AM CST Data: Maternal status is stable. assessment is appropriate for gestational age... Action: Continue with plan of care, which is TID and uterine monitoring.. Patient encouraged to move extremities while in bed. Response: Patient coping with the plan of care. W'ill notify the provider with changes.. PLANNING AIDE * Plan of Care - Aure Ochoa RN - 12/16/2024 6:35 PM CST Pt doing well this afternoon, she has no complaints. VSS. Afebrile. Denies LOF, vaginal bleeding, cramping or contractions. Endorses + FM. Denies vision changes, RUQ pain, epigastric pain, shortness of breath, MCKEON and increased swelling. FHT's AGA x2. Harmon quiet. Patient aware to call nursing for any questions or concerns. Pt stable at this time. Continue with current POC. PLANNING AIDE * Provider Notification - Aure Ochoa RN - 12/16/2024 12:30 PM CITY PLANNING AIDE 12/16/24 1214 Provider Notification Provider Name/Title Dr. [...] time. Pt agreed with plan of care. PLANNING AIDE * Provider Notification - Alexandrea Rockwell RN - 12/16/2024 10:38 AM CITY PLANNING AIDE 12/16/24 1038 Provider Notification Provider Name/Title Dr. Leach Method of Notification Electronic Page Request Evaluate - Remote Notification Reason Decels FYI baby B had prolonged decel lasting 2 min with sherrie to 70. Per provider continue to monitor andgive 500 ml bolus. PLANNING AIDE * Plan of Care - Narda Vegas [...] this time. Continue with plan of care. PLANNING AIDE * Plan of Care - Aure Ochoa RN - 12/15/2024 4:35 PM CST Pt has no complaints. VSS. Afebrile. Denies LOF, vaginal bleeding, cramping or contractions. Endorses + FM. Denies vision changes, RUQ pain, epigastric pain, shortness of breath, MCKEON and increased swelling. FHTs AGA x2. Harmon quiet. Patient aware to call nursing for any questions or concerns. Pt stable at this time. Continue with current POC. PLANNING AIDE * Plan of Care - Jackelin Barr [...] bedside. Report given to David Cotto RN. PLANNING AIDE * Plan of Care - Pennie Draper [...] during monitoring. Pt will call with needs. PLANNING AIDE * Plan of Care - Jacob Juárez [...] RN who assumes care at this time. PLANNING AIDE * Plan of Care - Piper Hahn [...] if there is a change in status. PLANNING AIDE PLANNING AIDE * Plan of Care - Brandee Schulte RN - 12/13/2024 2:58 PM CST Patient stable with her mono/di twins, FGR and IAEDF of B. VSS; EFM as charted. Denies pain, contractions, bleeding, loss of fluid. Continue expectant management. PLANNING AIDE * Plan of Care - Jacob Juárez [...] RN who assumes care at this time. PLANNING AIDE * Provider Notification - Jacob Juárez RN - 12/12/2024 10:46 PM CITY PLANNING AIDE 12/12/24 2141 Provider Notification Provider Name/Title Dr. Leach Method of Notification In Department Request Evaluate - Remote In department strip review, provider okay for EFM x2 to be removed. Q4 hour vitals while awake alsoapproved for pt per Dr. Leach. PLANNING AIDE * Plan of Care - Pennie Cullen RN - 12/12/2024 7:06 PM CST Goal Outcome Evaluation: Patient has no complaints this afternoon. She has been walking in the hallways and had a few visitors. PLANNING AIDE * Plan of Care - Brandee Schulte RN - 12/12/2024 2:46 PM CST Patient here with FGR and intermittent REDF in twin b. VSS; EFM as charted. Denies pain, contractions, bleeding, loss of fluid. Continue expectant management. PLANNING AIDE * Provider Notification - Brandee Schulte RN - 12/12/2024 8:20 AM CST 12/12/24 0811 Provider Notification Provider Name/Title Dr Leach Method of Notification Phone Request Evaluate - Remote Notification Reason Other (Comment) Reviewed EFM strip with Dr. Leach prior to removing monitors. PLANNING AIDE * Plan of Care - Diana Hernandez [...] questions or concerns. Call light in reach. PLANNING AIDE * Plan of Care - Shena Eugene [...] care transferred to MAGUI Ortiz at 1923. PLANNING AIDE * Provider Notification - Shena Eugene RN - 12/11/2024 3:46 PM CITY PLANNING AIDE 12/11/24 1539 Provider Notification Provider Name/Title Dr. Siegel Method of Notification Electronic Page Request Evaluate - Remote Notification Reason Other (Comment) (Strip reviewed) Strip reviewed with provider in department. Provider okay with removing the EFM. PLANNING AIDE * Provider Notification - Shena Eugene RN - 12/11/2024 3:20 PM CITY PLANNING AIDE 12/11/24 1518 Provider Notification Provider Name/Title Christal [...] like this addressed/answered at the next visit/meeting. PLANNING AIDE * Provider Notification - Shena Eugene RN - 12/11/2024 12:17 PM CITY PLANNING AIDE 12/11/24 1216 Provider Notification Provider Name/Title Dr. Siegel Method of Notification Electronic Page Request Evaluate - Remote Notification Reason Patient Request Patient requested to have a review on the plan regarding her GERD. PLANNING AIDE * Provider Notification - Shena Eugene RN - 12/11/2024 9:22 AM CITY PLANNING AIDE 12/11/24 0853 Provider Notification Provider Name/Title Dr. Christal Sparks Method of Notification At Bedside Request Evaluate in Person Notification Reason Status Update Providers at bedside discussing the plan of care with Deandre and her spouse Los. Plan is to do TID monitoring for an hour, US x3 weekly and second dose of betamethasone tonight. PLANNING AIDE * Provider Notification - Shena Eugene RN - 12/11/2024 8:52 AM CITY PLANNING AIDE 12/11/24 0849 Provider Notification Provider Name/Title Dr. Waterman Method of Notification Electronic Page Request Evaluate-Remote Notification Reason Medication Request Patient would like to continue with her home regimen omeprazole 20 mg for GERD and avoid taking more medications. She refused stool softner, TUMS, and pantoprazole. PLANNING AIDE * Plan of Care - Gilberto Welch RN - 12/11/2024 7:24 AM CST VSS. Pt denies bleeding, LOF, cramping or s/sx of pre-e. EFM for Twin A & Twin B appropriate for gestational age, see flow sheets for more. Still on continuous monitoring at this time. 2nd betamethasone to be given today. Continue observing for any s/sx of maternal or compromise. PLANNING AIDE * Provider Notification - Gilberto Welch RN [...] to continue observing. Pt agreeable with plan. PLANNING AIDE * Plan of Care - Beverly Lara [...] of education and verbalized agreement with plan. PLANNING AIDE PLANNING AIDE documented in this encounter Plan of Treatment Pending Results Name Type Priority Associated Diagnoses Date /Time Surgical Pathology Exam Pathology and Cytology Routine 12/20/2024 3:49 PM CITY PLANNING AIDE EKG 12-lead, complete EKG STAT 12/22/2024 9:49 PM CITY PLANNING AIDE Scheduled Orders Name Type Priority Associated Diagnoses [...] Comments PLATELET COUNT Routine 12/23/2024 8:01 AM CITY PLANNING AIDE EXTRA TUBE Routine 12/22/2024 10:33 PM CITY PLANNING AIDE EXTRA BLUE TOP TUBE Routine 12/22/2024 1 0:33 PM CITY PLANNING AIDE TROPONIN T, HIGH SENSITIVITY STAT 12/22/2024 10:33 PM CITY PLANNING AIDE CBC WITH PLATELETS STAT 12/22/2024 10 :33 PM CITY PLANNING AIDE EKG 12-LEAD, TRACING ONLY STAT 12/22/2024 9:49 PM CITY PLANNING AIDE TYPE AND SCREEN, ADULT Timed 9:07 AM CITY PLANNING AIDE ABO/RH TYPE AND SCREEN Timed 9:07 AM CITY PLANNING AIDE CBC WITH PLATELETS Timed 12/22/2024 9: 07 AM CITY PLANNING AIDE HEMOGLOBIN Routine 12/21/2024 8:23 AM CITY PLANNING AIDE EXTRA TUBE Routine 12/20/2024 3:53 PM CITY PLANNING AIDE EXTRA PURPLE TOP TUBE Routine 12/20/2024 3:53 PM CITY PLANNING AIDE CREATININE Routine 12/20/2024 3:53 PM CITY PLANNING AIDE XR ABDOMEN PORT 1 VIEW Routine 11:40 AM CITY PLANNING AIDE POC US GUIDANCE NEEDLE PLACEMENT Routine 12/20/2024 11:16 AM CITY PLANNING AIDE SECTION 12/20/2024 10:4 8 AM CITY PLANNING AIDE POC US GUIDANCE NEEDLE PLACEMENT Routine 12/20/2024 9:33 AM CITY PLANNING AIDE TYPE AND SCREEN, ADULT Timed 8:41 AM CITY PLANNING AIDE ABO/RH TYPE AND SCREEN Timed 8:41 AM CITY PLANNING AIDE CBC WITH PLATELETS Timed 12/19/2024 8: 41 AM CITY PLANNING AIDE M TWINS US COMPREHENSIVE F/U Routine 12/19/2024 8:22 AM CITY PLANNING AIDE M TWINS US COMPREHENSIVE F/U Routine 12/17/2024 8:33 AM CITY PLANNING AIDE TYPE AND SCREEN, ADULT Timed 11:00 AM CITY PLANNING AIDE ABO/RH TYPE AND SCREEN Timed 11:00 AM CITY PLANNING AIDE CBC WITH PLATELETS Timed 12/16/2024 11 :00 AM CITY PLANNING AIDE M US OB LIMITED SINGLE/MULTIPLE Routine 12/15/2024 8:15 AM CITY PLANNING AIDE M TWINS US COMPREHENSIVE F/U Routine 12/13/2024 8:06 AM CITY PLANNING AIDE TYPE AND SCREEN, ADULT Timed 6:44 AM CITY PLANNING AIDE ABO/RH TYPE AND SCREEN Timed 6:44 AM CITY PLANNING AIDE CBC WITH PLATELETS Timed 12/13/2024 6: 44 AM CITY PLANNING AIDE MFM TWINS US COMPREHENSIVE F/U Routine 12/11/2024 8:23 AM CITY PLANNING AIDE GROUP B STREP PCR Routine 12/10/2024 8:4 9 PM CITY PLANNING AIDE CBC WITH PLATELETS AND DIFFERENTIAL STAT 12/10/2024 5:21 PM [facility] PL[facility]ING AIDE TYPE AND SCREEN, ADULT STAT 5:21 PM [facility] AIDE TREPONEMA ABS W REFLEX TO RPR AND TITER STAT 12/10/2024 5:21 PM [facility] AIDE CBC WITH PLATELETS & DIFFERENTIAL STAT 12/10/2024 5:21 PM [facility] AIDE IRON AND IRON BINDING CAPACITY Add-On 12/10/2024 5:21 PM [facility] PL[facility] AIDE FERRITIN Add-On 12/10/2024 5:21 PM [facility] AIDE COMPREHENSIVE METABOLIC PANEL STAT 12/10/2024 5:21 PM [facility] AIDE ABO/RH TYPE AND SCREEN STAT 5:21 PM [facility] AIDE documented in this encounter Results * Platelet count (12/23/2024 8:01 AM [facility] AIDE) Platelet Count 219 150 - 450 10e3/uL 12/23/2024 8:16 AM [facility] AIDE UR LABORATORY Blood STRUCTURE OF LEFT UPPER LIMB / Unknown Venipuncture / Unknown 12/23/2024 8:01 AM [employer] [facility] AIDE 12/23/2024 8:13 AM [facility] AIDE us Oneil Lyons MD LAB - BLOOD ORDERABLES Final R esult UR LABORATORY [facility] Acute Care Lab [address] [place] [address] * Extra Blue Top Tube (12/22/2024 10:33 PM [facility] PL[facility]ING AIDE) Hold Specimen JIC 12/22/2024 11:46 PM [facility] AIDE UR LABORATORY Blood STRUCTURE OF RIGHT UPPER LIMB / Unknown Venipuncture / Unknown 12/22/2024 10:33 PM [employer] [facility] AIDE 12/22/2024 10:42 PM [employer] [facility] AIDE us Emil Ahmadi MD LAB - BLOOD ORDERABLES Fin al Result UR LABORATORY [facility] Acute Care Lab [address], [address] [place] [address] * (ABNORMAL) CBC with platelets (12/22/2024 10:33 PM [facility] AIDE) WBC Count 3.6(L) 4.0 - 11.0 10e3/uL 12/22/2024 10:45 PM [facility]ING AIDE UR LABORATORY RBC Count 3.78(L) 3.80 - 5.20 10e6/uL 12/22/2024 10:45 PM [facility] AIDE UR LABORATORY Hemoglobin 9.4(L) 11.7 - 15.7 g/dL 12/22/2024 10:45 PM [facility] AIDE UR LABORATORY Hematocrit 30.5(L) 35.0 - 47.0 % 12/22/2024 10:45 PM CITY PL[facility]ING AIDE UR LABORATORY MCV 81 78 - 100 fL 12/22/2024 10:45 PM [facility] AIDE UR LABORATORY MCH 24.9(L) 26.5 - 33.0 pg 12/22/2024 10:45 PM CITY PL[facility]ING AIDE UR LABORATORY MCHC 30.8(L) 31.5 - 36.5 g/dL 12/22/2024 10:45 PM CITY PL[facility]ING AIDE UR LABORATORY RDW 18.0(H) 10.0 - 15.0 % 12/22/2024 10:45 PM [facility]ING AIDE UR LABORATORY Platelet Count 219 150 - 450 10e3/uL 12/22/2024 10:45 PM [facility] PL[facility]ING AIDE UR LABORATORY Blood STRUCTURE OF RIGHT UPPER LIMB / Unknown Venipuncture / Unknown 12/22/2024 10:33 PM [employer] PL[facility]ING AIDE 12/22/2024 10:39 PM [employer] [facility] AIDE us Cameron Leach MD LAB - BLOOD ORDERABLES Final Res ult UR LABORATORY [facility] Acute Care Lab [address], [address] [phone] * Troponin T, High Sensitivity (12/22/2024 10:33 PM [facility] AIDE) Troponin T, High Sensitivity <6 <=14 ng/L 12/22/2024 11:01 PM [facility] AIDE UR LABORATORY Comment: Either a High Sensitivity [...] Unknown Venipuncture / Unknown 12/22/2024 10:33 PM [facility] AIDE 12/22/2024 10:39 PM [facility] AIDE Cameron Leach MD LAB - BLOOD ORDERABLES Final Res ult UR LABORATORY [facility] Acute Care Lab [address], [address] [address] * Adult Type and Screen (12/22/2024 9:07 AM [facility] AIDE) ABO/RH(D) O POS 12/22/2024 6:00 AM [facility] AIDE UR BLOOD BANK Antibody Screen Negative Negative 12/22/2024 6:00 AM [facility] AIDE UR BLOOD BANK SPECIMEN EXPIRATION DATE [id number] 12/22/2024 6:00 AM [facility] AIDE UR BLOOD BANK Blood STRUCTURE OF RIGHT UPPER LIMB / Unknown Venipuncture / Unknown 12/22/2024 9:07 AM [facility] AIDE 12/22/2024 9:14 AM [facility] AIDE Cameron Leach MD LAB - BLOOD BANK TEST ORDER Yenny l Result UR BLOOD BANK [facility] [place] [facility] Lab [address], [address] [place] [address] * (ABNORMAL) CBC with platelets (12/22/2024 9:07 AM CITY PLANNING AIDE) [facility] WBC Count 4.7 4.0 - 11.0 10e3/uL 12/22/2024 9:19 AM [facility] AIDE UR LABORATORY RBC Count 3.92 3.80 - 5.20 10e6/uL 12/22/2024 9:19 AM [facility] AIDE UR LABORATORY Hemoglobin 10.0(L) 11.7 - 15.7 g/dL 12/22/2024 9:19 AM [facility] AIDE UR LABORATORY Hematocrit 31.8(L) 35.0 - 47.0 % 12/22/2024 9:19 AM [facility] AIDE UR LABORATORY MCV 81 78 - 100 fL 12/22/2024 9:19 AM [facility] AIDE UR LABORATORY MCH 25.5(L) 26.5 - 33.0 pg 12/22/2024 9:19 AM [facility]ING AIDE UR LABORATORY MCHC 31.4(L) 31.5 - 36.5 g/dL 12/22/2024 9:19 AM [facility] AIDE UR LABORATORY RDW 18.1(H) 10.0 - 15.0 % 12/22/2024 9:19 AM [facility] AIDE UR LABORATORY Platelet Count 218 150 - 450 10e3/uL 12/22/2024 9:19 AM [facility] AIDE UR LABORATORY Blood STRUCTURE OF RIGHT UPPER LIMB / Unknown Venipuncture / Unknown 12/22/2024 9:07 AM [facility] AIDE 12/22/2024 9:14 AM [facility] AIDE Cameron Leach MD LAB - BLOOD ORDERABLES Final Res ult UR LABORATORY [facility] Acute Care Lab [address] [place] [address] * (ABNORMAL) Hemoglobin (12/21/2024 8:23 AM [facility] AIDE) Hemoglobin 9.3(L) 11.7 - 15.7 g/dL 12/21/2024 8:41 AM [facility] AIDE UR LABORATORY Blood BLOOD SPECIMEN / Unknown Venipuncture / Unknown 12/21/2024 8:23 AM [facility] AIDE 12/21/2024 8:37 AM [facility] AIDE Oneil Lyons MD LAB - BLOOD ORDERABLES Final R esult UR LABORATORY [facility] Acute Care Lab [address] [place] [address], [address] [address] * Extra Purple Top Tube (12/20/2024 3:53 PM [facility]ING AIDE) Hold Specimen JIC 12/20/2024 5:03 PM [facility] AIDE UR LABORATORY Blood STRUCTURE OF RIGHT UPPER LIMB / Unknown Venipuncture / Unknown 12/20/2024 3:53 PM [facility]ING AIDE 12/20/2024 3:58 PM [facility]ING AIDE Emil Ahmadi MD LAB - BLOOD ORDERABLES Fin al Result Performing Organization Address City/[facility]/ZIP Co de Phone Number UR LABORATORY [facility] Acute Care Lab [address] [place] [address], [address] [phone] * Creatinine (12/20/2024 3:53 PM [facility] AIDE) Creatinine 0.53 0.51 - 0.95 mg/dL 12/20/2024 4:25 PM [facility] AIDE UR LABORATORY GFR Estimate >90 >60 mL/min/1.7 3m2 12/20/2024 4:25 PM [facility] AIDE UR LABORATORY Comment:eGFR calculated us2020 CKD-EPI equation. Blood STRUCTURE OF RIGHT UPPER LIMB / Unknown Venipuncture / Unknown 12/20/2024 3:53 PM [facility] AIDE 12/20/2024 3:58 PM [facility] AIDE Oneil Lyons MD LAB - BLOOD ORDERABLES Final R esult UR LABORATORY [facility] Acute Care Lab [address] [place] [address], [facility] * XR Abdomen Port 1 View (12/20/2024 11:40 AM [facility] AIDE) Anatomical Region Laterality Modality Abdomen/Pelvis Computed Radiogr aphy Impressions 12/20/2024 11:45 AM [facility] AIDE Impression: Curvilinear radiopacities overlying the right upper radiograph overlying the right inferior ribs, indeterminate, question external to the patient. Consider correlation. Otherwise no radiopaque instrument or needle visualized overlying the pelvis in field of view of the radiograph Finding of indeterminate radiopacity communicated to operating room personnel by Zachary at 11:30 AM 12/20/2024 MARY SHARMA MD Narrative 12/20/2024 11:45 AM [facility] AIDE Exam: XR ABDOMEN PORT 1 VIEW, 12/20/2024 [...] US Guidance Needle Placement (12/20/2024 11:16 AM [facility] AIDE) Anatomical Region Laterality Modality Other Impressions 12/20/2024 11:16 AM [facility] AIDE Transversus abdominus plane block, bilateral Eneida Sanon MD IMG POCUS Final Result * POC US Guidance Needle Placement (12/20/2024 9:33 AM [facility] AIDE) Anatomical Region Laterality Modality Other Impressions 12/20/2024 9:33 AM [facility] AIDE Bilateral transverus abdominal plane block. Narrative 12/20/2024 9:33 AM [facility] AIDE Bilateral transverus abdominal plane block. Evangelina Helm MD IMG POCUS Final Result * Adult Type and Screen (12/19/2024 8:41 AM [facility] AIDE) ABO/RH(D) O POS 12/19/2024 6:00 AM [facility] AIDE UR BLOOD BANK Antibody Screen Negative Negative 12/19/2024 6:00 AM [facility] AIDE UR BLOOD BANK SPECIMEN EXPIRATION DATE [id number] 12/19/2024 6:00 AM [facility] AIDE UR BLOOD BANK Blood BLOOD SPECIMEN / Unknown Venipuncture / Unknown 12/19/2024 8:41 AM [facility] AIDE 12/19/2024 8:46 AM [facility] AIDE Cameron Leach MD LAB - BLOOD BANK TEST ORDER Yenny l Result UR BLOOD BANK [facility] [place] [facility] [place] [address] * (ABNORMAL) CBC with platelets (12/19/2024 8:41 AM [facility] AIDE) WBC Count 5.7 4.0 - 11.0 10e3/uL 12/19/2024 8:49 AM [facility] AIDE UR LABORATORY RBC Count 4.03 3.80 - 5.20 10e6/uL 12/19/2024 8:49 AM [facility] AIDE UR LABORATORY Hemoglobin 9.8(L) 11.7 - 15.7 g/dL 12/19/2024 8:49 AM [facility] AIDE UR LABORATORY Hematocrit 32.3(L) 35.0 - 47.0 % 12/19/2024 8:49 AM [facility] AIDE UR LABORATORY MCV 80 78 - 100 fL 12/19/2024 8:49 AM [facility] PL[facility]ING AIDE UR LABORATORY MCH 24.3(L) 26.5 - 33.0 pg 12/19/2024 8:49 AM [facility] PL[facility]ING AIDE UR LABORATORY MCHC 30.3(L) 31.5 - 36.5 g/dL 12/19/2024 8:49 AM [facility] PL[facility]ING AIDE UR LABORATORY RDW 16.8(H) 10.0 - 15.0 % 12/19/2024 8:49 AM [facility] AIDE UR LABORATORY Platelet Count 215 150 - 450 10e3/uL 12/19/2024 8:49 AM [facility] AIDE UR LABORATORY Blood BLOOD SPECIMEN / Unknown Venipuncture / Unknown 12/19/2024 8:41 AM [facility] AIDE 12/19/2024 8:47 AM [facility] AIDE us Cameron Leach MD LAB - BLOOD ORDERABLES Final Res ult UR LABORATORY [facility] Acute Care Lab [address] [place] [address], [facility] * MFM Twins US Comprehensive F/U (12/19/2024 8:22 AM [facility] AIDE) Anatomical Region Laterality Modality Ultrasound 12/19/2024 7:12 AM [facility] AIDE Impressions 12/19/2024 8:29 AM [facility] AIDE IMPRESSION ----- Monochorionic diamniotic twin gestation with [...] of twin 2. Narrative 12/19/2024 8:29 AM [facility] Surveillance US ----- Pat. Name: DEANDRE CHÁVEZ Study Date: 12/19/2024 7:12am Pat. NO: [id number] Referring : PAMELA CUELLAR Site: Paper Cone Machine Tender: Pipre Huynh RDMS : 1995 Age: 29 ----- INDICATION ----- INPATIENT Abnormal UA Doppler and Ductus Venosus waveforms Monochorionic-Diamniotic Twin Gestation Selective Growth Restriction (FGR) fetus 2 Circumvallate placenta METHOD ----- [facility] ANTEPARTUM inpatient exam. Transabdominal ultrasound examination. [...] CHÁVEZ Study Date: 12/19/2024 7:12am Pat. NO: [id number] Referring MD: PAMELA CUELLAR Site: Paper Cone Machine Tender: Piper Huynh RDMS : 1995 Age: 29 ----- INDICATION ----- INPATIENT Abnormal UA Doppler and Ductus Venosus waveforms Monochorionic-Diamniotic Twin Gestation Selective Growth Restriction (FGR) fetus 2 Circumvallate placenta METHOD ----- [facility] ANTEPARTUM inpatient exam. Transabdominal ultrasound examination.View: [...] of twin 2. us Joceline Grant MD [facility] US ORDERABLES Edited Res ult - Final * [facility] Twins US Comprehensive F/U (12/17/2024 8:33 AM [facility] AIDE) Anatomical Region Laterality Modality Ultrasound 12/17/2024 7:09 AM [facility] AIDE Impressions 12/17/2024 9:32 AM [facility] AIDE IMPRESSION ----- Monochorionic diamniotic twin gestation at [...] in some areas. Narrative 12/17/2024 9:32 AM [facility]ING AIDE Comp Follow Up ----- Pat. Name: DEANDRE CHÁVEZ Study Date: 12/17/2024 7:09am Pat. NO: [id number] Referring MD: PAMELA CUELLAR Site: Paper Cone Machine Tender: Claudia Arauz RDMS : 1995 Age: 29 ----- INDICATION ----- INPATIENT Abnormal UA Doppler and Ductus Venosus waveforms Monochorionic-Diamniotic Twin Gestation Selective Growth Restriction (FGR) fetus 2 Circumvallate placenta METHOD ----- [facility] ANTEPARTUM inpatient exam. Transabdominal ultrasound examination. [...] 1 lb 8 oz EFW by Hadlock ([id number]) EFW discordance 33.0 % Head / Face / Neck Biometry: Auto Air Conditioning Installer 7.8 mm CM 2.9 mm Fetus 2: [...] 1 lb 0 oz EFW by Hadlock ([id number]) EFW discordance 33.0 % Head / Face / Neck Biometry: Auto Air Conditioning Installer 7.9 mm CM 2.9 mm Extremities / [...] Heart / Thorax 4-chamber view. RVOT view. 8-dcmaei-bmxwllv view. sex: female. Fetus 2: ANATOMY ----- The following structures appear normal: Head / Neck Cranium. Head size. Head shape. Lateral ventricles. Midline falx. Cavum septi pellucidi. Cerebellum. Cisterna magna. Face Lips. Profile. Nose. Heart / Thorax 4-chamber view. RVOT view. LVOT view. 6-sygqhe-qyrlpyu view. Diaphragm. Abdomen Stomach. Kidneys. Bladder. Spine [...] Comp Follow Up ----- Pat. Name: DEANDRE CHÁVZE Study Date: 12/17/2024 7:09am Pat. NO: [id number] Referring MD: PAMELA CUELLAR Site: Paper Cone Machine Tender: Claudia Arauz RDMS : 1995 Age: 29 ----- INDICATION ----- INPATIENT Abnormal UA Doppler and Ductus Venosus waveforms Monochorionic-Diamniotic Twin Gestation Selective Growth Restriction (FGR) fetus 2 Circumvallate placenta METHOD ----- [facility] ANTEPARTUM inpatient exam. Transabdominal ultrasound examination.View: [...] EFW (lb,oz) 1 lb 8oz EFW by Hadlock([id number]) EFW discordance 33.0% Head / Face / Neck Biometry: Auto Air Conditioning Installer 7.8mm CM 2.9mm Fetus 2: BIOMETRY ----- BPD 56.3mm 23w 1dHadlock OFD 74.5mm 22w 6dNicolaides HC 208.0mm 22w 6dHadlock Cerebellum tr 25.2mm 23w 1dNicolaides AC 172.0mm 22w 1d 3%Hadlock Femur 35.8mm 21w 2dHadlock Humerus 31.7mm 20w 4dJeanty Weight Calculation: EFW 464g <1%Hadlock EFW (lb,oz) 1 lb 0oz EFW by Hadlock([id number]-FL) EFW discordance 33.0% Head / Face / Neck Biometry: Auto Air Conditioning Installer 7.9mm CM 2.9mm Extremities / Bony Struc [...] previously: Heart / Thorax 4-chamber view. RVOT view.0-yslfmq-fdfsvgo view. sex: female. Fetus 2: ANATOMY ----- The following structures appear normal: Head / Neck Cranium. Head size. Head shape.Lateral ventricles. Midline falx. Cavum septi pellucidi. Cerebellum.Cisterna magna. Face Lips. Profile. Nose. Heart / Thorax 4-chamber view. RVOT view. LVOT view.8-whxjwn-zdcdabi view. Diaphragm. Abdomen Stomach. Kidneys. Bladder. Spine [...] circumvallate in some areas. Guevara Amin MD [facility] ORDERABLES Edited Res ult - Final * Adult Type and Screen (12/16/2024 11:00 AM [facility] AIDE) ABO/RH(D) O POS 12/16/2024 6:00 AM [facility] AIDE UR BLOOD BANK Antibody Screen Negative Negative 12/16/2024 6:00 AM [facility]ANNING AIDE UR BLOOD BANK SPECIMEN EXPIRATION DATE [id number] 12/16/2024 6:00 AM [facility]ING AIDE UR BLOOD BANK Blood BLOOD SPECIMEN / Unknown Venipuncture / Unknown 12/16/2024 11:00 AM [facility]ING AIDE 12/16/2024 11:04 AM [facility]ING AIDE Cameron Leach MD LAB - BLOOD BANK TEST ORDER Yenny ryan Result UR BLOOD BANK [facility] [place] [facility] [address] [place] [address] * (ABNORMAL) CBC with platelets (12/16/2024 11:00 AM [facility]ING AIDE) WBC Count 6.3 4.0 - 11.0 10e3/uL 12/16/2024 11:09 AM [facility]ING AIDE UR LABORATORY RBC Count 3.92 3.80 - 5.20 10e6/uL 12/16/2024 11:09 AM [facility]ING AIDE UR LABORATORY Hemoglobin 9.4(L) 11.7 - 15.7 g/dL 12/16/2024 11:09 AM [facility]ING AIDE UR LABORATORY Hematocrit 30.7(L) 35.0 - 47.0 % 12/16/2024 11:09 AM [facility] PLANNING AIDE UR LABORATORY MCV 78 78 - 100 fL 12/16/2024 11:09 AM [facility] PLANNING AIDE UR LABORATORY MCH 24.0(L) 26.5 - 33.0 pg 12/16/2024 11:09 AM [facility] PLANNING AIDE UR LABORATORY MCHC 30.6(L) 31.5 - 36.5 g/dL 12/16/2024 11:09 AM [facility] PLANNING AIDE UR LABORATORY RDW 15.1(H) 10.0 - 15.0 % 12/16/2024 11:09 AM [facility]ING AIDE UR LABORATORY Platelet Count 207 150 - 450 10e3/uL 12/16/2024 11:09 AM [facility] PLANNING AIDE UR LABORATORY Blood BLOOD SPECIMEN / Unknown Venipuncture / Unknown 12/16/2024 11:00 AM [facility]ING AIDE 12/16/2024 11:05 AM [facility]ING AIDE us Cameron Leach MD LAB - BLOOD ORDERABLES Final Res ult UR LABORATORY [facility] Acute Care Lab [address] [place] [address], [facility] * Maternal US OB Limited Single/Multiple (12/15/2024 8:15 AM [facility] AIDE) Anatomical Region Laterality Modality Ultrasound 12/15/2024 7:38 AM [facility] AIDE Impressions 12/15/2024 10:58 AM [facility] AIDE IMPRESSION ----- Monochorionic diamniotic twin gestation with [...] anemia polycythemia syndrome. Narrative 12/15/2024 10:58 AM [facility] Surveillance US ----- Pat. Name: DEANDRE CHÁVEZ Study Date: 12/15/2024 7:38am Pat. NO: [id number] Referring : PAMELA CUELLAR Site: Paper Cone Machine Tender: Chantell Jarquin RDMS : 1995 Age: 29 ----- INDICATION ----- INPATIENT Abnormal UA Doppler and Ductus Venosus waveforms Monochorionic-Diamniotic Twin Gestation Selective Growth Restriction (FGR) fetus 2 Circumvallate placenta METHOD ----- [facility] ANTEPARTUM inpatient exam, Transabdominal ultrasound examination. [...] CHÁVEZ Study Date: 12/15/2024 7:38am Pat. NO: [id number] Referring MD: PAMELA CUELLAR Site: Paper Cone Machine Tender: Chantellcarmelo Jarquin RDMS : 1995 Age: 29 ----- INDICATION ----- INPATIENT Abnormal UA Doppler and Ductus Venosus waveforms Monochorionic-Diamniotic Twin Gestation Selective Growth Restriction (FGR) fetus 2 Circumvallate placenta METHOD ----- [facility] ANTEPARTUM inpatient exam, Transabdominal ultrasound examination.View: [...] anemia polycythemia syndrome. us Guevara Amin MD [facility] US ORDERABLES Edited Res ult - Final * [facility] Twins US Comprehensive F/U (12/13/2024 8:06 AM [facility]ING AIDE) Anatomical Region Laterality Modality Ultrasound 12/13/2024 7:10 AM [facility]ING AIDE Impressions 12/13/2024 9:19 AM [facility] AIDE IMPRESSION ----- Monochorionic diamniotic twin gestation at [...] anemia polycythemia syndrome. Narrative 12/13/2024 9:19 AM [facility] Surveillance US ----- Pat. Name: DEANDRE CHÁVEZ Study Date: 12/13/2024 7:10am Pat. NO: [id number] Referring MD: PAMELA CUELLAR Site: Paper Cone Machine Tender: Claudia Arauz RDMS : 1995 Age: 29 ----- INDICATION ----- INPATIENT Abnormal UA Doppler and Ductus Venosus waveforms Monochorionic-Diamniotic Twin Gestation Selective Growth Restriction (FGR) fetus 2 Circumvallate placenta METHOD ----- [facility] ANTEPARTUM inpatient exam. Transabdominal ultrasound examination. [...] CHÁVEZ Study Date: 12/13/2024 7:10am Pat. NO: [id number] Referring MD: PAMELA CUELLAR Site: Paper Cone Machine Tender: Claudia Arauz RDMS : 1995 Age: 29 ----- INDICATION ----- INPATIENT Abnormal UA Doppler and Ductus Venosus waveforms Monochorionic-Diamniotic Twin Gestation Selective Growth Restriction (FGR) fetus 2 Circumvallate placenta METHOD ----- [facility] ANTEPARTUM inpatient exam. Transabdominal ultrasound examination.View: [...] twin anemia polycythemia syndrome. Guevara Amin MD [facility] ORDERABLES Edited Res ult - Final * Adult Type and Screen (12/13/2024 6:44 AM [facility] AIDE) ABO/RH(D) O POS 12/13/2024 6:00 AM [facility] PLANNING AIDE UR BLOOD BANK Antibody Screen Negative Negative 12/13/2024 6:00 AM [facility]ANNING AIDE UR BLOOD BANK SPECIMEN EXPIRATION DATE [id number] 12/13/2024 6:00 AM [facility]ING AIDE UR BLOOD BANK Blood STRUCTURE OF RIGHT UPPER LIMB / Unknown Venipuncture / Unknown 12/13/2024 6:44 AM [facility]ING AIDE 12/13/2024 6:55 AM [facility]ING AIDE Cameron Leach MD LAB - BLOOD BANK TEST ORDER Yenny l Result UR BLOOD BANK [facility] Blood Components Lab [address] [place] [id number] * (ABNORMAL) CBC with platelets (12/13/2024 6:44 AM [facility] PLANNING AIDE) WBC Count 5.8 4.0 - 11.0 10e3/uL 12/13/2024 7:01 AM [facility] PLANNING AIDE UR LABORATORY RBC Count 3.65(L) 3.80 - 5.20 10e6/uL 12/13/2024 7:01 AM [facility] PL[facility]ING AIDE UR LABORATORY Hemoglobin 9.1(L) 11.7 - 15.7 g/dL 12/13/2024 7:01 AM [facility]ING AIDE UR LABORATORY Hematocrit 28.7(L) 35.0 - 47.0 % 12/13/2024 7:01 AM [facility] PLANNING AIDE UR LABORATORY MCV 79 78 - 100 fL 12/13/2024 7:01 AM [facility] PLANNING AIDE UR LABORATORY MCH 24.9(L) 26.5 - 33.0 pg 12/13/2024 7:01 AM [facility] PLANNING AIDE UR LABORATORY MCHC 31.7 31.5 - 36.5 g/dL 12/13/2024 7:01 AM [facility] PLANNING AIDE UR LABORATORY RDW 15.0 10.0 - 15.0 % 12/13/2024 7:01 AM [facility] PLANNING AIDE UR LABORATORY Platelet Count 190 150 - 450 10e3/uL 12/13/2024 7:01 AM [facility] PLANNING AIDE UR LABORATORY Blood STRUCTURE OF RIGHT UPPER LIMB / Unknown Venipuncture / Unknown 12/13/2024 6:44 AM [facility]ANNING AIDE 12/13/2024 6:58 AM [facility]ANNING AIDE Cameron Leach MD LAB - BLOOD ORDERABLES Final Res ult UR LABORATORY [facility] Acute Care Lab [address] [place] [address] * MFM Twins US Comprehensive F/U (12/11/2024 8:23 AM [facility] PLANNING AIDE) Anatomical Region Laterality Modality Ultrasound 12/11/2024 7:19 AM [facility] AIDE Impressions 12/11/2024 9:51 AM [facility] AIDE IMPRESSION ----- Monochorionic diamniotic twin gestation at [...] anemia polycythemia syndrome. Narrative 12/11/2024 9:51 AM [facility] Surveillance US ----- Pat. Name: DEANDRE CHÁVEZ Study Date: 12/11/2024 7:19am Pat. NO: [id number] Referring MD: PAMELA CUELLAR Site: Paper Cone Machine Tender: Catrachita Erazo RDMS : 1995 Age: 29 ----- INDICATION ----- Abnormal UA Doppler and Ductus Venosus waveforms Monochorionic-Diamniotic Twin Gestation Selective Growth Restriction (FGR) fetus 2 Circumvallate placenta METHOD ----- [facility] ANTEPARTUM inpatient exam, Transabdominal and transvaginal [...] CHÁVEZ Study Date: 12/11/2024 7:19am Pat. NO: [id number] Referring MD: PAMELA CUELLAR Site: Paper Cone Machine Tender: Catrachita Erazo RDMS : 1995 Age: 29 ----- INDICATION ----- Abnormal UA Doppler and Ductus Venosus waveforms Monochorionic-Diamniotic Twin Gestation Selective Growth Restriction (FGR) fetus 2 Circumvallate placenta METHOD ----- [facility] ANTEPARTUM inpatient exam, Transabdominal and transvaginal [...] polycythemia syndrome. us Jenny De Souza MD [facility] ORDERABLES Edited Re sult - Final * (ABNORMAL) Group B strep PCR (12/10/2024 8:49 PM [facility]ING AIDE) [facility] Group B Strep PCR Positive( A) Negative 12/11/2024 7:23 PM CITY PLANNING AIDE [facility] Comment:ALERT: Streptococcus agalactiae (Group B Streptococcus) has a high rate of resistance to clindamycin. Therefore, clindamycin is not recommended for treatment unless susceptibility testing has been performed. Swab STRUCTURE OF RECTOVAGINAL SEPTUM / Unknown Non-blood Collection / Unknown 12/10/2024 8:49 PM CITY PLANNING AIDE 12/10/2024 8:55 PM [facility] PLANNING AIDE Narrative [facility] - 12/11/2024 7:23 PM [facility] AIDE The [employer] Xpert GBS LB Assay, performed on the [employer] Instrument Systems, is a qualitative in vitro [...] or monitor treatment for GBS infections. The [employer] Medical [employer]id Xpert GBS LB Assay is intended for use in hospital, reference or state laboratory settings. The device is not intended for [id number]-lh-[id number] use. Jenny De Souza MD LAB - MICRO GENERAL ORDERABLES Final Result [facility] Inf. Diseases Diag. Lab [address] [facility], [address] [place] [address], [facility] * Ferritin (12/10/2024 5:21 PM [facility]ING AIDE) Ferritin 15 6 - 175 ng/mL 12/11/2024 4:00 AM [facility] PL[facility]ING AIDE UR LABORATORY Blood STRUCTURE OF RIGHT HAND / Unknown Venipuncture / Unknown 12/10/2024 5:21 PM CITY PLANNING AIDE 12/10/2024 5:25 PM CITY PLANNING AIDE us Cameron Leach MD LAB - BLOOD ORDERABLES Final Res ult UR LABORATORY [facility] Acute Care Lab [address] [facility] [address] [facility] [place] [address], [facility] * (ABNORMAL) Iron and iron binding capacity (12/10/2024 5:21 PM CITY PLANNING AIDE) Iron 20(L) 37 - 145 ug/dL 12/11/2024 4:00 AM CITY PLANNING AIDE UR LABORATORY Iron Binding Capacity 398 240 - 430 ug/dL 12/11/2024 4:00 AM CITY PLANNING AIDE UR LABORATORY Iron Sat Index 5(L) 15 - 46 % 12/11/2024 4:00 AM CITY PLANNING AIDE UR LABORATORY Blood STRUCTURE OF RIGHT HAND / Unknown Venipuncture / Unknown 12/10/2024 5:21 PM CITY PLANNING AIDE 12/10/2024 5:25 PM CITY PLANNING AIDE Cameron Leach MD LAB - BLOOD ORDERABLES Final Res ult UR LABORATORY [facility] Acute Care Lab [address] [facility] * Adult Type and Screen (12/10/2024 5:21 PM CITY PLANNING AIDE) [facility] ABO/RH(D) O POS 12/10/2024 4:51 PM CITY PLANNING AIDE UR BLOOD BANK Antibody Screen Negative Negative 12/10/2024 4:51 PM CITY PLANNING AIDE UR BLOOD BANK SPECIMEN EXPIRATION DATE [id number] 12/10/2024 4:51 PM CITY PLANNING AIDE UR BLOOD BANK Blood STRUCTURE OF RIGHT HAND / Unknown Venipuncture / Unknown 12/10/2024 5:21 PM CITY PLANNING AIDE 12/10/2024 5:25 PM CITY PLANNING AIDE us Jenny De Souza MD LAB - BLOOD BANK TEST ORDER Fin al Result UR BLOOD BANK [facility] Blood Components [facility], [address] * (ABNORMAL) CBC with platelets and differential (12/10/2024 5:21 PM CITY PLANNING AIDE) [facility] WBC Count 5.7 4.0 - 11.0 10e3/uL 12/10/2024 5:32 PM CITY PLANNING AIDE UR LABORATORY RBC Count 4.15 3.80 - 5.20 10e6/uL 12/10/2024 5:32 PM CITY PLANNING AIDE UR LABORATORY Hemoglobin 10.0(L) 11.7 - 15.7 g/dL 12/10/2024 5:32 PM CITY PLANNING AIDE UR LABORATORY Hematocrit 32.4(L) 35.0 - 47.0 % 12/10/2024 5:32 PM CITY PLANNING AIDE UR LABORATORY MCV 78 78 - 100 fL 12/10/2024 5:32 PM CITY PLANNING AIDE UR LABORATORY MCH 24.1(L) 26.5 - 33.0 pg 12/10/2024 5:32 PM CITY PLANNING AIDE UR LABORATORY MCHC 30.9(L) 31.5 - 36.5 g/dL 12/10/2024 5:32 PM CITY PLANNING AIDE UR LABORATORY RDW 15.0 10.0 - 15.0 % 12/10/2024 5:32 PM CITY PLANNING AIDE UR LABORATORY Platelet Count 220 150 - 450 10e3/uL 12/10/2024 5:32 PM CITY PLANNING AIDE UR LABORATORY % Neutrophils 69 % 12/10/2024 5:32 PM CITY PLANNING AIDE UR LABORATORY % Lymphocytes 24 % 12/10/2024 5:32 PM CITY PLANNING AIDE UR LABORATORY % Monocytes 6 % 12/10/2024 5:32 PM CITY PLANNING AIDE UR LABORATORY % Eosinophils 0 % 12/10/2024 5:32 PM CITY PLANNING AIDE UR LABORATORY % Basophils 0 % 12/10/2024 5:32 PM CITY PLANNING AIDE UR LABORATORY % Immature Granulocytes 0 % 12/10/2024 5:32 PM CITY PLANNING AIDE UR LABORATORY NRBCs per 100 WBC 0 <1 /100 025 5:32 PM CITY PLANNING AIDE UR LABORATORY Absolute Neutrophils 3.9 1.6 - 8.3 10e3/uL 12/10/2024 5:32 PM CITY PLANNING AIDE UR LABORATORY Absolute Lymphocytes 1.4 0.8 - 5.3 10e3/uL 12/10/2024 5:32 PM CITY PLANNING AIDE UR LABORATORY Absolute Monocytes 0.3 0.0 - 1.3 10e3/uL 12/10/2024 5:32 PM CITY PLANNING AIDE UR LABORATORY Absolute Eosinophils 0.0 0.0 - 0.7 10e3/uL 12/10/2024 5:32 PM CITY PLANNING AIDE UR LABORATORY Absolute Basophils 0.0 0.0 - 0.2 10e3/uL 12/10/2024 5:32 PM CITY PLANNING AIDE UR LABORATORY Absolute Immature Granulocytes 0.0 <=0.4 10e3/uL 12/10/2024 5:32 PM CITY PLANNING AIDE UR LABORATORY Absolute NRBCs 0.0 10e3/uL 12/10/2024 5:32 PM CITY PLANNING AIDE UR LABORATORY Blood STRUCTURE OF RIGHT HAND / Unknown Venipuncture / Unknown 12/10/2024 5:21 PM CITY PLANNING AIDE 12/10/2024 5:25 PM CITY PLANNING AIDE us Jenny De Souza MD LAB - BLOOD ORDERABLES Final Re sult UR LABORATORY [facility] Acute Care Lab [address] [facility] [place] [address], [facility] * Treponema Abs w Reflex to RPR and Titer (12/10/2024 5:21 PM CITY PLANNING AIDE) Treponema Antibody Total Nonreactive Nonreactive 12/10/2024 10:44 PM CITY PLANNING AIDE SPECIALTY CORE/PROT/EN DO Blood STRUCTURE OF RIGHT HAND / Unknown Venipuncture / Unknown 12/10/2024 5:21 PM CITY PLANNING AIDE 12/10/2024 5:25 PM CITY PLANNING AIDE us Jenny De Souza MD LAB - BLOOD ORDERABLES Final Re sult [facility] SPECIALTY CORE/PROT/ENDO [facility] Specialty Core/Prot/Endo [address] [facility] [address], [address] * (ABNORMAL) Comprehensive metabolic panel (12/10/2024 5:21 PM CITY PLANNING AIDE) Sodium 136 135 - 145 mmol/L 12/10/2024 5:53 PM CITY PLANNING AIDE UR LABORATORY Potassium 3.9 3.4 - 5.3 mmol/L 12/10/2024 5:53 PM CITY PLANNING AIDE UR LABORATORY Carbon Dioxide (CO2) 21(L) 22 - 29 mmol/L 12/10/2024 5:53 PM CITY PLANNING AIDE UR LABORATORY Anion Gap 11 7 - 15 mmol/L 12/10/2024 5:53 PM CITY PLANNING AIDE UR LABORATORY Urea Nitrogen 8.4 6.0 - 20.0 mg/dL 12/10/2024 5:53 PM CITY PLANNING AIDE UR LABORATORY Creatinine 0.51 0.51 - 0.95 mg/dL 12/10/2024 5:53 PM CITY PLANNING AIDE UR LABORATORY GFR Estimate >90 >60 mL/min/1.7 3m2 12/10/2024 5:53 PM CITY PLANNING AIDE UR LABORATORY Comment:eGFR calculated us2020 CKD-EPI equation. Calcium 8.9 8.8 - 10.4 mg/dL 12/10/2024 5:53 PM CITY PLANNING AIDE UR LABORATORY Chloride 104 98 - 107 mmol/L 12/10/2024 5:53 PM CITY PLANNING AIDE UR LABORATORY Glucose 79 70 - 99 mg/dL 12/10/2024 5:53 PM CITY PLANNING AIDE UR LABORATORY Alkaline Phosphatase 76 40 - 150 U/L 12/10/2024 5:53 PM CITY PLANNING AIDE UR LABORATORY AST 21 0 - 45 U/L 12/10/2024 5:53 PM CITY PLANNING AIDE UR LABORATORY ALT 16 0 - 50 U/L 12/10/2024 5:53 PM CITY PLANNING AIDE UR LABORATORY Protein Total 6.5 6.4 - 8.3 g/dL 12/10/2024 5:53 PM CITY PLANNING AIDE UR LABORATORY Albumin 3.5 3.5 - 5.2 g/dL 12/10/2024 5:53 PM CITY PLANNING AIDE UR LABORATORY Bilirubin Total 0.3 <=1.2 mg/dL 12/10/2024 5:53 PM CITY PLANNING AIDE UR LABORATORY Blood STRUCTURE OF RIGHT HAND / Unknown Venipuncture / Unknown 12/10/2024 5:21 PM CITY PLANNING AIDE 12/10/2024 5:25 PM CITY PLANNING AIDE us Jenny De Souza MD LAB - BLOOD ORDERABLES Final Re sult UR LABORATORY [facility] Acute Care Lab [address] [facility] [place] [address] documented in this encounter Visit Diagnoses [...] 4 grams/day., Antepartum $Given 12/14/2024 8:39 PM CITY PLANNING AIDE 325 mg acetaminophen (TYLENOL) tablet 975 mg 975 mg, Oral, EVERY 6 HOURS, First dose on Yarelis 12/20/24 at 1400, Start 6 hours after pre-op dose (if given) Maximum acetaminophen dose from all sources = 75 mg/kg/day not to exceed 4 grams/day. $Given 12/22/2024 8:02 PM CITY PLANNING AIDE 975 mg $Given 12/22/2024 1:57 PM CITY PLANNING AIDE 975 mg $Given 12/22/2024 4:22 AM CITY PLANNING AIDE 975 mg betamethasone acet & sod phos (CELESTONE) injection 12 mg 12 mg, Intramuscular, EVERY 24 HOURS, First dose (after last modification) on 12/10/24 at 1800, For 2 doses, For lung maturity, Antepartum $Given 12/11/2024 6:05 PM CITY PLANNING AIDE 12 mg Left Gluteus Thiago $Given 12/10/2024 6:29 PM CITY PLANNING AIDE 12 mg BioGaia Probiotic capsule [PATIENT SUPPLY] 1 capsule, Oral, 2 TIMES DAILY, First dose (after last reorder) on Tue12/12/24 at 0800, Patient-supplied home medication. Verified by two Pharmacists (initials ALLI and PLACIDO). Store in medication room on patient unit. Send medication home with patient on discharge. $Given 12/13/2024 12:27 PM CITY PLANNING AIDE 1 capsule $Given 12/12/2024 8:16 AM CITY PLANNING AIDE 1 capsule BioGaia Probiotic MISC 1 capsule 1 capsule, Oral, DAILY, First dose (after last modification) on Tue12/14/24 at 0800, Patient-supplied home medication. Verified by two Pharmacists (armandos ALLI and PLACIDO). Store in medication room on patient unit. Send medication home with patient on discharge. $Given 12/19/2024 2:32 PM CITY PLANNING AIDE 1 capsule $Given 12/16/2024 3:18 PM CITY PLANNING AIDE 1 capsule $Given 12/15/2024 2:19 PM CITY PLANNING AIDE 1 capsule BUPivacaine liposome (EXPAREL) LA inj [...] surgical procedure., Antepartum $Given 12/17/2024 3:28 PM CITY PLANNING AIDE 1,000 mg $Given 12/16/2024 7:01 PM CITY PLANNING AIDE 1,000 mg $Given 12/13/2024 10:30 PM CITY PLANNING AIDE 1,000 mg calcium carbonate (TUMS) chewable tablet 1,000 mg 1,000 mg, Oral, 4 TIMES DAILY PRN, heartburn, Starting on 12/22/24 at 1519 $Given 12/23/2024 10:57 AM CITY PLANNING AIDE 1,000 mg $Given 12/23/2024 3:31 AM CITY PLANNING AIDE 1,000 mg calcium carbonate (TUMS) chewable tablet 500 mg 500 mg, Oral, 2 TIMES DAILY, First dose on 12/10/24 at 2000 $Given 12/11/2024 11:30 AM CITY PLANNING AIDE 500 mg calcium carbonate (TUMS) chewable tablet 500 mg 500 mg, Oral, 3 TIMES DAILY PRN, heartburn, Starting on 12/22/24 at 1356 $Given 12/22/2024 3:21 PM CITY PLANNING AIDE 500 mg $Given 12/22/2024 2:14 PM CITY PLANNING AIDE 500 mg carboprost (HEMABATE) injection 250 mcg [...] pain, Starting on 12/21/[address] Waqra Cast MVI capsules [PATIENT SUPPLY] 2 capsule, Oral, DAILY, First dose (after last reorder) on Tue12/12/24 at 0800, Patient-supplied home medication. Verified by two Pharmacists (initials ALLI and PLACIDO). Store in medication room on patient unit. Send medication home with patient on discharge., Antepartum $Given 12/19/2024 2:32 PM CITY PLANNING AIDE 2 capsules $Given 12/16/2024 3:18 PM CITY PLANNING AIDE 2 capsules $Given 12/15/2024 2:19 PM CITY PLANNING AIDE 2 capsules famotidine (PEPCID) tablet 10 mg [...] HYDROmorphone (DILAUDID)., PACU $Given 12/20/2024 12:08 PM CITY PLANNING AIDE 50 mcg hydrOXYzine HCl (ATARAX) tablet 25 [...] Give with food. $Given 12/23/2024 11:42 AM CITY PLANNING AIDE 800 mg $Given 12/22/2024 11:19 PM CITY PLANNING AIDE 800 mg $Given 12/22/2024 3:22 PM CITY PLANNING AIDE 800 mg iron sucrose (VENOFER) 300 mg in sodium chloride 0.9 % 290 mL intermittent infusion 300 mg, Intravenous, Administer over 90 Minutes, at 193.3 mL/hr, EVERY 72 HOURS, First dose on Yarelis 12/13/24 at 1800, For 3 doses $Started 12/13/2024 7:51 PM CITY PLANNING AIDE 300 mg 193.3 mL/hr $New Bag 12/13/2024 7:50 PM CITY PLANNING AIDE 300 mg 193.3 mL/hr ketorolac (TORADOL) injection [...] to 2 minutes. $Given 12/20/2024 5:16 PM CITY PLANNING AIDE 15 mg lactated ringers BOLUS 500 mL Intravenous, 500 mL, ONCE, On 12/10/24 at 2130, For 1 dose $New Bag 12/10/2024 9:20 PM CITY PLANNING AIDE 500 mLs lactated ringers BOLUS 500 mL Intravenous, 500 mL, ONCE, On Tu12/11/24 at 1400, For 1 dose $New Bag 12/11/2024 2:06 PM CITY PLANNING AIDE 500 mLs lactated ringers BOLUS 500 mL Intravenous, 500 mL, ONCE, On Tue12/16/24 at 1100, For 1 dose $New Bag 12/16/2024 10:57 AM CITY PLANNING AIDE 500 mLs lactated ringers infusion Alexandrea Rockwell: [...] dose., Antepartum $New Bag 12/20/2024 9:57 AM CITY PLANNING AIDE 2 g 300 mL/hr magnesium sulfate 4 [...] dose., Antepartum $New Bag 12/20/2024 9:33 AM CITY PLANNING AIDE 4 g 100 m L/hr magnesium sulfate infusion 2 g/hr (50 mL/hr), Intravenous, CONTINUOUS, Starting on Yarelis 12/20/24 at 1000, Indication: neuroprotection. ~Contact provider 12 hours after start of infusion to discuss continuation of magnesium infusion. ~Discontinue if delivery occurs., Antepartum $New Bag 12/20/2024 10:08 AM CITY PLANNING AIDE 2 g/hr 50 mL/hr metoclopramide (REGLAN) injection [...] 2 MIN PRN, opioid reversal, Starting on Yareils 12/20/24 at 1348, Administer intramuscular if an [...] Tue12/11/24 at 0930 $Given 12/23/2024 10:57 AM CITY PLANNING AIDE 20 mg $Given 12/22/2024 9:04 AM CITY PLANNING AIDE 20 mg $Given 12/21/2024 8:11 AM CITY PLANNING AIDE 20 mg ondansetron (ZOFRAN ODT) ODT tab [...] OR dosing., PACU $Given 12/20/2024 12:24 PM CITY PLANNING AIDE 4 mg prochlorperazine (COMPAZINE) injection 10 mg [...] notify Provider., PACU $Given 12/20/2024 12:40 PM CITY PLANNING AIDE 5 mg prochlorperazine (COMPAZINE) tablet 10 mg [...] for loose stools. $Given 12/21/2024 9:14 PM CITY PLANNING AIDE 1 tablet $Given 12/21/2024 8:11 AM CITY PLANNING AIDE 1 tablet senna-docusate (SENOKOT-S/PERICOLACE) 8.6-50 MG per tablet 2 tablet 2 tablet, Oral, 2 TIMES DAILY, First dose on Yarelis 12/20/24 at 2000, Hold for loose stools. Preferred agent for constipation related to opioids. Hold for loose stools. $Given 12/20/2024 8:11 PM CITY PLANNING AIDE 2 tablets simethicone (MYLICON) chewable tablet 80 mg 80 mg, Oral, 4 TIMES DAILY PRN, other, gas, Starting on Yarelis 12/20/24 at 1338, Chew. $Given 12/22/2024 8:05 PM CITY PLANNING AIDE 80 mg $Given 12/22/2024 12:24 AM CITY PLANNING AIDE 80 mg $Given 12/21/2024 6:18 PM CITY PLANNING AIDE 80 mg sodium chloride (OCEAN) 0.65 % nasal spray 1 spray 1 spray, Both Nostrils, EVERY 1 HOUR PRN, congestion, Starting on Tue12/18/24 at 2111 sodium chloride (PF) 0.9% PF flush 3 mL 3 mL, Intracatheter, EVERY 8 HOURS, First dose on Tue12/12/24 at 1700 $Given 12/21/2024 5:11 AM CITY PLANNING AIDE 3 mLs $Given 12/20/2024 10:49 PM CITY PLANNING AIDE 3 mLs $Given 12/20/2024 8:31 AM CITY PLANNING AIDE 3 mLs sodium chloride (PF) 0.9% PF flush 3 mL 3 mL, Intracatheter, EVERY 8 HOURS, First dose on Tue12/20/24 at 1400, to lock peripheral IV dormant line $Given 12/22/2024 12:26 AM CITY PLANNING AIDE 3 mLs sucralfate (CARAFATE) suspension 1 g 1 g, Oral, 3 TIMES DAILY PRN, other, patient request, Starting on Tue12/11/24 at 0925, Shake well. Recommended to take before meals. documented in this encounter Active and Recently Administered Medications Times are shown in CITY PLANNING AIDE. Scheduled Medication Order 12/21/2024 12/22/2024 12/23/2024 acetaminophen [...] or analgesic side effects. Hold while on COD CLERK or with regular IV opioid dosing. Maximum [...] Depression Total Score: 7 12/10/19 2:56 PM CITY PLANNING AIDE documented as of this encounter Care Teams Book Retailer Relationship Specialty Start Date End Date No Ref-Primary, Physician PCP - General 12/04/21 Flower Amato MD [address] [address] Assigned OBGYN Provider 11/22/24 documented as of this encounter
--- OUTSIDE RECORDS SUMMARY | 2024-12-24 00:23 | XMS_ITS | Encounter Summary ---
Author Organization [facility] [place] Address [address] [facility] [place] [address] Care Team Providers Care Hand Heel Seat Fitter Name Role Phone No Ref-Primary, Physician Primary Care Provider Flower Amato MD Unavailable [phone] Reason for Referral * Diagnostic Imaging Ultrasound (Routine) - Pending Review Specialty Diagnoses / Procedures Referred By Contac t Referred To Contact Radiology. 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 Procedures MFM Twins US Comprehensive F/U Nicole Byrd MD [address] [place] [id number] Phone: tel: fax: Referral ID Status Reason Start Date Expiration Date V isits Requested Visits Authorized [id number] Pending Review 11/30/2024 11/30/2025 1 1 [facility] Reason for Visit * Reason Comments Ultrasound RL2/UAR/MCA-mono/di twins, fetus 2 with FGR Encounter Details Date Type Department Care Team (Latest Contact Info) Description 11/30/2024 2:45 PM MASTER [facility] Office Visit [facility] [address] [place] [address] Nicole Byrd MD [address] [place] [address] Monochorionic diamniotic twin gestation in [...] on file Legal Sex Female 11:44 PM MASTER [facility] Gender Identity Not on file Sexual Orientation [...] the [facility]. Nicole Byrd MD Shoulder Boner, MANAGER STATISTICAL PROGRAMMING Maternal- Medicine [facility] documented in this encounter Nursing Notes * Rivka Jones RN - 11/30/2024 2:45 PM CST Patient reports positive movement x 2, denies pain, leaking of fluid, or bleeding. Education provided to patient on today's ultrasound. SBAR given to [facility], see their note in Epic. [facility] documented in this encounter Plan of Treatment Not on file documented as of this encounter Results * MFM Twins US Comprehensive F/U (12/03/2024 3:46 PM MASTER [facility]) Anatomical Region Laterality Modality Ultrasound 12/03/2024 2:24 PM MASTER [facility] Impressions 12/04/2024 8:53 AM MASTER [facility] IMPRESSION ----- Monochorionic diamniotic twin gestation at [...] reversed a wave. Narrative 12/04/2024 8:53 AM MASTER [facility] Comp Follow Up ----- Pat. Name: HEATHER CHÁVEZ Study Date: 12/03/2024 2:24pm Pat. NO: [id number] Referring MD: NICOLE BYRD Site: Kettle Operator Head: Piper Huynh RDMS : 1995 Age: 29 [...] 1 lb 2 oz EFW by Hadlock ([id number]) EFW discordance 32.5 % Head / Face / Neck Biometry: Special Needs Child Caregiver 7.2 mm CM 3.9 mm Thorax / [...] 0 lb 12 oz EFW by Hadlock ([id number]) EFW discordance 32.5 % Head / Face / Neck Biometry: Special Needs Child Caregiver 6.3 mm Extremities / Bony Struc Biometry: Tibia 25.7 mm 1% Valadez Fibula 26.0 mm 3% Valadez Fetus 1: ANATOMY ----- The following structures appear normal: Head / Neck Cranium. Head size. Head shape. Lateral ventricles. Midline falx. Cavum septi pellucidi. Cerebellum. Cisterna magna. Thalami. Face Lips. Profile. Nose. Heart / Thorax 4-chamber view. RVOT view. LVOT view. 8-dmkliq-cwqkduz view. Diaphragm. Abdomen Stomach. Kidneys. Bladder. Spine [...] Thorax 4-chamber view. RVOT view. LVOT view. 0-jffzpt-mouzver view. sex: female. Fetus 1: TTTS ASSESSMENT [...] context, reviewed case with Dr. Spangler at [facility] to discuss possible management options. He [...] optimal outcomes for both babies and declines [facility] referral. After discussion regarding chances of [...] the patient (reviewing medical records/tests), in direct fnex-kn-piue contact with the patient during the visit counseling and discussing the plan of care and documenting the visit in the electronic medical record. Procedure Note Flor Dickson MD - 12/04/2024 Comp Follow Up ----- Pat. Name: HEATHER CHÁVEZ Study Date: 12/03/2024 2:24pm Pat. NO: [id number] Referring MD: NICOLE BYRD Site: Kettle Operator Head: Piper Huynh RDMS : 1995 Age: 29 [...] EFW (lb,oz) 1 lb 2oz EFW by Hadlock([id number]) EFW discordance 32.5% Head / Face / Neck Biometry: Special Needs Child Caregiver 7.2mm CM 3.9mm Thorax / Lungs Biometry: [...] EFW (lb,oz) 0 lb 12oz EFW by Hadlock([id number]-FL) EFW discordance 32.5% Head / Face / Neck Biometry: Special Needs Child Caregiver 6.3mm Extremities / Bony Struc Biometry: Tibia 25.7mm 1%Valadez Fibula 26.0mm 3%Valadez Fetus 1: ANATOMY ----- The following structures appear normal: Head / Neck Cranium. Head size. Head shape.Lateral ventricles. Midline falx. Cavum septi pellucidi. Cerebellum.Cisterna magna. Thalami. Face Lips. Profile. Nose. Heart / Thorax 4-chamber view. RVOT view. LVOT view.3-pvpltg-nwanwtt view. Diaphragm. Abdomen Stomach. Kidneys. Bladder. Spine [...] / Thorax 4-chamber view. RVOT view. LVOT view.3-subind-njegjpf view. sex: female. Fetus 1: TTTS ASSESSMENT [...] for twin 1. Given twin 2 is [id number] at 22 weeks, chances of intact survival [...] this context, reviewed case with Dr. Spangler [facility] to discuss possible management options. He discussed that there aresituations in which fetoscopic laser photocoagulation of the placenta could be offered todichorionize the placenta with the intent of improving outcomes for bothtwins. However, he notes that in this setting, chances of this leading to a co-twin demise of twin 2 arerather high (60-70%). Heather desires optimal outcomes for both babies and declines [facility] referral.After discussion regarding chances of survival [...] see the patient(reviewing medical records/tests), in direct jqei-wm-gkny contact with the patient during the visitcounseling [...] with intermittent reversed awave. Nicole Byrd MD [facility] ORDERABLES Edited Result - Final documented in this encounter Visit Diagnoses Diagnosis Monochorionic diamniotic twin gestation in second trimester- Primary Intrauterine growth restriction affecting antepartum care of mother in first trimester, fetus 2 Ductus venosus abnormality Monochorionic diamniotic twin gestation in second trimester documented in this encounter Care Teams Hand Heel Seat Fitter Relationship Specialty Start Date End Date No Ref-Primary, Physician PCP - General 12/04/21 Flower Amato MD [address] [place] [id number] Assigned OBGYN Provider 11/22/24 documented as of this encounter
--- OUTSIDE RECORDS SUMMARY | 2024-12-24 00:23 | XMS_ITS | Encounter Summary ---
Author Organization [facility] Address [address] [place] [address] Care Team Providers Care Television News Reporter Name Role Phone No Ref-Primary, Physician Primary Care Provider Flower Amato MD Unavailable [phone] Reason for Referral * Diagnostic Imaging Ultrasound (Routine) - Pending Review Specialty Diagnoses / Procedures Referred By Contac t Referred To Contact Radiology. Diagnoses Monochorionic diamniotic twin , antepartum Procedures MFM Twins US Comprehensive F/U Jesus Harmon MD [address] [place] [address] Phone: tel: fax: Referral ID Status Reason Start Date Expiration Date V isits Requested Visits Authorized [id number] Pending Review 12/05/2024 12/05/2025 1 1 E CARPENTER Reason for Visit * Diagnostic Imaging Ultrasound (Routine) - Pending Review Specialty Diagnoses / Procedures Referred By Contac t Referred To Contact Radiology. Diagnoses Monochorionic diamniotic twin , antepartum Procedures MFM Twins US Comprehensive F/U Jesus Harmon MD [address] [place] [address] Phone: tel: fax: Referral ID Status Reason Start Date Expiration Date V isits Requested Visits Authorized [id number] Pending Review 12/05/2024 12/05/2025 1 1 Encounter Details Date Type Department Care Team (Latest Contact Info) Description 12/07/2024 10:08 AM HOUSE CARPENTER - 12/07/2024 11:59 PM HOUSE CARPENTER Hospital Encounter [facility] [place] [address] [place] [address] Jaren Rodriguez MD [address] [place] [address] Monochorionic diamniotic twin , antepartum Discharge Disposition: [...] on file Legal Sex Female 11:44 PM HOUSE CARPENTER Gender Identity Not on file Sexual Orientation [...] US COMPREHENSIVE F/U Routine 12/07/2024 11:40 AM HOUSE CARPENTER Monochorionic diamniotic twin , antepartum documented in this encounter Results * MFM Twins US Comprehensive F/U (12/07/2024 11:40 AM HOUSE CARPENTER) Anatomical Region Laterality Modality Ultrasound 12/07/2024 10:4 5 AM HOUSE CARPENTER Impressions 12/07/2024 1:23 PM HOUSE CARPENTER IMPRESSION ----- Patient here for growth assessment [...] bladder is visualized. Narrative 12/07/2024 1:23 PM HOUSE CARPENTER [facility] Surveillance US ----- Pat. Name: DEANDRE CHÁVEZ Study Date: 12/07/2024 10:45am Pat. NO: [id number] Referring MD: PAMELA CUELLAR Site: Net Programmer Analyst: Kenyetta Lyons RDMS : 1995 Age: [...] twin pregnancies with selective intrauterine growth restriction. Portuguese Journal of Obstetrics and Gynecology, 203(4), 333.e1-7. ? Radha HALL, et al. (2018). Consensus definition of growth restriction: A [place] procedure. Ultrasound in Obstetrics & Gynecology, 52(1), 24-29. ? Luisa Dennis et al. (2020). Twin complications: The risk of single intrauterine demise in monochorionic twins. Diagnosis, 40(9), 0069-3474. ? Boris Dennis et al. (2012). mortality [...] CHÁVEZ Study Date: 12/07/2024 10:45am Pat. NO: [id number] Referring MD: PAMELA CUELLAR Site: Net Programmer Analyst: Kenyetta Lyons RDMS : 1995 Age: [...] in cases of AREDF in sFGR is ibxrogrxcbsgi42-95 weeks (Radha et al., 2018), though survival [...] al. (2018). Consensus definition of growthrestriction: A [place] procedure. Ultrasound in Obstetrics & Gynecology,52(1), 24-29. ? Luisa Dennis, et al. (2020). Twin complications: The risk ofsingle intrauterine demise in monochorionic twins. PrenatalDiagnosis, 40(9), 4880-0608. ? Boris Dnenis, et al. (2012). mortality and morbidity inmonochorionic [...] bladder is visualized. us Jesus Harmon MD [facility] US ORDERABLES Edited Result - Final documented in this encounter Visit Diagnoses Diagnosis Monochorionic diamniotic twin , antepartum Twin , antepartum documented in this encounter Care Teams Television News Reporter Relationship Specialty Start Date End Date No Ref-Primary, Physician PCP - General 12/04/21 Flower Amato MD [address] [facility] [address] [address] Assigned OBGYN Provider 11/22/24 documented as of this encounter
--- OUTSIDE RECORDS SUMMARY | 2024-12-24 00:23 | XMS_ITS | Encounter Summary ---
Author Organization [facility] Address [address] [place] [address] Care Team Providers Care Automotive Manufacturer Name Role Phone No Ref-Primary, Physician Primary Care Provider Flower Amato MD Unavailable [phone] Reason for Referral * CV Testing (Routine) - Closed Specialty Diagnoses / Procedures Referred By Contac t Referred To Contact Cardiology Diagnoses Monochorionic diamniotic twin gestation Procedures Echo (TTE) Complete Yobani Lopez MD [address] [address] Phone: tel: fax: [facility] [address] [place] [address] Phone: tel: Referral ID Status Reason Start Date Expiration Date Visits Re quested Visits Authorized [id number] Closed 10/19/2024 10/19/2025 1 1 ER OPERATOR Reason for Visit * CV Testing (Routine) - Closed Specialty Diagnoses / Procedures Referred By Contac t Referred To Contact Cardiology Diagnoses Monochorionic diamniotic twin gestation Procedures Echo (TTE) Yobani Olivares MD [address] [place] [address] Phone: tel: fax: [facility] [address] [place] [address] Phone: tel: Referral ID Status Reason Start Date Expiration Date Visits Re quested Visits Authorized [id number] Closed 10/19/2024 10/19/2025 1 1 Encounter Details Date Type Department Care Team (Latest Contact Info) Description 11/30/2024 12:00 PM PASTER OPERATOR - 11/30/2024 12:24 PM PASTER OPERATOR Hospital Encounter [facility] [place] [address] Yobani Lopez MD [address] [place] [address] Monochorionic diamniotic twin gestation in second [...] on file Legal Sex Female 11:44 PM PASTER OPERATOR Gender Identity Not on file Sexual [...] ECHO COMPLETE Routine 11/30/2024 1 :46 PM PASTER OPERATOR Monochorionic diamniotic twin gestation in second trimester documented in this encounter Results * ECHO COMPLETE (11/30/2024 1:46 PM PASTER OPERATOR) Anatomical Region Laterality Modality Echocardiography 11/30/2024 1:31 PM PASTER OPERATOR Narrative 11/30/2024 2:02 PM PASTER OPERATOR [id number]^[id number] Study ID: [id number] [facility] [place] [address] Echocardiogram Name: HEATHER CHÁVEZ Study Date: 11/30/2024 01:31 PM Patient Location: [facility] Gender: Female Patient Class: Outpatient : [id number] Age: 29 yrs Ordering Provider: YOBANI LOPEZ Referring Provider: YOBANI LOPEZ Performed By: Daphney Dao RDCS Reading Physician: Luc Dominguez MD Reason For Study: Monochorionic diamniotic twin gestation in second trimester Data: Number of fetuses: This is a twin gestation. Due date: 04/07/2025. Gestational age: 21w5d. Delivery at: [facility]. Specific Indication: echocardiogram performed for monochorionic diamniotic [...] to the left atrium. There is laminar qseiy-xp-mfqm shunting across the foramen ovale. Atrioventricular valves: [...] Procedure Note Luc Dominguez MD - 11/30/2024 [id number] [facility] [id number]^YOBANI Study ID:[id number] [facility] [address] [place] [address] Echocardiogram Name: HEATHER CHÁVEZ Study Date: 11/30/2024 01:31 PM Patient Location: [facility] Gender: Female Patient Class:Outpatient : [id number] Age: 29 yrs Ordering Provider: YOBANI LOPEZ Referring Provider: YOBANI LOPEZ Performed By: Daphney Dao RUST Reading Physician: Luc Dominguez MD Reason For Study: Monochorionic diamniotic twin gestation in secondtrimester Data: Number of fetuses: This is a twin gestation. Due date: 04/07/2025. Gestational age: 21w5d. Delivery at: [facility]. Specific Indication: echocardiogram performed formonochorionic diamniotic twins. [...] in to the left atrium. There is yhilssrdxrtd-uy-adcn shunting across the foramen ovale. Atrioventricular valves: [...] trimester documented in this encounter Care Teams Automotive Manufacturer Relationship Specialty Start Date End Date No Ref-Primary, Physician PCP - General 12/04/21 Flower Amato MD [address] [facility] [address] [place] [address] Assigned OBGYN Provider 11/22/24 documented as of this encounter
--- OUTSIDE RECORDS SUMMARY | 2024-12-24 00:23 | XMS_ITS | Encounter Summary ---
Author Organization [facility] Address [address] [place] [address] [place] [address] Care Team Providers Care Hvac/R Service Technician Name Role Phone No Ref-Primary, Physician Primary Care Provider Flower Amato MD Unavailable [phone] Encounter Details Date Type Department Care Team (Late st Contact Info) Description 12/20/2024 9:35 AM FUEL OIL TRUCK DRIVER Ancillary Procedure [facility] Imaging [address] [place] [address] Social History Tobacco Use Types [...] on file Legal Sex Female 11:44 PM FUEL OIL TRUCK DRIVER Gender Identity Not on file Sexual Orientation Not on file documented as of this encounter Plan of Treatment Not on file documented as of this encounter Procedures Procedure Name Priority Date/Time Associated Diagnosis Comments POC US GUIDANCE NEEDLE PLACEMENT Routine 12/20/2024 9:33 AM FUEL OIL TRUCK DRIVER documented in this encounter Results * POC US Guidance Needle Placement (12/20/2024 9:33 AM FUEL OIL TRUCK DRIVER) Anatomical Region Laterality Modality Other Impressions 12/20/2024 9:33 AM FUEL OIL TRUCK DRIVER Bilateral transverus abdominal plane block. Narrative 12/20/2024 9:33 AM FUEL OIL TRUCK DRIVER Bilateral transverus abdominal plane block. Evangelina Helm MD IMG POCUS Final Result documented in this encounter Visit Diagnoses Not on filedocumented in this encounter Additional Health Concerns Assessment Noted Time PHQ-9 Depression Total Score: 7 12/10/19 25 2:56 PM FUEL OIL TRUCK DRIVER documented as of this encounter Care Teams Hvac/R Service Technician Relationship Specialty Start Date End Date No Ref-Primary, Physician PCP - General 12/04/21 Flower Amato MD [address] [facility] [address] [place] [address] Assigned OBGYN Provider 11/22/24 documented as of this encounter
--- OUTSIDE RECORDS SUMMARY | 2024-12-24 00:24 | XMS_ITS | Encounter Summary ---
Author Organization [facility] Address [address] [place] [address]. [place] [address] Care Team Providers Care Certified Nurse Midwife Name Role Phone No Ref-Primary, Physician Primary Care Provider Flower Amato MD Unavailable [phone] Encounter Details Date Type Department Care Team (Late st Contact Info) Description 12/20/2024 11:30 AM SPECIAL EDUCATION PARAEDUCATOR Ancillary Procedure [facility] Imaging [address] [place] [address] Eneida Sanon MD [address] [place] [address] Social History Tobacco Use Types Packs/Day [...] in an abandoned building, in an overnight assisted, or couch-surfing.) No 12/10/2024 Are you worried [...] file Legal Sex Female 11:44 PM SPECIAL EDUCATION PARAEDUCATOR Gender Identity Not on file Sexual Orientation Not on file documented as of this encounter Plan of Treatment Not on file documented as of this encounter Procedures Procedure Name Priority Date/Time Associated Diagnosis Comments POC US GUIDANCE NEEDLE PLACEMENT Routine 12/20/2024 11:16 AM SPECIAL EDUCATION PARAEDUCATOR documented in this encounter Results * POC US Guidance Needle Placement (12/20/2024 11:16 AM SPECIAL EDUCATION PARAEDUCATOR) Anatomical Region Laterality Modality Other Impressions 12/20/2024 11:16 AM SPECIAL EDUCATION PARAEDUCATOR Transversus abdominus plane block, bilateral us Eneida Sanon MD IMG POCUS Final Result documented in this encounter Visit Diagnoses Not on filedocumented in this encounter Additional Health Concerns Assessment Noted Time PHQ-9 Depression Total Score: 7 12/10/19 25 2:56 PM SPECIAL EDUCATION PARAEDUCATOR documented as of this encounter Care Teams Certified Nurse Midwife Relationship Specialty Start Date End Date No Ref-Primary, Physician PCP - General 12/04/21 Flower Amato MD [address] [facility] [address] [place] [address] Assigned OBGYN Provider 11/22/24 documented as of this encounter
--- OUTSIDE RECORDS SUMMARY | 2024-12-24 00:24 | XMS_ITS | Encounter Summary ---
Author Organization [facility] Address [address] [facility] [place] [address] Care Team Providers Care Branch Office Administrator Name Role Phone No Ref-Primary, Physician Primary Care Provider Flower Amato MD Unavailable [phone] Encounter Details Date Type Department Care Team (Late st Contact Info) Description 12/10/2024 2:00 PM PRODUCTION DEPARTMENT SUPERVISOR Office Visit [facility] [place] [address] [place] [address] Jaren Rodriguez MD [address] [place] [address] Poor growth affecting management of [...] file Legal Sex Female 11:44 PM PRODUCTION DEPARTMENT SUPERVISOR Gender Identity Not on file Sexual Orientation Not on file documented as of this encounter Progress Notes * Jaren Rodriguez MD - 12/10/2024 2:00 PM CST Please refer to ultrasound report under 'Imaging' Studies of 'Chart Review' tabs. Jaren Rodriguez M.D. UCTION DEPARTMENT SUPERVISOR documented in this encounter Plan of Treatment Not on file documented as of this encounter Visit Diagnoses Diagnosis Poor growth affecting management of mother in second trimester, fetus 2- Primary Monochorionic diamniotic twin , antepartum Twin , antepartum documented in this encounter Additional Health Concerns Assessment Noted Time PHQ-9 Depression Total Score: 7 12/10/19 25 2:56 PM PRODUCTION DEPARTMENT SUPERVISOR documented as of this encounter Care Teams Branch Office Administrator Relationship Specialty Start Date End Date No Ref-Primary, Physician PCP - General 12/04/21 Flower Amato MD [address] [address] Assigned OBGYN Provider 11/22/24 documented as of this encounter
--- OUTSIDE RECORDS SUMMARY | 2024-12-24 00:24 | XMS_ITS | Encounter Summary ---
Author Organization [facility] Address [address] [place] [address] Care Team Providers Care Airborne Missions Systems Name Role Phone No Ref-Primary, Physician Primary Care Provider Flower Amato MD Unavailable [phone] Reason for Referral * Consultation (Routine: Next available opening) - Pending Review Specialty Diagnoses / Procedures Referred By Noa lilly Referred To Contact Diagnoses Monochorionic diamniotic twin , antepartum Kenia Lyons CNM [address] [address] Phone: tel: fax: Referral ID Status Reason Start Date Expiration Date V isits Requested Visits Authorized [id number] Pending Review 12/10/2024 12/10/2025 1 1 Question Answer Office Visit Type: [facility] DESIGNER Reason for Visit * Reason Comments Care OBFV- M/D twins * Consultation (Routine: Next available opening) - Pending Review Specialty Diagnoses / Procedures Referred By Noa lilly Referred To Contact Diagnoses Monochorionic diamniotic twin , antepartum Jesus Harmon MD [address] [place] [address] Phone: tel: fax: Referral ID Status Reason Start Date Expiration Date V isits Requested Visits Authorized [id number] Pending Review 12/05/2024 12/05/2025 1 1 Encounter Details Date Type Department Care Team (Latest Contact Info) Description 12/10/2024 2:15 PM PCB DESIGNER Office Visit [facility] [place] [address] [place] [address] Eloy Kenia Esther, CN [address] [place], [place] [address] Monochorionic diamniotic twin , antepartum Social History [...] Answer Date Recorded Do you have housing? (Vjiay g is defined as stable permanent housing and does not include staying ouside in a car, in a tent, in an abandoned building, in an overnight senior care, or couch-surfing.) No 12/10/2024 Are you worried [...] on file Legal Sex Female 11:44 PM PCB DESIGNER Gender Identity Not on file Sexual Orientation Not on file documented as of this encounter Last Filed Vital Signs Vital Sign Reading Time Taken Comments Blood Pressure 107/70 12/10/2024 3:07 PM PCB DESIGNER Pulse 82 12/10/2024 3:07 PM PCB DESIGNER Temperature - - Respiratory Rate 18 12/10/2024 3:07 PM PCB DESIGNER Oxygen Saturation 100% 12/10/2024 3:07 PM PCB DESIGNER RA Inhaled Oxygen Concentration - - Weight 72.6 kg (160 lb) 12/10/2024 3:07 PM PCB DESIGNER Height - - Body Mass Index 26.63 12/04/2021 10:10 PM PCB DESIGNER documented in this encounter Patient Instructions * Patient Instructions* Beverly Mccrary RN - 12/10/2024 2:15 PM PCB DESIGNER Images from the original note were not [...] Where can you learn more? Go to [email or web address]/patiented Enter G264 in the search box to learn more about Weeks 22 to 26 of Your : Care Instructions. Current as of: February 28, 2024 Content Version: 14.3 ?? 2023 [employer]. Care instructions adapted under license by your healthcare professional. If you have questions about a medical condition or this instruction, always ask your healthcare professional. [employer] disclaims any warranty or liability for your [...] Where can you learn more? Go to [email or web address].net/patiented Enter A472 in the search box to learn more about Learning About Screening for Gestational Diabetes. Current as of: February 28, 2024 Content Version: 14.3 ?? 2023 [employer]. Care instructions adapted under license by your healthcare professional. If you have questions about a medical condition or this instruction, always ask your healthcare professional. [employer] disclaims any warranty or liability for your use of this information. You have been provided the My Labor and Wishes document. Please review at home and bring to your next visit. Bring this sheet to the hospital for your . Give copies to your care team members and support person. Additional copies can be found here: [email or web address] DESIGNER documented in this encounter Progress Notes * Kenia Lyons, ROSALINA - 12/10/2024 2:[address] Harmon in with patient and partner to review US findings and is recommending admission to thespital for further monitoring, BMZ administration, and NICU consult. Patient not seen for OB visit at this time. No charge. Kenia Lyons CNM on 12/10/2024 at 3:14 PM DESIGNER documented in this encounter Nursing Notes * [...] and ambulatory to [facility]. Beverly Mccrary, MAGUI DESIGNER documented in this encounter Plan of Treatment Scheduled Referrals Name Type Priority Associated Diagnoses Orde r Schedule MFM Office Visit - [facility] Referral Routine: Next available opening Monochorionic diamniotic twin , antepartum Expected: 12/10/2024 (Approximate), Expires: 12/10/2025 documented as of this encounter Visit Diagnoses Diagnosis Monochorionic diamniotic twin , antepartum Twin , antepartum documented in this encounter Additional Health Concerns Assessment Noted Time PHQ-9 Depression Total Score: 7 12/10/19 25 2:56 PM PCB DESIGNER documented as of this encounter Care Teams Airborne Missions Systems Relationship Specialty Start Date End Date No Ref-Primary, Physician PCP - General 12/04/21 Flower Amato MD [address] [address] Assigned OBGYN Provider 11/22/24 documented as of this encounter
--- OUTSIDE RECORDS SUMMARY | 2024-12-24 00:24 | XMS_ITS | Encounter Summary ---
Author Organization [facility] Address [address] [place] [address] Care Team Providers Care Aircraft Systems Technician Name Role Phone No Ref-Primary, Physician Primary Care Provider Flower Amato MD Unavailable [phone] Reason for Referral * Diagnostic Imaging Ultrasound (Routine) - Pending Review Specialty Diagnoses / Procedures Referred By Contac t Referred To Contact Radiology. Diagnoses Monochorionic diamniotic twin , antepartum Procedures MFM Twins US Comprehensive F/U Jesus Harmon MD [address] [place] [address] Phone: tel: fax: Referral ID Status Reason Start Date Expiration Date V isits Requested Visits Authorized [id number] Pending Review 12/05/2024 12/05/2025 1 1 ERN CHANGER Reason for Visit * Diagnostic Imaging Ultrasound (Routine) - Pending Review Specialty Diagnoses / Procedures Referred By Contac t Referred To Contact Radiology. Diagnoses Monochorionic diamniotic twin , antepartum Procedures MFM Twins US Comprehensive F/U Jesus Harmon MD [address] [place] [address] Phone: tel: fax: Referral ID Status Reason Start Date Expiration Date V isits Requested Visits Authorized [id number] Pending Review 12/05/2024 12/05/2025 1 1 Encounter Details Date Type Department Care Team (Latest Contact Info) Description 12/10/2024 1:10 PM PATTERN CHANGER - 12/10/2024 3:16 PM PATTERN CHANGER Hospital Encounter [facility] [place] [address] [place] [address] Jaren Rodriguez MD [address] [place] [address] Monochorionic diamniotic twin , antepartum [...] in an abandoned building, in an overnight jail, or couch-surfing.) No 12/10/2024 Are you worried [...] on file Legal Sex Female 11:44 PM PATTERN CHANGER Gender Identity Not on file Sexual Orientation [...] US COMPREHENSIVE F/U Routine 12/10/2024 2:29 PM PATTERN CHANGER Monochorionic diamniotic twin , antepartum NON-STRESS TEST - HIM SCAN 12/10/2024 12:00 AM PATTERN CHANGER documented in this encounter Results * MFM Twins US Comprehensive F/U (12/10/2024 2:29 PM PATTERN CHANGER) Anatomical Region Laterality Modality Ultrasound 12/10/2024 1:23 PM PATTERN CHANGER Impressions 12/10/2024 2:45 PM PATTERN CHANGER IMPRESSION ----- Patient is here for antepartum [...] flow in a-wave. Narrative 12/10/2024 2:45 PM PATTERN CHANGER [facility] Surveillance US ----- Pat. Name: HEATHER CHÁVEZ Study Date: 12/10/2024 1:23pm Pat. NO: [id number] Referring MD: PAMELA CUELLAR Site: [employer] Worker: Avani Ren RDMS : 1995 Age: 29 [...] CHÁVEZ Study Date: 12/10/2024 1:23pm Pat. NO: [id number] Referring MD: PAMELA CUELLAR Site: [place] [place] Worker: Avani Ren RDMS : 1995 Age: 29 [...] reverse flow in a-wave. Jesus Harmon MD [facility] US ORDERABLES Edited Result - Final * Non-Stress Test - HIM Scan (12/10/2024 12:00 AM PATTERN CHANGER) 12/10/2024 Provider Outside PROCEDURES Final Result documented in this encounter Visit Diagnoses Diagnosis Monochorionic diamniotic twin , antepartum Twin , antepartum documented in this encounter Additional Health Concerns Assessment Noted Time PHQ-9 Depression Total Score: 7 12/10/19 25 2:56 PM PATTERN CHANGER documented as of this encounter Care Teams Aircraft Systems Technician Relationship Specialty Start Date End Date No Ref-Primary, Physician PCP - General 12/04/21 Flower Amato MD [address] [place] [address] Assigned OBGYN Provider 11/22/24 documented as of this encounter
--- OUTSIDE RECORDS SUMMARY | 2024-12-24 00:24 | XMS_ITS | Encounter Summary ---
Author Organization [place] Address [address] [facility] [place] [address] Care Team Providers Care Jr. Java Developer Name Role Phone No Ref-Primary, Physician Primary Care Provider Flower Amato MD Unavailable [phone] Reason for Visit * Reason Comments monitoring * Auth/Cert (Routine) Specialty Diagnoses / Procedures Referred By Contac t Referred To Contact medication tech Diagnoses Monochorionic diamniotic twin , antepartum Maternity*Rudi 04/07/25/mono/di twins [facility] [address] [place], [place] [address] [address] Phone: tel: Referral ID Status Reason Start Date Expiration Date Visits Re quested Visits Authorized [id number] 1 1 Encounter Details Date Type Department Care Team (Late st Contact Info) Description 12/20/2024 10:50 AM PERSONNEL GENERALIST MANAGER - 12/20/2024 12:50 PM PERSONNEL GENERALIST MANAGER Surgery [facility] [address] [place] [id number] Pennie Frank MD [phone] [facility] [address] [place] [address] section Surgery Details Date/Time Status [...] on file Legal Sex Female 11:44 PM PERSONNEL GENERALIST MANAGER Gender Identity Not on file Sexual Orientation Not on file documented as of this encounter Last Filed Vital Signs Vital Sign Reading Time Taken Comments Blood Pressure 127/62 12/20/2024 12:45 PM PERSONNEL GENERALIST MANAGER Pulse 103 12/20/2024 12:45 PM PERSONNEL GENERALIST MANAGER Temperature 36.2 C (97.2 F) 12/20/2024 12:00 PM PERSONNEL GENERALIST MANAGER Respiratory Rate 17 12/20/2024 12:45 PM PERSONNEL GENERALIST MANAGER Oxygen Saturation 100% 12/20/2024 12:45 PM PERSONNEL GENERALIST MANAGER Inhaled Oxygen Concentration - - Weight 72 kg (158 lb 12.8 oz) 12/17/2024 10:30 P M PERSONNEL GENERALIST MANAGER Height - - Body Mass Index 24.71 12/04/2021 10:10 PM PERSONNEL GENERALIST MANAGER documented in this encounter Discharge Instructions * Discharge Instructions* Nena Ren RN - 12/23/2024 7:48 AM PERSONNEL GENERALIST MANAGER Images from the original note were not [...] of your health care provider. Copyright 2020 [facility]. All rights reserved. Clinically reviewed by Amrita Damico, MAGUIC-OB, MSN. [employer] 197529 - Rev 12/23. Section: What to Expect [...] your doctor if you can take an gasc-jal-hlcagpb medicine. If you think your pain medicine [...] Call the Suicide and Crisis Lifeline at 132. Call 1-401-453-TALK ( ). Text HOME to 454883 to access the Crisis Text Line. Consider saving these numbers in your phone. Go to ReachLocal for more information or to chat online. Call your doctor or microsoft dynamics ax developer now or seek immediate medical care if: [...] be sure to contact your doctor or microsoft dynamics ax developer if: Your vaginal bleeding isn't decreasing. You feel sad, anxious, or hopeless for more than a few days. You are having problems with your breasts or . Where can you learn more? Go to https://www.[employer].Structured Polymers/patiented Enter M806 in the search box to learn more about Section: What to Expect at Home. Current as of: February 28, 2024 Content Version: 14.3 ?? 2023 [employer]. Care instructions adapted under license by your healthcare professional. If you have questions about a medical condition or this instruction, always ask your healthcare professional. [employer] disclaims any warranty or liability for your use of this information. ONNEL GENERALIST MANAGER ONNEL GENERALIST MANAGER documented in this encounter Medications at Time [...] Guevara MD - 12/23/2024 7:53 AM CST [facility] Note Name: Deandre Chávez S: [...] referral at discharge # Asthma - Continue APPLIANCE FIXER albuterol Medically Ready for Discharge: Anticipate discharge later today Sujey Lyons MD PGY1 [facility] Obstetrics, Gynecology, & Women's Health [...] 1-2 weeks Aure Guevara MD 10:33 AM ONNEL GENERALIST MANAGER ONNEL GENERALIST MANAGER * Jenny Newby MD - 12/21/2024 7:27 PM CST [facility] Note Name: Deandre Chávez S: [...] at this time. # Asthma - Continue APPLIANCE FIXER albuterol Medically Ready for Discharge: Anticipate discharge later today vs tomorrow. Guevara Amin DO [facility] OBGYN- PGY3 7:29 AM December 22, 2024 [facility] staff: Appreciate note by Dr. Amin. I have seen and examined the patient without the resident. I have reviewed, edited, and agree with the note. having a really hard time sleeping d/t anxiety. [place] like she just had a panic attack. [...] Jenny Newby MD, FACOG 12/22/2024 11:49 AM ONNEL GENERALIST MANAGER ONNEL GENERALIST MANAGER * Chantell Jolley - 12/21/2024 1:19 PM CST [facility] Progress Note, [facility] ([facility]) [facility] Supportive visit with Deandre and Los per the delivery of their twin girls Micaela and Isidra yesterday morning. Family is familiar to this commercial insurance underwriter from antepartum stay. I wished them congratulations on their girls' , and offered emotional support. Lso was on thephone when I entered but [...] gentleness as she navigates very tender moments. Shinto suze continues to be a primary support [...] realistic understanding, and Deandre prays for a blakcburn mind for herself in the comingdays. As [...] again next week. Chantell Jolley MDiv Associate Culinary Artist Pager [phone] Reachable by Section 101 * [facility] remains available 23/05 for emergent requests/referrals, either by having the switchboard pagethe on-call hospital unit coordinator or by entering an ALEX/STAT consult in [facility] (this will also page the on-call hospital unit coordinator). Routine [facility] consults receive an initial response within 24 hours.* ONNEL GENERALIST MANAGER ONNEL GENERALIST MANAGER * Jenny Newby MD - 12/21/2024 7:12 AM CST [facility] Note Name: Deandre Chávez S: [...] BC: Not discussed # Asthma - Continue APPLIANCE FIXER albuterol Medically Ready for Discharge: Anticipated in 2-4 Days Maureen Cardenas MD SHOT PACKER PGY-3 12/21/2024 7:13 AM [facility] staff: Appreciate note by Dr. Cardneas. I have seen and examined the patient without the resident. I have reviewed, edited, and agree with the note. Jenny Newby MD, FACOG 12/21/2024 8:55 AM ONNEL GENERALIST MANAGER ONNEL GENERALIST MANAGER * Katerina Hardy MD - 12/21/2024 6:13 [...] care for this patient. Katerina Hardy MD Black Ash Worker, CA-1, PGY-2 Cosigned by Mary Lou Abel MD at 12/21/2024 4:26 PM PERSONNEL GENERALIST MANAGER ONNEL GENERALIST MANAGER ONNEL GENERALIST MANAGER Associated attestation - Mary Lou Abel MD - 12/21/2024 4:26 PM PERSONNEL GENERALIST MANAGER Physician Attestation I agree with the information in this note. Mary Lou Abel MD * Joceline Grant MD - 12/20/2024 2:59 PM CST To bedside with Dr Ahmadi to de-brief today's events. Reviewed surgical course and intra-op findings. No questions at this time. Discussed that S team will follow patient for remainder of hospitalization. Joceline Grant MD Behavioral Health Aide PGY-3 12/20/24 3:00 PM ONNEL GENERALIST MANAGER * Kaia Spence RN - 12/20/2024 2:00 [...] Response: Patient tolerated transfer and is stable. ONNEL GENERALIST MANAGER * Emil Ahmadi MD - 12/20/2024 9:52 AM CST [facility] Progress Note- Acute Event Received urgent Vocera message from bedside RN at 0847 regarding variable decelerations on monitoring. At that time, this commercial insurance underwriter was on the shuttle to the [place] for rounds- got off shuttle outside of [facility] and presented to bedside at 0853. Bedside ultrasound performed to aid in finding heart tones for twin A. From [id number], FHT reassuring for both twins with re-positioning [...] was present at bedside Joceline Grant MD Behavioral Health Aide PGY-3 12/20/24 10:06 AM Addendum: Note entered [...] present for all above events and care Jcoeline Grant MD Behavioral Health Aide PGY-3 12/20/24 2:25 PM Physician Attestation I saw this patient with the resident and agree with the resident/fellow's findings and plan of careas documented in the note. Nixon findings: I was notified of the decelerations on my way to the [facility]. Senior resident left transport to assess and Dr. Frank on site at labor unit. Returned after [facility] toassess patient who had reassuring assessment x [...] Service (when I saw the patient): 12/20/24 ONNEL GENERALIST MANAGER ONNEL GENERALIST MANAGER ONNEL GENERALIST MANAGER * Shena Eugene RN - 12/20/2024 9:35 AM CST Magnesium infusion loading dose started at 0933. VSS. Lung sounds clear throughout. Apical pulse regular. DTRs WNL. Repeat BP checks initiated. Continuous pulse oximetry monitoring initiated. ONNEL GENERALIST MANAGER * Diana Kaye RD - 12/20/2024 9:18 AM CST CLINICAL NUTRITION SERVICES Reviewed nutrition risk factors due to LOS. No concerns with oral intake per manager of pharmacy Reviewed wt hx. No unintentional wt loss. No indication of pressure injury. Follow Up / Monitoring: RD to sign off at this time. RD may be consulted if needs arise. Diana Kaye MS, RDN, LD TCU/OB/Ortho Clinical Dietitian Available via phone and Vocera Vocera: 4B OB Clinical Dietitian Weekend/Holiday Vocera: Weekend Holiday Clinical Dietitian [Multi Site Groups] ONNEL GENERALIST MANAGER * Augustina Wei CCLS - 12/19/2024 3:41 PM CST 12/19/24 1539 Child Life Location [facility] End Zone Method in-person Individuals Present Caregiver/Adult Family Member;Siblings/Child Family Members Comments (names or other info) Pt's , pt's mother, pt's children Fishtail (3 yo) and Alexis (5 yo) Intervention Developmental Play Developmental Play Comment Pt's family members participated in play throughout the End Zone. Alexisand dad played with LETICIA Jam, bubble hockey, and Minecraft on the PlayStation with volunteer Candy.Fishtail and grandma colored on the Jamboard, did dauber art, and colored in coloring books at the arttables with volunteer Luisa. Time Spent Direct Patient Care 110 Indirect Patient Care 5 Total Time Spent (Calc) 115 ONNEL GENERALIST MANAGER * Emil Ahmadi MD - 12/19/2024 8:43 AM CST [facility] Antepartum Progress Note Subjective Doing ok [...] bpm, moderate variability, accelerations absent, no decelerations [place]: 0 contractions in 10 minutes Impression: reactive, [...] x2 (next 12/20) # GERD - Continue APPLIANCE FIXER omeprazole - Famotidine 10 mg daily - [...] Anticipated in 5+ Days Joceline Grant MD Behavioral Health Aide PGY-3 12/19/24 8:51 AM Physician Attestation I [...] Service (when I saw the patient): 12/19/24 ONNEL GENERALIST MANAGER ONNEL GENERALIST MANAGER ONNEL GENERALIST MANAGER * Deandre Meza CCLS - 12/18/2024 5:18 PM CST 12/18/24 1700 Child Life Location [facility] End Zone Method in-person Individuals Present Caregiver/Adult [...] Care 5 Total Time Spent (Calc) 30 ONNEL GENERALIST MANAGER * Rosalia Lopez CCLS - 12/18/2024 3:59 PM CST 12/18/24 1138 Child Life Location [facility] Interaction Intent Follow Up/Ongoing support Method [...] Care 15 Total Time Spent (Calc) 60 ONNEL GENERALIST MANAGER * Chantell Jolley - 12/18/2024 11:00 AM CST SPIRITUAL HEALTH SERVICES Progress Note [facility] ([facility]) Antepartum Encountered Deandre and spouse Los in [facility] on antepartum unit, offered check in. Deandre and Los seemed to be in good spirits as they prepared food together. They shared that their children Alexis and Carlos will be coming tonight to visit with Deandre's mom and will be here all week, which is a great source of excitement. They reflected on missing them dearly, and appreciate the assistance from [facility] to help prepare for time together in the hospital. Deandre and Los are coping well and are grounding supports to one another. 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 They celebrate reaching 24 weeks GA and continue to take things one day at a time, practicing thankfulness for each new day as a milestone for their babies. Suze is central to meaning making and coping. No new spiritual needs at this time, [facility] to continue following. Chantell Jolley MDiv Associate Culinary Artist Pager [phone] Reachable by Section 101 * [facility] remains available 23/05 for emergent requests/referrals, either by having the switchboard pagethe on-call hospital unit coordinator or by entering an ALEX/STAT consult in [facility] (this will also page the on-call hospital unit coordinator). Routine [facility] consults receive an initial response within 24 hours.* ONNEL GENERALIST MANAGER * Emil Ahmadi MD - 12/18/2024 9:16 AM CST [facility] Antepartum Progress Note Subjective Feeling well [...] bpm, moderate variability, accelerations absent, no decelerations [place]: 0-1 contractions in 10 minutes Impression: reactive, [...] x2 (next 12/20) # GERD - Continue APPLIANCE FIXER omeprazole - Famotidine 10 mg daily - [...] Anticipated in 5+ Days Joceline Grant MD Behavioral Health Aide PGY-3 12/18/24 9:25 AM Physician Attestation I saw this patient with the resident and agree with the resident/fellow's findings and plan of careas documented in the note. Nixon findings: Cavalier-di twins with sFGR twin 2 and abnormal [...] Service (when I saw the patient): 12/18/24 ONNEL GENERALIST MANAGER ONNEL GENERALIST MANAGER * Emil Ahmadi MD - 12/17/2024 9:23 AM CST [facility] Antepartum Progress Note Subjective Patient feeling [...] subtle late appearing deceleration at 0948, 0957 [place]: 0-1 contractions in 10 minutes Impression: reactive, appropriate for gestational age Labs: Rh positive, antibody negative Rubella non-immune Hepatitis B sAg NR, Hepatitis C NR, HIV NR, RPR negative GCT not yet performed GBS positive Last Pap: 07/16/25 NILM Imaging: [facility] Comprehensive US (12/10/24) Fetus 1 Cardiac [...] Antibody Screen Negative Negative SPECIMEN EXPIRATION DATE [id number] Assessment/Plan 29 year old at 24w1d admitted [...] GERD Patient endorses GERD, currently managed on APPLIANCE FIXER omeprazole and small frequent meals with improvement in symptoms - Continue APPLIANCE FIXER omeprazole - Famotidine 10 mg daily - [...] Service (when I saw the patient): 12/17/24 ONNEL GENERALIST MANAGER ONNEL GENERALIST MANAGER * Marly Anna, RN - 12/17/2024 7:03 AM CST Patient stable this morning. VSS, afebrile. Denies vaginal bleeding, LOF, or contractions. PIV flushed. Patient resting comfortably. ONNEL GENERALIST MANAGER * Cameron Leach MD - 12/16/2024 10:56 AM CST [facility] Antepartum Progress Note Subjective Patient doing [...] 0947 to 0952; #2: 1028 to 1032) [place]: 0-1 contractions in 10 minutes Impression: reactive, [...] Los have discussed her risks with the [facility] team in detail at previous outpatient [...] GERD Patient endorses GERD, currently managed on APPLIANCE FIXER omeprazole and small frequent meals. Discussed importance of weight gain to improve outcomes. - Continue APPLIANCE FIXER omeprazole - Famotidine 10 mg daily - [...] 5+ Days Cameron Leach MD, MPH, MS [facility] Maternal Medicine Resident, PGY-3 12/16/2024 11:07 AM To reach the MATERNAL MEDICINE team for this patient, please page [phone] Cosigned by Karin Esteban MD at 12/16/2024 11:58 AM PERSONNEL GENERALIST MANAGER ONNEL GENERALIST MANAGER ONNEL GENERALIST MANAGER Associated attestation - Karin Esteban MD - 12/16/2024 11:58 AM PERSONNEL GENERALIST MANAGER MFM Attending Attestation I saw this patient [...] I spent a total of 45 minutes ikjc-rc-wlbe or coordinating care of Ms. Chávez. Over 50% of my timeon the unit was spent counseling the patient and /or coordinating care regarding diagnosis, diagnostic results, prognosis and risks and benefits of treatment options. Date of service (when I saw the patient): 12/16/2024 Karin Esteban MD Community Development Worker, SHOT PACKER Maternal- Medicine [phone] (Pager) * Narda Vegas RN - 12/16/2024 6:59 AM CST Pt states she is having increase in fluid leaking and feeling her baby move less. Placed on monitor. Monitoring extended due to decreased reactivity and prolonged decel x1. Dr. Zelaya informed. Willcontinue to monitor FHT. ONNEL GENERALIST MANAGER * Hue Zelaya MD - 12/15/2024 9:30 AM CST [facility] Antepartum Progress Note Subjective Patient doing [...] bpm, moderate variability, accelerations present, decelerations absent [place]: 0-1 contractions in 10 minutes Impression: reactive, appropriate for gestational age Labs: Rh positive, antibody negative Rubella non-immune Hepatitis B sAg NR, Hepatitis C NR, HIV NR, RPR negative GCT not yet performed GBS positive Last Pap: 07/16/25 NILM Imaging: [facility] Comprehensive US (12/10/24) Fetus 1 Cardiac [...] shows episodes of reverse flow in a-wave. [facility] OB Limited US (12/17/24) Fetus 1 [...] Los have discussed her risks with the [facility] team in detail at previous outpatient [...] GERD Patient endorses GERD, currently managed on APPLIANCE FIXER omeprazole and small frequent meals. Discussed importance of weight gain to improve outcomes. - Continue APPLIANCE FIXER omeprazole - Famotidine 10 mg daily - [...] Karin Esteban MD at 12/15/2024 11:38 AM PERSONNEL GENERALIST MANAGER ONNEL GENERALIST MANAGER ONNEL GENERALIST MANAGER Associated attestation - Karin Esteban MD - 12/15/2024 11:38 AM PERSONNEL GENERALIST MANAGER MFM Attending Attestation I saw this patient [...] I spent a total of 45 minutes zwge-kq-eyld or coordinating care of Ms. Chávez. Over 50% of my timeon the unit was spent counseling the patient and /or coordinating care regarding diagnosis, diagnostic results, prognosis and risks and benefits of treatment options. Date of service (when I saw the patient): 12/15/2024 Karin Esteban MD Community Development Worker, SHOT PACKER Maternal- Medicine [phone] (Pager) * Guevara Amin MD - 12/14/2024 [...] B: 150 bpm, moderate variability, accelerations present [place]: 0 contractions in 10 minutes Impression: reactive, [...] as course progresses - [facility] US COMPREHENSIVE 12/11/24 Formal report pending: no further evidence of reverse flow in a-wave of DV waveform. [facility] TWIN US COMPREHENSIVE 12/13/24 Monochorionic diamniotic [...] Los have discussed her risks with the [facility] team in detail at previous outpatient [...] #GERD Patient endorses GERD, currently managed on APPLIANCE FIXER omeprazole and small frequent meals. Discussed importance of weight gain to improve outcomes. - Continue APPLIANCE FIXER omeprazole - Famotidine 10 mg daily - [...] Karin Esteban MD at 12/14/2024 9:45 AM PERSONNEL GENERALIST MANAGER ONNEL GENERALIST MANAGER ONNEL GENERALIST MANAGER Associated attestation - Karin Esteban MD - 12/14/2024 9:45 AM PERSONNEL GENERALIST MANAGER MFM Attending Attestation I saw this patient [...] I spent a total of 45 minutes ucpw-hs-mirf or coordinating care of Ms. Chávez . Over 50% of my time on the unit was spent counseling the patient and /or coordinating care regarding diagnosis, diagnostic results, prognosis and risks and benefits of treatment options. Date of service (when I saw the patient): 12/14/2024 Karin Esteban MD Community Development Worker, SHOT PACKER Maternal- Medicine [phone] (Pager) * Rosalia Lopez CCLS - 12/13/2024 3:35 PM CST 12/13/24 1527 Child Life Location [facility] Interaction Intent Follow Up/Ongoing support Method in-person Individuals Present Patient;Caregiver/Adult Family Member Comments (names or other info) Pt's present Intervention Supportive Check in Supportive Check in CCLS ran into pt [facility] in [facility], [facility]. They were impressed with the space and expressed that it would be a fun space to bring the kids if they visit. Deandre inquired about movies available, particularly romantic comedies. CCLS provided three movies from the [facility], brought to pt's room. Deandre expressed appreciation, no other needs at this time. Time Spent Direct Patient Care 10 Indirect Patient Care 30 Total Time Spent (Calc) 40 ONNEL GENERALIST MANAGER * Jenny De Souza MD - 12/13/2024 [...] B: 145 bpm, moderate variability, accelerations present [place]: 0 contractions in 10 minutes Impression: reactive, [...] Antibody Screen Negative Negative SPECIMEN EXPIRATION DATE [id number] Labs: - Rh positive, Antibody negative - Rubella non-immune, Hepatitis B NR, Hepatitis C NR, HIV NR, RPR negative (1st trimester and on admission), GBS Positive - GCT at 24w if at that time - Other labs wnl - Imaging -- Dating: L=7w U/S -- Anatomy: see formal report - Immunizations: Discuss Flu, COVID as course progresses - Pap last 07/16/24, NILM Imaging: [facility] US COMPREHENSIVE 12/11/24 Formal report pending: no further evidence of reverse flow in a-wave of DV waveform. [facility] US COMPREHENSIVE 12/13/24 Monochorionic diamniotic [...] #GERD Patient endorses GERD, currently managed on APPLIANCE FIXER omeprazole and small frequent meals. Discussed importance of weight gain to improve outcomes. - Continue APPLIANCE FIXER omeprazole - Famotidine 10 mg daily - [...] Jesus Harmon MD at 12/13/2024 3:35 PM PERSONNEL GENERALIST MANAGER ONNEL GENERALIST MANAGER ONNEL GENERALIST MANAGER Associated attestation - Jesus Harmon MD - 12/13/2024 3:35 PM PERSONNEL GENERALIST MANAGER Physician Attestation I saw this patient with [...] PM CST 12/12/24 1637 Child Life Location [facility] End Zone Interaction Intent Introduction of Services [...] Care 5 Total Time Spent (Calc) 10 ONNEL GENERALIST MANAGER * Rosalia Lopez CCLS - 12/12/2024 3:57 PM CST 12/12/24 1529 Child Life Location [facility] (antepartum) Interaction Intent Introduction of Services;Initial [...] promote the best understanding. In conversation, this commercial insurance underwriter also noticed Deandre has told the kids she is at the doctor's office so CCLS encouraged Deandre to say she is at the hospital, rather than at the doctor's office as this could create confusion and fear for their own future industrial rehabilitation consultant appointments as they may be afraid of [...] life services are ongoing. Please contact this commercial insurance underwriter with needs as they arise. Time Spent Direct Patient Care 30 Indirect Patient Care 30 Total Time Spent (Calc) 60 ONNEL GENERALIST MANAGER * Jenny De Souza MD - 12/12/2024 [...] B: 140 bpm, moderate variability, accelerations present [place]: 0 contractions in 10 minutes Impression: reactive, [...] Will discuss - Feeding: Will discuss Imaging: [facility] US COMPREHENSIVE 12/11/24 Formal report pending: no further evidence of reverse flow in a-wave of DV waveform. [facility] US COMPREHENSIVE 12/10/24 Fetus 1 [...] #GERD Patient endorses GERD, currently managed on APPLIANCE FIXER omeprazole and small frequent meals. Discussed importance of weight gain to improve outcomes. - Continue APPLIANCE FIXER omeprazole - Famotidine 10 mg daily - [...] Jesus Harmon MD at 12/12/2024 8:31 PM PERSONNEL GENERALIST MANAGER ONNEL GENERALIST MANAGER ONNEL GENERALIST MANAGER Associated attestation - Jesus Harmon MD - 12/12/2024 8:31 PM PERSONNEL GENERALIST MANAGER Physician Attestation I saw this patient with [...] present, intermittent variable decelerations, rare late deceleration [place]: 2-3 contractions in 10 minutes Impression: reactive, [...] Will discuss - Feeding: Will discuss Imaging: [facility] US COMPREHENSIVE 12/11/24 Formal report pending: no further evidence of reverse flow in a-wave of DV waveform. [facility] COMPREHENSIVE 12/10/24 Fetus 1 [...] #GERD Patient endorses GERD, currently managed on APPLIANCE FIXER omeprazole. Discussed importance of weight gain to improve outcomes. - Continue APPLIANCE FIXER omeprazole - Carafate solution prn if symptoms [...] Jesus Harmon MD at 12/11/2024 10:58 AM PERSONNEL GENERALIST MANAGER ONNEL GENERALIST MANAGER ONNEL GENERALIST MANAGER Associated attestation - Jesus Harmon MD - 12/11/2024 10:58 AM PERSONNEL GENERALIST MANAGER Physician Attestation I saw this patient with [...] Women's Health Resident, PGY-3 12/11/2024 12:13 AM ONNEL GENERALIST MANAGER documented in this encounter H&P Notes * Jenny De Souza MD - 12/10/2024 5:01 PM CST Images from the original note were not included. Antepartum History and Physical December 10, 2024 Deandre Chávez [id number] HPI Deandre Chávez is a 29 year [...] cephalic) will go by meaghan Payne for [place]. Twin B will go by meaghan Allen for Kay. Deandre and Los wish to avoid stillbirth [...] stay with her mother, who is a elementary school social worker in [place], while she is admitted in the hospital [...] 100 mg 100 mg Oral BID Tay'Jenny Duenas MD famotidine (PEPCID) tablet 10 mg 10 [...] 150, minimal-moderate variability, accelerations present, no decelerations [place]: rare ctxs Impression: overall reassuring for both [...] Status --------- ------ CBC with platelets and d...[[id number]] Abnormal Final result Please view results for these tests on the individual orders. ABO/Rh type and screen Narrative The following orders were created for panel order ABO/Rh type and screen. Procedure Abnormality Status --------- ------ Adult Type and Screen[[id number]] Final result Please view results for these [...] Antibody Screen Negative Negative SPECIMEN EXPIRATION DATE [id number] Imaging Comprehensive US (12/10/24) Fetus 1 Cardiac [...] #GERD Patient endorses GERD, currently managed on APPLIANCE FIXER omeprazole. - Continue APPLIANCE FIXER omeprazole - Consider GI cocktail if sx [...] Jesus Harmon MD at 12/11/2024 10:36 AM PERSONNEL GENERALIST MANAGER ONNEL GENERALIST MANAGER ONNEL GENERALIST MANAGER Associated attestation - Jesus Harmon MD - 12/11/2024 10:36 AM PERSONNEL GENERALIST MANAGER Physician Attestation -Late entry I saw this [...] this encounter Consult Notes * Jocelyn Subramanian, RESERVATION SALES AGENT - 12/23/2024 10:00 AM CSTAssociated Order(s): SOCIAL WORK IP CONSULT Social Work Initial Consult General Information Assessment completed with: Patient, Deandre & Los Type of visit: NICU Psychosocial Assessment Reason for Consult: mental health concerns Living Environment: Primary caregiver: Deandre is a night time babysitter caregiver services home. Lives with: Deandre and Los reside in a home in [place], [place] with their 2 children Current living [...] System: Supportive Employment/Financial Patient's caregiver works full/parts specialist: Los works full-time Patient works full/parts specialist: No Coping/Stress Deandre reports having a strong [...] Additional Information: Deandre's family comprises of her oLs, her 5-year-old son Alexis and her 3 [...] at this time. They are insured through [facility] and the twins will be added shortly. [...] follow for supportive intervention. CARLOS MANUEL Chow ONNEL GENERALIST MANAGER * Sharyn Cervantes, RN - 12/13/2024 11:16 PM CSTAssociated Order(s): NURSING TO CONSULT FOR VASCULAR ACCESS CARE IP CONSULT Consult received for Vascular access care. See LDA for details. For additional needs place Nursingto Consult for Vascular Access [id number] order in EPIC. ONNEL GENERALIST MANAGER * Chantell Jolley - 12/12/2024 2:07 PM [...] Hinojosa. Deandre shared at length about her Shinto suze, which is foundational to her coping. [...] between churches and do not have a automatic operator of their own. They welcome hospital unit coordinator support. I oriented them to rituals, like rastafarian, namings, etc. and Deandre will consider them. For now, Deandre considers each new day the goal and a gift. She had prayed to get to 22 weeks. We spoke of gentleness with herself while in this liminal space. Plan: Deandre would like to meet with [facility] about her older children Alexis and Carlos visiting in the near future. Referral sent. [facility] to follow closely. Chantell Jolley M.Div. Associate Culinary Artist Pager [phone] Reachable via Section 101 [facility] available 23/05 for emergent requests/referrals, either by paging the on-call hospital unit coordinator or by entering an ALEX/STAT consult in [facility], which will also page the on-call hospital unit coordinator. Assessment Saw pt Deandre Stevan Chávez per [...] in the care of her mom in [place], [place], where they will attend a private Shinto school her mother works at. This is [...] as possible. Meaning, Beliefs, and Spirituality - Shinto suze is foundational to coping for this [...] friends. She is considering rituals, such as rastafarian, and welcomes continued spiritual care. ONNEL GENERALIST MANAGER * Kathie Florence, [facility] - 12/11/2024 11:38 AM CSTAssociated Order(s): CARE [...] to her , Los. They live in [place], [place]. These twins, Carole (Micaela) and Kay (Isidra) are their 3rd/4th babies. Their two children at home are Alexis (5) and Belley (3). Assessment of Support Deandre and Los are surrounded with a strong support system. Deandre's mom will come to care for the kids while Los spends time here with Deandre. Her mom is a teacher at a private Shinto school in [place]. It is an ideal situation where Alexis [...] stay at home parent. Los co-owns a [employer] and [employer] business with his father. He does have employees and works closely with general contractors that can manage things when he is needed here. His busiest season isstarting now but he has some flexibility and he can work remotely. Deandre has [employer] through [facility]. The babies will be added to this [...] admission for supportive interventions. CARLOS MANUEL Bashir DIRECTOR OF REHABILITATION AND WELLNESS Clinical Watch Repair Technician Maternal Child Health Voicemail: [phone] Reachable via Section 101 ONNEL GENERALIST MANAGER * Prabha Ahmadi MD - 12/10/2024 9:00 PM CSTAssociated Order(s): PEDS NEONATOLOGY IP CONSULT Images from the original note were not included. [facility] NICU Antepartum Counseling Consult I was [...] discharge home around theirdue date with fewer shelter complications. I expressed that I cannot predict [...] I left her with the educational website www.[employer]. I discussed the benefits of qozu-yo-sxsb contact and the importance of their presence [...] DO - Medicine Fellow Intensive Care Unit [facility] Cosigned by Maria Isabel Pino MD at 12/12/2024 1:29 PM PERSONNEL GENERALIST MANAGER ONNEL GENERALIST MANAGER ONNEL GENERALIST MANAGER ONNEL GENERALIST MANAGER Associated attestation - Maria Isabel Pino MD - 12/12/2024 1:29 PM PERSONNEL GENERALIST MANAGER Physician Attestation I agree with the information [...] pt. Anticipate discharge home when finished packing. ONNEL GENERALIST MANAGER ONNEL GENERALIST MANAGER * Note - Hedy Culp RNC - [...] up emptying and best program breasts for terminal press operator supply Benefits of logging Reviewed cleaning, sanitizing, labeling, transporting Plan: Check back day 5 Hedy Culp RNC-LUIS CARLOS, IBCLC Courtesy Car Driver Makenna: [employer] [phone] Office: [phone] ONNEL GENERALIST MANAGER * Provider Notification - Nena Ren RN - 12/23/2024 11:12 AM CST Pt scored 14 on depression questionnaire. I ordered SW and she will talk to pt about resources. Question of self harm was zero. Dr. Arlette Lyons G1 text paged and updated. ONNEL GENERALIST MANAGER * Plan of Care - Nicole Pinon [...] Goal: Hemostasis Outcome: Progressing of care ongoing. ONNEL GENERALIST MANAGER * Provider Notification - Nicole Pinon RN - 12/22/2024 9:34 PM PERSONNEL GENERALIST MANAGER 12/22/242133 Provider Notification Provider Name/Title Dr. Leach [...] see pt. Shortly. Will continue to monitor. ONNEL GENERALIST MANAGER * Plan of Care - Nena Ren [...] and provide emotional support as pt needs. ONNEL GENERALIST MANAGER * Provider Notification - Nena Ren, RN [...] unit and updated. Went to see pt. ONNEL GENERALIST MANAGER ONNEL GENERALIST MANAGER * Note - Sherri Morales RNC - 12/22/2024 11:09 AM CST This note was copied from a baby's chart. Reminders (delete this area when done): Maternal sticky note for pump lcnfcc Update Nurse ([facility]) HOT lcplan is the general admit info. Amend as needed. Update IBCLC column Admission Note Baby Information: Infant's first name: A: Julia Reddy B: Madison Miner Infant medical history: 24+4 mono-di ELBW twins Lighting Fixture Installer needed? No goal (if known): Provide breast milk. history: Exclusively breast fed her first two children for 2.5 years each Mother's Information: Name: Deandre Occupation: - Age: 29 Delivery type: [place]: [place]- [place] Pump for home use: Needs rental at [...] twins' bedside. Sherri Morales RNC-LUIS CARLOS, IBCLC Courtesy Car Driver Makenna: [employer] [phone] Office: [phone] ONNEL GENERALIST MANAGER * Plan of Care - Radhika Alarcon [...] in NICU. Continue with plan of care. ONNEL GENERALIST MANAGER * Plan of Care - Nicole Pinon [...] Pinon RN Family/Support System Care: support provided ONNEL GENERALIST MANAGER * Plan of Care - Nena Ren [...] shower. Now trying to sleep but calling commercial insurance underwriter often for little things. Encouraged to take flexeril to help relax but pt anxious about taking new medication as well. C/o pain in morning but pain better controlled this afternoon. Pumping for twins in NICU. Emotional support provided. FOB supportive. Will continue to monitor. ONNEL GENERALIST MANAGER * Provider Notification - Nena Ren RN - 12/21/2024 8:34 AM CST Pt wanted to talk with provider about lovenox. Dr. Newby came into room and informed. Dr. Newbyspoke to pt about medication. Pt offered lovenox again and is undecided at this time. Informed pt to let commercial insurance underwriter know if she wants medication today. Dr. Rene Alba G2 resident text paged and informed. ONNEL GENERALIST MANAGER ONNEL GENERALIST MANAGER * Plan of Care - Denita Farrar [...] Farrar RN on 12/21/2024 at 1:37 AM ONNEL GENERALIST MANAGER * Plan of Care - Nicole Pinon [...] Optimal Pain Control and Function Outcome: Progressing ONNEL GENERALIST MANAGER * Plan of Care - Lizette Rincon [...] of care ongoing, no concerns as ofpresent. ONNEL GENERALIST MANAGER * Plan of Care - Lizette Rincon RN - 12/20/2024 2:53 PM CST Patient arrived to [facility] unit via zoom cart at 1335 ,with belongings, accompanied by spouse/ significant other, with infants in the NICU . Received report from MAGUI Marti and checked bands. Unit and room orientation completd. Call light given; no concerns present at this time. Continue with plan of care. ONNEL GENERALIST MANAGER * Plan of Care - Kaia Spence RN - 12/20/2024 1:00 PM CST Pt stable post CS. VSS, assessment WDL. Surgery EBL 800. Toradol and fentanyl given for pain in PACU. Tap block done in OR. Pumping intiated in PACU. Support person at bedside. OUtput adequate from ashley. Alert and oriented post general anesthesia. Anticipate transfer to [facility]. ONNEL GENERALIST MANAGER * Brief Op Note - Joceline Grant MD - 12/20/2024 12:24 PM CST Brief Operative Note Name: Deandre Chávez : 1995 Date of Surgery: 12/20/2024 Pre-operative Diagnosis: - IUP @ 24w4d - Cavalier-di twin gestation - Selective FGR type III [...] Data is abnormally high Joceline Grant MD Behavioral Health Aide PGY-3 12/20/24 12:27 PM ONNEL GENERALIST MANAGER * Provider Notification - Shena Eugene RN - 12/20/2024 10:40 AM PERSONNEL GENERALIST MANAGER 12/20/24 1040 Provider Notification Provider Name/Title Dr. Grant Method of Notification Electronic Page Request Evaluate in Person Notification Reason Decels Provider notified regarding the audible deceleration at bedside. ONNEL GENERALIST MANAGER ONNEL GENERALIST MANAGER * Provider Notification - Shena Eugene RN - 12/20/2024 10:30 AM PERSONNEL GENERALIST MANAGER 12/20/24 1014 Provider Notification Provider Name/Title Dr. Grant Method of Notification Electronic Page Request Evaluate-Remote Notification Reason Medication Request Patient is feeling anxious and reports as feeling she is going to . VSS. Assessments WNL. Provider requested for the medication for anxiety. Provider ordered Ativan. But, patient does not want to take it and states that she is feeling better now. ONNEL GENERALIST MANAGER * Provider Notification - Shena Eugene RN - 12/20/2024 8:47 AM PERSONNEL GENERALIST MANAGER 12/20/24 0847 Provider Notification Provider Name/Title Dr. Grant Method of Notification Electronic Page Request Evaluate in Person Notification Reason Decels Provider notified regarding the variable deceleration of baby B. ONNEL GENERALIST MANAGER ONNEL GENERALIST MANAGER * Plan of Care - Jacob Juárez [...] RN who assumes care at this time. ONNEL GENERALIST MANAGER * Plan of Care - Ruddy Bruno RN - 12/19/2024 9:48 PM PERSONNEL GENERALIST MANAGER Goal Outcome Evaluation: Pt states is comfortable, [...] while monitoring. at bedside supportive. Cares explained. ONNEL GENERALIST MANAGER * Plan of Care - Xochilt Wright RN - 12/19/2024 2:55 PM CST Data: Maternal status stable. assessment is appropriate for gestational age. Extended monitoring this monitoring.. Action: Continue with plan of care, which is TID and uterine monitoring. Patient encouraged to move extremities while in bed. Response: Patient coping with the plan of with family support.. ONNEL GENERALIST MANAGER * Plan of Care - Jacob Juárez [...] RN who assumes care at this time. ONNEL GENERALIST MANAGER * Plan of Care - Xochilt Wright RN - 12/18/2024 6:23 PM CST Data: Maternal status stable. assessment is normal. Action: Continue with plan of care, which is TID and uterine monitoring. Patient encouraged to move extremities while in bed. Response: Patient coping with the plan of care. W'ill notify the provider with changes.. ONNEL GENERALIST MANAGER * Plan of Care - Sarah Judd RN - 12/18/2024 7:01 AM CST Assumed care at 2300. Able to make needs known, offers no complaints overnight. Per patient requests to be undisturbed overnight. Goal Outcome Evaluation: Progressing, reviewed with patient. ONNEL GENERALIST MANAGER * Plan of Care - Madelyn Feliciano [...] to tour the NICU and discuss with MANAGER INSPECTION baby expectations now that she is 24 weeks. This request is per availability of the NICU. Encouraged to call with needs. ONNEL GENERALIST MANAGER * Plan of Care - Xochilt Wright RN - 12/17/2024 4:08 AM CST Data: Maternal status is stable. assessment is appropriate for gestational age... Action: Continue with plan of care, which is TID and uterine monitoring.. Patient encouraged to move extremities while in bed. Response: Patient coping with the plan of care. W'ill notify the provider with changes.. ONNEL GENERALIST MANAGER * Plan of Care - Aure Ochoa RN - 12/16/2024 6:35 PM CST Pt doing well this afternoon, she has no complaints. VSS. Afebrile. Denies LOF, vaginal bleeding, cramping or contractions. Endorses + FM. Denies vision changes, RUQ pain, epigastric pain, shortness of breath, MCKEON and increased swelling. FHT's AGA x2. [place] quiet. Patient aware to call nursing for any questions or concerns. Pt stable at this time. Continue with current POC. ONNEL GENERALIST MANAGER * Provider Notification - Aure Ochoa RN - 12/16/2024 12:30 PM PERSONNEL GENERALIST MANAGER 12/16/24 1214 Provider Notification Provider Name/Title Dr. [...] time. Pt agreed with plan of care. ONNEL GENERALIST MANAGER * Provider Notification - Alexandrea Rockwell RN - 12/16/2024 10:38 AM PERSONNEL GENERALIST MANAGER 12/16/24 1038 Provider Notification Provider Name/Title Dr. Leach Method of Notification Electronic Page Request Evaluate - Remote Notification Reason Decels FYI baby B had prolonged decel lasting 2 min with sherrie to 70. Per provider continue to monitor andgive 500 ml bolus. ONNEL GENERALIST MANAGER * Plan of Care - Narda Vegas [...] this time. Continue with plan of care. ONNEL GENERALIST MANAGER * Plan of Care - Aure Ochoa RN - 12/15/2024 4:35 PM CST Pt has no complaints. VSS. Afebrile. Denies LOF, vaginal bleeding, cramping or contractions. Endorses + FM. Denies vision changes, RUQ pain, epigastric pain, shortness of breath, MCKEON and increased swelling. FHTs AGA x2. [place] quiet. Patient aware to call nursing for any questions or concerns. Pt stable at this time. Continue with current POC. ONNEL GENERALIST MANAGER * Plan of Care - Jackelin Barr [...] bedside. Report given to David Cotto RN. ONNEL GENERALIST MANAGER * Plan of Care - Pennie Draper [...] during monitoring. Pt will call with needs. ONNEL GENERALIST MANAGER * Plan of Care - Jacob Juárez [...] RN who assumes care at this time. ONNEL GENERALIST MANAGER * Plan of Care - Piper Hahn [...] if there is a change in status. ONNEL GENERALIST MANAGER ONNEL GENERALIST MANAGER * Plan of Care - Brandee Schulte RN - 12/13/2024 2:58 PM CST Patient stable with her mono/di twins, FGR and IAEDF of B. VSS; EFM as charted. Denies pain, contractions, bleeding, loss of fluid. Continue expectant management. ONNEL GENERALIST MANAGER * Plan of Care - Jacob Juárez [...] RN who assumes care at this time. ONNEL GENERALIST MANAGER * Provider Notification - Jacob Juárez RN - 12/12/2024 10:46 PM PERSONNEL GENERALIST MANAGER 12/12/242140 Provider Notification Provider Name/Title Dr. Leach Method of Notification In Department Request Evaluate - Remote In department strip review, provider okay for EFM x2 to be removed. Q4 hour vitals while awake alsoapproved for pt per Dr. Leach. ONNEL GENERALIST MANAGER * Plan of Care - Pennie Cullen RN - 12/12/2024 7:06 PM CST Goal Outcome Evaluation: Patient has no complaints this afternoon. She has been walking in the hallways and had a few visitors. ONNEL GENERALIST MANAGER * Plan of Care - Brandee Schulte RN - 12/12/2024 2:46 PM CST Patient here with FGR and intermittent REDF in twin b. VSS; EFM as charted. Denies pain, contractions, bleeding, loss of fluid. Continue expectant management. ONNEL GENERALIST MANAGER * Provider Notification - Brandee Schulte RN - 12/12/2024 8:20 AM CST 12/12/24 0811 Provider Notification Provider Name/Title Dr Leach Method of Notification Phone Request Evaluate - Remote Notification Reason Other (Comment) Reviewed EFM strip with Dr. Leach prior to removing monitors. ONNEL GENERALIST MANAGER * Plan of Care - Diana Hernandez [...] questions or concerns. Call light in reach. ONNEL GENERALIST MANAGER * Plan of Care - Shena Eugene [...] care transferred to MAGUI Ortiz at 1923. ONNEL GENERALIST MANAGER * Provider Notification - Shena Eugene RN - 12/11/2024 3:46 PM PERSONNEL GENERALIST MANAGER 12/11/24 1539 Provider Notification Provider Name/Title Dr. Siegel Method of Notification Electronic Page Request Evaluate - Remote Notification Reason Other (Comment) (Strip reviewed) Strip reviewed with provider in department. Provider okay with removing the EFM. ONNEL GENERALIST MANAGER * Provider Notification - Shena Eugene RN - 12/11/2024 3:20 PM PERSONNEL GENERALIST MANAGER 12/11/24 1518 Provider Notification Provider Name/Title Christal [...] like this addressed/answered at the next visit/meeting. ONNEL GENERALIST MANAGER * Provider Notification - Shena Eugene RN - 12/11/2024 12:17 PM PERSONNEL GENERALIST MANAGER 12/11/24 1216 Provider Notification Provider Name/Title Dr. Siegel Method of Notification Electronic Page Request Evaluate - Remote Notification Reason Patient Request Patient requested to have a review on the plan regarding her GERD. ONNEL GENERALIST MANAGER * Provider Notification - Shena Eugene RN - 12/11/2024 9:22 AM PERSONNEL GENERALIST MANAGER 12/11/24 0853 Provider Notification Provider Name/Title Dr. Christal Sparks Method of Notification At Bedside Request Evaluate in Person Notification Reason Status Update Providers at bedside discussing the plan of care with Deandre and her spouse Los. Plan is to do TID monitoring for an hour, US x3 weekly and second dose of betamethasone tonight. ONNEL GENERALIST MANAGER * Provider Notification - Shena Eugene RN - 12/11/2024 8:52 AM PERSONNEL GENERALIST MANAGER 12/11/24 0849 Provider Notification Provider Name/Title Dr. Waterman Method of Notification Electronic Page Request Evaluate-Remote Notification Reason Medication Request Patient would like to continue with her home regimen omeprazole 20 mg for GERD and avoid taking more medications. She refused stool softner, TUMS, and pantoprazole. ONNEL GENERALIST MANAGER * Plan of Care - Gilberto Welch RN - 12/11/2024 7:24 AM CST VSS. Pt denies bleeding, LOF, cramping or s/sx of pre-e. EFM for Twin A & Twin B appropriate for gestational age, see flow sheets for more. Still on continuous monitoring at this time. 2nd betamethasone to be given today. Continue observing for any s/sx of maternal or compromise. ONNEL GENERALIST MANAGER * Provider Notification - Gilberto Welch RN [...] to continue observing. Pt agreeable with plan. ONNEL GENERALIST MANAGER * Plan of Care - Beverly Lara [...] of education and verbalized agreement with plan. ONNEL GENERALIST MANAGER ONNEL GENERALIST MANAGER documented in this encounter Plan of Treatment Pending Results Name Type Priority Associated Diagnoses Date /Time Surgical Pathology Exam Pathology and Cytology Routine 12/20/2024 3:49 PM PERSONNEL GENERALIST MANAGER EKG 12-lead, complete EKG STAT 12/22/2024 9:49 PM PERSONNEL GENERALIST MANAGER Scheduled Orders Name Type Priority Associated Diagnoses [...] Comments PLATELET COUNT Routine 12/23/2024 8:01 AM PERSONNEL GENERALIST MANAGER EXTRA TUBE Routine 12/22/2024 10:33 PM PERSONNEL GENERALIST MANAGER EXTRA BLUE TOP TUBE Routine 12/22/2024 1 0:33 PM PERSONNEL GENERALIST MANAGER TROPONIN T, HIGH SENSITIVITY STAT 12/22/2024 10:33 PM PERSONNEL GENERALIST MANAGER CBC WITH PLATELETS STAT 12/22/2024 10 :33 PM PERSONNEL GENERALIST MANAGER EKG 12-LEAD, TRACING ONLY STAT 12/22/2024 9:49 PM PERSONNEL GENERALIST MANAGER TYPE AND SCREEN, ADULT Timed 9:07 AM PERSONNEL GENERALIST MANAGER ABO/RH TYPE AND SCREEN Timed 9:07 AM PERSONNEL GENERALIST MANAGER CBC WITH PLATELETS Timed 12/22/2024 9: 07 AM PERSONNEL GENERALIST MANAGER HEMOGLOBIN Routine 12/21/2024 8:23 AM PERSONNEL GENERALIST MANAGER EXTRA TUBE Routine 12/20/2024 3:53 PM PERSONNEL GENERALIST MANAGER EXTRA PURPLE TOP TUBE Routine 12/20/2024 3:53 PM PERSONNEL GENERALIST MANAGER CREATININE Routine 12/20/2024 3:53 PM PERSONNEL GENERALIST MANAGER XR ABDOMEN PORT 1 VIEW Routine 11:40 AM PERSONNEL GENERALIST MANAGER POC US GUIDANCE NEEDLE PLACEMENT Routine 12/20/2024 11:16 AM PERSONNEL GENERALIST MANAGER SECTION 12/20/2024 10:4 8 AM PERSONNEL GENERALIST MANAGER POC US GUIDANCE NEEDLE PLACEMENT Routine 12/20/2024 9:33 AM PERSONNEL GENERALIST MANAGER TYPE AND SCREEN, ADULT Timed 8:41 AM PERSONNEL GENERALIST MANAGER ABO/RH TYPE AND SCREEN Timed 8:41 AM PERSONNEL GENERALIST MANAGER CBC WITH PLATELETS Timed 12/19/2024 8: 41 AM PERSONNEL GENERALIST MANAGER MFM TWINS US COMPREHENSIVE F/U Routine 12/19/2024 8:22 AM PERSONNEL GENERALIST MANAGER MFM TWINS US COMPREHENSIVE F/U Routine 12/17/2024 8:33 AM PERSONNEL GENERALIST MANAGER TYPE AND SCREEN, ADULT Timed 11:00 AM PERSONNEL GENERALIST MANAGER ABO/RH TYPE AND SCREEN Timed 11:00 AM PERSONNEL GENERALIST MANAGER CBC WITH PLATELETS Timed 12/16/2024 11 :00 AM PERSONNEL GENERALIST MANAGER [facility] US OB LIMITED SINGLE/MULTIPLE Routine 12/15/2024 8:15 AM PERSONNEL GENERALIST MANAGER [facility] TWINS US COMPREHENSIVE F/U Routine 12/13/2024 8:06 AM PERSONNEL GENERALIST MANAGER TYPE AND SCREEN, ADULT Timed 6:44 AM PERSONNEL GENERALIST MANAGER ABO/RH TYPE AND SCREEN Timed 6:44 AM PERSONNEL GENERALIST MANAGER CBC WITH PLATELETS Timed 12/13/2024 6: 44 AM PERSONNEL GENERALIST MANAGER [facility] TWINS US COMPREHENSIVE F/U Routine 12/11/2024 8:23 AM PERSONNEL GENERALIST MANAGER GROUP B STREP PCR Routine 12/10/2024 8: 49 PM PERSONNEL GENERALIST MANAGER CBC WITH PLATELETS AND DIFFERENTIAL STAT 12/10/2024 5:21 PM PERSONNEL GENERALIST MANAGER TYPE AND SCREEN, ADULT STAT 5:21 PM PERSONNEL GENERALIST MANAGER TREPONEMA ABS W REFLEX TO RPR AND TITER STAT 12/10/2024 5:21 PM PERSONNEL GENERALIST MANAGER CBC WITH PLATELETS & DIFFERENTIAL STAT 12/10/2024 5:21 PM PERSONNEL GENERALIST MANAGER IRON AND IRON BINDING CAPACITY Add-On 12/10/2024 5:21 PM PERSONNEL GENERALIST MANAGER FERRITIN Add-On 12/10/2024 5:21 PM PERSONNEL GENERALIST MANAGER COMPREHENSIVE METABOLIC PANEL STAT 12/10/2024 5:21 PM PERSONNEL GENERALIST MANAGER ABO/RH TYPE AND SCREEN STAT 5:21 PM PERSONNEL GENERALIST MANAGER documented in this encounter Results * Platelet count (12/23/2024 8:01 AM PERSONNEL GENERALIST MANAGER) Platelet Count 219 150 - 450 10e3/uL 12/23/2024 8:16 AM PERSONNEL GENERALIST MANAGER UR LABORATORY Blood STRUCTURE OF LEFT UPPER LIMB / Unknown Venipuncture / Unknown 12/23/2024 8:01 AM PERSONNEL GENERALIST MANAGER 12/23/2024 8:13 AM PERSONNEL GENERALIST MANAGER us Oneil Lyons MD LAB - BLOOD ORDERABLES Final R esult UR LABORATORY [facility] [address] [place] [address], Room [place] [phone] * Extra Blue Top Tube (12/22/2024 10:33 PM PERSONNEL GENERALIST MANAGER) Pathologist [facility] Hold Specimen JIC 12/22/2024 11:46 PM PERSONNEL GENERALIST MANAGER UR LABORATORY Blood STRUCTURE OF RIGHT UPPER LIMB / Unknown Venipuncture / Unknown 12/22/2024 10:33 PM PERSONNEL GENERALIST MANAGER 12/22/2024 10:42 PM PERSONNEL GENERALIST MANAGER us Emil Ahmadi MD LAB - BLOOD ORDERABLES Fin al Result UR LABORATORY [facility] [address] [place] [address], Room [address] * (ABNORMAL) CBC with platelets (12/22/2024 10:33 PM PERSONNEL GENERALIST MANAGER) WBC Count 3.6(L) 4.0 - 11.0 10e3/uL 12/22/2024 10:45 PM PERSONNEL GENERALIST MANAGER UR LABORATORY RBC Count 3.78(L) 3.80 - 5.20 10e6/uL 12/22/2024 10:45 PM PERSONNEL GENERALIST MANAGER UR LABORATORY Hemoglobin 9.4(L) 11.7 - 15.7 g/dL 12/22/2024 10:45 PM PERSONNEL GENERALIST MANAGER UR LABORATORY Hematocrit 30.5(L) 35.0 - 47.0 % 12/22/2024 10:45 PM PERSONNEL GENERALIST MANAGER UR LABORATORY MCV 81 78 - 100 fL 12/22/2024 10:45 PM PERSONNEL GENERALIST MANAGER UR LABORATORY MCH 24.9(L) 26.5 - 33.0 pg 12/22/2024 10:45 PM PERSONNEL GENERALIST MANAGER UR LABORATORY MCHC 30.8(L) 31.5 - 36.5 g/dL 12/22/2024 10:45 PM PERSONNEL GENERALIST MANAGER UR LABORATORY RDW 18.0(H) 10.0 - 15.0 % 12/22/2024 10:45 PM PERSONNEL GENERALIST MANAGER UR LABORATORY Platelet Count 219 150 - 450 10e3/uL 12/22/2024 10:45 PM PERSONNEL GENERALIST MANAGER UR LABORATORY Blood STRUCTURE OF RIGHT UPPER LIMB / Unknown Venipuncture / Unknown 12/22/2024 10:33 PM PERSONNEL GENERALIST MANAGER 12/22/2024 10:39 PM PERSONNEL GENERALIST MANAGER us Cameron Leach MD LAB - BLOOD ORDERABLES Final Res ult UR LABORATORY [facility] [address] [facility] [address], [address] [place] [address] * Troponin T, High Sensitivity (12/22/2024 10:33 PM PERSONNEL GENERALIST MANAGER) Troponin T, High Sensitivity <6 <=14 ng/L 12/22/2024 11:01 PM PERSONNEL GENERALIST MANAGER UR LABORATORY Comment: Either a High Sensitivity [...] Unknown Venipuncture / Unknown 12/22/2024 10:33 PM PERSONNEL GENERALIST MANAGER 12/22/2024 10:39 PM PERSONNEL GENERALIST MANAGER us Cameron Leach MD LAB - BLOOD ORDERABLES Final Res ult UR LABORATORY [facility] Acute [facility], [address] * Adult Type and Screen (12/22/2024 9:07 AM PERSONNEL GENERALIST MANAGER) ABO/RH(D) O POS 12/22/2024 6:00 AM PERSONNEL GENERALIST MANAGER UR BLOOD BANK Antibody Screen Negative Negative 12/22/2024 6:00 AM PERSONNEL GENERALIST MANAGER UR BLOOD BANK SPECIMEN EXPIRATION DATE [id number] 12/22/2024 6:00 AM PERSONNEL GENERALIST MANAGER UR BLOOD BANK Blood STRUCTURE OF RIGHT UPPER LIMB / Unknown Venipuncture / Unknown 12/22/2024 9:07 AM PERSONNEL GENERALIST MANAGER 12/22/2024 9:14 AM PERSONNEL GENERALIST MANAGER us Cameron Leach MD LAB - BLOOD BANK TEST ORDER Yenny l Result Performing Organization Address City/[facility]/ZIP Co de Phone Number UR BLOOD BANK [facility] Blood Components Lab [address] [place] [address], Room [address] * (ABNORMAL) CBC with platelets (12/22/2024 9:07 AM PERSONNEL GENERALIST MANAGER) WBC Count 4.7 4.0 - 11.0 10e3/uL 12/22/2024 9:19 AM PERSONNEL GENERALIST MANAGER UR LABORATORY RBC Count 3.92 3.80 - 5.20 10e6/uL 12/22/2024 9:19 AM PERSONNEL GENERALIST MANAGER UR LABORATORY Hemoglobin 10.0(L) 11.7 - 15.7 g/dL 12/22/2024 9:19 AM PERSONNEL GENERALIST MANAGER UR LABORATORY Hematocrit 31.8(L) 35.0 - 47.0 % 12/22/2024 9:19 AM PERSONNEL GENERALIST MANAGER UR LABORATORY MCV 81 78 - 100 fL 12/22/2024 9:19 AM PERSONNEL GENERALIST MANAGER UR LABORATORY MCH 25.5(L) 26.5 - 33.0 pg 12/22/2024 9:19 AM PERSONNEL GENERALIST MANAGER UR LABORATORY MCHC 31.4(L) 31.5 - 36.5 g/dL 12/22/2024 9:19 AM PERSONNEL GENERALIST MANAGER UR LABORATORY RDW 18.1(H) 10.0 - 15.0 % 12/22/2024 9:19 AM PERSONNEL GENERALIST MANAGER UR LABORATORY Platelet Count 218 150 - 450 10e3/uL 12/22/2024 9:19 AM PERSONNEL GENERALIST MANAGER UR LABORATORY Blood STRUCTURE OF RIGHT UPPER LIMB / Unknown Venipuncture / Unknown 12/22/2024 9:07 AM PERSONNEL GENERALIST MANAGER 12/22/2024 9:14 AM PERSONNEL GENERALIST MANAGER us Cameron Leach MD LAB - BLOOD ORDERABLES Final Res ult Performing Organization Address City[facility]/ZIP Co de Phone Number UR LABORATORY [facility] [address] [place] [address], Room [address] * (ABNORMAL) Hemoglobin (12/21/2024 8:23 AM PERSONNEL GENERALIST MANAGER) Hemoglobin 9.3(L) 11.7 - 15.7 g/dL 12/21/2024 8:41 AM PERSONNEL GENERALIST MANAGER UR LABORATORY Blood BLOOD SPECIMEN / Unknown Venipuncture / Unknown 12/21/2024 8:23 AM PERSONNEL GENERALIST MANAGER 12/21/2024 8:37 AM PERSONNEL GENERALIST MANAGER us Oneil Lyons MD LAB - BLOOD ORDERABLES Final R esult UR LABORATORY [facility] [address] [place] [address], Room [address] * Extra Purple Top Tube (12/20/2024 3:53 PM PERSONNEL GENERALIST MANAGER) Hold Specimen JIC 12/20/2024 5:03 PM PERSONNEL GENERALIST MANAGER UR LABORATORY Blood STRUCTURE OF RIGHT UPPER LIMB / Unknown Venipuncture / Unknown 12/20/2024 3:53 PM PERSONNEL GENERALIST MANAGER 12/20/2024 3:58 PM PERSONNEL GENERALIST MANAGER Emil Ahmadi MD LAB - BLOOD ORDERABLES Fin al Result UR LABORATORY [facility] [address] [place] [address], Room [place] [phone] * Creatinine (12/20/2024 3:53 PM PERSONNEL GENERALIST MANAGER) Creatinine 0.53 0.51 - 0.95 mg/dL 12/20/2024 4:25 PM PERSONNEL GENERALIST MANAGER UR LABORATORY GFR Estimate >90 >60 mL/min/1.7 3m2 12/20/2024 4:25 PM PERSONNEL GENERALIST MANAGER UR LABORATORY Comment:eGFR calculated us2020 CKD-EPI equation. Blood STRUCTURE OF RIGHT UPPER LIMB / Unknown Venipuncture / Unknown 12/20/2024 3:53 PM PERSONNEL GENERALIST MANAGER 12/20/2024 3:58 PM PERSONNEL GENERALIST MANAGER Oneil Lyons MD LAB - BLOOD ORDERABLES Final R esult UR LABORATORY [facility] [address] [place] [address], Room [address] [phone] * XR Abdomen Port 1 View (12/20/2024 11:40 AM PERSONNEL GENERALIST MANAGER) Anatomical Region Laterality Modality Abdomen/Pelvis Computed Radiogr aphy Impressions 12/20/2024 11:45 AM PERSONNEL GENERALIST MANAGER Impression: Curvilinear radiopacities overlying the right upper radiograph overlying the right inferior ribs, indeterminate, question external to the patient. Consider correlation. Otherwise no radiopaque instrument or needle visualized overlying the pelvis in field of view of the radiograph Finding of indeterminate radiopacity communicated to operating room personnel by Zachary at 11:30 AM 12/20/2024 MARY SHARMA MD Narrative 12/20/2024 11:45 AM PERSONNEL GENERALIST MANAGER Exam: XR ABDOMEN PORT 1 VIEW, 12/20/2024 [...] 11:30 AM 12/20/2024 MARY SHARMA MD Result [facility] Pennie Frank MD IMG DIAGNOSTIC IMAGING ORDERA BLES Final Result * POC US Guidance Needle Placement (12/20/2024 11:16 AM PERSONNEL GENERALIST MANAGER) Anatomical Region Laterality Modality Other Impressions 12/20/2024 11:16 AM PERSONNEL GENERALIST MANAGER Transversus abdominus plane block, bilateral Result [facility] Eneida Sanon MD IM POCUS Final Result * POC US Guidance Needle Placement (12/20/2024 9:33 AM PERSONNEL GENERALIST MANAGER) Anatomical Region Laterality Modality Other Impressions 12/20/2024 9:33 AM PERSONNEL GENERALIST MANAGER Bilateral transverus abdominal plane block. Narrative 12/20/2024 9:33 AM PERSONNEL GENERALIST MANAGER Bilateral transverus abdominal plane block. Result [facility] Evangelina eHlm MD [facility] POCUS Final Result * Adult Type and Screen (12/19/2024 8:41 AM PERSONNEL GENERALIST MANAGER) ABO/RH(D) O POS 12/19/2024 6:00 AM PERSONNEL GENERALIST MANAGER UR BLOOD BANK Antibody Screen Negative Negative 12/19/2024 6:00 AM PERSONNEL GENERALIST MANAGER UR BLOOD BANK SPECIMEN EXPIRATION DATE [id number] 12/19/2024 6:00 AM PERSONNEL GENERALIST MANAGER UR BLOOD BANK Blood BLOOD SPECIMEN / Unknown Venipuncture / Unknown 12/19/2024 8:41 AM PERSONNEL GENERALIST MANAGER 12/19/2024 8:46 AM PERSONNEL GENERALIST MANAGER Cameron Leach MD LAB - BLOOD BANK TEST ORDER Yenny l Result UR BLOOD BANK [facility] [place] [facility]onents [facility] [address] [facility], [address] [place] [address] * (ABNORMAL) CBC with platelets (12/19/2024 8:41 AM PERSONNEL GENERALIST MANAGER) Pathologist [facility] WBC Count 5.7 4.0 - 11.0 10e3/uL 12/19/2024 8:49 AM PERSONNEL GENERALIST MANAGER UR LABORATORY RBC Count 4.03 3.80 - 5.20 10e6/uL 12/19/2024 8:49 AM PERSONNEL GENERALIST MANAGER UR LABORATORY Hemoglobin 9.8(L) 11.7 - 15.7 g/dL 12/19/2024 8:49 AM PERSONNEL GENERALIST MANAGER UR LABORATORY Hematocrit 32.3(L) 35.0 - 47.0 % 12/19/2024 8:49 AM PERSONNEL GENERALIST MANAGER UR LABORATORY MCV 80 78 - 100 fL 12/19/2024 8:49 AM PERSONNEL GENERALIST MANAGER UR LABORATORY MCH 24.3(L) 26.5 - 33.0 pg 12/19/2024 8:49 AM PERSONNEL GENERALIST MANAGER UR LABORATORY MCHC 30.3(L) 31.5 - 36.5 g/dL 12/19/2024 8:49 AM PERSONNEL GENERALIST MANAGER UR LABORATORY RDW 16.8(H) 10.0 - 15.0 % 12/19/2024 8:49 AM PERSONNEL GENERALIST MANAGER UR LABORATORY Platelet Count 215 150 - 450 10e3/uL 12/19/2024 8:49 AM PERSONNEL GENERALIST MANAGER UR LABORATORY Blood BLOOD SPECIMEN / Unknown Venipuncture / Unknown 12/19/2024 8:41 AM PERSONNEL GENERALIST MANAGER 12/19/2024 8:47 AM PERSONNEL GENERALIST MANAGER Cameron Leach MD LAB - BLOOD ORDERABLES Final Res ult UR LABORATORY [facility] [address], [address] [place] [address], [facility] * MFM Twins US Comprehensive F/U (12/19/2024 8:22 AM PERSONNEL GENERALIST MANAGER) Anatomical Region Laterality Modality Ultrasound 12/19/2024 7:12 AM PERSONNEL GENERALIST MANAGER Impressions 12/19/2024 8:29 AM PERSONNEL GENERALIST MANAGER IMPRESSION ----- Monochorionic diamniotic twin gestation with [...] of twin 2. Narrative 12/19/2024 8:29 AM PERSONNEL GENERALIST MANAGER Surveillance US ----- Pat. Name: DEANDRE CHÁVEZ Study Date: 12/19/2024 7:12am Pat. NO: [id number] Referring MD: PAMELA CUELLAR Site: Ticket Dispenser Changer: Piper Huynh RDMS : 1995 Age: 29 ----- INDICATION ----- INPATIENT Abnormal UA Doppler and Ductus Venosus waveforms Monochorionic-Diamniotic Twin Gestation Selective Growth Restriction (FGR) fetus 2 Circumvallate placenta METHOD ----- [facility] ANTEPARTUM inpatient exam. Transabdominal ultrasound examination. View: [...] CHÁVEZ Study Date: 12/19/2024 7:12am Pat. NO: [id number] Referring MD: PAMELA CUELLAR Site: Ticket Dispenser Changer: Piper Huynh RDMS : 1995 Age: 29 ----- INDICATION ----- INPATIENT Abnormal UA Doppler and Ductus Venosus waveforms Monochorionic-Diamniotic Twin Gestation Selective Growth Restriction (FGR) fetus 2 Circumvallate placenta METHOD ----- [facility] ANTEPARTUM inpatient exam. Transabdominal ultrasound examination.View: Sufficient. [...] twin 2. us Joceline Grant MD Zak [facility] US ORDERABLES Edited Res ult - Final * [facility] Twins US Comprehensive F/U (12/17/2024 8:33 AM PERSONNEL GENERALIST MANAGER) Anatomical Region Laterality Modality Ultrasound 12/17/2024 7:09 AM PERSONNEL GENERALIST MANAGER Impressions 12/17/2024 9:32 AM PERSONNEL GENERALIST MANAGER IMPRESSION ----- Monochorionic diamniotic twin gestation [...] in some areas. Narrative 12/17/2024 9:32 AM PERSONNEL GENERALIST MANAGER Comp Follow Up ----- Pat. Name: DEANDRE CHÁVEZ Study Date: 12/17/2024 7:09am Pat. NO: [id number] Referring MD: PAMELA CUELLAR Site: Ticket Dispenser Changer: Claudia Arauz RDMS : 1995 Age: 29 ----- INDICATION ----- INPATIENT Abnormal UA Doppler and Ductus Venosus waveforms Monochorionic-Diamniotic Twin Gestation Selective Growth Restriction (FGR) fetus 2 Circumvallate placenta METHOD ----- [facility] ANTEPARTUM inpatient exam. Transabdominal ultrasound examination. View: [...] 1 lb 8 oz EFW by Hadlock ([id number]) EFW discordance 33.0 % Head / Face / Neck Biometry: Set Up Person 7.8 mm CM 2.9 mm Fetus 2: [...] 1 lb 0 oz EFW by Hadlock ([id number]) EFW discordance 33.0 % Head / Face / Neck Biometry: Set Up Person 7.9 mm CM 2.9 mm Extremities / [...] Heart / Thorax 4-chamber view. RVOT view. 2-rminbd-wqbrauw view. sex: female. Fetus 2: ANATOMY ----- The following structures appear normal: Head / Neck Cranium. Head size. Head shape. Lateral ventricles. Midline falx. Cavum septi pellucidi. Cerebellum. Cisterna magna. Face Lips. Profile. Nose. Heart / Thorax 4-chamber view. RVOT view. LVOT view. 2-arpcus-ygoscap view. Diaphragm. Abdomen Stomach. Kidneys. Bladder. Spine [...] CHÁVEZ Study Date: 12/17/2024 7:09am Pat. NO: [id number] Referring MD: PAMELA CUELLAR Site: Ticket Dispenser Changer: Claudia Arauz RDMS : 1995 Age: 29 ----- INDICATION ----- INPATIENT Abnormal UA Doppler and Ductus Venosus waveforms Monochorionic-Diamniotic Twin Gestation Selective Growth Restriction (FGR) fetus 2 Circumvallate placenta METHOD ----- [facility] ANTEPARTUM inpatient exam. Transabdominal ultrasound examination.View: Sufficient [...] EFW (lb,oz) 1 lb 8oz EFW by Hadlock([id number]) EFW discordance 33.0% Head / Face / Neck Biometry: Set Up Person 7.8mm CM 2.9mm Fetus 2: BIOMETRY ----- BPD 56.3mm 23w 1dHadlock OFD 74.5mm 22w 6dNicolaides HC 208.0mm 22w 6dHadlock Cerebellum tr 25.2mm 23w 1dNicolaides AC 172.0mm 22w 1d 3%Hadlock Femur 35.8mm 21w 2dHadlock Humerus 31.7mm 20w 4dJeanty Weight Calculation: EFW 464g <1%Hadlock EFW (lb,oz) 1 lb 0oz EFW by Hadlock([id number]) EFW discordance 33.0% Head / Face / Neck Biometry: Set Up Person 7.9mm CM 2.9mm Extremities / Bony Struc [...] previously: Heart / Thorax 4-chamber view. RVOT view.1-qogzox-bpezcfd view. sex: female. Fetus 2: ANATOMY ----- The following structures appear normal: Head / Neck Cranium. Head size. Head shape.Lateral ventricles. Midline falx. Cavum septi pellucidi. Cerebellum.Cisterna magna. Face Lips. Profile. Nose. Heart / Thorax 4-chamber view. RVOT view. LVOT view.5-darcpz-ddhhnxl view. Diaphragm. Abdomen Stomach. Kidneys. Bladder. Spine [...] circumvallate in some areas. Guevara Amin MD [facility] US ORDERABLES Edited Res ult - Final * Adult Type and Screen (12/16/2024 11:00 AM PERSONNEL GENERALIST MANAGER) ABO/RH(D) O POS 12/16/2024 6:00 AM PERSONNEL GENERALIST MANAGER UR BLOOD BANK Antibody Screen Negative Negative 12/16/2024 6:00 AM PERSONNEL GENERALIST MANAGER UR BLOOD BANK SPECIMEN EXPIRATION DATE [id number] 12/16/2024 6:00 AM PERSONNEL GENERALIST MANAGER UR BLOOD BANK Blood BLOOD SPECIMEN / Unknown Venipuncture / Unknown 12/16/2024 11:00 AM PERSONNEL GENERALIST MANAGER 12/16/2024 11:04 AM PERSONNEL GENERALIST MANAGER Cameron Leach MD LAB - BLOOD BANK TEST ORDER Yenny l Result UR BLOOD BANK [facility] [place] [facility] Components Lab [address] [facility] [address], [address] [phone] * (ABNORMAL) CBC with platelets (12/16/2024 11:00 AM PERSONNEL GENERALIST MANAGER) WBC Count 6.3 4.0 - 11.0 10e3/uL 12/16/2024 11:09 AM PERSONNEL GENERALIST MANAGER UR LABORATORY RBC Count 3.92 3.80 - 5.20 10e6/uL 12/16/2024 11:09 AM PERSONNEL GENERALIST MANAGER UR LABORATORY Hemoglobin 9.4(L) 11.7 - 15.7 g/dL 12/16/2024 11:09 AM PERSONNEL GENERALIST MANAGER UR LABORATORY Hematocrit 30.7(L) 35.0 - 47.0 % 12/16/2024 11:09 AM PERSONNEL GENERALIST MANAGER UR LABORATORY MCV 78 78 - 100 fL 12/16/2024 11:09 AM PERSONNEL GENERALIST MANAGER UR LABORATORY MCH 24.0(L) 26.5 - 33.0 pg 12/16/2024 11:09 AM PERSONNEL GENERALIST MANAGER UR LABORATORY MCHC 30.6(L) 31.5 - 36.5 g/dL 12/16/2024 11:09 AM PERSONNEL GENERALIST MANAGER UR LABORATORY RDW 15.1(H) 10.0 - 15.0 % 12/16/2024 11:09 AM PERSONNEL GENERALIST MANAGER UR LABORATORY Platelet Count 207 150 - 450 10e3/uL 12/16/2024 11:09 AM PERSONNEL GENERALIST MANAGER UR LABORATORY Blood BLOOD SPECIMEN / Unknown Venipuncture / Unknown 12/16/2024 11:00 AM PERSONNEL GENERALIST MANAGER 12/16/2024 11:05 AM PERSONNEL GENERALIST MANAGER us Cameron Leach MD LAB - BLOOD ORDERABLES Final Res ult UR LABORATORY [facility] [address], [address] [place] [address], [facility] * Maternal US OB Limited Single/Multiple (12/15/2024 8:15 AM PERSONNEL GENERALIST MANAGER) Anatomical Region Laterality Modality Ultrasound 12/15/2024 7:38 AM PERSONNEL GENERALIST MANAGER Impressions 12/15/2024 10:58 AM PERSONNEL GENERALIST MANAGER IMPRESSION ----- Monochorionic diamniotic twin gestation with [...] anemia polycythemia syndrome. Narrative 12/15/2024 10:58 AM PERSONNEL GENERALIST MANAGER Surveillance ----- Pat. Name: DEANDRE CHÁVEZ Study Date: 12/15/2024 7:38am Pat. NO: [id number] Referring MD: PAMELA CUELLAR Site: Ticket Dispenser Changer: Chantell Jarquin RDMS : 1995 Age: 29 ----- INDICATION ----- INPATIENT Abnormal UA Doppler and Ductus Venosus waveforms Monochorionic-Diamniotic Twin Gestation Selective Growth Restriction (FGR) fetus 2 Circumvallate placenta METHOD ----- [facility] ANTEPARTUM inpatient exam, Transabdominal ultrasound examination. View: [...] CHÁVEZ Study Date: 12/15/2024 7:38am Pat. NO: [id number] Referring MD: PAMELA CUELLAR Site: Ticket Dispenser Changer: Chantell Jarquin RDMS : 1995 Age: 29 ----- INDICATION ----- INPATIENT Abnormal UA Doppler and Ductus Venosus waveforms Monochorionic-Diamniotic Twin Gestation Selective Growth Restriction (FGR) fetus 2 Circumvallate placenta METHOD ----- [facility] ANTEPARTUM inpatient exam, Transabdominal ultrasound examination.View: Sufficient. [...] twin anemia polycythemia syndrome. us Guevara RAE [facility] US ORDERABLES Edited Res ult - Final * [facility] Twins US Comprehensive F/U (12/13/2024 8:06 AM PERSONNEL GENERALIST MANAGER) Anatomical Region Laterality Modality Ultrasound 12/13/2024 7:10 AM PERSONNEL GENERALIST MANAGER Impressions 12/13/2024 9:19 AM PERSONNEL GENERALIST MANAGER IMPRESSION ----- Monochorionic diamniotic twin gestation [...] anemia polycythemia syndrome. Narrative 12/13/2024 9:19 AM [facility] Surveillance US ----- Pat. Name: DEANDRE CHÁVEZ Study Date: 12/13/2024 7:10am Pat. NO: [id number] Referring MD: PAMELA CUELLAR Site: Ticket Dispenser Changer: Claudia Arauz RDMS : 1995 Age: 29 ----- INDICATION ----- INPATIENT Abnormal UA Doppler and Ductus Venosus waveforms Monochorionic-Diamniotic Twin Gestation Selective Growth Restriction (FGR) fetus 2 Circumvallate placenta METHOD ----- [facility] ANTEPARTUM inpatient exam. Transabdominal ultrasound examination. View: [...] CHÁVEZ Study Date: 12/13/2024 7:10am Pat. NO: [id number] Referring MD: PAMELA CUELLAR Site: Ticket Dispenser Changer: Claudia Arauz RDMS : 1995 Age: 29 ----- INDICATION ----- INPATIENT Abnormal UA Doppler and Ductus Venosus waveforms Monochorionic-Diamniotic Twin Gestation Selective Growth Restriction (FGR) fetus 2 Circumvallate placenta METHOD ----- [facility] ANTEPARTUM inpatient exam. Transabdominal ultrasound examination.View: Sufficient. [...] twin anemia polycythemia syndrome. Guevara Amin MD [facility] US ORDERABLES Edited Res ult - Final * Adult Type and Screen (12/13/2024 6:44 AM PERSONNEL GENERALIST MANAGER) ABO/RH(D) O POS 12/13/2024 6:00 AM PERSONNEL GENERALIST MANAGER UR BLOOD BANK Antibody Screen Negative Negative 12/13/2024 6:00 AM PERSONNEL GENERALIST MANAGER UR BLOOD BANK SPECIMEN EXPIRATION DATE [id number] 12/13/2024 6:00 AM PERSONNEL GENERALIST MANAGER UR BLOOD BANK Blood STRUCTURE OF RIGHT UPPER LIMB / Unknown Venipuncture / Unknown 12/13/2024 6:44 AM PERSONNEL GENERALIST MANAGER 12/13/2024 6:55 AM PERSONNEL GENERALIST MANAGER Cameron Leach MD LAB - BLOOD BANK TEST ORDER Yenny l Result UR BLOOD BANK [facility] [place] [facility] [address] [facility] [place] [address] * (ABNORMAL) CBC with platelets (12/13/2024 6:44 AM PERSONNEL GENERALIST MANAGER) WBC Count 5.8 4.0 - 11.0 10e3/uL 12/13/2024 7:01 AM PERSONNEL GENERALIST MANAGER UR LABORATORY RBC Count 3.65(L) 3.80 - 5.20 10e6/uL 12/13/2024 7:01 AM PERSONNEL GENERALIST MANAGER UR LABORATORY Hemoglobin 9.1(L) 11.7 - 15.7 g/dL 12/13/2024 7:01 AM PERSONNEL GENERALIST MANAGER UR LABORATORY Hematocrit 28.7(L) 35.0 - 47.0 % 12/13/2024 7:01 AM PERSONNEL GENERALIST MANAGER UR LABORATORY MCV 79 78 - 100 fL 12/13/2024 7:01 AM PERSONNEL GENERALIST MANAGER UR LABORATORY MCH 24.9(L) 26.5 - 33.0 pg 12/13/2024 7:01 AM PERSONNEL GENERALIST MANAGER UR LABORATORY MCHC 31.7 31.5 - 36.5 g/dL 12/13/2024 7:01 AM PERSONNEL GENERALIST MANAGER UR LABORATORY RDW 15.0 10.0 - 15.0 % 12/13/2024 7:01 AM PERSONNEL GENERALIST MANAGER UR LABORATORY Platelet Count 190 150 - 450 10e3/uL 12/13/2024 7:01 AM PERSONNEL GENERALIST MANAGER UR LABORATORY Blood STRUCTURE OF RIGHT UPPER LIMB / Unknown Venipuncture / Unknown 12/13/2024 6:44 AM PERSONNEL GENERALIST MANAGER 12/13/2024 6:58 AM PERSONNEL GENERALIST MANAGER us Cameron Leach MD LAB - BLOOD ORDERABLES Final Res ult UR LABORATORY [facility] [address] [place] [address], [facility] * MFM Twins US Comprehensive F/U (12/11/2024 8:23 AM PERSONNEL GENERALIST MANAGER) Anatomical Region Laterality Modality Ultrasound 12/11/2024 7:19 AM PERSONNEL GENERALIST MANAGER Impressions 12/11/2024 9:51 AM PERSONNEL GENERALIST MANAGER IMPRESSION ----- Monochorionic diamniotic twin gestation [...] anemia polycythemia syndrome. Narrative 12/11/2024 9:51 AM [facility] Surveillance US ----- Pat. Name: DEANDRE CHÁVEZ Study Date: 12/11/2024 7:19am Pat. NO: [id number] Referring MD: PAMELA CUELLAR Site: Ticket Dispenser Changer: Catrachita Erazo RDMS : 1995 Age: 29 ----- INDICATION ----- Abnormal UA Doppler and Ductus Venosus waveforms Monochorionic-Diamniotic Twin Gestation Selective Growth Restriction (FGR) fetus 2 Circumvallate placenta METHOD ----- [facility] ANTEPARTUM inpatient exam, Transabdominal and transvaginal ultrasound [...] CHÁVEZ Study Date: 12/11/2024 7:19am Pat. NO: [id number] Referring MD: PAMELA CUELLAR Site: Ticket Dispenser Changer: Catrachita Erazo RDMS : 1995 Age: 29 ----- INDICATION ----- Abnormal UA Doppler and Ductus Venosus waveforms Monochorionic-Diamniotic Twin Gestation Selective Growth Restriction (FGR) fetus 2 Circumvallate placenta METHOD ----- [facility] ANTEPARTUM inpatient exam, Transabdominal and transvaginal ultrasoundapproaches [...] polycythemia syndrome. us Jenny De Souza MD [facility] US ORDERABLES Edited Re sult - Final * (ABNORMAL) Group B strep PCR (12/10/2024 8:49 PM PERSONNEL GENERALIST MANAGER) Group B Strep PCR Positive( A) Negative 12/11/2024 7:23 PM PERSONNEL GENERALIST MANAGER [facility] Comment:ALERT: Streptococcus agalactiae (Group B Streptococcus) has a high rate of resistance to clindamycin. Therefore, clindamycin is not recommended for treatment unless susceptibility testing has been performed. Swab STRUCTURE OF RECTOVAGINAL SEPTUM / Unknown Non-blood Collection / Unknown 12/10/2024 8:49 PM PERSONNEL GENERALIST MANAGER 12/10/2024 8:55 PM PERSONNEL GENERALIST MANAGER Narrative [facility] - 12/11/2024 7:23 PM PERSONNEL GENERALIST MANAGER The CepExactFlatid Xpert GBS LB Assay, performed on the [employer], is a qualitative in vitro diagnostic [...] settings. The device is not intended for [id number] use. us Jenny De Souza MD LAB - MICRO GENERAL ORDERABLES Final Result [facility] Inf. Diseases Diag. Lab [address] [facility], [address] [place] [phone] * Ferritin (12/10/2024 5:21 PM PERSONNEL GENERALIST MANAGER) Ferritin 15 6 - 175 ng/mL 12/11/2024 4:00 AM PERSONNEL GENERALIST MANAGER [facility] LAB[facility]ATORY Blood STRUCTURE OF RIGHT HAND / Unknown Venipuncture / Unknown 12/10/2024 5:21 PM PERSONNEL GENERALIST MANAGER 12/10/2024 5:25 PM PERSONNEL GENERALIST MANAGER us Cameron Leach MD LAB - BLOOD ORDERABLES Final Res ult UR LABORATORY [facility] Acute [facility] Lab [facility], Room [address] [phone] * (ABNORMAL) Iron and iron binding capacity (12/10/2024 5:21 PM PERSONNEL GENERALIST MANAGER) Iron 20(L) 37 - 145 ug/dL 12/11/2024 4:00 AM PERSONNEL GENERALIST MANAGER UR LABORATORY Iron Binding Capacity 398 240 - 430 ug/dL 12/11/2024 4:00 AM PERSONNEL GENERALIST MANAGER UR LABORATORY Iron Sat Index 5(L) 15 - 46 % 12/11/2024 4:00 AM PERSONNEL GENERALIST MANAGER UR LABORATORY Blood STRUCTURE OF RIGHT HAND / Unknown Venipuncture / Unknown 12/10/2024 5:21 PM PERSONNEL GENERALIST MANAGER 12/10/2024 5:25 PM PERSONNEL GENERALIST MANAGER us Cameron Leach MD LAB - BLOOD ORDERABLES Final Res ult Performing Organization Address City/[facility]/ZIP Co de Phone Number UR LABORATORY [facility] [address] [place] [address], [address] [phone] * Adult Type and Screen (12/10/2024 5:21 PM PERSONNEL GENERALIST MANAGER) ABO/RH(D) O POS 12/10/2024 4:51 PM PERSONNEL GENERALIST MANAGER UR BLOOD BANK Antibody Screen Negative Negative 12/10/2024 4:51 PM PERSONNEL GENERALIST MANAGER UR BLOOD BANK SPECIMEN EXPIRATION DATE [id number] 12/10/2024 4:51 PM PERSONNEL GENERALIST MANAGER UR BLOOD BANK Blood STRUCTURE OF RIGHT HAND / Unknown Venipuncture / Unknown 12/10/2024 5:21 PM PERSONNEL GENERALIST MANAGER 12/10/2024 5:25 PM PERSONNEL GENERALIST MANAGER us Jenny De Souza MD LAB - BLOOD BANK TEST ORDER Fin al Result UR BLOOD BANK [facility] Lab [address] [place] [address], Room [address] [phone] * (ABNORMAL) CBC with platelets and differential (12/10/2024 5:21 PM PERSONNEL GENERALIST MANAGER) Pathologist [facility] WBC Count 5.7 4.0 - 11.0 10e3/uL 12/10/2024 5:32 PM PERSONNEL GENERALIST MANAGER UR LABORATORY RBC Count 4.15 3.80 - 5.20 10e6/uL 12/10/2024 5:32 PM PERSONNEL GENERALIST MANAGER UR LABORATORY Hemoglobin 10.0(L) 11.7 - 15.7 g/dL 12/10/2024 5:32 PM PERSONNEL GENERALIST MANAGER UR LABORATORY Hematocrit 32.4(L) 35.0 - 47.0 % 12/10/2024 5:32 PM PERSONNEL GENERALIST MANAGER UR LABORATORY MCV 78 78 - 100 fL 12/10/2024 5:32 PM PERSONNEL GENERALIST MANAGER UR LABORATORY MCH 24.1(L) 26.5 - 33.0 pg 12/10/2024 5:32 PM PERSONNEL GENERALIST MANAGER UR LABORATORY MCHC 30.9(L) 31.5 - 36.5 g/dL 12/10/2024 5:32 PM PERSONNEL GENERALIST MANAGER UR LABORATORY RDW 15.0 10.0 - 15.0 % 12/10/2024 5:32 PM PERSONNEL GENERALIST MANAGER UR LABORATORY Platelet Count 220 150 - 450 10e3/uL 12/10/2024 5:32 PM PERSONNEL GENERALIST MANAGER UR LABORATORY % Neutrophils 69 % 12/10/2024 5:32 PM PERSONNEL GENERALIST MANAGER UR LABORATORY % Lymphocytes 24 % 12/10/2024 5:32 PM PERSONNEL GENERALIST MANAGER UR LABORATORY % Monocytes 6 % 12/10/2024 5:32 PM PERSONNEL GENERALIST MANAGER UR LABORATORY % Eosinophils 0 % 12/10/2024 5:32 PM PERSONNEL GENERALIST MANAGER UR LABORATORY % Basophils 0 % 12/10/2024 5:32 PM PERSONNEL GENERALIST MANAGER UR LABORATORY % Immature Granulocytes 0 % 12/10/2024 5:32 PM PERSONNEL GENERALIST MANAGER UR LABORATORY NRBCs per 100 WBC 0 <1 /100 025 5:32 PM PERSONNEL GENERALIST MANAGER UR LABORATORY Absolute Neutrophils 3.9 1.6 - 8.3 10e3/uL 12/10/2024 5:32 PM PERSONNEL GENERALIST MANAGER UR LABORATORY Absolute Lymphocytes 1.4 0.8 - 5.3 10e3/uL 12/10/2024 5:32 PM PERSONNEL GENERALIST MANAGER UR LABORATORY Absolute Monocytes 0.3 0.0 - 1.3 10e3/uL 12/10/2024 5:32 PM PERSONNEL GENERALIST MANAGER UR LABORATORY Absolute Eosinophils 0.0 0.0 - 0.7 10e3/uL 12/10/2024 5:32 PM PERSONNEL GENERALIST MANAGER UR LABORATORY Absolute Basophils 0.0 0.0 - 0.2 10e3/uL 12/10/2024 5:32 PM PERSONNEL GENERALIST MANAGER UR LABORATORY Absolute Immature Granulocytes 0.0 <=0.4 10e3/uL 12/10/2024 5:32 PM PERSONNEL GENERALIST MANAGER UR LABORATORY Absolute NRBCs 0.0 10e3/uL 12/10/2024 5:32 PM PERSONNEL GENERALIST MANAGER UR LABORATORY Blood STRUCTURE OF RIGHT HAND / Unknown Venipuncture / Unknown 12/10/2024 5:21 PM PERSONNEL GENERALIST MANAGER 12/10/2024 5:25 PM PERSONNEL GENERALIST MANAGER us Jenny De Souza MD LAB - BLOOD ORDERABLES Final Re sult UR LABORATORY [facility] [address] [facility], [address] [place] [address] * Treponema Abs w Reflex to RPR and Titer (12/10/2024 5:21 PM PERSONNEL GENERALIST MANAGER) Treponema Antibody Total Nonreactive Nonreactive 12/10/2024 10:44 PM PERSONNEL GENERALIST MANAGER SPECIALTY CORE/PROT/EN DO Blood STRUCTURE OF RIGHT HAND / Unknown Venipuncture / Unknown 12/10/2024 5:21 PM PERSONNEL GENERALIST MANAGER 12/10/2024 5:25 PM PERSONNEL GENERALIST MANAGER us Jenny De Souza MD LAB - BLOOD ORDERABLES Final Re sult [facility] SPECIALTY CORE/PROT/ENDO Specialty Core/Prot/Endo [address] [facility], Room [address] * (ABNORMAL) Comprehensive metabolic panel (12/10/2024 5:21 PM PERSONNEL GENERALIST MANAGER) Sodium 136 135 - 145 mmol/L 12/10/2024 5:53 PM PERSONNEL GENERALIST MANAGER UR LABORATORY Potassium 3.9 3.4 - 5.3 mmol/L 12/10/2024 5:53 PM PERSONNEL GENERALIST MANAGER UR LABORATORY Carbon Dioxide (CO2) 21(L) 22 - 29 mmol/L 12/10/2024 5:53 PM PERSONNEL GENERALIST MANAGER UR LABORATORY Anion Gap 11 7 - 15 mmol/L 12/10/2024 5:53 PM PERSONNEL GENERALIST MANAGER UR LABORATORY Urea Nitrogen 8.4 6.0 - 20.0 mg/dL 12/10/2024 5:53 PM PERSONNEL GENERALIST MANAGER UR LABORATORY Creatinine 0.51 0.51 - 0.95 mg/dL 12/10/2024 5:53 PM PERSONNEL GENERALIST MANAGER UR LABORATORY GFR Estimate >90 >60 mL/min/1.7 3m2 12/10/2024 5:53 PM PERSONNEL GENERALIST MANAGER UR LABORATORY Comment:eGFR calculated us2020 CKD-EPI equation. Calcium 8.9 8.8 - 10.4 mg/dL 12/10/2024 5:53 PM PERSONNEL GENERALIST MANAGER UR LABORATORY Chloride 104 98 - 107 mmol/L 12/10/2024 5:53 PM PERSONNEL GENERALIST MANAGER UR LABORATORY Glucose 79 70 - 99 mg/dL 12/10/2024 5:53 PM PERSONNEL GENERALIST MANAGER UR LABORATORY Alkaline Phosphatase 76 40 - 150 U/L 12/10/2024 5:53 PM PERSONNEL GENERALIST MANAGER UR LABORATORY AST 21 0 - 45 U/L 12/10/2024 5:53 PM PERSONNEL GENERALIST MANAGER UR LABORATORY ALT 16 0 - 50 U/L 12/10/2024 5:53 PM PERSONNEL GENERALIST MANAGER UR LABORATORY Protein Total 6.5 6.4 - 8.3 g/dL 12/10/2024 5:53 PM PERSONNEL GENERALIST MANAGER UR LABORATORY Albumin 3.5 3.5 - 5.2 g/dL 12/10/2024 5:53 PM PERSONNEL GENERALIST MANAGER UR LABORATORY Bilirubin Total 0.3 <=1.2 mg/dL 12/10/2024 5:53 PM PERSONNEL GENERALIST MANAGER UR LABORATORY Blood STRUCTURE OF RIGHT HAND / Unknown Venipuncture / Unknown 12/10/2024 5:21 PM PERSONNEL GENERALIST MANAGER 12/10/2024 5:25 PM PERSONNEL GENERALIST MANAGER us Jenny De Souza MD LAB - BLOOD ORDERABLES Final Re sult UR LABORATORY [facility] [address] [facility], [address] [place] [address], [facility] documented in this encounter Visit Diagnoses [...] exceed 4 grams/day. $Given 12/22/2024 8:02 PM PERSONNEL GENERALIST MANAGER 975 mg $Given 12/22/2024 1:57 PM PERSONNEL GENERALIST MANAGER 975 mg $Given 12/22/2024 4:22 AM PERSONNEL GENERALIST MANAGER 975 mg BioGaia Probiotic MISC 1 capsule 1 capsule, Oral, DAILY, First dose (after last modification) on Tue12/14/24 at 0800, Patient-supplied home medication. Verified by two Pharmacists (initials ALLI and PLACIDO). Store in medication room on patient unit. Send medication home with patient on discharge. $Given 12/19/2024 2:32 PM PERSONNEL GENERALIST MANAGER 1 capsule $Given 12/16/2024 3:18 PM PERSONNEL GENERALIST MANAGER 1 capsule $Given 12/15/2024 2:19 PM PERSONNEL GENERALIST MANAGER 1 capsule BUPivacaine liposome (EXPAREL) LA inj [...] 12/22/24 at 1519 $Given 12/23/2024 10:57 AM PERSONNEL GENERALIST MANAGER 1,000 mg $Given 12/23/2024 3:31 AM PERSONNEL GENERALIST MANAGER 1,000 mg carboprost (HEMABATE) injection 250 mcg [...] Give with food. $Given 12/23/2024 11:42 AM PERSONNEL GENERALIST MANAGER 800 mg $Given 12/22/2024 11:19 PM PERSONNEL GENERALIST MANAGER 800 mg $Given 12/22/2024 3:22 PM PERSONNEL GENERALIST MANAGER 800 mg loperamide (IMODIUM) capsule 4 mg [...] Tue12/11/24 at 0930 $Given 12/23/2024 10:57 AM PERSONNEL GENERALIST MANAGER 20 mg $Given 12/22/2024 9:04 AM PERSONNEL GENERALIST MANAGER 20 mg $Given 12/21/2024 8:11 AM PERSONNEL GENERALIST MANAGER 20 mg ondansetron (ZOFRAN ODT) ODT tab [...] for loose stools. $Given 12/21/2024 9:14 PM PERSONNEL GENERALIST MANAGER 1 tablet $Given 12/21/2024 8:11 AM PERSONNEL GENERALIST MANAGER 1 tablet senna-docusate (SENOKOT-S/PERICOLACE) 8.6-50 MG per tablet 2 tablet 2 tablet, Oral, 2 TIMES DAILY, First dose on Tue12/20/24 at 2000, Hold for loose stools. Preferred agent for constipation related to opioids. Hold for loose stools. $Given 12/20/2024 8:11 PM PERSONNEL GENERALIST MANAGER 2 tablets simethicone (MYLICON) chewable tablet 80 mg 80 mg, Oral, 4 TIMES DAILY PRN, other, gas, Starting on Tue12/20/24 at 1338, Chew. $Given 12/22/2024 8:05 PM PERSONNEL GENERALIST MANAGER 80 mg $Given 12/22/2024 12:24 AM PERSONNEL GENERALIST MANAGER 80 mg $Given 12/21/2024 6:18 PM PERSONNEL GENERALIST MANAGER 80 mg sodium chloride (OCEAN) 0.65 % nasal spray 1 spray 1 spray, Both Nostrils, EVERY 1 HOUR PRN, congestion, Starting on Tue12/18/24 at 2111 sodium chloride (PF) 0.9% PF flush 3 mL 3 mL, Intracatheter, EVERY 8 HOURS, First dose on Tue12/12/24 at 1700 $Given 12/21/2024 5:11 AM PERSONNEL GENERALIST MANAGER 3 mLs $Given 12/20/2024 10:49 PM PERSONNEL GENERALIST MANAGER 3 mLs $Given 12/20/2024 8:31 AM PERSONNEL GENERALIST MANAGER 3 mLs sodium chloride (PF) 0.9% PF flush 3 mL 3 mL, Intracatheter, EVERY 8 HOURS, First dose on Tue12/20/24 at 1400, to lock peripheral IV dormant line $Given 12/22/2024 12:26 AM PERSONNEL GENERALIST MANAGER 3 mLs sucralfate (CARAFATE) suspension 1 g 1 g, Oral, 3 TIMES DAILY PRN, other, patient request, Starting on Tue12/11/24 at 0925, Shake well. Recommended to take before meals. documented in this encounter Active and Recently Administered Medications Times are shown in PERSONNEL GENERALIST MANAGER. Scheduled Medication Order 12/21/2024 12/22/2024 12/23/2024 acetaminophen [...] PRN, nausea/vomiting - 2nd line, Starting on [facility] 12/20/24 at 1338, This is Step [...] or analgesic side effects. Hold while on BRIDGE WORKER APPRENTICE or with regular IV opioid dosing. Maximum [...] Depression Total Score: 7 12/10/19 2:56 PM PERSONNEL GENERALIST MANAGER documented as of this encounter Care Teams Jr. Java Developer Relationship Specialty Start Date End Date No Ref-Primary, Physician PCP - General 12/04/21 Flower Amato MD [address] [facility] [address] [address] Assigned OBGYN Provider 11/22/24 documented as of this encounter
--- OUTSIDE RECORDS SUMMARY | 2024-12-24 00:25 | XMS_ITS | Encounter Summary ---
Author Organization [place] Address [address] [facility] [place] [address] Care Team Providers Care Sand Mixer Name Role Phone No Ref-Primary, Physician Primary Care Provider Flower Amato MD Unavailable [phone] Encounter Details Date Type Department Care [...] on file Legal Sex Female 11:44 PM OPERATOR [employer] Gender Identity Not on file Sexual Orientation Not on file documented as of this encounter Plan of Treatment Not on file documented as of this encounter Visit Diagnoses Not on filedocumented in this encounter Care Teams Sand Mixer Relationship Specialty Start Date End Date No Ref-Primary, Physician PCP - General 12/04/21 Flower Amato MD [address] [place] [address] Assigned OBGYN Provider 11/22/24 documented as of this encounter
--- OUTSIDE RECORDS SUMMARY | 2024-12-24 00:25 | XMS_ITS | Clinical Summary ---
Author Organization [facility] Address [address] [place] [address] Care Team Providers Care Weather Forcaster Name Role Phone Merline Duffy MD Unavailable [phone] Amina Gardner MD Primary Care Provider Allergies [...] Vag 7 9 KOPYL OV,BB HEATHER Delivery Location:[facility]) Last Filed Vital Signs [...] ve Non-Reacti ve 04/15/2019 10:47 PM CDT [facility] Blood BLOOD SPECIMEN / Unknown Add On / Unknown 04/15/2019 10:29 AM CDT 04/15/2019 10:22 PM CDT us Amina Gardner MD SEND OUTS Final Result [facility] [address] [place] [address] * Patient Source ANTI HCV (04/15/2019 10:29 AM CDT) HEPATITIS C ANTIBODY Non-React pamella Non-React pamella 04/16/2019 5:11 PM CDT [facility] Comment:Antibodies to HCV no t detected; does not exclude the possibility of exposure to HCV. Blood BLOOD SPECIMEN / Unknown Venipuncture / Unknown 04/15/2019 10:29 AM CDT 04/15/2019 10:35 AM CDT us Amina Gardner MD SEND OUTS Final Result [facility] [address] [place] [address], [place] from Last 3 Months or Most Recently Relevant to Health Maintenance Insurance [facility] [employer]VA [employer] CASUAL[employer] INS Advance Directives * Full Code (Latest Code Status on File) Date Activated Date Inactivated Comments 04/15/2019 9:55 PM 04/17/2019 11:28 PM Question Answer Comments Code Status Discussion: Not Discussed Care Teams Weather Forcaster Relationship Specialty Start Date End Date Amina Gardner MD [address] [facility] [address] [place] [address] PCP - General Family Practice 12/08/18 Merline Duffy MD [address] [facility] [address] [place] [address] Family Practice 03/22/18
--- OUTSIDE RECORDS SUMMARY | 2024-12-24 00:25 | XMS_ITS | Encounter Summary ---
Author Organization [place] Address [address] [facility] [place] [address] Care Team Providers Care Floatlight Loading Supervisor Name Role Phone No Ref-Primary, Physician Primary Care Provider Flower Amato MD Unavailable [phone] Reason for Referral * Consultation (Routine: Next available opening) - Pending Review Specialty Diagnoses / Procedures Referred By Contac t Referred To Contact Diagnoses Monochorionic diamniotic twin , antepartum Flor Dickson MD [address] [place] [address] Phone: tel: fax: Referral ID Status Reason Start Date Expiration Date V isits Requested Visits Authorized [id number] Pending Review 12/04/2024 12/04/2025 1 1 Question Answer Office Visit Type: NICU Consult Comments 1230 12/05 RBOARD BOXES ESTIMATOR Reason for Visit * Reason Onset Date Comments Appointment 12/04/2024 Encounter Details Date Type Department Care Team (Late st Contact Info) Description 12/04/2024 Telephone [facility] Maternal [facility] [place] [address] [place] [address] Joceline Bejarano, RN Appointment Social [...] on file Legal Sex Female 11:44 PM PAPERBOARD BOXES ESTIMATOR Gender Identity Not on file Sexual Orientation Not on file documented as of this encounter Miscellaneous Notes * Telephone Encounter - Joceline Bejarano RN - 12/04/2024 1:57 PM PAPERBOARD BOXES ESTIMATOR Handle Finisher spoke with patient regarding follow up with MFM on 12/05. Patient agreed to move appt from 0800am to 1145am with a NICU consult at 1230. Joceline Bejarano RN RBOARD BOXES ESTIMATOR documented in this encounter Plan of Treatment Scheduled Referrals Name Type Priority Associated Diagnoses Orde r Schedule MFM Office Visit - NICU Consult Referral Routine: Next available opening Monochorionic diamniotic twin , antepartum Expected: 12/05/2024 (Approximate), Expires: 12/04/2025 documented as of this encounter Visit Diagnoses Diagnosis Monochorionic diamniotic twin , antepartum- Primary Twin , antepartum documented in this encounter Care Teams Floatlight Loading Supervisor Relationship Specialty Start Date End Date No Ref-Primary, Physician PCP - General 12/04/21 Flower Amato MD [address] [address] Assigned OBGYN Provider 11/22/24 documented as of this encounter
--- OUTSIDE RECORDS SUMMARY | 2024-12-24 00:25 | XMS_ITS | Encounter Summary ---
Author Organization [place] Address [address] [facility] [place] [address] Care Team Providers Care Living Specialist Name Role Phone No Ref-Primary, Physician Primary Care Provider Flower Amato MD Unavailable [phone] Reason for Visit * Reason Comments Ultrasound RL2/UAR/MCA-mono/di twins, fetus 2 FGR and AEDF, fetus 1 mild polyhydramnios Encounter Details Date Type Department Care Team (Latest Contact Info) Description 12/03/2024 2:45 PM RAM CAR OPERATOR Office Visit [facility] [place] [address] [place], [place] [address] [place] [address] Nicole Núñez MD [address] [place], [place] [address] [place] [address] Flor Dickson MD [address] [place] [address] Monochorionic diamniotic twin gestation in [...] on file Legal Sex Female 11:44 PM RAM CAR OPERATOR Gender Identity Not on file Sexual [...] Center. Flor Dickson M.D. Maternal -Medicine Specialist CAR OPERATOR documented in this encounter Nursing Notes * Rivka Jones, RN - 12/03/2024 2:45 PM CST Patient reports positive movement x 2. Education provided to patient on today's ultrasound and plan for future ultrasounds. SBAR given to [facility]AN[facility] MED[facility], see their note in Epic. CAR OPERATOR documented in this encounter Plan of Treatment Not on file documented as of this encounter Visit Diagnoses Diagnosis Monochorionic diamniotic twin gestation in second trimester- Primary Intrauterine growth restriction affecting antepartum care of mother in second trimester, fetus 2 documented in this encounter Care Teams Living Specialist Relationship Specialty Start Date End Date No Ref-Primary, Physician PCP - General 12/04/21 Flower Amato MD [address] [address] Assigned OBGYN Provider 11/22/24 documented as of this encounter
--- OUTSIDE RECORDS SUMMARY | 2024-12-24 00:25 | XMS_ITS | Encounter Summary ---
Author Organization [facility] Address [address] [place] [address]. [place] [address] Care Team Providers Care Warehouse Team Member Name Role Phone No Ref-Primary, Physician Primary Care Provider Flower Amato MD Unavailable [phone] Reason for Visit * Auth/Cert (Routine) Specialty Diagnoses / Procedures Referred By Controbert t Referred To Contact piledriver carpenter Diagnoses Monochorionic diamniotic twin , antepartum Maternity*Rudi 04/07/25/mono/di twins [facility] [address] [place] [id number] Phone: tel: Referral ID Status Reason Start Date Expiration Date Visits Re quested Visits Authorized [id number] 1 1 Encounter Details Date Type Department Care Team (Late st Contact Info) Description 12/20/2024 10:45 AM ENGLISH HORN PLAYER Anesthesia Event [facility] [address] [phone] Eneida Sanon MD [address] [place] [id number] Evangelina Helm MD [address] [facility], [address], [facility] [address] [place] [address] Anesthesia Record Procedure Summary Procedure [...] Vapocoolant spray (vibration); 1; aseptic; Tolerated well; [id number] 12/13/24 231 by Sharyn Cervantes RN 12/22/242056 [...] on file Legal Sex Female 11:44 PM ENGLISH HORN PLAYER Gender Identity Not on file Sexual Orientation [...] Sanon MD December 20, 2024 12:30 PM ISH HORN PLAYER * Anesthesia Postprocedure Evaluation - Eneida Sanon [...] Sanon MD December 20, 2024 12:30 PM ISH HORN PLAYER * Anesthesia Procedure Notes - Evangelina Helm MD - 12/20/2024 11:44 AM ENGLISH HORN PLAYER Associated Order(s): Peripheral/Paravertebral Block TAP Procedure Note [...] 20 mL - 12/20/2024 11:44:00 AM FOR [facility] ([facility]) ONLY: Pain Team Contact information: please page the Pain Team Via [facility] Pain. During daytime hours, please page the attending first. At night please page the resident first. ISH HORN PLAYER * Anesthesia Procedure Notes - Evangelina Helm MD - 12/20/2024 11:14 AM ENGLISH HORN PLAYER Associated Order(s): Airway Airway Patient location during [...] Administered Medication Administration Time: 12/20/2024 10:56 AM ISH HORN PLAYER * Anesthesia Preprocedure Evaluation - Eneida Sanon [...] Factors # Asthma: noted on problem list ISH HORN PLAYER ISH HORN PLAYER documented in this encounter Miscellaneous Notes * Anesthesia Care Transfer Note - Eneida Sanon MD - 12/20/2024 12:31 PM ENGLISH HORN PLAYER Patient: Heather Chávez Procedure: Procedure(s): section Diagnosis: [...] Sanon MD December 20, 2024 12:31 PM ISH HORN PLAYER documented in this encounter Plan of Treatment Not on file documented as of this encounter Procedures Procedure Name Priority Date/Time Associated Diagnosis Comments ANE PERIPHERAL/PARAVETEB RAL BLOCK Routine 12/20/2024 11:44 AM ENGLISH HORN PLAYER ANE AIRWAY ETT PERFORMABLE Routine 12/20/2024 10:56 AM ENGLISH HORN PLAYER documented in this encounter Results * Peripheral/Paravertebral Block (12/20/2024 11:44 AM ENGLISH HORN PLAYER) Narrative Evangelina Hlem MD - 12/20/2024 11:44 AM ENGLISH HORN PLAYER Evangelina Helm MD 12/20/2024 11:44 AM TAP [...] 20 mL - 12/20/2024 11:44:00 AM FOR [facility]) ONLY: Pain Team Contact information: please page the Pain Team Via [facility] [facility] Pain. During daytime hours, please page the attending first. At night please page the resident first. Eneida Sanon MD [place] ANESTHESIA Final Result * ANE AIRWAY ETT PERFORMABLE (12/20/2024 10:56 AM ENGLISH HORN PLAYER) Narrative Evangelina Helm MD - 12/20/2024 10:56 AM ENGLISH HORN PLAYER Evangelina Helm MD 12/20/2024 11:14 AM Airway [...] Time: 12/20/2024 10:56 AM Eneida Sanon MD [place] ANESTHESIA Final Result documented in this encounter Visit Diagnoses Not on filedocumented in this encounter Administered Medications Inactive Administered Medications - up to 3 most recent administrations Medication Order MAR Action Action Date Dose Rate Site Bupivacaine 0.25% PF (Infiltration) Infiltration, ONCE PRN WITHIN 24 HRS, Starting on Yarelis 12/20/24 at 1144, For 1 dose, Anesthesia Intra-op $Given 12/20/2024 11:44 AM ENGLISH HORN PLAYER 20 mLs BUPivacaine liposome (EXPAREL) 1.3 % LA inj susp Infiltration, ONCE PRN WITHIN 24 HRS, Starting on Yarelis 12/20/24 at 1144, For 1 dose, Anesthesia Intra-op $Given 12/20/2024 11:44 AM ENGLISH HORN PLAYER 20 mLs ceFAZolin Sodium (ANCEF) injection Routine, Intravenous, PRN, Starting on Yarelis 12/20/24 at 1100, Anesthesia Intra-op $Given 12/20/2024 11:00 AM ENGLISH HORN PLAYER 2 g dexAMETHasone (DECADRON) injection Intravenous, PRN, Administer over 1 Minutes, Starting on Yarelis 12/20/24 at 1116, Anesthesia Intra-op $Given 12/20/2024 11:16 AM ENGLISH HORN PLAYER 4 mg fentaNYL (PF) (SUBLIMAZE) injection Intravenous, PRN, Administer over 3-5 Minutes, Starting on Yarelis 12/20/24 at 1059, Anesthesia Intra-op $Given 12/20/2024 10:59 AM ENGLISH HORN PLAYER 100 mcg HYDROmorphone (DILAUDID) injection Intravenous, PRN, Starting on Yarelis 12/20/24 at 1132, Anesthesia Intra-op $Given 12/20/2024 11:32 AM ENGLISH HORN PLAYER 1 mg ketorolac (TORADOL) injection Intravenous, PRN, Administer over 2 Minutes, Starting on Yarelis 12/20/24 at 1124, Anesthesia Intra-op $Given 12/20/2024 11:24 AM ENGLISH HORN PLAYER 30 mg lactated ringers infusion Intravenous, CONTINUOUS PRN, Anesthesia Intra-op, Starting on Yarelis 12/20/24 at 1055, Until Yarelis 12/20/24 at 1210 $New Bag 12/20/2024 10:55 AM ENGLISH HORN PLAYER methylergonovine (METHERGINE) injection Intramuscular, PRN, Starting on Yarelis 12/20/24 at 1104, Anesthesia Intra-op $Given 12/20/2024 11:04 AM ENGLISH HORN PLAYER 200 mcg midazolam (VERSED) injection Intravenous, Administer over 2 Minutes, PRN, Starting on Yarelis 12/20/24 at 1059, Anesthesia Intra-op $Given 12/20/2024 10:59 AM ENGLISH HORN PLAYER 2 mg ondansetron (ZOFRAN) injection Intravenous, PRN, Administer over 2-5 Minutes, Starting on Yarelis 12/20/24 at 1116, Anesthesia Intra-op $Given 12/20/2024 11:16 AM ENGLISH HORN PLAYER 4 mg oxytocin (PITOCIN) 30 units in 500 mL 0.9% NaCl infusion Intravenous, CONTINUOUS PRN, Starting on Yarelis 12/20/24 at 1057, Anesthesia Intra-op Rate/Dose Change 12/20/2024 10:59 AM ENGLISH HORN PLAYER 600 mL/hr 600 mL/hr $New Bag 12/20/2024 10:57 AM ENGLISH HORN PLAYER 300 mL/hr 300 mL/hr phenylephrine (ALVIN-SYNEPHRINE) injection Intravenous, CONTINUOUS PRN, Starting on Yarelis 12/20/24 at 1101, Anesthesia Intra-op Rate/Dose Change 12/20/2024 11:29 AM ENGLISH HORN PLAYER 50 mcg/min 30 mL/hr Rate/Dose Change 12/20/2024 11:05 AM ENGLISH HORN PLAYER 150 mcg/min 90 mL /hr $New Bag 12/20/2024 11:01 AM ENGLISH HORN PLAYER 100 mcg/min 60 mL/hr propofol (DIPRIVAN) infusion Intravenous, CONTINUOUS PRN, Starting on Yarelis 12/20/24 at 1059, Anesthesia Intra-op $New Bag 12/20/2024 10:59 AM ENGLISH HORN PLAYER 150 mcg/kg/min 64.8 mL/hr propofol (DIPRIVAN) injection 10 mg/mL vial Intravenous, PRN, Starting on Yarelis 12/20/24 at 1101, Anesthesia Intra-op $Given 12/20/2024 11:37 AM ENGLISH HORN PLAYER 70 mg $Given 12/20/2024 11:36 AM ENGLISH HORN PLAYER 50 mg $Given 12/20/2024 11:01 AM ENGLISH HORN PLAYER 200 mg succinylcholine (ANECTINE) injection Intravenous, PRN, Starting on Yarelis 12/20/24 at 1101, Anesthesia Intra-op $Given 12/20/2024 11:01 AM ENGLISH HORN PLAYER 120 mg documented in this encounter Additional Health Concerns Assessment Noted Time PHQ-9 Depression Total Score: 7 12/10/19 2:56 PM ENGLISH HORN PLAYER documented as of this encounter Care Teams Warehouse Team Member Relationship Specialty Start Date End Date No Ref-Primary, Physician PCP - General 12/04/21 Flower Amato MD [address] [facility] [address] [place] [address] Assigned OBGYN Provider 11/22/24 documented as of this encounter
--- OUTSIDE RECORDS SUMMARY | 2024-12-24 00:25 | XMS_ITS | Encounter Summary ---
Author Organization [facility] Address [address] [facility] 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
--- OUTSIDE RECORDS SUMMARY | 2024-12-24 00:25 | XMS_ITS | Encounter Summary ---
Author Organization [facility] Address [address] 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 Gender Identity Not on file Sexual Orientation Not on file documented as of this encounter Plan of Treatment Not on file documented as of this encounter Visit Diagnoses Not on filedocumented in this encounter Additional Health Concerns Assessment Noted Time PHQ-9 Depression Total Score: 7 12/10/19 25 2:56 PM SVP PROGRAMMATIC TV documented as of this encounter Care Teams Railroad Car Cleaner Relationship Specialty Start Date End Date No Ref-Primary, Physician PCP - General 12/04/21 Flower Amato MD [address] [address] Assigned OBGYN Provider 11/22/24 documented as of this encounter
--- OUTSIDE RECORDS SUMMARY | 2024-12-24 00:25 | XMS_ITS | Encounter Summary ---
Author Organization [facility] Address [address] [place] [address] Care Team Providers Care Bindery Cutter Operator Name Role Phone No Ref-Primary, Physician Primary Care Provider Flower Amato MD Unavailable [phone] Reason for Referral * Diagnostic Imaging Ultrasound (Routine) - Pending Review Specialty Diagnoses / Procedures Referred By Contac t Referred To Contact Radiology. 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 Intrauterine growth restriction affecting antepartum care of mother in first trimester, fetus 2 Procedures MFM Twins Comprehensive F/U Nicole Núñez MD [address] [place] [phone] Phone: tel: fax: Referral ID Status Reason Start Date Expiration Date V isits Requested Visits Authorized [id number] Pending Review 11/22/2024 11/22/2025 1 1 E AGENT Reason for Visit * Diagnostic Imaging Ultrasound (Routine) - Pending Review Specialty Diagnoses / Procedures Referred By Contac t Referred To Contact Radiology. 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 Intrauterine growth restriction affecting antepartum care of mother in first trimester, fetus 2 Procedures MFM Twins US Comprehensive F/U Nicole Núñez MD [address] [place] [phone] Phone: tel: fax: Referral ID Status Reason Start Date Expiration Date V isits Requested Visits Authorized [id number] Pending Review 11/22/2024 11/22/2025 1 1 Encounter Details Date Type Department Care Team (Latest Contact Info) Description 12/05/2024 11:20 AM SCALE AGENT - 12/05/2024 11:59 PM SCALE AGENT Hospital Encounter [facility] [place] [address] [place] [id number] Karin Esteban MD [address] [address] [place] [address] Monochorionic diamniotic twin gestation in second trimester; [...] on file Legal Sex Female 11:44 PM SCALE AGENT Gender Identity Not on file Sexual [...] TWINS COMPREHENSIVE F/U Routine 12/05/2024 12:28 PM SCALE AGENT Monochorionic diamniotic twin gestation in second trimester Intrauterine growth restriction affecting antepartum care of mother in first trimester, fetus 2 documented in this encounter Results * MFM Twins US Comprehensive F/U (12/05/2024 12:28 PM SCALE AGENT) Anatomical Region Laterality Modality Ultrasound 12/05/2024 11:3 2 AM SCALE AGENT Impressions 12/05/2024 1:37 PM SCALE AGENT IMPRESSION ----- Monochorionic diamniotic twin gestation at [...] the a-wave today. Narrative 12/05/2024 1:37 PM SCALE AGENT Surveillance US ----- Pat. Name: HEATHER CHÁVEZ Study Date: 12/05/2024 11:32am Pat. NO: [id number] Referring MD: PAMELA CUELLAR Site: [employer] Technician: Piper TraemikeSUSAN hung : 1995 Age: 29 [...] the patient (reviewing medical records/tests), in direct nvsn-of-ayis contact with the patient during the visit counseling and discussing the plan of care and documenting the visit in the electronic medical record. Procedure Note Jesus Harmon MD - 12/05/2024 Surveillance US ----- Pat. Name: HEATHER CHÁVEZ Study Date: 12/05/2024 11:32am Pat. NO: [id number] Referring MD: PAMELA CUELLAR Site: [employer] Technician: Piper Huynh RDMS : 1995 Age: 29 [...] see the patient(reviewing medical records/tests), in direct unlb-oz-bouw contact with the patient during the visitcounseling [...] in the a-wave today. Nicole Núñez MD [facility] ORDERABLES Edited Result - Final documented in this encounter Visit Diagnoses Diagnosis Monochorionic diamniotic twin gestation in second trimester Intrauterine growth restriction affecting antepartum care of mother in first trimester, fetus 2 documented in this encounter Care Teams Bindery Cutter Operator Relationship Specialty Start Date End Date No Ref-Primary, Physician PCP - General 12/04/21 Flower Amato MD [address] [place] [address] Assigned OBGYN Provider 11/22/24 documented as of this encounter
--- OUTSIDE RECORDS SUMMARY | 2024-12-24 00:25 | XMS_ITS | Encounter Summary ---
Author Organization [facility] Address [address] [facility] 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 No / Unsure 12/08/2021 5:46 PM SENIOR GEOTECHNICAL ENGINEER documented as of this encounter Plan of Treatment Not on file documented as of this encounter Visit Diagnoses Not on filedocumented in this encounter Care Teams Clay Mine Cutting Machine Operator Relationship Specialty Start Date End Date No Ref-Primary, Physician PCP - General 12/04/21 Flower Amato MD [address] [facility] [address] [place] [address] Assigned OBGYN Provider 11/22/24 documented as of this encounter
--- OUTSIDE RECORDS SUMMARY | 2024-12-24 00:25 | XMS_ITS | Clinical Summary ---
Author Organization [place] Address [address] [place] [address] Care Team Providers Care Decorating And Assembly Supervisor Name Role Phone No Ref-Primary, Physician Primary Care Provider Flower Amato MD Unavailable [phone] Allergies No known active allergies Medications [...] please see the maternal medical record: Deandre Levya MR#:[id number] Partner's name: Los Baby's name: Delivery hospital: [facility] DIAGNOSIS: DIAGNOSIS / DIAGNOSES: 1) [...] 4) Relocation - 5) care with - [facility] 12/10 6) Labs - Blood type: [...] - D) DELIVERY PLAN: 1) Hospital - [facility] 2) Gestational age - 3) [...] - REFERRING PROVIDER(S): 1) Primary OB Provider: [facility] 2) Other Sub-Specialty Provider: 3) Anticipated Pediatric Provider: DEMOGRAPHICS: Patient contact info: [phone] [address] [facility] [phone] (home) Problem Noted Date Diagnosed Date Discordant [...] Department Care Team Description 12/23/2024 Orders Only [facility] [place] [address] [place] [facility] [address] [place] [address] Aure Guevara MD Esophageal spasm (Primary Dx) 12/20/2024 11:30 AM PARER Ancillary Procedure [facility] Imaging [address] [place] [address] Eneida Sanon MD 12/20/2024 10:50 AM PARER - 12/20/2024 12:[address] [facility] [address] [place] [address] Pennie Frank MD section 12/20/2024 10:45 AM PARER Anesthesia Event [facility] [address] [place] [address] Eneida Sanon MD Trost, Sierra, MD 12/20/2024 9:35 AM PARER Ancillary Procedure [facility] Imaging [address] [place] [address] 12/10/2024 3:17 PM PARER - 12/23/2024 4:30 PM PARER Hospital Encounter [facility] [address] [place] [address] Jesus Harmno MD Burn, Martina, MD Jones, Cresta Wedel, MD Monochorionic diamniotic twin , antepartum (Primary Dx); Gastroesophageal reflux disease without esophagitis; S/P section Discharge Disposition: Home or Self Care 12/10/2024 2:15 PM PARER Office Visit [facility] [place] [address] [place] [address] Eloy, Kenia Montcalm, CNM Monochorionic diamniotic twin , antepartum 12/10/2024 2:00 PM PARER Office Visit [facility] Maternal Medicine [facility] [address] [place] [address] Jaren Rodriguez MD Poor growth affecting management of mother in second trimester, fetus 2 (Primary Dx); Monochorionic diamniotic twin , antepartum 12/10/2024 1:10 PM PARER - 12/10/2024 3:16 PM PARER Hospital Encounter [facility] Maternal Medicine [facility] [address] [place] [address] Jaren Rodriguez MD Monochorionic diamniotic twin , antepartum Discharge Disposition: Home or Self Care 12/10/2024 Travel 12/07/2024 10:45 AM PARER Office Visit [facility] Maternal Medicine [facility] [address] [place] [address] Jaren Rodriguez MD Poor growth affecting management of mother in second trimester, fetus 2 (Primary Dx); Monochorionic diamniotic twin , antepartum 12/07/2024 10:08 AM PARER - 12/07/2024 11:59 PM PARER Hospital Encounter [facility] Maternal Medicine [facility] [address] [place] [address] Jaren Rodriguez MD Monochorionic diamniotic twin , antepartum Discharge Disposition: Home or Self Care 12/07/2024 Travel 12/05/2024 12:30 PM PARER Office Visit [facility] Maternal Medicine [facility] [address] [place] [address] Karin Esteban MD Scheurer, Johannah McMullen, MD Monochorionic diamniotic twin , antepartum 12/05/2024 12:15 PM PARER Office Visit [facility] Maternal Medicine [facility] [address] [place] [address] Karin Esteban MD Marcotte, Michael, MD Monochorionic diamniotic twin , antepartum (Primary Dx); Poor growth affecting management of mother in second trimester, fetus 2; Umbilical cord complication, unspecified cord complication, fetus 2 12/05/2024 11:20 AM PARER - 12/05/2024 11:59 PM PARER Hospital Encounter [facility] [place] [address] [place] [address] Karin Esteban MD Monochorionic diamniotic twin gestation in second trimester; Intrauterine growth restriction affecting antepartum care of mother in first trimester, fetus 2 Discharge Disposition: Home or Self Care 12/05/2024 Orders Only [facility] Maternal Medicine [facility] [address] [place] [address] Joceline Bejarano RN Monochorionic diamniotic twin , antepartum (Primary Dx) 12/05/2024 Travel 12/04/2024 Telephone [facility] Maternal Medicine [facility] [address] [place] [address] Joceline Bejarano, RN Appointment 12/04/2024 MyC Medical Advice [facility] Maternal Medicine [facility] [address] [place] [address] Joceline Bejarano RN 12/03/2024 2:45 PM PARER Office Visit [facility] Maternal Medicine [facility] [address] [place] [address] Nicole Núñez MD Nashif, Sereen, MD Monochorionic diamniotic twin gestation in second trimester (Primary Dx); Intrauterine growth restriction affecting antepartum care of mother in second trimester, fetus 2 12/03/2024 2:01 PM PARER - 12/03/2024 11:59 PM PARER Hospital Encounter [facility] Maternal Medicine [facility] [address] [place] [address] Nicole Núñez MD Monochorionic diamniotic twin gestation in second trimester Discharge Disposition: Home or Self Care 12/03/2024 Travel 12/02/2024 Telephone [facility] [address] [place] [phone] Beverly Gagnon RN Orders 11/30/2024 2:45 PM PARER Office Visit [facility] [place] [address] [place] [address] Nicole Núñez MD Monochorionic diamniotic twin gestation in second trimester (Primary Dx); Intrauterine growth restriction affecting antepartum care of mother in first trimester, fetus 2; Ductus venosus abnormality 11/30/2024 1:31 PM PARER - 11/30/2024 11:59 PM PARER Hospital Encounter [facility] [place] [address] [place] [address] Nicole Núñez MD Monochorionic diamniotic twin gestation in second trimester Discharge Disposition: Home or Self Care 11/30/2024 12:25 PM PARER - 11/30/2024 1:30 PM PARER Hospital Encounter [facility] [address] [place] [phone] Yobani Crespo MD Monochorionic diamniotic twin gestation in second trimester Discharge Disposition: Home or Self Care 11/30/2024 12:00 PM PARER - 11/30/2024 12:24 PM PARER Hospital Encounter [facility] [address] [place] [address] Yobani Crespo MD Monochorionic diamniotic twin gestation in second trimester Discharge Disposition: Home or Self Care 11/30/2024 Office Visit [facility] [address] [place] [address] [facility] [address] [place] [address] Luc Dominguez MD cardiac anomaly complicating , antepartum, fetus 1 (Primary Dx); cardiac anomaly complicating , antepartum, fetus 2 11/30/2024 Travel 11/22/2024 10:00 AM PARER Office Visit [facility] [place] [address] [facility] [address] [place] [address] Nicole Núñez MD Monochorionic diamniotic twin gestation in second trimester (Primary Dx); Intrauterine growth restriction affecting antepartum care of mother in first trimester, fetus 2 11/22/2024 9:28 AM PARER - 11/22/2024 11:59 PM PARER Hospital Encounter [facility] [place] [address] [place] [address] Nicole Núñez MD Monochorionic diamniotic twin gestation in second trimester Discharge Disposition: Home or Self Care 11/22/2024 Travel 11/14/2024 11:30 AM PARER Office Visit [facility] Maternal [facility] [place] [address] [place] [address] Flower Amato MD Monochorionic diamniotic twin gestation in second trimester (Primary Dx); Discordant growth in twin gestation, fetus 2 of multiple gestation; Intrauterine growth restriction affecting antepartum care of mother in first trimester, fetus 2 11/14/2024 10:09 AM PARER - 11/14/2024 11:59 PM PARER Hospital Encounter [facility] [place] [address] [place] [address] Flower Amato MD Monochorionic diamniotic twin gestation in second trimester Discharge Disposition: Home or Self Care 11/14/2024 Travel 11/08/2024 10:00 AM PARER Office Visit [facility] Maternal Medicine Center [place] [address] [place] [address] Flor Dickson MD Monochorionic diamniotic twin gestation in second trimester (Primary Dx); Discordant growth in twin gestation, fetus 2 of multiple gestation 11/08/2024 9:24 AM PARER - 11/08/2024 11:59 PM PARER Hospital Encounter [facility] Maternal Medicine [facility] [address] [place] [address] Flor Dickson MD Monochorionic diamniotic twin gestation in second trimester Discharge Disposition: Home or Self Care 11/08/2024 Travel 11/02/2024 2:00 PM PARER Office Visit [facility] [place] [address] [place] [address] Yobani Crespo MD Nashif, Sereen, MD Monochorionic diamniotic twin gestation in second trimester (Primary Dx); Intrauterine growth restriction affecting antepartum care of mother in first trimester, fetus 2 11/02/2024 1:22 PM PARER - 11/02/2024 11:59 PM PARER Hospital Encounter [facility] Maternal Medicine Center [place] [address] [place] [address] Yobani Crespo MD Nashif, Sereen, MD Monochorionic diamniotic twin gestation in second trimester Discharge Disposition: Home or Self Care 11/02/2024 Travel 10/26/2024 11:30 AM PARER Office Visit [facility] Maternal Medicine Center [address] [address] Estrella Esteban MD Monochorionic diamniotic twin gestation in second trimester (Primary Dx); growth restriction antepartum 10/26/2024 11:00 AM PARER Ancillary Procedure [facility] M[facility] Center [address] [address] Estrella Esteban MD Monochorionic diamniotic twin gestation in second trimester 10/26/2024 Travel 10/19/2024 11:30 AM PARER Office Visit [facility] [place] [address] [place] [address] Yobani Crespo MD Monochorionic diamniotic twin gestation in second trimester (Primary Dx); growth restriction antepartum 10/19/2024 11:00 AM PARER - 10/19/2024 11:59 PM PARER Hospital Encounter [facility] Maternal Medicine [facility] [address] [place] [address] Yobani Crespo MD related condition, antepartum Discharge Disposition: Home or Self Care 10/19/2024 Travel 10/15/2024 PRE VISIT [facility] [address] [facility] [address] [place] [address] Debra Tran RN Ultrasound (2/3 complete-Twin , mono-di) 10/10/2024 Transcribe Orders [facility] [address] [facility] [address] [place] [address] Pamela Cuellar MD related condition, antepartum (Primary Dx) 10/09/2024 Medical Correspondence [facility] [address] [facility] [address] [place] [address] Scan, Non-Provider from Last 3 Months Immunizations [...] Answer Date Recorded PHQ-2 Score 2 12/10/2024 [place] Depression Scale Answer Date Recorded Last EPDS [...] on file Legal Sex Female 11:44 PM PARER Gender Identity Not on file Sexual Orientation Not on file Last Filed Vital Signs Vital Sign Reading Time Taken Comments Blood Pressure 119/87 12/23/2024 9:12 AM PARER Pulse 66 12/23/2024 9:12 AM PARER Temperature 36.8 C (98.3 F) 12/23/2024 9:12 AM PARER Respiratory Rate 16 12/23/2024 9:12 AM PARER Oxygen Saturation 99% 12/22/2024 11:39 AM PARER Inhaled Oxygen Concentration - - Weight 67.4 kg (148 lb 8 oz) 12/23/2024 11:09 AM PARER Height 165.1 cm (5' 5) 12/04/2021 10:10 PM PARER Body Mass Index 24.71 12/04/2021 10:10 PM PARER Plan of Treatment Health Maintenance Due Date [...] Comments PLATELET COUNT Routine 12/23/2024 8:01 AM PARER EXTRA BLUE TOP TUBE Routine 12/22/2024 1 0:33 PM PARER EXTRA TUBE Routine 12/22/2024 10:33 PM PARER CBC WITH PLATELETS STAT 12/22/2024 10 :33 PM PARER TROPONIN T, HIGH SENSITIVITY STAT 12/22/2024 10:33 PM PARER EKG 12-LEAD, TRACING ONLY STAT 12/22/2024 9:49 PM PARER ABO/RH TYPE AND SCREEN Timed 9:07 AM PARER TYPE AND SCREEN, ADULT Timed 9:07 AM PARER CBC WITH PLATELETS Timed 12/22/2024 9: 07 AM PARER HEMOGLOBIN Routine 12/21/2024 8:23 AM PARER EXTRA PURPLE TOP TUBE Routine 12/20/2024 3:53 PM PARER EXTRA TUBE Routine 12/20/2024 3:53 PM PARER CREATININE Routine 12/20/2024 3:53 PM PARER ANE PERIPHERAL/PARAVETEBRA L BLOCK Routine 12/20/2024 11:44 AM PARER XR ABDOMEN PORT 1 VIEW Routine 11:40 AM PARER POC US GUIDANCE NEEDLE PLACEMENT Routine 12/20/2024 11:16 AM PARER ANE AIRWAY ETT PERFORMABLE Routine 12/20/2024 10:56 AM PARER SECTION 12/20/2024 10:4 8 AM PARER POC US GUIDANCE NEEDLE PLACEMENT Routine 12/20/2024 9:33 AM PARER ABO/RH TYPE AND SCREEN Timed 8:41 AM PARER TYPE AND SCREEN, ADULT Timed 8:41 AM PARER CBC WITH PLATELETS Timed 12/19/2024 8: 41 AM PARER MFM TWINS US COMPREHENSIVE F/U Routine 12/19/2024 8:22 AM PARER M TWINS US COMPREHENSIVE F/U Routine 12/17/2024 8:33 AM PARER ABO/RH TYPE AND SCREEN Timed 11:00 AM PARER TYPE AND SCREEN, ADULT Timed 11:00 AM PARER CBC WITH PLATELETS Timed 12/16/2024 11 :00 AM PARER [facility] US OB LIMITED SINGLE/MULTIPLE Routine 12/15/2024 8:15 AM PARER [facility] TWINS US COMPREHENSIVE F/U Routine 12/13/2024 8:06 AM PARER ABO/RH TYPE AND SCREEN Timed 6:44 AM PARER TYPE AND SCREEN, ADULT Timed 6:44 AM PARER CBC WITH PLATELETS Timed 12/13/2024 6: 44 AM PARER [facility] TWINS US COMPREHENSIVE F/U Routine 12/11/2024 8:23 AM PARER GROUP B STREP PCR Routine 12/10/2024 8:4 9 PM PARER ABO/RH TYPE AND SCREEN STAT 5:21 PM PARER CBC WITH PLATELETS & DIFFERENTIAL STAT 12/10/2024 5:21 PM PARER TYPE AND SCREEN, ADULT STAT 5 5:21 PM PARER FERRITIN Add-On 12/10/2024 5:21 PM PARER IRON AND IRON BINDING CAPACITY Add-On 12/10/2024 5:21 PM PARER CBC WITH PLATELETS AND DIFFERENTIAL STAT 12/10/2024 5:21 PM PARER TREPONEMA ABS W REFLEX TO RPR AND TITER STAT 12/10/2024 5:21 PM PARER COMPREHENSIVE METABOLIC PANEL STAT 12/10/2024 5:21 PM PARER MFM TWINS US COMPREHENSIVE F/U Routine 12/10/2024 2:29 PM PARER Monochorionic diamniotic twin , antepartum NON-STRESS TEST - HIM SCAN 12/10/2024 12:00 AM PARER MFM TWINS US COMPREHENSIVE F/U Routine 12/07/2024 11:40 AM PARER Monochorionic diamniotic twin , antepartum MFM TWINS US COMPREHENSIVE F/U Routine 12/05/2024 12:28 PM PARER Monochorionic diamniotic twin gestation in second trimester Intrauterine growth restriction affecting antepartum care of mother in first trimester, fetus 2 MFM TWINS US COMPREHENSIVE F/U Routine 12/03/2024 3:46 PM PARER Monochorionic diamniotic twin gestation in second trimester MFM TWINS US COMPREHENSIVE F/U Routine 11/30/2024 3:11 PM PARER Monochorionic diamniotic twin gestation in second trimester ECHO COMPLETE Routine 11/30/2024 1 :46 PM PARER Monochorionic diamniotic twin gestation in second trimester ECHO COMPLETE Routine 11/30/2024 1 :46 PM PARER Monochorionic diamniotic twin gestation in second trimester MFM TWINS US COMPREHENSIVE F/U Routine 11/22/2024 11:09 AM PARER Monochorionic diamniotic twin gestation in second trimester MFM TWINS US COMPREHENSIVE Routine 11/14/2024 11:59 AM PARER Monochorionic diamniotic twin gestation in second trimester MFM TWINS US COMPREHENSIVE F/U Routine 11/08/2024 10:15 AM PARER Monochorionic diamniotic twin gestation in second trimester MFM TWINS US COMPREHENSIVE F/U Routine 11/02/2024 2:26 PM PARER Monochorionic diamniotic twin gestation in second trimester MFM TWINS US COMPREHENSIVE F/U Routine 10/26/2024 11:48 AM PARER Monochorionic diamniotic twin gestation in second trimester MFM TWINS US OB COMPLETE 2/3 TRI Routine 10/19/2024 1:39 PM PARER related condition, antepartum from Last 3 Months Results * Platelet count (12/23/2024 8:01 AM PARER) Platelet Count 219 150 - 450 10e3/uL 12/23/2024 8:16 AM PARER UR LABORATORY Blood STRUCTURE OF LEFT UPPER LIMB / Unknown Venipuncture / Unknown 12/23/2024 8:01 AM PARER 12/23/2024 8:13 AM PARER us Oneil Lyons MD LAB - BLOOD ORDERABLES Final R esult UR LABORATORY [facility] Acute Care Lab [address] [place] [address], [address] * Extra Blue Top Tube (12/22/2024 10:33 PM PARER) Hold Specimen JIC 12/22/2024 11:46 PM PARER UR LABORATORY Blood STRUCTURE OF RIGHT UPPER LIMB / Unknown Venipuncture / Unknown 12/22/2024 10:33 PM PARER 12/22/2024 10:42 PM PARER us Emil Ahmadi MD LAB - BLOOD ORDERABLES Fin al Result UR LABORATORY [facility] Acute [facility] Lab [address] [place] [address], [address] * Troponin T, High Sensitivity (12/22/2024 10:33 PM PARER) [facility] Troponin T, High Sensitivity <6 <=14 ng/L 12/22/2024 11:01 PM PARER UR LABORATORY Comment: Either a High Sensitivity [...] Unknown Venipuncture / Unknown 12/22/2024 10:33 PM PARER 12/22/2024 10:39 PM PARER us Cameron Leach MD LAB - BLOOD ORDERABLES Final Res ult UR LABORATORY [facility] Acute Care Lab [address] [facility] [place] [address], [facility] * (ABNORMAL) CBC with platelets (12/22/2024 10:33 PM PARER) Only the most recent of5 resultswithin the time period is included. [facility] WBC Count 3.6(L) 4.0 - 11.0 10e3/uL 12/22/2024 10:45 PM PARER UR LABORATORY RBC Count 3.78(L) 3.80 - 5.20 10e6/uL 12/22/2024 10:45 PM PARER UR LABORATORY Hemoglobin 9.4(L) 11.7 - 15.7 g/dL 12/22/2024 10:45 PM PARER UR LABORATORY Hematocrit 30.5(L) 35.0 - 47.0 % 12/22/2024 10:45 PM PARER UR LABORATORY MCV 81 78 - 100 fL 12/22/2024 10:45 PM PARER UR LABORATORY MCH 24.9(L) 26.5 - 33.0 pg 12/22/2024 10:45 PM PARER UR LABORATORY MCHC 30.8(L) 31.5 - 36.5 g/dL 12/22/2024 10:45 PM PARER UR LABORATORY RDW 18.0(H) 10.0 - 15.0 % 12/22/2024 10:45 PM PARER UR LABORATORY Platelet Count 219 150 - 450 10e3/uL 12/22/2024 10:45 PM PARER UR LABORATORY Blood STRUCTURE OF RIGHT UPPER LIMB / Unknown Venipuncture / Unknown 12/22/2024 10:33 PM PARER 12/22/2024 10:39 PM PARER us Cameron Leach MD LAB - BLOOD ORDERABLES Final Res ult UR LABORATORY [facility] Acute Care Lab [address] [place] [address], [address] * Adult Type and Screen (12/22/2024 9:07 AM PARER) Only the most recent of5 resultswithin the time period is included. ABO/RH(D) O POS 12/22/2024 6:00 AM PARER UR BLOOD BANK Antibody Screen Negative Negative 12/22/2024 6:00 AM PARER UR BLOOD BANK SPECIMEN EXPIRATION DATE [id number] 12/22/2024 6:00 AM PARER UR BLOOD BANK Blood STRUCTURE OF RIGHT UPPER LIMB / Unknown Venipuncture / Unknown 12/22/2024 9:07 AM PARER 12/22/2024 9:14 AM PARER us Camreon Leach MD LAB - BLOOD BANK TEST ORDER Yenny l Result UR BLOOD BANK [facility] Lab [address] [place] [address], [address] * (ABNORMAL) Hemoglobin (12/21/2024 8:23 AM PARER) Hemoglobin 9.3(L) 11.7 - 15.7 g/dL 12/21/2024 8:41 AM PARER UR LABORATORY Blood BLOOD SPECIMEN / Unknown Venipuncture / Unknown 12/21/2024 8:23 AM PARER 12/21/2024 8:37 AM PARER Oneil Lyons MD LAB - BLOOD ORDERABLES Final R esult UR LABORATORY [facility] Acute [facility] Lab [address] [place] [address], [address] * Extra Purple Top Tube (12/20/2024 3:53 PM PARER) Hold Specimen JIC 12/20/2024 5:03 PM PARER UR LABORATORY Blood STRUCTURE OF RIGHT UPPER LIMB / Unknown Venipuncture / Unknown 12/20/2024 3:53 PM PARER 12/20/2024 3:58 PM PARER Emil Ahmadi MD LAB - BLOOD ORDERABLES Fin al Result Performing Organization Address City/[facility] Co de Phone Number UR LABORATORY [facility] Lab [address] [place] [address], [address] * Creatinine (12/20/2024 3:53 PM PARER) Creatinine 0.53 0.51 - 0.95 mg/dL 12/20/2024 4:25 PM PARER UR LABORATORY GFR Estimate >90 >60 mL/min/1.7 3m2 12/20/2024 4:25 PM PARER UR LABORATORY Comment:eGFR calculated us2020 CKD-EPI equation. Blood STRUCTURE OF RIGHT UPPER LIMB / Unknown Venipuncture / Unknown 12/20/2024 3:53 PM PARER 12/20/2024 3:58 PM PARER us Oneil Lyons MD LAB - BLOOD ORDERABLES Final R esult UR LABORATORY [facility] Acute Care Lab [address] [facility] [place] [address], [facility] * Peripheral/Paravertebral Block (12/20/2024 11:44 AM PARER) Narrative Evangelina Helm MD - 12/20/2024 11:44 AM PARER Evangelina Helm MD 12/20/2024 11:44 AM TAP [...] 20 mL - 12/20/2024 11:44:00 AM FOR [facility] ([facility]) ONLY: Pain Team Contact information: please page the Pain Team Via [employer]. Search Pain. During daytime hours, please page the attending first. At night please page the resident first. us Eneida Sanon MD AL ANESTHESIA Final Result * XR Abdomen Port 1 View (12/20/2024 11:40 AM PARER) Anatomical Region Laterality Modality Abdomen/Pelvis Computed Radiogr aphy Impressions 12/20/2024 11:45 AM PARER Impression: Curvilinear radiopacities overlying the right upper radiograph overlying the right inferior ribs, indeterminate, question external to the patient. Consider correlation. Otherwise no radiopaque instrument or needle visualized overlying the pelvis in field of view of the radiograph Finding of indeterminate radiopacity communicated to operating room personnel by Zachary at 11:30 AM 12/20/2024 MARY BRADEN MD Narrative 12/20/2024 11:45 AM PARER Exam: XR ABDOMEN PORT 1 VIEW, 12/20/2024 [...] US Guidance Needle Placement (12/20/2024 11:16 AM PARER) Only the most recent of2 resultswithin the time period is included. Anatomical Region Laterality Modality Other Impressions 12/20/2024 11:16 AM PARER Transversus abdominus plane block, bilateral Eneida Sanon MD IMG POCUS Final Result * ANE AIRWAY ETT PERFORMABLE (12/20/2024 10:56 AM PARER) Narrative Evangelina Helm MD - 12/20/2024 10:56 AM PARER Evangelina Helm MD 12/20/2024 11:14 AM Airway [...] Time: 12/20/2024 10:56 AM Eneida Sanon MD AL ANESTHESIA Final Result * MFM Twins [facility] F/U (12/19/2024 8:22 AM PARER) Only the most recent of13 resultswithin the time period is included. Anatomical Region Laterality Modality Ultrasound 12/19/2024 7:12 AM PARER Impressions 12/19/2024 8:29 AM PARER IMPRESSION ----- Monochorionic diamniotic twin gestation with [...] of twin 2. Narrative 12/19/2024 8:29 AM [facility] Surveillance US ----- Pat. Name: DEANDRE LEYVA Study Date: 12/19/2024 7:12am Pat. NO: [id number] Referring MD: PAMELA CUELLAR Site: Service Observer: Piper Huynh RDMS : 1995 Age: 29 ----- INDICATION ----- INPATIENT Abnormal UA Doppler and Ductus Venosus waveforms Monochorionic-Diamniotic Twin Gestation Selective Growth Restriction (FGR) fetus 2 Circumvallate placenta METHOD ----- [facility] ANTEPARTUM inpatient exam. Transabdominal ultrasound examination. [...] LEYVA Study Date: 12/19/2024 7:12am Pat. NO: [id number] Referring MD: PAMELA CUELLAR Site: Service Observer: Piper Huynh RDMS : 1995 Age: 29 ----- INDICATION ----- INPATIENT Abnormal UA Doppler and Ductus Venosus waveforms Monochorionic-Diamniotic Twin Gestation Selective Growth Restriction (FGR) fetus 2 Circumvallate placenta METHOD ----- [facility] ANTEPARTUM inpatient exam. Transabdominal ultrasound examination.View: [...] twin 2. us Joceline Grant MD Zak [facility] US ORDERABLES Edited Res ult - Final * Maternal US OB Limited Single/Multiple (12/15/2024 8:15 AM PARER) Anatomical Region Laterality Modality Ultrasound 12/15/2024 7:38 AM PARER Impressions 12/15/2024 10:58 AM PARER IMPRESSION ----- Monochorionic diamniotic twin gestation with [...] anemia polycythemia syndrome. Narrative 12/15/2024 10:58 AM [facility] Surveillance US ----- Pat. Name: DEANDRE LEYVA Study Date: 12/15/2024 7:38am Pat. NO: [id number] Referring MD: PAMELA CUELLAR Site: Service Observer: Chantell Jarquin RDMS : 1995 Age: 29 ----- INDICATION ----- INPATIENT Abnormal UA Doppler and Ductus Venosus waveforms Monochorionic-Diamniotic Twin Gestation Selective Growth Restriction (FGR) fetus 2 Circumvallate placenta METHOD ----- [facility] ANTEPARTUM inpatient exam, Transabdominal ultrasound examination. [...] LEYVA Study Date: 12/15/2024 7:38am Pat. NO: [id number] Referring MD: PAMELA CUELLAR Site: Service Observer: Chantell Jarquin RDMS : 1995 Age: 29 ----- INDICATION ----- INPATIENT Abnormal UA Doppler and Ductus Venosus waveforms Monochorionic-Diamniotic Twin Gestation Selective Growth Restriction (FGR) fetus 2 Circumvallate placenta METHOD ----- [facility] ANTEPARTUM inpatient exam, Transabdominal ultrasound examination.View: [...] anemia polycythemia syndrome. us Guevara Amin MD [facility] US ORDERABLES Edited Res ult - Final * (ABNORMAL) Group B strep PCR (12/10/2024 8:49 PM PARER) Group B Strep PCR Positive( A) Negative 12/11/2024 7:23 PM PARER [facility] Comment:ALERT: Streptococcus agalactiae (Group B Streptococcus) has a high rate of resistance to clindamycin. Therefore, clindamycin is not recommended for treatment unless susceptibility testing has been performed. Swab STRUCTURE OF RECTOVAGINAL SEPTUM / Unknown Non-blood Collection / Unknown 12/10/2024 8:49 PM PARER 12/10/2024 8:55 PM PARER Narrative [facility] - 12/11/2024 7:23 PM PARER The Primordial Xpert GBS LB Assay, performed on the [employer], is a qualitative in vitro diagnostic [...] or monitor treatment for GBS infections. The CepPagerid Xpert GBS LB Assay is intended for use in hospital, reference or state laboratory settings. The device is not intended for pebqg-mq-prfv use. us Jenny De Souza MD LAB - MICRO GENERAL ORDERABLES Final Result [facility] Inf. Diseases Diag. Lab [address] [facility], [address] [place] [phone] [place] * (ABNORMAL) CBC with platelets and differential (12/10/2024 5:21 PM PARER) [facility] WBC Count 5.7 4.0 - 11.0 10e3/uL 12/10/2024 5:32 PM PARER [facility] LAB[facility]ORY RBC Count 4.15 3.80 - 5.20 10e6/uL 12/10/2024 5:32 PM PARER [facility] Hemoglobin 10.0(L) 11.7 - 15.7 g/dL 12/10/2024 5:32 PM PARER [facility] Hematocrit 32.4(L) 35.0 - 47.0 % 12/10/2024 5:32 PM PARER [facility] MCV 78 78 - 100 fL 12/10/2024 5:32 PM PARER [facility] MCH 24.1(L) 26.5 - 33.0 pg 12/10/2024 5:32 PM PARER [facility] MCHC 30.9(L) 31.5 - 36.5 g/dL 12/10/2024 5:32 PM PARER [facility] RDW 15.0 10.0 - 15.0 % 12/10/2024 5:32 PM PARER [facility] Platelet Count 220 150 - 450 10e3/uL 12/10/2024 5:32 PM PARER [facility] % Neutrophils 69 % 12/10/2024 5:32 PM PARER [facility] % Lymphocytes 24 % 12/10/2024 5:32 PM PARER [facility] % Monocytes 6 % 12/10/2024 5:32 PM PARER [facility] % Eosinophils 0 % 12/10/2024 5:32 PM PARER [facility] % Basophils 0 % 12/10/2024 5:32 PM PARER [facility] % Immature Granulocytes 0 % 12/10/2024 5:32 PM PARER [facility] NRBCs per 100 WBC 0 <1 /100 025 5:32 PM PARER [facility] Absolute Neutrophils 3.9 1.6 - 8.3 10e3/uL 12/10/2024 5:32 PM PARER [facility] Absolute Lymphocytes 1.4 0.8 - 5.3 10e3/uL 12/10/2024 5:32 PM PARER [facility] Absolute Monocytes 0.3 0.0 - 1.3 10e3/uL 12/10/2024 5:32 PM PARER [facility] Absolute Eosinophils 0.0 0.0 - 0.7 10e3/uL 12/10/2024 5:32 PM PARER [facility] Absolute Basophils 0.0 0.0 - 0.2 10e3/uL 12/10/2024 5:32 PM PARER [facility] Absolute Immature Granulocytes 0.0 <=0.4 10e3/uL 12/10/2024 5:32 PM PARER [facility] Absolute NRBCs 0.0 10e3/uL 12/10/2024 5:32 PM PARER [facility] Blood STRUCTURE OF RIGHT HAND / Unknown Venipuncture / Unknown 12/10/2024 5:21 PM PARER 12/10/2024 5:25 PM PARER us Jenny De Souza MD LAB - BLOOD ORDERABLES Final Re sult UR LABORATORY [facility] Acute Care Lab [address] [facility], Room [place] [id number] [place] [address] * Treponema Abs w Reflex to RPR and Titer (12/10/2024 5:21 PM PARER) Treponema Antibody Total Nonreactive Nonreactive 12/10/2024 10:44 PM PARER SPECIALTY CORE/PROT/EN DO Blood STRUCTURE OF RIGHT HAND / Unknown Venipuncture / Unknown 12/10/2024 5:21 PM PARER 12/10/2024 5:25 PM PARER Jenny De Souza MD LAB - BLOOD ORDERABLES Final Re sult SPECIALTY CORE/PROT/ENDO Specialty Core/Prot/Endo [address] [facility], Room [address] * (ABNORMAL) Iron and iron binding capacity (12/10/2024 5:21 PM PARER) Iron 20(L) 37 - 145 ug/dL 12/11/2024 4:00 AM PARER UR LABORATORY Iron Binding Capacity 398 240 - 430 ug/dL 12/11/2024 4:00 AM PARER UR LABORATORY Iron Sat Index 5(L) 15 - 46 % 12/11/2024 4:00 AM PARER [facility] LABORATORY Blood STRUCTURE OF RIGHT HAND / Unknown Venipuncture / Unknown 12/10/2024 5:21 PM PARER 12/10/2024 5:25 PM PARER us Cameron Leach MD LAB - BLOOD ORDERABLES Final Res ult UR LABORATORY [facility] Acute Care Lab [address] [facility], [address] [phone] [place] * Ferritin (12/10/2024 5:21 PM PARER) Ferritin 15 6 - 175 ng/mL 12/11/2024 4:00 AM PARER UR LABORATORY Blood STRUCTURE OF RIGHT HAND / Unknown Venipuncture / Unknown 12/10/2024 5:21 PM PARER 12/10/2024 5:25 PM PARER us Cameron Leach MD LAB - BLOOD ORDERABLES Final Res ult UR LABORATORY [facility] Acute Care Lab [address] [facility], [address] [place] [address] [place] * (ABNORMAL) Comprehensive metabolic panel (12/10/2024 5:21 PM PARER) Sodium 136 135 - 145 mmol/L 12/10/2024 5:53 PM PARER [facility] LAB[facility]ORY Potassium 3.9 3.4 - 5.3 mmol/L 12/10/2024 5:53 PM PARER [facility] LAB[facility]ORY Carbon Dioxide (CO2) 21(L) 22 - 29 mmol/L 12/10/2024 5:53 PM PARER [facility] Anion Gap 11 7 - 15 mmol/L 12/10/2024 5:53 PM PARER [facility] Urea Nitrogen 8.4 6.0 - 20.0 mg/dL 12/10/2024 5:53 PM PARER [facility] LAB[facility]ORY Creatinine 0.51 0.51 - 0.95 mg/dL 12/10/2024 5:53 PM PARER [facility] GFR Estimate >90 >60 mL/min/1.7 3m2 12/10/2024 5:53 PM PARER [facility] LAB[facility] Comment:eGFR calculated us2020 CKD-EPI equation. Calcium 8.9 8.8 - 10.4 mg/dL 12/10/2024 5:53 PM PARER [facility] Chloride 104 98 - 107 mmol/L 12/10/2024 5:53 PM PARER [facility] Glucose 79 70 - 99 mg/dL 12/10/2024 5:53 PM PARER [facility] LAB[facility]ORY Alkaline Phosphatase 76 40 - 150 U/L 12/10/2024 5:53 PM PARER [facility] AST 21 0 - 45 U/L 12/10/2024 5:53 PM PARER [facility] LAB[facility] ALT 16 0 - 50 U/L 12/10/2024 5:53 PM PARER UR LAB[facility]ATORY Protein Total 6.5 6.4 - 8.3 g/dL 12/10/2024 5:53 PM PARER [facility] LAB[facility] Albumin 3.5 3.5 - 5.2 g/dL 12/10/2024 5:53 PM PARER [facility] LAB[facility]ORY Bilirubin Total 0.3 <=1.2 mg/dL 12/10/2024 5:53 PM PARER UR LAB[facility]ATORY Blood STRUCTURE OF RIGHT HAND / Unknown Venipuncture / Unknown 12/10/2024 5:21 PM PARER 12/10/2024 5:25 PM PARER us Jenny De Souza MD LAB - BLOOD ORDERABLES Final Re sult UR LABORATORY [facility] Lab [address] [place] [address], Room [address] [phone] [place] * Non-Stress Test - HIM Scan (12/10/2024 12:00 AM PARER) 12/10/2024 us Provider Outside PROCEDURES Final Result * ECHO COMPLETE (11/30/2024 1:46 PM PARER) Anatomical Region Laterality Modality Echocardiography 11/30/2024 1:42 PM PARER Narrative 11/30/2024 2:07 PM PARER [id number]^ZAK^YOBANI Study ID: [id number] [facility] [address] [address] Echocardiogram Name: DEANDRE LEYVA Study Date: 11/30/2024 [...] date: 04/07/2025. Gestational age: 21w5d. Delivery at: [facility]. Specific Indication: echocardiogram performed for monochorionic diamniotic [...] to the left atrium. There is laminar lkfxh-jx-fqmv shunting across the foramen ovale. Atrioventricular valves: [...] Procedure Note Luc Dominguez MD - 11/30/2024 [id number] [facility] [id number]^ZAK^YOBANI Study ID:[id number] [facility] [address] [place] [address] Echocardiogram Name: DEANDRE LEYVA Study Date: 11/30/2024 01:42 PM Patient Location: [facility] Gender: Female Patient Class:Outpatient : [id number] Age: 29 yrs Ordering Provider: YOBANI CRESPO Referring Provider: YOBANI CRESPO Performed By: Daphney Dao RDCS Reading Physician: Luc Dominguez MD Reason For Study: Monochorionic diamniotic twin gestation in secondtrimeer Data: Number of fetuses: This is a twin gestation. Due date: 04/07/2025. Gestational age: 21w5d. Delivery at: [facility]. Specific Indication: echocardiogram performed formonochorionic diamniotic twins. [...] breech position. The [facility] The heart is in left chest. [...] in to the left atrium. There is aoggstxyamwz-uc-qgev shunting across the foramen ovale. Atrioventricular valves: [...] Final * ECHO COMPLETE (11/30/2024 1:46 PM PARER) Anatomical Region Laterality Modality Echocardiography 11/30/2024 1:31 PM PARER Narrative 11/30/2024 2:02 PM PARER [id number]^ZAK^YOBANI Study ID: [id number] [facility]'s [address] [address] Echocardiogram Name: DEANDRE LEYVA Study Date: 11/30/2024 [...] date: 04/07/2025. Gestational age: 21w5d. Delivery at: [facility]. Specific Indication: echocardiogram performed for monochorionic diamniotic [...] to the left atrium. There is laminar jjbok-ju-mbga shunting across the foramen ovale. Atrioventricular valves: [...] Procedure Note Luc Dominguez MD - 11/30/2024 [id number] [facility] [id number]^ZAK^YOBANI Study ID:[id number] [facility] [place] [address] Echocardiogram Name: DEANDRE LEYVA Study Date: 11/30/2024 01:31 PM Patient Location: [facility] Gender: Female Patient Class:Outpatient : [id number] Age: 29 yrs Ordering Provider: YOBANI CRESPO Referring Provider: YOBANI CRESPO Performed By: Daphney Dao ELLA Reading Physician: Luc Dominguez MD Reason For Study: Monochorionic diamniotic twin gestation in secondtrimester Data: Number of fetuses: This is a twin gestation. Due date: 04/07/2025. Gestational age: 21w5d. Delivery at: [facility]. Specific Indication: echocardiogram performed formonochorionic diamniotic twins. [...] in to the left atrium. There is wvkssrifafkl-uc-nrwe shunting across the foramen ovale. Atrioventricular valves: [...] * [facility] Twins Comprehensive (11/14/2024 11:59 AM PARER) Anatomical Region Laterality Modality Ultrasound 11/14/2024 10:2 4 AM PARER Impressions 11/14/2024 4:40 PM PARER IMPRESSION ----- Monochorionic diamniotic twin gestation at [...] anemia polycythemia syndrome. Narrative 11/14/2024 4:40 PM PARER Comprehensive ----- Pat. Name: DEANDRE LEYVA Study Date: 11/14/2024 10:24am Pat. NO: [id number] Referring MD: PAMELA CUELLAR Site: Service Observer: Emerita Corona RDMS : 1995 Age: 29 [...] 0 lb 11 oz EFW by Hadlock ([id number]-FL) EFW discordance 30.6 % Head / Face / Neck Biometry: Jig Mill Operator 6.9 mm CM 2.6 mm Nasal bone [...] 0 lb 8 oz EFW by Hadlock (MJR-XW-QR-FL) EFW discordance 30.6 % Head / Face / Neck Biometry: Jig Mill Operator 6.8 mm CM 4.4 mm Extremities / [...] view. RVOT view. LVOT view. 3-vessel view. 0-pwfjtw-jxyfaun view. Situs. Aortic arch view. Bicaval view. [...] Thorax 4-chamber view. RVOT view. LVOT view. 6-upbdma-vudsmau view. Aortic arch view. sex: female. Fetus [...] recommendation. She was again offered referral to [place] for a second opinion/discussion about options in [...] the patient (reviewing medical records/tests), in direct ofhu-dn-hqaq contact with the patient counseling and discussing the plan of care, documenting the visit in the electronic medical record, and communicating with other health child care development specialist and/or care coordination. Please see note for details. Procedure Note Flower Amato MD - 11/14/2024 Comprehensive ----- Pat. Name: DEANDRE LEYVA Study Date: 11/14/2024 10:24am Pat. NO: [id number] Referring MD: PAMELA CUELLAR Site: Service Observer: Emerita Corona RDMS : 1995 Age: 29 [...] EFW (lb,oz) 0 lb 11oz EFW by Hadlock(JPI-GP-NV-FL) EFW discordance 30.6% Head / Face / Neck Biometry: Jig Mill Operator 6.9mm CM 2.6mm Nasal bone 7.8mm Fetus 2: BIOMETRY ----- BPD 42.9mm 19w 0dHadlock OFD 55.1mm 18w 2dNicolaides HC 156.8mm 18w 4dHadlock Cerebellum tr 18.1mm 18w 0dNicolaides Nuchal fold 3.0mm AC 128.0mm 18w 3d 15%Hadlock Femur 24.5mm 17w 3dHadlock Humerus 23.5mm 17w 2dJeanty Weight Calculation: EFW 219g 2%Hadlock EFW (lb,oz) 0 lb 8oz EFW by Hadlock(LWP-OB-BZ-FL) EFW discordance 30.6% Head / Face / Neck Biometry: Jig Mill Operator 6.8mm CM 4.4mm Extremities / Bony Struc [...] 4-chamber view. RVOT view. LVOT view.3-vessel view. 3-vmrxzl-iwuqcqa view. Situs. Aortic arch view. Bicavalview. Ductal [...] / Thorax 4-chamber view. RVOT view. LVOT view.8-brnynn-hbsbiyl view. Aortic arch view. sex: female. Fetus [...] the recommendation. She was again offered referralto [place] for a second opinion/discussion about options in [...] see the patient(reviewing medical records/tests), in direct gfio-es-jkbx contact with the patient counseling and discussingthe plan of care, documenting the visit in the electronic medical record,and communicating with other health child care development specialist and/or care coordination. Please see note [...] anemia polycythemia syndrome. us Yobani Crespo MD [facility] US ORDERABLES Edited Result - Final * [facility] Twins US OB Complete 2/3 Tri (10/19/2024 1:39 PM PARER) Anatomical Region Laterality Modality Ultrasound 10/19/2024 11:0 2 AM PARER Impressions 10/21/2024 3:34 PM PARER IMPRESSION ----- Monochorionic diamniotic twin gestation at [...] long and closed. Narrative 10/21/2024 3:34 PM PARER / Trim ----- Pat. Name: DEANDRE LEYVA Study Date: 10/19/2024 11:02am Pat. NO: [id number] Referring MD: PAMELA CUELLAR Site: Service Observer: Chantell Jarquin RDMS : 1995 Age: 29 [...] 0 lb 5 oz EFW by Hadlock (QHJ-PN-AR-FL) EFW discordance 26.5 % Head / Face / Neck Biometry: Jig Mill Operator 6.3 mm CM 2.2 mm Nasal bone [...] 0 lb 4 oz EFW by Hadlock (XJG-UG-[id number]-FL) EFW discordance 26.5 % Head / Face / Neck Biometry: Jig Mill Operator 6.7 mm CM 2.5 mm Fetus 1: [...] Heart / Thorax 4-chamber view. 3-vessel view. 6-breyhz-lbaewdf view. sex: female. Fetus 2: ANATOMY ----- [...] Profile. Nose. Maxilla. Mandible. Heart / Thorax 4-wmbxcq-jszjfdt view. Aortic arch view. Bicaval view. Ductal [...] discussed the option a referral to the [place] care center to discuss the option of [...] the patient (reviewing medical records/tests), in direct afxo-dp-govx contact with the patient during the visit counseling and discussing the plan of care and documenting the visit in the electronic medical record. Procedure Note Yobani Crespo MD - 10/22/2024 / Trim ----- Pat. Name: DEANDRE LEYVA Study Date: 10/19/2024 11:02am Pat. NO: [id number] Referring MD: PAMELA CUELLAR Site: Service Observer: Chantell Jarquin RDMS : 1995 Age: 29 [...] EFW (lb,oz) 0 lb 5oz EFW by Hadlock(PCC-XE-MP-FL) EFW discordance 26.5% Head / Face / Neck Biometry: Jig Mill Operator 6.3mm CM 2.2mm Nasal bone 4.1mm Fetus 2: BIOMETRY ----- BPD 31.4mm 15w 6dHadlock OFD 38.8mm -/-Nicolaides HC 112.9mm 15w 3dHadlock Cerebellum tr 15.8mm 15w 6dNicolaides Nuchal fold 2.1mm AC 89.7mm 15w 1d 34%Hadlock Femur 16.0mm 14w 5dHadlock Humerus 16.1mm 14w 4dJeanty Weight Calculation: EFW 113g 9%Hadlock EFW (lb,oz) 0 lb 4oz EFW by Hadlock(UHG-RN-JA-FL) EFW discordance 26.5% Head / Face / Neck Biometry: Jig Mill Operator 6.7mm CM 2.5mm Fetus 1: ANATOMY ----- [...] pellucidi. Heart / Thorax 4-chamber view. 3-vessel view.1-bmlbci-rewxejx view. sex: female. Fetus 2: ANATOMY ----- [...] Lips. Profile. Nose. Maxilla.Mandible. Heart / Thorax 2-zydyqb-wylhwbi view. Aortic archview. Bicaval view. Ductal arch [...] discussed the option a referral to the [place] care center todiscuss the option of SLFP [...] see the patient(reviewing medical records/tests), in direct dptt-mq-nvwa contact with the patient during the visitcounseling [...] appears long and closed. Pamela Cuellar MD [facility] ORDERABLES Edited Re sult - Final from Last 3 Months Insurance [facility] Advance Directives For more information, please contact: [phone] * Full Code (Latest Code Status on [...] patie nt/ legal decision maker Care Teams Decorating And Assembly Supervisor Relationship Specialty Start Date End Date No Ref-Primary, Physician PCP - General 12/04/21 Flower Amato MD [address] [place] [address] Assigned OBGYN Provider 11/22/24
--- OUTSIDE RECORDS SUMMARY | 2024-12-24 00:25 | XMS_ITS | Clinical Summary ---
[facility] Organization [facility] Address [address] [place] [address] Care Team Providers Care Naval Inspector Name Role Phone Arslan Mckoy MD Primary Care Provider Ladonna calderon Source Comments You are receiving this document as you are listed as the primary care provider,follow-up provider, or the patient has been referred to you for consultation.This is in compliance with the Medicare and[facility] EHR Incentive Program,which states Providers who transition their patient to another setting of careor provider of care or refers their patient to another provider of care shouldprovide summary care record for each transition of care or referral. [facility] Allergies No known active allergies Medications Texmrsej-SaFbq-G A-DHA w/o A ( + DHA OR) [...] Comments Blood Pressure 117/62 10/05/2018 10:40 AM COMMUNITY ORGANIZATION AIDE Pulse 76 10/05/2018 10:40 AM COMMUNITY ORGANIZATION AIDE Temperature - - Respiratory Rate - - Oxygen Saturation - - Inhaled Oxygen Concentration - - Weight 73.5 kg (162 lb) 10/05/2018 10:40 AM COMMUNITY ORGANIZATION AIDE Height 166.4 cm (5' 5.5) 10/05/2018 10:40 AM CS T Body Mass Index 26.55 10/05/2018 10:40 AM COMMUNITY ORGANIZATION AIDE Plan of Treatment Health Maintenance Due Date [...] AND HIV-1/HIV-2 ANTIBODIES Routine 09/07/2018 12:05 PM COMMUNITY ORGANIZATION AIDE Screening examination for venereal disease CHLAMYDIA & GC, URINE (14 YEARS AND OLDER) Routine 09/07/2018 11:59 AM COMMUNITY ORGANIZATION AIDE Screening examination for venereal disease from Last 3 Months or Most Recently Relevant to Health Maintenance Results * LAB HIV-1 p24 AND HIV-1/HIV-2 ANTIBODIES (09/07/2018 12:05 PM COMMUNITY ORGANIZATION AIDE) Pathologist [facility] HIV-1 p24 Ag and HIV-1/HIV-2 Ab Nonreactive Nonreactive PN SOFT 09/07/2018 12:0 5 PM COMMUNITY ORGANIZATION AIDE 09/07/2018 12:16 PM COMMUNITY ORGANIZATION AIDE Narrative PN SOFT - 09/07/2018 1:26 PM COMMUNITY ORGANIZATION AIDE Performed at [address] [address] CLIA number [id number] us Angela Lyons APRN, CNM LAB_1 Final Result Performing Organization Address [facility] Co de Phone Number SOFT [address] [place] [phone] * CHLAMYDIA & GC, URINE (09/07/2018 11:59 AM COMMUNITY ORGANIZATION AIDE) Pathologist [facility] Urine Chlamydia STD Negative Negative PN SOFT Comment: Test Performed by [employer] Regenerator Operator Mediated Amplification Results obtained from this source are not FDA approved. CLIA Number [id number] Urine N. gonnorrhoeae STD Negative Negative PN SOFT Comment: Test Performed by [employer] Regenerator Operator Mediated Amplification Results obtained from this source are not FDA approved. Performed at [facility], [address] [place] [address] CLIA Number [id number] 09/07/2018 11:5 9 AM COMMUNITY ORGANIZATION AIDE 09/07/2018 12:17 PM COMMUNITY ORGANIZATION AIDE us Angela Lyons APRN, ROSALINA LAB_1 Final Result Performing Organization Address [facility]/ZIP Co de Phone Number SOFT [address] [place] [phone] from Last 3 Months or Most Recently Relevant to Health Maintenance Insurance [facility] [address] Care Teams Naval Inspector Relationship Specialty Start Date End Date Arslan Mckoy MD PCP - General Family Practice 09/09/17
--- OUTSIDE RECORDS SUMMARY | 2024-12-24 00:26 | XMS_ITS | Encounter Summary ---
Author Organization [facility] Address [address] [place] [address] Care Team Providers Care Change Management Administrator Name Role Phone No Ref-Primary, Physician Primary Care Provider Flower Amato MD Unavailable [phone] Reason for Referral * Diagnostic Imaging Ultrasound (Routine) - Pending Review Specialty Diagnoses / Procedures Referred By Contac t Referred To Contact Radiology. 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 Procedures MFM Twins Comprehensive F/U Nicole Byrd MD [address] [place] [address] Phone: tel: fax: Referral ID Status Reason Start Date Expiration Date V isits Requested Visits Authorized [id number] Pending Review 11/30/2024 11/30/2025 1 1 DRIVER Reason for Visit * Diagnostic Imaging Ultrasound (Routine) - Pending Review Specialty Diagnoses / Procedures Referred By Contac t Referred To Contact Radiology. 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 Procedures MFM Twins Comprehensive F/U Nicole Byrd MD [address] [place] [address] Phone: tel: fax: Referral ID Status Reason Start Date Expiration Date V isits Requested Visits Authorized [id number] Pending Review 11/30/2024 11/30/2025 1 1 Encounter Details Date Type Department Care Team (Latest Contact Info) Description 12/03/2024 2:01 PM HOG DRIVER - 12/03/2024 11:59 PM HOG DRIVER Hospital Encounter [facility] [address] [place] [id number] Nicole Byrd MD [address] [place], [place] [id number] Monochorionic diamniotic twin gestation in second trimester [...] file Legal Sex Female 11:44 PM HOG DRIVER Gender Identity Not on file Sexual [...] US COMPREHENSIVE F/U Routine 12/03/2024 3:46 PM HOG DRIVER Monochorionic diamniotic twin gestation in second trimester documented in this encounter Results * MFM Twins US Comprehensive F/U (12/03/2024 3:46 PM HOG DRIVER) Anatomical Region Laterality Modality Ultrasound 12/03/2024 2:24 PM HOG DRIVER Impressions 12/04/2024 8:53 AM HOG DRIVER IMPRESSION ----- Monochorionic diamniotic twin gestation at [...] reversed a wave. Narrative 12/04/2024 8:53 AM HOG DRIVER Comp Follow Up ----- Pat. Name: HEATHER CHÁVEZ Study Date: 12/03/2024 2:24pm Pat. NO: [id number] Referring MD: NICOLE BYRD Site: Rn Referral: Piper Huynh RDMS : 1995 Age: 29 [...] 1 lb 2 oz EFW by Hadlock ([id number]) EFW discordance 32.5 % Head / Face / Neck Biometry: [employer] 7.2 mm CM 3.9 mm Thorax / [...] 0 lb 12 oz EFW by Hadlock ([id number]) EFW discordance 32.5 % Head / Face / Neck Biometry: [employer] 6.3 mm Extremities / Bony Struc Biometry: Tibia 25.7 mm 1% Valadez Fibula 26.0 mm 3% Valadez Fetus 1: ANATOMY ----- The following structures appear normal: Head / Neck Cranium. Head size. Head shape. Lateral ventricles. Midline falx. Cavum septi pellucidi. Cerebellum. Cisterna magna. Thalami. Face Lips. Profile. Nose. Heart / Thorax 4-chamber view. RVOT view. LVOT view. 2-zohfdl-lylkfqe view. Diaphragm. Abdomen Stomach. Kidneys. Bladder. Spine [...] Thorax 4-chamber view. RVOT view. LVOT view. 9-ageqjk-oelmgyg view. sex: female. Fetus 1: TTTS ASSESSMENT [...] context, reviewed case with Dr. Spangler at [facility] to discuss possible management options. [...] optimal outcomes for both babies and declines [facility] referral. After discussion regarding chances [...] the patient (reviewing medical records/tests), in direct qgwt-he-ylbi contact with the patient during the visit counseling and discussing the plan of care and documenting the visit in the electronic medical record. Procedure Note Flor Dickson MD - 12/04/2024 Comp Follow Up ----- Pat. Name: HEATHER CHÁVEZ Study Date: 12/03/2024 2:24pm Pat. NO: [id number] Referring MD: NICOLE BYRD Site: Rn Referral: Piper Huynh RDMS : 1995 Age: 29 [...] EFW (lb,oz) 1 lb 2oz EFW by Hadlock([id number]) EFW discordance 32.5% Head / Face / Neck Biometry: [employer] 7.2mm CM 3.9mm Thorax / Lungs Biometry: [...] EFW (lb,oz) 0 lb 12oz EFW by Hadlock([id number]) EFW discordance 32.5% Head / Face / Neck Biometry: [employer] 6.3mm Extremities / Bony Struc Biometry: Tibia 25.7mm 1%Valadez Fibula 26.0mm 3%Valadez Fetus 1: ANATOMY ----- The following structures appear normal: Head / Neck Cranium. Head size. Head shape.Lateral ventricles. Midline falx. Cavum septi pellucidi. Cerebellum.Cisterna magna. Thalami. Face Lips. Profile. Nose. Heart / Thorax 4-chamber view. RVOT view. LVOT view.3-nyqiwb-ntmzrzu view. Diaphragm. Abdomen Stomach. Kidneys. Bladder. Spine [...] / Thorax 4-chamber view. RVOT view. LVOT view.2-ezcmhu-mqypwyw view. sex: female. Fetus 1: TTTS ASSESSMENT [...] for twin 1. Given twin 2 is [id number] at 22 weeks, chances of intact survival [...] this context, reviewed case with Dr. Spangler [facility] to discuss possible management options. [...] optimal outcomes for both babies and declines [facility] referral.After discussion regarding chances of [...] see the patient(reviewing medical records/tests), in direct lvyd-jk-ijmd contact with the patient during the visitcounseling [...] with intermittent reversed awave. 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
--- OUTSIDE RECORDS SUMMARY | 2024-12-24 00:26 | XMS_ITS | Encounter Summary ---
Author Organization [facility] Address [address] [facility] [place] [address] Care Team Providers Care Full Service Vending Driver Name Role Phone No Ref-Primary, Physician Primary Care Provider Flower Amato MD Unavailable [phone] Reason for Visit * Reason Onset Date Comments Orders 12/02/2024 Encounter Details Date Type Department Care Team (Late st Contact Info) Description 12/02/2024 Telephone M [facility] [address] [place] [address] Beverly Gagnon, RN Orders Social [...] on file Legal Sex Female 11:44 PM SMT MACHINE OPERATOR Gender Identity Not on file [...] any order or pharmacy changes Beverly Gagnon, vamp liner Nurse Advisor on 12/02/2024 at 10:09 AM MACHINE OPERATOR documented in this encounter Plan of Treatment Not on file documented as of this encounter Visit Diagnoses Not on filedocumented in this encounter Care Teams Full Service Vending Driver Relationship Specialty Start Date End Date No Ref-Primary, Physician PCP - General 12/04/21 Flower Amato MD [address] [place] [id number] Assigned OBGYN Provider 11/22/24 documented as of this encounter
== END 2024-12-24 00:55 | disposition home or self-care (01) ==
LOC: ED 12-24 00:20
PROVIDERS: Emergency Provider Emergency Medicine
DX: R13.10 Dysphagia, unspecified (principal); K21.9 Gastro-esophageal reflux disease without esophagitis
CPT/HCPCS: 99283

== ENCOUNTER 2025-08-22 10:32 | Outpatient (CLI) | payer MEDICAID, SELFPAY ==
[2025-08-22 14:45] LABS: Bacterial Vaginosis* Negative (Negative); Candida glab/krus NOT DETECTED (No Detected)
== END 2025-08-22 10:33 | disposition home or self-care (01) ==
PROVIDERS: Visit Provider Midwife
DX: N89.8 Other specified noninflammatory disorders of vagina (principal); R35.0 Frequency of micturition; D64.9 Anemia, unspecified
CPT/HCPCS: 81513; 82728; 84702; 87086; 87481; 87661